=== PATIENT | female | born 1960 | race Asian ===

== ENCOUNTER → 2016-10-03 | Outpatient (CLI) | payer OTHER ==
[~2016-10-03] MED LIST: /BACL20TA; /LANS30GR; /ONDA4TA PO; ACYC400T PO; ADV250INH INH; ALBU17IN INH; AMIT10TA2 PO; AMOX500C; BACL10TA2 OR; BACL10TA2 PO; BENA25CA PO; BLACK COHASH PO; CALCIUM PO; CARA1TAB2 PO; Cranberry PO; DIAZ5TAB; DICY20TA11 PO; ESTR1TAB OR; EXCETAB80 PO; FIORCAP3 OR; FIORCAP7 PO; FLEX10TA2 PO; GINKGO BILOBA OR; KLS75TAB OR; L-LYSINE PO; LUTE6TAB PO; LYRI150C; LYRI200C; LYRI75CA PO; MAXA10TA20 PO; MAXA5TAB10 PO; MELOPOW; META48.54 PO; META800T82 PO; MONT10TA2 PO; MULTIVIT PO; NEXI20CA; OMEP40CA2 PO; OXYC10TA56; Omega 3 PO; PANT40TA2 PO; PERC5TAB8 OR; PHEN 25 PO; PREG100CA OR; PROM25TA PO; RELPAX; RELPAX OR; SAVELLA OR; SOMA350T OR; SUMA100T2 PO; TIZA2TA PO; TIZA2TAB3 PO; TIZA4TAB OR; TOPA25TA PO; TOPI25TA2 OR; TRAM50TA2; TRAM50TA2 OR; TRAM50TA2 PO; TRAZ50TA4 PO; TRIXAICIN TOP; ULTR50TA PO; ULTRTA OR; VALI5TAB PO; VICO5TAB OR; VIIB10TA PO; VIT D 2000 PO; VITA500019 PO; VITAMIN D PO; VITAMIN D50000 UNT; VOLT1GEL TOP; ZONI25CA2 PO; ZYRT10CA PO; [UNRECOGNIZED DRUG - CODE]; estrace cream EXT; imitrex PO; relpax PO
--- NOTE | 2016-10-10 01:36 | ECWPNPC ---
PATIENT NAME: DELIA BLOUNT : 1960 GENDER: FEMALE VISIT DATE: 10/03/2016 DISCHARGE DATE: 10/03/16 1532 VISIT LOCKED DATE TIME: PHYSICIAN: GILBERTO MEDINA RESOURCE: GILBERTO MEDINA REASON FOR APPOINTMENT 1. FOLLOW UP- HISTORY OF PRESENT ILLNESS HISTORY OF PRESENT ILLNESS: PAIN THE PATIENT DESCRIBES THE PAIN... 56 YEAR OLD FEMALE PATIENT WITH HISTORY OF CHRONIC NECK, HEADACHES, RIGHT ARM, AND RIGHT WRIST PAIN. PATIENT DESCRIBES THE PAIN ACHING, BURNING, SHARP, STABBING, TENDER, THROBBING, SORE, SHOOTING, AND HAVING IT ALL THE TIME WITH A PAIN SCORE OF 6-7/10. 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 PATIENT INJURED HER UPPER EXTREMITIES DUE TO THE REPETITIOUS MOVEMENT NEEDED WITH THE MACHINERY IN ACCORDANCE WITH HER JOB DUTIES AND RESPONSIBILITIES. PATIENT INDICATES THAT MOVING HER ARMS TOO MUCH AND/OR TOO FAST GREATLY INCREASES HER PAIN LEVELS. PATIENT REPORTS THAT HER HEADACHES ARE BEGINNING TO GET WORST. PATIENT REPORTS THAT SHE HAS MUSCLE SPASM IN THE NECK AREA AND TAKING DIAZEPAM GREATLY HELPS WITH SEVERE SPASMS. PATIENT STATES THAT LYRICA GREATLY HELPS WITH INCREASING HER MOBILITY AND FUNCTIONALITY. PATIENT REPORTS THAT HER RIGHT SHOULDER FEELS LIKE ITS ON FIRE. PATIENT REPORTS THAT SHE IS TERRIFIED TO SLEEP AT NIGHT LAYING DOWN THE WRONG WAY WILL INCREASE HER PAIN SEVERELY. PATIENT STATES THAT MOVING HER NECK TO FAST INCREASES HER PAIN. PATIENT REPORTS THAT SHE HAS TRIED PHYSICAL THERAPY IN THE PAST AND IT DID NOT WORK REALLY WELL. PATIENT DENIES UNEXPLAINABLE WEIGHT LOSS, FEVER, CHILLS, NEW CHANGES ON HER URINARY OR BOWEL CONTROL. FALL RISK SCREENING: SCREENING :NO FALLS IN THE PAST YEAR CURRENT MEDICATIONS TAKING PRILOSEC 40 MG CAPSULE DELAYED RELEASE 1 CAPSULE ORALLY BID TAKING ACYCLOVIR 400 MG TABLET 1 TABLET ORALLY TWICE A DAY PRN, NOTES: WTW TAKING ESTRACE 1 MG TABLET 1 TABLET ORALLY ONCE DAILY, NOTES: WTW TAKING ESTRACE 0.1 MG/GM CREAM 0.5 GM VAGINAL TWICE A WEEK, NOTES: WTW TAKING ALBUTEROL SULFATE HFA 108 (90 BASE) MCG/ACT AEROSOL SOLUTION 2 PUFFS NEEDED INHALATION EVERY 4 HRS TAKING DULERA 100 MCG/5MCG POWDER 1 PUFF INHALED BID TAKING OMEGA 3 1000 MG CAPSULE 1 CAPSULE ORALLY ONCE A DAY TAKING LUTEIN VISION BLEND CAPSULE ORALLY TAKING VITAMIN D3 5000 UNITS CAPSULE 1 CAPSULE ORALLY EVERY 3 DAYS, NOTES: EVERY 3 DAYS TAKING SUCRALFATE 1 GM TABLET 1 TABLET ORALLY BID QAC TAKING SUMATRIPTAN SUCCINATE 100 MG TABLET 1 TABLET NEEDED ONE TIME ORALLY TAKE AT ONSET OF MIGRAINE, MAY REPEAT TIMES ONE IN 2 HOURS IF NEEDED. MDD=2, NOTES: 1-2 TIMES PER MONTH, PAIN CLINIC TAKING BENTYL 10 MG CAPSULE 1 CAPSULE ORALLY FOUR TIMES A DAY PRN TAKING CYCLOBENZAPRINE HCL 10 MG TABLET 1 TABLET ORALLY THREE TIMES A DAY NEEDED TAKING TRAMADOL HCL 50 MG TABLET 1 TAB ORALLY Q 6 HRS PRN PAIN MDD=4, NOTES: PAIN CLINIC TAKING DIAZEPAM 5 MG TABLET 1/2 TABLET ORALLY EVERY 8 HOURS PRN SEVERE SPASM MDD=3 TAKING LYRICA 150 MG CAPSULE 1 CAPSULE ORALLY BID TAKING PROTONIX 40 MG TAB TAKE ONE TABLET BY MOUTH TWICE A DAY NOT-TAKING SINGULAIR 10 MG TABLET 1 TABLET IN THE EVENING ORALLY AT NIGHT TIME NOT-TAKING ORPHENADRINE CITRATE CR 100 MG TAB 1 TAB PO BID, NOTES: NEUROSURGEON MEDICATION LIST REVIEWED AND RECONCILED WITH THE PATIENT PAST MEDICAL HISTORY ESOPHAGEAL REFLUX ASTHMA MIGRAINE HEADACHE ARTHRITIS HERPES/1995 ABNORMAL PAP SMEAR/SEVERAL JOEL 3 W/CRYO (DR. 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 PATH REPORT: FRAGMENTS OF COLONIC MUCOSA WITH INCREASED LYMPHOPLASMA INFILTRATES OF LAMINA PROPRIA 01/2014 ANTERIOR CERVICAL DISCECTOMY AND FUSION (ACDF) BY DR. NUSRAT THOMPSON, [facility] 06/04/15 FAMILY HISTORY NO FAMILY HISTORY DOCUMENTED. SOCIAL HISTORY GENERAL: TOBACCO USE ARE YOU A:NONSMOKER LEARNING BARRIERS / SPECIAL NEEDS ORIENTED TO PLAN OF CARE: PATIENT, PAIN MANAGEMENT PATIENT, ORIENTED TO PLAN OF CARE: PATIENT, PAIN MANAGEMENT PATIENT. NEW PATIENT PAIN DIARY TODAY'S VISITNOTES FROM 0-10, WHAT LEVEL IS YOUR PAIN TODAY?0 PAIN CLINIC PFS, CLERGY, PUBLIC HEALTH REFERRALS PFS REFERRAL NEEDED?NO CLERGY REFERRAL NEEDED?NO PUBLIC HEALTH REFERRAL NEEDED?NO WAS THE PROVIDER NOTIFIED OF ANY PERTINENT INFO?NO PFS REFERRAL NEEDED?NO CLERGY REFERRAL NEEDED?NO PUBLIC HEALTH REFERRAL NEEDED?NO WAS THE PROVIDER NOTIFIED OF ANY PERTINENT INFO?NO USED TO SMOKE FOR OVER 20 YRS ON/OFF WITH 3 CIGS/DAY. HOSPITALIZATION/MAJOR DIAGNOSTIC PROCEDURE ACDF SURGERY, [facility] /15-06/07/15 REVIEW OF SYSTEMS CONSTITUTIONAL: ANY CHANGE IN YOUR MEDICAL CONDITION? NO . CHILLS NO . FEVER NO . INFECTION: DO YOU HAVE NEW INFECTIONS? NO . DO YOU HAVE HISTORY OF MRSA? NO . MUSCULOSKELETAL: ANY NEW PATTERNS OF PAIN OR NUMBNESS? NO . GASTROENTEROLOGY: ANY NEW CHANGE IN BOWEL CONTROL? NO . GENITOURINARY: ANY NEW CHANGE IN BLADDER CONTROL? NO . IS THERE A CHANCE YOU COULD BE ? NO . HEMATOLOGY/LYMPH: DO YOU TAKE ANY BLOOD THINNERS? (FOR EXAMPLE- COUMADIN, PLAVIX, AGGRENOX, PLATEL, PRADAXA, OR XARELTO) NO . WHEN WAS YOUR LAST DOSE? DATE: TIME: . NEUROLOGY: HAVE YOU FALLEN IN THE PAST 6 MONTHS? YES, PT WAS HEADING TO DR OFFICE NEAR [facility] WALKING TO DR OFFICE AND FELL IN PARKING LOT, SCRAPED KNEE AND ENDED UP WITH INFECTION. PRIMARY DOCTOR AWARE OF FALL AND KNEE AND INFECTION. . ANY NEW EXTREMITY NUMBNESS OR WEAKNESS? NO . CARDIOLOGY: DO YOU HAVE A PACEMAKER OR DEFIBRILLATOR? NO . RESPIRATORY: HAVE YOU BEEN SICK IN THE PAST WEEK? NO . FEVER NO . FLU LIKE SYMPTOMS? NO . COUGH NO . INTEGUMENTARY: DO YOU HAVE ANY RASHES OR OPEN SORES? NO . ALLERGIC/IMMUNO: ARE YOU ALLERGIC TO SHELLFISH OR IV DYE? NO . ANY NEW ALLERGIES? NO . PSYCHIATRIC: DO YOU HAVE THOUGHTS OF HURTING YOURSELF OR SOMEONE ELSE? NO . ARE YOU ABUSED, NEGLECTED, OR IN AN UNSAFE ENVIRONMENT? NO . ENDOCRINOLOGY: ARE YOU DIABETIC? NO . OTHER: DO YOU NEED ANY PRESCRIPTIONS? NO . IF YES, PLEASE LIST: ____ . ANY NEW PROBLEMS WITH YOUR MEDICATIONS? NO . WHEN DID YOU LAST EAT? ____ . WHEN DID YOU LAST DRINK? ____ . WHAT DID YOU LAST DRINK? ____ . NAME OF PERSON DRIVING YOU HOME? ____ . DO YOU HAVE ANY OTHER QUESTIONS OR CONCERNS NO . REVIEWED BY: PROVIDER: GILBERTO MEDINA MD . VITAL SIGNS WT 158 LBS, HT 60 IN, BMI 30.85 INDEX, BP 113/65 MM HG, HR 78 /MIN, RR 16 /MIN, TEMP 97.6 F, OXYGEN SAT % 96, SAFE IN ENV? (Y/N) Y, NA INITIALS TL 1356, REVIEWED BY: RANDEE. EXAMINATION : PATIENT IS ALERT O X 3 AND COOPERATIVE. PATIENT IS ABLE TO ABDUCT HER UPPER EXTREMITIES TO 90 DEGREES. HAND DETENTION DEPUTY OF THE RIGHT IS WEAKER COMPARED TO THE LEFT. PATIENT'S RIGHT ARE IS WEAKER AT FLEXION AND EXTENSION. THERE IS TENDERNESS IN THE CERVICAL AND RIGHT SHOULDER AREA. PATIENT IS ABLE TO EXTEND HER NECK TO 5 DEGREES AND FLEX AT 20 DEGREES. PATIENT IS ABLE TO MOVE HER HEAD TO THE LEFT AT 45 DEGREES AND TO THE RIGHT AT 10 DEGREES. MRI OF THE CERVICAL SPINE DONE ON 06/08/2014 SHOWS A POST C5-C6 ANTERIOR SPINAL FUSION. THERE IS A DISC PROTRUSION AT C2-C3. THERE IS SPONDYLOSIS AT C2-C3, C4-C5, AND C6-C7. ASSESSMENTS CERVICAL POST-LAMINECTOMY SYNDROME - M96.1 (PRIMARY) CERVICALGIA - M54.2 MYALGIA - M79.1 TREATMENT CERVICAL POST-LAMINECTOMY SYNDROME REFILL CYCLOBENZAPRINE HCL TABLET, 10 MG, 1 TABLET, ORALLY, THREE TIMES A DAY NEEDED, 30 DAY(S), 90, REFILLS 5 REFILL TRAMADOL HCL TABLET, 50 MG, 1 TAB, ORALLY, Q 6 HRS PRN PAIN MDD=4, 30 DAY(S), 120, REFILLS 5, NOTES: PAIN CLINIC REFILL LYRICA CAPSULE, 150 MG, 1 CAPSULE, ORALLY, BID, 30 DAYS, 60, REFILLS 5 REFILL DIAZEPAM TABLET, 5 MG, 1/2 TABLET, ORALLY, EVERY 8 HOURS PRN SEVERE SPASM MDD=3, 30 DAY(S), 10, REFILLS 0 REFILL SUMATRIPTAN SUCCINATE TABLET, 100 MG, 1 TABLET NEEDED ONE TIME, ORALLY, TAKE AT ONSET OF MIGRAINE, MAY REPEAT TIMES ONE IN 2 HOURS IF NEEDED. MDD=2, 30 DAY(S), 9, REFILLS 5, NOTES: 1-2 TIMES PER MONTH, PAIN CLINIC START SOMA TABLET, 350 MG, 1 TABLET NEEDED, ORALLY, DAILY NEEDED FOR SPASMS AND PAIN MDD1, 30 DAY(S), 15, REFILLS 0 NOTES: WE DISCUSSED SEVERAL ISSUES WITH MS. BLOUNT'S PAIN MANAGEMENT CASE. AT THIS TIME THE PATIENT WILL CONTINUE WITH THE SAME MEDICATION REGIMEN BEFORE, AND WILL ALSO TRY SOMA TO SEE IF THE MEDICATION WILL HELP WITH HER SEVERE PAIN AND SPASMS. I DISCUSSED WITH THE PATIENT THAT SHE IS A GOOD CANDIDATE FOR A TRIGGER POINT INJECTION, WE DISCUSSED THE RISK, ALTERNATIVES, AND BENEFITS AND THE PATIENT WOULD LIKE TO PROCEED. PATIENT WILL BE BOOKED PENDING APPROVAL FOR THE TPI. I DISCUSSES WITH THE PATIENT THAT I DO NOT DO REFILLS ON THE PATIENT AND IT IS IMPORTANT TO COME TO EVERY APPOINTMENT. PATIENT TO FOLLOW UP WITH ME IN 4 WEEKS. INSTRUCTIONS WERE GIVEN, QUESTIONS WERE ANSWERED, PATIENT REPORTS UNDERSTANDING AND AGREES WITH THE PLAN. I, MINDY SPARKS, DOCUMENTED THE ABOVE INFORMATION ACTING A SCRIBE FOR DR. MEDINA. I HAVE REVIEWED THE ABOVE DOCUMENT, WRITTEN BY MINDY SPARKS SCRIBE AND I VERIFY THAT IT IS ACCURATE. PROCEDURE CODES FA211 ESTABILISHED PATIENT [facility] CHARGE G8730 PAIN ASSESS POS TOOL F/U PLAN DOC G8427 DOC MEDS VERIFIED W/PT OR RE FOLLOW UP 4 WEEKS ELECTRONICALLY SIGNED BY GILBERTO MEDINA MD ON 10/09/2016 AT 08:50 PM EST DISCLAIMER : THIS IS A VISIT SUMMARY EXTRACTED FROM THE [employer] CHART. IT IS NOT A COPY OF THE [employer] PROGRESS NOTE. MTDRafita
== END ==
LOC: M PAIN 14:00
PROVIDERS: ATTEND Anesthesiology
DX: Z09 Encounter for follow-up examination after completed treatment for conditions other than malignant neoplasm (principal); G89.29 Other chronic pain; M96.1 Postlaminectomy syndrome, not elsewhere classified; M54.2 Cervicalgia; M79.7 Fibromyalgia; K21.9 Gastro-esophageal reflux disease without esophagitis; J45.909 Unspecified asthma, uncomplicated; G43.909 Migraine, unspecified, not intractable, without status migrainosus; M19.90 Unspecified osteoarthritis, unspecified site; B00.9 Herpesviral infection, unspecified; H40.9 Unspecified glaucoma; M47.812 Spondylosis without myelopathy or radiculopathy, cervical region; F32.9 Major depressive disorder, single episode, unspecified; Z79.890 Hormone replacement therapy; Z91.013 Allergy to seafood; Z91.040 Latex allergy status; Z88.1 Allergy status to other antibiotic agents; Z88.8 Allergy status to other drugs, medicaments and biological substances; Z79.891 Long term (current) use of opiate analgesic; Z79.899 Other long term (current) drug therapy

== ENCOUNTER → 2016-11-15 | Outpatient (CLI) | payer OTHER ==
[~2016-11-15] VITALS: Ht 154.9 cm; Wt 70.3 kg
[~2016-11-15] MED LIST changes: +ALBU83IN INH; +CYCL10TA PO; +DULE100A INH; +FLAX1300 PO; +LIDOCAINE 2% INJ 100 MG/5 ML SDV (FOR ANES.) As Ordered ONE; +LUTE10TA PO; +MULT1TAB18 PO; +NS 1,000 ML IV SCH; +PROPOFOL 200 MG/20 ML VIAL As Ordered ONE; +VITA2000 PO
--- NOTE | 2016-11-15 12:01 | ROOR ---
Patient Name: Kylie Andres Procedure Date: 11/15/2016 11:46 AM Date of : 1960 Age: 56 Room: [facility] Gender: Female Note Status: Finalized Procedure: Upper GI endoscopy + Hayes Ph Probe Placement Indications: Heartburn, Failure to respond to medical treatment Providers: Bryce Lynn MD Referring MD: Chyna Crawford [facility] Requesting Provider: Medicines: Monitored Anesthesia Care Complications: No immediate complications. Procedure: Pre-Anesthesia Assessment: - The heart rate, respiratory rate, oxygen saturations, blood pressure, adequacy of pulmonary ventilation, and response to care were monitored throughout the procedure. The Endoscope was introduced through the mouth, and advanced to the second part of duodenum. The upper GI endoscopy was accomplished without difficulty. The patient tolerated the procedure well. Findings: The Z-line was regular and was found 35 cm from the incisors. The exam of the esophagus was otherwise normal. No other significant abnormalities were identified in a careful examination of the stomach. The exam of the duodenum was otherwise normal. The HAYES capsule with delivery system was introduced through the mouth and advanced into the esophagus, such that the HAYES pH capsule was positioned 29 cm from the incisors. The HAYES pH capsule was then deployed and attached to the esophageal mucosa. The delivery system was then withdrawn. Endoscopy was utilized for probe placement and diagnostic evaluation. The exam was otherwise without abnormality. Impression: - Z-line regular, 35 cm from the incisors. - The examination was otherwise normal. - The HAYES pH capsule was deployed. - No specimens collected. - The examination was otherwise normal. Recommendation: - Patient has a contact number available for emergencies. The signs and symptoms of potential delayed complications were discussed with the patient. Return to normal activities tomorrow. Written discharge instructions were provided to the patient. - Resume regular diet. - Discharge patient to home. - Continue present medications. - Follow an antireflux regimen. - Return to referring physician. - The findings and recommendations were discussed with the patient's family. Bryce Lynn MD Bryce Lynn MD 11/15/2016 12:00:39 PM This report has been signed electronically. Number of Addenda: 0 Note Initiated On: 11/15/2016 11:46 AM Estimated Blood Loss: Estimated blood loss: none.
[2016-11-15 12:35] VITALS: BP 114/67
== END | disposition home or self-care (01) ==
LOC: M OPP 11:08
PROVIDERS: ATTEND Internal Medicine Gastroenterology
DX: R12 Heartburn (principal); K58.9 Irritable bowel syndrome, unspecified; M19.90 Unspecified osteoarthritis, unspecified site; M79.7 Fibromyalgia; J45.909 Unspecified asthma, uncomplicated; G47.30 Sleep apnea, unspecified; B00.9 Herpesviral infection, unspecified; H40.9 Unspecified glaucoma; Z79.899 Other long term (current) drug therapy; Z79.52 Long term (current) use of systemic steroids; Z88.8 Allergy status to other drugs, medicaments and biological substances; Z88.1 Allergy status to other antibiotic agents; Z88.5 Allergy status to narcotic agent; Z91.013 Allergy to seafood; Z91.040 Latex allergy status; Z87.891 Personal history of nicotine dependence

== ENCOUNTER → 2016-11-21 | Outpatient (CLI) | payer OTHER ==
[~2016-11-21] MED LIST changes: -LIDOCAINE 2% INJ 100 MG/5 ML SDV (FOR ANES.) As Ordered ONE; -NS 1,000 ML IV SCH; +ORPH-8 PO; +PEPC1TAB4 PO; +PRED20TA PO; -PROPOFOL 200 MG/20 ML VIAL As Ordered ONE; +VITA1CAP2 PO
--- NOTE | 2016-11-28 01:30 | ECWPNPC ---
PATIENT NAME: DELIA BLOUNT : 1960 GENDER: FEMALE VISIT DATE: 11/21/2016 DISCHARGE DATE: 11/21/16 1456 VISIT LOCKED DATE TIME: PHYSICIAN: GILBERTO MEDINA RESOURCE: GILBERTO MEDINA REASON FOR APPOINTMENT 1. W/C NECK AND R WRIST HISTORY OF PRESENT ILLNESS GENERAL: 56 YEAR OLD FEMALE PATIENT WITH HISTORY OF CHRONIC NECK, HEADACHES, RIGHT ARM, AND RIGHT WRIST PAIN. PATIENT DESCRIBES THE PAIN ACHING, BURNING, TENDER, THROBBING, SORE, AND HAVING IT ALL THE TIME, WITH A SHARP, STABBING, AND SHOOTING PAIN COMING AND GOING WITH A PAIN SCORE OF 6-7/10 ON TODAY'S VISIT.. 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 PATIENT INJURED HER UPPER EXTREMITIES DUE TO THE REPETITIOUS MOVEMENT NEEDED WITH THE MACHINERY IN ACCORDANCE WITH HER JOB DUTIES AND RESPONSIBILITIES. PATIENT STATES THAT SHE HAS RADIATING PAIN FROM HER NECK DOWN TO BOTH ARMS. PATIENT REPORTS THAT SHE IS WAKING UP EVERY 40 TO 50 MINUTES DUE TO THE PAIN AND SPASMS IN THE NECK. PATIENT REPORTS THAT SHE IS WAKING UP EXHAUSTED IN THE MORNING DUE TO THE LACK OF SLEEP. PATIENT STATES THAT SHE IS GETTING HEADACHES EVERYDAY AND SOMETIMES CAUSES NAUSEA, DIZZINESS, AND THE LIGHT HURTS HER EYES. PATIENT STATES THAT WHEN SHE DOES GET A MIGRAINE TAKING SUMATRIPTAN WILL SOMETIMES HELP TO KNOCK IT DOWN TO A HEADACHE. PATIENT STATES THAT SHE IS TAKING LYRICA AND TRAMADOL FOR THE PAIN. PATIENT REPORTS THAT TAKING DIAZEPAM APPEARS TO ONLY HELP DURING THE DAY AND NOT AT NIGHT. PATIENT IS UNSURE HOW CYCLOBENZAPRINE IS WORKING FOR HER. PATIENT REPORTS THAT SHE HAS TRIED PHYSICAL THERAPY IN THE [place]ASS AND DID NOT FEEL OR SEE AND IMPROVEMENT IN HER QUALITY OF LIFE. PATIENT DENIES UNEXPLAINABLE WEIGHT LOSS, FEVER, CHILLS, NEW CHANGES ON HER URINARY OR BOWEL CONTROL. HISTORY OF PRESENT ILLNESS: PAIN THE PATIENT DESCRIBES THE PAIN... FALL RISK SCREENING: SCREENING :NO FALLS IN THE PAST YEAR CURRENT MEDICATIONS TAKING CYCLOBENZAPRINE HCL 10 MG TABLET 1 TABLET ORALLY THREE TIMES A DAY NEEDED TAKING TRAMADOL HCL 50 MG TABLET 1 TAB ORALLY Q 6 HRS PRN PAIN MDD=4, NOTES: PAIN CLINIC TAKING LYRICA 150 MG CAPSULE 1 CAPSULE ORALLY BID TAKING DIAZEPAM 5 MG TABLET 1/2 TABLET ORALLY EVERY 8 HOURS PRN SEVERE SPASM MDD=3 TAKING SUMATRIPTAN SUCCINATE 100 MG TABLET 1 TABLET NEEDED ONE TIME ORALLY TAKE AT ONSET OF MIGRAINE, MAY REPEAT TIMES ONE IN 2 HOURS IF NEEDED. MDD=2, NOTES: 1-2 TIMES PER MONTH, PAIN CLINIC TAKING ACYCLOVIR 400 MG TABLET 1 TABLET ORALLY TWICE A DAY PRN, NOTES: WTW TAKING ESTRACE 1 MG TABLET 1 TABLET ORALLY ONCE DAILY, NOTES: WTW TAKING ESTRACE 0.1 MG/GM CREAM 0.5 GM VAGINAL TWICE A WEEK, NOTES: WTW TAKING ALBUTEROL SULFATE HFA 108 (90 BASE) MCG/ACT AEROSOL SOLUTION 2 PUFFS NEEDED INHALATION EVERY 4 HRS TAKING DULERA 100 MCG/5MCG POWDER 1 PUFF INHALED BID TAKING OMEGA 3 1000 MG CAPSULE 1 CAPSULE ORALLY ONCE A DAY TAKING LUTEIN VISION BLEND CAPSULE ORALLY TAKING VITAMIN D3 5000 UNITS CAPSULE 1 CAPSULE ORALLY EVERY 3 DAYS, NOTES: EVERY 3 DAYS TAKING BENTYL 10 MG CAPSULE 1 CAPSULE ORALLY FOUR TIMES A DAY PRN TAKING PROTONIX 40 MG TAB TAKE ONE TABLET BY MOUTH TWICE A DAY TAKING SUCRALFATE 1 GRAM TAB TAKE ONE TABLET BY MOUTH TWICE A DAY BEFORE MEALS DISCONTINUED SOMA 350 MG TABLET 1 TABLET NEEDED ORALLY DAILY NEEDED FOR SPASMS AND PAIN MDD1 DISCONTINUED PRILOSEC 40 MG CAPSULE DELAYED RELEASE 1 CAPSULE ORALLY BID DISCONTINUED SUCRALFATE 1 GM TABLET 1 TABLET ORALLY BID QAC DISCONTINUED SINGULAIR 10 MG TABLET 1 TABLET IN THE EVENING ORALLY AT NIGHT TIME DISCONTINUED ORPHENADRINE CITRATE CR 100 MG TAB 1 TAB PO BID, NOTES: NEUROSURGEON MEDICATION LIST REVIEWED AND RECONCILED WITH THE PATIENT PAST MEDICAL HISTORY ESOPHAGEAL REFLUX ASTHMA MIGRAINE HEADACHE ARTHRITIS ABNORMAL PAP SMEAR/SEVERAL JOEL 3 W/CRYO (DR. 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 PATH REPORT: FRAGMENTS OF COLONIC MUCOSA WITH INCREASED LYMPHOPLASMA INFILTRATES OF LAMINA PROPRIA 01/2014 ANTERIOR CERVICAL DISCECTOMY AND FUSION (ACDF) BY DR. NUSRAT THOMPSON, [facility] 06/04/15 FAMILY HISTORY NO FAMILY HISTORY DOCUMENTED. SOCIAL HISTORY GENERAL: TOBACCO USE ARE YOU A:NONSMOKER LEARNING BARRIERS / SPECIAL NEEDS ORIENTED TO PLAN OF CARE: PATIENT, PAIN MANAGEMENT PATIENT, ORIENTED TO PLAN OF CARE: PATIENT, PAIN MANAGEMENT PATIENT. NEW PATIENT PAIN DIARY TODAY'S VISITNOTES FROM 0-10, WHAT LEVEL IS YOUR PAIN TODAY?0 PAIN CLINIC PFS, CLERGY, PUBLIC HEALTH REFERRALS PFS REFERRAL NEEDED?NO CLERGY REFERRAL NEEDED?NO PUBLIC HEALTH REFERRAL NEEDED?NO WAS THE PROVIDER NOTIFIED OF ANY PERTINENT INFO?NO PFS REFERRAL NEEDED?NO CLERGY REFERRAL NEEDED?NO PUBLIC HEALTH REFERRAL NEEDED?NO WAS THE PROVIDER NOTIFIED OF ANY PERTINENT INFO?NO USED TO SMOKE FOR OVER 20 YRS ON/OFF WITH 3 CIGS/DAY. HOSPITALIZATION/MAJOR DIAGNOSTIC PROCEDURE ACDF SURGERY, [facility] 925/15-06/07/15 REVIEW OF SYSTEMS CONSTITUTIONAL: ANY CHANGE IN YOUR MEDICAL CONDITION? NO . CHILLS NO . FEVER NO . INFECTION: DO YOU HAVE NEW INFECTIONS? NO . DO YOU HAVE HISTORY OF MRSA? NO . MUSCULOSKELETAL: ANY NEW PATTERNS OF PAIN OR NUMBNESS? NO . GASTROENTEROLOGY: ANY NEW CHANGE IN BOWEL CONTROL? NO . GENITOURINARY: ANY NEW CHANGE IN BLADDER CONTROL? NO . IS THERE A CHANCE YOU COULD BE ? NO . HEMATOLOGY/LYMPH: DO YOU TAKE ANY BLOOD THINNERS? (FOR EXAMPLE- COUMADIN, PLAVIX, AGGRENOX, PLATEL, PRADAXA, OR XARELTO) NO . WHEN WAS YOUR LAST DOSE? DATE: TIME: . NEUROLOGY: HAVE YOU FALLEN IN THE PAST 6 MONTHS? NO . ANY NEW EXTREMITY NUMBNESS OR WEAKNESS? NO . CARDIOLOGY: DO YOU HAVE A PACEMAKER OR DEFIBRILLATOR? NO . RESPIRATORY: HAVE YOU BEEN SICK IN THE PAST WEEK? NO . FEVER NO . FLU LIKE SYMPTOMS? NO . COUGH NO . INTEGUMENTARY: DO YOU HAVE ANY RASHES OR OPEN SORES? NO . ALLERGIC/IMMUNO: ARE YOU ALLERGIC TO SHELLFISH OR IV DYE? NO . ANY NEW ALLERGIES? NO . PSYCHIATRIC: DO YOU HAVE THOUGHTS OF HURTING YOURSELF OR SOMEONE ELSE? NO . ARE YOU ABUSED, NEGLECTED, OR IN AN UNSAFE ENVIRONMENT? NO . ENDOCRINOLOGY: ARE YOU DIABETIC? NO . OTHER: DO YOU NEED ANY PRESCRIPTIONS? YES . IF YES, PLEASE LIST: TRAMADOL, DIAZEPAM . ANY NEW PROBLEMS WITH YOUR MEDICATIONS? NO . WHEN DID YOU LAST EAT? ____ . WHEN DID YOU LAST DRINK? ____ . WHAT DID YOU LAST DRINK? ____ . NAME OF PERSON DRIVING YOU HOME? ____ . DO YOU HAVE ANY OTHER QUESTIONS OR CONCERNS NO . REVIEWED BY: PROVIDER: GILBERTO MEDINA MD . VITAL SIGNS WT 166.6 LBS, HT 60 IN, BMI 32.53 INDEX, BP 113/67 MM HG, HR 69 /MIN, RR 18 /MIN, TEMP 99.3 F, OXYGEN SAT % 94, NA INITIALS [id number], REVIEWED BY: CM. EXAMINATION GENERAL: PATIENT IS ALERT O X 3 AND COOPERATIVE. PATIENT IS ABLE TO EXTEND HER NECK TO 5 DEGREES WITH RESTRICTION OF MOVEMENT AND FLEX TO 30 DEGREES. PATIENT IS ABLE TO ROTATE HER NECK TO THE RIGHT AT 10 DEGREES AND TO THE LEFT AT 10 DEGREES. PATIENT IS ONLY ABLE TO ABDUCT HER UPPER EXTREMITIES TO SHOULDER LEVEL. THERE IS CERVICAL TENDERNESS WITH BANDS OF TISSUES, RESTRICTION OF MOVEMENT, AND PRESENCE OF TRIGGER POINTS. MRI OF THE CERVICAL SPINE DONE ON 06-08-2014 SHOWS CERVICAL SPONDYLOSIS AND FACET ARTHROPATHY. ASSESSMENTS MYALGIA - M79.1 (PRIMARY) CERVICAL POST-LAMINECTOMY SYNDROME - M96.1 CERVICALGIA - M54.2 TREATMENT MYALGIA NOTES: WE DISCUSSED SEVERAL ISSUES WITH MS. BLOUNT'S PAIN MANAGEMENT CASE. I WAS WITH THE PATIENT MORE THAN 30 MINUTES IN TODAY'S ENCOUNTER, MORE THAN HALF THE TIME WAS DEDICATED TO DISCUSSING ALTERNATIVES, COUNSELING, AND ENSURING THE PATIENT UNDERSTOOD HOW WE ARE PROCEEDING FORWARD WITH HER PAIN MANAGEMENT CASE. AT THIS TIME THE PATIENT WILL RECEIVE A REFILL OF DIAZEPAM THE PATIENT IS USING THIS MEDICATION FOR SEVERE SPASMS. AFTER EXAMINING THE PATIENT SHE IS A GOOD CANDIDATE FOR A TRIGGER POINT INJECTION. I DISCUSSED WITH THE PATIENT FROM THE LAST VISIT, I REQUESTED TPI BUT WORKERS COMP DENIED IT, BECAUSE WE ALSO NEEDS TO HAVE HER IN AN ACTIVE THERAPY PROGRAM. I INFORMED THE PATIENT THAT I WILL ALSO REQUEST FOR HER TO BEGIN PHYSICAL THERAPY WELL. PATIENT WILL HAVE PHYSICAL THERAPY FOR 6 WEEKS, 3 TIMES A WEEK. WE DISCUSSED THE RISK, BENEFITS, AND ALTERNATIVES AND THE PATIENT WOULD LIKE TO PROCEED. PATIENT WILL BE BOOKED FOR A TPI PENDING APPROVAL. DISCUSSED WITH THE PATIENT THAT IF THE TPI DOES NOT WORK, I WOULD LIKE TO TRY A RIGHT CERVICAL FACET BLOCK, DEPENDING ON THE X-RAY REVIEW, LEVELS C2-C4. PATIENT TO FOLLOW UP WITH ME IN 6 WEEKS. INSTRUCTIONS WERE GIVEN, QUESTIONS WERE ANSWERED, PATIENT REPORTS UNDERSTANDING AND AGREES WITH THE PLAN. I, MINDY SPARKS, DOCUMENTED THE ABOVE INFORMATION ACTING A SCRIBE FOR DR. MEDINA. I HAVE REVIEWED THE ABOVE DOCUMENT, WRITTEN BY MINDY SPARKS SCRIBE AND I VERIFY THAT IT IS ACCURATE. CERVICAL POST-LAMINECTOMY SYNDROME REFILL DIAZEPAM TABLET, 5 MG, 1/2 TABLET, ORALLY (CODE D FOR CHRONIC PAIN ), EVERY 8 HOURS PRN SEVERE SPASM MDD=1, 30 DAY(S), 20, REFILLS 0 PROCEDURES PN WORKMANS' COMP OPINION IN YOUR OPINION, WAS THE INCIDENT THAT THE PATIENT DESCRIBED THE COMPETENT MEDICAL CAUSE OF THIS INJURY/ILLNESS? YES ARE THE PATIENT'S COMPLAINTS CONSISTENT WITH HIS/HER HISTORY OF THE INJURY/ILLNESS? YES IS THE PATIENT'S HISTORY OF THE INJURY/ILLNESS CONSISTENT WITH YOUR OBJECTIVE FINDING? YES WHAT IS THE PERCENTAGE OF TEMPORARY IMPAIRMENT? TOTAL = 100% IS THE PATIENT WORKING? NO DOCTOR ON SITE: GILBERTO ESCOBAR MD PROCEDURE CODES FA211 ESTABILISHED PATIENT [facility] FACILITY CHARGE G8730 PAIN ASSESS POS TOOL F/U PLAN DOC G8427 DOC MEDS VERIFIED W/PT OR RE DISPOSITION & COMMUNICATION FOLLOW UP TPI PENDING APPROVAL ELECTRONICALLY SIGNED BY GILBERTO MEDINA MD ON 11/27/2016 AT 01:52 PM EDT DISCLAIMER : THIS IS A VISIT SUMMARY EXTRACTED FROM THE [employer] CHART. IT IS NOT A COPY OF THE [employer] PROGRESS NOTE. MTDD
== END ==
LOC: M PAIN 13:00
PROVIDERS: ATTEND Anesthesiology
DX: Z09 Encounter for follow-up examination after completed treatment for conditions other than malignant neoplasm (principal); G89.29 Other chronic pain; M79.1 Myalgia; M96.1 Postlaminectomy syndrome, not elsewhere classified; M54.2 Cervicalgia; G43.909 Migraine, unspecified, not intractable, without status migrainosus; K21.9 Gastro-esophageal reflux disease without esophagitis; J45.909 Unspecified asthma, uncomplicated; M19.90 Unspecified osteoarthritis, unspecified site; F32.9 Major depressive disorder, single episode, unspecified; Z91.018 Allergy to other foods; Z91.040 Latex allergy status; Z88.5 Allergy status to narcotic agent; Z88.8 Allergy status to other drugs, medicaments and biological substances; Z79.891 Long term (current) use of opiate analgesic; Z79.899 Other long term (current) drug therapy

== ENCOUNTER 2016-11-29 13:50 | Emergency (ER) | payer OTHER ==
[~2016-11-29] VITALS: Ht 154.9 cm; Wt 70.3 kg
[~2016-11-29 13:50] MED LIST changes: -ORPH-8 PO; -PEPC1TAB4 PO; -PRED20TA PO; -VITA1CAP2 PO
[2016-11-29] MEDS ORDERED: ORPH-8 PO (14:15)
[2016-11-29] MEDS ORDERED: VITA1CAP2 PO (14:15)
[2016-11-29] MEDS ORDERED: PEPC1TAB4 PO (16:45)
[2016-11-29] MEDS ORDERED: PRED20TA PO (16:45)
[2016-11-29 16:59] VITALS: BP 110/68
== END 2016-11-29 16:59 | disposition home or self-care (01) ==
LOC: M ED 15:34
DX: M54.12 Radiculopathy, cervical region (principal); M25.531 Pain in right wrist; M25.532 Pain in left wrist; K21.9 Gastro-esophageal reflux disease without esophagitis; K44.9 Diaphragmatic hernia without obstruction or gangrene; M79.7 Fibromyalgia; Z91.013 Allergy to seafood; Z88.8 Allergy status to other drugs, medicaments and biological substances; Z88.5 Allergy status to narcotic agent; Z88.1 Allergy status to other antibiotic agents; Z79.899 Other long term (current) drug therapy; Z79.51 Long term (current) use of inhaled steroids

== ENCOUNTER → 2016-12-04 | Outpatient (REF) | payer OTHER ==
[~2016-12-04] MED LIST changes: +ORPH-8 PO; +PEPC1TAB4 PO; +PRED20TA PO; +VITA1CAP2 PO
== END ==
LOC: M SFHCPLAZ 10:13
PROVIDERS: ATTEND Family Medicine
DX: K92.1 Melena (principal)

== ENCOUNTER 2016-12-07 13:43 | Outpatient (RCR) | payer OTHER | END 2016-12-08 | LOC: M OT 13:43 | PROVIDERS: ATTEND Family Medicine | DX: Z51.89 Encounter for other specified aftercare (principal); G56.03 Carpal tunnel syndrome, bilateral upper limbs ==

== ENCOUNTER → 2016-12-14 | Outpatient (CLI) | payer OTHER ==
--- NOTE | 2016-12-14 15:39 | REP ---
BILATERAL WRIST, EIGHT VIEWS: LEFT WRIST HISTORY: Left wrist pain. There is no acute fracture or dislocation. The joint spaces are normal in appearance. A small cyst is present in the greater multangular bone. IMPRESSION: There is no acute fracture or dislocation. RIGHT WRIST, FOUR VIEWS: There is no acute fracture or dislocation. The joint spaces are normal in appearance. IMPRESSION: There is no acute fracture or dislocation. Signed by Karl Courtney MD 12/14/2016 03:41 P
== END ==
LOC: M RAD 14:53
PROVIDERS: ATTEND Family Medicine
DX: M25.532 Pain in left wrist (principal)

== ENCOUNTER → 2017-01-03 | Outpatient (CLI) | payer OTHER ==
--- NOTE | 2017-01-08 00:48 | ECWPNPC ---
PATIENT NAME: DELIA BLOUNT : 1960 GENDER: FEMALE VISIT DATE: 01/03/2017 DISCHARGE DATE: 01/03/17 1551 VISIT LOCKED DATE TIME: PHYSICIAN: GILBERTO MEDINA RESOURCE: GILBERTO MEDINA REASON FOR APPOINTMENT 1. W/C NECK, VIEIRA, RT WRIST AND ARM PAIN HISTORY OF PRESENT ILLNESS HISTORY OF PRESENT ILLNESS: PAIN THE PATIENT DESCRIBES THE PAIN... 56 YEAR OLD MALE PATIENT WITH HISTORY OF CHRONIC NECK, RIGHT WRIST AND RIGHT ARM PAIN. PATIENT DESCRIBES THE PAIN ACHING, BURNING, SHARP, STABBING, TENDER, THROBBING, SORE, AND HAVING IT ALL THE TIME WITH A PAIN SCORE OF 6-7/10. 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 CURRENTLY THE PATIENT IS USING CYCLOBENZAPRINE, LYRICA AND DIAZEPAM AND STATES THAT THE MEDICATION KEEPS HER MOBILE AND FUNCTIONAL AND DECREASES HER PAIN. PATIENT HAS HAD TWO NECK SURGERIES. MRS. BLOUNT STATES THAT PHYSICAL THERAPY HAS NOT AIDED IN MOBILITY OR FUNCTIONALITY OR A DECREASES IN PAIN. MRS. BLOUNT STATES THAT TURNING HER HEAD OR MOVEMENT OF HER ARMS INCREASES THE PAIN IN THE NECK AND AT THIS TIME REST AND MEDICATION AIDS IN PAIN RELIEF. PATIENT REPORTS GETTING OVER 25 HEADACHES A MONTH, WITH SENSITIVITY TO LIGHT AND SOUND. PATIENT REPORTS TRYING NUMEROUS MEDICATIONS FOR THE HEADACHES WITH LITTLE TO NO RELIEF. PATIENT DENIES UNEXPLAINABLE WEIGHT LOSS, FEVER, CHILLS, NEW CHANGES ON HER URINARY OR BOWEL CONTROL. FALL RISK SCREENING: SCREENING :NO FALLS IN THE PAST YEAR CURRENT MEDICATIONS TAKING TRAMADOL HCL 50 MG TABLET 1 TAB ORALLY Q 6 HRS PRN PAIN MDD=4 TAKING DIAZEPAM 5 MG TABLET 1/2 TABLET ORALLY (CODE D FOR CHRONIC PAIN ) EVERY 8 HOURS PRN SEVERE SPASM MDD=1 TAKING CYCLOBENZAPRINE HCL 10 MG TABLET 1 TABLET ORALLY THREE TIMES A DAY NEEDED TAKING LYRICA 150 MG CAPSULE 1 CAPSULE ORALLY BID TAKING SUMATRIPTAN SUCCINATE 100 MG TABLET 1 TABLET NEEDED ONE TIME ORALLY TAKE AT ONSET OF MIGRAINE, MAY REPEAT TIMES ONE IN 2 HOURS IF NEEDED. MDD=2, NOTES: 1-2 TIMES PER MONTH, PAIN CLINIC TAKING ESTRACE 1 MG TABLET 1 TABLET ORALLY ONCE DAILY, NOTES: WTW TAKING ESTRACE 0.1 MG/GM CREAM 0.5 GM VAGINAL TWICE A WEEK, NOTES: WTW TAKING ALBUTEROL SULFATE HFA 108 (90 BASE) MCG/ACT AEROSOL SOLUTION 2 PUFFS NEEDED INHALATION EVERY 4 HRS TAKING DULERA 100 MCG/5MCG POWDER 1 PUFF INHALED BID TAKING OMEGA 3 1000 MG CAPSULE 1 CAPSULE ORALLY ONCE A DAY TAKING LUTEIN VISION BLEND CAPSULE ORALLY TAKING VITAMIN D3 5000 UNITS CAPSULE 1 CAPSULE ORALLY EVERY 3 DAYS, NOTES: EVERY 3 DAYS TAKING PROTONIX 40 MG TAB TAKE ONE TABLET BY MOUTH TWICE A DAY TAKING ASPIRIN 81 MG TABLET CHEWABLE 1 TABLET ORALLY ONCE A DAY NOT-TAKING FAMOTIDINE 20 MG TABLET 1 TABLET AT BEDTIME ORALLY ONCE A DAY NOT-TAKING NAPROXEN 500 MG TABLET 1 TABLET NEEDED ORALLY EVERY 12 HRS NOT-TAKING PREDNISONE 20 MG TABLET 1 TABLET ORALLY ONCE A DAY NOT-TAKING SUCRALFATE 1 GRAM TAB TAKE ONE TABLET BY MOUTH TWICE A DAY BEFORE MEALS NOT-TAKING ACYCLOVIR 400 MG TABLET 1 TABLET ORALLY THREE TIMES A DAY NOT-TAKING BENTYL 10 MG CAPSULE 1 CAPSULE ORALLY FOUR TIMES A DAY PRN MEDICATION LIST REVIEWED AND RECONCILED WITH THE PATIENT PAST MEDICAL HISTORY ESOPHAGEAL REFLUX ASTHMA MIGRAINE HEADACHE ARTHRITIS ABNORMAL PAP SMEAR/SEVERAL JOEL 3 W/CRYO (DR. 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 PATH REPORT: FRAGMENTS OF COLONIC MUCOSA WITH INCREASED LYMPHOPLASMA INFILTRATES OF LAMINA PROPRIA 01/2014 ANTERIOR CERVICAL DISCECTOMY AND FUSION (ACDF) BY DR. NUSRAT THOMPSON, [facility] 06/04/15 FAMILY HISTORY FATHER: ALIVE MOTHER: , ANEURYSM, OSTEOPOROSIS SIBLINGS: ALIVE, HEART DISEASE SON(S): ALIVE 1 BROTHER(S) , 2 SISTER(S) - HEALTHY. 2 SON(S) - HEALTHY. SOCIAL HISTORY GENERAL: PAIN CLINIC PFS, CLERGY, PUBLIC HEALTH REFERRALS CLERGY REFERRAL NEEDED?NO WAS THE PROVIDER NOTIFIED OF ANY PERTINENT INFO?NO PFS REFERRAL NEEDED?NO PUBLIC HEALTH REFERRAL NEEDED?NO PATIENT: ____. USED TO SMOKE FOR OVER 20 YRS ON/OFF WITH 3 CIGS/DAY. HOSPITALIZATION/MAJOR DIAGNOSTIC PROCEDURE ACDF SURGERY, [facility] /15-06/07/15 REVIEW OF SYSTEMS CONSTITUTIONAL: ANY CHANGE IN YOUR MEDICAL CONDITION? NO . CHILLS NO . FEVER NO . INFECTION: DO YOU HAVE NEW INFECTIONS? NO . DO YOU HAVE HISTORY OF MRSA? NO . MUSCULOSKELETAL: ANY NEW PATTERNS OF PAIN OR NUMBNESS? YES SHOOTING PAIN IN HANDS . GASTROENTEROLOGY: ANY NEW CHANGE IN BOWEL CONTROL? NO . GENITOURINARY: ANY NEW CHANGE IN BLADDER CONTROL? NO . IS THERE A CHANCE YOU COULD BE ? NO . HEMATOLOGY/LYMPH: DO YOU TAKE ANY BLOOD THINNERS? (FOR EXAMPLE- COUMADIN, PLAVIX, AGGRENOX, PLATEL, PRADAXA, OR XARELTO) NO . WHEN WAS YOUR LAST DOSE? DATE: TIME: . NEUROLOGY: HAVE YOU FALLEN IN THE PAST 6 MONTHS? NO . ANY NEW EXTREMITY NUMBNESS OR WEAKNESS? NO . CARDIOLOGY: DO YOU HAVE A PACEMAKER OR DEFIBRILLATOR? NO . RESPIRATORY: HAVE YOU BEEN SICK IN THE PAST WEEK? NO . FEVER NO . FLU LIKE SYMPTOMS? NO . COUGH NO . INTEGUMENTARY: DO YOU HAVE ANY RASHES OR OPEN SORES? NO . ALLERGIC/IMMUNO: ARE YOU ALLERGIC TO SHELLFISH OR IV DYE? NO . ANY NEW ALLERGIES? NO . PSYCHIATRIC: DO YOU HAVE THOUGHTS OF HURTING YOURSELF OR SOMEONE ELSE? NO . ARE YOU ABUSED, NEGLECTED, OR IN AN UNSAFE ENVIRONMENT? NO . ENDOCRINOLOGY: ARE YOU DIABETIC? NO . OTHER: DO YOU NEED ANY PRESCRIPTIONS? NO . IF YES, PLEASE LIST: ____ . ANY NEW PROBLEMS WITH YOUR MEDICATIONS? NO . WHEN DID YOU LAST EAT? ____ . WHEN DID YOU LAST DRINK? ____ . WHAT DID YOU LAST DRINK? ____ . NAME OF PERSON DRIVING YOU HOME? ____ . DO YOU HAVE ANY OTHER QUESTIONS OR CONCERNS NO . REVIEWED BY: PROVIDER: GILBERTO MEDINA MD . VITAL SIGNS WT 169.0 LBS, HT 60 IN, BMI 33.00 INDEX, BP 112/71 MM HG, HR 74 /MIN, RR 16 /MIN, TEMP 98.7 F, OXYGEN SAT % 96%, NA INITIALS TL 1331. EXAMINATION : PATIENT IS ALERT O X 3 AND COOPERATIVE. PATIENT IS ABLE TO EXTEND HER NECK TO 5 DEGREES WITH RESTRICTION OF MOVEMENT AND FLEX TO 30 DEGREES. PATIENT IS ABLE TO ROTATE HER NECK TO THE RIGHT AT 10 DEGREES AND TO THE LEFT AT 10 DEGREES. PATIENT IS ONLY ABLE TO ABDUCT HER UPPER EXTREMITIES TO SHOULDER LEVEL. THERE IS CERVICAL TENDERNESS WITH BANDS OF TISSUES, RESTRICTION OF MOVEMENT, AND PRESENCE OF TRIGGER POINTS. MRI OF THE CERVICAL SPINE DONE ON 06-08-2014 SHOWS CERVICAL SPONDYLOSIS AND FACET ARTHROPATHY. 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 MDD=2, 30 DAY(S), 9, REFILLS 2, NOTES: 1-2 TIMES PER MONTH, PAIN CLINIC REFILL DIAZEPAM TABLET, 5 MG, 1/2 TABLET, ORALLY (CODE D FOR CHRONIC PAIN ), EVERY 8 HOURS PRN SEVERE SPASM MDD=1, 30 DAY(S), 20, REFILLS 0 NOTES: WE DISCUSSED SEVERAL ISSUES WITH MRS. BLOUNT'S PAIN MANAGEMENT CASE. AT THIS TIME THE PATIENT WILL CONTINUE WITH THE SAME MEDICATION REGIME BEFORE. PATIENT WILL CONTINUE TO USE TRAMADOL FOR THE SOMATIC PAIN, LYRICA FOR THE NEUROPATHIC PAIN, CYCLOBENZAPRINE FOR THE SEVERE SPASTICITY, SUMATRIPTAN FOR THE CHRONIC MIGRAINES, AND DIAZEPAM FOR THE MUSCLE SPASMS. PATIENT DENIES ABUSE OF ANY MEDICATION, DENIES USE OF ILLEGAL SUBSTANCES, AND STATES THAT SHE IS ONLY USING THE MEDICATION FOR PAIN MANAGEMENT. URINE TOXICOLOGY REPORT DONE ON 11/13/2009 SHOWS CONSISTENT RESULTS WITH THE PATIENTS MEDICATION LIST. DUE TO THE PATIENT SEVERE MIGRAINES I WOULD LIKE TO MOVE FORWARD WITH BOTOX INJECTIONS. PATIENT HAS TRIED MULTIPLE MEDICATIONS THAT DO NOT AID IN PAIN RELIEF. WE DISCUSSED THE RISKS, BENENFITS, AND ALTERNATIVES OF THE INJECTION AND THE PATIENT WOULD LIKE TO PROCEED AT THIS TIME. , INSTRUCTIONS WERE GIVEN, QUESTIONS WERE ANSWERED, PATIENT REPORTS UNDERSTANDING AND AGREES WITH THE PLAN. I, TIERRA WATSON, DOCUMENTED THE ABOVE INFORMATION ACTING A SCRIBE FOR DR. MEDINA. I HAVE REVIEWED THE ABOVE DOCUMENT, WRITTEN BY TIERRA PAUL AND I VERIFY THAT IT IS ACCURATE. PROCEDURES PN WORKMANS' COMP OPINION IN YOUR OPINION, WAS THE INCIDENT THAT THE PATIENT DESCRIBED THE COMPETENT MEDICAL CAUSE OF THIS INJURY/ILLNESS? YES ARE THE PATIENT'S COMPLAINTS CONSISTENT WITH HIS/HER HISTORY OF THE INJURY/ILLNESS? YES IS THE PATIENT'S HISTORY OF THE INJURY/ILLNESS CONSISTENT WITH YOUR OBJECTIVE FINDING? YES WHAT IS THE PERCENTAGE OF TEMPORARY IMPAIRMENT? TOTAL = 100% IS THE PATIENT WORKING? NO DOCTOR ON SITE: GILBERTO ESCOBAR MD PROCEDURE CODES FA211 ESTABILISHED PATIENT [facility] FACILITY CHARGE G8427 DOC MEDS VERIFIED W/PT OR RE G8730 PAIN ASSESS POS TOOL F/U PLAN DOC DISPOSITION & COMMUNICATION FOLLOW UP 3 WEEKS ELECTRONICALLY SIGNED BY GILBERTO MEDINA MD ON 01/07/2017 AT 12:31 PM EDT DISCLAIMER : THIS IS A VISIT SUMMARY EXTRACTED FROM THE [employer] CHART. IT IS NOT A COPY OF THE [employer] PROGRESS NOTE. MTDD
== END ==
LOC: M PAIN 13:20
PROVIDERS: ATTEND Anesthesiology
DX: G43.709 Chronic migraine without aura, not intractable, without status migrainosus (principal); M79.1 Myalgia; M96.1 Postlaminectomy syndrome, not elsewhere classified; M54.2 Cervicalgia; G89.29 Other chronic pain; K21.9 Gastro-esophageal reflux disease without esophagitis; Z79.891 Long term (current) use of opiate analgesic; Z79.82 Long term (current) use of aspirin; Z79.899 Other long term (current) drug therapy; Z91.013 Allergy to seafood; Z91.040 Latex allergy status; Z88.0 Allergy status to penicillin; J30.81 Allergic rhinitis due to animal (cat) (dog) hair and dander

== ENCOUNTER → 2017-01-30 | Outpatient (CLI) | payer OTHER ==
--- NOTE | 2017-02-13 01:42 | ECWPNPC ---
PATIENT NAME: DELIA BLOUNT : 1960 GENDER: FEMALE VISIT DATE: 01/30/2017 DISCHARGE DATE: 01/30/17 0945 VISIT LOCKED DATE TIME: PHYSICIAN: GILBERTO MEDINA RESOURCE: GILBERTO MEDINA REASON FOR APPOINTMENT 1. NECK PAIN W/C HISTORY OF PRESENT ILLNESS GENERAL: 56 YEAR OLD MALE PATIENT WITH HISTORY OF CHRONIC NECK, RIGHT WRIST AND RIGHT ARM PAIN. PATIENT DESCRIBES THE PAIN ACHING, BURNING, SHARP, STABBING, TENDER, THROBBING, SORE, AND HAVING IT ALL THE TIME WITH A PAIN SCORE OF 6-7/10. 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 CURRENTLY THE PATIENT IS USING CYCLOBENZAPRINE, LYRICA AND DIAZEPAM AND STATES THAT THE MEDICATION KEEPS HER MOBILE AND FUNCTIONAL AND DECREASES HER PAIN. PATIENT HAS HAD TWO NECK SURGERIES. MRS. BLOUNT STATES THAT PHYSICAL THERAPY HAS NOT AIDED IN MOBILITY OR FUNCTIONALITY OR A DECREASES IN PAIN. MRS. BLOUNT STATES THAT TURNING HER HEAD OR MOVEMENT OF HER ARMS INCREASES THE PAIN IN THE NECK AND AT THIS TIME REST AND MEDICATION AIDS IN PAIN RELIEF. PATIENT REPORTS GETTING OVER 25 HEADACHES A MONTH, WITH SENSITIVITY TO LIGHT AND SOUND. PATIENT REPORTS TRYING NUMEROUS MEDICATIONS FOR THE HEADACHES WITH LITTLE TO NO RELIEF. PATIENT DENIES UNEXPLAINABLE WEIGHT LOSS, FEVER, CHILLS, NEW CHANGES ON HER URINARY OR BOWEL CONTROL. CURRENT MEDICATIONS TAKING ESTRACE 1 MG TABLET 1 TABLET ORALLY ONCE DAILY, NOTES: WTW TAKING ESTRACE 0.1 MG/GM CREAM 0.5 GM VAGINAL TWICE A WEEK, NOTES: WTW TAKING ALBUTEROL SULFATE HFA 108 (90 BASE) MCG/ACT AEROSOL SOLUTION 2 PUFFS NEEDED INHALATION EVERY 4 HRS TAKING DULERA 100 MCG/5MCG POWDER 1 PUFF INHALED BID TAKING OMEGA 3 1000 MG CAPSULE 1 CAPSULE ORALLY ONCE A DAY TAKING LUTEIN VISION BLEND CAPSULE ORALLY TAKING VITAMIN D3 5000 UNITS CAPSULE 1 CAPSULE ORALLY EVERY 3 DAYS, NOTES: EVERY 3 DAYS TAKING PROTONIX 40 MG TAB TAKE ONE TABLET BY MOUTH TWICE A DAY TAKING ASPIRIN 81 MG TABLET CHEWABLE 1 TABLET ORALLY ONCE A DAY TAKING TRAMADOL HCL 50 MG TABLET 1 TAB ORALLY Q 6 HRS PRN PAIN MDD=4 TAKING CYCLOBENZAPRINE HCL 10 MG TABLET 1 TABLET ORALLY THREE TIMES A DAY NEEDED TAKING LYRICA 150 MG CAPSULE 1 CAPSULE ORALLY BID TAKING SUMATRIPTAN SUCCINATE 100 MG TABLET 1 TABLET NEEDED ONE TIME ORALLY TAKE AT ONSET OF MIGRAINE, MAY REPEAT TIMES ONE IN 2 HOURS IF NEEDED. MDD=2, NOTES: 1-2 TIMES PER MONTH, PAIN CLINIC TAKING DIAZEPAM 5 MG TABLET 1/2 TABLET ORALLY (CODE D FOR CHRONIC PAIN ) EVERY 8 HOURS PRN SEVERE SPASM MDD=1 NOT-TAKING FAMOTIDINE 20 MG TABLET 1 TABLET AT BEDTIME ORALLY ONCE A DAY NOT-TAKING NAPROXEN 500 MG TABLET 1 TABLET NEEDED ORALLY EVERY 12 HRS NOT-TAKING PREDNISONE 20 MG TABLET 1 TABLET ORALLY ONCE A DAY NOT-TAKING SUCRALFATE 1 GRAM TAB TAKE ONE TABLET BY MOUTH TWICE A DAY BEFORE MEALS NOT-TAKING ACYCLOVIR 400 MG TABLET 1 TABLET ORALLY THREE TIMES A DAY NOT-TAKING BENTYL 10 MG CAPSULE 1 CAPSULE ORALLY FOUR TIMES A DAY PRN PAST MEDICAL HISTORY ESOPHAGEAL REFLUX ASTHMA MIGRAINE HEADACHE ARTHRITIS ABNORMAL PAP SMEAR/SEVERAL JOEL 3 W/CRYO (DR. 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 EXAMINATION GENERAL: PATIENT IS ALERT O X 3 AND COOPERATIVE. PATIENT IS UNABLE TO FLEX OR EXTEND THE NECK PATIENT IS NOT ABLE TO ABDUCT UPPER EXTREMITIES. BOTH ARMS ARE VERY WEAK. THERE IS CERVICAL TENDERNESS WITH BANDS OF TISSUES, RESTRICTION OF MOVEMENT, AND PRESENCE OF TRIGGER POINTS. MRI OF THE CERVICAL SPINE DONE ON 06/08/2014 SHOWS CERVICAL SPONDYLOSIS AND FACET ARTHROPATHY. 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 BLOUNT'S PAIN MANAGEMENT CASE. AT THIS TIME THE PATIENT WILL CONTINUE WITH THE SAME MEDICATION REGIME BEFORE. PATIENT WILL CONTINUE TO USE TRAMADOL FOR THE SOMATIC PAIN, LYRICA FOR THE NEUROPATHIC PAIN, CYCLOBENZAPRINE FOR THE SEVERE SPASTICITY, SUMATRIPTAN FOR THE CHRONIC MIGRAINES, AND DIAZEPAM FOR THE MUSCLE SPASMS. PATIENT DENIES ABUSE OF ANY MEDICATION, DENIES USE OF ILLEGAL SUBSTANCES, AND STATES THAT SHE IS ONLY USING THE MEDICATION FOR PAIN MANAGEMENT. URINE TOXICOLOGY REPORT DONE ON 11/13/2009 SHOWS CONSISTENT RESULTS WITH THE PATIENTS MEDICATION LIST. PATIENT WILL PROVIDE SAMPLE FOR TOXICOLOGY REPORT TODAY. DUE TO THE PATIENT SEVERE MIGRAINES I WOULD LIKE TO MOVE FORWARD WITH BOTOX INJECTIONS. PATIENT HAS TRIED MULTIPLE MEDICATIONS THAT DO NOT AID IN PAIN RELIEF. WE DISCUSSED THE RISKS, BENENFITS, AND ALTERNATIVES OF THE INJECTION AND THE PATIENT WOULD LIKE TO PROCEED AT THIS TIME. INSTRUCTIONS WERE GIVEN, QUESTIONS WERE ANSWERED, PATIENT REPORTS UNDERSTANDING AND AGREES WITH THE PLAN. I, TIERRA WATSON, DOCUMENTED THE ABOVE INFORMATION ACTING A SCRIBE FOR DR. MEDINA. I HAVE REVIEWED THE ABOVE DOCUMENT, WRITTEN BY TIERRA PAUL AND I VERIFY THAT IT IS ACCURATE. MYALGIA REFILL TRAMADOL HCL TABLET, 50 MG, 1 TAB, ORALLY, Q 6 HRS PRN PAIN MDD=4, 30 DAY(S), 120, REFILLS 0 REFILL LYRICA CAPSULE, 150 MG, 1 CAPSULE, ORALLY, BID, 30 DAYS, 60, REFILLS 0 REFILL DIAZEPAM TABLET, 5 MG, 1/2 TABLET, ORALLY (CODE D FOR CHRONIC PAIN ), EVERY 8 HOURS PRN SEVERE SPASM MDD=1, 30 DAY(S), 20, REFILLS 0 PROCEDURES PN WORKMANS' COMP OPINION IN YOUR OPINION, WAS THE INCIDENT THAT THE PATIENT DESCRIBED THE COMPETENT MEDICAL CAUSE OF THIS INJURY/ILLNESS? YES ARE THE PATIENT'S COMPLAINTS CONSISTENT WITH HIS/HER HISTORY OF THE INJURY/ILLNESS? YES IS THE PATIENT'S HISTORY OF THE INJURY/ILLNESS CONSISTENT WITH YOUR OBJECTIVE FINDING? YES WHAT IS THE PERCENTAGE OF TEMPORARY IMPAIRMENT? TOTAL = 100% IS THE PATIENT WORKING? NO DOCTOR ON SITE: GILBERTO ESCOBAR MD PROCEDURE CODES FA211 ESTABILISHED PATIENT [facility] FACILITY CHARGE G7854 DOC MEDS VERIFIED W/PT OR RE D3312 PAIN ASSESS POS TOOL F/U PLAN DOC DISPOSITION & COMMUNICATION FOLLOW UP 6 WEEKS ELECTRONICALLY SIGNED BY GILBERTO MEDINA MD ON 02/12/2017 AT 09:24 PM EDT DISCLAIMER : THIS IS A VISIT SUMMARY EXTRACTED FROM THE [employer] CHART. IT IS NOT A COPY OF THE [employer] PROGRESS NOTE. MARY
== END ==
LOC: M PAIN 08:40
PROVIDERS: ATTEND Anesthesiology
DX: M54.2 Cervicalgia (principal); M79.1 Myalgia; M96.1 Postlaminectomy syndrome, not elsewhere classified; G43.709 Chronic migraine without aura, not intractable, without status migrainosus; Z79.82 Long term (current) use of aspirin; Z79.891 Long term (current) use of opiate analgesic; Z79.899 Other long term (current) drug therapy; Z88.0 Allergy status to penicillin; Z88.1 Allergy status to other antibiotic agents; Z88.8 Allergy status to other drugs, medicaments and biological substances; Z91.013 Allergy to seafood; Z91.040 Latex allergy status; J30.81 Allergic rhinitis due to animal (cat) (dog) hair and dander

== ENCOUNTER → 2017-03-06 | Outpatient (CLI) | payer OTHER ==
--- NOTE | 2017-03-06 15:05 | REPMRS ---
Patient History The patient states she had a clinical breast exam in 02/2017. Patient is postmenopausal and has history of other cancer at age 39. No known family history of cancer. Benign excisional biopsy of the right breast, 1984. Taking unspecified hormones for 21 years. Digital Woman Screen Mammo: March 06, 2017 - Exam #: [id number] Bilateral CC and MLO view(s) were taken. Technologist: Loretta Major Technologist Prior study comparison: March 02, 2016, digital woman screen mammo performed at [facility]. February 23, 2015, digital woman screen mammo performed at [facility]. January 14, 2014, digital woman screen mammo performed at [facility]. FINDINGS: There are scattered fibroglandular densities. There is a moderate amount of residual fibroglandular tissue which is fairly symmetric. There is no interval development of dominant mass, architectural distortion, or clustered microcalcification typical of malignancy. There has been no change in the appearance of the mammogram from the prior studies. ASSESSMENT: BI-RADS/ACR category 1 mammogram. Negative. Recommendation Routine screening mammogram of both breasts in 1 year (for women over age 40). This mammogram was interpreted with the aid of an FDA-approved computer-aided dectection system. Electronically Signed By: Regan Sebastian MD 03/06/17 8403
== END ==
LOC: M WHC 13:04
PROVIDERS: ATTEND Nurse Practitioner Family
DX: Z12.31 Encounter for screening mammogram for malignant neoplasm of breast (principal); Z78.0 Asymptomatic menopausal state

== ENCOUNTER → 2017-03-06 | Outpatient (REF) | payer OTHER ==
[~2017-03-06] MED LIST changes: +TRAZ50TA11 PO; -TRAZ50TA4 PO
== END ==
LOC: M SFHCWAGY 13:48
PROVIDERS: ATTEND Nurse Practitioner Family
DX: Z12.72 Encounter for screening for malignant neoplasm of vagina (principal)

== ENCOUNTER → 2017-03-21 | Outpatient (CLI) | payer OTHER ==
--- NOTE | 2017-04-04 00:56 | ECWPNPC ---
PATIENT NAME: DELIA BLOUNT : 1960 GENDER: FEMALE VISIT DATE: 03/21/2017 DISCHARGE DATE: 03/21/17 1420 VISIT LOCKED DATE TIME: PHYSICIAN: GILBERTO MEDINA RESOURCE: GILBERTO MEDINA REASON FOR APPOINTMENT 1. W/C NECK PAIN HISTORY OF PRESENT ILLNESS HISTORY OF PRESENT ILLNESS: PAIN THE PATIENT DESCRIBES THE PAIN... 56 YEAR OLD MALE PATIENT WITH HISTORY OF CHRONIC NECK, RIGHT WRIST AND RIGHT ARM PAIN. PATIENT DESCRIBES THE PAIN ACHING, BURNING, SHARP, STABBING, TENDER, THROBBING, SORE, AND HAVING IT ALL THE TIME WITH A PAIN SCORE OF 6-7/10. 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 CURRENTLY THE PATIENT IS USING CYCLOBENZAPRINE, LYRICA AND DIAZEPAM AND STATES THAT THE MEDICATION KEEPS HER MOBILE AND FUNCTIONAL AND DECREASES HER PAIN. PATIENT HAS HAD TWO NECK SURGERIES. MRS. BLOUNT STATES THAT PHYSICAL THERAPY HAS NOT AIDED IN MOBILITY OR FUNCTIONALITY OR A DECREASES IN PAIN. MRS. BLOUNT STATES THAT TURNING HER HEAD OR MOVEMENT OF HER ARMS INCREASES THE PAIN IN THE NECK AND AT THIS TIME REST AND MEDICATION AIDS IN PAIN RELIEF, BUT THE PAIN IS STILL THERE. PATIENT REPORTS GETTING OVER 30 HEADACHES A MONTH LASTING 6 HOURS PER DAY, WITH SENSITIVITY TO LIGHT AND SOUND. PATIENT STATES THE HEADACHES ARE SEVERE AND START T THE RIGHT SIDE AND TRAVELS TO THE WHOLE HEAD WITH A POUNDING SENSATION THAT INCAPACITIES THE PATIENT. DURING THESE MIGRAINES THE PATIENT STATES THAT SHE IS UNABLE TO FUNCTION AND DO EVERYDAY ACTIVITIES. PATIENT REPORTS TRYING NUMEROUS MEDICATIONS FOR THE HEADACHES WITH LITTLE TO NO RELIEF. PATIENT DENIES UNEXPLAINABLE WEIGHT LOSS, FEVER, CHILLS, NEW CHANGES ON HER URINARY OR BOWEL CONTROL. FALL RISK SCREENING: SCREENING :NO FALLS IN THE PAST YEAR CURRENT MEDICATIONS TAKING ACYCLOVIR 400 MG TABLET 1 TABLET ORALLY TWICE A DAY TAKING TRAMADOL HCL 50 MG TABLET 1 TAB ORALLY Q 6 HRS PRN PAIN MDD=4 TAKING LYRICA 150 MG CAPSULE 1 CAPSULE ORALLY BID TAKING DIAZEPAM 5 MG TABLET 1/2 TABLET ORALLY (CODE D FOR CHRONIC PAIN ) EVERY 8 HOURS PRN SEVERE SPASM MDD=1 TAKING ESTRACE 1 MG TABLET 1 TABLET ORALLY ONCE DAILY TAKING ESTRACE 0.1 MG/GM CREAM 0.5 GM VAGINAL TWICE A WEEK TAKING OMEGA 3 1000 MG CAPSULE 1 CAPSULE ORALLY ONCE A DAY TAKING LUTEIN VISION BLEND CAPSULE ORALLY TAKING VITAMIN D3 5000 UNITS CAPSULE 1 CAPSULE ORALLY EVERY 3 DAYS TAKING PROTONIX 40 MG TAB TAKE ONE TABLET BY MOUTH TWICE A DAY TAKING ASPIRIN 81 MG TABLET CHEWABLE 1 TABLET ORALLY EVERY THREE DAYS TAKING CYCLOBENZAPRINE HCL 10 MG TABLET 1 TABLET ORALLY THREE TIMES A DAY NEEDED TAKING SUMATRIPTAN SUCCINATE 100 MG TABLET 1 TABLET NEEDED ONE TIME ORALLY TAKE AT ONSET OF MIGRAINE, MAY REPEAT TIMES ONE IN 2 HOURS IF NEEDED. MDD=2, NOTES: 1-2 TIMES PER MONTH, PAIN CLINIC TAKING DULOXETINE HCL 30 MG CAPSULE DELAYED RELEASE PARTICLES 1 CAPSULE ORALLY ONCE A DAY NOT-TAKING ALBUTEROL SULFATE HFA 108 (90 BASE) MCG/ACT AEROSOL SOLUTION 2 PUFFS NEEDED INHALATION EVERY 4 HRS NOT-TAKING DULERA 100 MCG/5MCG POWDER 1 PUFF INHALED BID NOT-TAKING FAMOTIDINE 20 MG TABLET 1 TABLET AT BEDTIME ORALLY ONCE A DAY NOT-TAKING NAPROXEN 500 MG TABLET 1 TABLET NEEDED ORALLY EVERY 12 HRS NOT-TAKING PREDNISONE 20 MG TABLET 1 TABLET ORALLY ONCE A DAY NOT-TAKING SUCRALFATE 1 GRAM TAB TAKE ONE TABLET BY MOUTH TWICE A DAY BEFORE MEALS NOT-TAKING BENTYL 10 MG CAPSULE 1 CAPSULE ORALLY FOUR TIMES A DAY PRN MEDICATION LIST REVIEWED AND RECONCILED WITH THE PATIENT PAST MEDICAL HISTORY ESOPHAGEAL REFLUX ASTHMA MIGRAINE HEADACHE ARTHRITIS ABNORMAL PAP SMEAR/SEVERAL JOEL 3 W/[facility] (DR. 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 CONSTITUTIONAL: ANY CHANGE IN YOUR MEDICAL CONDITION? NO . CHILLS NO . FEVER NO . INFECTION: DO YOU HAVE NEW INFECTIONS? NO . DO YOU HAVE HISTORY OF MRSA? NO . MUSCULOSKELETAL: ANY NEW PATTERNS OF PAIN OR NUMBNESS? YES, LAST TWO WEEKS, MORE PAIN RIGHT SIDE HEAD AND NECK, DIFFICULT TO MOVE HEAD/NECK TO THE RIGHT WITHOUT SHOOTING PAIN, AND HEAVY PRESSURE IN THE RIGHT SIDE OF HER HEAD/NECK, SHOULDER. . GASTROENTEROLOGY: ANY NEW CHANGE IN BOWEL CONTROL? NO . GENITOURINARY: ANY NEW CHANGE IN BLADDER CONTROL? NO . IS THERE A CHANCE YOU COULD BE ? NO . HEMATOLOGY/LYMPH: DO YOU TAKE ANY BLOOD THINNERS? (FOR EXAMPLE- COUMADIN, PLAVIX, AGGRENOX, PLATEL, PRADAXA, OR XARELTO) NO . WHEN WAS YOUR LAST DOSE? DATE: TIME: . NEUROLOGY: HAVE YOU FALLEN IN THE PAST 6 MONTHS? NO . ANY NEW EXTREMITY NUMBNESS OR WEAKNESS? NO . CARDIOLOGY: DO YOU HAVE A PACEMAKER OR DEFIBRILLATOR? NO . RESPIRATORY: HAVE YOU BEEN SICK IN THE PAST WEEK? NO . FEVER NO . FLU LIKE SYMPTOMS? NO . COUGH NO . INTEGUMENTARY: DO YOU HAVE ANY RASHES OR OPEN SORES? NO . ALLERGIC/IMMUNO: ARE YOU ALLERGIC TO SHELLFISH OR IV DYE? NO . ANY NEW ALLERGIES? NO . PSYCHIATRIC: DO YOU HAVE THOUGHTS OF HURTING YOURSELF OR SOMEONE ELSE? NO . ARE YOU ABUSED, NEGLECTED, OR IN AN UNSAFE ENVIRONMENT? NO . ENDOCRINOLOGY: ARE YOU DIABETIC? NO . OTHER: DO YOU NEED ANY PRESCRIPTIONS? YES . IF YES, PLEASE LIST: TRAMADOL 50MG, DIAZEPAM 5MG, CYCLOBENZAPRINE 10MG, LYRICA 150MG, SUMATRIPTAN 100MG. . ANY NEW PROBLEMS WITH YOUR MEDICATIONS? NO . WHEN DID YOU LAST EAT? ____ . WHEN DID YOU LAST DRINK? ____ . WHAT DID YOU LAST DRINK? ____ . NAME OF PERSON DRIVING YOU HOME? ____ . DO YOU HAVE ANY OTHER QUESTIONS OR CONCERNS NO . VITAL SIGNS WT 168.0 LBS, HT 60 IN, BMI 32.81 INDEX, BP 121/73 MM HG, HR 68 /MIN, RR 16 /MIN, TEMP 97.6 F, OXYGEN SAT % 96%, NA INITIALS TL 1312, REVIEWED BY: CM. EXAMINATION : PATIENT IS ALERT O X 3 AND COOPERATIVE. PATIENT IS UNABLE TO FLEX OR EXTEND THE NECK PATIENT IS NOT ABLE TO ABDUCT UPPER EXTREMITIES. BOTH ARMS ARE VERY WEAK. THERE IS CERVICAL TENDERNESS WITH BANDS OF TISSUES, RESTRICTION OF MOVEMENT, AND PRESENCE OF TRIGGER POINTS. MRI OF THE CERVICAL SPINE DONE ON 06/08/2014 SHOWS CERVICAL SPONDYLOSIS AND FACET ARTHROPATHY. ADEQUATE VISUAL BOB. GOOD MOVEMENT OF EYES AND FACIAL EXPRESSIONS, NO DISFUNCTION OVER CRANIAL NERVES. 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 BLOUNT'S PAIN MANAGEMENT CASE. AT THIS TIME THE PATIENT WILL CONTINUE WITH THE SAME MEDICATION REGIME BEFORE. PATIENT WILL CONTINUE TO USE TRAMADOL FOR THE SOMATIC PAIN, LYRICA FOR THE NEUROPATHIC PAIN, CYCLOBENZAPRINE FOR THE SEVERE SPASTICITY, SUMATRIPTAN FOR THE CHRONIC MIGRAINES, AND DIAZEPAM FOR THE MUSCLE SPASMS. PATIENT DENIES ABUSE OF ANY MEDICATION, DENIES USE OF ILLEGAL SUBSTANCES, AND STATES THAT SHE IS ONLY USING THE MEDICATION FOR PAIN MANAGEMENT. URINE TOXICOLOGY REPORT DONE ON 01/10/2017 SHOWS CONSISTENT RESULTS WITH THE PATIENTS MEDICATION LIST. DUE TO THE PATIENT SEVERE MIGRAINES I WOULD LIKE TO MOVE FORWARD WITH BOTOX INJECTIONS AT THIS TIME. PATIENT HAS TRIED AMITRIPTYLINE 25 MG AT NIGHT, GABAPENTIN 300 MG 3X A DAY, IBUPROFEN 800 MG 3X A DAY NEEDED, AND SUMATRIPTAN 100 MG 2X A DAY NEEDED WITHOUT ANY SIGNIFICANT DECREASE IN FREQUENCY AND DURATION OF HEADACHES. WE DISCUSSED THE RISKS, BENEFITS, AND ALTERNATIVES OF THE INJECTION AND THE PATIENT WOULD LIKE TO PROCEED AT THIS TIME. INSTRUCTIONS WERE GIVEN, QUESTIONS WERE ANSWERED, PATIENT REPORTS UNDERSTANDING AND AGREES WITH THE PLAN. I, TIERRA WATSON, DOCUMENTED THE ABOVE INFORMATION ACTING A SCRIBE FOR DR. MEDINA. I HAVE REVIEWED THE ABOVE DOCUMENT, WRITTEN BY TIERRA PAUL AND I VERIFY THAT IT IS ACCURATE. MYALGIA REFILL TRAMADOL HCL TABLET, 50 MG, 1 TAB, ORALLY, Q 6 HRS PRN PAIN MDD=4, 30 DAY(S), 120, REFILLS 0 REFILL LYRICA CAPSULE, 150 MG, 1 CAPSULE, ORALLY, BID, 30 DAYS, 60, REFILLS 0 REFILL CYCLOBENZAPRINE HCL TABLET, 10 MG, 1 TABLET, ORALLY FOR SPSMS AND PAIN, THREE TIMES A DAY NEEDED, 30 DAY(S), 90, REFILLS 2 REFILL SUMATRIPTAN SUCCINATE TABLET, 100 MG, 1 TABLET NEEDED ONE TIME, ORALLY, TAKE AT ONSET OF MIGRAINE, MAY REPEAT TIMES ONE IN 2 HOURS IF NEEDED. MDD=2, 30 DAY(S), 9, REFILLS 2, NOTES: 1-2 TIMES PER MONTH, PAIN CLINIC PROCEDURES PN WORKMANS' COMP OPINION IN YOUR OPINION, WAS THE INCIDENT THAT THE PATIENT DESCRIBED THE COMPETENT MEDICAL CAUSE OF THIS INJURY/ILLNESS? YES ARE THE PATIENT'S COMPLAINTS CONSISTENT WITH HIS/HER HISTORY OF THE INJURY/ILLNESS? YES IS THE PATIENT'S HISTORY OF THE INJURY/ILLNESS CONSISTENT WITH YOUR OBJECTIVE FINDING? YES WHAT IS THE PERCENTAGE OF TEMPORARY IMPAIRMENT? MILD = 25% IS THE PATIENT WORKING? YES DOCTOR ON SITE: GILBERTO ESCOBAR MD PROCEDURE CODES FA211 ESTABILISHED PATIENT [facility] FACILITY CHARGE G8427 DOC MEDS VERIFIED W/PT OR RE G8730 PAIN ASSESS POS TOOL F/U PLAN DOC DISPOSITION & COMMUNICATION FOLLOW UP 2 MONTHS ELECTRONICALLY SIGNED BY GILBERTO MEDINA MD ON 04/02/2017 AT 08:27 PM EDT DISCLAIMER : THIS IS A VISIT SUMMARY EXTRACTED FROM THE [employer] CHART. IT IS NOT A COPY OF THE [employer] PROGRESS NOTE. MARY
== END ==
LOC: M PAIN 13:00
PROVIDERS: ATTEND Anesthesiology
DX: G43.709 Chronic migraine without aura, not intractable, without status migrainosus (principal); M79.1 Myalgia; M54.2 Cervicalgia; M96.1 Postlaminectomy syndrome, not elsewhere classified; G89.29 Other chronic pain; Z79.891 Long term (current) use of opiate analgesic; Z79.899 Other long term (current) drug therapy; Z79.82 Long term (current) use of aspirin; Z91.013 Allergy to seafood; Z91.040 Latex allergy status; Z88.0 Allergy status to penicillin; J30.81 Allergic rhinitis due to animal (cat) (dog) hair and dander; Z88.1 Allergy status to other antibiotic agents

== ENCOUNTER → 2017-04-17 | Outpatient (CLI) | payer OTHER ==
[~2017-04-17] MED LIST changes: +BOTULINUM INJ 100 UNITS (J0585) IM ONE
--- NOTE | 2017-05-01 00:40 | ECWPNPC ---
PATIENT NAME: DELIA BLOUNT : 1960 GENDER: FEMALE VISIT DATE: 04/17/2017 DISCHARGE DATE: 04/17/17 1427 VISIT LOCKED DATE TIME: PHYSICIAN: GILBERTO MEDINA RESOURCE: GILBERTO MEDINA REASON FOR APPOINTMENT 1. BOTOX HISTORY OF PRESENT ILLNESS HISTORY OF PRESENT ILLNESS: PAIN THE PATIENT DESCRIBES THE PAIN... FALL RISK SCREENING: SCREENING :NO FALLS IN THE PAST YEAR CURRENT MEDICATIONS TAKING PROTONIX 40 MG TAB TAKE ONE TABLET BY MOUTH TWICE A DAY ORALLY TWICE DAILY, NOTES: 04-16-16 PM TAKING PANTOPRAZOLE SODIUM 40 MG TABLET DELAYED RELEASE 1 TABLET ORALLY TWICE A DAY, NOTES: 04-16-17 TAKING CETIRIZINE HCL 10 MG TABLET 1 TABLET ORALLY ONCE A DAY, NOTES: 04-16-17 TAKING AZELASTINE & FLUTICASONE 137 & 50 MCG/ACT THERAPY PACK NASALLY , NOTES: 04-16-17 TAKING TRAMADOL HCL 50 MG TABLET 1 TAB ORALLY Q 6 HRS PRN PAIN MDD=4, NOTES: 04-16-17 PM TAKING LYRICA 150 MG CAPSULE 1 CAPSULE ORALLY BID, NOTES: 04-16-17 PM TAKING CYCLOBENZAPRINE HCL 10 MG TABLET 1 TABLET ORALLY FOR SPSMS AND PAIN THREE TIMES A DAY NEEDED, NOTES: 04-16-17 PM TAKING SUMATRIPTAN SUCCINATE 100 MG TABLET 1 TABLET NEEDED ONE TIME ORALLY TAKE AT ONSET OF MIGRAINE, MAY REPEAT TIMES ONE IN 2 HOURS IF NEEDED. MDD=2, NOTES: 04-15-17 TAKING ACYCLOVIR 400 MG TABLET 1 TABLET ORALLY TWICE A DAY, NOTES: 04-16-17 PM TAKING ESTRACE 1 MG TABLET 1 TABLET ORALLY ONCE DAILY, NOTES: 04-16-17 AM TAKING ESTRACE 0.1 MG/GM CREAM 0.5 GM VAGINAL TWICE A WEEK, NOTES: 04-16-17 TAKING OMEGA 3 1000 MG CAPSULE 1 CAPSULE ORALLY ONCE A DAY, NOTES: 04-16-17 TAKING LUTEIN VISION BLEND CAPSULE ORALLY , NOTES: 04-16-17 TAKING VITAMIN D3 5000 UNITS CAPSULE 1 CAPSULE ORALLY EVERY 3 DAYS, NOTES: 04-16-17 TAKING ASPIRIN 81 MG TABLET CHEWABLE 1 TABLET ORALLY EVERY THREE DAYS, NOTES: COUPLE DAYS AGO TAKING ALBUTEROL SULFATE HFA 108 (90 BASE) MCG/ACT AEROSOL SOLUTION 2 PUFFS NEEDED INHALATION EVERY 4 HRS, NOTES: NONE RECENT TAKING DULERA 100 MCG/5MCG POWDER 1 PUFF INHALED BID, NOTES: LAST WEEK DISCONTINUED DIAZEPAM 5 MG TABLET 1/2 TABLET ORALLY (CODE D FOR CHRONIC PAIN ) EVERY 8 HOURS PRN SEVERE SPASM MDD=1 DISCONTINUED DULOXETINE HCL 30 MG CAPSULE DELAYED RELEASE PARTICLES 1 CAPSULE ORALLY ONCE A DAY DISCONTINUED FAMOTIDINE 20 MG TABLET 1 TABLET AT BEDTIME ORALLY ONCE A DAY DISCONTINUED NAPROXEN 500 MG TABLET 1 TABLET NEEDED ORALLY EVERY 12 HRS DISCONTINUED PREDNISONE 20 MG TABLET 1 TABLET ORALLY ONCE A DAY DISCONTINUED SUCRALFATE 1 GRAM TAB TAKE ONE TABLET BY MOUTH TWICE A DAY BEFORE MEALS DISCONTINUED BENTYL 10 MG CAPSULE 1 CAPSULE ORALLY FOUR TIMES A DAY PRN MEDICATION LIST REVIEWED AND RECONCILED WITH THE PATIENT PAST MEDICAL HISTORY ESOPHAGEAL REFLUX ASTHMA MIGRAINE HEADACHE ARTHRITIS ABNORMAL PAP SMEAR/SEVERAL JOEL 3 W/[facility] (DR. 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 CONSTITUTIONAL: ANY CHANGE IN YOUR MEDICAL CONDITION? NO . CHILLS NO . FEVER NO . INFECTION: DO YOU HAVE NEW INFECTIONS? NO . DO YOU HAVE HISTORY OF MRSA? NO . MUSCULOSKELETAL: ANY NEW PATTERNS OF PAIN OR NUMBNESS? YES, PAIN HER SCALP ALL DAY LONG, AND HARDER TO TURN HER HEAD TO THE RIGHT. . GASTROENTEROLOGY: ANY NEW CHANGE IN BOWEL CONTROL? NO . GENITOURINARY: ANY NEW CHANGE IN BLADDER CONTROL? NO . IS THERE A CHANCE YOU COULD BE ? NO . HEMATOLOGY/LYMPH: DO YOU TAKE ANY BLOOD THINNERS? (FOR EXAMPLE- COUMADIN, PLAVIX, AGGRENOX, PLATEL, PRADAXA, OR XARELTO) NO . WHEN WAS YOUR LAST DOSE? DATE: TIME: . NEUROLOGY: HAVE YOU FALLEN IN THE PAST 6 MONTHS? NO . ANY NEW EXTREMITY NUMBNESS OR WEAKNESS? NO . CARDIOLOGY: DO YOU HAVE A PACEMAKER OR DEFIBRILLATOR? NO . RESPIRATORY: HAVE YOU BEEN SICK IN THE PAST WEEK? NO . FEVER NO . FLU LIKE SYMPTOMS? NO . COUGH NO . INTEGUMENTARY: DO YOU HAVE ANY RASHES OR OPEN SORES? NO . ALLERGIC/IMMUNO: ARE YOU ALLERGIC TO SHELLFISH OR IV DYE? NO . ANY NEW ALLERGIES? NO . PSYCHIATRIC: DO YOU HAVE THOUGHTS OF HURTING YOURSELF OR SOMEONE ELSE? NO . ARE YOU ABUSED, NEGLECTED, OR IN AN UNSAFE ENVIRONMENT? NO . ENDOCRINOLOGY: ARE YOU DIABETIC? NO . OTHER: DO YOU NEED ANY PRESCRIPTIONS? NO . IF YES, PLEASE LIST: ____ . ANY NEW PROBLEMS WITH YOUR MEDICATIONS? NO . WHEN DID YOU LAST DRINK? 04-17-17 0600 . WHAT DID YOU LAST DRINK? WATER AND COFFEE . NAME OF PERSON DRIVING YOU HOME? FRIEND--MAXINE . DO YOU HAVE ANY OTHER QUESTIONS OR CONCERNS NO . VITAL SIGNS WT 167 LBS, HT 60 IN, BMI 32.61 INDEX, BP 119/73 MM HG, HR 63 /MIN, RR 18 /MIN, TEMP 98.1 F, OXYGEN SAT % 96%, NA INITIALS SC 12:37, REVIEWED BY: CM. ASSESSMENTS CHRONIC MIGRAINE WITHOUT AURA, NOT INTRACTABLE, WITHOUT STATUS MIGRAINOSUS - G43.709 (PRIMARY) PROCEDURES PN BOTOX INJECTIONS FIRST INJECTION PRE PROCEDURE DIAGNOSIS CHRONIC MIGRAINE HEADACHES POST PROCEDURE DIAGNOSIS CHRONIC MIGRAINE HEADACHES PROCEDURE BOTOX INJECTION AT THE HEAD, NECK AND SHOULDERS SURGEON DR. GILBERTO MEDINA MIRROR POLISHER NONE ANESTHESIA NONE PRE PROCEDURE NOTE THE PATIENT WITH HISTORY OF CHRONIC MIGRAINE HEADACHES. I EVALUATE THE PATIENT AND REVIEWED THE CHART. I WENT OVER THE RISKS, ALTERNATIVES, AND BENEFITS ASSOCIATED WITH THIS PROCEDURE. THE PATIENT WOULD LIKE TO PROCEED AND GIVE CONSENT TO PERFORMED THE PROCEDURE. THE PATIENT DENIES UNEXPLAINABLE WEIGHT LOSS, FEVER, CHILLS, OR NEW CHANGES IN URINARY OR BOWEL CONTROL. THE PATIENT EXPRESSED SUFFERING OF HEADACHES MORE THAN 16 DAYS OF THE MONTH. THESE HEADACHES LAST MORE THAN 4 HOURS PER DAY. THE PATIENT HAS USED THE MEDICATIONS LISTED IN THE CHART TO TREAT THE HEADACHES FOR MANY MONTHS AND THE HEADACHES PERSIST DESCRIBED ABOVE DESCRIPTION OF PROCEDURE THE PATIENTS WAS BROUGHT TO THE PROCEDURE ROOM AND PLACED IN THE SUPINE POSITION. I CHECKED LATERALITY AND THE AREAS WHERE THE PROCEDURE WAS GOING TO BE PERFORMED WITH THE PATIENT AND THE SUPPORTING STAFF AT THE MOMENT OF THE TIME OUT IN THE PROCEDURE ROOM. FOR THE PROCEDURE I USED A SOLUTION OF 5 UNITS OF BOTOX PER EACH 0.1 ML OF THE SOLUTION. I USED A 30-GAUGE NEEDLE TO INJECT THE SOLUTION AT THE SELECTED LOCATIONS. I INJECTED FIRST THE RIGHT AND LEFT RECONCILIATION COORDINATOR MUSCLES. THE LANDMARK FOR BOTH INJECTIONS WAS APPROXIMATELY 1 CM ABOVE THE SUPERIOR MEDIAL EDGE OF THE EYEBROW. AFTER THESE TWO INJECTIONS, I INJECTED THE PROCERUS MUSCLE AT THE MIDLINE POINT BETWEEN THESE FIRST TWO INJECTIONS. THEN I PROCEEDED TO INJECT THE RIGHT AND LEFT FRONTALIS MUSCLE. TWO INJECTIONS WERE DONE IN EACH SIDE. THE FIRST INJECTION WAS DONE APPROXIMATELY 2 CM ABOVE THE FIRST INJECTION OF THE RECONCILIATION COORDINATOR. THE SECOND INJECTION WAS DONE APPROXIMATELY 1.5 CM LATERAL TO THIS FIST INJECTION OF THE FRONTALIS OF EACH SIDE. AFTER THE INJECTIONS OVER THE FOREHEAD WERE DONE, THE PATIENT'S HEAD WAS TURNED TO THE LEFT SIDE AND WE STARTED TO WORK WITH THE RIGHT TEMPORALIS MUSCLE. FIRST INJECTION WAS DONE IN A VERTICAL LINE OF THE TRAGUS APPROXIMATELY 3 CM ABOVE THE TRAGUS. THE SECOND INJECTION WAS DONE APPROXIMATELY 2 CM ABOVE THE FIRST INJECTION. THE THIRD INJECTION WAS DONE APPROXIMATELY 1 CM FRONT ABBASI FROM THIS VERTICAL LINE CREATED AT THE LEVEL OF THE TRAGUS, MCFP BETWEEN THESE TWO INJECTIONS. THE FOURTH INJECTION WAS DONE APPROXIMATELY 1.5 CM BACK FROM THE SECOND INJECTION TO THE TEMPORALIS IN LINE TO THE MIDPORTION OF THE EAR. THEN, WE PROCEEDED TO INJECT THE LEFT TEMPORALIS MUSCLE. WE CLEANED THE AREA WITH ALCOHOL AND PROCEEDED TO PERFORM THE SAME FOR INJECTIONS DESCRIBED ABOVE BUT IN THE LEFT TEMPORALIS MUSCLE USING THE SAME LANDMARKS. AFTER THESE INJECTIONS WERE DONE, THE PATIENT WAS SEATED. FIRST, WE STARTED TO INJECT THE LEFT AND RIGHT OCCIPITALIS MUSCLE. I INJECTED AT THE FOLLOWING PLACES IN THE RIGHT AND LEFT MUSCLE. THE FIRST INJECTION WAS DONE AT THE MIDPOINT POSITION BETWEEN THE MASTOID PROCESS AND THE INION OF THE OCCIPITAL PROTUBERANCE. THE SECOND INJECTION WAS DONE APPROXIMATELY 1.5 CM SUPERIOR AND LATERAL OF THIS POINT. THE THIRD INJECTION WAS DONE APPROXIMATELY 1.5 CM SUPERIOR AND MEDIAL TO THIS FIRST INJECTION. THEN, I PROCEEDED TO INJECT THE RIGHT AND LEFT PARASPINAL MUSCLES. LANDMARK OF THE INJECTION WERE APPROXIMATELY: FIRST INJECTION 3 CM BELOW THE INION AND 1 CM LATERAL TO THE MIDLINE AND SECOND INJECTION AT EACH SIDE WAS DONE APPROXIMATELY 1.5 CM SUPERIOR AND LATERAL OF THE FIRST INJECTION. THE LAST GROUP OF INJECTIONS WAS DONE OVER THE RIGHT AND LEFT TRAPEZIUS MUSCLE OVER THE SHOULDERS AREA. THE FIRST INJECTION WAS DONE AT THE MIDPOINT BETWEEN THE INFLECTION POINT BETWEEN THE NECK AND SHOULDER AND THE ACROMION. THE SECOND AND THIRD INJECTIONS WERE DONE APPROXIMATELY 2.5 CM LATERAL AND MEDIAL FROM THIS FIRST INJECTION. SAME TARGETS WERE USED IN THE RIGHT AND LEFT SIDE. IN TOTAL, I INJECTED 155 UNITS OF BOTOX. PROCEDURE WAS DONE WITHOUT EVIDENCE OF PARESTHESIA, PNEUMOTHORAX, OR ANY COMPLICATIONS. THE PATIENT TOLERATED THE PROCEDURE VERY WELL. THE PATIENT WAS SENT TO THE RECOVERY ROOM FOR OBSERVATIONS. INJECTIONS WERE DONE AFTER CLEANING WITH ALCOHOL, USING ASEPTIC TECHNIQUES POST PROCEDURE NOTE THE PROCEDURE DONE WAS DISCUSSED WITH THE PATIENT. THE PATIENT WILL BE SEEN IN A FOLLOW UP IN THE NEXT FEW WEEKS. INSTRUCTIONS WERE GIVEN, QUESTIONS WERE ANSWERED, AND THE PATIENT EXPRESSED UNDERSTANDING AND AGREES WITH THE PLAN. I, TIERRA WATSON, DOCUMENTED THE ABOVE INFORMATION ACTING A SCRIBE FOR DR. MEDINA. I HAVE REVIEWED THE ABOVE DOCUMENT, WRITTEN BY TIERRA WATSON SCRIBE AND I VERIFY THAT IT IS ACCURATE PROCEDURE CODES 89131 CHEMODENERV MUSC MIGRAINE DISPOSITION & COMMUNICATION FOLLOW UP 3 WEEKS ELECTRONICALLY SIGNED BY GILBERTO MEDINA MD ON 04/30/2017 AT 12:33 PM EDT DISCLAIMER : THIS IS A VISIT SUMMARY EXTRACTED FROM THE [employer] CHART. IT IS NOT A COPY OF THE [employer] PROGRESS NOTE. MARY
== END ==
LOC: M PAIN 12:30
PROVIDERS: ATTEND Anesthesiology
DX: G43.709 Chronic migraine without aura, not intractable, without status migrainosus (principal); Z79.891 Long term (current) use of opiate analgesic; Z79.899 Other long term (current) drug therapy; Z79.82 Long term (current) use of aspirin; Z91.013 Allergy to seafood; Z91.040 Latex allergy status; Z88.1 Allergy status to other antibiotic agents; Z88.8 Allergy status to other drugs, medicaments and biological substances; J30.81 Allergic rhinitis due to animal (cat) (dog) hair and dander
CPT/HCPCS: 64615; J0585

== ENCOUNTER → 2017-04-24 | Outpatient (CLI) | payer OTHER ==
[~2017-04-24] MED LIST changes: -BOTULINUM INJ 100 UNITS (J0585) IM ONE
--- NOTE | 2017-05-07 23:47 | ECWPNPC ---
PATIENT NAME: DELIA BLOUNT : 1960 GENDER: FEMALE VISIT DATE: 04/24/2017 DISCHARGE DATE: 04/24/17 1310 VISIT LOCKED DATE TIME: PHYSICIAN: GILBERTO MEDINA RESOURCE: GILBERTO MEDINA REASON FOR APPOINTMENT 1. HEADACHES HISTORY OF PRESENT ILLNESS HISTORY OF PRESENT ILLNESS: PAIN THE PATIENT DESCRIBES THE PAIN... 56 YEAR OLD MALE PATIENT WITH HISTORY OF CHRONIC NECK, RIGHT WRIST AND RIGHT ARM PAIN. PATIENT DESCRIBES THE PAIN ACHING, BURNING, SHARP, STABBING, TENDER, THROBBING, SORE, AND HAVING IT ALL THE TIME WITH A PAIN SCORE OF 6-7/10. 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 CURRENTLY THE PATIENT IS USING CYCLOBENZAPRINE, LYRICA AND DIAZEPAM AND STATES THAT THE MEDICATION KEEPS HER MOBILE AND FUNCTIONAL AND DECREASES HER PAIN. PATIENT HAS HAD TWO NECK SURGERIES. MRS. BLOUNT STATES THAT PHYSICAL THERAPY HAS NOT AIDED IN MOBILITY OR FUNCTIONALITY OR A DECREASES IN PAIN. MRS. BLOUNT STATES THAT TURNING HER HEAD OR MOVEMENT OF HER ARMS INCREASES THE PAIN IN THE NECK AND AT THIS TIME REST AND MEDICATION AIDS IN PAIN RELIEF, BUT THE PAIN IS STILL THERE. MRS. BLOUNT RECEIVED BOTOX INJECTION ON 04/17/17 AND REPORTS HAVING MILD SWELLING BETWEEN THE EYES, BUT DOES STATE SHE HAS HAD LESS HEADACHES SINCE THE INJECTION. PATIENT DENIES UNEXPLAINABLE WEIGHT LOSS, FEVER, CHILLS, NEW CHANGES ON HER URINARY OR BOWEL CONTROL. FALL RISK SCREENING: SCREENING :NO FALLS IN THE PAST YEAR CURRENT MEDICATIONS TAKING PANTOPRAZOLE SODIUM 40 MG TABLET DELAYED RELEASE 1 TABLET ORALLY TWICE A DAY TAKING CETIRIZINE HCL 10 MG TABLET 1 TABLET ORALLY ONCE A DAY TAKING AZELASTINE & FLUTICASONE 137 & 50 MCG/ACT THERAPY PACK NASALLY TAKING ACYCLOVIR 400 MG TABLET 1 TABLET ORALLY TWICE A DAY TAKING ESTRACE 1 MG TABLET 1 TABLET ORALLY ONCE DAILY TAKING ESTRACE 0.1 MG/GM CREAM 0.5 GM VAGINAL TWICE A WEEK TAKING OMEGA 3 1000 MG CAPSULE 1 CAPSULE ORALLY ONCE A DAY TAKING LUTEIN VISION BLEND CAPSULE ORALLY TAKING VITAMIN D3 5000 UNITS CAPSULE 1 CAPSULE ORALLY EVERY 3 DAYS TAKING ASPIRIN 81 MG TABLET CHEWABLE 1 TABLET ORALLY EVERY THREE DAYS TAKING ALBUTEROL SULFATE HFA 108 (90 BASE) MCG/ACT AEROSOL SOLUTION 2 PUFFS NEEDED INHALATION EVERY 4 HRS TAKING DULERA 100 MCG/5MCG POWDER 1 PUFF INHALED BID TAKING LYRICA 150 MG CAPSULE 1 CAPSULE ORALLY BID TAKING TRAMADOL HCL 50 MG TABLET 1 TAB ORALLY Q 6 HRS PRN PAIN MDD=4 TAKING CYCLOBENZAPRINE HCL 10 MG TABLET 1 TABLET ORALLY FOR SPSMS AND PAIN THREE TIMES A DAY NEEDED TAKING SUMATRIPTAN SUCCINATE 100 MG TABLET 1 TABLET NEEDED ONE TIME ORALLY TAKE AT ONSET OF MIGRAINE, MAY REPEAT TIMES ONE IN 2 HOURS IF NEEDED. MDD=2 TAKING PROTONIX 40 MG TAB TAKE ONE TABLET BY MOUTH TWICE A DAY ORALLY TWICE DAILY PAST MEDICAL HISTORY ESOPHAGEAL REFLUX ASTHMA MIGRAINE HEADACHE ARTHRITIS ABNORMAL PAP SMEAR/SEVERAL JOEL 3 W/CRY[facility] (DR. 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 PATH REPORT: FRAGMENTS OF COLONIC MUCOSA WITH INCREASED LYMPHOPLASMA INFILTRATES OF LAMINA PROPRIA 01/2014 ANTERIOR CERVICAL DISCECTOMY AND FUSION (ACDF) BY DR. NUSRTA THOMPSON, [facility] 06/04/15 SOCIAL HISTORY GENERAL: TOBACCO USE ARE YOU A:FORMER SMOKER HOW LONG HAS IT BEEN SINCE YOU LAST SMOKED?5-10 YEARS ALCOHOL SCREENING DID YOU HAVE A DRINK CONTAINING ALCOHOL IN THE PAST YEAR?NO POINTS0 INTERPRETATIONNEGATIVE RECREATIONAL DRUG USE DRUG USE?NO CAFFEINE CAFFEINE USE?NO SEXUAL HX HAD SEX IN THE LAST 12 MONTHS (VAGINAL, ORAL, OR ANAL)?NO OCCUPATION: UNEMPLOYED. DIET: REGULAR. EXERCISE: NO REGULAR EXERCISE. MARITAL STATUS: .. OTHERS AT HOME: BOYFRIEND. PETS: NONE. YARSANISM [id number] JEW LANGUAGE LANGUAGES SPOKEN:LITHUANIAN OTHER-SINHALA EDUCATION LEVEL OF EDUCATION:HIGH SCHOOL LEARNING BARRIERS / SPECIAL NEEDS CHANGE FROM LAST VISIT?NO BARRIERS TO LEARNING?NO HEARING IMPAIRED?NO VISION IMPAIRED?YES :CORRECTIVE LENSES COGNITIVELY IMPAIRED?NO READINESS TO LEARN?YES LEARNING PREFERENCES?NO LEARNING CAPABILITIES PRESENT?YES EMOTIONAL BARRIERS?NO SPECIAL DEVICES?NO SENIOR PRODUCTION MANAGER NEEDED?NO PAIN CLINIC PFS, CLERGY, PUBLIC HEALTH REFERRALS PFS REFERRAL NEEDED?NO CLERGY REFERRAL NEEDED?NO PUBLIC HEALTH REFERRAL NEEDED?NO WAS THE PROVIDER NOTIFIED OF ANY PERTINENT INFO?NO HAS THE PATIENT BEEN EDUCATED REGARDING HIS/HER PLAN OF CARE?YES HAS THE PATIENT BEEN EDUCATED REGARDING PAIN, THE RISK FOR PAIN, THE IMPORTANCE OF EFFECTIVE PAIN MANAGEMENT, AND THE PAIN ASSESSMENT PROCESS?YES PATIENT: ____. USED TO SMOKE FOR OVER 20 YRS ON/OFF WITH 3 CIGS/DAY. HOSPITALIZATION/MAJOR DIAGNOSTIC PROCEDURE ACDF SURGERY, [facility] /15-06/07/15 REVIEW OF SYSTEMS REVIEWED BY: PROVIDER: GILBERTO MEDINA MD . CONSTITUTIONAL: ANY CHANGE IN YOUR MEDICAL CONDITION? NO . CHILLS NO . FEVER NO . INFECTION: DO YOU HAVE NEW INFECTIONS? NO . DO YOU HAVE HISTORY OF MRSA? NO . MUSCULOSKELETAL: ANY NEW PATTERNS OF PAIN OR NUMBNESS? YES, NECK PAIN IMPROVED . GASTROENTEROLOGY: ANY NEW CHANGE IN BOWEL CONTROL? NO . GENITOURINARY: ANY NEW CHANGE IN BLADDER CONTROL? NO . IS THERE A CHANCE YOU COULD BE ? NO . HEMATOLOGY/LYMPH: DO YOU TAKE ANY BLOOD THINNERS? (FOR EXAMPLE- COUMADIN, PLAVIX, AGGRENOX, PLATEL, PRADAXA, OR XARELTO) NO . WHEN WAS YOUR LAST DOSE? DATE: TIME: . NEUROLOGY: HAVE YOU FALLEN IN THE PAST 6 MONTHS? NO . ANY NEW EXTREMITY NUMBNESS OR WEAKNESS? NO . CARDIOLOGY: DO YOU HAVE A PACEMAKER OR DEFIBRILLATOR? NO . RESPIRATORY: HAVE YOU BEEN SICK IN THE PAST WEEK? NO . FEVER NO . FLU LIKE SYMPTOMS? NO . COUGH NO . INTEGUMENTARY: DO YOU HAVE ANY RASHES OR OPEN SORES? NO . ALLERGIC/IMMUNO: ARE YOU ALLERGIC TO SHELLFISH OR IV DYE? NO . ANY NEW ALLERGIES? NO . PSYCHIATRIC: DO YOU HAVE THOUGHTS OF HURTING YOURSELF OR SOMEONE ELSE? NO . ARE YOU ABUSED, NEGLECTED, OR IN AN UNSAFE ENVIRONMENT? NO . ENDOCRINOLOGY: ARE YOU DIABETIC? NO . OTHER: DO YOU NEED ANY PRESCRIPTIONS? NO . IF YES, PLEASE LIST: ____ . ANY NEW PROBLEMS WITH YOUR MEDICATIONS? NO . WHEN DID YOU LAST EAT? ____ . WHEN DID YOU LAST DRINK? ____ . WHAT DID YOU LAST DRINK? ____ . NAME OF PERSON DRIVING YOU HOME? ____ . DO YOU HAVE ANY OTHER QUESTIONS OR CONCERNS YES, BOTH EYES SENSITIVE, TIRED, LIDS MORE OPEN, AND INCREASED TEARS NOTICED SINCE 04/20/17. ALSO UNUSUAL SENSATION BETWEEN EYEBROWS NOTED. . VITAL SIGNS WT 167 LBS, HT 60 IN, BMI 32.61 INDEX, BP 103/66 MM HG, HR 91 /MIN, RR 18 /MIN, TEMP 99.2 F, OXYGEN SAT % 93%, NA INITIALS SC 11:57, REVIEWED BY: LS. EXAMINATION : PATIENT IS ALERT O X 3 AND COOPERATIVE. PATIENT IS UNABLE TO FLEX OR EXTEND THE NECK PATIENT IS NOT ABLE TO ABDUCT UPPER EXTREMITIES. BOTH ARMS ARE VERY WEAK. THERE IS CERVICAL TENDERNESS WITH BANDS OF TISSUES, RESTRICTION OF MOVEMENT, AND PRESENCE OF TRIGGER POINTS. MRI OF THE CERVICAL SPINE DONE ON 06/08/2014 SHOWS CERVICAL SPONDYLOSIS AND FACET ARTHROPATHY. ADEQUATE VISUAL BOB. ASSESSMENTS CHRONIC MIGRAINE WITHOUT AURA, NOT INTRACTABLE, WITHOUT STATUS MIGRAINOSUS - G43.709 (PRIMARY) MYALGIA - M79.1 TREATMENT CHRONIC MIGRAINE WITHOUT AURA, NOT INTRACTABLE, WITHOUT STATUS MIGRAINOSUS NOTES: WE DISCUSSED SEVERAL ISSUES WITH MRS. BLOUNT'S PAIN MANAGEMENT CASE. AT THIS TIME THE PATIENT WILL CONTINUE WITH THE SAME MEDICATION REGIME BEFORE. PATIENT WILL CONTINUE TO USE TRAMADOL FOR THE SOMATIC PAIN, LYRICA FOR THE NEUROPATHIC PAIN, CYCLOBENZAPRINE FOR THE SEVERE SPASTICITY, SUMATRIPTAN FOR THE CHRONIC MIGRAINES, AND DIAZEPAM FOR THE MUSCLE SPASMS. PATIENT DENIES ABUSE OF ANY MEDICATION, DENIES USE OF ILLEGAL SUBSTANCES, AND STATES THAT SHE IS ONLY USING THE MEDICATION FOR PAIN MANAGEMENT. URINE TOXICOLOGY REPORT DONE ON 01/10/2017 SHOWS CONSISTENT RESULTS WITH THE PATIENTS MEDICATION LIST. AT THIS TIME THE PATIENT IS DOING WELL FROM THE BOTOX INJECTION AND WE DISCUSSED THE SWELLING BETWEEN THE EYES. PATIENT HAS NO SIDE EFFECTS AND IS ABLE TO CLOSE HER EYES AND OPEN THEM FULLY. PATIENT WILL RETURN TO THE CLINIC IN 6 WEEKS. INSTRUCTIONS WERE GIVEN, QUESTIONS WERE ANSWERED, PATIENT REPORTS UNDERSTANDING AND AGREES WITH THE PLAN. I, TIERRA WATSON, DOCUMENTED THE ABOVE INFORMATION ACTING A SCRIBE FOR DR. MEDINA. I HAVE REVIEWED THE ABOVE DOCUMENT, WRITTEN BY TIERRA PAUL AND I VERIFY THAT IT IS ACCURATE. PROCEDURES PN WORKMANS' COMP OPINION IN YOUR OPINION, WAS THE INCIDENT THAT THE PATIENT DESCRIBED THE COMPETENT MEDICAL CAUSE OF THIS INJURY/ILLNESS? YES ARE THE PATIENT'S COMPLAINTS CONSISTENT WITH HIS/HER HISTORY OF THE INJURY/ILLNESS? YES IS THE PATIENT'S HISTORY OF THE INJURY/ILLNESS CONSISTENT WITH YOUR OBJECTIVE FINDING? YES WHAT IS THE PERCENTAGE OF TEMPORARY IMPAIRMENT? TOTAL = 100% IS THE PATIENT WORKING? NO DOCTOR ON SITE: GILBERTO ESCOBAR MD PROCEDURE CODES FA211 ESTABILISHED PATIENT [facility] FACILITY CHARGE G8427 DOC MEDS VERIFIED W/PT OR RE G8730 PAIN ASSESS POS TOOL F/U PLAN DOC DISPOSITION & COMMUNICATION FOLLOW UP 6 WEEKS ELECTRONICALLY SIGNED BY GILBERTO MEDINA MD ON 05/07/2017 AT 07:18 PM EDT DISCLAIMER : THIS IS A VISIT SUMMARY EXTRACTED FROM THE [employer] CHART. IT IS NOT A COPY OF THE [employer] PROGRESS NOTE. MARY
== END ==
LOC: M PAIN 11:45
PROVIDERS: ATTEND Anesthesiology
DX: G43.709 Chronic migraine without aura, not intractable, without status migrainosus (principal); M79.1 Myalgia; Z79.82 Long term (current) use of aspirin; Z79.899 Other long term (current) drug therapy; Z87.891 Personal history of nicotine dependence; Z91.040 Latex allergy status; Z91.013 Allergy to seafood; Z88.1 Allergy status to other antibiotic agents; Z88.0 Allergy status to penicillin; J30.81 Allergic rhinitis due to animal (cat) (dog) hair and dander

== ENCOUNTER → 2017-06-01 | Outpatient (CLI) | payer OTHER ==
--- NOTE | 2017-06-30 00:58 | ECWPNPC ---
PATIENT NAME: DELIA BLOUNT : 1960 GENDER: FEMALE VISIT DATE: 06/01/2017 DISCHARGE DATE: 06/01/17 1644 VISIT LOCKED DATE TIME: PHYSICIAN: YVAN CHEEMA RESOURCE: YVAN CHEEMA REASON FOR APPOINTMENT 1. W/C HEAD/NECK HISTORY OF PRESENT ILLNESS HISTORY OF PRESENT ILLNESS: PAIN THE PATIENT DESCRIBES THE PAIN... FALL RISK SCREENING: SCREENING :NO FALLS IN THE PAST YEAR TODAY'S VISIT: NOTES: WC FOLLOW UP FOR NECK PAIN S/P BOTOX FOR CHRONIC MIGRAINE HAS NOTED DECREASE TO 50% - ABOUT 3 HEADACHE EVENTS PER WEEK. FEELS MARKED IMPROVMENT IN FUNCTION. OCCASIONAL MIGRAINE HAS OCCURRED AND MEDICATIONS SEEM MORE EFFECTIVE WITH MIGRAINE PAIN. OMT THERAPY TRIED BY PCP - DID PRODUCE MIGRAINE. RATES PAIN TODAY 6/10. DESCRIBES PAIN CONSTANT, ACHING, URNING TENDER, THROBBING AND IS OCCASIONALLY SHARP SHOOTING AND STABBING. PAIN IS CENTERED IN [place] WITH RADIATION TO BACK OF HEAD, ACROSS SHOULDERS AND DOWN BOTH ARMS.. CURRENT MEDICATIONS TAKING PROTONIX 40 MG TAB TAKE ONE TABLET BY MOUTH TWICE A DAY ORALLY TWICE DAILY TAKING CETIRIZINE HCL 10 MG TABLET 1 TABLET ORALLY ONCE A DAY TAKING ACYCLOVIR 400 MG TABLET 1 TABLET ORALLY TWICE A DAY TAKING ESTRACE 1 MG TABLET 1 TABLET ORALLY ONCE DAILY TAKING ESTRACE 0.1 MG/GM CREAM 0.5 GM VAGINAL TWICE A WEEK TAKING OMEGA 3 1000 MG CAPSULE 1 CAPSULE ORALLY ONCE A DAY TAKING LUTEIN VISION BLEND CAPSULE ORALLY TAKING VITAMIN D3 5000 UNITS CAPSULE 1 CAPSULE ORALLY EVERY 3 DAYS TAKING LYRICA 150 MG CAPSULE 1 CAPSULE ORALLY BID TAKING TRAMADOL HCL 50 MG TABLET 1 TAB ORALLY Q 6 HRS PRN PAIN MDD=4 TAKING CYCLOBENZAPRINE HCL 10 MG TABLET 1 TABLET ORALLY FOR SPSMS AND PAIN THREE TIMES A DAY NEEDED TAKING SUMATRIPTAN SUCCINATE 100 MG TABLET 1 TABLET NEEDED ONE TIME ORALLY TAKE AT ONSET OF MIGRAINE, MAY REPEAT TIMES ONE IN 2 HOURS IF NEEDED. MDD=2 NOT-TAKING AZELASTINE & FLUTICASONE 137 & 50 MCG/ACT THERAPY PACK NASALLY NOT-TAKING ASPIRIN 81 MG TABLET CHEWABLE 1 TABLET ORALLY EVERY THREE DAYS NOT-TAKING ALBUTEROL SULFATE HFA 108 (90 BASE) MCG/ACT AEROSOL SOLUTION 2 PUFFS NEEDED INHALATION EVERY 4 HRS NOT-TAKING DULERA 100 MCG/5MCG POWDER 1 PUFF INHALED BID MEDICATION LIST REVIEWED AND RECONCILED WITH THE PATIENT PAST MEDICAL HISTORY ESOPHAGEAL REFLUX ASTHMA MIGRAINE HEADACHE ARTHRITIS ABNORMAL PAP SMEAR/SEVERAL JOEL 3 W/[facility]YO (DR. 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 PATH REPORT: FRAGMENTS OF COLONIC MUCOSA WITH INCREASED LYMPHOPLASMA INFILTRATES OF LAMINA PROPRIA 01/2014 ANTERIOR CERVICAL DISCECTOMY AND FUSION (ACDF) BY DR. NUSRAT THOMPSON, [facility] 06/04/15 HOSPITALIZATION/MAJOR DIAGNOSTIC PROCEDURE ACDF SURGERY, [facility] 925/15-06/07/15 REVIEW OF SYSTEMS REVIEWED BY: PROVIDER: YVAN ROMO . CONSTITUTIONAL: ANY CHANGE IN YOUR MEDICAL CONDITION? NO . CHILLS NO . FEVER NO . INFECTION: DO YOU HAVE NEW INFECTIONS? NO . DO YOU HAVE HISTORY OF MRSA? NO . MUSCULOSKELETAL: ANY NEW PATTERNS OF PAIN OR NUMBNESS? NO . GASTROENTEROLOGY: ANY NEW CHANGE IN BOWEL CONTROL? NO . GENITOURINARY: ANY NEW CHANGE IN BLADDER CONTROL? NO . IS THERE A CHANCE YOU COULD BE ? NO . HEMATOLOGY/LYMPH: DO YOU TAKE ANY BLOOD THINNERS? (FOR EXAMPLE- COUMADIN, PLAVIX, AGGRENOX, PLATEL, PRADAXA, OR XARELTO) NO . WHEN WAS YOUR LAST DOSE? DATE: TIME: . NEUROLOGY: HAVE YOU FALLEN IN THE PAST 6 MONTHS? NO . ANY NEW EXTREMITY NUMBNESS OR WEAKNESS? NO . CARDIOLOGY: DO YOU HAVE A PACEMAKER OR DEFIBRILLATOR? NO . RESPIRATORY: HAVE YOU BEEN SICK IN THE PAST WEEK? NO . FEVER NO . FLU LIKE SYMPTOMS? NO . COUGH NO . INTEGUMENTARY: DO YOU HAVE ANY RASHES OR OPEN SORES? NO . ALLERGIC/IMMUNO: ARE YOU ALLERGIC TO SHELLFISH OR IV DYE? NO . ANY NEW ALLERGIES? NO . PSYCHIATRIC: DO YOU HAVE THOUGHTS OF HURTING YOURSELF OR SOMEONE ELSE? NO . ARE YOU ABUSED, NEGLECTED, OR IN AN UNSAFE ENVIRONMENT? NO . ENDOCRINOLOGY: ARE YOU DIABETIC? NO . OTHER: DO YOU NEED ANY PRESCRIPTIONS? YES, LYRICA, TRAMADOL . IF YES, PLEASE LIST: ____ . ANY NEW PROBLEMS WITH YOUR MEDICATIONS? NO . WHEN DID YOU LAST EAT? ____ . WHEN DID YOU LAST DRINK? ____ . WHAT DID YOU LAST DRINK? ____ . NAME OF PERSON DRIVING YOU HOME? ____ . DO YOU HAVE ANY OTHER QUESTIONS OR CONCERNS NO . VITAL SIGNS WT 160 LBS, HT 60 IN, BMI 31.24 INDEX, BP 104/76 MM HG, HR 94 /MIN, RR 18 /MIN, TEMP 98.0 F, OXYGEN SAT % 95%, NA INITIALS SC 15:55. EXAMINATION GENERAL EXAMINATION: PSYCHALERT , ORIENTED X 3 . LUNGS:CLEAR TO AUSCULTATION BILATERALLY . HEART:HEART RATE REGULAR . MUSCULOSKELETAL:TRIGGER POINTS:, ELICITED WITH PALPATION OVER CERVICAL SPINOUS PROCESSES AND ACROSS THE TRAPEZIUS MUSCLES BILATERALLY. RESTRICTION OF ROM IS NOTED. 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 . SKIN:NO RASH OR SKIN LESIONS . NEUROLOGIC EXAM:CN'S II-XII GROSSLY INTACT. EOMS INTACT WITHOUT NYSTAGMUS. FAIR SHOULDER SHRUG. PINT TENDERNESS OVER BILATERAL OCCIPITAL NOTCH REGION. ASSESSMENTS CERVICAL POST-LAMINECTOMY SYNDROME - M96.1 (PRIMARY) CHRONIC MIGRAINE W/O AURA W/O STATUS MIGRAINOSUS, NOT INTRACTABLE - G43.709 MYALGIA - M79.1 TREATMENT CERVICAL POST-LAMINECTOMY SYNDROME REFILL LYRICA CAPSULE, 150 MG, 1 CAPSULE, ORALLY, BID, 30 DAYS, 60, REFILLS 0 REFILL TRAMADOL HCL TABLET, 50 MG, 1 TAB, ORALLY, Q 6 HRS PRN PAIN MDD=4, 30 DAY(S), 120, REFILLS 0 NOTES: CONTINUE CURRENT MEDS. LYRICA IS BEING USED FOR NEUROPATHIC PAIN, TRAMADOL FOR MUSCLE PAIN. PROCEDURES PN WORKMANS' COMP OPINION IN YOUR OPINION, WAS THE INCIDENT THAT THE PATIENT DESCRIBED THE COMPETENT MEDICAL CAUSE OF THIS INJURY/ILLNESS? YES ARE THE PATIENT'S COMPLAINTS CONSISTENT WITH HIS/HER HISTORY OF THE INJURY/ILLNESS? YES IS THE PATIENT'S HISTORY OF THE INJURY/ILLNESS CONSISTENT WITH YOUR OBJECTIVE FINDING? YES WHAT IS THE PERCENTAGE OF TEMPORARY IMPAIRMENT? TOTAL = 100% IS THE PATIENT WORKING? NO DOCTOR ON SITE: GILBERTO ESCOBAR MD PROCEDURE CODES FA211 ESTABILISHED PATIENT [facility] FACILITY CHARGE DISPOSITION & COMMUNICATION FOLLOW UP 1 MONTH (REASON: WC NECK /MIGRAINE) ELECTRONICALLY SIGNED BY MOHSEN SIMENTAL ON 06/29/2017 AT 09:17 AM EDT DISCLAIMER : THIS IS A VISIT SUMMARY EXTRACTED FROM THE [employer] CHART. IT IS NOT A COPY OF THE [employer] PROGRESS NOTE. MARY
== END ==
LOC: M PAIN 15:00
PROVIDERS: ATTEND Nurse Practitioner Family
DX: M96.1 Postlaminectomy syndrome, not elsewhere classified (principal); G43.709 Chronic migraine without aura, not intractable, without status migrainosus; M79.1 Myalgia; K21.9 Gastro-esophageal reflux disease without esophagitis; G43.909 Migraine, unspecified, not intractable, without status migrainosus; J45.909 Unspecified asthma, uncomplicated; F32.9 Major depressive disorder, single episode, unspecified; Z91.013 Allergy to seafood; Z91.040 Latex allergy status; Z88.5 Allergy status to narcotic agent; Z88.8 Allergy status to other drugs, medicaments and biological substances; Z91.048 Other nonmedicinal substance allergy status; Z79.891 Long term (current) use of opiate analgesic; Z79.899 Other long term (current) drug therapy

== ENCOUNTER → 2017-07-03 | Outpatient (CLI) | payer OTHER ==
--- NOTE | 2017-07-04 01:29 | ECWPNPC ---
PATIENT NAME: DELIA BLOUNT : 1960 GENDER: FEMALE VISIT DATE: 07/03/2017 DISCHARGE DATE: 07/03/17 1444 VISIT LOCKED DATE TIME: PHYSICIAN: YVAN CHEEMA RESOURCE: YVAN CHEEMA REASON FOR APPOINTMENT 1. NECK /MIGRAINE HISTORY OF PRESENT ILLNESS HISTORY OF PRESENT ILLNESS: PAIN THE PATIENT DESCRIBES THE PAIN... FALL RISK SCREENING: SCREENING :NO FALLS IN THE PAST YEAR TODAY'S VISIT: NOTES: FOLLOWUP FOR NECK PAIN AND HEADACHE. HAS JENELLE SCHEDULED FOR 07/09/17 IN [place]. HAS HAD 50-60 % REDUCTION IN MIGRAINE HEADACHES BUT HAS VERY STRONG "REGULAR" HEADACHES ON RIGHT SIDE WITH INCREASED TIGHTNESS AND PAIN RIGHT NECK AND SHOULDER AREA. MIGRAINES HAD BEEN EVERY OTHER DAY AND LASTING ALL DAY LONG. CURRENT HEADACHES RESPOND TO HER MEDICATIONS . CURRENT MEDICATIONS TAKING PROTONIX 40 MG TAB TAKE ONE TABLET BY MOUTH TWICE A DAY ORALLY TWICE DAILY TAKING CETIRIZINE HCL 10 MG TABLET 1 TABLET ORALLY ONCE A DAY TAKING ACYCLOVIR 400 MG TABLET 1 TABLET ORALLY TWICE A DAY TAKING ESTRACE 1 MG TABLET 1 TABLET ORALLY ONCE DAILY TAKING ESTRACE 0.1 MG/GM CREAM 0.5 GM VAGINAL TWICE A WEEK TAKING OMEGA 3 1000 MG CAPSULE 1 CAPSULE ORALLY ONCE A DAY TAKING LUTEIN VISION BLEND CAPSULE ORALLY TAKING VITAMIN D3 5000 UNITS CAPSULE 1 CAPSULE ORALLY EVERY 3 DAYS TAKING CYCLOBENZAPRINE HCL 10 MG TABLET 1 TABLET ORALLY FOR SPSMS AND PAIN THREE TIMES A DAY NEEDED TAKING SUMATRIPTAN SUCCINATE 100 MG TABLET 1 TABLET NEEDED ONE TIME ORALLY TAKE AT ONSET OF MIGRAINE, MAY REPEAT TIMES ONE IN 2 HOURS IF NEEDED. MDD=2 TAKING LYRICA 150 MG CAPSULE 1 CAPSULE ORALLY TWICE DAILY TAKING TRAMADOL HCL 50 MG TABLET 1 TAB ORALLY EVERY 6 HOURS NEEDED PAIN MDD=4 UNKNOWN AZELASTINE & FLUTICASONE 137 & 50 MCG/ACT THERAPY PACK NASALLY UNKNOWN ASPIRIN 81 MG TABLET CHEWABLE 1 TABLET ORALLY EVERY THREE DAYS UNKNOWN ALBUTEROL SULFATE HFA 108 (90 BASE) MCG/ACT AEROSOL SOLUTION 2 PUFFS NEEDED INHALATION EVERY 4 HRS UNKNOWN DULERA 100 MCG/5MCG POWDER 1 PUFF INHALED BID PAST MEDICAL HISTORY ESOPHAGEAL REFLUX ASTHMA MIGRAINE HEADACHE ARTHRITIS ABNORMAL PAP SMEAR/SEVERAL JOEL 3 W/CRYO (DR. 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 DIET: REGULAR. EXERCISE: NO REGULAR EXERCISE. MARITAL STATUS: .. OTHERS AT HOME: BOYFRIEND. PETS: NONE. PRESYBETERIAN [id number] PROTESTANT LANGUAGE LANGUAGES SPOKEN:VIETNAMESE OTHER-URDU EDUCATION LEVEL OF EDUCATION:HIGH SCHOOL LEARNING BARRIERS / SPECIAL NEEDS CHANGE FROM LAST VISIT?NO BARRIERS TO LEARNING?NO HEARING IMPAIRED?NO VISION IMPAIRED?YES COGNITIVELY IMPAIRED?NO :CORRECTIVE LENSES READINESS TO LEARN?YES LEARNING PREFERENCES?NO LEARNING CAPABILITIES PRESENT?YES EMOTIONAL BARRIERS?NO SPECIAL DEVICES?NO JOURNEYMAN MOLDER NEEDED?NO PAIN CLINIC PFS, CLERGY, PUBLIC HEALTH REFERRALS PFS REFERRAL NEEDED?NO CLERGY REFERRAL NEEDED?NO PUBLIC HEALTH REFERRAL NEEDED?NO WAS THE PROVIDER NOTIFIED OF ANY PERTINENT INFO?NO HAS THE PATIENT BEEN EDUCATED REGARDING HIS/HER PLAN OF CARE?YES HAS THE PATIENT BEEN EDUCATED REGARDING PAIN, THE RISK FOR PAIN, THE IMPORTANCE OF EFFECTIVE PAIN MANAGEMENT, AND THE PAIN ASSESSMENT PROCESS?YES PATIENT: ____. USED TO SMOKE FOR OVER 20 YRS ON/OFF WITH 3 CIGS/DAY. REVIEW OF SYSTEMS REVIEWED BY: PROVIDER: YVAN ROMO . CONSTITUTIONAL: ANY CHANGE IN YOUR MEDICAL CONDITION? HAS HAD CHRONIC DIAARHEA SINCE AUG/ SEEN DR COOK AND ALL WAS OK/ HAS BEEN TO ED WITH NO ANSWERS .ALL SHE EATS IS RICE AND VEGATABLES AND IS IN THE BATHROOM FOR 1/2 OF THE DAY . CHILLS NO . FEVER NO . INFECTION: DO YOU HAVE NEW INFECTIONS? NO . DO YOU HAVE HISTORY OF MRSA? NO . MUSCULOSKELETAL: ANY NEW PATTERNS OF PAIN OR NUMBNESS? YES, RIGHT NECK/SHOULDER CANNOT LAY ON RIGHT SIDE WITHOUT PAINHAS "WIERD"PAIN THAT FEELS LIKE TIGHTNESS WHEN SHE LAYS ON HER SIDE . GASTROENTEROLOGY: ANY NEW CHANGE IN BOWEL CONTROL? DIARRHEA FOR A WEEK / GALLBLADDER REMOVED 1993 SEEING FAMILY DOCTOR TODAY . GENITOURINARY: ANY NEW CHANGE IN BLADDER CONTROL? NO . IS THERE A CHANCE YOU COULD BE ? NO . HEMATOLOGY/LYMPH: DO YOU TAKE ANY BLOOD THINNERS? (FOR EXAMPLE- COUMADIN, PLAVIX, AGGRENOX, PLATEL, PRADAXA, OR XARELTO) NO . WHEN WAS YOUR LAST DOSE? DATE: TIME: . NEUROLOGY: HAVE YOU FALLEN IN THE PAST 6 MONTHS? NO . ANY NEW EXTREMITY NUMBNESS OR WEAKNESS? NO . CARDIOLOGY: DO YOU HAVE A PACEMAKER OR DEFIBRILLATOR? NO . RESPIRATORY: HAVE YOU BEEN SICK IN THE PAST WEEK? NO . FEVER NO . FLU LIKE SYMPTOMS? NO . COUGH NO . INTEGUMENTARY: DO YOU HAVE ANY RASHES OR OPEN SORES? NO . ALLERGIC/IMMUNO: ARE YOU ALLERGIC TO SHELLFISH OR IV DYE? NO . ANY NEW ALLERGIES? NO . PSYCHIATRIC: DO YOU HAVE THOUGHTS OF HURTING YOURSELF OR SOMEONE ELSE? NO . ARE YOU ABUSED, NEGLECTED, OR IN AN UNSAFE ENVIRONMENT? NO . ENDOCRINOLOGY: ARE YOU DIABETIC? NO . OTHER: DO YOU NEED ANY PRESCRIPTIONS? NO . IF YES, PLEASE LIST: ____ . ANY NEW PROBLEMS WITH YOUR MEDICATIONS? NO . WHEN DID YOU LAST EAT? ____ . WHEN DID YOU LAST DRINK? ____ . WHAT DID YOU LAST DRINK? ____ . NAME OF PERSON DRIVING YOU HOME? ____ . DO YOU HAVE ANY OTHER QUESTIONS OR CONCERNS NO . VITAL SIGNS WT 164 LBS, HT 60 IN, BMI 32.03 INDEX, BP 118/65 MM HG, HR 68 /MIN, RR 16 /MIN, TEMP 98.4 F, OXYGEN SAT % 97%, NA INITIALS SC 13:56, REVIEWED BY: NL. EXAMINATION GENERAL EXAMINATION: PSYCHALERT , ORIENTED X 3 . LUNGS:CLEAR TO AUSCULTATION BILATERALLY . HEART:HEART RATE REGULAR . MUSCULOSKELETAL:TRIGGER POINTS:, ELICITED WITH PALPATION OVER CERVICAL SPINOUS PROCESSES AND ACROSS THE TRAPEZIUS MUSCLES BILATERALLY. RESTRICTION OF ROM IS NOTED. SPECTROSCOPIST STRENGTH DECREASED BILATERALLY, RIGHT GREATER THAN LEFT. . SKIN:NO RASH OR SKIN LESIONS . NEUROLOGIC EXAM:CN'S II-XII GROSSLY INTACT. EOMS INTACT WITHOUT NYSTAGMUS. POOR SHOULDER SHRUG. POINT TENDERNESS OVER BILATERAL OCCIPITAL NOTCH REGION. ASSESSMENTS MYALGIA - M79.1 (PRIMARY) CERVICAL POST-LAMINECTOMY SYNDROME - M96.1 CHRONIC MIGRAINE W/O AURA W/O STATUS MIGRAINOSUS, NOT INTRACTABLE - G43.709 TREATMENT MYALGIA TRIGGER POINT 3 + YVAN JOHNSON 07/03/2017 2:30:38 PM > NECK AND SHOULDERS, RIGHT > LEFT CHEMODENERVATION (BOTOX) MISC-MIGRAINE HEADACHES NOTES: CONTINUE CURRENT MEDS. DO EXERCISES AND STRETCHES TOLERATED. PROCEDURES PN WORKMANS' COMP OPINION IN YOUR OPINION, WAS THE INCIDENT THAT THE PATIENT DESCRIBED THE COMPETENT MEDICAL CAUSE OF THIS INJURY/ILLNESS? YES ARE THE PATIENT'S COMPLAINTS CONSISTENT WITH HIS/HER HISTORY OF THE INJURY/ILLNESS? YES IS THE PATIENT'S HISTORY OF THE INJURY/ILLNESS CONSISTENT WITH YOUR OBJECTIVE FINDING? YES WHAT IS THE PERCENTAGE OF TEMPORARY IMPAIRMENT? TOTAL = 100% IS THE PATIENT WORKING? NO DOCTOR ON SITE: GILBERTO ESCOBAR MD PROCEDURE CODES FA211 ESTABILISHED PATIENT [facility] CHARGE DISPOSITION & COMMUNICATION FOLLOW UP AFTER INJECTION (REASON: WC GET AUTH FOR TPI TO NECK R> L SHOULDER, AND BOTOX 07/18/17.) ELECTRONICALLY SIGNED BY MOHSEN SIMENTAL ON 07/03/2017 AT 02:46 PM EDT DISCLAIMER : THIS IS A VISIT SUMMARY EXTRACTED FROM THE [employer] CHART. IT IS NOT A COPY OF THE [employer] PROGRESS NOTE. MARY
== END ==
LOC: M PAIN 13:45
PROVIDERS: ATTEND Nurse Practitioner Family
DX: M96.1 Postlaminectomy syndrome, not elsewhere classified (principal); G43.709 Chronic migraine without aura, not intractable, without status migrainosus; M79.1 Myalgia; K21.9 Gastro-esophageal reflux disease without esophagitis; F32.9 Major depressive disorder, single episode, unspecified; Z91.013 Allergy to seafood; Z91.040 Latex allergy status; Z88.1 Allergy status to other antibiotic agents; Z88.8 Allergy status to other drugs, medicaments and biological substances; Z91.09 Other allergy status, other than to drugs and biological substances; Z79.899 Other long term (current) drug therapy; Z87.891 Personal history of nicotine dependence

== ENCOUNTER → 2017-07-04 | Outpatient (REF) | payer OTHER | LOC: M SFHCPLAZ 15:36 | PROVIDERS: ATTEND Family Medicine | DX: A09 Infectious gastroenteritis and colitis, unspecified (principal) ==

== ENCOUNTER 2017-08-14 09:25 | Inpatient (IN) | payer OTHER ==
[~2017-08-14] VITALS: Ht 154.9 cm; Wt 76.5 kg
[2017-08-14] MEDS: VITAMIN D 1,000 INTERNATIONAL UNITS TABLET PO SCH (09:00)
[2017-08-14] MEDS: MULTIVITAMINS/MINERALS THERAP 1 TAB PO SCH (09:00)
[2017-08-14] MEDS ORDERED: fentaNYL 100 MCG/2 ML INJECTION (J3010) IV ONE ×2 (10:30→11:15)
[2017-08-14] MEDS ORDERED: ONDANSETRON 4MG/2ML VIAL (J2405) IV ONE (10:30)
[2017-08-14 10:45] LABS: BASO % 0.2 % (0.0-1.0); EOS % 0.1 % (0.0-3.0); IMMATURE GRANULOCYTE % 0.3 % (0-0); LYMPH # 0.9 10^3/uL (1.5-4.5); LYMPH % 6.8 % (24.0-44.0); MEAN CORPUSCULAR HEMOGLOBIN 30.1 pg (27.0-33.0); MEAN CORPUSCULAR HGB CONC 32.1 g/dl (32.0-36.5); MEAN CORPUSCULAR VOLUME 93.7 fl (80.0-96.0); MONO # 0.4 10^3/uL (0.0-0.8); MONO % 3.1 % (0.0-5.0); NEUTROPHILS # 11.9 10^3/uL (1.8-7.7); NEUTROPHILS % 89.5 % (36.0-66.0); PLATELET COUNT, AUTOMATED 262 10^3/uL (150-450); RED CELL DISTRIBUTION WIDTH 12.2 % (11.5-14.5); WHITE BLOOD COUNT 13.3 10^3/uL (4.0-10.0)
[2017-08-14 11:08] LABS: ALBUMIN 3.4 GM/DL (3.2-5.2); ALBUMIN/GLOBULIN RATIO 0.97 (1.00-1.93); ALKALINE PHOSPHATASE 70 U/L (45-117); ALT/SGPT 20 U/L (12-78); ANION GAP 7 MEQ/L (8-16); AST/SGOT 13 U/L (7-37); BILIRUBIN,DIRECT < 0.1 MG/DL (0.0-0.2); BILIRUBIN,TOTAL 0.2 MG/DL (0.2-1.0); BLOOD UREA NITROGEN 19 MG/DL (7-18); CALCIUM LEVEL 8.4 MG/DL (8.5-10.1); CARBON DIOXIDE LEVEL 27 MEQ/L (21-32); CHLORIDE LEVEL 107 MEQ/L (98-107); CREATININE FOR GFR 0.61 MG/DL (0.55-1.02); GLOMERULAR FILTRATION RATE > 60.0 (>51); GLUCOSE, FASTING 103 MG/DL (70-105); POTASSIUM SERUM 4.1 MEQ/L (3.5-5.1); SODIUM LEVEL 141 MEQ/L (136-145); TOTAL PROTEIN 6.9 GM/DL (6.4-8.2)
[2017-08-14] MEDS ORDERED: NS 1,000 ML IV ONE (11:15)
[2017-08-14] MEDS ORDERED: ISOVUE-370 76% 100ML VIAL (Q9967) As Ordered ONE (11:16)
--- NOTE | 2017-08-14 12:06 | REP ---
CT ABDOMEN PELVIS WITH IV CONTRAST: 08/14/2017 CLINICAL HISTORY: Epigastric pain. No prior study. TECHNIQUE: Bolus of 100 mL Isovue 370 and scanning through the abdomen pelvis with coronal and sagittal reconstructions provided. FINDINGS: CT ABDOMEN: Lung bases are clear. Heart is not enlarged. There is no pericardial thickening or effusion and no hiatal hernia. There is no hepatosplenomegaly, focal hepatic or splenic mass, intrahepatic biliary dilatation or ascites. There is probable diffuse fatty infiltration of the liver. There is surgical clips in the gallbladder fossa and right upper quadrant from prior cholecystectomy. Stomach collapsed and without mass or wall thickening. No upper abdominal ascites. The adrenal glands are normal without a mass. Small bowel loops in the abdomen are not dilated. Some have fluid without inflammatory changes in the mesentery. The aorta is without aneurysm, periaortic or mesenteric/retroperitoneal pathologic sized lymphadenopathy. A few of the small bowel loops show enhancing scherer that may reflect some gastroenteritis and without dilatation. No sign of colitis, diverticulitis, stricture or mass. The appendix is seen and extends from the inferior margin of the cecum without appendicolith or inflammatory change. Bilateral kidneys show function without obstruction, stone, mass, cyst or perinephric edema. Ureters show normal course to the bladder without dilatation or stone. Lung window review on all CT slices show no perforation or free air. The bone windows show lumbar and lower thoracic vertebral levels, the posterior elements and the visualized lower ribs to be all intact. CT PELVIS: Sacrum, SI joints, iliac bones, acetabuli, hips and ischia are all intact. No bone lesions of an acute nature. A few bone islands noted. The distal ureters show no dilatation or stone. Uterus absent and the vaginal cuff intact. No pelvic mass or adenopathy and no pelvic free fluid. The distal left colon is collapsed. The distal and terminal ileum show edema and enhancement of the wall without significant inflammatory change in the adjacent fat. The left colon to proximal sigmoid are collapsed while the distal sigmoid to the rectosigmoid junction shows slight thickening and enhancement of the wall without inflammatory change adjacent. No ascites or pelvic adenopathy. No ventral or inguinal hernia nor pathologic sized inguinal adenopathy. IMPRESSION: 1. Mid to distal small bowel loops with slightly edematous and enhancing scherer without much inflammatory change adjacent, which might reflect some enteritis. In addition, the left colon is collapsed proximally to the proximal sigmoid while the distal sigmoid to the rectum junction show similar thickening and enhancement of the wall as in that distal small bowel. This may reflect some gastroenteritis. Inflammatory bowel disease is not excluded but there is no significant pericolonic inflammatory change. No diverticulitis. No adenopathy, ascites or free air. 2. I see no adenopathy, ascites, perforation, abscess or free air. Solid organs in the upper abdomen suggest some mild fatty infiltration of the liver. Prior cholecystectomy and hysterectomy. Signed by Regino Daniel MD 08/14/2017 08:29 P
--- NOTE | 2017-08-14 12:35 | ECGEPIP ---
Stationary ECG Study [facility] - ED Test Date: 2017-08-14 Pat Name: DELIA BLOUNT Department: Room: - Gender: F Bsa/Aml Compliance Officer: jasmyn : 1960 Requested By: NIC Mckeon Order Number: [id number] Reading MD: Ida Ramos Measurements Intervals [place] Rate: 77 P: -8 NV: 185 QRS: 10 QRSD: 86 T: 15 QT: 397 QTc: 452 Interpretive Statements SINUS RHYTHM NSTTW ABNORMALITY SIMILAR 09/25/13 Electronically Signed On 08-14-2017 12:35:12 EST by Ida Ramos
[2017-08-14] MEDS ORDERED: metroNIDAZOLE 500 MG in APPROPRIATE DILUENT 1 EA IV ONE (13:45)
[2017-08-14] MEDS ORDERED: ACETAMINOPHEN TAB 650MG DOSE (2X325MG) PO PRN (14:30)
[2017-08-14] MEDS ORDERED: BACITAB PO (14:30)
[2017-08-14] MEDS ORDERED: PERCOCET 5MG/325MG TAB PO PRN (14:30)
[2017-08-14] MEDS ORDERED: VITMTA PO (14:30)
[2017-08-14] MEDS ORDERED: ESTR1CRE PV (14:30)
[2017-08-14] MEDS: NS 1,000 ML IV SCH ×2 (14:41→16:00)
[2017-08-14] MEDS ORDERED: ACYCLOVIR 200 MG CAPSULE PO PRN (14:45)
[2017-08-14] MEDS ORDERED: NS 1,000 ML IV SCH ×2 (14:45→17:00)
[2017-08-14] MEDS ORDERED: CYCLOBENZAPRINE 10 MG TAB PO PRN (14:45)
--- NOTE | 2017-08-14 15:15 | HPEPDOC ---
[facility] [place] & Physical Date of Admission Aug 14, 2017 Primary Care Physician: JOS GONZALES DO Attending Physician: HERSON MALDONADO MD History and Physical CHIEF COMPLAINT: Abdominal pain and failed outpatient therapy for C. diff colitis. HISTORY OF PRESENT ILLNESS: [56 yo female with worsening abdominal pain, cramps , n/v/d. Been on outpatient treatment for C. Diff diarrhea for two weeks. Increased weakness with vague abdominal distention. Seen by ED provider and found to have mild elevation of wbc, lactic acidosis and enterocolitis on CT abdomen/pelvis. Hospitalist called for admission for failed outpatient therapy.] PAST MEDICAL HISTORY: ESOPHAGEAL REFLUX ASTHMA MIGRAINE HEADACHE ARTHRITIS ABNORMAL PAP SMEAR/SEVERAL JOEL 3 W/CRYO (DR. 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 FAMILY HISTORY: NONCONTRIBUTORY. ALLERGIES: Please see below. REVIEW OF SYSTEMS: CONSTITUTIONAL: on and off fever, chills, weight loss, nausea and vomiting with abdominal pain and cramping/diarrhea. HEENT: No headache, lightheadedness, blurred or loss of vision. No difficulty with speech or swallow. CARDIOVASCULAR: No chest pain, palpitations, paroxysmal nocturnal dyspnea or lower extremity edema RESPIRATORY: No cough, productive sputum, wheeze or hemoptysis GENITOURINARY: No dysuria, frequency, or discharge MUSCULOSKELETAL: No bone, muscle or joint pain. GASTROINTESTINAL: Positive Nausea, vomiting, with change in appetite. Bowel movements are loose without hematochezia or melena. No bladder or bowel incontinence. SKIN: No complaint of lesions, abrasions or rashes NEUROLOGICAL: No blurred vision, headaches, paraesthesias or paralysis PSYCHIATRIC: No depression, anxiety, audiovisual hallucinations. No suicidal ideations. ENDOCRINE: Denies history of diabetes or thyroid disorder. No history of endocrine abnormalities. HEMATOLOGIC/LYMPHATIC: No lumps, bumps or swelling of neck, axilla or groin. No night sweats or weight loss. HOME MEDICATIONS: Please see below. PHYSICAL EXAMINATION: VITAL SIGNS: see below, was hypotensive and given one liter bolus so far of IVNS GENERAL APPEARANCE: [NAD A&Ox3]. HEENT: [PERRLA, throat clear, neck supple, no JVD]. CARDIOVASCULAR: [RRR]. LUNGS: [CTA B]. ABDOMEN: [Mild tenderness, mild distention, but normoactive bowel sounds. No rebound]. MUSCULOSKELETAL: [negative]. EXTREMITIES: [bilateral calf tenderness]. NEUROLOGICAL: [CN II-XII grossly intact]. PSYCHIATRIC: [negative]. LABORATORY DATA: See below. IMAGING: CT ABD/PELVIS: Mid to distal small bowel loops with slightly edematous and enhancing scherer without much inflammatory change adjacent, which might reflect some enteritis. In addition, the left colon is collapsed proximally to the proximal sigmoid while the distal sigmoid to the rectum junction show similar thickening and enhancement of the wall as in that distal small bowel. This may reflect some gastroenteritis. Inflammatory bowel disease is not excluded but there is no significant pericolonic inflammatory change. No diverticulitis. No adenopathy, ascites or free air. 12 Lead ECG: NSR, ventricular rate: 77 bpm, no acute t wave abnormalities. MICROBIOLOGY: Please see below. IMPRESSION: 56 yo female with worsening symptoms of abdominal pain and diarrhea , elevated wbc and lactic acid. Failed outpatient therapy. PROBLEM LIST: 1. C diff colitis 2. Sepsis with lactic acidosis 3. Leukocytosis secondary to sepsis and C diff colitis 4. Asthma 5. GERD on PPI which may predispose to C diff colitis. (holding PPI) 6.Glaucoma 7. Fibromyalgia 8. Post-menopausal ( on HRT) PLAN: Admit to MED/SURG. Will follow the Sepsis protocol. She appears to be responsive with fluid resuscitation. History of allergy to PO VANCO. Will d/c PO Cipro and start IV Flagyl. Continue with IV fluids overnight. Repeat Lactic acid in 4 hours. Hold PPI DVT PROPHYLAXIS: Lovenox DISPOSITION: likely hospitalization for greater than two midnights Addendum: follow up on her lower extremity venous duplex u/s was negative for DVT. Vital Signs Vital Signs Date Time Temp Pulse Resp B/P (MAP) Pulse Ox O2 Delivery O2 Flow Rate FiO2 08/14/17 14:47 98.5 20 08/14/17 14:26 74 98 08/14/17 11:10 Room Air Laboratory Data Labs 24H Laboratory Tests 2 08/14/17 10:38: Immature Granulocyte % (Auto) 0.3H, White Blood Count 13.3H, Red Blood Count 4.62, Hemoglobin 13.9, Hematocrit 43.3, Mean Corpuscular Volume 93.7, Mean Corpuscular Hemoglobin 30.1, Mean Corpuscular Hemoglobin Concent 32.1, Red Cell Distribution Width 12.2, Platelet Count 262, Neutrophils (%) (Auto) 89.5H, Lymphocytes (%) (Auto) 6.8L, Monocytes (%) (Auto) 3.1, Eosinophils (%) (Auto) 0.1, Basophils (%) (Auto) 0.2, Neutrophils # (Auto) 11.9H, Lymphocytes # (Auto) 0.9L, Monocytes # (Auto) 0.4, Eosinophils # (Auto) 0.0, Basophils # (Auto) 0.0, Immature Granulocyte # (Auto) 0.0, Nucleated Red Blood Cells % (auto) 0.0, Anion Gap 7L, Glomerular Filtration Rate > 60.0, Lactic Acid Level 2.4*H, Calcium Level 8.4L, Aspartate Amino Transf (AST/SGOT) 13, Alanine Aminotransferase (ALT/SGPT) 20, Alkaline Phosphatase 70, Total Bilirubin 0.2, Direct Bilirubin < 0.1, Total Protein 6.9, Albumin 3.4, Albumin/Globulin Ratio 0.97L, Lipase 135 08/14/17 14:47: CBC/BMP Laboratory Tests 08/14/17 10:38 Red Blood Count 4.62, Mean Corpuscular Volume 93.7, Mean Corpuscular Hemoglobin 30.1, Mean Corpuscular Hemoglobin Concent 32.1, Red Cell Distribution Width 12.2 , Neutrophils (%) (Auto) 89.5 H, Lymphocytes (%) (Auto) 6.8 L, Monocytes (%) ( Auto) 3.1, Eosinophils (%) (Auto) 0.1, Basophils (%) (Auto) 0.2, Neutrophils # ( Auto) 11.9 H, Lymphocytes # (Auto) 0.9 L, Monocytes # (Auto) 0.4, Eosinophils # (Auto) 0.0, Basophils # (Auto) 0.0 Home Medications Scheduled Cholecalciferol (Vitamin D3) 2,000 Unit Cap, 2,000 UNIT PO DAILY Estradiol (Estradiol) 1 Mg Tab, 1 MG OR DAILY Estradiol (Estrace) 0.1 Mg/Gm Cre, 0.5 GRAM PV ASDIRECTED USES TWICE WEEKLY, NO SPECIFIC DAYS OF THE WEEK Lactobacillus Acidophilus (Bacid) 1 Tab Tab, 1 TAB PO QHS Multivitamins *[facility] [place]* (Thera M Plus *[facility] [place]*) 1 Tab Tab, 1 TAB PO DAILY Pantoprazole Sodium (Pantoprazole Sodium) 40 Mg Tab, 40 MG PO BID Pregabalin (Lyrica) 75 Mg Cap, 150 MG PO BID Scheduled PRN Acyclovir (Acyclovir) 400 Mg Tab, 400 MG PO BID PRN for COLD SORES Cyclobenzaprine HCl (Cyclobenzaprine HCl) 10 Mg Tab, 10 MG PO for MUSCLE SPASMS Sumatriptan Succinate (Sumatriptan Succinate) 100 Mg Tab, 100 MG PO for MIGRAINE Tramadol Hcl (Ultram) 50 Mg Tab, 50 MG PO Q6H PRN for PAIN Allergies Coded Allergies: Codeine (Verified Allergy, Severe, HIVES, SOB, ITCHY, 12/17/12) Vancomycin (Unverified Allergy, Severe, SOB, RASH, 12/17/12) Latex (Verified Allergy, Intermediate, HIVES,ITCHY, 12/17/12) Tetracycline (Verified Allergy, Intermediate, HIVES,ITCHY, 12/17/12) Topiramate (Verified Allergy, Mild, ITCHING, 12/17/12) Crab (Verified Adverse Reaction, Intermediate, LOWER GI BLEED, 11/11/09) Triptans (Verified Adverse Reaction, Unknown, PALPITATION/GI PAIN, 12/06/15 ) CELI PADRON DO Aug 14, 2017 15:15
[2017-08-14] MEDS ORDERED: MORPHINE 2 MG/ML 1ML SYRINGE IV PRN (17:30)
[2017-08-14] MEDS: ONDANSETRON 4MG/2ML VIAL (J2405) IV PRN (17:55)
[2017-08-14] MEDS: SUMAtriptan SUCCINATE 25 MG TAB PO PRN (17:55)
--- NOTE | 2017-08-14 18:22 | REP ---
BILATERAL LOWER EXTREMITY DOPPLER VENOUS ULTRASOUND: Comparison: None. Technique: The deep venous system of the bilateral lower extremities is evaluated with rico scale imaging, compression ultrasound, color imaging and duplex Doppler interrogation. Examination from the groin through the popliteal fossa into the proximal calf. Findings: There is full compressibility from the common femoral vein in the inguinal region through the popliteal vein on both sides. Color imaging confirms patency throughout the course of the deep venous system. There is respiratory variation and augmented flow at all levels. Impression: 1. No Doppler venous ultrasound evidence of DVT in the bilateral lower extremities. Signed by Regino Daniel MD 08/14/2017 06:14 P
[2017-08-14] MEDS ORDERED: PREGABALIN 75 MG CAP(LYRICA) PO SCH (21:00)
[2017-08-14] MEDS: PREGABALIN 50 MG CAP (LYRICA) PO SCH (21:00)
[2017-08-14] MEDS: LACTOBACILLUS ACIDOPHILUS CAP (BACID) PO SCH ×2 (21:00→22:00)
[2017-08-14] MEDS: metroNIDAZOLE 500 MG in APPROPRIATE DILUENT 1 EA IV SCH (22:00)
[2017-08-14 23:20] VITALS: BP 116/76
[2017-08-15] MEDS: ONDANSETRON 4MG/2ML VIAL (J2405) IV PRN ×3 (00:06→23:31)
[2017-08-15 06:00] VITALS: BP 114/73
[2017-08-15] MEDS: metroNIDAZOLE 500 MG in APPROPRIATE DILUENT 1 EA IV SCH (06:05)
[2017-08-15 07:34] LABS: MEAN CORPUSCULAR HEMOGLOBIN 30.3 pg (27.0-33.0); MEAN CORPUSCULAR HGB CONC 32.5 g/dl (32.0-36.5); MEAN CORPUSCULAR VOLUME 93.2 fl (80.0-96.0); PLATELET COUNT, AUTOMATED 228 10^3/uL (150-450); RED CELL DISTRIBUTION WIDTH 12.3 % (11.5-14.5); WHITE BLOOD COUNT 5.2 10^3/uL (4.0-10.0)
[2017-08-15 07:37] LABS: ANION GAP 9 MEQ/L (8-16); BLOOD UREA NITROGEN 9 MG/DL (7-18); CALCIUM LEVEL 7.3 MG/DL (8.5-10.1); CARBON DIOXIDE LEVEL 25 MEQ/L (21-32); CHLORIDE LEVEL 110 MEQ/L (98-107); CREATININE FOR GFR 0.57 MG/DL (0.55-1.02); GLOMERULAR FILTRATION RATE > 60.0 (>51); GLUCOSE, FASTING 89 MG/DL (70-105); POTASSIUM SERUM 3.1 MEQ/L (3.5-5.1); SODIUM LEVEL 144 MEQ/L (136-145)
[2017-08-15] MEDS: MULTIVITAMINS/MINERALS THERAP 1 TAB PO SCH ×2 (09:00→09:41)
[2017-08-15] MEDS: ENOXAPARIN 40 MG/0.4 ML SYRINGE (J1650) SC SCH (09:39)
[2017-08-15] MEDS: LACTOBACILLUS ACIDOPHILUS CAP (BACID) PO SCH ×4 (09:40→21:48)
[2017-08-15] MEDS: VITAMIN D 1,000 INTERNATIONAL UNITS TABLET PO SCH (09:40)
[2017-08-15] MEDS: PREGABALIN 50 MG CAP (LYRICA) PO SCH ×2 (09:40→21:47)
[2017-08-15] MEDS ORDERED: POTASSIUM CHLORIDE 10 MEQ SR TABLET PO ONE (11:00)
--- NOTE | 2017-08-15 12:13 | IPNPDOC ---
Subjective Date Seen The patient was seen on 08/15/17. Subjective Chief Complaint/HPI The patient is a 56-year-old female admitted with a reason for visit of C Difficule Colitis. Events since last encounter Continues to have abdominal pain and nausea , no vomiting. Says chronic diarrhea for 3 years or more ever since she had her gall bladder removed. its watery several times a day. No fever or chills. Objective Physical Examination General Exam: Positive: Alert, Cooperative, No Acute Distress Eye Exam: Positive: PERRLA, Conjunctiva & lids normal, EOMI, Negative: Sclera icteric ENT Exam: Positive: Atraumatic, Mucous membr. moist/pink, Pharynx Normal Neck Exam: Positive: Supple, Negative: JVD, thyromegaly Chest Exam: Positive: Clear to auscultation, Normal air movement Heart Exam: Positive: Rate Normal, Regular Rhythm, Normal S1, Normal S2, Negative: Murmurs, Rubs Abdomen Exam: Positive: BS Hyperactive, Soft, Tenderness Extremity Exam: Positive: Normal pulses, Negative: Clubbing, Cyanosis, Edema Skin Exam: Positive: Nl turgor and temperature, Negative: Rash, Breakdown Assessment /Plan Problems (1) C. difficile colitis Status: Acute Problem Text: will continue with metronidazole. (2) Chronic diarrhea Status: Chronic Problem Text: Present more than 3 years had Egd and colonoscopy before and also capsule ph study with Dr Lynn. Symptoms started after GB surgery may be related to excessive bile salts . Once c diff is treated may have to follow up with GI as outpateit for chronic diarrhea. (3) Sepsis Status: Acute Problem Text: due to C diff infection . will continue with metronidazole. (4) Asthma Status: Chronic (5) GERD (gastroesophageal reflux disease) Status: Chronic (6) Fibromyalgia Status: Chronic (7) Cervical post-laminectomy syndrome Status: Chronic (8) Migraine Status: Chronic Plan/VTE VTE Prophylaxis Ordered?: Yes VS, I&O, 24H, Fishbone Vital Signs/I&O Vital Signs Date Time Temp Pulse Resp B/P (MAP) Pulse Ox O2 Delivery O2 Flow Rate FiO2 08/15/17 06:00 97.7 76 18 114/73 (87) 95 Room Air I&O- Last 24 Hours up to 6 AM 08/16/17 06:00 Intake Total 0 ml Output Total 0 ml Balance 0 ml Laboratory Data 24H LABS Laboratory Tests 2 08/14/17 14:47: Lactic Acid Followup at 4 Hours 2.3*H 08/14/17 18:51: Lactic Acid Level 2.4*H 08/14/17 23:54: Lactic Acid Followup at 4 Hours 1.6 08/15/17 07:08: Nucleated Red Blood Cells % (auto) 0.0, Anion Gap 9, Glomerular Filtration Rate > 60.0, Blood Urea Nitrogen 9#, Creatinine 0.57, Sodium Level 144, Potassium Level 3.1#L, Chloride Level 110H, Carbon Dioxide Level 25, Calcium Level 7.3L 08/15/17 07:09: Lactic Acid Level 1.4 CBC/BMP Laboratory Tests 08/15/17 07:08 Red Blood Count 3.99 L, Mean Corpuscular Volume 93.2, Mean Corpuscular Hemoglobin 30.3, Mean Corpuscular Hemoglobin Concent 32.5, Red Cell Distribution Width 12.3, Calcium Level 7.3 L Microbiology Microbiology 08/15/17 Gastrointestinal Tract Panel (PCR) - Final, Complete HERSON MALDONADO MD Aug 15, 2017 12:13
[2017-08-15] MEDS: metroNIDAZOLE (FLAGYL) 500 MG TAB PO SCH ×2 (14:07→21:47)
[2017-08-15 15:00] VITALS: BP 116/74
[2017-08-15 22:00] VITALS: BP 100/60
[2017-08-15] MEDS: SUMAtriptan SUCCINATE 25 MG TAB PO PRN (23:40)
[2017-08-16 06:00] VITALS: BP 124/81
[2017-08-16] MEDS: metroNIDAZOLE (FLAGYL) 500 MG TAB PO SCH ×3 (06:10→21:41)
[2017-08-16] MEDS: ONDANSETRON 4MG/2ML VIAL (J2405) IV PRN ×3 (06:16→21:41)
[2017-08-16 07:09] LABS: MEAN CORPUSCULAR HGB CONC 32.6 g/dl (32.0-36.5); PLATELET COUNT, AUTOMATED 245 10^3/uL (150-450); RED CELL DISTRIBUTION WIDTH 12.5 % (11.5-14.5); WHITE BLOOD COUNT 4.3 10^3/uL (4.0-10.0)
[2017-08-16 07:27] LABS: ANION GAP 8 MEQ/L (8-16); BLOOD UREA NITROGEN 8 MG/DL (7-18); CARBON DIOXIDE LEVEL 26 MEQ/L (21-32); CHLORIDE LEVEL 108 MEQ/L (98-107); CREATININE FOR GFR 0.55 MG/DL (0.55-1.02); GLOMERULAR FILTRATION RATE > 60.0 (>51); GLUCOSE, FASTING 98 MG/DL (70-105); POTASSIUM SERUM 3.4 MEQ/L (3.5-5.1); SODIUM LEVEL 142 MEQ/L (136-145)
[2017-08-16] MEDS: PREGABALIN 50 MG CAP (LYRICA) PO SCH ×2 (08:57→21:42)
[2017-08-16] MEDS: MULTIVITAMINS/MINERALS THERAP 1 TAB PO SCH (08:57)
[2017-08-16] MEDS: LACTOBACILLUS ACIDOPHILUS CAP (BACID) PO SCH ×4 (08:57→21:41)
[2017-08-16] MEDS: VITAMIN D 1,000 INTERNATIONAL UNITS TABLET PO SCH (08:57)
[2017-08-16] MEDS: ENOXAPARIN 40 MG/0.4 ML SYRINGE (J1650) SC SCH (08:58)
--- NOTE | 2017-08-16 13:36 | IPNPDOC ---
Subjective Date Seen The patient was seen on 08/16/17. Subjective Chief Complaint/HPI The patient is a 56-year-old female admitted with a reason for visit of C Difficule Colitis. Events since last encounter continues to have diarrhea and abdominal pain , no fever or chills, but continues to feel nauseaous. no vomiting . no chest pain or sob no cough or phlegm. Objective Physical Examination General Exam: Positive: Alert, Cooperative, No Acute Distress Eye Exam: Positive: PERRLA, Conjunctiva & lids normal, EOMI, Negative: Sclera icteric ENT Exam: Positive: Atraumatic, Mucous membr. moist/pink, Pharynx Normal Neck Exam: Positive: Supple, Negative: JVD, thyromegaly Chest Exam: Positive: Clear to auscultation, Normal air movement Heart Exam: Positive: Rate Normal, Regular Rhythm, Normal S1, Normal S2, Negative: Murmurs, Rubs Abdomen Exam: Positive: BS Hyperactive, Soft, Tenderness Extremity Exam: Positive: Normal pulses, Negative: Clubbing, Cyanosis, Edema Skin Exam: Positive: Nl turgor and temperature, Negative: Rash, Breakdown Assessment /Plan Problems (1) C. difficile colitis Status: Acute Problem Text: will continue with metronidazole. (2) Chronic diarrhea Status: Chronic Problem Text: Present more than 3 years had Egd and colonoscopy before and also capsule ph study with Dr Lynn. Symptoms started after GB surgery may be related to excessive bile salts . Once c diff is treated may have to follow up with GI as outpateit for chronic diarrhea. (3) Sepsis Status: Acute Problem Text: due to C diff infection . will continue with metronidazole. (4) Asthma Status: Chronic (5) GERD (gastroesophageal reflux disease) Status: Chronic (6) Fibromyalgia Status: Chronic (7) Cervical post-laminectomy syndrome Status: Chronic (8) Migraine Status: Chronic Plan/VTE VTE Prophylaxis Ordered?: Yes VS, I&O, 24H, Raibone Vital Signs/I&O Vital Signs Date Time Temp Pulse Resp B/P (MAP) Pulse Ox O2 Delivery O2 Flow Rate FiO2 08/16/17 06:00 96.5 66 18 124/81 (95) 96 Room Air I&O- Last 24 Hours up to 6 AM 08/17/17 06:00 Intake Total 0 ml Output Total 0 ml Balance 0 ml Laboratory Data 24H LABS Laboratory Tests 2 08/16/17 06:40: Nucleated Red Blood Cells % (auto) 0.0, Anion Gap 8, Glomerular Filtration Rate > 60.0, Blood Urea Nitrogen 8, Creatinine 0.55, Sodium Level 142, Potassium Level 3.4L, Chloride Level 108H, Carbon Dioxide Level 26, Calcium Level 8.0L CBC/BMP Laboratory Tests 08/16/17 06:40 Red Blood Count 4.13, Mean Corpuscular Volume 92.0, Mean Corpuscular Hemoglobin 30.0, Mean Corpuscular Hemoglobin Concent 32.6, Red Cell Distribution Width 12.5 , Calcium Level 8.0 L Microbiology Microbiology 08/15/17 Gastrointestinal Tract Panel (PCR) - Final, Complete HERSON MALDONADO MD Aug 16, 2017 13:36
[2017-08-16] MEDS ORDERED: POTASSIUM CHLORIDE 10 MEQ SR TABLET PO ONE (13:45)
[2017-08-16 15:00] VITALS: BP 122/82
[2017-08-16 22:00] VITALS: BP 121/77
[2017-08-17] MEDS: metroNIDAZOLE (FLAGYL) 500 MG TAB PO SCH ×3 (05:58→20:55)
[2017-08-17 06:00] VITALS: BP 105/63
[2017-08-17 07:14] LABS: MEAN CORPUSCULAR HEMOGLOBIN 30.1 pg (27.0-33.0); MEAN CORPUSCULAR HGB CONC 33.1 g/dl (32.0-36.5); MEAN CORPUSCULAR VOLUME 91.2 fl (80.0-96.0); PLATELET COUNT, AUTOMATED 230 10^3/uL (150-450); RED CELL DISTRIBUTION WIDTH 12.4 % (11.5-14.5); WHITE BLOOD COUNT 4.3 10^3/uL (4.0-10.0)
[2017-08-17 07:38] LABS: ANION GAP 8 MEQ/L (8-16); BLOOD UREA NITROGEN 9 MG/DL (7-18); CALCIUM LEVEL 7.8 MG/DL (8.5-10.1); CARBON DIOXIDE LEVEL 28 MEQ/L (21-32); CHLORIDE LEVEL 106 MEQ/L (98-107); CREATININE FOR GFR 0.57 MG/DL (0.55-1.02); GLOMERULAR FILTRATION RATE > 60.0 (>51); GLUCOSE, FASTING 102 MG/DL (70-105); POTASSIUM SERUM 3.6 MEQ/L (3.5-5.1); SODIUM LEVEL 142 MEQ/L (136-145)
[2017-08-17] MEDS: PREGABALIN 50 MG CAP (LYRICA) PO SCH ×2 (08:40→20:54)
[2017-08-17] MEDS: OMEPRAZOLE 20 MG CAP PO SCH ×2 (08:40→20:55)
[2017-08-17] MEDS: ENOXAPARIN 40 MG/0.4 ML SYRINGE (J1650) SC SCH (08:41)
[2017-08-17] MEDS: VITAMIN D 1,000 INTERNATIONAL UNITS TABLET PO SCH (08:41)
[2017-08-17] MEDS: MULTIVITAMINS/MINERALS THERAP 1 TAB PO SCH (08:41)
[2017-08-17] MEDS: LACTOBACILLUS ACIDOPHILUS CAP (BACID) PO SCH ×4 (08:41→20:54)
--- NOTE | 2017-08-17 11:23 | IPNPDOC ---
Subjective Date Seen The patient was seen on 08/17/17. Subjective Chief Complaint/HPI The patient is a 56-year-old female admitted with a reason for visit of C Difficule Colitis. Events since last encounter Says stool is getting thicker. abdominal pain a little better. no fever or chills, no chest pain or sob . continues to complain of nausea. Objective Physical Examination General Exam: Positive: Alert, Cooperative, No Acute Distress Eye Exam: Positive: PERRLA, Conjunctiva & lids normal, EOMI, Negative: Sclera icteric ENT Exam: Positive: Atraumatic, Mucous membr. moist/pink, Pharynx Normal Neck Exam: Positive: Supple, Negative: JVD, thyromegaly Chest Exam: Positive: Clear to auscultation, Normal air movement Heart Exam: Positive: Rate Normal, Regular Rhythm, Normal S1, Normal S2, Negative: Murmurs, Rubs Abdomen Exam: Positive: BS Hyperactive, Soft, Tenderness Extremity Exam: Positive: Normal pulses, Negative: Clubbing, Cyanosis, Edema Skin Exam: Positive: Nl turgor and temperature, Negative: Rash, Breakdown Assessment /Plan Problems (1) C. difficile colitis Status: Resolved Problem Text: C diff this admission is negative, stool lactoferrin also negative. Had positive c diff in june was treated with deficid as outpatient. will dc metronidazole. (2) Chronic diarrhea Status: Chronic Problem Text: Present more than 3 years had Egd and colonoscopy before and also capsule ph study with Dr Lynn. will have to follow up with GI as outpateit for chronic diarrhea. Possibly IBS will send further stool studies. will give one dose of imodium. lactacidosis possibly related to dehydration. improved with IVF (3) Sepsis Status: Resolved Problem Text: No c diff infection this admission . No sepsis. (4) Asthma Status: Chronic (5) GERD (gastroesophageal reflux disease) Status: Chronic Problem Text: will give omeprazole and sucralfate. (6) Fibromyalgia Status: Chronic (7) Cervical post-laminectomy syndrome Status: Chronic (8) Migraine Status: Chronic Plan/VTE VTE Prophylaxis Ordered?: Yes VS, I&O, 24H, Fishbone Vital Signs/I&O Vital Signs Date Time Temp Pulse Resp B/P (MAP) Pulse Ox O2 Delivery O2 Flow Rate FiO2 08/17/17 06:00 97.5 63 18 105/63 (77) 95 Room Air Laboratory Data 24H LABS Laboratory Tests 2 08/17/17 06:49: Nucleated Red Blood Cells % (auto) 0.0, Anion Gap 8, Glomerular Filtration Rate > 60.0, Blood Urea Nitrogen 9, Creatinine 0.57, Sodium Level 142, Potassium Level 3.6, Chloride Level 106, Carbon Dioxide Level 28, Calcium Level 7.8L 08/17/17 09:47: CBC/BMP Laboratory Tests 08/17/17 06:49 Red Blood Count 4.08, Mean Corpuscular Volume 91.2, Mean Corpuscular Hemoglobin 30.1, Mean Corpuscular Hemoglobin Concent 33.1, Red Cell Distribution Width 12.4 , Calcium Level 7.8 L Microbiology Microbiology 08/17/17 Stool Lactoferrin - Final, Complete 08/17/17 Stool Microscopic Examination, Received Pending 08/17/17 Stool Fat, Qualitative (SADIQ), Received Pending 08/15/17 Gastrointestinal Tract Panel (PCR) - Final, Complete HERSON MALDONADO MD Aug 17, 2017 11:23
[2017-08-17] MEDS ORDERED: LOPERAMIDE 2 MG CAP PO ONE (11:30)
[2017-08-17] MEDS: SUCRALFATE SUSP 1GM/10ML UD PO SCH ×3 (11:36→20:54)
[2017-08-17 14:00] VITALS: BP 99/66
[2017-08-17] MEDS: ONDANSETRON 4MG/2ML VIAL (J2405) IV PRN (17:12)
[2017-08-17] MEDS ORDERED: PROMETHAZINE 25 MG TAB PO ONE (21:30)
[2017-08-17 22:00] VITALS: BP 103/66
[2017-08-17] MEDS: SUMAtriptan SUCCINATE 25 MG TAB PO PRN (22:04)
[2017-08-18 06:00] VITALS: BP 102/64
[2017-08-18] MEDS: ONDANSETRON 4MG/2ML VIAL (J2405) IV PRN ×2 (06:12→12:35)
[2017-08-18] MEDS: metroNIDAZOLE (FLAGYL) 500 MG TAB PO SCH ×2 (06:12→13:16)
[2017-08-18 06:55] LABS: MEAN CORPUSCULAR HEMOGLOBIN 30.4 pg (27.0-33.0); MEAN CORPUSCULAR HGB CONC 33.2 g/dl (32.0-36.5); MEAN CORPUSCULAR VOLUME 91.6 fl (80.0-96.0); PLATELET COUNT, AUTOMATED 253 10^3/uL (150-450); RED CELL DISTRIBUTION WIDTH 12.2 % (11.5-14.5); WHITE BLOOD COUNT 4.8 10^3/uL (4.0-10.0)
[2017-08-18 07:14] LABS: ANION GAP 6 MEQ/L (8-16); BLOOD UREA NITROGEN 10 MG/DL (7-18); CALCIUM LEVEL 8.7 MG/DL (8.5-10.1); CARBON DIOXIDE LEVEL 33 MEQ/L (21-32); CHLORIDE LEVEL 103 MEQ/L (98-107); CREATININE FOR GFR 0.54 MG/DL (0.55-1.02); GLOMERULAR FILTRATION RATE > 60.0 (>51); GLUCOSE, FASTING 105 MG/DL (70-105); POTASSIUM SERUM 3.5 MEQ/L (3.5-5.1); SODIUM LEVEL 142 MEQ/L (136-145)
[2017-08-18] MEDS: LACTOBACILLUS ACIDOPHILUS CAP (BACID) PO SCH ×2 (08:02→12:34)
[2017-08-18] MEDS: OMEPRAZOLE 20 MG CAP PO SCH (08:02)
[2017-08-18] MEDS: VITAMIN D 1,000 INTERNATIONAL UNITS TABLET PO SCH (08:02)
[2017-08-18] MEDS: PREGABALIN 50 MG CAP (LYRICA) PO SCH (08:02)
[2017-08-18] MEDS: ENOXAPARIN 40 MG/0.4 ML SYRINGE (J1650) SC SCH (08:02)
[2017-08-18] MEDS: SUCRALFATE SUSP 1GM/10ML UD PO SCH ×2 (08:02→12:34)
[2017-08-18] MEDS: MULTIVITAMINS/MINERALS THERAP 1 TAB PO SCH (08:02)
[2017-08-18] MEDS ORDERED: IMOD2CAP PO (09:50)
[2017-08-18] MEDS ORDERED: PROM12.55 PO (09:53)
--- NOTE | 2017-08-20 23:17 | DSES ---
DATE OF ADMISSION: 08/14/2017 DATE OF DISCHARGE: 08/18/2017 PRIMARY CARE PROVIDER: The resident clinic. DISCHARGE DIAGNOSES: 1. Acute on chronic diarrhea with dehydration. 2. Lactic acidosis due to dehydration. 3. Asthma. 4. Gastroesophageal reflux disease (GERD). 5. Fibromyalgia. 6. Cervical postlaminectomy syndrome. 7. Migraine. DISCHARGE MEDICATIONS: - Imodium 2 mg by mouth twice a day as needed for diarrhea - promethazine 12.5 mg by mouth twice a day as needed for vomiting - acyclovir 400 mg by mouth twice a day cold sores - cholecalciferol 2000 units daily - cyclobenzaprine 10 mg by mouth as needed - estradiol 1 mg daily - estradiol per vagina 0.5 grams as directed - lactobacillus one tablet by mouth at bedtime - multivitamins one tablet by mouth daily - pantoprazole 40 mg by mouth twice a day - Lyrica 150 mg by mouth twice a day - sumatriptan 100 mg by mouth as needed for migraine - tramadol 50 mg by mouth every 6 hours as needed for pain HOSPITAL COURSE: This is a 57-year-old female who presented to the hospital with abdominal pain, intractable watery diarrhea, abdominal distention for 2-3 weeks. The patient was recently diagnosed with Clostridium difficile (C diff) colitis in June 2017 and was treated with Dificid as an outpatient; however, the patient's abdominal pain and diarrhea did not improve, so it was felt that she may have failed outpatient therapy of Clostridium difficile colitis, so came to the hospital. On presentation, the patient was found to have lactic acidosis, mild hypotension with blood pressures in 80s over 50s. CT scan of the abdomen and pelvis showed mild edematous changes of the small bowel loops without much inflammatory change, which could reflect some enteritis. There was also some thickening and enhancement of the wall of the distal sigmoid and rectum junction and it was felt that the patient may have gastroenteritis versus some inflammatory bowel disease. The patient had gastrointestinal panel sent on admission, which was negative for Clostridium difficile or any other bacterial etiology. Patient was initially started on metronidazole in the hospital, but after the stool came back negative , metronidazole was stopped, and the patient was put on Imodium. After Imodium, patient's diarrhea stopped. Patient did followup with gastroenterology as an outpatient and had colonoscopy done in 2013 and endoscopy also done in 2013. Endoscopy was repeated in 2016 with Gore capsule. Colonic biopsies from 2013 were negative for any features of inflammatory bowel disease or any microscopic colitis, so it was felt that the patient's acute worsening of the diarrhea could have been due to Clostridium difficile infection and the patient's chronic diarrhea going on for 3-5 years could be related to irritable bowel syndrome. However, the patient does need further followup with gastroenterology and further colonoscopies if indicated to again evaluate for inflammatory bowel disease. At this point, the patient responded well to Imodium with resolution of her diarrhea, though she did continue to complain of some nausea and some generalized abdominal pain, but it had reduced compared to on admission. On the day of discharge, the patient's vital signs were stable, functionally she was at baseline and her symptoms were almost resolved. PHYSICAL EXAMINATION: Vital signs: Temperature 96.8, pulse 59, respiratory rate 18, blood pressure 102/64, pulse oximetry 96% in room air. General: Patient awake, alert, oriented times three, sitting up in bed in no acute distress. HEENT: Normocephalic, atraumatic. Moist mucous membranes. Anicteric eyes. Chest: Clear to auscultation. Cardiovascular: S1, S2, regular. No rub, murmur, or gallop. Abdomen: Soft, mildly tender to palpation. Bowel sounds are normal. Extremities: No edema. LABORATORY DATA: WBC 4.8, hemoglobin 13.1, platelets 253. Sodium 142, potassium 3.5, chloride 103, bicarbonate 33, BUN 10, creatinine 0.5, glucose 105, calcium 8.7. DISPOSITION: Patient is discharged home in stable condition. DISCHARGE INSTRUCTIONS: Patient to followup with primary care provider in 1-2 weeks. Diet as tolerated. Activity as tolerated. MTDD
== END 2017-08-18 13:55 | disposition home or self-care (01) | DRG 249 ==
LOC: M ED 09:25 → EDBD 09:25 → M ED INP 14:17 → M MS5PR 23:10
PROVIDERS: ADMIT Hospitalist; ATTEND Internal Medicine Nephrology
DX: K52.9 Noninfective gastroenteritis and colitis, unspecified (principal); E87.2 Acidosis; K21.9 Gastro-esophageal reflux disease without esophagitis; H40.9 Unspecified glaucoma; F32.9 Major depressive disorder, single episode, unspecified; M96.1 Postlaminectomy syndrome, not elsewhere classified; Z79.899 Other long term (current) drug therapy; Z88.5 Allergy status to narcotic agent; Z88.1 Allergy status to other antibiotic agents; Z91.040 Latex allergy status; Z91.013 Allergy to seafood; Z88.8 Allergy status to other drugs, medicaments and biological substances

== ENCOUNTER → 2017-08-31 | Outpatient (CLI) | payer OTHER | LOC: M PAIN 15:30 | DX: G89.29 Other chronic pain (principal); M96.1 Postlaminectomy syndrome, not elsewhere classified; M54.2 Cervicalgia; M79.1 Myalgia; K21.9 Gastro-esophageal reflux disease without esophagitis; J45.909 Unspecified asthma, uncomplicated; G43.909 Migraine, unspecified, not intractable, without status migrainosus; F32.9 Major depressive disorder, single episode, unspecified; Z88.1 Allergy status to other antibiotic agents; Z91.013 Allergy to seafood; Z91.040 Latex allergy status; Z79.891 Long term (current) use of opiate analgesic; Z79.899 Other long term (current) drug therapy | CPT/HCPCS: G0463 ==

== ENCOUNTER → 2017-09-28 | Outpatient (REF) | payer OTHER | LOC: M LAB REF 14:49 | DX: R19.7 Diarrhea, unspecified (principal) ==

== ENCOUNTER 2017-11-08 06:32 | Day surgery (SDC) | payer OTHER ==
[2017-11-08] MEDS ORDERED: LIDOCAINE 2% INJ 100 MG/5 ML SDV (FOR ANES.) As Ordered (07:11)
[2017-11-08] MEDS ORDERED: PROPOFOL 200 MG/20 ML VIAL As Ordered (07:11)
[2017-11-08] MEDS: NS 1,000 ML IV (07:15)
[2017-11-08] MEDS ORDERED: PHENYLephrine HCL 500 MCG/5 ML (100MCG/ML) SYRINGE (J2370) As Ordered (08:11)
== END 2017-11-08 08:50 | disposition home or self-care (01) ==
LOC: M OPP 06:32
DX: R93.3 Abnormal findings on diagnostic imaging of other parts of digestive tract (principal); R19.7 Diarrhea, unspecified; K64.8 Other hemorrhoids; K58.9 Irritable bowel syndrome, unspecified; K21.9 Gastro-esophageal reflux disease without esophagitis; R12 Heartburn; M19.90 Unspecified osteoarthritis, unspecified site; M54.9 Dorsalgia, unspecified; G47.8 Other sleep disorders; G47.30 Sleep apnea, unspecified; R06.83 Snoring; Z88.5 Allergy status to narcotic agent; Z88.1 Allergy status to other antibiotic agents; Z88.8 Allergy status to other drugs, medicaments and biological substances; Z91.040 Latex allergy status; Z91.013 Allergy to seafood; Z79.899 Other long term (current) drug therapy
CPT/HCPCS: 45380

== ENCOUNTER → 2017-11-14 | Outpatient (CLI) | payer OTHER | LOC: M PAIN 11:00 | DX: M79.1 Myalgia (principal); M96.1 Postlaminectomy syndrome, not elsewhere classified; G43.709 Chronic migraine without aura, not intractable, without status migrainosus; J45.909 Unspecified asthma, uncomplicated; Z79.891 Long term (current) use of opiate analgesic; Z79.899 Other long term (current) drug therapy; Z87.891 Personal history of nicotine dependence; Z91.013 Allergy to seafood; Z91.040 Latex allergy status; Z88.8 Allergy status to other drugs, medicaments and biological substances | CPT/HCPCS: G0463 ==

== ENCOUNTER → 2017-11-20 | Outpatient (REF) | payer OTHER ==
[2017-11-20 19:19] LABS: BASO % 0.2 % (0.0-1.0); EOS % 0.9 % (0.0-3.0); HEMATOCRIT 38.3 % (36.0-47.0); HEMOGLOBIN 12.7 g/dl (12.0-16.0); IMMATURE GRANULOCYTE % 0.2 % (0-3.0); LYMPH # 1.7 10^3/uL (1.5-4.5); LYMPH % 38.9 % (24.0-44.0); MEAN CORPUSCULAR HEMOGLOBIN 30.3 pg (27.0-33.0); MEAN CORPUSCULAR HGB CONC 33.2 g/dl (32.0-36.5); MEAN CORPUSCULAR VOLUME 91.4 fl (80.0-96.0); MONO # 0.3 10^3/uL (0.0-0.8); MONO % 7.4 % (0.0-5.0); NEUTROPHILS # 2.3 10^3/uL (1.8-7.7); NEUTROPHILS % 52.4 % (36.0-66.0); PLATELET COUNT, AUTOMATED 280 10^3/uL (150-450); RED BLOOD COUNT 4.19 10^6/uL (4.00-5.40); RED CELL DISTRIBUTION WIDTH 12.5 % (11.5-14.5); WHITE BLOOD COUNT 4.3 10^3/uL (4.0-10.0)
[2017-11-20 19:40] LABS: C REACTIVE PROTEIN QUANTITATIV 0.41 MG/DL (0.00-0.30)
[2017-11-20 20:06] LABS: ERYTHROCYTE SEDIMENTATION RATE 7 mm/hr (0-30)
== END ==
LOC: M LABDRAW1 15:22
DX: Z47.89 Encounter for other orthopedic aftercare (principal)
CPT/HCPCS: 86140

== ENCOUNTER → 2017-11-29 | Outpatient (REF) | payer OTHER ==
[2017-11-29 18:24] LABS: APPEARANCE, URINE CLEAR (CLEAR); BACTERIA, URINE AUTO NEGATIVE (NEGATIVE); BILIRUBIN, URINE AUTO NEGATIVE (NEGATIVE); BLOOD, URINE BLOOD NEGATIVE (NEGATIVE); COLOR, URINE YELLOW (YELLOW); GLUCOSE, URINE (UA) AUTO NEGATIVE (NEGATIVE); KETONE, URINE AUTO NEGATIVE (NEGATIVE); LEUKOCYTE ESTERASE, URINE AUTO NEGATIVE (NEGATIVE); MUCUS, URINE SMALL (NEGATIVE); NITRITE, URINE AUTO NEGATIVE (NEGATIVE); PROTEIN, URINE AUTO NEGATIVE (NEGATIVE); RBC, URINE AUTO 0 /HPF (0-3); SPECIFIC GRAVITY URINE AUTO 1.018 (1.002-1.035); SQUAMOUS EPITHELIAL CELL UR AU 2 /HPF (0-6); UROBILINOGEN, URINE AUTO 0.2 mg/dL (0.0-2.0); WBC, URINE AUTO 0 /HPF (0-3)
[2017-11-29 18:27] LABS: ANION GAP 6 MEQ/L (8-16); BLOOD UREA NITROGEN 14 MG/DL (7-18); CALCIUM LEVEL 8.4 MG/DL (8.5-10.1); CARBON DIOXIDE LEVEL 29 MEQ/L (21-32); CHLORIDE LEVEL 105 MEQ/L (98-107); CREATININE FOR GFR 0.68 MG/DL (0.55-1.30); GLOMERULAR FILTRATION RATE > 60.0 (>51); GLUCOSE, FASTING 124 MG/DL (70-100); POTASSIUM SERUM 3.8 MEQ/L (3.5-5.1); SODIUM LEVEL 140 MEQ/L (136-145)
[2017-11-29 18:36] LABS: ESTIMATED AVERAGE GLUCOSE 126 MG/DL (60-110)
== END ==
LOC: M SFHCPLAZ 15:11
DX: R39.198 Other difficulties with micturition (principal); Z13.1 Encounter for screening for diabetes mellitus; M54.5 Low back pain
CPT/HCPCS: 83036

== ENCOUNTER → 2017-12-07 | Outpatient (CLI) | payer OTHER | LOC: M RAD 17:42 | DX: M51.27 Other intervertebral disc displacement, lumbosacral region (principal); M54.41 Lumbago with sciatica, right side | CPT/HCPCS: 72148 ==

== ENCOUNTER → 2017-12-12 | Outpatient (CLI) | payer OTHER ==
[~2017-12-12] MED LIST changes: -/BACL20TA; -/LANS30GR; -/ONDA4TA PO; -ACYC400T PO; -ADV250INH INH; -ALBU17IN INH; -ALBU83IN INH; -AMIT10TA2 PO; -AMOX500C; -BACL10TA2 OR; -BACL10TA2 PO; -BENA25CA PO; -BLACK COHASH PO; +BUPIVACAINE HCL 0.25% 10 ML VIAL As Ordered; +BUPIVACAINE HCL 0.25% 30 ML VIAL As Ordered; -CALCIUM PO; -CARA1TAB2 PO; -CYCL10TA PO; -Cranberry PO; -DIAZ5TAB; -DICY20TA11 PO; -DULE100A INH; -ESTR1TAB OR; -EXCETAB80 PO; -FIORCAP3 OR; -FIORCAP7 PO; -FLAX1300 PO; -FLEX10TA2 PO; -GINKGO BILOBA OR; -KLS75TAB OR; -L-LYSINE PO; -LUTE10TA PO; -LUTE6TAB PO; -LYRI150C; -LYRI200C; -LYRI75CA PO; -MAXA10TA20 PO; -MAXA5TAB10 PO; -MELOPOW; -META48.54 PO; -META800T82 PO; -MONT10TA2 PO; -MULT1TAB18 PO; -MULTIVIT PO; -NEXI20CA; -OMEP40CA2 PO; -ORPH-8 PO; -OXYC10TA56; -Omega 3 PO; -PANT40TA2 PO; -PEPC1TAB4 PO; -PERC5TAB8 OR; -PHEN 25 PO; -PRED20TA PO; -PREG100CA OR; -PROM25TA PO; -RELPAX; -RELPAX OR; -SAVELLA OR; -SOMA350T OR; -SUMA100T2 PO; -TIZA2TA PO; -TIZA2TAB3 PO; -TIZA4TAB OR; -TOPA25TA PO; -TOPI25TA2 OR; -TRAM50TA2; -TRAM50TA2 OR; -TRAM50TA2 PO; -TRAZ50TA11 PO; +TRIAMCINOLONE ACETONIDE SUSP 40 MG/ML VIAL (J3301) As Ordered; -TRIXAICIN TOP; -ULTR50TA PO; -ULTRTA OR; -VALI5TAB PO; -VICO5TAB OR; -VIIB10TA PO; -VIT D 2000 PO; -VITA1CAP2 PO; -VITA2000 PO; -VITA500019 PO; -VITAMIN D PO; -VITAMIN D50000 UNT; -VOLT1GEL TOP; -ZONI25CA2 PO; -ZYRT10CA PO; -[UNRECOGNIZED DRUG - CODE]; -estrace cream EXT; -imitrex PO; -relpax PO
== END ==
LOC: M PAIN 15:00
DX: G89.29 Other chronic pain (principal); M79.1 Myalgia; M54.2 Cervicalgia; J45.909 Unspecified asthma, uncomplicated; K21.9 Gastro-esophageal reflux disease without esophagitis; M19.90 Unspecified osteoarthritis, unspecified site; F32.9 Major depressive disorder, single episode, unspecified; Z79.899 Other long term (current) drug therapy; Z88.1 Allergy status to other antibiotic agents; Z88.8 Allergy status to other drugs, medicaments and biological substances; Z91.013 Allergy to seafood; Z91.040 Latex allergy status
CPT/HCPCS: J3301

== ENCOUNTER → 2017-12-26 | Outpatient (CLI) | payer OTHER | END | disposition home or self-care (01) | LOC: M PAIN 11:30 | DX: G89.29 Other chronic pain (principal); M79.1 Myalgia; M96.1 Postlaminectomy syndrome, not elsewhere classified; G43.709 Chronic migraine without aura, not intractable, without status migrainosus; M54.81 Occipital neuralgia; K21.9 Gastro-esophageal reflux disease without esophagitis; J45.909 Unspecified asthma, uncomplicated; G43.909 Migraine, unspecified, not intractable, without status migrainosus; H40.9 Unspecified glaucoma; A60.00 Herpesviral infection of urogenital system, unspecified; N95.2 Postmenopausal atrophic vaginitis; Z79.899 Other long term (current) drug therapy; Z79.890 Hormone replacement therapy; Z91.018 Allergy to other foods; Z91.048 Other nonmedicinal substance allergy status; Z91.040 Latex allergy status; Z88.1 Allergy status to other antibiotic agents; Z88.8 Allergy status to other drugs, medicaments and biological substances; Z87.891 Personal history of nicotine dependence | CPT/HCPCS: G0463 ==

== ENCOUNTER → 2018-01-23 | Outpatient (REF) | payer OTHER ==
[2018-01-23 14:16] LABS: BASO % 0.4 % (0.0-1.0); EOS # 0.1 10^3/uL (0.0-0.50); EOS % 1.3 % (0.0-3.0); HEMATOCRIT 39.2 % (36.0-47.0); HEMOGLOBIN 12.7 g/dl (12.0-15.5); IMMATURE GRANULOCYTE % 0.2 % (0-3.0); LYMPH # 1.6 10^3/uL (1.5-4.5); LYMPH % 35.2 % (24.0-44.0); MEAN CORPUSCULAR HEMOGLOBIN 30.5 pg (27.0-33.0); MEAN CORPUSCULAR HGB CONC 32.4 g/dl (32.0-36.5); MEAN CORPUSCULAR VOLUME 94.2 fl (80.0-96.0); MONO # 0.3 10^3/uL (0.0-0.8); MONO % 6.7 % (0.0-5.0); NEUTROPHILS # 2.6 10^3/uL (1.8-7.7); NEUTROPHILS % 56.2 % (36.0-66.0); PLATELET COUNT, AUTOMATED 264 10^3/uL (150-450); RED BLOOD COUNT 4.16 10^6/uL (4.00-5.40); RED CELL DISTRIBUTION WIDTH 12.5 % (11.5-14.5); WHITE BLOOD COUNT 4.6 10^3/uL (4.0-10.0)
[2018-01-23 14:35] LABS: ALBUMIN 3.1 GM/DL (3.2-5.2); ALBUMIN/GLOBULIN RATIO 1.03 (1.00-1.93); ALKALINE PHOSPHATASE 67 U/L (45-117); ALT/SGPT 23 U/L (12-78); ANION GAP 5 MEQ/L (8-16); AST/SGOT 18 U/L (7-37); BILIRUBIN,TOTAL 0.2 MG/DL (0.2-1.0); BLOOD UREA NITROGEN 10 MG/DL (7-18); CALCIUM LEVEL 8.7 MG/DL (8.5-10.1); CARBON DIOXIDE LEVEL 28 MEQ/L (21-32); CHLORIDE LEVEL 109 MEQ/L (98-107); CREATININE FOR GFR 0.55 MG/DL (0.55-1.30); GLOMERULAR FILTRATION RATE > 60.0 (>51); GLUCOSE, FASTING 110 MG/DL (70-100); POTASSIUM SERUM 4.3 MEQ/L (3.5-5.1); SODIUM LEVEL 142 MEQ/L (136-145); TOTAL PROTEIN 6.1 GM/DL (6.4-8.2)
[2018-01-23 15:20] LABS: ESTIMATED AVERAGE GLUCOSE 128 MG/DL (60-110); HEMOGLOBIN A1c 6.1 %
== END ==
LOC: M SFHCPLAZ 13:34
DX: R60.0 Localized edema (principal); R35.0 Frequency of micturition
CPT/HCPCS: 84443

== ENCOUNTER → 2018-02-13 | Outpatient (REF) | payer OTHER ==
[2018-02-13 16:56] LABS: NT-PRO BNP 44 PG/ML (<125)
== END ==
LOC: M LABDRAWP 16:22
DX: R60.0 Localized edema (principal)

== ENCOUNTER → 2018-02-18 | Outpatient (CLI) | payer OTHER | LOC: M PAIN 13:45 | DX: G89.29 Other chronic pain (principal); M54.81 Occipital neuralgia; K21.9 Gastro-esophageal reflux disease without esophagitis; J45.909 Unspecified asthma, uncomplicated; H40.9 Unspecified glaucoma; G43.909 Migraine, unspecified, not intractable, without status migrainosus; A60.09 Herpesviral infection of other urogenital tract; M43.12 Spondylolisthesis, cervical region; F32.9 Major depressive disorder, single episode, unspecified; M79.7 Fibromyalgia; K25.9 Gastric ulcer, unspecified as acute or chronic, without hemorrhage or perforation; N95.2 Postmenopausal atrophic vaginitis; M96.1 Postlaminectomy syndrome, not elsewhere classified; Z98.1 Arthrodesis status; Z90.710 Acquired absence of both cervix and uterus; Z87.891 Personal history of nicotine dependence; Z79.891 Long term (current) use of opiate analgesic; Z79.899 Other long term (current) drug therapy; Z91.030 Bee allergy status; Z91.040 Latex allergy status; Z88.1 Allergy status to other antibiotic agents; Z88.8 Allergy status to other drugs, medicaments and biological substances; Z91.048 Other nonmedicinal substance allergy status | CPT/HCPCS: J3301 ==

== ENCOUNTER → 2018-03-07 | Outpatient (CLI) | payer OTHER | LOC: M WHC 13:26 | DX: Z12.31 Encounter for screening mammogram for malignant neoplasm of breast (principal) | CPT/HCPCS: 77067 ==

== ENCOUNTER → 2018-03-27 | Outpatient (CLI) | payer OTHER | LOC: M RAD 09:04 | DX: R60.0 Localized edema (principal) | CPT/HCPCS: 93970 ==

== ENCOUNTER → 2018-04-04 | Outpatient (CLI) | payer OTHER | LOC: M PAIN 14:00 | DX: M79.1 Myalgia (principal); M54.81 Occipital neuralgia; M96.1 Postlaminectomy syndrome, not elsewhere classified; G43.709 Chronic migraine without aura, not intractable, without status migrainosus; K21.9 Gastro-esophageal reflux disease without esophagitis; J45.909 Unspecified asthma, uncomplicated; M19.90 Unspecified osteoarthritis, unspecified site; F32.9 Major depressive disorder, single episode, unspecified; Z79.899 Other long term (current) drug therapy; Z88.5 Allergy status to narcotic agent; Z88.8 Allergy status to other drugs, medicaments and biological substances; Z91.013 Allergy to seafood; Z91.040 Latex allergy status; Z91.09 Other allergy status, other than to drugs and biological substances; Z87.891 Personal history of nicotine dependence | CPT/HCPCS: G0463 ==

== ENCOUNTER → 2018-04-04 | Outpatient (CLI) | payer OTHER | LOC: M EKG 11:26 | DX: G47.9 Sleep disorder, unspecified (principal) | CPT/HCPCS: 93005 ==

== ENCOUNTER 2018-04-12 07:26 | Day surgery (SDC) | payer OTHER ==
[~2018-04-12 07:26] MED LIST changes: -BUPIVACAINE HCL 0.25% 10 ML VIAL As Ordered; -BUPIVACAINE HCL 0.25% 30 ML VIAL As Ordered; +LIDOCAINE 1% MDV 20ML VIAL SQ; -TRIAMCINOLONE ACETONIDE SUSP 40 MG/ML VIAL (J3301) As Ordered
[2018-04-12 08:02] LABS: HEMATOCRIT 40.1 % (36.0-47.0); HEMOGLOBIN 13.2 g/dl (12.0-15.5); MEAN CORPUSCULAR HEMOGLOBIN 30.5 pg (27.0-33.0); MEAN CORPUSCULAR HGB CONC 32.9 g/dl (32.0-36.5); MEAN CORPUSCULAR VOLUME 92.6 fl (80.0-96.0); PLATELET COUNT, AUTOMATED 262 10^3/uL (150-450); RED BLOOD COUNT 4.33 10^6/uL (4.00-5.40); RED CELL DISTRIBUTION WIDTH 12.2 % (11.5-14.5); WHITE BLOOD COUNT 4.6 10^3/uL (4.0-10.0)
[2018-04-12] MEDS ORDERED: fentaNYL 100 MCG/2 ML INJECTION (J3010) As Ordered ×2 (08:05)
[2018-04-12] MEDS ORDERED: dexameTHASONE 4 MG/ML 1ML VIAL (J1100) As Ordered ×2 (08:05)
[2018-04-12] MEDS ORDERED: ROCURONIUM BROMIDE 50 MG/5 ML VIAL As Ordered ×2 (08:05)
[2018-04-12] MEDS ORDERED: PROPOFOL 200 MG/20 ML VIAL As Ordered ×2 (08:05)
[2018-04-12] MEDS ORDERED: KETOROLAC 60 MG/2 ML VIAL (J1885) As Ordered ×2 (08:05)
[2018-04-12] MEDS ORDERED: ONDANSETRON 4MG/2ML VIAL (J2405) As Ordered ×2 (08:05)
[2018-04-12] MEDS ORDERED: MIDAZOLAM INJ 2 MG/2 ML VIAL (J2250) As Ordered ×2 (08:05)
[2018-04-12] MEDS ORDERED: LIDOCAINE 2% INJ 100 MG/5 ML SDV (FOR ANES.) As Ordered ×2 (08:05)
[2018-04-12] MEDS: LR 1,000 ML IV ×2 (08:17)
[2018-04-12] MEDS ORDERED: BUPIVACAINE HCL 0.25% 30 ML VIAL As Ordered ×2 (08:38)
[2018-04-12] MEDS: ceFAZolin 2 GM/D5W 50 ML IV BAG (J0690 PER 500MG) As Ordered ×2 (09:44)
[2018-04-12] MEDS ORDERED: LR 1,000 ML IV ×2 (10:45)
[2018-04-12] MEDS ORDERED: HYDROMORPHONE HCL 0.5 MG/ 0.5 ML SYRINGE (J1170 PER 1) IV ×2 (10:45)
[2018-04-12] MEDS ORDERED: fentaNYL 100 MCG/2 ML INJECTION (J3010) IV ×2 (10:45)
[2018-04-12] MEDS ORDERED: ONDANSETRON 4MG/2ML VIAL (J2405) IV ×2 (10:45)
[2018-04-12] MEDS ORDERED: PERCOCET 5MG/325MG TAB As Ordered ×2 (11:49)
[2018-04-12] MEDS: PERCOCET 5MG/325MG TAB PO ×2 (11:56)
== END 2018-04-12 12:55 | disposition home or self-care (01) ==
LOC: M SDC 07:26
DX: N39.3 Stress incontinence (female) (male) (principal); J45.909 Unspecified asthma, uncomplicated; K21.9 Gastro-esophageal reflux disease without esophagitis; G47.30 Sleep apnea, unspecified; Z79.899 Other long term (current) drug therapy; Z88.1 Allergy status to other antibiotic agents; Z91.040 Latex allergy status; Z91.013 Allergy to seafood; Z88.8 Allergy status to other drugs, medicaments and biological substances
CPT/HCPCS: 57288

== ENCOUNTER → 2018-06-13 | Outpatient (CLI) | payer OTHER | LOC: M PAIN 10:30 | DX: M79.10 Myalgia, unspecified site (principal); M54.81 Occipital neuralgia; M96.1 Postlaminectomy syndrome, not elsewhere classified; G43.709 Chronic migraine without aura, not intractable, without status migrainosus; K21.9 Gastro-esophageal reflux disease without esophagitis; J45.909 Unspecified asthma, uncomplicated; M19.90 Unspecified osteoarthritis, unspecified site; H40.9 Unspecified glaucoma; M47.892 Other spondylosis, cervical region; F32.9 Major depressive disorder, single episode, unspecified; N95.2 Postmenopausal atrophic vaginitis; Z87.891 Personal history of nicotine dependence; Z79.891 Long term (current) use of opiate analgesic; Z79.899 Other long term (current) drug therapy; Z91.013 Allergy to seafood; Z88.1 Allergy status to other antibiotic agents; Z88.8 Allergy status to other drugs, medicaments and biological substances; Z91.048 Other nonmedicinal substance allergy status | CPT/HCPCS: G0463 ==

== ENCOUNTER → 2018-07-03 | Outpatient (CLI) | payer OTHER ==
[~2018-07-03] MED LIST changes: +BUPIVACAINE HCL 0.25% 30 ML VIAL As Ordered; -LIDOCAINE 1% MDV 20ML VIAL SQ; +TRIAMCINOLONE ACETONIDE SUSP 40 MG/ML VIAL (J3301) As Ordered
== END ==
LOC: M PAIN 12:45
DX: M79.18 Myalgia, other site (principal); M54.2 Cervicalgia; K21.9 Gastro-esophageal reflux disease without esophagitis; J45.909 Unspecified asthma, uncomplicated; G43.909 Migraine, unspecified, not intractable, without status migrainosus; M19.90 Unspecified osteoarthritis, unspecified site; F32.9 Major depressive disorder, single episode, unspecified; Z79.899 Other long term (current) drug therapy; Z88.5 Allergy status to narcotic agent; Z88.8 Allergy status to other drugs, medicaments and biological substances; Z91.09 Other allergy status, other than to drugs and biological substances; Z91.013 Allergy to seafood; Z91.040 Latex allergy status; Z87.891 Personal history of nicotine dependence
CPT/HCPCS: J3301

== ENCOUNTER → 2018-07-31 | Outpatient (CLI) | payer OTHER | LOC: M PAIN 14:15 | DX: M47.812 Spondylosis without myelopathy or radiculopathy, cervical region (principal); M96.1 Postlaminectomy syndrome, not elsewhere classified; K21.9 Gastro-esophageal reflux disease without esophagitis; G43.909 Migraine, unspecified, not intractable, without status migrainosus; M19.90 Unspecified osteoarthritis, unspecified site; F32.9 Major depressive disorder, single episode, unspecified; Z79.899 Other long term (current) drug therapy; Z88.1 Allergy status to other antibiotic agents; Z88.8 Allergy status to other drugs, medicaments and biological substances; Z91.013 Allergy to seafood; Z91.040 Latex allergy status; Z91.09 Other allergy status, other than to drugs and biological substances; Z86.018 Personal history of other benign neoplasm; Z92.29 Personal history of other drug therapy; Z87.891 Personal history of nicotine dependence | CPT/HCPCS: G0463 ==

== ENCOUNTER → 2018-08-09 | Outpatient (CLI) | payer OTHER | LOC: M PAIN 13:30 | DX: M47.812 Spondylosis without myelopathy or radiculopathy, cervical region (principal); M79.18 Myalgia, other site; M96.1 Postlaminectomy syndrome, not elsewhere classified; K21.9 Gastro-esophageal reflux disease without esophagitis; G43.909 Migraine, unspecified, not intractable, without status migrainosus; M19.90 Unspecified osteoarthritis, unspecified site; F32.9 Major depressive disorder, single episode, unspecified; A60.00 Herpesviral infection of urogenital system, unspecified; Z79.899 Other long term (current) drug therapy; Z88.5 Allergy status to narcotic agent; Z88.8 Allergy status to other drugs, medicaments and biological substances; Z91.09 Other allergy status, other than to drugs and biological substances; Z91.013 Allergy to seafood; Z91.040 Latex allergy status; Z87.891 Personal history of nicotine dependence; Z92.29 Personal history of other drug therapy | CPT/HCPCS: G0463 ==

== ENCOUNTER 2018-09-15 10:32 | Emergency (ER) | payer OTHER ==
[~2018-09-15] VITALS: Ht 154.9 cm; Wt 72.7 kg
[~2018-09-15 10:32] MED LIST changes: +/BACL20TA; +/LANS30GR; +/ONDA4TA PO; +ACYC400T PO; +ADV250INH INH; +ALBU17IN INH; +ALBU83IN INH; +AMIT10TA2 PO; +AMOX500C; +BACITAB PO; +BACL10TA2 OR; +BACL10TA2 PO; +BENA25CA PO; +BLACK COHASH PO; +BREO1INH INH; -BUPIVACAINE HCL 0.25% 30 ML VIAL As Ordered; +CALCIUM PO; +CARA1TAB2 PO; +CHOL4POW4 PO; +CROM5SOL OU; +CYCL10TA PO; +Cranberry PO; +D 50CAP PO; +DIAZ5TAB; +DICY20TA11 PO; +DULE100A INH; +ESTR1CRE PV; +ESTR1TAB PO; +EXCETAB80 PO; +FIORCAP3 OR; +FIORCAP7 PO; +FLAX1300 PO; +FLEX10TA2 PO; +GINKGO BILOBA OR; +HYDROCODONE; +IMOD2CAP PO; +KLS75TAB OR; +L-LYSINE PO; +LUTE10TA PO; +LUTE6TAB PO; +LUTEIN; +LYRI150C; +LYRI200C; +LYRI75CA PO; +MAXA10TA20 PO; +MAXA5TAB10 PO; +MELOPOW; +META48.54 PO; +META800T82 PO; +MONT10TA2 PO; +MULT1TAB18 PO; +MULTIVIT PO; +NEXI20CA; +OMEP40CA2 PO; +ORPH-8 PO; +OXYC10TA56; +OXYC1TAB23 PO; +Omega 3 PO; +PANT40TA2 PO; +PANT40TA3 PO; +PEPC1TAB5 PO; +PERC5TAB8 OR; +PHEN 25 PO; +PRED20TA PO; +PREG100CA OR; +PROM12.56 PO; +PROM25TA PO; +RELPAX; +RELPAX OR; +SAVELLA OR; +SOMA350T OR; +SUMA100T2 PO; +TIZA2TA PO; +TIZA2TAB3 PO; +TIZA4TAB OR; +TOPA25TA PO; +TOPI25TA2 OR; +TRAM50TA2; +TRAM50TA2 OR; +TRAM50TA2 PO; +TRAZ-160 PO; +TRIA0.5O TOP; -TRIAMCINOLONE ACETONIDE SUSP 40 MG/ML VIAL (J3301) As Ordered; +TRIXAICIN TOP; +ULTR50TA PO; +ULTRTA OR; +VALI5TAB PO; +VENTAER INH; +VICO5TAB OR; +VIIB10TA PO; +VIT D 2000 PO; +VITA1CAP2 PO; +VITA2000 PO; +VITA500019 PO; +VITAMIN B12; +VITAMIN D PO; +VITAMIN D50000 UNT; +VITMTA PO; +VOLT1GEL TOP; +ZONI25CA2 PO; +ZYRT10CA PO; +[UNRECOGNIZED DRUG - CODE]; +estrace cream EXT; +imitrex PO; +relpax PO
[2018-09-15] MEDS ORDERED: ESTR1TAB PO (10:47)
[2018-09-15] MEDS ORDERED: PANT40TA3 PO (10:47)
[2018-09-15] MEDS ORDERED: CHOL4POW4 PO (10:47)
[2018-09-15] MEDS ORDERED: TRAM50TA2 PO (10:47)
[2018-09-15] MEDS ORDERED: DULO1CAP PO (10:47)
[2018-09-15] MEDS ORDERED: LYRI150C PO (10:47)
[2018-09-15] MEDS ORDERED: NS 1,000 ML IV ONE (11:00)
[2018-09-15] MEDS ORDERED: ONDANSETRON 4MG/2ML VIAL (J2405) IV ONE (11:00)
[2018-09-15 11:17] LABS: BASO % 0.5 % (0.0-1.0); EOS # 0.1 10^3/uL (0.0-0.50); HEMOGLOBIN 14.1 g/dl (12.0-15.5); LYMPH # 1.9 10^3/uL (1.5-4.5); LYMPH % 32.3 % (24.0-44.0); MEAN CORPUSCULAR HEMOGLOBIN 30.1 pg (27.0-33.0); MEAN CORPUSCULAR HGB CONC 32.8 g/dl (32.0-36.5); MEAN CORPUSCULAR VOLUME 91.7 fl (80.0-96.0); MONO # 0.3 10^3/uL (0.0-0.8); MONO % 5.4 % (0.0-5.0); NEUTROPHILS # 3.5 10^3/uL (1.8-7.7); NEUTROPHILS % 60.6 % (36.0-66.0); PLATELET COUNT, AUTOMATED 269 10^3/uL (150-450); RED BLOOD COUNT 4.69 10^6/uL (4.00-5.40); WHITE BLOOD COUNT 5.7 10^3/uL (4.0-10.0)
[2018-09-15 11:43] LABS: ALBUMIN 3.4 GM/DL (3.2-5.2); ALT/SGPT 22 U/L (12-78); AMYLASE 82 U/L (25-115); BILIRUBIN,DIRECT < 0.1 MG/DL (0.0-0.2); BILIRUBIN,TOTAL 0.4 MG/DL (0.2-1.0); BLOOD UREA NITROGEN 14 MG/DL (7-18); CALCIUM LEVEL 8.5 MG/DL (8.5-10.1); CARBON DIOXIDE LEVEL 27 MEQ/L (21-32); CHLORIDE LEVEL 104 MEQ/L (98-107); CREATININE FOR GFR 0.63 MG/DL (0.55-1.30); GLOMERULAR FILTRATION RATE > 60.0 (>51); GLUCOSE, FASTING 102 MG/DL (70-100); LIPASE 106 U/L (73-393); POTASSIUM SERUM 3.7 MEQ/L (3.5-5.1); SODIUM LEVEL 139 MEQ/L (136-145); TOTAL PROTEIN 7.1 GM/DL (6.4-8.2)
[2018-09-15 11:44] LABS: HCG, SERUM QUALITATIVE NEGATIVE (NEGATIVE)
[2018-09-15] MEDS ORDERED: ISOVUE-370 76% 100ML VIAL (Q9967) As Ordered ONE (11:57)
[2018-09-15] MEDS ORDERED: KETOROLAC 30 MG/ML VIAL (J1885) IV ONE (13:00)
[2018-09-15] MEDS ORDERED: METOCLOPRAMIDE INJ 10MG/2ML VIAL (J2765) IV ONE (13:00)
--- NOTE | 2018-09-15 13:36 | REP ---
CT ABDOMEN AND PELVIS WITH CONTRAST: HISTORY: Upper abdominal pain. CONTRAST: Isovue-370, 100 mL. COMPARISON: 08/14/2017 The patient is status post cholecystectomy. There is fatty infiltration of the liver. The pancreas, spleen, adrenal glands, and kidneys are normal in appearance. There is no mass, adenopathy, or free fluid. The visualized lungs are clear. The patient is status post hysterectomy. The urinary bladder is normal in appearance. Degenerative change is present in the spine. IMPRESSION: 1. The patient is status post cholecystectomy. 2. The patient is status post hysterectomy. Electronically Signed by Karl Courtney MD 09/15/2018 01:44 P
[2018-09-15] MEDS ORDERED: ZOFR4TAB14 PO (14:04)
[2018-09-15 14:10] VITALS: BP 105/64
== END 2018-09-15 14:13 | disposition home or self-care (01) ==
LOC: M ED 10:32
DX: G43.909 Migraine, unspecified, not intractable, without status migrainosus (principal); K21.9 Gastro-esophageal reflux disease without esophagitis; M79.7 Fibromyalgia; H40.9 Unspecified glaucoma; K44.9 Diaphragmatic hernia without obstruction or gangrene; G47.33 Obstructive sleep apnea (adult) (pediatric); A60.09 Herpesviral infection of other urogenital tract; G89.29 Other chronic pain; M54.2 Cervicalgia; Z87.19 Personal history of other diseases of the digestive system; Z88.1 Allergy status to other antibiotic agents; Z88.5 Allergy status to narcotic agent; Z88.8 Allergy status to other drugs, medicaments and biological substances; Z91.013 Allergy to seafood; Z91.040 Latex allergy status; J30.89 Other allergic rhinitis
CPT/HCPCS: 36415; 74177; 80048; 80076; 81001; 82150; 83690; 84703; 85025; 96361; 96374; 96375; 99284; J1885; J2405; J2765; Q9967

== ENCOUNTER → 2018-09-20 | Outpatient (REF) | payer OTHER ==
[~2018-09-20] MED LIST changes: +DULO1CAP PO; +LYRI150C PO; +ZOFR4TAB14 PO
[2018-09-20 16:28] LABS: AMYLASE 81 U/L (25-115); LIPASE 113 U/L (73-393)
== END ==
LOC: M SFHCPLAZ 13:56
PROVIDERS: ATTEND Family Medicine
DX: K27.9 Peptic ulcer, site unspecified, unspecified as acute or chronic, without hemorrhage or perforation (principal); R10.13 Epigastric pain

== ENCOUNTER → 2018-09-25 | Outpatient (CLI) | payer OTHER ==
[~2018-09-25] MED LIST changes: +BUPIVACAINE HCL 0.25% 30 ML VIAL As Ordered ONE; +ISOVUE-M 300 61% 15ML VIAL (Q9967) As Ordered ONE; +LIDOCAINE 1% SDV INJ 30 ML VIAL As Ordered ONE; +ONDANSETRON 4MG/2ML VIAL (J2405) As Ordered ONE; +TRIAMCINOLONE ACETONIDE SUSP 40 MG/ML VIAL (J3301) As Ordered ONE; +diazePAM 5 MG TAB As Ordered ONE; +oxyCODONE 5MG TAB As Ordered ONE
--- NOTE | 2018-09-25 18:48 | REP ---
Cervical spine series: Single view. History: Cervical facet injection for pain. 1 minute 7 seconds of fluoroscopy time is reported. Findings: A single last image hold fluoroscopically obtained spot radiograph of the cervical spine documents needle positions and contrast injections associated with cervical facet injection procedure. Electronically Signed by Santiago Sebastian MD 09/25/2018 07:47 P
--- NOTE | 2018-10-14 00:39 | ECWPNPC ---
PATIENT NAME: DELIA BLOUNT : 1960 GENDER: FEMALE VISIT DATE: 09/25/2018 DISCHARGE DATE: 09/25/18 1554 VISIT LOCKED DATE TIME: PHYSICIAN: GILBERTO MEDINA MD RESOURCE: GILEBRTO MEDINA MD REASON FOR APPOINTMENT 1. CFBT HISTORY OF PRESENT ILLNESS HISTORY OF PRESENT ILLNESS: PAIN THE PATIENT DESCRIBES THE PAIN... FALL RISK SCREENING: SCREENING :NO FALLS IN THE PAST YEAR CURRENT MEDICATIONS TAKING PROTONIX 40 MG TAB 1 TAB ORALLY TWICE DAILY, NOTES: 09/24/18 TAKING CYMBALTA 20 MG CAPSULE DELAYED RELEASE PARTICLES 1 CAPSULE ORALLY WITH FOOD ONCE A DAY FOR PAIN, NOTES: 09/24/18 TAKING LYRICA 150 MG CAPSULE 1 CAPSULE ORALLY TWICE DAILY, NOTES: 09/24/18 TAKING TRAMADOL HCL 50 MG TABLET 1 TAB ORALLY EVERY 6 HOURS NEEDED PAIN MDD=4, NOTES: 09/24/18 TAKING CYCLOBENZAPRINE HCL 10 MG TABLET 1 TABLET ORALLY FOR SPSMS AND PAIN THREE TIMES A DAY NEEDED MDD3, NOTES: 09/24/18 TAKING ALBUTEROL SULFATE HFA 108 (90 BASE) MCG/ACT AEROSOL SOLUTION 2 PUFFS NEEDED INHALATION EVERY 4 HRS, NOTES: 09/24/18 TAKING OMEGA 3 1000 MG CAPSULE 1 CAPSULE ORALLY ONCE A DAY, NOTES: 09/24/18 TAKING LUTEIN VISION BLEND CAPSULE ORALLY , NOTES: 09/24/18 TAKING VITAMIN D3 5000 UNITS CAPSULE 1 CAPSULE ORALLY EVERY 3 DAYS, NOTES: 09/24/18 TAKING MEDICAL COMPRESSION STOCKINGS - MISCELLANEOUS DIRECTED TOPICALLY DAILY; ICD10: R60.0 TAKING VITAMIN B12 1000 MCG TABLET EXTENDED RELEASE 1 TABLET ORALLY ONCE A DAY, NOTES: 09/24/18 TAKING ESTRACE 0.1 MG/GM CREAM 0.5 GM VAGINAL TWICE A WEEK, NOTES: LAST WEEK TAKING ESTRACE 1 MG TABLET 1 TABLET ORALLY ONCE DAILY, NOTES: 09/24/18 TAKING CHOLESTYRAMINE 4 GM/DOSE POWDER 1 SCOOP ORALLY TWICE A DAY, NOTES: NONE LATELY TAKING ZOFRAN 8 MG TABLET 1 TABLET ORALLY TWICE A DAY, NOTES: NONE LATELY TAKING FIORICET 50-300-40 MG CAPSULE 1 CAPSULE NEEDED ORALLY EVERY 4 HRS, NOTES: NONE YET TAKING BENADRYL 25 MG TABLET 1 TABLET ORALLY DAILY BEFORE BEDTIME, NOTES: NONE LATELY TAKING [id number]-[id number]-[id number] 50-325-40 MG TABLET 1 TABLET NEEDED ORALLY EVERY 4 HRS, NOTES: NONE YET TAKING ZANTAC 150 MG TABLET 1 TABLET ORALLY BID, NOTES: NOT YET TAKING COLACE 100 MG CAPSULE 1 CAPSULE NEEDED ORALLY ONCE A DAY, NOTES: NOT YET NOT-TAKING LOPERAMIDE HCL 2 MG CAPSULE 2 CAPSULE NEEDED ORALLY FOUR TIMES A DAY NEEDED (MDD 8 TABS) NOT-TAKING CROMOLYN SODIUM 4 % SOLUTION 1 DROP INTO AFFECTED EYE OPHTHALMIC FOUR TIMES A DAY NOT-TAKING SUMATRIPTAN SUCCINATE 100 MG TABLET 1 TABLET NEEDED ONE TIME ORALLY TAKE BID PRN MAIGRAINE. MDD=2. MAX 10 MIGRAINE DAY SPER MO, NOTES: STOPPED TAKING MED PER PAIN CENTER TOLD HER MEDICATION LIST REVIEWED AND RECONCILED WITH THE PATIENT PAST MEDICAL HISTORY ESOPHAGEAL REFLUX ASTHMA MIGRAINE HEADACHE ARTHRITIS ABNORMAL PAP SMEAR/SEVERAL JOEL 3 W/CRYO (DR. 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 FIBROMYALGIA STOMACH ULCER HORMONE REPLACEMENT THERAPY (POSTMENOPAUSAL) POSTMENOPAUSAL ATROPHIC VAGINITIS CERVICAL POST-LAMINECTOMY SYNDROME CERVICAL POST-LAMINECTOMY SYNDROME ALLERGIES SEA CRAB: ANAPHYLAXIS: ALLERGY LATEX: RASH: ALLERGY VANCOMYCIN HCL: HIVES/BREATHING PROBLEMS: ALLERGY DOXYCYCLINE CALCIUM: HIVES/BREATHING PROBLEMS: ALLERGY TOPAMAX: HEADACHE HORSE HAIR SURGICAL HISTORY HYSTERECTOMY, TOTAL WITH BSO-DYSPLASIA- C-3 1993 CHOLECYSTECTOMY 1993 BREAST BIOPSY C5-C6 FUSION ENDOSCOPY /COLONOSCOPY 2010, 2013 ENDOSCOPY-BENIGN FINDINGS, COLONOSCOPY - NONBLEEDING INTERNAL HEMORRHOIDS, DIVERTICULA IN RECTO-SIGMOID. PATH REPORT: FRAGMENTS OF COLONIC MUCOSA WITH INCREASED LYMPHOPLASMA INFILTRATES OF LAMINA PROPRIA 01/2014 ANTERIOR CERVICAL DISCECTOMY AND FUSION (ACDF) BY DR. NUSRAT THOMPSON, [facility] 06/04/15 LEFT CTS RELEASE 09/13/17 FAMILY HISTORY FATHER: ALIVE MOTHER: , ANEURYSM, OSTEOPOROSIS SIBLINGS: ALIVE, HEART DISEASE SON(S): ALIVE 1 BROTHER(S) , 2 SISTER(S) - HEALTHY. 2 SON(S) - HEALTHY. SOCIAL HISTORY GENERAL: TOBACCO USE ARE YOU A:FORMER SMOKER HOW LONG HAS IT BEEN SINCE YOU LAST SMOKED?5-10 YEARS ALCOHOL SCREENING DID YOU HAVE A DRINK CONTAINING ALCOHOL IN THE PAST YEAR?NO POINTS0 INTERPRETATIONNEGATIVE RECREATIONAL DRUG USE DRUG USE?NO CAFFEINE CAFFEINE USE?NO SEXUAL HX HAD SEX IN THE LAST 12 MONTHS (VAGINAL, ORAL, OR ANAL)?NO HIV / HEP-C SCREENING HIV TEST OFFERED TO PATIENT:YES DATE OFFERED:10/25/2017 HEP-C TEST OFFERED TO PATIENT:YES DATE OFFERED:10/25/2017 BROCHURE PROVIDED TO PATIENTNO SABIANISM [id number] LATTER DAY LANGUAGE LANGUAGES SPOKEN:CZECH OTHER-CROATIAN EDUCATION LEVEL OF EDUCATION:HIGH SCHOOL LEARNING BARRIERS / SPECIAL NEEDS CHANGE FROM LAST VISIT?NO BARRIERS TO LEARNING?NO HEARING IMPAIRED?NO VISION IMPAIRED?YES COGNITIVELY IMPAIRED?NO :CORRECTIVE LENSES READINESS TO LEARN?YES LEARNING PREFERENCES?NO LEARNING CAPABILITIES PRESENT?YES EMOTIONAL BARRIERS?NO SPECIAL DEVICES?NO LOCKSTITCH SLEEVE SETTER NEEDED?NO OCCUPATION: UNEMPLOYED. DIET: REGULAR. EXERCISE: NO REGULAR EXERCISE. MARITAL STATUS: .. OTHERS AT HOME: BOYFRIEND. PAIN CLINIC PFS, CLERGY, PUBLIC HEALTH REFERRALS PFS REFERRAL NEEDED?NO CLERGY REFERRAL NEEDED?NO PUBLIC HEALTH REFERRAL NEEDED?NO WAS THE PROVIDER NOTIFIED OF ANY PERTINENT INFO?NO HAS THE PATIENT BEEN EDUCATED REGARDING HIS/HER PLAN OF CARE?YES HAS THE PATIENT BEEN EDUCATED REGARDING PAIN, THE RISK FOR PAIN, THE IMPORTANCE OF EFFECTIVE PAIN MANAGEMENT, AND THE PAIN ASSESSMENT PROCESS?YES ADVANCE DIRECTIVE ADVANCE DIRECTIVE DISCUSSED WITH PATIENT:YES DECLINED USED TO SMOKE FOR OVER 20 YRS ON/OFF WITH 3 CIGS/DAY. HOSPITALIZATION/MAJOR DIAGNOSTIC PROCEDURE ACDF SURGERY, [facility] 925/15-06/07/15 C-DIFF 08/14/17-08/18/17 REVIEW OF SYSTEMS REVIEWED BY: PROVIDER: . CONSTITUTIONAL: ANY CHANGE IN YOUR MEDICAL CONDITION? NO . CHILLS NO . FEVER NO . INFECTION: DO YOU HAVE NEW INFECTIONS? NO . DO YOU HAVE HISTORY OF MRSA? NO . MUSCULOSKELETAL: ANY NEW PATTERNS OF PAIN OR NUMBNESS? NO . GASTROENTEROLOGY: ANY NEW CHANGE IN BOWEL CONTROL? NO . GENITOURINARY: ANY NEW CHANGE IN BLADDER CONTROL? NO . IS THERE A CHANCE YOU COULD BE ? NO . HEMATOLOGY/LYMPH: DO YOU TAKE ANY BLOOD THINNERS? (FOR EXAMPLE- COUMADIN, PLAVIX, AGGRENOX, PLATEL, PRADAXA, OR XARELTO) NO . WHEN WAS YOUR LAST DOSE? DATE: TIME: . NEUROLOGY: HAVE YOU FALLEN IN THE PAST 12 MONTHS? NO . ANY NEW EXTREMITY NUMBNESS OR WEAKNESS? NO . CARDIOLOGY: DO YOU HAVE A PACEMAKER OR DEFIBRILLATOR? NO . RESPIRATORY: HAVE YOU BEEN SICK IN THE PAST WEEK? NO . FEVER NO . FLU LIKE SYMPTOMS? NO . COUGH NO . INTEGUMENTARY: DO YOU HAVE ANY RASHES OR OPEN SORES? NO . ALLERGIC/IMMUNO: ARE YOU ALLERGIC TO IV DYE? NO . ANY NEW ALLERGIES? NO . PSYCHIATRIC: DO YOU HAVE THOUGHTS OF HURTING YOURSELF OR SOMEONE ELSE? NO . ARE YOU ABUSED, NEGLECTED, OR IN AN UNSAFE ENVIRONMENT? NO . ENDOCRINOLOGY: ARE YOU DIABETIC? NO . OTHER: DO YOU NEED ANY PRESCRIPTIONS? NO . IF YES, PLEASE LIST: ____ . ANY NEW PROBLEMS WITH YOUR MEDICATIONS? NO . WHEN DID YOU LAST EAT? 09/24/18 1900 . WHEN DID YOU LAST DRINK? 09/25/18 0800 . WHAT DID YOU LAST DRINK? WATER . NAME OF PERSON DRIVING YOU HOME? MAXINE . DO YOU HAVE ANY OTHER QUESTIONS OR CONCERNS NO . VITAL SIGNS WT 168.6 LBS, HT 60 IN, BMI 32.92 INDEX, BP 139/71 MM HG, HR 70 /MIN, RR 18 /MIN, TEMP 97.0 F, OXYGEN SAT % 97%, NA INITIALS SC 11:26, REVIEWED BY: EM. ASSESSMENTS SPONDYLOSIS OF CERVICAL REGION WITHOUT MYELOPATHY OR RADICULOPATHY - M47.812 (PRIMARY) TREATMENT OTHERS START ZOFRAN TABLET, 4 MG, 1 TABLETS, ORALLY FOR NAUSEAS, EVERY 6 HOURS NEEDED MDD3, 3 DOSES, 8, REFILLS 0 PROCEDURES PN CERVICAL FACET BLOCK LOW BILATERAL CERVICAL PRE PROCEDURE DIAGNOSIS CERVICAL SPONDYLOSIS POST PROCEDURE DIAGNOSIS CERVICAL SPONDYLOSIS PROCEDURE RIGHT C2-C3 AND RIGHT C3-C4 CERVICAL FACET BLOCK SURGEON DR. GILBERTO MEDINA PAINTING INSTRUCTOR NONE ANESTHESIA LOCAL PRE PROCEDURE NOTE THE PATIENT HAS HISTORY OF CHRONIC CERVICAL PAIN. I EVALUATE THE PATIENT AND REVIEWED THE CHART. I WENT OVER THE RISKS, ALTERNATIVES, AND BENEFITS ASSOCIATED WITH THIS PROCEDURE. THE PATIENT WOULD LIKE TO PROCEED AND GIVE CONSENT TO PERFORMED THE PROCEDURE. THE PATIENT DENIES UNEXPLAINABLE WEIGHT LOSS, FEVER, CHILLS, OR NEW CHANGES IN URINARY OR BOWEL CONTROL. DESCRIPTION OF PROCEDURE THE PATIENT WAS BROUGHT TO THE PROCEDURE ROOM AND PLACED IN THE PRONE POSITION. THE CERVICOTHORACIC AREA WAS CLEANED WITH CHLORAPREP SOLUTION AND DRAPED ASEPTICALLY. THE PROCEDURE WAS DONE UNDER STERILE CONDITIONS. I CHECKED LATERALITY AND THE LEVEL WHERE THE PROCEDURE WAS GOING TO BE PERFORMED WITH THE PATIENT AND THE SUPPORTING STAFF AT THE MOMENT OF THE TIME OUT IN THE PROCEDURE ROOM. UNDER FLUOROSCOPIC GUIDANCE, TARGET POINT WAS SELECTED AT THE RIGHT C2-C3 AND RIGHT C3-C4 CERVICAL FACET JOINT. TARGET POINTS WERE SELECTED AFTER LATERAL ROTATION AND TILT OF THE MAGNIFIER OF THE C-ARM. LIDOCAINE 0.5% WAS USED TO NUMB THE SKIN AND THE SUBCUTANEOUS TISSUE BELOW IT. SPINAL NEEDLES, 22-GAUGE, WERE ADVANCED UNDER FLUOROSCOPIC GUIDANCE AND FOLLOWING PATIENT FEEDBACK UNTIL THE TARGETS WERE TOUCHED. THE POSITION OF THE NEEDLES WAS VERIFIED WITH AP AND LATERAL VIEWS. AFTER PROPER POSITION OF THE NEEDLES WAS ACHIEVED, ISOVUE M DYE 30, 0.1 ML WAS INJECTED SHOWING SPREAD OF THE DYE. THEN A SOLUTION OF 0.9 ML OF BUPIVACAINE 0.125% AND KENALOG 10 MG WAS INJECTED AT EACH SITE. THERE WAS NO EVIDENCE OF BLOOD, PARESTHESIA OR CEREBROSPINAL FLUID DURING THE PROCEDURE. THE PATIENT WAS SENT TO THE RECOVERY ROOM. THE PATIENT WAS MOVING THE EXTREMITIES AND DOING WELL. THERE WAS NO COMPLICATION DURING THE PROCEDURE. FLUOROSCOPY TIME WAS 67 SECONDS POST PROCEDURE NOTE THE PATIENT WILL BE SEEN IN A FOLLOW UP IN THE NEXT FEW WEEKS. INSTRUCTIONS WERE GIVEN, QUESTIONS WERE ANSWERED, AND THE PATIENT EXPRESSED UNDERSTANDING AND AGREES WITH THE PLAN. I, MARGOT YEN, DOCUMENTED THE ABOVE INFORMATION ACTING A SCRIBE FOR DR. MEDINA. I HAVE REVIEWED THE ABOVE DOCUMENT, WRITTEN BY MARGOT PAUL AND I VERIFY THAT IT IS ACCURATE. PN WORKMANS' COMP OPINION IN YOUR OPINION, WAS THE INCIDENT THAT THE PATIENT DESCRIBED THE COMPETENT MEDICAL CAUSE OF THIS INJURY/ILLNESS? YES ARE THE PATIENT'S COMPLAINTS CONSISTENT WITH HIS/HER HISTORY OF THE INJURY/ILLNESS? YES IS THE PATIENT'S HISTORY OF THE INJURY/ILLNESS CONSISTENT WITH YOUR OBJECTIVE FINDING? YES WHAT IS THE PERCENTAGE OF TEMPORARY IMPAIRMENT? TOTAL = 100% IS THE PATIENT WORKING? NO DOCTOR ON SITE: GILBERTO ESCOBAR MD DIAGNOSTIC IMAGING [facility] FACET BLOCK (PAIN)[id number] PROCEDURE CODES 6045F RADXPS IN END [id number] PXD [id number] INJ PARAVERT F JNT C/T 1 LEV, MODIFIERS: RT [id number] INJ PARAVERT F JNT C/T 2 LEV, MODIFIERS: RT DISPOSITION & COMMUNICATION FOLLOW UP 3 WEEKS ELECTRONICALLY SIGNED BY GILBERTO MEDINA MD, MD ON 10/13/2018 AT 05:24 PM EST DISCLAIMER : THIS IS A VISIT SUMMARY EXTRACTED FROM THE [employer] CHART. IT IS NOT A COPY OF THE [employer] PROGRESS NOTE. MTDD
== END ==
LOC: M PAIN 11:30
PROVIDERS: ATTEND Anesthesiology
DX: G89.29 Other chronic pain (principal); M47.812 Spondylosis without myelopathy or radiculopathy, cervical region; J45.909 Unspecified asthma, uncomplicated; G43.909 Migraine, unspecified, not intractable, without status migrainosus; K21.9 Gastro-esophageal reflux disease without esophagitis; F32.9 Major depressive disorder, single episode, unspecified; M79.7 Fibromyalgia; Z79.899 Other long term (current) drug therapy; Z88.5 Allergy status to narcotic agent; Z88.8 Allergy status to other drugs, medicaments and biological substances; Z91.09 Other allergy status, other than to drugs and biological substances; Z91.013 Allergy to seafood; Z91.040 Latex allergy status; Z92.29 Personal history of other drug therapy; Z86.018 Personal history of other benign neoplasm; Z87.891 Personal history of nicotine dependence
CPT/HCPCS: 64490; 64491; J2405; J3301; Q9967

== ENCOUNTER → 2018-11-22 | Outpatient (CLI) | payer OTHER ==
[~2018-11-22] MED LIST changes: -BUPIVACAINE HCL 0.25% 30 ML VIAL As Ordered ONE; -ISOVUE-M 300 61% 15ML VIAL (Q9967) As Ordered ONE; -LIDOCAINE 1% SDV INJ 30 ML VIAL As Ordered ONE; -ONDANSETRON 4MG/2ML VIAL (J2405) As Ordered ONE; -TRIAMCINOLONE ACETONIDE SUSP 40 MG/ML VIAL (J3301) As Ordered ONE; -diazePAM 5 MG TAB As Ordered ONE; -oxyCODONE 5MG TAB As Ordered ONE
--- NOTE | 2018-12-06 01:48 | ECWPNPC ---
PATIENT NAME: DELIA BLOUNT : 1960 GENDER: FEMALE VISIT DATE: 11/22/2018 DISCHARGE DATE: 11/22/18 1546 VISIT LOCKED DATE TIME: PHYSICIAN: GILBERTO MEDINA MD RESOURCE: GILBERTO MEDINA MD REASON FOR APPOINTMENT 1. W/C POST PROC HISTORY OF PRESENT ILLNESS HISTORY OF PRESENT ILLNESS: PAIN THE PATIENT DESCRIBES THE PAIN... 58 YEAR OLD FEMALE PATIENT WITH A HISTORY OF CHRONIC NECK PAIN. THE PATIENT DESCRIBES THE PAIN ACHING, BURNING, SORE, TENDER, SHARP, STABBING, SHOOTING, AND CONTINUOUS WITH A PAIN SCORE OF 4-7/10 DEPENDING ON PHYSICAL ACTIVITY. 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 THE PATIENT WAS HERE FOR A THERAPEUTIC CERVICAL FACET BLOCK ON 09/25/2018 AND REPORTS HAVING MORE THAN 50% PAIN RELIEF AND SAYS THAT SHE IS STILL FEELING BENEFIT FROM THE INJECTION. THE PATIENT SAYS THAT SHE HAS NOTICED AN INCREASE IN HER FUNCTIONALITY AND DECREASE IN HEADACHES SINCE THE INJECTION. THE PATIENT IS CURRENTLY USING TRAMADOL, LYRICA, CYMBALTA, AND CYCLOBENZAPRINE TO AID IN PAIN RELIEF. THE PATIENT SAYS THAT THE USE OF THESE MEDICATIONS HELP HER REMAIN MOBILE AND FUNCTIONAL. PATIENT DENIES UNEXPLAINABLE WEIGHT LOSS, FEVER, CHILLS, NEW CHANGES ON HER URINARY OR BOWEL CONTROL. FALL RISK SCREENING: SCREENING : NO FALLS IN THE PAST YEAR. CURRENT MEDICATIONS TAKING ZANTAC 150 MG TABLET 1 TABLET ORALLY BID TAKING PROTONIX 40 MG TAB 1 TAB ORALLY TWICE DAILY TAKING CYMBALTA 20 MG CAPSULE DELAYED RELEASE PARTICLES 1 CAPSULE ORALLY WITH FOOD ONCE A DAY FOR PAIN TAKING LYRICA 150 MG CAPSULE 1 CAPSULE ORALLY TWICE DAILY TAKING TRAMADOL HCL 50 MG TABLET 1 TAB ORALLY EVERY 6 HOURS NEEDED PAIN MDD=4 TAKING CYCLOBENZAPRINE HCL 10 MG TABLET 1 TABLET ORALLY FOR SPSMS AND PAIN THREE TIMES A DAY NEEDED MDD3 TAKING ALBUTEROL SULFATE HFA 108 (90 BASE) MCG/ACT AEROSOL SOLUTION 2 PUFFS NEEDED INHALATION EVERY 4 HRS TAKING OMEGA 3 1000 MG CAPSULE 1 CAPSULE ORALLY ONCE A DAY TAKING LUTEIN VISION BLEND CAPSULE ORALLY TAKING VITAMIN D3 5000 UNITS CAPSULE 1 CAPSULE ORALLY EVERY 3 DAYS TAKING MEDICAL COMPRESSION STOCKINGS - MISCELLANEOUS DIRECTED TOPICALLY DAILY; ICD10: R60.0 TAKING VITAMIN B12 1000 MCG TABLET EXTENDED RELEASE 1 TABLET ORALLY ONCE A DAY TAKING ESTRACE 0.1 MG/GM CREAM 0.5 GM VAGINAL TWICE A WEEK TAKING BENADRYL 25 MG TABLET 1 TABLET ORALLY DAILY BEFORE BEDTIME TAKING COLACE 100 MG CAPSULE 1 CAPSULE NEEDED ORALLY ONCE A DAY TAKING CHERATUSSIN AC 100-10 MG/5ML SYRUP 5 ML ORALLY TWICE DAILY NEEDED TAKING ZOFRAN 8 MG TABLET 1 TABLET ORALLY TWICE A DAY TAKING [id number] 50-325-40 MG TABLET 1 TABLET NEEDED ORALLY EVERY 4 HRS TAKING ESTRACE 0.5 MG TABLET 1 TABLET ORALLY ONCE DAILY TAKING METOPROLOL SUCCINATE 25 MG CAPSULE ER 24 HOUR SPRINKLE 1 CAPSULE ORALLY ONCE A DAY FOR MIGRAINE PROPHYLAXIS TAKING LOPERAMIDE HCL 2 MG CAPSULE 2 CAPSULE NEEDED ORALLY FOUR TIMES A DAY NEEDED (MDD 8 TABS) TAKING CHOLESTYRAMINE 4 GM/DOSE POWDER 1 SCOOP ORALLY TWICE A DAY NOT-TAKING ZOFRAN 4 MG TABLET 1 TABLETS ORALLY FOR NAUSEAS EVERY 6 HOURS NEEDED MDD3 NOT-TAKING CROMOLYN SODIUM 4 % SOLUTION 1 DROP INTO AFFECTED EYE OPHTHALMIC FOUR TIMES A DAY NOT-TAKING SUMATRIPTAN SUCCINATE 100 MG TABLET 1 TABLET NEEDED ONE TIME ORALLY TAKE BID PRN MAIGRAINE. MDD=2. MAX 10 MIGRAINE DAY SPER MO, NOTES: STOPPED TAKING MED PER PAIN CENTER TOLD HER MEDICATION LIST REVIEWED AND RECONCILED WITH THE PATIENT PAST MEDICAL HISTORY ESOPHAGEAL REFLUX ASTHMA MIGRAINE HEADACHE ARTHRITIS ABNORMAL PAP SMEAR/SEVERAL JOEL 3 W/CRYO (DR. 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 PATH REPORT: FRAGMENTS OF COLONIC MUCOSA WITH INCREASED LYMPHOPLASMA INFILTRATES OF LAMINA PROPRIA 01/2014 ANTERIOR CERVICAL DISCECTOMY AND FUSION (ACDF) BY DR. NUSRAT THOMPSON [facility] 06/04/15 LEFT CTS RELEASE 09/13/17 FAMILY HISTORY FATHER: ALIVE MOTHER: , ANEURYSM, OSTEOPOROSIS SIBLINGS: ALIVE, HEART DISEASE SON(S): ALIVE 1 BROTHER(S) , 2 SISTER(S) - HEALTHY. 2 SON(S) - HEALTHY. SOCIAL HISTORY GENERAL: TOBACCO USE ARE YOU A:FORMER SMOKER HOW LONG HAS IT BEEN SINCE YOU LAST SMOKED?5-10 YEARS LATEX QUESTIONNAIRE LATEX ALLERGY : HAVE YOU EVER DEVELOPED ANY TYPE OF REACTION AFTER HANDLING LATEX PRODUCTS SUCH RUBBER GLOVES, CONDOMS, DIAPHRAGMS, BALLOONS, SOCKS, OR UNDERWEAR?NO LATEX ALLERGY : HAVE YOU EVER DEVELOPED ANY TYPE OF REACTION DURING OR AFTER DENTAL APPOINTMENT, VAGINAL/RECTAL EXAMINATION, SURGICAL PROCEDURE, OR ANY OTHER EXPOSURE?YES - PLEASE INDICATE :SURGICAL PROCEDURE LATEX RISK : HAVE YOU EVER HAD ANY DIFFICULTY BREATHING OR HIVES AFTER EATING OR HANDLING ANY FRUITS, OR VEGETABLES; SUCH KIWI, BANANAS, STONE FRUITS, OR CHESTNUTSNO LATEX RISK : DO YOU HAVE A PREVIOUS PERSONAL HISTORY OF MORE THAN NINE SURGERIES, SPINA BIFIDA, OR REPEATED CATHERTIZATIONS? YES - PLEASE INDICATE : > 9 SURGERIES LATEX RISK : ARE YOU FREQUENTLY EXPOSED TO LATEX PRODUCTS IN YOUR OCCUPATION?NO DATE ASKED : 11/22/2018 ALCOHOL SCREENING DID YOU HAVE A DRINK CONTAINING ALCOHOL IN THE PAST YEAR?NO POINTS0 INTERPRETATIONNEGATIVE RECREATIONAL DRUG USE DRUG USE?NO CAFFEINE CAFFEINE USE?NO SEXUAL HX HAD SEX IN THE LAST 12 MONTHS (VAGINAL, ORAL, OR ANAL)?NO HIV / HEP-C SCREENING HIV TEST OFFERED TO PATIENT:YES DATE OFFERED:10/25/2017 HEP-C TEST OFFERED TO PATIENT:YES DATE OFFERED:10/25/2017 BROCHURE PROVIDED TO PATIENTNO VOODOO [id number] RELIGION LANGUAGE LANGUAGES SPOKEN:BOTSWANAN OTHER-GERMAN EDUCATION LEVEL OF EDUCATION:HIGH SCHOOL LEARNING BARRIERS / SPECIAL NEEDS CHANGE FROM LAST VISIT?NO BARRIERS TO LEARNING?NO HEARING IMPAIRED?NO VISION IMPAIRED?YES COGNITIVELY IMPAIRED?NO :CORRECTIVE LENSES READINESS TO LEARN?YES LEARNING PREFERENCES?NO LEARNING CAPABILITIES PRESENT?YES EMOTIONAL BARRIERS?NO SPECIAL DEVICES?NO POKER DEALER NEEDED?NO OCCUPATION: UNEMPLOYED. DIET: REGULAR. EXERCISE: NO REGULAR EXERCISE. MARITAL STATUS: .. OTHERS AT HOME: BOYFRIEND. PAIN CLINIC PFS, CLERGY, PUBLIC HEALTH REFERRALS PFS REFERRAL NEEDED?NO CLERGY REFERRAL NEEDED?NO PUBLIC HEALTH REFERRAL NEEDED?NO WAS THE PROVIDER NOTIFIED OF ANY PERTINENT INFO?NO HAS THE PATIENT BEEN EDUCATED REGARDING HIS/HER PLAN OF CARE?YES HAS THE PATIENT BEEN EDUCATED REGARDING PAIN, THE RISK FOR PAIN, THE IMPORTANCE OF EFFECTIVE PAIN MANAGEMENT, AND THE PAIN ASSESSMENT PROCESS?YES ADVANCE DIRECTIVE ADVANCE DIRECTIVE DISCUSSED WITH PATIENT:YES PATIENT DECLINED HCP INFORMATION. USED TO SMOKE FOR OVER 20 YRS ON/OFF WITH 3 CIGS/DAYREVIEWED WITH PATIENT 11/22/18 1447 JS. HOSPITALIZATION/MAJOR DIAGNOSTIC PROCEDURE ACDF SURGERY, [facility] 92/15-06/07/15 C-DIFF 08/14/17-08/18/17 REVIEW OF SYSTEMS REVIEWED BY: PROVIDER: GILBERTO MEDINA MD . CONSTITUTIONAL: ANY CHANGE IN YOUR MEDICAL CONDITION? NO . CHILLS NO . FEVER NO . INFECTION: DO YOU HAVE NEW INFECTIONS? NO . DO YOU HAVE HISTORY OF MRSA? NO . MUSCULOSKELETAL: ANY NEW PATTERNS OF PAIN OR NUMBNESS? YES, STATES SUDDEN SHOOTING PAINS RECENTLY IN NECK AND DOWN THROUGH ARMS . GASTROENTEROLOGY: ANY NEW CHANGE IN BOWEL CONTROL? NO . GENITOURINARY: ANY NEW CHANGE IN BLADDER CONTROL? NO . IS THERE A CHANCE YOU COULD BE ? NO . HEMATOLOGY/LYMPH: DO YOU TAKE ANY BLOOD THINNERS? (FOR EXAMPLE- COUMADIN, PLAVIX, AGGRENOX, PLATEL, PRADAXA, OR XARELTO) NO . WHEN WAS YOUR LAST DOSE? DATE: TIME: . NEUROLOGY: HAVE YOU FALLEN IN THE PAST 12 MONTHS? NO . ANY NEW EXTREMITY NUMBNESS OR WEAKNESS? NO . CARDIOLOGY: DO YOU HAVE A PACEMAKER OR DEFIBRILLATOR? NO . RESPIRATORY: HAVE YOU BEEN SICK IN THE PAST WEEK? NO . FEVER NO . FLU LIKE SYMPTOMS? NO . COUGH NO . INTEGUMENTARY: DO YOU HAVE ANY RASHES OR OPEN SORES? NO . ALLERGIC/IMMUNO: ARE YOU ALLERGIC TO IV DYE? NO . ANY NEW ALLERGIES? NO . PSYCHIATRIC: DO YOU HAVE THOUGHTS OF HURTING YOURSELF OR SOMEONE ELSE? NO . ARE YOU ABUSED, NEGLECTED, OR IN AN UNSAFE ENVIRONMENT? NO . ENDOCRINOLOGY: ARE YOU DIABETIC? NO . OTHER: DO YOU NEED ANY PRESCRIPTIONS? YES . IF YES, PLEASE LIST: ____CYCLOBENZAPRINE, TRAMADOL, LYRICA . ANY NEW PROBLEMS WITH YOUR MEDICATIONS? NO . WHEN DID YOU LAST EAT? ____ . WHEN DID YOU LAST DRINK? ____ . WHAT DID YOU LAST DRINK? ____ . NAME OF PERSON DRIVING YOU HOME? ____ . DO YOU HAVE ANY OTHER QUESTIONS OR CONCERNS NO . VITAL SIGNS WT 168.8 LBS, HT 60 IN, BMI 32.96 INDEX, BP 114/81 MM HG, HR 98 /MIN, RR 18 /MIN, TEMP 97.3 F, OXYGEN SAT % 94%, SAFE IN ENV? (Y/N) YES, NA INITIALS SC 14:40, REVIEWED BY: WILDER. EXAMINATION GENERAL EXAMINATION: PATIENT IS ALERT O X 3 AND COOPERATIVE. TENDERNESS IN THE NECK AREA. MRI OF THE CERVICAL SPINE DONE ON 06/08/2014 SHOWS FACET ARTHROPATHY CHANGES AT MULTIPLE LEVELS. 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 BLOUNT'S PAIN MANAGEMENT CASE. THE PATIENT REPORTS THAT SHE IS DOING WELL SINCE HER PREVIOUS INJECTION, SO WE WILL NOT BE MOVING FORWARD WITH ANY INTERVENTIONS AT THIS TIME. THE PATIENT WILL CONTINUE WITH THE SAME MEDICATION REGIMENT. THE PATIENT BROUGHT HER MEDICATIONS WITH HER TO TODAY'S VISIT IN THEIR ORIGINAL BOTTLES. ISTOP _#[id number] WAS REVIEWED. URINE TOXICOLOGY DONE ON 06/13/2018 SHOWS CONCURRENT RESULTS. I WILL PERFORM A PILL COUNTING TODAY. THE PATIENT WILL FOLLOW UP IN 6 WEEKS. INSTRUCTIONS WERE GIVEN, QUESTIONS WERE ANSWERED, PATIENT REPORTS UNDERSTANDING AND AGREES WITH THE PLAN. I, MARGOT YEN, DOCUMENTED THE ABOVE INFORMATION ACTING A SCRIBE FOR DR. MEDINA. I HAVE REVIEWED THE ABOVE DOCUMENT, WRITTEN BY AMRGOT SAMIBLarry AND I VERIFY THAT IT IS ACCURATE.. OTHERS REFILL LYRICA CAPSULE, 150 MG, 1 CAPSULE, ORALLY, TWICE DAILY, 30 DAY(S), 60, REFILLS 2 REFILL TRAMADOL HCL TABLET, 50 MG, 1 TAB, ORALLY, EVERY 6 HOURS NEEDED PAIN MDD=4, 30 DAY(S), 120, REFILLS 2 REFILL CYCLOBENZAPRINE HCL TABLET, 10 MG, 1 TABLET, ORALLY FOR SPSMS AND PAIN, THREE TIMES A DAY NEEDED MDD3, 30 DAY(S), 80, REFILLS 1 REFILL CYMBALTA CAPSULE DELAYED RELEASE PARTICLES, 30 MG, 1 CAPSULE, ORALLY, ONCE A DAY FOR PAIN, 30 DAY(S), 30, REFILLS 1 PROCEDURES PN WORKMANS' COMP OPINION IN YOUR OPINION, WAS THE INCIDENT THAT THE PATIENT DESCRIBED THE COMPETENT MEDICAL CAUSE OF THIS INJURY/ILLNESS? YES ARE THE PATIENT'S COMPLAINTS CONSISTENT WITH HIS/HER HISTORY OF THE INJURY/ILLNESS? YES IS THE PATIENT'S HISTORY OF THE INJURY/ILLNESS CONSISTENT WITH YOUR OBJECTIVE FINDING? YES WHAT IS THE PERCENTAGE OF TEMPORARY IMPAIRMENT? TOTAL = 100% IS THE PATIENT WORKING? NO DOCTOR ON SITE: GILBERTO ESCOBAR MD PROCEDURE CODES FA211 ESTABILISHED PATIENT [facility] FACILITY CHARGE G8427 CURRENT MEDS W/DOSAGES DOCUMENTED G8730 PAIN ASSESS POS TOOL F/U PLAN DOC DISPOSITION & COMMUNICATION FOLLOW UP 6 WEEKS (REASON: W/C NECK) ELECTRONICALLY SIGNED BY GILBERTO MEDINA MD, ON 12/05/2018 AT 09:21 AM EDT DISCLAIMER : THIS IS A VISIT SUMMARY EXTRACTED FROM THE [email or web address] CHART. IT IS NOT A COPY OF THE [email or web address] PROGRESS NOTE. MARY
== END ==
LOC: M PAIN 14:30
PROVIDERS: ATTEND Anesthesiology
DX: M47.812 Spondylosis without myelopathy or radiculopathy, cervical region (principal); M96.1 Postlaminectomy syndrome, not elsewhere classified; K21.9 Gastro-esophageal reflux disease without esophagitis; M19.90 Unspecified osteoarthritis, unspecified site; F32.9 Major depressive disorder, single episode, unspecified; Z79.899 Other long term (current) drug therapy; Z88.5 Allergy status to narcotic agent; Z88.8 Allergy status to other drugs, medicaments and biological substances; Z91.09 Other allergy status, other than to drugs and biological substances; Z91.013 Allergy to seafood; Z91.040 Latex allergy status; Z92.29 Personal history of other drug therapy; Z87.891 Personal history of nicotine dependence; Z86.19 Personal history of other infectious and parasitic diseases

== ENCOUNTER → 2019-01-07 | Outpatient (CLI) | payer OTHER ==
[~2019-01-07] MED LIST changes: -/BACL20TA; -/ONDA4TA PO; +BACL1TAB9; +ONDA-1 PO; -ORPH-8 PO; +ORPH100T2 PO; +PROM-190 PO; -PROM25TA PO; +VITA-183 PO; -VITA1CAP2 PO
--- NOTE | 2019-01-19 23:58 | ECWPNPC ---
PATIENT NAME: DELIA BLOUNT : 1960 GENDER: FEMALE VISIT DATE: 01/07/2019 DISCHARGE DATE: 01/07/191653 VISIT LOCKED DATE TIME: PHYSICIAN: GILBERTO MEDINA MD RESOURCE: GILBERTO MEDINA MD REASON FOR APPOINTMENT 1. W/C NECK HISTORY OF PRESENT ILLNESS HISTORY OF PRESENT ILLNESS: PAIN THE PATIENT DESCRIBES THE PAIN... 58 YEAR OLD FEMALE PATIENT WITH A HISTORY OF CHRONIC NECK PAIN. THE PATIENT DESCRIBES THE PAIN ACHING, BURNING, STABBING, SHOOTING, SORE, TENDER, SHARP, AND CONTINUOUS WITH A PAIN SCORE OF 5-7/10 DEPENDING ON PHYSICAL ACTIVITY. 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 THE PATIENT RECEIVED A THERAPEUTIC CERVICAL FACET BLOCK ON 09/25/2018. THE PATIENT SAYS THE BLOCK IS STILL HELPING WITH PAIN RELIEF AND SHE IS VERY HAPPY WITH THE RESULTS. PATIENT DENIES UNEXPLAINABLE WEIGHT LOSS, FEVER, CHILLS, NEW CHANGES ON HER URINARY OR BOWEL CONTROL. FALL RISK SCREENING: SCREENING :NO FALLS REPORTED IN THE LAST YEAR CURRENT MEDICATIONS TAKING ZANTAC 150 MG TABLET 1 TABLET ORALLY BID TAKING ALBUTEROL SULFATE HFA 108 (90 BASE) MCG/ACT AEROSOL SOLUTION 2 PUFFS NEEDED INHALATION EVERY 4 HRS TAKING OMEGA 3 1000 MG CAPSULE 1 CAPSULE ORALLY ONCE A DAY TAKING LUTEIN VISION BLEND CAPSULE ORALLY TAKING VITAMIN D3 5000 UNITS CAPSULE 1 CAPSULE ORALLY EVERY 3 DAYS TAKING MEDICAL COMPRESSION STOCKINGS - MISCELLANEOUS DIRECTED TOPICALLY DAILY; ICD10: R60.0 TAKING VITAMIN B12 1000 MCG TABLET EXTENDED RELEASE 1 TABLET ORALLY ONCE A DAY TAKING ESTRACE 0.1 MG/GM CREAM 0.5 GM VAGINAL TWICE A WEEK TAKING BENADRYL 25 MG TABLET 1 TABLET ORALLY DAILY BEFORE BEDTIME TAKING COLACE 100 MG CAPSULE 1 CAPSULE NEEDED ORALLY ONCE A DAY TAKING CHERATUSSIN AC 100-10 MG/5ML SYRUP 5 ML ORALLY TWICE DAILY NEEDED TAKING ZOFRAN 8 MG TABLET 1 TABLET ORALLY TWICE A DAY TAKING [id number] 50-325-40 MG TABLET 1 TABLET NEEDED ORALLY EVERY 4 HRS TAKING ESTRACE 0.5 MG TABLET 1 TABLET ORALLY ONCE DAILY TAKING METOPROLOL SUCCINATE 25 MG CAPSULE ER 24 HOUR SPRINKLE 1 CAPSULE ORALLY ONCE A DAY FOR MIGRAINE PROPHYLAXIS TAKING LOPERAMIDE HCL 2 MG CAPSULE 2 CAPSULE NEEDED ORALLY FOUR TIMES A DAY NEEDED (MDD 8 TABS) TAKING CHOLESTYRAMINE 4 GM/DOSE POWDER 1 SCOOP ORALLY TWICE A DAY TAKING ACYCLOVIR 400 MG TABLET 1 TABLET ORALLY TWICE A DAY TAKING ACYCLOVIR 800 MG TABLET 1 TABLET ORALLY TWICE A DAY TAKING PROTONIX 40 MG TAB 1 TAB ORALLY TWICE DAILY TAKING LYRICA 150 MG CAPSULE 1 CAPSULE ORALLY TWICE DAILY TAKING TRAMADOL HCL 50 MG TABLET 1 TAB ORALLY EVERY 6 HOURS NEEDED PAIN MDD=4 TAKING CYCLOBENZAPRINE HCL 10 MG TABLET 1 TABLET ORALLY FOR SPSMS AND PAIN THREE TIMES A DAY NEEDED MDD3 TAKING CYMBALTA 30 MG CAPSULE DELAYED RELEASE PARTICLES 1 CAPSULE ORALLY ONCE A DAY FOR PAIN NOT-TAKING ZOFRAN 4 MG TABLET 1 TABLETS ORALLY FOR NAUSEAS EVERY 6 HOURS NEEDED MDD3 NOT-TAKING CROMOLYN SODIUM 4 % SOLUTION 1 DROP INTO AFFECTED EYE OPHTHALMIC FOUR TIMES A DAY NOT-TAKING SUMATRIPTAN SUCCINATE 100 MG TABLET 1 TABLET NEEDED ONE TIME ORALLY TAKE BID PRN MAIGRAINE. MDD=2. MAX 10 MIGRAINE DAY SPER MO, NOTES: STOPPED TAKING MED PER PAIN CENTER TOLD HER MEDICATION LIST REVIEWED AND RECONCILED WITH THE PATIENT PAST MEDICAL HISTORY ESOPHAGEAL REFLUX ASTHMA MIGRAINE HEADACHE ARTHRITIS ABNORMAL PAP SMEAR/SEVERAL JOEL 3 W/CRYO (DR. 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 PATH REPORT: FRAGMENTS OF COLONIC MUCOSA WITH INCREASED LYMPHOPLASMA INFILTRATES OF LAMINA PROPRIA 01/2014 ANTERIOR CERVICAL DISCECTOMY AND FUSION (ACDF) BY DR. NUSRAT THOMPSON, [facility] 06/04/15 LEFT CTS RELEASE 09/13/17 FAMILY HISTORY FATHER: ALIVE MOTHER: , ANEURYSM, OSTEOPOROSIS SIBLINGS: ALIVE, HEART DISEASE SON(S): ALIVE 1 BROTHER(S) , 2 SISTER(S) - HEALTHY. 2 SON(S) - HEALTHY. SOCIAL HISTORY GENERAL: TOBACCO USE ARE YOU A:FORMER SMOKER HOW LONG HAS IT BEEN SINCE YOU LAST SMOKED?5-10 YEARS HIV / HEP-C SCREENING HIV TEST OFFERED TO PATIENT:YES DATE OFFERED:10/25/2017 HEP-C TEST OFFERED TO PATIENT:YES DATE OFFERED:10/25/2017 BROCHURE PROVIDED TO PATIENTNO OTHERS AT HOME: BOYFRIEND. EDUCATION LEVEL OF EDUCATION:HIGH SCHOOL DIET: REGULAR. LANGUAGE LANGUAGES SPOKEN:KHMER OTHER-CZECH RECREATIONAL DRUG USE DRUG USE?NO EXERCISE: NO REGULAR EXERCISE. 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 PAIN CLINIC PFS, CLERGY, PUBLIC HEALTH REFERRALS PFS REFERRAL NEEDED?NO CLERGY REFERRAL NEEDED?NO PUBLIC HEALTH REFERRAL NEEDED?NO WAS THE PROVIDER NOTIFIED OF ANY PERTINENT INFO?YES HAS THE PATIENT BEEN EDUCATED REGARDING HIS/HER PLAN OF CARE?YES HAS THE PATIENT BEEN EDUCATED REGARDING PAIN, THE RISK FOR PAIN, THE IMPORTANCE OF EFFECTIVE PAIN MANAGEMENT, AND THE PAIN ASSESSMENT PROCESS?YES LATEX QUESTIONNAIRE LATEX ALLERGY : HAVE YOU EVER DEVELOPED ANY TYPE OF REACTION AFTER HANDLING LATEX PRODUCTS SUCH RUBBER GLOVES, CONDOMS, DIAPHRAGMS, BALLOONS, SOCKS, OR UNDERWEAR?NO LATEX ALLERGY : HAVE YOU EVER DEVELOPED ANY TYPE OF REACTION DURING OR AFTER DENTAL APPOINTMENT, VAGINAL/RECTAL EXAMINATION, SURGICAL PROCEDURE, OR ANY OTHER EXPOSURE?YES - PLEASE INDICATE :SURGICAL PROCEDURE LATEX RISK : HAVE YOU EVER HAD ANY DIFFICULTY BREATHING OR HIVES AFTER EATING OR HANDLING ANY FRUITS, OR VEGETABLES; SUCH KIWI, BANANAS, STONE FRUITS, OR CHESTNUTSNO LATEX RISK : DO YOU HAVE A PREVIOUS PERSONAL HISTORY OF MORE THAN NINE SURGERIES, SPINA BIFIDA, OR REPEATED CATHERTIZATIONS? YES - PLEASE INDICATE : > 9 SURGERIES LATEX RISK : ARE YOU FREQUENTLY EXPOSED TO LATEX PRODUCTS IN YOUR OCCUPATION?NO DATE ASKED : 01/07/2019 CAFFEINE CAFFEINE USE?NO ADVANCE DIRECTIVE ADVANCE DIRECTIVE DISCUSSED WITH PATIENT:YES PATIENT DECLINED HCP INFORMATION AND DECLINED ASSISTANCE WITH PAPERWORK RASTAFARIAN [id number] NONDENOMINATIONAL MARITAL STATUS: .. ALCOHOL SCREENING DID YOU HAVE A DRINK CONTAINING ALCOHOL IN THE PAST YEAR?NO POINTS0 INTERPRETATIONNEGATIVE OCCUPATION: UNEMPLOYED. SEXUAL HX HAD SEX IN THE LAST 12 MONTHS (VAGINAL, ORAL, OR ANAL)?NO USED TO SMOKE FOR OVER 20 YRS ON/OFF WITH 3 CIGS/DAYREVIEWED WITH PATIENT 11/22/18 1447 JS. HOSPITALIZATION/MAJOR DIAGNOSTIC PROCEDURE ACDF SURGERY, [facility] 925/15-06/07/15 C-DIFF 08/14/17-08/18/17 REVIEW OF SYSTEMS REVIEWED BY: PROVIDER: GILBERTO MEDINA MD . CONSTITUTIONAL: ANY CHANGE IN YOUR MEDICAL CONDITION? NO . CHILLS NO . FEVER NO . INFECTION: DO YOU HAVE NEW INFECTIONS? NO . DO YOU HAVE HISTORY OF MRSA? NO . MUSCULOSKELETAL: ANY NEW PATTERNS OF PAIN OR NUMBNESS? NO . GASTROENTEROLOGY: ANY NEW CHANGE IN BOWEL CONTROL? NO . GENITOURINARY: ANY NEW CHANGE IN BLADDER CONTROL? NO . IS THERE A CHANCE YOU COULD BE ? NO . HEMATOLOGY/LYMPH: DO YOU TAKE ANY BLOOD THINNERS? (FOR EXAMPLE- COUMADIN, PLAVIX, AGGRENOX, PLATEL, PRADAXA, OR XARELTO) NO . WHEN WAS YOUR LAST DOSE? DATE: TIME: . NEUROLOGY: HAVE YOU FALLEN IN THE PAST 12 MONTHS? NO . ANY NEW EXTREMITY NUMBNESS OR WEAKNESS? NO . CARDIOLOGY: DO YOU HAVE A PACEMAKER OR DEFIBRILLATOR? NO . RESPIRATORY: HAVE YOU BEEN SICK IN THE PAST WEEK? NO . FEVER NO . FLU LIKE SYMPTOMS? NO . COUGH NO . INTEGUMENTARY: DO YOU HAVE ANY RASHES OR OPEN SORES? NO . ALLERGIC/IMMUNO: ARE YOU ALLERGIC TO IV DYE? NO . ANY NEW ALLERGIES? NO . PSYCHIATRIC: DO YOU HAVE THOUGHTS OF HURTING YOURSELF OR SOMEONE ELSE? NO . ARE YOU ABUSED, NEGLECTED, OR IN AN UNSAFE ENVIRONMENT? NO . ENDOCRINOLOGY: ARE YOU DIABETIC? NO . OTHER: DO YOU NEED ANY PRESCRIPTIONS? YES, LYRICA, TRAMADOL, CYCLOBENZAPRINE, CYMBALTA . IF YES, PLEASE LIST: ____ . ANY NEW PROBLEMS WITH YOUR MEDICATIONS? NO . WHEN DID YOU LAST EAT? ____ . WHEN DID YOU LAST DRINK? ____ . WHAT DID YOU LAST DRINK? ____ . NAME OF PERSON DRIVING YOU HOME? ____ . DO YOU HAVE ANY OTHER QUESTIONS OR CONCERNS NO . VITAL SIGNS WT 172.2 LBS, HT 60 IN, BMI 33.63 INDEX, BP 122/66 MM HG, HR 68 /MIN, RR 18 /MIN, TEMP 97.4 F, OXYGEN SAT % 92%, SAFE IN ENV? (Y/N) Y, NA INITIALS AW 1550, REVIEWED BY: RANDEE. EXAMINATION GENERAL EXAMINATION: PATIENT IS ALERT O X 3 AND COOPERATIVE. TENDERNESS OVER THE CERVICAL AREA. CERVICAL MRI DONE ON 06/08/2014 SHOWS FUSIONS AND FACET ARTHROPATHY CHANGES AT MULTIPLE LEVELS. 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 BLOUNT'S PAIN MANAGEMENT CASE. THE PATIENT REPORTS DOING VERY WELL SINCE THE CERVICAL FACET BLOCK DONE ON 09/25/2018 AND SHE CURRENTLY DOES NOT NEED AN INJECTION THERAPY AT THIS TIME. I DISCUSSED WITH THE PATIENT ABOUT HER TYLENOL USE SHE IS CURRENTLY USING 6 GRAMS PER DAY AND THE SAFETY RECOMMENDATIONS. I AM REDUCING TRAMADOL AND INCREASING CYMBALTA. I ALSO REFILLED HER OTHER MEDICATIONS. THE PATIENT WILL FOLLOW UP IN 1 MONTH. INSTRUCTIONS WERE GIVEN, QUESTIONS WERE ANSWERED, PATIENT REPORTS UNDERSTANDING AND AGREES WITH THE PLAN. I, HEATH DALY, DOCUMENTED THE ABOVE INFORMATION ACTING A SCRIBE FOR DR. MEDINA. I HAVE REVIEWED THE ABOVE DOCUMENT, WRITTEN BY HEATH SAMIBLarry AND I VERIFY THAT IT IS ACCURATE. . OTHERS REFILL LYRICA CAPSULE, 150 MG, 1 CAPSULE, ORALLY, TWICE DAILY, 30 DAY(S), 60, REFILLS 0 REFILL TRAMADOL HCL TABLET, 50 MG, 1 TAB, ORALLY, EVERY 6 HOURS NEEDED PAIN MDD=4, 30 DAY(S), 90, REFILLS 0 REFILL CYCLOBENZAPRINE HCL TABLET, 10 MG, 1 TABLET, ORALLY FOR SPSMS AND PAIN, THREE TIMES A DAY NEEDED MDD3, 30 DAY(S), 80, REFILLS 1 CONTINUE CYMBALTA CAPSULE DELAYED RELEASE PARTICLES, 30 MG, 1 CAPSULE, ORALLY, ONCE A DAY FOR PAIN, 30 DAYS, 30, REFILLS 1 PROCEDURES PN WORKMANS' COMP OPINION IN YOUR OPINION, WAS THE INCIDENT THAT THE PATIENT DESCRIBED THE COMPETENT MEDICAL CAUSE OF THIS INJURY/ILLNESS? YES ARE THE PATIENT'S COMPLAINTS CONSISTENT WITH HIS/HER HISTORY OF THE INJURY/ILLNESS? YES IS THE PATIENT'S HISTORY OF THE INJURY/ILLNESS CONSISTENT WITH YOUR OBJECTIVE FINDING? YES WHAT IS THE PERCENTAGE OF TEMPORARY IMPAIRMENT? TOTAL = 100% IS THE PATIENT WORKING? NO DOCTOR ON SITE: GILBERTO ESCOBAR MD PROCEDURE CODES FA211 ESTABILISHED PATIENT [facility] FACILITY CHARGE [id number] CURRENT MEDS W/DOSAGES DOCUMENTED G8730 PAIN ASSESS POS TOOL F/U PLAN DOC DISPOSITION & COMMUNICATION FOLLOW UP 4 WEEKS ELECTRONICALLY SIGNED BY GILBERTO MEDINA MD, MD ON 01/19/2019 AT 05:10 PM EDT DISCLAIMER : THIS IS A VISIT SUMMARY EXTRACTED FROM THE [facility] CHART. IT IS NOT A COPY OF THE [employer] PROGRESS NOTE. MARY
== END ==
LOC: M PAIN 15:45
PROVIDERS: ATTEND Anesthesiology
DX: M96.1 Postlaminectomy syndrome, not elsewhere classified (principal); M47.813 Spondylosis without myelopathy or radiculopathy, cervicothoracic region; K21.9 Gastro-esophageal reflux disease without esophagitis; J45.909 Unspecified asthma, uncomplicated; G43.909 Migraine, unspecified, not intractable, without status migrainosus; M19.90 Unspecified osteoarthritis, unspecified site; M79.7 Fibromyalgia; F32.9 Major depressive disorder, single episode, unspecified; Z79.899 Other long term (current) drug therapy; Z88.1 Allergy status to other antibiotic agents; Z88.8 Allergy status to other drugs, medicaments and biological substances; Z91.09 Other allergy status, other than to drugs and biological substances; Z91.013 Allergy to seafood; Z91.040 Latex allergy status; Z87.891 Personal history of nicotine dependence

== ENCOUNTER → 2019-02-20 | Outpatient (CLI) | payer OTHER ==
[~2019-02-20] MED LIST changes: -TRAZ-160 PO; +TRAZ-252 PO
--- NOTE | 2019-03-01 23:03 | ECWPNPC ---
PATIENT NAME: DELIA BLOUNT : 1960 GENDER: FEMALE VISIT DATE: 02/20/2019 DISCHARGE DATE: 02/20/19 1632 VISIT LOCKED DATE TIME: PHYSICIAN: GILBERTO MEDINA MD RESOURCE: GILBERTO MEDINA MD REASON FOR APPOINTMENT 1. FOLLOW UP WC NECK HISTORY OF PRESENT ILLNESS HISTORY OF PRESENT ILLNESS: PAIN THE PATIENT DESCRIBES THE PAIN... 58 YEAR OLD FEMALE PATIENT WITH A HISTORY OF CHRONIC NECK PAIN. THE PATIENT DESCRIBES THE PAIN ACHING, BURNING, SORE, TENDER, CONTINUOUS, DAILY, AND SOMETIMES WITH SHARP, STABBING, AND SHOOTING PAIN WITH A PAIN SCORE OF 5-8/10 DEPENDING ON PHYSICAL ACTIVITY. 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 THE PATIENT STATES SHE HAD NECK SURGERY DONE TWICE, BUT THE PAIN, SPASMS, AND HEADACHES STILL PERSIST. THE PATIENT SAYS SHE IS CURRENTLY USING CYMBALTA, LYRICA, TRAMADOL, AND CYCLOBENZAPRINE AND IT IS HELPING SOME FOR HER PAIN AND SPASTICITY. PATIENT DENIES UNEXPLAINABLE WEIGHT LOSS, FEVER, CHILLS, NEW CHANGES ON HER URINARY OR BOWEL CONTROL. FALL RISK SCREENING: SCREENING :NO FALLS REPORTED IN THE LAST YEAR CURRENT MEDICATIONS TAKING LYRICA 150 MG CAPSULE 1 CAPSULE ORALLY TWICE DAILY TAKING TRAMADOL HCL 50 MG TABLET 1 TAB ORALLY EVERY 6 HOURS NEEDED PAIN MDD=4 TAKING CYCLOBENZAPRINE HCL 10 MG TABLET 1 TABLET ORALLY FOR SPSMS AND PAIN THREE TIMES A DAY NEEDED MDD3 TAKING CYMBALTA 30 MG CAPSULE DELAYED RELEASE PARTICLES 1 CAPSULE ORALLY ONCE A DAY FOR PAIN TAKING ALBUTEROL SULFATE HFA 108 (90 BASE) MCG/ACT AEROSOL SOLUTION 2 PUFFS NEEDED INHALATION EVERY 4 HRS, NOTES: NEEDS REFILL TAKING OMEGA 3 1000 MG CAPSULE 1 CAPSULE ORALLY ONCE A DAY TAKING LUTEIN VISION BLEND CAPSULE ORALLY TAKING VITAMIN D3 5000 UNITS CAPSULE 1 CAPSULE ORALLY EVERY 3 DAYS TAKING MEDICAL COMPRESSION STOCKINGS - MISCELLANEOUS DIRECTED TOPICALLY DAILY; ICD10: R60.0 TAKING VITAMIN B12 1000 MCG TABLET EXTENDED RELEASE 1 TABLET ORALLY ONCE A DAY TAKING ESTRACE 0.1 MG/GM CREAM 0.5 GM VAGINAL TWICE A WEEK TAKING BENADRYL 25 MG TABLET 1 TABLET ORALLY DAILY BEFORE BEDTIME TAKING COLACE 100 MG CAPSULE 1 CAPSULE NEEDED ORALLY ONCE A DAY TAKING ESTRACE 0.5 MG TABLET 1 TABLET ORALLY ONCE DAILY TAKING LOPERAMIDE HCL 2 MG CAPSULE 2 CAPSULE NEEDED ORALLY FOUR TIMES A DAY NEEDED (MDD 8 TABS) TAKING CHOLESTYRAMINE 4 GM/DOSE POWDER 1 SCOOP ORALLY TWICE A DAY TAKING ACYCLOVIR 400 MG TABLET 1 TABLET ORALLY TWICE A DAY NEEDED TAKING PROTONIX 40 MG TAB 1 TAB ORALLY TWICE DAILY TAKING DICYCLOMINE HCL 20 MG TABLET 1 TABLET ORALLY FOUR TIMES A DAY NOT-TAKING ZANTAC 150 MG TABLET 1 TABLET ORALLY BID NOT-TAKING CHERATUSSIN AC 100-10 MG/5ML SYRUP 5 ML ORALLY TWICE DAILY NEEDED NOT-TAKING ZOFRAN 8 MG TABLET 1 TABLET ORALLY TWICE A DAY NOT-TAKING [id number]-BWNY-COBSESDL 50-325-40 MG TABLET 1 TABLET NEEDED ORALLY EVERY 4 HRS NOT-TAKING METOPROLOL SUCCINATE 25 MG CAPSULE ER 24 HOUR SPRINKLE 1 CAPSULE ORALLY ONCE A DAY FOR MIGRAINE PROPHYLAXIS NOT-TAKING ACYCLOVIR 800 MG TABLET 1 TABLET ORALLY TWICE A DAY NOT-TAKING ZOFRAN 4 MG TABLET 1 TABLETS ORALLY FOR NAUSEAS EVERY 6 HOURS NEEDED MDD3 NOT-TAKING CROMOLYN SODIUM 4 % SOLUTION 1 DROP INTO AFFECTED EYE OPHTHALMIC FOUR TIMES A DAY NOT-TAKING SUMATRIPTAN SUCCINATE 100 MG TABLET 1 TABLET NEEDED ONE TIME ORALLY TAKE BID PRN MAIGRAINE. MDD=2. MAX 10 MIGRAINE DAY SPER MO, NOTES: STOPPED TAKING MED PER PAIN CENTER TOLD HER MEDICATION LIST REVIEWED AND RECONCILED WITH THE PATIENT PAST MEDICAL HISTORY ESOPHAGEAL REFLUX ASTHMA MIGRAINE HEADACHE ARTHRITIS ABNORMAL PAP SMEAR/SEVERAL JOEL 3 W/CRYO (DR. 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 PATH REPORT: FRAGMENTS OF COLONIC MUCOSA WITH INCREASED LYMPHOPLASMA INFILTRATES OF LAMINA PROPRIA 01/2014 ANTERIOR CERVICAL DISCECTOMY AND FUSION (ACDF) BY DR. NUSRAT THOMPSON [facility] 06/04/15 LEFT CTS RELEASE 09/13/17 FAMILY HISTORY FATHER: ALIVE MOTHER: , ANEURYSM, OSTEOPOROSIS SIBLINGS: ALIVE, HEART DISEASE SON(S): ALIVE 1 BROTHER(S) , 2 SISTER(S) - HEALTHY. 2 SON(S) - HEALTHY. SOCIAL HISTORY GENERAL: TOBACCO USE ARE YOU A:FORMER SMOKER HOW LONG HAS IT BEEN SINCE YOU LAST SMOKED?5-10 YEARS HIV / HEP-C SCREENING HIV TEST OFFERED TO PATIENT:YES DATE OFFERED:10/25/2017 HEP-C TEST OFFERED TO PATIENT:YES DATE OFFERED:10/25/2017 BROCHURE PROVIDED TO PATIENTNO OTHERS AT HOME: BOYFRIEND. EDUCATION LEVEL OF EDUCATION:HIGH SCHOOL DIET: REGULAR. LANGUAGE LANGUAGES SPOKEN:DIVEHI OTHER-GERMAN DOMESTIC VIOLENCE STATUS:SINGLE RECREATIONAL DRUG USE DRUG USE?NO EXERCISE: NO REGULAR EXERCISE. LEARNING BARRIERS / SPECIAL NEEDS CHANGE FROM LAST VISIT?NO BARRIERS TO LEARNING?NO HEARING IMPAIRED?NO VISION IMPAIRED?YES COGNITIVELY IMPAIRED?NO :CORRECTIVE LENSES READINESS TO LEARN?YES LEARNING PREFERENCES?NO LEARNING CAPABILITIES PRESENT?YES EMOTIONAL BARRIERS?NO SPECIAL DEVICES?NO DIRECTOR OF BUSINESS SERVICES NEEDED?NO PAIN CLINIC PFS, CLERGY, PUBLIC HEALTH REFERRALS PFS REFERRAL NEEDED?NO CLERGY REFERRAL NEEDED?NO PUBLIC HEALTH REFERRAL NEEDED?NO WAS THE PROVIDER NOTIFIED OF ANY PERTINENT INFO?YES HAS THE PATIENT BEEN EDUCATED REGARDING HIS/HER PLAN OF CARE?YES HAS THE PATIENT BEEN EDUCATED REGARDING PAIN, THE RISK FOR PAIN, THE IMPORTANCE OF EFFECTIVE PAIN MANAGEMENT, AND THE PAIN ASSESSMENT PROCESS?YES LATEX QUESTIONNAIRE LATEX ALLERGY : HAVE YOU EVER DEVELOPED ANY TYPE OF REACTION AFTER HANDLING LATEX PRODUCTS SUCH RUBBER GLOVES, CONDOMS, DIAPHRAGMS, BALLOONS, SOCKS, OR UNDERWEAR?NO LATEX ALLERGY : HAVE YOU EVER DEVELOPED ANY TYPE OF REACTION DURING OR AFTER DENTAL APPOINTMENT, VAGINAL/RECTAL EXAMINATION, SURGICAL PROCEDURE, OR ANY OTHER EXPOSURE?YES - PLEASE INDICATE :SURGICAL PROCEDURE DATE ASKED : 01/07/2019 LATEX RISK : HAVE YOU EVER HAD ANY DIFFICULTY BREATHING OR HIVES AFTER EATING OR HANDLING ANY FRUITS, OR VEGETABLES; SUCH KIWI, BANANAS, STONE FRUITS, OR CHESTNUTSNO LATEX RISK : DO YOU HAVE A PREVIOUS PERSONAL HISTORY OF MORE THAN NINE SURGERIES, SPINA BIFIDA, OR REPEATED CATHERTIZATIONS? YES - PLEASE INDICATE : > 9 SURGERIES LATEX RISK : ARE YOU FREQUENTLY EXPOSED TO LATEX PRODUCTS IN YOUR OCCUPATION?NO CAFFEINE CAFFEINE USE?NO ADVANCE DIRECTIVE ADVANCE DIRECTIVE DISCUSSED WITH PATIENT:YES PATIENT DECLINED HCP INFORMATION AND DECLINED ASSISTANCE WITH PAPERWORK. FAITH [id number] MUSLIM MARITAL STATUS: .. ALCOHOL SCREENING DID YOU HAVE A DRINK CONTAINING ALCOHOL IN THE PAST YEAR?NO POINTS0 INTERPRETATIONNEGATIVE OCCUPATION: UNEMPLOYED. SEXUAL HX HAD SEX IN THE LAST 12 MONTHS (VAGINAL, ORAL, OR ANAL)?NO USED TO SMOKE FOR OVER 20 YRS ON/OFF WITH 3 CIGS/DAYREVIEWED WITH PATIENT 11/22/18 1447 JSREVIEWED WITH PATIENT 02/20/19 1545 JS. HOSPITALIZATION/MAJOR DIAGNOSTIC PROCEDURE ACDF SURGERY, [facility] 92/15-06/07/15 C-DIFF 08/14/17-08/18/17 REVIEW OF SYSTEMS REVIEWED BY: PROVIDER: GILBERTO MEDINA MD . CONSTITUTIONAL: ANY CHANGE IN YOUR MEDICAL CONDITION? NO . CHILLS NO . FEVER NO . INFECTION: DO YOU HAVE NEW INFECTIONS? NO . DO YOU HAVE HISTORY OF MRSA? NO . MUSCULOSKELETAL: ANY NEW PATTERNS OF PAIN OR NUMBNESS? YES, STATES A LOT OF SPASMS RECENTLY, STARTED APPROX 10 DAYS AGO. STATES SHE IS HAVING DIFFICULTY SLEEPING AND HAVING MORE HEADACHES/MIGRAINES . GASTROENTEROLOGY: ANY NEW CHANGE IN BOWEL CONTROL? YES, STATES DIARRHEA, CHRONIC AND NOT IMPROVING . GENITOURINARY: ANY NEW CHANGE IN BLADDER CONTROL? YES, STATES URINARY URGENCY . IS THERE A CHANCE YOU COULD BE ? NO . HEMATOLOGY/LYMPH: DO YOU TAKE ANY BLOOD THINNERS? (FOR EXAMPLE- COUMADIN, PLAVIX, AGGRENOX, PLATEL, PRADAXA, OR XARELTO) NO . WHEN WAS YOUR LAST DOSE? DATE: TIME: . NEUROLOGY: HAVE YOU FALLEN IN THE PAST 12 MONTHS? NO . ANY NEW EXTREMITY NUMBNESS OR WEAKNESS? NO . CARDIOLOGY: DO YOU HAVE A PACEMAKER OR DEFIBRILLATOR? NO . RESPIRATORY: HAVE YOU BEEN SICK IN THE PAST WEEK? NO . FEVER NO . FLU LIKE SYMPTOMS? NO . COUGH NO . INTEGUMENTARY: DO YOU HAVE ANY RASHES OR OPEN SORES? NO . ALLERGIC/IMMUNO: ARE YOU ALLERGIC TO IV DYE? NO . ANY NEW ALLERGIES? NO . PSYCHIATRIC: DO YOU HAVE THOUGHTS OF HURTING YOURSELF OR SOMEONE ELSE? NO . ARE YOU ABUSED, NEGLECTED, OR IN AN UNSAFE ENVIRONMENT? NO . ENDOCRINOLOGY: ARE YOU DIABETIC? NO . OTHER: DO YOU NEED ANY PRESCRIPTIONS? YES . IF YES, PLEASE LIST: ____LYRICA, TRAMADOL, CYCLOBENZAPRINE, DULOXETINE - WOULD LIKE THE SCRIPTS SENT TO [facility] ON [address] - NEEDS TO STATE THAT IT IS THROUGH WORKER'S COMP . ANY NEW PROBLEMS WITH YOUR MEDICATIONS? NO . WHEN DID YOU LAST EAT? ____ . WHEN DID YOU LAST DRINK? ____ . WHAT DID YOU LAST DRINK? ____ . NAME OF PERSON DRIVING YOU HOME? ____ . DO YOU HAVE ANY OTHER QUESTIONS OR CONCERNS YES, STATES SHE WOULD LIKE ANOTHER INJECTION, STATES THE FACET BLOCK WORKED WELL LAST TIME . VITAL SIGNS WT 173 LBS, HT 60 IN, BMI 33.78 INDEX, BP 118/71 MM HG, HR 67 /MIN, RR 18 /MIN, TEMP 97.3 F, OXYGEN SAT % 96%, SAFE IN ENV? (Y/N) YES, NA INITIALS SC 15:30, REVIEWED BY: WILDER. EXAMINATION GENERAL EXAMINATION: PATIENT IS ALERT O X 3 AND COOPERATIVE. TENDERNESS ON BOTH SIDES OF THE NECK. PRESENCE OF BANDS OF TISSUE AND TRIGGER POINTS WITH RESTRICTION OF MOVEMENT OF THE NECK. MRI OF THE CERVICAL SPINE DONE ON 06/08/2014 SHOWS FACET ARTHROPATHY CHANGES. 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 BLOUNT'S PAIN MANAGEMENT CASE. DUE TO THE TRIGGER POINTS, BANDS OF TISSUE, AND RESTRICTION OF MOVEMENT, I WOULD LIKE TO MOVE FORWARD WITH A NECK TRIGGER POINT INJECTION AT THIS TIME. WE DISCUSSED THE BENEFITS, RISKS, AND ALTERNATIVES OF THE INJECTION AND THE PATIENT WOULD LIKE TO PROCEED. THE PATIENT WILL CONTINUE WITH HER CURRENT MEDICATION REGIMEN THAT IS HELPING TO CONTROL HER PAIN. I REFILLED HER MEDICATION AND DECREASED FLEXERIL FROM 80 TO 75 TABLETS FOR THE MONTH. THE PATIENT BROUGHT HER MEDICATION TO TODAY'S VISIT. UTOX WILL BE PERFORMED TODAY. THE PATIENT WILL FOLLOW UP IN 3 MONTHS, BUT WAS ADVISED TO CALL IF SHE NEEDS TO BE SEEN SOONER. INSTRUCTIONS WERE GIVEN, QUESTIONS WERE ANSWERED, PATIENT REPORTS UNDERSTANDING AND AGREES WITH THE PLAN. I, HEATH DALY, DOCUMENTED THE ABOVE INFORMATION ACTING A SCRIBE FOR DR. MEDINA. I HAVE REVIEWED THE ABOVE DOCUMENT, WRITTEN BY HEATH SAMIBaLrry AND I VERIFY THAT IT IS ACCURATE. . 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 YES ARE THE PATIENT'S COMPLAINTS CONSISTENT WITH HIS/HER HISTORY OF THE INJURY/ILLNESS? YES IS THE PATIENT'S HISTORY OF THE INJURY/ILLNESS CONSISTENT WITH YOUR OBJECTIVE FINDING? YES WHAT IS THE PERCENTAGE OF TEMPORARY IMPAIRMENT? TOTAL = 100% IS THE PATIENT WORKING? NO DOCTOR ON SITE: GILBERTO ESCOBAR MD PROCEDURE CODES FA211 ESTABILISHED PATIENT [facility] CHARGE G8427 CURRENT MEDS W/DOSAGES DOCUMENTED G8730 PAIN ASSESS POS TOOL F/U PLAN DOC DISPOSITION & COMMUNICATION FOLLOW UP 3 MONTHS (REASON: TPI & MEDS) ELECTRONICALLY SIGNED BY GILBERTO MEDINA MD, MD ON 03/01/2019 AT 06:26 PM EDT DISCLAIMER : THIS IS A VISIT SUMMARY EXTRACTED FROM THE [employer] CHART. IT IS NOT A COPY OF THE [employer] PROGRESS NOTE. MARY
== END ==
LOC: M PAIN 15:30
PROVIDERS: ATTEND Anesthesiology
DX: M79.18 Myalgia, other site (principal); M47.812 Spondylosis without myelopathy or radiculopathy, cervical region; M96.1 Postlaminectomy syndrome, not elsewhere classified; K21.9 Gastro-esophageal reflux disease without esophagitis; J45.909 Unspecified asthma, uncomplicated; G43.909 Migraine, unspecified, not intractable, without status migrainosus; Z86.59 Personal history of other mental and behavioral disorders; M79.7 Fibromyalgia; Z87.891 Personal history of nicotine dependence; Z88.1 Allergy status to other antibiotic agents; Z88.8 Allergy status to other drugs, medicaments and biological substances; Z91.013 Allergy to seafood; Z91.040 Latex allergy status; Z79.899 Other long term (current) drug therapy

== ENCOUNTER → 2019-02-25 | Outpatient (CLI) | payer OTHER ==
[2019-02-25 12:45] LABS: CHOLESTEROL RISK RATIO 2.524 (<5)
[2019-03-01 01:34] LABS: IgA ULTRASENSITIVE 98.3 mg/dL (72-321); TISSUE TRANSGLUTAMINASE IgA <2 U/mL (0-3)
== END ==
LOC: M LAB 11:28
PROVIDERS: ATTEND Student in an Organized Health Care Education/Training Program
DX: K52.9 Noninfective gastroenteritis and colitis, unspecified (principal); R73.9 Hyperglycemia, unspecified; Z13.220 Encounter for screening for lipoid disorders

== ENCOUNTER → 2019-04-15 | Outpatient (CLI) | payer OTHER ==
[~2019-04-15] MED LIST changes: -DULO1CAP PO; +DULO1CAP4 PO
[2019-04-15 15:38] LABS: BASO % 0.4 % (0.0-1.0); EOS # 0.1 10^3/uL (0.0-0.50); EOS % 1.2 % (0.0-3.0); HEMATOCRIT 40.4 % (36.0-47.0); LYMPH # 1.9 10^3/uL (1.5-4.5); LYMPH % 38.3 % (24.0-44.0); MEAN CORPUSCULAR HEMOGLOBIN 29.8 pg (27.0-33.0); MEAN CORPUSCULAR HGB CONC 32.2 g/dl (32.0-36.5); MEAN CORPUSCULAR VOLUME 92.7 fl (80.0-96.0); MONO # 0.4 10^3/uL (0.0-0.8); MONO % 7.5 % (0.0-5.0); NEUTROPHILS # 2.7 10^3/uL (1.8-7.7); NEUTROPHILS % 52.4 % (36.0-66.0); PLATELET COUNT, AUTOMATED 244 10^3/uL (150-450); RED BLOOD COUNT 4.36 10^6/uL (4.00-5.40); WHITE BLOOD COUNT 5.1 10^3/uL (4.0-10.0)
[2019-04-15 15:56] LABS: ALBUMIN 3.2 GM/DL (3.2-5.2); ALT/SGPT 31 U/L (12-78); BILIRUBIN,DIRECT 0.1 MG/DL (0.0-0.2); BILIRUBIN,TOTAL 0.2 MG/DL (0.2-1.0); BLOOD UREA NITROGEN 11 MG/DL (7-18); CALCIUM LEVEL 8.9 MG/DL (8.5-10.1); CARBON DIOXIDE LEVEL 28 MEQ/L (21-32); CHLORIDE LEVEL 106 MEQ/L (98-107); CREATININE FOR GFR 0.62 MG/DL (0.55-1.30); GLOMERULAR FILTRATION RATE > 60.0 (>51); GLUCOSE, FASTING 93 MG/DL (70-100); POTASSIUM SERUM 4.3 MEQ/L (3.5-5.1); SODIUM LEVEL 140 MEQ/L (136-145); TOTAL PROTEIN 6.2 GM/DL (6.4-8.2)
--- NOTE | 2019-04-16 02:54 | REP ---
Clinical: Abdominal pain and diarrhea. Technique: Two supine views of the abdomen and pelvis. Findings: Bowel gas pattern is nonspecific. Evidence of prior cholecystectomy. No organomegaly. No abnormal calcifications. Skeletal structures are intact. Impression: Nonspecific bowel pattern. Electronically Signed by Donte Everett MD 04/16/2019 02:45 A
== END ==
LOC: M LAB 14:34
PROVIDERS: ATTEND Internal Medicine Gastroenterology
DX: R19.7 Diarrhea, unspecified (principal)

== ENCOUNTER → 2019-04-16 | Outpatient (REF) | payer OTHER | LOC: M LAB REF 12:29 | PROVIDERS: ATTEND Internal Medicine Gastroenterology | DX: R19.7 Diarrhea, unspecified (principal) ==

== ENCOUNTER → 2019-05-20 | Outpatient (CLI) | payer OTHER ==
[2019-05-20 17:17] LABS: C REACTIVE PROTEIN QUANTITATIV < 0.30 MG/DL (0.00-0.30); RHEUMATOID FACTOR QUANT < 10.0 IU/ML (<15.0)
--- NOTE | 2019-05-20 19:29 | REP ---
BILATERAL HAND SERIES: Four views of each hand are performed. There is no acute fracture or dislocation. On the left there is mild joint space narrowing and subchondral sclerosis at the joint between the scaphoid and trapezium. There is mild narrowing of the first interphalangeal joint. On the right there is mild radiocarpal joint space narrowing. Other joint spaces appear unremarkable. IMPRESSION: Minimal bilateral degenerative changes. Electronically Signed by Jamie Smith MD 05/21/2019 05:02 P
== END ==
LOC: M LAB 16:12
PROVIDERS: ATTEND Student in an Organized Health Care Education/Training Program
DX: M25.542 Pain in joints of left hand (principal)

== ENCOUNTER → 2019-05-22 | Outpatient (CLI) | payer OTHER ==
[~2019-05-22] MED LIST changes: +BUPIVACAINE HCL 0.25% 10 ML VIAL As Ordered ONE; +BUPIVACAINE HCL 0.25% 30 ML VIAL As Ordered ONE; +TRIAMCINOLONE ACETONIDE SUSP 40 MG/ML VIAL (J3301) As Ordered ONE
--- NOTE | 2019-05-31 01:16 | ECWPNPC ---
PATIENT NAME: DELIA BLOUNT : 1960 GENDER: FEMALE VISIT DATE: 05/22/2019 DISCHARGE DATE: 05/22/19 1201 VISIT LOCKED DATE TIME: PHYSICIAN: GILBERTO MEDINA MD RESOURCE: GILBERTO MEDINA MD REASON FOR APPOINTMENT 1. W/C NECK/SHOULDER TPI HISTORY OF PRESENT ILLNESS HISTORY OF PRESENT ILLNESS: PAIN THE PATIENT DESCRIBES THE PAIN... FALL RISK SCREENING: SCREENING :NO FALLS REPORTED IN THE LAST YEAR CURRENT MEDICATIONS TAKING ALBUTEROL SULFATE HFA 108 (90 BASE) MCG/ACT AEROSOL SOLUTION 2 PUFFS NEEDED INHALATION EVERY 4 HRS, NOTES: NEEDS REFILL TAKING OMEGA 3 1000 MG CAPSULE 1 CAPSULE ORALLY ONCE A DAY TAKING LUTEIN VISION BLEND CAPSULE ORALLY TAKING VITAMIN D3 5000 UNITS CAPSULE 1 CAPSULE ORALLY EVERY 3 DAYS, NOTES: ONCE A WEEK TAKING MEDICAL COMPRESSION STOCKINGS - MISCELLANEOUS DIRECTED TOPICALLY DAILY; ICD10: R60.0 TAKING VITAMIN B12 1000 MCG TABLET EXTENDED RELEASE 1 TABLET ORALLY ONCE A DAY TAKING BENADRYL 25 MG TABLET 1 TABLET ORALLY DAILY BEFORE BEDTIME, NOTES: ONCE IN A WHILE; TAKING ESTRACE 0.5 MG TABLET 1 TABLET ORALLY ONCE DAILY TAKING ESTRACE 1 MG TABLET TAKE ONE TABLET BY MOUTH EVERY DAY TAKING RANITIDINE HCL 150 MG TABLET 1 TABLET AT BEDTIME ORALLY ONCE A DAY TAKING LACTOBACILLUS - TABLET DIRECTED ORALLY TID TAKING ACYCLOVIR 800 MG TABLET 1 TABLET ORALLY TWICE A DAY TAKING FLORANEX - PACKET 1 PACKET ORALLY DAILY TAKING LOPERAMIDE HCL 2 MG CAPSULE 2 CAPSULE NEEDED ORALLY FOUR TIMES A DAY NEEDED (MDD 8 TABS) TAKING CHOLESTYRAMINE 4 GM/DOSE POWDER 1 SCOOP ORALLY TWICE A DAY TAKING CYCLOBENZAPRINE HCL 10 MG TABLET 1 TABLET ORALLY FOR SPSMS AND PAIN THREE TIMES A DAY NEEDED MDD3 TAKING CYMBALTA 30 MG CAPSULE DELAYED RELEASE PARTICLES 1 CAPSULE ORALLY ONCE A DAY FOR PAIN TAKING LYRICA 150 MG CAPSULE 1 CAPSULE ORALLY TWICE DAILY TAKING TRAMADOL HCL 50 MG TABLET 1 TAB ORALLY EVERY 6 HOURS NEEDED PAIN MDD=4 TAKING PROTONIX 40 MG TAB 1 TAB ORALLY TWICE DAILY TAKING PANTOPRAZOLE SODIUM 40 MG TABLET DELAYED RELEASE TAKE ONE TABLET BY MOUTH TWICE A DAY TAKING ESTRACE 0.1 MG/GM CREAM 0.5 GM VAGINAL TWICE A WEEK TAKING FLUTICASONE PROPIONATE HFA 110 MCG/ACT AEROSOL 1 PUFF INHALATION TWICE A DAY NOT-TAKING COLACE 100 MG CAPSULE 1 CAPSULE NEEDED ORALLY ONCE A DAY NOT-TAKING SIMETHICONE 80 MG TABLET CHEWABLE 1 TABLET AFTER MEALS AND AT BEDTIME NEEDED ORALLY FOUR TIMES A DAY NOT-TAKING ACYCLOVIR 400 MG TABLET 1 TABLET ORALLY TWICE A DAY NEEDED NOT-TAKING DICYCLOMINE HCL 20 MG TABLET 1 TABLET ORALLY FOUR TIMES A DAY NOT-TAKING ZANTAC 150 MG TABLET 1 TABLET ORALLY BID NOT-TAKING CHERATUSSIN AC 100-10 MG/5ML SYRUP 5 ML ORALLY TWICE DAILY NEEDED NOT-TAKING ZOFRAN 8 MG TABLET 1 TABLET ORALLY TWICE A DAY NOT-TAKING [id number] 50-325-40 MG TABLET 1 TABLET NEEDED ORALLY EVERY 4 HRS NOT-TAKING METOPROLOL SUCCINATE 25 MG CAPSULE ER 24 HOUR SPRINKLE 1 CAPSULE ORALLY ONCE A DAY FOR MIGRAINE PROPHYLAXIS NOT-TAKING ZOFRAN 4 MG TABLET 1 TABLETS ORALLY FOR NAUSEAS EVERY 6 HOURS NEEDED MDD3 NOT-TAKING CROMOLYN SODIUM 4 % SOLUTION 1 DROP INTO AFFECTED EYE OPHTHALMIC FOUR TIMES A DAY NOT-TAKING SUMATRIPTAN SUCCINATE 100 MG TABLET 1 TABLET NEEDED ONE TIME ORALLY TAKE BID PRN MAIGRAINE. MDD=2. MAX 10 MIGRAINE DAY SPER MO, NOTES: STOPPED TAKING MED PER PAIN CENTER TOLD HER MEDICATION LIST REVIEWED AND RECONCILED WITH THE PATIENT PAST MEDICAL HISTORY ESOPHAGEAL REFLUX ASTHMA MIGRAINE HEADACHE ARTHRITIS ABNORMAL PAP SMEAR/SEVERAL JOEL 3 W/[facility] (DR. 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 PATH REPORT: FRAGMENTS OF COLONIC MUCOSA WITH INCREASED LYMPHOPLASMA INFILTRATES OF LAMINA PROPRIA 01/2014 ANTERIOR CERVICAL DISCECTOMY AND FUSION (ACDF) BY DR. NUSRAT THOMPSON, [facility] 06/04/15 LEFT CTS RELEASE 09/13/17 FAMILY HISTORY FATHER: ALIVE MOTHER: , ANEURYSM, OSTEOPOROSIS SIBLINGS: ALIVE, HEART DISEASE SON(S): ALIVE 1 BROTHER(S) , 2 SISTER(S) - HEALTHY. 2 SON(S) - HEALTHY. SOCIAL HISTORY GENERAL: TOBACCO USE ARE YOU A:FORMER SMOKER HOW LONG HAS IT BEEN SINCE YOU LAST SMOKED?5-10 YEARS HIV / HEP-C SCREENING HIV TEST OFFERED TO PATIENT:YES DATE OFFERED:10/25/2017 HEP-C TEST OFFERED TO PATIENT:YES DATE OFFERED:10/25/2017 BROCHURE PROVIDED TO PATIENTNO OTHERS AT HOME: BOYFRIEND. EDUCATION LEVEL OF EDUCATION:HIGH SCHOOL DIET: REGULAR. LANGUAGE LANGUAGES SPOKEN:YORUBA OTHER-ENGLISH DOMESTIC VIOLENCE STATUS:SINGLE RECREATIONAL DRUG USE DRUG USE?NO EXERCISE: NO REGULAR EXERCISE. LEARNING BARRIERS / SPECIAL NEEDS CHANGE FROM LAST VISIT?NO BARRIERS TO LEARNING?NO HEARING IMPAIRED?NO VISION IMPAIRED?YES COGNITIVELY IMPAIRED?NO :CORRECTIVE LENSES READINESS TO LEARN?YES LEARNING PREFERENCES?NO LEARNING CAPABILITIES PRESENT?YES EMOTIONAL BARRIERS?NO SPECIAL DEVICES?NO CRYSTAL EVALUATOR NEEDED?NO PAIN CLINIC PFS, CLERGY, PUBLIC HEALTH REFERRALS PFS REFERRAL NEEDED?NO CLERGY REFERRAL NEEDED?NO PUBLIC HEALTH REFERRAL NEEDED?NO WAS THE PROVIDER NOTIFIED OF ANY PERTINENT INFO?YES HAS THE PATIENT BEEN EDUCATED REGARDING HIS/HER PLAN OF CARE?YES HAS THE PATIENT BEEN EDUCATED REGARDING PAIN, THE RISK FOR PAIN, THE IMPORTANCE OF EFFECTIVE PAIN MANAGEMENT, AND THE PAIN ASSESSMENT PROCESS?YES LATEX QUESTIONNAIRE LATEX ALLERGY : HAVE YOU EVER DEVELOPED ANY TYPE OF REACTION AFTER HANDLING LATEX PRODUCTS SUCH RUBBER GLOVES, CONDOMS, DIAPHRAGMS, BALLOONS, SOCKS, OR UNDERWEAR?NO LATEX ALLERGY : HAVE YOU EVER DEVELOPED ANY TYPE OF REACTION DURING OR AFTER DENTAL APPOINTMENT, VAGINAL/RECTAL EXAMINATION, SURGICAL PROCEDURE, OR ANY OTHER EXPOSURE?YES - PLEASE INDICATE :SURGICAL PROCEDURE LATEX RISK : HAVE YOU EVER HAD ANY DIFFICULTY BREATHING OR HIVES AFTER EATING OR HANDLING ANY FRUITS, OR VEGETABLES; SUCH KIWI, BANANAS, STONE FRUITS, OR CHESTNUTSNO LATEX RISK : DO YOU HAVE A PREVIOUS PERSONAL HISTORY OF MORE THAN NINE SURGERIES, SPINA BIFIDA, OR REPEATED CATHERIZATIONS? YES - PLEASE INDICATE : > 9 SURGERIES LATEX RISK : ARE YOU FREQUENTLY EXPOSED TO LATEX PRODUCTS IN YOUR OCCUPATION?NO DATE ASKED : 05/22/2019 CAFFEINE CAFFEINE USE?NO ADVANCE DIRECTIVE ADVANCE DIRECTIVE DISCUSSED WITH PATIENT:YES PATIENT DECLINED HCP INFORMATION AND DECLINED ASSISTANCE WITH PAPERWORK. MORMONISM [id number] MOSQUE MARITAL STATUS: .. ALCOHOL SCREENING DID YOU HAVE A DRINK CONTAINING ALCOHOL IN THE PAST YEAR?NO POINTS0 INTERPRETATIONNEGATIVE OCCUPATION: UNEMPLOYED. SEXUAL HX HAD SEX IN THE LAST 12 MONTHS (VAGINAL, ORAL, OR ANAL)?NO USED TO SMOKE FOR OVER 20 YRS ON/OFF WITH 3 CIGS/DAYREVIEWED WITH PATIENT 11/22/18 1447 JSREVIEWED WITH PATIENT 02/20/19 1545 JS. HOSPITALIZATION/MAJOR DIAGNOSTIC PROCEDURE ACDF SURGERY, [facility] 92/15-06/07/15 C-DIFF 08/14/17-08/18/17 REVIEW OF SYSTEMS REVIEWED BY: PROVIDER: . CONSTITUTIONAL: ANY CHANGE IN YOUR MEDICAL CONDITION? NO . CHILLS NO . FEVER NO . INFECTION: DO YOU HAVE NEW INFECTIONS? NO . DO YOU HAVE HISTORY OF MRSA? NO . MUSCULOSKELETAL: ANY NEW PATTERNS OF PAIN OR NUMBNESS? YES, PAIN IN RIGHT HAND, THROBBING . GASTROENTEROLOGY: ANY NEW CHANGE IN BOWEL CONTROL? NO . GENITOURINARY: ANY NEW CHANGE IN BLADDER CONTROL? NO . IS THERE A CHANCE YOU COULD BE ? NO . HEMATOLOGY/LYMPH: DO YOU TAKE ANY BLOOD THINNERS? (FOR EXAMPLE- COUMADIN, PLAVIX, AGGRENOX, PLATEL, PRADAXA, OR XARELTO) NO . WHEN WAS YOUR LAST DOSE? DATE: TIME: . NEUROLOGY: HAVE YOU FALLEN IN THE PAST 12 MONTHS? NO . ANY NEW EXTREMITY NUMBNESS OR WEAKNESS? NO . CARDIOLOGY: DO YOU HAVE A PACEMAKER OR DEFIBRILLATOR? NO . RESPIRATORY: HAVE YOU BEEN SICK IN THE PAST WEEK? NO . FEVER NO . FLU LIKE SYMPTOMS? NO . COUGH NO . INTEGUMENTARY: DO YOU HAVE ANY RASHES OR OPEN SORES? NO . ALLERGIC/IMMUNO: ARE YOU ALLERGIC TO IV DYE? NO . ANY NEW ALLERGIES? NO . PSYCHIATRIC: DO YOU HAVE THOUGHTS OF HURTING YOURSELF OR SOMEONE ELSE? NO . ARE YOU ABUSED, NEGLECTED, OR IN AN UNSAFE ENVIRONMENT? NO . ENDOCRINOLOGY: ARE YOU DIABETIC? NO . OTHER: DO YOU NEED ANY PRESCRIPTIONS? LYRICA 150MG, TRAMADOL 50MG, PT STATES SHE WILL CALL REFILL TELEPHONE NUMBER . IF YES, PLEASE LIST: ____ . ANY NEW PROBLEMS WITH YOUR MEDICATIONS? NO . WHEN DID YOU LAST EAT? 05/22 7PM . WHEN DID YOU LAST DRINK? 05/21 10PM . WHAT DID YOU LAST DRINK? WATER . NAME OF PERSON DRIVING YOU HOME? MAXINE . DO YOU HAVE ANY OTHER QUESTIONS OR CONCERNS NO . VITAL SIGNS WT 169.2 LBS, HT 60 IN, BMI 33.04 INDEX, BP 123/63 MM HG, HR 65 /MIN, RR 18 /MIN, TEMP 98.3 F, OXYGEN SAT % 96%, SAFE IN ENV? (Y/N) Y, NA INITIALS OH 10:04, REVIEWED BY: DS. ASSESSMENTS MYALGIA, OTHER SITE - M79.18 (PRIMARY) PROCEDURES PN WORKMANS' COMP OPINION IN YOUR OPINION, WAS THE INCIDENT THAT THE PATIENT DESCRIBED THE COMPETENT MEDICAL CAUSE OF THIS INJURY/ILLNESS? YES ARE THE PATIENT'S COMPLAINTS CONSISTENT WITH HIS/HER HISTORY OF THE INJURY/ILLNESS? YES IS THE PATIENT'S HISTORY OF THE INJURY/ILLNESS CONSISTENT WITH YOUR OBJECTIVE FINDING? YES WHAT IS THE PERCENTAGE OF TEMPORARY IMPAIRMENT? TOTAL = 100% IS THE PATIENT WORKING? NO DOCTOR ON SITE: GILBERTO ESCOBAR MD PN TRIGGER POINT INJECTION WITH STEROIDS PRE PROCEDURE DIAGNOSIS 1. MYALGIA 2. PAIN AT BILATERAL NECK AREA AND BILATERAL SHOULDER AREA. POST PROCEDURE DIAGNOSIS 1. MYALGIA 2. PAIN AT BILATERAL NECK AREA AND BILATERAL SHOULDER AREA. PROCEDURE TRIGGER POINT INJECTION AT RIGHT AND LEFT NECK AREA AND RIGHT AND LEFT SHOULDER AREA. SURGEON DR. GILBERTO MEDINA BRANCH CUSTOMER SERVICE REPRESENTATIVE NONE ANESTHESIA LOCAL PRE PROCEDURE NOTE THE PATIENT HAS A HISTORY OF CHRONIC PAIN AT THE RIGHT AND LEFT NECK AREA AND RIGHT AND LEFT SHOULDER AREA. I EVALUATED THE PATIENT AND REVIEWED THE CHART. THERE IS EVIDENCE OF BANDS OF TISSUE WITH RESTRICTION OF MOVEMENT AND PRESENCE OF TRIGGER POINT AT THE AFFECTED AREA. I WENT OVER THE RISKS, ALTERNATIVES, AND BENEFITS ASSOCIATED WITH THIS PROCEDURE. THE PATIENT WOULD LIKE TO PROCEED AND GIVES CONSENT TO PERFORM THE PROCEDURE. THE PATIENT DENIES UNEXPLAINABLE WEIGHT LOSS, FEVER, CHILLS, OR NEW CHANGES IN URINARY OR BOWEL CONTROL DESCRIPTION OF PROCEDURE THE PATIENT WAS BROUGHT TO THE PROCEDURE ROOM AND PLACED IN THE SITTING POSITION. THE AREA WAS CLEANED WITH ALCOHOL. THE PROCEDURE WAS DONE USING ASEPTIC STERILE TECHNIQUE. I CHECKED LATERALITY AND THE LEVEL WHERE THE PROCEDURE WAS GOING TO BE PERFORMED WITH THE PATIENT AND THE SUPPORTING STAFF AT THE MOMENT OF THE TIME OUT IN THE PROCEDURE ROOM. USING A 25-GAUGE NEEDLE, TRIGGER POINTS WERE INJECTED AT THE RIGHT AND LEFT NECK AREA AND RIGHT AND LEFT SHOULDER AREA WITH A TOTAL OF 40 ML OF BUPIVACAINE 0.25% AND KENALOG 40 MG. THERE WAS NO EVIDENCE OF BLOOD, PARESTHESIA OR CEREBROSPINAL FLUID DURING THE PROCEDURE. THE PATIENT WAS SENT TO THE RECOVERY ROOM. THE PATIENT WAS MOVING THE EXTREMITIES AND DOING WELL. THERE WAS NO COMPLICATION DURING THE PROCEDURE POST PROCEDURE NOTE THE PATIENT WILL BE SEEN IN A FOLLOW UP IN THE NEXT FEW WEEKS. INSTRUCTIONS WERE GIVEN, QUESTIONS WERE ANSWERED, AND THE PATIENT EXPRESSED UNDERSTANDING AND AGREES WITH THE PLAN. I, HEATH DALY, DOCUMENTED THE ABOVE INFORMATION ACTING A SCRIBE FOR DR. MEDINA. I HAVE REVIEWED THE ABOVE DOCUMENT, WRITTEN BY HEATH DALY SCRIBE AND I VERIFY THAT IT IS ACCURATE. PROCEDURE CODES [id number] INJECT TRIGGER POINTS 3/> DISPOSITION & COMMUNICATION FOLLOW UP 3 WEEKS ELECTRONICALLY SIGNED BY GILBERTO MEDINA MD, MD ON 05/30/2019 AT 05:20 PM EDT DISCLAIMER : THIS IS A VISIT SUMMARY EXTRACTED FROM THE [employer] CHART. IT IS NOT A COPY OF THE [employer] PROGRESS NOTE. MARY
== END ==
LOC: M PAIN 09:45
PROVIDERS: ATTEND Anesthesiology
DX: M79.18 Myalgia, other site (principal); K21.9 Gastro-esophageal reflux disease without esophagitis; J45.909 Unspecified asthma, uncomplicated; G43.909 Migraine, unspecified, not intractable, without status migrainosus; M19.90 Unspecified osteoarthritis, unspecified site; A60.09 Herpesviral infection of other urogenital tract; H40.9 Unspecified glaucoma; M47.812 Spondylosis without myelopathy or radiculopathy, cervical region; F32.9 Major depressive disorder, single episode, unspecified; M79.7 Fibromyalgia; M96.1 Postlaminectomy syndrome, not elsewhere classified; N95.2 Postmenopausal atrophic vaginitis; Z79.890 Hormone replacement therapy; Z87.891 Personal history of nicotine dependence; Z98.1 Arthrodesis status; Z90.49 Acquired absence of other specified parts of digestive tract; Z90.710 Acquired absence of both cervix and uterus; Z79.891 Long term (current) use of opiate analgesic; Z79.899 Other long term (current) drug therapy; Z88.1 Allergy status to other antibiotic agents; Z88.8 Allergy status to other drugs, medicaments and biological substances; Z91.030 Bee allergy status
CPT/HCPCS: 20553; J3301

== ENCOUNTER → 2019-06-10 | Outpatient (CLI) | payer OTHER ==
[~2019-06-10] MED LIST changes: -BUPIVACAINE HCL 0.25% 10 ML VIAL As Ordered ONE; -BUPIVACAINE HCL 0.25% 30 ML VIAL As Ordered ONE; -TRIAMCINOLONE ACETONIDE SUSP 40 MG/ML VIAL (J3301) As Ordered ONE
--- NOTE | 2019-06-12 00:08 | ECWPNPC ---
PATIENT NAME: DELIA BLOUNT : 1960 GENDER: FEMALE VISIT DATE: 06/10/2019 DISCHARGE DATE: 06/10/19 1417 VISIT LOCKED DATE TIME: PHYSICIAN: BENIGNO HUGHES RESOURCE: BENIGNO HUGHES REASON FOR APPOINTMENT 1. POST TPI HISTORY OF PRESENT ILLNESS HISTORY OF PRESENT ILLNESS: PAIN THE PATIENT DESCRIBES THE PAIN... 58-YEAR-OLD FEMALE WITH A HX OF CHRONINC NECK AND HEAD PAIN IN FOR POST TPI FOLLOW-UP. SHE RATES HER PAIN PREPROCEDURE AT A 6 OUT OF 10 POST PROCEDURE TO 5 OUT OF 10 AND STATES THAT LASTED FOR APPROXIMATELY 1 WEEK. SHE DOES ADMIT TO AN INCREASE IN MIGRAINE TYPE HEADACHES. SHE RATES HER PAIN CURRENTLY AT A 5-6 OUT OF 10 AND DESCRIBES IT ACHING, SHARP, STABBING, BURNING, SORE, SHOOTING, AND TENDER. 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 THE PATIENT STATES SHE HAD NECK SURGERY DONE TWICE, BUT THE PAIN, SPASMS, AND HEADACHES STILL PERSIST. THE PATIENT SAYS SHE IS CURRENTLY USING CYMBALTA, LYRICA, TRAMADOL, AND CYCLOBENZAPRINE AND IT IS HELPING SOME FOR HER PAIN AND SPASTICITY. FALL RISK SCREENING: SCREENING :NO FALLS REPORTED IN THE LAST YEAR CURRENT MEDICATIONS TAKING ALBUTEROL SULFATE HFA 108 (90 BASE) MCG/ACT AEROSOL SOLUTION 2 PUFFS NEEDED INHALATION EVERY 4 HRS, NOTES: NEEDS REFILL TAKING OMEGA 3 1000 MG CAPSULE 1 CAPSULE ORALLY ONCE A DAY TAKING LUTEIN VISION BLEND CAPSULE ORALLY TAKING VITAMIN D3 5000 UNITS CAPSULE 1 CAPSULE ORALLY EVERY 3 DAYS, NOTES: ONCE A WEEK TAKING MEDICAL COMPRESSION STOCKINGS - MISCELLANEOUS DIRECTED TOPICALLY DAILY; ICD10: R60.0 TAKING VITAMIN B12 1000 MCG TABLET EXTENDED RELEASE 1 TABLET ORALLY ONCE A DAY TAKING BENADRYL 25 MG TABLET 1 TABLET ORALLY DAILY BEFORE BEDTIME, NOTES: ONCE IN A WHILE; TAKING ESTRACE 0.5 MG TABLET 1 TABLET ORALLY ONCE DAILY TAKING ESTRACE 1 MG TABLET TAKE ONE TABLET BY MOUTH EVERY DAY TAKING LACTOBACILLUS - TABLET DIRECTED ORALLY TID TAKING ACYCLOVIR 800 MG TABLET 1 TABLET ORALLY TWICE A DAY TAKING FLORANEX - PACKET 1 PACKET ORALLY DAILY TAKING LOPERAMIDE HCL 2 MG CAPSULE 2 CAPSULE NEEDED ORALLY FOUR TIMES A DAY NEEDED (MDD 8 TABS) TAKING CHOLESTYRAMINE 4 GM/DOSE POWDER 1 SCOOP ORALLY TWICE A DAY TAKING CYCLOBENZAPRINE HCL 10 MG TABLET 1 TABLET ORALLY FOR SPSMS AND PAIN THREE TIMES A DAY NEEDED MDD3 TAKING CYMBALTA 30 MG CAPSULE DELAYED RELEASE PARTICLES 1 CAPSULE ORALLY ONCE A DAY FOR PAIN TAKING PROTONIX 40 MG TAB 1 TAB ORALLY TWICE DAILY TAKING PANTOPRAZOLE SODIUM 40 MG TABLET DELAYED RELEASE TAKE ONE TABLET BY MOUTH TWICE A DAY TAKING ESTRACE 0.1 MG/GM CREAM 0.5 GM VAGINAL TWICE A WEEK TAKING FLUTICASONE PROPIONATE HFA 110 MCG/ACT AEROSOL 1 PUFF INHALATION TWICE A DAY TAKING RANITIDINE HCL 150 MG TABLET 1 TABLET AT BEDTIME ORALLY ONCE A DAY TAKING LYRICA 150 MG CAPSULE 1 CAPSULE ORALLY TWICE DAILY TAKING TRAMADOL HCL 50 MG TABLET 1 TAB ORALLY EVERY 6 HOURS NEEDED PAIN MDD=4 NOT-TAKING COLACE 100 MG CAPSULE 1 CAPSULE NEEDED ORALLY ONCE A DAY NOT-TAKING SIMETHICONE 80 MG TABLET CHEWABLE 1 TABLET AFTER MEALS AND AT BEDTIME NEEDED ORALLY FOUR TIMES A DAY NOT-TAKING ACYCLOVIR 400 MG TABLET 1 TABLET ORALLY TWICE A DAY NEEDED NOT-TAKING DICYCLOMINE HCL 20 MG TABLET 1 TABLET ORALLY FOUR TIMES A DAY NOT-TAKING ZANTAC 150 MG TABLET 1 TABLET ORALLY BID NOT-TAKING CHERATUSSIN AC 100-10 MG/5ML SYRUP 5 ML ORALLY TWICE DAILY NEEDED NOT-TAKING ZOFRAN 8 MG TABLET 1 TABLET ORALLY TWICE A DAY NOT-TAKING [id number] 50-325-40 MG TABLET 1 TABLET NEEDED ORALLY EVERY 4 HRS NOT-TAKING METOPROLOL SUCCINATE 25 MG CAPSULE ER 24 HOUR SPRINKLE 1 CAPSULE ORALLY ONCE A DAY FOR MIGRAINE PROPHYLAXIS NOT-TAKING ZOFRAN 4 MG TABLET 1 TABLETS ORALLY FOR NAUSEAS EVERY 6 HOURS NEEDED MDD3 NOT-TAKING CROMOLYN SODIUM 4 % SOLUTION 1 DROP INTO AFFECTED EYE OPHTHALMIC FOUR TIMES A DAY NOT-TAKING SUMATRIPTAN SUCCINATE 100 MG TABLET 1 TABLET NEEDED ONE TIME ORALLY TAKE BID PRN MAIGRAINE. MDD=2. MAX 10 MIGRAINE DAY SPER MO, NOTES: STOPPED TAKING MED PER PAIN CENTER TOLD HER MEDICATION LIST REVIEWED AND RECONCILED WITH THE PATIENT PAST MEDICAL HISTORY ESOPHAGEAL REFLUX ASTHMA MIGRAINE HEADACHE ARTHRITIS ABNORMAL PAP SMEAR/SEVERAL JOEL 3 W/[facility] (DR. 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 PATH REPORT: FRAGMENTS OF COLONIC MUCOSA WITH INCREASED LYMPHOPLASMA INFILTRATES OF LAMINA PROPRIA 01/2014 ANTERIOR CERVICAL DISCECTOMY AND FUSION (ACDF) BY DR. NUSRAT THOMPSON, [facility] 06/04/15 LEFT CTS RELEASE 09/13/17 FAMILY HISTORY FATHER: ALIVE MOTHER: , ANEURYSM, OSTEOPOROSIS SIBLINGS: ALIVE, HEART DISEASE SON(S): ALIVE 1 BROTHER(S) , 2 SISTER(S) - HEALTHY. 2 SON(S) - HEALTHY. SOCIAL HISTORY GENERAL: TOBACCO USE ARE YOU A:FORMER SMOKER HOW LONG HAS IT BEEN SINCE YOU LAST SMOKED?5-10 YEARS PAIN CLINIC PFS, CLERGY, PUBLIC HEALTH REFERRALS PFS REFERRAL NEEDED?NO CLERGY REFERRAL NEEDED?NO PUBLIC HEALTH REFERRAL NEEDED?NO WAS THE PROVIDER NOTIFIED OF ANY PERTINENT INFO?YES HAS THE PATIENT BEEN EDUCATED REGARDING HIS/HER PLAN OF CARE?YES HAS THE PATIENT BEEN EDUCATED REGARDING PAIN, THE RISK FOR PAIN, THE IMPORTANCE OF EFFECTIVE PAIN MANAGEMENT, AND THE PAIN ASSESSMENT PROCESS?YES LATEX QUESTIONNAIRE LATEX ALLERGY : HAVE YOU EVER DEVELOPED ANY TYPE OF REACTION AFTER HANDLING LATEX PRODUCTS SUCH RUBBER GLOVES, CONDOMS, DIAPHRAGMS, BALLOONS, SOCKS, OR UNDERWEAR?NO LATEX ALLERGY : HAVE YOU EVER DEVELOPED ANY TYPE OF REACTION DURING OR AFTER DENTAL APPOINTMENT, VAGINAL/RECTAL EXAMINATION, SURGICAL PROCEDURE, OR ANY OTHER EXPOSURE?YES - PLEASE INDICATE :SURGICAL PROCEDURE LATEX RISK : HAVE YOU EVER HAD ANY DIFFICULTY BREATHING OR HIVES AFTER EATING OR HANDLING ANY FRUITS, OR VEGETABLES; SUCH KIWI, BANANAS, STONE FRUITS, OR CHESTNUTSNO LATEX RISK : DO YOU HAVE A PREVIOUS PERSONAL HISTORY OF MORE THAN NINE SURGERIES, SPINA BIFIDA, OR REPEATED CATHERIZATIONS? YES - PLEASE INDICATE : > 9 SURGERIES LATEX RISK : ARE YOU FREQUENTLY EXPOSED TO LATEX PRODUCTS IN YOUR OCCUPATION?NO DATE ASKED : 05/22/2019 ADVANCE DIRECTIVE ADVANCE DIRECTIVE DISCUSSED WITH PATIENT:YES PATIENT DECLINED HCP INFORMATION AND DECLINED ASSISTANCE WITH PAPERWORK. EDUCATION LEVEL OF EDUCATION:HIGH SCHOOL LANGUAGE LANGUAGES SPOKEN:CAMBODIAN OTHER-ICELANDIC IS HER FIRST LANGUAGE DOMESTIC VIOLENCE STATUS:SINGLE DO YOU FEEL SAFE IN YOUR ENVIRONMENT?YES ALCOHOL SCREENING DID YOU HAVE A DRINK CONTAINING ALCOHOL IN THE PAST YEAR?NO POINTS0 INTERPRETATIONNEGATIVE OCCUPATION: NOT WORKING. LEARNING BARRIERS / SPECIAL NEEDS CHANGE FROM LAST VISIT?NO BARRIERS TO LEARNING?NO HEARING IMPAIRED?NO VISION IMPAIRED?YES :CORRECTIVE LENSES COGNITIVELY IMPAIRED?NO READINESS TO LEARN?YES LEARNING PREFERENCES?NO LEARNING CAPABILITIES PRESENT?YES EMOTIONAL BARRIERS?NO SPECIAL DEVICES?NO COMMERCIAL SINGER NEEDED?NO USED TO SMOKE FOR OVER 20 YRS ON/OFF WITH 3 CIGS/DAYREVIEWED WITH PATIENT 11/22/18 1447 JSREVIEWED WITH PATIENT 02/20/19 1545 JSREVIEWED WITH PATIENT 06/10/2019 1335 LAS. HOSPITALIZATION/MAJOR DIAGNOSTIC PROCEDURE ACDF SURGERY, [facility] 92/15-06/07/15 C-DIFF 08/14/17-08/18/17 REVIEW OF SYSTEMS REVIEWED BY: PROVIDER: ZACHARY HUGHES JOB SERVICE CONSULTANT-C . CONSTITUTIONAL: ANY CHANGE IN YOUR MEDICAL CONDITION? NO . CHILLS NO . FEVER NO . INFECTION: DO YOU HAVE NEW INFECTIONS? NO . DO YOU HAVE HISTORY OF MRSA? NO . MUSCULOSKELETAL: ANY NEW PATTERNS OF PAIN OR NUMBNESS? NO . GASTROENTEROLOGY: ANY NEW CHANGE IN BOWEL CONTROL? NO . GENITOURINARY: ANY NEW CHANGE IN BLADDER CONTROL? NO . IS THERE A CHANCE YOU COULD BE ? NO . HEMATOLOGY/LYMPH: DO YOU TAKE ANY BLOOD THINNERS? (FOR EXAMPLE- COUMADIN, PLAVIX, AGGRENOX, PLATEL, PRADAXA, OR XARELTO) NO . WHEN WAS YOUR LAST DOSE? DATE: TIME: . NEUROLOGY: HAVE YOU FALLEN IN THE PAST 12 MONTHS? NO . ANY NEW EXTREMITY NUMBNESS OR WEAKNESS? NO . CARDIOLOGY: DO YOU HAVE A PACEMAKER OR DEFIBRILLATOR? NO . RESPIRATORY: HAVE YOU BEEN SICK IN THE PAST WEEK? NO . FEVER NO . FLU LIKE SYMPTOMS? NO . COUGH NO . INTEGUMENTARY: DO YOU HAVE ANY RASHES OR OPEN SORES? NO . ALLERGIC/IMMUNO: ARE YOU ALLERGIC TO IV DYE? NO . ANY NEW ALLERGIES? NO . PSYCHIATRIC: DO YOU HAVE THOUGHTS OF HURTING YOURSELF OR SOMEONE ELSE? NO . ARE YOU ABUSED, NEGLECTED, OR IN AN UNSAFE ENVIRONMENT? NO . ENDOCRINOLOGY: ARE YOU DIABETIC? NO . OTHER: DO YOU NEED ANY PRESCRIPTIONS? YES . IF YES, PLEASE LIST: ____LYRICA, TRAMADOL, CYCLOBENZAPRINE, DULOXETINE . ANY NEW PROBLEMS WITH YOUR MEDICATIONS? NO . WHEN DID YOU LAST EAT? ____ . WHEN DID YOU LAST DRINK? ____ . WHAT DID YOU LAST DRINK? ____ . NAME OF PERSON DRIVING YOU HOME? ____ . DO YOU HAVE ANY OTHER QUESTIONS OR CONCERNS NO . VITAL SIGNS WT 169.4 LBS, HT 60 IN, BMI 33.08 INDEX, BP 127/72 MM HG, HR 79 /MIN, RR 18 /MIN, TEMP 98.6 F, OXYGEN SAT % 96%, SAFE IN ENV? (Y/N) YES, NA INITIALS OH 13:38, REVIEWED BY: MAILE. EXAMINATION GENERAL EXAMINATION: GENERALNO ACUTE DISTRESS, WELL NOURISHED AND HYDRATED. PSYCHAPPROPRIATE MOOD AND AFFECT . NECK:POINT TENDER UPPER ASPECT OF CERVICAL SPINE SURROUNDING SKIN SHOWS NO ERYTHEMA, ECCHYMOSIS, INCREASED WARMTH, AND/OR SKIN ERUPTIONS NOTED. . LUNGS:CLEAR TO AUSCULTATION BILATERALLY, NO WHEEZES, RHONCHI, RALES. HEART:NO MURMURS, REGULAR RATE AND RHYTHM. ASSESSMENTS MYALGIA, OTHER SITE - M79.18 (PRIMARY) TREATMENT MYALGIA, OTHER SITE REFILL CYCLOBENZAPRINE HCL TABLET, 10 MG, 1 TABLET, ORALLY FOR SPSMS AND PAIN, THREE TIMES A DAY NEEDED MDD3, 30 DAY(S), 75, REFILLS 1 REFILL LYRICA CAPSULE, 150 MG, 1 CAPSULE, ORALLY, TWICE DAILY, 30 DAYS, 60, REFILLS 0 NOTES: BILATERAL OCCIPITAL BLOCK. CLINICAL NOTES: 58-YEAR-OLD FEMALE IN FOR WORKMEN'S COMP. POST TPI FOLLOW-UP. GIVEN PRESENTING SYMPTOMS AND RESULTS PHYSICAL EXAMINATION RECOMMENDED BILATERAL OCCIPITAL BLOCK WITH POSTPROCEDURAL FOLLOW-UP. SHE STATES SHE HAS HAD THIS PROCEDURE IN THE PAST AND IT HAS HELPED ALLEVIATE HER SYMPTOMS. PATIENT HAS EXPRESSED UNDERSTANDING OF AND WAS IN AGREEMENT WITH TREATMENT PLAN. GIVEN TIME TO ASK QUESTIONS AND EXPRESS CONCERNS., ISTOP REGISTRY REVIEWED AND DEMONSTRATES COMPLLIANCE. (REF # [id number] ) BRINGS IN MEDICATIONS WHICH IS APPROPRIATE FOR WHAT WAS DISPENSED. RECENT URINE TOXICOLOGY REVIEWED. NO UNAUTHORIZED MEDICATIONS. NO ILLICIT SUBSTANCES AND PRESCRIBED MEDICATIONS WERE PRESENT. PROCEDURES PN WORKMANS' COMP OPINION IN YOUR OPINION, WAS THE INCIDENT THAT THE PATIENT DESCRIBED THE COMPETENT MEDICAL CAUSE OF THIS INJURY/ILLNESS? YES ARE THE PATIENT'S COMPLAINTS CONSISTENT WITH HIS/HER HISTORY OF THE INJURY/ILLNESS? YES IS THE PATIENT'S HISTORY OF THE INJURY/ILLNESS CONSISTENT WITH YOUR OBJECTIVE FINDING? YES WHAT IS THE PERCENTAGE OF TEMPORARY IMPAIRMENT? TOTAL = 100% IS THE PATIENT WORKING? NO DOCTOR ON SITE: GILBERTO ESCOBAR MD PROCEDURE CODES FA211 ESTABILISHED PATIENT [facility] CHARGE DISPOSITION & COMMUNICATION FOLLOW UP POSTPROCEDURE (REASON: BILATERAL OCCIPITAL BLOCK) ELECTRONICALLY SIGNED BY CLARISSA PACKER ON 06/11/2019 AT 11:06 AM EDT DISCLAIMER : THIS IS A VISIT SUMMARY EXTRACTED FROM THE [employer] CHART. IT IS NOT A COPY OF THE [employer] PROGRESS NOTE. MARY
== END ==
LOC: M PAIN 13:30
PROVIDERS: ATTEND Family Medicine
DX: M79.18 Myalgia, other site (principal); K21.9 Gastro-esophageal reflux disease without esophagitis; J45.909 Unspecified asthma, uncomplicated; G43.909 Migraine, unspecified, not intractable, without status migrainosus; M19.90 Unspecified osteoarthritis, unspecified site; Z86.59 Personal history of other mental and behavioral disorders; Z87.891 Personal history of nicotine dependence; Z88.1 Allergy status to other antibiotic agents; Z88.8 Allergy status to other drugs, medicaments and biological substances; Z91.013 Allergy to seafood; Z91.040 Latex allergy status; Z79.899 Other long term (current) drug therapy

== ENCOUNTER → 2019-06-18 | Outpatient (CLI) | payer OTHER ==
[~2019-06-18] MED LIST changes: -OMEP40CA2 PO; +OMEP40CA97 PO
--- NOTE | 2019-06-18 14:33 | REPMRS ---
Patient History The patient states she had a clinical breast exam in 06/2019. Patient is postmenopausal and has history of cervical cancer at age 19 and 39. No known family history of cancer. Benign excisional biopsy of the right breast, 1985. Taking unspecified hormones for 23 years. 3D TOMOSYNTHESIS WAS PERFORMED. [facility] lifetime risk for breast cancer is 5.6%. Digital Woman Screen Mammo: June 18, 2019 - Exam #: [id number] Bilateral CC and MLO view(s) were taken. Technologist: Jacqui Blancas, Technologist Prior study comparison: March 07, 2018, bilateral digital woman screen mammo performed at [facility]. March 06, 2017, digital woman screen mammo performed at [facility]. FINDINGS: The breast tissue is heterogeneously dense. This may lower the sensitivity of mammography. There has been no change in the appearance of the mammogram from the prior studies. There is a moderate amount of residual fibroglandular tissue which is fairly symmetric. There is no interval development of dominant mass, areas of architectural distortion, or clustered microcalcification typical of malignancy. Assessment: BI-RADS/ACR category 1 mammogram. Negative Mammogram. Recommendation Routine screening mammogram in 1 year (for women over age 40). This mammogram was interpreted with the aid of an FDA-approved computer-aided dectection system. Electronically Signed By: Jamie Smith MD 06/18/19 9748
== END ==
LOC: M WHC 13:10
PROVIDERS: ATTEND Nurse Practitioner Family
DX: Z12.31 Encounter for screening mammogram for malignant neoplasm of breast (principal)

== ENCOUNTER → 2019-06-27 | Outpatient (REF) | payer OTHER | LOC: M LAB REF 13:18 | PROVIDERS: ATTEND Internal Medicine Gastroenterology | DX: R19.7 Diarrhea, unspecified (principal) ==

== ENCOUNTER → 2019-07-07 | Outpatient (REF) | payer OTHER | LOC: M SFHCPLAZ 15:56 | PROVIDERS: ATTEND Family Medicine | DX: R19.7 Diarrhea, unspecified (principal); R41.3 Other amnesia ==

== ENCOUNTER → 2019-07-11 | Outpatient (CLI) | payer OTHER ==
[2019-07-11 16:22] LABS: VITAMIN B12 LEVEL > 2000 PG/ML (247-911)
[2019-07-11 17:02] LABS: HIV 1&2 SCREEN CENTAUR NEGATIVE (NEGATIVE)
== END ==
LOC: M LAB 15:18
PROVIDERS: ATTEND Student in an Organized Health Care Education/Training Program
DX: R19.7 Diarrhea, unspecified (principal); R41.3 Other amnesia

== ENCOUNTER → 2019-07-12 | Outpatient (REF) | payer OTHER ==
[2019-07-12 14:32] LABS: CLOSTRIDIUM DIFFICILE PCR NEGATIVE (NEGATIVE)
== END ==
LOC: M LAB REF 13:23
PROVIDERS: ATTEND Student in an Organized Health Care Education/Training Program
DX: R19.7 Diarrhea, unspecified (principal)

== ENCOUNTER → 2019-08-28 | Outpatient (CLI) | payer OTHER ==
[~2019-08-28] MED LIST changes: +BUPIVACAINE HCL 0.25% 10 ML VIAL As Ordered ONE; +BUPIVACAINE HCL 0.25% 30 ML VIAL As Ordered ONE; +TRIAMCINOLONE ACETONIDE SUSP 40 MG/ML VIAL (J3301) As Ordered ONE
--- NOTE | 2019-09-07 23:46 | ECWPNPC ---
PATIENT NAME: DELIA BLOUNT : 1960 GENDER: FEMALE VISIT DATE: 08/28/2019 DISCHARGE DATE: 08/28/19 1214 VISIT LOCKED DATE TIME: PHYSICIAN: GILBERTO MEDINA MD RESOURCE: GILBERTO MEDINA MD REASON FOR APPOINTMENT 1. W/C OCCIPITAL NERVE BLK HISTORY OF PRESENT ILLNESS HISTORY OF PRESENT ILLNESS: PAIN THE PATIENT DESCRIBES THE PAIN... FALL RISK SCREENING: SCREENING :NO FALLS REPORTED IN THE LAST YEAR CURRENT MEDICATIONS TAKING ESTRACE 0.1 MG/GM CREAM 0.5 GM VAGINAL TWICE A WEEK, NOTES: NONE RECENTLY TAKING ESTRACE 1 MG TABLET 1 TABLET ORALLY ONCE DAILY, NOTES: 08/26/19799 TAKING PROBIOTIC 250 MG CAPSULE 1 CAPSULE ORALLY TWICE A DAY, NOTES: 08/26/19799 TAKING ALBUTEROL SULFATE HFA 108 (90 BASE) MCG/ACT AEROSOL SOLUTION 2 PUFFS NEEDED INHALATION EVERY 4 HRS, NOTES: 08/26/191939 TAKING OMEGA 3 1000 MG CAPSULE 1 CAPSULE ORALLY ONCE A DAY, NOTES: 08/26/19799 TAKING LUTEIN VISION BLEND CAPSULE ORALLY DAILY, NOTES: 08/26/19799 TAKING VITAMIN D3 5000 UNITS CAPSULE 1 CAPSULE ORALLY ONCE A DAY, NOTES: 08/26/19799 TAKING MEDICAL COMPRESSION STOCKINGS - MISCELLANEOUS DIRECTED TOPICALLY DAILY; ICD10: R60.0 TAKING VITAMIN B12 1000 MCG TABLET EXTENDED RELEASE 1 TABLET ORALLY ONCE A DAY, NOTES: 08/26/19799 TAKING PANTOPRAZOLE SODIUM 40 MG TABLET DELAYED RELEASE TAKE ONE TABLET BY MOUTH TWICE A DAY , NOTES: 08/26/191939 TAKING FLUTICASONE PROPIONATE HFA 110 MCG/ACT AEROSOL 1 PUFF INHALATION TWICE A DAY, NOTES: 08/28/19799 TAKING ACYCLOVIR 400 MG TABLET 1 TABLET ORALLY ONCE A DAY, NOTES: 08/26/19799 TAKING CHOLESTYRAMINE 4 GM/DOSE POWDER 1 SCOOP ORALLY TWICE A DAY, NOTES: 08/26/191939 TAKING CYCLOBENZAPRINE HCL 10 MG TABLET 1 TABLET ORALLY FOR SPSMS AND PAIN THREE TIMES A DAY NEEDED MDD3, NOTES: 08/26/191939 TAKING CYMBALTA 30 MG CAPSULE DELAYED RELEASE PARTICLES 1 CAPSULE ORALLY ONCE A DAY FOR PAIN, NOTES: 08/26/19799 TAKING LYRICA 150 MG CAPSULE 1 CAPSULE ORALLY TWICE DAILY, NOTES: 08/26/191939 TAKING TRAMADOL HCL 50 MG TABLET 1 TAB ORALLY EVERY 6 HOURS NEEDED PAIN MDD=4, NOTES: 08/26/191939 NOT-TAKING FLORANEX - PACKET 1 PACKET ORALLY DAILY NOT-TAKING RANITIDINE HCL 150 MG TABLET 1 TABLET AT BEDTIME ORALLY ONCE A DAY NOT-TAKING PEPPERMINT OIL 50 MG CAPSULE DELAYED RELEASE DIRECTED ORALLY DAILY NOT-TAKING BENADRYL 25 MG TABLET 1 TABLET ORALLY DAILY BEFORE BEDTIME, NOTES: ONCE IN A WHILE; NOT-TAKING ACYCLOVIR 800 MG TABLET 1 TABLET ORALLY TWICE A DAY NOT-TAKING ESTRACE 1 MG TABLET TAKE ONE TABLET BY MOUTH EVERY DAY NOT-TAKING LACTOBACILLUS - TABLET DIRECTED ORALLY TID NOT-TAKING PROTONIX 40 MG TAB 1 TAB ORALLY TWICE DAILY NOT-TAKING COLACE 100 MG CAPSULE 1 CAPSULE NEEDED ORALLY ONCE A DAY NOT-TAKING SIMETHICONE 80 MG TABLET CHEWABLE 1 TABLET AFTER MEALS AND AT BEDTIME NEEDED ORALLY FOUR TIMES A DAY NOT-TAKING ACYCLOVIR 400 MG TABLET 1 TABLET ORALLY TWICE A DAY NEEDED NOT-TAKING DICYCLOMINE HCL 20 MG TABLET 1 TABLET ORALLY FOUR TIMES A DAY NOT-TAKING ZANTAC 150 MG TABLET 1 TABLET ORALLY BID NOT-TAKING CHERATUSSIN AC 100-10 MG/5ML SYRUP 5 ML ORALLY TWICE DAILY NEEDED NOT-TAKING ZOFRAN 8 MG TABLET 1 TABLET ORALLY TWICE A DAY NOT-TAKING GMCDISXEBX-EUUA-QVSBRANE 50-325-40 MG TABLET 1 TABLET NEEDED ORALLY EVERY 4 HRS NOT-TAKING METOPROLOL SUCCINATE 25 MG CAPSULE ER 24 HOUR SPRINKLE 1 CAPSULE ORALLY ONCE A DAY FOR MIGRAINE PROPHYLAXIS NOT-TAKING ZOFRAN 4 MG TABLET 1 TABLETS ORALLY FOR NAUSEAS EVERY 6 HOURS NEEDED MDD3 NOT-TAKING CROMOLYN SODIUM 4 % SOLUTION 1 DROP INTO AFFECTED EYE OPHTHALMIC FOUR TIMES A DAY NOT-TAKING SUMATRIPTAN SUCCINATE 100 MG TABLET 1 TABLET NEEDED ONE TIME ORALLY TAKE BID PRN MAIGRAINE. MDD=2. MAX 10 MIGRAINE DAY SPER MO, NOTES: STOPPED TAKING MED PER PAIN CENTER TOLD HER MEDICATION LIST REVIEWED AND RECONCILED WITH THE PATIENT PAST MEDICAL HISTORY ESOPHAGEAL REFLUX ASTHMA MIGRAINE HEADACHE ARTHRITIS ABNORMAL PAP SMEAR/SEVERAL JOEL 3 W/CRYO (DR. 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 FIBROMYALGIA STOMACH ULCER HORMONE REPLACEMENT THERAPY (POSTMENOPAUSAL) POSTMENOPAUSAL ATROPHIC VAGINITIS CERVICAL POST-LAMINECTOMY SYNDROME ALLERGIES SEA CRAB: ANAPHYLAXIS - ALLERGY LATEX: RASH - ALLERGY VANCOMYCIN HCL: HIVES/BREATHING PROBLEMS - ALLERGY DOXYCYCLINE CALCIUM: HIVES/BREATHING PROBLEMS - ALLERGY TOPAMAX: HEADACHE HORSE HAIR SURGICAL HISTORY HYSTERECTOMY, TOTAL WITH BSO-DYSPLASIA- C-3 1993 CHOLECYSTECTOMY 1993 BREAST BIOPSY C5-C6 FUSION ENDOSCOPY /COLONOSCOPY 2010, 2013 ENDOSCOPY-BENIGN FINDINGS, COLONOSCOPY - NONBLEEDING INTERNAL HEMORRHOIDS, DIVERTICULA IN RECTO-SIGMOID. PATH REPORT: FRAGMENTS OF COLONIC MUCOSA WITH INCREASED LYMPHOPLASMA INFILTRATES OF LAMINA PROPRIA 01/2014 ANTERIOR CERVICAL DISCECTOMY AND FUSION (ACDF) BY DR. NUSRAT THOMPSON, [facility] 06/04/15 LEFT CTS RELEASE 09/13/[address] GAGNON 04/2018 LEFT HAND CARPAL TUNNEL RELEASE 2018 FAMILY HISTORY FATHER: ALIVE MOTHER: , ANEURYSM, OSTEOPOROSIS SIBLINGS: ALIVE, HEART DISEASE SON(S): ALIVE 1 BROTHER(S) , 2 SISTER(S) - HEALTHY. 2 SON(S) - HEALTHY. SOCIAL HISTORY GENERAL: TOBACCO USE ARE YOU A:FORMER SMOKER HOW LONG HAS IT BEEN SINCE YOU LAST SMOKED?5-10 YEARS HIV / HEP-C SCREENING HIV TEST OFFERED TO PATIENT:YES DATE OFFERED:10/25/2017 HEP-C TEST OFFERED TO PATIENT:YES DATE OFFERED:10/25/2017 TEST ACCEPTED:NO BROCHURE PROVIDED TO PATIENTNO OTHERS AT HOME: MICHELLE. EDUCATION LEVEL OF EDUCATION:HIGH SCHOOL DIET: REGULAR. LANGUAGE LANGUAGES SPOKEN:CHADIAN OTHER-LAO IS HER FIRST LANGUAGE DOMESTIC VIOLENCE STATUS:SINGLE DO YOU FEEL SAFE IN YOUR ENVIRONMENT?YES BMI CARE GOAL FOLLOW-UP ABOVE NORMAL BMI FOLLOW-UPGIVING ENCOURAGEMENT TO EXERCISE RECREATIONAL DRUG USE DRUG USE?NO EXERCISE: WALKING OCC. LEARNING BARRIERS / SPECIAL NEEDS CHANGE FROM LAST VISIT?NO BARRIERS TO LEARNING?NO HEARING IMPAIRED?YES :HEARING AIDES VISION IMPAIRED?YES :CORRECTIVE LENSES COGNITIVELY IMPAIRED?NO READINESS TO LEARN?YES LEARNING PREFERENCES?NO LEARNING CAPABILITIES PRESENT?YES EMOTIONAL BARRIERS?NO SPECIAL DEVICES?NO TAX ASSISTANT NEEDED?NO PAIN CLINIC PFS, CLERGY, PUBLIC HEALTH REFERRALS PFS REFERRAL NEEDED?NO CLERGY REFERRAL NEEDED?NO PUBLIC HEALTH REFERRAL NEEDED?NO WAS THE PROVIDER NOTIFIED OF ANY PERTINENT INFO?YES HAS THE PATIENT BEEN EDUCATED REGARDING HIS/HER PLAN OF CARE?YES HAS THE PATIENT BEEN EDUCATED REGARDING PAIN, THE RISK FOR PAIN, THE IMPORTANCE OF EFFECTIVE PAIN MANAGEMENT, AND THE PAIN ASSESSMENT PROCESS?YES LATEX QUESTIONNAIRE LATEX ALLERGY : HAVE YOU EVER DEVELOPED ANY TYPE OF REACTION AFTER HANDLING LATEX PRODUCTS SUCH RUBBER GLOVES, CONDOMS, DIAPHRAGMS, BALLOONS, SOCKS, OR UNDERWEAR?NO LATEX ALLERGY : HAVE YOU EVER DEVELOPED ANY TYPE OF REACTION DURING OR AFTER DENTAL APPOINTMENT, VAGINAL/RECTAL EXAMINATION, SURGICAL PROCEDURE, OR ANY OTHER EXPOSURE?YES - PLEASE INDICATE :SURGICAL PROCEDURE LATEX RISK : HAVE YOU EVER HAD ANY DIFFICULTY BREATHING OR HIVES AFTER EATING OR HANDLING ANY FRUITS, OR VEGETABLES; SUCH KIWI, BANANAS, STONE FRUITS, OR CHESTNUTSNO LATEX RISK : DO YOU HAVE A PREVIOUS PERSONAL HISTORY OF MORE THAN NINE SURGERIES, SPINA BIFIDA, OR REPEATED CATHERIZATIONS? YES - PLEASE INDICATE : > 9 SURGERIES LATEX RISK : ARE YOU FREQUENTLY EXPOSED TO LATEX PRODUCTS IN YOUR OCCUPATION?NO DATE ASKED : 05/22/2019 CAFFEINE CAFFEINE USE?NO ADVANCE DIRECTIVE ADVANCE DIRECTIVE DISCUSSED WITH PATIENT:YES 08/20/19 PATIENT DECLINED HCP INFORMATION AND DECLINED ASSISTANCE WITH PAPERWORK. JS MARITAL STATUS: SINGLE, ENGAGED. ALCOHOL SCREENING DID YOU HAVE A DRINK CONTAINING ALCOHOL IN THE PAST YEAR?NO POINTS0 INTERPRETATIONNEGATIVE OCCUPATION: NOT WORKING. USED TO SMOKE FOR OVER 20 YRS ON/OFF WITH 3 CIGS/DAYREVIEWED WITH PATIENT 11/22/18 1447 JSREVIEWED WITH PATIENT 02/20/19 1545 JSREVIEWED WITH PATIENT 06/10/2019 1335 LASPRE-SCREENING COMPLETED 08/20/19 1556 JS. HOSPITALIZATION/MAJOR DIAGNOSTIC PROCEDURE ACDF SURGERY, [facility] 925/15-06/07/15 C-DIFF 08/14/17-08/18/17 REVIEW OF SYSTEMS REVIEWED BY: PROVIDER: . CONSTITUTIONAL: ANY CHANGE IN YOUR MEDICAL CONDITION? NO . CHILLS NO . FEVER NO . INFECTION: DO YOU HAVE NEW INFECTIONS? YES - HAD SINUS INFECTION, NOW RESOLVED . DO YOU HAVE HISTORY OF MRSA? NO . MUSCULOSKELETAL: ANY NEW PATTERNS OF PAIN OR NUMBNESS? NO . GASTROENTEROLOGY: ANY NEW CHANGE IN BOWEL CONTROL? NO . GENITOURINARY: ANY NEW CHANGE IN BLADDER CONTROL? NO . IS THERE A CHANCE YOU COULD BE ? NO . HEMATOLOGY/LYMPH: DO YOU TAKE ANY BLOOD THINNERS? (FOR EXAMPLE- COUMADIN, PLAVIX, AGGRENOX, PLATEL, PRADAXA, OR XARELTO) NO . WHEN WAS YOUR LAST DOSE? DATE: TIME: . NEUROLOGY: HAVE YOU FALLEN IN THE PAST 12 MONTHS? NO . ANY NEW EXTREMITY NUMBNESS OR WEAKNESS? NO . CARDIOLOGY: DO YOU HAVE A PACEMAKER OR DEFIBRILLATOR? NO . RESPIRATORY: HAVE YOU BEEN SICK IN THE PAST WEEK? NO . FEVER NO . FLU LIKE SYMPTOMS? NO . COUGH NO . INTEGUMENTARY: DO YOU HAVE ANY RASHES OR OPEN SORES? NO . ALLERGIC/IMMUNO: ARE YOU ALLERGIC TO IV DYE? NO . ANY NEW ALLERGIES? NO . PSYCHIATRIC: DO YOU HAVE THOUGHTS OF HURTING YOURSELF OR SOMEONE ELSE? NO . ARE YOU ABUSED, NEGLECTED, OR IN AN UNSAFE ENVIRONMENT? NO . ENDOCRINOLOGY: ARE YOU DIABETIC? NO . OTHER: DO YOU NEED ANY PRESCRIPTIONS? YES . IF YES, PLEASE LIST: TRAMADOL, LYRICA, CYCLOBENZAPRINE, DULOXETINE . ANY NEW PROBLEMS WITH YOUR MEDICATIONS? NO . WHEN DID YOU LAST EAT? 08/27/19 . WHEN DID YOU LAST DRINK? 08/27/19 . WHAT DID YOU LAST DRINK? ____ . NAME OF PERSON DRIVING YOU HOME? MAXINE . DO YOU HAVE ANY OTHER QUESTIONS OR CONCERNS NO . VITAL SIGNS WT 171.0 LBS, HT 60 IN, BMI 33.39 INDEX, BP 127/67 MM HG, HR 69 /MIN, RR 18 /MIN, TEMP 97.4 F, OXYGEN SAT % 97%, NA INITIALS AW 1006, REVIEWED BY: TORRIE. 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 YES ARE THE PATIENT'S COMPLAINTS CONSISTENT WITH HIS/HER HISTORY OF THE INJURY/ILLNESS? YES IS THE PATIENT'S HISTORY OF THE INJURY/ILLNESS CONSISTENT WITH YOUR OBJECTIVE FINDING? YES WHAT IS THE PERCENTAGE OF TEMPORARY IMPAIRMENT? TOTAL = 100% IS THE PATIENT WORKING? NO DOCTOR ON SITE: GILBERTO ESCOBAR MD PN OCCIPITAL NERVE BLOCK GREATER PRE PROCEDURE DIAGNOSIS OCCIPITAL NEURALGIA. POST PROCEDURE DIAGNOSIS OCCIPITAL NEURALGIA. PROCEDURE BILATERAL GREATER OCCIPITAL NERVE BLOCK SURGEON DR. GILBERTO MEDINA TITLE CLOSER NONE ANESTHESIA LOCAL PRE PROCEDURE NOTE 59 YEAR-OLD PATIENT WITH HISTORY OF CHRONIC OCCIPITAL PAIN. THE PAIN IS LOCATED OVER THE OCCIPITAL AREA WITH RADIATION TOWARDS THE PARIETAL AREA OF THE CRANIUM. I EVALUATED THE PATIENT AND REVIEWED THE CHART. I WENT OVER THE RISKS, ALTERNATIVES, AND BENEFITS ASSOCIATED WITH THIS PROCEDURE. THE PATIENT WOULD LIKE TO PROCEED AND GAVE CONSENT TO PERFORM THE PROCEDURE. THE PATIENT DENIES UNEXPLAINABLE WEIGHT LOSS, FEVER, CHILLS, OR NEW CHANGES IN URINARY OR BOWEL CONTROL. DESCRIPTION OF PROCEDURE THE PATIENT WAS BROUGHT TO THE PROCEDURE ROOM AND PLACED IN THE SITTING POSITION. THE BILATERAL OCCIPITAL AREA WAS CLEANED WITH ALCOHOL. THE PROCEDURE WAS DONE USING STERILE TECHNIQUES. I CHECKED LATERALITY AND THE LEVEL WHERE THE PROCEDURE WAS GOING TO BE PERFORMED WITH THE PATIENT AND THE SUPPORTING STAFF AT THE MOMENT OF THE TIME OUT IN THE PROCEDURE ROOM. USING A 25-GAUGE NEEDLE, THE BILATERAL OCCIPITAL NERVES WERE INJECTED AT THE NUCHAL LINE, 1-INCH LATERAL OF MIDLINE. I USED A TOTAL OF 15 ML OF BUPIVACAINE 0.25% WITH KENALOG 20 MG AT EACH NERVE. THERE WAS NO EVIDENCE OF BLOOD, PARESTHESIA OR CEREBROSPINAL FLUID DURING THE PROCEDURE. THE PATIENT WAS SENT TO THE RECOVERY ROOM. THE PATIENT WAS MOVING THE EXTREMITIES AND DOING WELL. THERE WAS NO COMPLICATION DURING THE PROCEDURE. POST PROCEDURE NOTE I AM LOOKING FOR LONG LASTING PAIN RELIEF WITH THIS INTERVENTION. THE PATIENT WILL BE SEEN IN A FOLLOW UP IN THE NEXT FEW WEEKS. INSTRUCTIONS WERE GIVEN, QUESTIONS WERE ANSWERED, AND THE PATIENT EXPRESSED UNDERSTANDING AND AGREED WITH THE PLAN. I, HEATH DALY, DOCUMENTED THE ABOVE INFORMATION ACTING A SCRIBE FOR DR. MEDINA. I HAVE REVIEWED THE ABOVE DOCUMENT, WRITTEN BY HEATH PAUL AND I VERIFY THAT IT IS ACCURATE. PROCEDURE CODES 18730 N BLOCK INJ OCCIPITAL, MODIFIERS: 50 DISPOSITION & COMMUNICATION FOLLOW UP 3 WEEKS ELECTRONICALLY SIGNED BY GILBERTO MEDINA MD, MD ON 09/07/2019 AT 12:56 PM EST DISCLAIMER : THIS IS A VISIT SUMMARY EXTRACTED FROM THE [employer] CHART. IT IS NOT A COPY OF THE [employer] PROGRESS NOTE. MTDD
== END ==
LOC: M PAIN 09:45
PROVIDERS: ATTEND Anesthesiology
DX: M54.81 Occipital neuralgia (principal)
CPT/HCPCS: 64405; 77002; J3301

== ENCOUNTER → 2019-08-29 | Outpatient (CLI) | payer OTHER ==
[~2019-08-29] MED LIST changes: -BUPIVACAINE HCL 0.25% 10 ML VIAL As Ordered ONE; -BUPIVACAINE HCL 0.25% 30 ML VIAL As Ordered ONE; -TRIAMCINOLONE ACETONIDE SUSP 40 MG/ML VIAL (J3301) As Ordered ONE
--- NOTE | 2019-09-01 23:12 | ECWPNPC ---
PATIENT NAME: DELIA BLOUNT : 1960 GENDER: FEMALE VISIT DATE: 08/29/2019 DISCHARGE DATE: 08/29/19 1209 VISIT LOCKED DATE TIME: PHYSICIAN: BENIGNO HUGHES RESOURCE: BENIGNO HUGHES REASON FOR APPOINTMENT 1. W/C MEDS HISTORY OF PRESENT ILLNESS HISTORY OF PRESENT ILLNESS: PAIN THE PATIENT DESCRIBES THE PAIN... 59-YEAR-OLD FEMALE IN FOR WORKER'S COMP. CHRONIC PAIN FOLLOW-UP. SHE RATES HER PAIN CURRENTLY AT A 5-6 OUT OF 10 AND DESCRIBES IT ACHING, SHARP, BURNING, STABBING, SORE, SHOOTING, AND TENDER. SHE WOULD LIKE TO DISCUSS MEDICATION TO HELP WITH HER MIGRAINE HEADACHES. 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 THE PATIENT STATES SHE HAD NECK SURGERY DONE TWICE, BUT THE PAIN, SPASMS, AND HEADACHES STILL PERSIST. THE PATIENT SAYS SHE IS CURRENTLY USING CYMBALTA, LYRICA, TRAMADOL, AND CYCLOBENZAPRINE AND IT IS HELPING SOME FOR HER PAIN AND SPASTICITY. FALL RISK SCREENING: SCREENING :NO FALLS REPORTED IN THE LAST YEAR CURRENT MEDICATIONS TAKING ESTRACE 0.1 MG/GM CREAM 0.5 GM VAGINAL TWICE A WEEK, NOTES: NONE RECENTLY TAKING ESTRACE 1 MG TABLET 1 TABLET ORALLY ONCE DAILY, NOTES: 08/26/19799 TAKING PROBIOTIC 250 MG CAPSULE 1 CAPSULE ORALLY TWICE A DAY, NOTES: 08/26/19799 TAKING ALBUTEROL SULFATE HFA 108 (90 BASE) MCG/ACT AEROSOL SOLUTION 2 PUFFS NEEDED INHALATION EVERY 4 HRS, NOTES: 08/26/191939 TAKING OMEGA 3 1000 MG CAPSULE 1 CAPSULE ORALLY ONCE A DAY, NOTES: 08/26/19799 TAKING LUTEIN VISION BLEND CAPSULE ORALLY DAILY, NOTES: 08/26/19799 TAKING VITAMIN D3 5000 UNITS CAPSULE 1 CAPSULE ORALLY ONCE A DAY, NOTES: 08/26/19799 TAKING MEDICAL COMPRESSION STOCKINGS - MISCELLANEOUS DIRECTED TOPICALLY DAILY; ICD10: R60.0 TAKING VITAMIN B12 1000 MCG TABLET EXTENDED RELEASE 1 TABLET ORALLY ONCE A DAY, NOTES: 08/26/19799 TAKING PANTOPRAZOLE SODIUM 40 MG TABLET DELAYED RELEASE TAKE ONE TABLET BY MOUTH TWICE A DAY , NOTES: 08/26/191939 TAKING FLUTICASONE PROPIONATE HFA 110 MCG/ACT AEROSOL 1 PUFF INHALATION TWICE A DAY, NOTES: 08/28/19799 TAKING ACYCLOVIR 400 MG TABLET 1 TABLET ORALLY ONCE A DAY, NOTES: 08/26/19799 TAKING CHOLESTYRAMINE 4 GM/DOSE POWDER 1 SCOOP ORALLY TWICE A DAY, NOTES: 08/26/191939 TAKING CYCLOBENZAPRINE HCL 10 MG TABLET 1 TABLET ORALLY FOR SPSMS AND PAIN THREE TIMES A DAY NEEDED MDD3 TAKING CYMBALTA 30 MG CAPSULE DELAYED RELEASE PARTICLES 1 CAPSULE ORALLY ONCE A DAY FOR PAIN TAKING LYRICA 150 MG CAPSULE 1 CAPSULE ORALLY TWICE DAILY TAKING TRAMADOL HCL 50 MG TABLET 1 TAB ORALLY EVERY 6 HOURS NEEDED PAIN MDD=4 NOT-TAKING FLORANEX - PACKET 1 PACKET ORALLY DAILY NOT-TAKING RANITIDINE HCL 150 MG TABLET 1 TABLET AT BEDTIME ORALLY ONCE A DAY NOT-TAKING PEPPERMINT OIL 50 MG CAPSULE DELAYED RELEASE DIRECTED ORALLY DAILY NOT-TAKING BENADRYL 25 MG TABLET 1 TABLET ORALLY DAILY BEFORE BEDTIME, NOTES: ONCE IN A WHILE; NOT-TAKING ACYCLOVIR 800 MG TABLET 1 TABLET ORALLY TWICE A DAY NOT-TAKING ESTRACE 1 MG TABLET TAKE ONE TABLET BY MOUTH EVERY DAY NOT-TAKING LACTOBACILLUS - TABLET DIRECTED ORALLY TID NOT-TAKING PROTONIX 40 MG TAB 1 TAB ORALLY TWICE DAILY NOT-TAKING COLACE 100 MG CAPSULE 1 CAPSULE NEEDED ORALLY ONCE A DAY NOT-TAKING SIMETHICONE 80 MG TABLET CHEWABLE 1 TABLET AFTER MEALS AND AT BEDTIME NEEDED ORALLY FOUR TIMES A DAY NOT-TAKING ACYCLOVIR 400 MG TABLET 1 TABLET ORALLY TWICE A DAY NEEDED NOT-TAKING DICYCLOMINE HCL 20 MG TABLET 1 TABLET ORALLY FOUR TIMES A DAY NOT-TAKING ZANTAC 150 MG TABLET 1 TABLET ORALLY BID NOT-TAKING CHERATUSSIN AC 100-10 MG/5ML SYRUP 5 ML ORALLY TWICE DAILY NEEDED NOT-TAKING ZOFRAN 8 MG TABLET 1 TABLET ORALLY TWICE A DAY NOT-TAKING [id number] 50-325-40 MG TABLET 1 TABLET NEEDED ORALLY EVERY 4 HRS NOT-TAKING METOPROLOL SUCCINATE 25 MG CAPSULE ER 24 HOUR SPRINKLE 1 CAPSULE ORALLY ONCE A DAY FOR MIGRAINE PROPHYLAXIS NOT-TAKING ZOFRAN 4 MG TABLET 1 TABLETS ORALLY FOR NAUSEAS EVERY 6 HOURS NEEDED MDD3 NOT-TAKING CROMOLYN SODIUM 4 % SOLUTION 1 DROP INTO AFFECTED EYE OPHTHALMIC FOUR TIMES A DAY NOT-TAKING SUMATRIPTAN SUCCINATE 100 MG TABLET 1 TABLET NEEDED ONE TIME ORALLY TAKE BID PRN MAIGRAINE. MDD=2. MAX 10 MIGRAINE DAY SPER MO, NOTES: STOPPED TAKING MED PER PAIN CENTER TOLD HER MEDICATION LIST REVIEWED AND RECONCILED WITH THE PATIENT PAST MEDICAL HISTORY ESOPHAGEAL REFLUX ASTHMA MIGRAINE HEADACHE ARTHRITIS ABNORMAL PAP SMEAR/SEVERAL JOEL 3 W/CRYO (DR. 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 FIBROMYALGIA STOMACH ULCER HORMONE REPLACEMENT THERAPY (POSTMENOPAUSAL) POSTMENOPAUSAL ATROPHIC VAGINITIS CERVICAL POST-LAMINECTOMY SYNDROME ALLERGIES SEA CRAB: ANAPHYLAXIS - ALLERGY LATEX: RASH - ALLERGY VANCOMYCIN HCL: HIVES/BREATHING PROBLEMS - ALLERGY DOXYCYCLINE CALCIUM: HIVES/BREATHING PROBLEMS - ALLERGY TOPAMAX: HEADACHE HORSE HAIR SURGICAL HISTORY HYSTERECTOMY, TOTAL WITH BSO-DYSPLASIA- C-3 1993 CHOLECYSTECTOMY 1993 BREAST BIOPSY C5-C6 FUSION ENDOSCOPY /COLONOSCOPY 2010, 2013 ENDOSCOPY-BENIGN FINDINGS, COLONOSCOPY - NONBLEEDING INTERNAL HEMORRHOIDS, DIVERTICULA IN RECTO-SIGMOID. PATH REPORT: FRAGMENTS OF COLONIC MUCOSA WITH INCREASED LYMPHOPLASMA INFILTRATES OF LAMINA PROPRIA 01/2014 ANTERIOR CERVICAL DISCECTOMY AND FUSION (ACDF) BY DR. NUSRAT THOMPSON, [facility] 06/04/15 LEFT CTS RELEASE 09/13/[address] GAGNON 04/2018 LEFT HAND CARPAL TUNNEL RELEASE 2019 FAMILY HISTORY FATHER: ALIVE MOTHER: , ANEURYSM, OSTEOPOROSIS SIBLINGS: ALIVE, HEART DISEASE SON(S): ALIVE 1 BROTHER(S) , 2 SISTER(S) - HEALTHY. 2 SON(S) - HEALTHY. SOCIAL HISTORY GENERAL: TOBACCO USE ARE YOU A:FORMER SMOKER HOW LONG HAS IT BEEN SINCE YOU LAST SMOKED?5-10 YEARS HIV / HEP-C SCREENING HIV TEST OFFERED TO PATIENT:YES DATE OFFERED:10/25/2017 HEP-C TEST OFFERED TO PATIENT:YES DATE OFFERED:10/25/2017 TEST ACCEPTED:NO BROCHURE PROVIDED TO PATIENTNO OTHERS AT HOME: MICHELLE. EDUCATION LEVEL OF EDUCATION:HIGH SCHOOL DIET: REGULAR. LANGUAGE LANGUAGES SPOKEN:CAPE VERDEAN OTHER-SETSWANA IS HER FIRST LANGUAGE DOMESTIC VIOLENCE STATUS:SINGLE DO YOU FEEL SAFE IN YOUR ENVIRONMENT?YES BMI CARE GOAL FOLLOW-UP ABOVE NORMAL BMI FOLLOW-UPGIVING ENCOURAGEMENT TO EXERCISE RECREATIONAL DRUG USE DRUG USE?NO EXERCISE: WALKING OCC. LEARNING BARRIERS / SPECIAL NEEDS CHANGE FROM LAST VISIT?NO BARRIERS TO LEARNING?NO HEARING IMPAIRED?YES VISION IMPAIRED?YES COGNITIVELY IMPAIRED?NO :HEARING AIDES :CORRECTIVE LENSES READINESS TO LEARN?YES LEARNING PREFERENCES?NO LEARNING CAPABILITIES PRESENT?YES EMOTIONAL BARRIERS?NO SPECIAL DEVICES?NO CORPORATE DIRECTOR OF HUMAN RESOURCES NEEDED?NO PAIN CLINIC PFS, CLERGY, PUBLIC HEALTH REFERRALS PFS REFERRAL NEEDED?NO CLERGY REFERRAL NEEDED?NO PUBLIC HEALTH REFERRAL NEEDED?NO WAS THE PROVIDER NOTIFIED OF ANY PERTINENT INFO?YES HAS THE PATIENT BEEN EDUCATED REGARDING HIS/HER PLAN OF CARE?YES HAS THE PATIENT BEEN EDUCATED REGARDING PAIN, THE RISK FOR PAIN, THE IMPORTANCE OF EFFECTIVE PAIN MANAGEMENT, AND THE PAIN ASSESSMENT PROCESS?YES LATEX QUESTIONNAIRE LATEX ALLERGY : HAVE YOU EVER DEVELOPED ANY TYPE OF REACTION AFTER HANDLING LATEX PRODUCTS SUCH RUBBER GLOVES, CONDOMS, DIAPHRAGMS, BALLOONS, SOCKS, OR UNDERWEAR?NO LATEX ALLERGY : HAVE YOU EVER DEVELOPED ANY TYPE OF REACTION DURING OR AFTER DENTAL APPOINTMENT, VAGINAL/RECTAL EXAMINATION, SURGICAL PROCEDURE, OR ANY OTHER EXPOSURE?YES - PLEASE INDICATE :SURGICAL PROCEDURE DATE ASKED : 05/22/2019 LATEX RISK : HAVE YOU EVER HAD ANY DIFFICULTY BREATHING OR HIVES AFTER EATING OR HANDLING ANY FRUITS, OR VEGETABLES; SUCH KIWI, BANANAS, STONE FRUITS, OR CHESTNUTSNO LATEX RISK : DO YOU HAVE A PREVIOUS PERSONAL HISTORY OF MORE THAN NINE SURGERIES, SPINA BIFIDA, OR REPEATED CATHERIZATIONS? YES - PLEASE INDICATE : > 9 SURGERIES LATEX RISK : ARE YOU FREQUENTLY EXPOSED TO LATEX PRODUCTS IN YOUR OCCUPATION?NO CAFFEINE CAFFEINE USE?NO ADVANCE DIRECTIVE ADVANCE DIRECTIVE DISCUSSED WITH PATIENT:YES 08/20/19 PATIENT DECLINED HCP INFORMATION AND DECLINED ASSISTANCE WITH PAPERWORK. JS MARITAL STATUS: SINGLE, ENGAGED. ALCOHOL SCREENING DID YOU HAVE A DRINK CONTAINING ALCOHOL IN THE PAST YEAR?NO POINTS0 INTERPRETATIONNEGATIVE OCCUPATION: NOT WORKING. USED TO SMOKE FOR OVER 20 YRS ON/OFF WITH 3 CIGS/DAYREVIEWED WITH PATIENT 11/22/18 1447 JSREVIEWED WITH PATIENT 02/20/19 1545 JSREVIEWED WITH PATIENT 06/10/2019 1335 LASPRE-SCREENING COMPLETED 08/20/19 1556 JS. HOSPITALIZATION/MAJOR DIAGNOSTIC PROCEDURE ACDF SURGERY, [facility] 92/15-06/07/15 C-DIFF 08/14/17-08/18/17 REVIEW OF SYSTEMS REVIEWED BY: PROVIDER: ZACHARY ROMO-C . CONSTITUTIONAL: ANY CHANGE IN YOUR MEDICAL CONDITION? NO . CHILLS NO . FEVER NO . INFECTION: DO YOU HAVE NEW INFECTIONS? YES RECENT HISTORY OF SINUS INFECTION . DO YOU HAVE HISTORY OF MRSA? NO . MUSCULOSKELETAL: ANY NEW PATTERNS OF PAIN OR NUMBNESS? NO . GASTROENTEROLOGY: ANY NEW CHANGE IN BOWEL CONTROL? NO . GENITOURINARY: ANY NEW CHANGE IN BLADDER CONTROL? NO . IS THERE A CHANCE YOU COULD BE ? NO . HEMATOLOGY/LYMPH: DO YOU TAKE ANY BLOOD THINNERS? (FOR EXAMPLE- COUMADIN, PLAVIX, AGGRENOX, PLATEL, PRADAXA, OR XARELTO) NO . WHEN WAS YOUR LAST DOSE? DATE: TIME: . NEUROLOGY: HAVE YOU FALLEN IN THE PAST 12 MONTHS? NO . ANY NEW EXTREMITY NUMBNESS OR WEAKNESS? NO . CARDIOLOGY: DO YOU HAVE A PACEMAKER OR DEFIBRILLATOR? NO . RESPIRATORY: HAVE YOU BEEN SICK IN THE PAST WEEK? NO . FEVER NO . FLU LIKE SYMPTOMS? NO . COUGH NO . INTEGUMENTARY: DO YOU HAVE ANY RASHES OR OPEN SORES? NO . ALLERGIC/IMMUNO: ARE YOU ALLERGIC TO IV DYE? NO . ANY NEW ALLERGIES? NO . PSYCHIATRIC: DO YOU HAVE THOUGHTS OF HURTING YOURSELF OR SOMEONE ELSE? NO . ARE YOU ABUSED, NEGLECTED, OR IN AN UNSAFE ENVIRONMENT? NO . ENDOCRINOLOGY: ARE YOU DIABETIC? NO . OTHER: DO YOU NEED ANY PRESCRIPTIONS? NO . IF YES, PLEASE LIST: ____ . ANY NEW PROBLEMS WITH YOUR MEDICATIONS? NO . WHEN DID YOU LAST EAT? ____ . WHEN DID YOU LAST DRINK? ____ . WHAT DID YOU LAST DRINK? ____ . NAME OF PERSON DRIVING YOU HOME? ____ . DO YOU HAVE ANY OTHER QUESTIONS OR CONCERNS NO . VITAL SIGNS WT 172. LBS, HT 60 IN, BMI 33.59 INDEX, BP 127/63 MM HG, HR 67 /MIN, RR 18 /MIN, TEMP 98.4 F, OXYGEN SAT % 98%, NA INITIALS SC 11:27. EXAMINATION GENERAL EXAMINATION: GENERALNO ACUTE DISTRESS, WELL NOURISHED AND HYDRATED. PSYCHAPPROPRIATE MOOD AND AFFECT . LUNGS:CLEAR TO AUSCULTATION BILATERALLY, NO WHEEZES, RHONCHI, RALES. HEART:NO MURMURS, REGULAR RATE AND RHYTHM. 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 MDD=2. MAX 10 MIGRAINE DAY SPER MO, NOTES: STOPPED TAKING MED PER PAIN CENTER TOLD HER START RIZATRIPTAN BENZOATE TABLET, 5 MG, 1 TABLET, ORALLY, X1 NEEDED FOR MIGRAINE HEADACHE MAY REPEAT IN 2 HRS IF NEDED X2, 15 DAY(S), 15 CLINICAL NOTES: 59-YEAR-OLD FEMALE IN FOR WORKER'S COMP. CHRONIC PAIN FOLLOW-UP. GIVEN PRESENTING SYMPTOMS AND RESULTS OF PHYSICAL EXAMINATION RECOMMENDED STARTING RAZITRIPTAN WITH FOLLOW-UP IN SEPTEMBER. PATIENT HAS EXPRESSED UNDERSTANDING OF AND WAS IN AGREEMENT WITH TREATMENT PLAN. GIVEN TIME TO ASK QUESTIONS AND EXPRESS CONCERNS., ISTOP REGISTRY REVIEWED AND DEMONSTRATES COMPLLIANCE. (REF # [id number] ) BRINGS IN MEDICATIONS WHICH IS APPROPRIATE FOR WHAT WAS DISPENSED. RECENT URINE TOXICOLOGY REVIEWED. NO UNAUTHORIZED MEDICATIONS. NO ILLICIT SUBSTANCES AND PRESCRIBED MEDICATIONS WERE PRESENT. PROCEDURES PN WORKMANS' COMP OPINION IN YOUR OPINION, WAS THE INCIDENT THAT THE PATIENT DESCRIBED THE COMPETENT MEDICAL CAUSE OF THIS INJURY/ILLNESS? YES ARE THE PATIENT'S COMPLAINTS CONSISTENT WITH HIS/HER HISTORY OF THE INJURY/ILLNESS? YES IS THE PATIENT'S HISTORY OF THE INJURY/ILLNESS CONSISTENT WITH YOUR OBJECTIVE FINDING? YES WHAT IS THE PERCENTAGE OF TEMPORARY IMPAIRMENT? TOTAL = 100% IS THE PATIENT WORKING? NO DOCTOR ON SITE: GILBERTO ESCOBAR MD PREVENTIVE MEDICINE PAIN CLINIC TEACHING: MEDICATIONS GAVE PT PRINTED MATERIAL FOR NEW PRESCRIPTION KG. PROCEDURE CODES FA211 ESTABILISHED PATIENT [facility] FACILITY CHARGE DISPOSITION & COMMUNICATION ELECTRONICALLY SIGNED BY CLARISSA PACKER ON 09/01/2019 AT 02:25 PM EST DISCLAIMER : THIS IS A VISIT SUMMARY EXTRACTED FROM THE [employer] CHART. IT IS NOT A COPY OF THE [employer] PROGRESS NOTE. MARY
== END ==
LOC: M PAIN 11:15
PROVIDERS: ATTEND Family Medicine
DX: M47.813 Spondylosis without myelopathy or radiculopathy, cervicothoracic region (principal); G43.001 Migraine without aura, not intractable, with status migrainosus

== ENCOUNTER → 2019-09-18 | Outpatient (CLI) | payer OTHER ==
[2019-09-18 12:04] LABS: ALBUMIN 3.2 GM/DL (3.2-5.2); ALT/SGPT 21 U/L (12-78); BILIRUBIN,DIRECT 0.2 MG/DL (0.0-0.2); BILIRUBIN,TOTAL 0.4 MG/DL (0.2-1.0); BLOOD UREA NITROGEN 15 MG/DL (7-18); CREATININE FOR GFR 0.66 MG/DL (0.55-1.30); FREE T4 1.02 NG/DL (0.76-1.46); GLOMERULAR FILTRATION RATE > 60.0 (>51); TOTAL PROTEIN 6.1 GM/DL (6.4-8.2)
== END ==
LOC: M LAB 10:15
PROVIDERS: ATTEND Internal Medicine Gastroenterology
DX: R19.7 Diarrhea, unspecified (principal)

== ENCOUNTER → 2019-09-24 | Outpatient (CLI) | payer OTHER ==
[~2019-09-24] MED LIST changes: +ZONI25CA13 PO; -ZONI25CA2 PO
--- NOTE | 2019-09-26 02:27 | ECWPNPC ---
PATIENT NAME: DELIA BLOUNT : 1960 GENDER: FEMALE VISIT DATE: 09/24/2019 DISCHARGE DATE: 09/24/19 1107 VISIT LOCKED DATE TIME: PHYSICIAN: BENIGNO HUGHES RESOURCE: BENIGNO HUGHES REASON FOR APPOINTMENT 1. POST OCCIPITAL NB HISTORY OF PRESENT ILLNESS HISTORY OF PRESENT ILLNESS: PAIN THE PATIENT DESCRIBES THE PAIN... 59-YEAR-OLD FEMALE IN FOR POST OCCIPITAL BLOCK FOLLOW-UP. PATIENT RATES HER PAIN PREPROCEDURE AT A 6-7 OUT OF 10 AND POSTPROCEDURE AT A 4 OUT OF 10 SHE STATES THIS LASTED FOR APPROXIMATELY 2 DAYS. 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 THE PATIENT STATES SHE HAD NECK SURGERY DONE TWICE, BUT THE PAIN, SPASMS, AND HEADACHES STILL PERSIST. FALL RISK SCREENING: SCREENING :NO FALLS REPORTED IN THE LAST YEAR CURRENT MEDICATIONS TAKING ESTRACE 0.1 MG/GM CREAM 0.5 GM VAGINAL TWICE A WEEK TAKING ESTRACE 1 MG TABLET 1 TABLET ORALLY ONCE DAILY TAKING PROBIOTIC 250 MG CAPSULE 1 CAPSULE ORALLY TWICE A DAY TAKING ALBUTEROL SULFATE HFA 108 (90 BASE) MCG/ACT AEROSOL SOLUTION 2 PUFFS NEEDED INHALATION EVERY 4 HRS TAKING OMEGA 3 1000 MG CAPSULE 1 CAPSULE ORALLY ONCE A DAY TAKING LUTEIN VISION BLEND CAPSULE ORALLY DAILY TAKING VITAMIN D3 5000 UNITS CAPSULE 1 CAPSULE ORALLY ONCE A DAY TAKING MEDICAL COMPRESSION STOCKINGS - MISCELLANEOUS DIRECTED TOPICALLY DAILY; ICD10: R60.0 TAKING VITAMIN B12 1000 MCG TABLET EXTENDED RELEASE 1 TABLET ORALLY ONCE A DAY TAKING PANTOPRAZOLE SODIUM 40 MG TABLET DELAYED RELEASE TAKE ONE TABLET BY MOUTH TWICE A DAY TAKING ACYCLOVIR 400 MG TABLET 1 TABLET ORALLY ONCE A DAY TAKING CYCLOBENZAPRINE HCL 10 MG TABLET 1 TABLET ORALLY FOR SPSMS AND PAIN THREE TIMES A DAY NEEDED MDD3 TAKING CYMBALTA 30 MG CAPSULE DELAYED RELEASE PARTICLES 1 CAPSULE ORALLY ONCE A DAY FOR PAIN TAKING LYRICA 150 MG CAPSULE 1 CAPSULE ORALLY TWICE DAILY TAKING TRAMADOL HCL 50 MG TABLET 1 TAB ORALLY EVERY 6 HOURS NEEDED PAIN MDD=4 TAKING RIZATRIPTAN BENZOATE 5 MG TABLET 1 TABLET ORALLY X1 NEEDED FOR MIGRAINE HEADACHE MAY REPEAT IN 2 HRS IF NEDED X2 TAKING CHOLESTYRAMINE 4 GM/DOSE POWDER 1 SCOOP ORALLY TWICE A DAY NOT-TAKING FLUTICASONE PROPIONATE HFA 110 MCG/ACT AEROSOL 1 PUFF INHALATION TWICE A DAY NOT-TAKING FLORANEX - PACKET 1 PACKET ORALLY DAILY NOT-TAKING RANITIDINE HCL 150 MG TABLET 1 TABLET AT BEDTIME ORALLY ONCE A DAY NOT-TAKING PEPPERMINT OIL 50 MG CAPSULE DELAYED RELEASE DIRECTED ORALLY DAILY NOT-TAKING BENADRYL 25 MG TABLET 1 TABLET ORALLY DAILY BEFORE BEDTIME, NOTES: ONCE IN A WHILE; NOT-TAKING ACYCLOVIR 800 MG TABLET 1 TABLET ORALLY TWICE A DAY NOT-TAKING ESTRACE 1 MG TABLET TAKE ONE TABLET BY MOUTH EVERY DAY NOT-TAKING LACTOBACILLUS - TABLET DIRECTED ORALLY TID NOT-TAKING PROTONIX 40 MG TAB 1 TAB ORALLY TWICE DAILY NOT-TAKING COLACE 100 MG CAPSULE 1 CAPSULE NEEDED ORALLY ONCE A DAY NOT-TAKING SIMETHICONE 80 MG TABLET CHEWABLE 1 TABLET AFTER MEALS AND AT BEDTIME NEEDED ORALLY FOUR TIMES A DAY NOT-TAKING ACYCLOVIR 400 MG TABLET 1 TABLET ORALLY TWICE A DAY NEEDED NOT-TAKING DICYCLOMINE HCL 20 MG TABLET 1 TABLET ORALLY FOUR TIMES A DAY NOT-TAKING ZANTAC 150 MG TABLET 1 TABLET ORALLY BID NOT-TAKING CHERATUSSIN AC 100-10 MG/5ML SYRUP 5 ML ORALLY TWICE DAILY NEEDED NOT-TAKING ZOFRAN 8 MG TABLET 1 TABLET ORALLY TWICE A DAY NOT-TAKING [id number] 50-325-40 MG TABLET 1 TABLET NEEDED ORALLY EVERY 4 HRS NOT-TAKING METOPROLOL SUCCINATE 25 MG CAPSULE ER 24 HOUR SPRINKLE 1 CAPSULE ORALLY ONCE A DAY FOR MIGRAINE PROPHYLAXIS NOT-TAKING ZOFRAN 4 MG TABLET 1 TABLETS ORALLY FOR NAUSEAS EVERY 6 HOURS NEEDED MDD3 NOT-TAKING CROMOLYN SODIUM 4 % SOLUTION 1 DROP INTO AFFECTED EYE OPHTHALMIC FOUR TIMES A DAY MEDICATION LIST REVIEWED AND RECONCILED WITH THE PATIENT PAST MEDICAL HISTORY ESOPHAGEAL REFLUX ASTHMA MIGRAINE HEADACHE ARTHRITIS ABNORMAL PAP SMEAR/SEVERAL JOEL 3 W/CRYO (DR. 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 FIBROMYALGIA STOMACH ULCER HORMONE REPLACEMENT THERAPY (POSTMENOPAUSAL) POSTMENOPAUSAL ATROPHIC VAGINITIS CERVICAL POST-LAMINECTOMY SYNDROME ALLERGIES SEA CRAB: ANAPHYLAXIS - ALLERGY LATEX: RASH - ALLERGY VANCOMYCIN HCL: HIVES/BREATHING PROBLEMS - ALLERGY DOXYCYCLINE CALCIUM: HIVES/BREATHING PROBLEMS - ALLERGY TOPAMAX: HEADACHE HORSE HAIR SURGICAL HISTORY HYSTERECTOMY, TOTAL WITH BSO-DYSPLASIA- C-3 1993 CHOLECYSTECTOMY 1993 BREAST BIOPSY C5-C6 FUSION ENDOSCOPY /COLONOSCOPY 2010, 2013 ENDOSCOPY-BENIGN FINDINGS, COLONOSCOPY - NONBLEEDING INTERNAL HEMORRHOIDS, DIVERTICULA IN RECTO-SIGMOID. PATH REPORT: FRAGMENTS OF COLONIC MUCOSA WITH INCREASED LYMPHOPLASMA INFILTRATES OF LAMINA PROPRIA 01/2014 ANTERIOR CERVICAL DISCECTOMY AND FUSION (ACDF) BY DR. NUSRAT THOMPSON [facility] 06/04/15 LEFT CTS RELEASE 09/13/[address] GAGNON 04/2018 LEFT HAND CARPAL TUNNEL RELEASE 2018 FAMILY HISTORY FATHER: ALIVE MOTHER: , ANEURYSM, OSTEOPOROSIS SIBLINGS: ALIVE, HEART DISEASE SON(S): ALIVE 1 BROTHER(S) , 2 SISTER(S) - HEALTHY. 2 SON(S) - HEALTHY. SOCIAL HISTORY GENERAL: TOBACCO USE ARE YOU A:FORMER SMOKER HOW LONG HAS IT BEEN SINCE YOU LAST SMOKED?5-10 YEARS HIV / HEP-C SCREENING HIV TEST OFFERED TO PATIENT:YES DATE OFFERED:10/25/2017 HEP-C TEST OFFERED TO PATIENT:YES DATE OFFERED:10/25/2017 TEST ACCEPTED:NO BROCHURE PROVIDED TO PATIENTNO OTHERS AT HOME: MICHELLE. EDUCATION LEVEL OF EDUCATION:HIGH SCHOOL DIET: REGULAR. LANGUAGE LANGUAGES SPOKEN:INDONESIAN OTHER-SETSWANA IS HER FIRST LANGUAGE DOMESTIC VIOLENCE STATUS:SINGLE DO YOU FEEL SAFE IN YOUR ENVIRONMENT?YES BMI CARE GOAL FOLLOW-UP ABOVE NORMAL BMI FOLLOW-UPGIVING ENCOURAGEMENT TO EXERCISE RECREATIONAL DRUG USE DRUG USE?NO EXERCISE: WALKING OCC. LEARNING BARRIERS / SPECIAL NEEDS CHANGE FROM LAST VISIT?NO BARRIERS TO LEARNING?NO HEARING IMPAIRED?YES VISION IMPAIRED?YES COGNITIVELY IMPAIRED?NO :HEARING AIDES :CORRECTIVE LENSES READINESS TO LEARN?YES LEARNING PREFERENCES?NO LEARNING CAPABILITIES PRESENT?YES EMOTIONAL BARRIERS?NO SPECIAL DEVICES?NO SENIOR INTEGRATION DEVELOPER NEEDED?NO PAIN CLINIC PFS, CLERGY, PUBLIC HEALTH REFERRALS PFS REFERRAL NEEDED?NO CLERGY REFERRAL NEEDED?NO PUBLIC HEALTH REFERRAL NEEDED?NO WAS THE PROVIDER NOTIFIED OF ANY PERTINENT INFO?YES HAS THE PATIENT BEEN EDUCATED REGARDING HIS/HER PLAN OF CARE?YES HAS THE PATIENT BEEN EDUCATED REGARDING PAIN, THE RISK FOR PAIN, THE IMPORTANCE OF EFFECTIVE PAIN MANAGEMENT, AND THE PAIN ASSESSMENT PROCESS?YES LATEX QUESTIONNAIRE LATEX ALLERGY : HAVE YOU EVER DEVELOPED ANY TYPE OF REACTION AFTER HANDLING LATEX PRODUCTS SUCH RUBBER GLOVES, CONDOMS, DIAPHRAGMS, BALLOONS, SOCKS, OR UNDERWEAR?NO LATEX ALLERGY : HAVE YOU EVER DEVELOPED ANY TYPE OF REACTION DURING OR AFTER DENTAL APPOINTMENT, VAGINAL/RECTAL EXAMINATION, SURGICAL PROCEDURE, OR ANY OTHER EXPOSURE?YES - PLEASE INDICATE :SURGICAL PROCEDURE LATEX RISK : HAVE YOU EVER HAD ANY DIFFICULTY BREATHING OR HIVES AFTER EATING OR HANDLING ANY FRUITS, OR VEGETABLES; SUCH KIWI, BANANAS, STONE FRUITS, OR CHESTNUTSNO LATEX RISK : DO YOU HAVE A PREVIOUS PERSONAL HISTORY OF MORE THAN NINE SURGERIES, SPINA BIFIDA, OR REPEATED CATHERIZATIONS? YES - PLEASE INDICATE : > 9 SURGERIES LATEX RISK : ARE YOU FREQUENTLY EXPOSED TO LATEX PRODUCTS IN YOUR OCCUPATION?NO DATE ASKED : 05/22/2019 CAFFEINE CAFFEINE USE?NO ADVANCE DIRECTIVE ADVANCE DIRECTIVE DISCUSSED WITH PATIENT:YES 09/24/2019 PATIENT DECLINED HCP INFORMATION AND DECLINED ASSISTANCE WITH PAPERWORK. JS MARITAL STATUS: SINGLE, ENGAGED. ALCOHOL SCREENING DID YOU HAVE A DRINK CONTAINING ALCOHOL IN THE PAST YEAR?NO POINTS0 INTERPRETATIONNEGATIVE OCCUPATION: NOT WORKING. USED TO SMOKE FOR OVER 20 YRS ON/OFF WITH 3 CIGS/DAYREVIEWED WITH PATIENT 11/22/18 1447 JSREVIEWED WITH PATIENT 02/20/19 1545 JSREVIEWED WITH PATIENT 06/10/2019 1335 LASPRE-SCREENING COMPLETED 08/20/19 1556 JSREVIEWED WITH PATIENT 09/24/2019 1041 JS. HOSPITALIZATION/MAJOR DIAGNOSTIC PROCED[facility]07[facility]15 C-DIFF 08/14/17-08/18/17 REVIEW OF SYSTEMS REVIEWED BY: PROVIDER: ZACHARY ROMO-C . CONSTITUTIONAL: ANY CHANGE IN YOUR MEDICAL CONDITION? NO . CHILLS NO . FEVER NO . INFECTION: DO YOU HAVE NEW INFECTIONS? NO . DO YOU HAVE HISTORY OF MRSA? NO . MUSCULOSKELETAL: ANY NEW PATTERNS OF PAIN OR NUMBNESS? NO . GASTROENTEROLOGY: ANY NEW CHANGE IN BOWEL CONTROL? NO . GENITOURINARY: ANY NEW CHANGE IN BLADDER CONTROL? NO . IS THERE A CHANCE YOU COULD BE ? NO . HEMATOLOGY/LYMPH: DO YOU TAKE ANY BLOOD THINNERS? (FOR EXAMPLE- COUMADIN, PLAVIX, AGGRENOX, PLATEL, PRADAXA, OR XARELTO) NO . WHEN WAS YOUR LAST DOSE? DATE: TIME: . NEUROLOGY: HAVE YOU FALLEN IN THE PAST 12 MONTHS? NO . ANY NEW EXTREMITY NUMBNESS OR WEAKNESS? NO . CARDIOLOGY: DO YOU HAVE A PACEMAKER OR DEFIBRILLATOR? NO . RESPIRATORY: HAVE YOU BEEN SICK IN THE PAST WEEK? NO . FEVER NO . FLU LIKE SYMPTOMS? NO . COUGH NO . INTEGUMENTARY: DO YOU HAVE ANY RASHES OR OPEN SORES? NO . ALLERGIC/IMMUNO: ARE YOU ALLERGIC TO IV DYE? NO . ANY NEW ALLERGIES? NO . PSYCHIATRIC: DO YOU HAVE THOUGHTS OF HURTING YOURSELF OR SOMEONE ELSE? NO . ARE YOU ABUSED, NEGLECTED, OR IN AN UNSAFE ENVIRONMENT? NO . ENDOCRINOLOGY: ARE YOU DIABETIC? NO . OTHER: DO YOU NEED ANY PRESCRIPTIONS? NO . IF YES, PLEASE LIST: ____ . ANY NEW PROBLEMS WITH YOUR MEDICATIONS? NO . WHEN DID YOU LAST EAT? ____ . WHEN DID YOU LAST DRINK? ____ . WHAT DID YOU LAST DRINK? ____ . NAME OF PERSON DRIVING YOU HOME? ____ . DO YOU HAVE ANY OTHER QUESTIONS OR CONCERNS NO . VITAL SIGNS WT 172 LBS, HT 60 IN, BMI 33.59 INDEX, BP 111/63 MM HG, HR 73 /MIN, RR 16 /MIN, TEMP 98.5 F, OXYGEN SAT % 98%, SAFE IN ENV? (Y/N) YES, REVIEWED BY: WILDER. EXAMINATION GENERAL EXAMINATION: GENERALNO ACUTE DISTRESS, WELL NOURISHED AND HYDRATED. PSYCHAPPROPRIATE MOOD AND AFFECT . LUNGS:CLEAR TO AUSCULTATION BILATERALLY, NO WHEEZES, RHONCHI, RALES. HEART:NO MURMURS, REGULAR RATE AND RHYTHM. ASSESSMENTS SPONDYLOSIS OF CERVICAL REGION WITHOUT MYELOPATHY OR RADICULOPATHY - M47.812 (PRIMARY) TREATMENT SPONDYLOSIS OF CERVICAL REGION WITHOUT MYELOPATHY OR RADICULOPATHY INCREASE LYRICA CAPSULE, 150 MG, 1 CAPSULE, ORALLY, THREE TIMES DAILY, 30 DAYS, 90 CLINICAL NOTES: 59-YEAR-OLD FEMALE IN FOR POST OCCIPITAL NERVE BLOCK FOLLOW-UP. GIVEN PRESENTING SYMPTOMS AND RESULTS PHYSICAL EXAMINATION RECOMMENDED INCREASING LYRICA TO 150 MG 3 TIMES A DAY WITH FOLLOW-UP IN ONE MONTH TO DETERMINE EFFICACY TREATMENT. PATIENT HAS EXPRESSED UNDERSTANDING OF AND WAS IN AGREEMENT WITH TREATMENT PLAN. GIVEN TIME TO ASK QUESTIONS AND EXPRESS CONCERNS., ISTOP REGISTRY REVIEWED AND DEMONSTRATES COMPLLIANCE. (REF # [id number] ) BRINGS IN MEDICATIONS WHICH IS APPROPRIATE FOR WHAT WAS DISPENSED. RECENT URINE TOXICOLOGY REVIEWED. NO UNAUTHORIZED MEDICATIONS. NO ILLICIT SUBSTANCES AND PRESCRIBED MEDICATIONS WERE PRESENT. PROCEDURES PN WORKMANS' COMP OPINION IN YOUR OPINION, WAS THE INCIDENT THAT THE PATIENT DESCRIBED THE COMPETENT MEDICAL CAUSE OF THIS INJURY/ILLNESS? YES ARE THE PATIENT'S COMPLAINTS CONSISTENT WITH HIS/HER HISTORY OF THE INJURY/ILLNESS? YES IS THE PATIENT'S HISTORY OF THE INJURY/ILLNESS CONSISTENT WITH YOUR OBJECTIVE FINDING? YES WHAT IS THE PERCENTAGE OF TEMPORARY IMPAIRMENT? TOTAL = 100% IS THE PATIENT WORKING? NO DOCTOR ON SITE: GILBERTO ESCOBAR MD PROCEDURE CODES FA211 ESTABILISHED PATIENT [facility] CHARGE DISPOSITION & COMMUNICATION FOLLOW UP 4 WEEKS (REASON: NECK PAIN, MEDICATION INCREASE) ELECTRONICALLY SIGNED BY CLARISSA PACKER ON 09/25/2019 AT 08:43 AM EST DISCLAIMER : THIS IS A VISIT SUMMARY EXTRACTED FROM THE [email or web address] CHART. IT IS NOT A COPY OF THE [facility] PROGRESS NOTE. MARY
== END ==
LOC: M PAIN 10:00
PROVIDERS: ATTEND Family Medicine
DX: M47.812 Spondylosis without myelopathy or radiculopathy, cervical region (principal)

== ENCOUNTER → 2019-10-22 | Outpatient (CLI) | payer OTHER ==
[~2019-10-22] MED LIST changes: -MONT10TA2 PO; +MONT10TA4 PO
--- NOTE | 2019-10-24 03:34 | ECWPNPC ---
PATIENT NAME: DELIA BLOUNT : 1960 GENDER: FEMALE VISIT DATE: 10/22/2019 DISCHARGE DATE: 10/22/19 1058 VISIT LOCKED DATE TIME: PHYSICIAN: BENIGNO HUGHES RESOURCE: BENIGNO HUGHES REASON FOR APPOINTMENT 1. W/C NECK PAIN, MEDS HISTORY OF PRESENT ILLNESS HISTORY OF PRESENT ILLNESS: PAIN THE PATIENT DESCRIBES THE PAIN... 59-YEAR-OLD FEMALE IN FOR WORKMEN'S COMP. CHRONIC PAIN FOLLOW-UP. SHE RATES HER PAIN CURRENTLY AT A 6 OUT OF 10 AND DESCRIBES IT ACHING, SHARP, BURNING, STABBING, SORE, SHOOTING, AND TENDER. SHE WOULD LIKE TO DISCUSS TRIGGER POINTS FOR HER NECK AND SHOULDERS BILATERALLY. 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 THE PATIENT STATES SHE HAD NECK SURGERY DONE TWICE, BUT THE PAIN, SPASMS, AND HEADACHES STILL PERSIST. FALL RISK SCREENING: SCREENING :NO FALLS REPORTED IN THE LAST YEAR CURRENT MEDICATIONS TAKING ESTRACE 0.1 MG/GM CREAM 0.5 GM VAGINAL TWICE A WEEK TAKING PROBIOTIC 250 MG CAPSULE 1 CAPSULE ORALLY TWICE A DAY TAKING ALBUTEROL SULFATE HFA 108 (90 BASE) MCG/ACT AEROSOL SOLUTION 2 PUFFS NEEDED INHALATION EVERY 4 HRS TAKING OMEGA 3 1000 MG CAPSULE 1 CAPSULE ORALLY ONCE A DAY TAKING LUTEIN VISION BLEND CAPSULE ORALLY DAILY TAKING VITAMIN D3 5000 UNITS CAPSULE 1 CAPSULE ORALLY ONCE A DAY TAKING MEDICAL COMPRESSION STOCKINGS - MISCELLANEOUS DIRECTED TOPICALLY DAILY; ICD10: R60.0 TAKING VITAMIN B12 1000 MCG TABLET EXTENDED RELEASE 1 TABLET ORALLY ONCE A DAY TAKING ACYCLOVIR 400 MG TABLET 1 TABLET ORALLY ONCE A DAY TAKING CYCLOBENZAPRINE HCL 10 MG TABLET 1 TABLET ORALLY FOR SPSMS AND PAIN THREE TIMES A DAY NEEDED MDD3 TAKING CYMBALTA 30 MG CAPSULE DELAYED RELEASE PARTICLES 1 CAPSULE ORALLY ONCE A DAY FOR PAIN TAKING TRAMADOL HCL 50 MG TABLET 1 TAB ORALLY EVERY 6 HOURS NEEDED PAIN MDD=4 TAKING RIZATRIPTAN BENZOATE 5 MG TABLET 1 TABLET ORALLY X1 NEEDED FOR MIGRAINE HEADACHE MAY REPEAT IN 2 HRS IF NEDED X2 TAKING CHOLESTYRAMINE 4 GM/DOSE POWDER 1 SCOOP ORALLY TWICE A DAY TAKING LYRICA 150 MG CAPSULE 1 CAPSULE ORALLY THREE TIMES DAILY TAKING PANTOPRAZOLE SODIUM 40 MG TABLET DELAYED RELEASE TAKE ONE TABLET BY MOUTH TWICE A DAY ORALLY BID NOT-TAKING ESTRACE 1 MG TABLET 1 TABLET ORALLY ONCE DAILY, NOTES: ON ESTRACE 0.5MG DAILY NOT-TAKING FLUTICASONE PROPIONATE HFA 110 MCG/ACT AEROSOL 1 PUFF INHALATION TWICE A DAY NOT-TAKING FLORANEX - PACKET 1 PACKET ORALLY DAILY NOT-TAKING RANITIDINE HCL 150 MG TABLET 1 TABLET AT BEDTIME ORALLY ONCE A DAY NOT-TAKING PEPPERMINT OIL 50 MG CAPSULE DELAYED RELEASE DIRECTED ORALLY DAILY NOT-TAKING BENADRYL 25 MG TABLET 1 TABLET ORALLY DAILY BEFORE BEDTIME, NOTES: ONCE IN A WHILE; NOT-TAKING ACYCLOVIR 800 MG TABLET 1 TABLET ORALLY TWICE A DAY NOT-TAKING ESTRACE 1 MG TABLET TAKE ONE TABLET BY MOUTH EVERY DAY NOT-TAKING LACTOBACILLUS - TABLET DIRECTED ORALLY TID NOT-TAKING PROTONIX 40 MG TAB 1 TAB ORALLY TWICE DAILY NOT-TAKING COLACE 100 MG CAPSULE 1 CAPSULE NEEDED ORALLY ONCE A DAY NOT-TAKING SIMETHICONE 80 MG TABLET CHEWABLE 1 TABLET AFTER MEALS AND AT BEDTIME NEEDED ORALLY FOUR TIMES A DAY NOT-TAKING ACYCLOVIR 400 MG TABLET 1 TABLET ORALLY TWICE A DAY NEEDED NOT-TAKING DICYCLOMINE HCL 20 MG TABLET 1 TABLET ORALLY FOUR TIMES A DAY NOT-TAKING ZANTAC 150 MG TABLET 1 TABLET ORALLY BID NOT-TAKING CHERATUSSIN AC 100-10 MG/5ML SYRUP 5 ML ORALLY TWICE DAILY NEEDED NOT-TAKING ZOFRAN 8 MG TABLET 1 TABLET ORALLY TWICE A DAY NOT-TAKING [id number] 50-325-40 MG TABLET 1 TABLET NEEDED ORALLY EVERY 4 HRS NOT-TAKING METOPROLOL SUCCINATE 25 MG CAPSULE ER 24 HOUR SPRINKLE 1 CAPSULE ORALLY ONCE A DAY FOR MIGRAINE PROPHYLAXIS NOT-TAKING ZOFRAN 4 MG TABLET 1 TABLETS ORALLY FOR NAUSEAS EVERY 6 HOURS NEEDED MDD3 NOT-TAKING CROMOLYN SODIUM 4 % SOLUTION 1 DROP INTO AFFECTED EYE OPHTHALMIC FOUR TIMES A DAY DISCONTINUED ALPRAZOLAM 1 MG TABLET 1 TABLET ORALLY ONCE DAILY NEEDED DISCONTINUED ESTRACE MEDICATION LIST REVIEWED AND RECONCILED WITH THE PATIENT PAST MEDICAL HISTORY ESOPHAGEAL REFLUX ASTHMA MIGRAINE HEADACHE ARTHRITIS ABNORMAL PAP SMEAR/SEVERAL JOEL 3 W/[facility] (DR. 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 FIBROMYALGIA STOMACH ULCER HORMONE REPLACEMENT THERAPY (POSTMENOPAUSAL) POSTMENOPAUSAL ATROPHIC VAGINITIS CERVICAL POST-LAMINECTOMY SYNDROME ALLERGIES SEA CRAB: ANAPHYLAXIS - ALLERGY LATEX: RASH - ALLERGY VANCOMYCIN HCL: HIVES/BREATHING PROBLEMS - ALLERGY DOXYCYCLINE CALCIUM: HIVES/BREATHING PROBLEMS - ALLERGY TOPAMAX: HEADACHE HORSE HAIR SURGICAL HISTORY HYSTERECTOMY, TOTAL WITH BSO-DYSPLASIA- C-3 1993 CHOLECYSTECTOMY 1993 BREAST BIOPSY C5-C6 FUSION ENDOSCOPY /COLONOSCOPY 2010, 2013 ENDOSCOPY-BENIGN FINDINGS, COLONOSCOPY - NONBLEEDING INTERNAL HEMORRHOIDS, DIVERTICULA IN RECTO-SIGMOID. PATH REPORT: FRAGMENTS OF COLONIC MUCOSA WITH INCREASED LYMPHOPLASMA INFILTRATES OF LAMINA PROPRIA 01/2014 ANTERIOR CERVICAL DISCECTOMY AND FUSION (ACDF) BY DR. NUSRAT THOMPSON [facility] 06/04/15 LEFT CTS RELEASE 09/13/[address] GAGNON 04/2018 LEFT HAND CARPAL TUNNEL RELEASE 2018 FAMILY HISTORY FATHER: ALIVE MOTHER: , ANEURYSM, OSTEOPOROSIS SIBLINGS: ALIVE, HEART DISEASE SON(S): ALIVE 1 BROTHER(S) , 2 SISTER(S) - HEALTHY. 2 SON(S) - HEALTHY. SOCIAL HISTORY GENERAL: TOBACCO USE ARE YOU A:FORMER SMOKER HOW LONG HAS IT BEEN SINCE YOU LAST SMOKED?5-10 YEARS HIV / HEP-C SCREENING HIV TEST OFFERED TO PATIENT:YES DATE OFFERED:10/25/2017 HEP-C TEST OFFERED TO PATIENT:YES DATE OFFERED:10/25/2017 TEST ACCEPTED:NO BROCHURE PROVIDED TO PATIENTNO OTHERS AT HOME: MICHELLE. EDUCATION LEVEL OF EDUCATION:HIGH SCHOOL DIET: REGULAR. LANGUAGE LANGUAGES SPOKEN:PARAGUAYAN OTHER-BELARUSIAN IS HER FIRST LANGUAGE DOMESTIC VIOLENCE STATUS:SINGLE DO YOU FEEL SAFE IN YOUR ENVIRONMENT?YES BMI CARE GOAL FOLLOW-UP ABOVE NORMAL BMI FOLLOW-UPGIVING ENCOURAGEMENT TO EXERCISE RECREATIONAL DRUG USE DRUG USE?NO EXERCISE: WALKING OCC. LEARNING BARRIERS / SPECIAL NEEDS CHANGE FROM LAST VISIT?NO BARRIERS TO LEARNING?NO HEARING IMPAIRED?YES VISION IMPAIRED?YES COGNITIVELY IMPAIRED?NO :HEARING AIDES :CORRECTIVE LENSES READINESS TO LEARN?YES LEARNING PREFERENCES?NO LEARNING CAPABILITIES PRESENT?YES EMOTIONAL BARRIERS?NO SPECIAL DEVICES?NO PRODUCTION MACHINIST NEEDED?NO PAIN CLINIC PFS, CLERGY, PUBLIC HEALTH REFERRALS PFS REFERRAL NEEDED?NO CLERGY REFERRAL NEEDED?NO PUBLIC HEALTH REFERRAL NEEDED?NO WAS THE PROVIDER NOTIFIED OF ANY PERTINENT INFO?YES HAS THE PATIENT BEEN EDUCATED REGARDING HIS/HER PLAN OF CARE?YES HAS THE PATIENT BEEN EDUCATED REGARDING PAIN, THE RISK FOR PAIN, THE IMPORTANCE OF EFFECTIVE PAIN MANAGEMENT, AND THE PAIN ASSESSMENT PROCESS?YES LATEX QUESTIONNAIRE LATEX ALLERGY : HAVE YOU EVER DEVELOPED ANY TYPE OF REACTION AFTER HANDLING LATEX PRODUCTS SUCH RUBBER GLOVES, CONDOMS, DIAPHRAGMS, BALLOONS, SOCKS, OR UNDERWEAR?NO LATEX ALLERGY : HAVE YOU EVER DEVELOPED ANY TYPE OF REACTION DURING OR AFTER DENTAL APPOINTMENT, VAGINAL/RECTAL EXAMINATION, SURGICAL PROCEDURE, OR ANY OTHER EXPOSURE?YES - PLEASE INDICATE :SURGICAL PROCEDURE DATE ASKED : 05/22/2019 LATEX RISK : HAVE YOU EVER HAD ANY DIFFICULTY BREATHING OR HIVES AFTER EATING OR HANDLING ANY FRUITS, OR VEGETABLES; SUCH KIWI, BANANAS, STONE FRUITS, OR CHESTNUTSNO LATEX RISK : DO YOU HAVE A PREVIOUS PERSONAL HISTORY OF MORE THAN NINE SURGERIES, SPINA BIFIDA, OR REPEATED CATHERIZATIONS? YES - PLEASE INDICATE : > 9 SURGERIES LATEX RISK : ARE YOU FREQUENTLY EXPOSED TO LATEX PRODUCTS IN YOUR OCCUPATION?NO CAFFEINE CAFFEINE USE?NO ADVANCE DIRECTIVE ADVANCE DIRECTIVE DISCUSSED WITH PATIENT:YES PATIENT DECLINED HCP INFORMATION AND DECLINED ASSISTANCE WITH PAPERWORK. MARITAL STATUS: SINGLE, ENGAGED. ALCOHOL SCREENING DID YOU HAVE A DRINK CONTAINING ALCOHOL IN THE PAST YEAR?NO POINTS0 INTERPRETATIONNEGATIVE OCCUPATION: NOT WORKING. USED TO SMOKE FOR OVER 20 YRS ON/OFF WITH 3 CIGS/DAYREVIEWED WITH PATIENT 11/22/18 1447 JSREVIEWED WITH PATIENT 02/20/19 1545 JSREVIEWED WITH PATIENT 06/10/2019 1335 LASPRE-SCREENING COMPLETED 08/20/19 1556 JSREVIEWED WITH PATIENT 09/24/2019 1041 JS. HOSPITALIZATION/MAJOR DIAGNOSTIC PROCEDURE ACDF SURGERY, [facility] 925/15-06/07/15 C-DIFF 08/14/17-08/18/17 REVIEW OF SYSTEMS REVIEWED BY: PROVIDER: ZACHARY HUGHES AUTOMATIC DOOR MECHANIC-C . CONSTITUTIONAL: ANY CHANGE IN YOUR MEDICAL CONDITION? NO . CHILLS NO . FEVER NO . INFECTION: DO YOU HAVE NEW INFECTIONS? NO . DO YOU HAVE HISTORY OF MRSA? NO . MUSCULOSKELETAL: ANY NEW PATTERNS OF PAIN OR NUMBNESS? NO . GASTROENTEROLOGY: ANY NEW CHANGE IN BOWEL CONTROL? NO . GENITOURINARY: ANY NEW CHANGE IN BLADDER CONTROL? NO . IS THERE A CHANCE YOU COULD BE ? NO . HEMATOLOGY/LYMPH: DO YOU TAKE ANY BLOOD THINNERS? (FOR EXAMPLE- COUMADIN, PLAVIX, AGGRENOX, PLATEL, PRADAXA, OR XARELTO) NO . WHEN WAS YOUR LAST DOSE? DATE: TIME: . NEUROLOGY: HAVE YOU FALLEN IN THE PAST 12 MONTHS? NO . ANY NEW EXTREMITY NUMBNESS OR WEAKNESS? NO . CARDIOLOGY: DO YOU HAVE A PACEMAKER OR DEFIBRILLATOR? NO . RESPIRATORY: HAVE YOU BEEN SICK IN THE PAST WEEK? NO . FEVER NO . FLU LIKE SYMPTOMS? NO . COUGH NO . INTEGUMENTARY: DO YOU HAVE ANY RASHES OR OPEN SORES? NO . ALLERGIC/IMMUNO: ARE YOU ALLERGIC TO IV DYE? NO . ANY NEW ALLERGIES? NO . PSYCHIATRIC: DO YOU HAVE THOUGHTS OF HURTING YOURSELF OR SOMEONE ELSE? NO . ARE YOU ABUSED, NEGLECTED, OR IN AN UNSAFE ENVIRONMENT? NO . ENDOCRINOLOGY: ARE YOU DIABETIC? NO . OTHER: DO YOU NEED ANY PRESCRIPTIONS? NO . IF YES, PLEASE LIST: ____ . ANY NEW PROBLEMS WITH YOUR MEDICATIONS? NO . WHEN DID YOU LAST EAT? ____ . WHEN DID YOU LAST DRINK? ____ . WHAT DID YOU LAST DRINK? ____ . NAME OF PERSON DRIVING YOU HOME? ____ . DO YOU HAVE ANY OTHER QUESTIONS OR CONCERNS NO . VITAL SIGNS WT 174 LBS, HT 60 IN, BMI 33.98 INDEX, BP 114/56 MM HG, HR 72 /MIN, RR 18 /MIN, TEMP 98.0 F, OXYGEN SAT % 97, SAFE IN ENV? (Y/N) Y, REVIEWED BY: FLOR. EXAMINATION GENERAL EXAMINATION: GENERALNO ACUTE DISTRESS, WELL NOURISHED AND HYDRATED. PSYCHAPPROPRIATE MOOD AND AFFECT . NECK:POINT TENDER BILATERAL NECK AND SHOULDERS, SURROUNDING SKIN SHOWS NO ERYTHEMA, ECCHYMOSIS, INCREASED WARMTH, AND/OR SKIN ERUPTIONS NOTED. . LUNGS:CLEAR TO AUSCULTATION BILATERALLY, NO WHEEZES, RHONCHI, RALES. HEART:NO MURMURS, REGULAR RATE AND RHYTHM. ASSESSMENTS MYALGIA, OTHER SITE - M79.18 (PRIMARY) TREATMENT MYALGIA, OTHER SITE NOTES: BILATERAL NECK AND SHOULDER TRIGGER POINT. 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 FOLLOW-UP. GIVEN PRESENTING SYMPTOMS AND RESULTS OF PHYSICAL EXAMINATION RECOMMENDED BILATERAL NECK AND SHOULDER TRIGGER POINT INJECTIONS WITH POSTPROCEDURAL FOLLOW-UP. PATIENT HAS EXPRESSED UNDERSTANDING OF AND WAS IN AGREEMENT WITH TREATMENT PLAN. GIVEN TIME TO ASK QUESTIONS AND EXPRESS CONCERNS., [employer]STOP REGISTRY REVIEWED AND DEMONSTRATES COMPLLIANCE. (REF # [id number] ) BRINGS IN MEDICATIONS WHICH IS APPROPRIATE FOR WHAT WAS DISPENSED. RECENT URINE TOXICOLOGY REVIEWED. NO UNAUTHORIZED MEDICATIONS. NO ILLICIT SUBSTANCES AND PRESCRIBED MEDICATIONS WERE PRESENT. PROCEDURE CODES FA211 ESTABILISHED PATIENT [facility] CHARGE DISPOSITION & COMMUNICATION FOLLOW UP POSTPROCEDURE (REASON: BILATERAL NECK AND SHOULDER TRIGGER POINT) ELECTRONICALLY SIGNED BY CLARISSA PACKER ON 10/23/2019 AT 08:27 AM EST DISCLAIMER : THIS IS A VISIT SUMMARY EXTRACTED FROM THE [employer] CHART. IT IS NOT A COPY OF THE [employer] PROGRESS NOTE. BERRYD
== END ==
LOC: M PAIN 10:15
PROVIDERS: ATTEND Family Medicine
DX: M79.18 Myalgia, other site (principal)

== ENCOUNTER 2019-11-19 09:42 | Emergency (ER) | payer OTHER ==
[~2019-11-19] VITALS: Ht 154.9 cm; Wt 78.5 kg
[2019-11-19] MEDS ORDERED: ALBU8.5H (09:52)
[2019-11-19] MEDS ORDERED: FLUT1INH2 (09:52)
[2019-11-19] MEDS ORDERED: AMOX875T (09:52)
[2019-11-19] MEDS ORDERED: IPRATROPIUM 0.5MG/ALBUTEROL 2.5MG INH SOL UD 3ML (DUONEB)(J7620) NEB ONE (11:00)
--- NOTE | 2019-11-19 11:30 | REP ---
PA and lateral chest: Comparison is 10/29/2015. The lung hernandez are clear. The cardiac size is normal. The pham, mediastinum, and skeletal structures are unremarkable. There is a cervical spine stabilization plate, unchanged. There are surgical clips in the abdominal right upper quadrant, unchanged. Impression: Negative PA and lateral chest. There is no interval change. Electronically Signed by Jamie Srinivasan MD 11/19/2019 11:22 A
[2019-11-19 11:43] LABS: INFLUENZA A AMPLIFICATION NEGATIVE (NEGATIVE); INFLUENZA B AMPLIFICATION POSITIVE (NEGATIVE)
[2019-11-19] MEDS ORDERED: OSEL75CA PO (12:06)
[2019-11-19] MEDS ORDERED: TESS100C PO (12:08)
[2019-11-19 12:13] VITALS: BP 129/75
== END 2019-11-19 12:15 | disposition home or self-care (01) ==
LOC: M ED 09:42
DX: J10.89 Influenza due to other identified influenza virus with other manifestations (principal); J45.909 Unspecified asthma, uncomplicated; M79.7 Fibromyalgia; Z79.2 Long term (current) use of antibiotics; Z79.899 Other long term (current) drug therapy; Z79.51 Long term (current) use of inhaled steroids; Z88.1 Allergy status to other antibiotic agents; Z91.013 Allergy to seafood; Z91.040 Latex allergy status; Z91.048 Other nonmedicinal substance allergy status

== ENCOUNTER 2019-11-24 07:59 | Emergency (ER) | payer OTHER ==
[~2019-11-24] VITALS: Ht 154.9 cm; Wt 79.0 kg
[~2019-11-24 07:59] MED LIST changes: +ALBU8.5H; +AMOX875T; +FLUT1INH2; +OSEL75CA PO; +TESS100C PO
[2019-11-24] MEDS ORDERED: DICY20TA11 (08:07)
[2019-11-24] MEDS ORDERED: GUAISYP9 (08:07)
[2019-11-24] MEDS ORDERED: ESTR1TAB (08:07)
[2019-11-24] MEDS ORDERED: BENZ-18 (08:07)
[2019-11-24] MEDS ORDERED: ACYC400T (08:07)
[2019-11-24] MEDS ORDERED: ONDANSETRON 4 MG ORAL DISINTEGRATING TAB (Q0162 PER 1MG) PO ONE (08:30)
[2019-11-24] MEDS ORDERED: ALBUTEROL 90 MCG/ACT 8GM HFA INHALER INH ONE (08:30)
--- NOTE | 2019-11-24 09:30 | REP ---
Chest x-ray: Two views. History: Cough. Flu. Shortness of breath. Comparison chest x-ray: November 19, 2019. Findings: There are clips in right upper quadrant of the abdomen and the patient is status post lower cervical discectomy and fusion plating. The lungs are symmetrically aerated and free of infiltrate. Pleural angles are sharp. Heart size is normal. The aorta somewhat tortuous. Impression: No active cardiopulmonary disease. Electronically Signed by Santiago Sebastian MD 11/24/2019 09:21 A
[2019-11-24] MEDS ORDERED: KETOROLAC 30 MG/ML VIAL (J1885) IV ONE (09:45)
[2019-11-24] MEDS ORDERED: ONDANSETRON 4MG/2ML VIAL (J2405) IV ONE (09:45)
[2019-11-24] MEDS ORDERED: NS 1,000 ML IV ONE (09:45)
[2019-11-24 10:06] LABS: BASO % 0.3 % (0.0-1.0); EOS % 0.6 % (0.0-3.0); HEMATOCRIT 41.1 % (36.0-47.0); HEMOGLOBIN 13.4 g/dl (12.0-15.5); LYMPH # 1.7 10^3/uL (1.5-5.0); LYMPH % 53.6 % (24.0-44.0); MEAN CORPUSCULAR HEMOGLOBIN 29.8 pg (27.0-33.0); MEAN CORPUSCULAR HGB CONC 32.6 g/dl (32.0-36.5); MEAN CORPUSCULAR VOLUME 91.5 fl (80.0-96.0); MONO # 0.2 10^3/uL (0.0-0.8); MONO % 4.7 % (0.0-5.0); NEUTROPHILS # 1.3 10^3/uL (1.5-8.5); NEUTROPHILS % 40.5 % (36.0-66.0); PLATELET COUNT, AUTOMATED 191 10^3/uL (150-450); RED BLOOD COUNT 4.49 10^6/uL (4.00-5.40); WHITE BLOOD COUNT 3.2 10^3/uL (4.0-10.0)
[2019-11-24 10:42] LABS: BLOOD UREA NITROGEN 8 MG/DL (7-18); CARBON DIOXIDE LEVEL 26 MEQ/L (21-32); CHLORIDE LEVEL 106 MEQ/L (98-107); CREATININE FOR GFR 0.56 MG/DL (0.55-1.30); GLOMERULAR FILTRATION RATE > 60.0 (>51); GLUCOSE, FASTING 96 MG/DL (70-100); POTASSIUM SERUM 4.4 MEQ/L (3.5-5.1); SODIUM LEVEL 140 MEQ/L (136-145)
[2019-11-24] MEDS ORDERED: methylPREDNISolone INJ 125 MG/2 ML VIAL (J2930) IV ONE (11:15)
[2019-11-24] MEDS ORDERED: PRED20TA PO (11:16)
[2019-11-24] MEDS ORDERED: ONDA8TAB8 PO (11:16)
[2019-11-24 12:05] VITALS: BP 107/59
== END 2019-11-24 12:17 | disposition home or self-care (01) ==
LOC: M ED 07:59
DX: J21.9 Acute bronchiolitis, unspecified (principal); J10.89 Influenza due to other identified influenza virus with other manifestations; J45.909 Unspecified asthma, uncomplicated; Z79.899 Other long term (current) drug therapy; Z88.1 Allergy status to other antibiotic agents; Z88.5 Allergy status to narcotic agent; Z88.8 Allergy status to other drugs, medicaments and biological substances; Z91.018 Allergy to other foods; Z91.040 Latex allergy status
CPT/HCPCS: 71046; 80048; 85025; 96361; 96374; 96375; 99284; J1885; J2405; J2930; Q0162

== ENCOUNTER → 2020-01-29 | Outpatient (CLI) | payer OTHER, MEDICAID ==
[~2020-01-29] MED LIST changes: +ACYC400T; +BENZ-18; +CYCL-707 PO; -CYCL10TA PO; +DICY20TA11; +ESTR1TAB; +GUAISYP9; +ONDA8TAB8 PO
--- NOTE | 2020-01-31 00:11 | ECWPNPC ---
PATIENT NAME: DELIA BLOUNT : 1960 GENDER: FEMALE VISIT DATE: 01/29/2020 DISCHARGE DATE: 01/29/20 1546 VISIT LOCKED DATE TIME: PHYSICIAN: GILBERTO MEDINA MD RESOURCE: GILBERTO MEDINA MD REASON FOR APPOINTMENT 1. W/C FU PER DR Poon HISTORY OF PRESENT ILLNESS HISTORY OF PRESENT ILLNESS: PAIN THE PATIENT DESCRIBES THE PAIN... FALL RISK SCREENING: SCREENING :NO FALLS REPORTED IN THE LAST YEAR GENERAL: 59-YEAR-OLD FEMALE PATIENT WITH A HISTORY OF CHRONIC NECK PAIN. THE PATIENT DESCRIBES THE PAIN SEVERE AND STABBING WITH A PAIN SCORE RANGING FROM 6-9/10 DEPENDING ON PHYSICAL ACTIVITY. 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 THE PATIENT STATES THAT THE RIGHT SIDE IS WORSE THAN THE LEFT; HOWEVER BOTH SIDES HAVE PAIN. THE PATIENT STATES THAT THE PAIN IS AFFECTING HER ACTIVITIES OF DAILY LIVING, SUCH GROCERY SHOPPING AND CLEANING. THE PATIENT IS HAVING DIFFICULTY MOVING THE NECK AND SLEEPING. THE PATIENT STATES THAT SHE IS HAVING PAIN IN THE NECK THAT RADIATES UP TOWARDS THE HEAD. PATIENT DENIES UNEXPLAINABLE WEIGHT LOSS, FEVER, CHILLS, NEW CHANGES ON HER URINARY OR BOWEL CONTROL. CURRENT MEDICATIONS TAKING ESTRACE 0.1 MG/GM CREAM 0.5 GM VAGINAL TWICE A WEEK TAKING ALBUTEROL SULFATE HFA 108 (90 BASE) MCG/ACT AEROSOL SOLUTION 2 PUFFS NEEDED INHALATION EVERY 4 HRS TAKING OMEGA 3 1000 MG CAPSULE 1 CAPSULE ORALLY ONCE A DAY TAKING LUTEIN VISION BLEND CAPSULE ORALLY DAILY TAKING VITAMIN D3 5000 UNITS CAPSULE 1 CAPSULE ORALLY ONCE A DAY TAKING MEDICAL COMPRESSION STOCKINGS - MISCELLANEOUS DIRECTED TOPICALLY DAILY; ICD10: R60.0 TAKING VITAMIN B12 1000 MCG TABLET EXTENDED RELEASE 1 TABLET ORALLY ONCE A DAY TAKING ACYCLOVIR 400 MG TABLET 1 TABLET ORALLY ONCE A DAY TAKING CHOLESTYRAMINE 4 GM/DOSE POWDER 1 SCOOP ORALLY TWICE A DAY TAKING PANTOPRAZOLE SODIUM 40 MG TABLET DELAYED RELEASE TAKE ONE TABLET BY MOUTH TWICE A DAY ORALLY BID TAKING RIZATRIPTAN BENZOATE 5 MG TABLET 1 TABLET ORALLY X1 NEEDED FOR MIGRAINE HEADACHE MAY REPEAT IN 2 HRS IF NEDED X2 TAKING GUAIFENESIN 400 MG TABLET 1 TABLET NEEDED ORALLY EVERY 4 HOURS NEEDED COUGH, NOTES: NOT TO EXCEED 2.4G IN 24 HOURS TAKING TRAMADOL HCL 50 MG TABLET 1 TAB ORALLY EVERY 6 HOURS NEEDED PAIN MDD=4 TAKING CYMBALTA 30 MG CAPSULE DELAYED RELEASE PARTICLES 1 CAPSULE ORALLY ONCE A DAY FOR PAIN TAKING CYCLOBENZAPRINE HCL 10 MG TABLET 1 TABLET ORALLY FOR SPSMS AND PAIN THREE TIMES A DAY NEEDED MDD3 TAKING LYRICA 150 MG CAPSULE 1 CAPSULE ORALLY THREE TIMES DAILY TAKING PROBIOTIC 250 MG CAPSULE 1 CAPSULE ORALLY TWICE A DAY NOT-TAKING ESTRACE 1 MG TABLET 1 TABLET ORALLY ONCE DAILY, NOTES: ON ESTRACE 0.5MG DAILY NOT-TAKING FLUTICASONE PROPIONATE HFA 110 MCG/ACT AEROSOL 1 PUFF INHALATION TWICE A DAY NOT-TAKING FLORANEX - PACKET 1 PACKET ORALLY DAILY NOT-TAKING RANITIDINE HCL 150 MG TABLET 1 TABLET AT BEDTIME ORALLY ONCE A DAY NOT-TAKING PEPPERMINT OIL 50 MG CAPSULE DELAYED RELEASE DIRECTED ORALLY DAILY NOT-TAKING BENADRYL 25 MG TABLET 1 TABLET ORALLY DAILY BEFORE BEDTIME, NOTES: ONCE IN A WHILE; NOT-TAKING ACYCLOVIR 800 MG TABLET 1 TABLET ORALLY TWICE A DAY NOT-TAKING ESTRACE 1 MG TABLET TAKE ONE TABLET BY MOUTH EVERY DAY NOT-TAKING LACTOBACILLUS - TABLET DIRECTED ORALLY TID NOT-TAKING PROTONIX 40 MG TAB 1 TAB ORALLY TWICE DAILY NOT-TAKING COLACE 100 MG CAPSULE 1 CAPSULE NEEDED ORALLY ONCE A DAY NOT-TAKING SIMETHICONE 80 MG TABLET CHEWABLE 1 TABLET AFTER MEALS AND AT BEDTIME NEEDED ORALLY FOUR TIMES A DAY NOT-TAKING ACYCLOVIR 400 MG TABLET 1 TABLET ORALLY TWICE A DAY NEEDED NOT-TAKING DICYCLOMINE HCL 20 MG TABLET 1 TABLET ORALLY FOUR TIMES A DAY NOT-TAKING ZANTAC 150 MG TABLET 1 TABLET ORALLY BID NOT-TAKING CHERATUSSIN AC 100-10 MG/5ML SYRUP 5 ML ORALLY TWICE DAILY NEEDED NOT-TAKING ZOFRAN 8 MG TABLET 1 TABLET ORALLY TWICE A DAY NOT-TAKING VFLHZIZANC-PAMB-CKVZEIUD 50-325-40 MG TABLET 1 TABLET NEEDED ORALLY EVERY 4 HRS NOT-TAKING METOPROLOL SUCCINATE 25 MG CAPSULE ER 24 HOUR SPRINKLE 1 CAPSULE ORALLY ONCE A DAY FOR MIGRAINE PROPHYLAXIS NOT-TAKING ZOFRAN 4 MG TABLET 1 TABLETS ORALLY FOR NAUSEAS EVERY 6 HOURS NEEDED MDD3 NOT-TAKING CROMOLYN SODIUM 4 % SOLUTION 1 DROP INTO AFFECTED EYE OPHTHALMIC FOUR TIMES A DAY MEDICATION LIST REVIEWED AND RECONCILED WITH THE PATIENT PAST MEDICAL HISTORY ESOPHAGEAL REFLUX ASTHMA MIGRAINE HEADACHE ARTHRITIS ABNORMAL PAP SMEAR/SEVERAL JOEL 3 W/CRYO (DR. 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 FIBROMYALGIA STOMACH ULCER HORMONE REPLACEMENT THERAPY (POSTMENOPAUSAL) POSTMENOPAUSAL ATROPHIC VAGINITIS CERVICAL POST-LAMINECTOMY SYNDROME ALLERGIES SEA CRAB: ANAPHYLAXIS - ALLERGY LATEX: RASH - ALLERGY VANCOMYCIN HCL: HIVES/BREATHING PROBLEMS - ALLERGY DOXYCYCLINE CALCIUM: HIVES/BREATHING PROBLEMS - ALLERGY TOPAMAX: HEADACHE HORSE HAIR SURGICAL HISTORY HYSTERECTOMY, TOTAL WITH BSO-DYSPLASIA- C-3 1993 CHOLECYSTECTOMY 1993 BREAST BIOPSY C5-C6 FUSION ENDOSCOPY /COLONOSCOPY 2010, 2013 ENDOSCOPY-BENIGN FINDINGS, COLONOSCOPY - NONBLEEDING INTERNAL HEMORRHOIDS, DIVERTICULA IN RECTO-SIGMOID. PATH REPORT: FRAGMENTS OF COLONIC MUCOSA WITH INCREASED LYMPHOPLASMA INFILTRATES OF LAMINA PROPRIA 01/2014 ANTERIOR CERVICAL DISCECTOMY AND FUSION (ACDF) BY DR. NUSRAT THOMPSON, [facility] 06/04/15 LEFT CTS RELEASE 09/13/[address] GAGNON 04/2018 LEFT HAND CARPAL TUNNEL RELEASE 2018 FAMILY HISTORY FATHER: ALIVE MOTHER: , ANEURYSM, OSTEOPOROSIS SIBLINGS: ALIVE, HEART DISEASE SON(S): ALIVE 1 BROTHER(S) , 2 SISTER(S) - HEALTHY. 2 SON(S) - HEALTHY. SOCIAL HISTORY GENERAL: TOBACCO USE ARE YOU A:FORMER SMOKER HOW LONG HAS IT BEEN SINCE YOU LAST SMOKED?5-10 YEARS LATEX QUESTIONNAIRE LATEX ALLERGY : HAVE YOU EVER DEVELOPED ANY TYPE OF REACTION AFTER HANDLING LATEX PRODUCTS SUCH RUBBER GLOVES, CONDOMS, DIAPHRAGMS, BALLOONS, SOCKS, OR UNDERWEAR?NO LATEX ALLERGY : HAVE YOU EVER DEVELOPED ANY TYPE OF REACTION DURING OR AFTER DENTAL APPOINTMENT, VAGINAL/RECTAL EXAMINATION, SURGICAL PROCEDURE, OR ANY OTHER EXPOSURE?YES - PLEASE INDICATE :SURGICAL PROCEDURE LATEX RISK : HAVE YOU EVER HAD ANY DIFFICULTY BREATHING OR HIVES AFTER EATING OR HANDLING ANY FRUITS, OR VEGETABLES; SUCH KIWI, BANANAS, STONE FRUITS, OR CHESTNUTSNO LATEX RISK : DO YOU HAVE A PREVIOUS PERSONAL HISTORY OF MORE THAN NINE SURGERIES, SPINA BIFIDA, OR REPEATED CATHERIZATIONS? YES - PLEASE INDICATE : > 9 SURGERIES LATEX RISK : ARE YOU FREQUENTLY EXPOSED TO LATEX PRODUCTS IN YOUR OCCUPATION?NO DATE ASKED : 01/29/2020 BMI CARE GOAL FOLLOW-UP ABOVE NORMAL BMI FOLLOW-UPGIVING ENCOURAGEMENT TO EXERCISE ALCOHOL SCREENING DID YOU HAVE A DRINK CONTAINING ALCOHOL IN THE PAST YEAR?NO POINTS0 INTERPRETATIONNEGATIVE RECREATIONAL DRUG USE DRUG USE?NO CAFFEINE CAFFEINE USE?NO HIV / HEP-C SCREENING HIV TEST OFFERED TO PATIENT:YES DATE OFFERED:10/25/2017 HEP-C TEST OFFERED TO PATIENT:YES DATE OFFERED:10/25/2017 TEST ACCEPTED:NO BROCHURE PROVIDED TO PATIENTNO LANGUAGE LANGUAGES SPOKEN:AMHARIC OTHER-TAMAZIGHT IS HER FIRST LANGUAGE EDUCATION LEVEL OF EDUCATION:HIGH SCHOOL LEARNING BARRIERS / SPECIAL NEEDS CHANGE FROM LAST VISIT?NO BARRIERS TO LEARNING?NO HEARING IMPAIRED?YES VISION IMPAIRED?YES COGNITIVELY IMPAIRED?NO :HEARING AIDES :CORRECTIVE LENSES READINESS TO LEARN?YES LEARNING PREFERENCES?NO LEARNING CAPABILITIES PRESENT?YES EMOTIONAL BARRIERS?NO SPECIAL DEVICES?NO COUNTY ORDINARY NEEDED?NO DOMESTIC VIOLENCE STATUS:SINGLE DO YOU FEEL SAFE IN YOUR ENVIRONMENT?YES OCCUPATION: NOT WORKING. DIET: REGULAR. EXERCISE: WALKING OCC. MARITAL STATUS: SINGLE, ENGAGED. OTHERS AT HOME: FIANCEE. NEW PATIENT PAIN DIARY TODAY'S VISIT 01/29/2020 PATIENT DESCRIBES PAIN :ACHING, BURNING, HAVE IT ALL THE TIME, SHARP, STABBING, TENDER, THROBBING, SORE, SHOOTING FROM 0-10, WHAT LEVEL IS YOUR PAIN TODAY?7 PRECIPITATING FACTORS STRESS AND HOUSEWORK ALLEVIATING FACTORS HEAT, ICE, MEDS WORK OCCASIONALLY INTENSITY SCALE REVIEWED PAIN CLINIC PFS, CLERGY, PUBLIC HEALTH REFERRALS PFS REFERRAL NEEDED?NO CLERGY REFERRAL NEEDED?NO PUBLIC HEALTH REFERRAL NEEDED?NO WAS THE PROVIDER NOTIFIED OF ANY PERTINENT INFO?YES HAS THE PATIENT BEEN EDUCATED REGARDING HIS/HER PLAN OF CARE?YES HAS THE PATIENT BEEN EDUCATED REGARDING PAIN, THE RISK FOR PAIN, THE IMPORTANCE OF EFFECTIVE PAIN MANAGEMENT, AND THE PAIN ASSESSMENT PROCESS?YES ADVANCE DIRECTIVE ADVANCE DIRECTIVE DISCUSSED WITH PATIENT:YES PATIENT DECLINED HCP INFORMATION AND DECLINED ASSISTANCE WITH PAPERWORK. USED TO SMOKE FOR OVER 20 YRS ON/OFF WITH 3 CIGS/DAYREVIEWED WITH PATIENT 11/22/18 1447 JS. HOSPITALIZATION/MAJOR DIAGNOSTIC PROCEDURE ACDF SURGERY, [facility] 925/15-06/07/15 C-DIFF 08/14/17-08/18/17 REVIEW OF SYSTEMS REVIEWED BY: PROVIDER: GILBERTO MEDINA MD . CONSTITUTIONAL: ANY CHANGE IN YOUR MEDICAL CONDITION? NO . CHILLS NO . FEVER NO . INFECTION: DO YOU HAVE NEW INFECTIONS? NO . DO YOU HAVE HISTORY OF MRSA? NO . MUSCULOSKELETAL: ANY NEW PATTERNS OF PAIN OR NUMBNESS? NO . GASTROENTEROLOGY: ANY NEW CHANGE IN BOWEL CONTROL? NO . GENITOURINARY: ANY NEW CHANGE IN BLADDER CONTROL? NO . IS THERE A CHANCE YOU COULD BE ? NO . HEMATOLOGY/LYMPH: DO YOU TAKE ANY BLOOD THINNERS? (FOR EXAMPLE- COUMADIN, PLAVIX, AGGRENOX, PLATEL, PRADAXA, OR XARELTO) NO . WHEN WAS YOUR LAST DOSE? DATE: TIME: . NEUROLOGY: HAVE YOU FALLEN IN THE PAST 12 MONTHS? NO . ANY NEW EXTREMITY NUMBNESS OR WEAKNESS? NO . CARDIOLOGY: DO YOU HAVE A PACEMAKER OR DEFIBRILLATOR? NO . RESPIRATORY: HAVE YOU BEEN SICK IN THE PAST WEEK? NO . FEVER NO . FLU LIKE SYMPTOMS? NO . COUGH NO . INTEGUMENTARY: DO YOU HAVE ANY RASHES OR OPEN SORES? NO . ALLERGIC/IMMUNO: ARE YOU ALLERGIC TO IV DYE? NO . ANY NEW ALLERGIES? NO . PSYCHIATRIC: DO YOU HAVE THOUGHTS OF HURTING YOURSELF OR SOMEONE ELSE? NO . ARE YOU ABUSED, NEGLECTED, OR IN AN UNSAFE ENVIRONMENT? NO . ENDOCRINOLOGY: ARE YOU DIABETIC? NO . OTHER: DO YOU NEED ANY PRESCRIPTIONS? NO . IF YES, PLEASE LIST: ____ . ANY NEW PROBLEMS WITH YOUR MEDICATIONS? NO . WHEN DID YOU LAST EAT? ____ . WHEN DID YOU LAST DRINK? ____ . WHAT DID YOU LAST DRINK? ____ . NAME OF PERSON DRIVING YOU HOME? ____ . DO YOU HAVE ANY OTHER QUESTIONS OR CONCERNS NO . VITAL SIGNS WT 178.0 LBS, HT 60 IN, BMI 34.76 INDEX, BP 136/65 MM HG, HR 79 /MIN, RR 18 /MIN, TEMP 97.9 F, OXYGEN SAT % 97%, SAFE IN ENV? (Y/N) Y, NA INITIALS AW 1351, REVIEWED BY: RANDEE. EXAMINATION GENERAL EXAMINATION: THE PATIENT IS ALERT, ORIENTED TIMES THREE AND COOPERATIVE. THERE ARE BANDS OF TISSUE WITH RESTRICTION OF MOVEMENT PRESENT AND TRIGGER POINTS ON THE RIGHT AND LEFT NECK. THE PATIENT HAS 5 DEGREES OF EXTENSION, 10 DEGREES OF FLEXION AND 5 DEGREES OF LATERAL ROTATION. MRI OF THE CERVICAL SPINE DATED 06/08/2014 SHOWS FUSION AT C5-C6. ASSESSMENTS MYALGIA, OTHER SITE - M79.18 (PRIMARY) CERVICALGIA - M54.2 TREATMENT OTHERS CONTINUE LYRICA CAPSULE, 150 MG, 1 CAPSULE, ORALLY FOR PAIN, THREE TIMES DAILY, 30 DAYS, 90, REFILLS 0 CLINICAL NOTES: WE DISCUSSED SEVERAL ALTERNATIVES WITH MS. BLOUNT REGARDING HER TREATMENT OPTIONS AND CARE. THE PATIENT HAS HAD TRIGGER POINTS IN THE PAST THAT HAVE GIVEN HER MANY MONTHS OF RELIEF. I AM GOING TO REQUEST TO DO TRIGGER POINTS ON HER NECK ON BOTH SIDES TO GIVE HER PAIN RELIEF AND INCREASE FUNCTIONALITY. WE ARE LOOKING FOR LONG LASTING PAIN RELIEF FOR THE PATIENT. THE PATIENT NEEDED A REFILL ON HER LYRICA. I REVIEWED THE ISTOP, REFERENCE NUMBER [id number]. I WENT OVER THE RISKS OF LYRICA. I REMINDED THE PATIENT TO BE VERY CAREFUL WITH THE MEDICATION. I REMINDED HER THAT SHE NEEDS TO KEEP IT IN A SAFE PLACE. THE PATIENT EXPRESSED UNDERSTANDING. THE PATIENT BROUGHT HER MEDICATION WITH HER TODAY. WE DID PILL COUNTING OF HER TRAMADOL. THE PATIENT WILL PREFORM A UTOX TODAY. THE PATIENT EXPRESSED UNDERSTANDING AND AGREED WITH THE PLAN. I, TREASURE MOTA, DOCUMENTED THE ABOVE INFORMATION ACTING A SCRIBE FOR DR. MEDINA. I HAVE REVIEWED THE ABOVE DOCUMENT, WRITTEN BY TREASURE MOTA, SCENIC ARTS SUPERVISOR, AND I VERIFY THAT IT IS ACCURATE . PROCEDURES PN WORKMANS' COMP OPINION IN YOUR OPINION, WAS THE INCIDENT THAT THE PATIENT DESCRIBED THE COMPETENT MEDICAL CAUSE OF THIS INJURY/ILLNESS? YES ARE THE PATIENT'S COMPLAINTS CONSISTENT WITH HIS/HER HISTORY OF THE INJURY/ILLNESS? YES IS THE PATIENT'S HISTORY OF THE INJURY/ILLNESS CONSISTENT WITH YOUR OBJECTIVE FINDING? YES WHAT IS THE PERCENTAGE OF TEMPORARY IMPAIRMENT? TOTAL = 100% . IS THE PATIENT WORKING? NO . DOCTOR ON SITE: GILBERTO ESCOBAR MD PROCEDURE CODES FA211 ESTABILISHED PATIENT [facility] CHARGE DISPOSITION & COMMUNICATION ELECTRONICALLY SIGNED BY GILBERTO MEDINA MD, MD ON 01/30/2020 AT 02:05 PM EDT DISCLAIMER : THIS IS A VISIT SUMMARY EXTRACTED FROM THE [employer] CHART. IT IS NOT A COPY OF THE [employer] PROGRESS NOTE. MARY
== END ==
LOC: M PAIN 13:45
PROVIDERS: ATTEND Anesthesiology
DX: M79.18 Myalgia, other site (principal); M54.2 Cervicalgia

== ENCOUNTER → 2020-03-20 | Outpatient (CLI) | payer OTHER, MEDICAID ==
[~2020-03-20] MED LIST changes: +PANT40TA29 PO; -PANT40TA3 PO
== END ==
LOC: M LABSMTC 10:04
PROVIDERS: ATTEND Anesthesiology
DX: Z03.818 Encounter for observation for suspected exposure to other biological agents ruled out (principal); Z11.59 Encounter for screening for other viral diseases

== ENCOUNTER → 2020-03-25 | Outpatient (CLI) | payer OTHER, MEDICAID ==
[~2020-03-25] MED LIST changes: +BUPIVACAINE HCL 0.25% 10ML VIAL As Ordered ONE; +BUPIVACAINE HCL 0.25% 30ML VIAL As Ordered ONE
--- NOTE | 2020-03-27 02:50 | ECWPNPC ---
PATIENT NAME: DELIA BLOUNT : 1960 GENDER: FEMALE VISIT DATE: 03/25/2020 DISCHARGE DATE: 03/25/20 0943 VISIT LOCKED DATE TIME: PHYSICIAN: GILBERTO MEDINA MD RESOURCE: GILBERTO MEDINA MD REASON FOR APPOINTMENT 1. TPI BILATERAL NECK W/C HISTORY OF PRESENT ILLNESS GENERAL: -. FALL RISK SCREENING: SCREENING :NO FALLS REPORTED IN THE LAST YEAR PAIN SCREENING: PATIENT HAS A COMPLAINT OF ACUTE OR CHRONIC PAIN :YES LOCATION OF PAIN:NECK, BOTH SHOULDERS, UPPER BACK INTENSITY OF PAIN (SCALE OF 1 TO 10):7 WHAT DOES YOUR PAIN FEEL LIKE:ACHING, BURNING, CONTINOUS, SHARP, STABBING, TENDER, SORE, SHOOTING DURATION:CONTINOUS, CONSTANT, STEADY, ALL DAY, AWAKENS FROM SLEEP PAIN IS INCREASED BY: BENDING NECK PAIN IS DECREASED BY: ICE AND HEAT DECREASES IT BUT DOESN'T TAKE PAIN AWAY NURSING NOTE: -. PAIN CENTER INTAKE QUESTIONS: DO YOU HAVE A HISTORY OF MRSA? :NO DO YOU TAKE A BLOOD THINNERS? :NO DO YOU HAVE ANY BLEEDING DISORDERS? :NO ANY NEW NUMBNESS OR WEAKNESS IN YOUR LEGS OR ARMS? :NO ANY PACEMAKER,DEFIBRILLATOR, OR DORSAL COLUMN STIMULATOR? :NO DO YOU HAVE ANY RASHES OR OPEN SORES? :NO ARE YOU ALLERGIC TO IV DYE? :NO DOES HAVE ALLERGY TO SEA CRAB ARE YOU DIABETIC? :NO ANY NEW PROBLEMS WITH YOUR MEDICATIONS? :NO HAVE YOU RECEIVED A VACCINE IN THE PAST 30 DAYS? :NO DO YOU PLAN TO RECEIVE A VACCINE IN THE NEXT 21 DAYS? :NO DO YOU TAKE ANY IMMUNOSUPPRESSIVE MEDICATIONS? :NO ANY HISTORY OF SEIZURES? :NO ANY HISTORY OF CARDIAC ISSUES OR EVENTS? :NO DO YOU HAVE SLEEP APNEA? :YES DO YOU WEAR A CPAP?NO ANY RECENT HEAD INJURY? :NO DO YOU HAVE ANY NEW INFECTIONS? :NO IS THERE A CHANCE YOU COULD BE ? :NO ARE YOU BREAST FEEDING? :NO WHEN DID YOU LAST EAT? : -189903/24/20 WHEN DID YOU LAST DRINK? : -219903/24/20 WHAT DID YOU LAST DRINK? : - NAME OF PERSON DRIVING YOU HOME? : [id number] DO YOU HAVE ANY OTHER QUESTIONS OR CONCERNS? : NONE CURRENT MEDICATIONS TAKING DAILY PROBIOTIC - CAPSULE DIRECTED ORALLY DAILY, NOTES: 192903/24/20 TAKING CYCLOBENZAPRINE HCL 10 MG TABLET 1 TABLET ORALLY FOR SPSMS AND PAIN THREE TIMES A DAY NEEDED MDD3, NOTES: 192903/24/20 TAKING LYRICA 150 MG CAPSULE 1 CAPSULE ORALLY FOR PAIN THREE TIMES DAILY, NOTES: 192903/24/20 TAKING TRAMADOL HCL 50 MG TABLET 1 TAB ORALLY EVERY 6 HOURS NEEDED PAIN MDD=4, NOTES: 192903/24/20 TAKING CYMBALTA 30 MG CAPSULE DELAYED RELEASE PARTICLES 1 CAPSULE ORALLY ONCE A DAY FOR PAIN, NOTES: 192903/24/20 TAKING ESTRACE 0.1 MG/GM CREAM 0.5 GM VAGINAL TWICE A WEEK, NOTES: 2-3 DAYS AGO TAKING ALBUTEROL SULFATE HFA 108 (90 BASE) MCG/ACT AEROSOL SOLUTION 2 PUFFS NEEDED INHALATION EVERY 4 HRS, NOTES: NONE RECENTLY TAKING OMEGA 3 1000 MG CAPSULE 1 CAPSULE ORALLY ONCE A DAY, NOTES: 129903/24/20 TAKING LUTEIN VISION BLEND CAPSULE ORALLY DAILY, NOTES: 129903/24/20 TAKING VITAMIN D3 5000 UNITS CAPSULE 1 CAPSULE ORALLY ONCE A DAY, NOTES: 129903/24/20 TAKING MEDICAL COMPRESSION STOCKINGS - MISCELLANEOUS DIRECTED TOPICALLY DAILY; ICD10: R60.0 TAKING ACYCLOVIR 400 MG TABLET 1 TABLET ORALLY ONCE A DAY/ NEEDED, NOTES: NONE RECENTLY TAKING PANTOPRAZOLE SODIUM 40 MG TABLET DELAYED RELEASE TAKE ONE TABLET BY MOUTH TWICE A DAY ORALLY BID, NOTES: 192903/24/20 TAKING CHOLESTYRAMINE 4 GM/DOSE POWDER 1 SCOOP ORALLY TWICE A DAY, NOTES: 192903/24/20 TAKING ESTRACE 1 MG TABLET 1 TABLET ORALLY ONCE DAILY, NOTES: ON ESTRACE 0.5MG DAILY 03/24/20 0800 TAKING BENADRYL 25 MG TABLET 1 TABLET ORALLY DAILY BEFORE BEDTIME/ NEEDED, NOTES: ONCE IN A WHILE;- NONE RECENTLY TAKING DICYCLOMINE HCL 20 MG TABLET 1 TABLET ORALLY FOUR TIMES A DAY, NOTES: 192903/24/20 NOT-TAKING VITAMIN B12 1000 MCG TABLET EXTENDED RELEASE 1 TABLET ORALLY ONCE A DAY NOT-TAKING RIZATRIPTAN BENZOATE 5 MG TABLET 1 TABLET ORALLY X1 NEEDED FOR MIGRAINE HEADACHE MAY REPEAT IN 2 HRS IF NEDED X2 NOT-TAKING GUAIFENESIN 400 MG TABLET 1 TABLET NEEDED ORALLY EVERY 4 HOURS NEEDED COUGH, NOTES: NOT TO EXCEED 2.4G IN 24 HOURS NOT-TAKING FLUTICASONE PROPIONATE HFA 110 MCG/ACT AEROSOL 1 PUFF INHALATION TWICE A DAY NOT-TAKING FLORANEX - PACKET 1 PACKET ORALLY DAILY NOT-TAKING RANITIDINE HCL 150 MG TABLET 1 TABLET AT BEDTIME ORALLY ONCE A DAY NOT-TAKING PEPPERMINT OIL 50 MG CAPSULE DELAYED RELEASE DIRECTED ORALLY DAILY NOT-TAKING ACYCLOVIR 800 MG TABLET 1 TABLET ORALLY TWICE A DAY NOT-TAKING LACTOBACILLUS - TABLET DIRECTED ORALLY TID NOT-TAKING PROTONIX 40 MG TAB 1 TAB ORALLY TWICE DAILY NOT-TAKING COLACE 100 MG CAPSULE 1 CAPSULE NEEDED ORALLY ONCE A DAY NOT-TAKING SIMETHICONE 80 MG TABLET CHEWABLE 1 TABLET AFTER MEALS AND AT BEDTIME NEEDED ORALLY FOUR TIMES A DAY NOT-TAKING ACYCLOVIR 400 MG TABLET 1 TABLET ORALLY TWICE A DAY NEEDED NOT-TAKING ZANTAC 150 MG TABLET 1 TABLET ORALLY BID NOT-TAKING CHERATUSSIN AC 100-10 MG/5ML SYRUP 5 ML ORALLY TWICE DAILY NEEDED NOT-TAKING ZOFRAN 8 MG TABLET 1 TABLET ORALLY TWICE A DAY NOT-TAKING GEIDTNEYEK-QUIR-QJWTNWIC 50-325-40 MG TABLET 1 TABLET NEEDED ORALLY EVERY 4 HRS NOT-TAKING METOPROLOL SUCCINATE 25 MG CAPSULE ER 24 HOUR SPRINKLE 1 CAPSULE ORALLY ONCE A DAY FOR MIGRAINE PROPHYLAXIS NOT-TAKING ZOFRAN 4 MG TABLET 1 TABLETS ORALLY FOR NAUSEAS EVERY 6 HOURS NEEDED MDD3 NOT-TAKING CROMOLYN SODIUM 4 % SOLUTION 1 DROP INTO AFFECTED EYE OPHTHALMIC FOUR TIMES A DAY DISCONTINUED ESTRACE 1 MG TABLET TAKE ONE TABLET BY MOUTH EVERY DAY , NOTES: DUPLICATE MEDICATION LIST REVIEWED AND RECONCILED WITH THE PATIENT PAST MEDICAL HISTORY ESOPHAGEAL REFLUX ASTHMA MIGRAINE HEADACHE ARTHRITIS ABNORMAL PAP SMEAR/SEVERAL JOEL 3 W/CRYO (DR. 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 FIBROMYALGIA STOMACH ULCER HORMONE REPLACEMENT THERAPY (POSTMENOPAUSAL) POSTMENOPAUSAL ATROPHIC VAGINITIS CERVICAL POST-LAMINECTOMY SYNDROME CDIFF ALLERGIES SEA CRAB: ANAPHYLAXIS - ALLERGY LATEX: RASH - ALLERGY VANCOMYCIN HCL: HIVES/BREATHING PROBLEMS - ALLERGY DOXYCYCLINE CALCIUM: HIVES/BREATHING PROBLEMS - ALLERGY TOPAMAX: HEADACHE HORSE HAIR SURGICAL HISTORY HYSTERECTOMY, TOTAL WITH BSO-DYSPLASIA- C-3 1993 CHOLECYSTECTOMY 1993 BREAST BIOPSY C5-C6 FUSION ENDOSCOPY /COLONOSCOPY 2010, 2013 ENDOSCOPY-BENIGN FINDINGS, COLONOSCOPY - NONBLEEDING INTERNAL HEMORRHOIDS, DIVERTICULA IN RECTO-SIGMOID. PATH REPORT: FRAGMENTS OF COLONIC MUCOSA WITH INCREASED LYMPHOPLASMA INFILTRATES OF LAMINA PROPRIA 01/2014 ANTERIOR CERVICAL DISCECTOMY AND FUSION (ACDF) BY GARCÍA COX 06/04/15 LEFT CTS RELEASE 09/13/[address] GAGNON 04/2018 LEFT HAND CARPAL TUNNEL RELEASE 2019 FAMILY HISTORY FATHER: ALIVE MOTHER: , ANEURYSM, OSTEOPOROSIS SIBLINGS: ALIVE, HEART DISEASE SON(S): ALIVE 1 BROTHER(S) , 2 SISTER(S) - HEALTHY. 2 SON(S) - HEALTHY. SOCIAL HISTORY GENERAL: TOBACCO USE ARE YOU A:FORMER SMOKER HOW LONG HAS IT BEEN SINCE YOU LAST SMOKED?5-10 YEARS LATEX QUESTIONNAIRE LATEX ALLERGY : HAVE YOU EVER DEVELOPED ANY TYPE OF REACTION AFTER HANDLING LATEX PRODUCTS SUCH RUBBER GLOVES, CONDOMS, DIAPHRAGMS, BALLOONS, SOCKS, OR UNDERWEAR?YES KNOWN LATEX ALLERY-RASH AND ITCHING LATEX ALLERGY : HAVE YOU EVER DEVELOPED ANY TYPE OF REACTION DURING OR AFTER DENTAL APPOINTMENT, VAGINAL/RECTAL EXAMINATION, SURGICAL PROCEDURE, OR ANY OTHER EXPOSURE?YES - PLEASE INDICATE :SURGICAL PROCEDURE LATEX RISK : HAVE YOU EVER HAD ANY DIFFICULTY BREATHING OR HIVES AFTER EATING OR HANDLING ANY FRUITS, OR VEGETABLES; SUCH KIWI, BANANAS, STONE FRUITS, OR CHESTNUTSNO LATEX RISK : DO YOU HAVE A PREVIOUS PERSONAL HISTORY OF MORE THAN NINE SURGERIES, SPINA BIFIDA, OR REPEATED CATHERIZATIONS? YES - PLEASE INDICATE : > 9 SURGERIES LATEX RISK : ARE YOU FREQUENTLY EXPOSED TO LATEX PRODUCTS IN YOUR OCCUPATION?NO DATE ASKED : 03/24/2020 BMI CARE GOAL FOLLOW-UP ABOVE NORMAL BMI FOLLOW-UPGIVING ENCOURAGEMENT TO EXERCISE ALCOHOL SCREENING DID YOU HAVE A DRINK CONTAINING ALCOHOL IN THE PAST YEAR?NO POINTS0 INTERPRETATIONNEGATIVE RECREATIONAL DRUG USE DRUG USE?NO CAFFEINE CAFFEINE USE?NO HIV / HEP-C SCREENING HIV TEST OFFERED TO PATIENT:YES DATE OFFERED:10/25/2017 HEP-C TEST OFFERED TO PATIENT:YES DATE OFFERED:10/25/2017 TEST ACCEPTED:NO BROCHURE PROVIDED TO PATIENTNO LANGUAGE LANGUAGES SPOKEN:[place] OTHER-FRISIAN IS HER FIRST LANGUAGE EDUCATION LEVEL OF EDUCATION:HIGH SCHOOL LEARNING BARRIERS / SPECIAL NEEDS CHANGE FROM LAST VISIT?NO BARRIERS TO LEARNING?NO HEARING IMPAIRED?YES :HEARING AIDES VISION IMPAIRED?YES :CORRECTIVE LENSES COGNITIVELY IMPAIRED?NO READINESS TO LEARN?YES LEARNING PREFERENCES?NO LEARNING CAPABILITIES PRESENT?YES EMOTIONAL BARRIERS?NO SPECIAL DEVICES?NO JOINER NEEDED?NO DOMESTIC VIOLENCE STATUS:SINGLE DO YOU FEEL SAFE IN YOUR ENVIRONMENT?YES OCCUPATION: NOT WORKING. DIET: REGULAR. EXERCISE: WALKING OCC. MARITAL STATUS: SINGLE, ENGAGED. OTHERS AT HOME: [place]. PAIN CLINIC PFS, CLERGY, PUBLIC HEALTH REFERRALS PFS REFERRAL NEEDED?NO CLERGY REFERRAL NEEDED?NO PUBLIC HEALTH REFERRAL NEEDED?NO WAS THE PROVIDER NOTIFIED OF ANY PERTINENT INFO?YES HAS THE PATIENT BEEN EDUCATED REGARDING HIS/HER PLAN OF CARE?YES HAS THE PATIENT BEEN EDUCATED REGARDING PAIN, THE RISK FOR PAIN, THE IMPORTANCE OF EFFECTIVE PAIN MANAGEMENT, AND THE PAIN ASSESSMENT PROCESS?YES ADVANCE DIRECTIVE ADVANCE DIRECTIVE DISCUSSED WITH PATIENT:YES 03/24/2020 PT DPES NOT HAVE ANY ADVANCED DIRECTIVES AND SHE DECLINED HCP INFORMATION AT THIS TIME. USED TO SMOKE FOR OVER 20 YRS ON/OFF WITH 3 CIGS/DAYREVIEWED WITH PATIENT 11/22/18 1447 JS. HOSPITALIZATION/MAJOR DIAGNOSTIC PROCEDURE ACDF SURGERY, [facility] 925/15-06/07/15 C-DIFF 08/14/17-08/18/17 VITAL SIGNS WT 173.4 LBS, HT 60 IN, BMI 33.86 INDEX, BP 124/79 MM HG, HR 66 /MIN, RR 16 /MIN, TEMP 97.7 F, OXYGEN SAT % 96%, SAFE IN ENV? (Y/N) YES, NA INITIALS SC 08:48, REVIEWED BY: TORRIE. EXAMINATION GENERAL EXAMINATION: THE PATIENT IS ALERT, ORIENTED TIMES THREE AND COOPERATIVE. HEART SHOWS REGULAR RHYTHM, NO MURMURS AND NO GALLOPS. LUNGS ARE CLEAR TO AUSCULTATION. ASSESSMENTS MYALGIA, OTHER SITE - M79.18 (PRIMARY) PROCEDURES PAIN NURSING RECORD PRE-PROCEDURE IV SITE N/A PROCEDURE IN ROOM N/A, PHYSICIAN IN ROOM 0919, START 09, FINISH 09, PHYSICIAN OUT OF ROOM 0927, OUT OF ROOM 0942, STEROID N/A, O2 RA, ECG N/A, PATIENT SHIELDED NO, SAFETY STRAP NO, PREP ALCOHOL DR. MEDINA, IV INFUSED N/A, DRESSING TEGADERM Rush RODRIGUEZ RN LOC: 914, 1. ALERT, ORIENTED 929 1. ALERT, ORIENTED, 42, 1. ALERT, ORIENTED RESP: 914, 1. REGULAR, NO DYSPNEA 929 1. REGULAR, NO DYSPNEA, 941, 1. REGULAR, NO DYSPNEA COLOR: 0915, 1. PINK 0930 1. PINK, 0942, 1. PINK SKIN: 0915, 1. WARM, DRY 0930 1. WARM, DRY, 0942, 1. WARM, DRY POSITION: 0915, 4. OTHER 0930 4. OTHER, 0942, 4. OTHER VITALS: 0933 134/63 72-16 100% DISCHARGE: POST PAIN /10, DRESSING SITE DRY AND INTACT, IV N/A, GAIT STEADY, TEACHING COMPLETED, PATIENT ACKNOWLEDGES UNDERSTANDING YES, PATIENT DISCHARGED AT 0942 PN WORKMANS' COMP OPINION IN YOUR OPINION, WAS THE INCIDENT THAT THE PATIENT DESCRIBED THE COMPETENT MEDICAL CAUSE OF THIS INJURY/ILLNESS? YES ARE THE PATIENT'S COMPLAINTS CONSISTENT WITH HIS/HER HISTORY OF THE INJURY/ILLNESS? YES IS THE PATIENT'S HISTORY OF THE INJURY/ILLNESS CONSISTENT WITH YOUR OBJECTIVE FINDING? YES WHAT IS THE PERCENTAGE OF TEMPORARY IMPAIRMENT? TOTAL = 100% . IS THE PATIENT WORKING? NO . DOCTOR ON SITE: GILBERTO ESCOBAR MD PN TRIGGER POINT INJECTION NO STEROIDS PRE PROCEDURE DIAGNOSIS 1. MYALGIA 2. PAIN AT BILATERAL NECK AREA POST PROCEDURE DIAGNOSIS 1. MYALGIA 2. PAIN AT BILATERAL NECK AREA PROCEDURE TRIGGER POINT INJECTION AT BILATERAL NECK AREA SURGEON DR. GILBERTO MEDINA CLAIM EXAMINER NONE ANESTHESIA LOCAL PRE PROCEDURE NOTE THE PATIENT HAS HISTORY OF CHRONIC PAIN AT RIGHT AND LEFT NECK AREA. I EVALUATED THE PATIENT AND REVIEWED THE CHART. THERE IS EVIDENCE OF BANDS OF TISSUE WITH RESTRICTION OF MOVEMENT AND PRESENCE OF TRIGGER POINT AT THE RIGHT AND LEFT NECK AREA. I WENT OVER THE RISKS, ALTERNATIVES, AND BENEFITS ASSOCIATED WITH THIS PROCEDURE. THE PATIENT WOULD LIKE TO PROCEED AND GAVE CONSENT TO PERFORM THE PROCEDURE. THE PATIENT DENIES UNEXPLAINABLE WEIGHT LOSS, FEVER, CHILLS, OR NEW CHANGES IN URINARY OR BOWEL CONTROL. THE PATIENT IS COVID-19 NEGATIVE DESCRIPTION OF PROCEDURE THE PATIENT WAS BROUGHT TO THE PROCEDURE ROOM AND PLACED IN THE SITTING POSITION. THE AREA WAS CLEANED WITH ALCOHOL. THE PROCEDURE WAS DONE USING ASEPTIC STERILE TECHNIQUES. I CHECKED LATERALITY AND THE LEVEL WHERE THE PROCEDURE WAS GOING TO BE PERFORMED WITH THE PATIENT AND THE SUPPORTING STAFF AT THE MOMENT OF THE TIME OUT IN THE PROCEDURE ROOM. USING A 25-GAUGE NEEDLE, TRIGGER POINTS WERE INJECTED INTO THE RIGHT AND LEFT NECK AREA WITH A TOTAL OF 40 ML OF BUPIVACAINE 0.25%. AGREED WITH THE PATIENT THE PROCEDURE WAS DONE WITHOUT STEROIDS. THERE WAS NO EVIDENCE OF BLOOD, PARESTHESIA OR CEREBROSPINAL FLUID DURING THE PROCEDURE. THE PATIENT WAS SENT TO THE RECOVERY ROOM. THE PATIENT WAS MOVING THE EXTREMITIES AND DOING WELL. THERE WAS NO COMPLICATION DURING THE PROCEDURE. EBL LESS THAN 5 ML POST PROCEDURE NOTE THE PROCEDURE DONE WAS DISCUSSED WITH THE PATIENT. THE PATIENT WILL BE SEEN IN A FOLLOW UP IN THE NEXT FEW WEEKS. I AM LOOKING FOR LONG LASTING PAIN RELIEF FOR THE PATIENT WITH THIS INTERVENTION. INSTRUCTIONS WERE GIVEN, QUESTIONS WERE ANSWERED, AND THE PATIENT EXPRESSED UNDERSTANDING AND AGREES WITH THE PLAN. I, TREASURE MOTA, DOCUMENTED THE ABOVE INFORMATION ACTING A SCRIBE FOR DR. MEDINA. I HAVE REVIEWED THE ABOVE DOCUMENT, WRITTEN BY TREASURE MOTA, AGRISCIENCE TECHNOLOGY INSTRUCTOR, AND I VERIFY THAT IT IS ACCURATE PROCEDURE CODES 22400 INJ TRIGGER POINT / MUSCL DISPOSITION & COMMUNICATION FOLLOW UP F/UP WITH STRUCTURAL ANALYSIS ENGINEER (REASON: W/C POST TPI BLAKE NECK) ELECTRONICALLY SIGNED BY GILBERTO MEDINA MD, ON 03/26/2020 AT 11:05 AM EDT DISCLAIMER : THIS IS A VISIT SUMMARY EXTRACTED FROM THE We CHART. IT IS NOT A COPY OF THE [employer] PROGRESS NOTE. MARY
== END ==
LOC: M PAIN 08:30
PROVIDERS: ATTEND Anesthesiology
DX: M79.18 Myalgia, other site (principal)

== ENCOUNTER → 2020-06-18 | Outpatient (CLI) | payer OTHER, MEDICAID ==
[~2020-06-18] MED LIST changes: -BUPIVACAINE HCL 0.25% 10ML VIAL As Ordered ONE; -BUPIVACAINE HCL 0.25% 30ML VIAL As Ordered ONE
--- NOTE | 2020-06-21 10:19 | ECWPNPC ---
PATIENT NAME: DELIA BLOUNT : 1960 GENDER: FEMALE VISIT DATE: 06/18/2020 DISCHARGE DATE: 06/18/20 1401 VISIT LOCKED DATE TIME: PHYSICIAN: BENIGNO HUGHES PHYSICIAN PAGER NO: ACTIVE RESOURCE: BENIGNO HUGHES REASON FOR APPOINTMENT 1. NECK PAIN HISTORY OF PRESENT ILLNESS DEPRESSION SCREENING: PHQ-2 (2015 EDITION) LITTLE INTEREST OR PLEASURE IN DOING THINGS?NOT AT ALL FEELING DOWN, DEPRESSED, OR HOPELESS?NOT AT ALL TOTAL SCORE0 59-YEAR-OLD FEMALE IN FOR CHRONIC PAIN FOLLOW-UP. SHE RATES HER PAIN CURRENTLY AT A 6 OUT OF 10 AND DESCRIBES IT ACHING, BURNING, SHARP, STABBING, SORE, AND TENDER. 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 THE PATIENT STATES SHE HAD NECK SURGERY DONE TWICE, BUT THE PAIN, SPASMS, AND HEADACHES STILL PERSIST. GENERAL: -. FALL RISK SCREENING: SCREENING :NO FALLS REPORTED IN THE LAST YEAR PAIN SCREENING: PATIENT HAS A COMPLAINT OF ACUTE OR CHRONIC PAIN :YES LOCATION OF PAIN:NECK INTENSITY OF PAIN (SCALE OF 1 TO 10):6 WHAT DOES YOUR PAIN FEEL LIKE:ACHING, BURNING, SHARP, STABBING, TENDER, SORE DURATION:CONTINOUS, ALL DAY, AWAKENS FROM SLEEP PAIN IS INCREASED BY:ACTIVITIES, OTHERS PATIENT STATES BENDING HER HEAD DOWN MAKES THE PAIN MORE SEVERE. PAIN IS DECREASED BY:OTHERS HEAT PAD HELPS TO REDUCE PAIN. NURSING NOTE: -. PAIN CENTER INTAKE QUESTIONS: DO YOU HAVE A HISTORY OF MRSA? :NO DO YOU TAKE A BLOOD THINNERS? :NO DO YOU HAVE ANY BLEEDING DISORDERS? :NO ANY NEW NUMBNESS OR WEAKNESS IN YOUR LEGS OR ARMS? :NO ANY PACEMAKER,DEFIBRILLATOR, OR DORSAL COLUMN STIMULATOR? :NO DO YOU HAVE ANY RASHES OR OPEN SORES? :NO ARE YOU ALLERGIC TO IV DYE? :NO ARE YOU DIABETIC? :NO ANY NEW PROBLEMS WITH YOUR MEDICATIONS? :NO HAVE YOU RECEIVED A VACCINE IN THE PAST 30 DAYS? :NO DO YOU PLAN TO RECEIVE A VACCINE IN THE NEXT 21 DAYS? :YES PATIENT INTENDS GETTING A FLU SHOT SOON. DO YOU NEED ANY PRESCRIPTION? :NO DO YOU TAKE ANY IMMUNOSUPPRESSIVE MEDICATIONS? :NO IS THERE A CHANCE YOU COULD BE ? :NO ARE YOU BREAST FEEDING? :NO CURRENT MEDICATIONS TAKING DAILY PROBIOTIC - CAPSULE DIRECTED ORALLY DAILY, NOTES: 192903/24/20 TAKING CYCLOBENZAPRINE HCL 10 MG TABLET 1 TABLET ORALLY FOR SPSMS AND PAIN THREE TIMES A DAY NEEDED MDD3, NOTES: 192903/24/20 TAKING CYMBALTA 30 MG CAPSULE DELAYED RELEASE PARTICLES 1 CAPSULE ORALLY ONCE A DAY FOR PAIN, NOTES: 192903/24/20 TAKING ESTRACE 0.1 MG/GM CREAM 0.5 GM VAGINAL TWICE A WEEK, NOTES: 2-3 DAYS AGO TAKING ALBUTEROL SULFATE HFA 108 (90 BASE) MCG/ACT AEROSOL SOLUTION 2 PUFFS NEEDED INHALATION EVERY 4 HRS, NOTES: NONE RECENTLY TAKING OMEGA 3 1000 MG CAPSULE 1 CAPSULE ORALLY ONCE A DAY, NOTES: 129903/24/20 TAKING LUTEIN VISION BLEND CAPSULE ORALLY DAILY, NOTES: 129903/24/20 TAKING VITAMIN D3 5000 UNITS CAPSULE 1 CAPSULE ORALLY ONCE A DAY, NOTES: 129903/24/20 TAKING MEDICAL COMPRESSION STOCKINGS - MISCELLANEOUS DIRECTED TOPICALLY DAILY; ICD10: R60.0 TAKING ACYCLOVIR 400 MG TABLET 1 TABLET ORALLY ONCE A DAY/ NEEDED, NOTES: NONE RECENTLY TAKING CHOLESTYRAMINE 4 GM/DOSE POWDER 1 SCOOP ORALLY TWICE A DAY, NOTES: 192903/24/20 TAKING ESTRACE 1 MG TABLET 1 TABLET ORALLY ONCE DAILY, NOTES: ON ESTRACE 0.5MG DAILY 03/24/20 0800 TAKING BENADRYL 25 MG TABLET 1 TABLET ORALLY DAILY BEFORE BEDTIME/ NEEDED, NOTES: ONCE IN A WHILE;- NONE RECENTLY TAKING DICYCLOMINE HCL 20 MG TABLET 1 TABLET ORALLY FOUR TIMES A DAY, NOTES: 192903/24/20 TAKING LYRICA 150 MG CAPSULE 1 CAPSULE ORALLY FOR PAIN THREE TIMES DAILY, NOTES: 192903/24/20 TAKING TRAMADOL HCL 50 MG TABLET 1 TAB ORALLY EVERY 6 HOURS NEEDED PAIN MDD=4, NOTES: 192903/24/20 TAKING PANTOPRAZOLE SODIUM 40 MG TABLET DELAYED RELEASE TAKE ONE TABLET BY MOUTH TWICE A DAY ORALLY BID, NOTES: 192903/24/20 TAKING FLORANEX - PACKET 1 PACKET ORALLY DAILY NOT-TAKING VITAMIN B12 1000 MCG TABLET EXTENDED RELEASE 1 TABLET ORALLY ONCE A DAY NOT-TAKING RIZATRIPTAN BENZOATE 5 MG TABLET 1 TABLET ORALLY X1 NEEDED FOR MIGRAINE HEADACHE MAY REPEAT IN 2 HRS IF NEDED X2 NOT-TAKING GUAIFENESIN 400 MG TABLET 1 TABLET NEEDED ORALLY EVERY 4 HOURS NEEDED COUGH, NOTES: NOT TO EXCEED 2.4G IN 24 HOURS NOT-TAKING FLUTICASONE PROPIONATE HFA 110 MCG/ACT AEROSOL 1 PUFF INHALATION TWICE A DAY NOT-TAKING RANITIDINE HCL 150 MG TABLET 1 TABLET AT BEDTIME ORALLY ONCE A DAY NOT-TAKING PEPPERMINT OIL 50 MG CAPSULE DELAYED RELEASE DIRECTED ORALLY DAILY NOT-TAKING ACYCLOVIR 800 MG TABLET 1 TABLET ORALLY TWICE A DAY NOT-TAKING LACTOBACILLUS - TABLET DIRECTED ORALLY TID NOT-TAKING PROTONIX 40 MG TAB 1 TAB ORALLY TWICE DAILY NOT-TAKING COLACE 100 MG CAPSULE 1 CAPSULE NEEDED ORALLY ONCE A DAY NOT-TAKING SIMETHICONE 80 MG TABLET CHEWABLE 1 TABLET AFTER MEALS AND AT BEDTIME NEEDED ORALLY FOUR TIMES A DAY NOT-TAKING ACYCLOVIR 400 MG TABLET 1 TABLET ORALLY TWICE A DAY NEEDED NOT-TAKING ZANTAC 150 MG TABLET 1 TABLET ORALLY BID NOT-TAKING CHERATUSSIN AC 100-10 MG/5ML SYRUP 5 ML ORALLY TWICE DAILY NEEDED NOT-TAKING ZOFRAN 8 MG TABLET 1 TABLET ORALLY TWICE A DAY NOT-TAKING [id number] 50-325-40 MG TABLET 1 TABLET NEEDED ORALLY EVERY 4 HRS NOT-TAKING METOPROLOL SUCCINATE 25 MG CAPSULE ER 24 HOUR SPRINKLE 1 CAPSULE ORALLY ONCE A DAY FOR MIGRAINE PROPHYLAXIS NOT-TAKING ZOFRAN 4 MG TABLET 1 TABLETS ORALLY FOR NAUSEAS EVERY 6 HOURS NEEDED MDD3 NOT-TAKING CROMOLYN SODIUM 4 % SOLUTION 1 DROP INTO AFFECTED EYE OPHTHALMIC FOUR TIMES A DAY MEDICATION LIST REVIEWED AND RECONCILED WITH THE PATIENT PAST MEDICAL HISTORY ESOPHAGEAL REFLUX ASTHMA MIGRAINE HEADACHE ARTHRITIS ABNORMAL PAP SMEAR/SEVERAL JOEL 3 W/CRYO (DR. 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 FIBROMYALGIA STOMACH ULCER HORMONE REPLACEMENT THERAPY (POSTMENOPAUSAL) POSTMENOPAUSAL ATROPHIC VAGINITIS CERVICAL POST-LAMINECTOMY SYNDROME CDIFF ALLERGIES SEA CRAB: ANAPHYLAXIS - ALLERGY LATEX: RASH - ALLERGY VANCOMYCIN HCL: HIVES/BREATHING PROBLEMS - ALLERGY DOXYCYCLINE CALCIUM: HIVES/BREATHING PROBLEMS - ALLERGY TOPAMAX: HEADACHE HORSE HAIR SURGICAL HISTORY HYSTERECTOMY, TOTAL WITH BSO-DYSPLASIA- C-3 1993 CHOLECYSTECTOMY 1993 BREAST BIOPSY C5-C6 FUSION ENDOSCOPY /COLONOSCOPY 2010, 2013 ENDOSCOPY-BENIGN FINDINGS, COLONOSCOPY - NONBLEEDING INTERNAL HEMORRHOIDS, DIVERTICULA IN RECTO-SIGMOID. PATH REPORT: FRAGMENTS OF COLONIC MUCOSA WITH INCREASED LYMPHOPLASMA INFILTRATES OF LAMINA PROPRIA 01/2014 ANTERIOR CERVICAL DISCECTOMY AND FUSION (ACDF) BY DR. NUSRAT THOMPSON [facility] 06/04/15 LEFT CTS RELEASE 09/13/[address] GAGNON 04/2018 LEFT HAND CARPAL TUNNEL RELEASE 2019 FAMILY HISTORY FATHER: ALIVE MOTHER: , ANEURYSM, OSTEOPOROSIS SIBLINGS: ALIVE, HEART DISEASE SON(S): ALIVE 1 BROTHER(S) , 2 SISTER(S) - HEALTHY. 2 SON(S) - HEALTHY. SOCIAL HISTORY GENERAL: TOBACCO USE ARE YOU A:FORMER SMOKER HOW LONG HAS IT BEEN SINCE YOU LAST SMOKED?5-10 YEARS LATEX QUESTIONNAIRE LATEX ALLERGY : HAVE YOU EVER DEVELOPED ANY TYPE OF REACTION AFTER HANDLING LATEX PRODUCTS SUCH RUBBER GLOVES, CONDOMS, DIAPHRAGMS, BALLOONS, SOCKS, OR UNDERWEAR?YES KNOWN LATEX ALLERY-RASH AND ITCHING LATEX ALLERGY : HAVE YOU EVER DEVELOPED ANY TYPE OF REACTION DURING OR AFTER DENTAL APPOINTMENT, VAGINAL/RECTAL EXAMINATION, SURGICAL PROCEDURE, OR ANY OTHER EXPOSURE?YES - PLEASE INDICATE :SURGICAL PROCEDURE LATEX RISK : HAVE YOU EVER HAD ANY DIFFICULTY BREATHING OR HIVES AFTER EATING OR HANDLING ANY FRUITS, OR VEGETABLES; SUCH KIWI, BANANAS, STONE FRUITS, OR CHESTNUTSNO LATEX RISK : DO YOU HAVE A PREVIOUS PERSONAL HISTORY OF MORE THAN NINE SURGERIES, SPINA BIFIDA, OR REPEATED CATHERIZATIONS? YES - PLEASE INDICATE : > 9 SURGERIES LATEX RISK : ARE YOU FREQUENTLY EXPOSED TO LATEX PRODUCTS IN YOUR OCCUPATION?NO DATE ASKED : 06/18/2020 BMI CARE GOAL FOLLOW-UP ABOVE NORMAL BMI FOLLOW-UPGIVING ENCOURAGEMENT TO EXERCISE ALCOHOL SCREENING DID YOU HAVE A DRINK CONTAINING ALCOHOL IN THE PAST YEAR?NO POINTS0 INTERPRETATIONNEGATIVE RECREATIONAL DRUG USE DRUG USE?NO CAFFEINE CAFFEINE USE?NO HIV / HEP-C SCREENING HIV TEST OFFERED TO PATIENT:YES DATE OFFERED:10/25/2017 HEP-C TEST OFFERED TO PATIENT:YES DATE OFFERED:10/25/2017 TEST ACCEPTED:NO BROCHURE PROVIDED TO PATIENTNO LANGUAGE LANGUAGES SPOKEN:INDONESIAN OTHER-BULGARIAN IS HER FIRST LANGUAGE EDUCATION LEVEL OF EDUCATION:HIGH SCHOOL LEARNING BARRIERS / SPECIAL NEEDS CHANGE FROM LAST VISIT?NO BARRIERS TO LEARNING?NO HEARING IMPAIRED?YES VISION IMPAIRED?YES COGNITIVELY IMPAIRED?NO :HEARING AIDES :CORRECTIVE LENSES READINESS TO LEARN?YES LEARNING PREFERENCES?NO LEARNING CAPABILITIES PRESENT?YES EMOTIONAL BARRIERS?NO SPECIAL DEVICES?NO BREAKFAST COOK NEEDED?NO DOMESTIC VIOLENCE STATUS:SINGLE DO YOU FEEL SAFE IN YOUR ENVIRONMENT?YES OCCUPATION: NOT WORKING. DIET: REGULAR. EXERCISE: WALKING OCC. MARITAL STATUS: SINGLE, ENGAGED. OTHERS AT HOME: [place]. PAIN CLINIC PFS, CLERGY, PUBLIC HEALTH REFERRALS PFS REFERRAL NEEDED?NO CLERGY REFERRAL NEEDED?NO PUBLIC HEALTH REFERRAL NEEDED?NO WAS THE PROVIDER NOTIFIED OF ANY PERTINENT INFO?YES HAS THE PATIENT BEEN EDUCATED REGARDING HIS/HER PLAN OF CARE?YES HAS THE PATIENT BEEN EDUCATED REGARDING PAIN, THE RISK FOR PAIN, THE IMPORTANCE OF EFFECTIVE PAIN MANAGEMENT, AND THE PAIN ASSESSMENT PROCESS?YES ADVANCE DIRECTIVE ADVANCE DIRECTIVE DISCUSSED WITH PATIENT:YES 06/18/2020 PT DPES NOT HAVE ANY ADVANCED DIRECTIVES AND SHE DECLINED HCP INFORMATION AT THIS TIME. USED TO SMOKE FOR OVER 20 YRS ON/OFF WITH 3 CIGS/DAYREVIEWED WITH PATIENT 11/22/18 1447 JS. HOSPITALIZATION/MAJOR DIAGNOSTIC PROCEDURE ACDF SURGERY, [facility] 925/15-06/07/15 C-DIFF 08/14/17-08/18/17 REVIEW OF SYSTEMS CONSTITUTIONAL: ANY RECENT FEVER NO . CHILLS NO . WEIGHT CHANGE OF UNKNOWN REASONS NO . GASTROENTEROLOGY: NEW UNEXPLAINABLE CHANGES IN BOWEL CONTROL NO . CONSTIPATION NO . GENITOURINARY: ANY NEW CHANGE IN BLADDER CONTROL? NO . NEUROLOGY: NEW ONSET DIZZINESS OR NEUROLOGICAL CHANGES NOT MENTIONED NO . NEW NUMBNESS OR PAIN PATTERNS NOT MENTIONED AND PERTINENT TO TODAY'S VISIT NO . CARDIOLOGY: NEW CHEST PRESSURE NO . NEW CHEST PAIN NO . RESPIRATORY: UNEXPLAINABLE COUGH NO . NEW SHORTNESS OF BREATH NO . VITAL SIGNS WT 173.4 LBS, HT 60 IN, BMI 33.86 INDEX, BP 118/64 MM HG, HR 90 /MIN, RR 16 /MIN, TEMP 97.4 F, OXYGEN SAT % 96%, NA INITIALS SC 13:14, REVIEWED BY: ABDIRASHID MAXWELL CMA. ASSESSMENTS MY[facility]GIA, OTHER SITE - M79.18 (PRIMARY) TREATMENT MYALGIA, OTHER SITE CLINICAL NOTES: 59-YEAR-OLD FEMALE IN FOR WORKER'S COMP. CHRONIC PAIN FOLLOW-UP. GIVEN PRESENTING SYMPTOMS DISCUSSED REPEAT TRIGGER POINT INJECTIONS WITH PATIENT AND SHE STATES THAT SHE WOULD LIKE TO WAIT AT THIS TIME GIVEN THE AARON VIRUS. WE'LL FOLLOW-UP IN 2 MONTHS. PATIENT HAS EXPRESSED UNDERSTANDING OF AND WAS IN AGREEMENT WITH TREATMENT PLAN. GIVEN TIME TO ASK QUESTIONS AND EXPRESS CONCERNS. , ISTOP REGISTRY REVIEWED AND DEMONSTRATES COMPLLIANCE. (REF # [id number] ) BRINGS IN MEDICATIONS WHICH IS APPROPRIATE FOR WHAT WAS DISPENSED. RECENT URINE TOXICOLOGY REVIEWED. NO UNAUTHORIZED MEDICATIONS. NO ILLICIT SUBSTANCES AND PRESCRIBED MEDICATIONS WERE PRESENT. PROCEDURES PN WORKMANS' COMP OPINION IN YOUR OPINION, WAS THE INCIDENT THAT THE PATIENT DESCRIBED THE COMPETENT MEDICAL CAUSE OF THIS INJURY/ILLNESS? YES ARE THE PATIENT'S COMPLAINTS CONSISTENT WITH HIS/HER HISTORY OF THE INJURY/ILLNESS? YES IS THE PATIENT'S HISTORY OF THE INJURY/ILLNESS CONSISTENT WITH YOUR OBJECTIVE FINDING? YES WHAT IS THE PERCENTAGE OF TEMPORARY IMPAIRMENT? TOTAL = 100% IS THE PATIENT WORKING? NO DOCTOR ON SITE: GILBERTO ESCOBAR MD PREVENTIVE MEDICINE PAIN CLINIC TEACHING: THE PATIENT HAS BEEN EDUCATED REGARDING PAIN, THE RISK FOR PAIN, THE IMPORTANCE OF EFFECTIVE PAIN MANAGEMENT, AND THE PAIN ASSESSMENT PROCESS. : DISCUSSED CARE PLAN WITH PATIENT, PATIENT VERBALIZES UNDERSTANDING. PROCEDURE CODES FA211 ESTABILISHED PATIENT [facility] CHARGE DISPOSITION & COMMUNICATION FOLLOW UP 2 MONTHS (REASON: NECK PAIN) ELECTRONICALLY SIGNED BY CLARISSA PACKER ON 06/21/2020 AT 09:59 AM EDT DISCLAIMER : THIS IS A VISIT SUMMARY EXTRACTED FROM THE [employer] CHART. IT IS NOT A COPY OF THE [employer] PROGRESS NOTE. MARY
== END ==
LOC: M PAIN 13:30
PROVIDERS: ATTEND Family Medicine
DX: M79.18 Myalgia, other site (principal); K21.9 Gastro-esophageal reflux disease without esophagitis; J45.909 Unspecified asthma, uncomplicated; G43.909 Migraine, unspecified, not intractable, without status migrainosus; M79.7 Fibromyalgia; Z86.59 Personal history of other mental and behavioral disorders; Z87.891 Personal history of nicotine dependence; Z88.1 Allergy status to other antibiotic agents; Z88.8 Allergy status to other drugs, medicaments and biological substances; Z91.013 Allergy to seafood; Z91.040 Latex allergy status; Z91.09 Other allergy status, other than to drugs and biological substances; Z79.899 Other long term (current) drug therapy

== ENCOUNTER → 2020-06-23 | Outpatient (REF) | payer OTHER | LOC: M SFHCWAGY 17:08 | PROVIDERS: ATTEND Nurse Practitioner Family | DX: Z12.72 Encounter for screening for malignant neoplasm of vagina (principal) ==

== ENCOUNTER → 2020-06-23 | Outpatient (CLI) | payer OTHER ==
--- NOTE | 2020-06-24 08:58 | REPMRS ---
Patient History The patient states she had a clinical breast exam in 2019. No known family history of cancer. Benign excisional biopsy of the right breast, 1985. Taking unspecified hormones for 23 years. Digital Woman Screen Mammo: June 23, 2020 - Exam #: [id number] Bilateral CC and MLO view(s) were taken. Technologist: Barbara Saravia, Technologist Prior study comparison: June 18, 2019, bilateral digital woman screen mammo performed at [facility]. March 07, 2018, bilateral digital woman screen mammo performed at [facility]. March 06, 2017, digital woman screen mammo performed at [facility]. FINDINGS: There are scattered fibroglandular densities. The Volpara volumetric breast density category is:B. There has been no change in the appearance of the mammogram from the prior studies. There is a mild amount of scattered fibroglandular density which is fairly symmetric. There is no interval development of dominant mass, architectural distortion, or grouped microcalcification suggestive of malignancy. 3-D tomosynthesis shows no additional findings. Assessment: BI-RADS/ACR category 1 mammogram. Negative Mammogram. Recommendation Routine screening mammogram of both breasts in 1 year (for women over age 40). This patient's Lifetime Breast Cancer Risk is estimated at 5.5 %. This mammogram was interpreted with the aid of an FDA-approved computer-aided dectection system. Electronically Signed By: Regan Sebastian MD 06/24/20 0858
== END ==
LOC: M WHC 13:05
PROVIDERS: ATTEND Nurse Practitioner Family
DX: Z12.31 Encounter for screening mammogram for malignant neoplasm of breast (principal)

== ENCOUNTER → 2020-07-09 | Outpatient (REF) | payer OTHER | LOC: M LAB REF 13:34 | PROVIDERS: ATTEND Internal Medicine Gastroenterology | DX: R19.7 Diarrhea, unspecified (principal) ==

== ENCOUNTER → 2020-08-18 | Outpatient (CLI) | payer OTHER ==
[~2020-08-18] MED LIST changes: -MONT10TA4 PO; +MONT5TAB2 PO
--- NOTE | 2020-08-20 06:38 | ECWPNPC ---
PATIENT NAME: DELIA BLOUNT : 1960 GENDER: FEMALE VISIT DATE: 08/18/2020 DISCHARGE DATE: 08/18/20 1500 VISIT LOCKED DATE TIME: PHYSICIAN: BENIGNO HUGHES PHYSICIAN PAGER NO: ACTIVE RESOURCE: BENIGNO HUGHES REASON FOR APPOINTMENT 1. W/C NECK PAIN HISTORY OF PRESENT ILLNESS GENERAL: - 59-YEAR-OLD FEMALE IN FOR WORKER'S COMP. CHRONIC PAIN FOLLOW-UP. SHE RATES HER PAIN CURRENTLY AT A 6 OUT OF 10 AND DESCRIBES IT ACHING, BURNING, THROBBING, AND SHOOTING. PATIENT ADMITS TO INCREASED NECK PAIN WITH HEADACHES SHE HAS HAD TRIGGER POINT INJECTIONS IN THE PAST AND FOUND GOOD RELIEF WITH THEM SAID PROCEDURE HELPED PATIENT HAVE INCREASED FUNCTIONALITY AND DECREASED PAIN. WE WILL DISCUSS REPEAT PROCEDURES TODAY WITH GOALS OF DECREASED PAIN AND INCREASED FUNCTIONALITY. 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 THE PATIENT STATES SHE HAD NECK SURGERY DONE TWICE, BUT THE PAIN, SPASMS, AND HEADACHES STILL PERSIST. FALL RISK SCREENING: SCREENING :NO FALLS REPORTED IN THE LAST YEAR PAIN SCREENING: PATIENT HAS A COMPLAINT OF ACUTE OR CHRONIC PAIN :YES LOCATION OF PAIN:NECK, RIGHT SHOULDER INTENSITY OF PAIN (SCALE OF 1 TO 10):6 WHAT DOES YOUR PAIN FEEL LIKE:ACHING, BURNING, THROBBING, SHOOTING DURATION:CONTINOUS, CONSTANT PAIN IS INCREASED BY:ACTIVITIES PAIN IS DECREASED BY:USE OF PAIN MEDICATIONS TREATMENT/MEDICATIONS USED TO MANAGE PAIN:OPIOIDS LEVEL OF RELIEF FROM PAIN TREATMENTS IN THE PAST:50% PAIN HAS INTERFERED WITH THE FOLLOWING:BATHING/DRESSING, WALKING ABILITY, HOUSEWORK, SLEEP, TRANSPORTATION, TOILETING NURSING NOTE: -. PAIN CENTER INTAKE QUESTIONS: DO YOU HAVE A HISTORY OF MRSA? :NO DO YOU TAKE A BLOOD THINNERS? :NO DO YOU HAVE ANY BLEEDING DISORDERS? :NO ANY NEW NUMBNESS OR WEAKNESS IN YOUR LEGS OR ARMS? :NO ANY PACEMAKER,DEFIBRILLATOR, OR DORSAL COLUMN STIMULATOR? :NO DO YOU HAVE ANY RASHES OR OPEN SORES? :NO ARE YOU ALLERGIC TO IV DYE? :NO ARE YOU DIABETIC? :NO ANY NEW PROBLEMS WITH YOUR MEDICATIONS? :NO HAVE YOU RECEIVED A VACCINE IN THE PAST 30 DAYS? :NO DO YOU PLAN TO RECEIVE A VACCINE IN THE NEXT 21 DAYS? :NO DO YOU NEED ANY PRESCRIPTION? :NO DO YOU TAKE ANY IMMUNOSUPPRESSIVE MEDICATIONS? :NO IS THERE A CHANCE YOU COULD BE ? :NO ARE YOU BREAST FEEDING? :NO CURRENT MEDICATIONS TAKING ALBUTEROL SULFATE HFA 108 (90 BASE) MCG/ACT AEROSOL SOLUTION 2 PUFFS NEEDED INHALATION EVERY 4 HRS TAKING OMEGA 3 1000 MG CAPSULE 1 CAPSULE ORALLY ONCE A DAY TAKING LUTEIN VISION BLEND CAPSULE ORALLY DAILY TAKING VITAMIN D3 5000 UNITS CAPSULE 1 CAPSULE ORALLY ONCE A DAY TAKING MEDICAL COMPRESSION STOCKINGS - MISCELLANEOUS DIRECTED TOPICALLY DAILY; ICD10: R60.0 TAKING DICYCLOMINE HCL 20 MG TABLET 1 TABLET ORALLY FOUR TIMES A DAY TAKING FLORANEX - PACKET 1 PACKET ORALLY DAILY TAKING PANTOPRAZOLE SODIUM 40 MG TABLET DELAYED RELEASE TAKE ONE TABLET BY MOUTH TWICE A DAY ORALLY BID TAKING DAILY PROBIOTIC - CAPSULE DIRECTED ORALLY DAILY TAKING ESTRACE 0.1 MG/GM CREAM 0.5 GM VAGINAL TWICE A WEEK TAKING ESTRACE 1 MG TABLET 1 TABLET ORALLY ONCE DAILY TAKING ACYCLOVIR 400 MG TABLET 1 TABLET ORALLY TWICE A DAY TAKING CHOLESTYRAMINE 4 GM/DOSE POWDER 1 SCOOP ORALLY TWICE A DAY TAKING DIPHENOXYLATE-ATROPINE 2.5-0.025 MG TABLET 1 TABLET NEEDED ORALLY FOUR TIMES A DAY TAKING FLUOCINOLONE ACETONIDE 0.025 % CREAM APPLY THIN LAYER TO AFFECTED AREAS ON BOTH LEGS EXTERNALLY TWICE A DAY NEEDED TAKING CETIRIZINE HCL 10 MG CAPSULE 1 CAP ORALLY QHS TAKING CYCLOBENZAPRINE HCL 10 MG TABLET 1 TABLET ORALLY FOR SPSMS AND PAIN THREE TIMES A DAY NEEDED MDD3 TAKING CYMBALTA 30 MG CAPSULE DELAYED RELEASE PARTICLES 1 CAPSULE ORALLY ONCE A DAY FOR PAIN TAKING TRAMADOL HCL 50 MG TABLET 1 TAB ORALLY EVERY 6 HOURS NEEDED PAIN MDD=4 TAKING LYRICA 150 MG CAPSULE 1 CAPSULE ORALLY FOR PAIN THREE TIMES DAILY TAKING RIZATRIPTAN BENZOATE 5 MG TABLET 1 TABLET ORALLY X1 NEEDED FOR MIGRAINE HEADACHE MAY REPEAT IN 2 HRS IF NEDED X2 NOT-TAKING BENADRYL 25 MG TABLET 1 TABLET ORALLY DAILY BEFORE BEDTIME/ NEEDED NOT-TAKING VOLTAREN 1 % GEL DIRECTED TRANSDERMAL FOUR TIMES DAILY NEEDED NOT-TAKING CIPRO 250 MG TABLET 1 TABLET ORALLY EVERY 12 HRS NOT-TAKING VITAMIN B12 1000 MCG TABLET EXTENDED RELEASE 1 TABLET ORALLY ONCE A DAY NOT-TAKING GUAIFENESIN 400 MG TABLET 1 TABLET NEEDED ORALLY EVERY 4 HOURS NEEDED COUGH, NOTES: NOT TO EXCEED 2.4G IN 24 HOURS NOT-TAKING FLUTICASONE PROPIONATE HFA 110 MCG/ACT AEROSOL 1 PUFF INHALATION TWICE A DAY NOT-TAKING RANITIDINE HCL 150 MG TABLET 1 TABLET AT BEDTIME ORALLY ONCE A DAY NOT-TAKING PEPPERMINT OIL 50 MG CAPSULE DELAYED RELEASE DIRECTED ORALLY DAILY NOT-TAKING ACYCLOVIR 800 MG TABLET 1 TABLET ORALLY TWICE A DAY NOT-TAKING LACTOBACILLUS - TABLET DIRECTED ORALLY TID NOT-TAKING PROTONIX 40 MG TAB 1 TAB ORALLY TWICE DAILY NOT-TAKING COLACE 100 MG CAPSULE 1 CAPSULE NEEDED ORALLY ONCE A DAY NOT-TAKING SIMETHICONE 80 MG TABLET CHEWABLE 1 TABLET AFTER MEALS AND AT BEDTIME NEEDED ORALLY FOUR TIMES A DAY NOT-TAKING ACYCLOVIR 400 MG TABLET 1 TABLET ORALLY TWICE A DAY NEEDED NOT-TAKING ZANTAC 150 MG TABLET 1 TABLET ORALLY BID NOT-TAKING CHERATUSSIN AC 100-10 MG/5ML SYRUP 5 ML ORALLY TWICE DAILY NEEDED NOT-TAKING ZOFRAN 8 MG TABLET 1 TABLET ORALLY TWICE A DAY NOT-TAKING [id number] 50-325-40 MG TABLET 1 TABLET NEEDED ORALLY EVERY 4 HRS NOT-TAKING METOPROLOL SUCCINATE 25 MG CAPSULE ER 24 HOUR SPRINKLE 1 CAPSULE ORALLY ONCE A DAY FOR MIGRAINE PROPHYLAXIS NOT-TAKING ZOFRAN 4 MG TABLET 1 TABLETS ORALLY FOR NAUSEAS EVERY 6 HOURS NEEDED MDD3 NOT-TAKING CROMOLYN SODIUM 4 % SOLUTION 1 DROP INTO AFFECTED EYE OPHTHALMIC FOUR TIMES A DAY MEDICATION LIST REVIEWED AND RECONCILED WITH THE PATIENT PAST MEDICAL HISTORY ESOPHAGEAL REFLUX ASTHMA MIGRAINE HEADACHE ARTHRITIS ABNORMAL PAP SMEAR/SEVERAL JOEL 3 W/[facility] (DR. 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 FIBROMYALGIA STOMACH ULCER HORMONE REPLACEMENT THERAPY (POSTMENOPAUSAL) POSTMENOPAUSAL ATROPHIC VAGINITIS CERVICAL POST-LAMINECTOMY SYNDROME CDIFF ALLERGIES SEA CRAB: ANAPHYLAXIS - ALLERGY LATEX: RASH - ALLERGY VANCOMYCIN HCL: HIVES/BREATHING PROBLEMS - ALLERGY DOXYCYCLINE CALCIUM: HIVES/BREATHING PROBLEMS - ALLERGY TOPAMAX: HEADACHE HORSE HAIR SURGICAL HISTORY HYSTERECTOMY, TOTAL WITH BSO-DYSPLASIA- C-3 1993 CHOLECYSTECTOMY 1993 BREAST BIOPSY C5-C6 FUSION ENDOSCOPY /COLONOSCOPY 2010, 2013 ENDOSCOPY-BENIGN FINDINGS, COLONOSCOPY - NONBLEEDING INTERNAL HEMORRHOIDS, DIVERTICULA IN RECTO-SIGMOID. PATH REPORT: FRAGMENTS OF COLONIC MUCOSA WITH INCREASED LYMPHOPLASMA INFILTRATES OF LAMINA PROPRIA 01/2014 ANTERIOR CERVICAL DISCECTOMY AND FUSION (ACDF) BY GARCÍA COX 06/04/15 LEFT CTS RELEASE 09/13/[address] GAGNON 04/2018 LEFT HAND CARPAL TUNNEL RELEASE 2018 FAMILY HISTORY FATHER: ALIVE MOTHER: , ANEURYSM, OSTEOPOROSIS SIBLINGS: ALIVE, HEART DISEASE SON(S): ALIVE 1 BROTHER(S) , 2 SISTER(S) - HEALTHY. 2 SON(S) - HEALTHY. SOCIAL HISTORY GENERAL: TOBACCO USE ARE YOU A:FORMER SMOKER HOW LONG HAS IT BEEN SINCE YOU LAST SMOKED?5-10 YEARS LATEX QUESTIONNAIRE LATEX ALLERGY : HAVE YOU EVER DEVELOPED ANY TYPE OF REACTION AFTER HANDLING LATEX PRODUCTS SUCH RUBBER GLOVES, CONDOMS, DIAPHRAGMS, BALLOONS, SOCKS, OR UNDERWEAR?YES KNOWN LATEX ALLERY-RASH AND ITCHING LATEX ALLERGY : HAVE YOU EVER DEVELOPED ANY TYPE OF REACTION DURING OR AFTER DENTAL APPOINTMENT, VAGINAL/RECTAL EXAMINATION, SURGICAL PROCEDURE, OR ANY OTHER EXPOSURE?YES - PLEASE INDICATE :SURGICAL PROCEDURE LATEX RISK : HAVE YOU EVER HAD ANY DIFFICULTY BREATHING OR HIVES AFTER EATING OR HANDLING ANY FRUITS, OR VEGETABLES; SUCH KIWI, BANANAS, STONE FRUITS, OR CHESTNUTSNO LATEX RISK : DO YOU HAVE A PREVIOUS PERSONAL HISTORY OF MORE THAN NINE SURGERIES, SPINA BIFIDA, OR REPEATED CATHERIZATIONS? YES - PLEASE INDICATE : > 9 SURGERIES LATEX RISK : ARE YOU FREQUENTLY EXPOSED TO LATEX PRODUCTS IN YOUR OCCUPATION?NO DATE ASKED : 06/23/2020 BMI CARE GOAL FOLLOW-UP ABOVE NORMAL BMI FOLLOW-UPGIVING ENCOURAGEMENT TO EXERCISE ALCOHOL SCREENING DID YOU HAVE A DRINK CONTAINING ALCOHOL IN THE PAST YEAR?NO POINTS0 INTERPRETATIONNEGATIVE RECREATIONAL DRUG USE DRUG USE?NO CAFFEINE CAFFEINE USE?NO HIV / HEP-C SCREENING HIV TEST OFFERED TO PATIENT:YES DATE OFFERED:10/25/2017 HEP-C TEST OFFERED TO PATIENT:YES DATE OFFERED:10/25/2017 TEST ACCEPTED:NO BROCHURE PROVIDED TO PATIENTNO LANGUAGE LANGUAGES SPOKEN:MALAWIAN OTHER-PASHTO IS HER FIRST LANGUAGE EDUCATION LEVEL OF EDUCATION: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 DIET: REGULAR. EXERCISE: WALKING OCC. MARITAL STATUS: SINGLE, ENGAGED. OTHERS AT HOME: FIANCE. PAIN CLINIC PFS, CLERGY, PUBLIC HEALTH REFERRALS PFS REFERRAL NEEDED?NO CLERGY REFERRAL NEEDED?NO PUBLIC HEALTH REFERRAL NEEDED?NO WAS THE PROVIDER NOTIFIED OF ANY PERTINENT INFO?YES HAS THE PATIENT BEEN EDUCATED REGARDING HIS/HER PLAN OF CARE?YES HAS THE PATIENT BEEN EDUCATED REGARDING PAIN, THE RISK FOR PAIN, THE IMPORTANCE OF EFFECTIVE PAIN MANAGEMENT, AND THE PAIN ASSESSMENT PROCESS?YES ADVANCE DIRECTIVE ADVANCE DIRECTIVE DISCUSSED WITH PATIENT:YES PT DPES NOT HAVE ANY ADVANCED DIRECTIVES AND SHE DECLINED HCP INFORMATION AT THIS TIME. USED TO SMOKE FOR OVER 20 YRS ON/OFF WITH 3 CIGS/DAYREVIEWED WITH PATIENT 11/22/18 1447 JS. HOSPITALIZATION/MAJOR DIAGNOSTIC PROCEDURE ACDF SURGERY, [facility] 92/15-06/07/15 C-DIFF 08/14/17-08/18/17 REVIEW OF SYSTEMS CONSTITUTIONAL: ANY RECENT FEVER NO . CHILLS NO . WEIGHT CHANGE OF UNKNOWN REASONS NO . GASTROENTEROLOGY: NEW UNEXPLAINABLE CHANGES IN BOWEL CONTROL NO . CONSTIPATION NO . GENITOURINARY: ANY NEW CHANGE IN BLADDER CONTROL? NO . NEUROLOGY: NEW ONSET DIZZINESS OR NEUROLOGICAL CHANGES NOT MENTIONED NO . NEW NUMBNESS OR PAIN PATTERNS NOT MENTIONED AND PERTINENT TO TODAY'S VISIT NO . CARDIOLOGY: NEW CHEST PRESSURE NO . NEW CHEST PAIN NO . RESPIRATORY: UNEXPLAINABLE COUGH NO . NEW SHORTNESS OF BREATH NO . VITAL SIGNS WT 176.0 LBS, HT 60 IN, BMI 34.37 INDEX, BP 111/69 MM HG, HR 81 /MIN, RR 18 /MIN, TEMP 98.8 F, OXYGEN SAT % 96%, NA INITIALS AW 1414. EXAMINATION GENERAL EXAMINATION: GENERALNO ACUTE DISTRESS, WELL NOURISHED AND HYDRATED. PSYCHAPPROPRIATE MOOD AND AFFECT . NECK:POINT TENDER BILATERAL NECK AND SHOULDERS SURROUNDING SKIN SHOWS NO ERYTHEMA, ECCHYMOSIS, INCREASED WARMTH, AND/OR SKIN ERUPTIONS NOTED. BANDS OF RESTRICTIVE TISSUE NOTED OVER TRIGGER POINTS . LUNGS:CLEAR TO AUSCULTATION BILATERALLY, NO WHEEZES, RHONCHI, RALES. HEART:NO MURMURS, REGULAR RATE AND RHYTHM. ASSESSMENTS MYALGIA, OTHER SITE - M79.18 (PRIMARY) TREATMENT MYALGIA, OTHER SITE NOTES: 59-YEAR-OLD FEMALE IN FOR WORKER'S COMP. CHRONIC PAIN FOLLOW-UP. GIVEN PRESENTING SYMPTOMS AND RESULTS OF PHYSICAL EXAMINATION RECOMMENDED BILATERAL NECK AND SHOULDER TRIGGER POINT INJECTIONS WITH POST PROCEDURAL FOLLOW-UP. PATIENT HAS EXPRESSED UNDERSTANDING OF AND WAS IN AGREEMENT TREATMENT PLAN. GIVEN TIME TO ASK QUESTIONS AND EXPRESS CONCERNS. , ISTOP REGISTRY REVIEWED AND DEMONSTRATES COMPLLIANCE. (REF # [id number] ) BRINGS IN MEDICATIONS WHICH IS APPROPRIATE FOR WHAT WAS DISPENSED. RECENT URINE TOXICOLOGY REVIEWED. NO UNAUTHORIZED MEDICATIONS. NO ILLICIT SUBSTANCES AND PRESCRIBED MEDICATIONS WERE PRESENT. PROCEDURES PN WORKMANS' COMP OPINION IN YOUR OPINION, WAS THE INCIDENT THAT THE PATIENT DESCRIBED THE COMPETENT MEDICAL CAUSE OF THIS INJURY/ILLNESS? YES ARE THE PATIENT'S COMPLAINTS CONSISTENT WITH HIS/HER HISTORY OF THE INJURY/ILLNESS? YES IS THE PATIENT'S HISTORY OF THE INJURY/ILLNESS CONSISTENT WITH YOUR OBJECTIVE FINDING? YES WHAT IS THE PERCENTAGE OF TEMPORARY IMPAIRMENT? TOTAL = 100% IS THE PATIENT WORKING? NO DOCTOR ON SITE: GILBERTO ESCOBAR MD PROCEDURE CODES FA211 ESTABILISHED PATIENT [facility] CHARGE DISPOSITION & COMMUNICATION FOLLOW UP POSTPROCEDURE (REASON: BILATERAL NECK AND SHOULDER TRIGGER POINT INJECTIONS) ELECTRONICALLY SIGNED BY CLARISSA PACKER ON 08/19/2020 AT 10:55 AM EST DISCLAIMER : THIS IS A VISIT SUMMARY EXTRACTED FROM THE [employer] CHART. IT IS NOT A COPY OF THE [employer] PROGRESS NOTE. MARY
== END ==
LOC: M PAIN 14:00
PROVIDERS: ATTEND Family Medicine
DX: M79.18 Myalgia, other site (principal); K21.9 Gastro-esophageal reflux disease without esophagitis; J45.909 Unspecified asthma, uncomplicated; G43.909 Migraine, unspecified, not intractable, without status migrainosus; Z86.59 Personal history of other mental and behavioral disorders; Z86.19 Personal history of other infectious and parasitic diseases; Z87.891 Personal history of nicotine dependence; Z88.1 Allergy status to other antibiotic agents; Z88.8 Allergy status to other drugs, medicaments and biological substances; Z91.013 Allergy to seafood; Z91.040 Latex allergy status; Z79.899 Other long term (current) drug therapy

== ENCOUNTER → 2020-10-29 | Outpatient (CLI) | payer OTHER ==
[~2020-10-29] MED LIST changes: +MONT10TA10 PO; -MONT5TAB2 PO
== END ==
LOC: M LABSMTC 11:03
PROVIDERS: ATTEND Anesthesiology
DX: Z20.822 Contact with and (suspected) exposure to COVID-19 (principal)

== ENCOUNTER → 2020-11-03 | Outpatient (CLI) | payer OTHER ==
[~2020-11-03] MED LIST changes: +BUPIVACAINE HCL 0.25% 10ML VIAL As Ordered ONE; +BUPIVACAINE HCL 0.25% 30ML VIAL As Ordered ONE
--- NOTE | 2020-11-05 01:38 | ECWPNPC ---
PATIENT NAME: DELIA BLOUNT : 1960 GENDER: FEMALE VISIT DATE: 11/03/2020 DISCHARGE DATE: 11/03/20958 VISIT LOCKED DATE TIME: PHYSICIAN: GILBERTO MEDINA MD PHYSICIAN PAGER NO: ACTIVE RESOURCE: GILBERTO MEDINA MD REASON FOR APPOINTMENT 1. TRIGGER POINT INJECTIONS BILATERAL NECK HISTORY OF PRESENT ILLNESS GENERAL: -. FALL RISK SCREENING: SCREENING :NO FALLS REPORTED IN THE LAST YEAR PAIN SCREENING: PATIENT HAS A COMPLAINT OF ACUTE OR CHRONIC PAIN :YES LOCATION OF PAIN:NECK, BOTH SHOULDERS INTENSITY OF PAIN (SCALE OF 1 TO 10):8 WHAT DOES YOUR PAIN FEEL LIKE:ACHING, BURNING, SHARP, STABBING, THROBBING, SHOOTING DURATION:CONTINOUS, CONSTANT PAIN IS INCREASED BY:ACTIVITIES PAIN IS DECREASED BY:USE OF PAIN MEDICATIONS NURSING NOTE: -. PAIN CENTER INTAKE QUESTIONS: DO YOU HAVE A HISTORY OF MRSA? :NO DO YOU TAKE A BLOOD THINNERS? :NO DO YOU HAVE ANY BLEEDING DISORDERS? :NO ANY NEW NUMBNESS OR WEAKNESS IN YOUR LEGS OR ARMS? :NO ANY PACEMAKER,DEFIBRILLATOR, OR DORSAL COLUMN STIMULATOR? :NO DO YOU HAVE ANY RASHES OR OPEN SORES? :NO ARE YOU ALLERGIC TO IV DYE? :NO ARE YOU DIABETIC? :NO ANY NEW PROBLEMS WITH YOUR MEDICATIONS? :NO HAVE YOU RECEIVED A VACCINE IN THE PAST 30 DAYS? :YES IF SO WHAT VACCINE AND WHEN? RECEIVED FLU VACCINE, NOT CLEAR WHEN DO YOU PLAN TO RECEIVE A VACCINE IN THE NEXT 21 DAYS? :NO DO YOU TAKE ANY IMMUNOSUPPRESSIVE MEDICATIONS? :NO ANY HISTORY OF SEIZURES? :NO ANY HISTORY OF CARDIAC ISSUES OR EVENTS? :NO DO YOU HAVE SLEEP APNEA? :YES DO YOU WEAR A CPAP?NO ANY RECENT HEAD INJURY? :NO DO YOU HAVE ANY NEW INFECTIONS? :NO IS THERE A CHANCE YOU COULD BE ? :NO ARE YOU BREAST FEEDING? :NO WHEN DID YOU LAST EAT? : -11/020 WHEN DID YOU LAST DRINK? : -11/030 WHAT DID YOU LAST DRINK? : -WATER NAME OF PERSON DRIVING YOU HOME? : DAUGHTER IN LAW DO YOU HAVE ANY OTHER QUESTIONS OR CONCERNS? : - PAST MEDICAL HISTORY ESOPHAGEAL REFLUX ASTHMA MIGRAINE HEADACHE ARTHRITIS ABNORMAL PAP SMEAR/SEVERAL JOEL 3 W/[facility] (DR. 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 FIBROMYALGIA STOMACH ULCER HORMONE REPLACEMENT THERAPY (POSTMENOPAUSAL) POSTMENOPAUSAL ATROPHIC VAGINITIS CERVICAL POST-LAMINECTOMY SYNDROME CDIFF ALLERGIES SEA CRAB: ANAPHYLAXIS - ALLERGY LATEX: RASH - ALLERGY VANCOMYCIN HCL: HIVES/BREATHING PROBLEMS - ALLERGY DOXYCYCLINE CALCIUM: HIVES/BREATHING PROBLEMS - ALLERGY TOPAMAX: HEADACHE HORSE HAIR SOCIAL HISTORY GENERAL: TOBACCO USE ARE YOU A:FORMER SMOKER HOW LONG HAS IT BEEN SINCE YOU LAST SMOKED?5-10 YEARS LATEX QUESTIONNAIRE LATEX ALLERGY : HAVE YOU EVER DEVELOPED ANY TYPE OF REACTION AFTER HANDLING LATEX PRODUCTS SUCH RUBBER GLOVES, CONDOMS, DIAPHRAGMS, BALLOONS, SOCKS, OR UNDERWEAR?YES KNOWN LATEX ALLERY-RASH AND ITCHING LATEX ALLERGY : HAVE YOU EVER DEVELOPED ANY TYPE OF REACTION DURING OR AFTER DENTAL APPOINTMENT, VAGINAL/RECTAL EXAMINATION, SURGICAL PROCEDURE, OR ANY OTHER EXPOSURE?YES - PLEASE INDICATE :SURGICAL PROCEDURE LATEX RISK : HAVE YOU EVER HAD ANY DIFFICULTY BREATHING OR HIVES AFTER EATING OR HANDLING ANY FRUITS, OR VEGETABLES; SUCH KIWI, BANANAS, STONE FRUITS, OR CHESTNUTSNO LATEX RISK : DO YOU HAVE A PREVIOUS PERSONAL HISTORY OF MORE THAN NINE SURGERIES, SPINA BIFIDA, OR REPEATED CATHERIZATIONS? YES - PLEASE INDICATE : > 9 SURGERIES LATEX RISK : ARE YOU FREQUENTLY EXPOSED TO LATEX PRODUCTS IN YOUR OCCUPATION?NO DATE ASKED : 11/02/2020 BMI CARE GOAL FOLLOW-UP ABOVE NORMAL BMI FOLLOW-UPGIVING ENCOURAGEMENT TO EXERCISE ALCOHOL SCREENING DID YOU HAVE A DRINK CONTAINING ALCOHOL IN THE PAST YEAR?NO POINTS0 INTERPRETATIONNEGATIVE RECREATIONAL DRUG USE DRUG USE?NO CAFFEINE CAFFEINE USE?NO HIV / HEP-C SCREENING HIV TEST OFFERED TO PATIENT:YES DATE OFFERED:10/25/2017 HEP-C TEST OFFERED TO PATIENT:YES DATE OFFERED:10/25/2017 TEST ACCEPTED:NO BROCHURE PROVIDED TO PATIENTNO LANGUAGE LANGUAGES SPOKEN:KAZAKH OTHER-YORUBA IS HER FIRST LANGUAGE EDUCATION LEVEL OF EDUCATION:HIGH SCHOOL LEARNING BARRIERS / SPECIAL NEEDS CHANGE FROM LAST VISIT?NO BARRIERS TO LEARNING?NO HEARING IMPAIRED?YES VISION IMPAIRED?YES COGNITIVELY IMPAIRED?NO :HEARING AIDES :CORRECTIVE LENSES READINESS TO LEARN?YES LEARNING PREFERENCES?NO LEARNING CAPABILITIES PRESENT?YES EMOTIONAL BARRIERS?NO SPECIAL DEVICES?NO BEAVER TRAPPER NEEDED?NO DOMESTIC VIOLENCE STATUS:SINGLE DO YOU FEEL SAFE IN YOUR ENVIRONMENT?YES OCCUPATION: NOT WORKING. DIET: REGULAR. EXERCISE: WALKING OCC. MARITAL STATUS: SINGLE, ENGAGED. OTHERS AT HOME: FIANCE. - PFS REFERRAL NEEDED?NO CLERGY REFERRAL NEEDED?NO PUBLIC HEALTH REFERRAL NEEDED?NO WAS THE PROVIDER NOTIFIED OF ANY PERTINENT INFO?YES HAS THE PATIENT BEEN EDUCATED REGARDING HIS/HER PLAN OF CARE?YES HAS THE PATIENT BEEN EDUCATED REGARDING PAIN, THE RISK FOR PAIN, THE IMPORTANCE OF EFFECTIVE PAIN MANAGEMENT, AND THE PAIN ASSESSMENT PROCESS?YES ADVANCE DIRECTIVE ADVANCE DIRECTIVE DISCUSSED WITH PATIENT:YES PT DPES NOT HAVE ANY ADVANCED DIRECTIVES AND SHE DECLINED HCP INFORMATION AT THIS TIME. USED TO SMOKE FOR OVER 20 YRS ON/OFF WITH 3 CIGS/DAYREVIEWED WITH PATIENT 11/22/18 1447 JS. VITAL SIGNS WT 177.6 LBS, HT 60 IN, BMI 34.68 INDEX, BP 126/58 MM HG, HR 74 /MIN, RR 18 /MIN, TEMP 97.6 F, OXYGEN SAT % 94%, SAFE IN ENV? (Y/N) YES, NA INITIALS AW 0841, REVIEWED BY: LAUREL GARCIA. EXAMINATION GENERAL EXAMINATION: THE PATIENT IS ALERT, ORIENTED TIMES THREE AND COOPERATIVE. LUNGS ARE CLEAR TO AUSCULTATION. HEART SHOWS REGULAR RHYTHM, NO MURMURS AND NO GALLOPS. ASSESSMENTS MYALGIA - M79.1 (PRIMARY) TREATMENT MYALGIA COMPLETION OF PROCEDURAL VISIT WHEN MEETS CRITERIA OTHERS NOTES: PAT DONE. Larry COUGHLIN VIDEO GAME ENGINEER. PROCEDURES PAIN NURSING RECORD PROCEDURE IN ROOM 0840, PHYSICIAN IN ROOM 0940, START 0945, FINISH 0949, PHYSICIAN OUT OF ROOM 0951, OUT OF ROOM 0958, ECG OTHER, PATIENT SHIELDED N/A, SAFETY STRAP N/A, PREP ALCOHOL BY DR MEDINA, DRESSING TEGADERM BY Cleve ABRAHAM RN LOC: 1. ALERT, ORIENTED RESP: 1. REGULAR, NO DYSPNEA COLOR: 1. PINK SKIN: 1. WARM, DRY POSITION: 5. SITTING VITALS: 0955 106/57 HR 66 16 96% R/A D/C V/S NOTES PROCEDURE MEDS DRAWN UP BY Larry COUGHLIN RN AND VERIFIED BY MYSELF. COMPLETION OF PROCEDURE APPOINTMENT: POST PAIN 5, DRESSING SITE DRY AND INTACT, IV N/A, GAIT STEADY, TEACHING COMPLETED, PATIENT ACKNOWLEDGES UNDERSTANDING YES, PROCEDURE APPOINTMENT COMPLETED AT 0958 PN WORKMANS' COMP OPINION IN YOUR OPINION, WAS THE INCIDENT THAT THE PATIENT DESCRIBED THE COMPETENT MEDICAL CAUSE OF THIS INJURY/ILLNESS? YES ARE THE PATIENT'S COMPLAINTS CONSISTENT WITH HIS/HER HISTORY OF THE INJURY/ILLNESS? YES IS THE PATIENT'S HISTORY OF THE INJURY/ILLNESS CONSISTENT WITH YOUR OBJECTIVE FINDING? YES WHAT IS THE PERCENTAGE OF TEMPORARY IMPAIRMENT? TOTAL = 100% . IS THE PATIENT WORKING? NO . DOCTOR ON SITE: GILBERTO ESCOBAR MD PN TRIGGER POINT INJECTION NO STEROIDS PRE PROCEDURE DIAGNOSIS 1. MYALGIA 2. PAIN AT BILATERAL NECK AREA POST PROCEDURE DIAGNOSIS 1. MYALGIA 2. PAIN AT BILATERAL NECK AREA PROCEDURE TRIGGER POINT INJECTION AT BILATERAL NECK AREA SURGEON DR. GILBERTO MEDINA RN SURGERY ICU NONE ANESTHESIA LOCAL PRE PROCEDURE NOTE PATIENT WITH HISTORY OF CHRONIC PAIN AT RIGHT AND LEFT NECK AREA. I EVALUATED THE PATIENT AND REVIEWED THE CHART. THERE IS EVIDENCE OF BANDS OF TISSUE WITH RESTRICTION OF MOVEMENT AND PRESENCE OF TRIGGER POINT AT THE RIGHT AND LEFT NECK AREA. I WENT OVER THE RISKS, ALTERNATIVES, AND BENEFITS ASSOCIATED WITH THIS PROCEDURE. THE PATIENT WOULD LIKE TO PROCEED AND GAVE CONSENT TO PERFORM THE PROCEDURE. THE PATIENT DENIES UNEXPLAINABLE WEIGHT LOSS, FEVER, CHILLS, OR NEW CHANGES IN URINARY OR BOWEL CONTROL. THE PATIENT IS COVID-19 NEGATIVE DESCRIPTION OF PROCEDURE THE PATIENT WAS BROUGHT TO THE PROCEDURE ROOM AND PLACED IN THE SITTING POSITION. THE AREA WAS CLEANED WITH ALCOHOL. THE PROCEDURE WAS DONE USING [employer] STERILE TECHNIQUES. A TIMEOUT WAS PERFORMED WHERE THE CONSENTED SITE WAS VERIFIED WITH EVERYONE IN THE ROOM. USING A 25-GAUGE NEEDLE, TRIGGER POINTS WERE INJECTED INTO THE RIGHT AND LEFT NECK AREA WITH A TOTAL OF 40 ML OF BUPIVACAINE 0.25%. AGREED WITH THE PATIENT THE PROCEDURE WAS DONE WITHOUT STEROIDS. THERE WAS NO EVIDENCE OF BLOOD, PARESTHESIA OR CEREBROSPINAL FLUID DURING THE PROCEDURE. THE PATIENT WAS SENT TO THE RECOVERY ROOM. THE PATIENT WAS MOVING THE EXTREMITIES AND DOING WELL. THERE WAS NO COMPLICATION DURING THE PROCEDURE. EBL LESS THAN 5 ML. POST PROCEDURE NOTE THE PATIENT IS HAVING A LOT OF HEADACHES. CONSIDER ORDERING A BRAIN MRI. THE PROCEDURE DONE WAS DISCUSSED WITH THE PATIENT. THE PATIENT WILL BE SEEN IN A FOLLOW UP IN THE NEXT FEW WEEKS. I AM LOOKING FOR LONG LASTING PAIN RELIEF FOR THE PATIENT WITH THIS INTERVENTION. INSTRUCTIONS WERE GIVEN, QUESTIONS WERE ANSWERED, AND THE PATIENT EXPRESSED UNDERSTANDING AND AGREES WITH THE PLAN. I, TREASURE MOTA, DOCUMENTED THE ABOVE INFORMATION ACTING A SCRIBE FOR DR. MEDINA. I HAVE REVIEWED THE ABOVE DOCUMENT, WRITTEN BY TREASURE MOTA, COATER SMOKING PIPE, AND I VERIFY THAT IT IS ACCURATE PROCEDURE CODES 39879 INJ TRIGGER POINT 1/2 MUSCL DISPOSITION & COMMUNICATION FOLLOW UP FOLLOW UP WITH ELECTRICAL SOFTWARE ENGINEER (REASON: POST TRIGGER POINT INJECTIONS BILATERAL NECK) ELECTRONICALLY SIGNED BY GILBERTO MEDINA MD, MD ON 11/04/2020 AT 09:33 AM EST DISCLAIMER : THIS IS A VISIT SUMMARY EXTRACTED FROM THE [facility] CHART. IT IS NOT A COPY OF THE [facility] PROGRESS NOTE. MARY
== END ==
LOC: M PAIN 08:30
PROVIDERS: ATTEND Anesthesiology
DX: M79.18 Myalgia, other site (principal); G47.30 Sleep apnea, unspecified; J45.909 Unspecified asthma, uncomplicated; G43.909 Migraine, unspecified, not intractable, without status migrainosus; Z86.59 Personal history of other mental and behavioral disorders; Z87.891 Personal history of nicotine dependence; Z88.1 Allergy status to other antibiotic agents; Z88.8 Allergy status to other drugs, medicaments and biological substances; Z91.013 Allergy to seafood; Z91.040 Latex allergy status; Z91.09 Other allergy status, other than to drugs and biological substances

== ENCOUNTER → 2020-11-28 | Outpatient (CLI) | payer OTHER ==
[~2020-11-28] MED LIST changes: -BUPIVACAINE HCL 0.25% 10ML VIAL As Ordered ONE; -BUPIVACAINE HCL 0.25% 30ML VIAL As Ordered ONE
--- NOTE | 2020-11-28 15:32 | REP ---
INDICATION: SHORTNESS OF BREATH. COMPARISON: PA and lateral chest dated 11/24/2019. TECHNIQUE: Upright PA and lateral chest. FINDINGS: The lung hernandez are clear. Cardiac size is normal. The pham, mediastinum and skeletal structures are unremarkable. There is a cervical spine stabilization plate, unchanged. There are abdominal right upper quadrant surgical clips, unchanged. IMPRESSION: Essentially negative PA and lateral chest There is no interval change. <Electronically signed by Jamie Srinivasan > 11/28/20 152
== END ==
LOC: M RAD 15:14
PROVIDERS: ATTEND Student in an Organized Health Care Education/Training Program
DX: R06.02 Shortness of breath (principal)

== ENCOUNTER → 2020-11-29 | Outpatient (CLI) | payer OTHER ==
[2020-11-29 15:57] LABS: BASO % 0.5 % (0.0-1.0); EOS # 0.1 10^3/uL (0.0-0.5); EOS % 1.2 % (0.0-3.0); HEMATOCRIT 39.5 % (36.0-47.0); HEMOGLOBIN 12.7 g/dl (12.0-15.5); LYMPH # 1.9 10^3/uL (1.5-5.0); LYMPH % 43.5 % (24.0-44.0); MEAN CORPUSCULAR HEMOGLOBIN 30.3 pg (27.0-33.0); MEAN CORPUSCULAR HGB CONC 32.2 g/dl (32.0-36.5); MEAN CORPUSCULAR VOLUME 94.3 fl (80.0-96.0); MONO # 0.3 10^3/uL (0.0-0.8); MONO % 7.7 % (2.0-8.0); NEUTROPHILS % 46.6 % (36.0-66.0); PLATELET COUNT, AUTOMATED 240 10^3/uL (150-450); RED BLOOD COUNT 4.19 10^6/uL (4.00-5.40); WHITE BLOOD COUNT 4.3 10^3/uL (4.0-10.0)
[2020-11-29 16:44] LABS: THYROID STIMULATING HORMONE 3.42 uIU/ML (0.358-3.740)
== END ==
LOC: M LAB 14:47
PROVIDERS: ATTEND Student in an Organized Health Care Education/Training Program
DX: R60.0 Localized edema (principal); R53.83 Other fatigue

== ENCOUNTER → 2020-12-01 | Outpatient (CLI) | payer OTHER ==
--- NOTE | 2020-12-03 04:19 | ECWPNPC ---
PATIENT NAME: DELIA BLOUNT : 1960 GENDER: FEMALE VISIT DATE: 12/01/2020 DISCHARGE DATE: 12/01/20 1105 VISIT LOCKED DATE TIME: PHYSICIAN: BENIGNO HUGHES PHYSICIAN PAGER NO: ACTIVE RESOURCE: BENIGNO HUGHES REASON FOR APPOINTMENT 1. POST BILATERAL NECK TRIGGER POINT INJECTIONS HISTORY OF PRESENT ILLNESS PAIN CENTER INTAKE QUESTIONS: 60-YEAR-OLD FEMALE IN FOR POST TRIGGER POINT INJECTION FOLLOW-UP. SHE RATES HER PAIN PREPROCEDURE AT AN 8 OUT OF 10 AND POSTPROCEDURE AT A 3-5 OUT OF 10X10 DAYS. SHE DOES ADMIT TO INCREASED NECK PAIN. 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 THE PATIENT STATES SHE HAD NECK SURGERY DONE TWICE, BUT THE PAIN, SPASMS, AND HEADACHES STILL PERSIST. GENERAL: -. FALL RISK SCREENING: SCREENING : NO FALLS REPORTED IN THE LAST YEAR. PAIN SCREENING: PATIENT HAS A COMPLAINT OF ACUTE OR CHRONIC PAIN :YES LOCATION OF PAIN:NECK, BOTH SHOULDERS INTENSITY OF PAIN (SCALE OF 1 TO 10):8 WHAT DOES YOUR PAIN FEEL LIKE:ACHING, BURNING, CONTINOUS, THROBBING, SHOOTING DURATION:CONTINOUS, CONSTANT, AWAKENS FROM SLEEP PAIN IS INCREASED BY:ACTIVITIES, PROLONGED STANDING PAIN IS DECREASED BY:USE OF PAIN MEDICATIONS PAIN MEDS HELP SOME NURSING NOTE: -. CURRENT MEDICATIONS TAKING ALBUTEROL SULFATE HFA 108 (90 BASE) MCG/ACT AEROSOL SOLUTION 2 PUFFS NEEDED INHALATION EVERY 4 HRS TAKING OMEGA 3 1000 MG CAPSULE 1 CAPSULE ORALLY ONCE A DAY TAKING LUTEIN VISION BLEND CAPSULE ORALLY DAILY TAKING VITAMIN D3 5000 UNITS CAPSULE 1 CAPSULE ORALLY ONCE A DAY TAKING MEDICAL COMPRESSION STOCKINGS - MISCELLANEOUS DIRECTED TOPICALLY DAILY; ICD10: R60.0 TAKING DICYCLOMINE HCL 20 MG TABLET 1 TABLET ORALLY FOUR TIMES A DAY TAKING FLORANEX - PACKET 1 PACKET ORALLY DAILY TAKING DAILY PROBIOTIC - CAPSULE DIRECTED ORALLY DAILY TAKING ESTRACE 0.1 MG/GM CREAM 0.5 GM VAGINAL TWICE A WEEK TAKING ESTRACE 1 MG TABLET 1 TABLET ORALLY ONCE DAILY TAKING ACYCLOVIR 400 MG TABLET 1 TABLET ORALLY TWICE A DAY TAKING CHOLESTYRAMINE 4 GM/DOSE POWDER 1 SCOOP ORALLY TWICE A DAY TAKING DIPHENOXYLATE-ATROPINE 2.5-0.025 MG TABLET 1 TABLET NEEDED ORALLY TWO TIMES A DAY TAKING FLUOCINOLONE ACETONIDE 0.025 % CREAM APPLY THIN LAYER TO AFFECTED AREAS ON BOTH LEGS EXTERNALLY TWICE A DAY NEEDED TAKING CETIRIZINE HCL 10 MG CAPSULE 1 CAP ORALLY QHS TAKING LORATADINE 10 MG TABLET 1 TABLET ORALLY ONCE A DAY TAKING CYMBALTA 30 MG CAPSULE DELAYED RELEASE PARTICLES 1 CAPSULE ORALLY ONCE A DAY FOR PAIN TAKING CYCLOBENZAPRINE HCL 10 MG TABLET 1 TABLET ORALLY FOR SPSMS AND PAIN THREE TIMES A DAY NEEDED MDD3 TAKING LYRICA 150 MG CAPSULE 1 CAPSULE ORALLY FOR PAIN THREE TIMES DAILY TAKING RIZATRIPTAN BENZOATE 5 MG TABLET 1 TABLET ORALLY X1 NEEDED FOR MIGRAINE HEADACHE MAY REPEAT IN 2 HRS IF NEDED X2 TAKING PANTOPRAZOLE SODIUM 40 MG TABLET DELAYED RELEASE TAKE ONE TABLET BY MOUTH TWICE A DAY ORALLY BID TAKING AZELASTINE HCL 0.1 % SOLUTION 1 PUFF IN EACH NOSTRIL NASALLY TWICE A DAY TAKING TRAMADOL HCL 50 MG TABLET 1 TAB ORALLY EVERY 6 HOURS NEEDED PAIN MDD=4 TAKING LASIX 40 MG TABLET 1 TABLET ORALLY ONCE A DAY UNKNOWN BENADRYL 25 MG TABLET 1 TABLET ORALLY DAILY BEFORE BEDTIME/ NEEDED UNKNOWN VOLTAREN 1 % GEL DIRECTED TRANSDERMAL FOUR TIMES DAILY NEEDED UNKNOWN CIPRO 250 MG TABLET 1 TABLET ORALLY EVERY 12 HRS UNKNOWN VITAMIN B12 1000 MCG TABLET EXTENDED RELEASE 1 TABLET ORALLY ONCE A DAY UNKNOWN GUAIFENESIN 400 MG TABLET 1 TABLET NEEDED ORALLY EVERY 4 HOURS NEEDED COUGH, NOTES: NOT TO EXCEED 2.4G IN 24 HOURS UNKNOWN FLUTICASONE PROPIONATE HFA 110 MCG/ACT AEROSOL 1 PUFF INHALATION TWICE A DAY UNKNOWN RANITIDINE HCL 150 MG TABLET 1 TABLET AT BEDTIME ORALLY ONCE A DAY UNKNOWN PEPPERMINT OIL 50 MG CAPSULE DELAYED RELEASE DIRECTED ORALLY DAILY UNKNOWN ACYCLOVIR 800 MG TABLET 1 TABLET ORALLY TWICE A DAY UNKNOWN LACTOBACILLUS - TABLET DIRECTED ORALLY TID UNKNOWN PROTONIX 40 MG TAB 1 TAB ORALLY TWICE DAILY UNKNOWN COLACE 100 MG CAPSULE 1 CAPSULE NEEDED ORALLY ONCE A DAY UNKNOWN SIMETHICONE 80 MG TABLET CHEWABLE 1 TABLET AFTER MEALS AND AT BEDTIME NEEDED ORALLY FOUR TIMES A DAY UNKNOWN ACYCLOVIR 400 MG TABLET 1 TABLET ORALLY TWICE A DAY NEEDED UNKNOWN ZANTAC 150 MG TABLET 1 TABLET ORALLY BID UNKNOWN CHERATUSSIN AC 100-10 MG/5ML SYRUP 5 ML ORALLY TWICE DAILY NEEDED UNKNOWN ZOFRAN 8 MG TABLET 1 TABLET ORALLY TWICE A DAY UNKNOWN [id number] 50-325-40 MG TABLET 1 TABLET NEEDED ORALLY EVERY 4 HRS UNKNOWN METOPROLOL SUCCINATE 25 MG CAPSULE ER 24 HOUR SPRINKLE 1 CAPSULE ORALLY ONCE A DAY FOR MIGRAINE PROPHYLAXIS UNKNOWN ZOFRAN 4 MG TABLET 1 TABLETS ORALLY FOR NAUSEAS EVERY 6 HOURS NEEDED MDD3 UNKNOWN CROMOLYN SODIUM 4 % SOLUTION 1 DROP INTO AFFECTED EYE OPHTHALMIC FOUR TIMES A DAY MEDICATION LIST REVIEWED AND RECONCILED WITH THE PATIENT PAST MEDICAL HISTORY ESOPHAGEAL REFLUX ASTHMA MIGRAINE HEADACHE ARTHRITIS ABNORMAL PAP SMEAR/SEVERAL JOEL 3 W/CRYO (DR. 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 FIBROMYALGIA STOMACH ULCER HORMONE REPLACEMENT THERAPY (POSTMENOPAUSAL) POSTMENOPAUSAL ATROPHIC VAGINITIS CERVICAL POST-LAMINECTOMY SYNDROME CDIFF ALLERGIES SEA CRAB: ANAPHYLAXIS - ALLERGY LATEX: RASH - ALLERGY VANCOMYCIN HCL: HIVES/BREATHING PROBLEMS - ALLERGY DOXYCYCLINE CALCIUM: HIVES/BREATHING PROBLEMS - ALLERGY TOPAMAX: HEADACHE HORSE HAIR SOCIAL HISTORY GENERAL: TOBACCO USE ARE YOU A:FORMER SMOKER HOW LONG HAS IT BEEN SINCE YOU LAST SMOKED?5-10 YEARS LATEX QUESTIONNAIRE LATEX ALLERGY : HAVE YOU EVER DEVELOPED ANY TYPE OF REACTION AFTER HANDLING LATEX PRODUCTS SUCH RUBBER GLOVES, CONDOMS, DIAPHRAGMS, BALLOONS, SOCKS, OR UNDERWEAR?YES KNOWN LATEX ALLERY-RASH AND ITCHING LATEX ALLERGY : HAVE YOU EVER DEVELOPED ANY TYPE OF REACTION DURING OR AFTER DENTAL APPOINTMENT, VAGINAL/RECTAL EXAMINATION, SURGICAL PROCEDURE, OR ANY OTHER EXPOSURE?YES - PLEASE INDICATE :SURGICAL PROCEDURE DATE ASKED : 11/02/2020 LATEX RISK : HAVE YOU EVER HAD ANY DIFFICULTY BREATHING OR HIVES AFTER EATING OR HANDLING ANY FRUITS, OR VEGETABLES; SUCH KIWI, BANANAS, STONE FRUITS, OR CHESTNUTSNO LATEX RISK : DO YOU HAVE A PREVIOUS PERSONAL HISTORY OF MORE THAN NINE SURGERIES, SPINA BIFIDA, OR REPEATED CATHERIZATIONS? YES - PLEASE INDICATE : > 9 SURGERIES LATEX RISK : ARE YOU FREQUENTLY EXPOSED TO LATEX PRODUCTS IN YOUR OCCUPATION?NO ALCOHOL USE: NO. BMI CARE GOAL FOLLOW-UP ABOVE NORMAL BMI FOLLOW-UPGIVING ENCOURAGEMENT TO EXERCISE ALCOHOL SCREENING DID YOU HAVE A DRINK CONTAINING ALCOHOL IN THE PAST YEAR?NO POINTS0 INTERPRETATIONNEGATIVE RECREATIONAL DRUG USE DRUG USE?NO CAFFEINE CAFFEINE USE?NO HIV / HEP-C SCREENING HIV TEST OFFERED TO PATIENT:YES DATE OFFERED:10/25/2017 HEP-C TEST OFFERED TO PATIENT:YES DATE OFFERED:10/25/2017 TEST ACCEPTED:NO BROCHURE PROVIDED TO PATIENTNO LANGUAGE LANGUAGES SPOKEN:CHINESE OTHER-MAORI IS HER FIRST LANGUAGE EDUCATION LEVEL OF EDUCATION:HIGH SCHOOL LEARNING BARRIERS / SPECIAL NEEDS CHANGE FROM LAST VISIT?NO BARRIERS TO LEARNING?NO HEARING IMPAIRED?YES :HEARING AIDES VISION IMPAIRED?YES :CORRECTIVE LENSES COGNITIVELY IMPAIRED?NO READINESS TO LEARN?YES LEARNING PREFERENCES?NO LEARNING CAPABILITIES PRESENT?YES EMOTIONAL BARRIERS?NO SPECIAL DEVICES?NO ELECTRONIC INSTRUMENT TRADES WORKER NEEDED?NO DOMESTIC VIOLENCE STATUS:SINGLE DO YOU FEEL SAFE IN YOUR ENVIRONMENT?YES OCCUPATION: NOT WORKING. DIET: REGULAR. EXERCISE: WALKING OCC. MARITAL STATUS: SINGLE, ENGAGED. OTHERS AT HOME: [place]. - PFS REFERRAL NEEDED?NO CLERGY REFERRAL NEEDED?NO PUBLIC HEALTH REFERRAL NEEDED?NO WAS THE PROVIDER NOTIFIED OF ANY PERTINENT INFO?YES HAS THE PATIENT BEEN EDUCATED REGARDING HIS/HER PLAN OF CARE?YES HAS THE PATIENT BEEN EDUCATED REGARDING PAIN, THE RISK FOR PAIN, THE IMPORTANCE OF EFFECTIVE PAIN MANAGEMENT, AND THE PAIN ASSESSMENT PROCESS?YES ADVANCE DIRECTIVE ADVANCE DIRECTIVE DISCUSSED WITH PATIENT:YES PT DPES NOT HAVE ANY ADVANCED DIRECTIVES AND SHE DECLINED HCP INFORMATION AT THIS TIME. USED TO SMOKE FOR OVER 20 YRS ON/OFF WITH 3 CIGS/DAYREVIEWED WITH PATIENT 11/22/18 [id number] JS. REVIEW OF SYSTEMS CONSTITUTIONAL: ANY RECENT FEVER NO . CHILLS NO . WEIGHT CHANGE OF UNKNOWN REASONS NO . GASTROENTEROLOGY: NEW UNEXPLAINABLE CHANGES IN BOWEL CONTROL NO . CONSTIPATION NO . GENITOURINARY: ANY NEW CHANGE IN BLADDER CONTROL? NO . NEUROLOGY: NEW ONSET DIZZINESS OR NEUROLOGICAL CHANGES NOT MENTIONED NO . NEW NUMBNESS OR PAIN PATTERNS NOT MENTIONED AND PERTINENT TO TODAY'S VISIT NO . CARDIOLOGY: NEW CHEST PRESSURE NO . PATIENT DENIES NO . RESPIRATORY: UNEXPLAINABLE COUGH NO . NEW SHORTNESS OF BREATH NO . VITAL SIGNS WT 177.6 LBS, HT 60 IN, BMI 34.68 INDEX, BP 108/56 MM HG, HR 78 /MIN, RR 16 /MIN, TEMP 97.8 F, OXYGEN SAT % 95%, SAFE IN ENV? (Y/N) YES, NA INITIALS SC 10:25, REVIEWED BY: JEREMY CANALES MA. EXAMINATION GENERAL EXAMINATION: GENERALNO ACUTE DISTRESS, WELL NOURISHED AND HYDRATED. PSYCHAPPROPRIATE MOOD AND AFFECT . LUNGS:CLEAR TO AUSCULTATION BILATERALLY, NO WHEEZES, RHONCHI, RALES. HEART:NO MURMURS, REGULAR RATE AND RHYTHM. ASSESSMENTS OTHER CHRONIC PAIN - G89.29 (PRIMARY) CERVICAL POST-LAMINECTOMY SYNDROME - M96.1, RISK: (NULL) MYALGIA, OTHER SITE - M79.18, RISK: (NULL) TREATMENT OTHER CHRONIC PAIN PAIN PROCEDURE LOGDATE OF [id number]/24/2021ROCEDURE:TRIGGER POINT INJECTIONS BILATERAL NECKAMOUNT OF PRE SEDATE0/0RESULT:PREPROCEDURE 8 OUT OF 10 AND POSTPROCEDURE 3-5 OUT OF 10X10 DAYS. NOTES: 60-YEAR-OLD FEMALE IN FOR POST TRIGGER POINT URGENT FOLLOW-UP. GIVEN PRESENTING SYMPTOMS RECOMMEND CERVICAL MRI WITH POST IMAGING FOLLOW-UP. PATIENT HAS EXPRESSED UNDERSTANDING OF AND WAS IN AGREEMENT WITH TREATMENT PLAN. GIVEN TIME TO ASK QUESTIONS AND EXPRESS CONCERNS. , ISTOP REGISTRY REVIEWED AND DEMONSTRATES COMPLLIANCE. (REF # [id number] ) BRINGS IN MEDICATIONS WHICH IS APPROPRIATE FOR WHAT WAS DISPENSED. RECENT URINE TOXICOLOGY REVIEWED. NO UNAUTHORIZED MEDICATIONS. NO ILLICIT SUBSTANCES AND PRESCRIBED MEDICATIONS WERE PRESENT. CERVICAL POST-LAMINECTOMY SYNDROME [facility] C SPINE W/O FOLL BY [id number] PROCEDURES PN WORKMANS' COMP OPINION IN YOUR OPINION, WAS THE INCIDENT THAT THE PATIENT DESCRIBED THE COMPETENT MEDICAL CAUSE OF THIS INJURY/ILLNESS? YES ARE THE PATIENT'S COMPLAINTS CONSISTENT WITH HIS/HER HISTORY OF THE INJURY/ILLNESS? YES IS THE PATIENT'S HISTORY OF THE INJURY/ILLNESS CONSISTENT WITH YOUR OBJECTIVE FINDING? YES WHAT IS THE PERCENTAGE OF TEMPORARY IMPAIRMENT? TOTAL = 100% IS THE PATIENT WORKING? NO DOCTOR ON SITE: GILBERTO ESCOBAR MD PROCEDURE CODES FA211 ESTABILISHED PATIENT [facility] FACILITY CHARGE DISPOSITION & COMMUNICATION FOLLOW UP POST IMAGING (REASON: CERVICAL MRI WITH AND WITHOUT CONTRAST ) ELECTRONICALLY SIGNED BY CLARISSA PACKER ON 12/02/2020 AT 12:39 PM EDT DISCLAIMER : THIS IS A VISIT SUMMARY EXTRACTED FROM THE [employer] CHART. IT IS NOT A COPY OF THE [employer] PROGRESS NOTE. MARY
== END ==
LOC: M PAIN 10:15
PROVIDERS: ATTEND Family Medicine
DX: G89.29 Other chronic pain (principal); M96.1 Postlaminectomy syndrome, not elsewhere classified; M79.18 Myalgia, other site; K21.9 Gastro-esophageal reflux disease without esophagitis; J45.909 Unspecified asthma, uncomplicated; G43.909 Migraine, unspecified, not intractable, without status migrainosus; H40.9 Unspecified glaucoma; M47.812 Spondylosis without myelopathy or radiculopathy, cervical region; F32.9 Major depressive disorder, single episode, unspecified; M79.7 Fibromyalgia; N95.2 Postmenopausal atrophic vaginitis; Z87.891 Personal history of nicotine dependence; Z79.891 Long term (current) use of opiate analgesic; Z79.899 Other long term (current) drug therapy; Z91.013 Allergy to seafood; Z91.040 Latex allergy status; Z88.1 Allergy status to other antibiotic agents; Z88.8 Allergy status to other drugs, medicaments and biological substances

== ENCOUNTER → 2020-12-03 | Outpatient (CLI) | payer OTHER ==
[2020-12-03 13:05] LABS: ALBUMIN 3.4 GM/DL (3.2-5.2); ALT/SGPT 40 U/L (12-78); BILIRUBIN,TOTAL 0.3 MG/DL (0.2-1.0); BLOOD UREA NITROGEN 8 MG/DL (7-18); CARBON DIOXIDE LEVEL 32 MEQ/L (21-32); CHLORIDE LEVEL 104 MEQ/L (98-107); CREATININE FOR GFR 0.54 MG/DL (0.55-1.30); GLOMERULAR FILTRATION RATE > 60.0 (>45); GLUCOSE, FASTING 127 MG/DL (70-100); POTASSIUM SERUM 3.6 MEQ/L (3.5-5.1); SODIUM LEVEL 141 MEQ/L (136-145); TOTAL PROTEIN 6.1 GM/DL (6.4-8.2)
== END ==
LOC: M LAB 12:00
PROVIDERS: ATTEND Student in an Organized Health Care Education/Training Program
DX: R60.0 Localized edema (principal)

== ENCOUNTER 2020-12-20 16:20 | Emergency (ER) | payer OTHER ==
[~2020-12-20] VITALS: Ht 154.9 cm; Wt 81.0 kg
[~2020-12-20 16:20] MED LIST changes: +ACYC1TAB; +ACYC1TAB PO; -ACYC400T; -ACYC400T PO
[2020-12-20 17:34] LABS: BASO % 0.2 % (0.0-1.0); EOS # 0.1 10^3/uL (0.0-0.5); EOS % 1.9 % (0.0-3.0); LYMPH # 1.8 10^3/uL (1.5-5.0); MEAN CORPUSCULAR HEMOGLOBIN 30.3 pg (27.0-33.0); MEAN CORPUSCULAR HGB CONC 31.6 g/dl (32.0-36.5); MONO # 0.3 10^3/uL (0.0-0.8); MONO % 7.7 % (2.0-8.0); NEUTROPHILS # 2.1 10^3/uL (1.5-8.5); PLATELET COUNT, AUTOMATED 196 10^3/uL (150-450); RED BLOOD COUNT 3.96 10^6/uL (4.00-5.40); WHITE BLOOD COUNT 4.3 10^3/uL (4.0-10.0)
--- NOTE | 2020-12-20 17:37 | REP ---
INDICATION: CHEST PAIN. COMPARISON: 11/28/2020 TECHNIQUE: Portable FINDINGS: The technique utilized in obtaining the radiograph has magnified the cardiac silhouette and accentuated the interstitial markings. The superior mediastinal structures are midline. The cardiac silhouette is unremarkable in size, shape, and position. The diaphragmatic surfaces of the lungs are regular, and the costophrenic angles are clear. The pulmonary hernandez are clear. The imaged osseous structures are intact. IMPRESSION: There is no acute cardiopulmonary disease. <Electronically signed by Jere Holden > 12/20/20 [id number]
[2020-12-20 17:47] LABS: INR 0.86; PROTHROMBIN TIME 11.9 SECONDS (12.5-14.3)
[2020-12-20 17:48] LABS: PARTIAL THROMBOPLASTIN TIME 22.5 SECONDS (24.2-38.5)
[2020-12-20 18:14] LABS: ALBUMIN 3.1 GM/DL (3.2-5.2); ALT/SGPT 45 U/L (12-78); BILIRUBIN,DIRECT < 0.1 MG/DL (0.0-0.2); BILIRUBIN,TOTAL 0.2 MG/DL (0.2-1.0); BLOOD UREA NITROGEN 10 MG/DL (7-18); CALCIUM LEVEL 8.8 MG/DL (8.8-10.2); CARBON DIOXIDE LEVEL 26 MEQ/L (21-32); CHLORIDE LEVEL 107 MEQ/L (98-107); CK-MB VALUE MASS 1.3 NG/ML (<3.6); CPK CREATINE PHOSPHOKINASE 78 U/L (26-192); FREE T4 0.91 NG/DL (0.76-1.46); GLOMERULAR FILTRATION RATE > 60.0 (>45); GLUCOSE, FASTING 142 MG/DL (70-100); LIPASE 137 U/L (73-393); MB/CK RELATIVE INDEX 1.67 (< OR =4); POTASSIUM SERUM 3.6 MEQ/L (3.5-5.1); SODIUM LEVEL 140 MEQ/L (136-145); TOTAL PROTEIN 5.8 GM/DL (6.4-8.2); TROPONIN I < 0.02 NG/ML (< 0.10)
--- NOTE | 2020-12-20 19:32 | ECGEPIP ---
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
[2020-12-20] MEDS ORDERED: CARA1TAB6 PO (19:38)
[2020-12-20] MEDS ORDERED: RIZA5TAB PO (20:17)
[2020-12-20] MEDS ORDERED: DIPH2.5T14 PO (20:17)
[2020-12-20] MEDS ORDERED: CYCL-707 PO (20:17)
[2020-12-20] MEDS ORDERED: FURO40TA2 PO (20:17)
[2020-12-20 20:30] VITALS: BP 109/71
== END 2020-12-20 20:57 | disposition home or self-care (01) ==
LOC: M ED 16:20
DX: K21.9 Gastro-esophageal reflux disease without esophagitis (principal); G43.909 Migraine, unspecified, not intractable, without status migrainosus; M19.90 Unspecified osteoarthritis, unspecified site; Z79.899 Other long term (current) drug therapy; Z79.818 Long term (current) use of other agents affecting estrogen receptors and estrogen levels; Z88.1 Allergy status to other antibiotic agents; Z88.5 Allergy status to narcotic agent; Z88.8 Allergy status to other drugs, medicaments and biological substances; Z91.018 Allergy to other foods; Z91.040 Latex allergy status; J30.89 Other allergic rhinitis

== ENCOUNTER → 2020-12-21 | Outpatient (CLI) | payer OTHER ==
[~2020-12-21] MED LIST changes: +ACYC1CAP20 PO; +ASPI81TA26 PO; +ATOR1TAB21 PO; +CARA1TAB6 PO; +DIPH2.5T14 PO; +FLUO15CR3 TOP; +FLUO1SOL TOP; +FURO40TA2 PO; +KETO0.02 OU; +MI-A80CH PO; +PIME1CRE TOP; +RIZA5TAB PO; +TRIA55AE2 NARES
--- NOTE | 2020-12-22 10:23 | REP ---
INDICATION: CERVICAL POST LAMINECTOMY SYNDROME. COMPARISON: Plain film cervical spine 12/22/2015 TECHNIQUE: Sagittal T1, T2, STIR, axial T1 and T2 weighted images of the cervical spine obtained. Postcontrast T1 images obtained. FINDINGS: There is anterior cervical diskectomy and fusion, C3, C4, C5 level. Hardware artifact limits evaluation in the immediate vicinity of the hardware. On the sagittal T2 weighted images, no definite limiting canal stenosis. Craniovertebral junction is unremarkable. Cervical cord appears normal in its course, caliber and signal characteristics. On review of axial images, At C2-3 no significant canal or foraminal narrowing At C3-4 disc-osteophyte complex without significant canal or foraminal narrowing. At C4-5 disc-osteophyte complex with mild canal narrowing, moderate left and mild right foraminal narrowing. At C5-6 mild canal narrowing and no significant foraminal narrowing. At C6-7 mild left foraminal narrowing, mild canal stenosis and no significant right foraminal narrowing. At C7-T1 moderate left foraminal narrowing, mild right foraminal narrowing and mild canal stenosis. IMPRESSION: 1. Anterior cervical discectomy and fusion C3 through C5 levels. 2. No limiting canal stenosis. 3. Multilevel foraminal narrowing as described, moderate on the left at C4-5 and C7-T1 levels. <Electronically signed by Siva Alcazar > 12/22/20 1016
== END ==
LOC: M PLARAD 13:30
PROVIDERS: ATTEND Family Medicine
DX: M96.1 Postlaminectomy syndrome, not elsewhere classified (principal); M48.02 Spinal stenosis, cervical region

== ENCOUNTER → 2020-12-23 | Outpatient (CLI) | payer OTHER ==
[~2020-12-23] MED LIST changes: -ACYC1CAP20 PO; -ASPI81TA26 PO; -ATOR1TAB21 PO; -FLUO15CR3 TOP; -FLUO1SOL TOP; -KETO0.02 OU; -MI-A80CH PO; -PIME1CRE TOP; -TRIA55AE2 NARES
--- NOTE | 2020-12-24 07:29 | REP ---
INDICATION: EDEMA / ? VVI COMPARISON: None. TECHNIQUE: Smith scale and color Doppler evaluation right and left lower extremity using linear high frequency transducer including reflux evaluation. FINDINGS: Ultrasound examination of the right and left lower extremity deep venous structures from the common femoral vein to the popliteal vein demonstrates normal compressibility flow and wave patterns in response to respiration and augmentation. There is no evidence for deep venous thrombosis. 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 Right and left lower extremity demonstrate no evidence for reflux. IMPRESSION: No evidence for deep venous thrombosis. No evidence for reflux. <Electronically signed by Donte Everett > 12/24/20 [id number]
== END ==
LOC: M RAD 10:16
PROVIDERS: ATTEND Student in an Organized Health Care Education/Training Program
DX: R60.0 Localized edema (principal)

== ENCOUNTER → 2020-12-27 | Outpatient (CLI) | payer OTHER ==
--- NOTE | 2020-12-28 07:35 | REP ---
INDICATION: IBS ACUTE ABDOMEN PAIN / LABS 1ST COMPARISON: None. TECHNIQUE: Upright view of the chest with supine and upright views of the abdomen and pelvis. FINDINGS: Frontal upright view of the chest demonstrates no acute cardiopulmonary process or free air below the diaphragm to suspect pneumoperitoneum. Supine and upright views of the abdomen and pelvis demonstrate nonspecific bowel gas pattern without obstruction or perforation. No organomegaly. No abnormal calcifications. Skeletal structures normal for age. Evidence for prior cholecystectomy. IMPRESSION: Nonspecific bowel gas pattern. <Electronically signed by Donte Everett > 12/27/20 1109
== END ==
LOC: M RAD 10:35
PROVIDERS: ATTEND Physician Assistant Medical
DX: R10.0 Acute abdomen (principal); K58.9 Irritable bowel syndrome, unspecified; Z90.49 Acquired absence of other specified parts of digestive tract

== ENCOUNTER → 2020-12-27 | Outpatient (CLI) | payer OTHER ==
[2020-12-28 16:21] LABS: ANTINUCLEAR ANTIBODIES DIRECT Negative (Negative)
== END ==
LOC: M LAB 10:29
PROVIDERS: ATTEND Student in an Organized Health Care Education/Training Program
DX: R60.0 Localized edema (principal)

== ENCOUNTER → 2021-01-06 | Outpatient (CLI) | payer OTHER ==
--- NOTE | 2021-01-08 05:15 | ECWPNPC ---
PATIENT NAME: DELIA BLOUNT : 1960 GENDER: FEMALE VISIT DATE: 01/06/2021 DISCHARGE DATE: 01/06/21 1121 VISIT LOCKED DATE TIME: PHYSICIAN: BENIGNO HUGHES PHYSICIAN PAGER NO: ACTIVE RESOURCE: BENIGNO HUGHES REASON FOR APPOINTMENT 1. MRI REVIEW HISTORY OF PRESENT ILLNESS PAIN CENTER INTAKE QUESTIONS: 60-YEAR-OLD FEMALE IN FOR CHRONIC PAIN FOLLOW-UP. SHE RATES PAIN CURRENTLY A 7/10. SHE FEELS HER MEDICATIONS ARE HELPFUL AND DENIES MED SIDE EFFECTS AT THIS TIME. 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 THE PATIENT STATES SHE HAD NECK SURGERY DONE TWICE, BUT THE PAIN, SPASMS, AND HEADACHES STILL PERSIST. GENERAL: -. FALL RISK SCREENING: SCREENING : NO FALLS REPORTED IN THE LAST YEAR. PAIN SCREENING: PATIENT HAS A COMPLAINT OF ACUTE OR CHRONIC PAIN :YES LOCATION OF PAIN:NECK, BOTH SHOULDERS INTENSITY OF PAIN (SCALE OF 1 TO 10):7 WHAT DOES YOUR PAIN FEEL LIKE:ACHING, BURNING, CONTINOUS, INTERMITTENT, TENDER, THROBBING, SHOOTING DURATION:CONTINOUS, CONSTANT, ALL DAY, AWAKENS FROM SLEEP PAIN IS INCREASED BY:ACTIVITIES PAIN IS DECREASED BY:USE OF PAIN MEDICATIONS NURSING NOTE: -. CURRENT MEDICATIONS TAKING ALBUTEROL SULFATE HFA 108 (90 BASE) MCG/ACT AEROSOL SOLUTION 2 PUFFS NEEDED INHALATION EVERY 4 HRS TAKING OMEGA 3 1000 MG CAPSULE 1 CAPSULE ORALLY ONCE A DAY TAKING LUTEIN VISION BLEND CAPSULE ORALLY DAILY TAKING VITAMIN D3 5000 UNITS CAPSULE 1 CAPSULE ORALLY ONCE A DAY TAKING MEDICAL COMPRESSION STOCKINGS - MISCELLANEOUS DIRECTED TOPICALLY DAILY; ICD10: R60.0 TAKING DICYCLOMINE HCL 20 MG TABLET 1 TABLET ORALLY FOUR TIMES A DAY TAKING ESTRACE 1 MG TABLET 1 TABLET ORALLY ONCE DAILY TAKING ACYCLOVIR 400 MG TABLET 1 TABLET ORALLY TWICE A DAY NEEDED FOR HERPES OUTBREAK TAKING DIPHENOXYLATE-ATROPINE 2.5-0.025 MG TABLET 1 TABLET NEEDED ORALLY TWO TIMES A DAY TAKING PANTOPRAZOLE SODIUM 40 MG TABLET DELAYED RELEASE TAKE ONE TABLET BY MOUTH TWICE A DAY ORALLY BID TAKING AZELASTINE HCL 0.1 % SOLUTION 1 PUFF IN EACH NOSTRIL NASALLY TWICE A DAY TAKING TRAMADOL HCL 50 MG TABLET 1 TAB ORALLY EVERY 6 HOURS NEEDED PAIN MDD=4 TAKING CYMBALTA 30 MG CAPSULE DELAYED RELEASE PARTICLES 1 CAPSULE ORALLY ONCE A DAY FOR PAIN TAKING CYCLOBENZAPRINE HCL 10 MG TABLET 1 TABLET ORALLY FOR SPSMS AND PAIN THREE TIMES A DAY NEEDED MDD3 TAKING LYRICA 150 MG CAPSULE 1 CAPSULE ORALLY FOR PAIN THREE TIMES DAILY TAKING RIZATRIPTAN BENZOATE 5 MG TABLET 1 TABLET ORALLY X1 NEEDED FOR MIGRAINE HEADACHE MAY REPEAT IN 2 HRS IF NEDED X2 TAKING CHOLESTYRAMINE 4 GM/DOSE POWDER 1 SCOOP ORALLY TWICE A DAY TAKING LASIX 40 MG TABLET 1 TABLET ORALLY ONCE A DAY TAKING FLUOCINONIDE 0.05 % SOLUTION 1 APPLICATION EXTERNALLY NIGHTLY TO SCALP X 1 WEEK, THEN ONCE WEEKLY FOR DRY ITCHY SCALP TAKING ELIDEL 1 % CREAM 1 APPLICATION EXTERNALLY APPLY FULL FACE IN THE MORNING TAKING AZELEX 20 % CREAM 1 APPLICATION EXTERNALLY APPLY TO TZONE NIGHTLY TAKING ESTRACE 0.1 MG/GM CREAM 0.5 GM VAGINAL TWICE A WEEK TAKING FLUOCINOLONE ACETONIDE 0.01 % SOLUTION 1 APPLICATION EXTERNALLY TWICE A DAY TAKING ASPIRIN 81 MG TABLET DELAYED RELEASE 1 TABLET ORALLY ONCE A DAY TAKING ATORVASTATIN CALCIUM 20 MG TABLET 1 TABLET ORALLY ONCE A DAY NOT-TAKING ASPIRIN 81 81 MG TABLET DELAYED RELEASE 1 TABLET ORALLY ONCE A DAY, NOTES: TAKEN FOR 3 WEEKS NOT-TAKING FLORANEX - PACKET 1 PACKET ORALLY DAILY NOT-TAKING DAILY PROBIOTIC - CAPSULE DIRECTED ORALLY DAILY NOT-TAKING FLUOCINOLONE ACETONIDE 0.025 % CREAM APPLY THIN LAYER TO AFFECTED AREAS ON BOTH LEGS EXTERNALLY TWICE A DAY NEEDED NOT-TAKING CETIRIZINE HCL 10 MG CAPSULE 1 CAP ORALLY QHS NOT-TAKING LORATADINE 10 MG TABLET 1 TABLET ORALLY ONCE A DAY UNKNOWN BENADRYL 25 MG TABLET 1 TABLET ORALLY DAILY BEFORE BEDTIME/ NEEDED UNKNOWN VOLTAREN 1 % GEL DIRECTED TRANSDERMAL FOUR TIMES DAILY NEEDED UNKNOWN CIPRO 250 MG TABLET 1 TABLET ORALLY EVERY 12 HRS UNKNOWN VITAMIN B12 1000 MCG TABLET EXTENDED RELEASE 1 TABLET ORALLY ONCE A DAY UNKNOWN GUAIFENESIN 400 MG TABLET 1 TABLET NEEDED ORALLY EVERY 4 HOURS NEEDED COUGH, NOTES: NOT TO EXCEED 2.4G IN 24 HOURS UNKNOWN FLUTICASONE PROPIONATE HFA 110 MCG/ACT AEROSOL 1 PUFF INHALATION TWICE A DAY UNKNOWN RANITIDINE HCL 150 MG TABLET 1 TABLET AT BEDTIME ORALLY ONCE A DAY UNKNOWN PEPPERMINT OIL 50 MG CAPSULE DELAYED RELEASE DIRECTED ORALLY DAILY UNKNOWN ACYCLOVIR 800 MG TABLET 1 TABLET ORALLY TWICE A DAY UNKNOWN LACTOBACILLUS - TABLET DIRECTED ORALLY TID UNKNOWN PROTONIX 40 MG TAB 1 TAB ORALLY TWICE DAILY UNKNOWN COLACE 100 MG CAPSULE 1 CAPSULE NEEDED ORALLY ONCE A DAY UNKNOWN SIMETHICONE 80 MG TABLET CHEWABLE 1 TABLET AFTER MEALS AND AT BEDTIME NEEDED ORALLY FOUR TIMES A DAY UNKNOWN ACYCLOVIR 400 MG TABLET 1 TABLET ORALLY TWICE A DAY NEEDED UNKNOWN ZANTAC 150 MG TABLET 1 TABLET ORALLY BID UNKNOWN CHERATUSSIN AC 100-10 MG/5ML SYRUP 5 ML ORALLY TWICE DAILY NEEDED UNKNOWN ZOFRAN 8 MG TABLET 1 TABLET ORALLY TWICE A DAY UNKNOWN [id number] 50-325-40 MG TABLET 1 TABLET NEEDED ORALLY EVERY 4 HRS UNKNOWN METOPROLOL SUCCINATE 25 MG CAPSULE ER 24 HOUR SPRINKLE 1 CAPSULE ORALLY ONCE A DAY FOR MIGRAINE PROPHYLAXIS UNKNOWN ZOFRAN 4 MG TABLET 1 TABLETS ORALLY FOR NAUSEAS EVERY 6 HOURS NEEDED MDD3 UNKNOWN CROMOLYN SODIUM 4 % SOLUTION 1 DROP INTO AFFECTED EYE OPHTHALMIC FOUR TIMES A DAY MEDICATION LIST REVIEWED AND RECONCILED WITH THE PATIENT PAST MEDICAL HISTORY ESOPHAGEAL REFLUX ASTHMA MIGRAINE HEADACHE ARTHRITIS ABNORMAL PAP SMEAR/SEVERAL JOEL 3 W/CRYO (DR. 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 FIBROMYALGIA STOMACH ULCER HORMONE REPLACEMENT THERAPY (POSTMENOPAUSAL) POSTMENOPAUSAL ATROPHIC VAGINITIS CERVICAL POST-LAMINECTOMY SYNDROME CDIFF HSTORY OF LOU ALLERGIES SEA CRAB: ANAPHYLAXIS - ALLERGY LATEX: RASH - ALLERGY VANCOMYCIN HCL: HIVES/BREATHING PROBLEMS - ALLERGY DOXYCYCLINE CALCIUM: HIVES/BREATHING PROBLEMS - ALLERGY TOPAMAX: HEADACHE HORSE HAIR SURGICAL HISTORY HYSTERECTOMY, TOTAL WITH BSO-DYSPLASIA- C-3 1993 CHOLECYSTECTOMY 1993 BREAST BIOPSY C5-C6 FUSION ENDOSCOPY /COLONOSCOPY 2010, 2013 ENDOSCOPY-BENIGN FINDINGS, COLONOSCOPY - NONBLEEDING INTERNAL HEMORRHOIDS, DIVERTICULA IN RECTO-SIGMOID. PATH REPORT: FRAGMENTS OF COLONIC MUCOSA WITH INCREASED LYMPHOPLASMA INFILTRATES OF LAMINA PROPRIA 01/2014 ANTERIOR CERVICAL DISCECTOMY AND FUSION (ACDF) BY DR. NUSRAT THOMPSON, [facility] 06/04/15 LEFT CTS RELEASE 09/13/[address] GAGNON 04/2018 LEFT HAND CARPAL TUNNEL RELEASE 2018 FAMILY HISTORY FATHER: ALIVE MOTHER: , ANEURYSM, OSTEOPOROSIS SIBLINGS: ALIVE, HEART DISEASE SON(S): ALIVE 1 BROTHER(S) , 2 SISTER(S) - HEALTHY. 2 SON(S) - HEALTHY. DENIES FAMILY HX OF SKIN CANCER AND MELANOMA. SOCIAL HISTORY GENERAL: TOBACCO USE ARE YOU A:FORMER SMOKER HOW LONG HAS IT BEEN SINCE YOU LAST SMOKED?5-10 YEARS LATEX QUESTIONNAIRE LATEX ALLERGY : HAVE YOU EVER DEVELOPED ANY TYPE OF REACTION AFTER HANDLING LATEX PRODUCTS SUCH RUBBER GLOVES, CONDOMS, DIAPHRAGMS, BALLOONS, SOCKS, OR UNDERWEAR?YES KNOWN LATEX ALLERY-RASH AND ITCHING LATEX ALLERGY : HAVE YOU EVER DEVELOPED ANY TYPE OF REACTION DURING OR AFTER DENTAL APPOINTMENT, VAGINAL/RECTAL EXAMINATION, SURGICAL PROCEDURE, OR ANY OTHER EXPOSURE?YES - PLEASE INDICATE :SURGICAL PROCEDURE LATEX RISK : HAVE YOU EVER HAD ANY DIFFICULTY BREATHING OR HIVES AFTER EATING OR HANDLING ANY FRUITS, OR VEGETABLES; SUCH KIWI, BANANAS, STONE FRUITS, OR CHESTNUTSNO LATEX RISK : DO YOU HAVE A PREVIOUS PERSONAL HISTORY OF MORE THAN NINE SURGERIES, SPINA BIFIDA, OR REPEATED CATHERIZATIONS? YES - PLEASE INDICATE : > 9 SURGERIES LATEX RISK : ARE YOU FREQUENTLY EXPOSED TO LATEX PRODUCTS IN YOUR OCCUPATION?NO DATE ASKED : 01/06/2021 ALCOHOL USE: NO. BMI CARE GOAL FOLLOW-UP ABOVE NORMAL BMI FOLLOW-UPGIVING ENCOURAGEMENT TO EXERCISE ALCOHOL SCREENING DID YOU HAVE A DRINK CONTAINING ALCOHOL IN THE PAST YEAR?NO POINTS0 INTERPRETATIONNEGATIVE RECREATIONAL DRUG USE DRUG USE?NO CAFFEINE CAFFEINE USE?NO HIV / HEP-C SCREENING HIV TEST OFFERED TO PATIENT:YES DATE OFFERED:10/25/2017 HEP-C TEST OFFERED TO PATIENT:YES DATE OFFERED:10/25/2017 TEST ACCEPTED:NO BROCHURE PROVIDED TO PATIENTNO LANGUAGE LANGUAGES SPOKEN:SCOTTISH OTHER-NEPALI IS HER FIRST LANGUAGE EDUCATION LEVEL OF EDUCATION:HIGH SCHOOL LEARNING BARRIERS / SPECIAL NEEDS CHANGE FROM LAST VISIT?NO BARRIERS TO LEARNING?NO HEARING IMPAIRED?YES :HEARING AIDES VISION IMPAIRED?YES :CORRECTIVE LENSES COGNITIVELY IMPAIRED?NO READINESS TO LEARN?YES LEARNING PREFERENCES?NO LEARNING CAPABILITIES PRESENT?YES EMOTIONAL BARRIERS?NO SPECIAL DEVICES?NO 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 DIET: REGULAR. EXERCISE: WALKING OCC. MARITAL STATUS: SINGLE, ENGAGED. OTHERS AT HOME: [place]. - PFS REFERRAL NEEDED?NO CLERGY REFERRAL NEEDED?NO PUBLIC HEALTH REFERRAL NEEDED?NO WAS THE PROVIDER NOTIFIED OF ANY PERTINENT INFO?YES HAS THE PATIENT BEEN EDUCATED REGARDING HIS/HER PLAN OF CARE?YES HAS THE PATIENT BEEN EDUCATED REGARDING PAIN, THE RISK FOR PAIN, THE IMPORTANCE OF EFFECTIVE PAIN MANAGEMENT, AND THE PAIN ASSESSMENT PROCESS?YES ADVANCE DIRECTIVE ADVANCE DIRECTIVE DISCUSSED WITH PATIENT:YES PT DPES NOT HAVE ANY ADVANCED DIRECTIVES AND SHE DECLINED HCP INFORMATION AT THIS TIME. USED TO SMOKE FOR OVER 20 YRS ON/OFF WITH 3 CIGS/DAYREVIEWED WITH PATIENT 11/22/18 1447 JS. HOSPITALIZATION/MAJOR DIAGNOSTIC PROCEDURE ACDF SURGERY, [facility] 925/15-06/07/15 C-DIFF 08/14/17-08/18/17 REVIEW OF SYSTEMS CONSTITUTIONAL: ANY RECENT FEVER NO . CHILLS NO . WEIGHT CHANGE OF UNKNOWN REASONS NO . GASTROENTEROLOGY: NEW UNEXPLAINABLE CHANGES IN BOWEL CONTROL NO . CONSTIPATION NO . GENITOURINARY: ANY NEW CHANGE IN BLADDER CONTROL? NO . NEUROLOGY: NEW ONSET DIZZINESS OR NEUROLOGICAL CHANGES NOT MENTIONED NO . NEW NUMBNESS OR PAIN PATTERNS NOT MENTIONED AND PERTINENT TO TODAY'S VISIT NO . CARDIOLOGY: NEW CHEST PRESSURE NO . PATIENT DENIES NO . RESPIRATORY: UNEXPLAINABLE COUGH NO . NEW SHORTNESS OF BREATH NO . VITAL SIGNS WT 177.8 LBS, HT 60 IN, BMI 34.72 INDEX, BP 109/79 MM HG, HR 71 /MIN, RR 18 /MIN, TEMP 97.4 F, OXYGEN SAT % 98%, SAFE IN ENV? (Y/N) YES, NA INITIALS AW 1055T.DENI BROWER. EXAMINATION GENERAL EXAMINATION: GENERALNO ACUTE DISTRESS, WELL NOURISHED AND HYDRATED. PSYCHAPPROPRIATE MOOD AND AFFECT . LUNGS:CLEAR TO AUSCULTATION BILATERALLY, NO WHEEZES, RHONCHI, RALES. HEART:NO MURMURS, REGULAR RATE AND RHYTHM. ASSESSMENTS CERVICAL POST-LAMINECTOMY SYNDROME - M96.1 (PRIMARY), RISK: (NULL) TREATMENT CERVICAL POST-LAMINECTOMY SYNDROME NOTES: 60-YEAR-OLD FEMALE IN FOR CHRONIC PAIN FOLLOW-UP. GIVEN PRESENTING SYMPTOMS RECOMMENDED CONTINUATION OF CURRENT MEDICATION REGIMEN WITH FOLLOW-UP IN 3 MONTHS. PATIENT HAS EXPRESSED UNDERSTANDING OF AND WAS IN AGREEMENT WITH TREATMENT PLAN. GIVEN TIME TO ASK QUESTIONS AND EXPRESS CONCERNS. , ISTOP REGISTRY REVIEWED AND DEMONSTRATES COMPLLIANCE. (REF #[id number] ) BRINGS IN MEDICATIONS WHICH IS APPROPRIATE FOR WHAT WAS DISPENSED. RECENT URINE TOXICOLOGY REVIEWED. NO UNAUTHORIZED MEDICATIONS. NO ILLICIT SUBSTANCES AND PRESCRIBED MEDICATIONS WERE PRESENT. PROCEDURES PN WORKMANS' COMP OPINION IN YOUR OPINION, WAS THE INCIDENT THAT THE PATIENT DESCRIBED THE COMPETENT MEDICAL CAUSE OF THIS INJURY/ILLNESS? YES ARE THE PATIENT'S COMPLAINTS CONSISTENT WITH HIS/HER HISTORY OF THE INJURY/ILLNESS? YES IS THE PATIENT'S HISTORY OF THE INJURY/ILLNESS CONSISTENT WITH YOUR OBJECTIVE FINDING? YES WHAT IS THE PERCENTAGE OF TEMPORARY IMPAIRMENT? TOTAL = 100% IS THE PATIENT WORKING? NO DOCTOR ON SITE: GILBERTO ESCOBAR MD PROCEDURE CODES FA211 ESTABILISHED PATIENT [facility] CHARGE DISPOSITION & COMMUNICATION FOLLOW UP 4 WEEKS (REASON: NECK PAIN ) ELECTRONICALLY SIGNED BY CLARISSA PACKER ON 01/07/2021 AT 08:40 AM EDT DISCLAIMER : THIS IS A VISIT SUMMARY EXTRACTED FROM THE [employer] CHART. IT IS NOT A COPY OF THE [employer] PROGRESS NOTE. MARY
== END ==
LOC: M PAIN 10:45
PROVIDERS: ATTEND Family Medicine
DX: M96.1 Postlaminectomy syndrome, not elsewhere classified (principal); K21.9 Gastro-esophageal reflux disease without esophagitis; J45.909 Unspecified asthma, uncomplicated; G43.909 Migraine, unspecified, not intractable, without status migrainosus; H40.9 Unspecified glaucoma; A60.09 Herpesviral infection of other urogenital tract; F32.9 Major depressive disorder, single episode, unspecified; M79.7 Fibromyalgia; N95.2 Postmenopausal atrophic vaginitis; Z87.891 Personal history of nicotine dependence; Z79.82 Long term (current) use of aspirin; Z79.891 Long term (current) use of opiate analgesic; Z79.899 Other long term (current) drug therapy; Z88.1 Allergy status to other antibiotic agents; Z88.8 Allergy status to other drugs, medicaments and biological substances; Z91.013 Allergy to seafood; Z91.040 Latex allergy status

== ENCOUNTER 2021-01-20 09:20 | Emergency (ER) | payer OTHER ==
[~2021-01-20] VITALS: Ht 154.9 cm; Wt 80.2 kg
[~2021-01-20 09:20] MED LIST changes: +ACYC1CAP20 PO; +ASPI81TA26 PO; +ATOR1TAB21 PO; +FLUO15CR3 TOP; +FLUO1SOL TOP; +KETO0.02 OU; +MI-A80CH PO; +PIME1CRE TOP; +TRIA55AE2 NARES
[2021-01-20 09:58] LABS: BASO % 0.4 % (0.0-1.0); EOS # 0.1 10^3/uL (0.0-0.5); EOS % 1.1 % (0.0-3.0); HEMATOCRIT 43.6 % (36.0-47.0); HEMOGLOBIN 14.1 g/dl (12.0-15.5); LYMPH # 1.7 10^3/uL (1.5-5.0); LYMPH % 37.8 % (24.0-44.0); MEAN CORPUSCULAR HEMOGLOBIN 30.5 pg (27.0-33.0); MEAN CORPUSCULAR HGB CONC 32.3 g/dl (32.0-36.5); MEAN CORPUSCULAR VOLUME 94.4 fl (80.0-96.0); MONO # 0.3 10^3/uL (0.0-0.8); NEUTROPHILS # 2.5 10^3/uL (1.5-8.5); NEUTROPHILS % 54.5 % (36.0-66.0); PLATELET COUNT, AUTOMATED 225 10^3/uL (150-450); RED BLOOD COUNT 4.62 10^6/uL (4.00-5.40); WHITE BLOOD COUNT 4.5 10^3/uL (4.0-10.0)
[2021-01-20 10:11] LABS: INR 0.92; PROTHROMBIN TIME 12.5 SECONDS (12.5-14.3)
[2021-01-20 10:12] LABS: PARTIAL THROMBOPLASTIN TIME 22.6 SECONDS (24.2-38.5)
--- NOTE | 2021-01-20 10:26 | REP ---
INDICATION: CHEST PAIN. COMPARISON: Frontal view 12/27/2020 FINDINGS: The technique utilized in obtaining the radiograph has magnified the cardiac silhouette and accentuated the interstitial markings. The superior mediastinal structures are midline. The cardiac silhouette is unremarkable in size, shape, and position. The diaphragmatic surfaces of the lungs are regular, and the costophrenic angles are clear. The pulmonary hernandez are clear. The imaged osseous structures are intact. IMPRESSION: There is no acute cardiopulmonary disease. <Electronically signed by Jere Holden > 01/20/21 102
[2021-01-20 10:29] LABS: ALBUMIN 3.5 GM/DL (3.2-5.2); ALT/SGPT 56 U/L (12-78); BILIRUBIN,DIRECT 0.2 MG/DL (0.0-0.2); BILIRUBIN,TOTAL 0.5 MG/DL (0.2-1.0); BLOOD UREA NITROGEN 12 MG/DL (7-18); CALCIUM LEVEL 9.2 MG/DL (8.8-10.2); CARBON DIOXIDE LEVEL 29 MEQ/L (21-32); CHLORIDE LEVEL 106 MEQ/L (98-107); CK-MB VALUE MASS 1.6 NG/ML (<3.6); CPK CREATINE PHOSPHOKINASE 73 U/L (26-192); FREE T4 0.96 NG/DL (0.76-1.46); GLOMERULAR FILTRATION RATE > 60.0 (>45); GLUCOSE, FASTING 102 MG/DL (70-100); LIPASE 72 U/L (73-393); MB/CK RELATIVE INDEX 2.19 (< OR =4); POTASSIUM SERUM 3.9 MEQ/L (3.5-5.1); SODIUM LEVEL 141 MEQ/L (136-145); TOTAL PROTEIN 6.6 GM/DL (6.4-8.2); TROPONIN I < 0.02 NG/ML (< 0.10)
[2021-01-20 13:37] LABS: CK-MB VALUE MASS < 1.0 NG/ML (<3.6); CPK CREATINE PHOSPHOKINASE 64 U/L (26-192); MB/CK RELATIVE INDEX 1.56 (< OR =4); TROPONIN I < 0.02 NG/ML (< 0.10)
[2021-01-20 14:47] VITALS: BP 110/72
--- NOTE | 2021-01-21 04:49 | ECGEPIP ---
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
--- NOTE | 2021-01-21 04:52 | ECGEPIP ---
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
== END 2021-01-20 14:49 | disposition home or self-care (01) ==
LOC: M ED 09:20
DX: R07.89 Other chest pain (principal); R06.02 Shortness of breath; J45.909 Unspecified asthma, uncomplicated; K21.9 Gastro-esophageal reflux disease without esophagitis; G47.33 Obstructive sleep apnea (adult) (pediatric); Z79.899 Other long term (current) drug therapy; Z79.82 Long term (current) use of aspirin; Z88.1 Allergy status to other antibiotic agents; Z88.5 Allergy status to narcotic agent; Z88.8 Allergy status to other drugs, medicaments and biological substances; Z91.018 Allergy to other foods; Z91.040 Latex allergy status; Z87.891 Personal history of nicotine dependence

== ENCOUNTER → 2021-01-23 | Outpatient (CLI) | payer OTHER | LOC: M LABSMTC 08:47 | PROVIDERS: ATTEND Anesthesiology | DX: Z01.818 Encounter for other preprocedural examination (principal); Z20.822 Contact with and (suspected) exposure to COVID-19 ==

== ENCOUNTER 2021-01-28 10:16 | Day surgery (SDC) | payer OTHER ==
[~2021-01-28] VITALS: Ht 154.9 cm; Wt 78.5 kg
[~2021-01-28 10:16] MED LIST changes: +NS 1,000 ML IV ONE
[2021-01-28] MEDS ORDERED: LIDOCAINE 2% 100MG/5ML SDV (FOR ANES.) As Ordered ONE (11:12)
[2021-01-28] MEDS ORDERED: propofoL 200 MG/20 ML VIAL As Ordered ONE ×2 (11:12→11:43)
[2021-01-28] MEDS ORDERED: fentaNYL 100 MCG/2 ML INJECTION (J3010) As Ordered ONE (11:12)
[2021-01-28] MEDS ORDERED: ePHEDrine SULFATE 25 MG/5 ML(5MG/ML) SYRINGE As Ordered ONE (11:43)
[2021-01-28 12:10] VITALS: BP 111/61
--- NOTE | 2021-01-28 12:13 | ROOR ---
Patient Name: Kylie Andres Procedure Date: 01/28/2021 11:14 AM Date of : 1960 Age: 60 Room: [facility] Gender: Female Note Status: Finalized Procedure: Upper GI endoscopy Indications: Epigastric abdominal pain, Endoscopy to assess diarrhea in patient suspected of having disease of the small-bowel Providers: Osmar Villalpando MD Referring MD: Rosalba Kelly Do Requesting Provider: Medicines: Monitored Anesthesia Care Complications: No immediate complications. Procedure: Pre-Anesthesia Assessment: - Prior to the procedure, a History and Physical was performed, and patient medications and allergies were reviewed. The patient is competent. The risks and benefits of the procedure and the sedation options and risks were discussed with the patient. All questions were answered and informed consent was obtained. Patient identification and proposed procedure were verified by the physician, the nurse and the anesthesiologist in the procedure room. Mental Status Examination: alert and oriented. Airway Examination: normal oropharyngeal airway and neck mobility. Respiratory Examination: clear to auscultation. CV Examination: normal. Prophylactic Antibiotics: The patient does not require prophylactic antibiotics. Prior Anticoagulants: The patient has taken no previous anticoagulant or antiplatelet agents. ASA Grade Assessment: II - A patient with mild systemic disease. After reviewing the risks and benefits, the patient was deemed in satisfactory condition to undergo the procedure. The anesthesia plan was to use monitored anesthesia care (MAC). Immediately prior to administration of medications, the patient was re-assessed for adequacy to receive sedatives. The heart rate, respiratory rate, oxygen saturations, blood pressure, adequacy of pulmonary ventilation, and response to care were monitored throughout the procedure. The physical status of the patient was re-assessed after the procedure. The Colonoscope was introduced through the mouth, and advanced to the second part of duodenum. The upper GI endoscopy was accomplished without difficulty. The patient tolerated the procedure well. Findings: The examined esophagus was normal. Scattered mild inflammation characterized by congestion (edema), erythema and friability was found in the gastric antrum. Biopsies were taken with a cold forceps for Helicobacter pylori testing. Verification of patient identification for the specimen was done by the physician and nurse using the patient's name, date and medical record number. Estimated blood loss was minimal. One non-bleeding superficial gastric ulcer with a clean ulcer base (Roberto Class III) was found in the gastric fundus. The lesion was 20 mm in largest dimension. Biopsies were taken with a cold forceps for histology. The area of the papilla and examined duodenum were normal. Normal mucosa was found in the jejunum. Biopsies were taken with a cold forceps for histology. Impression: - Normal esophagus. - Gastritis. Biopsied. - Non-bleeding gastric ulcer with a clean ulcer base (Roberto Class III). Biopsied. - Normal area of the papilla and examined duodenum. - Normal mucosa was found in the jejunum. Biopsied. Recommendation: - Patient has a contact number available for emergencies. The signs and symptoms of potential delayed complications were discussed with the patient. Return to normal activities tomorrow. Written discharge instructions were provided to the patient. - High fiber diet. - Continue present medications. - Await pathology results. - Telephone GI clinic for pathology results in 2 weeks. - Return to GI clinic in [facility] (address [address], [address], [place], [facility]) in 4 -- 6 weeks. Please call GI clinic @ [phone] for apppointment date and time. - Return to primary care physician. Procedure Code(s): --- Professional --- 42315, Esophagogastroduodenoscopy, flexible, transoral; with biopsy, single or multiple Diagnosis Code(s): --- Professional --- K29.70, Gastritis, unspecified, without bleeding K25.9, Gastric ulcer, unspecified as acute or chronic, without hemorrhage or perforation R10.13, Epigastric pain R19.7, Diarrhea, unspecified CPT copyright 2019 [employer]. All rights reserved. The codes documented in this report are preliminary and upon fmd teacher review may be revised to meet current compliance requirements. Osmar Villalpando MD Osmar Villalpando MD 01/28/2021 12:12:16 PM Electronically signed by Osmar Villalpando MD Number of Addenda: 0 Note Initiated On: 01/28/2021 11:14 AM Estimated Blood Loss: Estimated blood loss was minimal.
== END 2021-01-28 12:17 | disposition home or self-care (01) ==
LOC: M OPP 10:16
PROVIDERS: ATTEND Internal Medicine Gastroenterology
DX: K29.70 Gastritis, unspecified, without bleeding (principal); K25.9 Gastric ulcer, unspecified as acute or chronic, without hemorrhage or perforation; R10.13 Epigastric pain; R19.7 Diarrhea, unspecified; K21.9 Gastro-esophageal reflux disease without esophagitis; Z79.891 Long term (current) use of opiate analgesic; Z79.899 Other long term (current) drug therapy; Z88.1 Allergy status to other antibiotic agents; Z88.8 Allergy status to other drugs, medicaments and biological substances; Z91.013 Allergy to seafood; Z91.040 Latex allergy status
CPT/HCPCS: 43239; 88305; 88313; J3010

== ENCOUNTER → 2021-02-02 | Outpatient (CLI) | payer OTHER ==
[~2021-02-02] MED LIST changes: -NS 1,000 ML IV ONE
--- NOTE | 2021-02-08 15:16 | ECHO ---
ECHOCARDIOGRAM DATE OF PROCEDURE: 02/02/2021 Age: 60 Gender: Female Height: 61 inches Weight: 176 pounds REFERRING PHYSICIAN: Rosalba Kelly M.D. INDICATION: Localized edema, unspecified. MEASUREMENTS: 2D Measurements: Aortic root 3.0 cm Left atrium 3.3 cm Intraventricular septum 1.21 cm Posterior wall 1.24 cm Left ventricle diastole 3.3 cm Aortic annulus 2.0 cm Inferior vena cava 1.7 cm Doppler Measurements: No aortic stenosis No aortic regurgitation Aortic valve velocity 124 cm/s LVOT velocity 75.9 cm/s No mitral regurgitation No mitral stenosis Mitral E velocity 68.6 cm/s Mitral A velocity 60.7 cm/s Mitral deceleration time 141 msec Very mild tricuspid regurgitation Estimated right ventricular systolic pressure 23-28 mmHg Estimated right atrial pressure 5-10 mmHg No pulmonic regurgitation MITRAL ANNULAR TISSUE DOPPLER E prime septal 7.4 cm/s, E prime lateral 11.0 cm/s DESCRIPTION: Rhythm was sinus. This was a moderately technically difficult echocardiogram. No pericardial effusion. This was a 2D, M-mode, color flow Doppler, and pulsed wave Doppler examination including mitral annular tissue Doppler. CONCLUSIONS: 1. Very mild concentric left ventricular hypertrophy. Normal left ventricle internal dimensions. Normal regional LV wall motion and wall thickening. Normal LV systolic function. LVEF 55% by visual estimate. Normal LV diastolic function. 2. Suggestive of normal estimated right ventricle systolic pressure. Normal right ventricle size and systolic function. Normal right atrial size. Normal IVC size. 3. Otherwise normal echocardiogram Doppler findings. Yves Shields M.D.
== END ==
LOC: M CARPUL 12:05
PROVIDERS: ATTEND Student in an Organized Health Care Education/Training Program
DX: I51.7 Cardiomegaly (principal)

== ENCOUNTER → 2021-02-04 | Outpatient (CLI) | payer OTHER ==
--- NOTE | 2021-02-09 02:42 | ECWPNPC ---
PATIENT NAME: DELIA BLOUNT : 1960 GENDER: FEMALE VISIT DATE: 02/04/2021 DISCHARGE DATE: 02/04/21 1144 VISIT LOCKED DATE TIME: PHYSICIAN: BENIGNO HUGHES PHYSICIAN PAGER NO: ACTIVE RESOURCE: BENIGNO HUGHES REASON FOR APPOINTMENT 1. W/C NECK PAIN HISTORY OF PRESENT ILLNESS GENERAL: HPI 60-YEAR-OLD FEMALE IN FOR CHRONIC PAIN FOLLOW-UP. PATIENT RATES HER PAIN CURRENTLY AT A 6 OUT OF 10 AND DESCRIBES IT ACHING, BURNING, AND CONTINUOUS. SHE FEELS HER MEDICATIONS ARE HELPFUL AND DENIES MED SIDE EFFECTS AT THIS TIME. PATIENT HAS HAD TRIGGER POINT INJECTIONS TO THE NECK AND SHOULDERS PREVIOUSLY WITH GOOD RESULTS EVIDENCED BY DECREASED PAIN, INCREASED FUNCTIONALITY, AND INCREASED MOBILITY. WE WILL DISCUSS REPEAT PROCEDURES TODAY. DOI 01/08/1995. -. FALL RISK SCREENING: SCREENING : NO FALLS REPORTED IN THE LAST YEAR. PAIN SCREENING: PATIENT HAS A COMPLAINT OF ACUTE OR CHRONIC PAIN :YES LOCATION OF PAIN:NECK INTENSITY OF PAIN (SCALE OF 1 TO 10):6 WHAT DOES YOUR PAIN FEEL LIKE:ACHING, BURNING, CONTINOUS, SHARP, STABBING, TENDER, THROBBING, SORE DURATION:CONTINOUS, CONSTANT, AWAKENS FROM SLEEP PAIN IS INCREASED BY:ACTIVITIES, PROLONGED STANDING PAIN IS DECREASED BY:USE OF PAIN MEDICATIONS, SITTING NURSING NOTE: -. CURRENT MEDICATIONS TAKING LASIX 40 MG TABLET 1 TABLET ORALLY ONCE A DAY TAKING ALBUTEROL SULFATE HFA 108 (90 BASE) MCG/ACT AEROSOL SOLUTION 2 PUFFS NEEDED INHALATION EVERY 4 HRS TAKING OMEGA 3 1000 MG CAPSULE 1 CAPSULE ORALLY ONCE A DAY TAKING LUTEIN VISION BLEND CAPSULE ORALLY DAILY TAKING VITAMIN D3 5000 UNITS CAPSULE 1 CAPSULE ORALLY ONCE A DAY TAKING MEDICAL COMPRESSION STOCKINGS - MISCELLANEOUS DIRECTED TOPICALLY DAILY; ICD10: R60.0 TAKING DICYCLOMINE HCL 20 MG TABLET 1 TABLET ORALLY FOUR TIMES A DAY TAKING ESTRACE 1 MG TABLET 1 TABLET ORALLY ONCE DAILY TAKING ACYCLOVIR 400 MG TABLET 1 TABLET ORALLY TWICE A DAY NEEDED FOR HERPES OUTBREAK TAKING DIPHENOXYLATE-ATROPINE 2.5-0.025 MG TABLET 1 TABLET NEEDED ORALLY TWO TIMES A DAY TAKING PANTOPRAZOLE SODIUM 40 MG TABLET DELAYED RELEASE TAKE ONE TABLET BY MOUTH TWICE A DAY ORALLY BID TAKING AZELASTINE HCL 0.1 % SOLUTION 1 PUFF IN EACH NOSTRIL NASALLY TWICE A DAY TAKING TRAMADOL HCL 50 MG TABLET 1 TAB ORALLY EVERY 6 HOURS NEEDED PAIN MDD=4 TAKING CYMBALTA 30 MG CAPSULE DELAYED RELEASE PARTICLES 1 CAPSULE ORALLY ONCE A DAY FOR PAIN TAKING CYCLOBENZAPRINE HCL 10 MG TABLET 1 TABLET ORALLY FOR SPSMS AND PAIN THREE TIMES A DAY NEEDED MDD3 TAKING LYRICA 150 MG CAPSULE 1 CAPSULE ORALLY FOR PAIN THREE TIMES DAILY TAKING RIZATRIPTAN BENZOATE 5 MG TABLET 1 TABLET ORALLY X1 NEEDED FOR MIGRAINE HEADACHE MAY REPEAT IN 2 HRS IF NEDED X2 TAKING CHOLESTYRAMINE 4 GM/DOSE POWDER 1 SCOOP ORALLY TWICE A DAY TAKING FLUOCINONIDE 0.05 % SOLUTION 1 APPLICATION EXTERNALLY NIGHTLY TO SCALP X 1 WEEK, THEN ONCE WEEKLY FOR DRY ITCHY SCALP TAKING ELIDEL 1 % CREAM 1 APPLICATION EXTERNALLY APPLY FULL FACE IN THE MORNING TAKING AZELEX 20 % CREAM 1 APPLICATION EXTERNALLY APPLY TO TZONE NIGHTLY TAKING ESTRACE 0.1 MG/GM CREAM 0.5 GM VAGINAL TWICE A WEEK TAKING FLUOCINOLONE ACETONIDE 0.01 % SOLUTION 1 APPLICATION EXTERNALLY TWICE A DAY TAKING ASPIRIN 81 MG TABLET DELAYED RELEASE 1 TABLET ORALLY ONCE A DAY TAKING ATORVASTATIN CALCIUM 20 MG TABLET 1 TABLET ORALLY ONCE A DAY MEDICATION LIST REVIEWED AND RECONCILED WITH THE PATIENT PAST MEDICAL HISTORY ESOPHAGEAL REFLUX ASTHMA MIGRAINE HEADACHE ARTHRITIS ABNORMAL PAP SMEAR/SEVERAL JOEL 3 W/CRYO (DR. 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 FIBROMYALGIA STOMACH ULCER HORMONE REPLACEMENT THERAPY (POSTMENOPAUSAL) POSTMENOPAUSAL ATROPHIC VAGINITIS CERVICAL POST-LAMINECTOMY SYNDROME CDIFF HSTORY OF LOU ENCOUNTER FOR GYNECOLOGICAL EXAMINATION (GENERAL) (ROUTINE) WITH ABNORMAL FINDINGS CHRONIC MIGRAINE W/O AURA W/O STATUS MIGRAINOSUS, NOT INTRACTABLE ALLERGIES SEA CRAB: ANAPHYLAXIS - ALLERGY LATEX: RASH - ALLERGY VANCOMYCIN HCL: HIVES/BREATHING PROBLEMS - ALLERGY DOXYCYCLINE CALCIUM: HIVES/BREATHING PROBLEMS - ALLERGY TOPAMAX: HEADACHE HORSE HAIR SOCIAL HISTORY GENERAL: TOBACCO USE ARE YOU A:FORMER SMOKER HOW LONG HAS IT BEEN SINCE YOU LAST SMOKED?5-10 YEARS LATEX QUESTIONNAIRE LATEX ALLERGY : HAVE YOU EVER DEVELOPED ANY TYPE OF REACTION AFTER HANDLING LATEX PRODUCTS SUCH RUBBER GLOVES, CONDOMS, DIAPHRAGMS, BALLOONS, SOCKS, OR UNDERWEAR?YES KNOWN LATEX ALLERY-RASH AND ITCHING LATEX ALLERGY : HAVE YOU EVER DEVELOPED ANY TYPE OF REACTION DURING OR AFTER DENTAL APPOINTMENT, VAGINAL/RECTAL EXAMINATION, SURGICAL PROCEDURE, OR ANY OTHER EXPOSURE?YES - PLEASE INDICATE :SURGICAL PROCEDURE LATEX RISK : HAVE YOU EVER HAD ANY DIFFICULTY BREATHING OR HIVES AFTER EATING OR HANDLING ANY FRUITS, OR VEGETABLES; SUCH KIWI, BANANAS, STONE FRUITS, OR CHESTNUTSNO LATEX RISK : DO YOU HAVE A PREVIOUS PERSONAL HISTORY OF MORE THAN NINE SURGERIES, SPINA BIFIDA, OR REPEATED CATHERIZATIONS? YES - PLEASE INDICATE : > 9 SURGERIES LATEX RISK : ARE YOU FREQUENTLY EXPOSED TO LATEX PRODUCTS IN YOUR OCCUPATION?NO DATE ASKED : 02/04/2021 ALCOHOL USE: NO. BMI CARE GOAL FOLLOW-UP ABOVE NORMAL BMI FOLLOW-UPGIVING ENCOURAGEMENT TO EXERCISE ALCOHOL SCREENING DID YOU HAVE A DRINK CONTAINING ALCOHOL IN THE PAST YEAR?NO POINTS0 INTERPRETATIONNEGATIVE RECREATIONAL DRUG USE DRUG USE?NO CAFFEINE CAFFEINE USE?NO HIV / HEP-C SCREENING HIV TEST OFFERED TO PATIENT:YES DATE OFFERED:10/25/2017 HEP-C TEST OFFERED TO PATIENT:YES DATE OFFERED:10/25/2017 TEST ACCEPTED:NO BROCHURE PROVIDED TO PATIENTNO LANGUAGE LANGUAGES SPOKEN:NORWEGIAN OTHER-KAZAKH IS HER FIRST LANGUAGE EDUCATION LEVEL OF EDUCATION:HIGH SCHOOL LEARNING BARRIERS / SPECIAL NEEDS CHANGE FROM LAST VISIT?NO BARRIERS TO LEARNING?NO HEARING IMPAIRED?YES :HEARING AIDES VISION IMPAIRED?YES :CORRECTIVE LENSES COGNITIVELY IMPAIRED?NO READINESS TO LEARN?YES LEARNING PREFERENCES?NO LEARNING CAPABILITIES PRESENT?YES EMOTIONAL BARRIERS?NO SPECIAL DEVICES?NO MEDICAL OFFICE CLERK NEEDED?NO DOMESTIC VIOLENCE STATUS:SINGLE DO YOU FEEL SAFE IN YOUR ENVIRONMENT?YES OCCUPATION: NOT WORKING. DIET: REGULAR. EXERCISE: WALKING OCC. MARITAL STATUS: SINGLE, ENGAGED. OTHERS AT HOME: [place]. - PFS REFERRAL NEEDED?NO CLERGY REFERRAL NEEDED?NO PUBLIC HEALTH REFERRAL NEEDED?NO WAS THE PROVIDER NOTIFIED OF ANY PERTINENT INFO?YES HAS THE PATIENT BEEN EDUCATED REGARDING HIS/HER PLAN OF CARE?YES HAS THE PATIENT BEEN EDUCATED REGARDING PAIN, THE RISK FOR PAIN, THE IMPORTANCE OF EFFECTIVE PAIN MANAGEMENT, AND THE PAIN ASSESSMENT PROCESS?YES ADVANCE DIRECTIVE ADVANCE DIRECTIVE DISCUSSED WITH PATIENT:YES PT DPES NOT HAVE ANY ADVANCED DIRECTIVES AND SHE DECLINED HCP INFORMATION AT THIS TIME. USED TO SMOKE FOR OVER 20 YRS ON/OFF WITH 3 CIGS/DAYREVIEWED WITH PATIENT 11/22/18 1447 JS. REVIEW OF SYSTEMS CONSTITUTIONAL: ANY RECENT FEVER NO . CHILLS NO . WEIGHT CHANGE OF UNKNOWN REASONS NO . GASTROENTEROLOGY: NEW UNEXPLAINABLE CHANGES IN BOWEL CONTROL NO . CONSTIPATION NO . GENITOURINARY: ANY NEW CHANGE IN BLADDER CONTROL? NO . NEUROLOGY: NEW ONSET DIZZINESS OR NEUROLOGICAL CHANGES NOT MENTIONED NO . NEW NUMBNESS OR PAIN PATTERNS NOT MENTIONED AND PERTINENT TO TODAY'S VISIT NO . CARDIOLOGY: NEW CHEST PRESSURE NO . PATIENT DENIES NO . RESPIRATORY: UNEXPLAINABLE COUGH NO . NEW SHORTNESS OF BREATH NO . VITAL SIGNS WT 176.2 LBS, HT 60 IN, BMI 34.41 INDEX, BP 111/60 MM HG, HR 68 /MIN, RR 18 /MIN, TEMP 99.1 F, OXYGEN SAT % 95%, SAFE IN ENV? (Y/N) YES, REVIEWED BY: JEREMY CANALES MA. EXAMINATION GENERAL EXAMINATION: GENERALNO ACUTE DISTRESS, WELL NOURISHED AND HYDRATED. PSYCHAPPROPRIATE MOOD AND AFFECT . NECK:POINT TENDER BILATERAL NECK AND RIGHT SHOULDER, BANDS OF RESTRICTIVE TISSUE NOTED OVER TRIGGER POINT.. LUNGS:CLEAR TO AUSCULTATION BILATERALLY, NO WHEEZES, RHONCHI, RALES. HEART:NO MURMURS, REGULAR RATE AND RHYTHM. ASSESSMENTS MYALGIA, OTHER SITE - M79.18 (PRIMARY) TREATMENT MYALGIA, OTHER SITE NOTES: 60-YEAR-OLD FEMALE IN FOR WORKER'S COMP. CHRONIC PAIN FOLLOW-UP. GIVEN PRESENTING SYMPTOMS AND RESULTS OF PHYSICAL EXAMINATION RECOMMEND BILATERAL NECK AND RIGHT SHOULDER TRIGGER POINT INJECTIONS WITH POSTPROCEDURAL FOLLOW-UP. PATIENT HAS EXPRESSED UNDERSTANDING OF AND WAS IN AGREEMENT WITH TREATMENT PLAN. GIVEN TIME TO ASK QUESTIONS AND EXPRESS CONCERNS. ISTOP REGISTRY REVIEWED AND DEMONSTRATES COMPLLIANCE. (REF # [id number] ) BRINGS IN MEDICATIONS WHICH IS APPROPRIATE FOR WHAT WAS DISPENSED. RECENT URINE TOXICOLOGY REVIEWED. NO UNAUTHORIZED MEDICATIONS. NO ILLICIT SUBSTANCES AND PRESCRIBED MEDICATIONS WERE PRESENT. OTHERS CONTINUE TRAMADOL HCL TABLET, 50 MG, 1 TAB, ORALLY, EVERY 6 HOURS NEEDED PAIN MDD=4, 30 DAYS, 90, REFILLS 1 REFILL CYMBALTA CAPSULE DELAYED RELEASE PARTICLES, 30 MG, 1 CAPSULE, ORALLY, ONCE A DAY FOR PAIN, 30 DAYS, 30, REFILLS 1 REFILL CYCLOBENZAPRINE HCL TABLET, 10 MG, 1 TABLET, ORALLY FOR SPSMS AND PAIN, THREE TIMES A DAY NEEDED MDD3, 30 DAY(S), 90 REFILL LYRICA CAPSULE, 150 MG, 1 CAPSULE, ORALLY FOR PAIN, THREE TIMES DAILY, 30 DAYS, 90, REFILLS 1 PROCEDURES PN WORKMANS' COMP OPINION IN YOUR OPINION, WAS THE INCIDENT THAT THE PATIENT DESCRIBED THE COMPETENT MEDICAL CAUSE OF THIS INJURY/ILLNESS? YES ARE THE PATIENT'S COMPLAINTS CONSISTENT WITH HIS/HER HISTORY OF THE INJURY/ILLNESS? YES IS THE PATIENT'S HISTORY OF THE INJURY/ILLNESS CONSISTENT WITH YOUR OBJECTIVE FINDING? YES WHAT IS THE PERCENTAGE OF TEMPORARY IMPAIRMENT? TOTAL = 100% IS THE PATIENT WORKING? NO DOCTOR ON SITE: GILBERTO ESCOBAR MD PROCEDURE CODES FA211 ESTABILISHED PATIENT [facility] CHARGE DISPOSITION & COMMUNICATION FOLLOW UP POSTPROCEDURE (REASON: BILATERAL NECK AND RIGHT SHOULDER TRIGGER POINT INJECTIONS) ELECTRONICALLY SIGNED BY CLARISSA PACKER ON 02/08/2021 AT 11:23 AM EDT DISCLAIMER : THIS IS A VISIT SUMMARY EXTRACTED FROM THE [employer] CHART. IT IS NOT A COPY OF THE [facility] PROGRESS NOTE. MARY
== END ==
LOC: M PAIN 11:00
PROVIDERS: ATTEND Family Medicine
DX: M79.18 Myalgia, other site (principal); K21.9 Gastro-esophageal reflux disease without esophagitis; J45.909 Unspecified asthma, uncomplicated; G43.709 Chronic migraine without aura, not intractable, without status migrainosus; H40.9 Unspecified glaucoma; F32.9 Major depressive disorder, single episode, unspecified; M47.812 Spondylosis without myelopathy or radiculopathy, cervical region; M79.7 Fibromyalgia; N95.2 Postmenopausal atrophic vaginitis; Z79.891 Long term (current) use of opiate analgesic; Z79.82 Long term (current) use of aspirin; Z79.899 Other long term (current) drug therapy; Z87.891 Personal history of nicotine dependence; Z91.030 Bee allergy status; Z91.040 Latex allergy status; Z88.1 Allergy status to other antibiotic agents; Z88.8 Allergy status to other drugs, medicaments and biological substances

== ENCOUNTER → 2021-02-17 | Outpatient (REF) | payer OTHER ==
[2021-02-17 18:09] LABS: APPEARANCE, URINE HAZY (CLEAR); BACTERIA, URINE AUTO NEGATIVE (NEGATIVE); BILIRUBIN, URINE AUTO NEGATIVE (NEGATIVE); BLOOD, URINE BLOOD NEGATIVE (NEGATIVE); COLOR, URINE YELLOW (YELLOW); GLUCOSE, URINE (UA) AUTO NEGATIVE (NEGATIVE); KETONE, URINE AUTO NEGATIVE (NEGATIVE); LEUKOCYTE ESTERASE, URINE AUTO NEGATIVE (NEGATIVE); MUCUS, URINE SMALL (NEGATIVE); NITRITE, URINE AUTO NEGATIVE (NEGATIVE); PROTEIN, URINE AUTO NEGATIVE (NEGATIVE); RBC, URINE AUTO 0 /HPF (0-3); SPECIFIC GRAVITY URINE AUTO 1.016 (1.002-1.035); SQUAMOUS EPITHELIAL CELL UR AU 5 /HPF (0-6); UROBILINOGEN, URINE AUTO 0.2 mg/dL (0.0-2.0); WBC, URINE AUTO 0 /HPF (0-3)
[2021-02-17 18:30] LABS: ALBUMIN 3.4 GM/DL (3.2-5.2); BLOOD UREA NITROGEN 13 MG/DL (7-18); CALCIUM LEVEL 8.3 MG/DL (8.8-10.2); CARBON DIOXIDE LEVEL 29 MEQ/L (21-32); CHLORIDE LEVEL 107 MEQ/L (98-107); CREATININE FOR GFR 0.57 MG/DL (0.55-1.30); GLOMERULAR FILTRATION RATE > 60.0 (>45); GLUCOSE, FASTING 116 MG/DL (70-100); POTASSIUM SERUM 4.1 MEQ/L (3.5-5.1); SODIUM LEVEL 141 MEQ/L (136-145)
[2021-02-17 18:34] LABS: HEMATOCRIT 40.4 % (36.0-47.0); MEAN CORPUSCULAR HEMOGLOBIN 30.4 pg (27.0-33.0); MEAN CORPUSCULAR HGB CONC 32.2 g/dl (32.0-36.5); MEAN CORPUSCULAR VOLUME 94.6 fl (80.0-96.0); PLATELET COUNT, AUTOMATED 229 10^3/uL (150-450); RED BLOOD COUNT 4.27 10^6/uL (4.00-5.40)
[2021-02-17 18:40] LABS: CREATININE, URINE 93.8 MG/DL; MALB URINE SIEMENS < 5.0 MG/L; MAU/CREAT RATIO 5.3 MCG/MG (0.0-30.0)
[2021-02-17 18:41] LABS: VITAMIN B12 LEVEL > 2000 PG/ML (247-911)
[2021-02-21 22:23] LABS: ALT/SGPT 45 U/L (12-78); BILIRUBIN,DIRECT < 0.1 MG/DL (0.0-0.2); BILIRUBIN,TOTAL 0.3 MG/DL (0.2-1.0)
== END ==
LOC: M SFHCPLAZ 14:05
PROVIDERS: ATTEND Family Medicine
DX: R35.0 Frequency of micturition (principal); R53.83 Other fatigue; R60.9 Edema, unspecified

== ENCOUNTER → 2021-02-23 | Outpatient (CLI) | payer OTHER ==
--- NOTE | 2021-02-23 16:48 | REP ---
INDICATION: FREQUENCY OF MICTURITION. COMPARISON: None. TECHNIQUE: Transvesical imaging of the urinary bladder FINDINGS: There is no evidence of abnormal urinary bladder wall thickening. There is no gross mass. The pre void urinary bladder volume calculation is 749 cc. The postvoid urinary bladder volume calculation is 37 cc. This renders a 5% postvoid residual. IMPRESSION: No abnormality is noted. Findings as described above. <Electronically signed by Jere Holden > 02/23/21 [id number]
== END ==
LOC: M RAD 13:47
PROVIDERS: ATTEND Student in an Organized Health Care Education/Training Program
DX: R53.83 Other fatigue (principal); R35.0 Frequency of micturition

== ENCOUNTER → 2021-03-04 | Outpatient (CLI) | payer OTHER ==
[~2021-03-04] MED LIST changes: +OMEP40CA4 PO; -OMEP40CA97 PO
== END ==
LOC: M LABSMTC 13:47
PROVIDERS: ATTEND Anesthesiology
DX: Z01.812 Encounter for preprocedural laboratory examination (principal); Z20.822 Contact with and (suspected) exposure to COVID-19

== ENCOUNTER → 2021-03-08 | Outpatient (CLI) | payer OTHER | LOC: M SLEEP HO 13:20 | PROVIDERS: ATTEND Nurse Practitioner Family | DX: R06.83 Snoring (principal) ==

== ENCOUNTER → 2021-03-09 | Outpatient (CLI) | payer OTHER ==
[~2021-03-09] MED LIST changes: +BUPIVACAINE HCL 0.25% 10ML VIAL As Ordered ONE; +BUPIVACAINE HCL 0.25% 30ML VIAL As Ordered ONE; +TRIAMCINOLONE ACETONIDE SUSP 40 MG/ML VIAL (J3301) As Ordered ONE
--- NOTE | 2021-03-10 01:49 | ECWPNPC ---
PATIENT NAME: DELIA BLOUNT : 1960 GENDER: FEMALE VISIT DATE: 03/09/2021 DISCHARGE DATE: 03/09/21950 VISIT LOCKED DATE TIME: PHYSICIAN: GILBERTO MEDINA MD PHYSICIAN PAGER NO: ACTIVE RESOURCE: GILBERTO MEDINA MD REASON FOR APPOINTMENT 1. TRIGGER POINT INJECTIONS BILATERAL NECK AND RIGHT SHOULDER HISTORY OF PRESENT ILLNESS GENERAL: -. FALL RISK SCREENING: SCREENING : NO FALLS REPORTED IN THE LAST YEAR. PAIN SCREENING: PATIENT HAS A COMPLAINT OF ACUTE OR CHRONIC PAIN :YES LOCATION OF PAIN:NECK, BOTH SHOULDERS R ARM; NECK, SHOULDERS, R ARM ARE CORRECT INTENSITY OF PAIN (SCALE OF 1 TO 10):6 WHAT DOES YOUR PAIN FEEL LIKE:ACHING, BURNING, SHARP, STABBING, THROBBING, SHOOTING DURATION:CONTINOUS, CONSTANT PAIN IS INCREASED BY:ACTIVITIES PAIN IS DECREASED BY:USE OF PAIN MEDICATIONS PAIN CENTER INTAKE QUESTIONS: DO YOU HAVE A HISTORY OF MRSA? :NO DO YOU TAKE A BLOOD THINNERS? :NO DO YOU HAVE ANY BLEEDING DISORDERS? :NO ANY NEW NUMBNESS OR WEAKNESS IN YOUR LEGS OR ARMS? :NO ANY PACEMAKER,DEFIBRILLATOR, OR DORSAL COLUMN STIMULATOR? :NO DO YOU HAVE ANY RASHES OR OPEN SORES? :NO ARE YOU ALLERGIC TO IV DYE? :NO ARE YOU DIABETIC? :NO ANY NEW PROBLEMS WITH YOUR MEDICATIONS? :NO HAVE YOU RECEIVED A VACCINE IN THE PAST 30 DAYS? :NO DO YOU PLAN TO RECEIVE A VACCINE IN THE NEXT 21 DAYS? :NO DO YOU NEED ANY PRESCRIPTION? :NO DO YOU TAKE ANY IMMUNOSUPPRESSIVE MEDICATIONS? :NO ANY HISTORY OF SEIZURES? :NO ANY HISTORY OF CARDIAC ISSUES OR EVENTS? :YES SEEING SNOW FENCE ERECTOR FOR HX OF CHEST PAIN DO YOU HAVE ANY KIDNEY OR LIVER DISEASE? :NO DO YOU HAVE SLEEP APNEA? :NO PT BEING TESTED FOR ANY RECENT HEAD INJURY? :NO DO YOU HAVE ANY NEW INFECTIONS? :NO IS THERE A CHANCE YOU COULD BE ? :NO ARE YOU BREAST FEEDING? :NO WHEN DID YOU LAST EAT? : 03/08/21 WHEN DID YOU LAST DRINK? : 03/08/21 WHAT DID YOU LAST DRINK? : WATER NAME OF PERSON DRIVING YOU HOME? : MAXINE DO YOU HAVE ANY OTHER QUESTIONS OR CONCERNS? : - CURRENT MEDICATIONS TAKING ALBUTEROL SULFATE HFA 108 (90 BASE) MCG/ACT AEROSOL SOLUTION 2 PUFFS NEEDED INHALATION EVERY 4 HRS TAKING OMEGA 3 1000 MG CAPSULE 1 CAPSULE ORALLY ONCE A DAY TAKING LUTEIN VISION BLEND CAPSULE ORALLY DAILY TAKING VITAMIN D3 5000 UNITS CAPSULE 1 CAPSULE ORALLY ONCE A DAY TAKING MEDICAL COMPRESSION STOCKINGS - MISCELLANEOUS DIRECTED TOPICALLY DAILY; ICD10: R60.0 TAKING DICYCLOMINE HCL 20 MG TABLET 1 TABLET ORALLY FOUR TIMES A DAY, NOTES: 03/08/21 TAKING ESTRACE 1 MG TABLET 1 TABLET ORALLY ONCE DAILY TAKING ACYCLOVIR 400 MG TABLET 1 TABLET ORALLY TWICE A DAY NEEDED FOR HERPES OUTBREAK TAKING DIPHENOXYLATE-ATROPINE 2.5-0.025 MG TABLET 1 TABLET NEEDED ORALLY TWO TIMES A DAY TAKING AZELASTINE HCL 0.1 % SOLUTION 1 PUFF IN EACH NOSTRIL NASALLY TWICE A DAY TAKING RIZATRIPTAN BENZOATE 5 MG TABLET 1 TABLET ORALLY X1 NEEDED FOR MIGRAINE HEADACHE MAY REPEAT IN 2 HRS IF NEDED X2 TAKING CHOLESTYRAMINE 4 GM/DOSE POWDER 1 SCOOP ORALLY TWICE A DAY TAKING ESTRACE 0.1 MG/GM CREAM 0.5 GM VAGINAL TWICE A WEEK TAKING ASPIRIN 81 MG TABLET DELAYED RELEASE 1 TABLET ORALLY ONCE A DAY TAKING ATORVASTATIN CALCIUM 20 MG TABLET 1 TABLET ORALLY ONCE A DAY TAKING TRAMADOL HCL 50 MG TABLET 1 TAB ORALLY EVERY 6 HOURS NEEDED PAIN MDD=4, NOTES: 03/08/21 TAKING CYCLOBENZAPRINE HCL 10 MG TABLET 1 TABLET ORALLY FOR SPSMS AND PAIN THREE TIMES A DAY NEEDED MDD3, NOTES: 03/08/21 TAKING LYRICA 150 MG CAPSULE 1 CAPSULE ORALLY FOR PAIN THREE TIMES DAILY, NOTES: 03/08/21 TAKING CYMBALTA 30 MG CAPSULE DELAYED RELEASE PARTICLES 1 CAPSULE ORALLY ONCE A DAY FOR PAIN, NOTES: 03/08/21 TAKING BUPROPION HCL 75 MG TABLET 1 TABLET ORALLY DAILY TAKING PANTOPRAZOLE SODIUM 40 MG TABLET DELAYED RELEASE TAKE ONE TABLET BY MOUTH TWICE A DAY ORALLY BID TAKING LASIX 40 MG TABLET 1 TABLET ORALLY ONCE A DAY NOT-TAKING CEFDINIR 300 MG CAPSULE DIRECTED ORALLY BID NOT-TAKING AZELEX 20 % CREAM 1 APPLICATION EXTERNALLY APPLY TO TZONE NIGHTLY NOT-TAKING ELIDEL 1 % CREAM 1 APPLICATION EXTERNALLY APPLY FULL FACE IN THE MORNING MEDICATION LIST REVIEWED AND RECONCILED WITH THE PATIENT PAST MEDICAL HISTORY ESOPHAGEAL REFLUX ASTHMA MIGRAINE HEADACHE ARTHRITIS ABNORMAL PAP SMEAR/SEVERAL JOEL 3 W/CRYO (DR. 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 FIBROMYALGIA STOMACH ULCER HORMONE REPLACEMENT THERAPY (POSTMENOPAUSAL) POSTMENOPAUSAL ATROPHIC VAGINITIS CERVICAL POST-LAMINECTOMY SYNDROME CDIFF HSTORY OF LOU ENCOUNTER FOR GYNECOLOGICAL EXAMINATION (GENERAL) (ROUTINE) WITH ABNORMAL FINDINGS CHRONIC MIGRAINE W/O AURA W/O STATUS MIGRAINOSUS, NOT INTRACTABLE BILATERAL CARPAL TUNNEL VERY MILD TRICUSPID REGURGITATION AND VERY MILD LEFT VENTRICULAR HYPERTROPHY ALLERGIES SEA CRAB: ANAPHYLAXIS - ALLERGY LATEX: RASH - ALLERGY VANCOMYCIN HCL: HIVES/BREATHING PROBLEMS - ALLERGY DOXYCYCLINE CALCIUM: HIVES/BREATHING PROBLEMS - ALLERGY TOPAMAX: HEADACHE HORSE HAIR SOCIAL HISTORY GENERAL: TOBACCO USE ARE YOU A:FORMER SMOKER HOW LONG HAS IT BEEN SINCE YOU LAST SMOKED?5-10 YEARS LATEX QUESTIONNAIRE LATEX ALLERGY : HAVE YOU EVER DEVELOPED ANY TYPE OF REACTION AFTER HANDLING LATEX PRODUCTS SUCH RUBBER GLOVES, CONDOMS, DIAPHRAGMS, BALLOONS, SOCKS, OR UNDERWEAR?YES KNOWN LATEX ALLERY-RASH AND ITCHING LATEX ALLERGY : HAVE YOU EVER DEVELOPED ANY TYPE OF REACTION DURING OR AFTER DENTAL APPOINTMENT, VAGINAL/RECTAL EXAMINATION, SURGICAL PROCEDURE, OR ANY OTHER EXPOSURE?YES - PLEASE INDICATE :SURGICAL PROCEDURE DATE ASKED : 02/04/2021 LATEX RISK : HAVE YOU EVER HAD ANY DIFFICULTY BREATHING OR HIVES AFTER EATING OR HANDLING ANY FRUITS, OR VEGETABLES; SUCH KIWI, BANANAS, STONE FRUITS, OR CHESTNUTSNO LATEX RISK : DO YOU HAVE A PREVIOUS PERSONAL HISTORY OF MORE THAN NINE SURGERIES, SPINA BIFIDA, OR REPEATED CATHERIZATIONS? YES - PLEASE INDICATE : > 9 SURGERIES LATEX RISK : ARE YOU FREQUENTLY EXPOSED TO LATEX PRODUCTS IN YOUR OCCUPATION?NO ALCOHOL USE: NO. BMI CARE GOAL FOLLOW-UP ABOVE NORMAL BMI FOLLOW-UPGIVING ENCOURAGEMENT TO EXERCISE ALCOHOL SCREENING DID YOU HAVE A DRINK CONTAINING ALCOHOL IN THE PAST YEAR?NO POINTS0 INTERPRETATIONNEGATIVE RECREATIONAL DRUG USE DRUG USE?NO CAFFEINE CAFFEINE USE?NO HIV / HEP-C SCREENING HIV TEST OFFERED TO PATIENT:YES DATE OFFERED:10/25/2017 HEP-C TEST OFFERED TO PATIENT:YES DATE OFFERED:10/25/2017 TEST ACCEPTED:NO BROCHURE PROVIDED TO PATIENTNO LANGUAGE LANGUAGES SPOKEN:UKRAINIAN OTHER-[place]ILI IS HER FIRST LANGUAGE EDUCATION LEVEL OF EDUCATION:HIGH SCHOOL LEARNING BARRIERS / SPECIAL NEEDS CHANGE FROM LAST VISIT?NO BARRIERS TO LEARNING?NO HEARING IMPAIRED?YES VISION IMPAIRED?YES COGNITIVELY IMPAIRED?NO :HEARING AIDES :CORRECTIVE LENSES READINESS TO LEARN?YES LEARNING PREFERENCES?NO LEARNING CAPABILITIES PRESENT?YES EMOTIONAL BARRIERS?NO SPECIAL DEVICES?NO CHARTER SCHOOL EXECUTIVE DIRECTOR NEEDED?NO DOMESTIC VIOLENCE STATUS:SINGLE DO YOU FEEL SAFE IN YOUR ENVIRONMENT?YES OCCUPATION: NOT WORKING. DIET: REGULAR. EXERCISE: WALKING OCC. MARITAL STATUS: SINGLE, ENGAGED. OTHERS AT HOME: [place]. - PFS REFERRAL NEEDED?NO CLERGY REFERRAL NEEDED?NO PUBLIC HEALTH REFERRAL NEEDED?NO WAS THE PROVIDER NOTIFIED OF ANY PERTINENT INFO?YES HAS THE PATIENT BEEN EDUCATED REGARDING HIS/HER PLAN OF CARE?YES HAS THE PATIENT BEEN EDUCATED REGARDING PAIN, THE RISK FOR PAIN, THE IMPORTANCE OF EFFECTIVE PAIN MANAGEMENT, AND THE PAIN ASSESSMENT PROCESS?YES ADVANCE DIRECTIVE ADVANCE DIRECTIVE DISCUSSED WITH PATIENT:YES PT DPES NOT HAVE ANY ADVANCED DIRECTIVES AND SHE DECLINED HCP INFORMATION AT THIS TIME. USED TO SMOKE FOR OVER 20 YRS ON/OFF WITH 3 CIGS/DAYREVIEWED WITH PATIENT 11/22/18 1447 JS. VITAL SIGNS WT 174.4 LBS, HT 60 IN, BMI 34.06 INDEX, BP 121/75 MM HG, HR 72 /MIN, RR 18 /MIN, TEMP 98.5 F, OXYGEN SAT % 95%, SAFE IN ENV? (Y/N) Y, NA INITIALS , REVIEWED BY: KAROLINA CANALES MA. EXAMINATION GENERAL: THE PATIENT IS ALERT, ORIENTED TIMES THREE AND COOPERATIVE. LUNGS ARE CLEAR TO AUSCULTATION. HEART SHOWS REGULAR RHYTHM, NO MURMURS AND NO GALLOPS. ASSESSMENTS MYALGIA, UNSPECIFIED SITE - M79.10 (PRIMARY) TREATMENT MYALGIA, UNSPECIFIED SITE COMPLETION OF PROCEDURAL VISIT WHEN MEETS CRITERIAROSA COUGHLIN 03/09/2021 9:56:30 AM > CRITERIA MET OTHERS NOTES: PAT DONE 03/04/21. EM. PROCEDURES PAIN NURSING RECORD PROCEDURE IN ROOM 0845, PHYSICIAN IN ROOM 0929, START 0931, FINISH 0934, PHYSICIAN OUT OF ROOM 0935, OUT OF ROOM 0950, ECG N/A, PATIENT SHIELDED N/A, SAFETY STRAP N/A, PREP ALCOHOL DR. MEDINA, DRESSING TEGADEEBONY COUGHLIN RN LOC: 1. ALERT, ORIENTEDCED ELIZABETH 03/09/2021 9:33:12 AM > RESP: 1. REGULAR, NO DYSPNEACED ELIZABETH 03/09/2021 9:33:16 AM > COLOR: 1. PINKCED ELIZABETH 03/09/2021 9:33:20 AM > SKIN: 1. WARM, DRY, CHASIDY COUGHLINBETH 03/09/2021 9:33:23 AM > POSITION: 5. SITTING, DEEP COUGHLINZABETH 03/09/2021 9:25:59 AM > VITALS: 113/67, 69, 16, 95%, DEEP COUGHLINZABETH 03/09/2021 9:45:27 AM > NOTES Benton COUGHLIN RN, CEDROSA 03/09/2021 9:26:06 AM > COMPLETION OF PROCEDURE APPOINTMENT: POST PAIN 5, DRESSING SITE DRY AND INTACT, IV N/A, GAIT STEADY, TEACHING COMPLETED, PATIENT ACKNOWLEDGES UNDERSTANDING YES, PROCEDURE APPOINTMENT COMPLETED AT 0950 PN WORKMANS' COMP OPINION IN YOUR OPINION, WAS THE INCIDENT THAT THE PATIENT DESCRIBED THE COMPETENT MEDICAL CAUSE OF THIS INJURY/ILLNESS? YES ARE THE PATIENT'S COMPLAINTS CONSISTENT WITH HIS/HER HISTORY OF THE INJURY/ILLNESS? YES IS THE PATIENT'S HISTORY OF THE INJURY/ILLNESS CONSISTENT WITH YOUR OBJECTIVE FINDING? YES WHAT IS THE PERCENTAGE OF TEMPORARY IMPAIRMENT? TOTAL = 100% IS THE PATIENT WORKING? NO DOCTOR ON SITE: GILBERTO ESCOBAR MD PN TRIGGER POINT INJECTION WITH STEROIDS PRE PROCEDURE DIAGNOSIS 1. MYALGIA 2. PAIN AT BILATERAL NECK AREA AND RIGHT SHOULDER AREA POST PROCEDURE DIAGNOSIS 1. MYALGIA 2. PAIN AT BILATERAL NECK AREA AND RIGHT SHOULDER AREA PROCEDURE TRIGGER POINT INJECTION AT BILATERAL NECK AREA AND RIGHT SHOULDER AREA SURGEON DR. GILBERTO MEDINA SAND CARRIER NONE ANESTHESIA LOCAL PRE PROCEDURE NOTE THE PATIENT HAS A HISTORY OF CHRONIC PAIN AT THE RIGHT AND LEFT NECK AREA AND RIGHT SHOULDER AREA. I EVALUATED THE PATIENT AND REVIEWED THE CHART. THERE IS EVIDENCE OF BANDS OF TISSUE WITH RESTRICTION OF MOVEMENT AND PRESENCE OF TRIGGER POINT AT THE RIGHT AND LEFT NECK AREA AND RIGHT SHOULDER AREA. I WENT OVER THE RISKS, ALTERNATIVES, AND BENEFITS ASSOCIATED WITH THIS PROCEDURE. THE PATIENT WOULD LIKE TO PROCEED AND GIVE CONSENT TO PERFORMED THE PROCEDURE. THE PATIENT DENIES UNEXPLAINABLE WEIGHT LOSS, FEVER, CHILLS, OR NEW CHANGES IN URINARY OR BOWEL CONTROL. THE PATIENT IS COVID-19 NEGATIVE DESCRIPTION OF PROCEDURE THE PATIENT WAS BROUGHT TO THE PROCEDURE ROOM AND PLACED IN THE SITTING POSITION. THE AREA WAS CLEANED WITH ALCOHOL. THE PROCEDURE WAS DONE USING ASEPTIC STERILE TECHNIQUE. A TIMEOUT WAS PERFORMED WHERE THE CONSENTED SITE WAS VERIFIED WITH EVERYONE IN THE ROOM. USING A 25-GAUGE NEEDLE, TRIGGER POINTS WERE INJECTED AT THE RIGHT AND LEFT NECK AREA AND RIGHT SHOULDER AREA WITH A TOTAL OF 40 ML OF BUPIVACAINE 0.25% AND KENALOG 40 MG. THE MEDICATIONS WERE VERIFIED WITH THE NURSE. THERE WAS NO EVIDENCE OF BLOOD OR PARESTHESIA DURING THE PROCEDURE. THE PATIENT WAS SENT TO THE RECOVERY ROOM. THE PATIENT WAS MOVING THE EXTREMITIES AND DOING WELL. THERE WERE NO COMPLICATIONS DURING THE PROCEDURE. ESTIMATED BLOOD LOSS WAS LESS THAN 5 ML POST PROCEDURE NOTE THE PROCEDURE DONE WAS DISCUSSED WITH THE PATIENT. THE PATIENT WILL BE SEEN IN A FOLLOW UP IN THE NEXT FEW WEEKS. I AM LOOKING FOR LONG LASTING PAIN RELIEF FOR THE PATIENT WITH THIS INTERVENTION. INSTRUCTIONS WERE GIVEN, QUESTIONS WERE ANSWERED, AND THE PATIENT EXPRESSED UNDERSTANDING AND AGREES WITH THE PLAN. I, TREASURE MOTA, DOCUMENTED THE ABOVE INFORMATION ACTING A SCRIBE FOR DR. MEDINA. I HAVE REVIEWED THE ABOVE DOCUMENT, WRITTEN BY TREASURE MOTA, ARTIFICIAL PEARL MAKER, AND I VERIFY THAT IT IS ACCURATE PROCEDURE CODES 39449 INJECT TRIGGER POINTS 3/> DISPOSITION & COMMUNICATION FOLLOW UP FOLLOW UP IN 2 WEEKS (REASON: POST TRIGGER POINT INEJCTIONS BIALTERAL NECK AND RIGHT SHOULDER ) ELECTRONICALLY SIGNED BY GILBERTO MEDINA MD, MD ON 03/09/2021 AT 02:24 PM EDT DISCLAIMER : THIS IS A VISIT SUMMARY EXTRACTED FROM THE [employer] CHART. IT IS NOT A COPY OF THE [employer] PROGRESS NOTE. MARY
== END ==
LOC: M PAIN 08:30
PROVIDERS: ATTEND Anesthesiology
DX: M79.18 Myalgia, other site (principal); K21.9 Gastro-esophageal reflux disease without esophagitis; J45.909 Unspecified asthma, uncomplicated; G43.709 Chronic migraine without aura, not intractable, without status migrainosus; H40.9 Unspecified glaucoma; M47.812 Spondylosis without myelopathy or radiculopathy, cervical region; F32.9 Major depressive disorder, single episode, unspecified; M79.7 Fibromyalgia; N95.2 Postmenopausal atrophic vaginitis; Z87.891 Personal history of nicotine dependence; Z79.82 Long term (current) use of aspirin; Z79.891 Long term (current) use of opiate analgesic; Z79.899 Other long term (current) drug therapy; Z91.040 Latex allergy status; Z91.013 Allergy to seafood; Z88.1 Allergy status to other antibiotic agents; Z88.8 Allergy status to other drugs, medicaments and biological substances
CPT/HCPCS: 20553; J3301

== ENCOUNTER → 2021-03-23 | Outpatient (CLI) | payer OTHER ==
[~2021-03-23] MED LIST changes: -BUPIVACAINE HCL 0.25% 10ML VIAL As Ordered ONE; -BUPIVACAINE HCL 0.25% 30ML VIAL As Ordered ONE; -RIZA5TAB PO; +RIZA5TAB2 PO; -TRIAMCINOLONE ACETONIDE SUSP 40 MG/ML VIAL (J3301) As Ordered ONE
--- NOTE | 2021-03-25 04:52 | ECWPNPC ---
PATIENT NAME: DELIA BLOUNT : 1960 GENDER: FEMALE VISIT DATE: 03/23/2021 DISCHARGE DATE: 03/23/21 1101 VISIT LOCKED DATE TIME: PHYSICIAN: BENIGNO HUGHES PHYSICIAN PAGER NO: ACTIVE RESOURCE: BENIGNO HUGHES REASON FOR APPOINTMENT 1. POST BILATERAL NECK AND RIGHT SHOULDER TRIGGER POINT INJECTIONS HISTORY OF PRESENT ILLNESS GENERAL: HPI 60-YEAR-OLD FEMALE IN FOR POST BILATERAL NECK AND RIGHT SHOULDER TRIGGER POINT INJECTION FOLLOW-UP. PATIENT FEELS THE PROCEDURE WAS HELPFUL FOR APPROXIMATELY 1 WEEK RATING HER PAIN PREPROCEDURE AT A 6 OUT OF 10 AND POST PROCEDURE AT A 2 OUT OF 10. SHE RATES HER PAIN CURRENTLY AT A 6 OUT OF 10 AND DESCRIBES IT ACHING, BURNING, AND CONTINUOUS. DOI 01/08/1995. -. FALL RISK SCREENING: SCREENING : NO FALLS REPORTED IN THE LAST YEAR. PAIN SCREENING: PATIENT HAS A COMPLAINT OF ACUTE OR CHRONIC PAIN :YES LOCATION OF PAIN:NECK, RIGHT SHOULDER INTENSITY OF PAIN (SCALE OF 1 TO 10):6 WHAT DOES YOUR PAIN FEEL LIKE:ACHING, BURNING, CONTINOUS, SHARP, STABBING, TENDER, THROBBING, SORE, SHOOTING DURATION:CONTINOUS, CONSTANT, AWAKENS FROM SLEEP PAIN IS INCREASED BY:ACTIVITIES, PROLONGED STANDING PAIN IS DECREASED BY:USE OF PAIN MEDICATIONS, SITTING NURSING NOTE: -. CURRENT MEDICATIONS TAKING ALBUTEROL SULFATE HFA 108 (90 BASE) MCG/ACT AEROSOL SOLUTION 2 PUFFS NEEDED INHALATION EVERY 4 HRS TAKING OMEGA 3 1000 MG CAPSULE 1 CAPSULE ORALLY ONCE A DAY TAKING LUTEIN VISION BLEND CAPSULE ORALLY DAILY TAKING VITAMIN D3 5000 UNITS CAPSULE 1 CAPSULE ORALLY ONCE A DAY TAKING MEDICAL COMPRESSION STOCKINGS - MISCELLANEOUS DIRECTED TOPICALLY DAILY; ICD10: R60.0 TAKING DICYCLOMINE HCL 20 MG TABLET 1 TABLET ORALLY FOUR TIMES A DAY, NOTES: 03/08/21 TAKING ESTRACE 1 MG TABLET 1 TABLET ORALLY ONCE DAILY TAKING ACYCLOVIR 400 MG TABLET 1 TABLET ORALLY TWICE A DAY NEEDED FOR HERPES OUTBREAK TAKING DIPHENOXYLATE-ATROPINE 2.5-0.025 MG TABLET 1 TABLET NEEDED ORALLY TWO TIMES A DAY TAKING AZELASTINE HCL 0.1 % SOLUTION 1 PUFF IN EACH NOSTRIL NASALLY TWICE A DAY TAKING RIZATRIPTAN BENZOATE 5 MG TABLET 1 TABLET ORALLY X1 NEEDED FOR MIGRAINE HEADACHE MAY REPEAT IN 2 HRS IF NEDED X2 TAKING CHOLESTYRAMINE 4 GM/DOSE POWDER 1 SCOOP ORALLY TWICE A DAY TAKING ESTRACE 0.1 MG/GM CREAM 0.5 GM VAGINAL TWICE A WEEK TAKING ASPIRIN 81 MG TABLET DELAYED RELEASE 1 TABLET ORALLY ONCE A DAY TAKING ATORVASTATIN CALCIUM 20 MG TABLET 1 TABLET ORALLY ONCE A DAY TAKING BUPROPION HCL 75 MG TABLET 1 TABLET ORALLY DAILY TAKING PANTOPRAZOLE SODIUM 40 MG TABLET DELAYED RELEASE TAKE ONE TABLET BY MOUTH TWICE A DAY ORALLY BID TAKING LASIX 40 MG TABLET 1 TABLET ORALLY ONCE A DAY TAKING WRIST SPLINT/COCK-UP/LEFT SM - MISCELLANEOUS DIRECTED TOPICALLY NIGHTLY TAKING WRIST SPLINT/COCK-UP/RIGHT SM - MISCELLANEOUS DIRECTED TOPICALLY NIGHTLY TAKING PSEUDOEPHEDRINE HCL 30 MG TABLET 1 TABLET 30 MINUTES PRIOR TO HBO TREATMENT FOR NASAL CONGESTION ORALLY THREE TIMES A DAY TAKING TRIAMCINOLONE ACETONIDE 55 MCG/ACT AEROSOL 1 SPRAY IN EACH NOSTRIL NASALLY ONCE A DAY TAKING AUGMENTIN 500-125 MG TABLET 1 TABLET ORALLY EVERY 8 HRS TAKING CYCLOBENZAPRINE HCL 10 MG TABLET 1 TABLET ORALLY FOR SPSMS AND PAIN THREE TIMES A DAY NEEDED MDD3, NOTES: 03/08/21 TAKING TRAMADOL HCL 50 MG TABLET 1 TAB ORALLY EVERY 6 HOURS NEEDED PAIN MDD=4, NOTES: 03/08/21 TAKING LYRICA 150 MG CAPSULE 1 CAPSULE ORALLY FOR PAIN THREE TIMES DAILY, NOTES: 03/08/21 TAKING CYMBALTA 30 MG CAPSULE DELAYED RELEASE PARTICLES 1 CAPSULE ORALLY ONCE A DAY FOR PAIN, NOTES: 03/08/21 TAKING DIFLUCAN 150 MG TABLET 1 TABLET ORALLY NOT-TAKING CEFDINIR 300 MG CAPSULE DIRECTED ORALLY BID NOT-TAKING AZELEX 20 % CREAM 1 APPLICATION EXTERNALLY APPLY TO TZONE NIGHTLY NOT-TAKING ELIDEL 1 % CREAM 1 APPLICATION EXTERNALLY APPLY FULL FACE IN THE MORNING MEDICATION LIST REVIEWED AND RECONCILED WITH THE PATIENT PAST MEDICAL HISTORY ESOPHAGEAL REFLUX ASTHMA MIGRAINE HEADACHE ARTHRITIS ABNORMAL PAP SMEAR/SEVERAL JOEL 3 W/CRYO (DR. 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 FIBROMYALGIA STOMACH ULCER HORMONE REPLACEMENT THERAPY (POSTMENOPAUSAL) POSTMENOPAUSAL ATROPHIC VAGINITIS CERVICAL POST-LAMINECTOMY SYNDROME CDIFF HSTORY OF LOU ENCOUNTER FOR GYNECOLOGICAL EXAMINATION (GENERAL) (ROUTINE) WITH ABNORMAL FINDINGS CHRONIC MIGRAINE W/O AURA W/O STATUS MIGRAINOSUS, NOT INTRACTABLE BILATERAL CARPAL TUNNEL VERY MILD TRICUSPID REGURGITATION AND VERY MILD LEFT VENTRICULAR HYPERTROPHY BILATERAL CARPAL TUNNEL ALLERGIES SEA CRAB: ANAPHYLAXIS - ALLERGY LATEX: RASH - ALLERGY VANCOMYCIN HCL: HIVES/BREATHING PROBLEMS - ALLERGY DOXYCYCLINE CALCIUM: HIVES/BREATHING PROBLEMS - ALLERGY TOPAMAX: HEADACHE HORSE HAIR SOCIAL HISTORY GENERAL: TOBACCO USE ARE YOU A:FORMER SMOKER HOW LONG HAS IT BEEN SINCE YOU LAST SMOKED?5-10 YEARS LATEX QUESTIONNAIRE LATEX ALLERGY : HAVE YOU EVER DEVELOPED ANY TYPE OF REACTION AFTER HANDLING LATEX PRODUCTS SUCH RUBBER GLOVES, CONDOMS, DIAPHRAGMS, BALLOONS, SOCKS, OR UNDERWEAR?YES KNOWN LATEX ALLERY-RASH AND ITCHING LATEX ALLERGY : HAVE YOU EVER DEVELOPED ANY TYPE OF REACTION DURING OR AFTER DENTAL APPOINTMENT, VAGINAL/RECTAL EXAMINATION, SURGICAL PROCEDURE, OR ANY OTHER EXPOSURE?YES - PLEASE INDICATE :SURGICAL PROCEDURE LATEX RISK : HAVE YOU EVER HAD ANY DIFFICULTY BREATHING OR HIVES AFTER EATING OR HANDLING ANY FRUITS, OR VEGETABLES; SUCH KIWI, BANANAS, STONE FRUITS, OR CHESTNUTSNO LATEX RISK : DO YOU HAVE A PREVIOUS PERSONAL HISTORY OF MORE THAN NINE SURGERIES, SPINA BIFIDA, OR REPEATED CATHERIZATIONS? YES - PLEASE INDICATE : > 9 SURGERIES LATEX RISK : ARE YOU FREQUENTLY EXPOSED TO LATEX PRODUCTS IN YOUR OCCUPATION?NO DATE ASKED : 03/23/2021 ALCOHOL USE: NO. BMI CARE GOAL FOLLOW-UP ABOVE NORMAL BMI FOLLOW-UPGIVING ENCOURAGEMENT TO EXERCISE ALCOHOL SCREENING DID YOU HAVE A DRINK CONTAINING ALCOHOL IN THE PAST YEAR?NO POINTS0 INTERPRETATIONNEGATIVE RECREATIONAL DRUG USE DRUG USE?NO CAFFEINE CAFFEINE USE?NO HIV / HEP-C SCREENING HIV TEST OFFERED TO PATIENT:YES DATE OFFERED:10/25/2017 HEP-C TEST OFFERED TO PATIENT:YES DATE OFFERED:10/25/2017 TEST ACCEPTED:NO BROCHURE PROVIDED TO PATIENTNO LANGUAGE LANGUAGES SPOKEN:MONGOLIAN OTHER-MOHAWK IS HER FIRST LANGUAGE EDUCATION LEVEL OF EDUCATION:HIGH SCHOOL LEARNING BARRIERS / SPECIAL NEEDS CHANGE FROM LAST VISIT?NO BARRIERS TO LEARNING?NO HEARING IMPAIRED?YES :HEARING AIDES VISION IMPAIRED?YES :CORRECTIVE LENSES COGNITIVELY IMPAIRED?NO READINESS TO LEARN?YES LEARNING PREFERENCES?NO LEARNING CAPABILITIES PRESENT?YES EMOTIONAL BARRIERS?NO SPECIAL DEVICES?NO STORE HAND NEEDED?NO DOMESTIC VIOLENCE STATUS:SINGLE DO YOU FEEL SAFE IN YOUR ENVIRONMENT?YES OCCUPATION: NOT WORKING. DIET: REGULAR. EXERCISE: WALKING OCC. MARITAL STATUS: SINGLE, ENGAGED. OTHERS AT HOME: [place]. - PFS REFERRAL NEEDED?NO CLERGY REFERRAL NEEDED?NO PUBLIC HEALTH REFERRAL NEEDED?NO WAS THE PROVIDER NOTIFIED OF ANY PERTINENT INFO?YES HAS THE PATIENT BEEN EDUCATED REGARDING HIS/HER PLAN OF CARE?YES HAS THE PATIENT BEEN EDUCATED REGARDING PAIN, THE RISK FOR PAIN, THE IMPORTANCE OF EFFECTIVE PAIN MANAGEMENT, AND THE PAIN ASSESSMENT PROCESS?YES ADVANCE DIRECTIVE ADVANCE DIRECTIVE DISCUSSED WITH PATIENT:YES PT DPES NOT HAVE ANY ADVANCED DIRECTIVES AND SHE DECLINED HCP INFORMATION AT THIS TIME. USED TO SMOKE FOR OVER 20 YRS ON/OFF WITH 3 CIGS/DAYREVIEWED WITH PATIENT 11/22/18 1447 JS. REVIEW OF SYSTEMS CONSTITUTIONAL: ANY RECENT FEVER NO . CHILLS NO . WEIGHT CHANGE OF UNKNOWN REASONS NO . GASTROENTEROLOGY: NEW UNEXPLAINABLE CHANGES IN BOWEL CONTROL NO . CONSTIPATION NO . GENITOURINARY: ANY NEW CHANGE IN BLADDER CONTROL? NO . NEUROLOGY: NEW ONSET DIZZINESS OR NEUROLOGICAL CHANGES NOT MENTIONED NO . NEW NUMBNESS OR PAIN PATTERNS NOT MENTIONED AND PERTINENT TO TODAY'S VISIT NO . CARDIOLOGY: NEW CHEST PRESSURE NO . PATIENT DENIES NO . RESPIRATORY: UNEXPLAINABLE COUGH NO . NEW SHORTNESS OF BREATH NO . VITAL SIGNS WT 173.8 LBS, HT 60 IN, BMI 33.94 INDEX, BP 117/60 MM HG, HR 70 /MIN, RR 18 /MIN, TEMP 98.3 F, OXYGEN SAT % 96%, SAFE IN ENV? (Y/N) YES, REVIEWED BY: JEREMY CANALES MA. EXAMINATION GENERAL EXAMINATION: GENERALNO ACUTE DISTRESS, WELL NOURISHED AND HYDRATED. PSYCHAPPROPRIATE MOOD AND AFFECT . LUNGS:CLEAR TO AUSCULTATION BILATERALLY, NO WHEEZES, RHONCHI, RALES. HEART:NO MURMURS, REGULAR RATE AND RHYTHM. ASSESSMENTS OTHER CHRONIC PAIN - G89.29 (PRIMARY) MYALGIA, OTHER SITE - M79.18, RISK: (NULL) TREATMENT OTHER CHRONIC PAIN PAIN PROCEDURE LOGDATE OF [id number]/30/2021PROCEDURE:TRIGGER POINT INJECTIONS BILATERAL NECK AND RIGHT SHOULDERAMOUNT OF PRE SEDATE0/0RESULT:PREPROCEDURE 6 OUT OF 10 POST PROCEDURE 2 OUT OF 10 X 1 WEEK. MYALGIA, OTHER SITE NOTES: 60-YEAR-OLD FEMALE IN FOR CHRONIC PAIN FOLLOW-UP. GIVEN PRESENTING SYMPTOMS RECOMMEND CONTINUATION OF CURRENT MEDICATION REGIMEN WITH FOLLOW-UP IN 3 MONTHS. PATIENT HAS EXPRESSED UNDERSTANDING OF AND WAS IN AGREEMENT WITH TREATMENT PLAN. GIVEN TIME TO ASK QUESTIONS AND EXPRESS CONCERNS. ISTOP REGISTRY REVIEWED AND DEMONSTRATES COMPLLIANCE. (REF # [id number] ) BRINGS IN MEDICATIONS WHICH IS APPROPRIATE FOR WHAT WAS DISPENSED. RECENT URINE TOXICOLOGY REVIEWED. NO UNAUTHORIZED MEDICATIONS. NO ILLICIT SUBSTANCES AND PRESCRIBED MEDICATIONS WERE PRESENT. PROCEDURES PN WORKMANS' COMP OPINION IN YOUR OPINION, WAS THE INCIDENT THAT THE PATIENT DESCRIBED THE COMPETENT MEDICAL CAUSE OF THIS INJURY/ILLNESS? YES ARE THE PATIENT'S COMPLAINTS CONSISTENT WITH HIS/HER HISTORY OF THE INJURY/ILLNESS? YES IS THE PATIENT'S HISTORY OF THE INJURY/ILLNESS CONSISTENT WITH YOUR OBJECTIVE FINDING? YES WHAT IS THE PERCENTAGE OF TEMPORARY IMPAIRMENT? TOTAL = 100% IS THE PATIENT WORKING? NO DOCTOR ON SITE: GILBERTO ESCOBAR MD PROCEDURE CODES FA211 ESTABILISHED PATIENT [facility] FACILITY CHARGE DISPOSITION & COMMUNICATION FOLLOW UP 3 MONTHS (REASON: MYALGIA ) ELECTRONICALLY SIGNED BY CLARISSA PACKER ON 03/24/2021 AT 09:25 AM EDT DISCLAIMER : THIS IS A VISIT SUMMARY EXTRACTED FROM THE [employer] CHART. IT IS NOT A COPY OF THE [employer] PROGRESS NOTE. BERRYD
== END ==
LOC: M PAIN 10:30
PROVIDERS: ATTEND Family Medicine
DX: M79.18 Myalgia, other site (principal); K21.9 Gastro-esophageal reflux disease without esophagitis; J45.909 Unspecified asthma, uncomplicated; G43.909 Migraine, unspecified, not intractable, without status migrainosus; Z86.59 Personal history of other mental and behavioral disorders; Z87.891 Personal history of nicotine dependence; Z88.1 Allergy status to other antibiotic agents; Z88.8 Allergy status to other drugs, medicaments and biological substances; Z91.013 Allergy to seafood; Z91.040 Latex allergy status; Z79.82 Long term (current) use of aspirin; Z79.899 Other long term (current) drug therapy

== ENCOUNTER → 2021-05-26 | Outpatient (CLI) | payer OTHER | LOC: M PAIN 11:00 | PROVIDERS: ATTEND Anesthesiology | DX: M47.813 Spondylosis without myelopathy or radiculopathy, cervicothoracic region (principal); M50.10 Cervical disc disorder with radiculopathy, unspecified cervical region; K21.9 Gastro-esophageal reflux disease without esophagitis; J45.909 Unspecified asthma, uncomplicated; G43.909 Migraine, unspecified, not intractable, without status migrainosus; H40.9 Unspecified glaucoma; F32.9 Major depressive disorder, single episode, unspecified; N95.2 Postmenopausal atrophic vaginitis; Z87.891 Personal history of nicotine dependence; Z79.899 Other long term (current) drug therapy; Z88.1 Allergy status to other antibiotic agents; Z88.8 Allergy status to other drugs, medicaments and biological substances; Z91.013 Allergy to seafood; Z79.891 Long term (current) use of opiate analgesic; Z91.040 Latex allergy status ==

== ENCOUNTER 2021-05-28 14:43 | Emergency (ER) | payer OTHER ==
[~2021-05-28] VITALS: Ht 154.9 cm; Wt 78.2 kg
--- NOTE | 2021-05-28 15:10 | REP ---
INDICATION: CHEST PAIN. COMPARISON: 01/20/2021 TECHNIQUE: Portable FINDINGS: The technique utilized in obtaining the radiograph has magnified the cardiac silhouette and accentuated the interstitial markings. The superior mediastinal structures are midline. The cardiac silhouette is unremarkable in size, shape, and position. The diaphragmatic surfaces of the lungs are regular, and the costophrenic angles are clear. The pulmonary hernandez are clear. The imaged osseous structures are intact. IMPRESSION: There is no acute cardiopulmonary disease. <Electronically signed by Jere Holden > 05/28/21 0282
[2021-05-28 15:14] LABS: BASO % 0.3 % (0.0-1.0); EOS # 0.1 10^3/uL (0.0-0.5); EOS % 0.9 % (0.0-3.0); HEMATOCRIT 41.2 % (36.0-47.0); HEMOGLOBIN 13.1 g/dl (12.0-15.5); LYMPH # 2.2 10^3/uL (1.5-5.0); LYMPH % 38.6 % (24.0-44.0); MEAN CORPUSCULAR HEMOGLOBIN 29.5 pg (27.0-33.0); MEAN CORPUSCULAR HGB CONC 31.8 g/dl (32.0-36.5); MEAN CORPUSCULAR VOLUME 92.8 fl (80.0-96.0); MONO # 0.4 10^3/uL (0.0-0.8); MONO % 7.1 % (2.0-8.0); NEUTROPHILS # 3.1 10^3/uL (1.5-8.5); NEUTROPHILS % 52.9 % (36.0-66.0); PLATELET COUNT, AUTOMATED 217 10^3/uL (150-450); RED BLOOD COUNT 4.44 10^6/uL (4.00-5.40); WHITE BLOOD COUNT 5.8 10^3/uL (4.0-10.0)
[2021-05-28] MEDS ORDERED: NITROGLYCERIN 0.4 MG SUBL TABLET SL STA (15:44)
[2021-05-28] MEDS ORDERED: ASPIRIN 81 MG CHEW TABLET PO ONE (15:45)
[2021-05-28 16:16] LABS: ALBUMIN 3.2 GM/DL (3.2-5.2); ALT/SGPT 45 U/L (12-78); BILIRUBIN,DIRECT < 0.1 MG/DL (0.0-0.2); BILIRUBIN,TOTAL 0.5 MG/DL (0.2-1.0); BLOOD UREA NITROGEN 12 MG/DL (7-18); CALCIUM LEVEL 8.6 MG/DL (8.8-10.2); CARBON DIOXIDE LEVEL 29 MEQ/L (21-32); CHLORIDE LEVEL 104 MEQ/L (98-107); CREATININE FOR GFR 0.59 MG/DL (0.55-1.30); GLOMERULAR FILTRATION RATE > 60.0 (>45); GLUCOSE, FASTING 121 MG/DL (70-100); LIPASE 110 U/L (73-393); NT-PRO BNP 51 PG/ML (<125); POTASSIUM SERUM 4.9 MEQ/L (3.5-5.1); SODIUM LEVEL 140 MEQ/L (136-145); TOTAL PROTEIN 6.2 GM/DL (6.4-8.2)
[2021-05-28] MEDS ORDERED: GI COCKTAIL 50ML BTL(HYOSCYAMINE/MAALOX/LIDOCAINE VISCOUS)(1:3:1) PO ONE (16:20)
[2021-05-28] MEDS ORDERED: ISOVUE-370 76% 100ML VIAL As Ordered ONE (17:01)
--- NOTE | 2021-05-28 17:25 | ECGEPIP ---
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
--- NOTE | 2021-05-28 18:04 | REPVR ---
PROCEDURE INFORMATION: Exam: CTA Chest With Contrast Exam date and time: 05/28/2021 5:01 PM Age: 60 years old Clinical indication: Chest wall pain; Additional info: Chest pain/sob; R/O pe TECHNIQUE: Imaging protocol: Computed tomographic angiography of the chest with contrast. 3D rendering (Not supervised by radiologist): MIP and/or 3D reconstructed images were created by the technologist. Radiation optimization: All CT scans at this facility use at least one of these dose optimization techniques: automated exposure control; mA and/or kV adjustment per patient size (includes targeted exams where dose is matched to clinical indication); or iterative reconstruction. Contrast material: ISOVUE 370; Contrast volume: 75 ml; Contrast route: INTRAVENOUS (IV); COMPARISON: CT Chest with contrast 01/13/2015 11:13 AM FINDINGS: Pulmonary arteries: No focal pulmonary artery filling defect to suggest acute pulmonary embolus. Aorta: No thoracic aortic aneurysm or dissection. Lungs: Pulmonary vascular/interstitial pattern does not suggest active pulmonary edema. No suspicious lung mass or air space process. No central endobronchial lesion. Pleural spaces: No pleural effusion or pneumothorax. Heart: No overt cardiac enlargement or abnormal volume of pericardial fluid. Lymph nodes: No enlarged mediastinal lymph nodes. Liver: Liver is decreased in density, consistent with fatty infiltration. Gallbladder and bile ducts: Gallbladder is surgically absent. Adrenal glands: Adrenal glands are normal in appearance. Bones/joints: Bony structures show no acute fracture or destructive process. Soft tissues: No concerning focal abnormality of the extra-thoracic soft tissues. IMPRESSION: 1. No evidence of acute pulmonary embolus. 2. No other acute or concerning focal intrathoracic abnormality. 3. Hepatic steatosis Electronically signed by: Peter Tyler On 05/28/2021 18:04:21 PM
[2021-05-28] MEDS ORDERED: KETOROLAC 30 MG/ML 1ML VIAL IV ONE (18:35)
[2021-05-28 19:35] VITALS: BP 116/75
--- NOTE | 2021-05-29 17:12 | ECGEPIP ---
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
== END 2021-05-28 19:39 | disposition home or self-care (01) ==
LOC: M ED 14:43
DX: R07.89 Other chest pain (principal); R94.31 Abnormal electrocardiogram [ECG] [EKG]; K76.0 Fatty (change of) liver, not elsewhere classified; K21.9 Gastro-esophageal reflux disease without esophagitis; J45.909 Unspecified asthma, uncomplicated; Z88.1 Allergy status to other antibiotic agents; Z88.8 Allergy status to other drugs, medicaments and biological substances; Z79.899 Other long term (current) drug therapy
CPT/HCPCS: 36415; 71045; 71275; 80048; 80076; 83690; 83880; 84443; 85025; 93005; 93041; 94760; 96374; 99285; J1885; Q9967

== ENCOUNTER → 2021-06-01 | Outpatient (CLI) | payer OTHER ==
--- NOTE | 2021-06-06 18:09 | SLEEPHOME ---
DATE: 06/01/2021 ORDERED BY: CLARISSA Wagner Diagnostic home sleep testing was performed due to concern for the obstructive sleep apnea syndrome in this patient with a history of nonrestorative sleep and a prior history of sleep apnea syndrome. For testing, a nocturnal T3 respiratory monitoring device was used. Continuous record was made of pulse, oxygen saturation, air flow, chest and abdominal strain, and body position. Nine hours of data were reviewed. During this interval, 103 respiratory events were identified of 10 seconds in duration or greater for an apnea-hypopnea index of 11.6. The events were primarily obstructive. Baseline saturation was 93. Saturations fell to 82%. Baseline pulse rate 61. Pulse rate ranged 54 to 102. Testing was performed in both the supine and nonsupine positions. IMPRESSION: Abnormal home sleep testing with repetitive respiratory events and oxygen desaturations to 82% with a respiratory event index of 11.6 is consistent with the obstructive sleep apnea syndrome. RECOMMENDATION: The patient should be encouraged to undergo a formal sleep evaluation. cc: Rosalba Kelly MD
== END ==
LOC: M SLEEP HO 12:08
PROVIDERS: ATTEND Nurse Practitioner Family
DX: R06.83 Snoring (principal)

== ENCOUNTER → 2021-06-24 | Outpatient (CLI) | payer OTHER ==
--- NOTE | 2021-06-24 15:48 | REPMRS ---
Patient History The patient states she had a clinical breast exam in June 2021. Patient is postmenopausal and has history of other cancer at age 39. No known family history of cancer. Benign excisional biopsy of the right breast, 1984. Taking unspecified hormones for 24 years. Tomosynthesis is performed. Volpara breast density is b. [facility] lifetime risk of breast cancer 5.3%. Patient states no breast complaints today. Patient has signed MRS History Sheet. Digital Woman Screen Mammo: June 24, 2021 - Exam #: [id number] Bilateral CC and MLO view(s) were taken. Technologist: Mera Lai, Technologist Prior study comparison: June 23, 2020, bilateral digital woman screen mammo performed at [facility], [place]. June 18, 2019, bilateral digital woman screen mammo performed at [facility], [place]. FINDINGS: There are scattered fibroglandular densities. There has been no change in the appearance of the mammogram from the prior studies. There is a mild amount of residual fibroglandular tissue which is fairly symmetric. There is no interval development of dominant mass, architectural distortion, or clustered microcalcification suggestive of malignancy. Assessment: BI-RADS/ACR category 1 mammogram. Negative Mammogram. Recommendation Routine screening mammogram in 1 year (for women over age 40). This mammogram was interpreted with the aid of an FDA-approved computer-aided dectection system. Electronically Signed By: Jamie Smith MD 06/24/21 [id number]
== END ==
LOC: M WHC 14:02
PROVIDERS: ATTEND Advanced Practice Midwife
DX: Z12.31 Encounter for screening mammogram for malignant neoplasm of breast (principal)

== ENCOUNTER → 2021-06-29 | Outpatient (CLI) | payer OTHER ==
[~2021-06-29] MED LIST changes: +ACET-683 PO
[2021-06-29 15:47] LABS: FERRITIN 39 NG/ML (8-252); IRON (FE) 87 UG/DL (50-170); PERCENT SATURATION 20.1 % (13.2-45.0); TOTAL IRON BINDING CAPACITY 433 UG/DL (250-450)
[2021-06-29 15:50] LABS: HEMOGLOBIN A1c 5.8 %
[2021-06-29 16:04] LABS: HEPATITIS B SURFACE ANTIGEN NEGATIVE (NEGATIVE)
[2021-06-29 16:33] LABS: HEPATITIS B CORE ANTIBODY IGM NEGATIVE (NEGATIVE); HEPATITIS C VIRUS ABY INDEX < 0.0 INDEX (<0.8)
== END ==
LOC: M PLALAB 12:28
PROVIDERS: ATTEND Student in an Organized Health Care Education/Training Program
DX: K76.0 Fatty (change of) liver, not elsewhere classified (principal); R73.03 Prediabetes

== ENCOUNTER → 2021-06-30 | Outpatient (CLI) | payer OTHER ==
--- NOTE | 2021-07-01 12:40 | REPVR ---
PROCEDURE INFORMATION: Exam: MR Head Without Contrast Exam date and time: 06/30/2021 9:47 AM Age: 60 years old Clinical indication: Altered mental status/memory loss; Additional info: Memory problem TECHNIQUE: Imaging protocol: MR of the head without contrast. COMPARISON: MRI-Brain without Contrast 08/11/2015 3:15 PM FINDINGS: Brain: No evidence of restricted diffusion to suggest an acute infarct. No mass, midline shift, or mass effect. No evidence of hemorrhage. No FLAIR signal abnormality. Cerebral ventricles: Normal. No ventriculomegaly. Bones/joints: Unremarkable. Paranasal sinuses: Normal as visualized. No acute sinusitis. Mastoid air cells: Normal as visualized. No mastoid effusion. Orbital cavity: Unremarkable. Soft tissues: Unremarkable. IMPRESSION: Unremarkable exam. Previously described FLAIR signal abnormalities in bilateral frontal lobes are not evident on this exam. Electronically signed by: Ca Villalpando On 07/01/2021 12:39:37 PM
== END ==
LOC: M RAD 09:01
PROVIDERS: ATTEND Student in an Organized Health Care Education/Training Program
DX: R41.3 Other amnesia (principal)

== ENCOUNTER 2021-07-02 13:06 | Emergency (ER) | payer OTHER ==
[~2021-07-02] VITALS: Ht 154.9 cm; Wt 79.7 kg
[~2021-07-02 13:06] MED LIST changes: -ACET-683 PO
--- OUTSIDE RECORDS SUMMARY | 2021-07-02 13:16 | CCD ---
Author Author [facility] Organization [facility] Address Unknown Phone Unavailable Care Team Providers Care Pediatric Np Name Role Phone Rosalba Kelly Unavailable PROBLEMS Type Condition ICD9-CM Code UXI88-CV Code Onset Dates Condition S tatus W/U Status Risk SNOMED Code Notes Problem Migraine without aura and with status migrainosu s, not intractable G43.001 Active confirmed 400162780 Problem Myalgia, other site M79.18 Active confirmed 08971253 Problem Hot flashes due to surgical menopause E89.41 Ac tive confirmed 076474535 Problem Memory problem R41.3 Active confirmed 69856 7006 Problem Memory difficulties R41.3 Active confirmed 026045153 Problem Chronic diarrhea K52.9 Active confirmed 236 677505 Problem 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 Active confirmed 64509314 Problem Dependent edema R60.9 Active confirmed 2484 56412 Problem 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 Active confirmed 133826612 Problem Sleep disturbance G47.9 Active confirmed 53 640337 Problem Lumbago with sciatica, right side M54.41 Active confirmed 984646222 Problem Spondylosis of cervicothorac ic region without myelopathy or radiculopathy M47.813 Active confirmed 94396116 Problem Cervical post-laminectomy syndrome M96.1 Activ e confirmed 219346128 Problem Fibromyalgia M79.7 Active confirmed 8961430 05 Problem Perioral dermatitis L71.0 Active confirmed 990667919 Problem Comedonal acne L70.0 Active confirmed 06220 4006 Problem Asthma, exercise induced J45.990 Active confirmed 50816002 Problem LOU (obstructive sleep apnea) G47.33 Active confirm ed 78324431 Problem Bilateral carpal tunnel syndrome G56.03 Active conf irmed 43150157 Problem Mixed hyperlipidemia E78.2 Active confirmed 294755098 Problem Bilateral occipital neuralgia M54.81 Active confirm ed 69359376 Problem Seborrheic dermatitis L21.9 Active confirmed 35230184 Problem Decreased hearing of both ears H91.93 Active confir med 560313557 Problem Urinary frequency R35.0 Active confirmed 16 3472219 Problem Stress incontinence N39.3 Active confirmed 54793177 Problem Fatigue, unspecified type R53.83 Active confirmed 05616545 Problem Irritable bowel syndrome with diarrhea K58.0 A ctive confirmed 166018729 Problem Depression, unspecified depression type F32.9 Active confirmed 12779026 Problem Genital herpes simplex, unspecified site A60.00 Active confirmed 63797563 Problem Cervical disc disorder with radiculopath y, unspecified cervical region M50.10 Active confirmed 265176716 Problem Moderate persistent asthma, unspecified whether complicate d J45.40 Active confirmed 658746089 Problem Pain in right finger(s) M79.644 Active confirmed 735096068799783 Problem Postmenopausal atrophic vaginitis N95.2 Active con firmed 38707086 Problem Mild persistent asthma without complication J45.30 Active confirmed 826369391 Problem Pain in left finger(s) M79.645 Active confirmed 49205766798403392 Problem Chronic migraine G43.709 Active confirmed 42 7395893 Problem Chronic GERD K21.9 Active confirmed 3255606 09 Problem Seasonal 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, unspecified trigger J3 0.2 Active confirmed 357910418 Problem Genital herpes A60.00 Active confirmed 17485 006 Problem Hepatic steatosis K76.0 Active confirmed 19 1890980 Problem Olecranon bursitis of right elbow M70.21 Active confirmed 930679008289176 Problem Other chronic pain G89.29 Active confirmed 8 5135991 Problem NAFL (nonalcoholic fatty liver) K76.0 Active confi rmed 513187709 Problem Pre-diabetes R73.03 Active confirmed 7939356 02 ALLERGIES Allergen (clinical drug ingredient) Drug/Non Drug Allergy do cumented on EMR Reaction Allergy Type Onset Date Status Latex Latex rash Drug Allergy Active vancomycin Vancomycin HCl([facility] Code:[address]-96) hives/layla athing problems Drug Allergy Active Doxycycline Calcium hives/breathing problems Drug Allergy Active Gonadotropins, Equine Horse-derived Products Unknown Drug Allergy Active crab allergenic extract Crab (Diagnostic)([facility] Code:[address]-20 ) Anaphylaxis Drug Allergy Active topiramate Topamax([facility] Code:[address]-53) headache Drug Allergy Active ENCOUNTERS from 1960 to 2021-06-30 Encounter Location Date Provider Diagnosis [facility] [place] [address] [phone] [place] [address] Jun, Rosalba Kelly NAFL (nonalcoholic f atty liver) K76.0 ; Olecranon bursitis of right elbow M70.21 ; Mixed hyperlipidemia E78.2 and Pre-diabetes R73.03 IMMUNIZATIONS Vaccine Route Administration Date Status COVID-19 dose #1 given elsewhere Unspecified Unknown Nov Administered Influenza Pharmacy Given IM Intramuscular Jun 26, 2019 Admini stered Influenza 18 yrs & older Flublok IM Intramuscular Jun 12, 2018 Administered Pneumococcal Adult 0.5mL Pneumovax 23 IM Intramuscular November 29, 2017 Administered TDAP 0.5mL (Boostrix) IM Intramuscular Jul 08, 2015 Administe red Influenza 6mo & up Fluzone IM Intramuscular Jul 30, 2017 Admi nistered Influenza 6mo & up Fluzone IM Intramuscular Jul 08, 2015 Admi nistered SOCIAL HISTORY Tobacco Use: Social History Observation Description Date Details (start date - stop date) Former Smoker Sex Assigned At : Social History Observation Description Sex Assigned At Unknown Education: Question Answer Notes Level of Education: High School Audit Question Answer Notes Total Score: 0 Interpretation: Alcohol Education Language: Question Answer Notes Languages spoken: Turkmen other-French is her first language Taoism: Question Answer Notes Taoism 08 Religion Domestic Violence: Question Answer Notes Status: Single Sexual Hx: Question Answer Notes Had sex in the last 12 months (vaginal, oral, or anal)? No Drug and Alcohol Question Answer Notes Total Score: 0 Interpretation: No problems reported Alcohol Screening: Question Answer Notes Did you have a drink containing alcohol in the past year? No Points 0 Interpretation Negative BMI Care Goal Follow-Up Question Answer Notes Above Normal BMI Follow-Up Giving encouragement to exercise Tobacco Use: Question Answer Notes Are you a: former smoker How long has it been since you last smoked? 5-10 years REASON FOR REFERRAL No Information VITAL SIGNS Weight 173.6 lbs Jun, Weight-kg 78.74 kg Jun, Height 60 in Jun, BMI 33.90 kg/m2 Jun, Heart Rate 106 /min Jun, Respiratory Rate 18 /min Jun, Temperature 97.2 degrees Fahrenheit Jun, Oximetry 96 Jun, Blood pressure systolic 122 mm Hg Jun, Blood pressure diastolic 82 mm Hg Jun, MEDICATIONS Medication SIG (Take, Route, Frequency, Duration) Notes Start Da te End Date Status Albuterol Sulfate HFA 108 (90 Base) MCG/ACT 2 puffs as needed Inhalation every 4 hrs for 90 day(s) Mar, Active Medical Compression Stockings - as directed topically daily; ICD10: R60.0 for 99 months Active Pseudoephedrine HCl 30 MG 1 tablet 30 minutes prior to hbo treatment for nasal congestion Orally Three times a day for 7 day(s) Mar, Active Cholestyramine 4 GM/DOSE USE 1 SCOOP TWICE A DAY orally twic e a day for 21 days Active Valtrex 1 GM 1 tablet Orally Once a day. If outbreak occurs take 1 tab twice per day for 5 days then continue 1 tab per day Jun, Active Wrist Splint/Cock-Up/Right Sm - as directed topically nightly fo r 90 day(s) Mar, Active Estrace 1 mg 1 tablet Orally once daily for 90 day(s) Active metFORMIN HCl 850 MG 1 tablet with a meal Orally Once a day for 90 day(s) Jun, Active Wrist Splint/Cock-Up/Left Sm - as directed topically nightly for 90 day(s) Mar, Active Dicyclomine HCl 20 MG 1 tablet Orally Four times a day for 30 da y(s) 03/08/21 Feb, Active Estrace 0.1 MG/GM 0.5 gm Vaginal twice a week for 90 day(s) Active Pantoprazole Sodium 40 MG TAKE ONE TABLET BY MOUTH TWI CE A DAY orally bid for 30 Active Azelastine HCl 0.1 % 1 puff in each nostril Nasally Twice a day for 3 0 Active Diphenoxylate-Atropine 2.5-0.025 MG 1 tablet as needed Orally tw o times a day Active Aspirin 81 MG 1 tablet Orally Once a day Dec, Active Lidocaine 4 % 1 application as needed for pain Externally to lesions Three times a day Jun, Not-Taking Ashburn 3 1000 MG 1 capsule Orally Once a day Active Atorvastatin Calcium 80 MG 1 tablet Orally Once a day for 90 day (s) Jun, Active traMADol HCl 50 MG 1 tab orally every 6 hours as needed geovani n MDD=3 for 30 days 03/08/21 Jun, Active Cefdinir 300 MG one tab Orally once a day for 30 days Active Clobetasol Propionate 0.05 % 1 application to scalp Once a day for 30 days Active Rizatriptan Benzoate 5 MG 1 tablet Orally 1 as needed for migraine headache may repeat in 3 hrs if neded MDD2 for 30 Days Aug, Active Acetaminophen ER 650 MG 1 tablets as needed Orally every 4 hrs f or 21 day(s) May, Active hydrOXYzine Pamoate 25 MG 1 capsule as needed Orally nightly for 30 day(s) Jun, Active Vitamin D3 5000 units 1 capsule Orally Once a day Active Lyrica 150 MG 1 capsule Orally for pain tid for 30 days May, Not-Taking Cyclobenzaprine HCl 10 MG 1 tablet Orally for spsms an d pain bid as needed MDD2 for 30 days 03/08/21 Jun, Active Lutein Vision Blend Orally daily Ac tive Cymbalta 20 MG 1 capsule Orally Once a day for 30 day(s) Active Lyrica 150 MG 1 capsule Orally for pain MDD4 three carley es daily for 30 days 03/08/21 Jun, Active Lasix 40 MG 1 tablet Orally Once a day for 90 day(s) Active DULoxetine HCl 20 MG 1 capsule Orally for pain Daily for 30 days May, Active Triamcinolone Acetonide 55 MCG/ACT 1 spray in each nos tril Nasally Once a day for 30 day(s) Active buPROPion HCl 75 MG 1 tablet Orally Daily for 90 days 08 2020 Active PROCEDURES No Information RESULTS Component Value Reference Range FERRITIN Reviewed date:06/30/2021 14:44:28 Interpretation: Performing Lab:[facility], [facility] [address] [address] , ,[facility] FERRITIN 39 8-252 HEPATITIS PROFILE ACUTE Reviewed date:06/30/2021 14:44:15 Interpretation: Performing Lab:[facility] [address] [address] , ,[facility] HEPATITIS C VIRUS FRANC INDEX < 0.0 <0.8 HEPATITIS B SURFACE ANTIGEN NEGATIVE NEGATIVE HEPATITIS B CORE ANTIBODY IGM NEGATIVE NEGATIVE HEPATITIS A ANTIBODY IGM NEGATIVE NEGATIVE HEMOGLOBIN A1c Reviewed date:06/30/2021 14:44:38 Interpretation: Performing Lab:[facility] [address] [address] , ,[facility] HEMOGLOBIN A1c 5.8 ESTIMATED AVERAGE GLUCOSE 120 60-110 TOTAL IRON BINDING CAPACIT Reviewed date:06/30/2021 14:44:00 Interpretation: Performing Lab:[facility] [address] [address] , ,[facility] IRON (FE) 87 50-170 TOTAL IRON BINDING CAPACITY 433 250-450 PERCENT SATURATION 20.1 13.2-45.0 REASON FOR VISIT Right elbow pain MEDICAL (GENERAL) HISTORY Type Description Date Medical History Esophageal reflux Medical History asthma Medical History migraine headache Medical History Arthritis Medical History abnormal pap smear/several pravin 3 w/cryo (Dr. Bernard) Medical History Genital herpes/ 1994 Medical History glaucoma Medical History ASCVD risk 0.8% Medical History Cervical spondyloses C3/4 and C4/5 s/p A CDF Medical History Depression Medical History Fibromyalgia Medical History Stomach ulcer Medical History Hormone replacement therapy (postmenopau echo) Medical History Postmenopausal atrophic vaginitis Medical History Cervical post-laminectomy syndrome Medical History CDiff Medical History Hstory of LOU Medical History Encounter for gynecological examination (general) (routine) with abnormal findings Medical History Chronic migraine w/o aura w/ o status migrainosus, not intractable Medical History Bilateral carpal tunnel Medical History Very mild tricuspid regurgit ation and very mild left ventricular hypertrophy Medical History Bilateral carpal tunnel Surgical History hysterectomy, total with BSO-dysplasia- C-3 1993 Surgical History cholecystectomy 1993 Surgical History breast biopsy Surgical History c5-c6 fusion Surgical History endoscopy /colonoscopy 2013 Surgical History Endoscopy-benign findings, c olonoscopy - nonbleeding internal hemorrhoids, diverticula in recto-sigmoid. Path report: fragments of colonic mucosa with increased lymphoplasma infiltrates of lamina propria 01/2014 Surgical History Anterior cervical discectomy and fusion (ACDF) by Dr. Bill Hernandez, [facility] 06/04/15 Surgical History left CTS release 09/13/17 Surgical History TVT procedure Dr Cody 04/2018 Surgical History left hand carpal tunnel release 2017 Hospitalization History ACDF surgery, [facility] 925/15-06/07/15 Hospitalization History C-Diff 08/14/17-08/18/17 Goals Section No Information Health Concerns No Information MEDICAL EQUIPMENT No Information MENTAL STATUS No Information FUNCTIONAL STATUS No Information ASSESSMENTS Encounter Date Diagnosis Assessment Notes Treatment Notes Treatm ent Clinical Notes Jun, Olecranon bursitis of right elbow (ICD-10 - M70. 21) Right posterior elbow pain likely due to olecranon bursitis, other ddx include triceps tendinoplasty vs posterior impingement. Recommended conservative care with resting, icing, and avoiding compression; patient may continue to take current pain medication for pain control. Bursitis material was printed. Physical therapy offered and patient declines physical therapy. Advised the patient that if she has any fever, chills, or erythema, or worsening symptoms, she should call the clinic or seek immediate medical care. Re-check in 1 week, and if no improvement, may consider elbow X ray Jun, NAFL (nonalcoholic fatty liver) (ICD-10 - K76.0) Hepatis steatosis shown on imaging. No current alcohol use or history of alcohol use. Advised the patient for weight loss 0.5 to 1kg loss/week; life style modification counseled; calorie-counting and DASH diet educational material given to patient. Plan to recheck AST/ALT every 6 months after life style modification is implemented. R/o hepatitis, hemachromatosis, and progression of pre-diabetes into diabetes. Jun, Mixed hyperlipidemia (ICD-10 - E78.2) Increase atorvastatin to 80mg daily. Advised the patient if she has adverse reaction such as myalgia, she should stop the Atorvastatin 80mg daily and contact the clinic Jun, Pre-diabetes (ICD-10 - R73.03) Recheck A1C. Start metformin at 850mg once a day. If she has adverse reaction such as nausea, vomiting, or worsening diarrhea, please stop the metformin and contact the office. PLAN OF TREATMENT Medication Medication Name Sig Start Date Stop Date traMADol HCl 50 MG 1 tab orally every 6 hours as needed geovani n MDD=3 for 30 days Jun, Lyrica 150 MG 1 capsule Orally for pain MDD4 three carley es daily for 30 days Jun, Rizatriptan Benzoate 5 MG 1 tablet Orally 1 as needed for migraine headache may repeat in 3 hrs if neded MDD2 for 30 Days Aug, Cyclobenzaprine HCl 10 MG 1 tablet Orally for spsms an d pain bid as needed MDD2 for 30 days Jun, Aspirin 81 MG 1 tablet Orally Once a day Dec, metFORMIN HCl 850 MG 1 tablet with a meal Orally Once a day for 90 day(s) Jun, Atorvastatin Calcium 80 MG 1 tablet Orally Once a day for 90 day(s) Jun, Cymbalta 20 MG 1 capsule Orally Once a day for 30 day(s) Clobetasol Propionate 0.05 % 1 application to scalp Once a day f or 30 days Cefdinir 300 MG one tab Orally once a day for 30 days Treatment Notes Assessment Notes Clinical Notes Olecranon bursitis of right elbow Right posterior elbow pain likely due to olecranon bursitis, other ddx include triceps tendinoplasty vs posterior impingement. Recommended conservative care with resting, icing, and avoiding compression; patient may continue to take current pain medication for pain control. Bursitis material was printed. Physical therapy offered and patient declines physical therapy. Advised the patient that if she has any fever, chills, or erythema, or worsening symptoms, she should call the clinic or seek immediate medical care. Re-check in 1 week, and if no improvement, may consider elbow X ray NAFL (nonalcoholic fatty liver) Hepatis steatosis shown on imaging. No current alcohol use or history of alcohol use. Advised the patient for weight loss 0.5 to 1kg loss/week; life style modification counseled; calorie-counting and DASH diet educational material given to patient. Plan to recheck AST/ALT every 6 months after life style modification is implemented. R/o hepatitis, hemachromatosis, and progression of pre-diabetes into diabetes. Mixed hyperlipidemia Increase atorvastat in to 80mg daily. Advised the patient if she has adverse reaction such as myalgia, she should stop the Atorvastatin 80mg daily and contact the clinic Pre-diabetes Recheck A1C. Start m etformin at 850mg once a day. If she has adverse reaction such as nausea, vomiting, or worsening diarrhea, please stop the metformin and contact the office. Treatment Notes Test Name Order Date IRON (FE) 2021-06-29 INSULIN LEVEL 2021-06-29 Next Appt Details 1 Week Reason:Right posterior elbow pain follow up, lab results discussion Provider Name:Rosalba Kelly, 2021-07-06 10 :45:00 AM, [address] [facility] [address], , [place], [address], Provider Name:Johann Alejandro, 2021-07-21 11:45:00 AM, [address], , [place], [address], Provider Name:Seble Mayberry, 03:45:00 PM, [address], , [place], [address], Follow Up:1 WeekRight posterior elbow pain follow up, lab results discussion Insurance Providers Payer Name Payer Address Payer Phone Insured Name Patient Relati onship to Insured Coverage Start Date Coverage End Date [facility] [employer] [address] [facility] [phone] [place] self
--- OUTSIDE RECORDS SUMMARY | 2021-07-02 13:17 | CCD ---
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 Name Role Phone Johann Alejandro Unavailable PROBLEMS Type Condition ICD9-CM Code YMS96-LO Code Onset Dates Condition S tatus W/U Status Risk SNOMED Code Notes Problem Bilateral occipital neuralgia M54.81 Active confirm ed 42602105 Problem Stress incontinence N39.3 Active confirmed 87469998 Problem Irritable bowel syndrome with diarrhea K58.0 A ctive confirmed 071232127 Problem 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 Active confirmed 643253214 Problem Lumbago with sciatica, right side M54.41 Active confirmed 465313288 Problem Spondylosis of cervicothorac ic region without myelopathy or radiculopathy M47.813 Active confirmed 81105734 Problem Cervical post-laminectomy syndrome M96.1 Activ e confirmed 129763875 Problem LOU (obstructive sleep apnea) G47.33 Active confirm ed 53824549 Problem Bilateral carpal tunnel syndrome G56.03 Active conf irmed 27189202 Problem Fibromyalgia M79.7 Active confirmed 5013159 05 Problem Other chronic pain G89.29 Active confirmed 8 2793644 Problem Decreased hearing of both ears H91.93 Active confir med 316810177 Problem Asthma, exercise induced J45.990 Active confirmed 66187118 Problem Memory problem R41.3 Active confirmed 16060 7006 Problem Memory difficulties R41.3 Active confirmed 608653626 Problem Chronic diarrhea K52.9 Active confirmed 236 125815 Problem 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0 Active confirmed 65791 4006 Problem Seborrheic dermatitis L21.9 Active confirmed 03307258 Problem Mixed hyperlipidemia E78.2 Active confirmed 064588321 Problem Urinary frequency R35.0 Active confirmed 16 2775146 Problem Hot flashes due to surgical menopause E89.41 Ac tive confirmed 869751959 Problem Cervical disc disorder with radiculopath y, unspecified cervical region M50.10 Active confirmed 362289245 Problem Migraine without aura and with status migrainosu s, not intractable G43.001 Active confirmed 804645959 Problem Myalgia, other site M79.18 Active confirmed 14510510 Problem Depression, unspecified depression type F32.9 Active confirmed 36150977 Problem Sleep disturbance G47.9 Active confirmed 53 121554 Problem Dependent edema R60.9 Active confirmed 2484 47382 Problem Fatigue, unspecified type R53.83 Active confirmed 46729986 ALLERGIES Allergen (clinical drug ingredient) Drug/Non Drug Allergy do cumented on EMR Reaction Allergy Type Onset Date Status sea crab Anaphylaxis Non Drug Allergy Active vancomycin Vancomycin HCl(NDC Code:[address]-79) hives/layla athing problems Drug Allergy Active Doxycycline Calcium hives/breathing problems Drug Allergy Active Horse hair Unknown Non Drug Allergy Active topiramate Topamax(NDC Code:[address]-02) headache Drug Allergy Active Latex latex rash Non Drug Allergy Active ENCOUNTERS from 1960 to 2021-05-30 Encounter Location Date Provider Diagnosis [facility] [address] Floor [phone] [place] [address] 16 May, 2021 Johann Alejandro IMMUNIZATIONS Vaccine Route Administration Date Status Influenza 18 yrs & older Flublok IM Intramuscular Jun 12, 2018 Administered COVID-19 dose #1 given elsewhere Unspecified Unknown Mar 2020 Administered Influenza Pharmacy Given IM Intramuscular Jun 26, 2019 Admini stered Pneumococcal Adult 0.5mL Pneumovax 23 IM Intramuscular [...] Education Language: Question Answer Notes Languages spoken: Stateless other-Polish is her first language Sabianism: Question Answer Notes Sabianism 08 Shinto Domestic Violence: Question Answer Notes Status: Single [...] REASON FOR REFERRAL No Information VITAL SIGNS No information MEDICATIONS Medication SIG (Take, Route, Frequency, Duration) Notes Start Da te End Date Status buPROPion HCl 75 MG 1 tablet Orally Daily for 90 days 2020 Active Wrist Splint/Cock-Up/Left Sm - as directed topically nightly for 90 day(s) Mar, Active Lutein Vision Blend Orally daily Ac tive DULoxetine HCl 20 MG 1 capsule Orally for pain Daily for 30 days May, Active Albuterol Sulfate HFA 108 (90 Base) MCG/ACT 2 puffs as needed Inhalation every 4 hrs for 90 day(s) Mar, Active Lyrica 150 MG 1 capsule Orally for pain MDD4 four time s daily for 30 days 03/08/21 May, Active Cymbalta 20 MG 1 capsule Orally Twice a day for 30 day(s) Active traMADol HCl 50 MG 1 tab orally every 6 hours as needed geovani n MDD=3 for 30 days 03/08/21 16 May, 2021 Active Lyrica 150 MG 1 capsule Orally for pain tid for 30 days May, Active Triamcinolone Acetonide 55 MCG/ACT 1 spray in each nos tril Nasally Once a day for 30 day(s) Active Cyclobenzaprine HCl 10 MG 1 tablet Orally for spsms an d pain bid as needed MDD2 for 30 days 03/08/21 Jun, Active Vitamin D3 5000 units 1 capsule Orally Once a day Active Dicyclomine HCl 20 MG 1 tablet Orally Four times a day for 30 da y(s) 03/08/21 Feb, Active Diphenoxylate-Atropine 2.5-0.025 MG 1 tablet as needed Orally tw o times a day Active Herald 3 1000 MG 1 capsule Orally Once a day Active Rizatriptan Benzoate 5 MG 1 tablet Orally 1 as needed for migraine headache may repeat in 3 hrs if neded MDD2 for 30 Days Aug, Active Estrace 1 mg 1 tablet Orally once daily for 90 day(s) Active Medical Compression Stockings - as directed topically daily; ICD10: R60.0 for 99 months Active Wrist Splint/Cock-Up/Right Sm - as directed topically nightly fo r 90 day(s) Mar, Active Pseudoephedrine HCl 30 MG 1 tablet 30 minutes prior to hbo treatment for nasal congestion Orally Three times a day for 7 day(s) Mar, Active Azelastine HCl 0.1 % 1 puff in each nostril Nasally Twice a day for 3 0 Active Lasix 40 MG 1 tablet Orally Once a day for 90 day(s) Active Acyclovir 400 MG 1 tablet Orally twice a day as needed for herpes o utbreak Active Cholestyramine 4 GM/DOSE 1 scoop Orally Twice a day for 21 Active Estrace 0.1 MG/GM 0.5 gm Vaginal twice a week for 90 day(s) Active Aspirin 81 MG 1 tablet Orally Once a day Dec, Active Pantoprazole Sodium 40 MG TAKE ONE TABLET BY MOUTH TWI CE A DAY orally bid for 30 Active Atorvastatin Calcium 20 MG 1 tablet Orally Once a day 2020 Active PROCEDURES No Information RESULTS No Results REASON FOR VISIT INS MEDICAL (GENERAL) HISTORY Type Description Date Medical [...] History c5-c6 fusion Surgical History endoscopy /colonoscopy 2010, 2013 Surgical History Endoscopy-benign findings, c olonoscopy - nonbleeding internal hemorrhoids, diverticula in recto-sigmoid. Path report: fragments of colonic mucosa with increased lymphoplasma infiltrates of lamina propria 01/2014 Surgical History Anterior cervical discectomy and fusion (ACDF) by Dr. Bill Hernandez, [facility] 06/04/15 Surgical History left CTS release 09/13/17 Surgical History TVT procedure Dr Cody 04/2018 Surgical History left hand carpal tunnel release 2017 Hospitalization History ACDF surgery, [facility] 925/15-06/07/15 Hospitalization History C-Diff 08/14/17-08/18/17 Goals Section No Information Health Concerns No Information MEDICAL EQUIPMENT No Information MENTAL STATUS No Information FUNCTIONAL STATUS No Information ASSESSMENTS No Information PLAN OF TREATMENT Medication Medication Name Sig Start Date Stop Date DULoxetine HCl 20 MG 1 capsule Orally for pain Daily for 30 days May, Rizatriptan Benzoate 5 MG 1 tablet Orally 1 as needed for migraine headache may repeat in 3 hrs if neded MDD2 for 30 Days Aug, Lyrica 150 MG 1 capsule Orally for pain MDD4 four time s daily for 30 days May, traMADol HCl 50 MG 1 tab orally every 6 hours as needed geovani n MDD=3 for 30 days 16 Sep, 2021 Lyrica 150 MG 1 capsule Orally for pain tid for 30 days May Cyclobenzaprine HCl 10 MG 1 tablet Orally for spsms an d pain bid as needed MDD2 for 30 days Jun, Next Appt Details Provider Name:Rosalba Leticia, 2021-06-01 09 :30:00 AM, [address] [facility], , [place], [address], Provider Name:Seble Mayberry, 11:00:00 AM, [address] [facility], , [place], [address], Provider Name:Judi GALVEZ, 2021-06-24 01:00:00 PM, [address] [place] [address], , [place], [address], Provider Name:Lucila Bowles, 2021-06-24 02:00:00 PM, [address] [place] [address], , [place], [address], Insurance Providers Payer Name Payer Address Payer Phone Insured Name Patient Relati onship to Insured Coverage Start Date Coverage End Date [facility] [address] [place] [phone] EDLIA BLOUNT self 1995
--- OUTSIDE RECORDS SUMMARY | 2021-07-02 13:17 | CCD | Continuity of Care Document ---
Author Author [facility]ylie MENDEZ N[facility] Organization Unknown Address [address] [place] [address] Phone [phone] Care Team Providers Care Red Cap Name Role Phone Gerardo Vigil D.O. AUTM Unavailable Rosalba Kelly D.O. AUTM [phone] AUTM Unavailable Problems Active Problems Provider Date Allergic asthma without status asthmaticus Osmar cabral M.D. Onset: 09/26/2017 Diarrhea Osmar Villalpando M.D. Onset: 018 Abdominal pain Osmar Villalpando M.D. Onset: 018 Gastrointestinal tract finding Osmar Villalpando M.D. Ons et: 09/26/2017 Social History Type Date Description Comments Sex Unknown ETOH Use Denies alcohol use Tobacco Use Start: Unknown Non Smoker Smoking Status Reviewed: 02/15/21 Non Smoker Exercise Type/Frequency walking 2 times week Allergies and adverse reactions Active Allergies Criticality Reaction | Severity Comments Date Doxycycline Unable to assess criticality 09/26/2017 Vancomycin Unable to assess criticality 09/26/2017 Codeine Unable to assess criticality 09/26/2017 Latex Unable to assess criticality 09/26/2017 Crab Unable to assess criticality 01/23/2018 Medications Active Medications SIG Qnty Indications Ordering Provide r Date Sucralfate 1GM/10ML Suspension 10 milliliters by mouth half an hour before meals, and at bedtime. (3 times daily) ( if not covered give tablets) 1260ml R10.13 Osmar cabral M.D. 02/17/2021 Diphenoxylate Hydrochloride/Atropine Sul fate 2.5-0.025mg Tablets one tablet by mouth upto twice daily for diarrhea. ( if having dizziness and light headed, hold and call gi clinic) 60tabs Osmar Villalpando M.D. 07/02/2020 Cholestyramine 4gm Packet mix 1 packet (4 grams) with water and take in morning after breakfast 60units R19.7 Osmar Villalpando M.D. 06/27/2019 Tramadol HCL 50mg Tablets 1-2 every 6 hours as needed for pain Unknown 000 B Complex Capsules 1 cap by mouth every day Unknown Krill Oil 500mg Capsules 1 cap by mouth every day Unknown Pimecrolimus 1% Cream daily a s needed Unknown Fluocinolone Acetonide 0.01% Cream apply 2 x day for 14 days Unknown Fluocinonide 0.05% Cream apply small amount to scalp once a week Unknown Triamcinolone Acetonide 55mcg/Act Aerosol 2 sprays in each nostril 1x day Unknown Ketotifen Fumarate 0.025% Solution drops both eyes every day Unknown Fluticasone Propionate/Salmeterol 113-14mcg/Act Aerosol inhale one puff by mouth twice a day Unkn own Fluocinolone Acetonide 0.01% Cream 2 twice a day as needed Unknown Aspirin 81 Low Dose 81mg Chewtabs 1 cap by mouth every day Unknown Atorvastatin Calcium 20mg Tablets 1 cap by mouth every day Unknown Furosemide 40mg Tablets 1 by mouth every day Unknown Rizatriptan Benzoate 5mg Tablets 1 cap twice a day as needed Unknown SD-Acid Gas Relief 80mg Chewtabs To take after meals for gas/ bloating ( as needed upto 3 times per day). 90units Osmar Villalpando M.D. Duloxetine HCL 20mg Caps DR Part 1cap po qd Unknown Lutein Capsules use as di rected daily Unknown Vitamin D3 5000Unit Capsules 1cap po wkly Unknown Vitamin B12 Tablets 1tab po qd Unknown Estrace 0.1mg/GM Cream insert 1/2gram 2x per week Unknown Acyclovir 400mg Tablets 2t abs daily prn Unknown Estradiol 1mg Tablets 1tab po daily Unknown Pantoprazole Sodium 40mg Tablets D R 1tab po bid Unknown Cyclobenzaprine HCL 10mg Tablets 1tab po tid Unknown Lyrica 150mg Capsules 1tab po bid Unknown History Medications Simethicone 80mg Chewtabs 1 tablet two to three times a day after meals ( for bloating, take as needed). 90units Osmar Villalpando M.D. 01/05/2021 - 01/15/2021 Immunizations Description No Information Available Vital Signs Date Vital Result Comment 06/15/2021 8:42am BP Systolic 134 mmHg BP Diastolic 70 mmHg Heart Rate 58 /min O2 % BldC Oximetry 97 % Height 58 inches 4'10" Weight 174.00 lb BMI (Body Mass Index) 36.4 kg/m2 [place] Body Weight 100 lb Weight 78.926 kg BSA (Body Surface Area) 1.72 m2 02/17/2021 1:28pm BP Systolic 102 mmHg BP Diastolic 60 mmHg Height 58 inches 4'10" Weight 175.00 lb BMI (Body Mass Index) 36.6 kg/m2 [place] Body Weight 100 lb Weight 79.380 kg BSA (Body Surface Area) 1.72 m2 Results Test Acquired Date Facility Test Result H/L Range Note Laboratory test finding 01/28/2021 [facility] Main Lab [address] [place] [address] [phone] Pathology Request For Service (SEE NOTE) 1 1 FINAL DIAGNOSIS A-Gastric fundus ulcer, biopsy: Gastric mucosa with ulceration, mild inflammation, reparative and reactive changes. No H.pylori is identified. B-Gastric antrum, biopsy: Antral type gastric mucosa with mild chronic inflammation. No H.pylori is identified. C-Small bowel, biopsy: Small intestinal mucosa with normal villous architecture and nonspecific mild inflammation. PAS stain is negative for whipple disease bacteria, microvillus inclusion disease or microorganisms. 01/31/2021 - 1134 CLINICAL DIAGNOSIS Epigastric pain, chronic diarrhea 01/28/2021 - 1452 GROSS DIAGNOSIS A - Received in formalin labeled "gastric fundus ulcer biopsy" and consists of a fragment of tissue, 0.1 x 0.1 x 0.1 cm. All in one. B - Received in formalin labeled "gastric antrum biopsy, R/O H. pylori" and consists of a fragment of tissue, 0.2 x 0.1 x 0.1 cm. All in one. C - Received in formalin labeled "small bowel biopsy" and consists of a fragment of tissue, 0.1 x 0.1 x 0.1 cm. The provider has requested for PAS stain. All in one. -OA 01/28/2021 - 1452 Signed CLAUDIA LEAL MD 01/31/2021 1134 Procedures Date Code Description Status 06/15/2021 59713 Office/Outpatient Established Lo w MDM 20-29 Min Completed 02/17/2021 47758 Office/Outpatient Established Lo w MDM 20-29 Min Completed 02/15/2021 46538 Office/Outpatient New Low MDM 30 -44 Minutes Completed 01/28/2021 46686 Endoscopy Upper GI Biopsy Comple TheFormTool Description No Information Available Encounters Type Date Location Provider Dx Diagnosis Office Visit 06/15/2021 8:45a [facility]/Thoracic Annamarie Mendez, N.P. G47.33 Obstructive sleep apnea (adult) (pediatr ic) Z71.2 Person consulting for explan ation of exam or test findings Office Visit 02/17/2021 11:40a [facility] Gastroenterology [facility] linusice Osmar Villalpando M.D. R10.13 Epigastric pain R19.7 Diarrhea, unspecified Office Visit 02/15/2021 12:45p [facility]Thoracic Annamarie Mendez, N.P. R06.83 Snoring R40.0 Somnolence Assessments Date Code Description Provider 06/15/2021 G47.33 Obstructive sleep apnea (adult) (pediatric) Kesha Mendez, N.PJolanta 06/15/2021 Z71.2 Person consulting fo r explanation of examination or test findings Kesha Mendez N.PJolanta 02/17/2021 R10.13 Epigastric pain Osmar Thorne ala, M.D. 02/17/2021 R19.7 Diarrhea, unspecified Osmar Villalpando M.D. 02/15/2021 R06.83 Snoring Kesha Mendez N .P. 02/15/2021 R40.0 Somnolence Kesha Mendez N .P. 01/28/2021 R19.7 Diarrhea, unspecified Osmar Villalpando M.D. 01/28/2021 R10.13 Epigastric pain Osmar Thorne ala, M.D. 01/28/2021 K29.70 Gastritis, unspecified, without bleeding Osmar Villalpando M.D. 01/28/2021 K25.9 Gastric ulcer, unspe cified as acute or chronic, without hemorrhage or perforation Osmar Villalpando M.D. Plan of Treatment Future Appointment(s):* 08/11/2021 11:30 am - Kesha Mendez N.Crystal at [facility] Pulmonary/Thoracic * 07/11/2021 12:00 pm - Nocturnal Oximetry at [facility]Thoracic 06/15/2021 - Kesha Mendez N.PJolanta* G47.33 Obstructive sleep apnea (adult) (pediatric) * Z71.2 Person consulting for explanation of examination or test findings * * New Orders:* Nocturnal Oximetry, Scheduled: 07/11/21 * Follow up:* 1. Nocturnal oximetry 2-4 weeks. 2. Follow up in 45-60 days with a compliance report. Functional Status Description No Information Available Mental Status Description No Information Available Referrals Refer to Dr Reason for Referral Status Appt Date Kesha Mendez F.NNiki LOU Scheduled 02/15/2021 [facility] [address] [place], [place] [address] [phone] Harjeet Ngo R.P.A.-C. Closed [facility] [address] [place], [place] [address] [phone] Osmar Villalpando M.D. 18521 16421 [id number] Closed 01/27/2021 [facility] [address] [facility], [address] [place], [place] [address] [phone] Osmar Villalpando M.D. DIARRHEA, R19.7 Scheduled 07/12 [facility] [address] [facility], [facility] [address] [place], [place] [id number] [phone]
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
--- OUTSIDE RECORDS SUMMARY | 2021-07-02 13:17 | CCD | Continuity of Care Document ---
Author Author Kylie MAYERS Organization Unknown Address [address], [place] [address] Phone [phone] Care Team Providers Care Pet House Sitter Name Role Phone Lucrecia Barr DO AUTM [phone] Alessandro Knox MD AUTM [phone] Problems Active Problems Provider Date Allergic rhinitis due to pollen Onset: 0 03/22/2017 Note: 4+ reaction to grass pollens on sc ratch test. 3+ reaction to weed pollen on intradermal test. Completed 2014. Allergic rhinitis due to house dust mite Onset: 03/22/2017 Note: 2+ reaction to dust mite and cockr oach on intradermal test. Completed 2014. Mild persistent asthma Onset: 03/22/2017 Gastroesophageal reflux disease Guero Mayers M.D. On set: 06/24/2020 Note: Followed by PCP. Social History Type Date Description Comments Sex Unknown Tobacco Use Start: Unknown End: Unknown Patient is a former smoker started age 25- quit age 49; 1 ppd Smoking Status Reviewed: 06/13/21 Patient is a former smoker st arted age 25- quit age 49; 1/4 ppd Allergies and adverse reactions Active Allergies Criticality Reaction | Severity Comments Date Doxycycline Hyclate Unable to assess criticality sob, rash 05/03/2019 Latex Exam Gloves Unable to assess criticality sob, ra sh 05/03/2019 Vancomycin Unable to assess criticality sob, rash 05/03/2019 Shell Fish (Shrimp, Crayfish, Lobster, Crab) Unable to assess criti cality 05/03/2019 Inactive Allergies Codeine Sulfate Unable to assess criticality sob, rash 05/03/2019 Medications Active Medications SIG Qnty Indications Ordering Provide r Date Fluticasone Propionate/Salmeterol 113-14mcg/Act Aerosol 1 puff by inhalation two times a day. 1units Guero Mayers M.D. 05/16/2019 Nasacort Allergy 24HR 55mcg/Act Ae rosol 2 sprays per nostril once daily. should be used daily to be most effective. 10.800ml J30.1 Guero Mayers M.D. 05/16/2019 Cholestyramine Powder Guero Mayers M.D. 05/14/2019 Alaway 0.025% Solution 1-2 drops per eye once daily as needed 5ml J30.1 Guero Mayers M.D. 0 05/14/2019 Lyrica 75mg Capsules take 2 capsules (150 mg) by oral route 2 times per day Unknown Tramadol HCL 50mg Tablets take 1 tablet by oral route As needed Unknown Estradiol 1mg Tablets take 1 tablet (1 mg) by oral route once daily Unknown 000 Acyclovir 400mg Tablets take 1 tablet (400 mg) by oral route 2 times per day Unknown Estrace 0.1mg/GM Cream insert 1 gram by vaginal route once weekly Unknown Pantoprazole Sodium 40mg Tablets D R take 1 tablet (40 mg) by oral route once daily Unknown Dicyclomine HCL 20mg Tablets Take 1 Tablet By Mouth 2 3 Times A Day Take AT Least 15 Minutes Before Meals For Diarrhea And Abdominal Cramps Unknown Ventolin HFA 108(90Base) mcg/Act A erosol inhale 2 puffs (180) mcg by mouth every 4-6 hours as needed and 15 minutes prior to exercise 16gm Guero Mayers M.D. Immunizations Description No Information Available Vital Signs Date Vital Result Comment 06/13/2021 3:16pm Weight 176.12 lb Height 61 inches 5'1" Heart Rate 71 /min Respiratory Rate 18 /min BP Systolic 90 mmHg BP Diastolic 57 mmHg BMI (Body Mass Index) 33.3 kg/m2 12/23/2020 3:24pm Weight 175.50 lb Height 61 inches 5'1" Heart Rate 66 /min Respiratory Rate 16 /min BP Systolic 118 mmHg BP Diastolic 81 mmHg BMI (Body Mass Index) 33.2 kg/m2 Results Description No Information Available Procedures Date Code Description Status 06/13/2021 53458 Office/Outpatient Established Lo w MDM 20-29 Min Completed 06/13/2021 41889 Bronchodilation Resp onsiveness Spirometry Pre/Post Bronchodil Adm Completed 12/23/2020 12393 Office/Outpatient Established Mo d MDM 30-39 Min Completed 12/23/2020 30291 Office/Outpatient Established Lo w MDM 20-29 Min Completed 12/23/2020 06758 Bronchodilation Resp onsiveness Spirometry Pre/Post Bronchodil Adm Completed Medical Devices Description No Information Available Encounters Type Date Location Provider Dx Diagnosis Office Visit 06/13/2021 3:15p Main Office Guero Mayers M.D. J45.30 Mild persistent asthma, uncomplicated J30.1 Allergic rhinitis due to matthias tiffany J30.89 Other 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 K21.9 Gastro-esophageal reflux dis ease without esophagitis Assessments Date Code Description Provider 06/13/2021 J45.30 Mild persistent asthma, uncompli cated Guero Mayers M.D. 06/13/2021 J30.1 Allergic rhinitis due to pollen Guero Mayers M.D. 06/13/2021 J30.89 Other 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 Guero Mayers M.D. 06/13/2021 K21.9 Gastro-esophageal reflux disease without esophagitis Guero Mayers M.D. Plan of Treatment 06/13/2021 - Guero Mayers M.D.* J45.30 Mild persistent asthma, uncomplicated* Recommendations:* Ms. Andres should stay on AirDuo at 1 puff BID. I explained that AirDuo should be used consistently to be effective. Risks and benefits associated with use of inhaled steroids were explained to the patient as well. The patient should still use albuterol prn cough and wheezing and for activity prophylaxis. Of note, Ms. Andres expressed significant concern over risk of illness due to the current COVID-19 pandemic. She reports she wears several face masks at a time even when she is sleeping (including while in office today). It is possible that her apprehension during the pandemic may be contributing to her increase in symptoms. Reassurance was provided. * J30.1 Allergic rhinitis due to pollen* Recommendations:* Will add Astelin to the plan that she should use when her symptoms increase (suspect significant vasomotor component). Effective allergy avoidance measures were reviewed and recommended again. Due to her increase in rhinitis symptoms, she should restart the prescribed Nasacort spray as directed. Nasal spray should be used consistently every night to be effective. She may use oral antihistamine and Alaway eye drops as needed for symptom flares. * J30.89 Other 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* Recommendations:* The patient should continue using nasal spray every night. The spray should be used consistently to be effective. Effective allergy avoidance measures for dust mites were reviewed and recommended. See recommendations above. * K21.9 Gastro-esophageal reflux disease without esophagitis* Recommendations:* Follow up with GI as recommended by their office. * All * Follow up:* 8 months with PFT. Sooner if needed. Functional Status Description No Information Available Mental Status Description No Information Available Referrals Refer to Reason for Referral Status Appt Date Guero Mayers M.D. Created [address], [place] [address] [phone]
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
--- OUTSIDE RECORDS SUMMARY | 2021-07-02 13:17 | CCD ---
Author Author [facility] Organization [facility] Address Unknown Phone Unavailable Care Team Providers Care Die Maker Apprentice Name Role Phone Rosalba Kelly Unavailable PROBLEMS Type Condition ICD9-CM Code AHV45-MO Code Onset Dates Condition S tatus W/U Status Risk SNOMED Code Notes Problem Lumbago with sciatica, right side M54.41 Active confirmed 240083628 Problem Cervical post-laminectomy syndrome M96.1 Activ e confirmed 071180429 Problem 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 Active confirmed 008440733 Problem Migraine without aura and with status migrainosu s, not intractable G43.001 Active confirmed 019211507 Problem Spondylosis of cervicothorac ic region without myelopathy or radiculopathy M47.813 Active confirmed 66108981 Problem Myalgia, other site M79.18 Active confirmed 50702884 Problem Hot flashes due to surgical menopause E89.41 Ac tive confirmed 513734232 Problem Mixed hyperlipidemia E78.2 Active confirmed 056093139 Problem Bilateral occipital neuralgia M54.81 Active confirm ed 79839870 Problem Seborrheic dermatitis L21.9 Active confirmed 86258408 Problem Decreased hearing of both ears H91.93 Active confir med 013001099 Problem Stress incontinence N39.3 Active confirmed 93881015 Problem Irritable bowel syndrome with diarrhea K58.0 A ctive confirmed 287752669 Problem Pain in left finger(s) M79.645 Active confirmed 83608086568205914 Problem Chronic diarrhea K52.9 Active confirmed 236 404523 Problem Seasonal 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, unspecified trigger J3 0.2 Active confirmed 795385512 Problem Genital herpes A60.00 Active confirmed 05414 006 Problem Pain in right finger(s) M79.644 Active confirmed 372606538518098 Problem Postmenopausal atrophic vaginitis N95.2 Active con firmed 76763065 Problem Fibromyalgia M79.7 Active confirmed 9598046 05 Problem Other chronic pain G89.29 Active confirmed 8 4652055 Problem Perioral dermatitis L71.0 Active confirmed 054156437 Problem Chronic GERD K21.9 Active confirmed 1571713 09 Problem Comedonal acne L70.0 Active confirmed 76253 4006 Problem Asthma, exercise induced J45.990 Active confirmed 73511290 Problem LOU (obstructive sleep apnea) G47.33 Active confirm ed 05131855 Problem Bilateral carpal tunnel syndrome G56.03 Active conf irmed 36687787 Problem Fatigue, unspecified type R53.83 Active confirmed 95949930 Problem Sleep disturbance G47.9 Active confirmed 53 655067 Problem Dependent edema R60.9 Active confirmed 2484 20553 Problem Moderate persistent asthma, unspecified whether complicate d J45.40 Active confirmed 912821120 Problem Memory problem R41.3 Active confirmed 63229 7006 Problem Mild persistent asthma without complication J45.30 Active confirmed 113215842 Problem Memory difficulties R41.3 Active confirmed 371498803 Problem 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 Active confirmed 88202308 Problem Depression, unspecified depression type F32.9 Active confirmed 75650263 Problem Urinary frequency R35.0 Active confirmed 16 8323912 Problem Chronic migraine G43.709 Active confirmed 42 2178443 Problem Cervical disc disorder with radiculopath y, unspecified cervical region M50.10 Active confirmed 825031661 Problem Hepatic steatosis K76.0 Active confirmed 19 2234430 ALLERGIES Allergen (clinical drug ingredient) Drug/Non Drug Allergy do cumented on EMR Reaction Allergy Type Onset Date Status sea crab Anaphylaxis Non Drug Allergy Active vancomycin Vancomycin HCl(NDC Code:[address]-78) hives/layla athing problems Drug Allergy Active Doxycycline Calcium hives/breathing problems Drug Allergy Active Horse hair Unknown Non Drug Allergy Active topiramate Topamax(NDC Code:[address]-20) headache Drug Allergy Active Latex Latex rash Drug Allergy Active ENCOUNTERS from 1960 to 2021-06-21 Encounter Location Date Provider Diagnosis [id number] [place] [address] Jun, 2021 Rosalba Kelly Mild persistent asthma witho ut complication J45.30 IMMUNIZATIONS Vaccine Route Administration Date Status COVID-19 dose #1 given elsewhere Unspecified Unknown Nov 2020 Administered Influenza Pharmacy Given IM Intramuscular [...] Education Language: Question Answer Notes Languages spoken: Vietnamese other-Bulgarian is her first language Uatsdin: Question Answer Notes Uatsdin 08 Confucianism Domestic Violence: Question Answer Notes Status: Single [...] years REASON FOR REFERRAL from 1960 to 2021-06-21 Reason Mild persistent asthma and a llergic rhinitis, following allergy and immunology. Needs re-referral; please evaluate and treat. Thank you Diagnosis 1 Mild persistent asthma witho ut complication (J45.30) Referral Organization [facility] GME Resident Referring Provider First Name Rosalba Referring Provider Last Name Leticia Referring Provider Specialty Family Medicine Referred Provider Guero Padron Referred Provider Specialty Allergy/Immunology Referral Priority Routine General Notes Kesha Hay 06/20/2021 1 :01:01 PM > sent for [facility] form.Angeles Tolentino 06/21/2021 10:02:02 AM > referral # [id number], scanned into chart and faxed to office.SatnamTiffanya 06/21/2021 3:00:20 PM > faxed referralWeiBrandtErnestine 06/21/2021 3:21:05 PM > [facility] referral done for Dr Padron ID# [id number], form faxed Clinical Notes Rosalba Kelly 06/18/2021 1:03: 41 PM > 60 year old very pleasant female has mild persistent asthma and 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 has been following Allergy/Immunology. Your expertise is highly appreciated. Please evaluate and treat. Thank you VITAL [...] 30 days 22 S , 2020 Active [place] 3 1000 MG 1 capsule Orally Once [...] tablets as needed Orally every 4 hrs or 21 day(s) May, Active Diphenoxylate-Atropine 2.5-0.025 MG 1 tablet as needed Orally tw o times a day Active PROCEDURES No Information RESULTS No Results REASON FOR VISIT referral for Advance allergy of [facility] MEDICAL (GENERAL) HISTORY Type Description Date Medical [...] and fusion (ACDF) by Dr. Bill Hernandez, [email or web address] 06/04/15 Surgical History left CTS release 09/13/17 Surgical History TVT procedure Dr Cody 04/2018 Surgical History left hand carpal tunnel release 2017 Hospitalization History ACDF surgery, [facility] [[email or web address]] 925/15-06/07/15 Hospitalization History C-Diff 08/14/17-08/18/17 Goals Section No Information Health Concerns No Information MEDICAL EQUIPMENT No Information MENTAL STATUS No Information FUNCTIONAL STATUS No Information ASSESSMENTS Encounter Date Diagnosis Assessment Notes Treatment Notes Treatm ent Clinical Notes Jun, Mild persistent asthma without complication (ICD -10 - J45.30) 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 Re-referral sent Referrals Referral Date Details Mild persistent asthma and a llergic rhinitis, following allergy and immunology. Needs re-referral; please evaluate and treat. Thank you, Guero Padron Next Appt Details Provider Name:Lucila Bowles, 2021-06-24 02:00:00 PM, [address] [facility], , [place], [address], Provider Name:Nafisa Fajardo, 2021-06-29 09:00:00 AM, [address] [facility], , [place], [place], [facility], Provider Name:Rosalba Kelly, 2021-06-29 11 :30:00 AM, [address] [facility] [address], , [place], [address], Insurance Providers Payer Name Payer Address Payer Phone Insured Name Patient Relati onship to Insured Coverage Start Date Coverage End Date [facility] COMMUNITY PLAN [facility] [address] [facility] [address] [phone] DELIA BLOUNT self
--- OUTSIDE RECORDS SUMMARY | 2021-07-02 13:17 | CCD ---
Author Author [facility] Organization [facility] Address Unknown Phone Unavailable Care Team Providers Care Scenic Artist Name Role Phone Rosalba Kelly Unavailable PROBLEMS Type Condition ICD9-CM Code IYT09-OT Code Onset Dates Condition S tatus W/U Status Risk SNOMED Code Notes Problem Migraine without aura and with status migrainosu s, not intractable G43.001 Active confirmed 909801564 Problem Myalgia, other site M79.18 Active confirmed 11614920 Problem Hot flashes due to surgical menopause E89.41 Ac tive confirmed 424349651 Problem Memory problem R41.3 Active confirmed 19043 7006 Problem Memory difficulties R41.3 Active confirmed 765182422 Problem Chronic diarrhea K52.9 Active confirmed 236 365117 Problem 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 Active confirmed 00768487 Problem Dependent edema R60.9 Active confirmed 2484 73839 Problem 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 Active confirmed 966596158 Problem Sleep disturbance G47.9 Active confirmed 53 444623 Problem Lumbago with sciatica, right side M54.41 Active confirmed 624595471 Problem Spondylosis of cervicothorac ic region without myelopathy or radiculopathy M47.813 Active confirmed 72571300 Problem Cervical post-laminectomy syndrome M96.1 Activ e confirmed 916169074 Problem Fibromyalgia M79.7 Active confirmed 9267456 05 Problem Perioral dermatitis L71.0 Active confirmed 627086727 Problem Comedonal acne L70.0 Active confirmed 76141 4006 Problem Asthma, exercise induced J45.990 Active confirmed 98833093 Problem LOU (obstructive sleep apnea) G47.33 Active confirm ed 68147111 Problem Bilateral carpal tunnel syndrome G56.03 Active conf irmed 55536679 Problem Mixed hyperlipidemia E78.2 Active confirmed 502817111 Problem Bilateral occipital neuralgia M54.81 Active confirm ed 19635994 Problem Seborrheic dermatitis L21.9 Active confirmed 10934394 Problem Decreased hearing of both ears H91.93 Active confir med 737594508 Problem Urinary frequency R35.0 Active confirmed 16 4538182 Problem Stress incontinence N39.3 Active confirmed 59489289 Problem Fatigue, unspecified type R53.83 Active confirmed 50335541 Problem Irritable bowel syndrome with diarrhea K58.0 A ctive confirmed 382784772 Problem Depression, unspecified depression type F32.9 Active confirmed 33235911 Problem Genital herpes simplex, unspecified site A60.00 Active confirmed 04465304 Problem Cervical disc disorder with radiculopath y, unspecified cervical region M50.10 Active confirmed 915550537 Problem Moderate persistent asthma, unspecified whether complicate d J45.40 Active confirmed 208580678 Problem Pain in right finger(s) M79.644 Active confirmed 277538105867170 Problem Postmenopausal atrophic vaginitis N95.2 Active con firmed 74970764 Problem Mild persistent asthma without complication J45.30 Active confirmed 335734097 Problem Pain in left finger(s) M79.645 Active confirmed 20289027747865346 Problem Chronic migraine G43.709 Active confirmed 42 3600314 Problem Chronic GERD K21.9 Active confirmed 4502729 09 Problem Seasonal 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, unspecified trigger J3 0.2 Active confirmed 294840569 Problem Genital herpes A60.00 Active confirmed 91401 006 Problem Hepatic steatosis K76.0 Active confirmed 19 7711465 Problem Olecranon bursitis of right elbow M70.21 Active confirmed 856871425220251 Problem Other chronic pain G89.29 Active confirmed 8 3474376 Problem NAFL (nonalcoholic fatty liver) K76.0 Active confi rmed 108791099 Problem Pre-diabetes R73.03 Active confirmed 6698769 02 ALLERGIES Allergen (clinical drug ingredient) Drug/Non Drug Allergy do cumented on EMR Reaction Allergy Type Onset Date Status Latex Latex rash Drug Allergy Active vancomycin Vancomycin HCl([facility] Code:[address]-76) hives/layla athing problems Drug Allergy Active Doxycycline Calcium hives/breathing problems Drug Allergy Active Gonadotropins, Equine Horse-derived Products Unknown Drug Allergy Active crab allergenic extract Crab (Diagnostic)([facility] Code:[address]-66 ) Anaphylaxis Drug Allergy Active topiramate Topamax([facility] Code:[address]-92) headache Drug Allergy Active ENCOUNTERS from 1960 to 2021-06-30 Encounter [place] [address] Jun, 2021 Rosalba Kelly IMMUNIZATIONS Vaccine Route Administration Date [...] Education Language: Question Answer Notes Languages spoken: Korean other-Urdu is her first language Rastafarian: Question Answer Notes Rastafarian 08 Restorationist Domestic Violence: Question Answer Notes Status: Single [...] lesions Three times a day Jun, Not-Taking [place] 3 1000 MG 1 capsule Orally Once [...] 08 2020 Active PROCEDURES No Information RESULTS No Results REASON FOR VISIT Cardiology appointment MEDICAL (GENERAL) HISTORY Type Description Date Medical [...] discectomy and fusion (ACDF) by Dr. Bill Hernandez [facility] 06/04/15 Surgical History left CTS release 09/13/17 Surgical History TVT procedure Dr Cody 04/2018 Surgical History left hand carpal tunnel release 2017 Hospitalization History ACDF surgery, [facility] 92/15-06/07/15 Hospitalization History C-Diff 08/14/17-08/18/17 Goals Section [...] Orally once a day for 30 days Next Appt Details Provider Name:Rosalba Kelly, 2021-07-06 10 :45:00 AM, [address] [facility] [address], , [place], [address], Provider Name:Johann Alejandro, 2021-07-21 11:45:00 AM, [address], , [place], [address], Provider Name:Seble Mayberry, 03:45:00 PM, [address] [facility], , [place], [address], Insurance Providers Payer Name Payer Address Payer Phone Insured Name Patient Relati onship to Insured Coverage Start Date Coverage End Date [facility] COMMUNITY [facility] [address] [facility] [phone] DELIA BLOUNT self
--- OUTSIDE RECORDS SUMMARY | 2021-07-02 13:17 | CCD ---
Author Author [facility] Organization [facility] Address Unknown Phone Unavailable Care Team Providers Care Torpedo Man Name Role Phone Rosalba Kelly Unavailable PROBLEMS Type Condition ICD9-CM Code ZZM29-AL Code Onset Dates Condition S tatus W/U Status Risk SNOMED Code Notes Problem Irritable bowel syndrome with diarrhea K58.0 A ctive confirmed 184720828 Problem Lumbago with sciatica, right side M54.41 Active confirmed 833716751 Problem Stress incontinence N39.3 Active confirmed 99602934 Problem Cervical post-laminectomy syndrome M96.1 Activ e confirmed 650133668 Problem 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 Active confirmed 574441999 Problem Migraine without aura and with status migrainosu s, not intractable G43.001 Active confirmed 076814996 Problem Spondylosis of cervicothorac ic region without myelopathy or radiculopathy M47.813 Active confirmed 70939773 Problem Comedonal acne L70.0 Active confirmed 31655 4006 Problem Asthma, exercise induced J45.990 Active confirmed 42157167 Problem LOU (obstructive sleep apnea) G47.33 Active confirm ed 19100241 Problem Bilateral carpal tunnel syndrome G56.03 Active conf irmed 11326849 Problem Bilateral occipital neuralgia M54.81 Active confirm ed 22290246 Problem Decreased hearing of both ears H91.93 Active confir med 335621985 Problem 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 Active confirmed 07860253 Problem Memory problem R41.3 Active confirmed 89320 7006 Problem Pain in left finger(s) M79.645 Active confirmed 02141760411138796 Problem Chronic migraine G43.709 Active confirmed 42 9221694 Problem Chronic diarrhea K52.9 Active confirmed 236 369509 Problem Seasonal 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, unspecified trigger J3 0.2 Active confirmed 738619564 Problem Genital herpes A60.00 Active confirmed 71618 006 Problem Pain in right finger(s) M79.644 Active confirmed 449378595381395 Problem Postmenopausal atrophic vaginitis N95.2 Active con firmed 73807318 Problem Fibromyalgia M79.7 Active confirmed 7119070 05 Problem Other chronic pain G89.29 Active confirmed 8 0516963 Problem Perioral dermatitis L71.0 Active confirmed 785661795 Problem Chronic GERD K21.9 Active confirmed 2165731 09 Problem Seborrheic dermatitis L21.9 Active confirmed 75624158 Problem Mixed hyperlipidemia E78.2 Active confirmed 090888131 Problem Sleep disturbance G47.9 Active confirmed 53 958505 Problem Cervical disc disorder with radiculopath y, unspecified cervical region M50.10 Active confirmed 742100411 Problem Myalgia, other site M79.18 Active confirmed 93514235 Problem Hepatic steatosis K76.0 Active confirmed 19 5878934 Problem Hot flashes due to surgical menopause E89.41 Ac tive confirmed 043388197 Problem Memory difficulties R41.3 Active confirmed 882674720 Problem Dependent edema R60.9 Active confirmed 2484 20655 Problem Fatigue, unspecified type R53.83 Active confirmed 71725310 Problem Depression, unspecified depression type F32.9 Active confirmed 75967030 Problem Urinary frequency R35.0 Active confirmed 16 8202380 ALLERGIES Allergen (clinical drug ingredient) Drug/Non Drug Allergy do cumented on EMR Reaction Allergy Type Onset Date Status sea crab Anaphylaxis Non Drug Allergy Active vancomycin Vancomycin HCl(NDC Code:[address]-80) hives/layla athing problems Drug Allergy Active Doxycycline Calcium hives/breathing problems Drug Allergy Active Horse hair Unknown Non Drug Allergy Active topiramate Topamax(NDC Code:[address]-04) headache Drug Allergy Active Latex latex rash Non Drug Allergy Active ENCOUNTERS from 1960 to 2021-06-03 Encounter Location Date Provider Diagnosis [facility] [address] [phone] [place] [address] May, Rosalba Kelly Chest pain at rest R 07.9 and Hepatic steatosis K76.0 IMMUNIZATIONS Vaccine Route Administration Date Status COVID-19 [...] Education Language: Question Answer Notes Languages spoken: Malay other-Japanese is her first language Anglican: Question Answer Notes Anglican 08 Gnosticism Domestic Violence: Question Answer Notes Status: Single [...] FOR REFERRAL No Information VITAL SIGNS Weight 176.2 lbs May, Weight-kg 79.92 kg May, Height 60 in May, BMI 34.41 kg/m2 May, Heart Rate 89 /min May, Respiratory Rate 18 /min May, Temperature 97.4 degrees Fahrenheit May, Oximetry 96 May, Blood pressure systolic 116 mm Hg May, Blood pressure diastolic 70 mm Hg May, MEDICATIONS Medication SIG (Take, [...] 30 days 22 S , 2020 Active [place] 3 1000 MG 1 capsule Orally Once [...] Information RESULTS No Results REASON FOR VISIT ER follow up visit/chest pain MEDICAL (GENERAL) HISTORY Type Description Date [...] and fusion (ACDF) by Dr. Bill Hernandez, [facility] 06/04/15 Surgical History left CTS release 09/13/17 Surgical History TVT procedure Dr Cody 04/2018 Surgical History left hand carpal tunnel release 2017 Hospitalization History ACDF surgery, [facility] 92/15-06/07/15 Hospitalization History C-Diff 08/14/17-08/18/17 Goals Section No Information Health Concerns No Information MEDICAL EQUIPMENT No Information MENTAL STATUS No Information FUNCTIONAL STATUS No Information ASSESSMENTS Encounter Date Diagnosis Assessment Notes Treatment Notes Treatm ent Clinical Notes May, Chest pain at rest (ICD-10 - R07.9) Likely due to costochondritis vs unstable angina. Urgent cardiology referral placed on 05/30/2021 and referral was faxed. Patient likely requires a stress test. Acetaminophen sent PRN for costochondritis pain as patient had prior reaction of upset stomach to NSAIDs; MDD of 3000mg discussed. Advised the patient that if nausea, chest pain, palpitation, or dyspnea happens again, she should to go to the ER. Patient verbalized agreement. May, Hepatic steatosis (ICD-10 - K76.0) Found on CTA. Liver profile mildly abnormal; likelly associated with elevated BMI. Will discuss with patient further with work-ups next visit PLAN OF TREATMENT Medication Medication Name Sig Start Date Stop Date Clobetasol Propionate 0.05 % 1 application to scalp Once a d ay for 30 days May, Acetaminophen ER 650 MG 1 tablets as needed Orally every 4 h rs for 21 day(s) May, Cefdinir 300 MG one tab Orally once a day for 30 days May, Treatment Notes Assessment Notes Clinical Notes Chest pain at rest Likely due to costoc hondritis vs unstable angina. Urgent cardiology referral placed on 05/30/2021 and referral was faxed. Patient likely requires a stress test. Acetaminophen sent PRN for costochondritis pain as patient had prior reaction of upset stomach to NSAIDs; MDD of 3000mg discussed. Advised the patient that if nausea, chest pain, palpitation, or dyspnea happens again, she should to go to the ER. Patient verbalized agreement. Hepatic steatosis Found on CTA. Liver profile mildly abnormal; likelly associated with elevated BMI. Will discuss with patient further with work-ups next visit Next Appt Details 3-4 weeks Reason: Provider Name:Judi GALVEZ, 2021-06-24 01:00:00 PM, [address] [facility] [phone], [place], [address], Provider Name:Lucila Bowles, 2021-06-24 02:00:00 PM, [facility], , [place], [address], Provider Name:Rosalba Kelly, 2021-06-29 11 :30:00 AM, [facility], , [place], [place], [facility], Provider Name:Seble Mayberry, 09:30:00 AM, [address] [facility], , [place], [place], [facility], Insurance Providers Payer Name Payer Address Payer Phone Insured Name Patient Relati onship to Insured Coverage Start Date Coverage End Date [facility] COMMUN[facility] PLAN [facility] [address] [facility] [phone] DELIA BLOUTN self
--- OUTSIDE RECORDS SUMMARY | 2021-07-02 13:17 | CCD ---
Author Author [facility] Organization [facility] Address Unknown Phone Unavailable Care Team Providers Care Supervisor Last Model Department Name Role Phone Lucila Bowles Unavailable PROBLEMS Type Condition ICD9-CM Code [id number] Code Onset Dates Condition S tatus W/U Status Risk SNOMED Code Notes Problem Decreased hearing of both ears H91.93 Active confir med 651113272 Problem Irritable bowel syndrome with diarrhea K58.0 A ctive confirmed 721562158 Problem Bilateral occipital neuralgia M54.81 Active confirm ed 56776003 Problem Lumbago with sciatica, right side M54.41 Active confirmed 644904299 Problem Stress incontinence N39.3 Active confirmed 29138586 Problem Cervical post-laminectomy syndrome M96.1 Activ e confirmed 621339300 Problem 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 Active confirmed 443443066 Problem Fibromyalgia M79.7 Active confirmed 1000856 05 Problem Other chronic pain G89.29 Active confirmed 8 6325419 Problem Perioral dermatitis L71.0 Active confirmed 303349451 Problem Chronic GERD K21.9 Active confirmed 2533661 09 Problem Asthma, exercise induced J45.990 Active confirmed 19857446 Problem Bilateral carpal tunnel syndrome G56.03 Active conf irmed 41497249 Problem Memory difficulties R41.3 Active confirmed 834083806 Problem Myalgia, other site M79.18 Active confirmed 69154660 Problem 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 Active confirmed 95934153 Problem Memory problem R41.3 Active confirmed 67203 7006 Problem Pain in left finger(s) M79.645 Active confirmed 14329484146194383 Problem Chronic migraine G43.709 Active confirmed 42 2875533 Problem Chronic diarrhea K52.9 Active confirmed 236 433939 Problem Seasonal 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, unspecified trigger J3 0.2 Active confirmed 285344537 Problem Genital herpes A60.00 Active confirmed 21432 006 Problem Pain in right finger(s) M79.644 Active confirmed 448309478047536 Problem Postmenopausal atrophic vaginitis N95.2 Active con firmed 20710198 Problem LOU (obstructive sleep apnea) G47.33 Active confirm ed 31216940 Problem Comedonal acne L70.0 Active confirmed 78511 4006 Problem Seborrheic dermatitis L21.9 Active confirmed 57985306 Problem Fatigue, unspecified type R53.83 Active confirmed 69025090 Problem Migraine without aura and with status migrainosu s, not intractable G43.001 Active confirmed 251490706 Problem Urinary frequency R35.0 Active confirmed 16 1025826 Problem Spondylosis of cervicothorac ic region without myelopathy or radiculopathy M47.813 Active confirmed 13703278 Problem Hot flashes due to surgical menopause E89.41 Ac tive confirmed 959395837 Problem Mixed hyperlipidemia E78.2 Active confirmed 909971922 Problem Sleep disturbance G47.9 Active confirmed 53 691543 Problem Depression, unspecified depression type F32.9 Active confirmed 04454309 Problem Dependent edema R60.9 Active confirmed 2484 33155 ALLERGIES Allergen (clinical drug ingredient) Drug/Non Drug Allergy do cumented on EMR Reaction Allergy Type Onset Date Status sea crab Anaphylaxis Non Drug Allergy Active vancomycin Vancomycin HCl(NDC Code:[address]-18) hives/layla athing problems Drug Allergy Active Doxycycline Calcium hives/breathing problems Drug Allergy Active Horse hair Unknown Non Drug Allergy Active topiramate Topamax(NDC Code:[address]-40) headache Drug Allergy Active Latex latex rash Non Drug Allergy Active ENCOUNTERS from 1960 to 2021-04-13 Encounter Location Date Provider Diagnosis [facility] [address] [facility] [phone] [place] [address] Apr, Lucila Bowles IMMUNIZATIONS Vaccine Route Administration Date Status COVID-19 [...] Education Language: Question Answer Notes Languages spoken: Macedonian other-Chinese is her first language Judaism: Question Answer Notes Judaism 08 Yazidism Domestic Violence: Question Answer Notes Status: Single [...] Daily for 90 days 08 2020 Active Azelastine HCl 0.1 % 1 [...] a day 28 A , 2020 Active [place] 3 1000 MG 1 capsule Orally Once [...] Information RESULTS No Results REASON FOR VISIT appt MEDICAL (GENERAL) HISTORY Type Description Date Medical [...] and fusion (ACDF) by Dr. Bill Hernandez, [facility] 06/04/15 Surgical History left CTS release 09/13/17 Surgical History TVT procedure Dr Cody 04/2018 Surgical History left hand carpal tunnel release 2017 Hospitalization History ACDF surgery, [facility] 925/15-06/07/15 Hospitalization History C-Diff 08/14/17-08/18/17 Goals [...] tablet Orally Daily for 90 days 08 Feb, Next Appt Details Provider Name:Johann Alejandro, 2021-06-22 09:15:00 AM, [address] [facility] [address] [facility], , [place], [address], Provider Name:Judi Alegria, 2021-06-24 01:00:00 PM, [address] [facility], , [place], [address], Provider Name:Lucila Bowles, 2021-06-24 02:00:00 PM, [address] [facility], , [place], [address], Insurance Providers Payer Name Payer Address Payer Phone Insured Name Patient Relati onship to Insured Coverage Start Date Coverage End Date [facility] [address] [facility] [address] DELIA BLOUNT self
--- OUTSIDE RECORDS SUMMARY | 2021-07-02 13:17 | CCD ---
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 Active confirmed 344390102 Problem Lumbago with sciatica, right side M54.41 Active confirmed 027826245 Problem Spondylosis of cervicothorac ic region without myelopathy or radiculopathy M47.813 Active confirmed 50446197 Problem Cervical post-laminectomy syndrome M96.1 Activ e confirmed 221708439 Problem LOU (obstructive sleep apnea) G47.33 Active confirm ed 99362106 Problem Bilateral carpal tunnel syndrome G56.03 Active conf irmed 57727223 Problem Fibromyalgia M79.7 Active confirmed 0551546 05 Problem Other chronic pain G89.29 Active confirmed 8 7736514 Problem Decreased hearing of both ears H91.93 Active confir med 326783598 Problem Asthma, exercise induced J45.990 Active confirmed 99828306 Problem Memory problem R41.3 Active confirmed 73556 7006 Problem Memory difficulties R41.3 Active confirmed 036057383 Problem Chronic diarrhea K52.9 Active confirmed 236 410016 Problem 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0 Active confirmed 19866 4006 Problem Seborrheic dermatitis L21.9 Active confirmed 17473840 Problem Mixed hyperlipidemia E78.2 Active confirmed 720951285 Problem Urinary frequency R35.0 Active confirmed 16 1013463 Problem Hot flashes due to surgical menopause E89.41 Ac tive confirmed 432140807 Problem Cervical disc disorder with radiculopath y, unspecified cervical region M50.10 Active confirmed 138355610 Problem Migraine without aura and with status migrainosu s, not intractable G43.001 Active confirmed 425354548 Problem Myalgia, other site M79.18 Active confirmed 02386612 Problem Depression, unspecified depression type F32.9 Active confirmed 72909887 Problem Sleep disturbance G47.9 Active confirmed 53 189094 Problem Dependent edema R60.9 Active confirmed 2484 95878 Problem Fatigue, unspecified type R53.83 Active confirmed 43718249 ALLERGIES Allergen (clinical drug ingredient) Drug/Non Drug Allergy do cumented on EMR Reaction Allergy Type Onset Date Status sea crab Anaphylaxis Non Drug Allergy Active vancomycin Vancomycin HCl(NDC Code:[address]-28) hives/layla athing problems Drug Allergy Active Doxycycline Calcium hives/breathing problems Drug Allergy Active Horse hair Unknown Non Drug Allergy Active topiramate Topamax(NDC Code:[address]-42) headache Drug Allergy Active Latex latex rash Non Drug Allergy Active ENCOUNTERS from 1960 to 2021-05-27 Encounter Location Date Provider Diagnosis [facility] [address] [facility] [address] [phone] [place] [address] 07 May, 2021 Rosalba Kelly Memory problem R41.3 IMMUNIZATIONS Vaccine Route Administration Date Status COVID-19 [...] Language: Question Answer Notes Languages spoken: Irish other-Frisian is her first language Pentecostal: Question Answer Notes Pentecostal 08 Alevism Domestic Violence: Question Answer Notes Status: Single [...] FOR REFERRAL No Information VITAL SIGNS Weight 174.2 lbs May, Weight-kg 79.02 kg May, Height 60 in May, BMI 34.02 kg/m2 May, Heart Rate 94 /min May, Respiratory Rate 18 /min May, Temperature 97.8 degrees Fahrenheit May, Oximetry 99 May, Blood pressure systolic 118 mm Hg May, Blood pressure diastolic 64 mm Hg May, MEDICATIONS Medication SIG (Take, [...] Orally tw o times a day Active [place] 3 1000 MG 1 capsule Orally Once [...] Information RESULTS No Results REASON FOR VISIT Left ear/jaw pain follow up MEDICAL (GENERAL) HISTORY Type Description [...] and fusion (ACDF) by Dr. Bill Hernandez, [facility] 06/04/15 Surgical History left CTS release 09/13/17 Surgical History TVT procedure Dr Cody 04/2018 Surgical History left hand carpal tunnel release 2017 Hospitalization History ACDF surgery, [facility] /15-06/07/15 Hospitalization History C-Diff 08/14/17-08/18/17 Goals Section No Information Health Concerns No Information MEDICAL EQUIPMENT No Information MENTAL STATUS No Information FUNCTIONAL STATUS No Information ASSESSMENTS Encounter Date Diagnosis Assessment Notes Treatment Notes Treatm ent Clinical Notes May, Memory problem (ICD-10 - R41.3) likely associated with untreated LOU. Patient was referred to pulmonary for sleep study and she canceled due to personal reasons; she said she will call pulmonary to set up appointment for sleep study. No B12 deficiency and TSH level within nomal range. Mini-mental status exam was 27. Order MRI head to rule out stroke vs intracarnial lesions vs other intra-cranial pathologies May, Other Patient reporte d resolution of her ear and jaw pain. Advised the patient to contact the clinic or seek immediate medical care if her symptoms return, or if she has any fever or chills; patient verbalized agreement PLAN OF TREATMENT Medication Medication Name Sig [...] Jun, Treatment Notes Assessment Notes Clinical Notes Memory problem likely associated wi th untreated LOU. Patient was referred to pulmonary for sleep study and she canceled due to personal reasons; she said she will call pulmonary to set up appointment for sleep study. No B12 deficiency and TSH level within nomal range. Mini-mental status exam was 27. Order MRI head to rule out stroke vs intracarnial lesions vs other intra-cranial pathologies Treatment Notes Test Name Order Date [facility] MRI Brain without Contrast (cpt [id number]) 2021-05-17 Next Appt Details 3 Months Reason: Provider Name:Seble Mayberry, 11:00:00 AM, [address] [facility], , [place], [address], Provider Name:Judi GALVEZ, 2021-06-24 01:00:00 PM, [address] [place] [address] , [place], [address], Provider Name:Lucila Bowles, 2021-06-24 02:00:00 PM, [address] [facility], , [place], [address], Insurance Providers Payer Name Payer Address Payer Phone Insured Name Patient Relati onship to Insured Coverage Start Date Coverage End Date [facility] [address] [place] [address] DELIA BLOUNT self 1995
--- OUTSIDE RECORDS SUMMARY | 2021-07-02 13:17 | CCD ---
Author Author [facility] Organization [facility] Address Unknown Phone Unavailable Care Team Providers Care Bottom Crane Operator Name Role Phone Seble Mayberry Unavailable PROBLEMS Type Condition ICD9-CM Code EUO57-FA Code Onset Dates Condition S tatus W/U Status Risk SNOMED Code Notes Problem Irritable bowel syndrome with diarrhea K58.0 A ctive confirmed 244644442 Problem Lumbago with sciatica, right side M54.41 Active confirmed 304479718 Problem Stress incontinence N39.3 Active confirmed 56955733 Problem Cervical post-laminectomy syndrome M96.1 Activ e confirmed 823450211 Problem 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 Active confirmed 253523628 Problem Migraine without aura and with status migrainosu s, not intractable G43.001 Active confirmed 269669215 Problem Spondylosis of cervicothorac ic region without myelopathy or radiculopathy M47.813 Active confirmed 34103110 Problem Comedonal acne L70.0 Active confirmed 25609 4006 Problem Asthma, exercise induced J45.990 Active confirmed 29483097 Problem LOU (obstructive sleep apnea) G47.33 Active confirm ed 79265828 Problem Bilateral carpal tunnel syndrome G56.03 Active conf irmed 67907637 Problem Bilateral occipital neuralgia M54.81 Active confirm ed 17358868 Problem Decreased hearing of both ears H91.93 Active confir med 144827938 Problem 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 Active confirmed 82890671 Problem Memory problem R41.3 Active confirmed 52720 7006 Problem Pain in left finger(s) M79.645 Active confirmed 42238137647922483 Problem Chronic migraine G43.709 Active confirmed 42 3752558 Problem Chronic diarrhea K52.9 Active confirmed 236 675027 Problem Seasonal 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, unspecified trigger J3 0.2 Active confirmed 596585695 Problem Genital herpes A60.00 Active confirmed 83738 006 Problem Pain in right finger(s) M79.644 Active confirmed 169975856201038 Problem Postmenopausal atrophic vaginitis N95.2 Active con firmed 90636172 Problem Fibromyalgia M79.7 Active confirmed 6261190 05 Problem Other chronic pain G89.29 Active confirmed 8 6621395 Problem Perioral dermatitis L71.0 Active confirmed 149731706 Problem Chronic GERD K21.9 Active confirmed 0661223 09 Problem Seborrheic dermatitis L21.9 Active confirmed 45625729 Problem Mixed hyperlipidemia E78.2 Active confirmed 457958506 Problem Sleep disturbance G47.9 Active confirmed 53 193113 Problem Cervical disc disorder with radiculopath y, unspecified cervical region M50.10 Active confirmed 873865036 Problem Myalgia, other site M79.18 Active confirmed 44301599 Problem Hepatic steatosis K76.0 Active confirmed 19 8392342 Problem Hot flashes due to surgical menopause E89.41 Ac tive confirmed 433458854 Problem Memory difficulties R41.3 Active confirmed 149083634 Problem Dependent edema R60.9 Active confirmed 2484 87299 Problem Fatigue, unspecified type R53.83 Active confirmed 59054248 Problem Depression, unspecified depression type F32.9 Active confirmed 64733410 Problem Urinary frequency R35.0 Active confirmed 16 7504431 ALLERGIES Allergen (clinical drug ingredient) Drug/Non Drug Allergy do cumented on EMR Reaction Allergy Type Onset Date Status sea crab Anaphylaxis Non Drug Allergy Active vancomycin Vancomycin HCl(NDC Code:[address]-21) hives/layla athing problems Drug Allergy Active Doxycycline Calcium hives/breathing problems Drug Allergy Active Horse hair Unknown Non Drug Allergy Active topiramate Topamax(NDC Code:[address]-94) headache Drug Allergy Active Latex latex rash Non Drug Allergy Active ENCOUNTERS from 1960 to 2021-06-03 Encounter Location Date Provider Diagnosis [facility] [address] [place] [address] [place] [address] May, Seble Mayberry Seborrheic dermatitis of sca lp L21.9 ; Perioral dermatitis L71.0 and Scalp pruritus L29.9 IMMUNIZATIONS Vaccine Route Administration Date Status COVID-19 [...] Education Language: Question Answer Notes Languages spoken: Guyanese other-Hebrew is her first language Moravian: Question Answer Notes Moravian 08 Pentecostalism Domestic Violence: Question Answer Notes Status: Single [...] FOR REFERRAL No Information VITAL SIGNS Weight 168.6 lbs May, Weight-kg 76.48 kg May, Height 60 in May, BMI 32.92 kg/m2 May, Blood pressure systolic 118 mm Hg May, Blood pressure diastolic 70 [...] 30 days 22 S , 2020 Active [place] 3 1000 MG 1 capsule Orally Once [...] as needed MDD2 for 30 days 03/08/21 31 Jun, 2016 Active Lasix 40 MG 1 tablet Orally [...] four time s daily for 30 days 6May, Active Triamcinolone Acetonide 55 MCG/ACT 1 spray [...] Information RESULTS No Results REASON FOR VISIT FACIAL RASH MEDICAL (GENERAL) HISTORY Type Description Date Medical [...] and fusion (ACDF) by Dr. Bill Hernandez, [facility] 06/04/15 Surgical History left CTS release 09/13/17 Surgical History TVT procedure Dr Cody 04/2018 Surgical History left hand carpal tunnel release 2017 Hospitalization History ACDF surgery, [facility] 925/15-06/07/15 Hospitalization History C-Diff 08/14/17-08/18/17 Goals Section No Information Health Concerns No Information MEDICAL EQUIPMENT No Information MENTAL STATUS No Information FUNCTIONAL STATUS No Information ASSESSMENTS Encounter Date Diagnosis Assessment Notes Treatment Notes Treatm ent Clinical Notes May, Seborrheic dermatitis of scalp (ICD-10 - L21.9) May, Perioral dermatitis (ICD-10 - L71.0) May, Scalp pruritus (ICD-10 - L29.9) PLAN OF TREATMENT Medication Medication Name Sig Start Date Stop Date Clobetasol Propionate 0.05 % 1 application to scalp Once a d ay for 30 days May, Acetaminophen ER 650 MG 1 tablets as needed Orally every 4 h rs for 21 day(s) May, Cefdinir 300 MG one tab Orally once a day for 30 days May, Next Appt Details 4 Weeks- 6 Weeks Reason:rash followup Provider Name:Judi GALVEZ, 2021-06-24 01:00:00 PM, [address] [place] [address] , [place], [address], Provider Name:Lucila Bowles, 2021-06-24 02:00:00 PM, [address] [place] [address] , [place], [address], Provider Name:Rosalba Kelly, 2021-06-29 11 :30:00 AM, [address] [facility], , [place], [address], Provider Name:Seble Mayberry, 09:30:00 AM, [address] [facility], , [place], [address], Follow Up:4 Weeks- 6 Weeksrash followup Insurance Providers Payer Name Payer Address Payer Phone Insured Name Patient Relati onship to Insured Coverage Start Date Coverage End Date [facility] [address] [facility] [address] DELIA BLOUNT self
--- OUTSIDE RECORDS SUMMARY | 2021-07-02 13:17 | CCD | Continuity of Care Document ---
Author Author Kylie MAYERS Organization Unknown Address [address], [place] [address] Phone [phone] Care Team Providers Care Television News Producer Name Role Phone Lucrecia Barr DO AUTM [phone] Alessandro Knox MD AUTM [phone] Problems Active Problems Provider Date Allergic rhinitis [...] 15 minutes prior to exercise 16gm Guero Mayesr M.D. Immunizations Description No Information Available Vital [...] Information Available Procedures Date Code Description Status 12/23/2020 72443 Office/Outpatient Established Mo d MDM 30-39 Min Completed 12/23/2020 46206 Office/Outpatient Established Lo w MDM 20-29 Min Completed 12/23/2020 03637 Bronchodilation Resp onsiveness Spirometry Pre/Post Bronchodil Adm Completed Medical Devices Description No Information Available Encounters Type Date Location Provider Dx Diagnosis Office Visit 12/23/2020 3:30p Main Office Guero Mayers M.D. J45.30 Mild persistent asthma, uncomplicated J30.1 Allergic rhinitis due to matthias tiffany J30.89 Other 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 K21.9 Gastro-esophageal reflux dis ease without esophagitis Assessments Description No Information Available Plan of Treatment No Information Available Functional Status Description No Information Available Mental Status Description No Information Available Referrals Refer to Dr Reason for Referral Status Appt Date Guero Mayers M.D. Created [address], [place] [address] [phone]
--- OUTSIDE RECORDS SUMMARY | 2021-07-02 13:20 | CCD ---
Author Author [facility] Organization [facility] Address Unknown Phone Unavailable Care Team Providers [facility] Maintainer Name Role Phone WYATT MAYERS MD Unavailable Unavailable WYATT MAYERS MD Unavailable Unavailable WYATT MAYERS MD Unavailable Unavailable WYATT MAYERS MD Unavailable Unavailable WYATT MAYERS MD Unavailable Unavailable WYATT MAYERS MD Unavailable Unavailable WYATT MAYERS MD Unavailable Unavailable WYATT MAYERS MD Unavailable Unavailable WYATT MAYERS MD Unavailable Unavailable WYATT MAYERS MD Unavailable Unavailable WYATT MAYERS MD Unavailable Unavailable WYATT MAYERS MD Unavailable Unavailable WYATT MAYERS MD Unavailable Unavailable WYATT MAYERS MD Unavailable Unavailable WYATT MAYERS MD Unavailable Unavailable WYATT MAYERS MD Unavailable Unavailable WYATT MAYERS MD Unavailable Unavailable WYATT MAYERS MD Unavailable Unavailable WYATT MAYERS MD Unavailable Unavailable CHRWYATT WILLIS MD Unavailable Unavailable CHRWYATT WILLIS MD Unavailable Unavailable CHRWYATT WILLIS MD Unavailable Unavailable CHRWYATT WILLIS MD Unavailable Unavailable CHRWYATT WILLIS MD Unavailable Unavailable CHROSTWYATT GODINEZ MD Unavailable Unavailable CHROSTWYATT GODINEZ MD Unavailable Unavailable CHROSTWYATT GODINEZ MD Unavailable Unavailable CHROSTWYATT GODINEZ MD Unavailable Unavailable CHROSTWYATT GODINEZ MD Unavailable Unavailable CHROSTWYATT GODINEZ MD Unavailable Unavailable CHROSTWYATT GODINEZ MD Unavailable Unavailable CHROSTWYATT GODINEZ MD Unavailable Unavailable CHROSTWYATT GODINEZ MD Unavailable Unavailable CHROSTWYATT GODINEZ MD Unavailable Unavailable CHROSTWYATT GODINEZ MD Unavailable Unavailable CHROSTWYATT GODINEZ MD Unavailable Unavailable CHROSTWYATT GODINEZ MD Unavailable Unavailable CHROSTWYATT GODINEZ MD Unavailable Unavailable CHROSTWYATT GODINEZ MD Unavailable Unavailable GIOVANNA, BREE JESUS FOOT DRILL OPERATOR-C Unavailable Unavailable GIOVANNA, BREE JESUS FOOT DRILL OPERATOR-C Unavailable Unavailable GIOVANNA, BREE JESUS FOOT DRILL OPERATOR-C Unavailable Unavailable GIOVANNA, BREE JESUS FOOT DRILL OPERATOR-C Unavailable Unavailable GIOVANNA, BREE JESUS FOOT DRILL OPERATOR-C Unavailable Unavailable GIOVANNA, BREE JESUS FOOT DRILL OPERATOR-C Unavailable Unavailable GIOVANNA, BREE JESUS FOOT DRILL OPERATOR-C Unavailable Unavailable GIOVANNA, BREE JESUS FOOT DRILL OPERATOR-C Unavailable Unavailable GIOVANNA, BREE JESUS FOOT DRILL OPERATOR-C Unavailable Unavailable GIOVANNA, BREE JESUS FOOT DRILL OPERATOR-C Unavailable Unavailable GIOVANNA, BREE JESUS FOOT DRILL OPERATOR-C Unavailable Unavailable GIOVANNA, BREE JESUS FOOT DRILL OPERATOR-C Unavailable Unavailable GIOVANNA, BREE JESUS FOOT DRILL OPERATOR-C Unavailable Unavailable GIOVANNA, BREE JESUS FOOT DRILL OPERATOR-C Unavailable Unavailable GIOVANNA, BREE JESUS FOOT DRILL OPERATOR-C Unavailable Unavailable GIOVANNA, BREE JESUS FOOT DRILL OPERATOR-C Unavailable Unavailable GIOVANNA, BREE JESUS FOOT DRILL OPERATOR-C Unavailable Unavailable ANTECOL, Stacie ANDERSON MD Unavailable Unavailable ANTECOL, Stacie ANDERSON MD Unavailable Unavailable ANTECOL, Stacie ANDERSON MD Unavailable Unavailable ANTECOL, Stacie ANDERSON MD Unavailable Unavailable ANTECOL, Stacie ANDERSON MD Unavailable Unavailable ANTECOL, Stacie ANDERSON MD Unavailable Unavailable ANTECOL, Stacie ANDERSON MD Unavailable Unavailable ANTECOL, Stacie ANDERSON MD Unavailable Unavailable ANTECOL, Stacie ANDERSON MD Unavailable Unavailable ANTECOL, Stacie ANDERSON MD Unavailable Unavailable ANTECOL, Stacie ANDERSON MD Unavailable Unavailable ANTECOL, Stacie ANDERSON MD Unavailable Unavailable ANTECOL, Stacie ANDERSON MD Unavailable Unavailable ANTECOL, Stacie ANDERSON MD Unavailable Unavailable ANTECOL, Stacie ANDERSON MD Unavailable Unavailable ANTECOL, Stacie ANDERSON MD Unavailable Unavailable ANTECOL, Stacie ANDERSON MD Unavailable Unavailable ANTECOL, Stacie ANDERSON MD Unavailable Unavailable ANTECOL, Stacie ANDERSON MD Unavailable Unavailable ANTECOL, Stacie ANDERSON MD Unavailable Unavailable ANTECOL, Stacie ANDERSON MD Unavailable Unavailable ANTECOL, Stacie ANDERSON MD Unavailable Unavailable ANTECOL, Stacie ANDERSON MD Unavailable Unavailable ANTECOL, Stacie ANDERSON MD Unavailable Unavailable ANTECOL, Stacie ANDERSON MD Unavailable Unavailable ANTECOL, Stacie ANDERSON MD Unavailable Unavailable ANTECOL, Stacie ANDERSON MD Unavailable Unavailable ANTECOL, Stacie ANDERSON MD Unavailable Unavailable ANTECOL, Stacie ANDERSON MD Unavailable Unavailable ANTECOL, Stacie ANDERSON MD Unavailable Unavailable ANTECOL, Stacie ANDERSON MD Unavailable Unavailable ANTECOL, Stacie ANDERSON MD Unavailable Unavailable ANTECOL, Stacie ANDERSON MD Unavailable Unavailable ANTECOL, Stacie ANDERSON MD Unavailable Unavailable ANTECOL, Stacie ANDERSON MD Unavailable Unavailable ANTECOL, Stacie ANDERSON MD Unavailable Unavailable ANTECOL, Stacie ANDERSON MD Unavailable Unavailable ANTECOL, Stacie ANDERSON MD Unavailable Unavailable ANTECOL, Stacie ANDERSON MD Unavailable Unavailable ANTECOL, Stacie ANDERSON MD Unavailable Unavailable ANTECOL, Stacie ANDERSON MD Unavailable Unavailable ANTECOL, Stacie ANDERSON MD Unavailable Unavailable ANTECOL, Stacie ANDERSON MD Unavailable Unavailable ANTECOL, Stacie ANDERSON MD Unavailable Unavailable ANTECOL, Stacie ANDERSON MD Unavailable Unavailable ANTECOL, Stacie ANDERSON MD Unavailable Unavailable ANTECOL, Stacie ANDERSON MD Unavailable Unavailable ANTECOL, Stacie ANDERSON MD Unavailable Unavailable ANTECOL, Stacie ANDERSON MD Unavailable Unavailable ANTECOL, Stacie ANDERSNO MD Unavailable Unavailable ANTECOL, Stacie ANDERSON MD Unavailable Unavailable ANTECOL, Stacie ANDERSON MD Unavailable Unavailable ANTECOL, Stacie ANDERSON MD Unavailable Unavailable ANTECOL, Stacie ANDERSON MD Unavailable Unavailable Annamarie Schafer MD Unavailable Unavailable Annamarie Schafer MD Unavailable Unavailable Annamarie Schafer MD Unavailable Unavailable Annamarie Schafer MD Unavailable Unavailable Annamarie Schafer MD Unavailable Unavailable Annamarie Schafer MD Unavailable Unavailable Annamarie Schafer MD Unavailable Unavailable Annamarie Schafer MD Unavailable Unavailable Annamarie Schafer MD Unavailable Unavailable Annamarie Schafer MD Unavailable Unavailable Annamarie Schafer MD Unavailable Unavailable Annamarie Schafer MD Unavailable Unavailable Annamarie Schafer MD Unavailable Unavailable Annamarie Schafer MD Unavailable Unavailable Annamarie Schafer MD Unavailable Unavailable Annamarie Schafer MD Unavailable Unavailable Annamarie Schafer MD Unavailable Unavailable Annamarie Schafer MD Unavailable Unavailable Annamarie Schafer MD Unavailable Unavailable Annamarie Schafer MD Unavailable Unavailable Annamarie Schafer MD Unavailable Unavailable Annamarie Schafer MD Unavailable Unavailable Annamarie Schafer MD Unavailable Unavailable Annamarie Schafer MD Unavailable Unavailable Annamarie Schafer MD Unavailable Unavailable Romulo LU MD Unavailable Unavailable Romulo LU MD Unavailable Unavailable Romulo LU MD Unavailable Unavailable Romulo LU MD Unavailable Unavailable Romulo LU MD Unavailable Unavailable Romulo LU MD Unavailable Unavailable Romulo LU MD Unavailable Unavailable Romulo LU MD Unavailable Unavailable Romulo LU MD Unavailable Unavailable Romulo LU MD Unavailable Unavailable Romulo LU MD Unavailable Unavailable Romulo LU MD Unavailable Unavailable Romulo LU MD Unavailable Unavailable Romulo LU MD Unavailable Unavailable Romulo LU MD Unavailable Unavailable Romulo LU MD Unavailable Unavailable Romulo LU MD Unavailable Unavailable Romulo LU MD Unavailable Unavailable Romulo LU MD Unavailable Unavailable Romulo LU MD Unavailable Unavailable Romulo LU MD Unavailable Unavailable Romulo LU MD Unavailable Unavailable Romulo LU MD Unavailable Unavailable Romulo LU MD Unavailable Unavailable Romulo LU MD Unavailable Unavailable Romulo LU MD Unavailable Unavailable Romulo LU MD Unavailable Unavailable Romulo LU MD Unavailable Unavailable Romulo LU MD Unavailable Unavailable Romulo LU MD Unavailable Unavailable Romulo LU MD Unavailable Unavailable Romulo LU MD Unavailable Unavailable Romulo LU MD Unavailable Unavailable Re-disclosure Warning The records that you are about to access may contain information from federally-assisted alcohol or drug abuse programs. If such information is present, then the following federally mandated warning applies: This information has been disclosed to you from records protected by federal confidentiality rules (42 CFR part 2). The federal rules prohibit you from making any further disclosure of this information unless further disclosure is expressly permitted by the written consent of the person to whom it pertains or as otherwise permitted by 42 CFR part 2. A general authorization for the release of medical or other information is NOT sufficient for this purpose. The Federal rules restrict any use of the information to criminally investigate or prosecute any alcohol or drug abuse patient.The records that you are about to access may contain highly sensitive health information, the redisclosure of which is protected by Article 27-F of the [facility] Public Health law. If you continue you may have access to information: Regarding HIV / AIDS; Provided by facilities licensed or operated by the [facility] Office of Mental Health; or Provided by the [facility] Office for People With Developmental Disabilities. If such information is present, then the following [facility] mandated warning applies: This information has been disclosed to you from confidential records which are protected by state law. State law prohibits you from making any further disclosure of this information without the specific written consent of the person to whom it pertains, or as otherwise permitted by law. Any unauthorized further disclosure in violation of state law may result in a fine or residential sentence or both. A general authorization for the release of medical or other information is NOT sufficient authorization for further disc losure. Allergies and Adverse Reactions Type Description Substance Reaction Status Data Source(s ) Drug Adverse Reaction Drug Adverse Reaction Codeine Sulfate MEDENT ([facility]) sob, rash Family History Family Member Name Family Member Gender Family Member Status Date o f Status Description Data Source(s) Unknown Unknown Problem [facility] ([facility]) Unknown Male Problem MED[facility] ([facility]) Unknown Unknown Problem [facility] Encounters Encounter Providers Location Date Indications Data Source(s ) Outpatient Attender: Ellie Schafer MD 1 12:59:32 PM EDT - 06/30/2021 03:05:37 PM EDT [facility] ([facility]) Outpatient [address] [facility], [facility] [address] 06/29/2021 12:00:00 AM EDT eCW1 ([facility]) [place] [address] [facility] [address] 06/29/2021 12:00:00 AM EDT eCW1 ([facility] [place] [address] [facility] [address] 06/20/2021 12:00:00 AM EDT eCW1 ([facility]) Unknown [address] [facility] [address] 06/17/2021 12:00:00 AM EDT eCW1 ([facility]) Outpatient Attender: JESUS Parsons/Robbin/Jose Manuel/Emiliano chang 06/15/2021 08:45:00 AM EDT MED[facility] ([facility]) Outpatient Attender: WYATT MAYERS MD Main Office 06/13/2021 03:15:00 PM EDT [facility] ([facility] [place] [address] [facility] [address] 06/08/2021 12:00:00 AM EDT eCW1 ([facility]) [place] [address] [facility] [address] 06/01/2021 12:00:00 AM EDT eCW1 ([facility]) [place]patient [address] [facility] [address] 06/01/2021 12:00:00 AM EDT eCW1 ([facility]) Unknown [address] [facility] [address] 06/01/2021 12:00:00 AM EDT eCW1 ([facility]) [place] [address] [facility] [address] 05/29/2021 12:00:00 AM EDT eCW1 ([facility]) [place] [address] [facility] [address] 05/26/2021 12:00:00 AM EDT eCW1 ([facility]) Outpatient [address] [facility] [address] 05/26/2021 12:00:00 AM EDT eCW1 ([facility]) Outpatient [address] [facility] [address] 05/17/2021 12:00:00 AM EDT eCW1 ([facility]) [place] [address] [facility] [address] 04/13/2021 12:00:00 AM EDT eCW1 ([facility]) Unknown [address] [facility] [address] 03/28/2021 12:00:00 AM EDT eCW1 ([facility]) Unknown [address] [facility] [address] 03/24/2021 12:00:00 AM EDT eCW1 ([facility]) Outpatient [address] [facility] [address] 03/23/2021 12:00:00 AM EDT eCW1 ([facility]) [place] [address] [facility] [address] 03/22/2021 12:00:00 AM EDT eCW1 ([facility]) Unknown [address] [facility] [address] 03/22/2021 12:00:00 AM EDT eCW1 ([facility]) Unknown [address] [facility] [address] 03/18/2021 12:00:00 AM EDT eCW1 ([facility]) Unknown [address] [facility] [address] 03/16/2021 12:00:00 AM EDT eCW1 ([facility]) Outpatient [address] [facility] [address] 03/10/2021 12:00:00 AM EDT eCW1 ([facility]) ([facility]) W/C Procedure [address] [place] [address] 03/09/2021 12:00:00 AM EDT eCW1 ([facility]) [place] [address] [facility] [address] 03/03/2021 12:00:00 AM EDT eCW1 ([facility]) Unknown [address] [facility] [address] 03/03/2021 12:00:00 AM EDT eCW1 ([facility]) Unknown [address] [facility] [address] 02/22/2021 12:00:00 AM EDT eCW1 ([facility]) Unknown [address] [facility] [address] 02/21/2021 12:00:00 AM EDT eCW1 ([facility]) Outpatient Attender: BELINDA Parsons/Robbin/Geo abdalla/Brodie 02/17/2021 11:40:00 AM EDT MED[facility] ([facility] ) Outpatient Attender: JESUS Parsons/Robbin/Jose Manuel/Emiliano chang 02/15/2021 12:45:00 PM EDT MED[facility] ([facility] Outpatient [address] [facility] [address] 02/15/2021 12:00:00 AM EDT eCW1 ([facility]) Unknown [address] [facility] [address] 02/11/2021 12:00:00 AM EDT eCW1 ([facility]) Outpatient [address] [facility] [address] 02/09/2021 12:00:00 AM EDT eCW1 ([facility]) [place] [address] [facility] [address] 02/08/2021 12:00:00 AM EDT eCW1 ([facility]) Outpatient [address] [facility] [address] 02/04/2021 12:00:00 AM EDT eCW1 ([facility]) Outpatient Attender: JUSTIN DALTON MD Main Office 02/02/2021 09:00:00 AM EDT MED[facility] ([facility]) Unknown [address] [facility] [address] 01/31/2021 12:00:00 AM EDT eCW1 ([facility]) Unknown [address] [facility] [address] 01/20/2021 12:00:00 AM EDT eCW1 ([facility]) Outpatient [address] [facility] [address] 01/18/2021 12:00:00 AM EDT eCW1 ([facility]) Unknown [address] [facility] [address] 01/16/2021 12:00:00 AM EDT eCW1 ([facility]) Unknown [address] [facility] [address] 01/11/2021 12:00:00 AM EDT eCW1 ([facility]) Outpatient [address] [facility] [address] 01/06/2021 12:00:00 AM EDT eCW1 ([facility]) Outpatient [address] [facility] [address] 01/06/2021 12:00:00 AM EDT eCW1 ([facility]) [place] [address] [facility] [address] 01/06/2021 12:00:00 AM EDT eCW1 ([facility]) Outpatient [address] [facility] [address] 01/05/2021 12:00:00 AM EDT eCW1 ([facility]) Unknown [address] [facility] [address] 01/04/2021 12:00:00 AM EDT eCW1 ([facility]) Unknown [address] [facility] [address] 01/04/2021 12:00:00 AM EDT eCW1 ([facility]) [place] [address] [facility] [address] 01/04/2021 12:00:00 AM EDT eCW1 ([facility]) [place] [address] [facility] [address] 01/03/2021 12:00:00 AM EDT eCW1 ([facility]) Outpatient [address] [facility] [address] 12/29/2020 12:00:00 AM EDT eCW1 ([facility]) Unknown [address] [facility] [address] 12/26/2020 12:00:00 AM EDT eCW1 ([facility]) Outpatient Attender: WYATT MAYERS MD Main Office 12/23/2020 03:30:00 PM EDT MED[facility] ([facility] Unknown [address] [facility] [address] 12/23/2020 12:00:00 AM EDT eCW1 ([facility]) Unknown [address] [facility] [address] 12/22/2020 12:00:00 AM EDT eCW1 ([facility]) Unknown [address] [facility] [address] 12/21/2020 12:00:00 AM EDT eCW1 ([facility]) Outpatient [address] [facility] [address] 12/20/2020 12:00:00 AM EDT eCW1 ([facility]) Unknown [address] [facility] [address] 12/16/2020 12:00:00 AM EDT eCW1 ([facility]) Unknown [address] [facility] [address] 12/14/2020 12:00:00 AM EDT eCW1 ([facility]) Unknown [address] [facility] [address] 12/06/2020 12:00:00 AM EDT eCW1 ([facility]) Outpatient [address] [facility] [address] 12/02/2020 12:00:00 AM EDT eCW1 ([facility]) Unknown [address] [facility] [address] 12/01/2020 12:00:00 AM EDT eCW1 ([facility]) Outpatient [address] [facility] [address] 12/01/2020 12:00:00 AM EDT eCW1 ([facility]) Unknown [address] [facility] [address] 11/26/2020 12:00:00 AM EDT eCW1 ([facility]) Unknown [address] [facility] [address] 11/26/2020 12:00:00 AM EDT eCW1 ([facility]) Outpatient [address] [facility] [address] 11/25/2020 12:00:00 AM EDT eCW1 ([facility]) Unknown [address] [facility] [address] 11/25/2020 12:00:00 AM EDT eCW1 ([facility]) Unknown [address] [facility] [address] 11/24/2020 12:00:00 AM EDT eCW1 ([facility]) Outpatient [address] [facility] [address] 11/03/2020 12:00:00 AM EST eCW1 ([facility]) (PN PROC) W/C Procedure [address] [place] [address] 11/03/2020 12:00:00 AM EST eCW1 ([facility]) [place] [address] [facility] [address] 11/03/2020 12:00:00 AM EST eCW1 ([facility]) Unknown [address] [facility] [address] 11/02/2020 12:00:00 AM EST eCW1 ([facility]) Unknown [address] [facility] [address] 10/29/2020 12:00:00 AM EST eCW1 ([facility]) Unknown [address] [facility] [address] 10/14/2020 12:00:00 AM EST eCW1 ([facility]) Unknown [address] [facility] [address] 09/13/2020 12:00:00 AM EST eCW1 ([facility]) Unknown [address] [facility] [address] 08/31/2020 12:00:00 AM EST eCW1 ([facility]) Outpatient [address] [facility] [address] 08/30/2020 12:00:00 AM EST eCW1 ([facility]) Outpatient [address] [facility] [address] 08/18/2020 12:00:00 AM EST eCW1 ([facility]) Outpatient [address] [facility] [address] 07/29/2020 12:00:00 AM EST eCW1 ([facility]) Unknown [address] [facility] [address] 07/29/2020 12:00:00 AM EST eCW1 ([facility]) Unknown [address] [facility] [address] 07/29/2020 12:00:00 AM EST eCW1 ([facility]) Unknown [address] [facility] [address] 07/29/2020 12:00:00 AM EST eCW1 ([facility]) Unknown [address] [facility] [address] 07/13/2020 12:00:00 AM EST eCW1 ([facility]) Unknown [address] [facility] [address] 07/13/2020 12:00:00 AM EST eCW1 ([facility]) Outpatient [address] [facility] [address] 07/09/2020 12:00:00 AM EDT eCW1 ([facility]) Outpatient Attender: WYATT MAYERS MD Main Office 06/24/2020 02:30:00 PM EDT MED[facility] ([facility] Outpatient [address] [facility] [address] 06/23/2020 12:00:00 AM EDT eCW1 ([facility]) Unknown [address] [facility] [address] 06/22/2020 12:00:00 AM EDT eCW1 ([facility]) Unknown [address] [facility] [address] 06/18/2020 12:00:00 AM EDT eCW1 ([facility]) Outpatient [address] [facility] [address] 06/18/2020 12:00:00 AM EDT eCW1 ([facility]) Unknown [address] [facility] [address] 06/14/2020 12:00:00 AM EDT eCW1 ([facility]) Immunizations Vaccine Date Status Description Data Source(s) COVID-19 VACCINE Moderna 12/22/2020 12:00:00 AM EDT completed [facility] Vaccine Series Complete: YESThis Data wa s Submitted to [facility]. COVID-19 VACCINE, MRNA-1273, LNP-S (MODERNA)/PF 12/22/2020 1 2:00:00 AM EDT completed [facility] COVID-19 dose #1 given elsewhere Unspecified 11/19/2020 01:3 4:00 PM EST completed eCW1 ([facility]) COVID-19 dose #1 given elsewhere Unspecified 11/19/2020 01:3 4:00 PM EST completed eCW1 ([facility]) COVID-19 dose #1 given elsewhere Unspecified 11/19/2020 01:3 4:00 PM EST completed eCW1 ([facility]) COVID-19 dose #1 given elsewhere Unspecified 11/19/2020 01:3 4:00 PM EST completed eCW1 ([facility]) COVID-19 dose #1 given elsewhere Unspecified 11/19/2020 01:3 4:00 PM EST completed eCW1 ([facility]) COVID-19 dose #1 given elsewhere Unspecified 11/19/2020 01:3 4:00 PM EST completed eCW1 ([facility]) COVID-19 dose #1 given elsewhere Unspecified 11/19/2020 01:3 4:00 PM EST completed eCW1 ([facility]) COVID-19 dose #1 given elsewhere Unspecified 11/19/2020 01:3 4:00 PM EST completed eCW1 ([facility]) COVID-19 dose #1 given elsewhere Unspecified 11/19/2020 01:3 4:00 PM EST completed eCW1 ([facility]) COVID-19 dose #1 given elsewhere Unspecified 11/19/2020 01:3 4:00 PM EST completed eCW1 ([facility]) COVID-19 dose #1 given elsewhere Unspecified 11/19/2020 01:3 4:00 PM EST completed eCW1 ([facility]) COVID-19 dose #1 given elsewhere Unspecified 11/19/2020 01:3 4:00 PM EST completed eCW1 ([facility]) COVID-19 dose #1 given elsewhere Unspecified 11/19/2020 01:3 4:00 PM EST completed eCW1 ([facility]) COVID-19 dose #1 given elsewhere Unspecified 11/19/2020 01:3 4:00 PM EST completed eCW1 ([facility]) COVID-19 dose #1 given elsewhere Unspecified 11/19/2020 01:3 4:00 PM EST completed eCW1 ([facility]) COVID-19 dose #1 given elsewhere Unspecified 11/19/2020 01:3 4:00 PM EST completed eCW1 ([facility]) COVID-19 dose #1 given elsewhere Unspecified 11/19/2020 01:3 4:00 PM EST completed eCW1 ([facility]) COVID-19 dose #1 given elsewhere Unspecified 11/19/2020 01:3 4:00 PM EST completed eCW1 ([facility]) COVID-19 dose #1 given elsewhere Unspecified 11/19/2020 01:3 4:00 PM EST completed eCW1 ([facility]) COVID-19 dose #1 given elsewhere Unspecified 11/19/2020 01:3 4:00 PM EST completed eCW1 ([facility]) COVID-19 dose #1 given elsewhere Unspecified 11/19/2020 01:3 4:00 PM EST completed eCW1 ([facility]) COVID-19 dose #1 given elsewhere Unspecified 11/19/2020 01:3 4:00 PM EST completed eCW1 ([facility]) COVID-19 dose #1 given elsewhere Unspecified 11/19/2020 01:3 4:00 PM EST completed eCW1 ([facility]) COVID-19 dose #1 given elsewhere Unspecified 11/19/2020 01:3 4:00 PM EST completed eCW1 ([facility]) COVID-19 dose #1 given elsewhere Unspecified 11/19/2020 01:3 4:00 PM EST completed eCW1 ([facility]) COVID-19 dose #1 given elsewhere Unspecified 11/19/2020 01:3 4:00 PM EST completed eCW1 ([facility]) COVID-19 dose #1 given elsewhere Unspecified 11/19/2020 01:3 4:00 PM EST completed eCW1 ([facility]) COVID-19 dose #1 given elsewhere Unspecified 11/19/2020 01:3 4:00 PM EST completed eCW1 ([facility]) COVID-19 dose #1 given elsewhere Unspecified 11/19/2020 01:3 4:00 PM EST completed eCW1 ([facility]) COVID-19 dose #1 given elsewhere Unspecified 11/19/2020 01:3 4:00 PM EST completed eCW1 ([facility]) COVID-19 dose #1 given elsewhere Unspecified 11/19/2020 01:3 4:00 PM EST completed eCW1 ([facility]) COVID-19 dose #1 given elsewhere Unspecified 11/19/2020 01:3 4:00 PM EST completed eCW1 ([facility]) COVID-19 dose #1 given elsewhere Unspecified 11/19/2020 01:3 4:00 PM EST completed eCW1 ([facility]) COVID-19 dose #1 given elsewhere Unspecified 11/19/2020 01:3 4:00 PM EST completed eCW1 ([facility]) COVID-19 dose #1 given elsewhere Unspecified 11/19/2020 01:3 4:00 PM EST completed eCW1 ([facility]) COVID-19 dose #1 given elsewhere Unspecified 11/19/2020 01:3 4:00 PM EST completed eCW1 ([facility]) COVID-19 dose #1 given elsewhere Unspecified 11/19/2020 01:3 4:00 PM EST completed eCW1 ([facility]) COVID-19 dose #1 given elsewhere Unspecified 11/19/2020 01:3 4:00 PM EST completed eCW1 ([facility]) COVID-19 dose #1 given elsewhere Unspecified 11/19/2020 01:3 4:00 PM EST completed eCW1 ([facility]) COVID-19 dose #1 given elsewhere Unspecified 11/19/2020 01:3 4:00 PM EST completed eCW1 ([facility]) COVID-19 dose #1 given elsewhere Unspecified 11/19/2020 01:3 4:00 PM EST completed eCW1 ([facility]) COVID-19 dose #1 given elsewhere Unspecified 11/19/2020 01:3 4:00 PM EST completed eCW1 ([facility]) COVID-19 dose #1 given elsewhere Unspecified 11/19/2020 01:3 4:00 PM EST completed eCW1 ([facility]) COVID-19 dose #1 given elsewhere Unspecified 11/19/2020 01:3 4:00 PM EST completed eCW1 ([facility]) COVID-19 dose #1 given elsewhere Unspecified 11/19/2020 01:3 4:00 PM EST completed eCW1 ([facility]) COVID-19 dose #1 given elsewhere Unspecified 11/19/2020 01:3 4:00 PM EST completed eCW1 ([facility]) COVID-19 dose #1 given elsewhere Unspecified 11/19/2020 01:3 4:00 PM EST completed eCW1 ([facility]) COVID-19 dose #1 given elsewhere Unspecified 11/19/2020 01:3 4:00 PM EST completed eCW1 ([facility]) COVID-19 dose #1 given elsewhere Unspecified 11/19/2020 01:3 4:00 PM EST completed eCW1 ([facility]) COVID-19 dose #1 given elsewhere Unspecified 11/19/2020 01:3 4:00 PM EST completed eCW1 ([facility]) COVID-19 dose #1 given elsewhere Unspecified 11/19/2020 01:3 4:00 PM EST completed eCW1 ([facility]) COVID-19 dose #1 given elsewhere Unspecified 11/19/2020 01:3 4:00 PM EST completed eCW1 ([facility]) COVID-19 dose #1 given elsewhere Unspecified 11/19/2020 01:3 4:00 PM EST completed eCW1 ([facility]) COVID-19 dose #1 given elsewhere Unspecified 11/19/2020 01:3 4:00 PM EST completed eCW1 ([facility]) COVID-19 dose #1 given elsewhere Unspecified 11/19/2020 01:3 4:00 PM EST completed eCW1 ([facility]) COVID-19 dose #1 given elsewhere Unspecified 11/19/2020 01:3 4:00 PM EST completed eCW1 ([facility]) COVID-19 dose #1 given elsewhere Unspecified 11/19/2020 01:3 4:00 PM EST completed eCW1 ([facility]) COVID-19 dose #1 given elsewhere Unspecified 11/19/2020 01:3 4:00 PM EST completed eCW1 ([facility]) COVID-19 dose #1 given elsewhere Unspecified 11/19/2020 01:3 4:00 PM EST completed eCW1 ([facility]) COVID-19 dose #1 given elsewhere Unspecified 11/19/2020 01:3 4:00 PM EST completed eCW1 ([facility]) COVID-19 dose #1 given elsewhere Unspecified 11/19/2020 01:3 4:00 PM EST completed eCW1 ([facility]) COVID-19 dose #1 given elsewhere Unspecified 11/19/2020 01:3 4:00 PM EST completed eCW1 ([facility]) COVID-19 VACCINE Moderna 11/19/2020 12:00:00 AM EST completed [facility] Vaccine Series Complete: NOThis Data was Submitted to [facility]. COVID-19 VACCINE, [id number], LNP-S (MODERNA)/PF 11/19/2020 1 2:00:00 AM EST completed [facility] INFLUENZA VIRUS VACCINE QUADRIVAL [id number](6 MOS AND UP)/PF 10/14/2020 12:00:00 AM EST completed [facility] Medications Medication Brand Name Start Date Product Form Dose Route Admi nistrative Instructions Pharmacy Instructions Status Indications Reaction Description Data Source(s) tramadol hydrochloride 50 MG Oral Tablet traMADol HCl 50 MG traMADol HCl 50 MG 06/30/2021 12:00:00 AM EDT active traMADol HCl 50 MG eCW1 ([facility]) atorvastatin 80 MG Oral Tablet Atorvastatin Calcium 80 MG Atorvastatin Calcium 80 MG 06/30/2021 12:00:00 AM EDT 1.0 {tablet} activ e Atorvastatin Calcium 80 MG eCW1 ([facility]) tramadol hydrochloride 50 MG Oral Tablet traMADol HCl 50 MG traMADol HCl 50 MG 06/30/2021 12:00:00 AM EDT active traMADol HCl 50 MG eCW1 ([facility]) pregabalin 150 MG Oral Capsule [Lyrica] Lyrica 150 MG Lyrica 150 MG 06/30/2021 12:00:00 AM EDT 1.0 {capsule} active L yrica 150 MG eCW1 ([facility]) atorvastatin 80 MG Oral Tablet Atorvastatin Calcium 80 MG Atorvastatin Calcium 80 MG 06/30/2021 12:00:00 AM EDT 1.0 {tablet} activ e Atorvastatin Calcium 80 MG eCW1 ([facility]) pregabalin 150 MG Oral Capsule [Lyrica] Lyrica 150 MG Lyrica 150 MG 06/30/2021 12:00:00 AM EDT 1.0 {capsule} active L yrica 150 MG eCW1 ([facility]) Metformin hydrochloride 850 MG Oral Tablet metFORMIN H Cl 850 MG metFORMIN HCl 850 MG 06/30/2021 12:00:00 AM EDT 1.0 {tablet_with_a_meal} active metFORMIN HCl 850 MG eCW1 ([facility]) Metformin hydrochloride 850 MG Oral Tablet metFORMIN H Cl 850 MG metFORMIN HCl 850 MG 06/30/2021 12:00:00 AM EDT 1.0 {tablet_with_a_meal} active metFORMIN HCl 850 MG eCW1 ([facility]) Hydroxyzine Pamoate 25 MG Oral Capsule hydrOXYzine Becyk oate 25 MG hydrOXYzine Pamoate 25 MG 06/29/2021 12:00:00 AM EDT 1.0 {capsule_as_needed} active hydrOXYzine Pamoate 25 MG eCW1 ([facility]) Hydroxyzine Pamoate 25 MG Oral Capsule hydrOXYzine Becky oate 25 MG hydrOXYzine Pamoate 25 MG 06/29/2021 12:00:00 AM EDT 1.0 {capsule_as_needed} active hydrOXYzine Pamoate 25 MG eCW1 ([facility]) 1 mg 06/25/2021 12:00:00 AM EDT tablet 90 TAKE ONE TABLET BY MOUTH EVERY DAY TAKE ONE TABLET BY MOUTH EVERY DAY SOLD: 06/26/2021 [facility] 0.01 % (0.1 mg/gram) 06/25/2021 12:00:00 AM EDT cream 42 APPLY 1/2 GRAM VAGINALLY TWO TIMES A WEEK APPLY 1/2 GRAM VAGINALLY TWO TIMES A WEEK SOLD: 06/26/2021 [facility] valacyclovir 1000 MG Oral Tablet [Valtrex] Valtrex 1 GM Valt marii 1 GM 06/24/2021 12:00:00 AM EDT 1.0 {tablet} active Va ltrex 1 GM eCW1 ([facility]) valacyclovir 1000 MG Oral Tablet VALACYCLOVIR HCL 06/24/2021 12: 00:00 AM EDT tablet 45 TAKE ONE TABLET BY M OUT ONCE DAILY. IF OUTBREAK OCCURS TAKE ONE TABLET BY MOUTH TWO TIMES A DAY FOR 5 DAYS THEN CONTINUE ONCE DAILY TAKE ONE TABLET BY MOUTH ONCE DAILY. IF OUTBREAK OCCURS TAKE ONE TABLET BY MOUTH TWO TIMES A DAY FOR 5 DAYS THEN CONTINUE ONCE DAILY SOLD: 06/26/2021 [facility] Lidocaine 40 MG/ML Topical Cream Lidocaine 4 % Lidocaine 4 % 06/24/2021 12:00:00 AM EDT suspended Lidocaine 4 % eCW1 ([facility]) Lidocaine 40 MG/ML Topical Cream Lidocaine 4 % Lidocaine 4 % 06/24/2021 12:00:00 AM EDT suspended Lidocaine 4 % eCW1 ([facility]) valacyclovir 1000 MG Oral Tablet [Valtrex] Valtrex 1 GM Valt marii 1 GM 06/24/2021 12:00:00 AM EDT 1.0 {tablet} active Va ltrex 1 GM eCW1 ([facility]) 4 gram 06/08/2021 12:00:00 AM EDT powder 378 USE 1 SCOOP TWO TIMES A DAY USE 1 SCOOP TWO TIMES A DAY SOLD: 06/09/2021 [facility] 60 mcg (15 mcg x 4)/0.5 mL 06/05/2021 12:00:00 AM EDT syring e 0 INJECTED PER RPH INJECTED PER RPH SOLD: 06/05/2021 [facility] 650 mg 06/02/2021 12:00:00 AM EDT tablet extended release 126 TAKE ONE TABLET BY MOUTH EVERY 4 HOURS NEEDED TAKE ONE TABLET BY MOUTH EVERY 4 HOURS NEEDED SOLD: 06/09/2021 [facility] 0.05 % 06/02/2021 12:00:00 AM EDT foam 50 APPLY TO SCALP ONCE A DAY APPLY TO SCALP ONCE A DAY SOLD: 06/04/2021 [facility] 8 HR Acetaminophen 650 MG Extended Release Oral Tablet Acetaminophen ER 650 MG Acetaminophen ER 650 MG 06/01/2021 12:00:00 AM EDT 1.0 {tablets_as_ needed} active Acetaminophen ER 650 MG e CW1 ([facility]) Clobetasol Propionate 0.5 MG/ML Topical Foam Clobetaso l Propionate 0.05 % Clobetasol Propionate 0.05 % 06/01/2021 12:00:00 AM EDT 1.0 {applicat ion} active Clobetasol Propionate 0.05 % eCW1 ([facility]) 8 HR Acetaminophen 650 MG Extended Release Oral Tablet Acetaminophen ER 650 MG Acetaminophen ER 650 MG 06/01/2021 12:00:00 AM EDT 1.0 {tablets_as_ needed} active Acetaminophen ER 650 MG e CW1 ([facility]) Clobetasol Propionate 0.5 MG/ML Topical Foam Clobetaso l Propionate 0.05 % Clobetasol Propionate 0.05 % 06/01/2021 12:00:00 AM EDT 1.0 {applicat ion} active Clobetasol Propionate 0.05 % eCW1 ([facility]) 300 mg 06/01/2021 12:00:00 AM EDT capsule 30 TAKE ONE CAPSULE BY MOUTH EVERY DAY TAKE ONE CAPSULE BY MOUTH EVERY DAY SOLD: 06/04/2021 [facility] Clobetasol Propionate 0.5 MG/ML Topical Foam Clobetaso l Propionate 0.05 % Clobetasol Propionate 0.05 % 06/01/2021 12:00:00 AM EDT 1.0 {applicat ion} active Clobetasol Propionate 0.05 % eCW1 ([facility]) 8 HR Acetaminophen 650 MG Extended Release Oral Tablet Acetaminophen ER 650 MG Acetaminophen ER 650 MG 06/01/2021 12:00:00 AM EDT 1.0 {tablets_as_ needed} active Acetaminophen ER 650 MG e CW1 ([facility]) cefdinir 300 MG Oral Capsule Cefdinir 300 MG Cefdinir 300 MG 06/01/2021 12:00:00 AM EDT active Cefdinir 300 MG eCW1 ([facility]) 8 HR Acetaminophen 650 MG Extended Release Oral Tablet Acetaminophen ER 650 MG Acetaminophen ER 650 MG 06/01/2021 12:00:00 AM EDT 1.0 {tablets_as_ needed} active Acetaminophen ER 650 MG e CW1 ([facility]) 8 HR Acetaminophen 650 MG Extended Release Oral Tablet Acetaminophen ER 650 MG Acetaminophen ER 650 MG 06/01/2021 12:00:00 AM EDT 1.0 {tablets_as_ needed} active Acetaminophen ER 650 MG e CW1 ([facility]) cefdinir 300 MG Oral Capsule Cefdinir 300 MG Cefdinir 300 MG 06/01/2021 12:00:00 AM EDT active Cefdinir 300 MG eCW1 ([facility]) cefdinir 300 MG Oral Capsule Cefdinir 300 MG Cefdinir 300 MG 06/01/2021 12:00:00 AM EDT active Cefdinir 300 MG eCW1 ([facility]) cefdinir 300 MG Oral Capsule Cefdinir 300 MG Cefdinir 300 MG 06/01/2021 12:00:00 AM EDT active Cefdinir 300 MG eCW1 ([facility]) cefdinir 300 MG Oral Capsule Cefdinir 300 MG Cefdinir 300 MG 06/01/2021 12:00:00 AM EDT active Cefdinir 300 MG eCW1 ([facility]) Clobetasol Propionate 0.5 MG/ML Topical Foam Clobetaso l Propionate 0.05 % Clobetasol Propionate 0.05 % 06/01/2021 12:00:00 AM EDT 1.0 {applicat ion} active Clobetasol Propionate 0.05 % eCW1 ([facility]) Clobetasol Propionate 0.5 MG/ML Topical Foam Clobetaso l Propionate 0.05 % Clobetasol Propionate 0.05 % 06/01/2021 12:00:00 AM EDT 1.0 {applicat ion} active Clobetasol Propionate 0.05 % eCW1 ([facility]) cefdinir 300 MG Oral Capsule Cefdinir 300 MG Cefdinir 300 MG 06/01/2021 12:00:00 AM EDT active Cefdinir 300 MG eCW1 ([facility]) Clobetasol Propionate 0.5 MG/ML Topical Foam Clobetaso l Propionate 0.05 % Clobetasol Propionate 0.05 % 06/01/2021 12:00:00 AM EDT 1.0 {applicat ion} active Clobetasol Propionate 0.05 % eCW1 ([facility]) 8 HR Acetaminophen 650 MG Extended Release Oral Tablet Acetaminophen ER 650 MG Acetaminophen ER 650 MG 06/01/2021 12:00:00 AM EDT 1.0 {tablets_as_ needed} active Acetaminophen ER 650 MG e CW1 ([facility]) 8 HR Acetaminophen 650 MG Extended Release Oral Tablet Acetaminophen ER 650 MG Acetaminophen ER 650 MG 06/01/2021 12:00:00 AM EDT 1.0 {tablets_as_ needed} active Acetaminophen ER 650 MG e CW1 ([facility]) 8 HR Acetaminophen 650 MG Extended Release Oral Tablet Acetaminophen ER 650 MG Acetaminophen ER 650 MG 06/01/2021 12:00:00 AM EDT 1.0 {tablets_as_ needed} active Acetaminophen ER 650 MG e CW1 ([facility]) Clobetasol Propionate 0.5 MG/ML Topical Foam Clobetaso l Propionate 0.05 % Clobetasol Propionate 0.05 % 06/01/2021 12:00:00 AM EDT 1.0 {applicat ion} active Clobetasol Propionate 0.05 % eCW1 ([facility]) 8 HR Acetaminophen 650 MG Extended Release Oral Tablet Acetaminophen ER 650 MG Acetaminophen ER 650 MG 06/01/2021 12:00:00 AM EDT 1.0 {tablets_as_ needed} active Acetaminophen ER 650 MG e CW1 ([facility]) cefdinir 300 MG Oral Capsule Cefdinir 300 MG Cefdinir 300 MG 06/01/2021 12:00:00 AM EDT active Cefdinir 300 MG eCW1 ([facility]) 50 mg 05/27/2021 12:00:00 AM EDT tablet 90 TAKE ONE TABLET BY MOUTH EVERY 6 HOURS NEEDED FOR PAIN MAXIMUM DAILY DOSE = 3 TAKE ONE TABLET BY MOUTH EVERY 6 HOURS NEEDED FOR PAIN MAXIMUM DAILY DOSE = 3 SOLD: 05/29/2021 [facility] 20 mg 05/27/2021 12:00:00 AM EDT capsule,delayed release (DR/EC) 30 TAKE ONE CAPSULE BY MOUTH EVERY DAY FOR PAIN TAKE ONE CAPSULE BY MOUTH EVERY DAY FOR PAIN SOLD: 05/29/2021 [facility] tramadol hydrochloride 50 MG Oral Tablet traMADol HCl 50 MG traMADol HCl 50 MG 05/26/2021 12:00:00 AM EDT active traMADol HCl 50 MG eCW1 ([facility]) pregabalin 150 MG Oral Capsule [Lyrica] Lyrica 150 MG Lyrica 150 MG 05/26/2021 12:00:00 AM EDT 1.0 {capsule} active L yrica 150 MG eCW1 ([facility]) tramadol hydrochloride 50 MG Oral Tablet traMADol HCl 50 MG traMADol HCl 50 MG 05/26/2021 12:00:00 AM EDT active traMADol HCl 50 MG eCW1 ([facility]) pregabalin 150 MG Oral Capsule [Lyrica] Lyrica 150 MG Lyrica 150 MG 05/26/2021 12:00:00 AM EDT 1.0 {capsule} suspended Lyrica 150 MG eCW1 ([facility]) tramadol hydrochloride 50 MG Oral Tablet traMADol HCl 50 MG traMADol HCl 50 MG 05/26/2021 12:00:00 AM EDT active traMADol HCl 50 MG eCW1 ([facility]) pregabalin 150 MG Oral Capsule [Lyrica] Lyrica 150 MG Lyrica 150 MG 05/26/2021 12:00:00 AM EDT 1.0 {capsule} active L yrica 150 MG eCW1 ([facility]) tramadol hydrochloride 50 MG Oral Tablet traMADol HCl 50 MG traMADol HCl 50 MG 05/26/2021 12:00:00 AM EDT active traMADol HCl 50 MG eCW1 ([facility]) tramadol hydrochloride 50 MG Oral Tablet traMADol HCl 50 MG traMADol HCl 50 MG 05/26/2021 12:00:00 AM EDT active traMADol HCl 50 MG eCW1 ([facility]) pregabalin 150 MG Oral Capsule [Lyrica] Lyrica 150 MG Lyrica 150 MG 05/26/2021 12:00:00 AM EDT 1.0 {capsule} suspended Lyrica 150 MG eCW1 ([facility]) pregabalin 150 MG Oral Capsule [Lyrica] Lyrica 150 MG Lyrica 150 MG 05/26/2021 12:00:00 AM EDT 1.0 {capsule} suspended Lyrica 150 MG eCW1 ([facility]) pregabalin 150 MG Oral Capsule [Lyrica] Lyrica 150 MG Lyrica 150 MG 05/26/2021 12:00:00 AM EDT 1.0 {capsule} active L yrica 150 MG eCW1 ([facility]) pregabalin 150 MG Oral Capsule [Lyrica] Lyrica 150 MG Lyrica 150 MG 05/26/2021 12:00:00 AM EDT 1.0 {capsule} active L yrica 150 MG eCW1 ([facility]) pregabalin 150 MG Oral Capsule [Lyrica] Lyrica 150 MG Lyrica 150 MG 05/26/2021 12:00:00 AM EDT 1.0 {capsule} suspended Lyrica 150 MG eCW1 ([facility]) pregabalin 150 MG Oral Capsule [Lyrica] Lyrica 150 MG Lyrica 150 MG 05/26/2021 12:00:00 AM EDT 1.0 {capsule} suspended Lyrica 150 MG eCW1 ([facility]) pregabalin 150 MG Oral Capsule [Lyrica] Lyrica 150 MG Lyrica 150 MG 05/26/2021 12:00:00 AM EDT 1.0 {capsule} active L yrica 150 MG eCW1 ([facility]) pregabalin 150 MG Oral Capsule [Lyrica] Lyrica 150 MG Lyrica 150 MG 05/26/2021 12:00:00 AM EDT 1.0 {capsule} active L yrica 150 MG eCW1 ([facility]) pregabalin 150 MG Oral Capsule [Lyrica] Lyrica 150 MG Lyrica 150 MG 05/26/2021 12:00:00 AM EDT 1.0 {capsule} active L yrica 150 MG eCW1 ([facility]) tramadol hydrochloride 50 MG Oral Tablet traMADol HCl 50 MG traMADol HCl 50 MG 05/26/2021 12:00:00 AM EDT active traMADol HCl 50 MG eCW1 ([facility]) tramadol hydrochloride 50 MG Oral Tablet traMADol HCl 50 MG traMADol HCl 50 MG 05/26/2021 12:00:00 AM EDT active traMADol HCl 50 MG eCW1 ([facility]) tramadol hydrochloride 50 MG Oral Tablet traMADol HCl 50 MG traMADol HCl 50 MG 05/26/2021 12:00:00 AM EDT active traMADol HCl 50 MG eCW1 ([facility]) pregabalin 150 MG Oral Capsule [Lyrica] Lyrica 150 MG Lyrica 150 MG 05/26/2021 12:00:00 AM EDT 1.0 {capsule} active L yrica 150 MG eCW1 ([facility]) Cyclobenzaprine hydrochloride 10 MG Oral Tablet CYCLOBENZAPR INE HCL 05/26/2021 12:00:00 AM EDT tablet 60 TAKE ONE TABLET BY MOUTH TWICE A DAY NEEDED FOR SPASMS AND PAIN TAKE ONE TABLET BY MOUTH TWICE A DAY NEEDED FOR SPASMS AND PAIN SOLD: 05/29/2021 [facility] pregabalin 150 MG Oral Capsule [Lyrica] Lyrica 150 MG Lyrica 150 MG 05/26/2021 12:00:00 AM EDT 1.0 {capsule} active L yrica 150 MG eCW1 ([facility]) tramadol hydrochloride 50 MG Oral Tablet traMADol HCl 50 MG traMADol HCl 50 MG 05/26/2021 12:00:00 AM EDT active traMADol HCl 50 MG eCW1 ([facility]) tramadol hydrochloride 50 MG Oral Tablet traMADol HCl 50 MG traMADol HCl 50 MG 05/26/2021 12:00:00 AM EDT active traMADol HCl 50 MG eCW1 ([facility]) pregabalin 150 MG Oral Capsule [Lyrica] Lyrica 150 MG Lyrica 150 MG 05/26/2021 12:00:00 AM EDT 1.0 {capsule} active L yrica 150 MG eCW1 ([facility]) pregabalin 150 MG Oral Capsule [Lyrica] Lyrica 150 MG Lyrica 150 MG 05/26/2021 12:00:00 AM EDT 1.0 {capsule} suspended Lyrica 150 MG eCW1 ([facility]) pregabalin 150 MG Oral Capsule [Lyrica] Lyrica 150 MG Lyrica 150 MG 05/26/2021 12:00:00 AM EDT 1.0 {capsule} active L yrica 150 MG eCW1 ([facility]) pregabalin 150 MG Oral Capsule [Lyrica] Lyrica 150 MG Lyrica 150 MG 05/26/2021 12:00:00 AM EDT 1.0 {capsule} active L yrica 150 MG eCW1 ([facility]) 5 mg 05/26/2021 12:00:00 AM EDT tablet 7 TAKE ONE TABLET BY MOUTH EVERY DAY NEEDED FOR MIGRAINE HEADACHE, MAY REPEAT IN 3 HOURS NEEDED MAXIMUM DAILY DOSE = 2 TABLET TAKE ONE TABLET BY MOUTH EVERY DAY NE EDED FOR MIGRAINE HEADACHE, MAY REPEAT IN 3 HOURS NEEDED MAXIMUM DAILY DOSE = 2 TABLET SOLD: 05/29/2021 [facility] pregabalin 150 MG Oral Capsule [Lyrica] Lyrica 150 MG Lyrica 150 MG 05/26/2021 12:00:00 AM EDT 1.0 {capsule} active L yrica 150 MG eCW1 ([facility]) tramadol hydrochloride 50 MG Oral Tablet traMADol HCl 50 MG traMADol HCl 50 MG 05/26/2021 12:00:00 AM EDT active traMADol HCl 50 MG eCW1 ([facility]) pregabalin 150 MG Oral Capsule [Lyrica] Lyrica 150 MG Lyrica 150 MG 05/26/2021 12:00:00 AM EDT 1.0 {capsule} active L yrica 150 MG eCW1 ([facility]) pregabalin 150 MG Oral Capsule [Lyrica] Lyrica 150 MG Lyrica 150 MG 05/26/2021 12:00:00 AM EDT 1.0 {capsule} suspended Lyrica 150 MG eCW1 ([facility]) 150 mg 05/26/2021 12:00:00 AM EDT capsule 120 TAKE ONE CAPSULE BY MOUTH FOUR TIMES A DAY NEEDED FOR PAIN MAXIMUM DAILY DOSE = 4 CAPSULES TAKE ONE CAPSULE BY MOUTH FOUR TIMES A DAY NEEDED FOR PAIN MAXIMUM DAILY DOSE = 4 CAPSULES SOLD: 05/29/2021 [facility] pregabalin 150 MG Oral Capsule [Lyrica] Lyrica 150 MG Lyrica 150 MG 05/26/2021 12:00:00 AM EDT 1.0 {capsule} active L yrica 150 MG eCW1 ([facility]) pregabalin 150 MG Oral Capsule [Lyrica] Lyrica 150 MG Lyrica 150 MG 05/26/2021 12:00:00 AM EDT 1.0 {capsule} suspended Lyrica 150 MG eCW1 ([facility]) pregabalin 150 MG Oral Capsule [Lyrica] Lyrica 150 MG Lyrica 150 MG 05/26/2021 12:00:00 AM EDT 1.0 {capsule} suspended Lyrica 150 MG eCW1 ([facility]) duloxetine 20 MG Delayed Release Oral Capsule DULoxeti ne HCl 20 MG DULoxetine HCl 20 MG 05/17/2021 12:00:00 AM EDT 1.0 {capsule} a ctive DULoxetine HCl 20 MG eCW1 ([facility]) duloxetine 20 MG Delayed Release Oral Capsule DULoxeti ne HCl 20 MG DULoxetine HCl 20 MG 05/17/2021 12:00:00 AM EDT 1.0 {capsule} a ctive DULoxetine HCl 20 MG eCW1 ([facility]) duloxetine 20 MG Delayed Release Oral Capsule DULoxeti ne HCl 20 MG DULoxetine HCl 20 MG 05/17/2021 12:00:00 AM EDT 1.0 {capsule} a ctive DULoxetine HCl 20 MG eCW1 ([facility]) duloxetine 20 MG Delayed Release Oral Capsule DULoxeti ne HCl 20 MG DULoxetine HCl 20 MG 05/17/2021 12:00:00 AM EDT 1.0 {capsule} a ctive DULoxetine HCl 20 MG eCW1 ([facility]) duloxetine 20 MG Delayed Release Oral Capsule DULoxeti ne HCl 20 MG DULoxetine HCl 20 MG 05/17/2021 12:00:00 AM EDT 1.0 {capsule} a ctive DULoxetine HCl 20 MG eCW1 ([facility]) duloxetine 20 MG Delayed Release Oral Capsule DULoxeti ne HCl 20 MG DULoxetine HCl 20 MG 05/17/2021 12:00:00 AM EDT 1.0 {capsule} a ctive DULoxetine HCl 20 MG eCW1 ([facility]) duloxetine 20 MG Delayed Release Oral Capsule DULoxeti ne HCl 20 MG DULoxetine HCl 20 MG 05/17/2021 12:00:00 AM EDT 1.0 {capsule} a ctive DULoxetine HCl 20 MG eCW1 ([facility]) duloxetine 20 MG Delayed Release Oral Capsule DULoxeti ne HCl 20 MG DULoxetine HCl 20 MG 05/17/2021 12:00:00 AM EDT 1.0 {capsule} a ctive DULoxetine HCl 20 MG eCW1 ([facility]) duloxetine 20 MG Delayed Release Oral Capsule DULoxeti ne HCl 20 MG DULoxetine HCl 20 MG 05/17/2021 12:00:00 AM EDT 1.0 {capsule} a ctive DULoxetine HCl 20 MG eCW1 ([facility]) duloxetine 20 MG Delayed Release Oral Capsule DULoxeti ne HCl 20 MG DULoxetine HCl 20 MG 05/17/2021 12:00:00 AM EDT 1.0 {capsule} a ctive DULoxetine HCl 20 MG eCW1 ([facility]) duloxetine 20 MG Delayed Release Oral Capsule DULoxeti ne HCl 20 MG DULoxetine HCl 20 MG 05/17/2021 12:00:00 AM EDT 1.0 {capsule} a ctive DULoxetine HCl 20 MG eCW1 ([facility]) duloxetine 20 MG Delayed Release Oral Capsule DULoxeti ne HCl 20 MG DULoxetine HCl 20 MG 05/17/2021 12:00:00 AM EDT 1.0 {capsule} a ctive DULoxetine HCl 20 MG eCW1 ([facility]) duloxetine 20 MG Delayed Release Oral Capsule DULoxeti ne HCl 20 MG DULoxetine HCl 20 MG 05/17/2021 12:00:00 AM EDT 1.0 {capsule} a ctive DULoxetine HCl 20 MG eCW1 ([facility]) Atropine Sulfate 0.025 MG / Diphenoxylat e Hydrochloride 2.5 MG Oral Tablet 2.5- 0.025 mg DIPHENOXYLATE HCL/ATROPINE 04/15/2021 12:00:00 AM EDT tablet 60 TAKE 1 TABLET BY MOUTH UP TO TWICE DAILY FOR DIARRHEA MAXIMUM DAILY DOSE = 2 TABLETS TAKE 1 TABLET BY MOUTH UP TO TWICE DAILY FOR DIARRHEA MAXIMUM DAILY DOSE = 2 TABLETS SOLD: 05/17/2021 [facility] Atropine Sulfate 0.025 MG / Diphenoxylat e Hydrochloride 2.5 MG Oral Tablet 2.5- 0.025 mg DIPHENOXYLATE HCL/ATROPINE 04/15/2021 12:00:00 AM EDT tablet 60 TAKE 1 TABLET BY MOUTH UP TO TWICE DAILY FOR DIARRHEA MAXIMUM DAILY DOSE = 2 TABLETS TAKE 1 TABLET BY MOUTH UP TO TWICE DAILY FOR DIARRHEA MAXIMUM DAILY DOSE = 2 TABLETS SOLD: 04/15/2021 [facility] 40 mg 03/27/2021 12:00:00 AM EDT tablet 90 TAKE ONE TABLET BY MOUTH EVERY DAY TAKE ONE TABLET BY MOUTH EVERY DAY SOLD: 03/27/2021 [facility] 75 mg 03/27/2021 12:00:00 AM EDT tablet 90 TAKE ONE TABLET BY MOUTH EVERY DAY TAKE ONE TABLET BY MOUTH EVERY DAY SOLD: 06/23/2021 [facility] 75 mg 03/27/2021 12:00:00 AM EDT tablet 90 TAKE ONE TABLET BY MOUTH EVERY DAY TAKE ONE TABLET BY MOUTH EVERY DAY SOLD: 03/27/2021 [facility] 40 mg 03/27/2021 12:00:00 AM EDT tablet 90 TAKE ONE TABLET BY MOUTH EVERY DAY TAKE ONE TABLET BY MOUTH EVERY DAY SOLD: 06/30/2021 [facility] 30 mg 03/22/2021 12:00:00 AM EDT capsule,delayed release (DR/EC) 30 TAKE ONE CAPSULE BY MOUTH EVERY DAY FOR PAIN TAKE ONE CAPSULE BY MOUTH EVERY DAY FOR PAIN SOLD: 04/27/2021 [facility] Fluconazole 150 MG Oral Tablet [Diflucan] Diflucan 150 MG Di flucan 150 MG 03/22/2021 12:00:00 AM EDT 1.0 {tablet} active Diflucan 150 MG eCW1 ([facility]) Fluconazole 150 MG Oral Tablet [Diflucan] Diflucan 150 MG Di flucan 150 MG 03/22/2021 12:00:00 AM EDT 1.0 {tablet} active Diflucan 150 MG eCW1 ([facility]) 150 mg 03/22/2021 12:00:00 AM EDT tablet 1 TAKE ONE TABLET BY MOUTH ONCE TAKE ONE TABLET BY MOUTH ONCE SOLD: 03/22/2021 [facility] Cyclobenzaprine hydrochloride 10 MG Oral Tablet CYCLOBENZAPR INE HCL 03/22/2021 12:00:00 AM EDT tablet 90 TAKE ONE TABLET BY MOUTH THREE TIMES A DAY NEEDED FOR SPASMS AND PAIN TAKE ONE TABLET BY MOUTH THREE TIMES A D AY NEEDED FOR SPASMS AND PAIN SOLD: 04/27/2021 [facility] Fluconazole 150 MG Oral Tablet [Diflucan] Diflucan 150 MG Di flucan 150 MG 03/22/2021 12:00:00 AM EDT 1.0 {tablet} active Diflucan 150 MG eCW1 ([facility]) Fluconazole 150 MG Oral Tablet [Diflucan] Diflucan 150 MG Di flucan 150 MG 03/22/2021 12:00:00 AM EDT 1.0 {tablet} active Diflucan 150 MG eCW1 ([facility]) 30 mg 03/22/2021 12:00:00 AM EDT capsule,delayed release (DR/EC) 30 TAKE ONE CAPSULE BY MOUTH EVERY DAY FOR PAIN TAKE ONE CAPSULE BY MOUTH EVERY DAY FOR PAIN SOLD: 03/22/2021 [facility] Fluconazole 150 MG Oral Tablet [Diflucan] Diflucan 150 MG Di flucan 150 MG 03/22/2021 12:00:00 AM EDT 1.0 {tablet} active Diflucan 150 MG eCW1 ([facility]) Fluconazole 150 MG Oral Tablet [Diflucan] Diflucan 150 MG Di flucan 150 MG 03/22/2021 12:00:00 AM EDT 1.0 {tablet} active Diflucan 150 MG eCW1 ([facility]) Cyclobenzaprine hydrochloride 10 MG Oral Tablet CYCLOBENZAPR INE HCL 03/22/2021 12:00:00 AM EDT tablet 90 TAKE ONE TABLET BY MOUTH THREE TIMES A DAY NEEDED FOR SPASMS AND PAIN TAKE ONE TABLET BY MOUTH THREE TIMES A D AY NEEDED FOR SPASMS AND PAIN SOLD: 03/22/2021 [facility] Fluconazole 150 MG Oral Tablet [Diflucan] Diflucan 150 MG Di flucan 150 MG 03/22/2021 12:00:00 AM EDT 1.0 {tablet} active Diflucan 150 MG eCW1 ([facility]) 150 mg 03/21/2021 12:00:00 AM EDT capsule 90 TAKE ONE CAPSULE BY MOUTH THREE TIMES A DAY FOR PAIN MAXIMUM DAILY DOSE = 3 TAKE ONE CAPSULE BY MOUTH THREE TIMES A DAY FOR PAIN MAXIMUM DAILY DOSE = 3 SOLD: 03/22/2021 [facility] 50 mg 03/21/2021 12:00:00 AM EDT tablet 90 TAKE ONE TABLET BY MOUTH EVERY 6 HOURS NEEDED FOR PAIN MAXIMUM DAILY DOSE = 4 TAKE ONE TABLET BY MOUTH EVERY 6 HOURS NEEDED FOR PAIN MAXIMUM DAILY DOSE = 4 SOLD: 04/27/2021 [facility] 150 mg 03/21/2021 12:00:00 AM EDT capsule 90 TAKE ONE CAPSULE BY MOUTH THREE TIMES A DAY FOR PAIN MAXIMUM DAILY DOSE = 3 TAKE ONE CAPSULE BY MOUTH THREE TIMES A DAY FOR PAIN MAXIMUM DAILY DOSE = 3 SOLD: 04/27/2021 [facility] 50 mg 03/21/2021 12:00:00 AM EDT tablet 90 TAKE ONE TABLET BY MOUTH EVERY 6 HOURS NEEDED FOR PAIN MAXIMUM DAILY DOSE = 4 TAKE ONE TABLET BY MOUTH EVERY 6 HOURS NEEDED FOR PAIN MAXIMUM DAILY DOSE = 4 SOLD: 03/22/2021 [facility] Amoxicillin 500 MG / Clavulanate 125 MG Oral Tablet [Augmentin] Augmentin 500- 125 MG Augmentin 500-125 MG 03/16/2021 12:00:00 AM EDT 1.0 {tablet} active Augmentin 500-125 MG eCW1 ([facility]) 30 mg 03/16/2021 12:00:00 AM EDT tablet 21 TAKE 1 TABLET BY MOUTH 30 MINUTES PRIOR TO TREATMENT FOR NASAL CONGESTION THREE TIMES A DAY FOR 7 DAYS TAKE 1 TABLET BY MOUTH 30 MINUTES PRIOR TO TREATMENT FOR NASAL CONGESTION THREE TIMES A DAY FOR 7 DAYS SOLD: 03/16/2021 [facility] Pseudoephedrine Hydrochloride 30 MG Oral Tablet Pseudo ephedrine HCl 30 MG Pseudoephedrine HCl 30 MG 03/16/2021 12:00:00 AM EDT active Pseudoephedrine HCl 30 MG eCW1 ([facility]) Pseudoephedrine Hydrochloride 30 MG Oral Tablet Pseudo ephedrine HCl 30 MG Pseudoephedrine HCl 30 MG 03/16/2021 12:00:00 AM EDT active Pseudoephedrine HCl 30 MG eCW1 ([facility]) Amoxicillin 500 MG / Clavulanate 125 MG Oral Tablet 50 0-125 mg AMOXICILLIN/POTASSIUM CLAV 03/16/2021 12:00:00 AM EDT tablet 21 TAKE 1 TABLET BY MOUTH EVERY 8 HOURS FOR 7 DAYS TAKE 1 TABLET BY MOUTH EVERY 8 HOURS FOR 7 DAYS SOLD: 03/16/2021 [facility] Amoxicillin 500 MG / Clavulanate 125 MG Oral Tablet [Augmentin] Augmentin 500- 125 MG Augmentin 500-125 MG 03/16/2021 12:00:00 AM EDT 1.0 {tablet} active Augmentin 500-125 MG eCW1 ([facility]) Pseudoephedrine Hydrochloride 30 MG Oral Tablet Pseudo ephedrine HCl 30 MG Pseudoephedrine HCl 30 MG 03/16/2021 12:00:00 AM EDT active Pseudoephedrine HCl 30 MG eCW1 ([facility]) Pseudoephedrine Hydrochloride 30 MG Oral Tablet Pseudo ephedrine HCl 30 MG Pseudoephedrine HCl 30 MG 03/16/2021 12:00:00 AM EDT active Pseudoephedrine HCl 30 MG eCW1 ([facility]) Pseudoephedrine Hydrochloride 30 MG Oral Tablet Pseudo ephedrine HCl 30 MG Pseudoephedrine HCl 30 MG 03/16/2021 12:00:00 AM EDT active Pseudoephedrine HCl 30 MG eCW1 ([facility]) Pseudoephedrine Hydrochloride 30 MG Oral Tablet Pseudo ephedrine HCl 30 MG Pseudoephedrine HCl 30 MG 03/16/2021 12:00:00 AM EDT active Pseudoephedrine HCl 30 MG eCW1 ([facility]) Amoxicillin 500 MG / Clavulanate 125 MG Oral Tablet [Augmentin] Augmentin 500- 125 MG Augmentin 500-125 MG 03/16/2021 12:00:00 AM EDT 1.0 {tablet} active Augmentin 500-125 MG eCW1 ([facility]) 80 mg 03/16/2021 12:00:00 AM EDT tablet,chewable 90 TAKE 1 TABLET BY MOUTH AFTER MEALS FOR GAS/ BLOATING NEEDED UP TO 3 TIMES DAILY TAKE 1 TABLET BY MOUTH AFTER MEALS FOR GAS/ BLOATING NEEDED UP TO 3 TIMES DAILY SOLD: 03/16/2021 [facility] Pseudoephedrine Hydrochloride 30 MG Oral Tablet Pseudo ephedrine HCl 30 MG Pseudoephedrine HCl 30 MG 03/16/2021 12:00:00 AM EDT active Pseudoephedrine HCl 30 MG eCW1 ([facility]) Pseudoephedrine Hydrochloride 30 MG Oral Tablet Pseudo ephedrine HCl 30 MG Pseudoephedrine HCl 30 MG 03/16/2021 12:00:00 AM EDT active Pseudoephedrine HCl 30 MG eCW1 ([facility]) 80 mg 03/16/2021 12:00:00 AM EDT tablet,chewable 90 TAKE 1 TABLET BY MOUTH AFTER MEALS FOR GAS/ BLOATING NEEDED UP TO 3 TIMES DAILY TAKE 1 TABLET BY MOUTH AFTER MEALS FOR GAS/ BLOATING NEEDED UP TO 3 TIMES DAILY SOLD: 06/09/2021 [facility] Pseudoephedrine Hydrochloride 30 MG Oral Tablet Pseudo ephedrine HCl 30 MG Pseudoephedrine HCl 30 MG 03/16/2021 12:00:00 AM EDT active Pseudoephedrine HCl 30 MG eCW1 ([facility]) Amoxicillin 500 MG / Clavulanate 125 MG Oral Tablet [Augmentin] Augmentin 500- 125 MG Augmentin 500-125 MG 03/16/2021 12:00:00 AM EDT 1.0 {tablet} active Augmentin 500-125 MG eCW1 ([facility]) Amoxicillin 500 MG / Clavulanate 125 MG Oral Tablet [Augmentin] Augmentin 500- 125 MG Augmentin 500-125 MG 03/16/2021 12:00:00 AM EDT 1.0 {tablet} active Augmentin 500-125 MG eCW1 ([facility]) Pseudoephedrine Hydrochloride 30 MG Oral Tablet Pseudo ephedrine HCl 30 MG Pseudoephedrine HCl 30 MG 03/16/2021 12:00:00 AM EDT active Pseudoephedrine HCl 30 MG eCW1 ([facility]) Amoxicillin 500 MG / Clavulanate 125 MG Oral Tablet [Augmentin] Augmentin 500- 125 MG Augmentin 500-125 MG 03/16/2021 12:00:00 AM EDT 1.0 {tablet} active Augmentin 500-125 MG eCW1 ([facility]) Pseudoephedrine Hydrochloride 30 MG Oral Tablet Pseudo ephedrine HCl 30 MG Pseudoephedrine HCl 30 MG 03/16/2021 12:00:00 AM EDT active Pseudoephedrine HCl 30 MG eCW1 ([facility]) Pseudoephedrine Hydrochloride 30 MG Oral Tablet Pseudo ephedrine HCl 30 MG Pseudoephedrine HCl 30 MG 03/16/2021 12:00:00 AM EDT active Pseudoephedrine HCl 30 MG eCW1 ([facility]) Pseudoephedrine Hydrochloride 30 MG Oral Tablet Pseudo ephedrine HCl 30 MG Pseudoephedrine HCl 30 MG 03/16/2021 12:00:00 AM EDT active Pseudoephedrine HCl 30 MG eCW1 ([facility]) Pseudoephedrine Hydrochloride 30 MG Oral Tablet Pseudo ephedrine HCl 30 MG Pseudoephedrine HCl 30 MG 03/16/2021 12:00:00 AM EDT active Pseudoephedrine HCl 30 MG eCW1 ([facility]) Atropine Sulfate 0.025 MG / Diphenoxylat e Hydrochloride 2.5 MG Oral Tablet 2.5- 0.025 mg DIPHENOXYLATE HCL/ATROPINE 03/16/2021 12:00:00 AM EDT tablet 60 TAKE 1 TABLET BY MOUTH UP TO TWICE DAILY FOR DIARRHEA MAXIMUM DAILY DOSE = 2 TABLETS TAKE 1 TABLET BY MOUTH UP TO TWICE DAILY FOR DIARRHEA MAXIMUM DAILY DOSE = 2 TABLETS SOLD: 03/16/2021 [facility] 55 mcg 03/16/2021 12:00:00 AM EDT aerosol,spray 16 SPRAY 1 SPRAY IN EACH NOSTRIL ONCE A DAY SPRAY 1 SPRAY IN EACH NOSTRIL ONCE A DAY SOLD: 03/16/2021 [facility] Pseudoephedrine Hydrochloride 30 MG Oral Tablet Pseudo ephedrine HCl 30 MG Pseudoephedrine HCl 30 MG 03/16/2021 12:00:00 AM EDT active Pseudoephedrine HCl 30 MG eCW1 ([facility]) Amoxicillin 500 MG / Clavulanate 125 MG Oral Tablet [Augmentin] Augmentin 500- 125 MG Augmentin 500-125 MG 03/16/2021 12:00:00 AM EDT 1.0 {tablet} active Augmentin 500-125 MG eCW1 ([facility]) Amoxicillin 500 MG / Clavulanate 125 MG Oral Tablet [Augmentin] Augmentin 500- 125 MG Augmentin 500-125 MG 03/16/2021 12:00:00 AM EDT 1.0 {tablet} active Augmentin 500-125 MG eCW1 ([facility]) Amoxicillin 500 MG / Clavulanate 125 MG Oral Tablet [Augmentin] Augmentin 500- 125 MG Augmentin 500-125 MG 03/16/2021 12:00:00 AM EDT 1.0 {tablet} active Augmentin 500-125 MG eCW1 ([facility]) Pseudoephedrine Hydrochloride 30 MG Oral Tablet Pseudo ephedrine HCl 30 MG Pseudoephedrine HCl 30 MG 03/16/2021 12:00:00 AM EDT active Pseudoephedrine HCl 30 MG eCW1 ([facility]) Pseudoephedrine Hydrochloride 30 MG Oral Tablet Pseudo ephedrine HCl 30 MG Pseudoephedrine HCl 30 MG 03/16/2021 12:00:00 AM EDT active Pseudoephedrine HCl 30 MG eCW1 ([facility]) Pseudoephedrine Hydrochloride 30 MG Oral Tablet Pseudo ephedrine HCl 30 MG Pseudoephedrine HCl 30 MG 03/16/2021 12:00:00 AM EDT active Pseudoephedrine HCl 30 MG eCW1 ([facility]) 80 mg 03/16/2021 12:00:00 AM EDT tablet,chewable 90 TAKE 1 TABLET BY MOUTH AFTER MEALS FOR GAS/ BLOATING NEEDED UP TO 3 TIMES DAILY TAKE 1 TABLET BY MOUTH AFTER MEALS FOR GAS/ BLOATING NEEDED UP TO 3 TIMES DAILY SOLD: 04/27/2021 [facility] Pseudoephedrine Hydrochloride 30 MG Oral Tablet Pseudo ephedrine HCl 30 MG Pseudoephedrine HCl 30 MG 03/16/2021 12:00:00 AM EDT active Pseudoephedrine HCl 30 MG eCW1 ([facility]) Pseudoephedrine Hydrochloride 30 MG Oral Tablet Pseudo ephedrine HCl 30 MG Pseudoephedrine HCl 30 MG 03/16/2021 12:00:00 AM EDT active Pseudoephedrine HCl 30 MG eCW1 ([facility]) Pseudoephedrine Hydrochloride 30 MG Oral Tablet Pseudo ephedrine HCl 30 MG Pseudoephedrine HCl 30 MG 03/16/2021 12:00:00 AM EDT active Pseudoephedrine HCl 30 MG eCW1 ([facility]) Pseudoephedrine Hydrochloride 30 MG Oral Tablet Pseudo ephedrine HCl 30 MG Pseudoephedrine HCl 30 MG 03/16/2021 12:00:00 AM EDT active Pseudoephedrine HCl 30 MG eCW1 ([facility]) Wrist Splint/Cock-Up/Right Sm - Wrist Splint/Cock-Up/Right S - 03/11/2021 12:00:00 AM EDT active Wrist Sp lint/Cock-Up/Right Sm - eCW1 ([facility]) Wrist Splint/Cock-Up/Right Sm - Wrist Splint/Cock-Up/Right S m - 03/11/2021 12:00:00 AM EDT active Wrist Sp lint/Cock-Up/Right Sm - eCW1 ([facility]) Wrist Splint/Cock-Up/Left Sm - Wrist Splint/Cock-Up/Left Sm - 03/11/2021 12:00:00 AM EDT active Wrist Sp lint/Cock-Up/Left Sm - eCW1 ([facility]) Wrist Splint/Cock-Up/Left Sm - Wrist Splint/Cock-Up/Left Sm - 03/11/2021 12:00:00 AM EDT active Wrist Sp lint/Cock-Up/Left Sm - eCW1 ([facility]) Wrist Splint/Cock-Up/Right Sm - Wrist Splint/Cock-Up/Right S - 03/11/2021 12:00:00 AM EDT active Wrist Sp lint/Cock-Up/Right Sm - eCW1 ([facility]) Wrist Splint/Cock-Up/Right Sm - Wrist Splint/Cock-Up/Right S 03/11/2021 12:00:00 AM EDT active Wrist Sp lint/Cock-Up/Right Sm - eCW1 ([facility]) Wrist Splint/Cock-Up/Left Sm - Wrist Splint/Cock-Up/Left Sm - 03/11/2021 12:00:00 AM EDT active Wrist Sp lint/Cock-Up/Left Sm - eCW1 ([facility]) Wrist Splint/Cock-Up/Left Sm - Wrist Splint/Cock-Up/Left Sm - 03/11/2021 12:00:00 AM EDT active Wrist Sp lint/Cock-Up/Left Sm - eCW1 ([facility]) Wrist Splint/Cock-Up/Left Sm - Wrist Splint/Cock-Up/Left Sm - 03/11/2021 12:00:00 AM EDT active Wrist Sp lint/Cock-Up/Left Sm - eCW1 ([facility]) Wrist Splint/Cock-Up/Right Sm - Wrist Splint/Cock-Up/Right S - 03/11/2021 12:00:00 AM EDT active Wrist Sp lint/Cock-Up/Right Sm - eCW1 ([facility]) Wrist Splint/Cock-Up/Left Sm - Wrist Splint/Cock-Up/Left Sm - 03/11/2021 12:00:00 AM EDT active Wrist Sp lint/Cock-Up/Left Sm - eCW1 ([facility]) Wrist Splint/Cock-Up/Right Sm - Wrist Splint/Cock-Up/Right S - 03/11/2021 12:00:00 AM EDT active Wrist Sp lint/Cock-Up/Right Sm - eCW1 ([facility]) Wrist Splint/Cock-Up/Left Sm - Wrist Splint/Cock-Up/Left Sm - 03/11/2021 12:00:00 AM EDT active Wrist Sp lint/Cock-Up/Left Sm - eCW1 ([facility]) Wrist Splint/Cock-Up/Right Sm - Wrist Splint/Cock-Up/Right S - 03/11/2021 12:00:00 AM EDT active Wrist Sp lint/Cock-Up/Right Sm - eCW1 ([facility]) Wrist Splint/Cock-Up/Right Sm - Wrist Splint/Cock-Up/Right S 03/11/2021 12:00:00 AM EDT active Wrist Sp lint/Cock-Up/Right Sm - eCW1 ([facility]) Wrist Splint/Cock-Up/Right Sm - Wrist Splint/Cock-Up/Right S - 03/11/2021 12:00:00 AM EDT active Wrist Sp lint/Cock-Up/Right Sm - eCW1 ([facility]) Wrist Splint/Cock-Up/Left Sm - Wrist Splint/Cock-Up/Left Sm - 03/11/2021 12:00:00 AM EDT active Wrist Sp lint/Cock-Up/Left Sm - eCW1 ([facility]) Wrist Splint/Cock-Up/Left Sm - Wrist Splint/Cock-Up/Left Sm - 03/11/2021 12:00:00 AM EDT active Wrist Sp lint/Cock-Up/Left Sm - eCW1 ([facility]) Wrist Splint/Cock-Up/Right Sm - Wrist Splint/Cock-Up/Right S - 03/11/2021 12:00:00 AM EDT active Wrist Sp lint/Cock-Up/Right Sm - eCW1 ([facility]) Wrist Splint/Cock-Up/Right Sm - Wrist Splint/Cock-Up/Right S - 03/11/2021 12:00:00 AM EDT active Wrist Sp lint/Cock-Up/Right Sm - eCW1 ([facility]) Wrist Splint/Cock-Up/Right Sm - Wrist Splint/Cock-Up/Right S m - 03/11/2021 12:00:00 AM EDT active Wrist Sp lint/Cock-Up/Right Sm - eCW1 ([facility]) Wrist Splint/Cock-Up/Left Sm - Wrist Splint/Cock-Up/Left Sm - 03/11/2021 12:00:00 AM EDT active Wrist Sp lint/Cock-Up/Left Sm - eCW1 ([facility]) Wrist Splint/Cock-Up/Right Sm - Wrist Splint/Cock-Up/Right S - 03/11/2021 12:00:00 AM EDT active Wrist Sp lint/Cock-Up/Right Sm - eCW1 ([facility]) Wrist Splint/Cock-Up/Left Sm - Wrist Splint/Cock-Up/Left Sm - 03/11/2021 12:00:00 AM EDT active Wrist Sp lint/Cock-Up/Left Sm - eCW1 ([facility]) Wrist Splint/Cock-Up/Right Sm - Wrist Splint/Cock-Up/Right S m - 03/11/2021 12:00:00 AM EDT active Wrist Sp lint/Cock-Up/Right Sm - eCW1 ([facility]) Wrist Splint/Cock-Up/Left Sm - Wrist Splint/Cock-Up/Left Sm - 03/11/2021 12:00:00 AM EDT active Wrist Sp lint/Cock-Up/Left Sm - eCW1 ([facility]) Wrist Splint/Cock-Up/Left Sm - Wrist Splint/Cock-Up/Left Sm - 03/11/2021 12:00:00 AM EDT active Wrist Sp lint/Cock-Up/Left Sm - eCW1 ([facility]) Wrist Splint/Cock-Up/Left Sm - Wrist Splint/Cock-Up/Left Sm - 03/11/2021 12:00:00 AM EDT active Wrist Sp lint/Cock-Up/Left Sm - eCW1 ([facility]) Wrist Splint/Cock-Up/Right Sm - Wrist Splint/Cock-Up/Right S 03/11/2021 12:00:00 AM EDT active Wrist Sp lint/Cock-Up/Right Sm - eCW1 ([facility]) Wrist Splint/Cock-Up/Left Sm - Wrist Splint/Cock-Up/Left Sm - 03/11/2021 12:00:00 AM EDT active Wrist Sp lint/Cock-Up/Left Sm - eCW1 ([facility]) Wrist Splint/Cock-Up/Left Sm - Wrist Splint/Cock-Up/Left Sm - 03/11/2021 12:00:00 AM EDT active Wrist Sp lint/Cock-Up/Left Sm - eCW1 ([facility]) Wrist Splint/Cock-Up/Right Sm - Wrist Splint/Cock-Up/Right S 03/11/2021 12:00:00 AM EDT active Wrist Sp lint/Cock-Up/Right Sm - eCW1 ([facility]) Wrist Splint/Cock-Up/Left Sm - Wrist Splint/Cock-Up/Left Sm - 03/11/2021 12:00:00 AM EDT active Wrist Sp lint/Cock-Up/Left Sm - eCW1 ([facility]) Wrist Splint/Cock-Up/Right Sm - Wrist Splint/Cock-Up/Right S 03/11/2021 12:00:00 AM EDT active Wrist Sp lint/Cock-Up/Right Sm - eCW1 ([facility]) Wrist Splint/Cock-Up/Right Sm - Wrist Splint/Cock-Up/Right S 03/11/2021 12:00:00 AM EDT active Wrist Sp lint/Cock-Up/Right Sm - eCW1 ([facility]) Wrist Splint/Cock-Up/Right Sm - Wrist Splint/Cock-Up/Right S 03/11/2021 12:00:00 AM EDT active Wrist Sp lint/Cock-Up/Right Sm - eCW1 ([facility]) Wrist Splint/Cock-Up/Left Sm - Wrist Splint/Cock-Up/Left Sm - 03/11/2021 12:00:00 AM EDT active Wrist Sp lint/Cock-Up/Left Sm - eCW1 ([facility]) Wrist Splint/Cock-Up/Right Sm - Wrist Splint/Cock-Up/Right S - 03/11/2021 12:00:00 AM EDT active Wrist Sp lint/Cock-Up/Right Sm - eCW1 ([facility]) Wrist Splint/Cock-Up/Left Sm - Wrist Splint/Cock-Up/Left Sm - 03/11/2021 12:00:00 AM EDT active Wrist Sp lint/Cock-Up/Left Sm - eCW1 ([facility]) Wrist Splint/Cock-Up/Left Sm - Wrist Splint/Cock-Up/Left Sm - 03/11/2021 12:00:00 AM EDT active Wrist Sp lint/Cock-Up/Left Sm - eCW1 ([facility]) Wrist Splint/Cock-Up/Left Sm - Wrist Splint/Cock-Up/Left Sm - 03/11/2021 12:00:00 AM EDT active Wrist Sp lint/Cock-Up/Left Sm - eCW1 ([facility]) Wrist Splint/Cock-Up/Left Sm - Wrist Splint/Cock-Up/Left Sm - 03/11/2021 12:00:00 AM EDT active Wrist Sp lint/Cock-Up/Left Sm - eCW1 ([facility]) Wrist Splint/Cock-Up/Right Sm - Wrist Splint/Cock-Up/Right S - 03/11/2021 12:00:00 AM EDT active Wrist Sp lint/Cock-Up/Right Sm - eCW1 ([facility]) Wrist Splint/Cock-Up/Right Sm - Wrist Splint/Cock-Up/Right S m - 03/11/2021 12:00:00 AM EDT active Wrist Sp lint/Cock-Up/Right Sm - eCW1 ([facility]) 40 mg 03/04/2021 12:00:00 AM EDT tablet 30 TAKE ONE TABLET BY MOUTH EVERY DAY TAKE ONE TABLET BY MOUTH EVERY DAY SOLD: 03/07/2021 [facility] pantoprazole 40 MG Delayed Release Oral Tablet PANTOPRAZOLE SODIUM 03/04/2021 12:00:00 AM EDT tablet,delayed release (DR/EC) 60 T ROGELIO ONE TABLET BY MOUTH TWICE A DAY TAKE ONE TABLET BY MOUTH TWICE A DAY SOLD: 03/07/2021 [facility] pantoprazole 40 MG Delayed Release Oral Tablet PANTOPRAZOLE SODIUM 03/04/2021 12:00:00 AM EDT tablet,delayed release (DR/EC) 60 T ROGELIO ONE TABLET BY MOUTH TWICE A DAY TAKE ONE TABLET BY MOUTH TWICE A DAY SOLD: 04/27/2021 [facility] pantoprazole 40 MG Delayed Release Oral Tablet PANTOPRAZOLE SODIUM 03/04/2021 12:00:00 AM EDT tablet,delayed release (DR/EC) 60 T ROGELIO ONE TABLET BY MOUTH TWICE A DAY TAKE ONE TABLET BY MOUTH TWICE A DAY SOLD: 03/25/2021 [facility] pantoprazole 40 MG Delayed Release Oral Tablet PANTOPRAZOLE SODIUM 03/04/2021 12:00:00 AM EDT tablet,delayed release (DR/EC) 60 T ROGELIO ONE TABLET BY MOUTH TWICE A DAY TAKE ONE TABLET BY MOUTH TWICE A DAY SOLD: 06/09/2021 [facility] 1 gram 02/23/2021 12:00:00 AM EDT tablet 120 TAKE 1 TABLET BY MOUTH THREE TIMES A DAY 30 MINUTES PRIOR TO MEALS AND AT BEDTIME TAKE 1 TABLET BY MOUTH THREE TIMES A DAY 30 MINUTES PRIOR TO MEALS AND AT BEDTIME SOLD: 02/23/2021 [facility] 1 gram 02/23/2021 12:00:00 AM EDT tablet 120 TAKE 1 TABLET BY MOUTH THREE TIMES A DAY 30 MINUTES PRIOR TO MEALS AND AT BEDTIME TAKE 1 TABLET BY MOUTH THREE TIMES A DAY 30 MINUTES PRIOR TO MEALS AND AT BEDTIME SOLD: 04/28/2021 [facility] 1 gram 02/23/2021 12:00:00 AM EDT tablet 120 TAKE 1 TABLET BY MOUTH THREE TIMES A DAY 30 MINUTES PRIOR TO MEALS AND AT BEDTIME TAKE 1 TABLET BY MOUTH THREE TIMES A DAY 30 MINUTES PRIOR TO MEALS AND AT BEDTIME SOLD: 06/09/2021 [facility] 50 mg 02/18/2021 12:00:00 AM EDT tablet 90 TAKE ONE TABLET BY MOUTH EVERY 6 HOURS NEEDED FOR PAIN MAXIMUM DAILY DOSE = 4 TABLETS TAKE ONE TABLET BY MOUTH EVERY 6 HOURS NEEDED FOR PAIN MAXIMUM DAILY DOSE = 4 TABLETS SOLD: 02/20/2021 [facility] 150 mg 02/17/2021 12:00:00 AM EDT capsule 90 TAKE ONE CAPSULE BY MOUTH THREE TIMES A DAY MAXIMUM DAILY DOSE = 3 CAPSULES TAKE ONE CAPSULE BY MOUTH THREE TIMES A DAY MAXIMUM DAILY DOSE = 3 CAPSULES SOLD: 02/20/2021 [facility] Sucralfate 100 MG/ML Oral Suspension Sucralfate 02/17/2021 12:00:00 A M EDT ORAL active MEDENT ([facility], ) 30 mg 02/17/2021 12:00:00 AM EDT capsule,delayed release (DR/EC) 30 TAKE ONE CAPSULE BY MOUTH EVERY DAY FOR PAIN TAKE ONE CAPSULE BY MOUTH EVERY DAY FOR PAIN SOLD: 02/20/2021 [facility] 75 mg 02/16/2021 12:00:00 AM EDT tablet 30 TAKE ONE TABLET BY MOUTH EVERY DAY TAKE ONE TABLET BY MOUTH EVERY DAY SOLD: 02/17/2021 [facility] Bupropion Hydrochloride 75 MG Oral Tablet buPROPion HC l 75 MG buPROPion HCl 75 MG 02/15/2021 12:00:00 AM EDT 1.0 {tablet} activ e buPROPion HCl 75 MG eCW1 ([facility]) Bupropion Hydrochloride 75 MG Oral Tablet buPROPion HC l 75 MG buPROPion HCl 75 MG 02/15/2021 12:00:00 AM EDT 1.0 {tablet} activ e buPROPion HCl 75 MG eCW1 ([facility]) Bupropion Hydrochloride 75 MG Oral Tablet buPROPion HC l 75 MG buPROPion HCl 75 MG 02/15/2021 12:00:00 AM EDT 1.0 {tablet} activ e buPROPion HCl 75 MG eCW1 ([facility]) Bupropion Hydrochloride 75 MG Oral Tablet buPROPion HC l 75 MG buPROPion HCl 75 MG 02/15/2021 12:00:00 AM EDT 1.0 {tablet} activ e buPROPion HCl 75 MG eCW1 ([facility]) Bupropion Hydrochloride 75 MG Oral Tablet buPROPion HC l 75 MG buPROPion HCl 75 MG 02/15/2021 12:00:00 AM EDT 1.0 {tablet} activ e buPROPion HCl 75 MG eCW1 ([facility]) Bupropion Hydrochloride 75 MG Oral Tablet buPROPion HC l 75 MG buPROPion HCl 75 MG 02/15/2021 12:00:00 AM EDT 1.0 {tablet} activ e buPROPion HCl 75 MG eCW1 ([facility]) Bupropion Hydrochloride 75 MG Oral Tablet buPROPion HC l 75 MG buPROPion HCl 75 MG 02/15/2021 12:00:00 AM EDT 1.0 {tablet} activ e buPROPion HCl 75 MG eCW1 ([facility]) Bupropion Hydrochloride 75 MG Oral Tablet buPROPion HC l 75 MG buPROPion HCl 75 MG 02/15/2021 12:00:00 AM EDT 1.0 {tablet} activ e buPROPion HCl 75 MG eCW1 ([facility]) Bupropion Hydrochloride 75 MG Oral Tablet buPROPion HC l 75 MG buPROPion HCl 75 MG 02/15/2021 12:00:00 AM EDT 1.0 {tablet} activ e buPROPion HCl 75 MG eCW1 ([facility]) Bupropion Hydrochloride 75 MG Oral Tablet buPROPion HC l 75 MG buPROPion HCl 75 MG 02/15/2021 12:00:00 AM EDT 1.0 {tablet} activ e buPROPion HCl 75 MG eCW1 ([facility]) Bupropion Hydrochloride 75 MG Oral Tablet buPROPion HC l 75 MG buPROPion HCl 75 MG 02/15/2021 12:00:00 AM EDT 1.0 {tablet} activ e buPROPion HCl 75 MG eCW1 ([facility]) Bupropion Hydrochloride 75 MG Oral Tablet buPROPion HC l 75 MG buPROPion HCl 75 MG 02/15/2021 12:00:00 AM EDT 1.0 {tablet} activ e buPROPion HCl 75 MG eCW1 ([facility]) Bupropion Hydrochloride 75 MG Oral Tablet buPROPion HC l 75 MG buPROPion HCl 75 MG 02/15/2021 12:00:00 AM EDT 1.0 {tablet} activ e buPROPion HCl 75 MG eCW1 ([facility]) Bupropion Hydrochloride 75 MG Oral Tablet buPROPion HC l 75 MG buPROPion HCl 75 MG 02/15/2021 12:00:00 AM EDT 1.0 {tablet} activ e buPROPion HCl 75 MG eCW1 ([facility]) Bupropion Hydrochloride 75 MG Oral Tablet buPROPion HC l 75 MG buPROPion HCl 75 MG 02/15/2021 12:00:00 AM EDT 1.0 {tablet} activ e buPROPion HCl 75 MG eCW1 ([facility]) Bupropion Hydrochloride 75 MG Oral Tablet buPROPion HC l 75 MG buPROPion HCl 75 MG 02/15/2021 12:00:00 AM EDT 1.0 {tablet} activ e buPROPion HCl 75 MG eCW1 ([facility]) Bupropion Hydrochloride 75 MG Oral Tablet buPROPion HC l 75 MG buPROPion HCl 75 MG 02/15/2021 12:00:00 AM EDT 1.0 {tablet} activ e buPROPion HCl 75 MG eCW1 ([facility]) Bupropion Hydrochloride 75 MG Oral Tablet buPROPion HC l 75 MG buPROPion HCl 75 MG 02/15/2021 12:00:00 AM EDT 1.0 {tablet} activ e buPROPion HCl 75 MG eCW1 ([facility]) Bupropion Hydrochloride 75 MG Oral Tablet buPROPion HC l 75 MG buPROPion HCl 75 MG 02/15/2021 12:00:00 AM EDT 1.0 {tablet} activ e buPROPion HCl 75 MG eCW1 ([facility]) Bupropion Hydrochloride 75 MG Oral Tablet buPROPion HC l 75 MG buPROPion HCl 75 MG 02/15/2021 12:00:00 AM EDT 1.0 {tablet} activ e buPROPion HCl 75 MG eCW1 ([facility]) Bupropion Hydrochloride 75 MG Oral Tablet buPROPion HC l 75 MG buPROPion HCl 75 MG 02/15/2021 12:00:00 AM EDT 1.0 {tablet} activ e buPROPion HCl 75 MG eCW1 ([facility]) Bupropion Hydrochloride 75 MG Oral Tablet buPROPion HC l 75 MG buPROPion HCl 75 MG 02/15/2021 12:00:00 AM EDT 1.0 {tablet} activ e buPROPion HCl 75 MG eCW1 ([facility]) Bupropion Hydrochloride 75 MG Oral Tablet buPROPion HC l 75 MG buPROPion HCl 75 MG 02/15/2021 12:00:00 AM EDT 1.0 {tablet} activ e buPROPion HCl 75 MG eCW1 ([facility]) Bupropion Hydrochloride 75 MG Oral Tablet buPROPion HC l 75 MG buPROPion HCl 75 MG 02/15/2021 12:00:00 AM EDT 1.0 {tablet} activ e buPROPion HCl 75 MG eCW1 ([facility]) Bupropion Hydrochloride 75 MG Oral Tablet buPROPion HC l 75 MG buPROPion HCl 75 MG 02/15/2021 12:00:00 AM EDT 1.0 {tablet} activ e buPROPion HCl 75 MG eCW1 ([facility]) Bupropion Hydrochloride 75 MG Oral Tablet buPROPion HC l 75 MG buPROPion HCl 75 MG 02/15/2021 12:00:00 AM EDT 1.0 {tablet} activ e buPROPion HCl 75 MG eCW1 ([facility]) Bupropion Hydrochloride 75 MG Oral Tablet buPROPion HC l 75 MG buPROPion HCl 75 MG 02/15/2021 12:00:00 AM EDT 1.0 {tablet} activ e buPROPion HCl 75 MG eCW1 ([facility]) Bupropion Hydrochloride 75 MG Oral Tablet buPROPion HC l 75 MG buPROPion HCl 75 MG 02/15/2021 12:00:00 AM EDT 1.0 {tablet} activ e buPROPion HCl 75 MG eCW1 ([facility]) cefdinir 300 MG Oral Capsule Cefdinir 300 MG Cefdinir 300 MG 02/09/2021 12:00:00 AM EDT suspended Cefdinir 300 MG eCW1 ([facility]) cefdinir 300 MG Oral Capsule Cefdinir 300 MG Cefdinir 300 MG 02/09/2021 12:00:00 AM EDT suspended Cefdinir 300 MG eCW1 ([facility]) cefdinir 300 MG Oral Capsule Cefdinir 300 MG Cefdinir 300 MG 02/09/2021 12:00:00 AM EDT suspended Cefdinir 300 MG eCW1 ([facility]) cefdinir 300 MG Oral Capsule Cefdinir 300 MG Cefdinir 300 MG 02/09/2021 12:00:00 AM EDT suspended Cefdinir 300 MG eCW1 ([facility]) cefdinir 300 MG Oral Capsule Cefdinir 300 MG Cefdinir 300 MG 02/09/2021 12:00:00 AM EDT active Cefdinir 300 MG eCW1 ([facility]) cefdinir 300 MG Oral Capsule Cefdinir 300 MG Cefdinir 300 MG 02/09/2021 12:00:00 AM EDT suspended Cefdinir 300 MG eCW1 ([facility]) 300 mg 02/09/2021 12:00:00 AM EDT capsule 60 TAKE ONE CAPSULE BY MOUTH TWICE A DAY DIRECTED TAKE ONE CAPSULE BY MOUTH TWICE A DAY DIRECTED SOLD : 02/09/[address] [facility] cefdinir 300 MG Oral Capsule Cefdinir 300 MG Cefdinir 300 MG 02/09/2021 12:00:00 AM EDT active Cefdinir 300 MG eCW1 ([facility]) cefdinir 300 MG Oral Capsule Cefdinir 300 MG Cefdinir 300 MG 02/09/2021 12:00:00 AM EDT suspended Cefdinir 300 MG eCW1 ([facility]) cefdinir 300 MG Oral Capsule Cefdinir 300 MG Cefdinir 300 MG 02/09/2021 12:00:00 AM EDT active Cefdinir 300 MG eCW1 ([facility]) Cyclobenzaprine hydrochloride 10 MG Oral Tablet CYCLOBENZAPR INE HCL 02/09/2021 12:00:00 AM EDT tablet 90 TAKE ONE TABLET BY MOUTH THREE TIMES A DAY NEEDED FOR SPASMS AND PAIN TAKE ONE TABLET BY MOUTH THREE TIMES A D AY NEEDED FOR SPASMS AND PAIN SOLD: 02/09/[address] [facility] cefdinir 300 MG Oral Capsule Cefdinir 300 MG Cefdinir 300 MG 02/09/2021 12:00:00 AM EDT active Cefdinir 300 MG eCW1 ([facility]) cefdinir 300 MG Oral Capsule Cefdinir 300 MG Cefdinir 300 MG 02/09/2021 12:00:00 AM EDT active Cefdinir 300 MG eCW1 ([facility]) cefdinir 300 MG Oral Capsule Cefdinir 300 MG Cefdinir 300 MG 02/09/2021 12:00:00 AM EDT suspended Cefdinir 300 MG eCW1 ([facility]) cefdinir 300 MG Oral Capsule Cefdinir 300 MG Cefdinir 300 MG 02/09/2021 12:00:00 AM EDT suspended Cefdinir 300 MG eCW1 ([facility]) cefdinir 300 MG Oral Capsule Cefdinir 300 MG Cefdinir 300 MG 02/09/2021 12:00:00 AM EDT active Cefdinir 300 MG eCW1 ([facility]) cefdinir 300 MG Oral Capsule Cefdinir 300 MG Cefdinir 300 MG 02/09/2021 12:00:00 AM EDT suspended Cefdinir 300 MG eCW1 ([facility]) Atropine Sulfate 0.025 MG / Diphenoxylat e Hydrochloride 2.5 MG Oral Tablet 2.5- 0.025 mg DIPHENOXYLATE HCL/ATROPINE 02/09/2021 12:00:00 AM EDT tablet 60 TAKE 1 TABLET BY MOUTH UP TO TWICE A DAY FOR DIARRHEA (IF HAVING DIZZINESS AND LIGHT HEADED, HOLD AND CALL GI CLINIC) MAXIMUM DAILY DOSE = 2 TAKE 1 TABLET BY MOUTH UP TO TWICE A DAY FOR DIARRHEA (IF HAVING DIZZINESS AND LIGHT HEADED, HOLD AND CALL GI CLINIC) MAXIMUM DAILY DOSE = 2 SOLD: 02/09/[address] [facility] cefdinir 300 MG Oral Capsule Cefdinir 300 MG Cefdinir 300 MG 02/09/2021 12:00:00 AM EDT active Cefdinir 300 MG eCW1 ([facility]) cefdinir 300 MG Oral Capsule Cefdinir 300 MG Cefdinir 300 MG 02/09/2021 12:00:00 AM EDT suspended Cefdinir 300 MG eCW1 ([facility]) krill oil 300 MG Oral Capsule Krill Oil 02/01/2021 12:00:00 AM EDT ORAL active [facility] ([facility]) Fluocinonide 0.5 MG/ML Topical Cream Fluocinonide 02/01/2021 12:00: 00 AM EDT active [facility] ([facility]) Simethicone 80 MG Chewable Tablet [Mi-Acid Gas Relief] AZ-Ac id Gas Relief 02/01/2021 12:00:00 AM EDT ORAL active [facility] ([facility]) Atropine Sulfate 0.025 MG / Diphenoxylate Hydrochlorid e 2.5 MG Oral Tablet Diphenoxylate-Atropine 02/01/2021 12:00:00 AM EDT ORAL active [facility] ([facility]) Lutein 20 MG Oral Tablet Lutein 02/01/2021 12:00:00 AM EDT ORAL active [facility] ([facility] Cholecalciferol 5000 UNT Oral Tablet Vitamin D-3 02/01/2021 12:00:00 AM EDT ORAL active [facility] ([facility]) Vitamin B Complex 02/01/2021 12:00:00 AM EDT ORAL active [facility] ([facility]) Vitamin B 12 0.1 MG Oral Tablet Vitamin B12 02/01/2021 12:00:00 AM EDT ORAL active [facility] ([facility]) Pimecrolimus 10 MG/ML Topical Cream Pimecrolimus 02/01/2021 12:00:00 AM EDT active [facility] ([facility]) Fluocinolone Acetonide 0.1 MG/ML Topical Oil Fluocinolone Ac etonide Scalp 02/01/2021 12:00:00 AM EDT active [facility] ([facility]) Fluticasone Propionate/Salmeterol Fluticasone Propionate/Francisco Javier meterol 02/01/2021 12:00:00 AM EDT ORAL active M EDENT ([facility]) duloxetine 20 MG Delayed Release Oral Capsule Duloxetine HCL 02/01/2021 12:00:00 AM EDT ORAL active [facility] ([facility]) Acyclovir 400 MG Oral Tablet Acyclovir 02/01/2021 12:00:00 AM EDT ORAL active [facility] ([facility]) Estradiol 0.1 MG/ML Vaginal Cream [Estrace] Estrace 01/09 12:00:00 AM EDT active [facility] ( [facility]) Estradiol 1 MG Oral Tablet Estradiol 02/01/2021 12:00:00 AM EDT ORAL active [facility] ([facility]) Ketotifen 0.25 MG/ML Ophthalmic Solution Ketotifen Fumarate 02/01/2021 12:00:00 AM EDT active [facility] ([facility]) Triamcinolone Acetonide Triamcinolone Acetonide 02/01/2021 12:00:00 A M EDT RESPIRATORY active [facility] ( [facility]) Furosemide 40 MG Oral Tablet [Lasix] Lasix 02/01/2021 12:00:00 AM EDT active [facility] pantoprazole 40 MG Delayed Release Oral Tablet Pantoprazole Sodium 02/01/2021 12:00:00 AM EDT ORAL active M [facility] ([facility]) Cholestyramine Resin 66.7 MG/ML Oral Suspension Cholestyrami ne 02/01/2021 12:00:00 AM EDT active M [facility]ENT ([facility]) 40 mg 01/25/2021 12:00:00 AM EDT tablet 30 TAKE ONE TABLET BY MOUTH EVERY DAY TAKE ONE TABLET BY MOUTH EVERY DAY SOLD: 01/27/2021 [facility] Atropine Sulfate 0.025 MG / Diphenoxylat e Hydrochloride 2.5 MG Oral Tablet 2.5- 0.025 mg DIPHENOXYLATE HCL/ATROPINE 01/06/2021 12:00:00 AM EDT tablet 60 TAKE 1 TABLET BY MOUTH UP TO TWICE DAILY FOR DIARRHEA MAXIMUM DAILY DOSE = 2 TABLETS TAKE 1 TABLET BY MOUTH UP TO TWICE DAILY FOR DIARRHEA MAXIMUM DAILY DOSE = 2 TABLETS SOLD: 01/06/2021 [facility] 80 mg 01/06/2021 12:00:00 AM EDT tablet,chewable 90 CHEW 1 TABLET BY MOUTH 2-3 TIMES DAILY AFTER MEALS NEEDED FOR BLOATING CHEW 1 TABLET BY MOUTH 2-3 TIMES DAILY AFTER MEALS NEEDED FOR BLOATING SOLD: 01/06/2021 [facility] 80 mg 01/06/2021 12:00:00 AM EDT tablet,chewable 90 CHEW 1 TABLET BY MOUTH 2-3 TIMES DAILY AFTER MEALS NEEDED FOR BLOATING CHEW 1 TABLET BY MOUTH 2-3 TIMES DAILY AFTER MEALS NEEDED FOR BLOATING SOLD: 02/03/2021 [facility] atorvastatin 20 MG Oral Tablet Atorvastatin Calcium 20 MG Atorvastatin Calcium 20 MG 01/05/2021 12:00:00 AM EDT 1.0 {tablet} activ e Atorvastatin Calcium 20 MG eCW1 ([facility]) Aspirin 81 MG Delayed Release Oral Tablet Aspirin 81 MG 01/05/2021 12:00:00 AM EDT 1.0 {tablet} active Aspirin 81 MG eCW1 ([facility]) Aspirin 81 MG Delayed Release Oral Tablet Aspirin 81 MG 01/05/2021 12:00:00 AM EDT 1.0 {tablet} active Aspirin 81 MG eCW1 ([facility]) Aspirin 81 MG Delayed Release Oral Tablet Aspirin 81 MG 01/05/2021 12:00:00 AM EDT 1.0 {tablet} active Aspirin 81 MG eCW1 ([facility]) Aspirin 81 MG Delayed Release Oral Tablet Aspirin 81 MG 01/05/2021 12:00:00 AM EDT 1.0 {tablet} active Aspirin 81 MG eCW1 ([facility]) atorvastatin 20 MG Oral Tablet Atorvastatin Calcium 20 MG Atorvastatin Calcium 20 MG 01/05/2021 12:00:00 AM EDT 1.0 {tablet} activ e Atorvastatin Calcium 20 MG eCW1 ([facility]) Aspirin 81 MG Delayed Release Oral Tablet Aspirin 81 MG 01/05/2021 12:00:00 AM EDT 1.0 {tablet} active Aspirin 81 MG eCW1 ([facility]) Aspirin 81 MG Delayed Release Oral Tablet Aspirin 81 MG 01/05/2021 12:00:00 AM EDT 1.0 {tablet} active Aspirin 81 MG eCW1 ([facility]) atorvastatin 20 MG Oral Tablet Atorvastatin Calcium 20 MG Atorvastatin Calcium 20 MG 01/05/2021 12:00:00 AM EDT 1.0 {tablet} activ e Atorvastatin Calcium 20 MG eCW1 ([facility]) Aspirin 81 MG Delayed Release Oral Tablet Aspirin 81 MG 01/05/2021 12:00:00 AM EDT 1.0 {tablet} active Aspirin 81 MG eCW1 ([facility]) Aspirin 81 MG Delayed Release Oral Tablet Aspirin 81 MG 01/05/2021 12:00:00 AM EDT 1.0 {tablet} active Aspirin 81 MG eCW1 ([facility]) Aspirin 81 MG Delayed Release Oral Tablet Aspirin 81 MG 01/05/2021 12:00:00 AM EDT 1.0 {tablet} active Aspirin 81 MG eCW1 ([facility]) 81 mg 01/05/2021 12:00:00 AM EDT tablet,delayed release (DR/EC) 30 TAKE ONE TABLET BY MOUTH EVERY DAY TAKE ONE TABLET BY MOUTH EVERY DAY SOLD: 02/03/2021 [facility] Aspirin 81 MG Delayed Release Oral Tablet Aspirin 81 MG 01/05/2021 12:00:00 AM EDT 1.0 {tablet} active Aspirin 81 MG eCW1 ([facility]) Aspirin 81 MG Delayed Release Oral Tablet Aspirin 81 MG 01/05/2021 12:00:00 AM EDT 1.0 {tablet} active Aspirin 81 MG eCW1 ([facility]) atorvastatin 20 MG Oral Tablet Atorvastatin Calcium 20 MG Atorvastatin Calcium 20 MG 01/05/2021 12:00:00 AM EDT 1.0 {tablet} activ e Atorvastatin Calcium 20 MG eCW1 ([facility]) Aspirin 81 MG Delayed Release Oral Tablet Aspirin 81 MG 01/05/2021 12:00:00 AM EDT 1.0 {tablet} active Aspirin 81 MG eCW1 ([facility]) atorvastatin 20 MG Oral Tablet Atorvastatin Calcium 20 MG Atorvastatin Calcium 20 MG 01/05/2021 12:00:00 AM EDT 1.0 {tablet} activ e Atorvastatin Calcium 20 MG eCW1 ([facility]) 81 mg 01/05/2021 12:00:00 AM EDT tablet,delayed release (DR/EC) 30 TAKE ONE TABLET BY MOUTH EVERY DAY TAKE ONE TABLET BY MOUTH EVERY DAY SOLD: 03/04/2021 [facility] atorvastatin 20 MG Oral Tablet Atorvastatin Calcium 20 MG Atorvastatin Calcium 20 MG 01/05/2021 12:00:00 AM EDT 1.0 {tablet} activ e Atorvastatin Calcium 20 MG eCW1 ([facility]) Aspirin 81 MG Delayed Release Oral Tablet Aspirin 81 MG 01/05/2021 12:00:00 AM EDT 1.0 {tablet} active Aspirin 81 MG eCW1 ([facility]) Aspirin 81 MG Delayed Release Oral Tablet Aspirin 81 MG 01/05/2021 12:00:00 AM EDT 1.0 {tablet} active Aspirin 81 MG eCW1 ([facility]) atorvastatin 20 MG Oral Tablet Atorvastatin Calcium 20 MG Atorvastatin Calcium 20 MG 01/05/2021 12:00:00 AM EDT 1.0 {tablet} activ e Atorvastatin Calcium 20 MG eCW1 ([facility]) 81 mg 01/05/2021 12:00:00 AM EDT tablet,delayed release (DR/EC) 30 TAKE ONE TABLET BY MOUTH EVERY DAY TAKE ONE TABLET BY MOUTH EVERY DAY SOLD: 03/25/2021 [facility] Aspirin 81 MG Delayed Release Oral Tablet Aspirin 81 MG 01/05/2021 12:00:00 AM EDT 1.0 {tablet} active Aspirin 81 MG eCW1 ([facility]) Aspirin 81 MG Delayed Release Oral Tablet Aspirin 81 MG 01/05/2021 12:00:00 AM EDT 1.0 {tablet} active Aspirin 81 MG eCW1 ([facility]) atorvastatin 20 MG Oral Tablet Atorvastatin Calcium 20 MG Atorvastatin Calcium 20 MG 01/05/2021 12:00:00 AM EDT 1.0 {tablet} activ e Atorvastatin Calcium 20 MG eCW1 ([facility]) 81 mg 01/05/2021 12:00:00 AM EDT tablet,delayed release (DR/EC) 30 TAKE ONE TABLET BY MOUTH EVERY DAY TAKE ONE TABLET BY MOUTH EVERY DAY SOLD: 04/29/2021 [facility] Simethicone 80 MG Chewable Tablet Simethicone 01/05/2021 12:00:00 AM E DT completed MED[facility] ([facility] ) Aspirin 81 MG Delayed Release Oral Tablet Aspirin 81 MG 01/05/2021 12:00:00 AM EDT 1.0 {tablet} active Aspirin 81 MG eCW1 ([facility]) 0.01 % 01/05/2021 12:00:00 AM EDT solution 60 APPLY TWO TIMES A DAY FOR 14 DAYS APPLY TWO TIMES A DAY FOR 14 DAYS SOLD: 02/04/2021 [facility] Aspirin 81 MG Delayed Release Oral Tablet Aspirin 81 MG 01/05/2021 12:00:00 AM EDT 1.0 {tablet} active Aspirin 81 MG eCW1 ([facility]) atorvastatin 20 MG Oral Tablet Atorvastatin Calcium 20 MG Atorvastatin Calcium 20 MG 01/05/2021 12:00:00 AM EDT 1.0 {tablet} activ e Atorvastatin Calcium 20 MG eCW1 ([facility]) atorvastatin 20 MG Oral Tablet Atorvastatin Calcium 20 MG Atorvastatin Calcium 20 MG 01/05/2021 12:00:00 AM EDT 1.0 {tablet} activ e Atorvastatin Calcium 20 MG eCW1 ([facility]) atorvastatin 20 MG Oral Tablet Atorvastatin Calcium 20 MG Atorvastatin Calcium 20 MG 01/05/2021 12:00:00 AM EDT 1.0 {tablet} activ e Atorvastatin Calcium 20 MG eCW1 ([facility]) atorvastatin 20 MG Oral Tablet Atorvastatin Calcium 01/05/2021 1 2:00:00 AM EDT active [facility] ( [facility] atorvastatin 20 MG Oral Tablet Atorvastatin Calcium 20 MG Atorvastatin Calcium 20 MG 01/05/2021 12:00:00 AM EDT 1.0 {tablet} activ e Atorvastatin Calcium 20 MG eCW1 ([facility]) Aspirin 81 MG Delayed Release Oral Tablet Aspirin 01/05/2021 1 2:00:00 AM EDT active [facility] ([facility]) Aspirin 81 MG Delayed Release Oral Tablet Aspirin 81 MG 01/05/2021 12:00:00 AM EDT 1.0 {tablet} active Aspirin 81 MG eCW1 ([facility]) Aspirin 81 MG Delayed Release Oral Tablet Aspirin 81 MG 01/05/2021 12:00:00 AM EDT 1.0 {tablet} active Aspirin 81 MG eCW1 ([facility]) atorvastatin 20 MG Oral Tablet ATORVASTATIN CALCIUM 01/05/2021 1 2:00:00 AM EDT tablet 90 TAKE ONE TABLET BY MOUTH EVERY D AY TAKE ONE TABLET BY MOUTH EVERY DAY SOLD: 04/28/2021 [facility] 1 % 01/05/2021 12:00:00 AM EDT cream 30 APPLY TOPICALLY TO FULL FACE EVERY MORNING APPLY TOPICALLY TO FULL FACE EVERY MORNING SOLD: 02/03/2021 [facility] atorvastatin 20 MG Oral Tablet Atorvastatin Calcium 20 MG Atorvastatin Calcium 20 MG 01/05/2021 12:00:00 AM EDT 1.0 {tablet} activ e Atorvastatin Calcium 20 MG eCW1 ([facility]) atorvastatin 20 MG Oral Tablet Atorvastatin Calcium 20 MG Atorvastatin Calcium 20 MG 01/05/2021 12:00:00 AM EDT 1.0 {tablet} activ e Atorvastatin Calcium 20 MG eCW1 ([facility]) atorvastatin 20 MG Oral Tablet Atorvastatin Calcium 20 MG Atorvastatin Calcium 20 MG 01/05/2021 12:00:00 AM EDT 1.0 {tablet} activ e Atorvastatin Calcium 20 MG eCW1 ([facility]) atorvastatin 20 MG Oral Tablet Atorvastatin Calcium 20 MG Atorvastatin Calcium 20 MG 01/05/2021 12:00:00 AM EDT 1.0 {tablet} activ e Atorvastatin Calcium 20 MG eCW1 ([facility]) Aspirin 81 MG Delayed Release Oral Tablet Aspirin 81 MG 01/05/2021 12:00:00 AM EDT 1.0 {tablet} active Aspirin 81 MG eCW1 ([facility]) atorvastatin 20 MG Oral Tablet Atorvastatin Calcium 20 MG Atorvastatin Calcium 20 MG 01/05/2021 12:00:00 AM EDT 1.0 {tablet} activ e Atorvastatin Calcium 20 MG eCW1 ([facility]) atorvastatin 20 MG Oral Tablet Atorvastatin Calcium 20 MG Atorvastatin Calcium 20 MG 01/05/2021 12:00:00 AM EDT 1.0 {tablet} activ e Atorvastatin Calcium 20 MG eCW1 ([facility]) atorvastatin 20 MG Oral Tablet Atorvastatin Calcium 20 MG Atorvastatin Calcium 20 MG 01/05/2021 12:00:00 AM EDT 1.0 {tablet} activ e Atorvastatin Calcium 20 MG eCW1 ([facility]) Aspirin 81 MG Delayed Release Oral Tablet Aspirin 81 MG 01/05/2021 12:00:00 AM EDT 1.0 {tablet} active Aspirin 81 MG eCW1 ([facility]) Aspirin 81 MG Delayed Release Oral Tablet Aspirin 81 MG 01/05/2021 12:00:00 AM EDT 1.0 {tablet} active Aspirin 81 MG eCW1 ([facility]) atorvastatin 20 MG Oral Tablet Atorvastatin Calcium 20 MG Atorvastatin Calcium 20 MG 01/05/2021 12:00:00 AM EDT 1.0 {tablet} activ e Atorvastatin Calcium 20 MG eCW1 ([facility]) Aspirin 81 MG Delayed Release Oral Tablet Aspirin 81 MG 01/05/2021 12:00:00 AM EDT 1.0 {tablet} active Aspirin 81 MG eCW1 ([facility]) atorvastatin 20 MG Oral Tablet ATORVASTATIN CALCIUM 01/05/2021 1 2:00:00 AM EDT tablet 90 TAKE ONE TABLET BY MOUTH EVERY D AY TAKE ONE TABLET BY MOUTH EVERY DAY SOLD: 01/05/[facility] atorvastatin 20 MG Oral Tablet Atorvastatin Calcium 20 MG Atorvastatin Calcium 20 MG 01/05/2021 12:00:00 AM EDT 1.0 {tablet} activ e Atorvastatin Calcium 20 MG eCW1 ([facility]) Aspirin 81 MG Delayed Release Oral Tablet Aspirin 81 MG 01/05/2021 12:00:00 AM EDT 1.0 {tablet} active Aspirin 81 MG eCW1 ([facility]) Aspirin 81 MG Delayed Release Oral Tablet Aspirin 81 MG 01/05/2021 12:00:00 AM EDT 1.0 {tablet} active Aspirin 81 MG eCW1 ([facility]) Aspirin 81 MG Delayed Release Oral Tablet Aspirin 81 MG 01/05/2021 12:00:00 AM EDT 1.0 {tablet} active Aspirin 81 MG eCW1 ([facility]) atorvastatin 20 MG Oral Tablet Atorvastatin Calcium 20 MG Atorvastatin Calcium 20 MG 01/05/2021 12:00:00 AM EDT 1.0 {tablet} activ e Atorvastatin Calcium 20 MG eCW1 ([facility]) atorvastatin 20 MG Oral Tablet Atorvastatin Calcium 20 MG Atorvastatin Calcium 20 MG 01/05/2021 12:00:00 AM EDT 1.0 {tablet} activ e Atorvastatin Calcium 20 MG eCW1 ([facility]) 81 mg 01/05/2021 12:00:00 AM EDT tablet,delayed release (DR/EC) 30 TAKE ONE TABLET BY MOUTH EVERY DAY TAKE ONE TABLET BY MOUTH EVERY DAY SOLD: 01/05/[address]21 [facility] Aspirin 81 MG Delayed Release Oral Tablet Aspirin 81 MG 01/05/2021 12:00:00 AM EDT 1.0 {tablet} active Aspirin 81 MG eCW1 ([facility]) atorvastatin 20 MG Oral Tablet Atorvastatin Calcium 20 MG Atorvastatin Calcium 20 MG 01/05/2021 12:00:00 AM EDT 1.0 {tablet} activ e Atorvastatin Calcium 20 MG eCW1 ([facility]) Aspirin 81 MG Delayed Release Oral Tablet Aspirin 81 MG 01/05/2021 12:00:00 AM EDT 1.0 {tablet} active Aspirin 81 MG eCW1 ([facility]) Aspirin 81 MG Delayed Release Oral Tablet Aspirin 81 MG 01/05/2021 12:00:00 AM EDT 1.0 {tablet} active Aspirin 81 MG eCW1 ([facility]) atorvastatin 20 MG Oral Tablet Atorvastatin Calcium 20 MG Atorvastatin Calcium 20 MG 01/05/2021 12:00:00 AM EDT 1.0 {tablet} activ e Atorvastatin Calcium 20 MG eCW1 ([facility]) Aspirin 81 MG Delayed Release Oral Tablet Aspirin 81 MG 01/05/2021 12:00:00 AM EDT 1.0 {tablet} active Aspirin 81 MG eCW1 ([facility]) Aspirin 81 MG Delayed Release Oral Tablet Aspirin 81 MG 01/05/2021 12:00:00 AM EDT 1.0 {tablet} active Aspirin 81 MG eCW1 ([facility]) 81 mg 01/05/2021 12:00:00 AM EDT tablet,delayed release (DR/EC) 30 TAKE ONE TABLET BY MOUTH EVERY DAY TAKE ONE TABLET BY MOUTH EVERY DAY SOLD: 06/09/2021 [facility] Aspirin 81 MG Delayed Release Oral Tablet Aspirin 81 MG 01/05/2021 12:00:00 AM EDT 1.0 {tablet} active Aspirin 81 MG eCW1 ([facility]) atorvastatin 20 MG Oral Tablet Atorvastatin Calcium 20 MG Atorvastatin Calcium 20 MG 01/05/2021 12:00:00 AM EDT 1.0 {tablet} activ e Atorvastatin Calcium 20 MG eCW1 ([facility]) Aspirin 81 MG Delayed Release Oral Tablet Aspirin 81 MG 01/05/2021 12:00:00 AM EDT 1.0 {tablet} active Aspirin 81 MG eCW1 ([facility]) Aspirin 81 MG Delayed Release Oral Tablet Aspirin 81 MG 01/05/2021 12:00:00 AM EDT 1.0 {tablet} active Aspirin 81 MG eCW1 ([facility]) atorvastatin 20 MG Oral Tablet Atorvastatin Calcium 20 MG Atorvastatin Calcium 20 MG 01/05/2021 12:00:00 AM EDT 1.0 {tablet} activ e Atorvastatin Calcium 20 MG eCW1 ([facility]) Aspirin 81 MG Delayed Release Oral Tablet Aspirin 81 MG 01/05/2021 12:00:00 AM EDT 1.0 {tablet} active Aspirin 81 MG eCW1 ([facility]) atorvastatin 20 MG Oral Tablet Atorvastatin Calcium 20 MG Atorvastatin Calcium 20 MG 01/05/2021 12:00:00 AM EDT 1.0 {tablet} activ e Atorvastatin Calcium 20 MG eCW1 ([facility]) Aspirin 81 MG Delayed Release Oral Tablet Aspirin 81 MG 01/05/2021 12:00:00 AM EDT 1.0 {tablet} active Aspirin 81 MG eCW1 ([facility]) atorvastatin 20 MG Oral Tablet Atorvastatin Calcium 20 MG Atorvastatin Calcium 20 MG 01/05/2021 12:00:00 AM EDT 1.0 {tablet} activ e Atorvastatin Calcium 20 MG eCW1 ([facility]) atorvastatin 20 MG Oral Tablet Atorvastatin Calcium 20 MG Atorvastatin Calcium 20 MG 01/05/2021 12:00:00 AM EDT 1.0 {tablet} activ e Atorvastatin Calcium 20 MG eCW1 ([facility]) atorvastatin 20 MG Oral Tablet Atorvastatin Calcium 20 MG Atorvastatin Calcium 20 MG 01/05/2021 12:00:00 AM EDT 1.0 {tablet} activ e Atorvastatin Calcium 20 MG eCW1 ([facility]) atorvastatin 20 MG Oral Tablet Atorvastatin Calcium 20 MG Atorvastatin Calcium 20 MG 01/05/2021 12:00:00 AM EDT 1.0 {tablet} activ e Atorvastatin Calcium 20 MG eCW1 ([facility]) atorvastatin 20 MG Oral Tablet Atorvastatin Calcium 20 MG Atorvastatin Calcium 20 MG 01/05/2021 12:00:00 AM EDT 1.0 {tablet} activ e Atorvastatin Calcium 20 MG eCW1 ([facility]) Aspirin 81 MG Delayed Release Oral Tablet Aspirin 81 MG 01/05/2021 12:00:00 AM EDT 1.0 {tablet} active Aspirin 81 MG eCW1 ([facility]) atorvastatin 20 MG Oral Tablet Atorvastatin Calcium 20 MG Atorvastatin Calcium 20 MG 01/05/2021 12:00:00 AM EDT 1.0 {tablet} activ e Atorvastatin Calcium 20 MG eCW1 ([facility]) atorvastatin 20 MG Oral Tablet Atorvastatin Calcium 20 MG Atorvastatin Calcium 20 MG 01/05/2021 12:00:00 AM EDT 1.0 {tablet} activ e Atorvastatin Calcium 20 MG eCW1 ([facility]) 0.01 % 01/05/2021 12:00:00 AM EDT solution 60 APPLY TWO TIMES A DAY FOR 14 DAYS APPLY TWO TIMES A DAY FOR 14 DAYS SOLD: 01/06/2021 [facility] Aspirin 81 MG Delayed Release Oral Tablet Aspirin 81 MG 01/05/2021 12:00:00 AM EDT 1.0 {tablet} active Aspirin 81 MG eCW1 ([facility]) atorvastatin 20 MG Oral Tablet Atorvastatin Calcium 20 MG Atorvastatin Calcium 20 MG 01/05/2021 12:00:00 AM EDT 1.0 {tablet} activ e Atorvastatin Calcium 20 MG eCW1 ([facility]) 1 % 01/05/2021 12:00:00 AM EDT cream 30 APPLY TOPICALLY TO FULL FACE EVERY MORNING APPLY TOPICALLY TO FULL FACE EVERY MORNING SOLD: 01/05/2021 [facility] atorvastatin 20 MG Oral Tablet Atorvastatin Calcium 20 MG Atorvastatin Calcium 20 MG 01/05/2021 12:00:00 AM EDT 1.0 {tablet} activ e Atorvastatin Calcium 20 MG eCW1 ([facility]) Aspirin 81 MG Delayed Release Oral Tablet Aspirin 81 MG 01/05/2021 12:00:00 AM EDT 1.0 {tablet} active Aspirin 81 MG eCW1 ([facility]) Aspirin 81 MG Delayed Release Oral Tablet Aspirin 81 MG 01/05/2021 12:00:00 AM EDT 1.0 {tablet} active Aspirin 81 MG eCW1 ([facility]) Aspirin 81 MG Delayed Release Oral Tablet Aspirin 81 MG 01/05/2021 12:00:00 AM EDT 1.0 {tablet} active Aspirin 81 MG eCW1 ([facility]) atorvastatin 20 MG Oral Tablet Atorvastatin Calcium 20 MG Atorvastatin Calcium 20 MG 01/05/2021 12:00:00 AM EDT 1.0 {tablet} activ e Atorvastatin Calcium 20 MG eCW1 ([facility]) Aspirin 81 MG Delayed Release Oral Tablet Aspirin 81 MG 01/05/2021 12:00:00 AM EDT 1.0 {tablet} active Aspirin 81 MG eCW1 ([facility]) atorvastatin 20 MG Oral Tablet Atorvastatin Calcium 20 MG Atorvastatin Calcium 20 MG 01/05/2021 12:00:00 AM EDT 1.0 {tablet} activ e Atorvastatin Calcium 20 MG eCW1 ([facility]) atorvastatin 20 MG Oral Tablet Atorvastatin Calcium 20 MG Atorvastatin Calcium 20 MG 01/05/2021 12:00:00 AM EDT 1.0 {tablet} activ e Atorvastatin Calcium 20 MG eCW1 ([facility]) Aspirin 81 MG Delayed Release Oral Tablet Aspirin 81 MG 01/05/2021 12:00:00 AM EDT 1.0 {tablet} active Aspirin 81 MG eCW1 ([facility]) atorvastatin 20 MG Oral Tablet Atorvastatin Calcium 20 MG Atorvastatin Calcium 20 MG 01/05/2021 12:00:00 AM EDT 1.0 {tablet} activ e Atorvastatin Calcium 20 MG eCW1 ([facility]) atorvastatin 20 MG Oral Tablet Atorvastatin Calcium 20 MG Atorvastatin Calcium 20 MG 01/05/2021 12:00:00 AM EDT 1.0 {tablet} activ e Atorvastatin Calcium 20 MG eCW1 ([facility]) 0.01 % (0.1 mg/gram) 01/04/2021 12:00:00 AM EDT cream 42 APPLY 0.5GM VAGINALLY TWICE WEEKLY APPLY 0.5GM VAGINALLY TWICE WEEKLY SOLD: 01/05/2021 [facility] 0.01 % (0.1 mg/gram) 01/04/2021 12:00:00 AM EDT cream 42 APPLY 0.5GM VAGINALLY TWICE WEEKLY APPLY 0.5GM VAGINALLY TWICE WEEKLY SOLD: 04/29/2021 [facility] Fluocinolone Acetonide 0.1 MG/ML Topical Solution Fluo cinolone Acetonide 0.01 % Fluocinolone Acetonide 0.01 % 01/04/2021 12:00:00 AM EDT 1.0 {appli cation} active Fluocinolone Acetonide 0. 01 % eCW1 ([facility]) Fluocinolone Acetonide 0.1 MG/ML Topical Solution Fluo cinolone Acetonide 0.01 % Fluocinolone Acetonide 0.01 % 01/04/2021 12:00:00 AM EDT 1.0 {appli cation} active Fluocinolone Acetonide 0. 01 % eCW1 ([facility]) Fluocinolone Acetonide 0.1 MG/ML Topical Solution Fluo cinolone Acetonide 0.01 % Fluocinolone Acetonide 0.01 % 01/04/2021 12:00:00 AM EDT 1.0 {appli cation} active Fluocinolone Acetonide 0. 01 % eCW1 ([facility]) Fluocinolone Acetonide 0.1 MG/ML Topical Solution Fluo cinolone Acetonide 0.01 % Fluocinolone Acetonide 0.01 % 01/04/2021 12:00:00 AM EDT 1.0 {appli cation} active Fluocinolone Acetonide 0. 01 % eCW1 ([facility]) Fluocinolone Acetonide 0.1 MG/ML Topical Solution Fluo cinolone Acetonide 0.01 % Fluocinolone Acetonide 0.01 % 01/04/2021 12:00:00 AM EDT 1.0 {appli cation} active Fluocinolone Acetonide 0. 01 % eCW1 ([facility]) Fluocinolone Acetonide 0.1 MG/ML Topical Solution Fluo cinolone Acetonide 0.01 % Fluocinolone Acetonide 0.01 % 01/04/2021 12:00:00 AM EDT 1.0 {appli cation} active Fluocinolone Acetonide 0. 01 % eCW1 ([facility]) Fluocinolone Acetonide 0.1 MG/ML Topical Solution Fluo cinolone Acetonide 0.01 % Fluocinolone Acetonide 0.01 % 01/04/2021 12:00:00 AM EDT 1.0 {appli cation} active Fluocinolone Acetonide 0. 01 % eCW1 ([facility]) Fluocinolone Acetonide 0.1 MG/ML Topical Solution Fluo cinolone Acetonide 0.01 % Fluocinolone Acetonide 0.01 % 01/04/2021 12:00:00 AM EDT 1.0 {appli cation} active Fluocinolone Acetonide 0. 01 % eCW1 ([facility]) Fluocinolone Acetonide 0.1 MG/ML Topical Solution Fluo cinolone Acetonide 0.01 % Fluocinolone Acetonide 0.01 % 01/04/2021 12:00:00 AM EDT 1.0 {appli cation} active Fluocinolone Acetonide 0. 01 % eCW1 ([facility]) Fluocinolone Acetonide 0.1 MG/ML Topical Solution Fluo cinolone Acetonide 0.01 % Fluocinolone Acetonide 0.01 % 01/04/2021 12:00:00 AM EDT 1.0 {appli cation} active Fluocinolone Acetonide 0. 01 % eCW1 ([facility]) Fluocinolone Acetonide 0.1 MG/ML Topical Solution Fluo cinolone Acetonide 0.01 % Fluocinolone Acetonide 0.01 % 01/04/2021 12:00:00 AM EDT 1.0 {appli cation} active Fluocinolone Acetonide 0. 01 % eCW1 ([facility]) Fluocinolone Acetonide 0.1 MG/ML Topical Solution Fluo cinolone Acetonide 0.01 % Fluocinolone Acetonide 0.01 % 01/04/2021 12:00:00 AM EDT 1.0 {appli cation} active Fluocinolone Acetonide 0. 01 % eCW1 ([facility]) Fluocinolone Acetonide 0.1 MG/ML Topical Solution Fluo cinolone Acetonide 0.01 % Fluocinolone Acetonide 0.01 % 01/04/2021 12:00:00 AM EDT 1.0 {appli cation} active Fluocinolone Acetonide 0. 01 % eCW1 ([facility]) Fluocinolone Acetonide 0.1 MG/ML Topical Solution Fluo cinolone Acetonide 0.01 % Fluocinolone Acetonide 0.01 % 01/04/2021 12:00:00 AM EDT 1.0 {appli cation} active Fluocinolone Acetonide 0. 01 % eCW1 ([facility]) Fluocinolone Acetonide 0.1 MG/ML Topical Solution Fluo cinolone Acetonide 0.01 % Fluocinolone Acetonide 0.01 % 01/04/2021 12:00:00 AM EDT 1.0 {appli cation} active Fluocinolone Acetonide 0. 01 % eCW1 ([facility]) Fluocinolone Acetonide 0.1 MG/ML Topical Solution Fluo cinolone Acetonide 0.01 % Fluocinolone Acetonide 0.01 % 01/04/2021 12:00:00 AM EDT 1.0 {appli cation} active Fluocinolone Acetonide 0. 01 % eCW1 ([facility]) Fluocinolone Acetonide 0.1 MG/ML Topical Solution Fluo cinolone Acetonide 0.01 % Fluocinolone Acetonide 0.01 % 01/04/2021 12:00:00 AM EDT 1.0 {appli cation} active Fluocinolone Acetonide 0. 01 % eCW1 ([facility]) Pimecrolimus 10 MG/ML Topical Cream [Elidel] Elidel 1 % Elid el 1 % 12/29/2020 12:00:00 AM EDT 1.0 {application} suspended Elidel 1 % eCW1 ([facility]) azelaic acid 200 MG/ML Topical Cream [Azelex] Azelex 20 % Az elex 20 % 12/29/2020 12:00:00 AM EDT 1.0 {application} suspended Azelex 20 % eCW1 ([facility]) azelaic acid 200 MG/ML Topical Cream [Azelex] Azelex 20 % Az elex 20 % 12/29/2020 12:00:00 AM EDT 1.0 {application} active Azelex 20 % eCW1 ([facility]) Fluocinonide 0.5 MG/ML Topical Solution Fluocinonide 0.05 % Fluocinonide 0.05 % 12/29/2020 12:00:00 AM EDT 1.0 {application} act julia Fluocinonide 0.05 % eCW1 ([facility]) Pimecrolimus 10 MG/ML Topical Cream [Elidel] Elidel 1 % Elid el 1 % 12/29/2020 12:00:00 AM EDT 1.0 {application} suspended Elidel 1 % eCW1 ([facility]) Fluocinonide 0.5 MG/ML Topical Solution Fluocinonide 0.05 % Fluocinonide 0.05 % 12/29/2020 12:00:00 AM EDT 1.0 {application} act julia Fluocinonide 0.05 % eCW1 ([facility]) azelaic acid 200 MG/ML Topical Cream [Azelex] Azelex 20 % Az elex 20 % 12/29/2020 12:00:00 AM EDT 1.0 {application} active Azelex 20 % eCW1 ([facility]) Pimecrolimus 10 MG/ML Topical Cream [Elidel] Elidel 1 % Elid el 1 % 12/29/2020 12:00:00 AM EDT 1.0 {application} active Elidel 1 % eCW1 ([facility]) Fluocinonide 0.5 MG/ML Topical Solution Fluocinonide 0.05 % Fluocinonide 0.05 % 12/29/2020 12:00:00 AM EDT 1.0 {application} act julia Fluocinonide 0.05 % eCW1 ([facility]) azelaic acid 200 MG/ML Topical Cream [Azelex] Azelex 20 % Az elex 20 % 12/29/2020 12:00:00 AM EDT 1.0 {application} suspended Azelex 20 % eCW1 ([facility]) azelaic acid 200 MG/ML Topical Cream [Azelex] Azelex 20 % Az elex 20 % 12/29/2020 12:00:00 AM EDT 1.0 {application} active Azelex 20 % eCW1 ([facility]) Fluocinonide 0.5 MG/ML Topical Solution Fluocinonide 0.05 % Fluocinonide 0.05 % 12/29/2020 12:00:00 AM EDT 1.0 {application} act julia Fluocinonide 0.05 % eCW1 ([facility]) azelaic acid 200 MG/ML Topical Cream [Azelex] Azelex 20 % Az elex 20 % 12/29/2020 12:00:00 AM EDT 1.0 {application} suspended Azelex 20 % eCW1 ([facility]) Pimecrolimus 10 MG/ML Topical Cream [Elidel] Elidel 1 % Elid el 1 % 12/29/2020 12:00:00 AM EDT 1.0 {application} suspended Elidel 1 % eCW1 ([facility]) Fluocinonide 0.5 MG/ML Topical Solution Fluocinonide 0.05 % Fluocinonide 0.05 % 12/29/2020 12:00:00 AM EDT 1.0 {application} act julia Fluocinonide 0.05 % eCW1 ([facility]) azelaic acid 200 MG/ML Topical Cream [Azelex] Azelex 20 % Az elex 20 % 12/29/2020 12:00:00 AM EDT 1.0 {application} suspended Azelex 20 % eCW1 ([facility]) azelaic acid 200 MG/ML Topical Cream [Azelex] Azelex 20 % Az elex 20 % 12/29/2020 12:00:00 AM EDT 1.0 {application} active Azelex 20 % eCW1 ([facility]) Pimecrolimus 10 MG/ML Topical Cream [Elidel] Elidel 1 % Elid el 1 % 12/29/2020 12:00:00 AM EDT 1.0 {application} suspended Elidel 1 % eCW1 ([facility]) Pimecrolimus 10 MG/ML Topical Cream [Elidel] Elidel 1 % Elid el 1 % 12/29/2020 12:00:00 AM EDT 1.0 {application} active Elidel 1 % eCW1 ([facility]) Pimecrolimus 10 MG/ML Topical Cream [Elidel] Elidel 1 % Elid el 1 % 12/29/2020 12:00:00 AM EDT 1.0 {application} active Elidel 1 % eCW1 ([facility]) azelaic acid 200 MG/ML Topical Cream [Azelex] Azelex 20 % Az elex 20 % 12/29/2020 12:00:00 AM EDT 1.0 {application} active Azelex 20 % eCW1 ([facility]) azelaic acid 200 MG/ML Topical Cream [Azelex] Azelex 20 % Az elex 20 % 12/29/2020 12:00:00 AM EDT 1.0 {application} active Azelex 20 % eCW1 ([facility]) Pimecrolimus 10 MG/ML Topical Cream [Elidel] Elidel 1 % Elid el 1 % 12/29/2020 12:00:00 AM EDT 1.0 {application} active Elidel 1 % eCW1 ([facility]) Fluocinonide 0.5 MG/ML Topical Solution Fluocinonide 0.05 % Fluocinonide 0.05 % 12/29/2020 12:00:00 AM EDT 1.0 {application} act julia Fluocinonide 0.05 % eCW1 ([facility]) Pimecrolimus 10 MG/ML Topical Cream [Elidel] Elidel 1 % Elid el 1 % 12/29/2020 12:00:00 AM EDT 1.0 {application} active Elidel 1 % eCW1 ([facility]) azelaic acid 200 MG/ML Topical Cream [Azelex] Azelex 20 % Az elex 20 % 12/29/2020 12:00:00 AM EDT 1.0 {application} suspended Azelex 20 % eCW1 ([facility]) Pimecrolimus 10 MG/ML Topical Cream [Elidel] Elidel 1 % Elid el 1 % 12/29/2020 12:00:00 AM EDT 1.0 {application} suspended Elidel 1 % eCW1 ([facility]) azelaic acid 200 MG/ML Topical Cream [Azelex] Azelex 20 % Az elex 20 % 12/29/2020 12:00:00 AM EDT 1.0 {application} active Azelex 20 % eCW1 ([facility]) Pimecrolimus 10 MG/ML Topical Cream [Elidel] Elidel 1 % Elid el 1 % 12/29/2020 12:00:00 AM EDT 1.0 {application} active Elidel 1 % eCW1 ([facility]) Fluocinonide 0.5 MG/ML Topical Solution Fluocinonide 0.05 % Fluocinonide 0.05 % 12/29/2020 12:00:00 AM EDT 1.0 {application} act julia Fluocinonide 0.05 % eCW1 ([facility]) azelaic acid 200 MG/ML Topical Cream [Azelex] Azelex 20 % Az elex 20 % 12/29/2020 12:00:00 AM EDT 1.0 {application} active Azelex 20 % eCW1 ([facility]) azelaic acid 200 MG/ML Topical Cream [Azelex] Azelex 20 % Az elex 20 % 12/29/2020 12:00:00 AM EDT 1.0 {application} suspended Azelex 20 % eCW1 ([facility]) Pimecrolimus 10 MG/ML Topical Cream [Elidel] Elidel 1 % Elid el 1 % 12/29/2020 12:00:00 AM EDT 1.0 {application} active Elidel 1 % eCW1 ([facility]) Pimecrolimus 10 MG/ML Topical Cream [Elidel] Elidel 1 % Elid el 1 % 12/29/2020 12:00:00 AM EDT 1.0 {application} suspended Elidel 1 % eCW1 ([facility]) 0.05 % 12/29/2020 12:00:00 AM EDT solution 20 APPLY NIGHTLY TO THE SCALP FOR 1 WEEK, THEN DOWN TO ONCE WEEKLY FOR DRY ITCHY SCALP APPLY NIGHTLY TO THE SCALP FOR 1 WEEK, THEN DOWN TO ONCE WEEKLY FOR DRY ITCHY SCALP SOLD: 02/03/2021 [facility] Fluocinonide 0.5 MG/ML Topical Solution Fluocinonide 0.05 % Fluocinonide 0.05 % 12/29/2020 12:00:00 AM EDT 1.0 {application} act julia Fluocinonide 0.05 % eCW1 ([facility]) Pimecrolimus 10 MG/ML Topical Cream [Elidel] Elidel 1 % Elid el 1 % 12/29/2020 12:00:00 AM EDT 1.0 {application} suspended Elidel 1 % eCW1 ([facility]) azelaic acid 200 MG/ML Topical Cream [Azelex] Azelex 20 % Az elex 20 % 12/29/2020 12:00:00 AM EDT 1.0 {application} active Azelex 20 % eCW1 ([facility]) azelaic acid 200 MG/ML Topical Cream [Azelex] Azelex 20 % Az elex 20 % 12/29/2020 12:00:00 AM EDT 1.0 {application} active Azelex 20 % eCW1 ([facility]) Pimecrolimus 10 MG/ML Topical Cream [Elidel] Elidel 1 % Elid el 1 % 12/29/2020 12:00:00 AM EDT 1.0 {application} active Elidel 1 % eCW1 ([facility]) azelaic acid 200 MG/ML Topical Cream [Azelex] Azelex 20 % Az elex 20 % 12/29/2020 12:00:00 AM EDT 1.0 {application} active Azelex 20 % eCW1 ([facility]) azelaic acid 200 MG/ML Topical Cream [Azelex] Azelex 20 % Az elex 20 % 12/29/2020 12:00:00 AM EDT 1.0 {application} suspended Azelex 20 % eCW1 ([facility]) azelaic acid 200 MG/ML Topical Cream [Azelex] Azelex 20 % Az elex 20 % 12/29/2020 12:00:00 AM EDT 1.0 {application} suspended Azelex 20 % eCW1 ([facility]) azelaic acid 200 MG/ML Topical Cream [Azelex] Azelex 20 % Az elex 20 % 12/29/2020 12:00:00 AM EDT 1.0 {application} active Azelex 20 % eCW1 ([facility]) Pimecrolimus 10 MG/ML Topical Cream [Elidel] Elidel 1 % Elid el 1 % 12/29/2020 12:00:00 AM EDT 1.0 {application} suspended Elidel 1 % eCW1 ([facility]) Pimecrolimus 10 MG/ML Topical Cream [Elidel] Elidel 1 % Elid el 1 % 12/29/2020 12:00:00 AM EDT 1.0 {application} active Elidel 1 % eCW1 ([facility]) Fluocinonide 0.5 MG/ML Topical Solution Fluocinonide 0.05 % Fluocinonide 0.05 % 12/29/2020 12:00:00 AM EDT 1.0 {application} act julia Fluocinonide 0.05 % eCW1 ([facility]) Pimecrolimus 10 MG/ML Topical Cream [Elidel] Elidel 1 % Elid el 1 % 12/29/2020 12:00:00 AM EDT 1.0 {application} active Elidel 1 % eCW1 ([facility]) Fluocinonide 0.5 MG/ML Topical Solution Fluocinonide 0.05 % Fluocinonide 0.05 % 12/29/2020 12:00:00 AM EDT 1.0 {application} act julia Fluocinonide 0.05 % eCW1 ([facility]) Pimecrolimus 10 MG/ML Topical Cream [Elidel] Elidel 1 % Elid el 1 % 12/29/2020 12:00:00 AM EDT 1.0 {application} active Elidel 1 % eCW1 ([facility]) Pimecrolimus 10 MG/ML Topical Cream [Elidel] Elidel 1 % Elid el 1 % 12/29/2020 12:00:00 AM EDT 1.0 {application} suspended Elidel 1 % eCW1 ([facility]) azelaic acid 200 MG/ML Topical Cream [Azelex] Azelex 20 % Az elex 20 % 12/29/2020 12:00:00 AM EDT 1.0 {application} suspended Azelex 20 % eCW1 ([facility]) Fluocinonide 0.5 MG/ML Topical Solution Fluocinonide 0.05 % Fluocinonide 0.05 % 12/29/2020 12:00:00 AM EDT 1.0 {application} act julia Fluocinonide 0.05 % eCW1 ([facility]) Fluocinonide 0.5 MG/ML Topical Solution Fluocinonide 0.05 % Fluocinonide 0.05 % 12/29/2020 12:00:00 AM EDT 1.0 {application} act julia Fluocinonide 0.05 % eCW1 ([facility]) azelaic acid 200 MG/ML Topical Cream [Azelex] Azelex 20 % Az elex 20 % 12/29/2020 12:00:00 AM EDT 1.0 {application} suspended Azelex 20 % eCW1 ([facility]) Fluocinonide 0.5 MG/ML Topical Solution Fluocinonide 0.05 % Fluocinonide 0.05 % 12/29/2020 12:00:00 AM EDT 1.0 {application} act julia Fluocinonide 0.05 % eCW1 ([facility]) Fluocinonide 0.5 MG/ML Topical Solution Fluocinonide 0.05 % Fluocinonide 0.05 % 12/29/2020 12:00:00 AM EDT 1.0 {application} act julia Fluocinonide 0.05 % eCW1 ([facility]) 0.05 % 12/29/2020 12:00:00 AM EDT solution 20 APPLY NIGHTLY TO THE SCALP FOR 1 WEEK, THEN DOWN TO ONCE WEEKLY FOR DRY ITCHY SCALP APPLY NIGHTLY TO THE SCALP FOR 1 WEEK, THEN DOWN TO ONCE WEEKLY FOR DRY ITCHY SCALP SOLD: 12/30/2020 [facility] Fluocinonide 0.5 MG/ML Topical Solution Fluocinonide 0.05 % Fluocinonide 0.05 % 12/29/2020 12:00:00 AM EDT 1.0 {application} act julia Fluocinonide 0.05 % eCW1 ([facility]) azelaic acid 200 MG/ML Topical Cream [Azelex] Azelex 20 % Az elex 20 % 12/29/2020 12:00:00 AM EDT 1.0 {application} suspended Azelex 20 % eCW1 ([facility]) Fluocinonide 0.5 MG/ML Topical Solution Fluocinonide 0.05 % Fluocinonide 0.05 % 12/29/2020 12:00:00 AM EDT 1.0 {application} act julia Fluocinonide 0.05 % eCW1 ([facility]) azelaic acid 200 MG/ML Topical Cream [Azelex] Azelex 20 % Az elex 20 % 12/29/2020 12:00:00 AM EDT 1.0 {application} active Azelex 20 % eCW1 ([facility]) azelaic acid 200 MG/ML Topical Cream [Azelex] Azelex 20 % Az elex 20 % 12/29/2020 12:00:00 AM EDT 1.0 {application} suspended Azelex 20 % eCW1 ([facility]) Pimecrolimus 10 MG/ML Topical Cream [Elidel] Elidel 1 % Elid el 1 % 12/29/2020 12:00:00 AM EDT 1.0 {application} active Elidel 1 % eCW1 ([facility]) azelaic acid 200 MG/ML Topical Cream [Azelex] Azelex 20 % Az elex 20 % 12/29/2020 12:00:00 AM EDT 1.0 {application} suspended Azelex 20 % eCW1 ([facility]) azelaic acid 200 MG/ML Topical Cream [Azelex] Azelex 20 % Az elex 20 % 12/29/2020 12:00:00 AM EDT 1.0 {application} active Azelex 20 % eCW1 ([facility]) Pimecrolimus 10 MG/ML Topical Cream [Elidel] Elidel 1 % Elid el 1 % 12/29/2020 12:00:00 AM EDT 1.0 {application} active Elidel 1 % eCW1 ([facility]) azelaic acid 200 MG/ML Topical Cream [Azelex] Azelex 20 % Az elex 20 % 12/29/2020 12:00:00 AM EDT 1.0 {application} suspended Azelex 20 % eCW1 ([facility]) Pimecrolimus 10 MG/ML Topical Cream [Elidel] Elidel 1 % Elid el 1 % 12/29/2020 12:00:00 AM EDT 1.0 {application} suspended Elidel 1 % eCW1 ([facility]) Pimecrolimus 10 MG/ML Topical Cream [Elidel] Elidel 1 % Elid el 1 % 12/29/2020 12:00:00 AM EDT 1.0 {application} active Elidel 1 % eCW1 ([facility]) Pimecrolimus 10 MG/ML Topical Cream [Elidel] Elidel 1 % Elid el 1 % 12/29/2020 12:00:00 AM EDT 1.0 {application} suspended Elidel 1 % eCW1 ([facility]) Pimecrolimus 10 MG/ML Topical Cream [Elidel] Elidel 1 % Elid el 1 % 12/29/2020 12:00:00 AM EDT 1.0 {application} active Elidel 1 % eCW1 ([facility]) azelaic acid 200 MG/ML Topical Cream [Azelex] Azelex 20 % Az elex 20 % 12/29/2020 12:00:00 AM EDT 1.0 {application} active Azelex 20 % eCW1 ([facility]) Fluocinonide 0.5 MG/ML Topical Solution Fluocinonide 0.05 % Fluocinonide 0.05 % 12/29/2020 12:00:00 AM EDT 1.0 {application} act julia Fluocinonide 0.05 % eCW1 ([facility]) Pimecrolimus 10 MG/ML Topical Cream [Elidel] Elidel 1 % Elid el 1 % 12/29/2020 12:00:00 AM EDT 1.0 {application} suspended Elidel 1 % eCW1 ([facility]) azelaic acid 200 MG/ML Topical Cream [Azelex] Azelex 20 % Az elex 20 % 12/29/2020 12:00:00 AM EDT 1.0 {application} active Azelex 20 % eCW1 ([facility]) azelaic acid 200 MG/ML Topical Cream [Azelex] Azelex 20 % Az elex 20 % 12/29/2020 12:00:00 AM EDT 1.0 {application} active Azelex 20 % eCW1 ([facility]) Fluocinonide 0.5 MG/ML Topical Solution Fluocinonide 0.05 % Fluocinonide 0.05 % 12/29/2020 12:00:00 AM EDT 1.0 {application} act julia Fluocinonide 0.05 % eCW1 ([facility]) Pimecrolimus 10 MG/ML Topical Cream [Elidel] Elidel 1 % Elid el 1 % 12/29/2020 12:00:00 AM EDT 1.0 {application} active Elidel 1 % eCW1 ([facility]) Pimecrolimus 10 MG/ML Topical Cream [Elidel] Elidel 1 % Elid el 1 % 12/29/2020 12:00:00 AM EDT 1.0 {application} suspended Elidel 1 % eCW1 ([facility]) azelaic acid 200 MG/ML Topical Cream [Azelex] Azelex 20 % Az elex 20 % 12/29/2020 12:00:00 AM EDT 1.0 {application} suspended Azelex 20 % eCW1 ([facility]) Pimecrolimus 10 MG/ML Topical Cream [Elidel] Elidel 1 % Elid el 1 % 12/29/2020 12:00:00 AM EDT 1.0 {application} suspended Elidel 1 % eCW1 ([facility]) Pimecrolimus 10 MG/ML Topical Cream [Elidel] Elidel 1 % Elid el 1 % 12/29/2020 12:00:00 AM EDT 1.0 {application} active Elidel 1 % eCW1 ([facility]) Pimecrolimus 10 MG/ML Topical Cream [Elidel] Elidel 1 % Elid el 1 % 12/29/2020 12:00:00 AM EDT 1.0 {application} suspended Elidel 1 % eCW1 ([facility]) azelaic acid 200 MG/ML Topical Cream [Azelex] Azelex 20 % Az elex 20 % 12/29/2020 12:00:00 AM EDT 1.0 {application} active Azelex 20 % eCW1 ([facility]) Pimecrolimus 10 MG/ML Topical Cream [Elidel] Elidel 1 % Elid el 1 % 12/29/2020 12:00:00 AM EDT 1.0 {application} active Elidel 1 % eCW1 ([facility]) 40 mg 12/25/2020 12:00:00 AM EDT tablet 30 TAKE ONE TABLET BY MOUTH EVERY DAY TAKE ONE TABLET BY MOUTH EVERY DAY SOLD: 12/26/2020 [facility] 55 mcg 12/24/2020 12:00:00 AM EDT aerosol,spray 16 SPRAY 2 SPRAYS IN EACH NOSTRIL ONCE DAILY SPRAY 2 SPRAYS IN EACH NOSTRIL ONCE DAILY SOLD: 04/27/2021 [facility] 55 mcg 12/24/2020 12:00:00 AM EDT aerosol,spray 16 SPRAY 2 SPRAYS IN EACH NOSTRIL ONCE DAILY SPRAY 2 SPRAYS IN EACH NOSTRIL ONCE DAILY SOLD: 12/26/2020 [facility] 0.025 % (0.035 %) 12/24/2020 12:00:00 AM EDT drops 5 INSTILL 1-2 DROPS INTO EACH EYE ONCE DAILY NEEDED INSTILL 1-2 DROPS INTO EACH EYE ONCE DANIA LY NEEDED SOLD: 04/27/2021 [facility] 60 ACTUAT Fluticasone propionate 0.113 M G/ACTUAT / Salmeterol xinafoate 0.014 MG/ACTUAT Dry Powder Inhaler 113-14 mcg/actuation FLUTICASONE PROPION/SALMETEROL 12/24/2020 12:00:00 AM EDT aerosol powdr breath activated 1 INHALE ONE PUFF BY MOUTH TWICE A DAY INHALE ONE PUFF BY MOUTH TWICE A DAY SOLD: 04/27/2021 [facility] 0.025 % (0.035 %) 12/24/2020 12:00:00 AM EDT drops 5 INSTILL 1-2 DROPS INTO EACH EYE ONCE DAILY NEEDED INSTILL 1-2 DROPS INTO EACH EYE ONCE DANIA LY NEEDED SOLD: 03/04/2021 [facility] 0.025 % (0.035 %) 12/24/2020 12:00:00 AM EDT drops 5 INSTILL 1-2 DROPS INTO EACH EYE ONCE DAILY NEEDED INSTILL 1-2 DROPS INTO EACH EYE ONCE DANIA LY NEEDED SOLD: 12/26/2020 [facility] 60 ACTUAT Fluticasone propionate 0.113 M G/ACTUAT / Salmeterol xinafoate 0.014 MG/ACTUAT Dry Powder Inhaler 113-14 mcg/actuation FLUTICASONE PROPION/SALMETEROL 12/24/2020 12:00:00 AM EDT aerosol powdr breath activated 1 INHALE ONE PUFF BY MOUTH TWICE A DAY INHALE ONE PUFF BY MOUTH TWICE A DAY SOLD: 03/04/2021 [facility] 60 ACTUAT Fluticasone propionate 0.113 M G/ACTUAT / Salmeterol xinafoate 0.014 MG/ACTUAT Dry Powder Inhaler 113-14 mcg/actuation FLUTICASONE PROPION/SALMETEROL 12/24/2020 12:00:00 AM EDT aerosol powdr breath activated 1 INHALE ONE PUFF BY MOUTH TWICE A DAY INHALE ONE PUFF BY MOUTH TWICE A DAY SOLD: 12/26/2020 [facility] 60 ACTUAT Fluticasone propionate 0.113 M G/ACTUAT / Salmeterol xinafoate 0.014 MG/ACTUAT Dry Powder Inhaler 113-14 mcg/actuation FLUTICASONE PROPION/SALMETEROL 12/24/2020 12:00:00 AM EDT aerosol powdr breath activated 1 INHALE ONE PUFF BY MOUTH TWICE A DAY INHALE ONE PUFF BY MOUTH TWICE A DAY SOLD: 06/30/2021 [facility] 55 mcg 12/24/2020 12:00:00 AM EDT aerosol,spray 16 SPRAY 2 SPRAYS IN EACH NOSTRIL ONCE DAILY SPRAY 2 SPRAYS IN EACH NOSTRIL ONCE DAILY SOLD: 06/09/2021 [facility] 4 gram 12/23/2020 12:00:00 AM EDT powder 378 USE 1 SCOOP TWICE A DAY USE 1 SCOOP TWICE A DAY SOLD: 02/03/2021 [facility] 4 gram 12/23/2020 12:00:00 AM EDT powder 378 USE 1 SCOOP TWICE A DAY USE 1 SCOOP TWICE A DAY SOLD: 03/25/2021 [facility] 4 gram 12/23/2020 12:00:00 AM EDT powder 378 USE 1 SCOOP TWICE A DAY USE 1 SCOOP TWICE A DAY SOLD: 03/04/2021 [facility] 4 gram 12/23/2020 12:00:00 AM EDT powder 378 USE 1 SCOOP TWICE A DAY USE 1 SCOOP TWICE A DAY SOLD: 12/26/2020 [facility] 4 gram 12/23/2020 12:00:00 AM EDT powder 378 USE 1 SCOOP TWICE A DAY USE 1 SCOOP TWICE A DAY SOLD: 04/27/2021 [facility] 1 gram 12/21/2020 12:00:00 AM EDT tablet 100 TAKE ONE TABLET BY MOUTH ON AN EMPTY STOMACH FOUR TIMES A DAY (1 HOUR BEFORE MEALS AND AT BEDTIME ) MAY DISSOLVE TABLET IN 1-2TSP OF WATER TAKE ONE TABLET BY MOUTH ON AN EMPTY STO MACH FOUR TIMES A DAY (1 HOUR BEFORE MEALS AND AT BEDTIME ) MAY DISSOLVE TABLET IN 1- 2TSP OF WATER SOLD: 12/21/2020 [facility] 150 mg 12/19/2020 12:00:00 AM EDT capsule 90 TAKE ONE CAPSULE BY MOUTH THREE TIMES A DAY FOR PAIN MAXIMUM DAILY DOSE = 3 TAKE ONE CAPSULE BY MOUTH THREE TIMES A DAY FOR PAIN MAXIMUM DAILY DOSE = 3 SOLD: 12/19/2020 [facility] 150 mg 12/19/2020 12:00:00 AM EDT capsule 90 TAKE ONE CAPSULE BY MOUTH THREE TIMES A DAY FOR PAIN MAXIMUM DAILY DOSE = 3 TAKE ONE CAPSULE BY MOUTH THREE TIMES A DAY FOR PAIN MAXIMUM DAILY DOSE = 3 SOLD: 01/17/2021 [facility] 5 mg 12/18/2020 12:00:00 AM EDT tablet 15 TAKE 1 TABLET BY MOUTH ONCE DAILY NEEDED FOR MIGRAINE HEADACHES MAY REPEAT IN 2 HOURS IF NEEDED TAKE 1 TABLET BY MOUTH ONCE DAILY NEEDED FOR MIGRAINE HEADACHES MAY REPEAT IN 2 HOURS IF NEEDED SOLD: 12/19/2020 [facility] 5 mg 12/18/2020 12:00:00 AM EDT tablet 15 TAKE 1 TABLET BY MOUTH ONCE DAILY NEEDED FOR MIGRAINE HEADACHES MAY REPEAT IN 2 HOURS IF NEEDED TAKE 1 TABLET BY MOUTH ONCE DAILY NEEDED FOR MIGRAINE HEADACHES MAY REPEAT IN 2 HOURS IF NEEDED SOLD: 01/13/2021 [facility] 30 mg 12/17/2020 12:00:00 AM EDT capsule,delayed release (DR/EC) 30 TAKE ONE CAPSULE BY MOUTH EVERY DAY FOR PAIN TAKE ONE CAPSULE BY MOUTH EVERY DAY FOR PAIN SOLD: 01/13/2021 [facility] 30 mg 12/17/2020 12:00:00 AM EDT capsule,delayed release (DR/EC) 30 TAKE ONE CAPSULE BY MOUTH EVERY DAY FOR PAIN TAKE ONE CAPSULE BY MOUTH EVERY DAY FOR PAIN SOLD: 12/19/2020 [facility] Cyclobenzaprine hydrochloride 10 MG Oral Tablet CYCLOBENZAPR INE HCL 12/16/2020 12:00:00 AM EDT tablet 75 TAKE ONE TABLET BY MOUTH THREE TIMES A DAY NEEDED FOR SPASMS AND PAIN TAKE ONE TABLET BY MOUTH THREE TIMES A D AY NEEDED FOR SPASMS AND PAIN SOLD: 01/13/2021 [facility] Cyclobenzaprine hydrochloride 10 MG Oral Tablet CYCLOBENZAPR INE HCL 12/16/2020 12:00:00 AM EDT tablet 75 TAKE ONE TABLET BY MOUTH THREE TIMES A DAY NEEDED FOR SPASMS AND PAIN TAKE ONE TABLET BY MOUTH THREE TIMES A D AY NEEDED FOR SPASMS AND PAIN SOLD: 12/19/2020 [facility] 2.5-0.025 mg 12/01/2020 12:00:00 AM EDT tablet 60 TAKE 1 TABLET BY MOUTH UP TO TWICE DAILY FOR DIARRHEA (IF HAVING DIZZINESS AND LIGHT HEADED, HOLD AND CALL GI CLINIC) MAXIMUM DAILY DOSE = 2 TAKE 1 TABLET BY MOUTH UP TO TWICE DAILY FOR DIARRHEA (IF HAVING DIZZINESS AND LIGHT HEADED, HOLD AND CALL GI CLINIC) MAXIMUM DAILY DOSE = 2 SOLD: 12/01/2020 [facility] 40 mg 11/26/2020 12:00:00 AM EDT tablet 30 TAKE ONE TABLET BY MOUTH EVERY DAY TAKE ONE TABLET BY MOUTH EVERY DAY SOLD: 11/26/2020 [facility] Furosemide 40 MG Oral Tablet [Lasix] Lasix 40 MG Lasix 40 MG 11/25/2020 12:00:00 AM EDT 1.0 {tablet} active Lasix 40 M G eCW1 ([facility]) Furosemide 40 MG Oral Tablet [Lasix] Lasix 40 MG Lasix 40 MG 11/25/2020 12:00:00 AM EDT 1.0 {tablet} active Lasix 40 M G eCW1 ([facility]) Furosemide 40 MG Oral Tablet [Lasix] Lasix 40 MG Lasix 40 MG 11/25/2020 12:00:00 AM EDT 1.0 {tablet} active Lasix 40 M G eCW1 ([facility]) 50 mg 11/25/2020 12:00:00 AM EDT tablet 90 TAKE ONE TABLET BY MOUTH EVERY 6 HOURS NEEDED FOR PAIN MAXIMUM DAILY DOSE = 4 TAKE ONE TABLET BY MOUTH EVERY 6 HOURS NEEDED FOR PAIN MAXIMUM DAILY DOSE = 4 SOLD: 11/26/2020 [facility] Furosemide 40 MG Oral Tablet [Lasix] Lasix 40 MG Lasix 40 MG 11/25/2020 12:00:00 AM EDT 1.0 {tablet} active Lasix 40 M G eCW1 ([facility]) Furosemide 40 MG Oral Tablet [Lasix] Lasix 40 MG Lasix 40 MG 11/25/2020 12:00:00 AM EDT 1.0 {tablet} active Lasix 40 M G eCW1 ([facility]) 2.5-0.025 mg 10/29/2020 12:00:00 AM EST tablet 60 TAKE ONE TABLET BY MOUTH UP TO TWO TIMES A DAY FOR DIARRHEA , IF HAVING DIZZINESS AND LIGHT HEADDED HOLD AND CALL GI CLINIC MAXIMUM DAILY DOSE = 2 TAKE ONE TABLET BY MOUTH UP TO TWO TIMES A DAY FOR DIARRHEA , IF HAVING DIZZINESS AND LIGHT HEADDED HOLD AND CALL GI CLINIC MAXIMUM DAILY DOSE = 2 SOLD: 10/31/2020 [facility] pantoprazole 40 MG Delayed Release Oral Tablet PANTOPRAZOLE SODIUM 10/27/2020 12:00:00 AM EST tablet,delayed release (DR/EC) 60 T ROGELIO ONE TABLET BY MOUTH TWICE A DAY TAKE ONE TABLET BY MOUTH TWICE A DAY SOLD: 10/28/2020 [facility] pantoprazole 40 MG Delayed Release Oral Tablet PANTOPRAZOLE SODIUM 10/27/2020 12:00:00 AM EST tablet,delayed release (DR/EC) 60 T ROGELIO ONE TABLET BY MOUTH TWICE A DAY TAKE ONE TABLET BY MOUTH TWICE A DAY SOLD: 01/03/2021 [facility] pantoprazole 40 MG Delayed Release Oral Tablet PANTOPRAZOLE SODIUM 10/27/2020 12:00:00 AM EST tablet,delayed release (DR/EC) 60 T ROGELIO ONE TABLET BY MOUTH TWICE A DAY TAKE ONE TABLET BY MOUTH TWICE A DAY SOLD: 02/03/2021 [facility] pantoprazole 40 MG Delayed Release Oral Tablet PANTOPRAZOLE SODIUM 10/27/2020 12:00:00 AM EST tablet,delayed release (DR/EC) 60 T ROGELIO ONE TABLET BY MOUTH TWICE A DAY TAKE ONE TABLET BY MOUTH TWICE A DAY SOLD: 11/25/2020 [facility] 150 mg 10/19/2020 12:00:00 AM EST capsule 90 TAKE ONE CAPSULE BY MOUTH THREE TIMES A DAY FOR PAIN MAXIMUM DAILY DOSE = 3 TAKE ONE CAPSULE BY MOUTH THREE TIMES A DAY FOR PAIN MAXIMUM DAILY DOSE = 3 SOLD: 10/20/2020 [facility] 50 mg 10/19/2020 12:00:00 AM EST tablet 90 TAKE ONE TABLET BY MOUTH EVERY 6 HOURS NEEDED FOR PAIN MAXIMUM DAILY DOSE = 4 TABLETS TAKE ONE TABLET BY MOUTH EVERY 6 HOURS NEEDED FOR PAIN MAXIMUM DAILY DOSE = 4 TABLETS SOLD: 10/20/2020 [facility] 150 mg 10/19/2020 12:00:00 AM EST capsule 90 TAKE ONE CAPSULE BY MOUTH THREE TIMES A DAY FOR PAIN MAXIMUM DAILY DOSE = 3 TAKE ONE CAPSULE BY MOUTH THREE TIMES A DAY FOR PAIN MAXIMUM DAILY DOSE = 3 SOLD: 11/20/2020 [facility] 50 mg 10/19/2020 12:00:00 AM EST tablet 90 TAKE ONE TABLET BY MOUTH EVERY 6 HOURS NEEDED FOR PAIN MAXIMUM DAILY DOSE = 4 TABLETS TAKE ONE TABLET BY MOUTH EVERY 6 HOURS NEEDED FOR PAIN MAXIMUM DAILY DOSE = 4 TABLETS SOLD: 01/14/2021 [facility] 5 mg 10/15/2020 12:00:00 AM EST tablet 15 TAKE 1 TABLET BY MOUTH NEEDED FOR MIGRAINE HEADACHE, MAY REPEAT IN 2 HOURS IF NEEDED MAXIMUM DAILY DOSE = 2 TAKE 1 TABLET BY MOUTH NEEDED FOR MIGRAINE HEADACHE, MAY REPEAT IN 2 HOURS IF NEEDED MAXIMUM DAILY DOSE = 2 SOLD: 11/17/2020 [facility] Cyclobenzaprine hydrochloride 10 MG Oral Tablet CYCLOBENZAPR INE HCL 10/15/2020 12:00:00 AM EST tablet 75 TAKE ONE TABLET BY MOUTH THREE TIMES A DAY NEEDED FOR SPASMS AND PAIN TAKE ONE TABLET BY MOUTH THREE TIMES A D AY NEEDED FOR SPASMS AND PAIN SOLD: 11/16/2020 [facility] 30 mg 10/15/2020 12:00:00 AM EST capsule,delayed release (DR/EC) 30 TAKE ONE CAPSULE BY MOUTH EVERY DAY FOR PAIN TAKE ONE CAPSULE BY MOUTH EVERY DAY FOR PAIN SOLD: 10/18/2020 [facility] Cyclobenzaprine hydrochloride 10 MG Oral Tablet CYCLOBENZAPR INE HCL 10/15/2020 12:00:00 AM EST tablet 75 TAKE ONE TABLET BY MOUTH THREE TIMES A DAY NEEDED FOR SPASMS AND PAIN TAKE ONE TABLET BY MOUTH THREE TIMES A D AY NEEDED FOR SPASMS AND PAIN SOLD: 10/18/2020 [facility] 5 mg 10/15/2020 12:00:00 AM EST tablet 15 TAKE 1 TABLET BY MOUTH NEEDED FOR MIGRAINE HEADACHE, MAY REPEAT IN 2 HOURS IF NEEDED MAXIMUM DAILY DOSE = 2 TAKE 1 TABLET BY MOUTH NEEDED FOR MIGRAINE HEADACHE, MAY REPEAT IN 2 HOURS IF NEEDED MAXIMUM DAILY DOSE = 2 SOLD: 10/18/2020 [facility] 30 mg 10/15/2020 12:00:00 AM EST capsule,delayed release (DR/EC) 30 TAKE ONE CAPSULE BY MOUTH EVERY DAY FOR PAIN TAKE ONE CAPSULE BY MOUTH EVERY DAY FOR PAIN SOLD: 11/16/2020 [facility] 2.5-0.025 mg 09/29/2020 12:00:00 AM EST tablet 59 TAKE 1 TABLET BY MOUTH UP TO TWICE A DAY FOR DIARRHEA (IF HAVING DIZZINESS AND LIGHT HEADED, HOLD AND CALL GI CLINIC) MAXIMUM DAILY DOSE = 2 TAKE 1 TABLET BY MOUTH UP TO TWICE A DAY FOR DIARRHEA (IF HAVING DIZZINESS AND LIGHT HEADED, HOLD AND CALL GI CLINIC) MAXIMUM DAILY DOSE = 2 SOLD: 09/30/2020 [facility] 2.5-0.025 mg 09/29/2020 12:00:00 AM EST tablet 1 TAKE 1 TABLET BY MOUTH UP TO TWICE A DAY FOR DIARRHEA (IF HAVING DIZZINESS AND LIGHT HEADED, HOLD AND CALL GI CLINIC) MAXIMUM DAILY DOSE = 2 TAKE 1 TABLET BY MOUTH UP TO TWICE A DAY FOR DIARRHEA (IF HAVING DIZZINESS AND LIGHT HEADED, HOLD AND CALL GI CLINIC) MAXIMUM DAILY DOSE = 2 SOLD: 09/29/2020 [facility] 150 mg 09/16/2020 12:00:00 AM EST capsule 90 TAKE ONE CAPSULE BY MOUTH THREE TIMES A DAY FOR PAIN MAXIMUM DAILY DOSE = 3 CAPSULES TAKE ONE CAPSULE BY MOUTH THREE TIMES A DAY FOR PAIN MAXIMUM DAILY DOSE = 3 CAPSULES SOLD: 09/19/2020 [facility] 50 mg 09/16/2020 12:00:00 AM EST tablet 90 TAKE ONE TABLET BY MOUTH EVERY 6 HOURS NEEDED FOR PAIN MAXIMUM DAILY DOSE = 4 TABLETS TAKE ONE TABLET BY MOUTH EVERY 6 HOURS NEEDED FOR PAIN MAXIMUM DAILY DOSE = 4 TABLETS SOLD: 09/19/2020 [facility] 90 mcg/actuation 09/14/2020 12:00:00 AM EST HFA aerosol inha ler 8 INHALE TWO PUFFS BY MOUTH EVERY 4 TO 6 HOURS NEEDED AND 15 MINUTES PRIOR TO EXCERCISE INHALE TWO PUFFS BY MOUTH EVERY 4 TO 6 HOURS NEEDED AND 15 MINUTES PRIOR TO EXCERCISE SOLD: 09/14/2020 [facility] 60 ACTUAT Albuterol 0.09 MG/ACTUAT Metered Dose Inhaler Albu terol Sulfate HFA 09/14/2020 12:00:00 AM EST RESPIRATORY active MEDENT ([facility] 137 mcg (0.1 %) 08/31/2020 12:00:00 AM EST aerosol,spray 30 SPRAY 1 SPRAY IN EACH NOSTRIL TWO TIMES A DAY SPRAY 1 SPRAY IN EACH NOSTRIL TWO TIMES A DAY SOLD: 09/30/2020 [facility] 10 mg 08/31/2020 12:00:00 AM EST tablet 30 TAKE ONE TABLET BY MOUTH EVERY DAY TAKE ONE TABLET BY MOUTH EVERY DAY SOLD: 08/31/2020 [facility] Azelastine HCl 0.1 % Azelastine HCl 0.1 % 08/31/2020 12:00:00 AM ES T 1.0 {puff_in_each_nostril} active Azelastin e HCl 0.1 % eCW1 ([facility]) Azelastine HCl 0.1 % Azelastine HCl 0.1 % 08/31/2020 12:00:00 AM ES T 1.0 {puff_in_each_nostril} active Azelastin e HCl 0.1 % eCW1 ([facility]) Azelastine HCl 0.1 % Azelastine HCl 0.1 % 08/31/2020 12:00:00 AM ES T 1.0 {puff_in_each_nostril} active Azelastin e HCl 0.1 % eCW1 ([facility]) Azelastine HCl 0.1 % Azelastine HCl 0.1 % 08/31/2020 12:00:00 AM ES T 1.0 {puff_in_each_nostril} active Azelastin e HCl 0.1 % eCW1 ([facility]) 10 mg 08/31/2020 12:00:00 AM EST tablet 30 TAKE ONE TABLET BY MOUTH EVERY DAY TAKE ONE TABLET BY MOUTH EVERY DAY SOLD: 10/14/2020 [facility] 137 mcg (0.1 %) 08/31/2020 12:00:00 AM EST aerosol,spray 30 SPRAY 1 SPRAY IN EACH NOSTRIL TWO TIMES A DAY SPRAY 1 SPRAY IN EACH NOSTRIL TWO TIMES A DAY SOLD: 10/28/2020 [facility] Azelastine HCl 0.1 % Azelastine HCl 0.1 % 08/31/2020 12:00:00 AM ES T 1.0 {puff_in_each_nostril} active Azelastin e HCl 0.1 % eCW1 ([facility]) Azelastine HCl 0.1 % Azelastine HCl 0.1 % 08/31/2020 12:00:00 AM ES T 1.0 {puff_in_each_nostril} active Azelastin e HCl 0.1 % eCW1 ([facility]) 137 mcg (0.1 %) 08/31/2020 12:00:00 AM EST aerosol,spray 30 SPRAY 1 SPRAY IN EACH NOSTRIL TWO TIMES A DAY SPRAY 1 SPRAY IN EACH NOSTRIL TWO TIMES A DAY SOLD: 09/01/2020 [facility] 10 mg 08/31/2020 12:00:00 AM EST tablet 30 TAKE ONE TABLET BY MOUTH EVERY DAY TAKE ONE TABLET BY MOUTH EVERY DAY SOLD: 11/16/2020 [facility] Azelastine HCl 0.1 % Azelastine HCl 0.1 % 08/31/2020 12:00:00 AM ES T 1.0 {puff_in_each_nostril} active Azelastin e HCl 0.1 % eCW1 ([facility]) Azelastine HCl 0.1 % Azelastine HCl 0.1 % 08/31/2020 12:00:00 AM ES T 1.0 {puff_in_each_nostril} active Azelastin e HCl 0.1 % eCW1 ([facility]) 2.5-0.025 mg 08/31/2020 12:00:00 AM EST tablet 60 TAKE ONE TABLET BY MOUTH UP TO TWICE A DAY FOR DIARRHEA. - MAXIMUM DAILY DOSE = 2 TABLETS TAKE ONE TABLET BY MOUTH UP TO TWICE A DAY FOR DIARRHEA. - MAXIMUM DAILY DOSE = 2 TABLETS SOLD: 08/31/2020 [facility] Loratadine 10 MG Oral Tablet Loratadine 10 MG 08/30/2020 12:00:00 A M EST 1.0 {tablet} suspended Loratadine 10 MG eCW1 ([facility]) Loratadine 10 MG Oral Tablet Loratadine 10 MG 08/30/2020 12:00:00 A M EST 1.0 {tablet} active Loratadine 10 MG eCW1 ( [facility]) Loratadine 10 MG Oral Tablet Loratadine 10 MG 08/30/2020 12:00:00 A M EST 1.0 {tablet} active Loratadine 10 MG eCW1 ( [facility]) Loratadine 10 MG Oral Tablet Loratadine 10 MG 08/30/2020 12:00:00 A M EST 1.0 {tablet} active Loratadine 10 MG eCW1 ( [facility]) Loratadine 10 MG Oral Tablet Loratadine 10 MG 08/30/2020 12:00:00 A M EST 1.0 {tablet} suspended Loratadine 10 MG eCW1 ([facility]) Loratadine 10 MG Oral Tablet Loratadine 10 MG 08/30/2020 12:00:00 A M EST 1.0 {tablet} suspended Loratadine 10 MG eCW1 ([facility]) Loratadine 10 MG Oral Tablet Loratadine 10 MG 08/30/2020 12:00:00 A M EST 1.0 {tablet} active Loratadine 10 MG eCW1 ( [facility]) Loratadine 10 MG Oral Tablet Loratadine 10 MG 08/30/2020 12:00:00 A M EST 1.0 {tablet} suspended Loratadine 10 MG eCW1 ([facility]) Loratadine 10 MG Oral Tablet Loratadine 10 MG 08/30/2020 12:00:00 A M EST 1.0 {tablet} active Loratadine 10 MG eCW1 ( [facility]) Loratadine 10 MG Oral Tablet Loratadine 10 MG 08/30/2020 12:00:00 A M EST 1.0 {tablet} active Loratadine 10 MG eCW1 ( [facility]) Loratadine 10 MG Oral Tablet Loratadine 10 MG 08/30/2020 12:00:00 A M EST 1.0 {tablet} active Loratadine 10 MG eCW1 ( [facility]) Loratadine 10 MG Oral Tablet Loratadine 10 MG 08/30/2020 12:00:00 A M EST 1.0 {tablet} suspended Loratadine 10 MG eCW1 ([facility]) Loratadine 10 MG Oral Tablet Loratadine 10 MG 08/30/2020 12:00:00 A M EST 1.0 {tablet} suspended Loratadine 10 MG eCW1 ([facility]) Loratadine 10 MG Oral Tablet Loratadine 10 MG 08/30/2020 12:00:00 A M EST 1.0 {tablet} active Loratadine 10 MG eCW1 ( [facility]) Loratadine 10 MG Oral Tablet Loratadine 10 MG 08/30/2020 12:00:00 A M EST 1.0 {tablet} suspended Loratadine 10 MG eCW1 ([facility]) Loratadine 10 MG Oral Tablet Loratadine 10 MG 08/30/2020 12:00:00 A M EST 1.0 {tablet} active Loratadine 10 MG eCW1 ( [facility]) Loratadine 10 MG Oral Tablet Loratadine 10 MG 08/30/2020 12:00:00 A M EST 1.0 {tablet} active Loratadine 10 MG eCW1 ( [facility]) Loratadine 10 MG Oral Tablet Loratadine 10 MG 08/30/2020 12:00:00 A M EST 1.0 {tablet} active Loratadine 10 MG eCW1 ( [facility]) Loratadine 10 MG Oral Tablet Loratadine 10 MG 08/30/2020 12:00:00 A M EST 1.0 {tablet} active Loratadine 10 MG eCW1 ( [facility]) Loratadine 10 MG Oral Tablet Loratadine 10 MG 08/30/2020 12:00:00 A M EST 1.0 {tablet} suspended Loratadine 10 MG eCW1 ([facility]) Loratadine 10 MG Oral Tablet Loratadine 10 MG 08/30/2020 12:00:00 A M EST 1.0 {tablet} active Loratadine 10 MG eCW1 ( [facility]) Loratadine 10 MG Oral Tablet Loratadine 10 MG 08/30/2020 12:00:00 A M EST 1.0 {tablet} active Loratadine 10 MG eCW1 ( [facility]) Loratadine 10 MG Oral Tablet Loratadine 10 MG 08/30/2020 12:00:00 A M EST 1.0 {tablet} suspended Loratadine 10 MG eCW1 ([facility]) Loratadine 10 MG Oral Tablet Loratadine 10 MG 08/30/2020 12:00:00 A M EST 1.0 {tablet} active Loratadine 10 MG eCW1 ( [facility]) Loratadine 10 MG Oral Tablet Loratadine 10 MG 08/30/2020 12:00:00 A M EST 1.0 {tablet} suspended Loratadine 10 MG eCW1 ([facility]) Loratadine 10 MG Oral Tablet Loratadine 10 MG 08/30/2020 12:00:00 A M EST 1.0 {tablet} active Loratadine 10 MG eCW1 ( [facility]) Loratadine 10 MG Oral Tablet Loratadine 10 MG 08/30/2020 12:00:00 A M EST 1.0 {tablet} suspended Loratadine 10 MG eCW1 ([facility]) Loratadine 10 MG Oral Tablet Loratadine 10 MG 08/30/2020 12:00:00 A M EST 1.0 {tablet} suspended Loratadine 10 MG eCW1 ([facility]) Loratadine 10 MG Oral Tablet Loratadine 10 MG 08/30/2020 12:00:00 A M EST 1.0 {tablet} active Loratadine 10 MG eCW1 ( [facility]) Loratadine 10 MG Oral Tablet Loratadine 10 MG 08/30/2020 12:00:00 A M EST 1.0 {tablet} suspended Loratadine 10 MG eCW1 ([facility]) Loratadine 10 MG Oral Tablet Loratadine 10 MG 08/30/2020 12:00:00 A M EST 1.0 {tablet} active Loratadine 10 MG eCW1 ( [facility]) Loratadine 10 MG Oral Tablet Loratadine 10 MG 08/30/2020 12:00:00 A M EST 1.0 {tablet} suspended Loratadine 10 MG eCW1 ([facility]) Loratadine 10 MG Oral Tablet Loratadine 10 MG 08/30/2020 12:00:00 A M EST 1.0 {tablet} suspended Loratadine 10 MG eCW1 ([facility]) Loratadine 10 MG Oral Tablet Loratadine 10 MG 08/30/2020 12:00:00 A M EST 1.0 {tablet} suspended Loratadine 10 MG eCW1 ([facility]) Loratadine 10 MG Oral Tablet Loratadine 10 MG 08/30/2020 12:00:00 A M EST 1.0 {tablet} suspended Loratadine 10 MG eCW1 ([facility]) Loratadine 10 MG Oral Tablet Loratadine 10 MG 08/30/2020 12:00:00 A M EST 1.0 {tablet} active Loratadine 10 MG eCW1 ( [facility]) 150 mg 08/15/2020 12:00:00 AM EST capsule 90 TAKE ONE CAPSULE BY MOUTH THREE TIMES A DAY FOR PAIN MAXIMUM DAILY DOSE = 3 TAKE ONE CAPSULE BY MOUTH THREE TIMES A DAY FOR PAIN MAXIMUM DAILY DOSE = 3 SOLD: 08/15/2020 [facility] 50 mg 08/13/2020 12:00:00 AM EST tablet 90 TAKE ONE TABLET BY MOUTH EVERY 6 HOURS NEEDED FOR PAIN MAXIMUM DAILY DOSE = 4 TAKE ONE TABLET BY MOUTH EVERY 6 HOURS NEEDED FOR PAIN MAXIMUM DAILY DOSE = 4 SOLD: 08/14/2020 [facility] Cyclobenzaprine hydrochloride 10 MG Oral Tablet CYCLOBENZAPR INE HCL 08/13/2020 12:00:00 AM EST tablet 75 TAKE ONE TABLET BY MOUTH THREE TIMES A DAY NEEDED FOR SPASMS AND PAIN MAXIMUM DAILY DOSE = 3 TAKE ONE TABLET BY MOUTH THREE TIMES A DAY NEEDED FOR SPASMS AND PAIN MAXIMUM DAILY DOSE = 3 SOLD: 08/14/2020 [facility] Cyclobenzaprine hydrochloride 10 MG Oral Tablet CYCLOBENZAPR INE HCL 08/13/2020 12:00:00 AM EST tablet 75 TAKE ONE TABLET BY MOUTH THREE TIMES A DAY NEEDED FOR SPASMS AND PAIN MAXIMUM DAILY DOSE = 3 TAKE ONE TABLET BY MOUTH THREE TIMES A DAY NEEDED FOR SPASMS AND PAIN MAXIMUM DAILY DOSE = 3 SOLD: 09/13/2020 [facility] 5 mg 08/12/2020 12:00:00 AM EST tablet 9 TAKE 1 TABLET BY MOUTH AT ONSET OF HEADACHE MAY REPEAT IN 2 HOURS IF NEEDED X 2 TAKE 1 TABLET BY MOUTH AT ONSET OF HEADACHE MAY REPEAT IN 2 HOURS IF NEEDED X 2 SOLD: 08/14/2020 [facility] 5 mg 08/12/2020 12:00:00 AM EST tablet 9 TAKE 1 TABLET BY MOUTH AT ONSET OF HEADACHE MAY REPEAT IN 2 HOURS IF NEEDED X 2 TAKE 1 TABLET BY MOUTH AT ONSET OF HEADACHE MAY REPEAT IN 2 HOURS IF NEEDED X 2 SOLD: 09/11/2020 [facility] 30 mg 08/12/2020 12:00:00 AM EST capsule,delayed release (DR/EC) 30 TAKE ONE CAPSULE BY MOUTH EVERY DAY FOR PAIN TAKE ONE CAPSULE BY MOUTH EVERY DAY FOR PAIN SOLD: 08/14/2020 [facility] 5 mg 08/12/2020 12:00:00 AM EST tablet 9 TAKE 1 TABLET BY MOUTH AT ONSET OF HEADACHE MAY REPEAT IN 2 HOURS IF NEEDED X 2 TAKE 1 TABLET BY MOUTH AT ONSET OF HEADACHE MAY REPEAT IN 2 HOURS IF NEEDED X 2 SOLD: 03/22/2021 [facility] 30 mg 08/12/2020 12:00:00 AM EST capsule,delayed release (DR/EC) 30 TAKE ONE CAPSULE BY MOUTH EVERY DAY FOR PAIN TAKE ONE CAPSULE BY MOUTH EVERY DAY FOR PAIN SOLD: 09/13/2020 [facility] 5 mg 08/12/2020 12:00:00 AM EST tablet 9 TAKE 1 TABLET BY MOUTH AT ONSET OF HEADACHE MAY REPEAT IN 2 HOURS IF NEEDED X 2 TAKE 1 TABLET BY MOUTH AT ONSET OF HEADACHE MAY REPEAT IN 2 HOURS IF NEEDED X 2 SOLD: 10/14/2020 [facility] 5 mg 08/12/2020 12:00:00 AM EST tablet 9 TAKE 1 TABLET BY MOUTH AT ONSET OF HEADACHE MAY REPEAT IN 2 HOURS IF NEEDED X 2 TAKE 1 TABLET BY MOUTH AT ONSET OF HEADACHE MAY REPEAT IN 2 HOURS IF NEEDED X 2 SOLD: 04/27/2021 [facility] 5 mg 08/12/2020 12:00:00 AM EST tablet 9 TAKE 1 TABLET BY MOUTH AT ONSET OF HEADACHE MAY REPEAT IN 2 HOURS IF NEEDED X 2 TAKE 1 TABLET BY MOUTH AT ONSET OF HEADACHE MAY REPEAT IN 2 HOURS IF NEEDED X 2 SOLD: 02/11/2021 [facility] Fluocinolone Acetonide 0.25 MG/ML Topical Cream Fluoci nolone Acetonide 0.025 % Fluocinolone Acetonide 0.025 % 07/29/2020 12:00:00 AM EST suspended Fluocinolone Acetonide 0.025 % eCW1 ([facility]) Fluocinolone Acetonide 0.25 MG/ML Topical Cream Fluoci nolone Acetonide 0.025 % Fluocinolone Acetonide 0.025 % 07/29/2020 12:00:00 AM EST active Fluocinolone Acetonide 0.025 % eCW1 ([facility]) 0.025 % 07/29/2020 12:00:00 AM EST cream 15 APPLY THIN LAYER TO AFFECTED AREAS ON BOTH LEGS TWO TIMES A DAY NEEDED APPLY THIN LAYER TO AFFECTED AREAS ON BOTH LEGS TWO TIMES A DAY NEEDED SOLD: 02/03/2021 [facility] Fluocinolone Acetonide 0.25 MG/ML Topical Cream Fluoci nolone Acetonide 0.025 % Fluocinolone Acetonide 0.025 % 07/29/2020 12:00:00 AM EST suspended Fluocinolone Acetonide 0.025 % eCW1 ([facility]) Fluocinolone Acetonide 0.25 MG/ML Topical Cream Fluoci nolone Acetonide 0.025 % Fluocinolone Acetonide 0.025 % 07/29/2020 12:00:00 AM EST active Fluocinolone Acetonide 0.025 % eCW1 ([facility]) Fluocinolone Acetonide 0.25 MG/ML Topical Cream Fluoci nolone Acetonide 0.025 % Fluocinolone Acetonide 0.025 % 07/29/2020 12:00:00 AM EST active Fluocinolone Acetonide 0.025 % eCW1 ([facility]) Fluocinolone Acetonide 0.25 MG/ML Topical Cream Fluoci nolone Acetonide 0.025 % Fluocinolone Acetonide 0.025 % 07/29/2020 12:00:00 AM EST suspended Fluocinolone Acetonide 0.025 % eCW1 ([facility]) Fluocinolone Acetonide 0.25 MG/ML Topical Cream Fluoci nolone Acetonide 0.025 % Fluocinolone Acetonide 0.025 % 07/29/2020 12:00:00 AM EST active Fluocinolone Acetonide 0.025 % eCW1 ([facility]) Cetirizine HCl 10 MG UNK 07/29/2020 12:00:00 AM EST active Cetirizine HCl 10 MG eCW1 ([facility]) Fluocinolone Acetonide 0.25 MG/ML Topical Cream Fluoci nolone Acetonide 0.025 % Fluocinolone Acetonide 0.025 % 07/29/2020 12:00:00 AM EST suspended Fluocinolone Acetonide 0.025 % eCW1 ([facility]) Cetirizine HCl 10 MG UNK 07/29/2020 12:00:00 AM EST suspended Cetirizine HCl 10 MG eCW1 ([facility]) Fluocinolone Acetonide 0.25 MG/ML Topical Cream Fluoci nolone Acetonide 0.025 % Fluocinolone Acetonide 0.025 % 07/29/2020 12:00:00 AM EST active Fluocinolone Acetonide 0.025 % eCW1 ([facility]) Cetirizine HCl 10 MG UNK 07/29/2020 12:00:00 AM EST active Cetirizine HCl 10 MG eCW1 ([facility]) Cetirizine HCl 10 MG UNK 07/29/2020 12:00:00 AM EST active Cetirizine HCl 10 MG eCW1 ([facility]) Cetirizine HCl 10 MG UNK 07/29/2020 12:00:00 AM EST active Cetirizine HCl 10 MG eCW1 ([facility]) Fluocinolone Acetonide 0.25 MG/ML Topical Cream Fluoci nolone Acetonide 0.025 % Fluocinolone Acetonide 0.025 % 07/29/2020 12:00:00 AM EST suspended Fluocinolone Acetonide 0.025 % eCW1 ([facility]) Cetirizine HCl 10 MG UNK 07/29/2020 12:00:00 AM EST suspended Cetirizine HCl 10 MG eCW1 ([facility]) Cetirizine HCl 10 MG UNK 07/29/2020 12:00:00 AM EST suspended Cetirizine HCl 10 MG eCW1 ([facility]) Fluocinolone Acetonide 0.25 MG/ML Topical Cream Fluoci nolone Acetonide 0.025 % Fluocinolone Acetonide 0.025 % 07/29/2020 12:00:00 AM EST suspended Fluocinolone Acetonide 0.025 % eCW1 ([facility]) Fluocinolone Acetonide 0.25 MG/ML Topical Cream Fluoci nolone Acetonide 0.025 % Fluocinolone Acetonide 0.025 % 07/29/2020 12:00:00 AM EST active Fluocinolone Acetonide 0.025 % eCW1 ([facility]) Cetirizine HCl 10 MG UNK 07/29/2020 12:00:00 AM EST suspended Cetirizine HCl 10 MG eCW1 ([facility]) Cetirizine HCl 10 MG UNK 07/29/2020 12:00:00 AM EST suspended Cetirizine HCl 10 MG eCW1 ([facility]) Fluocinolone Acetonide 0.25 MG/ML Topical Cream Fluoci nolone Acetonide 0.025 % Fluocinolone Acetonide 0.025 % 07/29/2020 12:00:00 AM EST suspended Fluocinolone Acetonide 0.025 % eCW1 ([facility]) Cetirizine HCl 10 MG UNK 07/29/2020 12:00:00 AM EST active Cetirizine HCl 10 MG eCW1 ([facility]) 10 mg 07/29/2020 12:00:00 AM EST tablet 30 TAKE ONE TABLET BY MOUTH AT BEDTIME TAKE ONE TABLET BY MOUTH AT BEDTIME SOLD: 07/29/2020 [facility] Cetirizine HCl 10 MG UNK 07/29/2020 12:00:00 AM EST active Cetirizine HCl 10 MG eCW1 ([facility]) Cetirizine HCl 10 MG UNK 07/29/2020 12:00:00 AM EST suspended Cetirizine HCl 10 MG eCW1 ([facility]) Fluocinolone Acetonide 0.25 MG/ML Topical Cream Fluoci nolone Acetonide 0.025 % Fluocinolone Acetonide 0.025 % 07/29/2020 12:00:00 AM EST suspended Fluocinolone Acetonide 0.025 % eCW1 ([facility]) Cetirizine HCl 10 MG UNK 07/29/2020 12:00:00 AM EST active Cetirizine HCl 10 MG eCW1 ([facility]) Cetirizine HCl 10 MG UNK 07/29/2020 12:00:00 AM EST suspended Cetirizine HCl 10 MG eCW1 ([facility]) Fluocinolone Acetonide 0.25 MG/ML Topical Cream Fluoci nolone Acetonide 0.025 % Fluocinolone Acetonide 0.025 % 07/29/2020 12:00:00 AM EST active Fluocinolone Acetonide 0.025 % eCW1 ([facility]) Cetirizine HCl 10 MG UNK 07/29/2020 12:00:00 AM EST suspended Cetirizine HCl 10 MG eCW1 ([facility]) Cetirizine HCl 10 MG UNK 07/29/2020 12:00:00 AM EST suspended Cetirizine HCl 10 MG eCW1 ([facility]) 0.025 % 07/29/2020 12:00:00 AM EST cream 15 APPLY THIN LAYER TO AFFECTED AREAS ON BOTH LEGS TWO TIMES A DAY NEEDED APPLY THIN LAYER TO AFFECTED AREAS ON BOTH LEGS TWO TIMES A DAY NEEDED SOLD: 07/29/2020 [facility] Cetirizine HCl 10 MG UNK 07/29/2020 12:00:00 AM EST suspended Cetirizine HCl 10 MG eCW1 ([facility]) Cetirizine HCl 10 MG UNK 07/29/2020 12:00:00 AM EST active Cetirizine HCl 10 MG eCW1 ([facility]) Cetirizine HCl 10 MG UNK 07/29/2020 12:00:00 AM EST active Cetirizine HCl 10 MG eCW1 ([facility]) Fluocinolone Acetonide 0.25 MG/ML Topical Cream Fluoci nolone Acetonide 0.025 % Fluocinolone Acetonide 0.025 % 07/29/2020 12:00:00 AM EST suspended Fluocinolone Acetonide 0.025 % eCW1 ([facility]) Fluocinolone Acetonide 0.25 MG/ML Topical Cream Fluoci nolone Acetonide 0.025 % Fluocinolone Acetonide 0.025 % 07/29/2020 12:00:00 AM EST active Fluocinolone Acetonide 0.025 % eCW1 ([facility]) Fluocinolone Acetonide 0.25 MG/ML Topical Cream Fluoci nolone Acetonide 0.025 % Fluocinolone Acetonide 0.025 % 07/29/2020 12:00:00 AM EST suspended Fluocinolone Acetonide 0.025 % eCW1 ([facility]) 0.025 % 07/29/2020 12:00:00 AM EST cream 15 APPLY THIN LAYER TO AFFECTED AREAS ON BOTH LEGS TWO TIMES A DAY NEEDED APPLY THIN LAYER TO AFFECTED AREAS ON BOTH LEGS TWO TIMES A DAY NEEDED SOLD: 01/03/2021 [facility] Fluocinolone Acetonide 0.25 MG/ML Topical Cream Fluoci nolone Acetonide 0.025 % Fluocinolone Acetonide 0.025 % 07/29/2020 12:00:00 AM EST suspended Fluocinolone Acetonide 0.025 % eCW1 ([facility]) Cetirizine HCl 10 MG UNK 07/29/2020 12:00:00 AM EST suspended Cetirizine HCl 10 MG eCW1 ([facility]) Cetirizine HCl 10 MG UNK 07/29/2020 12:00:00 AM EST active Cetirizine HCl 10 MG eCW1 ([facility]) Fluocinolone Acetonide 0.25 MG/ML Topical Cream Fluoci nolone Acetonide 0.025 % Fluocinolone Acetonide 0.025 % 07/29/2020 12:00:00 AM EST suspended Fluocinolone Acetonide 0.025 % eCW1 ([facility]) Cetirizine HCl 10 MG UNK 07/29/2020 12:00:00 AM EST active Cetirizine HCl 10 MG eCW1 ([facility]) Fluocinolone Acetonide 0.25 MG/ML Topical Cream Fluoci nolone Acetonide 0.025 % Fluocinolone Acetonide 0.025 % 07/29/2020 12:00:00 AM EST active Fluocinolone Acetonide 0.025 % eCW1 ([facility]) Cetirizine HCl 10 MG UNK 07/29/2020 12:00:00 AM EST active Cetirizine HCl 10 MG eCW1 ([facility]) Cetirizine HCl 10 MG UNK 07/29/2020 12:00:00 AM EST active Cetirizine HCl 10 MG eCW1 ([facility]) Fluocinolone Acetonide 0.25 MG/ML Topical Cream Fluoci nolone Acetonide 0.025 % Fluocinolone Acetonide 0.025 % 07/29/2020 12:00:00 AM EST active Fluocinolone Acetonide 0.025 % eCW1 ([facility]) Fluocinolone Acetonide 0.25 MG/ML Topical Cream Fluoci nolone Acetonide 0.025 % Fluocinolone Acetonide 0.025 % 07/29/2020 12:00:00 AM EST active Fluocinolone Acetonide 0.025 % eCW1 ([facility]) Cetirizine HCl 10 MG UNK 07/29/2020 12:00:00 AM EST active Cetirizine HCl 10 MG eCW1 ([facility]) Fluocinolone Acetonide 0.25 MG/ML Topical Cream Fluoci nolone Acetonide 0.025 % Fluocinolone Acetonide 0.025 % 07/29/2020 12:00:00 AM EST active Fluocinolone Acetonide 0.025 % eCW1 ([facility]) 0.025 % 07/29/2020 12:00:00 AM EST cream 15 APPLY THIN LAYER TO AFFECTED AREAS ON BOTH LEGS TWO TIMES A DAY NEEDED APPLY THIN LAYER TO AFFECTED AREAS ON BOTH LEGS TWO TIMES A DAY NEEDED SOLD: 10/14/2020 [facility] Fluocinolone Acetonide 0.25 MG/ML Topical Cream Fluoci nolone Acetonide 0.025 % Fluocinolone Acetonide 0.025 % 07/29/2020 12:00:00 AM EST suspended Fluocinolone Acetonide 0.025 % eCW1 ([facility]) Cetirizine HCl 10 MG UNK 07/29/2020 12:00:00 AM EST active Cetirizine HCl 10 MG eCW1 ([facility]) Fluocinolone Acetonide 0.25 MG/ML Topical Cream Fluoci nolone Acetonide 0.025 % Fluocinolone Acetonide 0.025 % 07/29/2020 12:00:00 AM EST active Fluocinolone Acetonide 0.025 % eCW1 ([facility]) Cetirizine HCl 10 MG UNK 07/29/2020 12:00:00 AM EST active Cetirizine HCl 10 MG eCW1 ([facility]) Cetirizine HCl 10 MG UNK 07/29/2020 12:00:00 AM EST suspended Cetirizine HCl 10 MG eCW1 ([facility]) Fluocinolone Acetonide 0.25 MG/ML Topical Cream Fluoci nolone Acetonide 0.025 % Fluocinolone Acetonide 0.025 % 07/29/2020 12:00:00 AM EST active Fluocinolone Acetonide 0.025 % eCW1 ([facility]) Fluocinolone Acetonide 0.25 MG/ML Topical Cream Fluoci nolone Acetonide 0.025 % Fluocinolone Acetonide 0.025 % 07/29/2020 12:00:00 AM EST active Fluocinolone Acetonide 0.025 % eCW1 ([facility]) Fluocinolone Acetonide 0.25 MG/ML Topical Cream Fluoci nolone Acetonide 0.025 % Fluocinolone Acetonide 0.025 % 07/29/2020 12:00:00 AM EST active Fluocinolone Acetonide 0.025 % eCW1 ([facility]) Fluocinolone Acetonide 0.25 MG/ML Topical Cream Fluoci nolone Acetonide 0.025 % Fluocinolone Acetonide 0.025 % 07/29/2020 12:00:00 AM EST active Fluocinolone Acetonide 0.025 % eCW1 ([facility]) Cetirizine HCl 10 MG UNK 07/29/2020 12:00:00 AM EST active Cetirizine HCl 10 MG eCW1 ([facility]) 0.025 % 07/29/2020 12:00:00 AM EST cream 15 APPLY THIN LAYER TO AFFECTED AREAS ON BOTH LEGS TWO TIMES A DAY NEEDED APPLY THIN LAYER TO AFFECTED AREAS ON BOTH LEGS TWO TIMES A DAY NEEDED SOLD: 03/04/2021 [facility] Fluocinolone Acetonide 0.25 MG/ML Topical Cream Fluoci nolone Acetonide 0.025 % Fluocinolone Acetonide 0.025 % 07/29/2020 12:00:00 AM EST suspended Fluocinolone Acetonide 0.025 % eCW1 ([facility]) Fluocinolone Acetonide 0.25 MG/ML Topical Cream Fluoci nolone Acetonide 0.025 % Fluocinolone Acetonide 0.025 % 07/29/2020 12:00:00 AM EST active Fluocinolone Acetonide 0.025 % eCW1 ([facility]) Cetirizine HCl 10 MG UNK 07/29/2020 12:00:00 AM EST active Cetirizine HCl 10 MG eCW1 ([facility]) Fluocinolone Acetonide 0.25 MG/ML Topical Cream Fluoci nolone Acetonide 0.025 % Fluocinolone Acetonide 0.025 % 07/29/2020 12:00:00 AM EST active Fluocinolone Acetonide 0.025 % eCW1 ([facility]) Cetirizine HCl 10 MG UNK 07/29/2020 12:00:00 AM EST suspended Cetirizine HCl 10 MG eCW1 ([facility]) Fluocinolone Acetonide 0.25 MG/ML Topical Cream Fluoci nolone Acetonide 0.025 % Fluocinolone Acetonide 0.025 % 07/29/2020 12:00:00 AM EST active Fluocinolone Acetonide 0.025 % eCW1 ([facility]) Cetirizine HCl 10 MG UNK 07/29/2020 12:00:00 AM EST suspended Cetirizine HCl 10 MG eCW1 ([facility]) Cetirizine HCl 10 MG UNK 07/29/2020 12:00:00 AM EST suspended Cetirizine HCl 10 MG eCW1 ([facility]) Fluocinolone Acetonide 0.25 MG/ML Topical Cream Fluoci nolone Acetonide 0.025 % Fluocinolone Acetonide 0.025 % 07/29/2020 12:00:00 AM EST active Fluocinolone Acetonide 0.025 % eCW1 ([facility]) Cetirizine HCl 10 MG UNK 07/29/2020 12:00:00 AM EST active Cetirizine HCl 10 MG eCW1 ([facility]) Cetirizine HCl 10 MG UNK 07/29/2020 12:00:00 AM EST suspended Cetirizine HCl 10 MG eCW1 ([facility]) Fluocinolone Acetonide 0.25 MG/ML Topical Cream Fluoci nolone Acetonide 0.025 % Fluocinolone Acetonide 0.025 % 07/29/2020 12:00:00 AM EST suspended Fluocinolone Acetonide 0.025 % eCW1 ([facility]) Fluocinolone Acetonide 0.25 MG/ML Topical Cream Fluoci nolone Acetonide 0.025 % Fluocinolone Acetonide 0.025 % 07/29/2020 12:00:00 AM EST active Fluocinolone Acetonide 0.025 % eCW1 ([facility]) Cetirizine HCl 10 MG UNK 07/29/2020 12:00:00 AM EST active Cetirizine HCl 10 MG eCW1 ([facility]) 10 mg 07/29/2020 12:00:00 AM EST tablet 30 TAKE ONE TABLET BY MOUTH AT BEDTIME TAKE ONE TABLET BY MOUTH AT BEDTIME SOLD: 08/31/2020 [facility] Cetirizine HCl 10 MG UNK 07/29/2020 12:00:00 AM EST active Cetirizine HCl 10 MG eCW1 ([facility]) cetirizine hydrochloride 10 MG Chewable Tablet Cetiriz ine HCl 10 MG Cetirizine HCl 10 MG 07/29/2020 12:00:00 AM EST 1.0 {tablet} ac tive Cetirizine HCl 10 MG eCW1 ([facility]) Cetirizine HCl 10 MG UNK 07/29/2020 12:00:00 AM EST active Cetirizine HCl 10 MG eCW1 ([facility]) cetirizine hydrochloride 10 MG Chewable Tablet Cetiriz ine HCl 10 MG Cetirizine HCl 10 MG 07/29/2020 12:00:00 AM EST 1.0 {tablet} ac tive Cetirizine HCl 10 MG eCW1 ([facility]) cetirizine hydrochloride 10 MG Chewable Tablet Cetiriz ine HCl 10 MG Cetirizine HCl 10 MG 07/29/2020 12:00:00 AM EST 1.0 {tablet} ac tive Cetirizine HCl 10 MG eCW1 ([facility]) Fluocinolone Acetonide 0.25 MG/ML Topical Cream Fluoci nolone Acetonide 0.025 % Fluocinolone Acetonide 0.025 % 07/29/2020 12:00:00 AM EST active Fluocinolone Acetonide 0.025 % eCW1 ([facility]) Fluocinolone Acetonide 0.25 MG/ML Topical Cream Fluoci nolone Acetonide 0.025 % Fluocinolone Acetonide 0.025 % 07/29/2020 12:00:00 AM EST suspended Fluocinolone Acetonide 0.025 % eCW1 ([facility]) Cetirizine HCl 10 MG UNK 07/29/2020 12:00:00 AM EST active Cetirizine HCl 10 MG eCW1 ([facility]) 0.025 % 07/29/2020 12:00:00 AM EST cream 15 APPLY THIN LAYER TO AFFECTED AREAS ON BOTH LEGS TWO TIMES A DAY NEEDED APPLY THIN LAYER TO AFFECTED AREAS ON BOTH LEGS TWO TIMES A DAY NEEDED SOLD: 09/01/2020 [facility] Fluocinolone Acetonide 0.25 MG/ML Topical Cream Fluoci nolone Acetonide 0.025 % Fluocinolone Acetonide 0.025 % 07/29/2020 12:00:00 AM EST active Fluocinolone Acetonide 0.025 % eCW1 ([facility]) Cetirizine HCl 10 MG UNK 07/29/2020 12:00:00 AM EST suspended Cetirizine HCl 10 MG eCW1 ([facility]) Cetirizine HCl 10 MG UNK 07/29/2020 12:00:00 AM EST active Cetirizine HCl 10 MG eCW1 ([facility]) Fluocinolone Acetonide 0.25 MG/ML Topical Cream Fluoci nolone Acetonide 0.025 % Fluocinolone Acetonide 0.025 % 07/29/2020 12:00:00 AM EST suspended Fluocinolone Acetonide 0.025 % eCW1 ([facility]) 625 mg 07/24/2020 12:00:00 AM EST tablet 60 TAKE 1-2 CAPSULES BY MOUTH 1-2 TIMES A DAY TAKE 1-2 CAPSULES BY MOUTH 1-2 TIMES A DAY SOLD: 10/15/2020 [facility] 625 mg 07/24/2020 12:00:00 AM EST tablet 60 TAKE 1-2 CAPSULES BY MOUTH 1-2 TIMES A DAY TAKE 1-2 CAPSULES BY MOUTH 1-2 TIMES A DAY SOLD: 09/01/2020 [facility] 625 mg 07/24/2020 12:00:00 AM EST tablet 60 TAKE 1-2 CAPSULES BY MOUTH 1-2 TIMES A DAY TAKE 1-2 CAPSULES BY MOUTH 1-2 TIMES A DAY SOLD: 07/24/2020 [facility] 2.5-0.025 mg 07/22/2020 12:00:00 AM EST tablet 60 TAKE 1 TABLET BY MOUTH UP TO TWICE DAILY FOR DIARRHEA (IF HAVING DIZZINESS AND LIGHT HEADED, HOLD AND CALL CLINIC) MAXIMUM DAILY DOSE = 2 TAKE 1 TABLET BY MOUTH UP TO TWICE DAILY FOR DIARRHEA (IF HAVING DIZZINESS AND LIGHT HEADED, HOLD AND CALL CLINIC) MAXIMUM DAILY DOSE = 2 SOLD: 07/24/2020 [facility] 520 MG Oral Capsule Psyllium Fiber 07/22/2020 12:00:00 AM EST ORAL active MEDENT ([facility], ) 20 mg 07/16/2020 12:00:00 AM EST tablet 90 TAKE 1 TABLET BY MOUTH 2-3 TIMES A DAY, TAKE AT LEAST 15 MINUTES BEFORE MEALS ( FOR DIARRHEA AND ABDOMINAL CRAMPS) TAKE 1 TABLET BY MOUTH 2-3 TIMES A DAY, TAKE AT LEAST 15 MINUTES BEFORE MEALS ( FOR DIARRHEA AND ABDOMINAL CRAMPS) SOLD: 07/17/2020 [facility] 150 mg 07/16/2020 12:00:00 AM EST capsule 90 TAKE ONE CAPSULE BY MOUTH THREE TIMES A DAY FOR PAIN MAXIMUM DAILY DOSE = 3 TAKE ONE CAPSULE BY MOUTH THREE TIMES A DAY FOR PAIN MAXIMUM DAILY DOSE = 3 SOLD: 07/17/2020 [facility] 4 gram 07/14/2020 12:00:00 AM EST powder 378 USE 1 SCOOP TWO TIMES A DAY USE 1 SCOOP TWO TIMES A DAY SOLD: 11/16/2020 [facility] 4 gram 07/14/2020 12:00:00 AM EST powder 378 USE 1 SCOOP TWO TIMES A DAY USE 1 SCOOP TWO TIMES A DAY SOLD: 08/11/2020 [facility] 4 gram 07/14/2020 12:00:00 AM EST powder 378 USE 1 SCOOP TWO TIMES A DAY USE 1 SCOOP TWO TIMES A DAY SOLD: 09/14/2020 [facility] 4 gram 07/14/2020 12:00:00 AM EST powder 378 USE 1 SCOOP TWO TIMES A DAY USE 1 SCOOP TWO TIMES A DAY SOLD: 10/14/2020 [facility] Acyclovir 400 MG Oral Tablet ACYCLOVIR 07/13/2020 12:00:00 AM EST tabl et 60 TAKE ONE TABLET BY MOUTH TWICE A DAY TAKE ONE TABLET BY MOUTH TWICE A DAY SOLD: 01/06/2021 [facility] Acyclovir 400 MG Oral Tablet ACYCLOVIR 07/13/2020 12:00:00 AM EST tabl et 60 TAKE ONE TABLET BY MOUTH TWICE A DAY TAKE ONE TABLET BY MOUTH TWICE A DAY SOLD: 03/07/2021 [facility] Acyclovir 400 MG Oral Tablet ACYCLOVIR 07/13/2020 12:00:00 AM EST tabl et 60 TAKE ONE TABLET BY MOUTH TWICE A DAY TAKE ONE TABLET BY MOUTH TWICE A DAY SOLD: 04/24/2021 [facility] Acyclovir 400 MG Oral Tablet ACYCLOVIR 07/13/2020 12:00:00 AM EST tabl et 60 TAKE ONE TABLET BY MOUTH TWICE A DAY TAKE ONE TABLET BY MOUTH TWICE A DAY SOLD: 08/11/2020 [facility] Acyclovir 400 MG Oral Tablet ACYCLOVIR 07/13/2020 12:00:00 AM EST tabl et 60 TAKE ONE TABLET BY MOUTH TWICE A DAY TAKE ONE TABLET BY MOUTH TWICE A DAY SOLD: 10/12/2020 [facility] Acyclovir 400 MG Oral Tablet ACYCLOVIR 07/13/2020 12:00:00 AM EST tabl et 60 TAKE ONE TABLET BY MOUTH TWICE A DAY TAKE ONE TABLET BY MOUTH TWICE A DAY SOLD: 09/14/2020 [facility] Acyclovir 400 MG Oral Tablet ACYCLOVIR 07/13/2020 12:00:00 AM EST tabl et 60 TAKE ONE TABLET BY MOUTH TWICE A DAY TAKE ONE TABLET BY MOUTH TWICE A DAY SOLD: 12/09/2020 [facility] Acyclovir 400 MG Oral Tablet ACYCLOVIR 07/13/2020 12:00:00 AM EST tabl et 60 TAKE ONE TABLET BY MOUTH TWICE A DAY TAKE ONE TABLET BY MOUTH TWICE A DAY SOLD: 02/04/2021 [facility] Acyclovir 400 MG Oral Tablet ACYCLOVIR 07/13/2020 12:00:00 AM EST tabl et 60 TAKE ONE TABLET BY MOUTH TWICE A DAY TAKE ONE TABLET BY MOUTH TWICE A DAY SOLD: 03/25/2021 [facility] Acyclovir 400 MG Oral Tablet ACYCLOVIR 07/13/2020 12:00:00 AM EST tabl et 60 TAKE ONE TABLET BY MOUTH TWICE A DAY TAKE ONE TABLET BY MOUTH TWICE A DAY SOLD: 05/22/2021 [facility] Acyclovir 400 MG Oral Tablet ACYCLOVIR 07/13/2020 12:00:00 AM EST tabl et 60 TAKE ONE TABLET BY MOUTH TWICE A DAY TAKE ONE TABLET BY MOUTH TWICE A DAY SOLD: 11/10/2020 [facility] 1 mg 07/10/2020 12:00:00 AM EDT tablet 90 TAKE ONE TABLET BY MOUTH EVERY DAY TAKE ONE TABLET BY MOUTH EVERY DAY SOLD: 07/11/2020 [facility] 1 mg 07/10/2020 12:00:00 AM EDT tablet 90 TAKE ONE TABLET BY MOUTH EVERY DAY TAKE ONE TABLET BY MOUTH EVERY DAY SOLD: 10/08/2020 [facility] 1 mg 07/10/2020 12:00:00 AM EDT tablet 90 TAKE ONE TABLET BY MOUTH EVERY DAY TAKE ONE TABLET BY MOUTH EVERY DAY SOLD: 01/05/2021 [facility] 1 mg 07/10/2020 12:00:00 AM EDT tablet 90 TAKE ONE TABLET BY MOUTH EVERY DAY TAKE ONE TABLET BY MOUTH EVERY DAY SOLD: 04/05/2021 [facility] Diclofenac Sodium 0.01 MG/MG Topical Gel [Voltaren] Voltaren 1 % Voltaren 1 % 07/09/2020 12:00:00 AM EDT active Voltaren 1 % eCW1 ([facility]) Diclofenac Sodium 0.01 MG/MG Topical Gel [Voltaren] Voltaren 1 % Voltaren 1 % 07/09/2020 12:00:00 AM EDT active Voltaren 1 % eCW1 ([facility]) Diclofenac Sodium 0.01 MG/MG Topical Gel [Voltaren] Voltaren 1 % Voltaren 1 % 07/09/2020 12:00:00 AM EDT active Voltaren 1 % eCW1 ([facility]) Diclofenac Sodium 0.01 MG/MG Topical Gel [Voltaren] Voltaren 1 % Voltaren 1 % 07/09/2020 12:00:00 AM EDT active Voltaren 1 % eCW1 ([facility]) Diclofenac Sodium 0.01 MG/MG Topical Gel [Voltaren] Voltaren 1 % Voltaren 1 % 07/09/2020 12:00:00 AM EDT suspended Voltaren 1 % eCW1 ([facility]) Diclofenac Sodium 0.01 MG/MG Topical Gel [Voltaren] Voltaren 1 % Voltaren 1 % 07/09/2020 12:00:00 AM EDT active Voltaren 1 % eCW1 ([facility]) Diclofenac Sodium 0.01 MG/MG Topical Gel [Voltaren] Voltaren 1 % Voltaren 1 % 07/09/2020 12:00:00 AM EDT active Voltaren 1 % eCW1 ([facility]) Diclofenac Sodium 0.01 MG/MG Topical Gel [Voltaren] Voltaren 1 % Voltaren 1 % 07/09/2020 12:00:00 AM EDT active Voltaren 1 % eCW1 ([facility]) Diclofenac Sodium 0.01 MG/MG Topical Gel [Voltaren] Voltaren 1 % Voltaren 1 % 07/09/2020 12:00:00 AM EDT suspended Voltaren 1 % eCW1 ([facility]) Diclofenac Sodium 0.01 MG/MG Topical Gel [Voltaren] Voltaren 1 % Voltaren 1 % 07/09/2020 12:00:00 AM EDT suspended Voltaren 1 % eCW1 ([facility]) Diclofenac Sodium 0.01 MG/MG Topical Gel [Voltaren] Voltaren 1 % Voltaren 1 % 07/09/2020 12:00:00 AM EDT active Voltaren 1 % eCW1 ([facility]) Diclofenac Sodium 0.01 MG/MG Topical Gel [Voltaren] Voltaren 1 % Voltaren 1 % 07/09/2020 12:00:00 AM EDT suspended Voltaren 1 % eCW1 ([facility]) Diclofenac Sodium 0.01 MG/MG Topical Gel [Voltaren] Voltaren 1 % Voltaren 1 % 07/09/2020 12:00:00 AM EDT active Voltaren 1 % eCW1 ([facility]) Diclofenac Sodium 0.01 MG/MG Topical Gel [Voltaren] Voltaren 1 % Voltaren 1 % 07/09/2020 12:00:00 AM EDT active Voltaren 1 % eCW1 ([facility]) Diclofenac Sodium 0.01 MG/MG Topical Gel [Voltaren] Voltaren 1 % Voltaren 1 % 07/09/2020 12:00:00 AM EDT active Voltaren 1 % eCW1 ([facility]) Diclofenac Sodium 0.01 MG/MG Topical Gel [Voltaren] Voltaren 1 % Voltaren 1 % 07/09/2020 12:00:00 AM EDT suspended Voltaren 1 % eCW1 ([facility]) Diclofenac Sodium 0.01 MG/MG Topical Gel [Voltaren] Voltaren 1 % Voltaren 1 % 07/09/2020 12:00:00 AM EDT active Voltaren 1 % eCW1 ([facility]) Diclofenac Sodium 0.01 MG/MG Topical Gel [Voltaren] Voltaren 1 % Voltaren 1 % 07/09/2020 12:00:00 AM EDT active Voltaren 1 % eCW1 ([facility]) Diclofenac Sodium 0.01 MG/MG Topical Gel [Voltaren] Voltaren 1 % Voltaren 1 % 07/09/2020 12:00:00 AM EDT active Voltaren 1 % eCW1 ([facility]) Diclofenac Sodium 0.01 MG/MG Topical Gel [Voltaren] Voltaren 1 % Voltaren 1 % 07/09/2020 12:00:00 AM EDT active Voltaren 1 % eCW1 ([facility]) Diclofenac Sodium 0.01 MG/MG Topical Gel [Voltaren] Voltaren 1 % Voltaren 1 % 07/09/2020 12:00:00 AM EDT active Voltaren 1 % eCW1 ([facility]) Diclofenac Sodium 0.01 MG/MG Topical Gel [Voltaren] Voltaren 1 % Voltaren 1 % 07/09/2020 12:00:00 AM EDT active Voltaren 1 % eCW1 ([facility]) Diclofenac Sodium 0.01 MG/MG Topical Gel [Voltaren] Voltaren 1 % Voltaren 1 % 07/09/2020 12:00:00 AM EDT active Voltaren 1 % eCW1 ([facility]) Diclofenac Sodium 0.01 MG/MG Topical Gel [Voltaren] Voltaren 1 % Voltaren 1 % 07/09/2020 12:00:00 AM EDT suspended Voltaren 1 % eCW1 ([facility]) Diclofenac Sodium 0.01 MG/MG Topical Gel [Voltaren] Voltaren 1 % Voltaren 1 % 07/09/2020 12:00:00 AM EDT active Voltaren 1 % eCW1 ([facility]) Diclofenac Sodium 0.01 MG/MG Topical Gel [Voltaren] Voltaren 1 % Voltaren 1 % 07/09/2020 12:00:00 AM EDT active Voltaren 1 % eCW1 ([facility]) Diclofenac Sodium 0.01 MG/MG Topical Gel [Voltaren] Voltaren 1 % Voltaren 1 % 07/09/2020 12:00:00 AM EDT suspended Voltaren 1 % eCW1 ([facility]) Diclofenac Sodium 0.01 MG/MG Topical Gel [Voltaren] Voltaren 1 % Voltaren 1 % 07/09/2020 12:00:00 AM EDT active Voltaren 1 % eCW1 ([facility]) Diclofenac Sodium 0.01 MG/MG Topical Gel [Voltaren] Voltaren 1 % Voltaren 1 % 07/09/2020 12:00:00 AM EDT suspended Voltaren 1 % eCW1 ([facility]) Diclofenac Sodium 0.01 MG/MG Topical Gel [Voltaren] Voltaren 1 % Voltaren 1 % 07/09/2020 12:00:00 AM EDT active Voltaren 1 % eCW1 ([facility]) Diclofenac Sodium 0.01 MG/MG Topical Gel [Voltaren] Voltaren 1 % Voltaren 1 % 07/09/2020 12:00:00 AM EDT active Voltaren 1 % eCW1 ([facility]) Diclofenac Sodium 0.01 MG/MG Topical Gel [Voltaren] Voltaren 1 % Voltaren 1 % 07/09/2020 12:00:00 AM EDT suspended Voltaren 1 % eCW1 ([facility]) Diclofenac Sodium 0.01 MG/MG Topical Gel [Voltaren] Voltaren 1 % Voltaren 1 % 07/09/2020 12:00:00 AM EDT suspended Voltaren 1 % eCW1 ([facility]) Diclofenac Sodium 0.01 MG/MG Topical Gel [Voltaren] Voltaren 1 % Voltaren 1 % 07/09/2020 12:00:00 AM EDT active Voltaren 1 % eCW1 ([facility]) Diclofenac Sodium 0.01 MG/MG Topical Gel [Voltaren] Voltaren 1 % Voltaren 1 % 07/09/2020 12:00:00 AM EDT active Voltaren 1 % eCW1 ([facility]) Diclofenac Sodium 0.01 MG/MG Topical Gel [Voltaren] Voltaren 1 % Voltaren 1 % 07/09/2020 12:00:00 AM EDT active Voltaren 1 % eCW1 ([facility]) Diclofenac Sodium 0.01 MG/MG Topical Gel [Voltaren] Voltaren 1 % Voltaren 1 % 07/09/2020 12:00:00 AM EDT suspended Voltaren 1 % eCW1 ([facility]) Diclofenac Sodium 0.01 MG/MG Topical Gel [Voltaren] Voltaren 1 % Voltaren 1 % 07/09/2020 12:00:00 AM EDT active Voltaren 1 % eCW1 ([facility]) Diclofenac Sodium 0.01 MG/MG Topical Gel [Voltaren] Voltaren 1 % Voltaren 1 % 07/09/2020 12:00:00 AM EDT suspended Voltaren 1 % eCW1 ([facility]) Diclofenac Sodium 0.01 MG/MG Topical Gel [Voltaren] Voltaren 1 % Voltaren 1 % 07/09/2020 12:00:00 AM EDT active Voltaren 1 % eCW1 ([facility]) Diclofenac Sodium 0.01 MG/MG Topical Gel [Voltaren] Voltaren 1 % Voltaren 1 % 07/09/2020 12:00:00 AM EDT active Voltaren 1 % eCW1 ([facility]) Diclofenac Sodium 0.01 MG/MG Topical Gel [Voltaren] Voltaren 1 % Voltaren 1 % 07/09/2020 12:00:00 AM EDT suspended Voltaren 1 % eCW1 ([facility]) Diclofenac Sodium 0.01 MG/MG Topical Gel [Voltaren] Voltaren 1 % Voltaren 1 % 07/09/2020 12:00:00 AM EDT active Voltaren 1 % eCW1 ([facility]) Diclofenac Sodium 0.01 MG/MG Topical Gel [Voltaren] Voltaren 1 % Voltaren 1 % 07/09/2020 12:00:00 AM EDT suspended Voltaren 1 % eCW1 ([facility]) Diclofenac Sodium 0.01 MG/MG Topical Gel [Voltaren] Voltaren 1 % Voltaren 1 % 07/09/2020 12:00:00 AM EDT active Voltaren 1 % eCW1 ([facility]) Atropine Sulfate 0.025 MG / Diphenoxylate Hydrochlorid e 2.5 MG Oral Tablet Diphenoxylate Hydrochloride/Atropine Sulfate 07/02/2020 12:00:00 AM EDT ORAL active MEDENT ([facility]) pantoprazole 40 MG Delayed Release Oral Tablet PANTOPRAZOLE SODIUM 06/30/2020 12:00:00 AM EDT tablet,delayed release (DR/EC) 60 T ROGELIO ONE TABLET BY MOUTH TWICE A DAY TAKE ONE TABLET BY MOUTH TWICE A DAY SOLD: 09/28/2020 [facility] pantoprazole 40 MG Delayed Release Oral Tablet PANTOPRAZOLE SODIUM 06/30/2020 12:00:00 AM EDT tablet,delayed release (DR/EC) 60 T ROGELIO ONE TABLET BY MOUTH TWICE A DAY TAKE ONE TABLET BY MOUTH TWICE A DAY SOLD: 08/31/2020 [facility] pantoprazole 40 MG Delayed Release Oral Tablet PANTOPRAZOLE SODIUM 06/30/2020 12:00:00 AM EDT tablet,delayed release (DR/EC) 60 T ROGELIO ONE TABLET BY MOUTH TWICE A DAY TAKE ONE TABLET BY MOUTH TWICE A DAY SOLD: 07/01/2020 [facility] pantoprazole 40 MG Delayed Release Oral Tablet PANTOPRAZOLE SODIUM 06/30/2020 12:00:00 AM EDT tablet,delayed release (DR/EC) 60 T ROGELIO ONE TABLET BY MOUTH TWICE A DAY TAKE ONE TABLET BY MOUTH TWICE A DAY SOLD: 08/01/2020 [facility] 0.025 % (0.035 %) 06/25/2020 12:00:00 AM EDT drops 5 INSTILL ONE TO TWO DROPS IN EACH EYE ONCE A DAY NEEDED INSTILL ONE TO TWO DROPS IN EACH EYE ONC E A DAY NEEDED SOLD: 06/27/2020 [facility] 0.025 % (0.035 %) 06/25/2020 12:00:00 AM EDT drops 5 INSTILL ONE TO TWO DROPS IN EACH EYE ONCE A DAY NEEDED INSTILL ONE TO TWO DROPS IN EACH EYE ONC E A DAY NEEDED SOLD: 08/31/2020 [facility] 90 mcg/actuation 06/25/2020 12:00:00 AM EDT HFA aerosol inha ler 18 INHALE TWO PUFFS BY MOUTH EVERY 4 TO 6 HOURS NEEDED AND 15 MINUTES PRIOR TO EXCERCISE INHALE TWO PUFFS BY MOUTH EVERY 4 TO 6 H OURS NEEDED AND 15 MINUTES PRIOR TO EXCERCISE SOLD: 08/01/2020 [facility] 55 mcg 06/25/2020 12:00:00 AM EDT aerosol,spray 16 SPRAY 2 SPRAYS IN EACH NOSTRIL ONCE A DAY SPRAY 2 SPRAYS IN EACH NOSTRIL ONCE A DAY SOLD: 06/27/2020 [facility] 0.025 % (0.035 %) 06/25/2020 12:00:00 AM EDT drops 5 INSTILL ONE TO TWO DROPS IN EACH EYE ONCE A DAY NEEDED INSTILL ONE TO TWO DROPS IN EACH EYE ONC E A DAY NEEDED SOLD: 08/01/2020 [facility] 90 mcg/actuation 06/25/2020 12:00:00 AM EDT HFA aerosol inha ler 18 INHALE TWO PUFFS BY MOUTH EVERY 4 TO 6 HOURS NEEDED AND 15 MINUTES PRIOR TO EXCERCISE INHALE TWO PUFFS BY MOUTH EVERY 4 TO 6 H OURS NEEDED AND 15 MINUTES PRIOR TO EXCERCISE SOLD: 08/31/2020 [facility] 90 mcg/actuation 06/25/2020 12:00:00 AM EDT HFA aerosol inha ler 18 INHALE TWO PUFFS BY MOUTH EVERY 4 TO 6 HOURS NEEDED AND 15 MINUTES PRIOR TO EXCERCISE INHALE TWO PUFFS BY MOUTH EVERY 4 TO 6 H OURS NEEDED AND 15 MINUTES PRIOR TO EXCERCISE SOLD: 06/27/2020 [facility] 0.01 % (0.1 mg/gram) 06/24/2020 12:00:00 AM EDT cream 42 APPLY ONE HALF GRAM VAGINALLY TWO TIMES A WEEK APPLY ONE HALF GRAM VAGINALLY TWO TIMES A WEEK SOLD: 06/25/2020 [facility] Ciprofloxacin 250 MG Oral Tablet [Cipro] Cipro 250 MG Cipro 250 MG 06/23/2020 12:00:00 AM EDT 1.0 {tablet} active Ci pro 250 MG eCW1 ([facility]) Ciprofloxacin 250 MG Oral Tablet [Cipro] Cipro 250 MG Cipro 250 MG 06/23/2020 12:00:00 AM EDT 1.0 {tablet} active Ci pro 250 MG eCW1 ([facility]) Ciprofloxacin 250 MG Oral Tablet [Cipro] Cipro 250 MG Cipro 250 MG 06/23/2020 12:00:00 AM EDT 1.0 {tablet} suspended Cipro 250 MG eCW1 ([facility]) Ciprofloxacin 250 MG Oral Tablet [Cipro] Cipro 250 MG Cipro 250 MG 06/23/2020 12:00:00 AM EDT 1.0 {tablet} suspended Cipro 250 MG eCW1 ([facility]) Ciprofloxacin 250 MG Oral Tablet [Cipro] Cipro 250 MG Cipro 250 MG 06/23/2020 12:00:00 AM EDT 1.0 {tablet} active Ci pro 250 MG eCW1 ([facility]) Ciprofloxacin 250 MG Oral Tablet [Cipro] Cipro 250 MG Cipro 250 MG 06/23/2020 12:00:00 AM EDT 1.0 {tablet} suspended Cipro 250 MG eCW1 ([facility]) Ciprofloxacin 250 MG Oral Tablet [Cipro] Cipro 250 MG Cipro 250 MG 06/23/2020 12:00:00 AM EDT 1.0 {tablet} suspended Cipro 250 MG eCW1 ([facility]) Ciprofloxacin 250 MG Oral Tablet [Cipro] Cipro 250 MG Cipro 250 MG 06/23/2020 12:00:00 AM EDT 1.0 {tablet} suspended Cipro 250 MG eCW1 ([facility]) Ciprofloxacin 250 MG Oral Tablet [Cipro] Cipro 250 MG Cipro 250 MG 06/23/2020 12:00:00 AM EDT 1.0 {tablet} suspended Cipro 250 MG eCW1 ([facility]) Ciprofloxacin 250 MG Oral Tablet [Cipro] Cipro 250 MG Cipro 250 MG 06/23/2020 12:00:00 AM EDT 1.0 {tablet} suspended Cipro 250 MG eCW1 ([facility]) Ciprofloxacin 250 MG Oral Tablet [Cipro] Cipro 250 MG Cipro 250 MG 06/23/2020 12:00:00 AM EDT 1.0 {tablet} active Ci pro 250 MG eCW1 ([facility]) Ciprofloxacin 250 MG Oral Tablet [Cipro] Cipro 250 MG Cipro 250 MG 06/23/2020 12:00:00 AM EDT 1.0 {tablet} active Ci pro 250 MG eCW1 ([facility]) Ciprofloxacin 250 MG Oral Tablet [Cipro] Cipro 250 MG Cipro 250 MG 06/23/2020 12:00:00 AM EDT 1.0 {tablet} active Ci pro 250 MG eCW1 ([facility]) Ciprofloxacin 250 MG Oral Tablet [Cipro] Cipro 250 MG Cipro 250 MG 06/23/2020 12:00:00 AM EDT 1.0 {tablet} active Ci pro 250 MG eCW1 ([facility]) Ciprofloxacin 250 MG Oral Tablet [Cipro] Cipro 250 MG Cipro 250 MG 06/23/2020 12:00:00 AM EDT 1.0 {tablet} suspended Cipro 250 MG eCW1 ([facility]) Ciprofloxacin 250 MG Oral Tablet [Cipro] Cipro 250 MG Cipro 250 MG 06/23/2020 12:00:00 AM EDT 1.0 {tablet} suspended Cipro 250 MG eCW1 ([facility]) Ciprofloxacin 250 MG Oral Tablet [Cipro] Cipro 250 MG Cipro 250 MG 06/23/2020 12:00:00 AM EDT 1.0 {tablet} active Ci pro 250 MG eCW1 ([facility]) Ciprofloxacin 250 MG Oral Tablet [Cipro] Cipro 250 MG Cipro 250 MG 06/23/2020 12:00:00 AM EDT 1.0 {tablet} suspended Cipro 250 MG eCW1 ([facility]) Ciprofloxacin 250 MG Oral Tablet [Cipro] Cipro 250 MG Cipro 250 MG 06/23/2020 12:00:00 AM EDT 1.0 {tablet} suspended Cipro 250 MG eCW1 ([facility]) Ciprofloxacin 250 MG Oral Tablet [Cipro] Cipro 250 MG Cipro 250 MG 06/23/2020 12:00:00 AM EDT 1.0 {tablet} suspended Cipro 250 MG eCW1 ([facility]) Ciprofloxacin 250 MG Oral Tablet [Cipro] Cipro 250 MG Cipro 250 MG 06/23/2020 12:00:00 AM EDT 1.0 {tablet} active Ci pro 250 MG eCW1 ([facility]) Ciprofloxacin 250 MG Oral Tablet [Cipro] Cipro 250 MG Cipro 250 MG 06/23/2020 12:00:00 AM EDT 1.0 {tablet} active Ci pro 250 MG eCW1 ([facility]) Ciprofloxacin 250 MG Oral Tablet [Cipro] Cipro 250 MG Cipro 250 MG 06/23/2020 12:00:00 AM EDT 1.0 {tablet} suspended Cipro 250 MG eCW1 ([facility]) Ciprofloxacin 250 MG Oral Tablet [Cipro] Cipro 250 MG Cipro 250 MG 06/23/2020 12:00:00 AM EDT 1.0 {tablet} suspended Cipro 250 MG eCW1 ([facility]) Ciprofloxacin 250 MG Oral Tablet [Cipro] Cipro 250 MG Cipro 250 MG 06/23/2020 12:00:00 AM EDT 1.0 {tablet} suspended Cipro 250 MG eCW1 ([facility]) Ciprofloxacin 250 MG Oral Tablet [Cipro] Cipro 250 MG Cipro 250 MG 06/23/2020 12:00:00 AM EDT 1.0 {tablet} suspended Cipro 250 MG eCW1 ([facility]) Ciprofloxacin 250 MG Oral Tablet [Cipro] Cipro 250 MG Cipro 250 MG 06/23/2020 12:00:00 AM EDT 1.0 {tablet} suspended Cipro 250 MG eCW1 ([facility]) Ciprofloxacin 250 MG Oral Tablet [Cipro] Cipro 250 MG Cipro 250 MG 06/23/2020 12:00:00 AM EDT 1.0 {tablet} active Ci pro 250 MG eCW1 ([facility]) Ciprofloxacin 250 MG Oral Tablet [Cipro] Cipro 250 MG Cipro 250 MG 06/23/2020 12:00:00 AM EDT 1.0 {tablet} active Ci pro 250 MG eCW1 ([facility]) Ciprofloxacin 250 MG Oral Tablet [Cipro] Cipro 250 MG Cipro 250 MG 06/23/2020 12:00:00 AM EDT 1.0 {tablet} suspended Cipro 250 MG eCW1 ([facility]) Ciprofloxacin 250 MG Oral Tablet [Cipro] Cipro 250 MG Cipro 250 MG 06/23/2020 12:00:00 AM EDT 1.0 {tablet} suspended Cipro 250 MG eCW1 ([facility]) Ciprofloxacin 250 MG Oral Tablet [Cipro] Cipro 250 MG Cipro 250 MG 06/23/2020 12:00:00 AM EDT 1.0 {tablet} active Ci pro 250 MG eCW1 ([facility]) Ciprofloxacin 250 MG Oral Tablet [Cipro] Cipro 250 MG Cipro 250 MG 06/23/2020 12:00:00 AM EDT 1.0 {tablet} active Ci pro 250 MG eCW1 ([facility]) Ciprofloxacin 250 MG Oral Tablet [Cipro] Cipro 250 MG Cipro 250 MG 06/23/2020 12:00:00 AM EDT 1.0 {tablet} suspended Cipro 250 MG eCW1 ([facility]) Ciprofloxacin 250 MG Oral Tablet [Cipro] Cipro 250 MG Cipro 250 MG 06/23/2020 12:00:00 AM EDT 1.0 {tablet} active Ci pro 250 MG eCW1 ([facility]) Ciprofloxacin 250 MG Oral Tablet [Cipro] Cipro 250 MG Cipro 250 MG 06/23/2020 12:00:00 AM EDT 1.0 {tablet} suspended Cipro 250 MG eCW1 ([facility]) Ciprofloxacin 250 MG Oral Tablet [Cipro] Cipro 250 MG Cipro 250 MG 06/23/2020 12:00:00 AM EDT 1.0 {tablet} active Ci pro 250 MG eCW1 ([facility]) Ciprofloxacin 250 MG Oral Tablet [Cipro] Cipro 250 MG Cipro 250 MG 06/23/2020 12:00:00 AM EDT 1.0 {tablet} active Ci pro 250 MG eCW1 ([facility]) Ciprofloxacin 250 MG Oral Tablet [Cipro] Cipro 250 MG Cipro 250 MG 06/23/2020 12:00:00 AM EDT 1.0 {tablet} active Ci pro 250 MG eCW1 ([facility]) Ciprofloxacin 250 MG Oral Tablet [Cipro] Cipro 250 MG Cipro 250 MG 06/23/2020 12:00:00 AM EDT 1.0 {tablet} active Ci pro 250 MG eCW1 ([facility]) Ciprofloxacin 250 MG Oral Tablet [Cipro] Cipro 250 MG Cipro 250 MG 06/23/2020 12:00:00 AM EDT 1.0 {tablet} active Ci pro 250 MG eCW1 ([facility]) 250 mg 06/23/2020 12:00:00 AM EDT tablet 6 TAKE ONE TABLET BY MOUTH EVERY 12 HOURS FOR 3 DAYS TAKE ONE TABLET BY MOUTH EVERY 12 HOURS FOR 3 DAYS CORTNEY [facility] Ciprofloxacin 250 MG Oral Tablet [Cipro] Cipro 250 MG Cipro 250 MG 06/23/2020 12:00:00 AM EDT 1.0 {tablet} suspended Cipro 250 MG eCW1 ([facility]) Ciprofloxacin 250 MG Oral Tablet [Cipro] Cipro 250 MG Cipro 250 MG 06/23/2020 12:00:00 AM EDT 1.0 {tablet} active Ci pro 250 MG eCW1 ([facility]) Ciprofloxacin 250 MG Oral Tablet [Cipro] Cipro 250 MG Cipro 250 MG 06/23/2020 12:00:00 AM EDT 1.0 {tablet} active Ci pro 250 MG eCW1 ([facility]) Ciprofloxacin 250 MG Oral Tablet [Cipro] Cipro 250 MG Cipro 250 MG 06/23/2020 12:00:00 AM EDT 1.0 {tablet} active Ci pro 250 MG eCW1 ([facility]) Ciprofloxacin 250 MG Oral Tablet [Cipro] Cipro 250 MG Cipro 250 MG 06/23/2020 12:00:00 AM EDT 1.0 {tablet} active Ci pro 250 MG eCW1 ([facility]) 100 million cell 06/22/2020 12:00:00 AM EDT granules in pack et 30 USE 1 PACKET DAILY USE 1 PACKET DAILY SOLD: 06/22/2020 [facility] 150 mg 06/16/2020 12:00:00 AM EDT capsule 90 TAKE ONE CAPSULE BY MOUTH THREE TIMES A DAY FOR PAIN MAXIMUM DAILY DOSE = 3 TAKE ONE CAPSULE BY MOUTH THREE TIMES A DAY FOR PAIN MAXIMUM DAILY DOSE = 3 SOLD: 06/17/2020 [facility] 50 mg 06/16/2020 12:00:00 AM EDT tablet 28 TAKE ONE TABLET BY MOUTH EVERY 6 HOURS NEEDED FOR PAIN MAXIMUM DAILY DOSE = 4 TABLETS TAKE ONE TABLET BY MOUTH EVERY 6 HOURS NEEDED FOR PAIN MAXIMUM DAILY DOSE = 4 TABLETS SOLD: 06/17/2020 [facility] Cyclobenzaprine hydrochloride 10 MG Oral Tablet CYCLOBENZAPR INE HCL 05/11/2020 12:00:00 AM EDT tablet 90 TAKE ONE TABLET BY MOUTH THREE TIMES A DAY NEEDED FOR SPASM TAKE ONE TABLET BY MOUTH THREE TIMES A DAY NEEDED F OR SPASM SOLD: 05/11/2020 [facility] 30 mg 05/11/2020 12:00:00 AM EDT capsule,delayed release (DR/EC) 30 TAKE ONE CAPSULE BY MOUTH EVERY DAY TAKE ONE CAPSULE BY MOUTH EVERY DAY SOLD: 05/11/2020 [facility] 50 mg 05/11/2020 12:00:00 AM EDT tablet 90 TAKE ONE TABLET BY MOUTH EVERY 6 HOURS NEEDED MAXIMUM DAILY DOSE = 4 TAKE ONE TABLET BY MOUTH EVERY 6 HOURS A S NEEDED MAXIMUM DAILY DOSE = 4 SOLD: 05/11/2020 [facility] 150 mg 05/11/2020 12:00:00 AM EDT capsule 90 TAKE ONE CAPSULE BY MOUTH THREE TIMES A DAY MAXIMUM DAILY DOSE = 3 TAKE ONE CAPSULE BY MOUTH THREE TIMES A DAY MAXIMUM DAILY DOSE = 3 SOLD: 05/11/2020 [facility] Cyclobenzaprine hydrochloride 10 MG Oral Tablet CYCLOBENZAPR INE HCL 05/11/2020 12:00:00 AM EDT tablet 90 TAKE ONE TABLET BY MOUTH THREE TIMES A DAY NEEDED FOR SPASM TAKE ONE TABLET BY MOUTH THREE TIMES A DAY NEEDED F OR SPASM SOLD: 06/14/2020 [facility] 30 mg 05/11/2020 12:00:00 AM EDT capsule,delayed release (DR/EC) 30 TAKE ONE CAPSULE BY MOUTH EVERY DAY TAKE ONE CAPSULE BY MOUTH EVERY DAY SOLD: 06/14/2020 [facility] 1 mg 04/07/2020 12:00:00 AM EDT tablet 30 TAKE ONE TABLET BY MOUTH EVERY DAY TAKE ONE TABLET BY MOUTH EVERY DAY SOLD: 06/14/2020 [facility] 20 mg 03/17/2020 12:00:00 AM EDT tablet 90 TAKE 1 TABLET BY MOUTH 2-3 TIMES A DAY, TAKE AT LEAST 15 MINUTES BEFORE MEALS ( FOR DIARRHEA AND ABDOMINAL CRAMPS) TAKE 1 TABLET BY MOUTH 2-3 TIMES A DAY, TAKE AT LEAST 15 MINUTES BEFORE MEALS ( FOR DIARRHEA AND ABDOMINAL CRAMPS) SOLD: 06/14/2020 [facility] . UNIT 03/02/2020 12:00:00 AM EDT Capsule 30 TAKE ONE CAPSULE BY MOUTH EVERY DAY TAKE ONE CAPSULE BY MOUTH EVERY DAY SOLD: 05/24/2020 [facility] 4 gram 02/17/2020 12:00:00 AM EDT powder 378 USE 1 SCOOP TWO TIMES A DAY USE 1 SCOOP TWO TIMES A DAY SOLD: 05/05/2020 [facility] 4 gram 02/17/2020 12:00:00 AM EDT powder 378 USE 1 SCOOP TWO TIMES A DAY USE 1 SCOOP TWO TIMES A DAY SOLD: 06/14/2020 [facility] Acyclovir 400 MG Oral Tablet ACYCLOVIR 06/19/2019 12:00:00 AM EDT tabl et 60 TAKE ONE TABLET BY MOUTH TWICE A DAY TAKE ONE TABLET BY MOUTH TWICE A DAY SOLD: 05/05/2020 [facility] Acyclovir 400 MG Oral Tablet ACYCLOVIR 06/19/2019 12:00:00 AM EDT tabl et 60 TAKE ONE TABLET BY MOUTH TWICE A DAY TAKE ONE TABLET BY MOUTH TWICE A DAY SOLD: 06/14/2020 [facility] Insurance Providers Payer name Policy type / Coverage type Policy ID Covered green party ID Covered green party's relationship to padilla Policy Padilla Plan Information [employer] [id number] SP [id number] WELL[place] CONNECTION [id number] [place] [id number] JUAQUIN [facility] WC W [id number] Empl [id number] [employer]IS[employer] [facility] [id number] SP [id number] [employer] Workers Compensation [id number] Self CSP OF [facility] [id number] [place] [id number] [employer]UAQU[place] [facility] [id number] SP [id number] Esis (WC) Workers Compensation [id number] Self 3 [id number] Esis (WC) Workers Compensation [id number] Self 3 [id number] [employer]sis (WC) Workers Compensation [id number] Self 3 [id number] [employer]sis ([place]) Workers Compensation [id number] Self 3 [id number] [employer] [place]) Workers Compensation [id number] Self 3 [id number] [employer] ([place]) Workers Compensation [id number] Self 3 [id number] [facility] I [id number] Self [id number] [facility] Community Plan Commercial [id number] Self [id number] [facility] [employer] MCDO [id number] SP [id number] [facility] [employer] M[employer]O [id number] SP [id number] [facility] [employer] [id number] Self [id number] ANSI-Not a Secondary Insurance [id number] ANSI-Medicaid [id number] ANSI-Not a Secondary Insurance [id number] ANSI-Medicaid [id number] ANSI-Medicaid [id number] ANSI-Medicaid [id number] ANSI-Not a Secondary Insurance [id number] ANSI-Not a Secondary Insurance [id number] ANSI-Medicaid [id number] ANSI-Medicaid [id number] ANSI-Medicaid [id number] ANSI-Medicaid [id number] ANSI-Not a Secondary Insurance [id number] ANSI-Not a Secondary Insurance [id number] ANSI-Medicaid [id number] ANSI-Medicaid [id number] ANSI-Medicaid [id number] ANSI-Not a Secondary Insurance [id number] ANSI-Medicaid [id number] ANSI-Medicaid [id number] ANSI-Medicaid [id number] ANSI-Not a Secondary Insurance [id number] ANSI-Medicaid [id number] ANSI-Not a Secondary Insurance [id number] ANSI-Medicaid [id number] ANSI-Medicaid [id number] ANSI-Not a Secondary Insurance [id number] ANSI-Medicaid [id number] ANSI-Medicaid [id number] ANSI-Medicaid [id number] ANSI-Not a Secondary Insurance [id number] ANSI-Medicaid [id number] ANSI-Not a Secondary Insurance [id number] ANSI-Medicaid [id number] ANSI-Medicaid [id number] ANSI-Medicaid [id number] ANSI-Not a Secondary Insurance [id number] ANSI-Medicaid [id number] ANSI-Medicaid [id number] ANSI-Not a Secondary Insurance [id number] ANSI-Medicaid [id number] ANSI-Not a Secondary Insurance [id number] ANSI-Medicaid [id number] ANSI-Medicaid [id number] ANSI-Not a Secondary Insurance [id number]-[id number] ANSI-Medicaid [id number] ANSI-Medicaid [id number] ANSI-Medicaid [id number] ANSI-Not a Secondary Insurance [id number]-gd94-y2453 [id number] ANSI-Medicaid [id number] ANSI-Medicaid [id number] ANSI-Not a Secondary Insurance [id number]-[id number] ANSI-Not a Secondary Insurance [id number]-lo0k-1248-b82y-c31r0 si73ev6 [id number]-fc1j-6583-y88u-[id number] ANSI-Medicaid [id number] ANSI-Medicaid [id number] ANSI-Not a Secondary Insurance [id number]-[id number] [id number]-[id number] ANSI-Medicaid [id number] ANSI-Medicaid [id number] ANSI-Medicaid [id number] ANSI-Medicaid [id number]-x4x5-66qo-[id number] ANSI-Not a Secondary Insurance [id number]-4e87-e2m3-86h5r [id number]-5l20-[id number] ANSI-Medicaid [id number] ANSI-Medicaid [id number]-[id number] ANSI-Not a Secondary Insurance [id number] ANSI-Medicaid [id number] ANSI-Medicaid [id number] ANSI-Not a Secondary Insurance [id number]-k74m-7534-z7gu-gtx96 pe2896m [id number]-r60z-6129-m7bl-uzg79mx2209v ANSI-Medicaid [id number] ANSI-Not a Secondary Insurance [id number]-p7v6-2dr8l [id number]-[id number] ANSI-Medicaid [id number] ANSI-Not a Secondary Insurance [id number]-[id number]-971u-213u-[id number] ANSI-Medicaid [id number]-[id number] ANSI-Medicaid [id number] ANSI-Medicaid [id number] ANSI-Not a Secondary Insurance [id number]-[id number] [id number] [id number]-596n-[id number] ANSI-Medicaid [id number] [facility] [employer] (HMO) [id number] Self [id number] ANSI-Medicaid [id number] ANSI-Not a Secondary Insurance [id number]-926e8 [id number]-om71-0uz9-46bx-067y568hj45j ANSI-Medicaid [id number] ANSI-Medicaid [id number] ANSI-Medicaid [id number] ANSI-Not a Secondary Insurance [id number]-5wst-s387-lm076 tb3hi7q [id number]-4xjp-f968-nm173vg8et5c ANSI-Medicaid [id number] ANSI-Not a Secondary Insurance [id number]-y5ar-3y2ap [id number]-f1be-[id number] ANSI-Medicaid [id number] ANSI-Medicaid [id number] ANSI-Not a Secondary Insurance [id number]-wi71-9n27-568k-[id number] ANSI-Medicaid [id number] ANSI-Medicaid [id number] ANSI-Not a Secondary Insurance [id number] ANSI-Medicaid [id number] ANSI-Medicaid [id number] ANSI-Medicaid [id number] ANSI-Not a Secondary Insurance [id number] [facility] Health Maintenance Organization (HMO) [id number] Self [id number] ANSI-Medicaid [id number] ANSI-Medicaid [id number] ANSI-Not a Secondary Insurance [id number] ANSI-Not a Secondary Insurance [id number] ANSI-Medicaid [id number] ANSI-Medicaid [id number] [facility] [id number] Preferred Provider Organization (PPO) [id number] ANSI-Not a Secondary Insurance [id number] ANSI-Medicaid [id number] ANSI-Medicaid [id number] ANSI-Not a Secondary Insurance [id number] ANSI-Medicaid [id number] ANSI-Medicaid [id number] ANSI-Medicaid [id number] ANSI-Not a Secondary Insurance [id number] ANSI-Medicaid [id number] [facility] Health Maintenance Organization (HMO) [id number] Self [id number] [facility] Health Maintenance Organization (HMO) [id number] Self [id number] [facility] Health Maintenance Organization (HMO) [id number] Self [id number] [facility] Health Maintenance Organization (HMO) [id number] Self [id number] [facility] Health Maintenance Organization (O) [id number] Self [id number] [facility] CLAIMS DOES NOT APPLY SP DOES NOT APPLY [employer] Medicaid Medicaid [id number] Self [id number] [employer] Medicaid Medicaid [id number] Self [facility] CLAIMS [id number] SP [id number] [facility] WC CLAIMS [id number] SP [id number] [facility] CLAIMS [id number] SP [id number] [facility] Commercial [id number] Self [facility] WC CLAIMS [id number] SP [id number] [facility] WC CLAIMS UNK SP UNK [facility] WC CLAIMS [id number] SP [id number] [facility] [id number] SP [id number] [place] [id number] Self MEDICAID P [id number] S [id number] ONE CALL CARE MANAGEMENT O UNAVAILABLE [id number] S UNAVAILABLE ONE [employer]ARE MANAGEMENT P [id number] S [id number] CIG[employer] NF [id number] SP [id number] [employer] W.C. [id number] SP [id number] [employer] PROGRAM P [id number] S [id number] SELF PAY UNAVAILABLE SP UNAVAILA BLE [facility] P [id number] S [id number] [facility] [id number] SP [id number] [facility] PLAN MCDO [id number] SP [id number] [facility] CLAIMS [id number] SP [id number] [facility] WC CLAIMS [id number] SP [id number] [place] [id number] SP [id number] [facility] WC CLAIMS [id number] SP [id number] [facility] CLAIMS [id number] [facility] [id number] SP [id number] [facility] WC CLAIMS [id number] SP [id number] [facility] O [id number] S [id number] SELF PAY ONLY [id number] SP [id number] MEDICAID [id number] SP [id number] [facility] [id number] SP [id number] [facility] WC CLAIMS [id number] SP [id number] ANSI-Medicaid [id number] ANSI-Not a Secondary Insurance [id number] ANSI-Medicaid [id number] ANSI-Medicaid [id number] ANSI-Medicaid [id number] Problems, Conditions, and Diagnoses Code Display Name Description Problem Type Effective Dates Data Source(s) R73.03 [id number] Pre-diabetes Problem 06/29/2021 12:00:00 AM EDT eCW1 ([facility]) M70.21 [id number] Olecranon bursitis of right elbow Prob yaima 06/29/2021 12:00:00 AM EDT eCW1 ([facility]) K76.0 103608135 NAFL (nonalcoholic fatty liver) Problem 06/28/2021 12:00:00 AM EDT eCW1 ([facility]) A60.00 58090603 Genital herpes simplex, unspecified site Problem 06/24/2021 12:00:00 AM EDT eCW1 ([facility]) J45.30 [id number] Mild persistent asthma without complicati on Problem 06/18/2021 12:00:00 AM EDT eCW1 ([facility]) J45.40 160044854 Moderate persistent asthma, unsp ecified whether complicated Problem 06/18/2021 12:00:00 AM EDT eCW1 ([facility]) K76.0 [id number] Hepatic steatosis Problem 06/01/2021 12:00:0 0 AM EDT eCW1 ([facility]) M50.10 [id number] Cervical disc disord er with radiculopathy, unspecified cervical region Problem 05/26/2021 12:00:00 AM EDT eCW1 ([facility]) R53.83 80066633 Fatigue, unspecified type Problem 02/19/2021 12:00:00 AM EDT eCW1 ([facility]) R35.0 684108913 Urinary frequency Problem 02/19/2021 12:00:0 0 AM EDT eCW1 ([facility]) G47.9 40014956 Sleep disturbance Problem 02/19/2021 12:00:0 0 AM EDT eCW1 ([facility]) R60.9 927415268 Dependent edema Problem 02/19/2021 12:00:00 AM EDT eCW1 ([facility]) F32.9 32084213 Depression, unspecified depression type P roblem 02/15/2021 12:00:00 AM EDT eCW1 ([facility]) L21.9 23008331 Seborrheic dermatitis Problem 02/09/2021 12: 00:00 AM EDT eCW1 ([facility]) L70.0 396742822 Comedonal acne Problem 02/09/2021 12:00:00 A M EDT eCW1 ([facility]) E78.2 Mixed hyperlipidemia Mixed hyperlipidemia Problem 02/02/2021 12:00:00 AM EDT MED[facility] ([facility]) Z71.3 Dietary management surveillance Dietary management michael veillance Problem 02/02/2021 12:00:00 AM EDT [facility] ([facility]) E66.09 Obesity Obesity Problem 02/02/2021 12:00:00 AM ED T MED[facility] ([facility]) E78.1 Pure hyperglyceridemia Pure hyperglyceridemia Problem 02/02/2021 12:00:00 AM EDT [facility] ([facility]) R07.9 Chest pain Chest pain Problem 02/02/2021 12:00:00 AM ED T [facility] ([facility]) E78.2 [id number] Mixed hyperlipidemia Problem 01/24/2021 12:0 0:00 AM EDT eCW1 ([facility]) G47.33 71870422 LOU (obstructive sleep apnea) Problem 01/05/2021 12:00:00 AM EDT eCW1 ([facility]) L71.0 935532212 Perioral dermatitis Problem 12/29/2020 12:00 :00 AM EDT eCW1 ([facility]) M79.7 417497455 Fibromyalgia Problem 12/20/2020 12:00:00 AM EDT eCW1 ([facility]) G43.709 438208135 Chronic migraine Problem 11/03/2020 12:00:00 AM EST eCW1 ([facility]) J30.2 022230041 Seasonal 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, unspecified 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 ) Note: Followed by PCP. Z01.411 [id number] Encounter for gyneco logical examination (general) (routine) with abnormal findings Problem 06/23/2020 12:00:00 AM EDT eCW1 ([facility]) Surgeries/Procedures Procedure Description Date Indications Data Source(s) OFFICE OUTPATIENT VISIT 15 MINUTES 06/15/2021 12:00:00 AM EDT [facility] ([facility], ) BRNCDILAT RSPSE SPMTRY PRE&POST-BRNCDILAT ADMN 021 12:00:00 AM EDT [facility] ([facility]) OFFICE OUTPATIENT VISIT 15 MINUTES 06/13/2021 12:00:00 AM EDT [facility] ([facility]) Pain Procedure Log 03/23/2021 12:00:00 AM EDT eCW1 ([facility]) Completion of procedural visit when meets criteria 03/09/2021 12:00:00 AM EDT eCW1 ([facility]) OFFICE OUTPATIENT VISIT 15 MINUTES 02/17/2021 12:00:00 AM EDT [facility] ([facility], ) OFFICE OUTPATIENT NEW 30 MINUTES 02/15/2021 12:00:00 A M EDT [facility] ([facility] ) ECG ROUTINE ECG W/LEAST 12 LDS W/I&R 02/02/2021 12:00: 00 AM EDT [facility] ([facility]) Endoscopy Upper GI Biopsy 01/28/2021 12:00:00 AM EDT [facility] ([facility]) Med: Derm 1% Lidocaine with Epinephrine Injection Intr adermally to marked areas 01/06/2021 12:00:00 AM EDT eCW1 ([facility]) BRNCDILAT RSPSE SPMTRY PRE&POST-BRNCDILAT ADMN 021 12:00:00 AM EDT [facility] ([facility]) OFFICE OUTPATIENT VISIT 15 MINUTES 12/23/2020 12:00:00 AM EDT [facility] ([facility]) OFFICE OUTPATIENT VISIT 25 MINUTES 12/23/2020 12:00:00 AM EDT [facility] ([facility]) Pain Procedure Log 12/01/2020 12:00:00 AM EDT eCW1 ([facility]) Completion of procedural visit when meets criteria 11/03/2020 12:00:00 AM EST eCW1 ([facility]) BRNCDILAT RSPSE SPMTRY PRE&POST-BRNCDILAT ADMN 020 12:00:00 AM EDT [facility] ([facility]) Results ID Date Data Source TOTAL IRON BINDING CAPACIT 06/29/2021 12:00:00 AM EDT eCW1 ( [facility]) Name Value Range Interpretation Code Description Data Viviana rce(s) Supporting Document(s) 433 250-450 TOTAL IRON BINDING CAPACI TY eCW1 ([facility]) 87 50-170 IRON (FE) eCW1 ([facility]) 20.1 13.2-45.0 PERCENT SATURATION eCW1 ([facility]) ID Date Data Source [id number] 06/29/2021 12:00:00 AM EDT eCW1 ([facility]) Name Value Range Interpretation Code Description Data Viviana rce(s) Supporting Document(s) Hemoglobin A1c/Hemoglobin.total in Blood 5.8 HEMOGLOBIN A1c eCW1 ([facility]) ID Date Data Source HEPATITIS PROFILE ACUTE 06/29/2021 12:00:00 AM EDT eCW1 [facility] Name Value Range Interpretation Code Description Data Viviana rce(s) Supporting Document(s) < 0.0 <0.8 HEPATITIS C VIRUS FRANC IND EX eCW1 ([facility]) NEGATIVE NEGATIVE HEPATITIS B CORE ANTIBODY IGM eCW1 ([facility]) NEGATIVE NEGATIVE HEPATITIS A ANTIBODY IGM eCW1 ([facility]) NEGATIVE NEGATIVE HEPATITIS B SURFACE ANTIG EN eCW1 ([facility]) ID Date Data Source FERRITIN 06/29/2021 12:00:00 AM EDT eCW1 ([facility]) Name Value Range Interpretation Code Description Data Viviana rce(s) Supporting Document(s) 39 8-252 FERRITIN eCW1 ([facility]) ID Date Data Source LIVER PROFILE 02/17/2021 12:00:00 AM EDT eCW1 ([facility]) Name Value Range Interpretation Code Description Data Viviana rce(s) Supporting Document(s) 35 7-37 AST/SGOT eCW1 ([facility]) 93 45-117 ALKALINE PHOSPHATASE eCW1 ([facility]) 45 12-78 ALT/SGPT eCW1 ([facility]) 0.3 0.2-1.0 BILIRUBIN,TOTAL eCW1 ([facility]) 6.0 6.4-8.2 TOTAL PROTEIN eCW1 ([facility]) 3.4 3.2-5.2 ALBUMIN eCW1 ([facility]) < 0.1 0.0-0.2 BILIRUBIN,DIRECT eCW1 ([facility]) 1.3 1.2-2.2 ALBUMIN/GLOBULIN RATIO eCW1 ([facility]) ID Date Data Source [id number] 02/17/2021 12:00:00 AM EDT eCW1 ([facility]) Name Value Range Interpretation Code Description Data Viviana rce(s) Supporting Document(s) Microalbumin/Creatinine [Mass Ratio] in Urine 93.8 CREATININE, URINE eCW1 ([facility]) Microalbumin/Creatinine [Ratio] in Urine 5.3 0.0-30.0 SULEMAN/CREAT RATIO eCW1 ([facility]) Albumin/Creatinine [Mass Ratio] in Urine < 5.0 MALB URINE SIEMENS eCW1 ([facility]) ID Date Data Source UA URINALYSIS 02/17/2021 12:00:00 AM EDT eCW1 ([facility]) Name Value Range Interpretation Code Description Data Viviana rce(s) Supporting Document(s) UA URINALYSIS eCW1 ([facility]) ID Date Data Source Basic Metabolic Profile (BMP) 02/17/2021 12:00:00 AM EDT eCW 1 ([facility]) Name Value Range Interpretation Code Description Data Viviana rce(s) Supporting Document(s) 13 7-18 BLOOD UREA NITROGEN eCW1 ([facility]) 116 70-100 GLUCOSE, FASTING eCW1 ([facility]) > 60.0 >45 GLOMERULAR FILTRATION RATE eCW 1 ([facility]) 141 136-145 SODIUM LEVEL eCW1 ([facility]) 0.57 0.55-1.30 CREATININE FOR GFR eCW1 ([facility]) 4.1 3.5-5.1 POTASSIUM SERUM eCW1 ([facility]) 107 98-107 CHLORIDE LEVEL eCW1 ([facility]) 8.3 8.8-10.2 CALCIUM LEVEL eCW1 ([facility]) 29 21-32 CARBON DIOXIDE LEVEL eCW1 ([facility]) ID Date Data Source CBC - Complete Blood Count 02/17/2021 12:00:00 AM EDT eCW1 ( [facility]) Name Value Range Interpretation Code Description Data Viviana rce(s) Supporting Document(s) 5.0 4.0-10.0 WHITE BLOOD COUNT eCW1 ([facility]) 4.27 4.00-5.40 RED BLOOD COUNT eCW1 ([facility]) 13.0 12.0-15.5 HEMOGLOBIN eCW1 ([facility]) 40.4 36.0-47.0 HEMATOCRIT eCW1 ([facility]) 94.6 80.0-96.0 MEAN CORPUSCULAR VOLUME e CW1 ([facility]) 30.4 27.0-33.0 MEAN CORPUSCULAR HEMOGLOB IN eCW1 ([facility]) 32.2 32.0-36.5 MEAN CORPUSCULAR HGB CONC eCW1 ([facility]) 12.4 11.5-14.5 RED CELL DISTRIBUTION WID TH eCW1 ([facility]) 229 150-450 PLATELET COUNT, AUTOMATED W1 ([facility]) ID Date Data Source ALBUMIN 02/17/2021 12:00:00 AM EDT W1 ([facility]) Name Value Range Interpretation Code Description Data Viviana rce(s) Supporting Document(s) 3.4 3.2-5.2 ALBUMIN eCW1 ([facility]) ID Date Data Source [id number] 01/28/2021 11:42:00 AM EDT [facility] Name Value Range Interpretation Code Description Data Viviana rce(s) Supporting Document(s) Surgical pathology study Laboratory test result [facility] ([facility], ) FINAL DIAGNOSIS A-Gastric fundus ulcer, biopsy: Gastric [...] 1452 Signed CLAUDIA LEAL MD 01/31/2021 1134 ID Date Data Source [id number] 01/23/2021 08:45:00 AM EDT [facility] Name Value Range Interpretation Code Description Data Viviana rce(s) Supporting Document(s) SARS-CoV-2 (COVID-19) RNA [Presence] in Respiratory specimen by JARRETT with probe detection Not Detected [facility] This lab was ordered by [facility] and reported by [facility]. ID Date Data Source [id number] 01/20/2021 12:53:00 PM EDT [facility] Name Value Range Interpretation Code Description Data Viviana rce(s) Supporting Document(s) Platelets 225 150-450 [facility] Red Blood Count 4.62 4.00-5.40 [facility] ([facility]) White Blood Count 4.5 4.0-10.0 [facility] ([facility]) Hemoglobin 14.1 [facility] ([facility]) Hematocrit 43.6 [facility] ([facility]) ID Date Data Source [id number] 01/20/2021 12:53:00 PM EDT [facility] Name Value Range Interpretation Code Description Data Viviana rce(s) Supporting Document(s) Troponin Laboratory test result [facility] ([facility]) Thyroid Stimulating Hormone 2.300 ME DENT ([facility]) Lipoprotein lipase [Enzymatic activity/volume] in Serum or Plasma 72 [facility] ([facility]) Free T4 0.96 [facility] ID Date Data Source [id number] 01/20/2021 12:53:00 PM EDT [facility]) Name Value Range Interpretation Code Description Data Viviana rce(s) Supporting Document(s) CPK-MB 1.6 [facility] ([facility]) Creatine kinase [Enzymatic activity/volume] in Serum or Plasma 73 [facility] ([facility]) ID Date Data Source [id number] 01/20/2021 12:53:00 PM EDT [facility] ([facility]) Name Value Range Interpretation Code Description Data Viviana rce(s) Supporting Document(s) Albumin [Mass/volume] in Serum or Plasma 3.5 [facility] ([facility]) Alanine aminotransferase [Enzymatic activity/volume] in Serum or Pl asma 56 [facility] ([facility]) Calcium [Mass/volume] in Serum or Plasma 9.2 [facility] ([facility]) Carbon dioxide, total [Moles/volume] in Serum or Plasma 29 [facility] ([facility]) Chloride [Moles/volume] in Serum or Plasma 106 [facility] ([facility]) Alkaline phosphatase [Enzymatic activity/volume] in Serum or Plasma 1 05 [facility] ([facility]) Protein [Mass/volume] in Serum or Plasma 6.6 [facility] ([facility]) Potassium [Moles/volume] in Serum or Plasma 3.9 [facility] ([facility]) Urea nitrogen [Mass/volume] in Serum or Plasma 12 [facility] ([facility]) Aspartate aminotransferase [Enzymatic activity/volume] in Serum or Plasma 54 [facility] ([facility]) Sodium 141 [facility] ([facility]) Glucose 102 70-100 [facility] ([facility]) Creatinine For GFR 0.60 [facility] ([facility]) ID Date Data Source [id number] 01/20/2021 11:59:00 AM EDT [facility] ([facility]) Name Value Range Interpretation Code Description Data Viviana rce(s) Supporting Document(s) Troponin Laboratory test result [facility] ([facility]) ID Date Data Source [id number] 01/20/2021 11:59:00 AM EDT [facility] ([facility]) Name Value Range Interpretation Code Description Data Viviana rce(s) Supporting Document(s) CPK-MB Laboratory test result [facility] ([facility]) Creatine kinase [Enzymatic activity/volume] in Serum or Plasma 64 [facility] ([facility]) ID Date Data Source [id number] 01/05/2021 11:57:00 AM EDT [facility] ([facility]) Name Value Range Interpretation Code Description Data Viviana rce(s) Supporting Document(s) Hemoglobin A1c/Hemoglobin.total in Blood 5.7 [facility] ([facility]) ID Date Data Source [id number] 01/05/2021 11:57:00 AM EDT [facility] ([facility]) Name Value Range Interpretation Code Description Data Viviana rce(s) Supporting Document(s) Triglycerides 278 [facility] ([facility]) Cholesterol in LDL [Mass/volume] in Serum or Plasma by calculation 53 [facility] ([facility]) HDL 104 [facility] Cholesterol 213 [facility] ([facility]) Chol/HDL Ratio 2.048 [facility] ([facility]) ID Date Data Source GASTROINTESTINAL GI PANEL (GIPANEL) 01/05/2021 12:00:00 AM EDT eCW1 ([facility]) Name Value Range Interpretation Code Description Data Viviana rce(s) Supporting Document(s) This Gastrointestinal PCR Panel detects the following bacteria, GASTROINTESTINAL (GI) PANEL eCW1 ([facility]) ID Date Data Source LIPID PANEL (CARDIAC RISK) 01/05/2021 12:00:00 AM EDT eCW1 ( [facility]) Name Value Range Interpretation Code Description Data Viviana rce(s) Supporting Document(s) Triglyceride [Mass/volume] in Serum or Plasma by calculation 278 <150 TRIGLYCERIDES LEVEL eCW1 ([facility]) Cholesterol [Moles/volume] in Serum or Plasma 213 <200 CHOLESTEROL LEVEL eCW1 ([facility]) Cholesterol in HDL [Moles/volume] in Serum or Plasma 104 >40 HDL CHOLESTEROL eCW1 ([facility]) 109 NON-HDL-C eCW1 ([facility]) Cholesterol in LDL [Mass/volume] in Serum or Plasma by calculation 53 <100 LDL CHOLESTEROL eCW1 ([facility]) 2.048 <5 CHOLESTEROL RISK RATIO eCW1 ([facility]) ID Date Data Source [place] 12/27/2020 12:00:00 AM EDT eCW1 ([facility]) Name Value Range Interpretation Code Description Data Viviana rce(s) Supporting Document(s) Negative Negative ANTINUCLEAR ANTIBODIES DI RECT eCW1 ([facility]) ID Date Data Source DDIMER QUANT 12/03/2020 12:00:00 AM EDT eCW1 ([facility]) Name Value Range Interpretation Code Description Data Viviana rce(s) Supporting Document(s) 273.46 <500 D-DIMER QUANT eCW1 ([facility]) ID Date Data Source Comprehensive Metabolic Profile (CMP) 12/03/2020 12:00:00 AM EDT eCW1 ([facility]) Name Value Range Interpretation Code Description Data Viviana rce(s) Supporting Document(s) 8 7-18 BLOOD UREA NITROGEN eCW1 ([facility]) 127 70-100 GLUCOSE, FASTING eCW1 ([facility]) > 60.0 >45 GLOMERULAR FILTRATION RATE eCW 1 ([facility]) 141 136-145 SODIUM LEVEL eCW1 ([facility]) 0.54 0.55-1.30 CREATININE FOR GFR eCW1 ([facility]) 104 98-107 CHLORIDE LEVEL eCW1 ([facility]) 32 21-32 CARBON DIOXIDE LEVEL eCW1 ([facility]) 3.6 3.5-5.1 POTASSIUM SERUM eCW1 ([facility]) 29 7-37 AST/SGOT eCW1 ([facility]) 9.0 8.8-10.2 CALCIUM LEVEL eCW1 ([facility]) 0.3 0.2-1.0 BILIRUBIN,TOTAL eCW1 ([facility]) 100 45-117 ALKALINE PHOSPHATASE eCW1 ([facility]) 40 12-78 ALT/SGPT eCW1 ([facility]) 6.1 6.4-8.2 TOTAL PROTEIN eCW1 ([facility]) 3.4 3.2-5.2 ALBUMIN eCW1 ([facility]) 1.3 1.2-2.2 ALBUMIN/GLOBULIN RATIO eCW1 ([facility]) ID Date Data Source [id number] 10/29/2020 11:10:00 AM EST [facility] Name Value Range Interpretation Code Description Data Viviana rce(s) Supporting Document(s) SARS coronavirus 2 RNA Not Detected [facility] [place] This lab was ordered by [facility] and reported by [facility]. ID Date Data Source PAP REQUEST FOR SERVICE 06/30/2020 10:30:27 AM EDT eCW1 ([facility] Name Value Range Interpretation Code Description Data Viviana rce(s) Supporting Document(s) PAP REQUEST FOR SERVICE eCW1 ( [facility]) ID Date Data Source WW[employer] Eris Screening Bilateral (Ultrasound if Indicated ) (3D Mammo) 06/24/2020 10:45:52 AM EDT eCW1 ([facility]) Name Value Range Interpretation Code Description Data Viviana rce(s) Supporting Document(s) [employer] Eris Screening Bilat eral (Ultrasound if Indicated) (3D Mammo) eCW1 ([facility]) ID Date Data Source URINE CULTURE 06/24/2020 04:27:38 AM EDT eCW1 ([facility]) Name Value Range Interpretation Code Description Data Viviana rce(s) Supporting Document(s) Laboratory studies (set) URINE CULTU RE eCW1 ([facility]) ID Date Data Source Urinalysis, no micro 06/23/2020 05:26:06 AM EDT eCW1 ([facility]) Name Value Range Interpretation Code Description Data Viviana rce(s) Supporting Document(s) neg Nitrate eCW1 ([facility]) 7 pH eCW1 ([facility]) neg Leukocyte eCW1 ([facility]) 1.005 Spec gravity eCW1 ([facility]) neg Ketones eCW1 ([facility]) trace Protein eCW1 ([facility]) nml Glucose eCW1 ([facility]) yes Internal QC Acceptable (Y/N) e CW1 ([facility]) neg Urobili eCW1 ([facility]) neg Bilirubin eCW1 ([facility]) trace Blood eCW1 ([facility]) Procedure Social History Code Duration Value Status Description Data Source(s ) Smoking 06/29/2021 12:00:00 AM EDT Former Smoker completed Former Smoker eCW1 ([facility]) Smoking 06/29/2021 12:00:00 AM EDT Former Smoker completed Former Smoker eCW1 ([facility]) Smoking 06/20/2021 12:00:00 AM EDT Former Smoker completed Former Smoker eCW1 ([facility]) Smoking 06/20/2021 12:00:00 AM EDT Former Smoker completed Former Smoker eCW1 ([facility]) Smoking 06/13/2021 12:00:00 AM EDT Patient is a former smoker completed Patient is a former smoker MEDENT ([facility] ) Smoking 06/01/2021 12:00:00 AM EDT Former Smoker completed Former Smoker eCW1 ([facility]) Smoking 06/01/2021 12:00:00 AM EDT Former Smoker completed Former Smoker eCW1 ([facility]) Smoking 06/01/2021 12:00:00 AM EDT Former Smoker completed Former Smoker eCW1 ([facility]) Smoking 06/01/2021 12:00:00 AM EDT Former Smoker completed Former Smoker eCW1 ([facility]) Smoking 06/01/2021 12:00:00 AM EDT Former Smoker completed Former Smoker eCW1 ([facility]) Smoking 05/30/2021 12:00:00 AM EDT Former Smoker completed Former Smoker eCW1 ([facility]) Smoking 05/30/2021 12:00:00 AM EDT Former Smoker completed Former Smoker eCW1 ([facility]) Smoking 05/26/2021 12:00:00 AM EDT Former Smoker completed Former Smoker eCW1 ([facility]) Smoking 05/26/2021 12:00:00 AM EDT Former Smoker completed Former Smoker eCW1 ([facility]) Smoking 03/23/2021 12:00:00 AM EDT Former Smoker completed Former Smoker eCW1 ([facility]) Smoking 03/23/2021 12:00:00 AM EDT Former Smoker completed Former Smoker eCW1 ([facility]) Smoking 03/23/2021 12:00:00 AM EDT Former Smoker completed Former Smoker eCW1 ([facility]) Smoking 03/23/2021 12:00:00 AM EDT Former Smoker completed Former Smoker eCW1 ([facility]) Smoking 03/23/2021 12:00:00 AM EDT Former Smoker completed Former Smoker eCW1 ([facility]) Smoking 03/23/2021 12:00:00 AM EDT Former Smoker completed Former Smoker eCW1 ([facility]) Smoking 03/23/2021 12:00:00 AM EDT Former Smoker completed Former Smoker eCW1 ([facility]) Smoking 03/16/2021 12:00:00 AM EDT Former Smoker completed Former Smoker eCW1 ([facility]) Smoking 03/16/2021 12:00:00 AM EDT Former Smoker completed Former Smoker eCW1 ([facility]) Smoking 03/04/2021 12:00:00 AM EDT Former Smoker completed Former Smoker eCW1 ([facility]) Smoking 03/04/2021 12:00:00 AM EDT Former Smoker completed Former Smoker eCW1 ([facility]) Smoking 03/04/2021 12:00:00 AM EDT Former Smoker completed Former Smoker eCW1 ([facility]) Smoking 02/19/2021 12:00:00 AM EDT Former Smoker completed Former Smoker eCW1 ([facility]) Smoking 02/19/2021 12:00:00 AM EDT Former Smoker completed Former Smoker eCW1 ([facility]) Smoking 02/19/2021 12:00:00 AM EDT Former Smoker completed Former Smoker eCW1 ([facility]) Smoking 02/15/2021 12:00:00 AM EDT Non Smoker completed Non Smoke r MEDENT ([facility], ) Smoking 02/09/2021 12:00:00 AM EDT Former Smoker completed Former Smoker eCW1 ([facility]) Smoking 02/09/2021 12:00:00 AM EDT Former Smoker completed Former Smoker eCW1 ([facility]) Smoking 02/04/2021 12:00:00 AM EDT Former Smoker completed Former Smoker eCW1 ([facility]) Smoking 02/04/2021 12:00:00 AM EDT Former Smoker completed Former Smoker eCW1 ([facility]) Smoking 02/02/2021 12:00:00 AM EDT Patient is a former smoker completed Patient is a former smoker MEDENT ([facility]) Smoking 01/21/2021 12:00:00 AM EDT Former Smoker completed Former Smoker eCW1 ([facility]) Smoking 01/21/2021 12:00:00 AM EDT Former Smoker completed Former Smoker eCW1 ([facility]) Smoking 01/21/2021 12:00:00 AM EDT Former Smoker completed Former Smoker eCW1 ([facility]) Smoking 01/21/2021 12:00:00 AM EDT Former Smoker completed Former Smoker eCW1 ([facility]) Smoking 01/17/2021 12:00:00 AM EDT Former Smoker completed Former Smoker eCW1 ([facility]) Smoking 01/06/2021 12:00:00 AM EDT Former Smoker completed Former Smoker eCW1 ([facility]) Smoking 01/06/2021 12:00:00 AM EDT Former Smoker completed Former Smoker eCW1 ([facility]) Smoking 01/06/2021 12:00:00 AM EDT Former Smoker completed Former Smoker eCW1 ([facility]) Smoking 01/06/2021 12:00:00 AM EDT Former Smoker completed Former Smoker eCW1 ([facility]) Smoking 01/05/2021 12:00:00 AM EDT Former Smoker completed Former Smoker eCW1 ([facility]) Smoking 01/05/2021 12:00:00 AM EDT Former Smoker completed Former Smoker eCW1 ([facility]) Smoking 01/05/2021 12:00:00 AM EDT Former Smoker completed Former Smoker eCW1 ([facility]) Smoking 12/29/2020 12:00:00 AM EDT Former Smoker completed Former Smoker eCW1 ([facility]) Smoking 12/29/2020 12:00:00 AM EDT Former Smoker completed Former Smoker eCW1 ([facility]) Smoking 12/26/2020 12:00:00 AM EDT Former Smoker completed Former Smoker eCW1 ([facility]) Smoking 12/20/2020 12:00:00 AM EDT Former Smoker completed Former Smoker eCW1 ([facility]) Smoking 12/20/2020 12:00:00 AM EDT Former Smoker completed Former Smoker eCW1 ([facility]) Smoking 12/20/2020 12:00:00 AM EDT Former Smoker completed Former Smoker eCW1 ([facility]) Smoking 12/20/2020 12:00:00 AM EDT Former Smoker completed Former Smoker eCW1 ([facility]) Smoking 12/02/2020 12:00:00 AM EDT Former Smoker completed Former Smoker eCW1 ([facility]) Smoking 12/02/2020 12:00:00 AM EDT Former Smoker completed Former Smoker eCW1 ([facility]) Smoking 12/02/2020 12:00:00 AM EDT Former Smoker completed Former Smoker eCW1 ([facility]) Smoking 12/02/2020 12:00:00 AM EDT Former Smoker completed Former Smoker eCW1 ([facility]) Smoking 12/02/2020 12:00:00 AM EDT Former Smoker completed Former Smoker eCW1 ([facility]) Smoking 12/02/2020 12:00:00 AM EDT Former Smoker completed Former Smoker eCW1 ([facility]) Smoking 11/25/2020 12:00:00 AM EDT Former Smoker completed Former Smoker eCW1 ([facility]) Smoking 11/25/2020 12:00:00 AM EDT Former Smoker completed Former Smoker eCW1 ([facility]) Smoking 11/25/2020 12:00:00 AM EDT Former Smoker completed Former Smoker eCW1 ([facility]) Smoking 11/25/2020 12:00:00 AM EDT Former Smoker completed Former Smoker eCW1 ([facility]) Smoking 11/25/2020 12:00:00 AM EDT Former Smoker completed Former Smoker eCW1 ([facility]) Smoking 11/03/2020 12:00:00 AM EST Former Smoker completed Former Smoker eCW1 ([facility]) Smoking 11/03/2020 12:00:00 AM EST Former Smoker completed Former Smoker eCW1 ([facility]) Smoking 11/03/2020 12:00:00 AM EST Former Smoker completed Former Smoker eCW1 ([facility]) Smoking 11/03/2020 12:00:00 AM EST Former Smoker completed Former Smoker eCW1 ([facility]) Smoking 11/03/2020 12:00:00 AM EST Former Smoker completed Former Smoker eCW1 ([facility]) Smoking 08/30/2020 12:00:00 AM EST Former Smoker completed Former Smoker eCW1 ([facility]) Smoking 08/30/2020 12:00:00 AM EST Former Smoker completed Former Smoker eCW1 ([facility]) Smoking 08/30/2020 12:00:00 AM EST Former Smoker completed Former Smoker eCW1 ([facility]) Smoking 08/18/2020 12:00:00 AM EST Former Smoker completed Former Smoker eCW1 ([facility]) Smoking 07/29/2020 12:00:00 AM EST Former Smoker completed Former Smoker eCW1 ([facility]) Smoking 07/29/2020 12:00:00 AM EST Former Smoker completed Former Smoker eCW1 ([facility]) Smoking 07/29/2020 12:00:00 AM EST Former Smoker completed Former Smoker eCW1 ([facility]) Smoking 07/29/2020 12:00:00 AM EST Former Smoker completed Former Smoker eCW1 ([facility]) Smoking 07/09/2020 12:00:00 AM EDT Former Smoker completed Former Smoker eCW1 ([facility]) Smoking 07/09/2020 12:00:00 AM EDT Former Smoker completed Former Smoker eCW1 ([facility]) Smoking 07/09/2020 12:00:00 AM EDT Former Smoker completed Former Smoker eCW1 ([facility]) Smoking 07/09/2020 12:00:00 AM EDT Former Smoker completed Former Smoker eCW1 ([facility]) Smoking 06/24/2020 12:00:00 AM EDT Patient has never smoked co mpleted Patient has never smoked MEDENT ([facility] ) Smoking 06/23/2020 12:00:00 AM EDT Former Smoker completed Former Smoker eCW1 ([facility]) Smoking 06/18/2020 12:00:00 AM EDT Former Smoker completed Former Smoker eCW1 ([facility]) Smoking 06/18/2020 12:00:00 AM EDT Former Smoker completed Former Smoker eCW1 ([facility]) Smoking 06/18/2020 12:00:00 AM EDT Former Smoker completed Former Smoker eCW1 ([facility]) Vital Signs ID Date Data Source UNK Name Value Range Interpretation Code Description Data Source(s) Body weight 173.6 [lb_av] 173.6 [lb_av] eCW1 ([facility]) Body weight 78.74 kg 78.74 kg eCW1 ([facility]) Body height 60 [in_i] 60 [in_i] eCW1 ([facility]) Body mass index (BMI) [Ratio] 33.90 kg/m2 33.90 kg/m2 eCW1 ([facility]) Heart rate 106 /min 106 /min eCW1 ([facility]) Respiratory rate 18 /min 18 /min eCW1 ([facility]) Body temperature 97.2 [degF] 97.2 [degF] eCW1 ( [facility]) Systolic blood pressure 122 mm[Hg] 122 mm[Hg] e CW1 ([facility]) Diastolic blood pressure 82 mm[Hg] 82 mm[Hg] eCW1 ([facility]) Systolic blood pressure 134 mm[Hg] 134 mm[Hg] M EDENT ([facility], ) Diastolic blood pressure 70 mm[Hg] 70 mm[Hg] MEDENT ([facility]) Heart rate 58 /min 58 /min [facility] ([facility]) Oxygen saturation in Arterial blood by Pulse oximetry 97 % 97 % [facility] ([facility]) Body height 58 [in_i] 58 [in_i] MEDENT ([facility]) 4'10" Body weight 174.00 [lb_av] 174.00 [lb_av] MEDEN T ([facility]) [place] body weight 100 [lb_av] 100 [lb_av] MEDEN T ([facility]) Body weight 78.926 kg 78.926 kg [facility] ([facility]) Body surface area Derived from formula 1.72 m2 1.72 m2 [facility] ([facility]) Body mass index (BMI) [Ratio] 36.4 kg/m2 36.4 k g/m2 [facility] ([facility]) Body weight 176.12 [lb_av] 176.12 [lb_av] MEDEN T ([facility]) Body height 61 [in_i] 61 [in_i] MEDENT ([facility] 5'1" Heart rate 71 /min 71 /min [facility] ([facility] Respiratory rate 18 /min 18 /min MED[facility] ( [facility]) Systolic blood pressure 90 mm[Hg] 90 mm[Hg] M EDENT ([facility]) Diastolic blood pressure 57 mm[Hg] 57 mm[Hg] MEDENT ([facility]) Body mass index (BMI) [Ratio] 33.3 kg/m2 33.3 k g/m2 MED[facility] ([facility]) Body weight 168.6 [lb_av] 168.6 [lb_av] eCW1 ([facility]) Body weight 76.48 kg 76.48 kg eCW1 ([facility]) Body height 60 [in_i] 60 [in_i] eCW1 ([facility]) Body mass index (BMI) [Ratio] 32.92 kg/m2 32.92 kg/m2 eCW1 ([facility]) Systolic blood pressure 118 mm[Hg] 118 mm[Hg] e CW1 ([facility]) Diastolic blood pressure 70 mm[Hg] 70 mm[Hg] eCW1 ([facility]) Body weight 176.2 [lb_av] 176.2 [lb_av] eCW1 ([facility]) Body weight 79.92 kg 79.92 kg eCW1 ([facility]) Body height 60 [in_i] 60 [in_i] eCW1 ([facility]) Body mass index (BMI) [Ratio] 34.41 kg/m2 34.41 kg/m2 eCW1 ([facility]) Heart rate 89 /min 89 /min eCW1 ([facility]) Respiratory rate 18 /min 18 /min eCW1 ([facility]) Body temperature 97.4 [degF] 97.4 [degF] eCW1 ( [facility]) Systolic blood pressure 116 mm[Hg] 116 mm[Hg] e CW1 ([facility]) Diastolic blood pressure 70 mm[Hg] 70 mm[Hg] eCW1 ([facility]) Body weight 176.8 [lb_av] 176.8 [lb_av] eCW1 ([facility]) Body weight 80.2 kg 80.2 kg eCW1 ([facility]) Body height 60 [in_i] 60 [in_i] eCW1 ([facility]) Body mass index (BMI) [Ratio] 34.53 kg/m2 34.53 kg/m2 eCW1 ([facility]) Heart rate 68 /min 68 /min eCW1 ([facility]) Respiratory rate 18 /min 18 /min eCW1 ([facility]) Body temperature 98.1 [degF] 98.1 [degF] eCW1 ( [facility]) Systolic blood pressure 115 mm[Hg] 115 mm[Hg] e CW1 ([facility]) Diastolic blood pressure 67 mm[Hg] 67 mm[Hg] eCW1 ([facility]) Body weight 174.2 [lb_av] 174.2 [lb_av] eCW1 ([facility]) Body weight 79.02 kg 79.02 kg eCW1 ([facility]) Body height 60 [in_i] 60 [in_i] eCW1 ([facility]) Body mass index (BMI) [Ratio] 34.02 kg/m2 34.02 kg/m2 eCW1 ([facility]) Heart rate 94 /min 94 /min eCW1 ([facility]) Respiratory rate 18 /min 18 /min eCW1 ([facility]) Body temperature 97.8 [degF] 97.8 [degF] eCW1 ( [facility]) Systolic blood pressure 118 mm[Hg] 118 mm[Hg] e CW1 ([facility]) Diastolic blood pressure 64 mm[Hg] 64 mm[Hg] eCW1 ([facility]) Body weight 173.8 [lb_av] 173.8 [lb_av] eCW1 ([facility]) Body height 60 [in_i] 60 [in_i] eCW1 ([facility]) Body mass index (BMI) [Ratio] 33.94 kg/m2 33.94 kg/m2 eCW1 ([facility]) Heart rate 70 /min 70 /min eCW1 ([facility]) Respiratory rate 18 /min 18 /min eCW1 ([facility]) Body temperature 98.3 [degF] 98.3 [degF] eCW1 ( [facility]) Systolic blood pressure 117 mm[Hg] 117 mm[Hg] e CW1 ([facility]) Diastolic blood pressure 60 mm[Hg] 60 mm[Hg] eCW1 ([facility]) Systolic blood pressure 112 mm[Hg] 112 mm[Hg] e CW1 ([facility]) Body weight 175.80 [lb_av] 175.80 [lb_av] eCW1 ([facility]) Body height 60 [in_i] 60 [in_i] eCW1 ([facility]) Body mass index (BMI) [Ratio] 34.33 kg/m2 34.33 kg/m2 eCW1 ([facility]) Heart rate 84 /min 84 /min eCW1 ([facility]) Respiratory rate 18 /min 18 /min eCW1 ([facility]) Diastolic blood pressure 70 mm[Hg] 70 mm[Hg] eCW1 ([facility]) Body temperature 97.7 [degF] 97.7 [degF] eCW1 ( [facility]) Diastolic blood pressure 70 mm[Hg] 70 mm[Hg] eCW1 ([facility]) Systolic blood pressure 118 mm[Hg] 118 mm[Hg] e CW1 ([facility]) Body weight 175.6 [lb_av] 175.6 [lb_av] eCW1 ([facility]) Body height 60 [in_i] 60 [in_i] eCW1 ([facility]) Body mass index (BMI) [Ratio] 34.29 kg/m2 34.29 kg/m2 eCW1 ([facility]) Heart rate 82 /min 82 /min eCW1 ([facility]) Respiratory rate 18 /min 18 /min eCW1 ([facility]) Body temperature 96.5 [degF] 96.5 [degF] eCW1 ( [facility]) Body weight 174.4 [lb_av] 174.4 [lb_av] eCW1 ([facility]) Body temperature 98.5 [degF] 98.5 [degF] eCW1 ( [facility]) Body height 60 [in_i] 60 [in_i] eCW1 ([facility]) Body mass index (BMI) [Ratio] 34.06 kg/m2 34.06 kg/m2 eCW1 ([facility]) Heart rate 72 /min 72 /min eCW1 ([facility]) Respiratory rate 18 /min 18 /min eCW1 ([facility]) Systolic blood pressure 121 mm[Hg] 121 mm[Hg] e CW1 ([facility]) Diastolic blood pressure 75 mm[Hg] 75 mm[Hg] eCW1 ([facility]) Systolic blood pressure 102 mm[Hg] 102 mm[Hg] M EDENT ([facility]) Diastolic blood pressure 60 mm[Hg] 60 mm[Hg] [facility] Body height 58 [in_i] 58 [in_i] [facility] ([facility]) 4'10" Body weight 175.00 [lb_av] 175.00 [lb_av] MEDEN T ([facility]) Body mass index (BMI) [Ratio] 36.6 kg/m2 36.6 k g/m2 [facility] ([facility]) [place] body weight 100 [lb_av] 100 [lb_av] MEDEN T ([facility]) Body weight 79.380 kg 79.380 kg [facility] ([facility]) Body surface area Derived from formula 1.72 m2 1.72 m2 [facility] ([facility]) Body height 58 [in_i] 58 [in_i] [facility] ([facility]) 4'10" [place] body weight 100 [lb_av] 100 [lb_av] MEDEN T ([facility]) Body weight 177.2 [lb_av] 177.2 [lb_av] eCW1 ([facility]) Body height 60 [in_i] 60 [in_i] eCW1 ([facility]) Body mass index (BMI) [Ratio] 34.60 kg/m2 34.60 kg/m2 eCW1 ([facility]) Heart rate 74 /min 74 /min eCW1 ([facility]) Respiratory rate 18 /min 18 /min W1 ([facility]) Body temperature 973 [degF] 973 [degF] eCW1 ([facility]) Systolic blood pressure 112 mm[Hg] 112 mm[Hg] e CW1 ([facility]) Diastolic blood pressure 72 mm[Hg] 72 mm[Hg] eCW1 ([facility]) Body weight 80.287 kg 80.287 kg [facility] ([facility]) Body height 58 [in_i] 58 [in_i] [facility] ([facility]) 4'10" Body weight 177.00 [lb_av] 177.00 [lb_av] MEDEN T ([facility]) Body mass index (BMI) [Ratio] 37.0 kg/m2 37.0 k g/m2 [facility] ([facility]) Body surface area Derived from formula 1.73 m2 1.73 m2 [facility] ([facility]) [place] body weight 100 [lb_av] 100 [[facility]_av[facility] Systolic blood pressure 122 mm[Hg] 122 mm[Hg] M EDENT ([facility]) Diastolic blood pressure 68 mm[Hg] 68 mm[Hg] [facility] ([facility]) Heart rate 64 /min 64 /min [facility] ([facility]) Oxygen saturation in Arterial blood by Pulse oximetry 97 % 97 % [facility] ([facility]) Body weight 174.6 [lb_av] 174.6 [lb_av] eCW1 ([facility]) Body height 60 [in_i] 60 [in_i] eCW1 ([facility]) Body mass index (BMI) [Ratio] 34.10 kg/m2 34.10 kg/m2 eCW1 ([facility]) Systolic blood pressure 110 mm[Hg] 110 mm[Hg] e CW1 ([facility]) Diastolic blood pressure 68 mm[Hg] 68 mm[Hg] eCW1 ([facility]) Body weight 176.2 [lb_av] 176.2 [lb_av] eCW1 ([facility]) Body height 60 [in_i] 60 [in_i] eCW1 ([facility]) Body mass index (BMI) [Ratio] 34.41 kg/m2 34.41 kg/m2 W1 ([facility]) Heart rate 68 /min 68 /min eCW1 ([facility]) Respiratory rate 18 /min 18 /min eCW1 ([facility]) Body temperature 99.1 [degF] 99.1 [degF] eCW1 ( [facility]) Systolic blood pressure 111 mm[Hg] 111 mm[Hg] e CW1 ([facility]) Diastolic blood pressure 60 mm[Hg] 60 mm[Hg] eCW1 ([facility]) Heart rate 76 /min 76 /min [facility] ([facility]) Body mass index (BMI) [Ratio] 33.3 kg/m2 33.3 k g/m2 [facility] ([facility]) Body weight 176.00 [lb_av] 176.00 [lb_av] MEDEN T ([facility]) Body height 61 [in_i] 61 [in_i] MEDENT ([facility]) 5'1" Systolic blood pressure--sitting 116 mm[Hg] 116 mm[Hg] MEDENT ([facility]) [place], large cuff/Ra Diastolic blood pressure--sitting 58 mm[Hg] 58 mm[Hg] MEDENT ([facility]) [place], large cuff/Ra Body weight 177.8 [lb_av] 177.8 [lb_av] eCW1 ([facility]) Body height 60 [in_i] 60 [in_i] eCW1 ([facility]) Body mass index (BMI) [Ratio] 34.72 kg/m2 34.72 kg/m2 eCW1 ([facility]) Heart rate 82 /min 82 /min eCW1 ([facility]) Respiratory rate 18 /min 18 /min eCW1 ([facility]) Body temperature 96.8 [degF] 96.8 [degF] eCW1 ( [facility]) Systolic blood pressure 110 mm[Hg] 110 mm[Hg] e CW1 ([facility]) Diastolic blood pressure 70 mm[Hg] 70 mm[Hg] eCW1 ([facility]) Body weight 178 [lb_av] 178 [lb_av] eCW1 ([facility]) Body height 60 [in_i] 60 [in_i] eCW1 ([facility]) Body mass index (BMI) [Ratio] 34.76 kg/m2 34.76 kg/m2 eCW1 ([facility]) Systolic blood pressure 108 mm[Hg] 108 mm[Hg] e CW1 ([facility]) Diastolic blood pressure 74 mm[Hg] 74 mm[Hg] eCW1 ([facility]) Body weight 177.8 [lb_av] 177.8 [lb_av] eCW1 ([facility]) Body height 60 [in_i] 60 [in_i] eCW1 ([facility]) Body mass index (BMI) [Ratio] 34.72 kg/m2 34.72 kg/m2 eCW1 ([facility]) Heart rate 71 /min 71 /min eCW1 ([facility]) Respiratory rate 18 /min 18 /min eCW1 (Formerly [facility], later [facility]) Body temperature 97.4 [degF] 97.4 [degF] eCW1 ( [facility]) Systolic blood pressure 109 mm[Hg] 109 mm[Hg] e CW1 ([facility]) Diastolic blood pressure 79 mm[Hg] 79 mm[Hg] eCW1 ([facility]) Body weight 175.0 [lb_av] 175.0 [lb_av] eCW1 ([facility]) Body height 60 [in_i] 60 [in_i] eCW1 ([facility]) Body mass index (BMI) [Ratio] 34.17 kg/m2 34.17 kg/m2 eCW1 ([facility]) Heart rate 82 /min 82 /min eCW1 ([facility]) Respiratory rate 18 /min 18 /min eCW1 (Formerly [facility], [facility]) Body temperature 97.1 [degF] 97.1 [degF] eCW1 ( [facility]) Systolic blood pressure 120 mm[Hg] 120 mm[Hg] e CW1 ([facility]) Diastolic blood pressure 76 mm[Hg] 76 mm[Hg] eCW1 ([facility]) Body mass index (BMI) [Ratio] 34.37 kg/m2 34.37 kg/m2 eCW1 ([facility]) Systolic blood pressure 112 mm[Hg] 112 mm[Hg] e CW1 ([facility]) Diastolic blood pressure 70 mm[Hg] 70 mm[Hg] eCW1 ([facility]) Body weight 176 [lb_av] 176 [lb_av] eCW1 ([facility]) Body height 60 [in_i] 60 [in_i] eCW1 ([facility]) Body weight 175.50 [lb_av] 175.50 [lb_av] MEDEN T ([facility]) Body height 61 [in_i] 61 [in_i] MEDENT ([facility] 5'1" Heart rate 66 /min 66 /min MEDENT ([facility] Respiratory rate 16 /min 16 /min MEDENT ( [facility]) Systolic blood pressure 118 mm[Hg] 118 mm[Hg] M EDENT ([facility]) Diastolic blood pressure 81 mm[Hg] 81 mm[Hg] MEDENT ([facility]) Body mass index (BMI) [Ratio] 33.2 kg/m2 33.2 k g/m2 MEDENT ([facility]) Body weight 177.4 [lb_av] 177.4 [lb_av] eCW1 ([facility]) Body height 60 [in_i] 60 [in_i] eCW1 ([facility]) Body mass index (BMI) [Ratio] 34.64 kg/m2 34.64 kg/m2 eCW1 ([facility]) Heart rate 73 /min 73 /min eCW1 ([facility]) Respiratory rate 18 /min 18 /min eCW1 ([facility]ly [facility], [facility]) Body temperature 95.7 [degF] 95.7 [degF] eCW1 ( [facility]) Systolic blood pressure 110 mm[Hg] 110 mm[Hg] e CW1 ([facility]) Diastolic blood pressure 70 mm[Hg] 70 mm[Hg] eCW1 ([facility]) Body weight 174.2 [lb_av] 174.2 [lb_av] eCW1 ([facility]) Heart rate 89 /min 89 /min eCW1 ([facility]) Respiratory rate 17 /min 17 /min eCW1 ([facility], [facility]) Body temperature 98.8 [degF] 98.8 [degF] eCW1 ( [facility]) Body height 60 [in_i] 60 [in_i] eCW1 ([facility]) Systolic blood pressure 102 mm[Hg] 102 mm[Hg] e CW1 ([facility]) Diastolic blood pressure 62 mm[Hg] 62 mm[Hg] eCW1 ([facility]) Body mass index (BMI) [Ratio] 34.02 kg/m2 34.02 kg/m2 eCW1 ([facility]) Body weight 177.6 [lb_av] 177.6 [lb_av] eCW1 ([facility]) Body height 60 [in_i] 60 [in_i] eCW1 ([facility]) Body mass index (BMI) [Ratio] 34.68 kg/m2 34.68 kg/m2 eCW1 ([facility]) Heart rate 78 /min 78 /min eCW1 ([facility]) Respiratory rate 16 /min 16 /min eCW1 ([facility], [facility]) Body temperature 97.8 [degF] 97.8 [degF] eCW1 ( [facility]) Systolic blood pressure 108 mm[Hg] 108 mm[Hg] e CW1 ([facility]) Diastolic blood pressure 56 mm[Hg] 56 mm[Hg] eCW1 ([facility]) Body weight 174 [lb_av] 174 [lb_av] eCW1 ([facility]) Body height 60 [in_i] 60 [in_i] eCW1 ([facility]) Body mass index (BMI) [Ratio] 33.98 kg/m2 33.98 kg/m2 eCW1 ([facility]) Heart rate 89 /min 89 /min eCW1 ([facility]) Respiratory rate 18 /min 18 /min eCW1 ([facility], [facility]) Body temperature 97.4 [degF] 97.4 [degF] eCW1 ( [facility]) Systolic blood pressure 132 mm[Hg] 132 mm[Hg] e CW1 ([facility]) Diastolic blood pressure 76 mm[Hg] 76 mm[Hg] eCW1 ([facility]) Diastolic blood pressure 70 mm[Hg] 70 mm[Hg] eCW1 ([facility]) Body weight 171 [lb_av] 171 [lb_av] eCW1 ([facility]) Body height 60 [in_i] 60 [in_i] eCW1 ([facility]) Body mass index (BMI) [Ratio] 33.39 kg/m2 33.39 kg/m2 eCW1 ([facility]) Heart rate 82 /min 82 /min eCW1 ([facility]) Respiratory rate 18 /min 18 /min eCW1 ([facility], [facility]) Body temperature 97.8 [degF] 97.8 [degF] eCW1 ( [facility]) Systolic blood pressure 110 mm[Hg] 110 mm[Hg] e CW1 ([facility]) Body weight 177.6 [lb_av] 177.6 [lb_av] eCW1 ([facility]) Body height 60 [in_i] 60 [in_i] eCW1 ([facility]) Body mass index (BMI) [Ratio] 34.68 kg/m2 34.68 kg/m2 eCW1 ([facility]) Heart rate 74 /min 74 /min eCW1 ([facility]) Respiratory rate 18 /min 18 /min eCW1 ([facility], [facility]) Body temperature 97.6 [degF] 97.6 [degF] eCW1 ( [facility]) Systolic blood pressure 126 mm[Hg] 126 mm[Hg] e CW1 ([facility]) Diastolic blood pressure 58 mm[Hg] 58 mm[Hg] eCW1 ([facility]) Body weight 172.6 [lb_av] 172.6 [lb_av] eCW1 ([facility]) Body height 60 [in_i] 60 [in_i] eCW1 ([facility]) Body mass index (BMI) [Ratio] 33.70 kg/m2 33.70 kg/m2 eCW1 ([facility]) Heart rate 96 /min 96 /min eCW1 ([facility]) Respiratory rate 18 /min 18 /min eCW1 ([facility], [facility]) Body temperature 98.1 [degF] 98.1 [degF] eCW1 ( [facility]) Systolic blood pressure 128 mm[Hg] 128 mm[Hg] e CW1 ([facility]) Diastolic blood pressure 80 mm[Hg] 80 mm[Hg] eCW1 ([facility]) Body weight 176.0 [lb_av] 176.0 [lb_av] eCW1 ([facility]) Systolic blood pressure 111 mm[Hg] 111 mm[Hg] e CW1 ([facility]) Body height 60 [in_i] 60 [in_i] eCW1 ([facility]) Diastolic blood pressure 69 mm[Hg] 69 mm[Hg] eCW1 ([facility]) Body mass index (BMI) [Ratio] 34.37 kg/m2 34.37 kg/m2 eCW1 ([facility]) Heart rate 81 /min 81 /min eCW1 ([facility]) Respiratory rate 18 /min 18 /min eCW1 ([facility], [facility]) Body temperature 98.8 [degF] 98.8 [degF] eCW1 ( [facility]) Body weight 170 [lb_av] 170 [lb_av] eCW1 ([facility]) Body height 60 [in_i] 60 [in_i] eCW1 ([facility]) Body mass index (BMI) [Ratio] 33.20 kg/m2 33.20 kg/m2 eCW1 ([facility]) Heart rate 100 /min 100 /min eCW1 ([facility]) Respiratory rate 18 /min 18 /min eCW1 ([facility], [facility]) Body temperature 98 [degF] 98 [degF] eCW1 ([facility], [facility]) Systolic blood pressure 136 mm[Hg] 136 mm[Hg] e CW1 ([facility]) Diastolic blood pressure 80 mm[Hg] 80 mm[Hg] eCW1 ([facility]) Systolic blood pressure 122 mm[Hg] 122 mm[Hg] M EDENT ([facility], ) Diastolic blood pressure 68 mm[Hg] 68 mm[Hg] [facility] ([facility]) Body height 61 [in_i] 61 [in_i] [facility] ([facility], ) 5'1" Body weight 169.00 [lb_av] 169.00 [lb_av] MEDEN T ([facility]) Body mass index (BMI) [Ratio] 31.9 kg/m2 31.9 k g/m2 [facility] ([facility]) [place] body weight 105 [lb_av] 105 [lb_av] MEDEN T ([facility]) Body weight 76.658 kg 76.658 kg [facility] ([facility]) Body surface area Derived from formula 1.76 m2 1.76 m2 [facility] ([facility]) Body weight 170.0 [lb_av] 170.0 [lb_av] eCW1 ([facility]) Body height 60 [in_i] 60 [in_i] eCW1 ([facility]) Body mass index (BMI) [Ratio] 33.20 kg/m2 33.20 kg/m2 W1 ([facility]) Heart rate 93 /min 93 /min eCW1 ([facility]) Respiratory rate 18 /min 18 /min eCW1 ([facility], [facility]) Body temperature 97.3 [degF] 97.3 [degF] eCW1 ( [facility]) Systolic blood pressure 120 mm[Hg] 120 mm[Hg] e CW1 ([facility]) Diastolic blood pressure 80 mm[Hg] 80 mm[Hg] eCW1 ([facility]) Body weight 171.12 [lb_av] 171.12 [lb_av] MEDEN T ([facility]) Body height 61 [in_i] 61 [in_i] MEDENT ([facility] 5'1" Heart rate 74 /min 74 /min MEDENT ([facility] Respiratory rate 16 /min 16 /min MEDENT ( [facility]) Systolic blood pressure 110 mm[Hg] 110 mm[Hg] M EDENT ([facility]) Diastolic blood pressure 73 mm[Hg] 73 mm[Hg] MEDENT ([facility]) Body mass index (BMI) [Ratio] 32.3 kg/m2 32.3 k g/m2 MEDENT ([facility]) Body weight 171 [lb_av] 171 [lb_av] eCW1 ([facility]) Body height 60 [in_i] 60 [in_i] eCW1 ([facility]) Body mass index (BMI) [Ratio] 33.39 kg/m2 33.39 kg/m2 eCW1 ([facility]) Systolic blood pressure 122 mm[Hg] 122 mm[Hg] e CW1 ([facility]) Diastolic blood pressure 74 mm[Hg] 74 mm[Hg] eCW1 ([facility]) Body weight 173.4 [lb_av] 173.4 [lb_av] eCW1 ([facility]) Body height 60 [in_i] 60 [in_i] eCW1 ([facility]) Body mass index (BMI) [Ratio] 33.86 kg/m2 33.86 kg/m2 eCW1 ([facility]) Heart rate 90 /min 90 /min eCW1 ([facility]) Respiratory rate 16 /min 16 /min eCW1 ([facility], [facility]) Body temperature 97.4 [degF] 97.4 [degF] eCW1 ( [facility]) Systolic blood pressure 118 mm[Hg] 118 mm[Hg] e CW1 ([facility]) Diastolic blood pressure 64 mm[Hg] 64 mm[Hg] eCW1 ([facility]) Patient Treatment Plan of Care Planned Activity Planned Date Details Description Data Source (s) pregabalin 150 MG Oral Capsule [Lyrica] 06/30/2021 12:00:00 AM EDT eCW1 ([facility]) tramadol hydrochloride 50 MG Oral Tablet 06/30/2021 12:00:00 AM EDT eCW1 ([facility]) atorvastatin 80 MG Oral Tablet 06/30/2021 12:00:00 AM EDT eCW1 ([facility]) Metformin hydrochloride 850 MG Oral Tablet 06/30/2021 12:00:00 AM E DT eCW1 ([facility]) Metformin hydrochloride 850 MG Oral Tablet 06/30/2021 12:00:00 AM E DT eCW1 ([facility]) pregabalin 150 MG Oral Capsule [Lyrica] 06/30/2021 12:00:00 AM EDT eCW1 ([facility]) tramadol hydrochloride 50 MG Oral Tablet 06/30/2021 12:00:00 AM EDT eCW1 ([facility]) atorvastatin 80 MG Oral Tablet 06/30/2021 12:00:00 AM EDT eCW1 ([facility]) 8 HR Acetaminophen 650 MG Extended Release Oral Tablet 06/01/2021 12:00:00 AM EDT eCW1 ([facility]) Clobetasol Propionate 0.5 MG/ML Topical Foam 06/01/2021 12:00:00 AM EDT eCW1 ([facility]) cefdinir 300 MG Oral Capsule 06/01/2021 12:00:00 AM EDT eCW1 ([facility]) 8 HR Acetaminophen 650 MG Extended Release Oral Tablet 06/01/2021 12:00:00 AM EDT eCW1 ([facility]) Clobetasol Propionate 0.5 MG/ML Topical Foam 06/01/2021 12:00:00 AM EDT eCW1 ([facility]) cefdinir 300 MG Oral Capsule 06/01/2021 12:00:00 AM EDT eCW1 ([facility]) 8 HR Acetaminophen 650 MG Extended Release Oral Tablet 06/01/2021 12:00:00 AM EDT eCW1 ([facility]) Clobetasol Propionate 0.5 MG/ML Topical Foam 06/01/2021 12:00:00 AM EDT eCW1 ([facility]) cefdinir 300 MG Oral Capsule 06/01/2021 12:00:00 AM EDT eCW1 ([facility]) 8 HR Acetaminophen 650 MG Extended Release Oral Tablet 06/01/2021 12:00:00 AM EDT eCW1 ([facility]) Clobetasol Propionate 0.5 MG/ML Topical Foam 06/01/2021 12:00:00 AM EDT eCW1 ([facility]) cefdinir 300 MG Oral Capsule 06/01/2021 12:00:00 AM EDT eCW1 ([facility]) 8 HR Acetaminophen 650 MG Extended Release Oral Tablet 06/01/2021 12:00:00 AM EDT eCW1 ([facility]) Clobetasol Propionate 0.5 MG/ML Topical Foam 06/01/2021 12:00:00 AM EDT eCW1 ([facility]) cefdinir 300 MG Oral Capsule 06/01/2021 12:00:00 AM EDT eCW1 ([facility]) 8 HR Acetaminophen 650 MG Extended Release Oral Tablet 06/01/2021 12:00:00 AM EDT eCW1 ([facility]) Clobetasol Propionate 0.5 MG/ML Topical Foam 06/01/2021 12:00:00 AM EDT eCW1 ([facility]) cefdinir 300 MG Oral Capsule 06/01/2021 12:00:00 AM EDT eCW1 ([facility]) cefdinir 300 MG Oral Capsule 06/01/2021 12:00:00 AM EDT eCW1 ([facility]) 8 HR Acetaminophen 650 MG Extended Release Oral Tablet 06/01/2021 12:00:00 AM EDT eCW1 ([facility]) Clobetasol Propionate 0.5 MG/ML Topical Foam 06/01/2021 12:00:00 AM EDT eCW1 ([facility]) pregabalin 150 MG Oral Capsule [Lyrica] 05/26/2021 12:00:00 AM EDT eCW1 ([facility]) tramadol hydrochloride 50 MG Oral Tablet 05/26/2021 12:00:00 AM EDT eCW1 ([facility]) pregabalin 150 MG Oral Capsule [Lyrica] 05/26/2021 12:00:00 AM EDT eCW1 ([facility]) pregabalin 150 MG Oral Capsule [Lyrica] 05/26/2021 12:00:00 AM EDT eCW1 ([facility]) tramadol hydrochloride 50 MG Oral Tablet 05/26/2021 12:00:00 AM EDT eCW1 ([facility]) pregabalin 150 MG Oral Capsule [Lyrica] 05/26/2021 12:00:00 AM EDT eCW1 ([facility]) pregabalin 150 MG Oral Capsule [Lyrica] 05/26/2021 12:00:00 AM EDT eCW1 ([facility]) tramadol hydrochloride 50 MG Oral Tablet 05/26/2021 12:00:00 AM EDT eCW1 ([facility]) pregabalin 150 MG Oral Capsule [Lyrica] 05/26/2021 12:00:00 AM EDT eCW1 ([facility]) pregabalin 150 MG Oral Capsule [Lyrica] 05/26/2021 12:00:00 AM EDT eCW1 ([facility]) tramadol hydrochloride 50 MG Oral Tablet 05/26/2021 12:00:00 AM EDT eCW1 ([facility]) pregabalin 150 MG Oral Capsule [Lyrica] 05/26/2021 12:00:00 AM EDT eCW1 ([facility]) duloxetine 20 MG Delayed Release Oral Capsule 05/17/2021 12:00:00 A M EDT eCW1 ([facility]) duloxetine 20 MG Delayed Release Oral Capsule 05/17/2021 12:00:00 A M EDT eCW1 ([facility]) duloxetine 20 MG Delayed Release Oral Capsule 05/17/2021 12:00:00 A M EDT eCW1 ([facility]) duloxetine 20 MG Delayed Release Oral Capsule 05/17/2021 12:00:00 A M EDT eCW1 ([facility]) Pseudoephedrine Hydrochloride 30 MG Oral Tablet 03/16/2021 12:00:00 AM EDT eCW1 ([facility]) Amoxicillin 500 MG / Clavulanate 125 MG Oral Tablet [A ugmentin] 03/16/2021 12:00:00 AM EDT eCW1 ([facility]) Pseudoephedrine Hydrochloride 30 MG Oral Tablet 03/16/2021 12:00:00 AM EDT eCW1 ([facility]) Amoxicillin 500 MG / Clavulanate 125 MG Oral Tablet [A ugmentin] 03/16/2021 12:00:00 AM EDT eCW1 ([facility]) Bupropion Hydrochloride 75 MG Oral Tablet 02/15/2021 12:00:00 AM ED T eCW1 ([facility]) Bupropion Hydrochloride 75 MG Oral Tablet 02/15/2021 12:00:00 AM ED T eCW1 ([facility]) Bupropion Hydrochloride 75 MG Oral Tablet 02/15/2021 12:00:00 AM ED T eCW1 ([facility]) Bupropion Hydrochloride 75 MG Oral Tablet 02/15/2021 12:00:00 AM ED T eCW1 ([facility]) Bupropion Hydrochloride 75 MG Oral Tablet 02/15/2021 12:00:00 AM ED T eCW1 ([facility]) Bupropion Hydrochloride 75 MG Oral Tablet 02/15/2021 12:00:00 AM ED T eCW1 ([facility]) Bupropion Hydrochloride 75 MG Oral Tablet 02/15/2021 12:00:00 AM ED T eCW1 ([facility]) Bupropion Hydrochloride 75 MG Oral Tablet 02/15/2021 12:00:00 AM ED T eCW1 ([facility]) Bupropion Hydrochloride 75 MG Oral Tablet 02/15/2021 12:00:00 AM ED T eCW1 ([facility]) Bupropion Hydrochloride 75 MG Oral Tablet 02/15/2021 12:00:00 AM ED T eCW1 ([facility]) Bupropion Hydrochloride 75 MG Oral Tablet 02/15/2021 12:00:00 AM ED T eCW1 ([facility]) cefdinir 300 MG Oral Capsule 02/09/2021 12:00:00 AM EDT eCW1 ([facility]) cefdinir 300 MG Oral Capsule 02/09/2021 12:00:00 AM EDT eCW1 ([facility]) Aspirin 81 MG Delayed Release Oral Tablet 01/05/2021 12:00:00 AM ED T eCW1 ([facility]) Aspirin 81 MG Delayed Release Oral Tablet 01/05/2021 12:00:00 AM ED T eCW1 ([facility]) atorvastatin 20 MG Oral Tablet 01/05/2021 12:00:00 AM EDT eCW1 ([facility]) Aspirin 81 MG Delayed Release Oral Tablet 01/05/2021 12:00:00 AM ED T eCW1 ([facility]) atorvastatin 20 MG Oral Tablet 01/05/2021 12:00:00 AM EDT eCW1 ([facility]) Aspirin 81 MG Delayed Release Oral Tablet 01/05/2021 12:00:00 AM ED T eCW1 ([facility]) atorvastatin 20 MG Oral Tablet 01/05/2021 12:00:00 AM EDT eCW1 ([facility]) Aspirin 81 MG Delayed Release Oral Tablet 01/05/2021 12:00:00 AM ED T eCW1 ([facility]) atorvastatin 20 MG Oral Tablet 01/05/2021 12:00:00 AM EDT eCW1 ([facility]) atorvastatin 20 MG Oral Tablet 01/05/2021 12:00:00 AM EDT eCW1 ([facility]) Aspirin 81 MG Delayed Release Oral Tablet 01/05/2021 12:00:00 AM ED T eCW1 ([facility]) Aspirin 81 MG Delayed Release Oral Tablet 01/05/2021 12:00:00 AM ED T eCW1 ([facility]) Fluocinolone Acetonide 0.1 MG/ML Topical Solution 01/04/2021 12: 00:00 AM EDT eCW1 ([facility]) Pimecrolimus 10 MG/ML Topical Cream [Elidel] 12/29/2020 12:00:00 AM EDT eCW1 ([facility]) Fluocinonide 0.5 MG/ML Topical Solution 12/29/2020 12:00:00 AM EDT eCW1 ([facility]) Pimecrolimus 10 MG/ML Topical Cream [Elidel] 12/29/2020 12:00:00 AM EDT eCW1 ([facility]) Fluocinonide 0.5 MG/ML Topical Solution 12/29/2020 12:00:00 AM EDT eCW1 ([facility]) azelaic acid 200 MG/ML Topical Cream [Azelex] 12/29/2020 12:00:00 A M EDT eCW1 ([facility]) Pimecrolimus 10 MG/ML Topical Cream [Elidel] 12/29/2020 12:00:00 AM EDT eCW1 ([facility]) Fluocinonide 0.5 MG/ML Topical Solution 12/29/2020 12:00:00 AM EDT eCW1 ([facility]) Pimecrolimus 10 MG/ML Topical Cream [Elidel] 12/29/2020 12:00:00 AM EDT eCW1 ([facility]) Fluocinonide 0.5 MG/ML Topical Solution 12/29/2020 12:00:00 AM EDT eCW1 ([facility]) azelaic acid 200 MG/ML Topical Cream [Azelex] 12/29/2020 12:00:00 A M EDT eCW1 ([facility]) Furosemide 40 MG Oral Tablet [Lasix] 11/25/2020 12:00:00 AM EDT eCW1 ([facility]) Furosemide 40 MG Oral Tablet [Lasix] 11/25/2020 12:00:00 AM EDT eCW1 ([facility]) Furosemide 40 MG Oral Tablet [Lasix] 11/25/2020 12:00:00 AM EDT eCW1 ([facility]) Furosemide 40 MG Oral Tablet [Lasix] 11/25/2020 12:00:00 AM EDT eCW1 ([facility]) Furosemide 40 MG Oral Tablet [Lasix] 11/25/2020 12:00:00 AM EDT eCW1 ([facility]) Azelastine HCl 0.1 % 08/31/2020 12:00:00 AM EST eCW1 ([facility]) Azelastine HCl 0.1 % 08/31/2020 12:00:00 AM EST eCW1 ([facility]) Azelastine HCl 0.1 % 08/31/2020 12:00:00 AM EST eCW1 ([facility]) Loratadine 10 MG Oral Tablet 08/30/2020 12:00:00 AM EST eCW1 ([facility]) Loratadine 10 MG Oral Tablet 08/30/2020 12:00:00 AM EST eCW1 ([facility]) Loratadine 10 MG Oral Tablet 08/30/2020 12:00:00 AM EST eCW1 ([facility]) Fluocinolone Acetonide 0.25 MG/ML Topical Cream 07/29/2020 12:00:00 AM EST eCW1 ([facility]) Cetirizine HCl 10 MG 07/29/2020 12:00:00 AM EST eCW1 ([facility]) Cetirizine HCl 10 MG 07/29/2020 12:00:00 AM EST eCW1 ([facility]) Fluocinolone Acetonide 0.25 MG/ML Topical Cream 07/29/2020 12:00:00 AM EST eCW1 ([facility]) cetirizine hydrochloride 10 MG Chewable Tablet 07/29/2020 12:00:00 AM EST eCW1 ([facility]) Cetirizine HCl 10 MG 07/29/2020 12:00:00 AM EST eCW1 ([facility]) Fluocinolone Acetonide 0.25 MG/ML Topical Cream 07/29/2020 12:00:00 AM EST eCW1 ([facility]) cetirizine hydrochloride 10 MG Chewable Tablet 07/29/2020 12:00:00 AM EST eCW1 ([facility]) Cetirizine HCl 10 MG 07/29/2020 12:00:00 AM EST eCW1 ([facility]) Fluocinolone Acetonide 0.25 MG/ML Topical Cream 07/29/2020 12:00:00 AM EST eCW1 ([facility]) cetirizine hydrochloride 10 MG Chewable Tablet 07/29/2020 12:00:00 AM EST eCW1 ([facility]) Diclofenac Sodium 0.01 MG/MG Topical Gel [Voltaren] 07/09/20 12:00:00 AM EDT eCW1 ([facility]) Diclofenac Sodium 0.01 MG/MG Topical Gel [Voltaren] 07/09/20 12:00:00 AM EDT eCW1 ([facility]) Diclofenac Sodium 0.01 MG/MG Topical Gel [Voltaren] 07/09/20 12:00:00 AM EDT eCW1 ([facility]) Diclofenac Sodium 0.01 MG/MG Topical Gel [Voltaren] 07/09/20 12:00:00 AM EDT eCW1 ([facility]) Ciprofloxacin 250 MG Oral Tablet [Cipro] 06/23/2020 12:00:00 AM EDT eCW1 ([facility])
[2021-07-02] MEDS ORDERED: PRED20TA PO ×2 (13:42→17:29)
[2021-07-02] MEDS ORDERED: ACET-683 PO (13:42)
[2021-07-02] MEDS ORDERED: LIDOCAINE 4% CREAM 5GM (LMX4) TOP ONE (15:50)
[2021-07-02] MEDS ORDERED: GABAPENTIN 300 MG CAP PO ONE (15:50)
[2021-07-02 16:21] LABS: BASO % 0.1 % (0.0-1.0); EOS % 0.1 % (0.0-3.0); HEMATOCRIT 42.4 % (36.0-47.0); HEMOGLOBIN 13.6 g/dl (12.0-15.5); LYMPH # 0.9 10^3/uL (1.5-5.0); LYMPH % 12.8 % (24.0-44.0); MEAN CORPUSCULAR HEMOGLOBIN 29.6 pg (27.0-33.0); MEAN CORPUSCULAR HGB CONC 32.1 g/dl (32.0-36.5); MEAN CORPUSCULAR VOLUME 92.4 fl (80.0-96.0); MONO # 0.1 10^3/uL (0.0-0.8); MONO % 1.9 % (2.0-8.0); NEUTROPHILS # 5.9 10^3/uL (1.5-8.5); NEUTROPHILS % 84.8 % (36.0-66.0); PLATELET COUNT, AUTOMATED 242 10^3/uL (150-450); RED BLOOD COUNT 4.59 10^6/uL (4.00-5.40); WHITE BLOOD COUNT 6.9 10^3/uL (4.0-10.0)
--- OUTSIDE RECORDS SUMMARY | 2021-07-02 16:28 | CCD ---
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 Name Role Phone WYATT MAYERS MD Unavailable [...] GODINEZ MD Unavailable Unavailable GIOVANNA, BREE JESUS ESTIMATOR PAPERBOARD BOXES-C Unavailable Unavailable GIOVANNA, BREE JESUS ESTIMATOR PAP[employer]BOARD BOXES-C Unavailable Unavailable GIOVANNA, BREE JESUS ESTIMATOR PAPERBOARD BOXES-C Unavailable Unavailable GIOVANNA, BREE JESUS ESTIMATOR PAPERBOARD BOXES-C Unavailable Unavailable GIOVANNA, BREE JESUS ESTIMATOR PAP[employer]BOARD BOXES-C Unavailable Unavailable GIOVANNA, BREE JESUS ESTIMATOR PAP[employer]BOARD BOXES-C Unavailable Unavailable GIOVANNA, BREE JESUS ESTIMATOR PAP[employer]BOARD BOXES-C Unavailable Unavailable GIOVANNA, BREE JESUS ESTIMATOR PAPERBOARD BOXES-C Unavailable Unavailable GIOVANNA, BREE JESUS ESTIMATOR PAPERBOARD BOXES-C Unavailable Unavailable GIOVANNA, BREE JESUS ESTIMATOR PAPERBOARD BOXES-C Unavailable Unavailable GIOVANNA, BREE JESUS ESTIMATOR PAPERBOARD BOXES-C Unavailable Unavailable GIOVANNA, BREE JESUS ESTIMATOR PAPERBOARD BOXES-C Unavailable Unavailable GIOVANNA, BREE JESUS ESTIMATOR PAPERBOARD BOXES-C Unavailable Unavailable GIOVANNA, BREE JESUS ESTIMATOR PAPERBOARD BOXES-C Unavailable Unavailable GIOVANNA, BREE JESUS ESTIMATOR PAPERBOARD BOXES-C Unavailable Unavailable GIOVANNA, BREE JESUS ESTIMATOR PAPERBOARD BOXES-C Unavailable Unavailable GIOVANNA, BREE JESUS ESTIMATOR PAPERBOARD BOXES-C Unavailable Unavailable ANTECOL, Stacie ANDERSON MD Unavailable [...] is protected by Article 27-F of the [facility] Public Health law. If you continue you may have access to information: Regarding HIV / AIDS; Provided by facilities licensed or operated by the [facility] Office of Mental Health; or Provided by the [facility] Office for People With Developmental Disabilities. If such information is present, then the following [facility] mandated warning applies: This information has [...] law may result in a fine or skilled nursing sentence or both. A general authorization for [...] [facility]) Unknown Male Problem MEDENT ([facility]) Unknown Unknown Problem [facility] Encounters Encounter Providers Location Date Indications Data Source(s ) Outpatient Attender: Ellie Schafer MD 1 12:59:32 PM EDT - 06/30/2021 03:05:37 PM EDT [facility] ([facility] Outpatient [address], [facility] [address] 06/29/2021 12:00:00 AM EDT eCW1 ([facility]) [place] [address] [address] 06/29/2021 12:00:00 AM EDT [facility]CW1 [facility] [place] [address] [address] 06/20/2021 12:00:00 AM EDT eCW1 ([facility]) [place] [address] [address] 06/17/2021 12:00:00 AM EDT eCW1 ([facility]) Outpatient Attender: JESUS Parsons/Robbin/Jose Manuel/Emiliano chang 06/15/2021 08:45:00 AM EDT MEDENT ([facility]) Outpatient Attender: WYATT MAYERS MD Main Office 06/13/2021 03:15:00 PM EDT MEDENT ([facility] [place] [address] [address] 06/08/2021 12:00:00 AM EDT eCW1 [facility] [place] [address] [address] [address] 06/01/2021 12:00:00 AM EDT eCW1 ([facility]) [place] [address] [address] [address] 06/01/2021 12:00:00 AM EDT eCW1 ([facility]) [place] [address] [address] 06/01/2021 12:00:00 AM EDT eCW1 [facility] [place] [address] [address] 05/29/2021 12:00:00 AM EDT eCW1 ([facility] [place] [address] [address] [address] 05/26/2021 12:00:00 AM EDT eCW1 ([facility]) [place] [address] [address] [address] 05/26/2021 12:00:00 AM EDT eCW1 ([facility]) [place] [address] [address] 05/17/2021 12:00:00 AM EDT eCW1 ([facility]) [place] [address] [address] 04/13/2021 12:00:00 AM EDT eCW1 ([facility]) [place] [address] [address] 03/28/2021 12:00:00 AM EDT eCW1 ([facility]) [place] [address] [address] 03/24/2021 12:00:00 AM EDT eCW1 ([facility]) [place] [address] [facility] [address] 03/23/2021 12:00:00 AM EDT eCW1 ([facility] [place] [address] [address] 03/22/2021 12:00:00 AM EDT eCW1 ([facility]) Unknown [address] [address] 03/22/2021 12:00:00 AM EDT eCW1 ([facility]) Unknown [address] [address] 03/18/2021 12:00:00 AM EDT eCW1 ([facility] [place] [address] [facility] [address] 03/16/2021 12:00:00 AM EDT eCW1 ([facility]) [place] [address] [facility] [address] 03/10/2021 12:00:00 AM EDT eCW1 ([facility]) (PN [facility]) W/C Procedure [address] [place] [address] 03/09/2021 12:00:00 AM EDT eCW1 ([facility]) [place] [address] [address] 03/03/2021 12:00:00 AM EDT eCW1 ([facility]) [place] [address] [address] 03/03/2021 12:00:00 AM EDT eCW1 ([facility]) Unknown [address] [address] 02/22/2021 12:00:00 AM EDT eCW1 ([facility]) Unknown [address] [address] [address] 02/21/2021 12:00:00 AM EDT eCW1 ([facility]) Outpatient Attender: BELINDA Parsons/Robbin/Geo abdalla/Brodie 02/17/2021 11:40:00 AM EDT MEDENT ([facility] ) Outpatient Attender: JESUS Parsons/Robbin/Jose Manuel/Emiliano chang 02/15/2021 12:45:00 PM EDT MEDENT ([facility] [place] [address] [address] 02/15/2021 12:00:00 AM EDT eCW1 ([facility]) Unknown [address] [address] [address] 02/11/2021 12:00:00 AM EDT eCW1 ([facility]) Outpatient [address] [address] 02/09/2021 12:00:00 AM EDT eCW1 ([facility]) Unknown [address] [address] 02/08/2021 12:00:00 AM EDT eCW1 ([facility]) [place] [address] [address] 02/04/2021 12:00:00 AM EDT eCW1 ([facility]) Outpatient Attender: JUSTIN DALTON MD Main Office 02/02/2021 09:00:00 AM EDT MEDENT ([facility]) [place] [address] [address] 01/31/2021 12:00:00 AM EDT eCW1 ([facility]) Unknown [address] [address] [address] 01/20/2021 12:00:00 AM EDT eCW1 ([facility]) Outpatient [address] [address] 01/18/2021 12:00:00 AM EDT eCW1 ([facility]) Unknown [address] [address] 01/16/2021 12:00:00 AM EDT eCW1 ([facility]) Unknown [address] [address] [address] 01/11/2021 12:00:00 AM EDT eCW1 ([facility]) Out[place] [address] [address] 01/06/2021 12:00:00 AM EDT eCW1 ([facility]) Outpatient [address] [address] 01/06/2021 12:00:00 AM EDT eCW1 ([facility]) Unknown [address] [address] [address] 01/06/2021 12:00:00 AM EDT eCW1 ([facility]) Outpatient [address] [address] 01/05/2021 12:00:00 AM EDT eCW1 ([facility]) Unknown [address] [address] 01/04/2021 12:00:00 AM EDT eCW1 ([facility]) Unknown [address] [address] 01/04/2021 12:00:00 AM EDT eCW1 ([facility]) Unknown [address] [address] 01/04/2021 12:00:00 AM EDT eCW1 ([facility]) Unknown [address] [address] 01/03/2021 12:00:00 AM EDT eCW1 ([facility]) Outpatient [address] [address] 12/29/2020 12:00:00 AM EDT eCW1 ([facility]) [place] [address] [address] 12/26/2020 12:00:00 AM EDT eCW1 ([facility]) Outpatient Attender: WYATT MAYERS MD Main Office 12/23/2020 03:30:00 PM EDT MEDENT ([facility]) Unknown [address] [facility] [address] 12/23/2020 12:00:00 AM EDT eCW1 [facility]) Unknown [address] [address] 12/22/2020 12:00:00 AM EDT eCW1 ([facility]) Unknown [address] [address] 12/21/2020 12:00:00 AM EDT eCW1 ([facility]) Outpatient [address] [address] 12/20/2020 12:00:00 AM EDT eCW1 ([facility]) Unknown [address] [address] 12/16/2020 12:00:00 AM EDT eCW1 ([facility]) Unknown [address] [facility] [address] 12/14/2020 12:00:00 AM EDT eCW1 ([facility]) Unknown [address] [address] 12/06/2020 12:00:00 AM EDT eCW1 ([facility]) Outpatient [address] [address] 12/02/2020 12:00:00 AM EDT eCW1 ([facility]) Unknown [address] [facility] [facility] [address] 12/01/2020 12:00:00 AM EDT eCW1 ([facility]) Outpatient [address] [facility] [address] 12/01/2020 12:00:00 AM EDT eCW1 ([facility]) Unknown [address] [address] 11/26/2020 12:00:00 AM EDT eCW1 ([facility]) Unknown [address] [facility] [address] 11/26/2020 12:00:00 AM EDT eCW1 ([facility]) Outpatient [address] [facility] [facility] [address] 11/25/2020 12:00:00 AM EDT eCW1 ([facility]) Unknown [address] [facility] [facility] [address] 11/25/2020 12:00:00 AM EDT eCW1 ([facility]) Unknown [address] [facility] [facility] [address] 11/24/2020 12:00:00 AM EDT eCW1 ([facility]) Outpatient [address] [facility] [facility] [address] 11/03/2020 12:00:00 AM EST eCW1 ([facility]) (PN PROC) W/C Procedure [address] [place] [address] 11/03/2020 12:00:00 AM EST eCW1 ([facility]) [place] [address] [facility] [address] 11/03/2020 12:00:00 AM EST eCW1 ([facility]) Unknown [address] [address] 11/02/2020 12:00:00 AM EST eCW1 ([facility]) Unknown [address] [facility] [address] 10/29/2020 12:00:00 AM EST eCW1 ([facility]) Unknown [address] [address] 10/14/2020 12:00:00 AM EST eCW1 ([facility]) Unknown [address] [address] 09/13/2020 12:00:00 AM EST eCW1 ([facility]) Unknown [address] [facility] [address] 08/31/2020 12:00:00 AM EST eCW1 ([facility]) Outpatient [address] [address] 08/30/2020 12:00:00 AM EST eCW1 ([facility]) Outpatient [address] [facility] [address] 08/18/2020 12:00:00 AM EST eCW1 ([facility]) Outpatient [address] [address] 07/29/2020 12:00:00 AM EST eCW1 ([facility]) Unknown [address] [address] 07/29/2020 12:00:00 AM EST eCW1 ([facility]) Unknown [address] [facility] [address] 07/29/2020 12:00:00 AM EST eCW1 ([facility]) Unknown [address] [facility] [address] 07/29/2020 12:00:00 AM EST [facility]CW1 [facility] [place] [address] [facility] [address] 07/13/2020 12:00:00 AM EST eCW1 ([facility]) Unknown [address] [facility] [address] 07/13/2020 12:00:00 AM EST eCW1 ([facility]) Outpatient [address] [facility] [address] 07/09/2020 12:00:00 AM EDT eCW1 ([facility]) Outpatient Attender: WYATT MAYERS MD Main Office 06/24/2020 02:30:00 PM EDT MEDENT ([facility]) Outpatient [address] [facility] [facility] [address] 06/23/2020 12:00:00 AM EDT eCW1 ([facility]) Unknown [address] [address] 06/22/2020 12:00:00 AM EDT eCW1 ([facility]) Unknown [address] [address] 06/18/2020 12:00:00 AM EDT eCW1 ([facility]) Outpatient [address] [facility] [address] 06/18/2020 12:00:00 AM EDT eCW1 ([facility]) Unknown [address] [address] 06/14/2020 12:00:00 AM EDT eCW1 ([facility]) Immunizations Vaccine Date Status Description Data Source(s) COVID-19 VACCINE Moderna 12/22/2020 12:00:00 AM EDT completed [facility] Vaccine Series Complete: YESThis Data wa s Submitted to [facility] Via [facility]. COVID-19 VACCINE, MRNA-1273, LNP-S (MODERNA)/PF 12/22/2020 1 2:00:00 AM EDT completed [facility] COVID-19 dose #1 given elsewhere Unspecified 11/19/2020 01:3 4:00 PM EST completed eCW1 ([facility]) COVID-19 dose #1 given elsewhere Unspecified 11/19/2020 01:3 4:00 PM EST completed eCW1 ([facility]) COVID-19 dose #1 given elsewhere Unspecified 11/19/2020 01:3 4:00 PM EST completed eCW1 ([facility]) COVID-19 dose #1 given elsewhere Unspecified 11/19/2020 01:3 4:00 PM EST completed eCW1 ([facility]) COVID-19 dose #1 given elsewhere Unspecified 11/19/2020 01:3 4:00 PM EST completed eCW1 ([facility]) COVID-19 dose #1 given elsewhere Unspecified 11/19/2020 01:3 4:00 PM EST completed eCW1 ([facility]) COVID-19 dose #1 given elsewhere Unspecified 11/19/2020 01:3 4:00 PM EST completed eCW1 ([facility]) COVID-19 dose #1 given elsewhere Unspecified 11/19/2020 01:3 4:00 PM EST completed eCW1 ([facility]) COVID-19 dose #1 given elsewhere Unspecified 11/19/2020 01:3 4:00 PM EST completed eCW1 ([facility]) COVID-19 dose #1 given elsewhere Unspecified 11/19/2020 01:3 4:00 PM EST completed eCW1 ([facility]) COVID-19 dose #1 given elsewhere Unspecified 11/19/2020 01:3 4:00 PM EST completed eCW1 ([facility]) COVID-19 dose #1 given elsewhere Unspecified 11/19/2020 01:3 4:00 PM EST completed eCW1 ([facility]) COVID-19 dose #1 given elsewhere Unspecified 11/19/2020 01:3 4:00 PM EST completed eCW1 ([facility]) COVID-19 dose #1 given elsewhere Unspecified 11/19/2020 01:3 4:00 PM EST completed eCW1 ([facility]) COVID-19 dose #1 given elsewhere Unspecified 11/19/2020 01:3 4:00 PM EST completed eCW1 ([facility]) COVID-19 dose #1 given elsewhere Unspecified 11/19/2020 01:3 4:00 PM EST completed eCW1 ([facility]) COVID-19 dose #1 given elsewhere Unspecified 11/19/2020 01:3 4:00 PM EST completed eCW1 ([facility]) COVID-19 dose #1 given elsewhere Unspecified 11/19/2020 01:3 4:00 PM EST completed eCW1 ([facility]) COVID-19 dose #1 given elsewhere Unspecified 11/19/2020 01:3 4:00 PM EST completed eCW1 ([facility]) COVID-19 dose #1 given elsewhere Unspecified 11/19/2020 01:3 4:00 PM EST completed eCW1 ([facility]) COVID-19 dose #1 given elsewhere Unspecified 11/19/2020 01:3 4:00 PM EST completed eCW1 ([facility]) COVID-19 dose #1 given elsewhere Unspecified 11/19/2020 01:3 4:00 PM EST completed eCW1 ([facility]) COVID-19 dose #1 given elsewhere Unspecified 11/19/2020 01:3 4:00 PM EST completed eCW1 ([facility]) COVID-19 dose #1 given elsewhere Unspecified 11/19/2020 01:3 4:00 PM EST completed eCW1 ([facility]) COVID-19 dose #1 given elsewhere Unspecified 11/19/2020 01:3 4:00 PM EST completed eCW1 ([facility]) COVID-19 dose #1 given elsewhere Unspecified 11/19/2020 01:3 4:00 PM EST completed eCW1 ([facility]) COVID-19 dose #1 given elsewhere Unspecified 11/19/2020 01:3 4:00 PM EST completed eCW1 ([facility]) COVID-19 dose #1 given elsewhere Unspecified 11/19/2020 01:3 4:00 PM EST completed eCW1 ([facility]) COVID-19 dose #1 given elsewhere Unspecified 11/19/2020 01:3 4:00 PM EST completed eCW1 ([facility]) COVID-19 dose #1 given elsewhere Unspecified 11/19/2020 01:3 4:00 PM EST completed eCW1 ([facility]) COVID-19 dose #1 given elsewhere Unspecified 11/19/2020 01:3 4:00 PM EST completed eCW1 ([facility]) COVID-19 dose #1 given elsewhere Unspecified 11/19/2020 01:3 4:00 PM EST completed eCW1 ([facility]) COVID-19 dose #1 given elsewhere Unspecified 11/19/2020 01:3 4:00 PM EST completed eCW1 ([facility]) COVID-19 dose #1 given elsewhere Unspecified 11/19/2020 01:3 4:00 PM EST completed eCW1 ([facility]) COVID-19 dose #1 given elsewhere Unspecified 11/19/2020 01:3 4:00 PM EST completed eCW1 ([facility]) COVID-19 dose #1 given elsewhere Unspecified 11/19/2020 01:3 4:00 PM EST completed eCW1 ([facility]) COVID-19 dose #1 given elsewhere Unspecified 11/19/2020 01:3 4:00 PM EST completed eCW1 ([facility]) COVID-19 dose #1 given elsewhere Unspecified 11/19/2020 01:3 4:00 PM EST completed eCW1 ([facility]) COVID-19 dose #1 given elsewhere Unspecified 11/19/2020 01:3 4:00 PM EST completed eCW1 ([facility]) COVID-19 dose #1 given elsewhere Unspecified 11/19/2020 01:3 4:00 PM EST completed eCW1 ([facility]) COVID-19 dose #1 given elsewhere Unspecified 11/19/2020 01:3 4:00 PM EST completed eCW1 ([facility]) COVID-19 dose #1 given elsewhere Unspecified 11/19/2020 01:3 4:00 PM EST completed eCW1 ([facility]) COVID-19 dose #1 given elsewhere Unspecified 11/19/2020 01:3 4:00 PM EST completed eCW1 ([facility]) COVID-19 dose #1 given elsewhere Unspecified 11/19/2020 01:3 4:00 PM EST completed eCW1 ([facility]) COVID-19 dose #1 given elsewhere Unspecified 11/19/2020 01:3 4:00 PM EST completed eCW1 ([facility]) COVID-19 dose #1 given elsewhere Unspecified 11/19/2020 01:3 4:00 PM EST completed eCW1 ([facility]) COVID-19 dose #1 given elsewhere Unspecified 11/19/2020 01:3 4:00 PM EST completed eCW1 ([facility]) COVID-19 dose #1 given elsewhere Unspecified 11/19/2020 01:3 4:00 PM EST completed eCW1 ([facility]) COVID-19 dose #1 given elsewhere Unspecified 11/19/2020 01:3 4:00 PM EST completed eCW1 ([facility]) COVID-19 dose #1 given elsewhere Unspecified 11/19/2020 01:3 4:00 PM EST completed eCW1 ([facility]) COVID-19 dose #1 given elsewhere Unspecified 11/19/2020 01:3 4:00 PM EST completed eCW1 ([facility]) COVID-19 dose #1 given elsewhere Unspecified 11/19/2020 01:3 4:00 PM EST completed eCW1 ([facility]) COVID-19 dose #1 given elsewhere Unspecified 11/19/2020 01:3 4:00 PM EST completed eCW1 ([facility]) COVID-19 dose #1 given elsewhere Unspecified 11/19/2020 01:3 4:00 PM EST completed eCW1 ([facility]) COVID-19 dose #1 given elsewhere Unspecified 11/19/2020 01:3 4:00 PM EST completed eCW1 ([facility]) COVID-19 dose #1 given elsewhere Unspecified 11/19/2020 01:3 4:00 PM EST completed eCW1 ([facility]) COVID-19 dose #1 given elsewhere Unspecified 11/19/2020 01:3 4:00 PM EST completed eCW1 ([facility]) COVID-19 dose #1 given elsewhere Unspecified 11/19/2020 01:3 4:00 PM EST completed eCW1 ([facility]) COVID-19 dose #1 given elsewhere Unspecified 11/19/2020 01:3 4:00 PM EST completed eCW1 ([facility]) COVID-19 dose #1 given elsewhere Unspecified 11/19/2020 01:3 4:00 PM EST completed eCW1 ([facility]) COVID-19 dose #1 given elsewhere Unspecified 11/19/2020 01:3 4:00 PM EST completed eCW1 ([facility]) COVID-19 dose #1 given elsewhere Unspecified 11/19/2020 01:3 4:00 PM EST completed eCW1 ([facility]) COVID-19 VACCINE Moderna 11/19/2020 12:00:00 AM EST completed [facility] Vaccine Series Complete: NOThis Data was Submitted to [facility] Via [email or web address]. COVID-19 VACCINE, MRNA-1273, LNP-S (MODERNA)/PF 11/19/2020 1 2:00:00 AM EST completed [facility] INFLUENZA VIRUS VACCINE QUADRIVAL 5270-7550(6 MOS AND UP)/PF 10/14/2020 12:00:00 AM EST completed [facility] Medications Medication Brand Name Start Date Product Form Dose Route Admi nistrative Instructions Pharmacy Instructions Status Indications Reaction Description Data Source(s) tramadol hydrochloride 50 MG Oral Tablet traMADol HCl 50 MG traMADol HCl 50 MG 06/30/2021 12:00:00 AM EDT active traMADol HCl 50 MG eCW1 ([facility]) atorvastatin 80 MG Oral Tablet Atorvastatin Calcium 80 MG Atorvastatin Calcium 80 MG 06/30/2021 12:00:00 AM EDT 1.0 {tablet} activ e Atorvastatin Calcium 80 MG eCW1 ([facility]) tramadol hydrochloride 50 MG Oral Tablet traMADol HCl 50 MG traMADol HCl 50 MG 06/30/2021 12:00:00 AM EDT active traMADol HCl 50 MG eCW1 ([facility]) pregabalin 150 MG Oral Capsule [Lyrica] Lyrica 150 MG Lyrica 150 MG 06/30/2021 12:00:00 AM EDT 1.0 {capsule} active L yrica 150 MG eCW1 ([facility]) atorvastatin 80 MG Oral Tablet Atorvastatin Calcium 80 MG Atorvastatin Calcium 80 MG 06/30/2021 12:00:00 AM EDT 1.0 {tablet} activ e Atorvastatin Calcium 80 MG eCW1 ([facility]) pregabalin 150 MG Oral Capsule [Lyrica] Lyrica 150 MG Lyrica 150 MG 06/30/2021 12:00:00 AM EDT 1.0 {capsule} active L yrica 150 MG eCW1 ([facility]) Metformin hydrochloride 850 MG Oral Tablet metFORMIN H Cl 850 MG metFORMIN HCl 850 MG 06/30/2021 12:00:00 AM EDT 1.0 {tablet_with_a_meal} active metFORMIN HCl 850 MG eCW1 ([facility]) Metformin hydrochloride 850 MG Oral Tablet metFORMIN H Cl 850 MG metFORMIN HCl 850 MG 06/30/2021 12:00:00 AM EDT 1.0 {tablet_with_a_meal} active metFORMIN HCl 850 MG eCW1 ([facility]) Hydroxyzine Pamoate 25 MG Oral Capsule hydrOXYzine Becky oate 25 MG hydrOXYzine Pamoate 25 MG 06/29/2021 12:00:00 AM EDT 1.0 {capsule_as_needed} active hydrOXYzine Pamoate 25 MG eCW1 ([facility]) Hydroxyzine Pamoate 25 MG Oral Capsule hydrOXYzine Becky oate 25 MG hydrOXYzine Pamoate 25 MG 06/29/2021 12:00:00 AM EDT 1.0 {capsule_as_needed} active hydrOXYzine Pamoate 25 MG eCW1 ([facility]) 1 mg 06/25/2021 12:00:00 AM EDT tablet 90 TAKE ONE TABLET BY MOUTH EVERY DAY TAKE ONE TABLET BY MOUTH EVERY DAY SOLD: 06/26/2021 [facility] 0.01 % (0.1 mg/gram) 06/25/2021 12:00:00 AM EDT cream 42 APPLY 1/2 GRAM VAGINALLY TWO TIMES A WEEK APPLY 1/2 GRAM VAGINALLY TWO TIMES A WEEK SOLD: 06/26/2021 [facility] valacyclovir 1000 MG Oral Tablet [Valtrex] Valtrex 1 GM Valt marii 1 GM 06/24/2021 12:00:00 AM EDT 1.0 {tablet} active Va ltrex 1 GM eCW1 ([facility]) valacyclovir 1000 MG Oral Tablet VALACYCLOVIR HCL [...] DAYS THEN CONTINUE ONCE DAILY SOLD: 06/26/2021 [facility] Lidocaine 40 MG/ML Topical Cream Lidocaine 4 % Lidocaine 4 % 06/24/2021 12:00:00 AM EDT suspended Lidocaine 4 % eCW1 ([facility]) Lidocaine 40 MG/ML Topical Cream Lidocaine 4 % Lidocaine 4 % 06/24/2021 12:00:00 AM EDT suspended Lidocaine 4 % eCW1 ([facility]) valacyclovir 1000 MG Oral Tablet [Valtrex] Valtrex 1 GM Valt marii 1 GM 06/24/2021 12:00:00 AM EDT 1.0 {tablet} active Va ltrex 1 GM eCW1 ([facility]) 4 gram 06/08/2021 12:00:00 AM EDT powder [...] ER 650 MG e CW1 ([facility]) Clobetasol Propionate 0.5 MG/ML Topical Foam Clobetaso l Propionate 0.05 % Clobetasol Propionate 0.05 % 06/01/2021 12:00:00 AM EDT 1.0 {applicat ion} active Clobetasol Propionate 0.05 % eCW1 ([facility]) 8 HR Acetaminophen 650 MG Extended Release Oral Tablet Acetaminophen ER 650 MG Acetaminophen ER 650 MG 06/01/2021 12:00:00 AM EDT 1.0 {tablets_as_ needed} active Acetaminophen ER 650 MG e CW1 ([facility]) Clobetasol Propionate 0.5 MG/ML Topical Foam Clobetaso l Propionate 0.05 % Clobetasol Propionate 0.05 % 06/01/2021 12:00:00 AM EDT 1.0 {applicat ion} active Clobetasol Propionate 0.05 % eCW1 ([facility]) 300 mg 06/01/2021 12:00:00 AM EDT capsule 30 TAKE ONE CAPSULE BY MOUTH EVERY DAY TAKE ONE CAPSULE BY MOUTH EVERY DAY SOLD: 06/04/2021 [facility] Clobetasol Propionate 0.5 MG/ML Topical Foam Clobetaso l Propionate 0.05 % Clobetasol Propionate 0.05 % 06/01/2021 12:00:00 AM EDT 1.0 {applicat ion} active Clobetasol Propionate 0.05 % eCW1 ([facility]) 8 HR Acetaminophen 650 MG Extended Release Oral Tablet Acetaminophen ER 650 MG Acetaminophen ER 650 MG 06/01/2021 12:00:00 AM EDT 1.0 {tablets_as_ needed} active Acetaminophen ER 650 MG e CW1 ([facility]) cefdinir 300 MG Oral Capsule Cefdinir 300 MG Cefdinir 300 MG 06/01/2021 12:00:00 AM EDT active Cefdinir 300 MG eCW1 ([facility]) 8 HR Acetaminophen 650 MG Extended Release Oral Tablet Acetaminophen ER 650 MG Acetaminophen ER 650 MG 06/01/2021 12:00:00 AM EDT 1.0 {tablets_as_ needed} active Acetaminophen ER 650 MG e CW1 ([facility]) 8 HR Acetaminophen 650 MG Extended Release Oral Tablet Acetaminophen ER 650 MG Acetaminophen ER 650 MG 06/01/2021 12:00:00 AM EDT 1.0 {tablets_as_ needed} active Acetaminophen ER 650 MG e CW1 ([facility]) cefdinir 300 MG Oral Capsule Cefdinir 300 MG Cefdinir 300 MG 06/01/2021 12:00:00 AM EDT active Cefdinir 300 MG eCW1 ([facility]) cefdinir 300 MG Oral Capsule Cefdinir 300 MG Cefdinir 300 MG 06/01/2021 12:00:00 AM EDT active Cefdinir 300 MG eCW1 ([facility]) cefdinir 300 MG Oral Capsule Cefdinir 300 MG Cefdinir 300 MG 06/01/2021 12:00:00 AM EDT active Cefdinir 300 MG eCW1 ([facility]) cefdinir 300 MG Oral Capsule Cefdinir 300 MG Cefdinir 300 MG 06/01/2021 12:00:00 AM EDT active Cefdinir 300 MG eCW1 ([facility]) Clobetasol Propionate 0.5 MG/ML Topical Foam Clobetaso l Propionate 0.05 % Clobetasol Propionate 0.05 % 06/01/2021 12:00:00 AM EDT 1.0 {applicat ion} active Clobetasol Propionate 0.05 % eCW1 ([facility]) Clobetasol Propionate 0.5 MG/ML Topical Foam Clobetaso l Propionate 0.05 % Clobetasol Propionate 0.05 % 06/01/2021 12:00:00 AM EDT 1.0 {applicat ion} active Clobetasol Propionate 0.05 % eCW1 ([facility]) cefdinir 300 MG Oral Capsule Cefdinir 300 MG Cefdinir 300 MG 06/01/2021 12:00:00 AM EDT active Cefdinir 300 MG eCW1 ([facility]) Clobetasol Propionate 0.5 MG/ML Topical Foam Clobetaso l Propionate 0.05 % Clobetasol Propionate 0.05 % 06/01/2021 12:00:00 AM EDT 1.0 {applicat ion} active Clobetasol Propionate 0.05 % eCW1 ([facility]) 8 HR Acetaminophen 650 MG Extended Release Oral Tablet Acetaminophen ER 650 MG Acetaminophen ER 650 MG 06/01/2021 12:00:00 AM EDT 1.0 {tablets_as_ needed} active Acetaminophen ER 650 MG e CW1 ([facility]) 8 HR Acetaminophen 650 MG Extended Release Oral Tablet Acetaminophen ER 650 MG Acetaminophen ER 650 MG 06/01/2021 12:00:00 AM EDT 1.0 {tablets_as_ needed} active Acetaminophen ER 650 MG e CW1 ([facility]) 8 HR Acetaminophen 650 MG Extended Release Oral Tablet Acetaminophen ER 650 MG Acetaminophen ER 650 MG 06/01/2021 12:00:00 AM EDT 1.0 {tablets_as_ needed} active Acetaminophen ER 650 MG e CW1 ([facility]) Clobetasol Propionate 0.5 MG/ML Topical Foam Clobetaso l Propionate 0.05 % Clobetasol Propionate 0.05 % 06/01/2021 12:00:00 AM EDT 1.0 {applicat ion} active Clobetasol Propionate 0.05 % eCW1 ([facility]) 8 HR Acetaminophen 650 MG Extended Release Oral Tablet Acetaminophen ER 650 MG Acetaminophen ER 650 MG 06/01/2021 12:00:00 AM EDT 1.0 {tablets_as_ needed} active Acetaminophen ER 650 MG e CW1 ([facility]) cefdinir 300 MG Oral Capsule Cefdinir 300 MG Cefdinir 300 MG 06/01/2021 12:00:00 AM EDT active Cefdinir 300 MG eCW1 ([facility]) 50 mg 05/27/2021 12:00:00 AM EDT tablet [...] traMADol HCl 50 MG eCW1 ([facility]) pregabalin 150 MG Oral Capsule [Lyrica] Lyrica 150 MG Lyrica 150 MG 05/26/2021 12:00:00 AM EDT 1.0 {capsule} active L yrica 150 MG eCW1 ([facility]) tramadol hydrochloride 50 MG Oral Tablet traMADol HCl 50 MG traMADol HCl 50 MG 05/26/2021 12:00:00 AM EDT active traMADol HCl 50 MG eCW1 ([facility]) pregabalin 150 MG Oral Capsule [Lyrica] Lyrica 150 MG Lyrica 150 MG 05/26/2021 12:00:00 AM EDT 1.0 {capsule} suspended Lyrica 150 MG eCW1 ([facility]) tramadol hydrochloride 50 MG Oral Tablet traMADol HCl 50 MG traMADol HCl 50 MG 05/26/2021 12:00:00 AM EDT active traMADol HCl 50 MG eCW1 ([facility]) pregabalin 150 MG Oral Capsule [Lyrica] Lyrica 150 MG Lyrica 150 MG 05/26/2021 12:00:00 AM EDT 1.0 {capsule} active L yrica 150 MG eCW1 ([facility]) tramadol hydrochloride 50 MG Oral Tablet traMADol HCl 50 MG traMADol HCl 50 MG 05/26/2021 12:00:00 AM EDT active traMADol HCl 50 MG eCW1 ([facility]) tramadol hydrochloride 50 MG Oral Tablet traMADol HCl 50 MG traMADol HCl 50 MG 05/26/2021 12:00:00 AM EDT active traMADol HCl 50 MG eCW1 ([facility]) pregabalin 150 MG Oral Capsule [Lyrica] Lyrica 150 MG Lyrica 150 MG 05/26/2021 12:00:00 AM EDT 1.0 {capsule} suspended Lyrica 150 MG eCW1 ([facility]) pregabalin 150 MG Oral Capsule [Lyrica] Lyrica 150 MG Lyrica 150 MG 05/26/2021 12:00:00 AM EDT 1.0 {capsule} suspended Lyrica 150 MG eCW1 ([facility]) pregabalin 150 MG Oral Capsule [Lyrica] Lyrica 150 MG Lyrica 150 MG 05/26/2021 12:00:00 AM EDT 1.0 {capsule} active L yrica 150 MG eCW1 ([facility]) pregabalin 150 MG Oral Capsule [Lyrica] Lyrica 150 MG Lyrica 150 MG 05/26/2021 12:00:00 AM EDT 1.0 {capsule} active L yrica 150 MG eCW1 ([facility]) pregabalin 150 MG Oral Capsule [Lyrica] Lyrica 150 MG Lyrica 150 MG 05/26/2021 12:00:00 AM EDT 1.0 {capsule} suspended Lyrica 150 MG eCW1 ([facility]) pregabalin 150 MG Oral Capsule [Lyrica] Lyrica 150 MG Lyrica 150 MG 05/26/2021 12:00:00 AM EDT 1.0 {capsule} suspended Lyrica 150 MG eCW1 ([facility]) pregabalin 150 MG Oral Capsule [Lyrica] Lyrica 150 MG Lyrica 150 MG 05/26/2021 12:00:00 AM EDT 1.0 {capsule} active L yrica 150 MG eCW1 ([facility]) pregabalin 150 MG Oral Capsule [Lyrica] Lyrica 150 MG Lyrica 150 MG 05/26/2021 12:00:00 AM EDT 1.0 {capsule} active L yrica 150 MG eCW1 ([facility]) pregabalin 150 MG Oral Capsule [Lyrica] Lyrica 150 MG Lyrica 150 MG 05/26/2021 12:00:00 AM EDT 1.0 {capsule} active L yrica 150 MG eCW1 ([facility]) tramadol hydrochloride 50 MG Oral Tablet traMADol HCl 50 MG traMADol HCl 50 MG 05/26/2021 12:00:00 AM EDT active traMADol HCl 50 MG eCW1 ([facility]) tramadol hydrochloride 50 MG Oral Tablet traMADol HCl 50 MG traMADol HCl 50 MG 05/26/2021 12:00:00 AM EDT active traMADol HCl 50 MG eCW1 ([facility]) tramadol hydrochloride 50 MG Oral Tablet traMADol HCl 50 MG traMADol HCl 50 MG 05/26/2021 12:00:00 AM EDT active traMADol HCl 50 MG eCW1 ([facility]) pregabalin 150 MG Oral Capsule [Lyrica] Lyrica 150 MG Lyrica 150 MG 05/26/2021 12:00:00 AM EDT 1.0 {capsule} active L yrica 150 MG eCW1 ([facility]) Cyclobenzaprine hydrochloride 10 MG Oral Tablet CYCLOBENZAPR [...] L yrica 150 MG eCW1 ([facility]) tramadol hydrochloride 50 MG Oral Tablet traMADol HCl 50 MG traMADol HCl 50 MG 05/26/2021 12:00:00 AM EDT active traMADol HCl 50 MG eCW1 ([facility]) tramadol hydrochloride 50 MG Oral Tablet traMADol HCl 50 MG traMADol HCl 50 MG 05/26/2021 12:00:00 AM EDT active traMADol HCl 50 MG eCW1 ([facility]) pregabalin 150 MG Oral Capsule [Lyrica] Lyrica 150 MG Lyrica 150 MG 05/26/2021 12:00:00 AM EDT 1.0 {capsule} active L yrica 150 MG eCW1 ([facility]) pregabalin 150 MG Oral Capsule [Lyrica] Lyrica 150 MG Lyrica 150 MG 05/26/2021 12:00:00 AM EDT 1.0 {capsule} suspended Lyrica 150 MG eCW1 ([facility]) pregabalin 150 MG Oral Capsule [Lyrica] Lyrica 150 MG Lyrica 150 MG 05/26/2021 12:00:00 AM EDT 1.0 {capsule} active L yrica 150 MG eCW1 ([facility]) pregabalin 150 MG Oral Capsule [Lyrica] Lyrica 150 MG Lyrica 150 MG 05/26/2021 12:00:00 AM EDT 1.0 {capsule} active L yrica 150 MG eCW1 ([facility]) 5 mg 05/26/2021 12:00:00 AM EDT tablet [...] L yrica 150 MG eCW1 ([facility]) tramadol hydrochloride 50 MG Oral Tablet traMADol HCl 50 MG traMADol HCl 50 MG 05/26/2021 12:00:00 AM EDT active traMADol HCl 50 MG eCW1 ([facility]) pregabalin 150 MG Oral Capsule [Lyrica] Lyrica 150 MG Lyrica 150 MG 05/26/2021 12:00:00 AM EDT 1.0 {capsule} active L yrica 150 MG eCW1 ([facility]) pregabalin 150 MG Oral Capsule [Lyrica] Lyrica 150 MG Lyrica 150 MG 05/26/2021 12:00:00 AM EDT 1.0 {capsule} suspended Lyrica 150 MG eCW1 ([facility]) 150 mg 05/26/2021 12:00:00 AM EDT capsule [...] L yrica 150 MG eCW1 ([facility]) pregabalin 150 MG Oral Capsule [Lyrica] Lyrica 150 MG Lyrica 150 MG 05/26/2021 12:00:00 AM EDT 1.0 {capsule} suspended Lyrica 150 MG eCW1 ([facility]) pregabalin 150 MG Oral Capsule [Lyrica] Lyrica 150 MG Lyrica 150 MG 05/26/2021 12:00:00 AM EDT 1.0 {capsule} suspended Lyrica 150 MG eCW1 ([facility]) duloxetine 20 MG Delayed Release Oral Capsule DULoxeti ne HCl 20 MG DULoxetine HCl 20 MG 05/17/2021 12:00:00 AM EDT 1.0 {capsule} a ctive DULoxetine HCl 20 MG eCW1 ([facility]) duloxetine 20 MG Delayed Release Oral Capsule DULoxeti ne HCl 20 MG DULoxetine HCl 20 MG 05/17/2021 12:00:00 AM EDT 1.0 {capsule} a ctive DULoxetine HCl 20 MG eCW1 ([facility]) duloxetine 20 MG Delayed Release Oral Capsule DULoxeti ne HCl 20 MG DULoxetine HCl 20 MG 05/17/2021 12:00:00 AM EDT 1.0 {capsule} a ctive DULoxetine HCl 20 MG eCW1 ([facility]) duloxetine 20 MG Delayed Release Oral Capsule DULoxeti ne HCl 20 MG DULoxetine HCl 20 MG 05/17/2021 12:00:00 AM EDT 1.0 {capsule} a ctive DULoxetine HCl 20 MG eCW1 ([facility]) duloxetine 20 MG Delayed Release Oral Capsule DULoxeti ne HCl 20 MG DULoxetine HCl 20 MG 05/17/2021 12:00:00 AM EDT 1.0 {capsule} a ctive DULoxetine HCl 20 MG eCW1 ([facility]) duloxetine 20 MG Delayed Release Oral Capsule DULoxeti ne HCl 20 MG DULoxetine HCl 20 MG 05/17/2021 12:00:00 AM EDT 1.0 {capsule} a ctive DULoxetine HCl 20 MG eCW1 ([facility]) duloxetine 20 MG Delayed Release Oral Capsule DULoxeti ne HCl 20 MG DULoxetine HCl 20 MG 05/17/2021 12:00:00 AM EDT 1.0 {capsule} a ctive DULoxetine HCl 20 MG eCW1 ([facility]) duloxetine 20 MG Delayed Release Oral Capsule DULoxeti ne HCl 20 MG DULoxetine HCl 20 MG 05/17/2021 12:00:00 AM EDT 1.0 {capsule} a ctive DULoxetine HCl 20 MG eCW1 ([facility]) duloxetine 20 MG Delayed Release Oral Capsule DULoxeti ne HCl 20 MG DULoxetine HCl 20 MG 05/17/2021 12:00:00 AM EDT 1.0 {capsule} a ctive DULoxetine HCl 20 MG eCW1 ([facility]) duloxetine 20 MG Delayed Release Oral Capsule DULoxeti ne HCl 20 MG DULoxetine HCl 20 MG 05/17/2021 12:00:00 AM EDT 1.0 {capsule} a ctive DULoxetine HCl 20 MG eCW1 ([facility]) duloxetine 20 MG Delayed Release Oral Capsule DULoxeti ne HCl 20 MG DULoxetine HCl 20 MG 05/17/2021 12:00:00 AM EDT 1.0 {capsule} a ctive DULoxetine HCl 20 MG eCW1 ([facility]) duloxetine 20 MG Delayed Release Oral Capsule DULoxeti ne HCl 20 MG DULoxetine HCl 20 MG 05/17/2021 12:00:00 AM EDT 1.0 {capsule} a ctive DULoxetine HCl 20 MG eCW1 ([facility]) duloxetine 20 MG Delayed Release Oral Capsule DULoxeti ne HCl 20 MG DULoxetine HCl 20 MG 05/17/2021 12:00:00 AM EDT 1.0 {capsule} a ctive DULoxetine HCl 20 MG eCW1 ([facility]) Atropine Sulfate 0.025 MG / Diphenoxylat e [...] active Diflucan 150 MG eCW1 ([facility]) Fluconazole 150 MG Oral Tablet [Diflucan] Diflucan 150 MG Di flucan 150 MG 03/22/2021 12:00:00 AM EDT 1.0 {tablet} active Diflucan 150 MG eCW1 ([facility]) 150 mg 03/22/2021 12:00:00 AM EDT tablet [...] active Diflucan 150 MG eCW1 ([facility]) Fluconazole 150 MG Oral Tablet [Diflucan] Diflucan 150 MG Di flucan 150 MG 03/22/2021 12:00:00 AM EDT 1.0 {tablet} active Diflucan 150 MG eCW1 ([facility]) 30 mg 03/22/2021 12:00:00 AM EDT capsule,delayed release (DR/EC) 30 TAKE ONE CAPSULE BY MOUTH EVERY DAY FOR PAIN TAKE ONE CAPSULE BY MOUTH EVERY DAY FOR PAIN SOLD: 03/22/[address] [facility] Fluconazole 150 MG Oral Tablet [Diflucan] Diflucan 150 MG Di flucan 150 MG 03/22/2021 12:00:00 AM EDT 1.0 {tablet} active Diflucan 150 MG eCW1 ([facility]) Fluconazole 150 MG Oral Tablet [Diflucan] Diflucan 150 MG Di flucan 150 MG 03/22/2021 12:00:00 AM EDT 1.0 {tablet} active Diflucan 150 MG eCW1 ([facility]) Cyclobenzaprine hydrochloride 10 MG Oral Tablet CYCLOBENZAPR INE HCL 03/22/2021 12:00:00 AM EDT tablet 90 TAKE ONE TABLET BY MOUTH THREE TIMES A DAY NEEDED FOR SPASMS AND PAIN TAKE ONE TABLET BY MOUTH THREE TIMES A D AY NEEDED FOR SPASMS AND PAIN SOLD: 03/22/[address] [facility] Fluconazole 150 MG Oral Tablet [Diflucan] Diflucan 150 MG Di flucan 150 MG 03/22/2021 12:00:00 AM EDT 1.0 {tablet} active Diflucan 150 MG eCW1 ([facility]) 150 mg 03/21/2021 12:00:00 AM EDT capsule [...] 1.0 {tablet} active Augmentin 500-125 MG eCW1 ([facility]) 30 mg 03/16/2021 12:00:00 AM EDT tablet [...] Pseudoephedrine HCl 30 MG eCW1 ([facility]) Pseudoephedrine Hydrochloride 30 MG Oral Tablet Pseudo ephedrine HCl 30 MG Pseudoephedrine HCl 30 MG 03/16/2021 12:00:00 AM EDT active Pseudoephedrine HCl 30 MG eCW1 ([facility]) Amoxicillin 500 MG / Clavulanate 125 MG [...] 1.0 {tablet} active Augmentin 500-125 MG eCW1 ([facility]) Pseudoephedrine Hydrochloride 30 MG Oral Tablet Pseudo ephedrine HCl 30 MG Pseudoephedrine HCl 30 MG 03/16/2021 12:00:00 AM EDT active Pseudoephedrine HCl 30 MG eCW1 ([facility]) Pseudoephedrine Hydrochloride 30 MG Oral Tablet Pseudo ephedrine HCl 30 MG Pseudoephedrine HCl 30 MG 03/16/2021 12:00:00 AM EDT active Pseudoephedrine HCl 30 MG eCW1 ([facility]) Pseudoephedrine Hydrochloride 30 MG Oral Tablet Pseudo ephedrine HCl 30 MG Pseudoephedrine HCl 30 MG 03/16/2021 12:00:00 AM EDT active Pseudoephedrine HCl 30 MG eCW1 ([facility]) Pseudoephedrine Hydrochloride 30 MG Oral Tablet Pseudo ephedrine HCl 30 MG Pseudoephedrine HCl 30 MG 03/16/2021 12:00:00 AM EDT active Pseudoephedrine HCl 30 MG eCW1 ([facility]) Amoxicillin 500 MG / Clavulanate 125 MG Oral Tablet [Augmentin] Augmentin 500- 125 MG Augmentin 500-125 MG 03/16/2021 12:00:00 AM EDT 1.0 {tablet} active Augmentin 500-125 MG eCW1 ([facility]) 80 mg 03/16/2021 12:00:00 AM EDT tablet,chewable 90 TAKE 1 TABLET BY MOUTH AFTER MEALS FOR GAS/ BLOATING NEEDED UP TO 3 TIMES DAILY TAKE 1 TABLET BY MOUTH AFTER MEALS FOR GAS/ BLOATING NEEDED UP TO 3 TIMES DAILY SOLD: 03/16/2021 [facility] Pseudoephedrine Hydrochloride 30 MG Oral Tablet Pseudo ephedrine HCl 30 MG Pseudoephedrine HCl 30 MG 03/16/2021 12:00:00 AM EDT active Pseudoephedrine HCl 30 MG eCW1 ([facility]) Pseudoephedrine Hydrochloride 30 MG Oral Tablet Pseudo ephedrine HCl 30 MG Pseudoephedrine HCl 30 MG 03/16/2021 12:00:00 AM EDT active Pseudoephedrine HCl 30 MG eCW1 ([facility]) 80 mg 03/16/2021 12:00:00 AM EDT tablet,chewable [...] Pseudoephedrine HCl 30 MG eCW1 ([facility]) Amoxicillin 500 MG / Clavulanate 125 MG Oral Tablet [Augmentin] Augmentin 500- 125 MG Augmentin 500-125 MG 03/16/2021 12:00:00 AM EDT 1.0 {tablet} active Augmentin 500-125 MG eCW1 ([facility]) Amoxicillin 500 MG / Clavulanate 125 MG Oral Tablet [Augmentin] Augmentin 500- 125 MG Augmentin 500-125 MG 03/16/2021 12:00:00 AM EDT 1.0 {tablet} active Augmentin 500-125 MG eCW1 ([facility]) Pseudoephedrine Hydrochloride 30 MG Oral Tablet Pseudo ephedrine HCl 30 MG Pseudoephedrine HCl 30 MG 03/16/2021 12:00:00 AM EDT active Pseudoephedrine HCl 30 MG eCW1 ([facility]) Amoxicillin 500 MG / Clavulanate 125 MG Oral Tablet [Augmentin] Augmentin 500- 125 MG Augmentin 500-125 MG 03/16/2021 12:00:00 AM EDT 1.0 {tablet} active Augmentin 500-125 MG eCW1 ([facility]) Pseudoephedrine Hydrochloride 30 MG Oral Tablet Pseudo ephedrine HCl 30 MG Pseudoephedrine HCl 30 MG 03/16/2021 12:00:00 AM EDT active Pseudoephedrine HCl 30 MG eCW1 ([facility]) Pseudoephedrine Hydrochloride 30 MG Oral Tablet Pseudo ephedrine HCl 30 MG Pseudoephedrine HCl 30 MG 03/16/2021 12:00:00 AM EDT active Pseudoephedrine HCl 30 MG eCW1 ([facility]) Pseudoephedrine Hydrochloride 30 MG Oral Tablet Pseudo ephedrine HCl 30 MG Pseudoephedrine HCl 30 MG 03/16/2021 12:00:00 AM EDT active Pseudoephedrine HCl 30 MG eCW1 ([facility]) Pseudoephedrine Hydrochloride 30 MG Oral Tablet Pseudo ephedrine HCl 30 MG Pseudoephedrine HCl 30 MG 03/16/2021 12:00:00 AM EDT active Pseudoephedrine HCl 30 MG eCW1 ([facility]) Atropine Sulfate 0.025 MG / Diphenoxylat e Hydrochloride 2.5 MG Oral Tablet 2.5- 0.025 mg DIPHENOXYLATE HCL/ATROPINE 03/16/2021 12:00:00 AM EDT tablet 60 TAKE 1 TABLET BY MOUTH UP TO TWICE DAILY FOR DIARRHEA MAXIMUM DAILY DOSE = 2 TABLETS TAKE 1 TABLET BY MOUTH UP TO TWICE DAILY FOR DIARRHEA MAXIMUM DAILY DOSE = 2 TABLETS SOLD: 03/16/2021 [facility] 55 mcg 03/16/2021 12:00:00 AM EDT aerosol,spray 16 SPRAY 1 SPRAY IN EACH NOSTRIL ONCE A DAY SPRAY 1 SPRAY IN EACH NOSTRIL ONCE A DAY SOLD: 03/16/2021 [employer] Pseudoephedrine Hydrochloride 30 MG Oral Tablet Pseudo ephedrine HCl 30 MG Pseudoephedrine HCl 30 MG 03/16/2021 12:00:00 AM EDT active Pseudoephedrine HCl 30 MG eCW1 ([facility]) Amoxicillin 500 MG / Clavulanate 125 MG Oral Tablet [Augmentin] Augmentin 500- 125 MG Augmentin 500-125 MG 03/16/2021 12:00:00 AM EDT 1.0 {tablet} active Augmentin 500-125 MG eCW1 ([facility]) Amoxicillin 500 MG / Clavulanate 125 MG Oral Tablet [Augmentin] Augmentin 500- 125 MG Augmentin 500-125 MG 03/16/2021 12:00:00 AM EDT 1.0 {tablet} active Augmentin 500-125 MG eCW1 ([facility]) Amoxicillin 500 MG / Clavulanate 125 MG Oral Tablet [Augmentin] Augmentin 500- 125 MG Augmentin 500-125 MG 03/16/2021 12:00:00 AM EDT 1.0 {tablet} active Augmentin 500-125 MG eCW1 ([facility]) Pseudoephedrine Hydrochloride 30 MG Oral Tablet Pseudo ephedrine HCl 30 MG Pseudoephedrine HCl 30 MG 03/16/2021 12:00:00 AM EDT active Pseudoephedrine HCl 30 MG eCW1 ([facility]) Pseudoephedrine Hydrochloride 30 MG Oral Tablet Pseudo ephedrine HCl 30 MG Pseudoephedrine HCl 30 MG 03/16/2021 12:00:00 AM EDT active Pseudoephedrine HCl 30 MG eCW1 ([facility]) Pseudoephedrine Hydrochloride 30 MG Oral Tablet Pseudo ephedrine HCl 30 MG Pseudoephedrine HCl 30 MG 03/16/2021 12:00:00 AM EDT active Pseudoephedrine HCl 30 MG eCW1 ([facility]) 80 mg 03/16/2021 12:00:00 AM EDT tablet,chewable [...] Pseudoephedrine HCl 30 MG eCW1 ([facility]) Pseudoephedrine Hydrochloride 30 MG Oral Tablet Pseudo ephedrine HCl 30 MG Pseudoephedrine HCl 30 MG 03/16/2021 12:00:00 AM EDT active Pseudoephedrine HCl 30 MG eCW1 ([facility]) Pseudoephedrine Hydrochloride 30 MG Oral Tablet Pseudo ephedrine HCl 30 MG Pseudoephedrine HCl 30 MG 03/16/2021 12:00:00 AM EDT active Pseudoephedrine HCl 30 MG eCW1 ([facility]) Pseudoephedrine Hydrochloride 30 MG Oral Tablet Pseudo ephedrine HCl 30 MG Pseudoephedrine HCl 30 MG 03/16/2021 12:00:00 AM EDT active Pseudoephedrine HCl 30 MG eCW1 ([facility]) Wrist Splint/Cock-Up/Right Sm - Wrist Splint/Cock-Up/Right S - 03/11/2021 12:00:00 AM EDT active Wrist Sp lint/Cock-Up/Right Sm - eCW1 ([facility]) Wrist Splint/Cock-Up/Right Sm - Wrist Splint/Cock-Up/Right S m - 03/11/2021 12:00:00 AM EDT active Wrist Sp lint/Cock-Up/Right Sm - eCW1 ([facility]) Wrist Splint/Cock-Up/Left Sm - Wrist Splint/Cock-Up/Left Sm - 03/11/2021 12:00:00 AM EDT active Wrist Sp lint/Cock-Up/Left Sm - eCW1 ([facility]) Wrist Splint/Cock-Up/Left Sm - Wrist Splint/Cock-Up/Left Sm - 03/11/2021 12:00:00 AM EDT active Wrist Sp lint/Cock-Up/Left Sm - eCW1 ([facility]) Wrist Splint/Cock-Up/Right Sm - Wrist Splint/Cock-Up/Right S - 03/11/2021 12:00:00 AM EDT active Wrist Sp lint/Cock-Up/Right Sm - eCW1 ([facility]) Wrist Splint/Cock-Up/Right Sm - Wrist Splint/Cock-Up/Right S 03/11/2021 12:00:00 AM EDT active Wrist Sp lint/Cock-Up/Right Sm - eCW1 ([facility]) Wrist Splint/Cock-Up/Left Sm - Wrist Splint/Cock-Up/Left Sm - 03/11/2021 12:00:00 AM EDT active Wrist Sp lint/Cock-Up/Left Sm - eCW1 ([facility]) Wrist Splint/Cock-Up/Left Sm - Wrist Splint/Cock-Up/Left Sm - 03/11/2021 12:00:00 AM EDT active Wrist Sp lint/Cock-Up/Left Sm - eCW1 ([facility]) Wrist Splint/Cock-Up/Left Sm - Wrist Splint/Cock-Up/Left Sm - 03/11/2021 12:00:00 AM EDT active Wrist Sp lint/Cock-Up/Left Sm - eCW1 ([facility]) Wrist Splint/Cock-Up/Right Sm - Wrist Splint/Cock-Up/Right S - 03/11/2021 12:00:00 AM EDT active Wrist Sp lint/Cock-Up/Right Sm - eCW1 ([facility]) Wrist Splint/Cock-Up/Left Sm - Wrist Splint/Cock-Up/Left Sm - 03/11/2021 12:00:00 AM EDT active Wrist Sp lint/Cock-Up/Left Sm - eCW1 ([facility]) Wrist Splint/Cock-Up/Right Sm - Wrist Splint/Cock-Up/Right S - 03/11/2021 12:00:00 AM EDT active Wrist Sp lint/Cock-Up/Right Sm - eCW1 ([facility]) Wrist Splint/Cock-Up/Left Sm - Wrist Splint/Cock-Up/Left Sm - 03/11/2021 12:00:00 AM EDT active Wrist Sp lint/Cock-Up/Left Sm - eCW1 ([facility]) Wrist Splint/Cock-Up/Right Sm - Wrist Splint/Cock-Up/Right S - 03/11/2021 12:00:00 AM EDT active Wrist Sp lint/Cock-Up/Right Sm - eCW1 ([facility]) Wrist Splint/Cock-Up/Right Sm - Wrist Splint/Cock-Up/Right S 03/11/2021 12:00:00 AM EDT active Wrist Sp lint/Cock-Up/Right Sm - eCW1 ([facility]) Wrist Splint/Cock-Up/Right Sm - Wrist Splint/Cock-Up/Right S - 03/11/2021 12:00:00 AM EDT active Wrist Sp lint/Cock-Up/Right Sm - eCW1 ([facility]) Wrist Splint/Cock-Up/Left Sm - Wrist Splint/Cock-Up/Left Sm - 03/11/2021 12:00:00 AM EDT active Wrist Sp lint/Cock-Up/Left Sm - eCW1 ([facility]) Wrist Splint/Cock-Up/Left Sm - Wrist Splint/Cock-Up/Left Sm - 03/11/2021 12:00:00 AM EDT active Wrist Sp lint/Cock-Up/Left Sm - eCW1 ([facility]) Wrist Splint/Cock-Up/Right Sm - Wrist Splint/Cock-Up/Right S - 03/11/2021 12:00:00 AM EDT active Wrist Sp lint/Cock-Up/Right Sm - eCW1 ([facility]) Wrist Splint/Cock-Up/Right Sm - Wrist Splint/Cock-Up/Right S - 03/11/2021 12:00:00 AM EDT active Wrist Sp lint/Cock-Up/Right Sm - eCW1 ([facility]) Wrist Splint/Cock-Up/Right Sm - Wrist Splint/Cock-Up/Right S m - 03/11/2021 12:00:00 AM EDT active Wrist Sp lint/Cock-Up/Right Sm - eCW1 ([facility]) Wrist Splint/Cock-Up/Left Sm - Wrist Splint/Cock-Up/Left Sm - 03/11/2021 12:00:00 AM EDT active Wrist Sp lint/Cock-Up/Left Sm - eCW1 ([facility]) Wrist Splint/Cock-Up/Right Sm - Wrist Splint/Cock-Up/Right S - 03/11/2021 12:00:00 AM EDT active Wrist Sp lint/Cock-Up/Right Sm - eCW1 ([facility]) Wrist Splint/Cock-Up/Left Sm - Wrist Splint/Cock-Up/Left Sm - 03/11/2021 12:00:00 AM EDT active Wrist Sp lint/Cock-Up/Left Sm - eCW1 ([facility]) Wrist Splint/Cock-Up/Right Sm - Wrist Splint/Cock-Up/Right S m - 03/11/2021 12:00:00 AM EDT active Wrist Sp lint/Cock-Up/Right Sm - eCW1 ([facility]) Wrist Splint/Cock-Up/Left Sm - Wrist Splint/Cock-Up/Left Sm - 03/11/2021 12:00:00 AM EDT active Wrist Sp lint/Cock-Up/Left Sm - eCW1 ([facility]) Wrist Splint/Cock-Up/Left Sm - Wrist Splint/Cock-Up/Left Sm - 03/11/2021 12:00:00 AM EDT active Wrist Sp lint/Cock-Up/Left Sm - eCW1 ([facility]) Wrist Splint/Cock-Up/Left Sm - Wrist Splint/Cock-Up/Left Sm - 03/11/2021 12:00:00 AM EDT active Wrist Sp lint/Cock-Up/Left Sm - eCW1 ([facility]) Wrist Splint/Cock-Up/Right Sm - Wrist Splint/Cock-Up/Right S 03/11/2021 12:00:00 AM EDT active Wrist Sp lint/Cock-Up/Right Sm - eCW1 ([facility]) Wrist Splint/Cock-Up/Left Sm - Wrist Splint/Cock-Up/Left Sm - 03/11/2021 12:00:00 AM EDT active Wrist Sp lint/Cock-Up/Left Sm - eCW1 ([facility]) Wrist Splint/Cock-Up/Left Sm - Wrist Splint/Cock-Up/Left Sm - 03/11/2021 12:00:00 AM EDT active Wrist Sp lint/Cock-Up/Left Sm - eCW1 ([facility]) Wrist Splint/Cock-Up/Right Sm - Wrist Splint/Cock-Up/Right S 03/11/2021 12:00:00 AM EDT active Wrist Sp lint/Cock-Up/Right Sm - eCW1 ([facility]) Wrist Splint/Cock-Up/Left Sm - Wrist Splint/Cock-Up/Left Sm - 03/11/2021 12:00:00 AM EDT active Wrist Sp lint/Cock-Up/Left Sm - eCW1 ([facility]) Wrist Splint/Cock-Up/Right Sm - Wrist Splint/Cock-Up/Right S 03/11/2021 12:00:00 AM EDT active Wrist Sp lint/Cock-Up/Right Sm - eCW1 ([facility]) Wrist Splint/Cock-Up/Right Sm - Wrist Splint/Cock-Up/Right S 03/11/2021 12:00:00 AM EDT active Wrist Sp lint/Cock-Up/Right Sm - eCW1 ([facility]) Wrist Splint/Cock-Up/Right Sm - Wrist Splint/Cock-Up/Right S 03/11/2021 12:00:00 AM EDT active Wrist Sp lint/Cock-Up/Right Sm - eCW1 ([facility]) Wrist Splint/Cock-Up/Left Sm - Wrist Splint/Cock-Up/Left Sm - 03/11/2021 12:00:00 AM EDT active Wrist Sp lint/Cock-Up/Left Sm - eCW1 ([facility]) Wrist Splint/Cock-Up/Right Sm - Wrist Splint/Cock-Up/Right S - 03/11/2021 12:00:00 AM EDT active Wrist Sp lint/Cock-Up/Right Sm - eCW1 ([facility]) Wrist Splint/Cock-Up/Left Sm - Wrist Splint/Cock-Up/Left Sm - 03/11/2021 12:00:00 AM EDT active Wrist Sp lint/Cock-Up/Left Sm - eCW1 ([facility]) Wrist Splint/Cock-Up/Left Sm - Wrist Splint/Cock-Up/Left Sm - 03/11/2021 12:00:00 AM EDT active Wrist Sp lint/Cock-Up/Left Sm - eCW1 ([facility]) Wrist Splint/Cock-Up/Left Sm - Wrist Splint/Cock-Up/Left Sm - 03/11/2021 12:00:00 AM EDT active Wrist Sp lint/Cock-Up/Left Sm - eCW1 ([facility]) Wrist Splint/Cock-Up/Left Sm - Wrist Splint/Cock-Up/Left Sm - 03/11/2021 12:00:00 AM EDT active Wrist Sp lint/Cock-Up/Left Sm - eCW1 ([facility]) Wrist Splint/Cock-Up/Right Sm - Wrist Splint/Cock-Up/Right S - 03/11/2021 12:00:00 AM EDT active Wrist Sp lint/Cock-Up/Right Sm - eCW1 ([facility]) Wrist Splint/Cock-Up/Right Sm - Wrist Splint/Cock-Up/Right S m - 03/11/2021 12:00:00 AM EDT active Wrist Sp lint/Cock-Up/Right Sm - eCW1 ([facility]) 40 mg 03/04/2021 12:00:00 AM EDT tablet [...] 12:00:00 A M EDT ORAL active MEDENT ([facility], ) 30 mg 02/17/2021 12:00:00 AM EDT [...] buPROPion HCl 75 MG eCW1 ([facility]) Bupropion Hydrochloride 75 MG Oral Tablet buPROPion HC l 75 MG buPROPion HCl 75 MG 02/15/2021 12:00:00 AM EDT 1.0 {tablet} activ e buPROPion HCl 75 MG eCW1 ([facility]) Bupropion Hydrochloride 75 MG Oral Tablet buPROPion HC l 75 MG buPROPion HCl 75 MG 02/15/2021 12:00:00 AM EDT 1.0 {tablet} activ e buPROPion HCl 75 MG eCW1 ([facility]) Bupropion Hydrochloride 75 MG Oral Tablet buPROPion HC l 75 MG buPROPion HCl 75 MG 02/15/2021 12:00:00 AM EDT 1.0 {tablet} activ e buPROPion HCl 75 MG eCW1 ([facility]) Bupropion Hydrochloride 75 MG Oral Tablet buPROPion HC l 75 MG buPROPion HCl 75 MG 02/15/2021 12:00:00 AM EDT 1.0 {tablet} activ e buPROPion HCl 75 MG eCW1 ([facility]) Bupropion Hydrochloride 75 MG Oral Tablet buPROPion HC l 75 MG buPROPion HCl 75 MG 02/15/2021 12:00:00 AM EDT 1.0 {tablet} activ e buPROPion HCl 75 MG eCW1 ([facility]) Bupropion Hydrochloride 75 MG Oral Tablet buPROPion HC l 75 MG buPROPion HCl 75 MG 02/15/2021 12:00:00 AM EDT 1.0 {tablet} activ e buPROPion HCl 75 MG eCW1 ([facility]) Bupropion Hydrochloride 75 MG Oral Tablet buPROPion HC l 75 MG buPROPion HCl 75 MG 02/15/2021 12:00:00 AM EDT 1.0 {tablet} activ e buPROPion HCl 75 MG eCW1 ([facility]) Bupropion Hydrochloride 75 MG Oral Tablet buPROPion HC l 75 MG buPROPion HCl 75 MG 02/15/2021 12:00:00 AM EDT 1.0 {tablet} activ e buPROPion HCl 75 MG eCW1 ([facility]) Bupropion Hydrochloride 75 MG Oral Tablet buPROPion HC l 75 MG buPROPion HCl 75 MG 02/15/2021 12:00:00 AM EDT 1.0 {tablet} activ e buPROPion HCl 75 MG eCW1 ([facility]) Bupropion Hydrochloride 75 MG Oral Tablet buPROPion HC l 75 MG buPROPion HCl 75 MG 02/15/2021 12:00:00 AM EDT 1.0 {tablet} activ e buPROPion HCl 75 MG eCW1 ([facility]) Bupropion Hydrochloride 75 MG Oral Tablet buPROPion HC l 75 MG buPROPion HCl 75 MG 02/15/2021 12:00:00 AM EDT 1.0 {tablet} activ e buPROPion HCl 75 MG eCW1 ([facility]) Bupropion Hydrochloride 75 MG Oral Tablet buPROPion HC l 75 MG buPROPion HCl 75 MG 02/15/2021 12:00:00 AM EDT 1.0 {tablet} activ e buPROPion HCl 75 MG eCW1 ([facility]) Bupropion Hydrochloride 75 MG Oral Tablet buPROPion HC l 75 MG buPROPion HCl 75 MG 02/15/2021 12:00:00 AM EDT 1.0 {tablet} activ e buPROPion HCl 75 MG eCW1 ([facility]) Bupropion Hydrochloride 75 MG Oral Tablet buPROPion HC l 75 MG buPROPion HCl 75 MG 02/15/2021 12:00:00 AM EDT 1.0 {tablet} activ e buPROPion HCl 75 MG eCW1 ([facility]) Bupropion Hydrochloride 75 MG Oral Tablet buPROPion HC l 75 MG buPROPion HCl 75 MG 02/15/2021 12:00:00 AM EDT 1.0 {tablet} activ e buPROPion HCl 75 MG eCW1 ([facility]) Bupropion Hydrochloride 75 MG Oral Tablet buPROPion HC l 75 MG buPROPion HCl 75 MG 02/15/2021 12:00:00 AM EDT 1.0 {tablet} activ e buPROPion HCl 75 MG eCW1 ([facility]) Bupropion Hydrochloride 75 MG Oral Tablet buPROPion HC l 75 MG buPROPion HCl 75 MG 02/15/2021 12:00:00 AM EDT 1.0 {tablet} activ e buPROPion HCl 75 MG eCW1 ([facility]) Bupropion Hydrochloride 75 MG Oral Tablet buPROPion HC l 75 MG buPROPion HCl 75 MG 02/15/2021 12:00:00 AM EDT 1.0 {tablet} activ e buPROPion HCl 75 MG eCW1 ([facility]) Bupropion Hydrochloride 75 MG Oral Tablet buPROPion HC l 75 MG buPROPion HCl 75 MG 02/15/2021 12:00:00 AM EDT 1.0 {tablet} activ e buPROPion HCl 75 MG eCW1 ([facility]) Bupropion Hydrochloride 75 MG Oral Tablet buPROPion HC l 75 MG buPROPion HCl 75 MG 02/15/2021 12:00:00 AM EDT 1.0 {tablet} activ e buPROPion HCl 75 MG eCW1 ([facility]) Bupropion Hydrochloride 75 MG Oral Tablet buPROPion HC l 75 MG buPROPion HCl 75 MG 02/15/2021 12:00:00 AM EDT 1.0 {tablet} activ e buPROPion HCl 75 MG eCW1 ([facility]) Bupropion Hydrochloride 75 MG Oral Tablet buPROPion HC l 75 MG buPROPion HCl 75 MG 02/15/2021 12:00:00 AM EDT 1.0 {tablet} activ e buPROPion HCl 75 MG eCW1 ([facility]) Bupropion Hydrochloride 75 MG Oral Tablet buPROPion HC l 75 MG buPROPion HCl 75 MG 02/15/2021 12:00:00 AM EDT 1.0 {tablet} activ e buPROPion HCl 75 MG eCW1 ([facility]) Bupropion Hydrochloride 75 MG Oral Tablet buPROPion HC l 75 MG buPROPion HCl 75 MG 02/15/2021 12:00:00 AM EDT 1.0 {tablet} activ e buPROPion HCl 75 MG eCW1 ([facility]) Bupropion Hydrochloride 75 MG Oral Tablet buPROPion HC l 75 MG buPROPion HCl 75 MG 02/15/2021 12:00:00 AM EDT 1.0 {tablet} activ e buPROPion HCl 75 MG eCW1 ([facility]) Bupropion Hydrochloride 75 MG Oral Tablet buPROPion HC l 75 MG buPROPion HCl 75 MG 02/15/2021 12:00:00 AM EDT 1.0 {tablet} activ e buPROPion HCl 75 MG eCW1 ([facility]) Bupropion Hydrochloride 75 MG Oral Tablet buPROPion HC l 75 MG buPROPion HCl 75 MG 02/15/2021 12:00:00 AM EDT 1.0 {tablet} activ e buPROPion HCl 75 MG eCW1 ([facility]) cefdinir 300 MG Oral Capsule Cefdinir 300 MG Cefdinir 300 MG 02/09/2021 12:00:00 AM EDT suspended Cefdinir 300 MG eCW1 ([facility]) cefdinir 300 MG Oral Capsule Cefdinir 300 MG Cefdinir 300 MG 02/09/2021 12:00:00 AM EDT suspended Cefdinir 300 MG eCW1 ([facility]) cefdinir 300 MG Oral Capsule Cefdinir 300 MG Cefdinir 300 MG 02/09/2021 12:00:00 AM EDT suspended Cefdinir 300 MG eCW1 ([facility]) cefdinir 300 MG Oral Capsule Cefdinir 300 MG Cefdinir 300 MG 02/09/2021 12:00:00 AM EDT suspended Cefdinir 300 MG eCW1 ([facility]) cefdinir 300 MG Oral Capsule Cefdinir 300 MG Cefdinir 300 MG 02/09/2021 12:00:00 AM EDT active Cefdinir 300 MG eCW1 ([facility]) cefdinir 300 MG Oral Capsule Cefdinir 300 MG Cefdinir 300 MG 02/09/2021 12:00:00 AM EDT suspended Cefdinir 300 MG eCW1 ([facility]) 300 mg 02/09/2021 12:00:00 AM EDT capsule 60 TAKE ONE CAPSULE BY MOUTH TWICE A DAY DIRECTED TAKE ONE CAPSULE BY MOUTH TWICE A DAY DIRECTED SOLD : 02/09/[address] [employer] cefdinir 300 MG Oral Capsule Cefdinir 300 MG Cefdinir 300 MG 02/09/2021 12:00:00 AM EDT active Cefdinir 300 MG eCW1 ([facility]) cefdinir 300 MG Oral Capsule Cefdinir 300 MG Cefdinir 300 MG 02/09/2021 12:00:00 AM EDT suspended Cefdinir 300 MG eCW1 ([facility]) cefdinir 300 MG Oral Capsule Cefdinir 300 MG Cefdinir 300 MG 02/09/2021 12:00:00 AM EDT active Cefdinir 300 MG eCW1 ([facility]) Cyclobenzaprine hydrochloride 10 MG Oral Tablet CYCLOBENZAPR [...] active Cefdinir 300 MG eCW1 ([facility]) cefdinir 300 MG Oral Capsule Cefdinir 300 MG Cefdinir 300 MG 02/09/2021 12:00:00 AM EDT active Cefdinir 300 MG eCW1 ([facility]) cefdinir 300 MG Oral Capsule Cefdinir 300 MG Cefdinir 300 MG 02/09/2021 12:00:00 AM EDT suspended Cefdinir 300 MG eCW1 ([facility]) cefdinir 300 MG Oral Capsule Cefdinir 300 MG Cefdinir 300 MG 02/09/2021 12:00:00 AM EDT suspended Cefdinir 300 MG eCW1 ([facility]) cefdinir 300 MG Oral Capsule Cefdinir 300 MG Cefdinir 300 MG 02/09/2021 12:00:00 AM EDT active Cefdinir 300 MG eCW1 ([facility]) cefdinir 300 MG Oral Capsule Cefdinir 300 MG Cefdinir 300 MG 02/09/2021 12:00:00 AM EDT suspended Cefdinir 300 MG eCW1 ([facility]) Atropine Sulfate 0.025 MG / Diphenoxylat e [...] active Cefdinir 300 MG eCW1 ([facility]) cefdinir 300 MG Oral Capsule Cefdinir 300 MG Cefdinir 300 MG 02/09/2021 12:00:00 AM EDT suspended Cefdinir 300 MG eCW1 ([facility]) krill oil 300 MG Oral Capsule Krill Oil 02/01/2021 12:00:00 AM EDT ORAL active MEDENT ([facility]) Fluocinonide 0.5 MG/ML Topical Cream Fluocinonide 02/01/2021 12:00: 00 AM EDT active MEDENT ([facility]) Simethicone 80 MG Chewable Tablet [Mi-Acid Gas Relief] WI-Ac id Gas Relief 02/01/2021 12:00:00 AM EDT ORAL active MEDENT ([facility]) Atropine Sulfate 0.025 MG / Diphenoxylate Hydrochlorid e 2.5 MG Oral Tablet Diphenoxylate-Atropine 02/01/2021 12:00:00 AM EDT ORAL active MEDENT ([facility]) Lutein 20 MG Oral Tablet Lutein 02/01/2021 12:00:00 AM EDT ORAL active MEDENT [facility] Cholecalciferol 5000 UNT Oral Tablet Vitamin D-3 02/01/2021 12:00:00 AM EDT ORAL active MEDENT ([facility]) Vitamin B Complex 02/01/2021 12:00:00 AM EDT ORAL active MEDENT ([facility]) Vitamin B 12 0.1 MG Oral Tablet Vitamin B12 02/01/2021 12:00:00 AM EDT ORAL active MEDENT ([facility]) Pimecrolimus 10 MG/ML Topical Cream Pimecrolimus 02/01/2021 12:00:00 AM EDT active MEDENT ([facility]) Fluocinolone Acetonide 0.1 MG/ML Topical Oil Fluocinolone Ac etonide Scalp 02/01/2021 12:00:00 AM EDT active MEDENT ([facility]) Fluticasone Propionate/Salmeterol Fluticasone Propionate/Francisco Javier meterol 02/01/2021 12:00:00 AM EDT ORAL active M EDENT ([facility]) duloxetine 20 MG Delayed Release Oral Capsule Duloxetine HCL 02/01/2021 12:00:00 AM EDT ORAL active MEDENT ([facility]) Acyclovir 400 MG Oral Tablet Acyclovir 02/01/2021 12:00:00 AM EDT ORAL active MEDENT ([facility]) Estradiol 0.1 MG/ML Vaginal Cream [Estrace] Estrace 01/09 12:00:00 AM EDT active MEDENT ( [facility]) Estradiol 1 MG Oral Tablet Estradiol 02/01/2021 12:00:00 AM EDT ORAL active MEDENT ([facility]) Ketotifen 0.25 MG/ML Ophthalmic Solution Ketotifen Fumarate 02/01/2021 12:00:00 AM EDT active MEDENT ([facility]) Triamcinolone Acetonide Triamcinolone Acetonide 02/01/2021 12:00:00 A M EDT RESPIRATORY active MEDENT ( [facility]) Furosemide 40 MG Oral Tablet [Lasix] Lasix 02/01/2021 12:00:00 AM EDT active [facility]ENT ([facility]) pantoprazole 40 MG Delayed Release Oral Tablet Pantoprazole Sodium 02/01/2021 12:00:00 AM EDT ORAL active M EDENT ([facility]) Cholestyramine Resin 66.7 MG/ML Oral Suspension Cholestyrami ne 02/01/2021 12:00:00 AM EDT active M EDENT ([facility]) 40 mg 01/25/2021 12:00:00 AM EDT tablet [...] Atorvastatin Calcium 20 MG eCW1 ([facility]) Aspirin 81 MG Delayed Release Oral Tablet Aspirin 81 MG 01/05/2021 12:00:00 AM EDT 1.0 {tablet} active Aspirin 81 MG eCW1 ([facility]) Aspirin 81 MG Delayed Release Oral Tablet Aspirin 81 MG 01/05/2021 12:00:00 AM EDT 1.0 {tablet} active Aspirin 81 MG eCW1 ([facility]) Aspirin 81 MG Delayed Release Oral Tablet Aspirin 81 MG 01/05/2021 12:00:00 AM EDT 1.0 {tablet} active Aspirin 81 MG eCW1 ([facility]) Aspirin 81 MG Delayed Release Oral Tablet Aspirin 81 MG 01/05/2021 12:00:00 AM EDT 1.0 {tablet} active Aspirin 81 MG eCW1 ([facility]) atorvastatin 20 MG Oral Tablet Atorvastatin Calcium 20 MG Atorvastatin Calcium 20 MG 01/05/2021 12:00:00 AM EDT 1.0 {tablet} activ e Atorvastatin Calcium 20 MG eCW1 ([facility]) Aspirin 81 MG Delayed Release Oral Tablet Aspirin 81 MG 01/05/2021 12:00:00 AM EDT 1.0 {tablet} active Aspirin 81 MG eCW1 ([facility]) Aspirin 81 MG Delayed Release Oral Tablet Aspirin 81 MG 01/05/2021 12:00:00 AM EDT 1.0 {tablet} active Aspirin 81 MG eCW1 ([facility]) atorvastatin 20 MG Oral Tablet Atorvastatin Calcium 20 MG Atorvastatin Calcium 20 MG 01/05/2021 12:00:00 AM EDT 1.0 {tablet} activ e Atorvastatin Calcium 20 MG eCW1 ([facility]) Aspirin 81 MG Delayed Release Oral Tablet Aspirin 81 MG 01/05/2021 12:00:00 AM EDT 1.0 {tablet} active Aspirin 81 MG eCW1 ([facility]) Aspirin 81 MG Delayed Release Oral Tablet Aspirin 81 MG 01/05/2021 12:00:00 AM EDT 1.0 {tablet} active Aspirin 81 MG eCW1 ([facility]) Aspirin 81 MG Delayed Release Oral Tablet Aspirin 81 MG 01/05/2021 12:00:00 AM EDT 1.0 {tablet} active Aspirin 81 MG eCW1 ([facility]) 81 mg 01/05/2021 12:00:00 AM EDT tablet,delayed release (DR/EC) 30 TAKE ONE TABLET BY MOUTH EVERY DAY TAKE ONE TABLET BY MOUTH EVERY DAY SOLD: 02/03/2021 [employer] Aspirin 81 MG Delayed Release Oral Tablet Aspirin 81 MG 01/05/2021 12:00:00 AM EDT 1.0 {tablet} active Aspirin 81 MG eCW1 ([facility]) Aspirin 81 MG Delayed Release Oral Tablet Aspirin 81 MG 01/05/2021 12:00:00 AM EDT 1.0 {tablet} active Aspirin 81 MG eCW1 ([facility]) atorvastatin 20 MG Oral Tablet Atorvastatin Calcium 20 MG Atorvastatin Calcium 20 MG 01/05/2021 12:00:00 AM EDT 1.0 {tablet} activ e Atorvastatin Calcium 20 MG eCW1 ([facility]) Aspirin 81 MG Delayed Release Oral Tablet Aspirin 81 MG 01/05/2021 12:00:00 AM EDT 1.0 {tablet} active Aspirin 81 MG eCW1 ([facility]) atorvastatin 20 MG Oral Tablet Atorvastatin Calcium 20 MG Atorvastatin Calcium 20 MG 01/05/2021 12:00:00 AM EDT 1.0 {tablet} activ e Atorvastatin Calcium 20 MG eCW1 ([facility]) 81 mg 01/05/2021 12:00:00 AM EDT tablet,delayed release (DR/EC) 30 TAKE ONE TABLET BY MOUTH EVERY DAY TAKE ONE TABLET BY MOUTH EVERY DAY SOLD: 03/04/2021 [employer] atorvastatin 20 MG Oral Tablet Atorvastatin Calcium 20 MG Atorvastatin Calcium 20 MG 01/05/2021 12:00:00 AM EDT 1.0 {tablet} activ e Atorvastatin Calcium 20 MG eCW1 ([facility]) Aspirin 81 MG Delayed Release Oral Tablet Aspirin 81 MG 01/05/2021 12:00:00 AM EDT 1.0 {tablet} active Aspirin 81 MG eCW1 ([facility]) Aspirin 81 MG Delayed Release Oral Tablet Aspirin 81 MG 01/05/2021 12:00:00 AM EDT 1.0 {tablet} active Aspirin 81 MG eCW1 ([facility]) atorvastatin 20 MG Oral Tablet Atorvastatin Calcium 20 MG Atorvastatin Calcium 20 MG 01/05/2021 12:00:00 AM EDT 1.0 {tablet} activ e Atorvastatin Calcium 20 MG eCW1 ([facility]) 81 mg 01/05/2021 12:00:00 AM EDT tablet,delayed release (DR/EC) 30 TAKE ONE TABLET BY MOUTH EVERY DAY TAKE ONE TABLET BY MOUTH EVERY DAY SOLD: 03/25/2021 [facility] Aspirin 81 MG Delayed Release Oral Tablet Aspirin 81 MG 01/05/2021 12:00:00 AM EDT 1.0 {tablet} active Aspirin 81 MG eCW1 ([facility]) Aspirin 81 MG Delayed Release Oral Tablet Aspirin 81 MG 01/05/2021 12:00:00 AM EDT 1.0 {tablet} active Aspirin 81 MG eCW1 ([facility]) atorvastatin 20 MG Oral Tablet Atorvastatin Calcium 20 MG Atorvastatin Calcium 20 MG 01/05/2021 12:00:00 AM EDT 1.0 {tablet} activ e Atorvastatin Calcium 20 MG eCW1 ([facility]) 81 mg 01/05/2021 12:00:00 AM EDT tablet,delayed release (DR/EC) 30 TAKE ONE TABLET BY MOUTH EVERY DAY TAKE ONE TABLET BY MOUTH EVERY DAY SOLD: 04/29/2021 [facility] Simethicone 80 MG Chewable Tablet Simethicone 01/05/2021 12:00:00 AM E DT completed MEDENT ([facility], ) Aspirin 81 MG Delayed Release Oral Tablet Aspirin 81 MG 01/05/2021 12:00:00 AM EDT 1.0 {tablet} active Aspirin 81 MG eCW1 ([facility]) 0.01 % 01/05/2021 12:00:00 AM EDT solution 60 APPLY TWO TIMES A DAY FOR 14 DAYS APPLY TWO TIMES A DAY FOR 14 DAYS SOLD: 02/04/2021 [facility] Aspirin 81 MG Delayed Release Oral Tablet Aspirin 81 MG 01/05/2021 12:00:00 AM EDT 1.0 {tablet} active Aspirin 81 MG eCW1 ([facility]) atorvastatin 20 MG Oral Tablet Atorvastatin Calcium 20 MG Atorvastatin Calcium 20 MG 01/05/2021 12:00:00 AM EDT 1.0 {tablet} activ e Atorvastatin Calcium 20 MG eCW1 ([facility]) atorvastatin 20 MG Oral Tablet Atorvastatin Calcium 20 MG Atorvastatin Calcium 20 MG 01/05/2021 12:00:00 AM EDT 1.0 {tablet} activ e Atorvastatin Calcium 20 MG eCW1 ([facility]) atorvastatin 20 MG Oral Tablet Atorvastatin Calcium 20 MG Atorvastatin Calcium 20 MG 01/05/2021 12:00:00 AM EDT 1.0 {tablet} activ e Atorvastatin Calcium 20 MG eCW1 ([facility]) atorvastatin 20 MG Oral Tablet Atorvastatin Calcium 01/05/2021 1 2:00:00 AM EDT active MEDENT ( [facility]) atorvastatin 20 MG Oral Tablet Atorvastatin Calcium 20 MG Atorvastatin Calcium 20 MG 01/05/2021 12:00:00 AM EDT 1.0 {tablet} activ e Atorvastatin Calcium 20 MG eCW1 ([facility]) Aspirin 81 MG Delayed Release Oral Tablet Aspirin 01/05/2021 1 2:00:00 AM EDT active MEDENT ([facility]) Aspirin 81 MG Delayed Release Oral Tablet Aspirin 81 MG 01/05/2021 12:00:00 AM EDT 1.0 {tablet} active Aspirin 81 MG eCW1 ([facility]) Aspirin 81 MG Delayed Release Oral Tablet Aspirin 81 MG 01/05/2021 12:00:00 AM EDT 1.0 {tablet} active Aspirin 81 MG eCW1 ([facility]) atorvastatin 20 MG Oral Tablet ATORVASTATIN CALCIUM [...] Atorvastatin Calcium 20 MG eCW1 ([facility]) atorvastatin 20 MG Oral Tablet Atorvastatin Calcium 20 MG Atorvastatin Calcium 20 MG 01/05/2021 12:00:00 AM EDT 1.0 {tablet} activ e Atorvastatin Calcium 20 MG eCW1 ([facility]) atorvastatin 20 MG Oral Tablet Atorvastatin Calcium 20 MG Atorvastatin Calcium 20 MG 01/05/2021 12:00:00 AM EDT 1.0 {tablet} activ e Atorvastatin Calcium 20 MG eCW1 ([facility]) atorvastatin 20 MG Oral Tablet Atorvastatin Calcium 20 MG Atorvastatin Calcium 20 MG 01/05/2021 12:00:00 AM EDT 1.0 {tablet} activ e Atorvastatin Calcium 20 MG eCW1 ([facility]) Aspirin 81 MG Delayed Release Oral Tablet Aspirin 81 MG 01/05/2021 12:00:00 AM EDT 1.0 {tablet} active Aspirin 81 MG eCW1 ([facility]) atorvastatin 20 MG Oral Tablet Atorvastatin Calcium 20 MG Atorvastatin Calcium 20 MG 01/05/2021 12:00:00 AM EDT 1.0 {tablet} activ e Atorvastatin Calcium 20 MG eCW1 ([facility]) atorvastatin 20 MG Oral Tablet Atorvastatin Calcium 20 MG Atorvastatin Calcium 20 MG 01/05/2021 12:00:00 AM EDT 1.0 {tablet} activ e Atorvastatin Calcium 20 MG eCW1 ([facility]) atorvastatin 20 MG Oral Tablet Atorvastatin Calcium 20 MG Atorvastatin Calcium 20 MG 01/05/2021 12:00:00 AM EDT 1.0 {tablet} activ e Atorvastatin Calcium 20 MG eCW1 ([facility]) Aspirin 81 MG Delayed Release Oral Tablet Aspirin 81 MG 01/05/2021 12:00:00 AM EDT 1.0 {tablet} active Aspirin 81 MG eCW1 ([facility]) Aspirin 81 MG Delayed Release Oral Tablet Aspirin 81 MG 01/05/2021 12:00:00 AM EDT 1.0 {tablet} active Aspirin 81 MG eCW1 ([facility]) atorvastatin 20 MG Oral Tablet Atorvastatin Calcium 20 MG Atorvastatin Calcium 20 MG 01/05/2021 12:00:00 AM EDT 1.0 {tablet} activ e Atorvastatin Calcium 20 MG eCW1 ([facility]) Aspirin 81 MG Delayed Release Oral Tablet Aspirin 81 MG 01/05/2021 12:00:00 AM EDT 1.0 {tablet} active Aspirin 81 MG eCW1 ([facility]) atorvastatin 20 MG Oral Tablet ATORVASTATIN CALCIUM 01/05/2021 1 2:00:00 AM EDT tablet 90 TAKE ONE TABLET BY MOUTH EVERY D AY TAKE ONE TABLET BY MOUTH EVERY DAY SOLD: 01/05/[address]21 [facility] atorvastatin 20 MG Oral Tablet Atorvastatin Calcium 20 MG Atorvastatin Calcium 20 MG 01/05/2021 12:00:00 AM EDT 1.0 {tablet} activ e Atorvastatin Calcium 20 MG eCW1 ([facility]) Aspirin 81 MG Delayed Release Oral Tablet Aspirin 81 MG 01/05/2021 12:00:00 AM EDT 1.0 {tablet} active Aspirin 81 MG eCW1 ([facility]) Aspirin 81 MG Delayed Release Oral Tablet Aspirin 81 MG 01/05/2021 12:00:00 AM EDT 1.0 {tablet} active Aspirin 81 MG eCW1 ([facility]) Aspirin 81 MG Delayed Release Oral Tablet Aspirin 81 MG 01/05/2021 12:00:00 AM EDT 1.0 {tablet} active Aspirin 81 MG eCW1 ([facility]) atorvastatin 20 MG Oral Tablet Atorvastatin Calcium 20 MG Atorvastatin Calcium 20 MG 01/05/2021 12:00:00 AM EDT 1.0 {tablet} activ e Atorvastatin Calcium 20 MG eCW1 ([facility]) atorvastatin 20 MG Oral Tablet Atorvastatin Calcium 20 MG Atorvastatin Calcium 20 MG 01/05/2021 12:00:00 AM EDT 1.0 {tablet} activ e Atorvastatin Calcium 20 MG eCW1 ([facility]) 81 mg 01/05/2021 12:00:00 AM EDT tablet,delayed release (DR/EC) 30 TAKE ONE TABLET BY MOUTH EVERY DAY TAKE ONE TABLET BY MOUTH EVERY DAY SOLD: 01/05/2021 [facility] Aspirin 81 MG Delayed Release Oral Tablet Aspirin 81 MG 01/05/2021 12:00:00 AM EDT 1.0 {tablet} active Aspirin 81 MG eCW1 ([facility]) atorvastatin 20 MG Oral Tablet Atorvastatin Calcium 20 MG Atorvastatin Calcium 20 MG 01/05/2021 12:00:00 AM EDT 1.0 {tablet} activ e Atorvastatin Calcium 20 MG eCW1 ([facility]) Aspirin 81 MG Delayed Release Oral Tablet Aspirin 81 MG 01/05/2021 12:00:00 AM EDT 1.0 {tablet} active Aspirin 81 MG eCW1 ([facility]) Aspirin 81 MG Delayed Release Oral Tablet Aspirin 81 MG 01/05/2021 12:00:00 AM EDT 1.0 {tablet} active Aspirin 81 MG eCW1 ([facility]) atorvastatin 20 MG Oral Tablet Atorvastatin Calcium 20 MG Atorvastatin Calcium 20 MG 01/05/2021 12:00:00 AM EDT 1.0 {tablet} activ e Atorvastatin Calcium 20 MG eCW1 ([facility]) Aspirin 81 MG Delayed Release Oral Tablet Aspirin 81 MG 01/05/2021 12:00:00 AM EDT 1.0 {tablet} active Aspirin 81 MG eCW1 ([facility]) Aspirin 81 MG Delayed Release Oral Tablet Aspirin 81 MG 01/05/2021 12:00:00 AM EDT 1.0 {tablet} active Aspirin 81 MG eCW1 ([facility]) 81 mg 01/05/2021 12:00:00 AM EDT tablet,delayed release (DR/EC) 30 TAKE ONE TABLET BY MOUTH EVERY DAY TAKE ONE TABLET BY MOUTH EVERY DAY SOLD: 06/09/2021 [facility] Aspirin 81 MG Delayed Release Oral Tablet Aspirin 81 MG 01/05/2021 12:00:00 AM EDT 1.0 {tablet} active Aspirin 81 MG eCW1 ([facility]) atorvastatin 20 MG Oral Tablet Atorvastatin Calcium 20 MG Atorvastatin Calcium 20 MG 01/05/2021 12:00:00 AM EDT 1.0 {tablet} activ e Atorvastatin Calcium 20 MG eCW1 ([facility]) Aspirin 81 MG Delayed Release Oral Tablet Aspirin 81 MG 01/05/2021 12:00:00 AM EDT 1.0 {tablet} active Aspirin 81 MG eCW1 ([facility]) Aspirin 81 MG Delayed Release Oral Tablet Aspirin 81 MG 01/05/2021 12:00:00 AM EDT 1.0 {tablet} active Aspirin 81 MG eCW1 ([facility]) atorvastatin 20 MG Oral Tablet Atorvastatin Calcium 20 MG Atorvastatin Calcium 20 MG 01/05/2021 12:00:00 AM EDT 1.0 {tablet} activ e Atorvastatin Calcium 20 MG eCW1 ([facility]) Aspirin 81 MG Delayed Release Oral Tablet Aspirin 81 MG 01/05/2021 12:00:00 AM EDT 1.0 {tablet} active Aspirin 81 MG eCW1 ([facility]) atorvastatin 20 MG Oral Tablet Atorvastatin Calcium 20 MG Atorvastatin Calcium 20 MG 01/05/2021 12:00:00 AM EDT 1.0 {tablet} activ e Atorvastatin Calcium 20 MG eCW1 ([facility]) Aspirin 81 MG Delayed Release Oral Tablet Aspirin 81 MG 01/05/2021 12:00:00 AM EDT 1.0 {tablet} active Aspirin 81 MG eCW1 ([facility]) atorvastatin 20 MG Oral Tablet Atorvastatin Calcium 20 MG Atorvastatin Calcium 20 MG 01/05/2021 12:00:00 AM EDT 1.0 {tablet} activ e Atorvastatin Calcium 20 MG eCW1 ([facility]) atorvastatin 20 MG Oral Tablet Atorvastatin Calcium 20 MG Atorvastatin Calcium 20 MG 01/05/2021 12:00:00 AM EDT 1.0 {tablet} activ e Atorvastatin Calcium 20 MG eCW1 ([facility]) atorvastatin 20 MG Oral Tablet Atorvastatin Calcium 20 MG Atorvastatin Calcium 20 MG 01/05/2021 12:00:00 AM EDT 1.0 {tablet} activ e Atorvastatin Calcium 20 MG eCW1 ([facility]) atorvastatin 20 MG Oral Tablet Atorvastatin Calcium 20 MG Atorvastatin Calcium 20 MG 01/05/2021 12:00:00 AM EDT 1.0 {tablet} activ e Atorvastatin Calcium 20 MG eCW1 ([facility]) atorvastatin 20 MG Oral Tablet Atorvastatin Calcium 20 MG Atorvastatin Calcium 20 MG 01/05/2021 12:00:00 AM EDT 1.0 {tablet} activ e Atorvastatin Calcium 20 MG eCW1 ([facility]) Aspirin 81 MG Delayed Release Oral Tablet Aspirin 81 MG 01/05/2021 12:00:00 AM EDT 1.0 {tablet} active Aspirin 81 MG eCW1 ([facility]) atorvastatin 20 MG Oral Tablet Atorvastatin Calcium 20 MG Atorvastatin Calcium 20 MG 01/05/2021 12:00:00 AM EDT 1.0 {tablet} activ e Atorvastatin Calcium 20 MG eCW1 ([facility]) atorvastatin 20 MG Oral Tablet Atorvastatin Calcium 20 MG Atorvastatin Calcium 20 MG 01/05/2021 12:00:00 AM EDT 1.0 {tablet} activ e Atorvastatin Calcium 20 MG eCW1 ([facility]) 0.01 % 01/05/2021 12:00:00 AM EDT solution 60 APPLY TWO TIMES A DAY FOR 14 DAYS APPLY TWO TIMES A DAY FOR 14 DAYS SOLD: 01/06/2021 [facility] Aspirin 81 MG Delayed Release Oral Tablet Aspirin 81 MG 01/05/2021 12:00:00 AM EDT 1.0 {tablet} active Aspirin 81 MG eCW1 ([facility]) atorvastatin 20 MG Oral Tablet Atorvastatin Calcium 20 MG Atorvastatin Calcium 20 MG 01/05/2021 12:00:00 AM EDT 1.0 {tablet} activ e Atorvastatin Calcium 20 MG eCW1 ([facility]) 1 % 01/05/2021 12:00:00 AM EDT cream 30 APPLY TOPICALLY TO FULL FACE EVERY MORNING APPLY TOPICALLY TO FULL FACE EVERY MORNING SOLD: 01/05/2021 [employer] atorvastatin 20 MG Oral Tablet Atorvastatin Calcium 20 MG Atorvastatin Calcium 20 MG 01/05/2021 12:00:00 AM EDT 1.0 {tablet} activ e Atorvastatin Calcium 20 MG eCW1 ([facility]) Aspirin 81 MG Delayed Release Oral Tablet Aspirin 81 MG 01/05/2021 12:00:00 AM EDT 1.0 {tablet} active Aspirin 81 MG eCW1 ([facility]) Aspirin 81 MG Delayed Release Oral Tablet Aspirin 81 MG 01/05/2021 12:00:00 AM EDT 1.0 {tablet} active Aspirin 81 MG eCW1 ([facility]) Aspirin 81 MG Delayed Release Oral Tablet Aspirin 81 MG 01/05/2021 12:00:00 AM EDT 1.0 {tablet} active Aspirin 81 MG eCW1 ([facility]) atorvastatin 20 MG Oral Tablet Atorvastatin Calcium 20 MG Atorvastatin Calcium 20 MG 01/05/2021 12:00:00 AM EDT 1.0 {tablet} activ e Atorvastatin Calcium 20 MG eCW1 ([facility]) Aspirin 81 MG Delayed Release Oral Tablet Aspirin 81 MG 01/05/2021 12:00:00 AM EDT 1.0 {tablet} active Aspirin 81 MG eCW1 ([facility]) atorvastatin 20 MG Oral Tablet Atorvastatin Calcium 20 MG Atorvastatin Calcium 20 MG 01/05/2021 12:00:00 AM EDT 1.0 {tablet} activ e Atorvastatin Calcium 20 MG eCW1 ([facility]) atorvastatin 20 MG Oral Tablet Atorvastatin Calcium 20 MG Atorvastatin Calcium 20 MG 01/05/2021 12:00:00 AM EDT 1.0 {tablet} activ e Atorvastatin Calcium 20 MG eCW1 ([facility]) Aspirin 81 MG Delayed Release Oral Tablet Aspirin 81 MG 01/05/2021 12:00:00 AM EDT 1.0 {tablet} active Aspirin 81 MG eCW1 ([facility]) atorvastatin 20 MG Oral Tablet Atorvastatin Calcium 20 MG Atorvastatin Calcium 20 MG 01/05/2021 12:00:00 AM EDT 1.0 {tablet} activ e Atorvastatin Calcium 20 MG eCW1 ([facility]) atorvastatin 20 MG Oral Tablet Atorvastatin Calcium 20 MG Atorvastatin Calcium 20 MG 01/05/2021 12:00:00 AM EDT 1.0 {tablet} activ e Atorvastatin Calcium 20 MG eCW1 ([facility]) 0.01 % (0.1 mg/gram) 01/04/2021 12:00:00 AM [...] Acetonide 0. 01 % eCW1 ([facility]) Fluocinolone Acetonide 0.1 MG/ML Topical Solution Fluo cinolone Acetonide 0.01 % Fluocinolone Acetonide 0.01 % 01/04/2021 12:00:00 AM EDT 1.0 {appli cation} active Fluocinolone Acetonide 0. 01 % eCW1 ([facility]) Fluocinolone Acetonide 0.1 MG/ML Topical Solution Fluo cinolone Acetonide 0.01 % Fluocinolone Acetonide 0.01 % 01/04/2021 12:00:00 AM EDT 1.0 {appli cation} active Fluocinolone Acetonide 0. 01 % eCW1 ([facility]) Fluocinolone Acetonide 0.1 MG/ML Topical Solution Fluo cinolone Acetonide 0.01 % Fluocinolone Acetonide 0.01 % 01/04/2021 12:00:00 AM EDT 1.0 {appli cation} active Fluocinolone Acetonide 0. 01 % eCW1 ([facility]) Fluocinolone Acetonide 0.1 MG/ML Topical Solution Fluo cinolone Acetonide 0.01 % Fluocinolone Acetonide 0.01 % 01/04/2021 12:00:00 AM EDT 1.0 {appli cation} active Fluocinolone Acetonide 0. 01 % eCW1 ([facility]) Fluocinolone Acetonide 0.1 MG/ML Topical Solution Fluo cinolone Acetonide 0.01 % Fluocinolone Acetonide 0.01 % 01/04/2021 12:00:00 AM EDT 1.0 {appli cation} active Fluocinolone Acetonide 0. 01 % eCW1 ([facility]) Fluocinolone Acetonide 0.1 MG/ML Topical Solution Fluo cinolone Acetonide 0.01 % Fluocinolone Acetonide 0.01 % 01/04/2021 12:00:00 AM EDT 1.0 {appli cation} active Fluocinolone Acetonide 0. 01 % eCW1 ([facility]) Fluocinolone Acetonide 0.1 MG/ML Topical Solution Fluo cinolone Acetonide 0.01 % Fluocinolone Acetonide 0.01 % 01/04/2021 12:00:00 AM EDT 1.0 {appli cation} active Fluocinolone Acetonide 0. 01 % eCW1 ([facility]) Fluocinolone Acetonide 0.1 MG/ML Topical Solution Fluo cinolone Acetonide 0.01 % Fluocinolone Acetonide 0.01 % 01/04/2021 12:00:00 AM EDT 1.0 {appli cation} active Fluocinolone Acetonide 0. 01 % eCW1 ([facility]) Fluocinolone Acetonide 0.1 MG/ML Topical Solution Fluo cinolone Acetonide 0.01 % Fluocinolone Acetonide 0.01 % 01/04/2021 12:00:00 AM EDT 1.0 {appli cation} active Fluocinolone Acetonide 0. 01 % eCW1 ([facility]) Fluocinolone Acetonide 0.1 MG/ML Topical Solution Fluo cinolone Acetonide 0.01 % Fluocinolone Acetonide 0.01 % 01/04/2021 12:00:00 AM EDT 1.0 {appli cation} active Fluocinolone Acetonide 0. 01 % eCW1 ([facility]) Fluocinolone Acetonide 0.1 MG/ML Topical Solution Fluo cinolone Acetonide 0.01 % Fluocinolone Acetonide 0.01 % 01/04/2021 12:00:00 AM EDT 1.0 {appli cation} active Fluocinolone Acetonide 0. 01 % eCW1 ([facility]) Fluocinolone Acetonide 0.1 MG/ML Topical Solution Fluo cinolone Acetonide 0.01 % Fluocinolone Acetonide 0.01 % 01/04/2021 12:00:00 AM EDT 1.0 {appli cation} active Fluocinolone Acetonide 0. 01 % eCW1 ([facility]) Fluocinolone Acetonide 0.1 MG/ML Topical Solution Fluo cinolone Acetonide 0.01 % Fluocinolone Acetonide 0.01 % 01/04/2021 12:00:00 AM EDT 1.0 {appli cation} active Fluocinolone Acetonide 0. 01 % eCW1 ([facility]) Fluocinolone Acetonide 0.1 MG/ML Topical Solution Fluo cinolone Acetonide 0.01 % Fluocinolone Acetonide 0.01 % 01/04/2021 12:00:00 AM EDT 1.0 {appli cation} active Fluocinolone Acetonide 0. 01 % eCW1 ([facility]) Fluocinolone Acetonide 0.1 MG/ML Topical Solution Fluo cinolone Acetonide 0.01 % Fluocinolone Acetonide 0.01 % 01/04/2021 12:00:00 AM EDT 1.0 {appli cation} active Fluocinolone Acetonide 0. 01 % eCW1 ([facility]) Fluocinolone Acetonide 0.1 MG/ML Topical Solution Fluo cinolone Acetonide 0.01 % Fluocinolone Acetonide 0.01 % 01/04/2021 12:00:00 AM EDT 1.0 {appli cation} active Fluocinolone Acetonide 0. 01 % eCW1 ([facility]) Pimecrolimus 10 MG/ML Topical Cream [Elidel] Elidel 1 % Elid el 1 % 12/29/2020 12:00:00 AM EDT 1.0 {application} suspended Elidel 1 % eCW1 ([facility]) azelaic acid 200 MG/ML Topical Cream [Azelex] Azelex 20 % Az elex 20 % 12/29/2020 12:00:00 AM EDT 1.0 {application} suspended Azelex 20 % eCW1 ([facility]) azelaic acid 200 MG/ML Topical Cream [Azelex] Azelex 20 % Az elex 20 % 12/29/2020 12:00:00 AM EDT 1.0 {application} active Azelex 20 % eCW1 ([facility]) Fluocinonide 0.5 MG/ML Topical Solution Fluocinonide 0.05 % Fluocinonide 0.05 % 12/29/2020 12:00:00 AM EDT 1.0 {application} act julia Fluocinonide 0.05 % eCW1 ([facility]) Pimecrolimus 10 MG/ML Topical Cream [Elidel] Elidel 1 % Elid el 1 % 12/29/2020 12:00:00 AM EDT 1.0 {application} suspended Elidel 1 % eCW1 ([facility]) Fluocinonide 0.5 MG/ML Topical Solution Fluocinonide 0.05 % Fluocinonide 0.05 % 12/29/2020 12:00:00 AM EDT 1.0 {application} act julia Fluocinonide 0.05 % eCW1 ([facility]) azelaic acid 200 MG/ML Topical Cream [Azelex] Azelex 20 % Az elex 20 % 12/29/2020 12:00:00 AM EDT 1.0 {application} active Azelex 20 % eCW1 ([facility]) Pimecrolimus 10 MG/ML Topical Cream [Elidel] Elidel 1 % Elid el 1 % 12/29/2020 12:00:00 AM EDT 1.0 {application} active Elidel 1 % eCW1 ([facility]) Fluocinonide 0.5 MG/ML Topical Solution Fluocinonide 0.05 % Fluocinonide 0.05 % 12/29/2020 12:00:00 AM EDT 1.0 {application} act julia Fluocinonide 0.05 % eCW1 ([facility]) azelaic acid 200 MG/ML Topical Cream [Azelex] Azelex 20 % Az elex 20 % 12/29/2020 12:00:00 AM EDT 1.0 {application} suspended Azelex 20 % eCW1 ([facility]) azelaic acid 200 MG/ML Topical Cream [Azelex] Azelex 20 % Az elex 20 % 12/29/2020 12:00:00 AM EDT 1.0 {application} active Azelex 20 % eCW1 ([facility]) Fluocinonide 0.5 MG/ML Topical Solution Fluocinonide 0.05 % Fluocinonide 0.05 % 12/29/2020 12:00:00 AM EDT 1.0 {application} act julia Fluocinonide 0.05 % eCW1 ([facility]) azelaic acid 200 MG/ML Topical Cream [Azelex] Azelex 20 % Az elex 20 % 12/29/2020 12:00:00 AM EDT 1.0 {application} suspended Azelex 20 % eCW1 ([facility]) Pimecrolimus 10 MG/ML Topical Cream [Elidel] Elidel 1 % Elid el 1 % 12/29/2020 12:00:00 AM EDT 1.0 {application} suspended Elidel 1 % eCW1 ([facility]) Fluocinonide 0.5 MG/ML Topical Solution Fluocinonide 0.05 % Fluocinonide 0.05 % 12/29/2020 12:00:00 AM EDT 1.0 {application} act julia Fluocinonide 0.05 % eCW1 ([facility]) azelaic acid 200 MG/ML Topical Cream [Azelex] Azelex 20 % Az elex 20 % 12/29/2020 12:00:00 AM EDT 1.0 {application} suspended Azelex 20 % eCW1 ([facility]) azelaic acid 200 MG/ML Topical Cream [Azelex] Azelex 20 % Az elex 20 % 12/29/2020 12:00:00 AM EDT 1.0 {application} active Azelex 20 % eCW1 ([facility]) Pimecrolimus 10 MG/ML Topical Cream [Elidel] Elidel 1 % Elid el 1 % 12/29/2020 12:00:00 AM EDT 1.0 {application} suspended Elidel 1 % eCW1 ([facility]) Pimecrolimus 10 MG/ML Topical Cream [Elidel] Elidel 1 % Elid el 1 % 12/29/2020 12:00:00 AM EDT 1.0 {application} active Elidel 1 % eCW1 ([facility]) Pimecrolimus 10 MG/ML Topical Cream [Elidel] Elidel 1 % Elid el 1 % 12/29/2020 12:00:00 AM EDT 1.0 {application} active Elidel 1 % eCW1 ([facility]) azelaic acid 200 MG/ML Topical Cream [Azelex] Azelex 20 % Az elex 20 % 12/29/2020 12:00:00 AM EDT 1.0 {application} active Azelex 20 % eCW1 ([facility]) azelaic acid 200 MG/ML Topical Cream [Azelex] Azelex 20 % Az elex 20 % 12/29/2020 12:00:00 AM EDT 1.0 {application} active Azelex 20 % eCW1 ([facility]) Pimecrolimus 10 MG/ML Topical Cream [Elidel] Elidel 1 % Elid el 1 % 12/29/2020 12:00:00 AM EDT 1.0 {application} active Elidel 1 % eCW1 ([facility]) Fluocinonide 0.5 MG/ML Topical Solution Fluocinonide 0.05 % Fluocinonide 0.05 % 12/29/2020 12:00:00 AM EDT 1.0 {application} act julia Fluocinonide 0.05 % eCW1 ([facility]) Pimecrolimus 10 MG/ML Topical Cream [Elidel] Elidel 1 % Elid el 1 % 12/29/2020 12:00:00 AM EDT 1.0 {application} active Elidel 1 % eCW1 ([facility]) azelaic acid 200 MG/ML Topical Cream [Azelex] Azelex 20 % Az elex 20 % 12/29/2020 12:00:00 AM EDT 1.0 {application} suspended Azelex 20 % eCW1 ([facility]) Pimecrolimus 10 MG/ML Topical Cream [Elidel] Elidel 1 % Elid el 1 % 12/29/2020 12:00:00 AM EDT 1.0 {application} suspended Elidel 1 % eCW1 ([facility]) azelaic acid 200 MG/ML Topical Cream [Azelex] Azelex 20 % Az elex 20 % 12/29/2020 12:00:00 AM EDT 1.0 {application} active Azelex 20 % eCW1 ([facility]) Pimecrolimus 10 MG/ML Topical Cream [Elidel] Elidel 1 % Elid el 1 % 12/29/2020 12:00:00 AM EDT 1.0 {application} active Elidel 1 % eCW1 ([facility]) Fluocinonide 0.5 MG/ML Topical Solution Fluocinonide 0.05 % Fluocinonide 0.05 % 12/29/2020 12:00:00 AM EDT 1.0 {application} act julia Fluocinonide 0.05 % eCW1 ([facility]) azelaic acid 200 MG/ML Topical Cream [Azelex] Azelex 20 % Az elex 20 % 12/29/2020 12:00:00 AM EDT 1.0 {application} active Azelex 20 % eCW1 ([facility]) azelaic acid 200 MG/ML Topical Cream [Azelex] Azelex 20 % Az elex 20 % 12/29/2020 12:00:00 AM EDT 1.0 {application} suspended Azelex 20 % eCW1 ([facility]) Pimecrolimus 10 MG/ML Topical Cream [Elidel] Elidel 1 % Elid el 1 % 12/29/2020 12:00:00 AM EDT 1.0 {application} active Elidel 1 % eCW1 ([facility]) Pimecrolimus 10 MG/ML Topical Cream [Elidel] Elidel 1 % Elid el 1 % 12/29/2020 12:00:00 AM EDT 1.0 {application} suspended Elidel 1 % eCW1 ([facility]) 0.05 % 12/29/2020 12:00:00 AM EDT solution [...] julia Fluocinonide 0.05 % eCW1 ([facility]) Pimecrolimus 10 MG/ML Topical Cream [Elidel] Elidel 1 % Elid el 1 % 12/29/2020 12:00:00 AM EDT 1.0 {application} suspended Elidel 1 % eCW1 ([facility]) azelaic acid 200 MG/ML Topical Cream [Azelex] Azelex 20 % Az elex 20 % 12/29/2020 12:00:00 AM EDT 1.0 {application} active Azelex 20 % eCW1 ([facility]) azelaic acid 200 MG/ML Topical Cream [Azelex] Azelex 20 % Az elex 20 % 12/29/2020 12:00:00 AM EDT 1.0 {application} active Azelex 20 % eCW1 ([facility]) Pimecrolimus 10 MG/ML Topical Cream [Elidel] Elidel 1 % Elid el 1 % 12/29/2020 12:00:00 AM EDT 1.0 {application} active Elidel 1 % eCW1 ([facility]) azelaic acid 200 MG/ML Topical Cream [Azelex] Azelex 20 % Az elex 20 % 12/29/2020 12:00:00 AM EDT 1.0 {application} active Azelex 20 % eCW1 ([facility]) azelaic acid 200 MG/ML Topical Cream [Azelex] Azelex 20 % Az elex 20 % 12/29/2020 12:00:00 AM EDT 1.0 {application} suspended Azelex 20 % eCW1 ([facility]) azelaic acid 200 MG/ML Topical Cream [Azelex] Azelex 20 % Az elex 20 % 12/29/2020 12:00:00 AM EDT 1.0 {application} suspended Azelex 20 % eCW1 ([facility]) azelaic acid 200 MG/ML Topical Cream [Azelex] Azelex 20 % Az elex 20 % 12/29/2020 12:00:00 AM EDT 1.0 {application} active Azelex 20 % eCW1 ([facility]) Pimecrolimus 10 MG/ML Topical Cream [Elidel] Elidel 1 % Elid el 1 % 12/29/2020 12:00:00 AM EDT 1.0 {application} suspended Elidel 1 % eCW1 ([facility]) Pimecrolimus 10 MG/ML Topical Cream [Elidel] Elidel 1 % Elid el 1 % 12/29/2020 12:00:00 AM EDT 1.0 {application} active Elidel 1 % eCW1 ([facility]) Fluocinonide 0.5 MG/ML Topical Solution Fluocinonide 0.05 % Fluocinonide 0.05 % 12/29/2020 12:00:00 AM EDT 1.0 {application} act julia Fluocinonide 0.05 % eCW1 ([facility]) Pimecrolimus 10 MG/ML Topical Cream [Elidel] Elidel 1 % Elid el 1 % 12/29/2020 12:00:00 AM EDT 1.0 {application} active Elidel 1 % eCW1 ([facility]) Fluocinonide 0.5 MG/ML Topical Solution Fluocinonide 0.05 % Fluocinonide 0.05 % 12/29/2020 12:00:00 AM EDT 1.0 {application} act julia Fluocinonide 0.05 % eCW1 ([facility]) Pimecrolimus 10 MG/ML Topical Cream [Elidel] Elidel 1 % Elid el 1 % 12/29/2020 12:00:00 AM EDT 1.0 {application} active Elidel 1 % eCW1 ([facility]) Pimecrolimus 10 MG/ML Topical Cream [Elidel] Elidel 1 % Elid el 1 % 12/29/2020 12:00:00 AM EDT 1.0 {application} suspended Elidel 1 % eCW1 ([facility]) azelaic acid 200 MG/ML Topical Cream [Azelex] Azelex 20 % Az elex 20 % 12/29/2020 12:00:00 AM EDT 1.0 {application} suspended Azelex 20 % eCW1 ([facility]) Fluocinonide 0.5 MG/ML Topical Solution Fluocinonide 0.05 % Fluocinonide 0.05 % 12/29/2020 12:00:00 AM EDT 1.0 {application} act julia Fluocinonide 0.05 % eCW1 ([facility]) Fluocinonide 0.5 MG/ML Topical Solution Fluocinonide 0.05 % Fluocinonide 0.05 % 12/29/2020 12:00:00 AM EDT 1.0 {application} act julia Fluocinonide 0.05 % eCW1 ([facility]) azelaic acid 200 MG/ML Topical Cream [Azelex] Azelex 20 % Az elex 20 % 12/29/2020 12:00:00 AM EDT 1.0 {application} suspended Azelex 20 % eCW1 ([facility]) Fluocinonide 0.5 MG/ML Topical Solution Fluocinonide 0.05 % Fluocinonide 0.05 % 12/29/2020 12:00:00 AM EDT 1.0 {application} act julia Fluocinonide 0.05 % eCW1 ([facility]) Fluocinonide 0.5 MG/ML Topical Solution Fluocinonide 0.05 % Fluocinonide 0.05 % 12/29/2020 12:00:00 AM EDT 1.0 {application} act julia Fluocinonide 0.05 % eCW1 ([facility]) 0.05 % 12/29/2020 12:00:00 AM EDT solution [...] julia Fluocinonide 0.05 % eCW1 ([facility]) azelaic acid 200 MG/ML Topical Cream [Azelex] Azelex 20 % Az elex 20 % 12/29/2020 12:00:00 AM EDT 1.0 {application} suspended Azelex 20 % eCW1 ([facility]) Fluocinonide 0.5 MG/ML Topical Solution Fluocinonide 0.05 % Fluocinonide 0.05 % 12/29/2020 12:00:00 AM EDT 1.0 {application} act julia Fluocinonide 0.05 % eCW1 ([facility]) azelaic acid 200 MG/ML Topical Cream [Azelex] Azelex 20 % Az elex 20 % 12/29/2020 12:00:00 AM EDT 1.0 {application} active Azelex 20 % eCW1 ([facility]) azelaic acid 200 MG/ML Topical Cream [Azelex] Azelex 20 % Az elex 20 % 12/29/2020 12:00:00 AM EDT 1.0 {application} suspended Azelex 20 % eCW1 ([facility]) Pimecrolimus 10 MG/ML Topical Cream [Elidel] Elidel 1 % Elid el 1 % 12/29/2020 12:00:00 AM EDT 1.0 {application} active Elidel 1 % eCW1 ([facility]) azelaic acid 200 MG/ML Topical Cream [Azelex] Azelex 20 % Az elex 20 % 12/29/2020 12:00:00 AM EDT 1.0 {application} suspended Azelex 20 % eCW1 ([facility]) azelaic acid 200 MG/ML Topical Cream [Azelex] Azelex 20 % Az elex 20 % 12/29/2020 12:00:00 AM EDT 1.0 {application} active Azelex 20 % eCW1 ([facility]) Pimecrolimus 10 MG/ML Topical Cream [Elidel] Elidel 1 % Elid el 1 % 12/29/2020 12:00:00 AM EDT 1.0 {application} active Elidel 1 % eCW1 ([facility]) azelaic acid 200 MG/ML Topical Cream [Azelex] Azelex 20 % Az elex 20 % 12/29/2020 12:00:00 AM EDT 1.0 {application} suspended Azelex 20 % eCW1 ([facility]) Pimecrolimus 10 MG/ML Topical Cream [Elidel] Elidel 1 % Elid el 1 % 12/29/2020 12:00:00 AM EDT 1.0 {application} suspended Elidel 1 % eCW1 ([facility]) Pimecrolimus 10 MG/ML Topical Cream [Elidel] Elidel 1 % Elid el 1 % 12/29/2020 12:00:00 AM EDT 1.0 {application} active Elidel 1 % eCW1 ([facility]) Pimecrolimus 10 MG/ML Topical Cream [Elidel] Elidel 1 % Elid el 1 % 12/29/2020 12:00:00 AM EDT 1.0 {application} suspended Elidel 1 % eCW1 ([facility]) Pimecrolimus 10 MG/ML Topical Cream [Elidel] Elidel 1 % Elid el 1 % 12/29/2020 12:00:00 AM EDT 1.0 {application} active Elidel 1 % eCW1 ([facility]) azelaic acid 200 MG/ML Topical Cream [Azelex] Azelex 20 % Az elex 20 % 12/29/2020 12:00:00 AM EDT 1.0 {application} active Azelex 20 % eCW1 ([facility]) Fluocinonide 0.5 MG/ML Topical Solution Fluocinonide 0.05 % Fluocinonide 0.05 % 12/29/2020 12:00:00 AM EDT 1.0 {application} act julia Fluocinonide 0.05 % eCW1 ([facility]) Pimecrolimus 10 MG/ML Topical Cream [Elidel] Elidel 1 % Elid el 1 % 12/29/2020 12:00:00 AM EDT 1.0 {application} suspended Elidel 1 % eCW1 ([facility]) azelaic acid 200 MG/ML Topical Cream [Azelex] Azelex 20 % Az elex 20 % 12/29/2020 12:00:00 AM EDT 1.0 {application} active Azelex 20 % eCW1 ([facility]) azelaic acid 200 MG/ML Topical Cream [Azelex] Azelex 20 % Az elex 20 % 12/29/2020 12:00:00 AM EDT 1.0 {application} active Azelex 20 % eCW1 ([facility]) Fluocinonide 0.5 MG/ML Topical Solution Fluocinonide 0.05 % Fluocinonide 0.05 % 12/29/2020 12:00:00 AM EDT 1.0 {application} act julia Fluocinonide 0.05 % eCW1 ([facility]) Pimecrolimus 10 MG/ML Topical Cream [Elidel] Elidel 1 % Elid el 1 % 12/29/2020 12:00:00 AM EDT 1.0 {application} active Elidel 1 % eCW1 ([facility]) Pimecrolimus 10 MG/ML Topical Cream [Elidel] Elidel 1 % Elid el 1 % 12/29/2020 12:00:00 AM EDT 1.0 {application} suspended Elidel 1 % eCW1 ([facility]) azelaic acid 200 MG/ML Topical Cream [Azelex] Azelex 20 % Az elex 20 % 12/29/2020 12:00:00 AM EDT 1.0 {application} suspended Azelex 20 % eCW1 ([facility]) Pimecrolimus 10 MG/ML Topical Cream [Elidel] Elidel 1 % Elid el 1 % 12/29/2020 12:00:00 AM EDT 1.0 {application} suspended Elidel 1 % eCW1 ([facility]) Pimecrolimus 10 MG/ML Topical Cream [Elidel] Elidel 1 % Elid el 1 % 12/29/2020 12:00:00 AM EDT 1.0 {application} active Elidel 1 % eCW1 ([facility]) Pimecrolimus 10 MG/ML Topical Cream [Elidel] Elidel 1 % Elid el 1 % 12/29/2020 12:00:00 AM EDT 1.0 {application} suspended Elidel 1 % eCW1 ([facility]) azelaic acid 200 MG/ML Topical Cream [Azelex] Azelex 20 % Az elex 20 % 12/29/2020 12:00:00 AM EDT 1.0 {application} active Azelex 20 % eCW1 ([facility]) Pimecrolimus 10 MG/ML Topical Cream [Elidel] Elidel 1 % Elid el 1 % 12/29/2020 12:00:00 AM EDT 1.0 {application} active Elidel 1 % eCW1 ([facility]) 40 mg 12/25/2020 12:00:00 AM EDT tablet [...] 1- 2TSP OF WATER SOLD: 12/21/[address] [facility] 150 mg 12/19/2020 12:00:00 AM EDT [...] Lasix 40 M G eCW1 ([facility]) Furosemide 40 MG Oral Tablet [Lasix] Lasix 40 MG Lasix 40 MG 11/25/2020 12:00:00 AM EDT 1.0 {tablet} active Lasix 40 M G eCW1 ([facility]) Furosemide 40 MG Oral Tablet [Lasix] Lasix 40 MG Lasix 40 MG 11/25/2020 12:00:00 AM EDT 1.0 {tablet} active Lasix 40 M G eCW1 ([facility]) 50 mg 11/25/2020 12:00:00 AM EDT tablet 90 TAKE ONE TABLET BY MOUTH EVERY 6 HOURS NEEDED FOR PAIN MAXIMUM DAILY DOSE = 4 TAKE ONE TABLET BY MOUTH EVERY 6 HOURS NEEDED FOR PAIN MAXIMUM DAILY DOSE = 4 SOLD: 11/26/2020 [facility] Furosemide 40 MG Oral Tablet [Lasix] Lasix 40 MG Lasix 40 MG 11/25/2020 12:00:00 AM EDT 1.0 {tablet} active Lasix 40 M G eCW1 ([facility]) Furosemide 40 MG Oral Tablet [Lasix] Lasix 40 MG Lasix 40 MG 11/25/2020 12:00:00 AM EDT 1.0 {tablet} active Lasix 40 M G eCW1 ([facility]) 2.5-0.025 mg 10/29/2020 12:00:00 AM EST tablet [...] MAXIMUM DAILY DOSE = 2 SOLD: 10/31/2020 [facility] pantoprazole 40 MG Delayed Release Oral Tablet PANTOPRAZOLE SODIUM 10/27/2020 12:00:00 AM EST tablet,delayed release (DR/EC) 60 T ROGELIO ONE TABLET BY MOUTH TWICE A DAY TAKE ONE TABLET BY MOUTH TWICE A DAY SOLD: 10/28/2020 [employer] pantoprazole 40 MG Delayed Release Oral Tablet PANTOPRAZOLE SODIUM 10/27/2020 12:00:00 AM EST tablet,delayed release (DR/EC) 60 T ROGELIO ONE TABLET BY MOUTH TWICE A DAY TAKE ONE TABLET BY MOUTH TWICE A DAY SOLD: 01/03/2021 [employer] pantoprazole 40 MG Delayed Release Oral Tablet PANTOPRAZOLE SODIUM 10/27/2020 12:00:00 AM EST tablet,delayed release (DR/EC) 60 T ROGELIO ONE TABLET BY MOUTH TWICE A DAY TAKE ONE TABLET BY MOUTH TWICE A DAY SOLD: 02/03/2021 [employer] pantoprazole 40 MG Delayed Release Oral Tablet [...] active MEDENT ([facility]) 137 mcg (0.1 %) 08/31/2020 12:00:00 AM [...] e HCl 0.1 % eCW1 ([facility]) Azelastine HCl 0.1 % Azelastine HCl 0.1 % 08/31/2020 12:00:00 AM ES T 1.0 {puff_in_each_nostril} active Azelastin e HCl 0.1 % eCW1 ([facility]) Azelastine HCl 0.1 % Azelastine HCl 0.1 % 08/31/2020 12:00:00 AM ES T 1.0 {puff_in_each_nostril} active Azelastin e HCl 0.1 % eCW1 ([facility]) Azelastine HCl 0.1 % Azelastine HCl 0.1 % 08/31/2020 12:00:00 AM ES T 1.0 {puff_in_each_nostril} active Azelastin e HCl 0.1 % eCW1 ([facility]) 10 mg 08/31/2020 12:00:00 AM EST tablet [...] e HCl 0.1 % eCW1 ([facility]) Azelastine HCl 0.1 % Azelastine HCl 0.1 % 08/31/2020 12:00:00 AM ES T 1.0 {puff_in_each_nostril} active Azelastin e HCl 0.1 % eCW1 ([facility]) 137 mcg (0.1 %) 08/31/2020 12:00:00 AM [...] e HCl 0.1 % eCW1 ([facility]) Azelastine HCl 0.1 % Azelastine HCl 0.1 % 08/31/2020 12:00:00 AM ES T 1.0 {puff_in_each_nostril} active Azelastin e HCl 0.1 % eCW1 ([facility]) 2.5-0.025 mg 08/31/2020 12:00:00 AM EST tablet [...] suspended Loratadine 10 MG eCW1 ([facility]) Loratadine 10 MG Oral Tablet Loratadine 10 MG 08/30/2020 12:00:00 A M EST 1.0 {tablet} active Loratadine 10 MG eCW1 ( [facility]) Loratadine 10 MG Oral Tablet Loratadine 10 MG 08/30/2020 12:00:00 A M EST 1.0 {tablet} active Loratadine 10 MG eCW1 ( [facility]) Loratadine 10 MG Oral Tablet Loratadine 10 MG 08/30/2020 12:00:00 A M EST 1.0 {tablet} active Loratadine 10 MG eCW1 ( [facility]) Loratadine 10 MG Oral Tablet Loratadine 10 MG 08/30/2020 12:00:00 A M EST 1.0 {tablet} suspended Loratadine 10 MG eCW1 ([facility]) Loratadine 10 MG Oral Tablet Loratadine 10 MG 08/30/2020 12:00:00 A M EST 1.0 {tablet} suspended Loratadine 10 MG eCW1 ([facility]) Loratadine 10 MG Oral Tablet Loratadine 10 MG 08/30/2020 12:00:00 A M EST 1.0 {tablet} active Loratadine 10 MG eCW1 ( [facility]) Loratadine 10 MG Oral Tablet Loratadine 10 MG 08/30/2020 12:00:00 A M EST 1.0 {tablet} suspended Loratadine 10 MG eCW1 ([facility]) Loratadine 10 MG Oral Tablet Loratadine 10 MG 08/30/2020 12:00:00 A M EST 1.0 {tablet} active Loratadine 10 MG eCW1 ( [facility]) Loratadine 10 MG Oral Tablet Loratadine 10 MG 08/30/2020 12:00:00 A M EST 1.0 {tablet} active Loratadine 10 MG eCW1 ( [facility]) Loratadine 10 MG Oral Tablet Loratadine 10 MG 08/30/2020 12:00:00 A M EST 1.0 {tablet} active Loratadine 10 MG eCW1 ( [facility]) Loratadine 10 MG Oral Tablet Loratadine 10 MG 08/30/2020 12:00:00 A M EST 1.0 {tablet} suspended Loratadine 10 MG eCW1 ([facility]) Loratadine 10 MG Oral Tablet Loratadine 10 MG 08/30/2020 12:00:00 A M EST 1.0 {tablet} suspended Loratadine 10 MG eCW1 ([facility]) Loratadine 10 MG Oral Tablet Loratadine 10 MG 08/30/2020 12:00:00 A M EST 1.0 {tablet} active Loratadine 10 MG eCW1 ( [facility]) Loratadine 10 MG Oral Tablet Loratadine 10 MG 08/30/2020 12:00:00 A M EST 1.0 {tablet} suspended Loratadine 10 MG eCW1 ([facility]) Loratadine 10 MG Oral Tablet Loratadine 10 MG 08/30/2020 12:00:00 A M EST 1.0 {tablet} active Loratadine 10 MG eCW1 ( [facility]) Loratadine 10 MG Oral Tablet Loratadine 10 MG 08/30/2020 12:00:00 A M EST 1.0 {tablet} active Loratadine 10 MG eCW1 ( [facility]) Loratadine 10 MG Oral Tablet Loratadine 10 MG 08/30/2020 12:00:00 A M EST 1.0 {tablet} active Loratadine 10 MG eCW1 ( [facility]) Loratadine 10 MG Oral Tablet Loratadine 10 MG 08/30/2020 12:00:00 A M EST 1.0 {tablet} active Loratadine 10 MG eCW1 ( [facility]) Loratadine 10 MG Oral Tablet Loratadine 10 MG 08/30/2020 12:00:00 A M EST 1.0 {tablet} suspended Loratadine 10 MG eCW1 ([facility]) Loratadine 10 MG Oral Tablet Loratadine 10 MG 08/30/2020 12:00:00 A M EST 1.0 {tablet} active Loratadine 10 MG eCW1 ( [facility]) Loratadine 10 MG Oral Tablet Loratadine 10 MG 08/30/2020 12:00:00 A M EST 1.0 {tablet} active Loratadine 10 MG eCW1 ( [facility]) Loratadine 10 MG Oral Tablet Loratadine 10 MG 08/30/2020 12:00:00 A M EST 1.0 {tablet} suspended Loratadine 10 MG eCW1 ([facility]) Loratadine 10 MG Oral Tablet Loratadine 10 MG 08/30/2020 12:00:00 A M EST 1.0 {tablet} active Loratadine 10 MG eCW1 ( [facility]) Loratadine 10 MG Oral Tablet Loratadine 10 MG 08/30/2020 12:00:00 A M EST 1.0 {tablet} suspended Loratadine 10 MG eCW1 ([facility]) Loratadine 10 MG Oral Tablet Loratadine 10 MG 08/30/2020 12:00:00 A M EST 1.0 {tablet} active Loratadine 10 MG eCW1 ( [facility]) Loratadine 10 MG Oral Tablet Loratadine 10 MG 08/30/2020 12:00:00 A M EST 1.0 {tablet} suspended Loratadine 10 MG eCW1 ([facility]) Loratadine 10 MG Oral Tablet Loratadine 10 MG 08/30/2020 12:00:00 A M EST 1.0 {tablet} suspended Loratadine 10 MG eCW1 ([facility]) Loratadine 10 MG Oral Tablet Loratadine 10 MG 08/30/2020 12:00:00 A M EST 1.0 {tablet} active Loratadine 10 MG eCW1 ( [facility]) Loratadine 10 MG Oral Tablet Loratadine 10 MG 08/30/2020 12:00:00 A M EST 1.0 {tablet} suspended Loratadine 10 MG eCW1 ([facility]) Loratadine 10 MG Oral Tablet Loratadine 10 MG 08/30/2020 12:00:00 A M EST 1.0 {tablet} active Loratadine 10 MG eCW1 ( [facility]) Loratadine 10 MG Oral Tablet Loratadine 10 MG 08/30/2020 12:00:00 A M EST 1.0 {tablet} suspended Loratadine 10 MG eCW1 ([facility]) Loratadine 10 MG Oral Tablet Loratadine 10 MG 08/30/2020 12:00:00 A M EST 1.0 {tablet} suspended Loratadine 10 MG eCW1 ([facility]) Loratadine 10 MG Oral Tablet Loratadine 10 MG 08/30/2020 12:00:00 A M EST 1.0 {tablet} suspended Loratadine 10 MG eCW1 ([facility]) Loratadine 10 MG Oral Tablet Loratadine 10 MG 08/30/2020 12:00:00 A M EST 1.0 {tablet} suspended Loratadine 10 MG eCW1 ([facility]) Loratadine 10 MG Oral Tablet Loratadine 10 MG 08/30/2020 12:00:00 A M EST 1.0 {tablet} active Loratadine 10 MG eCW1 ( [facility]) 150 mg 08/15/2020 12:00:00 AM EST capsule 90 TAKE ONE CAPSULE BY MOUTH THREE TIMES A DAY FOR PAIN MAXIMUM DAILY DOSE = 3 TAKE ONE CAPSULE BY MOUTH THREE TIMES A DAY FOR PAIN MAXIMUM DAILY DOSE = 3 SOLD: 08/15/2020 [facility] 50 mg 08/13/2020 12:00:00 AM EST tablet 90 TAKE ONE TABLET BY MOUTH EVERY 6 HOURS NEEDED FOR PAIN MAXIMUM DAILY DOSE = 4 TAKE ONE TABLET BY MOUTH EVERY 6 HOURS NEEDED FOR PAIN MAXIMUM DAILY DOSE = 4 SOLD: 08/14/2020 [facility] Cyclobenzaprine hydrochloride 10 MG Oral Tablet CYCLOBENZAPR INE HCL 08/13/2020 12:00:00 AM EST tablet 75 TAKE ONE TABLET BY MOUTH THREE TIMES A DAY NEEDED FOR SPASMS AND PAIN MAXIMUM DAILY DOSE = 3 TAKE ONE TABLET BY MOUTH THREE TIMES A DAY NEEDED FOR SPASMS AND PAIN MAXIMUM DAILY DOSE = 3 SOLD: 08/14/2020 [facility] Cyclobenzaprine hydrochloride 10 MG Oral Tablet [...] Fluocinolone Acetonide 0.025 % eCW1 ([facility]) Fluocinolone Acetonide 0.25 MG/ML Topical Cream Fluoci nolone Acetonide 0.025 % Fluocinolone Acetonide 0.025 % 07/29/2020 12:00:00 AM EST active Fluocinolone Acetonide 0.025 % eCW1 ([facility]) 0.025 % 07/29/2020 12:00:00 AM EST cream 15 APPLY THIN LAYER TO AFFECTED AREAS ON BOTH LEGS TWO TIMES A DAY NEEDED APPLY THIN LAYER TO AFFECTED AREAS ON BOTH LEGS TWO TIMES A DAY NEEDED SOLD: 02/03/2021 [facility] Fluocinolone Acetonide 0.25 MG/ML Topical Cream Fluoci nolone Acetonide 0.025 % Fluocinolone Acetonide 0.025 % 07/29/2020 12:00:00 AM EST suspended Fluocinolone Acetonide 0.025 % eCW1 ([facility]) Fluocinolone Acetonide 0.25 MG/ML Topical Cream Fluoci nolone Acetonide 0.025 % Fluocinolone Acetonide 0.025 % 07/29/2020 12:00:00 AM EST active Fluocinolone Acetonide 0.025 % eCW1 ([facility]) Fluocinolone Acetonide 0.25 MG/ML Topical Cream Fluoci nolone Acetonide 0.025 % Fluocinolone Acetonide 0.025 % 07/29/2020 12:00:00 AM EST active Fluocinolone Acetonide 0.025 % eCW1 ([facility]) Fluocinolone Acetonide 0.25 MG/ML Topical Cream Fluoci nolone Acetonide 0.025 % Fluocinolone Acetonide 0.025 % 07/29/2020 12:00:00 AM EST suspended Fluocinolone Acetonide 0.025 % eCW1 ([facility]) Fluocinolone Acetonide 0.25 MG/ML Topical Cream Fluoci nolone Acetonide 0.025 % Fluocinolone Acetonide 0.025 % 07/29/2020 12:00:00 AM EST active Fluocinolone Acetonide 0.025 % eCW1 ([facility]) Cetirizine HCl 10 MG UNK 07/29/2020 12:00:00 AM EST active Cetirizine HCl 10 MG eCW1 ([facility]) Fluocinolone Acetonide 0.25 MG/ML Topical Cream Fluoci nolone Acetonide 0.025 % Fluocinolone Acetonide 0.025 % 07/29/2020 12:00:00 AM EST suspended Fluocinolone Acetonide 0.025 % eCW1 ([facility]) Cetirizine HCl 10 MG UNK 07/29/2020 12:00:00 AM EST suspended Cetirizine HCl 10 MG eCW1 ([facility]) Fluocinolone Acetonide 0.25 MG/ML Topical Cream Fluoci nolone Acetonide 0.025 % Fluocinolone Acetonide 0.025 % 07/29/2020 12:00:00 AM EST active Fluocinolone Acetonide 0.025 % eCW1 ([facility]) Cetirizine HCl 10 MG UNK 07/29/2020 12:00:00 AM EST active Cetirizine HCl 10 MG eCW1 ([facility]) Cetirizine HCl 10 MG UNK 07/29/2020 12:00:00 AM EST active Cetirizine HCl 10 MG eCW1 ([facility]) Cetirizine HCl 10 MG UNK 07/29/2020 12:00:00 AM EST active Cetirizine HCl 10 MG eCW1 ([facility]) Fluocinolone Acetonide 0.25 MG/ML Topical Cream Fluoci nolone Acetonide 0.025 % Fluocinolone Acetonide 0.025 % 07/29/2020 12:00:00 AM EST suspended Fluocinolone Acetonide 0.025 % eCW1 ([facility]) Cetirizine HCl 10 MG UNK 07/29/2020 12:00:00 AM EST suspended Cetirizine HCl 10 MG eCW1 ([facility]) Cetirizine HCl 10 MG UNK 07/29/2020 12:00:00 AM EST suspended Cetirizine HCl 10 MG [facility] [facility] Fluocinolone Acetonide 0.25 MG/ML Topical Cream Fluoci nolone Acetonide 0.025 % Fluocinolone Acetonide 0.025 % 07/29/2020 12:00:00 AM EST suspended Fluocinolone Acetonide 0.025 % eCW1 ([facility]) Fluocinolone Acetonide 0.25 MG/ML Topical Cream Fluoci nolone Acetonide 0.025 % Fluocinolone Acetonide 0.025 % 07/29/2020 12:00:00 AM EST active Fluocinolone Acetonide 0.025 % eCW1 ([facility]) Cetirizine HCl 10 MG UNK 07/29/2020 12:00:00 AM EST suspended Cetirizine HCl 10 MG eCW1 ([facility]) Cetirizine HCl 10 MG UNK 07/29/2020 12:00:00 AM EST suspended Cetirizine HCl 10 MG eCW1 ([facility]) Fluocinolone Acetonide 0.25 MG/ML Topical Cream Fluoci nolone Acetonide 0.025 % Fluocinolone Acetonide 0.025 % 07/29/2020 12:00:00 AM EST suspended Fluocinolone Acetonide 0.025 % eCW1 ([facility]) Cetirizine HCl 10 MG UNK 07/29/2020 12:00:00 AM EST active Cetirizine HCl 10 MG eCW1 ([facility]) 10 mg 07/29/2020 12:00:00 AM EST tablet 30 TAKE ONE TABLET BY MOUTH AT BEDTIME TAKE ONE TABLET BY MOUTH AT BEDTIME SOLD: 07/29/2020 [facility] Cetirizine HCl 10 MG UNK 07/29/2020 12:00:00 AM EST active Cetirizine HCl 10 MG eCW1 ([facility]) Cetirizine HCl 10 MG UNK 07/29/2020 12:00:00 AM EST suspended Cetirizine HCl 10 MG eCW1 ([facility]) Fluocinolone Acetonide 0.25 MG/ML Topical Cream Fluoci nolone Acetonide 0.025 % Fluocinolone Acetonide 0.025 % 07/29/2020 12:00:00 AM EST suspended Fluocinolone Acetonide 0.025 % eCW1 ([facility]) Cetirizine HCl 10 MG UNK 07/29/2020 12:00:00 AM EST active Cetirizine HCl 10 MG eCW1 ([facility]) Cetirizine HCl 10 MG UNK 07/29/2020 12:00:00 AM EST suspended Cetirizine HCl 10 MG eCW1 ([facility]) Fluocinolone Acetonide 0.25 MG/ML Topical Cream Fluoci nolone Acetonide 0.025 % Fluocinolone Acetonide 0.025 % 07/29/2020 12:00:00 AM EST active Fluocinolone Acetonide 0.025 % eCW1 ([facility]) Cetirizine HCl 10 MG UNK 07/29/2020 12:00:00 AM EST suspended Cetirizine HCl 10 MG eCW1 ([facility]) Cetirizine HCl 10 MG UNK 07/29/2020 12:00:00 AM EST suspended Cetirizine HCl 10 MG eCW1 ([facility]) 0.025 % 07/29/2020 12:00:00 AM EST cream 15 APPLY THIN LAYER TO AFFECTED AREAS ON BOTH LEGS TWO TIMES A DAY NEEDED APPLY THIN LAYER TO AFFECTED AREAS ON BOTH LEGS TWO TIMES A DAY NEEDED SOLD: 07/29/2020 [facility] Cetirizine HCl 10 MG UNK 07/29/2020 12:00:00 AM EST suspended Cetirizine HCl 10 MG eCW1 ([facility]) Cetirizine HCl 10 MG UNK 07/29/2020 12:00:00 AM EST active Cetirizine HCl 10 MG eCW1 ([facility]) Cetirizine HCl 10 MG UNK 07/29/2020 12:00:00 AM EST active Cetirizine HCl 10 MG eCW1 ([facility]) Fluocinolone Acetonide 0.25 MG/ML Topical Cream Fluoci nolone Acetonide 0.025 % Fluocinolone Acetonide 0.025 % 07/29/2020 12:00:00 AM EST suspended Fluocinolone Acetonide 0.025 % eCW1 ([facility]) Fluocinolone Acetonide 0.25 MG/ML Topical Cream Fluoci nolone Acetonide 0.025 % Fluocinolone Acetonide 0.025 % 07/29/2020 12:00:00 AM EST active Fluocinolone Acetonide 0.025 % eCW1 ([facility]) Fluocinolone Acetonide 0.25 MG/ML Topical Cream Fluoci nolone Acetonide 0.025 % Fluocinolone Acetonide 0.025 % 07/29/2020 12:00:00 AM EST suspended Fluocinolone Acetonide 0.025 % eCW1 ([facility]) 0.025 % 07/29/2020 12:00:00 AM EST cream [...] Fluocinolone Acetonide 0.025 % eCW1 ([facility]) Cetirizine HCl 10 MG UNK 07/29/2020 12:00:00 AM EST suspended Cetirizine HCl 10 MG eCW1 ([facility]) Cetirizine HCl 10 MG UNK 07/29/2020 12:00:00 AM EST active Cetirizine HCl 10 MG eCW1 ([facility]) Fluocinolone Acetonide 0.25 MG/ML Topical Cream Fluoci nolone Acetonide 0.025 % Fluocinolone Acetonide 0.025 % 07/29/2020 12:00:00 AM EST suspended Fluocinolone Acetonide 0.025 % eCW1 ([facility]) Cetirizine HCl 10 MG UNK 07/29/2020 12:00:00 AM EST active Cetirizine HCl 10 MG eCW1 ([facility]) Fluocinolone Acetonide 0.25 MG/ML Topical Cream Fluoci nolone Acetonide 0.025 % Fluocinolone Acetonide 0.025 % 07/29/2020 12:00:00 AM EST active Fluocinolone Acetonide 0.025 % eCW1 ([facility]) Cetirizine HCl 10 MG UNK 07/29/2020 12:00:00 AM EST active Cetirizine HCl 10 MG eCW1 ([facility]) Cetirizine HCl 10 MG UNK 07/29/2020 12:00:00 AM EST active Cetirizine HCl 10 MG eCW1 ([facility]) Fluocinolone Acetonide 0.25 MG/ML Topical Cream Fluoci nolone Acetonide 0.025 % Fluocinolone Acetonide 0.025 % 07/29/2020 12:00:00 AM EST active Fluocinolone Acetonide 0.025 % eCW1 ([facility]) Fluocinolone Acetonide 0.25 MG/ML Topical Cream Fluoci nolone Acetonide 0.025 % Fluocinolone Acetonide 0.025 % 07/29/2020 12:00:00 AM EST active Fluocinolone Acetonide 0.025 % eCW1 ([facility]) Cetirizine HCl 10 MG UNK 07/29/2020 12:00:00 AM EST active Cetirizine HCl 10 MG eCW1 ([facility]) Fluocinolone Acetonide 0.25 MG/ML Topical Cream Fluoci nolone Acetonide 0.025 % Fluocinolone Acetonide 0.025 % 07/29/2020 12:00:00 AM EST active Fluocinolone Acetonide 0.025 % eCW1 ([facility]) 0.025 % 07/29/2020 12:00:00 AM EST cream [...] Fluocinolone Acetonide 0.025 % eCW1 ([facility]) Cetirizine HCl 10 MG UNK 07/29/2020 12:00:00 AM EST active Cetirizine HCl 10 MG eCW1 ([facility]) Fluocinolone Acetonide 0.25 MG/ML Topical Cream Fluoci nolone Acetonide 0.025 % Fluocinolone Acetonide 0.025 % 07/29/2020 12:00:00 AM EST active Fluocinolone Acetonide 0.025 % eCW1 ([facility]) Cetirizine HCl 10 MG UNK 07/29/2020 12:00:00 AM EST active Cetirizine HCl 10 MG eCW1 ([facility]) Cetirizine HCl 10 MG UNK 07/29/2020 12:00:00 AM EST suspended Cetirizine HCl 10 MG eCW1 ([facility]) Fluocinolone Acetonide 0.25 MG/ML Topical Cream Fluoci nolone Acetonide 0.025 % Fluocinolone Acetonide 0.025 % 07/29/2020 12:00:00 AM EST active Fluocinolone Acetonide 0.025 % eCW1 ([facility]) Fluocinolone Acetonide 0.25 MG/ML Topical Cream Fluoci nolone Acetonide 0.025 % Fluocinolone Acetonide 0.025 % 07/29/2020 12:00:00 AM EST active Fluocinolone Acetonide 0.025 % eCW1 ([facility]) Fluocinolone Acetonide 0.25 MG/ML Topical Cream Fluoci nolone Acetonide 0.025 % Fluocinolone Acetonide 0.025 % 07/29/2020 12:00:00 AM EST active Fluocinolone Acetonide 0.025 % eCW1 ([facility]) Fluocinolone Acetonide 0.25 MG/ML Topical Cream Fluoci nolone Acetonide 0.025 % Fluocinolone Acetonide 0.025 % 07/29/2020 12:00:00 AM EST active Fluocinolone Acetonide 0.025 % eCW1 ([facility]) Cetirizine HCl 10 MG UNK 07/29/2020 12:00:00 AM EST active Cetirizine HCl 10 MG eCW1 ([facility]) 0.025 % 07/29/2020 12:00:00 AM EST cream [...] Fluocinolone Acetonide 0.025 % eCW1 ([facility]) Fluocinolone Acetonide 0.25 MG/ML Topical Cream Fluoci nolone Acetonide 0.025 % Fluocinolone Acetonide 0.025 % 07/29/2020 12:00:00 AM EST active Fluocinolone Acetonide 0.025 % eCW1 ([facility]) Cetirizine HCl 10 MG UNK 07/29/2020 12:00:00 AM EST active Cetirizine HCl 10 MG eCW1 ([facility]) Fluocinolone Acetonide 0.25 MG/ML Topical Cream Fluoci nolone Acetonide 0.025 % Fluocinolone Acetonide 0.025 % 07/29/2020 12:00:00 AM EST active Fluocinolone Acetonide 0.025 % eCW1 ([facility]) Cetirizine HCl 10 MG UNK 07/29/2020 12:00:00 AM EST suspended Cetirizine HCl 10 MG eCW1 ([facility]) Fluocinolone Acetonide 0.25 MG/ML Topical Cream Fluoci nolone Acetonide 0.025 % Fluocinolone Acetonide 0.025 % 07/29/2020 12:00:00 AM EST active Fluocinolone Acetonide 0.025 % eCW1 ([facility]) Cetirizine HCl 10 MG UNK 07/29/2020 12:00:00 AM EST suspended Cetirizine HCl 10 MG eCW1 ([facility]) Cetirizine HCl 10 MG UNK 07/29/2020 12:00:00 AM EST suspended Cetirizine HCl 10 MG eCW1 ([facility]) Fluocinolone Acetonide 0.25 MG/ML Topical Cream Fluoci nolone Acetonide 0.025 % Fluocinolone Acetonide 0.025 % 07/29/2020 12:00:00 AM EST active Fluocinolone Acetonide 0.025 % eCW1 ([facility]) Cetirizine HCl 10 MG UNK 07/29/2020 12:00:00 AM EST active Cetirizine HCl 10 MG eCW1 ([facility]) Cetirizine HCl 10 MG UNK 07/29/2020 12:00:00 AM EST suspended Cetirizine HCl 10 MG eCW1 ([facility]) Fluocinolone Acetonide 0.25 MG/ML Topical Cream Fluoci nolone Acetonide 0.025 % Fluocinolone Acetonide 0.025 % 07/29/2020 12:00:00 AM EST suspended Fluocinolone Acetonide 0.025 % eCW1 ([facility]) Fluocinolone Acetonide 0.25 MG/ML Topical Cream Fluoci nolone Acetonide 0.025 % Fluocinolone Acetonide 0.025 % 07/29/2020 12:00:00 AM EST active Fluocinolone Acetonide 0.025 % eCW1 ([facility]) Cetirizine HCl 10 MG UNK 07/29/2020 12:00:00 AM EST active Cetirizine HCl 10 MG eCW1 ([facility]) 10 mg 07/29/2020 12:00:00 AM EST tablet 30 TAKE ONE TABLET BY MOUTH AT BEDTIME TAKE ONE TABLET BY MOUTH AT BEDTIME SOLD: 08/31/2020 [facility] Cetirizine HCl 10 MG UNK 07/29/2020 12:00:00 AM EST active Cetirizine HCl 10 MG eCW1 ([facility]) cetirizine hydrochloride 10 MG Chewable Tablet Cetiriz ine HCl 10 MG Cetirizine HCl 10 MG 07/29/2020 12:00:00 AM EST 1.0 {tablet} ac tive Cetirizine HCl 10 MG eCW1 ([facility]) Cetirizine HCl 10 MG UNK 07/29/2020 12:00:00 AM EST active Cetirizine HCl 10 MG eCW1 ([facility]) cetirizine hydrochloride 10 MG Chewable Tablet Cetiriz ine HCl 10 MG Cetirizine HCl 10 MG 07/29/2020 12:00:00 AM EST 1.0 {tablet} ac tive Cetirizine HCl 10 MG eCW1 ([facility]) cetirizine hydrochloride 10 MG Chewable Tablet Cetiriz ine HCl 10 MG Cetirizine HCl 10 MG 07/29/2020 12:00:00 AM EST 1.0 {tablet} ac tive Cetirizine HCl 10 MG eCW1 ([facility]) Fluocinolone Acetonide 0.25 MG/ML Topical Cream Fluoci nolone Acetonide 0.025 % Fluocinolone Acetonide 0.025 % 07/29/2020 12:00:00 AM EST active Fluocinolone Acetonide 0.025 % eCW1 ([facility]) Fluocinolone Acetonide 0.25 MG/ML Topical Cream Fluoci nolone Acetonide 0.025 % Fluocinolone Acetonide 0.025 % 07/29/2020 12:00:00 AM EST suspended Fluocinolone Acetonide 0.025 % eCW1 ([facility]) Cetirizine HCl 10 MG UNK 07/29/2020 12:00:00 AM EST active Cetirizine HCl 10 MG eCW1 ([facility]) 0.025 % 07/29/2020 12:00:00 AM EST cream [...] Fluocinolone Acetonide 0.025 % eCW1 ([facility]) Cetirizine HCl 10 MG UNK 07/29/2020 12:00:00 AM EST suspended Cetirizine HCl 10 MG eCW1 ([facility]) Cetirizine HCl 10 MG UNK 07/29/2020 12:00:00 AM EST active Cetirizine HCl 10 MG eCW1 ([facility]) Fluocinolone Acetonide 0.25 MG/ML Topical Cream Fluoci nolone Acetonide 0.025 % Fluocinolone Acetonide 0.025 % 07/29/2020 12:00:00 AM EST suspended Fluocinolone Acetonide 0.025 % eCW1 ([facility]) 625 mg 07/24/2020 12:00:00 AM EST tablet [...] 07/22/2020 12:00:00 AM EST ORAL active MEDENT ([facility], ) 20 mg 07/16/2020 12:00:00 AM [...] active Voltaren 1 % eCW1 ([facility]) Diclofenac Sodium 0.01 MG/MG Topical Gel [Voltaren] Voltaren 1 % Voltaren 1 % 07/09/2020 12:00:00 AM EDT active Voltaren 1 % eCW1 ([facility]) Diclofenac Sodium 0.01 MG/MG Topical Gel [Voltaren] Voltaren 1 % Voltaren 1 % 07/09/2020 12:00:00 AM EDT active Voltaren 1 % eCW1 ([facility]) Diclofenac Sodium 0.01 MG/MG Topical Gel [Voltaren] Voltaren 1 % Voltaren 1 % 07/09/2020 12:00:00 AM EDT active Voltaren 1 % eCW1 ([facility]) Diclofenac Sodium 0.01 MG/MG Topical Gel [Voltaren] Voltaren 1 % Voltaren 1 % 07/09/2020 12:00:00 AM EDT suspended Voltaren 1 % eCW1 ([facility]) Diclofenac Sodium 0.01 MG/MG Topical Gel [Voltaren] Voltaren 1 % Voltaren 1 % 07/09/2020 12:00:00 AM EDT active Voltaren 1 % eCW1 ([facility]) Diclofenac Sodium 0.01 MG/MG Topical Gel [Voltaren] Voltaren 1 % Voltaren 1 % 07/09/2020 12:00:00 AM EDT active Voltaren 1 % eCW1 ([facility]) Diclofenac Sodium 0.01 MG/MG Topical Gel [Voltaren] Voltaren 1 % Voltaren 1 % 07/09/2020 12:00:00 AM EDT active Voltaren 1 % eCW1 ([facility]) Diclofenac Sodium 0.01 MG/MG Topical Gel [Voltaren] Voltaren 1 % Voltaren 1 % 07/09/2020 12:00:00 AM EDT suspended Voltaren 1 % eCW1 ([facility]) Diclofenac Sodium 0.01 MG/MG Topical Gel [Voltaren] Voltaren 1 % Voltaren 1 % 07/09/2020 12:00:00 AM EDT suspended Voltaren 1 % eCW1 ([facility]) Diclofenac Sodium 0.01 MG/MG Topical Gel [Voltaren] Voltaren 1 % Voltaren 1 % 07/09/2020 12:00:00 AM EDT active Voltaren 1 % eCW1 ([facility]) Diclofenac Sodium 0.01 MG/MG Topical Gel [Voltaren] Voltaren 1 % Voltaren 1 % 07/09/2020 12:00:00 AM EDT suspended Voltaren 1 % eCW1 ([facility]) Diclofenac Sodium 0.01 MG/MG Topical Gel [Voltaren] Voltaren 1 % Voltaren 1 % 07/09/2020 12:00:00 AM EDT active Voltaren 1 % eCW1 ([facility]) Diclofenac Sodium 0.01 MG/MG Topical Gel [Voltaren] Voltaren 1 % Voltaren 1 % 07/09/2020 12:00:00 AM EDT active Voltaren 1 % eCW1 ([facility]) Diclofenac Sodium 0.01 MG/MG Topical Gel [Voltaren] Voltaren 1 % Voltaren 1 % 07/09/2020 12:00:00 AM EDT active Voltaren 1 % eCW1 ([facility]) Diclofenac Sodium 0.01 MG/MG Topical Gel [Voltaren] Voltaren 1 % Voltaren 1 % 07/09/2020 12:00:00 AM EDT suspended Voltaren 1 % eCW1 ([facility]) Diclofenac Sodium 0.01 MG/MG Topical Gel [Voltaren] Voltaren 1 % Voltaren 1 % 07/09/2020 12:00:00 AM EDT active Voltaren 1 % eCW1 ([facility]) Diclofenac Sodium 0.01 MG/MG Topical Gel [Voltaren] Voltaren 1 % Voltaren 1 % 07/09/2020 12:00:00 AM EDT active Voltaren 1 % eCW1 ([facility]) Diclofenac Sodium 0.01 MG/MG Topical Gel [Voltaren] Voltaren 1 % Voltaren 1 % 07/09/2020 12:00:00 AM EDT active Voltaren 1 % eCW1 ([facility]) Diclofenac Sodium 0.01 MG/MG Topical Gel [Voltaren] Voltaren 1 % Voltaren 1 % 07/09/2020 12:00:00 AM EDT active Voltaren 1 % eCW1 ([facility]) Diclofenac Sodium 0.01 MG/MG Topical Gel [Voltaren] Voltaren 1 % Voltaren 1 % 07/09/2020 12:00:00 AM EDT active Voltaren 1 % eCW1 ([facility]) Diclofenac Sodium 0.01 MG/MG Topical Gel [Voltaren] Voltaren 1 % Voltaren 1 % 07/09/2020 12:00:00 AM EDT active Voltaren 1 % eCW1 ([facility]) Diclofenac Sodium 0.01 MG/MG Topical Gel [Voltaren] Voltaren 1 % Voltaren 1 % 07/09/2020 12:00:00 AM EDT active Voltaren 1 % eCW1 ([facility]) Diclofenac Sodium 0.01 MG/MG Topical Gel [Voltaren] Voltaren 1 % Voltaren 1 % 07/09/2020 12:00:00 AM EDT suspended Voltaren 1 % eCW1 ([facility]) Diclofenac Sodium 0.01 MG/MG Topical Gel [Voltaren] Voltaren 1 % Voltaren 1 % 07/09/2020 12:00:00 AM EDT active Voltaren 1 % eCW1 ([facility]) Diclofenac Sodium 0.01 MG/MG Topical Gel [Voltaren] Voltaren 1 % Voltaren 1 % 07/09/2020 12:00:00 AM EDT active Voltaren 1 % eCW1 ([facility]) Diclofenac Sodium 0.01 MG/MG Topical Gel [Voltaren] Voltaren 1 % Voltaren 1 % 07/09/2020 12:00:00 AM EDT suspended Voltaren 1 % eCW1 ([facility]) Diclofenac Sodium 0.01 MG/MG Topical Gel [Voltaren] Voltaren 1 % Voltaren 1 % 07/09/2020 12:00:00 AM EDT active Voltaren 1 % eCW1 ([facility]) Diclofenac Sodium 0.01 MG/MG Topical Gel [Voltaren] Voltaren 1 % Voltaren 1 % 07/09/2020 12:00:00 AM EDT suspended Voltaren 1 % eCW1 ([facility]) Diclofenac Sodium 0.01 MG/MG Topical Gel [Voltaren] Voltaren 1 % Voltaren 1 % 07/09/2020 12:00:00 AM EDT active Voltaren 1 % eCW1 ([facility]) Diclofenac Sodium 0.01 MG/MG Topical Gel [Voltaren] Voltaren 1 % Voltaren 1 % 07/09/2020 12:00:00 AM EDT active Voltaren 1 % eCW1 ([facility]) Diclofenac Sodium 0.01 MG/MG Topical Gel [Voltaren] Voltaren 1 % Voltaren 1 % 07/09/2020 12:00:00 AM EDT suspended Voltaren 1 % eCW1 ([facility]) Diclofenac Sodium 0.01 MG/MG Topical Gel [Voltaren] Voltaren 1 % Voltaren 1 % 07/09/2020 12:00:00 AM EDT suspended Voltaren 1 % eCW1 ([facility]) Diclofenac Sodium 0.01 MG/MG Topical Gel [Voltaren] Voltaren 1 % Voltaren 1 % 07/09/2020 12:00:00 AM EDT active Voltaren 1 % eCW1 ([facility]) Diclofenac Sodium 0.01 MG/MG Topical Gel [Voltaren] Voltaren 1 % Voltaren 1 % 07/09/2020 12:00:00 AM EDT active Voltaren 1 % eCW1 ([facility]) Diclofenac Sodium 0.01 MG/MG Topical Gel [Voltaren] Voltaren 1 % Voltaren 1 % 07/09/2020 12:00:00 AM EDT active Voltaren 1 % eCW1 ([facility]) Diclofenac Sodium 0.01 MG/MG Topical Gel [Voltaren] Voltaren 1 % Voltaren 1 % 07/09/2020 12:00:00 AM EDT suspended Voltaren 1 % eCW1 ([facility]) Diclofenac Sodium 0.01 MG/MG Topical Gel [Voltaren] Voltaren 1 % Voltaren 1 % 07/09/2020 12:00:00 AM EDT active Voltaren 1 % eCW1 ([facility]) Diclofenac Sodium 0.01 MG/MG Topical Gel [Voltaren] Voltaren 1 % Voltaren 1 % 07/09/2020 12:00:00 AM EDT suspended Voltaren 1 % eCW1 ([facility]) Diclofenac Sodium 0.01 MG/MG Topical Gel [Voltaren] Voltaren 1 % Voltaren 1 % 07/09/2020 12:00:00 AM EDT active Voltaren 1 % eCW1 ([facility]) Diclofenac Sodium 0.01 MG/MG Topical Gel [Voltaren] Voltaren 1 % Voltaren 1 % 07/09/2020 12:00:00 AM EDT active Voltaren 1 % eCW1 ([facility]) Diclofenac Sodium 0.01 MG/MG Topical Gel [Voltaren] Voltaren 1 % Voltaren 1 % 07/09/2020 12:00:00 AM EDT suspended Voltaren 1 % eCW1 ([facility]) Diclofenac Sodium 0.01 MG/MG Topical Gel [Voltaren] Voltaren 1 % Voltaren 1 % 07/09/2020 12:00:00 AM EDT active Voltaren 1 % eCW1 ([facility]) Diclofenac Sodium 0.01 MG/MG Topical Gel [Voltaren] Voltaren 1 % Voltaren 1 % 07/09/2020 12:00:00 AM EDT suspended Voltaren 1 % eCW1 ([facility]) Diclofenac Sodium 0.01 MG/MG Topical Gel [Voltaren] Voltaren 1 % Voltaren 1 % 07/09/2020 12:00:00 AM EDT active Voltaren 1 % eCW1 ([facility]) Atropine Sulfate 0.025 MG / Diphenoxylate Hydrochlorid e 2.5 MG Oral Tablet Diphenoxylate Hydrochloride/Atropine Sulfate 07/02/2020 12:00:00 AM EDT ORAL active MEDENT ([facility]) pantoprazole 40 MG [...] Ci pro 250 MG eCW1 ([facility]) Ciprofloxacin 250 MG Oral Tablet [Cipro] Cipro 250 MG Cipro 250 MG 06/23/2020 12:00:00 AM EDT 1.0 {tablet} active Ci pro 250 MG eCW1 ([facility]) Ciprofloxacin 250 MG Oral Tablet [Cipro] Cipro 250 MG Cipro 250 MG 06/23/2020 12:00:00 AM EDT 1.0 {tablet} suspended Cipro 250 MG eCW1 ([facility]) Ciprofloxacin 250 MG Oral Tablet [Cipro] Cipro 250 MG Cipro 250 MG 06/23/2020 12:00:00 AM EDT 1.0 {tablet} suspended Cipro 250 MG eCW1 ([facility]) Ciprofloxacin 250 MG Oral Tablet [Cipro] Cipro 250 MG Cipro 250 MG 06/23/2020 12:00:00 AM EDT 1.0 {tablet} active Ci pro 250 MG eCW1 ([facility]) Ciprofloxacin 250 MG Oral Tablet [Cipro] Cipro 250 MG Cipro 250 MG 06/23/2020 12:00:00 AM EDT 1.0 {tablet} suspended Cipro 250 MG eCW1 ([facility]) Ciprofloxacin 250 MG Oral Tablet [Cipro] Cipro 250 MG Cipro 250 MG 06/23/2020 12:00:00 AM EDT 1.0 {tablet} suspended Cipro 250 MG eCW1 ([facility]) Ciprofloxacin 250 MG Oral Tablet [Cipro] Cipro 250 MG Cipro 250 MG 06/23/2020 12:00:00 AM EDT 1.0 {tablet} suspended Cipro 250 MG eCW1 ([facility]) Ciprofloxacin 250 MG Oral Tablet [Cipro] Cipro 250 MG Cipro 250 MG 06/23/2020 12:00:00 AM EDT 1.0 {tablet} suspended Cipro 250 MG eCW1 ([facility]) Ciprofloxacin 250 MG Oral Tablet [Cipro] Cipro 250 MG Cipro 250 MG 06/23/2020 12:00:00 AM EDT 1.0 {tablet} suspended Cipro 250 MG eCW1 ([facility]) Ciprofloxacin 250 MG Oral Tablet [Cipro] Cipro 250 MG Cipro 250 MG 06/23/2020 12:00:00 AM EDT 1.0 {tablet} active Ci pro 250 MG eCW1 ([facility]) Ciprofloxacin 250 MG Oral Tablet [Cipro] Cipro 250 MG Cipro 250 MG 06/23/2020 12:00:00 AM EDT 1.0 {tablet} active Ci pro 250 MG eCW1 ([facility]) Ciprofloxacin 250 MG Oral Tablet [Cipro] Cipro 250 MG Cipro 250 MG 06/23/2020 12:00:00 AM EDT 1.0 {tablet} active Ci pro 250 MG eCW1 ([facility]) Ciprofloxacin 250 MG Oral Tablet [Cipro] Cipro 250 MG Cipro 250 MG 06/23/2020 12:00:00 AM EDT 1.0 {tablet} active Ci pro 250 MG eCW1 ([facility]) Ciprofloxacin 250 MG Oral Tablet [Cipro] Cipro 250 MG Cipro 250 MG 06/23/2020 12:00:00 AM EDT 1.0 {tablet} suspended Cipro 250 MG eCW1 ([facility]) Ciprofloxacin 250 MG Oral Tablet [Cipro] Cipro 250 MG Cipro 250 MG 06/23/2020 12:00:00 AM EDT 1.0 {tablet} suspended Cipro 250 MG eCW1 ([facility]) Ciprofloxacin 250 MG Oral Tablet [Cipro] Cipro 250 MG Cipro 250 MG 06/23/2020 12:00:00 AM EDT 1.0 {tablet} active Ci pro 250 MG [facility] [facility]) Ciprofloxacin 250 MG Oral Tablet [Cipro] Cipro 250 MG Cipro 250 MG 06/23/2020 12:00:00 AM EDT 1.0 {tablet} suspended Cipro 250 MG eCW1 ([facility]) Ciprofloxacin 250 MG Oral Tablet [Cipro] Cipro 250 MG Cipro 250 MG 06/23/2020 12:00:00 AM EDT 1.0 {tablet} suspended Cipro 250 MG eCW1 ([facility]) Ciprofloxacin 250 MG Oral Tablet [Cipro] Cipro 250 MG Cipro 250 MG 06/23/2020 12:00:00 AM EDT 1.0 {tablet} suspended Cipro 250 MG eCW1 ([facility]) Ciprofloxacin 250 MG Oral Tablet [Cipro] Cipro 250 MG Cipro 250 MG 06/23/2020 12:00:00 AM EDT 1.0 {tablet} active Ci pro 250 MG eCW1 ([facility]) Ciprofloxacin 250 MG Oral Tablet [Cipro] Cipro 250 MG Cipro 250 MG 06/23/2020 12:00:00 AM EDT 1.0 {tablet} active Ci pro 250 MG eCW1 ([facility]) Ciprofloxacin 250 MG Oral Tablet [Cipro] Cipro 250 MG Cipro 250 MG 06/23/2020 12:00:00 AM EDT 1.0 {tablet} suspended Cipro 250 MG eCW1 ([facility]) Ciprofloxacin 250 MG Oral Tablet [Cipro] Cipro 250 MG Cipro 250 MG 06/23/2020 12:00:00 AM EDT 1.0 {tablet} suspended Cipro 250 MG eCW1 ([facility]) Ciprofloxacin 250 MG Oral Tablet [Cipro] Cipro 250 MG Cipro 250 MG 06/23/2020 12:00:00 AM EDT 1.0 {tablet} suspended Cipro 250 MG eCW1 ([facility]) Ciprofloxacin 250 MG Oral Tablet [Cipro] Cipro 250 MG Cipro 250 MG 06/23/2020 12:00:00 AM EDT 1.0 {tablet} suspended Cipro 250 MG eCW1 ([facility]) Ciprofloxacin 250 MG Oral Tablet [Cipro] Cipro 250 MG Cipro 250 MG 06/23/2020 12:00:00 AM EDT 1.0 {tablet} suspended Cipro 250 MG eCW1 ([facility]) Ciprofloxacin 250 MG Oral Tablet [Cipro] Cipro 250 MG Cipro 250 MG 06/23/2020 12:00:00 AM EDT 1.0 {tablet} active Ci pro 250 MG eCW1 ([facility]) Ciprofloxacin 250 MG Oral Tablet [Cipro] Cipro 250 MG Cipro 250 MG 06/23/2020 12:00:00 AM EDT 1.0 {tablet} active Ci pro 250 MG eCW1 ([facility]) Ciprofloxacin 250 MG Oral Tablet [Cipro] Cipro 250 MG Cipro 250 MG 06/23/2020 12:00:00 AM EDT 1.0 {tablet} suspended Cipro 250 MG eCW1 ([facility]) Ciprofloxacin 250 MG Oral Tablet [Cipro] Cipro 250 MG Cipro 250 MG 06/23/2020 12:00:00 AM EDT 1.0 {tablet} suspended Cipro 250 MG eCW1 ([facility]) Ciprofloxacin 250 MG Oral Tablet [Cipro] Cipro 250 MG Cipro 250 MG 06/23/2020 12:00:00 AM EDT 1.0 {tablet} active Ci pro 250 MG eCW1 ([facility]) Ciprofloxacin 250 MG Oral Tablet [Cipro] Cipro 250 MG Cipro 250 MG 06/23/2020 12:00:00 AM EDT 1.0 {tablet} active Ci pro 250 MG eCW1 ([facility]) Ciprofloxacin 250 MG Oral Tablet [Cipro] Cipro 250 MG Cipro 250 MG 06/23/2020 12:00:00 AM EDT 1.0 {tablet} suspended Cipro 250 MG eCW1 ([facility]) Ciprofloxacin 250 MG Oral Tablet [Cipro] Cipro 250 MG Cipro 250 MG 06/23/2020 12:00:00 AM EDT 1.0 {tablet} active Ci pro 250 MG eCW1 ([facility]) Ciprofloxacin 250 MG Oral Tablet [Cipro] Cipro 250 MG Cipro 250 MG 06/23/2020 12:00:00 AM EDT 1.0 {tablet} suspended Cipro 250 MG eCW1 ([facility]) Ciprofloxacin 250 MG Oral Tablet [Cipro] Cipro 250 MG Cipro 250 MG 06/23/2020 12:00:00 AM EDT 1.0 {tablet} active Ci pro 250 MG eCW1 ([facility]) Ciprofloxacin 250 MG Oral Tablet [Cipro] Cipro 250 MG Cipro 250 MG 06/23/2020 12:00:00 AM EDT 1.0 {tablet} active Ci pro 250 MG eCW1 ([facility]) Ciprofloxacin 250 MG Oral Tablet [Cipro] Cipro 250 MG Cipro 250 MG 06/23/2020 12:00:00 AM EDT 1.0 {tablet} active Ci pro 250 MG eCW1 ([facility]) Ciprofloxacin 250 MG Oral Tablet [Cipro] Cipro 250 MG Cipro 250 MG 06/23/2020 12:00:00 AM EDT 1.0 {tablet} active Ci pro 250 MG eCW1 ([facility]) Ciprofloxacin 250 MG Oral Tablet [Cipro] Cipro 250 MG Cipro 250 MG 06/23/2020 12:00:00 AM EDT 1.0 {tablet} active Ci pro 250 MG eCW1 ([facility]) 250 mg 06/23/2020 12:00:00 AM EDT tablet 6 TAKE ONE TABLET BY MOUTH EVERY 12 HOURS FOR 3 DAYS TAKE ONE TABLET BY MOUTH EVERY 12 HOURS FOR 3 DAYS [facility] Ciprofloxacin 250 MG Oral Tablet [Cipro] Cipro 250 MG Cipro 250 MG 06/23/2020 12:00:00 AM EDT 1.0 {tablet} suspended Cipro 250 MG eCW1 ([facility]) Ciprofloxacin 250 MG Oral Tablet [Cipro] Cipro 250 MG Cipro 250 MG 06/23/2020 12:00:00 AM EDT 1.0 {tablet} active Ci pro 250 MG eCW1 ([facility]) Ciprofloxacin 250 MG Oral Tablet [Cipro] Cipro 250 MG Cipro 250 MG 06/23/2020 12:00:00 AM EDT 1.0 {tablet} active Ci pro 250 MG eCW1 ([facility]) Ciprofloxacin 250 MG Oral Tablet [Cipro] Cipro 250 MG Cipro 250 MG 06/23/2020 12:00:00 AM EDT 1.0 {tablet} active Ci pro 250 MG eCW1 ([facility]) Ciprofloxacin 250 MG Oral Tablet [Cipro] Cipro 250 MG Cipro 250 MG 06/23/2020 12:00:00 AM EDT 1.0 {tablet} active Ci pro 250 MG eCW1 ([facility]) 100 million cell 06/22/2020 12:00:00 AM EDT [...] type / Coverage type Policy ID Covered democrat ID Covered democrat's relationship to padilla Policy Padilla Plan Information [place] [id number] SP [id number] WELLNESS CONNECTION [id number] [place] [id number] JUAQUIN ESIS [facility] [place] W [id number] Empl [id number] ESIS-JUA[employer] [facility] [id number] SP [id number] Esis Workers Compensation [id number] Self CSP OF [place] [id number] SP [id number] ESIS[employer] [facility] [id number] SP [id number] Esis (WC) Workers Compensation [id number] Self 3 [id number] Esis (WC) Workers Compensation [id number] Self 3 [id number] Esis (WC) Workers Compensation [id number] Self 3 [id number] Esis (WC) Workers Compensation [id number] Self 3 [id number] Esis (WC) Workers Compensation [id number] Self 3 [id number] Esis (WC) Workers Compensation [id number] Self 3 [id number] [facility] I [id number] Self [id number] [facility] Community Plan Commercial [id number] Self [id number] [facility] COMMUNITY PLAN MCDO [id number] SP [id number] [facility] COMMUNITY PLAN MCDO [id number] SP [id number] [employer] [facility] [employer]. [id number] Self [id number] ANSI-Not a Secondary Insurance [id number] ANSI-Medicaid [id number] ANSI-Not a Secondary Insurance [id number] ANSI-Medicaid [id number] ANSI-Medicaid [id number] ANSI-Medicaid [id number] ANSI-Not a Secondary Insurance [id number] ANSI-Not a Secondary Insurance [id number] ANSI-Medicaid [id number] ANSI-Medicaid [id number] ANSI-Medicaid [id number] ANSI-Medicaid [id number] ANSI-Not a Secondary Insurance [id number]-4eg4-[id number] ANSI-Not a Secondary Insurance [id number] ANSI-Medicaid [id number] ANSI-Medicaid [id number] ANSI-Medicaid [id number] ANSI-Not a Secondary Insurance [id number]-js9w-253j2 [id number]-aj4m-[id number] ANSI-Medicaid [id number] ANSI-Medicaid [id number] ANSI-Medicaid [id number] ANSI-Not a Secondary Insurance [id number]-[id number] ANSI-Medicaid [id number] ANSI-Not a Secondary Insurance [id number] ANSI-Medicaid [id number] ANSI-Medicaid [id number] ANSI-Not a Secondary Insurance [id number]-[id number]-x4gl-[id number]-481y-[id number] ANSI-Medicaid [id number] ANSI-Medicaid [id number] ANSI-Medicaid [id number] ANSI-Not a Secondary Insurance [id number]-979y-[id number]-r36wn [id number]-819m-80o9-765f-[id number] ANSI-Medicaid [id number]-[id number] ANSI-Not a Secondary Insurance [id number] [id number] [id number]-aj9o-067i-[id number] ANSI-Medicaid [id number] ANSI-Medicaid [id number] ANSI-Medicaid [id number] ANSI-Not a Secondary Insurance [id number]-53r4-99hi-[id number]-32a7-41ds-[id number] ANSI-Medicaid [id number] ANSI-Medicaid [id number]-0ti2-41t2-[id number] ANSI-Not a Secondary Insurance [id number]-yks8-58ln-d956-dmhvy [id number] [id number]-pio4-99ab-g056-ntjsujujn795 ANSI-Medicaid [id number] ANSI-Not a Secondary Insurance [id number]-x9y7-[id number] [id number]-o8r4-[id number] ANSI-Medicaid [id number] ANSI-Medicaid [id number] ANSI-Not a Secondary Insurance [id number]-96ij-8a4a-uj20t iv86akj [id number]-03ah-7p4l-hw29efz07gyz ANSI-Medicaid [id number] ANSI-Medicaid [id number] ANSI-Medicaid [id number] ANSI-Not a Secondary Insurance [id number]-sh85-[id number] [id number]-[id number] ANSI-Medicaid [id number] ANSI-Medicaid [id number] ANSI-Not a Secondary Insurance [id number] [id number] [id number]-mc3i-[id number] ANSI-Not a Secondary Insurance [id number]-8296-f99t-r23q4 aj15gx4 [id number]-ub8z-8413-w96j-k94p7xl21ex8 ANSI-Medicaid [id number] ANSI-Medicaid [id number] ANSI-Not a Secondary Insurance [id number]-[id number] ANSI-Medicaid [id number]-286j-349m-2ceo2i4h58m2 ANSI-Medicaid [id number] ANSI-Medicaid [id number] ANSI-Medicaid [id number]-[id number] ANSI-Not a Secondary Insurance [id number]-8d99-c4s3-17a4n [id number]-4n24-f2x6-14m4pjna06h6 ANSI-Medicaid [id number] ANSI-Medicaid [id number] ANSI-Not a Secondary Insurance [id number] ANSI-Medicaid [id number] ANSI-Medicaid [id number] ANSI-Not a Secondary Insurance [id number]-qyk80 [id number]-t26e-0448-o9mg-[id number] ANSI-Medicaid [id number] ANSI-Not a Secondary Insurance [id number]-x4m4-1yh0z [id number]-[id number] ANSI-Medicaid [id number] ANSI-Not a Secondary Insurance [id number]-[id number]-738r-[id number] ANSI-Medicaid [id number] ANSI-Medicaid [id number] ANSI-Medicaid [id number] ANSI-Not a Secondary Insurance [id number] [id number]-676b-[id number] ANSI-Medicaid [id number] [facility] Health Maintenance Organization (HMO) [id number] Self [id number] ANSI-Medicaid [id number] ANSI-Not a Secondary Insurance [id number]-[id number] [id number]-xc77-0bt8-99mn-[id number] ANSI-Medicaid [id number] ANSI-Medicaid [id number] ANSI-Medicaid [id number] ANSI-Not a Secondary Insurance [id number]-5zjd-t006-lx135 [id number]-6gzd-o452-ac528to5qg7d ANSI-Medicaid [id number] ANSI-Not a Secondary Insurance [id number]-n3yq-3o8ev [id number]-a5qo-[id number] ANSI-Medicaid [id number] ANSI-Medicaid [id number] ANSI-Not a Secondary Insurance [id number]-[id number]-[id number] [id number]-la92-9s84-289x-[id number] ANSI-Medicaid [id number]-[id number] ANSI-Medicaid [id number] ANSI-Not a Secondary Insurance 3fsr7jww-85x2-39s1-o712-gnntw [id number] 2pec3zqi-77t7-24b8-p029-dfsuo5u7v4o1 ANSI-Medicaid [id number] ANSI-Medicaid [id number] ANSI-Medicaid [id number] ANSI-Not a Secondary Insurance [id number] [id number]-[id number]-[id number] [facility] Health Maintenance Organization (HMO) [id number] Self [id number] ANSI-Medicaid [id number] ANSI-Medicaid [id number] ANSI-Not a Secondary Insurance [id number]-lz838 [id number] ANSI-Not a Secondary Insurance [id number]-71p7-7431-8wat-b2s91 [id number]-[id number] ANSI-Medicaid [id number] ANSI-Medicaid [id number] [facility] [id number] [id number] Preferred Provider Organization (PPO) [id number] ANSI-Not a Secondary Insurance [id number]-2b05-47lrl [id number]-9050-75yd-[id number] ANSI-Medicaid [id number]-[id number] ANSI-Medicaid [id number] ANSI-Not a Secondary Insurance [id number] ANSI-Medicaid [id number] ANSI-Medicaid [id number] ANSI-Medicaid [id number] ANSI-Not a Secondary Insurance [id number] ANSI-Medicaid [id number] [facility] Health Maintenance Organization (HMO) [id number] Self [id number] [facility] Health Maintenance Organization (HMO) [id number] Self [id number] [facility] Health Maintenance Organization (HMO) [id number] Self [id number] [facility] Health Maintenance Organization (HMO) [id number] Self [id number] [facility] Health Maintenance Organization (O) [id number] Self [id number] [facility] CLAIMS DOES NOT APPLY SP DOES NOT APPLY [employer] Medicaid Medicaid [id number] Self [id number] [employer] Medicaid Medicaid [id number] Self [facility] CLAIMS [id number] SP [id number] [facility] CLAIMS [id number] SP [id number] [facility] CLAIMS [id number] SP [id number] [facility] Commercial [id number] Self [facility] WC CLAIMS [id number] SP [id number] [facility] CLAIMS UNK SP [id number] [facility] CLAIMS [id number] SP [id number] [facility] [id number] SP [id number] Medicaid [place] Medicaid [id number] Self MEDICAID P [id number] S [id number] [employer] MANAGEMENT O UNAVAILABLE [id number] S UNAVAILABLE [employer] MANAGEMENT P [id number] S [id number] [employer] NF [id number] SP [id number] [employer] W.C. [id number] SP [id number] [facility] PROGRAM P [id number] S [id number] SELF PAY UNAVAILABLE SP UNAVAILA BLE [facility] P [id number] S [id number] [facility] [id number] SP [id number] [facility] PLAN MCDO [id number] SP [id number] [facility] CLAIMS [id number] SP [id number] [facility] CLAIMS [id number] SP [id number] [id number] SP [id number] [facility] CLAIMS [id number] SP [id number] [facility] CLAIMS [id number] [facility] [id number] SP [id number] [facility] CLAIMS [id number] SP [id number] [facility] O [id number] S [id number] SELF PAY ONLY [id number] SP [id number] MEDICAID [id number] SP [id number] [facility] [id number] SP [id number] [facility] WC CLAIMS [id number] SP [id number] ANSI-Medicaid [id number] ANSI-Not a Secondary Insurance [id number] ANSI-Medicaid [id number] ANSI-Medicaid [id number] ANSI-Medicaid [id number] Problems, Conditions, and Diagnoses Code Display Name Description Problem Type Effective Dates Data Source(s) R73.03 [id number] Pre-diabetes Problem 06/29/2021 12:00:00 AM EDT eCW1 ([facility]) M70.21 [id number] Olecranon bursitis of right elbow Prob yaima 06/29/2021 12:00:00 AM EDT eCW1 ([facility]) K76.0 168219449 NAFL (nonalcoholic fatty liver) Problem 06/28/2021 12:00:00 AM EDT eCW1 ([facility]) A60.00 42661941 Genital herpes simplex, unspecified site Problem 06/24/2021 12:00:00 AM EDT eCW1 ([facility]) J45.30 993995022 Mild persistent asthma without complicati on Problem 06/18/2021 12:00:00 AM EDT eCW1 ([facility]) J45.40 084903346 Moderate persistent asthma, unsp ecified whether complicated Problem 06/18/2021 12:00:00 AM EDT eCW1 ([facility]) K76.0 656309104 Hepatic steatosis Problem 06/01/2021 12:00:0 0 AM EDT eCW1 ([facility]) M50.10 607434697 Cervical disc disord er with radiculopathy, unspecified cervical region Problem 05/26/2021 12:00:00 AM EDT eCW1 ([facility]) R53.83 48254194 Fatigue, unspecified type Problem 02/19/2021 12:00:00 AM EDT eCW1 ([facility]) R35.0 896297181 Urinary frequency Problem 02/19/2021 12:00:0 0 AM EDT eCW1 ([facility]) G47.9 37780551 Sleep disturbance Problem 02/19/2021 12:00:0 0 AM EDT eCW1 ([facility]) R60.9 353951051 Dependent edema Problem 02/19/2021 12:00:00 AM EDT eCW1 ([facility]) F32.9 13373522 Depression, unspecified depression type P roblem 02/15/2021 12:00:00 AM EDT eCW1 ([facility]) L21.9 03350702 Seborrheic dermatitis Problem 02/09/2021 12: 00:00 AM EDT eCW1 ([facility]) L70.0 491319533 Comedonal acne Problem 02/09/2021 12:00:00 A M EDT eCW1 ([facility]) E78.2 Mixed hyperlipidemia Mixed hyperlipidemia Problem 02/02/2021 12:00:00 AM EDT MEDENT ([facility]) Z71.3 Dietary management surveillance Dietary management michael veillance Problem 02/02/2021 12:00:00 AM EDT MEDENT ([facility]) E66.09 Obesity Obesity Problem 02/02/2021 12:00:00 AM ED T MEDENT ([facility]) E78.1 Pure hyperglyceridemia Pure hyperglyceridemia Problem 02/02/2021 12:00:00 AM EDT MEDENT ([facility]) R07.9 Chest pain Chest pain Problem 02/02/2021 12:00:00 AM ED T MEDENT ([facility]) E78.2 [id number] Mixed hyperlipidemia Problem 01/24/2021 12:0 0:00 AM EDT eCW1 ([facility]) G47.33 11872792 LOU (obstructive sleep apnea) Problem 01/05/2021 12:00:00 AM EDT eCW1 ([facility]) L71.0 [id number] Perioral dermatitis Problem 12/29/2020 12:00 :00 AM EDT eCW1 ([facility]) M79.7 [id number] Fibromyalgia Problem 12/20/2020 12:00:00 AM EDT eCW1 ([facility]) G43.709 [id number] Chronic migraine Problem 11/03/2020 12:00:00 AM EST eCW1 ([facility]) J30.2 [id number] 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, 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 Problem 08/30/2020 12:00:00 AM EST eCW1 ([facility]) M79.645 [id number] Pain in left finger(s) Problem 07/09/2020 12:00:00 AM EDT eCW1 ([facility]) M79.644 [id number] Pain in right finger(s) Problem 1 12:00:00 AM EDT eCW1 ([facility]) K52.9 [id number] Chronic diarrhea Problem 07/09/2020 12:00:00 AM EDT eCW1 ([facility]) K21.9 Gastroesophageal reflux disease Gastroesophageal reflu x disease Problem 06/24/2020 12:00:00 AM EDT MEDENT ([facility] ) Note: Followed by PCP. [id number] Encounter for gyneco logical examination (general) (routine) with abnormal findings Problem 06/23/2020 12:00:00 AM EDT eCW1 ([facility]) Surgeries/Procedures Procedure Description Date Indications Data Source(s) OFFICE OUTPATIENT VISIT 15 MINUTES 06/15/2021 12:00:00 AM EDT MEDENT ([facility], ) BRNCDILAT RSPSE SPMTRY PRE&POST-BRNCDILAT ADMN 021 12:00:00 AM EDT MEDENT ([facility]) OFFICE OUTPATIENT VISIT 15 MINUTES 06/13/2021 12:00:00 AM EDT MEDENT ([facility]) Pain Procedure Log 03/23/2021 12:00:00 AM EDT eCW1 ([facility]) Completion of procedural visit when meets criteria 03/09/2021 12:00:00 AM EDT eCW1 ([facility]) OFFICE OUTPATIENT VISIT 15 MINUTES 02/17/2021 12:00:00 AM EDT MEDENT ([facility], ) OFFICE OUTPATIENT NEW 30 MINUTES 02/15/2021 12:00:00 A M EDT MEDENT ([facility], ) ECG ROUTINE ECG W/LEAST 12 LDS W/I&R 02/02/2021 12:00: 00 AM EDT MEDENT ([facility]) Endoscopy Upper GI Biopsy 01/28/2021 12:00:00 AM EDT MEDENT ([facility]) Med: Derm 1% Lidocaine with Epinephrine Injection Intr adermally to marked areas 01/06/2021 12:00:00 AM EDT eCW1 ([facility]) BRNCDILAT RSPSE SPMTRY PRE&POST-BRNCDILAT ADMN 021 12:00:00 AM EDT MEDENT ([facility]) OFFICE OUTPATIENT VISIT 15 MINUTES 12/23/2020 12:00:00 AM EDT MEDENT ([facility]) OFFICE OUTPATIENT VISIT 25 MINUTES 12/23/2020 12:00:00 AM EDT MEDENT ([facility]) Pain Procedure Log 12/01/2020 12:00:00 AM EDT eCW1 ([facility]) Completion of procedural visit when meets criteria 11/03/2020 12:00:00 AM EST eCW1 ([facility]) BRNCDILAT RSPSE SPMTRY PRE&POST-BRNCDILAT ADMN 020 12:00:00 AM EDT MEDENT ([facility]) Results ID Date Data Source TOTAL IRON BINDING CAPACIT 06/29/2021 12:00:00 AM EDT eCW1 ( [facility]) Name Value Range Interpretation Code Description Data Viviana rce(s) Supporting Document(s) 433 250-450 TOTAL IRON BINDING CAPACI TY eCW1 ([facility]) 87 50-170 IRON (FE) eCW1 ([facility]) 20.1 13.2-45.0 PERCENT SATURATION eCW1 ([facility]) ID Date Data Source [id number] 06/29/2021 12:00:00 AM EDT eCW1 ([facility]) Name Value Range Interpretation Code Description Data Viviana rce(s) Supporting Document(s) Hemoglobin A1c/Hemoglobin.total in Blood 5.8 HEMOGLOBIN A1c eCW1 ([facility]) ID Date Data Source HEPATITIS PROFILE ACUTE 06/29/2021 12:00:00 AM EDT eCW1 ([facility]) Name Value Range Interpretation Code Description Data Viviana rce(s) Supporting Document(s) < 0.0 <0.8 HEPATITIS C VIRUS FRANC IND EX eCW1 ([facility]) NEGATIVE NEGATIVE HEPATITIS B CORE ANTIBODY IGM eCW1 ([facility]) NEGATIVE NEGATIVE HEPATITIS A ANTIBODY IGM eCW1 ([facility]) NEGATIVE NEGATIVE HEPATITIS B SURFACE ANTIG EN eCW1 ([facility]) ID Date Data Source FERRITIN 06/29/2021 12:00:00 AM EDT eCW1 ([facility]) Name Value Range Interpretation Code Description Data Viviana rce(s) Supporting Document(s) 39 8-252 FERRITIN eCW1 ([facility]) ID Date Data Source LIVER PROFILE 02/17/2021 12:00:00 AM EDT eCW1 ([facility]) Name Value Range Interpretation Code Description Data Viviana rce(s) Supporting Document(s) 35 7-37 AST/SGOT eCW1 ([facility]) 93 45-117 ALKALINE PHOSPHATASE eCW1 ([facility]) 45 12-78 ALT/SGPT eCW1 ([facility]) 0.3 0.2-1.0 BILIRUBIN,TOTAL eCW1 ([facility]) 6.0 6.4-8.2 TOTAL PROTEIN eCW1 ([facility]) 3.4 3.2-5.2 ALBUMIN eCW1 ([facility]) < 0.1 0.0-0.2 BILIRUBIN,DIRECT eCW1 ([facility]) 1.3 1.2-2.2 ALBUMIN/GLOBULIN RATIO eCW1 ([facility]) ID Date Data Source [id number] 02/17/2021 12:00:00 AM EDT eCW1 ([facility]) Name Value Range Interpretation Code Description Data Viviana rce(s) Supporting Document(s) Microalbumin/Creatinine [Mass Ratio] in Urine 93.8 CREATININE, URINE eCW1 ([facility]) Microalbumin/Creatinine [Ratio] in Urine 5.3 0.0-30.0 SULEMAN/CREAT RATIO eCW1 ([facility]) Albumin/Creatinine [Mass Ratio] in Urine < 5.0 MALB URINE SIEMENS eCW1 ([facility]) ID Date Data Source UA URINALYSIS 02/17/2021 12:00:00 AM EDT eCW1 ([facility]) Name Value Range Interpretation Code Description Data Viviana rce(s) Supporting Document(s) UA URINALYSIS eCW1 ([facility]) ID Date Data Source Basic Metabolic Profile (BMP) 02/17/2021 12:00:00 AM EDT eCW 1 ([facility]) Name Value Range Interpretation Code Description Data Viviana rce(s) Supporting Document(s) 13 7-18 BLOOD UREA NITROGEN eCW1 ([facility]) 116 70-100 GLUCOSE, FASTING eCW1 ([facility]) > 60.0 >45 GLOMERULAR FILTRATION RATE eCW 1 ([facility]) 141 136-145 SODIUM LEVEL eCW1 ([facility]) 0.57 0.55-1.30 CREATININE FOR GFR eCW1 ([facility]) 4.1 3.5-5.1 POTASSIUM SERUM eCW1 ([facility]) 107 98-107 CHLORIDE LEVEL eCW1 ([facility]) 8.3 8.8-10.2 CALCIUM LEVEL eCW1 ([facility]) 29 21-32 CARBON DIOXIDE LEVEL eCW1 ([facility]) ID Date Data Source CBC - Complete Blood Count 02/17/2021 12:00:00 AM EDT eCW1 ( [facility]) Name Value Range Interpretation Code Description Data Viviana rce(s) Supporting Document(s) 5.0 4.0-10.0 WHITE BLOOD COUNT eCW1 ([facility]) 4.27 4.00-5.40 RED BLOOD COUNT eCW1 ([facility]) 13.0 12.0-15.5 HEMOGLOBIN eCW1 ([facility]) 40.4 36.0-47.0 HEMATOCRIT eCW1 ([facility]) 94.6 80.0-96.0 MEAN CORPUSCULAR VOLUME e CW1 ([facility]) 30.4 27.0-33.0 MEAN CORPUSCULAR HEMOGLOB IN eCW1 ([facility]) 32.2 32.0-36.5 MEAN CORPUSCULAR HGB CONC eCW1 ([facility]) 12.4 11.5-14.5 RED CELL DISTRIBUTION WID TH eCW1 ([facility]) 229 150-450 PLATELET COUNT, AUTOMATED W1 ([facility]) ID Date Data Source ALBUMIN 02/17/2021 12:00:00 AM EDT W1 ([facility]) Name Value Range Interpretation Code Description Data Viviana rce(s) Supporting Document(s) 3.4 3.2-5.2 ALBUMIN eCW1 ([facility]) ID Date Data Source [id number] 01/28/2021 11:42:00 AM EDT [facility] ) Name Value Range Interpretation Code Description Data Viviana rce(s) Supporting Document(s) Surgical pathology study Laboratory test result [facility] ([facility], ) FINAL DIAGNOSIS A-Gastric fundus ulcer, biopsy: [...] MD 01/31/2021 1134 ID Date Data Source [id number] 01/23/2021 08:45:00 AM EDT [facility] Name Value Range Interpretation Code Description Data Viviana rce(s) Supporting Document(s) SARS-CoV-2 (COVID-19) RNA [Presence] in Respiratory specimen by JARRETT with probe detection Not Detected [facility] This lab was ordered by [facility] and reported by [facility]. ID Date Data Source [id number] 01/20/2021 12:53:00 PM EDT MEDENT ([facility]) Name Value Range Interpretation Code Description Data Viviana rce(s) Supporting Document(s) Platelets 225 150-450 [facility] Red Blood Count 4.62 4.00-5.40 MEDENT ([facility]) White Blood Count 4.5 4.0-10.0 MEDENT ([facility]) Hemoglobin 14.1 MEDENT ([facility]) Hematocrit 43.6 MEDENT ([facility]) ID Date Data Source [id number] 01/20/2021 12:53:00 PM EDT [facility] Name Value Range Interpretation Code Description Data Viviana rce(s) Supporting Document(s) Troponin Laboratory test result MEDENT ([facility]) Thyroid Stimulating Hormone 2.300 ME DENT ([facility]) Lipoprotein lipase [Enzymatic activity/volume] in Serum or Plasma 72 MEDENT ([facility]) Free T4 0.96 MEDENT ([facility]) ID Date Data Source [id number] 01/20/2021 12:53:00 PM EDT MEDENT ([facility]) Name Value Range Interpretation Code Description Data Viviana rce(s) Supporting Document(s) CPK-MB 1.6 MEDENT ([facility]) Creatine kinase [Enzymatic activity/volume] in Serum or Plasma 73 MEDENT ([facility]) ID Date Data Source [id number] 01/20/2021 12:53:00 PM EDT [facility] Name Value Range Interpretation Code Description Data Viviana rce(s) Supporting Document(s) Albumin [Mass/volume] in Serum or Plasma 3.5 MEDENT ([facility]) Alanine aminotransferase [Enzymatic activity/volume] in Serum or Pl asma 56 MEDENT ([facility]) Calcium [Mass/volume] in Serum or Plasma 9.2 MEDENT ([facility]) Carbon dioxide, total [Moles/volume] in Serum or Plasma 29 MEDENT ([facility]) Chloride [Moles/volume] in Serum or Plasma 106 MEDENT ([facility]) Alkaline phosphatase [Enzymatic activity/volume] in Serum or Plasma 1 05 MEDENT ([facility]) Protein [Mass/volume] in Serum or Plasma 6.6 MEDENT ([facility]) Potassium [Moles/volume] in Serum or Plasma 3.9 MEDENT ([facility]) Urea nitrogen [Mass/volume] in Serum or Plasma 12 MEDENT ([facility]) Aspartate aminotransferase [Enzymatic activity/volume] in Serum or Plasma 54 MEDENT ([facility]) Sodium 141 MEDENT ([facility]) Glucose 102 70-100 MEDENT ([facility]) Creatinine For GFR 0.60 MEDENT ([facility]) ID Date Data Source [id number] 01/20/2021 11:59:00 AM EDT MEDENT ([facility]) Name Value Range Interpretation Code Description Data Viviana rce(s) Supporting Document(s) Troponin Laboratory test result MEDENT ([facility]) ID Date Data Source [id number] 01/20/2021 11:59:00 AM EDT MEDENT ([facility]) Name Value Range Interpretation Code Description Data Viviana rce(s) Supporting Document(s) CPK-MB Laboratory test result MEDENT ([facility]) Creatine kinase [Enzymatic activity/volume] in Serum or Plasma 64 MEDENT ([facility]) ID Date Data Source [id number] 01/05/2021 11:57:00 AM EDT MEDENT ([facility]) Name Value Range Interpretation Code Description Data Viviana rce(s) Supporting Document(s) Hemoglobin A1c/Hemoglobin.total in Blood 5.7 MEDENT ([facility]) ID Date Data Source [id number] 01/05/2021 11:57:00 AM EDT MEDENT ([facility]) Name Value Range Interpretation Code Description Data Viviana rce(s) Supporting Document(s) Triglycerides 278 MEDENT ([facility]) Cholesterol in LDL [Mass/volume] in Serum or Plasma by calculation 53 MEDENT ([facility]) HDL 104 [facility] Cholesterol 213 MEDENT ([facility]) Chol/HDL Ratio 2.048 MEDENT ([facility]) ID Date Data Source GASTROINTESTINAL GI PANEL (GIPANEL) 01/05/2021 12:00:00 AM EDT eCW1 ([facility]) Name Value Range Interpretation Code Description Data Viviana rce(s) Supporting Document(s) This Gastrointestinal PCR Panel detects the following bacteria, GASTROINTESTINAL (GI) PANEL eCW1 ([facility]) ID Date Data Source LIPID PANEL (CARDIAC RISK) 01/05/2021 12:00:00 AM EDT eCW1 ( [facility]) Name Value Range Interpretation Code Description Data Viviana rce(s) Supporting Document(s) Triglyceride [Mass/volume] in Serum or Plasma by calculation 278 <150 TRIGLYCERIDES LEVEL eCW1 ([facility]) Cholesterol [Moles/volume] in Serum or Plasma 213 <200 CHOLESTEROL LEVEL eCW1 ([facility]) Cholesterol in HDL [Moles/volume] in Serum or Plasma 104 >40 HDL CHOLESTEROL eCW1 ([facility]) 109 NON-HDL-C eCW1 ([facility]) Cholesterol in LDL [Mass/volume] in Serum or Plasma by calculation 53 <100 LDL CHOLESTEROL eCW1 ([facility]) 2.048 <5 CHOLESTEROL RISK RATIO eCW1 ([facility]) ID Date Data Source HILTON 12/27/2020 12:00:00 AM EDT eCW1 ([facility]) Name Value Range Interpretation Code Description Data Viviana rce(s) Supporting Document(s) Negative Negative ANTINUCLEAR ANTIBODIES DI RECT eCW1 ([facility]) ID Date Data Source DDIMER QUANT 12/03/2020 12:00:00 AM EDT eCW1 ([facility]) Name Value Range Interpretation Code Description Data Viviana rce(s) Supporting Document(s) 273.46 <500 D-DIMER QUANT eCW1 ([facility]) ID Date Data Source Comprehensive Metabolic Profile (CMP) 12/03/2020 12:00:00 AM EDT eCW1 ([facility]) Name Value Range Interpretation Code Description Data Viviana rce(s) Supporting Document(s) 8 7-18 BLOOD UREA NITROGEN eCW1 ([facility]) 127 70-100 GLUCOSE, FASTING eCW1 ([facility]) > 60.0 >45 GLOMERULAR FILTRATION RATE eCW 1 ([facility]) 141 136-145 SODIUM LEVEL eCW1 ([facility]) 0.54 0.55-1.30 CREATININE FOR GFR eCW1 ([facility]) 104 98-107 CHLORIDE LEVEL eCW1 ([facility]) 32 21-32 CARBON DIOXIDE LEVEL eCW1 ([facility]) 3.6 3.5-5.1 POTASSIUM SERUM eCW1 ([facility]) 29 7-37 AST/SGOT eCW1 ([facility]) 9.0 8.8-10.2 CALCIUM LEVEL eCW1 ([facility]) 0.3 0.2-1.0 BILIRUBIN,TOTAL eCW1 ([facility]) 100 45-117 ALKALINE PHOSPHATASE eCW1 ([facility]) 40 12-78 ALT/SGPT eCW1 ([facility]) 6.1 6.4-8.2 TOTAL PROTEIN eCW1 ([facility]) 3.4 3.2-5.2 ALBUMIN eCW1 ([facility]) 1.3 1.2-2.2 ALBUMIN/GLOBULIN RATIO eCW1 ([facility]) ID Date Data Source [id number] 10/29/2020 11:10:00 AM EST [facility] Name Value Range Interpretation Code Description Data Viviana rce(s) Supporting Document(s) SARS coronavirus 2 RNA Not Detected [facility] This lab was ordered by [facility] and reported by [facility]. ID Date Data Source PAP REQUEST FOR SERVICE 06/30/2020 10:30:27 AM EDT eCW1 ([facility]) Name Value Range Interpretation Code Description Data Viviana rce(s) Supporting Document(s) PAP REQUEST FOR SERVICE eCW1 ( [facility]) ID Date Data Source [employer] Eris Screening Bilateral (Ultrasound if Indicated ) (3D Mammo) 06/24/2020 10:45:52 AM EDT eCW1 ([facility]) Name Value Range Interpretation Code Description Data Viviana rce(s) Supporting Document(s) [employer] Eris Screening Bilat eral (Ultrasound if Indicated) (3D Mammo) eCW1 ([facility]) ID Date Data Source URINE CULTURE 06/24/2020 04:27:38 AM EDT eCW1 ([facility]) Name Value Range Interpretation Code Description Data Viviana rce(s) Supporting Document(s) Laboratory studies (set) URINE CULTU RE eCW1 ([facility]) ID Date Data Source Urinalysis, no micro 06/23/2020 05:26:06 AM EDT eCW1 ([facility]) Name Value Range Interpretation Code Description Data Viviana rce(s) Supporting Document(s) neg Nitrate eCW1 ([facility]) 7 pH eCW1 ([facility]) neg Leukocyte eCW1 ([facility]) 1.005 Spec gravity eCW1 ([facility]) neg Ketones eCW1 ([facility]) trace Protein eCW1 ([facility]) nml Glucose eCW1 ([facility]) yes Internal QC Acceptable (Y/N) e CW1 ([facility]) neg Urobili eCW1 ([facility]) neg Bilirubin eCW1 ([facility]) trace Blood eCW1 ([facility]) Procedure Social History Code Duration Value Status Description Data Source(s ) Smoking 06/29/2021 12:00:00 AM EDT Former Smoker completed Former Smoker eCW1 ([facility]) Smoking 06/29/2021 12:00:00 AM EDT Former Smoker completed Former Smoker eCW1 ([facility]) Smoking 06/20/2021 12:00:00 AM EDT Former Smoker completed Former Smoker eCW1 ([facility]) Smoking 06/20/2021 12:00:00 AM EDT Former Smoker completed Former Smoker eCW1 ([facility]) Smoking 06/13/2021 12:00:00 AM EDT Patient is a former smoker completed Patient is a former smoker MEDENT ([facility] ) Smoking 06/01/2021 12:00:00 AM EDT Former Smoker completed Former Smoker eCW1 ([facility]) Smoking 06/01/2021 12:00:00 AM EDT Former Smoker completed Former Smoker eCW1 ([facility]) Smoking 06/01/2021 12:00:00 AM EDT Former Smoker completed Former Smoker eCW1 ([facility]) Smoking 06/01/2021 12:00:00 AM EDT Former Smoker completed Former Smoker eCW1 ([facility]) Smoking 06/01/2021 12:00:00 AM EDT Former Smoker completed Former Smoker eCW1 ([facility]) Smoking 05/30/2021 12:00:00 AM EDT Former Smoker completed Former Smoker eCW1 ([facility]) Smoking 05/30/2021 12:00:00 AM EDT Former Smoker completed Former Smoker eCW1 ([facility]) Smoking 05/26/2021 12:00:00 AM EDT Former Smoker completed Former Smoker eCW1 ([facility]) Smoking 05/26/2021 12:00:00 AM EDT Former Smoker completed Former Smoker eCW1 ([facility]) Smoking 03/23/2021 12:00:00 AM EDT Former Smoker completed Former Smoker eCW1 ([facility]) Smoking 03/23/2021 12:00:00 AM EDT Former Smoker completed Former Smoker eCW1 ([facility]) Smoking 03/23/2021 12:00:00 AM EDT Former Smoker completed Former Smoker eCW1 ([facility]) Smoking 03/23/2021 12:00:00 AM EDT Former Smoker completed Former Smoker eCW1 ([facility]) Smoking 03/23/2021 12:00:00 AM EDT Former Smoker completed Former Smoker eCW1 ([facility]) Smoking 03/23/2021 12:00:00 AM EDT Former Smoker completed Former Smoker eCW1 ([facility]) Smoking 03/23/2021 12:00:00 AM EDT Former Smoker completed Former Smoker eCW1 ([facility]) Smoking 03/16/2021 12:00:00 AM EDT Former Smoker completed Former Smoker eCW1 ([facility]) Smoking 03/16/2021 12:00:00 AM EDT Former Smoker completed Former Smoker eCW1 ([facility]) Smoking 03/04/2021 12:00:00 AM EDT Former Smoker completed Former Smoker eCW1 ([facility]) Smoking 03/04/2021 12:00:00 AM EDT Former Smoker completed Former Smoker eCW1 ([facility]) Smoking 03/04/2021 12:00:00 AM EDT Former Smoker completed Former Smoker eCW1 ([facility]) Smoking 02/19/2021 12:00:00 AM EDT Former Smoker completed Former Smoker eCW1 ([facility]) Smoking 02/19/2021 12:00:00 AM EDT Former Smoker completed Former Smoker eCW1 ([facility]) Smoking 02/19/2021 12:00:00 AM EDT Former Smoker completed Former Smoker eCW1 ([facility]) Smoking 02/15/2021 12:00:00 AM EDT Non Smoker completed Non Smoke r MEDENT ([facility] ) Smoking 02/09/2021 12:00:00 AM EDT Former Smoker completed Former Smoker eCW1 ([facility]) Smoking 02/09/2021 12:00:00 AM EDT Former Smoker completed Former Smoker eCW1 ([facility]) Smoking 02/04/2021 12:00:00 AM EDT Former Smoker completed Former Smoker [facility]CW1 [facility] [facility] 02/04/2021 12:00:00 AM EDT Former Smoker completed Former Smoker eCW1 ([facility]) Smoking 02/02/2021 12:00:00 AM EDT Patient is a former smoker completed Patient is a former smoker MEDENT ([facility]) Smoking 01/21/2021 12:00:00 AM EDT Former Smoker completed Former Smoker eCW1 ([facility]) Smoking 01/21/2021 12:00:00 AM EDT Former Smoker completed Former Smoker eCW1 ([facility]) Smoking 01/21/2021 12:00:00 AM EDT Former Smoker completed Former Smoker eCW1 ([facility]) Smoking 01/21/2021 12:00:00 AM EDT Former Smoker completed Former Smoker eCW1 ([facility]) Smoking 01/17/2021 12:00:00 AM EDT Former Smoker completed Former Smoker eCW1 ([facility]) Smoking 01/06/2021 12:00:00 AM EDT Former Smoker completed Former Smoker eCW1 ([facility]) Smoking 01/06/2021 12:00:00 AM EDT Former Smoker completed Former Smoker eCW1 ([facility]) Smoking 01/06/2021 12:00:00 AM EDT Former Smoker completed Former Smoker eCW1 ([facility]) Smoking 01/06/2021 12:00:00 AM EDT Former Smoker completed Former Smoker eCW1 ([facility]) Smoking 01/05/2021 12:00:00 AM EDT Former Smoker completed Former Smoker eCW1 ([facility]) Smoking 01/05/2021 12:00:00 AM EDT Former Smoker completed Former Smoker eCW1 ([facility]) Smoking 01/05/2021 12:00:00 AM EDT Former Smoker completed Former Smoker eCW1 ([facility]) Smoking 12/29/2020 12:00:00 AM EDT Former Smoker completed Former Smoker eCW1 ([facility]) Smoking 12/29/2020 12:00:00 AM EDT Former Smoker completed Former Smoker eCW1 ([facility]) Smoking 12/26/2020 12:00:00 AM EDT Former Smoker completed Former Smoker eCW1 ([facility]) Smoking 12/20/2020 12:00:00 AM EDT Former Smoker completed Former Smoker eCW1 ([facility]) Smoking 12/20/2020 12:00:00 AM EDT Former Smoker completed Former Smoker eCW1 ([facility]) Smoking 12/20/2020 12:00:00 AM EDT Former Smoker completed Former Smoker eCW1 ([facility]) Smoking 12/20/2020 12:00:00 AM EDT Former Smoker completed Former Smoker eCW1 ([facility]) Smoking 12/02/2020 12:00:00 AM EDT Former Smoker completed Former Smoker eCW1 ([facility]) Smoking 12/02/2020 12:00:00 AM EDT Former Smoker completed Former Smoker eCW1 ([facility]) Smoking 12/02/2020 12:00:00 AM EDT Former Smoker completed Former Smoker eCW1 ([facility]) Smoking 12/02/2020 12:00:00 AM EDT Former Smoker completed Former Smoker eCW1 ([facility]) Smoking 12/02/2020 12:00:00 AM EDT Former Smoker completed Former Smoker eCW1 ([facility]) Smoking 12/02/2020 12:00:00 AM EDT Former Smoker completed Former Smoker eCW1 ([facility]) Smoking 11/25/2020 12:00:00 AM EDT Former Smoker completed Former Smoker eCW1 ([facility]) Smoking 11/25/2020 12:00:00 AM EDT Former Smoker completed Former Smoker eCW1 ([facility]) Smoking 11/25/2020 12:00:00 AM EDT Former Smoker completed Former Smoker eCW1 ([facility]) Smoking 11/25/2020 12:00:00 AM EDT Former Smoker completed Former Smoker eCW1 ([facility]) Smoking 11/25/2020 12:00:00 AM EDT Former Smoker completed Former Smoker eCW1 ([facility]) Smoking 11/03/2020 12:00:00 AM EST Former Smoker completed Former Smoker eCW1 ([facility]) Smoking 11/03/2020 12:00:00 AM EST Former Smoker completed Former Smoker eCW1 ([facility]) Smoking 11/03/2020 12:00:00 AM EST Former Smoker completed Former Smoker eCW1 ([facility]) Smoking 11/03/2020 12:00:00 AM EST Former Smoker completed Former Smoker eCW1 ([facility]) Smoking 11/03/2020 12:00:00 AM EST Former Smoker completed Former Smoker eCW1 ([facility]) Smoking 08/30/2020 12:00:00 AM EST Former Smoker completed Former Smoker eCW1 ([facility]) Smoking 08/30/2020 12:00:00 AM EST Former Smoker completed Former Smoker eCW1 ([facility]) Smoking 08/30/2020 12:00:00 AM EST Former Smoker completed Former Smoker eCW1 ([facility]) Smoking 08/18/2020 12:00:00 AM EST Former Smoker completed Former Smoker eCW1 ([facility]) Smoking 07/29/2020 12:00:00 AM EST Former Smoker completed Former Smoker eCW1 ([facility]) Smoking 07/29/2020 12:00:00 AM EST Former Smoker completed Former Smoker eCW1 ([facility]) Smoking 07/29/2020 12:00:00 AM EST Former Smoker completed Former Smoker eCW1 ([facility]) Smoking 07/29/2020 12:00:00 AM EST Former Smoker completed Former Smoker eCW1 ([facility]) Smoking 07/09/2020 12:00:00 AM EDT Former Smoker completed Former Smoker eCW1 ([facility]) Smoking 07/09/2020 12:00:00 AM EDT Former Smoker completed Former Smoker eCW1 ([facility]) Smoking 07/09/2020 12:00:00 AM EDT Former Smoker completed Former Smoker eCW1 ([facility]) Smoking 07/09/2020 12:00:00 AM EDT Former Smoker completed Former Smoker eCW1 ([facility]) Smoking 06/24/2020 12:00:00 AM EDT Patient has never smoked co mpleted Patient has never smoked MEDENT ([facility] ) Smoking 06/23/2020 12:00:00 AM EDT Former Smoker completed Former Smoker eCW1 ([facility]) Smoking 06/18/2020 12:00:00 AM EDT Former Smoker completed Former Smoker eCW1 ([facility]) Smoking 06/18/2020 12:00:00 AM EDT Former Smoker completed Former Smoker eCW1 ([facility]) Smoking 06/18/2020 12:00:00 AM EDT Former Smoker completed Former Smoker eCW1 ([facility]) Vital Signs ID Date Data Source UNK Name Value Range Interpretation Code Description Data Source(s) Body mass index (BMI) [Ratio] 33.90 kg/m2 33.90 kg/m2 eCW1 ([facility]) Heart rate 106 /min 106 /min eCW1 ([facility]) Respiratory rate 18 /min 18 /min eCW1 ([facility]) Body temperature 97.2 [degF] 97.2 [degF] eCW1 ( [facility]) Systolic blood pressure 122 mm[Hg] 122 mm[Hg] e CW1 ([facility]) Diastolic blood pressure 82 mm[Hg] 82 mm[Hg] eCW1 ([facility]) Body weight 173.6 [lb_av] 173.6 [lb_av] eCW1 ([facility]) Body weight 78.74 kg 78.74 kg eCW1 ([facility]) Body height 60 [in_i] 60 [in_i] eCW1 ([facility]) Systolic blood pressure 134 mm[Hg] 134 mm[Hg] M EDENT ([facility] ) [place] body weight 100 [lb_av] 100 [lb_av] MEDEN T ([facility]) Body mass index (BMI) [Ratio] 36.4 kg/m2 36.4 k g/m2 MEDENT ([facility]) Diastolic blood pressure 70 mm[Hg] 70 [facility] Heart rate 58 /min 58 /min MEDENT ([facility]) Body weight 78.926 kg 78.926 [facility] Oxygen saturation in Arterial blood by Pulse oximetry 97 % 97 % [facility] ([facility]) Body height 58 [in_i] 58 [in_i] MEDENT ([facility]) 4'10" Body weight 174.00 [lb_av] 174.00 [lb_av] MEDEN T ([facility]) Body surface area Derived from formula 1.72 m2 1.72 m2 [facility] ([facility]) Body weight 176.12 [lb_av] 176.12 [lb_av] [...] Body weight 168.6 [lb_av] 168.6 [lb_av] eCW1 ([facility]) Body weight 76.48 kg 76.48 kg eCW1 ([facility]) Body height 60 [in_i] 60 [in_i] eCW1 ([facility]) Body mass index (BMI) [Ratio] 32.92 kg/m2 32.92 kg/m2 eCW1 ([facility]) Systolic blood pressure 118 mm[Hg] 118 mm[Hg] e CW1 ([facility]) Diastolic blood pressure 70 mm[Hg] 70 mm[Hg] eCW1 ([facility]) Body weight 176.2 [lb_av] 176.2 [lb_av] eCW1 ([facility]) Body weight 79.92 kg 79.92 kg eCW1 ([facility]) Body height 60 [in_i] 60 [in_i] eCW1 ([facility]) Body mass index (BMI) [Ratio] 34.41 kg/m2 34.41 kg/m2 eCW1 ([facility]) Heart rate 89 /min 89 /min eCW1 ([facility]) Respiratory rate 18 /min 18 /min eCW1 ([facility]) Body temperature 97.4 [degF] 97.4 [degF] eCW1 ( [facility]) Systolic blood pressure 116 mm[Hg] 116 mm[Hg] e CW1 ([facility]) Diastolic blood pressure 70 mm[Hg] 70 mm[Hg] eCW1 ([facility]) Body weight 176.8 [lb_av] 176.8 [lb_av] eCW1 ([facility]) Body weight 80.2 kg 80.2 kg eCW1 ([facility]) Body height 60 [in_i] 60 [in_i] eCW1 ([facility]) Body mass index (BMI) [Ratio] 34.53 kg/m2 34.53 kg/m2 eCW1 ([facility]) Heart rate 68 /min 68 /min eCW1 ([facility]) Respiratory rate 18 /min 18 /min eCW1 ([facility]) Body temperature 98.1 [degF] 98.1 [degF] eCW1 ( [facility]) Systolic blood pressure 115 mm[Hg] 115 mm[Hg] e CW1 ([facility]) Diastolic blood pressure 67 mm[Hg] 67 mm[Hg] eCW1 ([facility]) Heart rate 94 /min 94 /min eCW1 ([facility]) Respiratory rate 18 /min 18 /min eCW1 ([facility]) Body temperature 97.8 [degF] 97.8 [degF] eCW1 ( [facility]) Systolic blood pressure 118 mm[Hg] 118 mm[Hg] e CW1 ([facility]) Body weight 174.2 [lb_av] 174.2 [lb_av] eCW1 ([facility]) Diastolic blood pressure 64 mm[Hg] 64 mm[Hg] eCW1 ([facility]) Body weight 79.02 kg 79.02 kg eCW1 ([facility]) Body height 60 [in_i] 60 [in_i] eCW1 ([facility]) Body mass index (BMI) [Ratio] 34.02 kg/m2 34.02 kg/m2 eCW1 ([facility]) Body weight 173.8 [lb_av] 173.8 [lb_av] eCW1 ([facility]) Body height 60 [in_i] 60 [in_i] eCW1 ([facility]) Body mass index (BMI) [Ratio] 33.94 kg/m2 33.94 kg/m2 W1 ([facility]) Heart rate 70 /min 70 /min eCW1 ([facility]) Respiratory rate 18 /min 18 /min eCW1 ([facility]) Body temperature 98.3 [degF] 98.3 [degF] eCW1 ( [facility]) Systolic blood pressure 117 mm[Hg] 117 mm[Hg] e CW1 ([facility]) Diastolic blood pressure 60 mm[Hg] 60 mm[Hg] eCW1 ([facility]) Body weight 175.80 [lb_av] 175.80 [lb_av] eCW1 ([facility]) Body height 60 [in_i] 60 [in_i] eCW1 ([facility]) Body mass index (BMI) [Ratio] 34.33 kg/m2 34.33 kg/m2 eCW1 ([facility]) Heart rate 84 /min 84 /min eCW1 ([facility]) Respiratory rate 18 /min 18 /min eCW1 ([facility]) Body temperature 97.7 [degF] 97.7 [degF] eCW1 ( [facility]) Systolic blood pressure 112 mm[Hg] 112 mm[Hg] e CW1 ([facility]) Diastolic blood pressure 70 mm[Hg] 70 mm[Hg] eCW1 ([facility]) Systolic blood pressure 118 mm[Hg] 118 mm[Hg] e CW1 ([facility]) Diastolic blood pressure 70 mm[Hg] 70 mm[Hg] eCW1 ([facility]) Body weight 175.6 [lb_av] 175.6 [lb_av] eCW1 ([facility]) Body height 60 [in_i] 60 [in_i] eCW1 ([facility]) Body mass index (BMI) [Ratio] 34.29 kg/m2 34.29 kg/m2 eCW1 ([facility]) Heart rate 82 /min 82 /min eCW1 ([facility]) Respiratory rate 18 /min 18 /min eCW1 ([facility]) Body temperature 96.5 [degF] 96.5 [degF] eCW1 ( [facility]) Body weight 174.4 [lb_av] 174.4 [lb_av] eCW1 ([facility]) Body height 60 [in_i] 60 [in_i] eCW1 ([facility]) Body mass index (BMI) [Ratio] 34.06 kg/m2 34.06 kg/m2 eCW1 ([facility]) Heart rate 72 /min 72 /min eCW1 ([facility]) Respiratory rate 18 /min 18 /min eCW1 ([facility]) Body temperature 98.5 [degF] 98.5 [degF] eCW1 ( [facility]) Systolic blood pressure 121 mm[Hg] 121 mm[Hg] e CW1 ([facility]) Diastolic blood pressure 75 mm[Hg] 75 mm[Hg] eCW1 ([facility]) Diastolic blood pressure 60 mm[Hg] 60 mm[Hg] MEDENT ([facility]) Body height 58 [in_i] 58 [in_i] MEDENT ([facility]) 4'10" Body weight 175.00 [lb_av] 175.00 [lb_av] MEDEN T ([facility]) Body mass index (BMI) [Ratio] 36.6 kg/m2 36.6 k g/m2 [facility] ([facility]) [place] body weight 100 [lb_av] 100 [[facility]_av] [facility] Body weight 79.380 kg 79.380 kg [facility] ([facility]) Body surface area Derived from formula 1.72 m2 1.72 m2 [facility] ([facility]) Systolic blood pressure 102 mm[Hg] 102 mm[Hg] M EDENT ([facility]) [place] body weight 100 [lb_av] 100 [lb_av] MEDEN T ([facility]) Body height 58 [in_i] 58 [in_i] MEDENT ([facility]) 4'10" Body weight 177.2 [lb_av] 177.2 [lb_av] eCW1 ([facility]) Body height 60 [in_i] 60 [in_i] eCW1 ([facility]) Body mass index (BMI) [Ratio] 34.60 kg/m2 34.60 kg/m2 eCW1 ([facility]) Heart rate 74 /min 74 /min eCW1 ([facility]) Respiratory rate 18 /min 18 /min W1 ([facility]) Body temperature 973 [degF] 973 [degF] eCW1 ([facility]) Systolic blood pressure 112 mm[Hg] 112 mm[Hg] e CW1 ([facility]) Diastolic blood pressure 72 mm[Hg] 72 mm[Hg] eCW1 ([facility]) Body height 58 [in_i] 58 [in_i] [facility] ([facility], ) 4'10" Body weight 177.00 [lb_av] 177.00 [lb_av] MEDEN T ([facility]) Body mass index (BMI) [Ratio] 37.0 kg/m2 37.0 k g/m2 [facility] ([facility]) Body weight 80.287 kg 80.287 kg [facility] ([facility]) [place] body weight 100 [lb_av] 100 [lb_av] MEDEN T ([facility]) Body surface area Derived from formula 1.73 m2 1.73 m2 [facility] ([facility]) Systolic blood pressure 122 mm[Hg] 122 [facility]Hg[facility] Diastolic blood pressure 68 mm[Hg] 68 mm[Hg] [facility] ([facility]) Heart rate 64 /min 64 /min [facility] ([facility]) Oxygen saturation in Arterial blood by Pulse oximetry 97 % 97 % [facility] ([facility]) Body weight 174.6 [lb_av] 174.6 [lb_av] eCW1 ([facility]) Body height 60 [in_i] 60 [in_i] eCW1 ([facility]) Body mass index (BMI) [Ratio] 34.10 kg/m2 34.10 kg/m2 eCW1 ([facility]) Systolic blood pressure 110 mm[Hg] 110 mm[Hg] e CW1 ([facility]) Diastolic blood pressure 68 mm[Hg] 68 mm[Hg] eCW1 ([facility]) Body weight 176.2 [lb_av] 176.2 [lb_av] eCW1 ([facility]) Body height 60 [in_i] 60 [in_i] eCW1 ([facility]) Body mass index (BMI) [Ratio] 34.41 kg/m2 34.41 kg/m2 W1 ([facility]) Heart rate 68 /min 68 /min eCW1 ([facility]) Respiratory rate 18 /min 18 /min eCW1 ([facility]) Body temperature 99.1 [degF] 99.1 [degF] eCW1 ( [facility]) Systolic blood pressure 111 mm[Hg] 111 mm[Hg] e CW1 ([facility]) Diastolic blood pressure 60 mm[Hg] 60 mm[Hg] eCW1 ([facility]) Body weight 176.00 [lb_av] 176.00 [lb_av] MEDEN T ([facility]) Body height 61 [in_i] 61 [in_i] MEDENT ([facility] 5'1" Heart rate 76 /min 76 /min MEDENT ([facility]) Systolic blood pressure--sitting 116 mm[Hg] 116 mm[Hg] MEDENT ([facility]) [employer], large cuff/Ra Diastolic blood pressure--sitting 58 mm[Hg] 58 mm[Hg] MEDENT ([facility]) [employer], large cuff/Ra Body mass index (BMI) [Ratio] 33.3 kg/m2 33.3 k g/m2 MEDENT ([facility]) Body weight 177.8 [lb_av] 177.8 [lb_av] eCW1 ([facility]) Body height 60 [in_i] 60 [in_i] eCW1 ([facility]) Body mass index (BMI) [Ratio] 34.72 kg/m2 34.72 kg/m2 eCW1 ([facility]) Heart rate 82 /min 82 /min eCW1 ([facility]) Respiratory rate 18 /min 18 /min eCW1 ([facility]) Body temperature 96.8 [degF] 96.8 [degF] eCW1 ( [facility]) Systolic blood pressure 110 mm[Hg] 110 mm[Hg] e CW1 ([facility]) Diastolic blood pressure 70 mm[Hg] 70 mm[Hg] eCW1 ([facility]) Body weight 178 [lb_av] 178 [lb_av] eCW1 ([facility]) Body height 60 [in_i] 60 [in_i] eCW1 ([facility]) Body mass index (BMI) [Ratio] 34.76 kg/m2 34.76 kg/m2 eCW1 ([facility]) Systolic blood pressure 108 mm[Hg] 108 mm[Hg] e CW1 ([facility]) Diastolic blood pressure 74 mm[Hg] 74 mm[Hg] eCW1 ([facility]) Body weight 177.8 [lb_av] 177.8 [lb_av] eCW1 ([facility]) Body height 60 [in_i] 60 [in_i] eCW1 ([facility]) Body mass index (BMI) [Ratio] 34.72 kg/m2 34.72 kg/m2 eCW1 ([facility]) Heart rate 71 /min 71 /min eCW1 ([facility]) Respiratory rate 18 /min 18 /min eCW1 ([facility]) Body temperature 97.4 [degF] 97.4 [degF] eCW1 ( [facility]) Systolic blood pressure 109 mm[Hg] 109 mm[Hg] e CW1 ([facility]) Diastolic blood pressure 79 mm[Hg] 79 mm[Hg] eCW1 ([facility]) Body weight 175.0 [lb_av] 175.0 [lb_av] eCW1 ([facility]) Body height 60 [in_i] 60 [in_i] eCW1 ([facility]) Body mass index (BMI) [Ratio] 34.17 kg/m2 34.17 kg/m2 eCW1 ([facility]) Heart rate 82 /min 82 /min eCW1 ([facility]) Respiratory rate 18 /min 18 /min eCW1 ([facility]) Body temperature 97.1 [degF] 97.1 [degF] eCW1 ( [facility]) Systolic blood pressure 120 mm[Hg] 120 mm[Hg] e CW1 ([facility]) Diastolic blood pressure 76 mm[Hg] 76 mm[Hg] eCW1 ([facility]) Body height 60 [in_i] 60 [in_i] eCW1 ([facility]) Body mass index (BMI) [Ratio] 34.37 kg/m2 34.37 kg/m2 eCW1 ([facility]) Body weight 176 [lb_av] 176 [lb_av] eCW1 ([facility]) Systolic blood pressure 112 mm[Hg] 112 mm[Hg] e CW1 ([facility]) Diastolic blood pressure 70 mm[Hg] 70 mm[Hg] eCW1 ([facility]) Body weight 175.50 [lb_av] 175.50 [lb_av] MEDEN [...] Body weight 177.4 [lb_av] 177.4 [lb_av] eCW1 ([facility]) Body height 60 [in_i] 60 [in_i] eCW1 ([facility]) Body mass index (BMI) [Ratio] 34.64 kg/m2 34.64 kg/m2 eCW1 ([facility]) Heart rate 73 /min 73 /min eCW1 ([facility]) Respiratory rate 18 /min 18 /min eCW1 ([facility]) Body temperature 95.7 [degF] 95.7 [degF] eCW1 ( [facility]) Systolic blood pressure 110 mm[Hg] 110 mm[Hg] e CW1 ([facility]) Diastolic blood pressure 70 mm[Hg] 70 mm[Hg] eCW1 ([facility]) Body weight 174.2 [lb_av] 174.2 [lb_av] eCW1 ([facility]) Body height 60 [in_i] 60 [in_i] eCW1 ([facility]) Heart rate 89 /min 89 /min eCW1 ([facility]) Respiratory rate 17 /min 17 /min eCW1 ([facility]) Body mass index (BMI) [Ratio] 34.02 kg/m2 34.02 kg/m2 eCW1 ([facility]) Body temperature 98.8 [degF] 98.8 [degF] eCW1 ( [facility]) Systolic blood pressure 102 mm[Hg] 102 mm[Hg] e CW1 ([facility]) Diastolic blood pressure 62 mm[Hg] 62 mm[Hg] eCW1 ([facility]) Body weight 177.6 [lb_av] 177.6 [lb_av] eCW1 ([facility]) Body height 60 [in_i] 60 [in_i] eCW1 ([facility]) Body mass index (BMI) [Ratio] 34.68 kg/m2 34.68 kg/m2 eCW1 ([facility]) Heart rate 78 /min 78 /min eCW1 ([facility]) Respiratory rate 16 /min 16 /min eCW1 ([facility]) Body temperature 97.8 [degF] 97.8 [degF] eCW1 ( [facility]) Systolic blood pressure 108 mm[Hg] 108 mm[Hg] e CW1 ([facility]) Diastolic blood pressure 56 mm[Hg] 56 mm[Hg] eCW1 ([facility]) Body weight 174 [lb_av] 174 [lb_av] eCW1 ([facility]) Body height 60 [in_i] 60 [in_i] eCW1 [facility] [facility]) Body mass index (BMI) [Ratio] 33.98 kg/m2 33.98 kg/m2 eCW1 ([facility]) Heart rate 89 /min 89 /min eCW1 ([facility]) Respiratory rate 18 /min 18 /min eCW1 ([facility]) Body temperature 97.4 [degF] 97.4 [degF] eCW1 ( [facility]) Systolic blood pressure 132 mm[Hg] 132 mm[Hg] e CW1 ([facility]) Diastolic blood pressure 76 mm[Hg] 76 mm[Hg] eCW1 ([facility]) Body weight 171 [lb_av] 171 [lb_av] eCW1 ([facility]) Body height 60 [in_i] 60 [in_i] eCW1 ([facility]) Body mass index (BMI) [Ratio] 33.39 kg/m2 33.39 kg/m2 eCW1 ([facility]) Heart rate 82 /min 82 /min eCW1 ([facility]) Respiratory rate 18 /min 18 /min eCW1 ([facility]) Body temperature 97.8 [degF] 97.8 [degF] eCW1 ( [facility]) Systolic blood pressure 110 mm[Hg] 110 mm[Hg] e CW1 ([facility]) Diastolic blood pressure 70 mm[Hg] 70 mm[Hg] eCW1 ([facility]) Body weight 177.6 [lb_av] 177.6 [lb_av] eCW1 ([facility]) Body height 60 [in_i] 60 [in_i] eCW1 ([facility]) Body mass index (BMI) [Ratio] 34.68 kg/m2 34.68 kg/m2 eCW1 ([facility]) Heart rate 74 /min 74 /min eCW1 ([facility]) Respiratory rate 18 /min 18 /min eCW1 ([facility]) Body temperature 97.6 [degF] 97.6 [degF] eCW1 ( [facility]) Systolic blood pressure 126 mm[Hg] 126 mm[Hg] e CW1 ([facility]) Diastolic blood pressure 58 mm[Hg] 58 mm[Hg] eCW1 ([facility]) Body weight 172.6 [lb_av] 172.6 [lb_av] eCW1 ([facility]) Body height 60 [in_i] 60 [in_i] eCW1 ([facility]) Body mass index (BMI) [Ratio] 33.70 kg/m2 33.70 kg/m2 eCW1 ([facility]) Heart rate 96 /min 96 /min eCW1 ([facility]) Respiratory rate 18 /min 18 /min eCW1 ([facility]) Body temperature 98.1 [degF] 98.1 [degF] eCW1 ( [facility]) Systolic blood pressure 128 mm[Hg] 128 mm[Hg] e CW1 ([facility]) Diastolic blood pressure 80 mm[Hg] 80 mm[Hg] eCW1 ([facility]) Respiratory rate 18 /min 18 /min eCW1 ([facility]) Body temperature 98.8 [degF] 98.8 [degF] eCW1 ( [facility]) Systolic blood pressure 111 mm[Hg] 111 mm[Hg] e CW1 ([facility]) Diastolic blood pressure 69 mm[Hg] 69 mm[Hg] eCW1 ([facility]) Body weight 176.0 [lb_av] 176.0 [lb_av] eCW1 ([facility]) Body height 60 [in_i] 60 [in_i] eCW1 ([facility]) Body mass index (BMI) [Ratio] 34.37 kg/m2 34.37 kg/m2 eCW1 ([facility]) Heart rate 81 /min 81 /min eCW1 ([facility]) Body weight 170 [lb_av] 170 [lb_av] eCW1 ([facility]) Body height 60 [in_i] 60 [in_i] eCW1 ([facility]) Body mass index (BMI) [Ratio] 33.20 kg/m2 33.20 kg/m2 eCW1 ([facility]) Heart rate 100 /min 100 /min eCW1 ([facility]) Respiratory rate 18 /min 18 /min eCW1 ([facility]) Body temperature 98 [degF] 98 [degF] eCW1 ([facility]) Systolic blood pressure 136 mm[Hg] 136 mm[Hg] e CW1 ([facility]) Diastolic blood pressure 80 mm[Hg] 80 mm[Hg] eCW1 ([facility]) Systolic blood pressure 122 mm[Hg] 122 mm[Hg] M EDENT ([facility], ) Diastolic blood pressure 68 mm[Hg] 68 mm[Hg] [facility] ([facility]) Body height 61 [in_i] 61 [in_i] [facility] ([facility], ) 5'1" Body weight 169.00 [lb_av] 169.00 [lb_av] MEDEN T ([facility]) Body mass index (BMI) [Ratio] 31.9 kg/m2 31.9 k g/m2 [facility] ([facility]) [place] body weight 105 [lb_av] 105 [lb_av] MEDEN T ([facility]) Body weight 76.658 kg 76.658 kg [facility] ([facility]) Body surface area Derived from formula 1.76 m2 1.76 m2 [facility] ([facility]) Body weight 170.0 [lb_av] 170.0 [lb_av] eCW1 ([facility]) Body height 60 [in_i] 60 [in_i] eCW1 ([facility]) Body mass index (BMI) [Ratio] 33.20 kg/m2 33.20 kg/m2 W1 ([facility]) Heart rate 93 /min 93 /min eCW1 ([facility]) Respiratory rate 18 /min 18 /min eCW1 ([facility]) Body temperature 97.3 [degF] 97.3 [degF] eCW1 ( [facility]) Systolic blood pressure 120 mm[Hg] 120 mm[Hg] e CW1 ([facility]) Diastolic blood pressure 80 mm[Hg] 80 mm[Hg] eCW1 ([facility]) Body weight 171.12 [lb_av] 171.12 [lb_av] MEDEN [...] Body weight 171 [lb_av] 171 [lb_av] eCW1 ([facility]) Body height 60 [in_i] 60 [in_i] eCW1 ([facility]) Body mass index (BMI) [Ratio] 33.39 kg/m2 33.39 kg/m2 eCW1 ([facility]) Systolic blood pressure 122 mm[Hg] 122 mm[Hg] e CW1 ([facility]) Diastolic blood pressure 74 mm[Hg] 74 mm[Hg] eCW1 ([facility]) Body weight 173.4 [lb_av] 173.4 [lb_av] eCW1 ([facility]) Body height 60 [in_i] 60 [in_i] eCW1 ([facility]) Body mass index (BMI) [Ratio] 33.86 kg/m2 33.86 kg/m2 eCW1 ([facility]) Heart rate 90 /min 90 /min eCW1 ([facility]) Respiratory rate 16 /min 16 /min eCW1 ([facility]) Body temperature 97.4 [degF] 97.4 [degF] eCW1 ( [facility]) Systolic blood pressure 118 mm[Hg] 118 mm[Hg] e CW1 ([facility]) Diastolic blood pressure 64 mm[Hg] 64 mm[Hg] eCW1 ([facility]) Patient Treatment Plan of Care Planned Activity Planned Date Details Description Data Source (s) pregabalin 150 MG Oral Capsule [Lyrica] 06/30/2021 12:00:00 AM EDT eCW1 ([facility]) tramadol hydrochloride 50 MG Oral Tablet 06/30/2021 12:00:00 AM EDT eCW1 ([facility]) atorvastatin 80 MG Oral Tablet 06/30/2021 12:00:00 AM EDT eCW1 ([facility]) Metformin hydrochloride 850 MG Oral Tablet 06/30/2021 12:00:00 AM E DT eCW1 ([facility]) Metformin hydrochloride 850 MG Oral Tablet 06/30/2021 12:00:00 AM E DT eCW1 ([facility]) pregabalin 150 MG Oral Capsule [Lyrica] 06/30/2021 12:00:00 AM EDT eCW1 ([facility]) tramadol hydrochloride 50 MG Oral Tablet 06/30/2021 12:00:00 AM EDT eCW1 ([facility]) atorvastatin 80 MG Oral Tablet 06/30/2021 12:00:00 AM EDT eCW1 ([facility]) 8 HR Acetaminophen 650 MG Extended Release Oral Tablet 06/01/2021 12:00:00 AM EDT eCW1 ([facility]) Clobetasol Propionate 0.5 MG/ML Topical Foam 06/01/2021 12:00:00 AM EDT eCW1 ([facility]) cefdinir 300 MG Oral Capsule 06/01/2021 12:00:00 AM EDT eCW1 ([facility]) 8 HR Acetaminophen 650 MG Extended Release Oral Tablet 06/01/2021 12:00:00 AM EDT eCW1 ([facility]) Clobetasol Propionate 0.5 MG/ML Topical Foam 06/01/2021 12:00:00 AM EDT eCW1 ([facility]) cefdinir 300 MG Oral Capsule 06/01/2021 12:00:00 AM EDT eCW1 ([facility]) 8 HR Acetaminophen 650 MG Extended Release Oral Tablet 06/01/2021 12:00:00 AM EDT eCW1 ([facility]) Clobetasol Propionate 0.5 MG/ML Topical Foam 06/01/2021 12:00:00 AM EDT eCW1 ([facility]) cefdinir 300 MG Oral Capsule 06/01/2021 12:00:00 AM EDT eCW1 ([facility]) 8 HR Acetaminophen 650 MG Extended Release Oral Tablet 06/01/2021 12:00:00 AM EDT eCW1 ([facility]) Clobetasol Propionate 0.5 MG/ML Topical Foam 06/01/2021 12:00:00 AM EDT eCW1 ([facility]) cefdinir 300 MG Oral Capsule 06/01/2021 12:00:00 AM EDT eCW1 ([facility]) 8 HR Acetaminophen 650 MG Extended Release Oral Tablet 06/01/2021 12:00:00 AM EDT eCW1 ([facility]) Clobetasol Propionate 0.5 MG/ML Topical Foam 06/01/2021 12:00:00 AM EDT eCW1 ([facility]) cefdinir 300 MG Oral Capsule 06/01/2021 12:00:00 AM EDT eCW1 ([facility]) 8 HR Acetaminophen 650 MG Extended Release Oral Tablet 06/01/2021 12:00:00 AM EDT eCW1 ([facility]) Clobetasol Propionate 0.5 MG/ML Topical Foam 06/01/2021 12:00:00 AM EDT eCW1 ([facility]) cefdinir 300 MG Oral Capsule 06/01/2021 12:00:00 AM EDT eCW1 ([facility]) cefdinir 300 MG Oral Capsule 06/01/2021 12:00:00 AM EDT eCW1 ([facility]) 8 HR Acetaminophen 650 MG Extended Release Oral Tablet 06/01/2021 12:00:00 AM EDT eCW1 ([facility]) Clobetasol Propionate 0.5 MG/ML Topical Foam 06/01/2021 12:00:00 AM EDT eCW1 ([facility]) pregabalin 150 MG Oral Capsule [Lyrica] 05/26/2021 12:00:00 AM EDT eCW1 ([facility]) tramadol hydrochloride 50 MG Oral Tablet 05/26/2021 12:00:00 AM EDT eCW1 ([facility]) pregabalin 150 MG Oral Capsule [Lyrica] 05/26/2021 12:00:00 AM EDT eCW1 ([facility]) pregabalin 150 MG Oral Capsule [Lyrica] 05/26/2021 12:00:00 AM EDT eCW1 ([facility]) tramadol hydrochloride 50 MG Oral Tablet 05/26/2021 12:00:00 AM EDT eCW1 ([facility]) pregabalin 150 MG Oral Capsule [Lyrica] 05/26/2021 12:00:00 AM EDT eCW1 ([facility]) pregabalin 150 MG Oral Capsule [Lyrica] 05/26/2021 12:00:00 AM EDT eCW1 ([facility]) tramadol hydrochloride 50 MG Oral Tablet 05/26/2021 12:00:00 AM EDT eCW1 ([facility]) pregabalin 150 MG Oral Capsule [Lyrica] 05/26/2021 12:00:00 AM EDT eCW1 ([facility]) pregabalin 150 MG Oral Capsule [Lyrica] 05/26/2021 12:00:00 AM EDT eCW1 ([facility]) tramadol hydrochloride 50 MG Oral Tablet 05/26/2021 12:00:00 AM EDT eCW1 ([facility]) pregabalin 150 MG Oral Capsule [Lyrica] 05/26/2021 12:00:00 AM EDT eCW1 ([facility]) duloxetine 20 MG Delayed Release Oral Capsule 05/17/2021 12:00:00 A M EDT eCW1 ([facility]) duloxetine 20 MG Delayed Release Oral Capsule 05/17/2021 12:00:00 A M EDT eCW1 ([facility]) duloxetine 20 MG Delayed Release Oral Capsule 05/17/2021 12:00:00 A M EDT eCW1 ([facility]) duloxetine 20 MG Delayed Release Oral Capsule 05/17/2021 12:00:00 A M EDT eCW1 ([facility]) Pseudoephedrine Hydrochloride 30 MG Oral Tablet 03/16/2021 12:00:00 AM EDT eCW1 ([facility]) Amoxicillin 500 MG / Clavulanate 125 MG Oral Tablet [A ugmentin] 03/16/2021 12:00:00 AM EDT eCW1 ([facility]) Pseudoephedrine Hydrochloride 30 MG Oral Tablet 03/16/2021 12:00:00 AM EDT eCW1 ([facility]) Amoxicillin 500 MG / Clavulanate 125 MG Oral Tablet [A ugmentin] 03/16/2021 12:00:00 AM EDT eCW1 ([facility]) Bupropion Hydrochloride 75 MG Oral Tablet 02/15/2021 12:00:00 AM ED T eCW1 ([facility]) Bupropion Hydrochloride 75 MG Oral Tablet 02/15/2021 12:00:00 AM ED T eCW1 ([facility]) Bupropion Hydrochloride 75 MG Oral Tablet 02/15/2021 12:00:00 AM ED T eCW1 ([facility]) Bupropion Hydrochloride 75 MG Oral Tablet 02/15/2021 12:00:00 AM ED T eCW1 ([facility]) Bupropion Hydrochloride 75 MG Oral Tablet 02/15/2021 12:00:00 AM ED T eCW1 ([facility]) Bupropion Hydrochloride 75 MG Oral Tablet 02/15/2021 12:00:00 AM ED T eCW1 ([facility]) Bupropion Hydrochloride 75 MG Oral Tablet 02/15/2021 12:00:00 AM ED T eCW1 ([facility]) Bupropion Hydrochloride 75 MG Oral Tablet 02/15/2021 12:00:00 AM ED T eCW1 ([facility]) Bupropion Hydrochloride 75 MG Oral Tablet 02/15/2021 12:00:00 AM ED T eCW1 ([facility]) Bupropion Hydrochloride 75 MG Oral Tablet 02/15/2021 12:00:00 AM ED T eCW1 ([facility]) Bupropion Hydrochloride 75 MG Oral Tablet 02/15/2021 12:00:00 AM ED T eCW1 ([facility]) cefdinir 300 MG Oral Capsule 02/09/2021 12:00:00 AM EDT eCW1 ([facility]) cefdinir 300 MG Oral Capsule 02/09/2021 12:00:00 AM EDT eCW1 ([facility]) Aspirin 81 MG Delayed Release Oral Tablet 01/05/2021 12:00:00 AM ED T eCW1 ([facility]) Aspirin 81 MG Delayed Release Oral Tablet 01/05/2021 12:00:00 AM ED T eCW1 ([facility]) atorvastatin 20 MG Oral Tablet 01/05/2021 12:00:00 AM EDT eCW1 ([facility]) Aspirin 81 MG Delayed Release Oral Tablet 01/05/2021 12:00:00 AM ED T eCW1 ([facility]) atorvastatin 20 MG Oral Tablet 01/05/2021 12:00:00 AM EDT eCW1 ([facility]) Aspirin 81 MG Delayed Release Oral Tablet 01/05/2021 12:00:00 AM ED T eCW1 ([facility]) atorvastatin 20 MG Oral Tablet 01/05/2021 12:00:00 AM EDT eCW1 ([facility]) Aspirin 81 MG Delayed Release Oral Tablet 01/05/2021 12:00:00 AM ED T eCW1 ([facility]) atorvastatin 20 MG Oral Tablet 01/05/2021 12:00:00 AM EDT eCW1 ([facility]) atorvastatin 20 MG Oral Tablet 01/05/2021 12:00:00 AM EDT eCW1 ([facility]) Aspirin 81 MG Delayed Release Oral Tablet 01/05/2021 12:00:00 AM ED T eCW1 ([facility]) Aspirin 81 MG Delayed Release Oral Tablet 01/05/2021 12:00:00 AM ED T eCW1 ([facility]) Fluocinolone Acetonide 0.1 MG/ML Topical Solution 01/04/2021 12: 00:00 AM EDT eCW1 ([facility]) Pimecrolimus 10 MG/ML Topical Cream [Elidel] 12/29/2020 12:00:00 AM EDT eCW1 ([facility]) Fluocinonide 0.5 MG/ML Topical Solution 12/29/2020 12:00:00 AM EDT eCW1 ([facility]) Pimecrolimus 10 MG/ML Topical Cream [Elidel] 12/29/2020 12:00:00 AM EDT eCW1 ([facility]) Fluocinonide 0.5 MG/ML Topical Solution 12/29/2020 12:00:00 AM EDT eCW1 ([facility]) azelaic acid 200 MG/ML Topical Cream [Azelex] 12/29/2020 12:00:00 A M EDT eCW1 ([facility]) Pimecrolimus 10 MG/ML Topical Cream [Elidel] 12/29/2020 12:00:00 AM EDT eCW1 ([facility]) Fluocinonide 0.5 MG/ML Topical Solution 12/29/2020 12:00:00 AM EDT eCW1 ([facility]) Pimecrolimus 10 MG/ML Topical Cream [Elidel] 12/29/2020 12:00:00 AM EDT eCW1 ([facility]) Fluocinonide 0.5 MG/ML Topical Solution 12/29/2020 12:00:00 AM EDT eCW1 ([facility]) azelaic acid 200 MG/ML Topical Cream [Azelex] 12/29/2020 12:00:00 A M EDT eCW1 ([facility]) Furosemide 40 MG Oral Tablet [Lasix] 11/25/2020 12:00:00 AM EDT eCW1 ([facility]) Furosemide 40 MG Oral Tablet [Lasix] 11/25/2020 12:00:00 AM EDT eCW1 ([facility]) Furosemide 40 MG Oral Tablet [Lasix] 11/25/2020 12:00:00 AM EDT eCW1 ([facility]) Furosemide 40 MG Oral Tablet [Lasix] 11/25/2020 12:00:00 AM EDT eCW1 ([facility]) Furosemide 40 MG Oral Tablet [Lasix] 11/25/2020 12:00:00 AM EDT eCW1 ([facility]) Azelastine HCl 0.1 % 08/31/2020 12:00:00 AM EST eCW1 ([facility]) Azelastine HCl 0.1 % 08/31/2020 12:00:00 AM EST eCW1 ([facility]) Azelastine HCl 0.1 % 08/31/2020 12:00:00 AM EST eCW1 ([facility]) Loratadine 10 MG Oral Tablet 08/30/2020 12:00:00 AM EST eCW1 ([facility]) Loratadine 10 MG Oral Tablet 08/30/2020 12:00:00 AM EST eCW1 ([facility]) Loratadine 10 MG Oral Tablet 08/30/2020 12:00:00 AM EST eCW1 ([facility]) Fluocinolone Acetonide 0.25 MG/ML Topical Cream 07/29/2020 12:00:00 AM EST eCW1 ([facility]) Cetirizine HCl 10 MG 07/29/2020 12:00:00 AM EST eCW1 ([facility]) Cetirizine HCl 10 MG 07/29/2020 12:00:00 AM EST eCW1 ([facility]) Fluocinolone Acetonide 0.25 MG/ML Topical Cream 07/29/2020 12:00:00 AM EST eCW1 ([facility]) cetirizine hydrochloride 10 MG Chewable Tablet 07/29/2020 12:00:00 AM EST eCW1 ([facility]) Cetirizine HCl 10 MG 07/29/2020 12:00:00 AM EST eCW1 ([facility]) Fluocinolone Acetonide 0.25 MG/ML Topical Cream 07/29/2020 12:00:00 AM EST eCW1 ([facility]) cetirizine hydrochloride 10 MG Chewable Tablet 07/29/2020 12:00:00 AM EST eCW1 ([facility]) Cetirizine HCl 10 MG 07/29/2020 12:00:00 AM EST eCW1 ([facility]) Fluocinolone Acetonide 0.25 MG/ML Topical Cream 07/29/2020 12:00:00 AM EST eCW1 ([facility]) cetirizine hydrochloride 10 MG Chewable Tablet 07/29/2020 12:00:00 AM EST eCW1 ([facility]) Diclofenac Sodium 0.01 MG/MG Topical Gel [Voltaren] 07/09/20 12:00:00 AM EDT eCW1 ([facility]) Diclofenac Sodium 0.01 MG/MG Topical Gel [Voltaren] 07/09/20 12:00:00 AM EDT eCW1 ([facility]) Diclofenac Sodium 0.01 MG/MG Topical Gel [Voltaren] 07/09/20 12:00:00 AM EDT eCW1 ([facility]) Diclofenac Sodium 0.01 MG/MG Topical Gel [Voltaren] 07/09/20 12:00:00 AM EDT eCW1 ([facility]) Ciprofloxacin 250 MG Oral Tablet [Cipro] 06/23/2020 12:00:00 AM EDT eCW1 ([facility])
[2021-07-02 17:01] LABS: ERYTHROCYTE SEDIMENTATION RATE 6 mm/hr (0-30)
--- NOTE | 2021-07-02 17:01 | REP ---
INDICATION: elbow, upper arm pain, no JOEY. COMPARISON: None. TECHNIQUE: Multiple ultrasonographic images of the deep venous structures of the right upper extremity were obtained to rule out deep venous thrombosis. The contralateral subclavian vein was also interrogated in a limited fashion for comparison. FINDINGS: There is no abnormal echogenic material seen in any of the visualized deep venous structures of the right upper extremity. Coaptation where applicable is appropriate throughout. IMPRESSION: Negative exam. <Electronically signed by Jere Holden > 07/02/21 [id number]
[2021-07-02 17:37] VITALS: BP 126/74
== END 2021-07-02 18:03 | disposition home or self-care (01) ==
LOC: M ED 13:06
DX: M77.11 Lateral epicondylitis, right elbow (principal); J45.909 Unspecified asthma, uncomplicated; B00.9 Herpesviral infection, unspecified; G47.33 Obstructive sleep apnea (adult) (pediatric); K21.9 Gastro-esophageal reflux disease without esophagitis; Z79.899 Other long term (current) drug therapy; Z79.82 Long term (current) use of aspirin; Z88.1 Allergy status to other antibiotic agents; Z88.5 Allergy status to narcotic agent; Z88.8 Allergy status to other drugs, medicaments and biological substances; Z91.018 Allergy to other foods; Z91.040 Latex allergy status

== ENCOUNTER → 2021-07-21 | Outpatient (CLI) | payer OTHER ==
[~2021-07-21] MED LIST changes: +ACET-683 PO
== END ==
LOC: M PAIN 11:45
PROVIDERS: ATTEND Anesthesiology
DX: M54.12 Radiculopathy, cervical region (principal); M96.1 Postlaminectomy syndrome, not elsewhere classified; E11.9 Type 2 diabetes mellitus without complications; K21.9 Gastro-esophageal reflux disease without esophagitis; J45.909 Unspecified asthma, uncomplicated; G43.909 Migraine, unspecified, not intractable, without status migrainosus; M79.7 Fibromyalgia; Z86.59 Personal history of other mental and behavioral disorders; Z87.891 Personal history of nicotine dependence; Z88.1 Allergy status to other antibiotic agents; Z88.8 Allergy status to other drugs, medicaments and biological substances; Z91.013 Allergy to seafood; Z91.040 Latex allergy status; Z79.82 Long term (current) use of aspirin; Z79.84 Long term (current) use of oral hypoglycemic drugs; Z79.899 Other long term (current) drug therapy

== ENCOUNTER 2021-07-26 11:20 | Emergency (ER) | payer OTHER ==
[~2021-07-26] VITALS: Ht 154.9 cm; Wt 78.0 kg
--- OUTSIDE RECORDS SUMMARY | 2021-07-26 11:30 | CCD ---
Author Author [facility] Organization [facility] Address Unknown Phone Unavailable Care Team Providers Care Otolaryngology Nurse Name Role Phone Johann Alejandro Unavailable PROBLEMS Type Condition ICD9-CM Code DHD17-DI Code Onset Dates Condition S tatus W/U Status Risk SNOMED Code Notes Problem Migraine without aura and with status migrainosu s, not intractable G43.001 Active confirmed 570292494 Problem Myalgia, other site M79.18 Active confirmed 85816424 Problem Hot flashes due to surgical menopause E89.41 Ac tive confirmed 998338619 Problem Memory problem R41.3 Active confirmed 98454 7006 Problem Memory difficulties R41.3 Active confirmed 369429029 Problem Chronic diarrhea K52.9 Active confirmed 236 113478 Problem 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 Active confirmed 54481108 Problem Dependent edema R60.9 Active confirmed 2484 78317 Problem 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 Active confirmed 445205265 Problem Sleep disturbance G47.9 Active confirmed 53 283344 Problem Lumbago with sciatica, right side M54.41 Active confirmed 559561619 Problem Spondylosis of cervicothorac ic region without myelopathy or radiculopathy M47.813 Active confirmed 91579717 Problem Cervical post-laminectomy syndrome M96.1 Activ e confirmed 646170132 Problem Fibromyalgia M79.7 Active confirmed 4920587 05 Problem Perioral dermatitis L71.0 Active confirmed 264154204 Problem Comedonal acne L70.0 Active confirmed 85851 4006 Problem Asthma, exercise induced J45.990 Active confirmed 78694416 Problem LOU (obstructive sleep apnea) G47.33 Active confirm ed 17352185 Problem Bilateral carpal tunnel syndrome G56.03 Active conf irmed 14303125 Problem Mixed hyperlipidemia E78.2 Active confirmed 827978349 Problem Bilateral occipital neuralgia M54.81 Active confirm ed 76929738 Problem Seborrheic dermatitis L21.9 Active confirmed 96477247 Problem Decreased hearing of both ears H91.93 Active confir med 055228378 Problem Urinary frequency R35.0 Active confirmed 16 0539358 Problem Stress incontinence N39.3 Active confirmed 76318048 Problem Fatigue, unspecified type R53.83 Active confirmed 11728316 Problem Irritable bowel syndrome with diarrhea K58.0 A ctive confirmed 454715724 Problem Depression, unspecified depression type F32.9 Active confirmed 86785464 Problem Genital herpes simplex, unspecified site A60.00 Active confirmed 74335849 Problem Cervical disc disorder with radiculopath y, unspecified cervical region M50.10 Active confirmed 027944807 Problem Moderate persistent asthma, unspecified whether complicate d J45.40 Active confirmed 777459620 Problem Pain in right finger(s) M79.644 Active confirmed 556449764754732 Problem Postmenopausal atrophic vaginitis N95.2 Active con firmed 31708440 Problem Mild persistent asthma without complication J45.30 Active confirmed 520979079 Problem Pain in left finger(s) M79.645 Active confirmed 59636759484008617 Problem Chronic migraine G43.709 Active confirmed 42 3513214 Problem Chronic GERD K21.9 Active confirmed 9324139 09 Problem Seasonal 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, unspecified trigger J3 0.2 Active confirmed 468208342 Problem Genital herpes A60.00 Active confirmed 48399 006 Problem Hepatic steatosis K76.0 Active confirmed 19 1165886 Problem Olecranon bursitis of right elbow M70.21 Active confirmed 676584060932922 Problem Other chronic pain G89.29 Active confirmed 8 3392102 Problem NAFL (nonalcoholic fatty liver) K76.0 Active confi rmed 733357472 Problem Pre-diabetes R73.03 Active confirmed 2198867 02 ALLERGIES Allergen (clinical drug ingredient) Drug/Non Drug Allergy do cumented on EMR Reaction Allergy Type Onset Date Status Latex Latex rash Drug Allergy Active vancomycin Vancomycin HCl([facility] Code:[address]-37) hives/layla athing problems Drug Allergy Active Doxycycline Calcium hives/breathing problems Drug Allergy Active Gonadotropins, Equine Horse-derived Products Unknown Drug Allergy Active crab allergenic extract Crab (Diagnostic)([facility] Code:[address]-38 ) Anaphylaxis Drug Allergy Active topiramate Topamax([facility] Code:[address]-60) headache Drug Allergy Active ENCOUNTERS from 1960 to 2021-07-04 Encounter Location Date Provider Diagnosis [facility] [address] Floor [phone] [place] [address] Jun, Johann Alejandro Spondylosis of cervi cothoracic region without myelopathy or radiculopathy M47.813 IMMUNIZATIONS Vaccine Route Administration Date Status COVID-19 [...] Education Language: Question Answer Notes Languages spoken: South Korean other-Hebrew is her first language Christian: Question Answer Notes Christian 08 Religion Domestic Violence: Question Answer Notes [...] lesions Three times a day Jun, Not-Taking [place] 3 1000 MG 1 capsule Orally Once [...] Information RESULTS No Results REASON FOR VISIT lyrica/rizatript/tramadol/cyclo/dulox MEDICAL (GENERAL) HISTORY Type Description Date Medical [...] and fusion (ACDF) by Dr. Bill Hernandez, [facility] 06/04/15 Surgical History left CTS release 09/13/17 Surgical History TVT procedure Dr Cody 04/2018 Surgical History left hand carpal tunnel release 2017 Hospitalization History ACDF surgery, [facility] 92/15-06/07/15 Hospitalization History C-Diff 08/14/17-08/18/17 Goals Section No Information Health Concerns No Information MEDICAL EQUIPMENT No Information MENTAL STATUS No Information FUNCTIONAL STATUS No Information ASSESSMENTS Encounter Date Diagnosis Assessment Notes Treatment Notes Treatm ent Clinical Notes Jun, Spondylosis of cervicothorac ic region without myelopathy or radiculopathy (ICD-10 - M47.813) PLAN OF TREATMENT Medication Medication Name Sig [...] Name:Rosalba Kelly, 2021-07-06 10 :45:00 AM, [address] [facility] [address] , , [place], [address], Provider Name:Johann Alejandro, 2021-07-21 11:45:00 AM, [address], , [place], [address], Provider Name:Seble Mayberry, 03:45:00 PM, [address] [facility], , [place], [address], Insurance Providers Payer Name Payer Address Payer Phone Insured Name Patient Relati onship to Insured Coverage Start Date Coverage End Date [facility] COMMUNITY PLAN [facility] [address] [facility] [address] DELIA BLOUNT self
--- OUTSIDE RECORDS SUMMARY | 2021-07-26 11:30 | CCD ---
Author Author [facility] Organization [facility] Address Unknown Phone Unavailable Care Team Providers Care Animal Care Technician Name Role Phone Leticia Rosalba Unavailable PROBLEMS ALLERGIES ENCOUNTERS from 1960 to 2021-07-22 IMMUNIZATIONS SOCIAL HISTORY REASON FOR REFERRAL No Information VITAL SIGNS MEDICATIONS PROCEDURES No Information RESULTS No Results REASON FOR VISIT No Information MEDICAL (GENERAL) HISTORY Goals Section Health Concerns MEDICAL EQUIPMENT No Information MENTAL STATUS FUNCTIONAL STATUS ASSESSMENTS PLAN OF TREATMENT Insurance Providers
--- OUTSIDE RECORDS SUMMARY | 2021-07-26 11:30 | CCD ---
Author Author [facility] Organization [facility] Address Unknown Phone Unavailable Care Team Providers Care Dye Penetrant Testing Technician Name Role Phone Rosalba Kelly Unavailable PROBLEMS Type Condition ICD9-CM Code KXZ17-BU Code Onset Dates Condition S tatus W/U Status Risk SNOMED Code Notes Problem Migraine without aura and with status migrainosu s, not intractable G43.001 Active confirmed 911900506 Problem Myalgia, other site M79.18 Active confirmed 08016964 Problem Hot flashes due to surgical menopause E89.41 Ac tive confirmed 781516033 Problem Memory problem R41.3 Active confirmed 28168 7006 Problem Memory difficulties R41.3 Active confirmed 735060540 Problem Chronic diarrhea K52.9 Active confirmed 236 633696 Problem 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 Active confirmed 42457934 Problem Dependent edema R60.9 Active confirmed 2484 97336 Problem 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 Active confirmed 450423308 Problem Sleep disturbance G47.9 Active confirmed 53 627246 Problem Lumbago with sciatica, right side M54.41 Active confirmed 966142931 Problem Spondylosis of cervicothorac ic region without myelopathy or radiculopathy M47.813 Active confirmed 49766748 Problem Cervical post-laminectomy syndrome M96.1 Activ e confirmed 436224967 Problem Fibromyalgia M79.7 Active confirmed 6428600 05 Problem Perioral dermatitis L71.0 Active confirmed 097992407 Problem Comedonal acne L70.0 Active confirmed 62081 4006 Problem Asthma, exercise induced J45.990 Active confirmed 31324594 Problem LOU (obstructive sleep apnea) G47.33 Active confirm ed 43077401 Problem Bilateral carpal tunnel syndrome G56.03 Active conf irmed 48800343 Problem Mixed hyperlipidemia E78.2 Active confirmed 443886020 Problem Bilateral occipital neuralgia M54.81 Active confirm ed 67359127 Problem Seborrheic dermatitis L21.9 Active confirmed 65349671 Problem Decreased hearing of both ears H91.93 Active confir med 722139164 Problem Urinary frequency R35.0 Active confirmed 16 0363946 Problem Stress incontinence N39.3 Active confirmed 12672502 Problem Fatigue, unspecified type R53.83 Active confirmed 90524458 Problem Irritable bowel syndrome with diarrhea K58.0 A ctive confirmed 186489602 Problem Depression, unspecified depression type F32.9 Active confirmed 71098966 Problem Genital herpes simplex, unspecified site A60.00 Active confirmed 68463396 Problem Cervical disc disorder with radiculopath y, unspecified cervical region M50.10 Active confirmed 181853641 Problem Moderate persistent asthma, unspecified whether complicate d J45.40 Active confirmed 495403122 Problem Pain in right finger(s) M79.644 Active confirmed 039074391094924 Problem Postmenopausal atrophic vaginitis N95.2 Active con firmed 58865062 Problem Mild persistent asthma without complication J45.30 Active confirmed 692387309 Problem Pain in left finger(s) M79.645 Active confirmed 22445976230973270 Problem Chronic migraine G43.709 Active confirmed 42 6492000 Problem Chronic GERD K21.9 Active confirmed 1440475 09 Problem Seasonal 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, unspecified trigger J3 0.2 Active confirmed 101498826 Problem Genital herpes A60.00 Active confirmed 83130 006 Problem Hepatic steatosis K76.0 Active confirmed 19 0301387 Problem Olecranon bursitis of right elbow M70.21 Active confirmed 716443676241038 Problem Other chronic pain G89.29 Active confirmed 8 2513728 Problem NAFL (nonalcoholic fatty liver) K76.0 Active confi rmed 113784517 Problem Pre-diabetes R73.03 Active confirmed 6849669 02 ALLERGIES Allergen (clinical drug ingredient) Drug/Non Drug Allergy do cumented on EMR Reaction Allergy Type Onset Date Status Latex Latex rash Drug Allergy Active vancomycin Vancomycin HCl([facility]NOTE 2] Code:[address]-69) hives/layla athing problems Drug Allergy Active Doxycycline Calcium hives/breathing problems Drug Allergy Active Gonadotropins, Equine Horse-derived Products Unknown Drug Allergy Active crab allergenic extract Crab (Diagnostic)([facility][NOTE 2] Code:[address]-06 ) Anaphylaxis Drug Allergy Active topiramate Topamax([facility][NOTE 2] Code:[address]-54) headache Drug Allergy Active ENCOUNTERS from 1960 to 2021-07-19 Encounter [place] [address] Jul, Rosalba Kelly IMMUNIZATIONS Vaccine Route Administration Date Status Influenza 18 yrs & older Flublok IM Intramuscular Jun 12, 2018 Administered Moderna #3 dose COVID-19 (given elsewhere) SARSCOV2 VAC 100M CG/0.5ML IM Unknown Jul 06, 2021 Administered COVID-19 dose #1 given elsewhere Unspecified [...] Education Language: Question Answer Notes Languages spoken: Portuguese other-Lithuanian is her first language Gnosticist: Question Answer Notes Gnosticist 08 Jew Domestic Violence: Question Answer Notes Status: Single [...] Notes Start Da te End Date Status traMADol HCl 50 MG 1 tab orally every 6 hours as needed geovani n MDD=3 for 30 days 03/08/21 Jun, Active Wrist Splint/Cock-Up/Left Sm - as directed topically nightly for 90 day(s) Mar, Active Atorvastatin Calcium 80 MG 1 tablet Orally Once a day for 90 day (s) Jun, Active Pseudoephedrine HCl 30 MG 1 tablet 30 minutes prior to hbo treatment for nasal congestion Orally Three times a day for 7 day(s) Mar, Active Wrist Splint/Cock-Up/Right Sm - as directed topically nightly fo r 90 day(s) Mar, Active Vitamin D3 5000 units 1 capsule Orally Once a day Active Lyrica 150 MG 1 capsule Orally for pain MDD4 three carley es daily for 30 days 03/08/21 Jun, Active Azelastine HCl 0.1 % 1 puff in each nostril Nasally Twice a day for 3 0 Active metFORMIN HCl 850 MG 1 tablet with a meal Orally Once a day for 90 day(s) Jun, Active Triamcinolone Acetonide 55 MCG/ACT 1 spray in each nos tril Nasally Once a day for 30 day(s) Active Diphenoxylate-Atropine 2.5-0.025 MG 1 tablet as needed Orally tw o times a day Active [place] 3 1000 MG 1 capsule Orally Once a day Active Medical Compression Stockings - as directed topically daily; ICD10: R60.0 for 99 months Active Voltaren 1 % as directed Externally Q6H as needed for pain fo r 30 Days Jul, Active Pantoprazole Sodium 40 MG TAKE ONE TABLET BY MOUTH TWI CE A DAY orally bid for 90 day(s) Active Cymbalta 20 MG 1 capsule Orally Once a day for 30 day(s) Active hydrOXYzine Pamoate 25 MG 1 capsule as needed Orally nightly for 30 day(s) Jun, Active Dicyclomine HCl 20 MG 1 tablet Orally Four times a day for 30 da y(s) 03/08/21 Feb, Not-Taking Lasix 40 MG 1 tablet Orally Once a day for 90 day(s) Active Acetaminophen ER 650 MG 1 tablets as needed Orally every 4 hrs f or 21 day(s) May, Active Cholestyramine 4 GM/DOSE USE 1 SCOOP TWICE A DAY orally twic e a day for 21 days Active buPROPion HCl 75 MG 1 tablet Orally Daily for 90 days 08 2020 Active Rizatriptan Benzoate 5 MG 1 tablet Orally 1 as needed for migraine headache may repeat in 3 hrs if neded MDD2 for 30 Days Aug, Active DULoxetine HCl 20 MG 1 capsule Orally for pain Daily for 30 days May, Active Cyclobenzaprine HCl 10 MG 1 tablet Orally for spsms an d pain bid as needed MDD2 for 30 days 03/08/21 Jun, Active Aspirin 81 MG 1 tablet Orally Once a day for 90 day(s) Dec, Active Simethicone 80 MG 1 tablet after meals and at bedtime as needed Orally Four times a day as needed for bloating for 30 Days Jul, Active Lutein Vision Blend Orally daily Ac tive Valtrex 1 GM 1 tablet Orally Once a day. If outbreak occurs take 1 tab twice per day for 5 days then continue 1 tab per day Jun, Active Lidocaine 4 % 1 application as needed for pain Externally to lesions Three times a day Jun, Not-Taking Lyrica 150 MG 1 capsule Orally for pain tid for 30 days May, Not-Taking Estrace 1 mg 1 tablet Orally once daily for 90 day(s) Active Estrace 0.1 MG/GM 0.5 gm Vaginal twice a week for 90 day(s) Active Cefdinir 300 MG one tab Orally once a day for 30 days Active Albuterol Sulfate HFA 108 (90 Base) MCG/ACT 2 puffs as needed Inhalation every 4 hrs for 90 day(s) Mar, Active Clobetasol Propionate 0.05 % 1 application to scalp Once a day for 30 days Active PROCEDURES No Information RESULTS No Results REASON FOR VISIT Urgent care records/X ray MEDICAL (GENERAL) HISTORY Type Description Date Medical [...] and fusion (ACDF) by Dr. Bill Hernandez, [facility] 06/04/15 Surgical History left CTS release 09/13/17 Surgical History TVT procedure Dr Cody 04/2018 Surgical History left hand carpal tunnel release 2017 Hospitalization History ACDF surgery, [facility] 925/15-06/07/15 Hospitalization History C-Diff 08/14/17-08/18/17 Goals Section No Information Health Concerns No Information MEDICAL EQUIPMENT No Information MENTAL STATUS No Information FUNCTIONAL STATUS No Information ASSESSMENTS No Information PLAN OF TREATMENT Medication Medication Name Sig Start Date Stop Date Aspirin 81 MG 1 tablet Orally Once a day for 90 day(s) Dec, Pantoprazole Sodium 40 MG TAKE ONE TABLET BY MOUTH TWI CE A DAY orally bid for 90 day(s) Voltaren 1 % as directed Externally Q6H as needed for pain for 30 Days Jul, Simethicone 80 MG 1 tablet after meals and at bedtime as needed Orally Four times a day as needed for bloating for 30 Days Jul, Next Appt Details Provider Name:Johann Alejandro, 2021-07-21 11:45:00 AM, [address], , [place], [address], Provider Name:Rosalba Kelly, 2021-08-08 02 :45:00 PM, [address] [facility] [address] , , [place], [address], Provider Name:Seble Mayberry, 03:45:00 PM, [address] [facility], , [place], [address], Insurance Providers Payer Name Payer Address Payer Phone Insured Name Patient Relati onship to Insured Coverage Start Date Coverage End Date [facility] COMMUNITY [facility] [address] [facility] [phone] DELIA BLOUNT self
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
--- OUTSIDE RECORDS SUMMARY | 2021-07-26 11:30 | CCD ---
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 Name Role Phone Rosalba Kelly Unavailable PROBLEMS Type Condition ICD9-CM Code [id number] Code Onset Dates Condition S tatus W/U Status Risk SNOMED Code Notes Problem Migraine without aura and with status migrainosu s, not intractable G43.001 Active confirmed 728651597 Problem Myalgia, other site M79.18 Active confirmed 13416684 Problem Hot flashes due to surgical menopause E89.41 Ac tive confirmed 243862337 Problem Memory problem R41.3 Active confirmed 42687 7006 Problem Memory difficulties R41.3 Active confirmed 679101229 Problem Chronic diarrhea K52.9 Active confirmed 236 539075 Problem 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 Active confirmed 76580334 Problem Dependent edema R60.9 Active confirmed 2484 87817 Problem 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 Active confirmed 855623323 Problem Sleep disturbance G47.9 Active confirmed 53 971219 Problem Lumbago with sciatica, right side M54.41 Active confirmed 035014332 Problem Spondylosis of cervicothorac ic region without myelopathy or radiculopathy M47.813 Active confirmed 65500653 Problem Cervical post-laminectomy syndrome M96.1 Activ e confirmed 292420291 Problem Fibromyalgia M79.7 Active confirmed 3746031 05 Problem Perioral dermatitis L71.0 Active confirmed 197254049 Problem Comedonal acne L70.0 Active confirmed 54217 4006 Problem Asthma, exercise induced J45.990 Active confirmed 43630711 Problem LOU (obstructive sleep apnea) G47.33 Active confirm ed 46465534 Problem Bilateral carpal tunnel syndrome G56.03 Active conf irmed 02761238 Problem Mixed hyperlipidemia E78.2 Active confirmed 882592829 Problem Bilateral occipital neuralgia M54.81 Active confirm ed 56170967 Problem Seborrheic dermatitis L21.9 Active confirmed 92042179 Problem Decreased hearing of both ears H91.93 Active confir med 303691710 Problem Urinary frequency R35.0 Active confirmed 16 7622187 Problem Stress incontinence N39.3 Active confirmed 32341219 Problem Fatigue, unspecified type R53.83 Active confirmed 17100998 Problem Irritable bowel syndrome with diarrhea K58.0 A ctive confirmed 318872368 Problem Depression, unspecified depression type F32.9 Active confirmed 79599096 Problem Genital herpes simplex, unspecified site A60.00 Active confirmed 45982828 Problem Cervical disc disorder with radiculopath y, unspecified cervical region M50.10 Active confirmed 555047989 Problem Moderate persistent asthma, unspecified whether complicate d J45.40 Active confirmed 034912137 Problem Pain in right finger(s) M79.644 Active confirmed 822287052127734 Problem Postmenopausal atrophic vaginitis N95.2 Active con firmed 77848153 Problem Mild persistent asthma without complication J45.30 Active confirmed 235539770 Problem Pain in left finger(s) M79.645 Active confirmed 39743172935059724 Problem Chronic migraine G43.709 Active confirmed 42 1214515 Problem Chronic GERD K21.9 Active confirmed 9308846 09 Problem Seasonal 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, unspecified trigger J3 0.2 Active confirmed 823201036 Problem Genital herpes A60.00 Active confirmed 99809 006 Problem Hepatic steatosis K76.0 Active confirmed 19 5548807 Problem Olecranon bursitis of right elbow M70.21 Active confirmed 917720597963762 Problem Other chronic pain G89.29 Active confirmed 8 3116004 Problem NAFL (nonalcoholic fatty liver) K76.0 Active confi rmed 188377886 Problem Pre-diabetes R73.03 Active confirmed 7906807 02 ALLERGIES Allergen (clinical drug ingredient) Drug/Non Drug Allergy do cumented on EMR Reaction Allergy Type Onset Date Status Latex Latex rash Drug Allergy Active vancomycin Vancomycin HCl([facility] Code:[address]-04) hives/layla athing problems Drug Allergy Active Doxycycline Calcium hives/breathing problems Drug Allergy Active Gonadotropins, Equine Horse-derived Products Unknown Drug Allergy Active crab allergenic extract Crab (Diagnostic)([facility] Code:[address]-12 ) Anaphylaxis Drug Allergy Active topiramate Topamax([facility] Code:[address]-71) headache Drug Allergy Active ENCOUNTERS from 1960 to 2021-07-07 Encounter Location Date Provider Diagnosis [facility] [place] [address] [phone] [place] [address] Jun, Rosalba Kelly Pain in right elbow M25.521 IMMUNIZATIONS Vaccine Route Administration Date Status Moderna [...] Education Language: Question Answer Notes Languages spoken: Swazi other-Turkmen is her first language Oriental Orthodox: Question Answer Notes Oriental Orthodox 08 Alevism Domestic Violence: Question Answer Notes [...] years REASON FOR REFERRAL from 1960 to 2021-07-07 Reason Severe right posterior elbow pain for 3 weeks with radiation to right proximal forearm on dorsal aspects. Please evaluate and treat. Thank you Diagnosis 1 Pain in right elbow (M25.521 ) Referral Organization [facility] Resident Referring Provider First Name Rosalba Referring Provider Last Name Kelly Referring Provider Specialty Family Medicine Referred Provider Specialty Orthopedic Surgery Referral Priority Urgent Clinical Notes Rosalba Kelly 07/06/2021 10:4 7:05 PM > Patient is a 60 year old female with 3 weeks of severe right elbow pain. She denies trauma, fever, chills. She has went to ER with unremarkable arterial US workup. Your expertise is highly appreciated. Thank youRosalba Kelly 07/06/2021 10:52:57 PM > Correction*unremarkable Veonus duplex ultrasound work up in ER* VITAL SIGNS Weight 176 lbs Jun, Weight-kg 79.83 kg Jun, Height 60 in Jun, BMI 34.37 kg/m2 Jun, Heart Rate 77 /min Jun, Respiratory Rate 18 /min Jun, Temperature 97.6 degrees Fahrenheit Jun, Oximetry 98 Jun, Blood pressure systolic 120 mm Hg Jun, Blood pressure diastolic 76 mm Hg Jun, MEDICATIONS Medication SIG (Take, Route, Frequency, Duration) Notes Start Da te End Date Status traMADol HCl 50 MG 1 tab orally every 6 hours as needed geovani n MDD=3 for 30 days 03/08/21 Jun, Active Azelastine HCl 0.1 % 1 puff in each nostril Nasally Twice a day for 3 0 Active [place] 3 1000 MG 1 capsule Orally Once a day Active Pseudoephedrine HCl 30 MG 1 tablet 30 minutes prior to hbo treatment for nasal congestion Orally Three times a day for 7 day(s) Mar, Active Diphenoxylate-Atropine 2.5-0.025 MG 1 tablet as needed Orally tw o times a day Active Atorvastatin Calcium 80 MG 1 tablet Orally Once a day for 90 day (s) Jun, Active Lyrica 150 MG 1 capsule Orally for pain MDD4 three carley es daily for 30 days 03/08/21 Jun, Active Medical Compression Stockings - as directed topically daily; ICD10: R60.0 for 99 months Active hydrOXYzine Pamoate 25 MG 1 capsule as needed Orally nightly for 30 day(s) Jun, Active Triamcinolone Acetonide 55 MCG/ACT 1 spray in each nos tril Nasally Once a day for 30 day(s) Active Cymbalta 20 MG 1 capsule Orally Once a day for 30 day(s) Active metFORMIN HCl 850 MG 1 tablet with a meal Orally Once a day for 90 day(s) Jun, Active Aspirin 81 MG 1 tablet Orally Once a day Dec, Active Rizatriptan Benzoate 5 MG 1 tablet Orally 1 as needed for migraine headache may repeat in 3 hrs if neded MDD2 for 30 Days Aug, Active Dicyclomine HCl 20 MG 1 tablet Orally Four times a day for 30 da y(s) 03/08/21 Feb, Not-Taking Lutein Vision Blend Orally daily Ac tive Lasix 40 MG 1 tablet Orally Once a day for 90 day(s) Active Acetaminophen ER 650 MG 1 tablets as needed Orally every 4 hrs f or 21 day(s) May, Active Cholestyramine 4 GM/DOSE USE 1 SCOOP TWICE A DAY orally twic e a day for 21 days Active buPROPion HCl 75 MG 1 tablet Orally Daily for 90 days 2020 Active Pantoprazole Sodium 40 MG TAKE ONE TABLET BY MOUTH TWI CE A DAY orally bid for 30 Active DULoxetine HCl 20 MG 1 capsule Orally for pain Daily for 30 days May, Active Cyclobenzaprine HCl 10 MG 1 tablet Orally for spsms an d pain bid as needed MDD2 for 30 days 03/08/21 Jun, Active Wrist Splint/Cock-Up/Right Sm - as directed topically nightly fo r 90 day(s) Mar, Active Wrist Splint/Cock-Up/Left Sm - as directed topically nightly for 90 day(s) Mar, Active Vitamin D3 5000 units 1 capsule Orally Once a day Active Valtrex 1 GM 1 tablet Orally [...] Information RESULTS No Results REASON FOR VISIT Right elbow pain MEDICAL [...] Treatment Notes Treatm ent Clinical Notes Jun, Pain in right elbow (ICD-10 - M25.521) Right posterior elbow pain radiating to right proximal forearm on distal aspect. Differential diagnosis include posterior impingement syndrome vs triceps tendinoplasty vs olecranon bursitis. Recommend continued conservative therapy including rest of right upper extremity and icing. Patient refused physical therapy as she has had PT for 22 years before without effect. Patient went to ER due to severe right elbow pain and had a negative right upper extremity venous ultrasound. She also reported she went to urgent care and had an unremarkable X ray; no record available for review and will need to request records from urgent care. Patient may continue current medications. Will refer to orthopedic surgery for further evaluation and evaluation due to severe pain reported by patient PLAN OF TREATMENT Treatment Notes Assessment Notes Clinical Notes Pain in right elbow Right posterior elbo w pain radiating to right proximal forearm on distal aspect. Differential diagnosis include posterior impingement syndrome vs triceps tendinoplasty vs olecranon bursitis. Recommend continued conservative therapy including rest of right upper extremity and icing. Patient refused physical therapy as she has had PT for 22 years before without effect. Patient went to ER due to severe right elbow pain and had a negative right upper extremity venous ultrasound. She also reported she went to urgent care and had an unremarkable X ray; no record available for review and will need to request records from urgent care. Patient may continue current medications. Will refer to orthopedic surgery for further evaluation and evaluation due to severe pain reported by patient Referrals Referral Date Details Severe right posterior elbow pain for 3 weeks with radiation to right proximal forearm on dorsal aspects. Please evaluate and treat. Thank you Next Appt Details 4-6 Weeks Reason:right elbow pain Provider Name:Johann Alejandro, 2021-07-21 11:45:00 AM, [address], , [place], [address], Provider Name:Rosalba Kelly, 2021-08-08 02 :45:00 PM, [address] [facility], , [place], [address], Provider Name:[facility], 2021-12- 22 03:45:00 PM, [address] [facility], , [place], [address], Follow Up:4-6 Weeksright elbow pain Insurance Providers Payer Name Payer Address Payer Phone Insured Name Patient Relati onship to Insured Coverage Start Date Coverage End Date [facility] [address] [facility] [phone] DELIA BLOUNT self
--- OUTSIDE RECORDS SUMMARY | 2021-07-26 11:31 | CCD ---
Author Author [facility] Organization [facility] Address Unknown Phone Unavailable Care Team Providers Care Hand Finisher Name Role Phone Nafisa Fajardo Unavailable PROBLEMS Type Condition ICD9-CM Code WMW12-YH Code Onset Dates Condition S tatus W/U Status Risk SNOMED Code Notes Problem Migraine without aura and with status migrainosu s, not intractable G43.001 Active confirmed 060147289 Problem Myalgia, other site M79.18 Active confirmed 81650346 Problem Hot flashes due to surgical menopause E89.41 Ac tive confirmed 039563559 Problem Memory problem R41.3 Active confirmed 18719 7006 Problem Memory difficulties R41.3 Active confirmed 582291322 Problem Chronic diarrhea K52.9 Active confirmed 236 869455 Problem 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 Active confirmed 94680643 Problem Dependent edema R60.9 Active confirmed 2484 96457 Problem 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 Active confirmed 991203357 Problem Sleep disturbance G47.9 Active confirmed 53 239795 Problem Lumbago with sciatica, right side M54.41 Active confirmed 439251028 Problem Spondylosis of cervicothorac ic region without myelopathy or radiculopathy M47.813 Active confirmed 59982179 Problem Cervical post-laminectomy syndrome M96.1 Activ e confirmed 322638073 Problem Fibromyalgia M79.7 Active confirmed 6901781 05 Problem Perioral dermatitis L71.0 Active confirmed 341124491 Problem Comedonal acne L70.0 Active confirmed 33479 4006 Problem Asthma, exercise induced J45.990 Active confirmed 20106720 Problem LOU (obstructive sleep apnea) G47.33 Active confirm ed 98659296 Problem Bilateral carpal tunnel syndrome G56.03 Active conf irmed 69744264 Problem Mixed hyperlipidemia E78.2 Active confirmed 349399666 Problem Bilateral occipital neuralgia M54.81 Active confirm ed 47010255 Problem Seborrheic dermatitis L21.9 Active confirmed 28868181 Problem Decreased hearing of both ears H91.93 Active confir med 076906497 Problem Urinary frequency R35.0 Active confirmed 16 7032549 Problem Stress incontinence N39.3 Active confirmed 98198075 Problem Fatigue, unspecified type R53.83 Active confirmed 19776031 Problem Irritable bowel syndrome with diarrhea K58.0 A ctive confirmed 321866766 Problem Depression, unspecified depression type F32.9 Active confirmed 91383728 Problem Genital herpes simplex, unspecified site A60.00 Active confirmed 80641422 Problem Cervical disc disorder with radiculopath y, unspecified cervical region M50.10 Active confirmed 122097779 Problem Moderate persistent asthma, unspecified whether complicate d J45.40 Active confirmed 629988588 Problem Pain in right finger(s) M79.644 Active confirmed 859961204618700 Problem Postmenopausal atrophic vaginitis N95.2 Active con firmed 12959661 Problem Mild persistent asthma without complication J45.30 Active confirmed 448671023 Problem Pain in left finger(s) M79.645 Active confirmed 97384189307424045 Problem Chronic migraine G43.709 Active confirmed 42 1117737 Problem Chronic GERD K21.9 Active confirmed 2002591 09 Problem Seasonal 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, unspecified trigger J3 0.2 Active confirmed 544981075 Problem Genital herpes A60.00 Active confirmed 81698 006 Problem Hepatic steatosis K76.0 Active confirmed 19 1806198 Problem Olecranon bursitis of right elbow M70.21 Active confirmed 571083656297011 Problem Other chronic pain G89.29 Active confirmed 8 1514084 Problem NAFL (nonalcoholic fatty liver) K76.0 Active confi rmed 336645703 Problem Pre-diabetes R73.03 Active confirmed 5677213 02 ALLERGIES Allergen (clinical drug ingredient) Drug/Non Drug Allergy do cumented on EMR Reaction Allergy Type Onset Date Status Latex Latex rash Drug Allergy Active vancomycin Vancomycin HCl([facility] Code:[address]-07) hives/layla athing problems Drug Allergy Active Doxycycline Calcium hives/breathing problems Drug Allergy Active Gonadotropins, Equine Horse-derived Products Unknown Drug Allergy Active crab allergenic extract Crab (Diagnostic)([facility] Code:[address]-69 ) Anaphylaxis Drug Allergy Active topiramate Topamax([facility] Code:[address]-40) headache Drug Allergy Active ENCOUNTERS from 1960 to 2021-07-04 Encounter Location Date Provider Diagnosis [facility] Dermatology [address] [facility] [phone] [place] [address] Jun, Nafisa Fajardo Seborrheic dermatitis of sca lp L21.9 ; Perioral dermatitis L71.0 and Pressure urticaria L50.9 IMMUNIZATIONS Vaccine Route Administration Date Status COVID-19 [...] Education Language: Question Answer Notes Languages spoken: Serbian other-Welsh is her first language Lutheran: Question Answer Notes Lutheran 08 Denominational Domestic Violence: Question Answer Notes Status: Single [...] FOR REFERRAL No Information VITAL SIGNS Weight 172.0 lbs Jun, Weight-kg 78.02 kg Jun, Height 60 in Jun, BMI 33.59 kg/m2 Jun, Blood pressure systolic 116 mm Hg Jun, Blood pressure diastolic 72 mm Hg Jun, MEDICATIONS Medication SIG (Take, [...] lesions Three times a day Jun, Not-Taking [place] 3 1000 MG 1 capsule Orally Once [...] Orally Daily for 90 days 2020 Active PROCEDURES No Information RESULTS No Results REASON FOR VISIT 4 weeks rash f/u ([facility] patient) MEDICAL (GENERAL) HISTORY Type Description Date Medical [...] ACDF surgery, [facility] 92/15-06/07/15 Hospitalization History C-Diff 08/14/17-08/18/17 Goals Section No Information Health Concerns No Information MEDICAL EQUIPMENT No Information MENTAL STATUS No Information FUNCTIONAL STATUS No Information ASSESSMENTS Encounter Date Diagnosis Assessment Notes Treatment Notes Treatm ent Clinical Notes Jun, Seborrheic dermatitis of scalp (ICD-10 - L21.9) Improved Jun, Perioral dermatitis (ICD-10 - L71.0) Improved Jun, Pressure urticaria (ICD-10 - L50.9) Add hydroxyzine nightly PLAN OF TREATMENT Medication Medication Name Sig [...] days Treatment Notes Assessment Notes Clinical Notes Seborrheic dermatitis of scalp Improved Perioral dermatitis Improved Pressure urticaria Add hydroxyzine mikayla lee Next Appt Details 8 weeks Reason:rash f/u Provider Name:Rosalba Kelly, 2021-07-06 10 :45:00 AM, [address] [facility], , [place], [address], Provider Name:Johann Alejandro, 2021-07-21 11:45:00 AM, [address], , [place], [address], Provider Name:[facility] Mayberry, 03:45:00 PM, [address] [facility], , [place], [address], Follow Up:8 weeksrash f/u Insurance Providers Payer Name Payer Address Payer Phone Insured Name Patient Relati onship to Insured Coverage Start Date Coverage End Date [facility] [address] [facility] [id number] DELIA BLOUNT self
--- OUTSIDE RECORDS SUMMARY | 2021-07-26 11:34 | CCD ---
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 Name Role Phone WYATT MAYERS MD Unavailable [...] Unavailable WYATT MAYERS MD Unavailable Unavailable WYATT MAYRES MD Unavailable Unavailable WYATT MAYERS MD Unavailable Unavailable CHRWYATT WILLIS MD Unavailable Unavailable CHRWYATT WILLIS MD Unavailable Unavailable CHRWYATT WILLIS MD Unavailable Unavailable CHRWYTAT WILLIS MD Unavailable Unavailable CHRWYATT WILLIS MD [...] GODINEZ MD Unavailable Unavailable GIOVANNA, BREE JESUS HALL WORKER-C Unavailable Unavailable GIOVANNA, BREE JESUS HALL WORKER-C Unavailable Unavailable GIOVANNA, BREE JESUS HALL WORKER-C Unavailable Unavailable GIOVANNA, BREE JESUS HALL WORKER-C Unavailable Unavailable GIOVANNA, BREE JESUS HALL WORKER-C Unavailable Unavailable GIOVANNA, BREE JESUS HALL WORKER-C Unavailable Unavailable GIOVANNA, BREE JESUS HALL WORKER-C Unavailable Unavailable GIOVANNA, BREE JESUS HALL WORKER-C Unavailable Unavailable GIOVANNA, BREE JESUS HALL WORKER-C Unavailable Unavailable GIOVANNA, BREE JESUS HALL WORKER-C Unavailable Unavailable GIOVANNA, BREE JESUS HALL WORKER-C Unavailable Unavailable GIOVANNA, BREE JESUS HALL WORKER-C Unavailable Unavailable GIOVANNA, BREE JESUS HALL WORKER-C Unavailable Unavailable GIOVANNA, BREE JESUS HALL WORKER-C Unavailable Unavailable GIOVANNA, BREE JESUS HALL WORKER-C Unavailable Unavailable GIOVANNA, BREE JESUS HALL WORKER-C Unavailable Unavailable GIOVANNA, BREE JESUS HALL WORKER-C Unavailable Unavailable ANTECOL, Stacie ANDERSON MD Unavailable [...] Stacie ANDERSON MD Unavailable Unavailable ANTECOL, Stacie ANDESRON MD Unavailable Unavailable Annamarie Schafer MD Unavailable Unavailable Annamarie Schafer MD Unavailable Unavailable Annamarie Schafer MD Unavailable Unavailable Annamarie Schafer MD Unavailable Unavailable Annamarie Schafer MD Unavailable Unavailable Annamarie Schafer MD Unavailable Unavailable Annamarie Schafer MD Unavailable Unavailable Annamarie Schafer MD Unavailable Unavailable Annamarie Schafer MD Unavailable Unavailable Annamarie Schafer MD Unavailable Unavailable Annamarie Schafer MD Unavailable Unavailable Annamarie Schafer MD Unavailable Unavailable Annmaarie Schafer MD Unavailable Unavailable Annamarie Schafer MD [...] is protected by Article 27-F of the [facility] Public Health law. If you continue you may have access to information: Regarding HIV / AIDS; Provided by facilities licensed or operated by the [facility] Office of Mental Health; or Provided by the [facility] Office for People With Developmental Disabilities. If such information is present, then the following [facility] mandated warning applies: This information has [...] law may result in a fine or mcfp sentence or both. A general authorization for the release of medical or other information is NOT sufficient authorization for further disc losure. Allergies and Adverse Reactions Type Description Substance Reaction Status Data Source(s ) Drug Adverse Reaction Drug Adverse Reaction Codeine Sulfate [facility] ([facility]) sob, rash Family History Family Member Name Family Member Gender Family Member Status Date o f Status Description Data Source(s) Unknown Unknown Problem MEDENT ([facility]) Unknown Male Problem MEDENT ([facility]) Unknown Unknown Problem MEDENT ([facility]) Encounters Encounter Providers Location Date Indications Data Source(s ) [place] [address] [facility] [address] 07/20/2021 12:00:00 AM EST eCW1 ([facility]) Unknown [address] [facility] [address] 07/12/2021 12:00:00 AM EDT eCW1 ([facility]) [place] [address] [facility] [address] 07/08/2021 12:00:00 AM EDT eCW1 ([facility]) Out[place] [address] [facility] [address] 07/06/2021 12:00:00 AM EDT eCW1 ([facility]) Outpatient Attender: Ellie Schafer MD 1 12:59:32 PM EDT - 06/30/2021 03:05:37 PM EDT [facility] ([facility]) [place] [address] [facility] [address] 06/29/2021 12:00:00 AM EDT eCW1 ([facility]) Outpatient [address] [facility] [address] 06/29/2021 12:00:00 AM EDT eCW1 ([facility]) Outpatient [address] [facility] [address] 06/29/2021 12:00:00 AM EDT eCW1 ([facility]) Unknown [address] [facility] [address] 06/29/2021 12:00:00 AM EDT eCW1 ([facility]) Unknown [address] [facility] [address] 06/20/2021 12:00:00 AM EDT eCW1 ([facility]) Unknown [address] [facility] [address] 06/17/2021 12:00:00 AM EDT eCW1 ([facility]) Outpatient Attender: JESUS Parsons/Robbin/Jose Manuel/Emiliano chang 06/15/2021 08:45:00 AM EDT [facility] ([facility]) Outpatient Attender: WYATT MAYERS MD Main Office 06/13/2021 03:15:00 PM EDT [facility] ([facility]) [place] [address] [facility] [address] 06/08/2021 12:00:00 AM EDT eCW1 ([facility]) Outpatient [address] [facility] [address] 06/01/2021 12:00:00 AM EDT eCW1 ([facility]) Outpatient [address] [facility] [address] 06/01/2021 12:00:00 AM EDT eCW1 ([facility]) Unknown [address] [facility] [address] 06/01/2021 12:00:00 AM EDT eCW1 ([facility]) Unknown [address] [facility] [address] 05/29/2021 12:00:00 AM EDT eCW1 ([facility]) Unknown [address] [facility] [address] 05/26/2021 12:00:00 AM EDT eCW1 ([facility]) Outpatient [address] [facility] [address] 05/26/2021 12:00:00 AM EDT eCW1 ([facility]) Outpatient [address] [facility] [address] 05/17/2021 12:00:00 AM EDT eCW1 ([facility]) Unknown [address] [facility] [address] 04/13/2021 12:00:00 AM EDT eCW1 ([facility]) Unknown [address] [facility] [address] 03/28/2021 12:00:00 AM EDT eCW1 ([facility]) Unknown [address] [facility] [address] 03/24/2021 12:00:00 AM EDT eCW1 ([facility]) Outpatient [address] [facility] [address] 03/23/2021 12:00:00 AM EDT eCW1 ([facility]) Outpatient [address] [facility] [address] 03/22/2021 12:00:00 AM EDT eCW1 ([facility]) Unknown [address] [facility] [address] 03/22/2021 12:00:00 AM EDT eCW1 ([facility]) Unknown [address] [facility] [address] 03/18/2021 12:00:00 AM EDT eCW1 ([facility]) Outpatient [address] [facility] [address] 03/16/2021 12:00:00 AM EDT eCW1 ([facility]) Unknown [address] [facility] [address] 03/16/2021 12:00:00 AM EDT eCW1 ([facility]) Outpatient [address] [facility] [address] 03/10/2021 12:00:00 AM EDT eCW1 ([facility]) ([facility]) W/C Procedure [address] [place] [address] 03/09/2021 12:00:00 AM EDT eCW1 ([facility]) Unknown [address] [facility] [address] 03/03/2021 12:00:00 AM EDT eCW1 ([facility]) Unknown [address] [facility] [address] 03/03/2021 12:00:00 AM EDT eCW1 ([facility]) Unknown [address] [facility] [address] 02/22/2021 12:00:00 AM EDT eCW1 ([facility]) Unknown [address] [facility] [address] 02/21/2021 12:00:00 AM EDT eCW1 ([facility]) Outpatient Attender: BELINDA Parsons/Robbin/Geo abdalla/Reintammy 02/17/2021 11:40:00 AM EDT MEDENT ([facility], ) Outpatient Attender: JESUS Parsons/Robbin/Jose Manuel/Emiliano eindl 02/15/2021 12:45:00 PM EDT MEDENT ([facility], ) Out[place] [address] [facility] [address] 02/15/2021 12:00:00 AM EDT eCW1 ([facility]) Unknown [address] [facility] [address] 02/11/2021 12:00:00 AM EDT eCW1 ([facility]) Outpatient [address] [facility] [address] 02/09/2021 12:00:00 AM EDT eCW1 ([facility]) Unknown [address] [facility] [address] 02/08/2021 12:00:00 AM EDT eCW1 ([facility]) Outpatient [address] [facility] [address] 02/04/2021 12:00:00 AM EDT eCW1 ([facility]) Outpatient Attender: JUSTIN DALTON MD Main Office 02/02/2021 09:00:00 AM EDT MEDENT ([facility]) Unknown [address] [facility] [address] 01/31/2021 12:00:00 AM EDT eCW1 ([facility]) Unknown [address] [facility] [place] [address] 01/20/2021 12:00:00 AM EDT eCW1 ([facility]) Outpatient [address] [facility] [address] 01/18/2021 12:00:00 AM EDT eCW1 ([facility]) Unknown [address] [facility] [address] 01/16/2021 12:00:00 AM EDT eCW1 ([facility]) Unknown [address] [facility] [address] 01/11/2021 12:00:00 AM EDT eCW1 ([facility]) Outpatient [address] [facility] [address] 01/06/2021 12:00:00 AM EDT eCW1 ([facility]) Outpatient [address] [facility] [place] [address] 01/06/2021 12:00:00 AM EDT eCW1 ([facility]) Unknown [address] [facility] [address] 01/06/2021 12:00:00 AM EDT eCW1 ([facility]) Outpatient [address] [facility] [address] 01/05/2021 12:00:00 AM EDT eCW1 ([facility]) Unknown [address] [facility] [address] 01/04/2021 12:00:00 AM EDT eCW1 ([facility]) Unknown [address] [facility] [address] 01/04/2021 12:00:00 AM EDT eCW1 ([facility]) Unknown [address] [facility] [address] 01/04/2021 12:00:00 AM EDT eCW1 ([facility]) Unknown [address] [facility] [address] 01/03/2021 12:00:00 AM EDT eCW1 ([facility]) Outpatient [address] [facility] [address] 12/29/2020 12:00:00 AM EDT eCW1 ([facility]) Unknown [address] [facility] [address] 12/26/2020 12:00:00 AM EDT eCW1 ([facility]) Outpatient Attender: WYATT MAYERS MD Main Office 12/23/2020 03:30:00 PM EDT MED[facility] ([facility]) Unknown [address] [facility] [address] 12/23/2020 12:00:00 AM EDT eCW1 ([facility]) Unknown [address] [facility] [place] [address] 12/22/2020 12:00:00 AM EDT eCW1 ([facility]) Unknown [address] [facility] [address] 12/21/2020 12:00:00 AM EDT eCW1 ([facility]) Outpatient [address] [facility] [address] 12/20/2020 12:00:00 AM EDT eCW1 ([facility]) Unknown [address] [facility] [place] [address] 12/16/2020 12:00:00 AM EDT eCW1 ([facility]) Unknown [address] [facility] [place] [address] 12/14/2020 12:00:00 AM EDT eCW1 ([facility]) Unknown [address] [facility] [place] [address] 12/06/2020 12:00:00 AM EDT eCW1 ([facility]) Outpatient [address] [facility] [place] [address] 12/02/2020 12:00:00 AM EDT eCW1 ([facility]) Unknown [address] [facility] [place] [address] 12/01/2020 12:00:00 AM EDT eCW1 ([facility]) Outpatient [address] [facility] [place] [address] 12/01/2020 12:00:00 AM EDT eCW1 ([facility]) Unknown [address] [facility] [place] [address] 11/26/2020 12:00:00 AM EDT eCW1 ([facility]) Unknown [address] [facility] [place] [address] 11/26/2020 12:00:00 AM EDT eCW1 ([facility]) Outpatient [address] [facility] [place] [address] 11/25/2020 12:00:00 AM EDT eCW1 ([facility]) Unknown [address] [facility] [place] [address] 11/25/2020 12:00:00 AM EDT eCW1 ([facility]) Unknown [address] [facility] [address] 11/24/2020 12:00:00 AM EDT eCW1 ([facility]) Outpatient [address] [facility] [place] [address] 11/03/2020 12:00:00 AM EST eCW1 ([facility]) ([facility]) W/C Procedure [address] [place] [address] 11/03/2020 12:00:00 AM EST eCW1 ([facility]) Unknown [address] [facility] [place] [address] 11/03/2020 12:00:00 AM EST eCW1 ([facility]) Unknown [address] [facility] [place] [address] 11/02/2020 12:00:00 AM EST eCW1 ([facility]) Unknown [address] [facility] [place] [address] 10/29/2020 12:00:00 AM EST eCW1 ([facility]) Unknown [address] [facility] [place] [address] 10/14/2020 12:00:00 AM EST eCW1 ([facility]) Unknown [address] [facility] [place] [address] 09/13/2020 12:00:00 AM EST eCW1 ([facility]) Unknown [address] [facility] [place] [address] 08/31/2020 12:00:00 AM EST eCW1 ([facility]) Outpatient [address] [facility] [place] [address] 08/30/2020 12:00:00 AM EST eCW1 ([facility]) Outpatient [address] [facility] [place] [address] 08/18/2020 12:00:00 AM EST eCW1 ([facility]) Outpatient [address] [facility] [place] [address] 07/29/2020 12:00:00 AM EST eCW1 ([facility]) Unknown [address] [facility] [place] [address] 07/29/2020 12:00:00 AM EST eCW1 ([facility]) Unknown [address] [facility] [place] [address] 07/29/2020 12:00:00 AM EST eCW1 ([facility]) Unknown [address] [facility] [place] [address] 07/29/2020 12:00:00 AM EST eCW1 ([facility]) Unknown [address] [facility] [place] [address] 07/13/2020 12:00:00 AM EST eCW1 ([facility]) [place] [address] [facility] [place] [address] 07/13/2020 12:00:00 AM EST eCW1 ([facility]) [place] [address] [facility] [place] [address] 07/09/2020 12:00:00 AM EDT eCW1 ([facility]) Outpatient Attender: WYATT MAYERS MD Main Office 06/24/2020 02:30:00 PM EDT MEDENT ([facility]) Outpatient [address] [facility] [place] [address] 06/23/2020 12:00:00 AM EDT eCW1 ([facility]) Unknown [address] [facility] [place] [address] 06/22/2020 12:00:00 AM EDT eCW1 ([facility]) Unknown [address] [facility] [place] [address] 06/18/2020 12:00:00 AM EDT eCW1 ([facility]) Outpatient [address] [facility] [place] [address] 06/18/2020 12:00:00 AM EDT eCW1 ([facility]) Unknown [address] [facility] [place] [address] 06/14/2020 12:00:00 AM EDT eCW1 ([facility]) Immunizations Vaccine Date Status Description Data Source(s) Moderna #3 dose COVID-19 (given elsewhere) SARSCOV2 VA C 100MCG/0.5ML IM 07/06/2021 11:08:00 AM EDT completed eCW1 ([facility]) Moderna #3 dose COVID-19 (given elsewhere) SARSCOV2 VA C 100MCG/0.5ML IM 07/06/2021 11:08:00 AM EDT completed eCW1 ([facility]) Moderna #3 dose COVID-19 (given elsewhere) SARSCOV2 VA C 100MCG/0.5ML IM 07/06/2021 11:08:00 AM EDT completed eCW1 ([facility]) Moderna #3 dose COVID-19 (given elsewhere) SARSCOV2 VA C 100MCG/0.5ML IM 07/06/2021 11:08:00 AM EDT completed eCW1 ([facility]) COVID-19 VACCINE Moderna 07/06/2021 12:00:00 AM EDT completed [employer] Vaccine Series Complete: YESThis Data wa s Submitted to [facility] Via [employer]. COVID-19 VACCINE Moderna 12/22/2020 12:00:00 AM EDT completed [facility] Vaccine Series Complete: YESThis Data wa s Submitted to [facility] Via [employer]. COVID-19 VACCINE, [id number], LNP-S (MODERNA)/PF 12/22/2020 1 2:00:00 AM EDT completed [facility] COVID-19 dose #1 given elsewhere Unspecified 11/19/2020 01:3 4:00 PM EST completed eCW1 ([facility]) COVID-19 dose #1 given elsewhere Unspecified 11/19/2020 01:3 4:00 PM EST completed eCW1 ([facility]) COVID-19 dose #1 given elsewhere Unspecified 11/19/2020 01:3 4:00 PM EST completed eCW1 ([facility]) COVID-19 dose #1 given elsewhere Unspecified 11/19/2020 01:3 4:00 PM EST completed eCW1 ([facility]) COVID-19 dose #1 given elsewhere Unspecified 11/19/2020 01:3 4:00 PM EST completed eCW1 ([facility]) COVID-19 dose #1 given elsewhere Unspecified 11/19/2020 01:3 4:00 PM EST completed eCW1 ([facility]) COVID-19 dose #1 given elsewhere Unspecified 11/19/2020 01:3 4:00 PM EST completed eCW1 ([facility]) COVID-19 dose #1 given elsewhere Unspecified 11/19/2020 01:3 4:00 PM EST completed eCW1 ([facility]) COVID-19 dose #1 given elsewhere Unspecified 11/19/2020 01:3 4:00 PM EST completed eCW1 ([facility]) COVID-19 dose #1 given elsewhere Unspecified 11/19/2020 01:3 4:00 PM EST completed eCW1 ([facility]) COVID-19 dose #1 given elsewhere Unspecified 11/19/2020 01:3 4:00 PM EST completed eCW1 ([facility]) COVID-19 dose #1 given elsewhere Unspecified 11/19/2020 01:3 4:00 PM EST completed eCW1 ([facility]) COVID-19 dose #1 given elsewhere Unspecified 11/19/2020 01:3 4:00 PM EST completed eCW1 ([facility]) COVID-19 dose #1 given elsewhere Unspecified 11/19/2020 01:3 4:00 PM EST completed eCW1 ([facility]) COVID-19 dose #1 given elsewhere Unspecified 11/19/2020 01:3 4:00 PM EST completed eCW1 ([facility]) COVID-19 dose #1 given elsewhere Unspecified 11/19/2020 01:3 4:00 PM EST completed eCW1 ([facility]) COVID-19 dose #1 given elsewhere Unspecified 11/19/2020 01:3 4:00 PM EST completed eCW1 ([facility]) COVID-19 dose #1 given elsewhere Unspecified 11/19/2020 01:3 4:00 PM EST completed eCW1 ([facility]) COVID-19 dose #1 given elsewhere Unspecified 11/19/2020 01:3 4:00 PM EST completed eCW1 ([facility]) COVID-19 dose #1 given elsewhere Unspecified 11/19/2020 01:3 4:00 PM EST completed eCW1 ([facility]) COVID-19 dose #1 given elsewhere Unspecified 11/19/2020 01:3 4:00 PM EST completed eCW1 ([facility]) COVID-19 dose #1 given elsewhere Unspecified 11/19/2020 01:3 4:00 PM EST completed eCW1 ([facility]) COVID-19 dose #1 given elsewhere Unspecified 11/19/2020 01:3 4:00 PM EST completed eCW1 ([facility]) COVID-19 dose #1 given elsewhere Unspecified 11/19/2020 01:3 4:00 PM EST completed eCW1 ([facility]) COVID-19 dose #1 given elsewhere Unspecified 11/19/2020 01:3 4:00 PM EST completed eCW1 ([facility]) COVID-19 dose #1 given elsewhere Unspecified 11/19/2020 01:3 4:00 PM EST completed eCW1 ([facility]) COVID-19 dose #1 given elsewhere Unspecified 11/19/2020 01:3 4:00 PM EST completed eCW1 ([facility]) COVID-19 dose #1 given elsewhere Unspecified 11/19/2020 01:3 4:00 PM EST completed eCW1 ([facility]) COVID-19 dose #1 given elsewhere Unspecified 11/19/2020 01:3 4:00 PM EST completed eCW1 ([facility]) COVID-19 dose #1 given elsewhere Unspecified 11/19/2020 01:3 4:00 PM EST completed eCW1 ([facility]) COVID-19 dose #1 given elsewhere Unspecified 11/19/2020 01:3 4:00 PM EST completed eCW1 ([facility]) COVID-19 dose #1 given elsewhere Unspecified 11/19/2020 01:3 4:00 PM EST completed eCW1 ([facility]) COVID-19 dose #1 given elsewhere Unspecified 11/19/2020 01:3 4:00 PM EST completed eCW1 ([facility]) COVID-19 dose #1 given elsewhere Unspecified 11/19/2020 01:3 4:00 PM EST completed eCW1 ([facility]) COVID-19 dose #1 given elsewhere Unspecified 11/19/2020 01:3 4:00 PM EST completed eCW1 ([facility]) COVID-19 dose #1 given elsewhere Unspecified 11/19/2020 01:3 4:00 PM EST completed eCW1 ([facility]) COVID-19 dose #1 given elsewhere Unspecified 11/19/2020 01:3 4:00 PM EST completed eCW1 ([facility]) COVID-19 dose #1 given elsewhere Unspecified 11/19/2020 01:3 4:00 PM EST completed eCW1 ([facility]) COVID-19 dose #1 given elsewhere Unspecified 11/19/2020 01:3 4:00 PM EST completed eCW1 ([facility]) COVID-19 dose #1 given elsewhere Unspecified 11/19/2020 01:3 4:00 PM EST completed eCW1 ([facility]) COVID-19 dose #1 given elsewhere Unspecified 11/19/2020 01:3 4:00 PM EST completed eCW1 ([facility]) COVID-19 dose #1 given elsewhere Unspecified 11/19/2020 01:3 4:00 PM EST completed eCW1 ([facility]) COVID-19 dose #1 given elsewhere Unspecified 11/19/2020 01:3 4:00 PM EST completed eCW1 ([facility]) COVID-19 dose #1 given elsewhere Unspecified 11/19/2020 01:3 4:00 PM EST completed eCW1 ([facility]) COVID-19 dose #1 given elsewhere Unspecified 11/19/2020 01:3 4:00 PM EST completed eCW1 ([facility]) COVID-19 dose #1 given elsewhere Unspecified 11/19/2020 01:3 4:00 PM EST completed eCW1 ([facility]) COVID-19 dose #1 given elsewhere Unspecified 11/19/2020 01:3 4:00 PM EST completed eCW1 ([facility]) COVID-19 dose #1 given elsewhere Unspecified 11/19/2020 01:3 4:00 PM EST completed eCW1 ([facility]) COVID-19 dose #1 given elsewhere Unspecified 11/19/2020 01:3 4:00 PM EST completed eCW1 ([facility]) COVID-19 dose #1 given elsewhere Unspecified 11/19/2020 01:3 4:00 PM EST completed eCW1 ([facility]) COVID-19 dose #1 given elsewhere Unspecified 11/19/2020 01:3 4:00 PM EST completed eCW1 ([facility]) COVID-19 dose #1 given elsewhere Unspecified 11/19/2020 01:3 4:00 PM EST completed eCW1 ([facility]) COVID-19 dose #1 given elsewhere Unspecified 11/19/2020 01:3 4:00 PM EST completed eCW1 ([facility] [facility] COVID-19 dose #1 given elsewhere Unspecified 11/19/2020 01:3 4:00 PM EST completed eCW1 ([facility]) COVID-19 dose #1 given elsewhere Unspecified 11/19/2020 01:3 4:00 PM EST completed eCW1 ([facility]) COVID-19 dose #1 given elsewhere Unspecified 11/19/2020 01:3 4:00 PM EST completed eCW1 ([facility]) COVID-19 dose #1 given elsewhere Unspecified 11/19/2020 01:3 4:00 PM EST completed eCW1 ([facility]) COVID-19 dose #1 given elsewhere Unspecified 11/19/2020 01:3 4:00 PM EST completed eCW1 ([facility]) COVID-19 dose #1 given elsewhere Unspecified 11/19/2020 01:3 4:00 PM EST completed eCW1 ([facility]) COVID-19 dose #1 given elsewhere Unspecified 11/19/2020 01:3 4:00 PM EST completed eCW1 ([facility]) COVID-19 dose #1 given elsewhere Unspecified 11/19/2020 01:3 4:00 PM EST completed eCW1 ([facility]) COVID-19 dose #1 given elsewhere Unspecified 11/19/2020 01:3 4:00 PM EST completed eCW1 ([facility]) COVID-19 dose #1 given elsewhere Unspecified 11/19/2020 01:3 4:00 PM EST completed eCW1 ([facility]) COVID-19 dose #1 given elsewhere Unspecified 11/19/2020 01:3 4:00 PM EST completed eCW1 ([facility]) COVID-19 dose #1 given elsewhere Unspecified 11/19/2020 01:3 4:00 PM EST completed eCW1 ([facility]) COVID-19 dose #1 given elsewhere Unspecified 11/19/2020 01:3 4:00 PM EST completed eCW1 ([facility]) COVID-19 dose #1 given elsewhere Unspecified 11/19/2020 01:3 4:00 PM EST completed eCW1 ([facility]) COVID-19 dose #1 given elsewhere Unspecified 11/19/2020 01:3 4:00 PM EST completed eCW1 ([facility]) COVID-19 dose #1 given elsewhere Unspecified 11/19/2020 01:3 4:00 PM EST completed eCW1 ([facility]) COVID-19 VACCINE Moderna 11/19/2020 12:00:00 AM EST completed [facility] Vaccine Series Complete: NOThis Data was Submitted to [facility] Via [facility]. COVID-19 VACCINE, [id number], LNP-S (MODERNA)/PF 11/19/2020 1 2:00:[address] [facility] INFLUENZA VIRUS VACCINE QUADRIVAL (6 MOS AND UP)/PF 10/14/2020 12:00:[address] [facility] Medications Medication Brand Name Start Date Product Form Dose Route Admi nistrative Instructions Pharmacy Instructions Status Indications Reaction Description Data Source(s) 20 mg 07/22/2021 12:00:00 AM EST capsule,delayed release (DR/EC) 30 TAKE ONE CAPSULE BY MOUTH EVERY DAY TAKE ONE CAPSULE BY MOUTH EVERY DAY SOLD: 07/24/2021 [facility] Cyclobenzaprine hydrochloride 10 MG Oral Tablet CYCLOBENZAPR INE HCL 07/22/2021 12:00:00 AM EST tablet 45 TAKE ONE TABLET BY MOUTH TWICE A DAY NEEDED FOR SPASMS AND PAIN TAKE ONE TABLET BY MOUTH TWICE A DAY NEEDED FOR SPASMS AND PAIN SOLD: 07/24/2021 [facility] pregabalin 150 MG Oral Capsule [Lyrica] Lyrica 150 MG Lyrica 150 MG 07/21/2021 12:00:00 AM EST 1.0 {capsule} active L yrica 150 MG eCW1 ([facility]) 5 mg 07/21/2021 12:00:00 AM EST tablet 8 TAKE ONE TABLET BY MOUTH NEEDED FOR MIGRAINE HEADACHE MAY REPEAT IN 3 HOURS IF NEEDED MAXIMUM DAILY DOSE = 2 TAKE ONE TABLET BY MOUTH NEEDED FOR MIGRAINE HEADACHE MAY REPEAT IN 3 HOURS IF NEEDED MAXIMUM DAILY DOSE = 2 SOLD: 07/24/2021 [facility] tramadol hydrochloride 50 MG Oral Tablet traMADol HCl 50 MG traMADol HCl 50 MG 07/21/2021 12:00:00 AM EST active traMADol HCl 50 MG eCW1 ([facility]) pregabalin 150 MG Oral Capsule [Lyrica] Lyrica 150 MG Lyrica 150 MG 07/21/2021 12:00:00 AM EST 1.0 {capsule} active eCW1 ([facility]) tramadol hydrochloride 50 MG Oral Tablet traMADol HCl 50 MG traMADol HCl 50 MG 07/21/2021 12:00:00 AM EST active eCW1 ([facility]) 80 mg 07/15/2021 12:00:00 AM EDT tablet,chewable 120 CHEW ONE TABLET BY MOUTH AFTER MEALS AND AT BEDTIME FOUR TIMES A DAY NEEDED FOR BLOATING CHEW ONE TABLET BY MOUTH AFTER MEALS AND AT BEDTIME FOUR TIMES A DAY NEEDED FOR BLOATING SOLD: 07/15/2021 [facility] Simethicone 80 MG Chewable Tablet Simethicone 80 MG 07/14/2021 1 2:00:00 AM EDT 1.0 {tablet_after_meals_and_at_bedtime_as_needed} active eCW1 ([facility]) Simethicone 80 MG Chewable Tablet Simethicone 80 MG 07/14/2021 1 2:00:00 AM EDT 1.0 {tablet_after_meals_and_at_bedtime_as_needed} active Simethicone 80 MG eCW1 ([facility]) pantoprazole 40 MG Delayed Release Oral Tablet PANTOPRAZOLE SODIUM 07/14/2021 12:00:00 AM EDT tablet,delayed release (DR/EC) 180 T ROGELIO ONE TABLET BY MOUTH TWICE A DAY TAKE ONE TABLET BY MOUTH TWICE A DAY SOLD: 07/15/2021 [facility] 81 mg 07/14/2021 12:00:00 AM EDT tablet,delayed release (DR/EC) 30 TAKE ONE TABLET BY MOUTH EVERY DAY TAKE ONE TABLET BY MOUTH EVERY DAY SOLD: 07/15/2021 [facility] Diclofenac Sodium 0.01 MG/MG Topical Gel [Voltaren] Voltaren 1 % Voltaren 1 % 07/12/2021 12:00:00 AM EDT active eCW1 ([facility]) Diclofenac Sodium 0.01 MG/MG Topical Gel [Voltaren] Voltaren 1 % Voltaren 1 % 07/12/2021 12:00:00 AM EDT active Voltaren 1 % eCW1 ([facility]) 5 mg 07/05/2021 12:00:00 AM EDT tablet 7 TAKE ONE TABLET BY MOUTH NEEDED FOR MIGRAINE MAY REPEAT IN 3 HOURS IF NEEDED MAXIMUM DAILY DOSE = 2 TAKE ONE TABLET BY MOUTH NEEDED FOR MIGRAINE MAY REPEAT IN 3 HOURS IF NEEDED MAXIMUM DAILY DOSE = 2 SOLD: 07/06/2021 [facility] 90 mcg/actuation 07/05/2021 12:00:00 AM EDT HFA aerosol inha ler 18 USE 2 PUFFS BY MOUTH EVERY 4 TO 6 HOURS NEEDED AND 15 MINUTES PRIOR TO EXERCISE USE 2 PUFFS BY MOUTH EVERY 4 TO 6 HOURS NEEDED AND 15 MINUTES PRIOR TO EXERCISE SOLD: 07/06/2021 [facility] Cyclobenzaprine hydrochloride 10 MG Oral Tablet CYCLOBENZAPR INE HCL 07/04/2021 12:00:00 AM EDT tablet 60 TAKE ONE TABLET BY MOUTH TWICE A DAY NEEDED FOR SPASMS AND PAIN TAKE ONE TABLET BY MOUTH TWICE A DAY NEEDED FOR SPASMS AND PAIN SOLD: 07/06/2021 [facility] 20 mg 07/04/2021 12:00:00 AM EDT tablet 18 TAKE 3 TABLETS BY MOUTH DAILY DAYS 1-3 THEN 2 TABLETS DAYS 4-6 THEN ONE TABLET DAYS 7-9 TAKE 3 TABLETS BY MOUTH DAILY DAYS 1-3 THEN 2 TABLETS DAYS 4-6 THEN ONE TABLET DAYS 7-9 SOLD: 07/06/2021 [facility] 20 mg 07/04/2021 12:00:00 AM EDT capsule,delayed release (DR/EC) 30 TAKE ONE CAPSULE BY MOUTH EVERY DAY FOR PAIN TAKE ONE CAPSULE BY MOUTH EVERY DAY FOR PAIN SOLD: 07/06/2021 [facility] 50 mg 07/04/2021 12:00:00 AM EDT tablet 90 TAKE ONE TABLET BY MOUTH EVERY 6 HOURS NEEDED FOR PAIN MAXIMUM DAILY DOSE = 3 TAKE ONE TABLET BY MOUTH EVERY 6 HOURS NEEDED FOR PAIN MAXIMUM DAILY DOSE = 3 SOLD: 07/06/2021 [facility] 150 mg 07/04/2021 12:00:00 AM EDT capsule 90 TAKE ONE CAPSULE BY MOUTH THREE TIMES A DAY NEEDED FOR PAIN MAXIMUM DAILY DOSE = 3 TAKE ONE CAPSULE BY MOUTH THREE TIMES A DAY NEEDED FOR PAIN MAXIMUM DAILY DOSE = 3 SOLD: 07/06/2021 [facility] 100 mcg/0.5 mL 07/01/2021 12:00:00 AM EDT suspension 0 INJECT DIRECTED (THIRD DOSE) INJECT DIRECTED (THIRD DOSE) SOLD: 07/01/2021 [facility] 850 mg 07/01/2021 12:00:00 AM EDT tablet 90 TAKE 1 TABLET BY MOUTH ONCE A DAY WITH A MEAL TAKE 1 TABLET BY MOUTH ONCE A DAY WITH A MEAL SOLD: 07/01/20 [facility] tramadol hydrochloride 50 MG Oral Tablet traMADol HCl 50 MG traMADol HCl 50 MG 06/30/2021 12:00:00 AM EDT active traMADol HCl 50 MG eCW1 ([facility]) pregabalin 150 MG Oral Capsule [Lyrica] Lyrica 150 MG Lyrica 150 MG 06/30/2021 12:00:00 AM EDT 1.0 {capsule} active L yrica 150 MG eCW1 ([facility]) Atropine Sulfate 0.025 MG / Diphenoxylat e Hydrochloride 2.5 MG Oral Tablet 2.5- 0.025 mg DIPHENOXYLATE HCL/ATROPINE 06/30/2021 12:00:00 AM EDT tablet 60 TAKE 1 TABLET BY MOUTH UP TO TWO TIMES A DAY FOR DIARRHEA MAXIMUM DAILY DOSE = 2 TAKE 1 TABLET BY MOUTH UP TO TWO TIMES A DAY FOR DIARRHEA MAXIMUM DAILY DOSE = 2 SOLD: 07/01/2021 [facility] atorvastatin 80 MG Oral Tablet Atorvastatin Calcium 80 MG Atorvastatin Calcium 80 MG 06/30/2021 12:00:00 AM EDT 1.0 {tablet} suspended eCW1 ([facility]) Metformin hydrochloride 850 MG Oral Tablet metFORMIN H Cl 850 MG metFORMIN HCl 850 MG 06/30/2021 12:00:00 AM EDT 1.0 {tablet_with_a_meal} active eCW1 ([facility]) Metformin hydrochloride 850 MG Oral Tablet metFORMIN H Cl 850 MG metFORMIN HCl 850 MG 06/30/2021 12:00:00 AM EDT 1.0 {tablet_with_a_meal} active metFORMIN HCl 850 MG eCW1 ([facility]) 80 mg 06/30/2021 12:00:00 AM EDT tablet 90 TAKE ONE TABLET BY MOUTH EVERY DAY TAKE ONE TABLET BY MOUTH EVERY DAY SOLD: 07/01/2021 [facility] tramadol hydrochloride 50 MG Oral Tablet traMADol HCl 50 MG traMADol HCl 50 MG 06/30/2021 12:00:00 AM EDT active traMADol HCl 50 MG eCW1 ([facility]) tramadol hydrochloride 50 MG Oral Tablet traMADol HCl 50 MG traMADol HCl 50 MG 06/30/2021 12:00:00 AM EDT active traMADol HCl 50 MG eCW1 ([facility]) atorvastatin 80 MG Oral Tablet Atorvastatin Calcium 80 MG Atorvastatin Calcium 80 MG 06/30/2021 12:00:00 AM EDT 1.0 {tablet} activ e Atorvastatin Calcium 80 MG eCW1 ([facility]) Metformin hydrochloride 850 MG Oral Tablet metFORMIN H Cl 850 MG metFORMIN HCl 850 MG 06/30/2021 12:00:00 AM EDT 1.0 {tablet_with_a_meal} active metFORMIN HCl 850 MG eCW1 ([facility]) Metformin hydrochloride 850 MG Oral Tablet metFORMIN H Cl 850 MG metFORMIN HCl 850 MG 06/30/2021 12:00:00 AM EDT 1.0 {tablet_with_a_meal} active metFORMIN HCl 850 MG eCW1 ([facility]) atorvastatin 80 MG Oral Tablet Atorvastatin Calcium 80 MG Atorvastatin Calcium 80 MG 06/30/2021 12:00:00 AM EDT 1.0 {tablet} activ e Atorvastatin Calcium 80 MG eCW1 ([facility]) 500 mg 06/30/2021 12:00:00 AM EDT tablet 60 TAKE 1 TO 2 TABLETS BY MOUTH FOUR TIMES A DAY NEEDED FOR 10 DAYS TAKE 1 TO 2 TABLETS BY MOUTH FOUR TIMES A DAY NEEDED FOR 10 DAYS SOLD: 07/01/2021 [facility] tramadol hydrochloride 50 MG Oral Tablet traMADol HCl 50 MG traMADol HCl 50 MG 06/30/2021 12:00:00 AM EDT active traMADol HCl 50 MG eCW1 ([facility]) 25 mg 06/30/2021 12:00:00 AM EDT capsule 30 TAKE ONE CAPSULE BY MOUTH AT BEDTIME NEEDED TAKE ONE CAPSULE BY MOUTH AT BEDTIME NEEDED SOLD: 07/01/2021 [facility] atorvastatin 80 MG Oral Tablet Atorvastatin Calcium 80 MG Atorvastatin Calcium 80 MG 06/30/2021 12:00:00 AM EDT 1.0 {tablet} activ e Atorvastatin Calcium 80 MG eCW1 ([facility]) pregabalin 150 MG Oral Capsule [Lyrica] Lyrica 150 MG Lyrica 150 MG 06/30/2021 12:00:00 AM EDT 1.0 {capsule} active L yrica 150 MG eCW1 ([facility]) tramadol hydrochloride 50 MG Oral Tablet traMADol HCl 50 MG traMADol HCl 50 MG 06/30/2021 12:00:00 AM EDT active traMADol HCl 50 MG eCW1 ([facility]) pregabalin 150 MG Oral Capsule [Lyrica] Lyrica 150 MG Lyrica 150 MG 06/30/2021 12:00:00 AM EDT 1.0 {capsule} active L yrica 150 MG eCW1 ([facility]) pregabalin 150 MG Oral Capsule [Lyrica] Lyrica 150 MG Lyrica 150 MG 06/30/2021 12:00:00 AM EDT 1.0 {capsule} active L yrica 150 MG eCW1 ([facility]) atorvastatin 80 MG Oral Tablet Atorvastatin Calcium 80 MG Atorvastatin Calcium 80 MG 06/30/2021 12:00:00 AM EDT 1.0 {tablet} activ e Atorvastatin Calcium 80 MG eCW1 ([facility]) pregabalin 150 MG Oral Capsule [Lyrica] Lyrica 150 MG Lyrica 150 MG 06/30/2021 12:00:00 AM EDT 1.0 {capsule} active L yrica 150 MG eCW1 ([facility]) atorvastatin 80 MG Oral Tablet Atorvastatin Calcium 80 MG Atorvastatin Calcium 80 MG 06/30/2021 12:00:00 AM EDT 1.0 {tablet} activ e Atorvastatin Calcium 80 MG eCW1 ([facility]) atorvastatin 80 MG Oral Tablet Atorvastatin Calcium 80 MG Atorvastatin Calcium 80 MG 06/30/2021 12:00:00 AM EDT 1.0 {tablet} activ e Atorvastatin Calcium 80 MG eCW1 ([facility]) 20 mg 06/30/2021 12:00:00 AM EDT tablet 10 TAKE ONE TABLET BY MOUTH TWICE A DAY FOR 5 DAYS TAKE ONE TABLET BY MOUTH TWICE A DAY FOR 5 DAYS SOLD: 2020 [facility] Metformin hydrochloride 850 MG Oral Tablet metFORMIN H Cl 850 MG metFORMIN HCl 850 MG 06/30/2021 12:00:00 AM EDT 1.0 {tablet_with_a_meal} active metFORMIN HCl 850 MG eCW1 ([facility]) pregabalin 150 MG Oral Capsule [Lyrica] Lyrica 150 MG Lyrica 150 MG 06/30/2021 12:00:00 AM EDT 1.0 {capsule} active L yrica 150 MG eCW1 ([facility]) pregabalin 150 MG Oral Capsule [Lyrica] Lyrica 150 MG Lyrica 150 MG 06/30/2021 12:00:00 AM EDT 1.0 {capsule} active L yrica 150 MG eCW1 ([facility]) Metformin hydrochloride 850 MG Oral Tablet metFORMIN H Cl 850 MG metFORMIN HCl 850 MG 06/30/2021 12:00:00 AM EDT 1.0 {tablet_with_a_meal} active metFORMIN HCl 850 MG eCW1 ([facility]) Metformin hydrochloride 850 MG Oral Tablet metFORMIN H Cl 850 MG metFORMIN HCl 850 MG 06/30/2021 12:00:00 AM EDT 1.0 {tablet_with_a_meal} active metFORMIN HCl 850 MG eCW1 ([facility]) atorvastatin 80 MG Oral Tablet Atorvastatin Calcium 80 MG Atorvastatin Calcium 80 MG 06/30/2021 12:00:00 AM EDT 1.0 {tablet} suspe nded Atorvastatin Calcium 80 MG eCW1 ([facility]) atorvastatin 80 MG Oral Tablet Atorvastatin Calcium 80 MG Atorvastatin Calcium 80 MG 06/30/2021 12:00:00 AM EDT 1.0 {tablet} activ e Atorvastatin Calcium 80 MG eCW1 ([facility]) tramadol hydrochloride 50 MG Oral Tablet traMADol HCl 50 MG traMADol HCl 50 MG 06/30/2021 12:00:00 AM EDT active traMADol HCl 50 MG eCW1 ([facility]) Metformin hydrochloride 850 MG Oral Tablet metFORMIN H Cl 850 MG metFORMIN HCl 850 MG 06/30/2021 12:00:00 AM EDT 1.0 {tablet_with_a_meal} active metFORMIN HCl 850 MG eCW1 ([facility]) Metformin hydrochloride 850 MG Oral Tablet metFORMIN H Cl 850 MG metFORMIN HCl 850 MG 06/30/2021 12:00:00 AM EDT 1.0 {tablet_with_a_meal} active metFORMIN HCl 850 MG eCW1 ([facility]) tramadol hydrochloride 50 MG Oral Tablet traMADol HCl 50 MG traMADol HCl 50 MG 06/30/2021 12:00:00 AM EDT active traMADol HCl 50 MG eCW1 ([facility]) Hydroxyzine Pamoate 25 MG Oral Capsule hydrOXYzine Becky oate 25 MG hydrOXYzine Pamoate 25 MG 06/29/2021 12:00:00 AM EDT 1.0 {capsule_as_needed} active hydrOXYzine Pamoate 25 MG eCW1 ([facility]) Hydroxyzine Pamoate 25 MG Oral Capsule hydrOXYzine Becky oate 25 MG hydrOXYzine Pamoate 25 MG 06/29/2021 12:00:00 AM EDT 1.0 {capsule_as_needed} active hydrOXYzine Pamoate 25 MG eCW1 ([facility]) Hydroxyzine Pamoate 25 MG Oral Capsule hydrOXYzine Becky oate 25 MG hydrOXYzine Pamoate 25 MG 06/29/2021 12:00:00 AM EDT 1.0 {capsule_as_needed} active hydrOXYzine Pamoate 25 MG eCW1 ([facility]) Hydroxyzine Pamoate 25 MG Oral Capsule hydrOXYzine Becky oate 25 MG hydrOXYzine Pamoate 25 MG 06/29/2021 12:00:00 AM EDT 1.0 {capsule_as_needed} active hydrOXYzine Pamoate 25 MG eCW1 ([facility]) Hydroxyzine Pamoate 25 MG Oral Capsule hydrOXYzine Becky oate 25 MG hydrOXYzine Pamoate 25 MG 06/29/2021 12:00:00 AM EDT 1.0 {capsule_as_needed} active hydrOXYzine Pamoate 25 MG eCW1 ([facility]) Hydroxyzine Pamoate 25 MG Oral Capsule hydrOXYzine Becky oate 25 MG hydrOXYzine Pamoate 25 MG 06/29/2021 12:00:00 AM EDT 1.0 {capsule_as_needed} active hydrOXYzine Pamoate 25 MG eCW1 ([facility]) Hydroxyzine Pamoate 25 MG Oral Capsule hydrOXYzine Becky oate 25 MG hydrOXYzine Pamoate 25 MG 06/29/2021 12:00:00 AM EDT 1.0 {capsule_as_needed} active eCW1 ([facility]) Hydroxyzine Pamoate 25 MG Oral Capsule hydrOXYzine Becky oate 25 MG hydrOXYzine Pamoate 25 MG 06/29/2021 12:00:00 AM EDT 1.0 {capsule_as_needed} active hydrOXYzine Pamoate 25 MG eCW1 ([facility]) Hydroxyzine Pamoate 25 MG Oral Capsule hydrOXYzine Becky oate 25 MG hydrOXYzine Pamoate 25 MG 06/29/2021 12:00:00 AM EDT 1.0 {capsule_as_needed} active hydrOXYzine Pamoate 25 MG eCW1 ([facility]) 1 mg 06/25/2021 12:00:00 AM EDT tablet 90 TAKE ONE TABLET BY MOUTH EVERY DAY TAKE ONE TABLET BY MOUTH EVERY DAY SOLD: 06/26/2021 [facility] 0.01 % (0.1 mg/gram) 06/25/2021 12:00:00 AM EDT cream 42 APPLY 1/2 GRAM VAGINALLY TWO TIMES A WEEK APPLY 1/2 GRAM VAGINALLY TWO TIMES A WEEK SOLD: 06/26/2021 [facility] valacyclovir 1000 MG Oral Tablet [Valtrex] Valtrex 1 GM Valt marii 1 GM 06/24/2021 12:00:00 AM EDT 1.0 {tablet} active Va ltrex 1 GM eCW1 ([facility]) valacyclovir 1000 MG Oral Tablet [Valtrex] Valtrex 1 GM Valt marii 1 GM 06/24/2021 12:00:00 AM EDT 1.0 {tablet} active Va ltrex 1 GM eCW1 ([facility]) valacyclovir 1000 MG Oral Tablet [Valtrex] Valtrex 1 GM Valt marii 1 GM 06/24/2021 12:00:00 AM EDT 1.0 {tablet} active Va ltrex 1 GM eCW1 ([facility]) Lidocaine 40 MG/ML Topical Cream Lidocaine 4 % Lidocaine 4 % 06/24/2021 12:00:00 AM EDT suspended Lidocaine 4 % eCW1 ([facility]) valacyclovir 1000 MG Oral Tablet VALACYCLOVIR HCL 06/24/2021 12: 00:00 AM EDT tablet 45 TAKE ONE TABLET BY M OUTH ONCE DAILY. IF OUTBREAK OCCURS TAKE ONE TABLET BY MOUTH TWO TIMES A DAY FOR 5 DAYS THEN CONTINUE ONCE DAILY TAKE ONE TABLET BY MOUTH ONCE DAILY. IF OUTBREAK OCCURS TAKE ONE TABLET BY MOUTH TWO TIMES A DAY FOR 5 DAYS THEN CONTINUE ONCE DAILY SOLD: 06/26/2021 [facility] valacyclovir 1000 MG Oral Tablet [Valtrex] Valtrex 1 GM Valt marii 1 GM 06/24/2021 12:00:00 AM EDT 1.0 {tablet} active Va ltrex 1 GM eCW1 ([facility]) Lidocaine 40 MG/ML Topical Cream Lidocaine 4 % Lidocaine 4 % 06/24/2021 12:00:00 AM EDT suspended eCW1 ( [facility]) valacyclovir 1000 MG Oral Tablet [Valtrex] Valtrex 1 GM Valt marii 1 GM 06/24/2021 12:00:00 AM EDT 1.0 {tablet} active Va ltrex 1 GM eCW1 ([facility]) Lidocaine 40 MG/ML Topical Cream Lidocaine 4 % Lidocaine 4 % 06/24/2021 12:00:00 AM EDT suspended Lidocaine 4 % eCW1 ([facility]) Lidocaine 40 MG/ML Topical Cream Lidocaine 4 % Lidocaine 4 % 06/24/2021 12:00:00 AM EDT suspended Lidocaine 4 % eCW1 ([facility]) Lidocaine 40 MG/ML Topical Cream Lidocaine 4 % Lidocaine 4 % 06/24/2021 12:00:00 AM EDT suspended Lidocaine 4 % eCW1 ([facility]) valacyclovir 1000 MG Oral Tablet [Valtrex] Valtrex 1 GM Valt marii 1 GM 06/24/2021 12:00:00 AM EDT 1.0 {tablet} active Va ltrex 1 GM eCW1 ([facility]) Lidocaine 40 MG/ML Topical Cream Lidocaine 4 % Lidocaine 4 % 06/24/2021 12:00:00 AM EDT suspended Lidocaine 4 % eCW1 ([facility]) Lidocaine 40 MG/ML Topical Cream Lidocaine 4 % Lidocaine 4 % 06/24/2021 12:00:00 AM EDT suspended Lidocaine 4 % eCW1 ([facility]) valacyclovir 1000 MG Oral Tablet [Valtrex] Valtrex 1 GM Valt marii 1 GM 06/24/2021 12:00:00 AM EDT 1.0 {tablet} active Va ltrex 1 GM eCW1 ([facility]) Lidocaine 40 MG/ML Topical Cream Lidocaine 4 % Lidocaine 4 % 06/24/2021 12:00:00 AM EDT suspended Lidocaine 4 % eCW1 ([facility]) valacyclovir 1000 MG Oral Tablet [Valtrex] Valtrex 1 GM Valt marii 1 GM 06/24/2021 12:00:00 AM EDT 1.0 {tablet} active eCW1 ([facility]) Lidocaine 40 MG/ML Topical Cream Lidocaine 4 % Lidocaine 4 % 06/24/2021 12:00:00 AM EDT suspended Lidocaine 4 % eCW1 ([facility]) valacyclovir 1000 MG Oral Tablet [Valtrex] Valtrex 1 GM Valt marii 1 GM 06/24/2021 12:00:00 AM EDT 1.0 {tablet} active Va ltrex 1 GM eCW1 ([facility]) 4 gram 06/08/2021 12:00:00 AM EDT powder 378 USE 1 SCOOP TWO TIMES A DAY USE 1 SCOOP TWO TIMES A DAY SOLD: 07/06/2021 [facility] 4 gram 06/08/2021 12:00:00 AM EDT powder [...] active Acetaminophen ER 650 MG e CW1 ([facility]) Clobetasol Propionate 0.5 MG/ML Topical Foam Clobetaso l Propionate 0.05 % Clobetasol Propionate 0.05 % 06/01/2021 12:00:00 AM EDT 1.0 {applicat ion} active Clobetasol Propionate 0.05 % eCW1 ([facility]) 8 HR Acetaminophen 650 MG Extended Release Oral Tablet Acetaminophen ER 650 MG Acetaminophen ER 650 MG 06/01/2021 12:00:00 AM EDT 1.0 {tablets_as_ needed} suspended eCW1 ([facility]) 8 HR Acetaminophen 650 MG Extended Release Oral Tablet Acetaminophen ER 650 MG Acetaminophen ER 650 MG 06/01/2021 12:00:00 AM EDT 1.0 {tablets_as_ needed} suspended Acetaminophen ER 650 MG e CW1 ([facility]) 8 HR Acetaminophen 650 MG Extended Release Oral Tablet Acetaminophen ER 650 MG Acetaminophen ER 650 MG 06/01/2021 12:00:00 AM EDT 1.0 {tablets_as_ needed} active Acetaminophen ER 650 MG e CW1 ([facility]) Clobetasol Propionate 0.5 MG/ML Topical Foam Clobetaso l Propionate 0.05 % Clobetasol Propionate 0.05 % 06/01/2021 12:00:00 AM EDT 1.0 {applicat ion} active Clobetasol Propionate 0.05 % eCW1 ([facility]) 8 HR Acetaminophen 650 MG Extended Release Oral Tablet Acetaminophen ER 650 MG Acetaminophen ER 650 MG 06/01/2021 12:00:00 AM EDT 1.0 {tablets_as_ needed} active Acetaminophen ER 650 MG e CW1 ([facility]) 300 mg 06/01/2021 12:00:00 AM EDT capsule 30 TAKE ONE CAPSULE BY MOUTH EVERY DAY TAKE ONE CAPSULE BY MOUTH EVERY DAY SOLD: 06/04/2021 [facility] Clobetasol Propionate 0.5 MG/ML Topical Foam Clobetaso l Propionate 0.05 % Clobetasol Propionate 0.05 % 06/01/2021 12:00:00 AM EDT 1.0 {applicat ion} active Clobetasol Propionate 0.05 % eCW1 ([facility]) 8 HR Acetaminophen 650 MG Extended Release Oral Tablet Acetaminophen ER 650 MG Acetaminophen ER 650 MG 06/01/2021 12:00:00 AM EDT 1.0 {tablets_as_ needed} active Acetaminophen ER 650 MG e CW1 ([facility]) 8 HR Acetaminophen 650 MG Extended Release Oral Tablet Acetaminophen ER 650 MG Acetaminophen ER 650 MG 06/01/2021 12:00:00 AM EDT 1.0 {tablets_as_ needed} active Acetaminophen ER 650 MG e CW1 ([facility]) cefdinir 300 MG Oral Capsule Cefdinir 300 MG Cefdinir 300 MG 06/01/2021 12:00:00 AM EDT active Cefdinir 300 MG eCW1 ([facility]) 8 HR Acetaminophen 650 MG Extended Release Oral Tablet Acetaminophen ER 650 MG Acetaminophen ER 650 MG 06/01/2021 12:00:00 AM EDT 1.0 {tablets_as_ needed} active Acetaminophen ER 650 MG e CW1 ([facility]) 8 HR Acetaminophen 650 MG Extended Release Oral Tablet Acetaminophen ER 650 MG Acetaminophen ER 650 MG 06/01/2021 12:00:00 AM EDT 1.0 {tablets_as_ needed} active Acetaminophen ER 650 MG e CW1 ([facility]) 8 HR Acetaminophen 650 MG Extended Release Oral Tablet Acetaminophen ER 650 MG Acetaminophen ER 650 MG 06/01/2021 12:00:00 AM EDT 1.0 {tablets_as_ needed} active Acetaminophen ER 650 MG e CW1 ([facility]) cefdinir 300 MG Oral Capsule Cefdinir 300 MG Cefdinir 300 MG 06/01/2021 12:00:00 AM EDT active Cefdinir 300 MG eCW1 ([facility]) cefdinir 300 MG Oral Capsule Cefdinir 300 MG Cefdinir 300 MG 06/01/2021 12:00:00 AM EDT active Cefdinir 300 MG eCW1 ([facility]) cefdinir 300 MG Oral Capsule Cefdinir 300 MG Cefdinir 300 MG 06/01/2021 12:00:00 AM EDT active Cefdinir 300 MG eCW1 ([facility]) cefdinir 300 MG Oral Capsule Cefdinir 300 MG Cefdinir 300 MG 06/01/2021 12:00:00 AM EDT active Cefdinir 300 MG eCW1 ([facility]) 8 HR Acetaminophen 650 MG Extended Release Oral Tablet Acetaminophen ER 650 MG Acetaminophen ER 650 MG 06/01/2021 12:00:00 AM EDT 1.0 {tablets_as_ needed} active Acetaminophen ER 650 MG e CW1 ([facility]) Clobetasol Propionate 0.5 MG/ML Topical Foam Clobetaso l Propionate 0.05 % Clobetasol Propionate 0.05 % 06/01/2021 12:00:00 AM EDT 1.0 {applicat ion} active Clobetasol Propionate 0.05 % eCW1 ([facility]) Clobetasol Propionate 0.5 MG/ML Topical Foam Clobetaso l Propionate 0.05 % Clobetasol Propionate 0.05 % 06/01/2021 12:00:00 AM EDT 1.0 {applicat ion} active Clobetasol Propionate 0.05 % eCW1 ([facility]) cefdinir 300 MG Oral Capsule Cefdinir 300 MG Cefdinir 300 MG 06/01/2021 12:00:00 AM EDT active Cefdinir 300 MG eCW1 ([facility]) Clobetasol Propionate 0.5 MG/ML Topical Foam Clobetaso l Propionate 0.05 % Clobetasol Propionate 0.05 % 06/01/2021 12:00:00 AM EDT 1.0 {applicat ion} active Clobetasol Propionate 0.05 % eCW1 ([facility]) 8 HR Acetaminophen 650 MG Extended Release Oral Tablet Acetaminophen ER 650 MG Acetaminophen ER 650 MG 06/01/2021 12:00:00 AM EDT 1.0 {tablets_as_ needed} active Acetaminophen ER 650 MG e CW1 ([facility]) 8 HR Acetaminophen 650 MG Extended Release Oral Tablet Acetaminophen ER 650 MG Acetaminophen ER 650 MG 06/01/2021 12:00:00 AM EDT 1.0 {tablets_as_ needed} active Acetaminophen ER 650 MG e CW1 ([facility]) 8 HR Acetaminophen 650 MG Extended Release Oral Tablet Acetaminophen ER 650 MG Acetaminophen ER 650 MG 06/01/2021 12:00:00 AM EDT 1.0 {tablets_as_ needed} active Acetaminophen ER 650 MG e CW1 ([facility]) Clobetasol Propionate 0.5 MG/ML Topical Foam Clobetaso l Propionate 0.05 % Clobetasol Propionate 0.05 % 06/01/2021 12:00:00 AM EDT 1.0 {applicat ion} active Clobetasol Propionate 0.05 % eCW1 ([facility]) 8 HR Acetaminophen 650 MG Extended Release Oral Tablet Acetaminophen ER 650 MG Acetaminophen ER 650 MG 06/01/2021 12:00:00 AM EDT 1.0 {tablets_as_ needed} active Acetaminophen ER 650 MG e CW1 ([facility]) 8 HR Acetaminophen 650 MG Extended Release Oral Tablet Acetaminophen ER 650 MG Acetaminophen ER 650 MG 06/01/2021 12:00:00 AM EDT 1.0 {tablets_as_ needed} active Acetaminophen ER 650 MG e CW1 ([facility]) cefdinir 300 MG Oral Capsule Cefdinir 300 MG Cefdinir 300 MG 06/01/2021 12:00:00 AM EDT active Cefdinir 300 MG eCW1 ([facility]) 50 mg 05/27/2021 12:00:00 AM EDT tablet [...] FOR PAIN SOLD: 05/29/2021 [facility] pregabalin 150 MG Oral Capsule [Lyrica] Lyrica 150 MG Lyrica 150 MG 05/26/2021 12:00:00 AM EDT 1.0 {capsule} suspended Lyrica 150 MG eCW1 ([facility]) tramadol hydrochloride 50 MG Oral Tablet traMADol HCl 50 MG traMADol HCl 50 MG 05/26/2021 12:00:00 AM EDT active traMADol HCl 50 MG eCW1 ([facility]) pregabalin 150 MG Oral Capsule [Lyrica] Lyrica 150 MG Lyrica 150 MG 05/26/2021 12:00:00 AM EDT 1.0 {capsule} active L yrica 150 MG eCW1 ([facility]) tramadol hydrochloride 50 MG Oral Tablet traMADol HCl 50 MG traMADol HCl 50 MG 05/26/2021 12:00:00 AM EDT active traMADol HCl 50 MG eCW1 ([facility]) pregabalin 150 MG Oral Capsule [Lyrica] Lyrica 150 MG Lyrica 150 MG 05/26/2021 12:00:00 AM EDT 1.0 {capsule} suspended Lyrica 150 MG eCW1 ([facility]) tramadol hydrochloride 50 MG Oral Tablet traMADol HCl 50 MG traMADol HCl 50 MG 05/26/2021 12:00:00 AM EDT active traMADol HCl 50 MG eCW1 ([facility]) pregabalin 150 MG Oral Capsule [Lyrica] Lyrica 150 MG Lyrica 150 MG 05/26/2021 12:00:00 AM EDT 1.0 {capsule} active L yrica 150 MG eCW1 ([facility]) tramadol hydrochloride 50 MG Oral Tablet traMADol HCl 50 MG traMADol HCl 50 MG 05/26/2021 12:00:00 AM EDT active traMADol HCl 50 MG eCW1 ([facility]) tramadol hydrochloride 50 MG Oral Tablet traMADol HCl 50 MG traMADol HCl 50 MG 05/26/2021 12:00:00 AM EDT active traMADol HCl 50 MG eCW1 ([facility]) pregabalin 150 MG Oral Capsule [Lyrica] Lyrica 150 MG Lyrica 150 MG 05/26/2021 12:00:00 AM EDT 1.0 {capsule} suspended Lyrica 150 MG eCW1 ([facility]) pregabalin 150 MG Oral Capsule [Lyrica] Lyrica 150 MG Lyrica 150 MG 05/26/2021 12:00:00 AM EDT 1.0 {capsule} suspended Lyrica 150 MG eCW1 ([facility]) pregabalin 150 MG Oral Capsule [Lyrica] Lyrica 150 MG Lyrica 150 MG 05/26/2021 12:00:00 AM EDT 1.0 {capsule} active L yrica 150 MG eCW1 ([facility]) pregabalin 150 MG Oral Capsule [Lyrica] Lyrica 150 MG Lyrica 150 MG 05/26/2021 12:00:00 AM EDT 1.0 {capsule} active L yrica 150 MG eCW1 ([facility]) pregabalin 150 MG Oral Capsule [Lyrica] Lyrica 150 MG Lyrica 150 MG 05/26/2021 12:00:00 AM EDT 1.0 {capsule} suspended Lyrica 150 MG eCW1 ([facility]) pregabalin 150 MG Oral Capsule [Lyrica] Lyrica 150 MG Lyrica 150 MG 05/26/2021 12:00:00 AM EDT 1.0 {capsule} suspended Lyrica 150 MG eCW1 ([facility]) pregabalin 150 MG Oral Capsule [Lyrica] Lyrica 150 MG Lyrica 150 MG 05/26/2021 12:00:00 AM EDT 1.0 {capsule} active L yrica 150 MG eCW1 ([facility]) pregabalin 150 MG Oral Capsule [Lyrica] Lyrica 150 MG Lyrica 150 MG 05/26/2021 12:00:00 AM EDT 1.0 {capsule} active L yrica 150 MG eCW1 ([facility]) pregabalin 150 MG Oral Capsule [Lyrica] Lyrica 150 MG Lyrica 150 MG 05/26/2021 12:00:00 AM EDT 1.0 {capsule} active L yrica 150 MG eCW1 ([facility]) tramadol hydrochloride 50 MG Oral Tablet traMADol HCl 50 MG traMADol HCl 50 MG 05/26/2021 12:00:00 AM EDT active traMADol HCl 50 MG eCW1 ([facility]) tramadol hydrochloride 50 MG Oral Tablet traMADol HCl 50 MG traMADol HCl 50 MG 05/26/2021 12:00:00 AM EDT active traMADol HCl 50 MG eCW1 ([facility]) tramadol hydrochloride 50 MG Oral Tablet traMADol HCl 50 MG traMADol HCl 50 MG 05/26/2021 12:00:00 AM EDT active traMADol HCl 50 MG eCW1 ([facility]) pregabalin 150 MG Oral Capsule [Lyrica] Lyrica 150 MG Lyrica 150 MG 05/26/2021 12:00:00 AM EDT 1.0 {capsule} active L yrica 150 MG eCW1 ([facility]) Cyclobenzaprine hydrochloride 10 MG Oral Tablet CYCLOBENZAPR [...] 05/26/2021 12:00:00 AM EDT 1.0 {capsule} suspended eCW1 ([facility]) pregabalin 150 MG Oral Capsule [Lyrica] Lyrica 150 MG Lyrica 150 MG 05/26/2021 12:00:00 AM EDT 1.0 {capsule} active L yrica 150 MG eCW1 ([facility]) tramadol hydrochloride 50 MG Oral Tablet traMADol HCl 50 MG traMADol HCl 50 MG 05/26/2021 12:00:00 AM EDT active traMADol HCl 50 MG eCW1 ([facility]) pregabalin 150 MG Oral Capsule [Lyrica] Lyrica 150 MG Lyrica 150 MG 05/26/2021 12:00:00 AM EDT 1.0 {capsule} suspended Lyrica 150 MG eCW1 ([facility]) tramadol hydrochloride 50 MG Oral Tablet traMADol HCl 50 MG traMADol HCl 50 MG 05/26/2021 12:00:00 AM EDT active traMADol HCl 50 MG eCW1 ([facility]) pregabalin 150 MG Oral Capsule [Lyrica] Lyrica 150 MG Lyrica 150 MG 05/26/2021 12:00:00 AM EDT 1.0 {capsule} suspended Lyrica 150 MG eCW1 ([facility]) pregabalin 150 MG Oral Capsule [Lyrica] Lyrica 150 MG Lyrica 150 MG 05/26/2021 12:00:00 AM EDT 1.0 {capsule} active L yrica 150 MG eCW1 ([facility]) pregabalin 150 MG Oral Capsule [Lyrica] Lyrica 150 MG Lyrica 150 MG 05/26/2021 12:00:00 AM EDT 1.0 {capsule} suspended Lyrica 150 MG eCW1 ([facility]) pregabalin 150 MG Oral Capsule [Lyrica] Lyrica 150 MG Lyrica 150 MG 05/26/2021 12:00:00 AM EDT 1.0 {capsule} active L yrica 150 MG eCW1 ([facility]) pregabalin 150 MG Oral Capsule [Lyrica] Lyrica 150 MG Lyrica 150 MG 05/26/2021 12:00:00 AM EDT 1.0 {capsule} active L yrica 150 MG eCW1 ([facility]) 5 mg 05/26/2021 12:00:00 AM EDT tablet [...] {capsule} active L yrica 150 MG eCW1 ([facility]) tramadol hydrochloride 50 MG Oral Tablet traMADol HCl 50 MG traMADol HCl 50 MG 05/26/2021 12:00:00 AM EDT active traMADol HCl 50 MG eCW1 ([facility]) pregabalin 150 MG Oral Capsule [Lyrica] Lyrica 150 MG Lyrica 150 MG 05/26/2021 12:00:00 AM EDT 1.0 {capsule} active L yrica 150 MG eCW1 ([facility]) pregabalin 150 MG Oral Capsule [Lyrica] Lyrica 150 MG Lyrica 150 MG 05/26/2021 12:00:00 AM EDT 1.0 {capsule} suspended Lyrica 150 MG eCW1 ([facility]) 150 mg 05/26/2021 12:00:00 AM EDT capsule [...] 1.0 {capsule} suspended Lyrica 150 MG eCW1 ([facility]) pregabalin 150 MG Oral Capsule [Lyrica] Lyrica 150 MG Lyrica 150 MG 05/26/2021 12:00:00 AM EDT 1.0 {capsule} active L yrica 150 MG eCW1 ([facility]) pregabalin 150 MG Oral Capsule [Lyrica] Lyrica 150 MG Lyrica 150 MG 05/26/2021 12:00:00 AM EDT 1.0 {capsule} suspended Lyrica 150 MG eCW1 ([facility]) pregabalin 150 MG Oral Capsule [Lyrica] Lyrica 150 MG Lyrica 150 MG 05/26/2021 12:00:00 AM EDT 1.0 {capsule} suspended Lyrica 150 MG eCW1 ([facility]) pregabalin 150 MG Oral Capsule [Lyrica] Lyrica 150 MG Lyrica 150 MG 05/26/2021 12:00:00 AM EDT 1.0 {capsule} suspended Lyrica 150 MG eCW1 ([facility]) pregabalin 150 MG Oral Capsule [Lyrica] Lyrica 150 MG Lyrica 150 MG 05/26/2021 12:00:00 AM EDT 1.0 {capsule} suspended Lyrica 150 MG eCW1 ([facility]) duloxetine 20 MG Delayed Release Oral Capsule DULoxeti ne HCl 20 MG DULoxetine HCl 20 MG 05/17/2021 12:00:00 AM EDT 1.0 {capsule} a ctive DULoxetine HCl 20 MG eCW1 ([facility]) duloxetine 20 MG Delayed Release Oral Capsule DULoxeti ne HCl 20 MG DULoxetine HCl 20 MG 05/17/2021 12:00:00 AM EDT 1.0 {capsule} a ctive DULoxetine HCl 20 MG eCW1 ([facility]) duloxetine 20 MG Delayed Release Oral Capsule DULoxeti ne HCl 20 MG DULoxetine HCl 20 MG 05/17/2021 12:00:00 AM EDT 1.0 {capsule} a ctive DULoxetine HCl 20 MG eCW1 ([facility]) duloxetine 20 MG Delayed Release Oral Capsule DULoxeti ne HCl 20 MG DULoxetine HCl 20 MG 05/17/2021 12:00:00 AM EDT 1.0 {capsule} a ctive DULoxetine HCl 20 MG eCW1 ([facility]) duloxetine 20 MG Delayed Release Oral Capsule DULoxeti ne HCl 20 MG DULoxetine HCl 20 MG 05/17/2021 12:00:00 AM EDT 1.0 {capsule} a ctive DULoxetine HCl 20 MG eCW1 ([facility]) duloxetine 20 MG Delayed Release Oral Capsule DULoxeti ne HCl 20 MG DULoxetine HCl 20 MG 05/17/2021 12:00:00 AM EDT 1.0 {capsule} activ e eCW1 ([facility]) duloxetine 20 MG Delayed Release Oral Capsule DULoxeti ne HCl 20 MG DULoxetine HCl 20 MG 05/17/2021 12:00:00 AM EDT 1.0 {capsule} a ctive DULoxetine HCl 20 MG eCW1 ([facility]) duloxetine 20 MG Delayed Release Oral Capsule DULoxeti ne HCl 20 MG DULoxetine HCl 20 MG 05/17/2021 12:00:00 AM EDT 1.0 {capsule} a ctive DULoxetine HCl 20 MG eCW1 ([facility]) duloxetine 20 MG Delayed Release Oral Capsule DULoxeti ne HCl 20 MG DULoxetine HCl 20 MG 05/17/2021 12:00:00 AM EDT 1.0 {capsule} a ctive DULoxetine HCl 20 MG eCW1 ([facility]) duloxetine 20 MG Delayed Release Oral Capsule DULoxeti ne HCl 20 MG DULoxetine HCl 20 MG 05/17/2021 12:00:00 AM EDT 1.0 {capsule} a ctive DULoxetine HCl 20 MG eCW1 ([facility]) duloxetine 20 MG Delayed Release Oral Capsule DULoxeti ne HCl 20 MG DULoxetine HCl 20 MG 05/17/2021 12:00:00 AM EDT 1.0 {capsule} a ctive DULoxetine HCl 20 MG eCW1 ([facility]) duloxetine 20 MG Delayed Release Oral Capsule DULoxeti ne HCl 20 MG DULoxetine HCl 20 MG 05/17/2021 12:00:00 AM EDT 1.0 {capsule} a ctive DULoxetine HCl 20 MG eCW1 ([facility]) duloxetine 20 MG Delayed Release Oral Capsule DULoxeti ne HCl 20 MG DULoxetine HCl 20 MG 05/17/2021 12:00:00 AM EDT 1.0 {capsule} a ctive DULoxetine HCl 20 MG eCW1 ([facility]) duloxetine 20 MG Delayed Release Oral Capsule DULoxeti ne HCl 20 MG DULoxetine HCl 20 MG 05/17/2021 12:00:00 AM EDT 1.0 {capsule} a ctive DULoxetine HCl 20 MG eCW1 ([facility]) duloxetine 20 MG Delayed Release Oral Capsule DULoxeti ne HCl 20 MG DULoxetine HCl 20 MG 05/17/2021 12:00:00 AM EDT 1.0 {capsule} a ctive DULoxetine HCl 20 MG eCW1 ([facility]) duloxetine 20 MG Delayed Release Oral Capsule DULoxeti ne HCl 20 MG DULoxetine HCl 20 MG 05/17/2021 12:00:00 AM EDT 1.0 {capsule} a ctive DULoxetine HCl 20 MG eCW1 ([facility]) duloxetine 20 MG Delayed Release Oral Capsule DULoxeti ne HCl 20 MG DULoxetine HCl 20 MG 05/17/2021 12:00:00 AM EDT 1.0 {capsule} a ctive DULoxetine HCl 20 MG eCW1 ([facility]) duloxetine 20 MG Delayed Release Oral Capsule DULoxeti ne HCl 20 MG DULoxetine HCl 20 MG 05/17/2021 12:00:00 AM EDT 1.0 {capsule} a ctive DULoxetine HCl 20 MG eCW1 ([facility]) duloxetine 20 MG Delayed Release Oral Capsule DULoxeti ne HCl 20 MG DULoxetine HCl 20 MG 05/17/2021 12:00:00 AM EDT 1.0 {capsule} a ctive DULoxetine HCl 20 MG eCW1 ([facility]) duloxetine 20 MG Delayed Release Oral Capsule DULoxeti ne HCl 20 MG DULoxetine HCl 20 MG 05/17/2021 12:00:00 AM EDT 1.0 {capsule} a ctive DULoxetine HCl 20 MG eCW1 ([facility]) Atropine Sulfate 0.025 MG / Diphenoxylat e [...] MOUTH EVERY DAY SOLD: 03/27/2021 [facility] 40 mg 03/27/2021 12:00:00 AM EDT tablet 90 TAKE ONE TABLET BY MOUTH EVERY DAY TAKE ONE TABLET BY MOUTH EVERY DAY SOLD: 06/30/2021 [facility] 30 mg 03/22/2021 12:00:00 AM EDT capsule,delayed release (DR/EC) 30 TAKE ONE CAPSULE BY MOUTH EVERY DAY FOR PAIN TAKE ONE CAPSULE BY MOUTH EVERY DAY FOR PAIN SOLD: 04/27/2021 [facility] Fluconazole 150 MG Oral Tablet [Diflucan] Diflucan 150 MG Di flucan 150 MG 03/22/2021 12:00:00 AM EDT 1.0 {tablet} active Diflucan 150 MG eCW1 ([facility]) Fluconazole 150 MG Oral Tablet [Diflucan] Diflucan 150 MG Di flucan 150 MG 03/22/2021 12:00:00 AM EDT 1.0 {tablet} active Diflucan 150 MG eCW1 ([facility]) 150 mg 03/22/2021 12:00:00 AM EDT tablet 1 TAKE ONE TABLET BY MOUTH ONCE TAKE ONE TABLET BY MOUTH ONCE SOLD: 03/22/2021 [facility] Cyclobenzaprine hydrochloride 10 MG Oral [...] 1.0 {tablet} active Diflucan 150 MG eCW1 ([facility]) Fluconazole 150 MG Oral Tablet [Diflucan] Diflucan 150 MG Di flucan 150 MG 03/22/2021 12:00:00 AM EDT 1.0 {tablet} active Diflucan 150 MG eCW1 ([facility]) 30 mg 03/22/2021 12:00:00 AM EDT capsule,delayed release (DR/EC) 30 TAKE ONE CAPSULE BY MOUTH EVERY DAY FOR PAIN TAKE ONE CAPSULE BY MOUTH EVERY DAY FOR PAIN SOLD: 03/22/[address] [facility] Fluconazole 150 MG Oral Tablet [Diflucan] Diflucan 150 MG Di flucan 150 MG 03/22/2021 12:00:00 AM EDT 1.0 {tablet} active Diflucan 150 MG eCW1 ([facility]) Fluconazole 150 MG Oral Tablet [Diflucan] Diflucan 150 MG Di flucan 150 MG 03/22/2021 12:00:00 AM EDT 1.0 {tablet} active Diflucan 150 MG eCW1 ([facility]) Cyclobenzaprine hydrochloride 10 MG Oral Tablet CYCLOBENZAPR [...] 1.0 {tablet} active Diflucan 150 MG eCW1 ([facility]) 150 mg 03/21/2021 12:00:00 AM EDT capsule 90 TAKE ONE CAPSULE BY MOUTH THREE TIMES A DAY FOR PAIN MAXIMUM DAILY DOSE = 3 TAKE ONE CAPSULE BY MOUTH THREE TIMES A DAY FOR PAIN MAXIMUM DAILY DOSE = 3 SOLD: 03/22/2021 [facility] 50 mg 03/21/2021 12:00:00 AM EDT tablet 90 TAKE ONE TABLET BY MOUTH EVERY 6 HOURS NEEDED FOR PAIN MAXIMUM DAILY DOSE = 4 TAKE ONE TABLET BY MOUTH EVERY 6 HOURS NEEDED FOR PAIN MAXIMUM DAILY DOSE = 4 SOLD: 04/27/2021 [facility] 150 mg 03/21/2021 12:00:00 AM EDT capsule 90 TAKE ONE CAPSULE BY MOUTH THREE TIMES A DAY FOR PAIN MAXIMUM DAILY DOSE = 3 TAKE ONE CAPSULE BY MOUTH THREE TIMES A DAY FOR PAIN MAXIMUM DAILY DOSE = 3 SOLD: 04/27/2021 [facility] 50 mg 03/21/2021 12:00:00 AM EDT [...] 1.0 {tablet} active Augmentin 500-125 MG eCW1 ([facility]) 30 mg 03/16/2021 12:00:00 AM EDT tablet [...] EDT active Pseudoephedrine HCl 30 MG eCW1 ([facility]) Pseudoephedrine Hydrochloride 30 MG Oral Tablet Pseudo ephedrine HCl 30 MG Pseudoephedrine HCl 30 MG 03/16/2021 12:00:00 AM EDT active eCW1 ([facility]) Pseudoephedrine Hydrochloride 30 MG Oral Tablet Pseudo ephedrine HCl 30 MG Pseudoephedrine HCl 30 MG 03/16/2021 12:00:00 AM EDT active Pseudoephedrine HCl 30 MG eCW1 ([facility]) Amoxicillin 500 MG / Clavulanate 125 MG [...] 1.0 {tablet} active Augmentin 500-125 MG eCW1 ([facility]) Pseudoephedrine Hydrochloride 30 MG Oral Tablet Pseudo ephedrine HCl 30 MG Pseudoephedrine HCl 30 MG 03/16/2021 12:00:00 AM EDT active Pseudoephedrine HCl 30 MG eCW1 ([facility]) Pseudoephedrine Hydrochloride 30 MG Oral Tablet Pseudo ephedrine HCl 30 MG Pseudoephedrine HCl 30 MG 03/16/2021 12:00:00 AM EDT active Pseudoephedrine HCl 30 MG eCW1 ([facility]) Pseudoephedrine Hydrochloride 30 MG Oral Tablet Pseudo ephedrine HCl 30 MG Pseudoephedrine HCl 30 MG 03/16/2021 12:00:00 AM EDT active Pseudoephedrine HCl 30 MG eCW1 ([facility]) Pseudoephedrine Hydrochloride 30 MG Oral Tablet Pseudo ephedrine HCl 30 MG Pseudoephedrine HCl 30 MG 03/16/2021 12:00:00 AM EDT active Pseudoephedrine HCl 30 MG eCW1 ([facility]) Amoxicillin 500 MG / Clavulanate 125 MG Oral Tablet [Augmentin] Augmentin 500- 125 MG Augmentin 500-125 MG 03/16/2021 12:00:00 AM EDT 1.0 {tablet} active Augmentin 500-125 MG eCW1 ([facility]) 80 mg 03/16/2021 12:00:00 AM EDT tablet,chewable 90 TAKE 1 TABLET BY MOUTH AFTER MEALS FOR GAS/ BLOATING NEEDED UP TO 3 TIMES DAILY TAKE 1 TABLET BY MOUTH AFTER MEALS FOR GAS/ BLOATING NEEDED UP TO 3 TIMES DAILY SOLD: 03/16/2021 [facility] Pseudoephedrine Hydrochloride 30 MG Oral Tablet Pseudo ephedrine HCl 30 MG Pseudoephedrine HCl 30 MG 03/16/2021 12:00:00 AM EDT active Pseudoephedrine HCl 30 MG eCW1 ([facility]) Pseudoephedrine Hydrochloride 30 MG Oral Tablet Pseudo ephedrine HCl 30 MG Pseudoephedrine HCl 30 MG 03/16/2021 12:00:00 AM EDT active Pseudoephedrine HCl 30 MG eCW1 ([facility]) 80 mg 03/16/2021 12:00:00 AM EDT tablet,chewable [...] EDT active Pseudoephedrine HCl 30 MG eCW1 ([facility]) Amoxicillin 500 MG / Clavulanate 125 MG Oral Tablet [Augmentin] Augmentin 500- 125 MG Augmentin 500-125 MG 03/16/2021 12:00:00 AM EDT 1.0 {tablet} active Augmentin 500-125 MG eCW1 ([facility]) Pseudoephedrine Hydrochloride 30 MG Oral Tablet Pseudo ephedrine HCl 30 MG Pseudoephedrine HCl 30 MG 03/16/2021 12:00:00 AM EDT active Pseudoephedrine HCl 30 MG eCW1 ([facility]) Amoxicillin 500 MG / Clavulanate 125 MG Oral Tablet [Augmentin] Augmentin 500- 125 MG Augmentin 500-125 MG 03/16/2021 12:00:00 AM EDT 1.0 {tablet} active Augmentin 500-125 MG eCW1 ([facility]) Pseudoephedrine Hydrochloride 30 MG Oral Tablet Pseudo ephedrine HCl 30 MG Pseudoephedrine HCl 30 MG 03/16/2021 12:00:00 AM EDT active Pseudoephedrine HCl 30 MG eCW1 ([facility]) Pseudoephedrine Hydrochloride 30 MG Oral Tablet Pseudo ephedrine HCl 30 MG Pseudoephedrine HCl 30 MG 03/16/2021 12:00:00 AM EDT active Pseudoephedrine HCl 30 MG eCW1 ([facility]) Amoxicillin 500 MG / Clavulanate 125 MG Oral Tablet [Augmentin] Augmentin 500- 125 MG Augmentin 500-125 MG 03/16/2021 12:00:00 AM EDT 1.0 {tablet} active Augmentin 500-125 MG eCW1 ([facility]) Pseudoephedrine Hydrochloride 30 MG Oral Tablet Pseudo ephedrine HCl 30 MG Pseudoephedrine HCl 30 MG 03/16/2021 12:00:00 AM EDT active Pseudoephedrine HCl 30 MG eCW1 ([facility]) Pseudoephedrine Hydrochloride 30 MG Oral Tablet Pseudo ephedrine HCl 30 MG Pseudoephedrine HCl 30 MG 03/16/2021 12:00:00 AM EDT active Pseudoephedrine HCl 30 MG eCW1 ([facility]) Pseudoephedrine Hydrochloride 30 MG Oral Tablet Pseudo ephedrine HCl 30 MG Pseudoephedrine HCl 30 MG 03/16/2021 12:00:00 AM EDT active Pseudoephedrine HCl 30 MG eCW1 ([facility]) Pseudoephedrine Hydrochloride 30 MG Oral Tablet Pseudo ephedrine HCl 30 MG Pseudoephedrine HCl 30 MG 03/16/2021 12:00:00 AM EDT active Pseudoephedrine HCl 30 MG eCW1 ([facility]) Pseudoephedrine Hydrochloride 30 MG Oral Tablet Pseudo ephedrine HCl 30 MG Pseudoephedrine HCl 30 MG 03/16/2021 12:00:00 AM EDT active Pseudoephedrine HCl 30 MG eCW1 ([facility]) Pseudoephedrine Hydrochloride 30 MG Oral Tablet Pseudo ephedrine HCl 30 MG Pseudoephedrine HCl 30 MG 03/16/2021 12:00:00 AM EDT active Pseudoephedrine HCl 30 MG eCW1 ([facility]) Atropine Sulfate 0.025 MG / Diphenoxylat e Hydrochloride 2.5 MG Oral Tablet 2.5- 0.025 mg DIPHENOXYLATE HCL/ATROPINE 03/16/2021 12:00:00 AM EDT tablet 60 TAKE 1 TABLET BY MOUTH UP TO TWICE DAILY FOR DIARRHEA MAXIMUM DAILY DOSE = 2 TABLETS TAKE 1 TABLET BY MOUTH UP TO TWICE DAILY FOR DIARRHEA MAXIMUM DAILY DOSE = 2 TABLETS SOLD: 03/16/2021 [facility] 55 mcg 03/16/2021 12:00:00 AM EDT aerosol,spray 16 SPRAY 1 SPRAY IN EACH NOSTRIL ONCE A DAY SPRAY 1 SPRAY IN EACH NOSTRIL ONCE A DAY SOLD: 03/16/2021 [employer] Pseudoephedrine Hydrochloride 30 MG Oral Tablet Pseudo ephedrine HCl 30 MG Pseudoephedrine HCl 30 MG 03/16/2021 12:00:00 AM EDT active Pseudoephedrine HCl 30 MG eCW1 ([facility]) Pseudoephedrine Hydrochloride 30 MG Oral Tablet Pseudo ephedrine HCl 30 MG Pseudoephedrine HCl 30 MG 03/16/2021 12:00:00 AM EDT active Pseudoephedrine HCl 30 MG eCW1 ([facility]) Amoxicillin 500 MG / Clavulanate 125 MG Oral Tablet [Augmentin] Augmentin 500- 125 MG Augmentin 500-125 MG 03/16/2021 12:00:00 AM EDT 1.0 {tablet} active Augmentin 500-125 MG eCW1 ([facility]) Amoxicillin 500 MG / Clavulanate 125 MG Oral Tablet [Augmentin] Augmentin 500- 125 MG Augmentin 500-125 MG 03/16/2021 12:00:00 AM EDT 1.0 {tablet} active Augmentin 500-125 MG eCW1 ([facility]) Amoxicillin 500 MG / Clavulanate 125 MG Oral Tablet [Augmentin] Augmentin 500- 125 MG Augmentin 500-125 MG 03/16/2021 12:00:00 AM EDT 1.0 {tablet} active Augmentin 500-125 MG eCW1 ([facility]) Pseudoephedrine Hydrochloride 30 MG Oral Tablet Pseudo ephedrine HCl 30 MG Pseudoephedrine HCl 30 MG 03/16/2021 12:00:00 AM EDT active Pseudoephedrine HCl 30 MG eCW1 ([facility]) Pseudoephedrine Hydrochloride 30 MG Oral Tablet Pseudo ephedrine HCl 30 MG Pseudoephedrine HCl 30 MG 03/16/2021 12:00:00 AM EDT active Pseudoephedrine HCl 30 MG eCW1 ([facility]) Pseudoephedrine Hydrochloride 30 MG Oral Tablet Pseudo ephedrine HCl 30 MG Pseudoephedrine HCl 30 MG 03/16/2021 12:00:00 AM EDT active Pseudoephedrine HCl 30 MG eCW1 ([facility]) Pseudoephedrine Hydrochloride 30 MG Oral Tablet Pseudo ephedrine HCl 30 MG Pseudoephedrine HCl 30 MG 03/16/2021 12:00:00 AM EDT active Pseudoephedrine HCl 30 MG eCW1 ([facility]) 80 mg 03/16/2021 12:00:00 AM EDT tablet,chewable [...] EDT active Pseudoephedrine HCl 30 MG eCW1 ([facility]) Pseudoephedrine Hydrochloride 30 MG Oral Tablet Pseudo ephedrine HCl 30 MG Pseudoephedrine HCl 30 MG 03/16/2021 12:00:00 AM EDT active Pseudoephedrine HCl 30 MG eCW1 ([facility]) Pseudoephedrine Hydrochloride 30 MG Oral Tablet Pseudo ephedrine HCl 30 MG Pseudoephedrine HCl 30 MG 03/16/2021 12:00:00 AM EDT active Pseudoephedrine HCl 30 MG eCW1 ([facility]) Pseudoephedrine Hydrochloride 30 MG Oral Tablet Pseudo ephedrine HCl 30 MG Pseudoephedrine HCl 30 MG 03/16/2021 12:00:00 AM EDT active Pseudoephedrine HCl 30 MG eCW1 ([facility]) Wrist Splint/Cock-Up/Right Sm - Wrist Splint/Cock-Up/Right S m - 03/11/2021 12:00:00 AM EDT active Wrist Sp lint/Cock-Up/Right Sm - eCW1 ([facility]) Wrist Splint/Cock-Up/Right Sm - Wrist Splint/Cock-Up/Right S - 03/11/2021 12:00:00 AM EDT active Wrist Sp lint/Cock-Up/Right Sm - eCW1 ([facility]) Wrist Splint/Cock-Up/Left Sm - Wrist Splint/Cock-Up/Left Sm - 03/11/2021 12:00:00 AM EDT active Wrist Sp lint/Cock-Up/Left Sm - eCW1 ([facility]) Wrist Splint/Cock-Up/Right Sm - Wrist Splint/Cock-Up/Right S 03/11/2021 12:00:00 AM EDT active Wrist Sp lint/Cock-Up/Right Sm - eCW1 ([facility]) Wrist Splint/Cock-Up/Left Sm - Wrist Splint/Cock-Up/Left Sm - 03/11/2021 12:00:00 AM EDT active Wrist Sp lint/Cock-Up/Left Sm - eCW1 ([facility]) Wrist Splint/Cock-Up/Right Sm - Wrist Splint/Cock-Up/Right S - 03/11/2021 12:00:00 AM EDT active Wrist Sp lint/Cock-Up/Right Sm - eCW1 ([facility]) Wrist Splint/Cock-Up/Right Sm - Wrist Splint/Cock-Up/Right S 03/11/2021 12:00:00 AM EDT active e CW1 ([facility]) Wrist Splint/Cock-Up/Right Sm - Wrist Splint/Cock-Up/Right S - 03/11/2021 12:00:00 AM EDT active Wrist Sp lint/Cock-Up/Right Sm - eCW1 ([facility]) Wrist Splint/Cock-Up/Left Sm - Wrist Splint/Cock-Up/Left Sm - 03/11/2021 12:00:00 AM EDT active Wrist Sp lint/Cock-Up/Left Sm - eCW1 ([facility]) Wrist Splint/Cock-Up/Left Sm - Wrist Splint/Cock-Up/Left Sm - 03/11/2021 12:00:00 AM EDT active Wrist Sp lint/Cock-Up/Left Sm - eCW1 ([facility]) Wrist Splint/Cock-Up/Left Sm - Wrist Splint/Cock-Up/Left Sm - 03/11/2021 12:00:00 AM EDT active Wrist Sp lint/Cock-Up/Left Sm - eCW1 ([facility]) Wrist Splint/Cock-Up/Left Sm - Wrist Splint/Cock-Up/Left Sm - 03/11/2021 12:00:00 AM EDT active Wrist Sp lint/Cock-Up/Left Sm - eCW1 ([facility]) Wrist Splint/Cock-Up/Right Sm - Wrist Splint/Cock-Up/Right S m - 03/11/2021 12:00:00 AM EDT active Wrist Sp lint/Cock-Up/Right Sm - eCW1 ([facility]) Wrist Splint/Cock-Up/Left Sm - Wrist Splint/Cock-Up/Left Sm - 03/11/2021 12:00:00 AM EDT active Wrist Sp lint/Cock-Up/Left Sm - eCW1 ([facility]) Wrist Splint/Cock-Up/Left Sm - Wrist Splint/Cock-Up/Left Sm - 03/11/2021 12:00:00 AM EDT active Wrist Sp lint/Cock-Up/Left Sm - eCW1 ([facility]) Wrist Splint/Cock-Up/Right Sm - Wrist Splint/Cock-Up/Right S m - 03/11/2021 12:00:00 AM EDT active Wrist Sp lint/Cock-Up/Right Sm - eCW1 ([facility]) Wrist Splint/Cock-Up/Left Sm - Wrist Splint/Cock-Up/Left Sm - 03/11/2021 12:00:00 AM EDT active Wrist Sp lint/Cock-Up/Left Sm - eCW1 ([facility]) Wrist Splint/Cock-Up/Left Sm - Wrist Splint/Cock-Up/Left Sm - 03/11/2021 12:00:00 AM EDT active Wrist Sp lint/Cock-Up/Left Sm - eCW1 ([facility]) Wrist Splint/Cock-Up/Right Sm - Wrist Splint/Cock-Up/Right S 03/11/2021 12:00:00 AM EDT active Wrist Sp lint/Cock-Up/Right Sm - eCW1 ([facility]) Wrist Splint/Cock-Up/Left Sm - Wrist Splint/Cock-Up/Left Sm - 03/11/2021 12:00:00 AM EDT active Wrist Sp lint/Cock-Up/Left Sm - eCW1 ([facility]) Wrist Splint/Cock-Up/Right Sm - Wrist Splint/Cock-Up/Right S 03/11/2021 12:00:00 AM EDT active Wrist Sp lint/Cock-Up/Right Sm - eCW1 ([facility]) Wrist Splint/Cock-Up/Right Sm - Wrist Splint/Cock-Up/Right S 03/11/2021 12:00:00 AM EDT active Wrist Sp lint/Cock-Up/Right Sm - eCW1 ([facility]) Wrist Splint/Cock-Up/Left Sm - Wrist Splint/Cock-Up/Left Sm - 03/11/2021 12:00:00 AM EDT active Wrist Sp lint/Cock-Up/Left Sm - eCW1 ([facility]) Wrist Splint/Cock-Up/Right Sm - Wrist Splint/Cock-Up/Right S 03/11/2021 12:00:00 AM EDT active Wrist Sp lint/Cock-Up/Right Sm - eCW1 ([facility]) Wrist Splint/Cock-Up/Left Sm - Wrist Splint/Cock-Up/Left Sm - 03/11/2021 12:00:00 AM EDT active Wrist Sp lint/Cock-Up/Left Sm - eCW1 ([facility]) Wrist Splint/Cock-Up/Right Sm - Wrist Splint/Cock-Up/Right S 03/11/2021 12:00:00 AM EDT active Wrist Sp lint/Cock-Up/Right Sm - eCW1 ([facility]) Wrist Splint/Cock-Up/Right Sm - Wrist Splint/Cock-Up/Right S 03/11/2021 12:00:00 AM EDT active Wrist Sp lint/Cock-Up/Right Sm - eCW1 ([facility]) Wrist Splint/Cock-Up/Right Sm - Wrist Splint/Cock-Up/Right S - 03/11/2021 12:00:00 AM EDT active Wrist Sp lint/Cock-Up/Right Sm - eCW1 ([facility]) Wrist Splint/Cock-Up/Left Sm - Wrist Splint/Cock-Up/Left Sm - 03/11/2021 12:00:00 AM EDT active Wrist Sp lint/Cock-Up/Left Sm - eCW1 ([facility]) Wrist Splint/Cock-Up/Right Sm - Wrist Splint/Cock-Up/Right S 03/11/2021 12:00:00 AM EDT active Wrist Sp lint/Cock-Up/Right Sm - eCW1 ([facility]) Wrist Splint/Cock-Up/Left Sm - Wrist Splint/Cock-Up/Left Sm - 03/11/2021 12:00:00 AM EDT active Wrist Sp lint/Cock-Up/Left Sm - eCW1 ([facility]) Wrist Splint/Cock-Up/Right Sm - Wrist Splint/Cock-Up/Right S 03/11/2021 12:00:00 AM EDT active Wrist Sp lint/Cock-Up/Right Sm - eCW1 ([facility]) Wrist Splint/Cock-Up/Left Sm - Wrist Splint/Cock-Up/Left Sm - 03/11/2021 12:00:00 AM EDT active Wrist Sp lint/Cock-Up/Left Sm - eCW1 ([facility]) Wrist Splint/Cock-Up/Right Sm - Wrist Splint/Cock-Up/Right S - 03/11/2021 12:00:00 AM EDT active Wrist Sp lint/Cock-Up/Right Sm - eCW1 ([facility]) Wrist Splint/Cock-Up/Left Sm - Wrist Splint/Cock-Up/Left Sm - 03/11/2021 12:00:00 AM EDT active Wrist Sp lint/Cock-Up/Left Sm - eCW1 ([facility]) Wrist Splint/Cock-Up/Left Sm - Wrist Splint/Cock-Up/Left Sm - 03/11/2021 12:00:00 AM EDT active Wrist Sp lint/Cock-Up/Left Sm - eCW1 ([facility]) Wrist Splint/Cock-Up/Left Sm - Wrist Splint/Cock-Up/Left Sm - 03/11/2021 12:00:00 AM EDT active Wrist Sp lint/Cock-Up/Left Sm - eCW1 ([facility]) Wrist Splint/Cock-Up/Right Sm - Wrist Splint/Cock-Up/Right S - 03/11/2021 12:00:00 AM EDT active Wrist Sp lint/Cock-Up/Right Sm - eCW1 ([facility]) Wrist Splint/Cock-Up/Left Sm - Wrist Splint/Cock-Up/Left Sm - 03/11/2021 12:00:00 AM EDT active Wrist Sp lint/Cock-Up/Left Sm - eCW1 ([facility]) Wrist Splint/Cock-Up/Left Sm - Wrist Splint/Cock-Up/Left Sm - 03/11/2021 12:00:00 AM EDT active Wrist Sp lint/Cock-Up/Left Sm - eCW1 ([facility]) Wrist Splint/Cock-Up/Right Sm - Wrist Splint/Cock-Up/Right S - 03/11/2021 12:00:00 AM EDT active Wrist Sp lint/Cock-Up/Right Sm - eCW1 ([facility]) Wrist Splint/Cock-Up/Right Sm - Wrist Splint/Cock-Up/Right S m - 03/11/2021 12:00:00 AM EDT active Wrist Sp lint/Cock-Up/Right Sm - eCW1 ([facility]) Wrist Splint/Cock-Up/Left Sm - Wrist Splint/Cock-Up/Left Sm - 03/11/2021 12:00:00 AM EDT active e CW1 ([facility]) Wrist Splint/Cock-Up/Left Sm - Wrist Splint/Cock-Up/Left Sm - 03/11/2021 12:00:00 AM EDT active Wrist Sp lint/Cock-Up/Left Sm - eCW1 ([facility]) Wrist Splint/Cock-Up/Right Sm - Wrist Splint/Cock-Up/Right S 03/11/2021 12:00:00 AM EDT active Wrist Sp lint/Cock-Up/Right Sm - eCW1 ([facility]) Wrist Splint/Cock-Up/Right Sm - Wrist Splint/Cock-Up/Right S 03/11/2021 12:00:00 AM EDT active Wrist Sp lint/Cock-Up/Right Sm - eCW1 ([facility]) Wrist Splint/Cock-Up/Right Sm - Wrist Splint/Cock-Up/Right S 03/11/2021 12:00:00 AM EDT active Wrist Sp lint/Cock-Up/Right Sm - eCW1 ([facility]) Wrist Splint/Cock-Up/Left Sm - Wrist Splint/Cock-Up/Left Sm - 03/11/2021 12:00:00 AM EDT active Wrist Sp lint/Cock-Up/Left Sm - eCW1 ([facility]) Wrist Splint/Cock-Up/Right Sm - Wrist Splint/Cock-Up/Right S 03/11/2021 12:00:00 AM EDT active Wrist Sp lint/Cock-Up/Right Sm - eCW1 ([facility]) Wrist Splint/Cock-Up/Right Sm - Wrist Splint/Cock-Up/Right S 03/11/2021 12:00:00 AM EDT active Wrist Sp lint/Cock-Up/Right Sm - eCW1 ([facility]) Wrist Splint/Cock-Up/Left Sm - Wrist Splint/Cock-Up/Left Sm - 03/11/2021 12:00:00 AM EDT active Wrist Sp lint/Cock-Up/Left Sm - eCW1 ([facility]) Wrist Splint/Cock-Up/Right Sm - Wrist Splint/Cock-Up/Right S m - 03/11/2021 12:00:00 AM EDT active Wrist Sp lint/Cock-Up/Right Sm - eCW1 ([facility]) Wrist Splint/Cock-Up/Left Sm - Wrist Splint/Cock-Up/Left Sm - 03/11/2021 12:00:00 AM EDT active Wrist Sp lint/Cock-Up/Left Sm - eCW1 ([facility]) Wrist Splint/Cock-Up/Left Sm - Wrist Splint/Cock-Up/Left Sm - 03/11/2021 12:00:00 AM EDT active Wrist Sp lint/Cock-Up/Left Sm - eCW1 ([facility]) Wrist Splint/Cock-Up/Left Sm - Wrist Splint/Cock-Up/Left Sm - 03/11/2021 12:00:00 AM EDT active Wrist Sp lint/Cock-Up/Left Sm - eCW1 ([facility]) Wrist Splint/Cock-Up/Left Sm - Wrist Splint/Cock-Up/Left Sm - 03/11/2021 12:00:00 AM EDT active Wrist Sp lint/Cock-Up/Left Sm - eCW1 ([facility]) Wrist Splint/Cock-Up/Right Sm - Wrist Splint/Cock-Up/Right S m - 03/11/2021 12:00:00 AM EDT active Wrist Sp lint/Cock-Up/Right Sm - eCW1 ([facility]) Wrist Splint/Cock-Up/Right Sm - Wrist Splint/Cock-Up/Right S m - 03/11/2021 12:00:00 AM EDT active Wrist Sp lint/Cock-Up/Right Sm - eCW1 ([facility]) 40 mg 03/04/2021 12:00:00 AM EDT tablet [...] 12:00:00 A M EDT ORAL active MEDENT ([facility], ) 30 mg 02/17/2021 12:00:00 AM [...] activ e buPROPion HCl 75 MG eCW1 ([facility]) Bupropion Hydrochloride 75 MG Oral Tablet buPROPion HC l 75 MG buPROPion HCl 75 MG 02/15/2021 12:00:00 AM EDT 1.0 {tablet} activ e buPROPion HCl 75 MG eCW1 ([facility]) Bupropion Hydrochloride 75 MG Oral Tablet buPROPion HC l 75 MG buPROPion HCl 75 MG 02/15/2021 12:00:00 AM EDT 1.0 {tablet} activ e buPROPion HCl 75 MG eCW1 ([facility]) Bupropion Hydrochloride 75 MG Oral Tablet buPROPion HC l 75 MG buPROPion HCl 75 MG 02/15/2021 12:00:00 AM EDT 1.0 {tablet} activ e buPROPion HCl 75 MG eCW1 ([facility]) Bupropion Hydrochloride 75 MG Oral Tablet buPROPion HC l 75 MG buPROPion HCl 75 MG 02/15/2021 12:00:00 AM EDT 1.0 {tablet} activ e buPROPion HCl 75 MG eCW1 ([facility]) Bupropion Hydrochloride 75 MG Oral Tablet buPROPion HC l 75 MG buPROPion HCl 75 MG 02/15/2021 12:00:00 AM EDT 1.0 {tablet} activ e buPROPion HCl 75 MG eCW1 ([facility]) Bupropion Hydrochloride 75 MG Oral Tablet buPROPion HC l 75 MG buPROPion HCl 75 MG 02/15/2021 12:00:00 AM EDT 1.0 {tablet} activ e buPROPion HCl 75 MG eCW1 ([facility]) Bupropion Hydrochloride 75 MG Oral Tablet buPROPion HC l 75 MG buPROPion HCl 75 MG 02/15/2021 12:00:00 AM EDT 1.0 {tablet} activ e buPROPion HCl 75 MG eCW1 ([facility]) Bupropion Hydrochloride 75 MG Oral Tablet buPROPion HC l 75 MG buPROPion HCl 75 MG 02/15/2021 12:00:00 AM EDT 1.0 {tablet} activ e buPROPion HCl 75 MG eCW1 ([facility]) Bupropion Hydrochloride 75 MG Oral Tablet buPROPion HC l 75 MG buPROPion HCl 75 MG 02/15/2021 12:00:00 AM EDT 1.0 {tablet} activ e buPROPion HCl 75 MG eCW1 ([facility]) Bupropion Hydrochloride 75 MG Oral Tablet buPROPion HC l 75 MG buPROPion HCl 75 MG 02/15/2021 12:00:00 AM EDT 1.0 {tablet} activ e buPROPion HCl 75 MG eCW1 ([facility]) Bupropion Hydrochloride 75 MG Oral Tablet buPROPion HC l 75 MG buPROPion HCl 75 MG 02/15/2021 12:00:00 AM EDT 1.0 {tablet} activ e buPROPion HCl 75 MG eCW1 ([facility]) Bupropion Hydrochloride 75 MG Oral Tablet buPROPion HC l 75 MG buPROPion HCl 75 MG 02/15/2021 12:00:00 AM EDT 1.0 {tablet} activ e buPROPion HCl 75 MG eCW1 ([facility]) Bupropion Hydrochloride 75 MG Oral Tablet buPROPion HC l 75 MG buPROPion HCl 75 MG 02/15/2021 12:00:00 AM EDT 1.0 {tablet} activ e buPROPion HCl 75 MG eCW1 ([facility]) Bupropion Hydrochloride 75 MG Oral Tablet buPROPion HC l 75 MG buPROPion HCl 75 MG 02/15/2021 12:00:00 AM EDT 1.0 {tablet} activ e buPROPion HCl 75 MG eCW1 ([facility]) Bupropion Hydrochloride 75 MG Oral Tablet buPROPion HC l 75 MG buPROPion HCl 75 MG 02/15/2021 12:00:00 AM EDT 1.0 {tablet} activ e buPROPion HCl 75 MG eCW1 ([facility]) Bupropion Hydrochloride 75 MG Oral Tablet buPROPion HC l 75 MG buPROPion HCl 75 MG 02/15/2021 12:00:00 AM EDT 1.0 {tablet} activ e buPROPion HCl 75 MG eCW1 ([facility]) Bupropion Hydrochloride 75 MG Oral Tablet buPROPion HC l 75 MG buPROPion HCl 75 MG 02/15/2021 12:00:00 AM EDT 1.0 {tablet} activ e buPROPion HCl 75 MG eCW1 ([facility]) Bupropion Hydrochloride 75 MG Oral Tablet buPROPion HC l 75 MG buPROPion HCl 75 MG 02/15/2021 12:00:00 AM EDT 1.0 {tablet} activ e buPROPion HCl 75 MG eCW1 ([facility]) Bupropion Hydrochloride 75 MG Oral Tablet buPROPion HC l 75 MG buPROPion HCl 75 MG 02/15/2021 12:00:00 AM EDT 1.0 {tablet} activ e buPROPion HCl 75 MG eCW1 ([facility]) Bupropion Hydrochloride 75 MG Oral Tablet buPROPion HC l 75 MG buPROPion HCl 75 MG 02/15/2021 12:00:00 AM EDT 1.0 {tablet} activ e buPROPion HCl 75 MG eCW1 ([facility]) Bupropion Hydrochloride 75 MG Oral Tablet buPROPion HC l 75 MG buPROPion HCl 75 MG 02/15/2021 12:00:00 AM EDT 1.0 {tablet} activ e buPROPion HCl 75 MG eCW1 ([facility]) Bupropion Hydrochloride 75 MG Oral Tablet buPROPion HC l 75 MG buPROPion HCl 75 MG 02/15/2021 12:00:00 AM EDT 1.0 {tablet} activ e buPROPion HCl 75 MG eCW1 ([facility]) Bupropion Hydrochloride 75 MG Oral Tablet buPROPion HC l 75 MG buPROPion HCl 75 MG 02/15/2021 12:00:00 AM EDT 1.0 {tablet} activ e buPROPion HCl 75 MG eCW1 ([facility]) Bupropion Hydrochloride 75 MG Oral Tablet buPROPion HC l 75 MG buPROPion HCl 75 MG 02/15/2021 12:00:00 AM EDT 1.0 {tablet} activ e buPROPion HCl 75 MG eCW1 ([facility]) Bupropion Hydrochloride 75 MG Oral Tablet buPROPion HC l 75 MG buPROPion HCl 75 MG 02/15/2021 12:00:00 AM EDT 1.0 {tablet} activ e buPROPion HCl 75 MG eCW1 ([facility]) Bupropion Hydrochloride 75 MG Oral Tablet buPROPion HC l 75 MG buPROPion HCl 75 MG 02/15/2021 12:00:00 AM EDT 1.0 {tablet} activ e buPROPion HCl 75 MG eCW1 ([facility]) Bupropion Hydrochloride 75 MG Oral Tablet buPROPion HC l 75 MG buPROPion HCl 75 MG 02/15/2021 12:00:00 AM EDT 1.0 {tablet} activ e buPROPion HCl 75 MG eCW1 ([facility]) Bupropion Hydrochloride 75 MG Oral Tablet buPROPion HC l 75 MG buPROPion HCl 75 MG 02/15/2021 12:00:00 AM EDT 1.0 {tablet} activ e buPROPion HCl 75 MG eCW1 ([facility]) Bupropion Hydrochloride 75 MG Oral Tablet buPROPion HC l 75 MG buPROPion HCl 75 MG 02/15/2021 12:00:00 AM EDT 1.0 {tablet} activ e buPROPion HCl 75 MG eCW1 ([facility]) Bupropion Hydrochloride 75 MG Oral Tablet buPROPion HC l 75 MG buPROPion HCl 75 MG 02/15/2021 12:00:00 AM EDT 1.0 {tablet} activ e buPROPion HCl 75 MG eCW1 ([facility]) Bupropion Hydrochloride 75 MG Oral Tablet buPROPion HC l 75 MG buPROPion HCl 75 MG 02/15/2021 12:00:00 AM EDT 1.0 {tablet} active eCW1 ([facility]) Bupropion Hydrochloride 75 MG Oral Tablet buPROPion HC l 75 MG buPROPion HCl 75 MG 02/15/2021 12:00:00 AM EDT 1.0 {tablet} activ e buPROPion HCl 75 MG eCW1 ([facility]) Bupropion Hydrochloride 75 MG Oral Tablet buPROPion HC l 75 MG buPROPion HCl 75 MG 02/15/2021 12:00:00 AM EDT 1.0 {tablet} activ e buPROPion HCl 75 MG eCW1 ([facility]) Bupropion Hydrochloride 75 MG Oral Tablet buPROPion HC l 75 MG buPROPion HCl 75 MG 02/15/2021 12:00:00 AM EDT 1.0 {tablet} activ e buPROPion HCl 75 MG eCW1 ([facility]) cefdinir 300 MG Oral Capsule Cefdinir 300 MG Cefdinir 300 MG 02/09/2021 12:00:00 AM EDT suspended Cefdinir 300 MG eCW1 ([facility]) cefdinir 300 MG Oral Capsule Cefdinir 300 MG Cefdinir 300 MG 02/09/2021 12:00:00 AM EDT suspended Cefdinir 300 MG eCW1 ([facility]) cefdinir 300 MG Oral Capsule Cefdinir 300 MG Cefdinir 300 MG 02/09/2021 12:00:00 AM EDT suspended Cefdinir 300 MG eCW1 ([facility]) cefdinir 300 MG Oral Capsule Cefdinir 300 MG Cefdinir 300 MG 02/09/2021 12:00:00 AM EDT suspended Cefdinir 300 MG eCW1 ([facility]) cefdinir 300 MG Oral Capsule Cefdinir 300 MG Cefdinir 300 MG 02/09/2021 12:00:00 AM EDT active Cefdinir 300 MG eCW1 ([facility]) cefdinir 300 MG Oral Capsule Cefdinir 300 MG Cefdinir 300 MG 02/09/2021 12:00:00 AM EDT suspended Cefdinir 300 MG eCW1 ([facility]) 300 mg 02/09/2021 12:00:00 AM EDT capsule 60 TAKE ONE CAPSULE BY MOUTH TWICE A DAY DIRECTED TAKE ONE CAPSULE BY MOUTH TWICE A DAY DIRECTED SOLD : 02/09/[address] cefdinir 300 MG Oral Capsule Cefdinir 300 MG Cefdinir 300 MG 02/09/2021 12:00:00 AM EDT active Cefdinir 300 MG eCW1 ([facility]) cefdinir 300 MG Oral Capsule Cefdinir 300 MG Cefdinir 300 MG 02/09/2021 12:00:00 AM EDT suspended Cefdinir 300 MG eCW1 ([facility]) cefdinir 300 MG Oral Capsule Cefdinir 300 MG Cefdinir 300 MG 02/09/2021 12:00:00 AM EDT active Cefdinir 300 MG eCW1 ([facility]) Cyclobenzaprine hydrochloride 10 MG Oral Tablet CYCLOBENZAPR [...] AM EDT active Cefdinir 300 MG eCW1 ([facility]) cefdinir 300 MG Oral Capsule Cefdinir 300 MG Cefdinir 300 MG 02/09/2021 12:00:00 AM EDT active Cefdinir 300 MG eCW1 ([facility]) cefdinir 300 MG Oral Capsule Cefdinir 300 MG Cefdinir 300 MG 02/09/2021 12:00:00 AM EDT suspended Cefdinir 300 MG eCW1 ([facility]) cefdinir 300 MG Oral Capsule Cefdinir 300 MG Cefdinir 300 MG 02/09/2021 12:00:00 AM EDT suspended Cefdinir 300 MG eCW1 ([facility]) cefdinir 300 MG Oral Capsule Cefdinir 300 MG Cefdinir 300 MG 02/09/2021 12:00:00 AM EDT active Cefdinir 300 MG eCW1 ([facility]) cefdinir 300 MG Oral Capsule Cefdinir 300 MG Cefdinir 300 MG 02/09/2021 12:00:00 AM EDT suspended Cefdinir 300 MG eCW1 ([facility]) Atropine Sulfate 0.025 MG / Diphenoxylat e [...] MAXIMUM DAILY DOSE = 2 SOLD: 02/09/2021 [facility] cefdinir 300 MG Oral Capsule Cefdinir 300 MG Cefdinir 300 MG 02/09/2021 12:00:00 AM EDT active Cefdinir 300 MG eCW1 [facility] [facility]) cefdinir 300 MG Oral Capsule Cefdinir 300 MG Cefdinir 300 MG 02/09/2021 12:00:00 AM EDT suspended Cefdinir 300 MG eCW1 ([facility]) krill oil 300 MG Oral Capsule Krill Oil 02/01/2021 12:00:00 AM EDT ORAL active [facility] ([facility]) Fluocinonide 0.5 MG/ML Topical Cream Fluocinonide 02/01/2021 12:00: 00 AM EDT active [facility] ([facility]) Simethicone 80 MG Chewable Tablet [Mi-Acid Gas Relief] KS-Ac id Gas Relief 02/01/2021 12:00:00 AM EDT ORAL active [facility] ([facility]) Atropine Sulfate 0.025 MG / Diphenoxylate Hydrochlorid e 2.5 MG Oral Tablet Diphenoxylate-Atropine 02/01/2021 12:00:00 AM EDT ORAL active [facility] ([facility]) Lutein 20 MG Oral Tablet Lutein 02/01/2021 12:00:00 AM EDT OR[facility] Cholecalciferol 5000 UNT Oral Tablet Vitamin D-3 02/01/2021 12:00:00 AM EDT ORAL active [facility] ([facility] Vitamin B Complex 02/01/2021 12:00:00 AM EDT ORAL active [facility] ([facility]) Vitamin B 12 0.1 MG Oral Tablet Vitamin B12 02/01/2021 12:00:00 AM EDT ORAL active [facility] ([facility]) Pimecrolimus 10 MG/ML Topical Cream Pimecrolimus 02/01/2021 12:00:00 AM EDT active [facility] ([facility] Fluocinolone Acetonide 0.1 MG/ML Topical Oil Fluocinolone Ac etonide Scalp 02/01/2021 12:00:00 AM EDT active [facility] ([facility]) Fluticasone Propionate/Salmeterol Fluticasone Propionate/Francisco Javier meterol 02/01/2021 12:00:00 AM EDT ORAL active M EDENT ([facility]) duloxetine 20 MG Delayed Release Oral Capsule Duloxetine HCL 02/01/2021 12:00:00 AM EDT ORAL active [facility] ([facility] Acyclovir 400 MG Oral Tablet Acyclovir 02/01/2021 12:00:00 AM EDT ORAL active [facility] ([facility]) Estradiol 0.1 MG/ML Vaginal Cream [Estrace] Estrace 01/09 12:00:00 AM EDT active MED[facility] ( [facility]) Estradiol 1 MG Oral Tablet Estradiol 02/01/2021 12:00:00 AM EDT ORAL active [facility] ([facility]) Ketotifen 0.25 MG/ML Ophthalmic Solution Ketotifen Fumarate 02/01/2021 12:00:00 AM EDT active [facility] ([facility] Triamcinolone Acetonide Triamcinolone Acetonide 02/01/2021 12:00:00 A M EDT RESPIRATORY active [facility] ( [facility]) Furosemide 40 MG Oral Tablet [Lasix] Lasix 02/01/2021 12:00:00 AM EDT active [facility] ([facility]) pantoprazole 40 MG Delayed Release Oral Tablet Pantoprazole Sodium 02/01/2021 12:00:00 AM EDT ORAL active M EDENT ([facility]) Cholestyramine Resin 66.7 MG/ML Oral Suspension Cholestyrami ne 02/01/2021 12:00:00 AM EDT active M EDENT ([facility]) 40 mg 01/25/2021 12:00:00 AM EDT tablet [...] activ e Atorvastatin Calcium 20 MG eCW1 ([facility]) Aspirin 81 MG Delayed Release Oral Tablet Aspirin 81 MG 01/05/2021 12:00:00 AM EDT 1.0 {tablet} active Aspirin 81 MG eCW1 ([facility]) Aspirin 81 MG Delayed Release Oral Tablet Aspirin 81 MG 01/05/2021 12:00:00 AM EDT 1.0 {tablet} active Aspirin 81 MG eCW1 ([facility]) Aspirin 81 MG Delayed Release Oral Tablet Aspirin 81 MG 01/05/2021 12:00:00 AM EDT 1.0 {tablet} active Aspirin 81 MG eCW1 ([facility]) Aspirin 81 MG Delayed Release Oral Tablet Aspirin 81 MG 01/05/2021 12:00:00 AM EDT 1.0 {tablet} active Aspirin 81 MG eCW1 ([facility]) atorvastatin 20 MG Oral Tablet Atorvastatin Calcium 20 MG Atorvastatin Calcium 20 MG 01/05/2021 12:00:00 AM EDT 1.0 {tablet} activ e Atorvastatin Calcium 20 MG eCW1 ([facility]) Aspirin 81 MG Delayed Release Oral Tablet Aspirin 81 MG 01/05/2021 12:00:00 AM EDT 1.0 {tablet} active Aspirin 81 MG eCW1 ([facility]) Aspirin 81 MG Delayed Release Oral Tablet Aspirin 81 MG 01/05/2021 12:00:00 AM EDT 1.0 {tablet} active Aspirin 81 MG eCW1 ([facility]) atorvastatin 20 MG Oral Tablet Atorvastatin Calcium 20 MG Atorvastatin Calcium 20 MG 01/05/2021 12:00:00 AM EDT 1.0 {tablet} activ e Atorvastatin Calcium 20 MG eCW1 ([facility]) Aspirin 81 MG Delayed Release Oral Tablet Aspirin 81 MG 01/05/2021 12:00:00 AM EDT 1.0 {tablet} active Aspirin 81 MG eCW1 ([facility]) Aspirin 81 MG Delayed Release Oral Tablet Aspirin 81 MG 01/05/2021 12:00:00 AM EDT 1.0 {tablet} active Aspirin 81 MG eCW1 ([facility]) Aspirin 81 MG Delayed Release Oral Tablet Aspirin 81 MG 01/05/2021 12:00:00 AM EDT 1.0 {tablet} active Aspirin 81 MG eCW1 ([facility]) 81 mg 01/05/2021 12:00:00 AM EDT tablet,delayed release (DR/EC) 30 TAKE ONE TABLET BY MOUTH EVERY DAY TAKE ONE TABLET BY MOUTH EVERY DAY SOLD: 02/03/2021 [facility] Aspirin 81 MG Delayed Release Oral Tablet Aspirin 81 MG 01/05/2021 12:00:00 AM EDT 1.0 {tablet} active Aspirin 81 MG eCW1 ([facility]) Aspirin 81 MG Delayed Release Oral Tablet Aspirin 81 MG 01/05/2021 12:00:00 AM EDT 1.0 {tablet} active Aspirin 81 MG eCW1 ([facility]) atorvastatin 20 MG Oral Tablet Atorvastatin Calcium 20 MG Atorvastatin Calcium 20 MG 01/05/2021 12:00:00 AM EDT 1.0 {tablet} activ e Atorvastatin Calcium 20 MG eCW1 ([facility]) Aspirin 81 MG Delayed Release Oral Tablet Aspirin 81 MG 01/05/2021 12:00:00 AM EDT 1.0 {tablet} active Aspirin 81 MG eCW1 ([facility]) atorvastatin 20 MG Oral Tablet Atorvastatin Calcium 20 MG Atorvastatin Calcium 20 MG 01/05/2021 12:00:00 AM EDT 1.0 {tablet} activ e Atorvastatin Calcium 20 MG eCW1 ([facility]) 81 mg 01/05/2021 12:00:00 AM EDT tablet,delayed release (DR/EC) 30 TAKE ONE TABLET BY MOUTH EVERY DAY TAKE ONE TABLET BY MOUTH EVERY DAY SOLD: 03/04/2021 [facility] atorvastatin 20 MG Oral Tablet Atorvastatin Calcium 20 MG Atorvastatin Calcium 20 MG 01/05/2021 12:00:00 AM EDT 1.0 {tablet} activ e Atorvastatin Calcium 20 MG eCW1 ([facility]) Aspirin 81 MG Delayed Release Oral Tablet Aspirin 81 MG 01/05/2021 12:00:00 AM EDT 1.0 {tablet} active Aspirin 81 MG eCW1 ([facility]) Aspirin 81 MG Delayed Release Oral Tablet Aspirin 81 MG 01/05/2021 12:00:00 AM EDT 1.0 {tablet} active Aspirin 81 MG eCW1 ([facility]) Aspirin 81 MG Delayed Release Oral Tablet Aspirin 81 MG 01/05/2021 12:00:00 AM EDT 1.0 {tablet} active Aspirin 81 MG eCW1 ([facility]) atorvastatin 20 MG Oral Tablet Atorvastatin Calcium 20 MG Atorvastatin Calcium 20 MG 01/05/2021 12:00:00 AM EDT 1.0 {tablet} activ e Atorvastatin Calcium 20 MG eCW1 ([facility]) Aspirin 81 MG Delayed Release Oral Tablet Aspirin 81 MG 01/05/2021 12:00:00 AM EDT 1.0 {tablet} active Aspirin 81 MG eCW1 ([facility]) 81 mg 01/05/2021 12:00:00 AM EDT tablet,delayed release (DR/EC) 30 TAKE ONE TABLET BY MOUTH EVERY DAY TAKE ONE TABLET BY MOUTH EVERY DAY SOLD: 03/25/2021 [facility] Aspirin 81 MG Delayed Release Oral Tablet Aspirin 81 MG 01/05/2021 12:00:00 AM EDT 1.0 {tablet} active Aspirin 81 MG eCW1 ([facility]) Aspirin 81 MG Delayed Release Oral Tablet Aspirin 81 MG 01/05/2021 12:00:00 AM EDT 1.0 {tablet} active Aspirin 81 MG eCW1 ([facility]) atorvastatin 20 MG Oral Tablet Atorvastatin Calcium 20 MG Atorvastatin Calcium 20 MG 01/05/2021 12:00:00 AM EDT 1.0 {tablet} activ e Atorvastatin Calcium 20 MG eCW1 ([facility]) 81 mg 01/05/2021 12:00:00 AM EDT tablet,delayed release (DR/EC) 30 TAKE ONE TABLET BY MOUTH EVERY DAY TAKE ONE TABLET BY MOUTH EVERY DAY SOLD: 04/29/2021 [facility] Simethicone 80 MG Chewable Tablet Simethicone 01/05/2021 12:00:00 AM E DT completed MEDENT ([facility], ) Aspirin 81 MG Delayed Release Oral Tablet Aspirin 81 MG 01/05/2021 12:00:00 AM EDT 1.0 {tablet} active Aspirin 81 MG eCW1 ([facility]) Aspirin 81 MG Delayed Release Oral Tablet Aspirin 81 MG 01/05/2021 12:00:00 AM EDT 1.0 {tablet} active Aspirin 81 MG eCW1 ([facility]) 0.01 % 01/05/2021 12:00:00 AM EDT solution 60 APPLY TWO TIMES A DAY FOR 14 DAYS APPLY TWO TIMES A DAY FOR 14 DAYS SOLD: 02/04/2021 [facility] Aspirin 81 MG Delayed Release Oral Tablet Aspirin 81 MG 01/05/2021 12:00:00 AM EDT 1.0 {tablet} active Aspirin 81 MG eCW1 ([facility]) atorvastatin 20 MG Oral Tablet Atorvastatin Calcium 20 MG Atorvastatin Calcium 20 MG 01/05/2021 12:00:00 AM EDT 1.0 {tablet} activ e Atorvastatin Calcium 20 MG eCW1 ([facility]) atorvastatin 20 MG Oral Tablet Atorvastatin Calcium 20 MG Atorvastatin Calcium 20 MG 01/05/2021 12:00:00 AM EDT 1.0 {tablet} activ e Atorvastatin Calcium 20 MG eCW1 ([facility]) atorvastatin 20 MG Oral Tablet Atorvastatin Calcium 20 MG Atorvastatin Calcium 20 MG 01/05/2021 12:00:00 AM EDT 1.0 {tablet} activ e Atorvastatin Calcium 20 MG eCW1 ([facility]) atorvastatin 20 MG Oral Tablet Atorvastatin Calcium 01/05/2021 1 2:00:00 AM EDT active MEDENT ( [facility]) atorvastatin 20 MG Oral Tablet Atorvastatin Calcium 20 MG Atorvastatin Calcium 20 MG 01/05/2021 12:00:00 AM EDT 1.0 {tablet} activ e Atorvastatin Calcium 20 MG eCW1 ([facility]) Aspirin 81 MG Delayed Release Oral Tablet Aspirin 01/05/2021 1 2:00:00 AM EDT active [facility] ([facility]) Aspirin 81 MG Delayed Release Oral Tablet Aspirin 81 MG 01/05/2021 12:00:00 AM EDT 1.0 {tablet} active Aspirin 81 MG eCW1 ([facility]) Aspirin 81 MG Delayed Release Oral Tablet Aspirin 81 MG 01/05/2021 12:00:00 AM EDT 1.0 {tablet} active Aspirin 81 MG eCW1 ([facility]) atorvastatin 20 MG Oral Tablet ATORVASTATIN CALCIUM [...] activ e Atorvastatin Calcium 20 MG eCW1 ([facility]) atorvastatin 20 MG Oral Tablet Atorvastatin Calcium 20 MG Atorvastatin Calcium 20 MG 01/05/2021 12:00:00 AM EDT 1.0 {tablet} activ e Atorvastatin Calcium 20 MG eCW1 ([facility]) atorvastatin 20 MG Oral Tablet Atorvastatin Calcium 20 MG Atorvastatin Calcium 20 MG 01/05/2021 12:00:00 AM EDT 1.0 {tablet} activ e Atorvastatin Calcium 20 MG eCW1 ([facility]) atorvastatin 20 MG Oral Tablet Atorvastatin Calcium 20 MG Atorvastatin Calcium 20 MG 01/05/2021 12:00:00 AM EDT 1.0 {tablet} activ e Atorvastatin Calcium 20 MG eCW1 ([facility]) Aspirin 81 MG Delayed Release Oral Tablet Aspirin 81 MG 01/05/2021 12:00:00 AM EDT 1.0 {tablet} active Aspirin 81 MG eCW1 ([facility]) atorvastatin 20 MG Oral Tablet Atorvastatin Calcium 20 MG Atorvastatin Calcium 20 MG 01/05/2021 12:00:00 AM EDT 1.0 {tablet} activ e Atorvastatin Calcium 20 MG eCW1 ([facility]) atorvastatin 20 MG Oral Tablet Atorvastatin Calcium 20 MG Atorvastatin Calcium 20 MG 01/05/2021 12:00:00 AM EDT 1.0 {tablet} activ e Atorvastatin Calcium 20 MG eCW1 ([facility]) atorvastatin 20 MG Oral Tablet Atorvastatin Calcium 20 MG Atorvastatin Calcium 20 MG 01/05/2021 12:00:00 AM EDT 1.0 {tablet} activ e Atorvastatin Calcium 20 MG eCW1 ([facility]) Aspirin 81 MG Delayed Release Oral Tablet Aspirin 81 MG 01/05/2021 12:00:00 AM EDT 1.0 {tablet} active Aspirin 81 MG eCW1 ([facility]) Aspirin 81 MG Delayed Release Oral Tablet Aspirin 81 MG 01/05/2021 12:00:00 AM EDT 1.0 {tablet} active Aspirin 81 MG eCW1 ([facility]) atorvastatin 20 MG Oral Tablet Atorvastatin Calcium 20 MG Atorvastatin Calcium 20 MG 01/05/2021 12:00:00 AM EDT 1.0 {tablet} activ e Atorvastatin Calcium 20 MG eCW1 ([facility]) Aspirin 81 MG Delayed Release Oral Tablet Aspirin 81 MG 01/05/2021 12:00:00 AM EDT 1.0 {tablet} active Aspirin 81 MG eCW1 ([facility]) atorvastatin 20 MG Oral Tablet ATORVASTATIN CALCIUM 01/05/2021 1 2:00:00 AM EDT tablet 90 TAKE ONE TABLET BY MOUTH EVERY D AY TAKE ONE TABLET BY MOUTH EVERY DAY SOLD: 01/05/2021 [facility] Aspirin 81 MG Delayed Release Oral Tablet Aspirin 81 MG 01/05/2021 12:00:00 AM EDT 1.0 {tablet} active eCW1 ([facility]) Aspirin 81 MG Delayed Release Oral Tablet Aspirin 81 MG 01/05/2021 12:00:00 AM EDT 1.0 {tablet} active Aspirin 81 MG eCW1 ([facility]) atorvastatin 20 MG Oral Tablet Atorvastatin Calcium 20 MG Atorvastatin Calcium 20 MG 01/05/2021 12:00:00 AM EDT 1.0 {tablet} activ e Atorvastatin Calcium 20 MG eCW1 ([facility]) Aspirin 81 MG Delayed Release Oral Tablet Aspirin 81 MG 01/05/2021 12:00:00 AM EDT 1.0 {tablet} active Aspirin 81 MG eCW1 ([facility]) Aspirin 81 MG Delayed Release Oral Tablet Aspirin 81 MG 01/05/2021 12:00:00 AM EDT 1.0 {tablet} active Aspirin 81 MG eCW1 ([facility]) Aspirin 81 MG Delayed Release Oral Tablet Aspirin 81 MG 01/05/2021 12:00:00 AM EDT 1.0 {tablet} active Aspirin 81 MG eCW1 ([facility]) Aspirin 81 MG Delayed Release Oral Tablet Aspirin 81 MG 01/05/2021 12:00:00 AM EDT 1.0 {tablet} active Aspirin 81 MG eCW1 ([facility]) atorvastatin 20 MG Oral Tablet Atorvastatin Calcium 20 MG Atorvastatin Calcium 20 MG 01/05/2021 12:00:00 AM EDT 1.0 {tablet} activ e Atorvastatin Calcium 20 MG eCW1 ([facility]) atorvastatin 20 MG Oral Tablet Atorvastatin Calcium 20 MG Atorvastatin Calcium 20 MG 01/05/2021 12:00:00 AM EDT 1.0 {tablet} activ e Atorvastatin Calcium 20 MG eCW1 ([facility]) 81 mg 01/05/2021 12:00:00 AM EDT tablet,delayed release (DR/EC) 30 TAKE ONE TABLET BY MOUTH EVERY DAY TAKE ONE TABLET BY MOUTH EVERY DAY SOLD: 01/05/2021 [facility] Aspirin 81 MG Delayed Release Oral Tablet Aspirin 81 MG 01/05/2021 12:00:00 AM EDT 1.0 {tablet} active Aspirin 81 MG eCW1 ([facility]) atorvastatin 20 MG Oral Tablet Atorvastatin Calcium 20 MG Atorvastatin Calcium 20 MG 01/05/2021 12:00:00 AM EDT 1.0 {tablet} activ e Atorvastatin Calcium 20 MG eCW1 ([facility]) Aspirin 81 MG Delayed Release Oral Tablet Aspirin 81 MG 01/05/2021 12:00:00 AM EDT 1.0 {tablet} active Aspirin 81 MG eCW1 ([facility]) Aspirin 81 MG Delayed Release Oral Tablet Aspirin 81 MG 01/05/2021 12:00:00 AM EDT 1.0 {tablet} active Aspirin 81 MG eCW1 ([facility]) atorvastatin 20 MG Oral Tablet Atorvastatin Calcium 20 MG Atorvastatin Calcium 20 MG 01/05/2021 12:00:00 AM EDT 1.0 {tablet} activ e Atorvastatin Calcium 20 MG eCW1 ([facility]) Aspirin 81 MG Delayed Release Oral Tablet Aspirin 81 MG 01/05/2021 12:00:00 AM EDT 1.0 {tablet} active Aspirin 81 MG eCW1 ([facility]) Aspirin 81 MG Delayed Release Oral Tablet Aspirin 81 MG 01/05/2021 12:00:00 AM EDT 1.0 {tablet} active Aspirin 81 MG eCW1 ([facility]) 81 mg 01/05/2021 12:00:00 AM EDT tablet,delayed release (DR/EC) 30 TAKE ONE TABLET BY MOUTH EVERY DAY TAKE ONE TABLET BY MOUTH EVERY DAY SOLD: 06/09/2021 [facility] Aspirin 81 MG Delayed Release Oral Tablet Aspirin 81 MG 01/05/2021 12:00:00 AM EDT 1.0 {tablet} active Aspirin 81 MG eCW1 ([facility]) atorvastatin 20 MG Oral Tablet Atorvastatin Calcium 20 MG Atorvastatin Calcium 20 MG 01/05/2021 12:00:00 AM EDT 1.0 {tablet} activ e Atorvastatin Calcium 20 MG eCW1 ([facility]) Aspirin 81 MG Delayed Release Oral Tablet Aspirin 81 MG 01/05/2021 12:00:00 AM EDT 1.0 {tablet} active Aspirin 81 MG eCW1 ([facility]) Aspirin 81 MG Delayed Release Oral Tablet Aspirin 81 MG 01/05/2021 12:00:00 AM EDT 1.0 {tablet} active Aspirin 81 MG eCW1 ([facility]) atorvastatin 20 MG Oral Tablet Atorvastatin Calcium 20 MG Atorvastatin Calcium 20 MG 01/05/2021 12:00:00 AM EDT 1.0 {tablet} activ e Atorvastatin Calcium 20 MG eCW1 ([facility]) Aspirin 81 MG Delayed Release Oral Tablet Aspirin 81 MG 01/05/2021 12:00:00 AM EDT 1.0 {tablet} active Aspirin 81 MG eCW1 ([facility]) atorvastatin 20 MG Oral Tablet Atorvastatin Calcium 20 MG Atorvastatin Calcium 20 MG 01/05/2021 12:00:00 AM EDT 1.0 {tablet} activ e Atorvastatin Calcium 20 MG eCW1 ([facility]) Aspirin 81 MG Delayed Release Oral Tablet Aspirin 81 MG 01/05/2021 12:00:00 AM EDT 1.0 {tablet} active Aspirin 81 MG eCW1 ([facility]) atorvastatin 20 MG Oral Tablet Atorvastatin Calcium 20 MG Atorvastatin Calcium 20 MG 01/05/2021 12:00:00 AM EDT 1.0 {tablet} activ e Atorvastatin Calcium 20 MG eCW1 ([facility]) atorvastatin 20 MG Oral Tablet Atorvastatin Calcium 20 MG Atorvastatin Calcium 20 MG 01/05/2021 12:00:00 AM EDT 1.0 {tablet} activ e Atorvastatin Calcium 20 MG eCW1 ([facility]) atorvastatin 20 MG Oral Tablet Atorvastatin Calcium 20 MG Atorvastatin Calcium 20 MG 01/05/2021 12:00:00 AM EDT 1.0 {tablet} activ e Atorvastatin Calcium 20 MG eCW1 ([facility]) atorvastatin 20 MG Oral Tablet Atorvastatin Calcium 20 MG Atorvastatin Calcium 20 MG 01/05/2021 12:00:00 AM EDT 1.0 {tablet} activ e Atorvastatin Calcium 20 MG eCW1 ([facility]) atorvastatin 20 MG Oral Tablet Atorvastatin Calcium 20 MG Atorvastatin Calcium 20 MG 01/05/2021 12:00:00 AM EDT 1.0 {tablet} activ e Atorvastatin Calcium 20 MG eCW1 ([facility]) Aspirin 81 MG Delayed Release Oral Tablet Aspirin 81 MG 01/05/2021 12:00:00 AM EDT 1.0 {tablet} active Aspirin 81 MG eCW1 ([facility]) atorvastatin 20 MG Oral Tablet Atorvastatin Calcium 20 MG Atorvastatin Calcium 20 MG 01/05/2021 12:00:00 AM EDT 1.0 {tablet} activ e Atorvastatin Calcium 20 MG eCW1 ([facility]) atorvastatin 20 MG Oral Tablet Atorvastatin Calcium 20 MG Atorvastatin Calcium 20 MG 01/05/2021 12:00:00 AM EDT 1.0 {tablet} activ e Atorvastatin Calcium 20 MG eCW1 ([facility]) 0.01 % 01/05/2021 12:00:00 AM EDT solution 60 APPLY TWO TIMES A DAY FOR 14 DAYS APPLY TWO TIMES A DAY FOR 14 DAYS SOLD: 01/06/2021 [facility] Aspirin 81 MG Delayed Release Oral Tablet Aspirin 81 MG 01/05/2021 12:00:00 AM EDT 1.0 {tablet} active Aspirin 81 MG eCW1 ([facility]) atorvastatin 20 MG Oral Tablet Atorvastatin Calcium 20 MG Atorvastatin Calcium 20 MG 01/05/2021 12:00:00 AM EDT 1.0 {tablet} activ e Atorvastatin Calcium 20 MG eCW1 ([facility]) 1 % 01/05/2021 12:00:00 AM EDT cream 30 APPLY TOPICALLY TO FULL FACE EVERY MORNING APPLY TOPICALLY TO FULL FACE EVERY MORNING SOLD: 01/05/2021 [employer] atorvastatin 20 MG Oral Tablet Atorvastatin Calcium 20 MG Atorvastatin Calcium 20 MG 01/05/2021 12:00:00 AM EDT 1.0 {tablet} activ e Atorvastatin Calcium 20 MG eCW1 ([facility]) Aspirin 81 MG Delayed Release Oral Tablet Aspirin 81 MG 01/05/2021 12:00:00 AM EDT 1.0 {tablet} active Aspirin 81 MG eCW1 ([facility]) Aspirin 81 MG Delayed Release Oral Tablet Aspirin 81 MG 01/05/2021 12:00:00 AM EDT 1.0 {tablet} active Aspirin 81 MG eCW1 ([facility]) Aspirin 81 MG Delayed Release Oral Tablet Aspirin 81 MG 01/05/2021 12:00:00 AM EDT 1.0 {tablet} active Aspirin 81 MG eCW1 ([facility]) Aspirin 81 MG Delayed Release Oral Tablet Aspirin 81 MG 01/05/2021 12:00:00 AM EDT 1.0 {tablet} active Aspirin 81 MG eCW1 ([facility]) atorvastatin 20 MG Oral Tablet Atorvastatin Calcium 20 MG Atorvastatin Calcium 20 MG 01/05/2021 12:00:00 AM EDT 1.0 {tablet} activ e Atorvastatin Calcium 20 MG eCW1 ([facility]) Aspirin 81 MG Delayed Release Oral Tablet Aspirin 81 MG 01/05/2021 12:00:00 AM EDT 1.0 {tablet} active Aspirin 81 MG eCW1 ([facility]) atorvastatin 20 MG Oral Tablet Atorvastatin Calcium 20 MG Atorvastatin Calcium 20 MG 01/05/2021 12:00:00 AM EDT 1.0 {tablet} activ e Atorvastatin Calcium 20 MG eCW1 ([facility]) atorvastatin 20 MG Oral Tablet Atorvastatin Calcium 20 MG Atorvastatin Calcium 20 MG 01/05/2021 12:00:00 AM EDT 1.0 {tablet} activ e Atorvastatin Calcium 20 MG eCW1 ([facility]) Aspirin 81 MG Delayed Release Oral Tablet Aspirin 81 MG 01/05/2021 12:00:00 AM EDT 1.0 {tablet} active Aspirin 81 MG eCW1 ([facility]) atorvastatin 20 MG Oral Tablet Atorvastatin Calcium 20 MG Atorvastatin Calcium 20 MG 01/05/2021 12:00:00 AM EDT 1.0 {tablet} activ e Atorvastatin Calcium 20 MG eCW1 ([facility]) atorvastatin 20 MG Oral Tablet Atorvastatin Calcium 20 MG Atorvastatin Calcium 20 MG 01/05/2021 12:00:00 AM EDT 1.0 {tablet} activ e Atorvastatin Calcium 20 MG eCW1 ([facility]) 0.01 % (0.1 mg/gram) 01/04/2021 12:00:00 AM [...] active Fluocinolone Acetonide 0. 01 % eCW1 ([facility]) Fluocinolone Acetonide 0.1 MG/ML Topical Solution Fluo cinolone Acetonide 0.01 % Fluocinolone Acetonide 0.01 % 01/04/2021 12:00:00 AM EDT 1.0 {appli cation} active Fluocinolone Acetonide 0. 01 % eCW1 ([facility]) Fluocinolone Acetonide 0.1 MG/ML Topical Solution Fluo cinolone Acetonide 0.01 % Fluocinolone Acetonide 0.01 % 01/04/2021 12:00:00 AM EDT 1.0 {appli cation} active Fluocinolone Acetonide 0. 01 % eCW1 ([facility]) Fluocinolone Acetonide 0.1 MG/ML Topical Solution Fluo cinolone Acetonide 0.01 % Fluocinolone Acetonide 0.01 % 01/04/2021 12:00:00 AM EDT 1.0 {appli cation} active Fluocinolone Acetonide 0. 01 % eCW1 ([facility]) Fluocinolone Acetonide 0.1 MG/ML Topical Solution Fluo cinolone Acetonide 0.01 % Fluocinolone Acetonide 0.01 % 01/04/2021 12:00:00 AM EDT 1.0 {appli cation} active Fluocinolone Acetonide 0. 01 % eCW1 ([facility]) Fluocinolone Acetonide 0.1 MG/ML Topical Solution Fluo cinolone Acetonide 0.01 % Fluocinolone Acetonide 0.01 % 01/04/2021 12:00:00 AM EDT 1.0 {appli cation} active Fluocinolone Acetonide 0. 01 % eCW1 ([facility]) Fluocinolone Acetonide 0.1 MG/ML Topical Solution Fluo cinolone Acetonide 0.01 % Fluocinolone Acetonide 0.01 % 01/04/2021 12:00:00 AM EDT 1.0 {appli cation} active Fluocinolone Acetonide 0. 01 % eCW1 ([facility]) Fluocinolone Acetonide 0.1 MG/ML Topical Solution Fluo cinolone Acetonide 0.01 % Fluocinolone Acetonide 0.01 % 01/04/2021 12:00:00 AM EDT 1.0 {appli cation} active Fluocinolone Acetonide 0. 01 % eCW1 ([facility]) Fluocinolone Acetonide 0.1 MG/ML Topical Solution Fluo cinolone Acetonide 0.01 % Fluocinolone Acetonide 0.01 % 01/04/2021 12:00:00 AM EDT 1.0 {appli cation} active Fluocinolone Acetonide 0. 01 % eCW1 ([facility]) Fluocinolone Acetonide 0.1 MG/ML Topical Solution Fluo cinolone Acetonide 0.01 % Fluocinolone Acetonide 0.01 % 01/04/2021 12:00:00 AM EDT 1.0 {appli cation} active Fluocinolone Acetonide 0. 01 % eCW1 ([facility]) Fluocinolone Acetonide 0.1 MG/ML Topical Solution Fluo cinolone Acetonide 0.01 % Fluocinolone Acetonide 0.01 % 01/04/2021 12:00:00 AM EDT 1.0 {appli cation} active Fluocinolone Acetonide 0. 01 % eCW1 ([facility]) Fluocinolone Acetonide 0.1 MG/ML Topical Solution Fluo cinolone Acetonide 0.01 % Fluocinolone Acetonide 0.01 % 01/04/2021 12:00:00 AM EDT 1.0 {appli cation} active Fluocinolone Acetonide 0. 01 % eCW1 ([facility]) Fluocinolone Acetonide 0.1 MG/ML Topical Solution Fluo cinolone Acetonide 0.01 % Fluocinolone Acetonide 0.01 % 01/04/2021 12:00:00 AM EDT 1.0 {appli cation} active Fluocinolone Acetonide 0. 01 % eCW1 ([facility]) Fluocinolone Acetonide 0.1 MG/ML Topical Solution Fluo cinolone Acetonide 0.01 % Fluocinolone Acetonide 0.01 % 01/04/2021 12:00:00 AM EDT 1.0 {appli cation} active Fluocinolone Acetonide 0. 01 % eCW1 ([facility]) Fluocinolone Acetonide 0.1 MG/ML Topical Solution Fluo cinolone Acetonide 0.01 % Fluocinolone Acetonide 0.01 % 01/04/2021 12:00:00 AM EDT 1.0 {appli cation} active Fluocinolone Acetonide 0. 01 % eCW1 ([facility]) Fluocinolone Acetonide 0.1 MG/ML Topical Solution Fluo cinolone Acetonide 0.01 % Fluocinolone Acetonide 0.01 % 01/04/2021 12:00:00 AM EDT 1.0 {appli cation} active Fluocinolone Acetonide 0. 01 % eCW1 ([facility]) Fluocinolone Acetonide 0.1 MG/ML Topical Solution Fluo cinolone Acetonide 0.01 % Fluocinolone Acetonide 0.01 % 01/04/2021 12:00:00 AM EDT 1.0 {appli cation} active Fluocinolone Acetonide 0. 01 % eCW1 ([facility]) Pimecrolimus 10 MG/ML Topical Cream [Elidel] Elidel 1 % Elid el 1 % 12/29/2020 12:00:00 AM EDT 1.0 {application} suspended Elidel 1 % eCW1 ([facility]) azelaic acid 200 MG/ML Topical Cream [Azelex] Azelex 20 % Az elex 20 % 12/29/2020 12:00:00 AM EDT 1.0 {application} suspended Azelex 20 % eCW1 ([facility]) azelaic acid 200 MG/ML Topical Cream [Azelex] Azelex 20 % Az elex 20 % 12/29/2020 12:00:00 AM EDT 1.0 {application} active Azelex 20 % eCW1 ([facility]) Fluocinonide 0.5 MG/ML Topical Solution Fluocinonide 0.05 % Fluocinonide 0.05 % 12/29/2020 12:00:00 AM EDT 1.0 {application} act julia Fluocinonide 0.05 % eCW1 ([facility]) Pimecrolimus 10 MG/ML Topical Cream [Elidel] Elidel 1 % Elid el 1 % 12/29/2020 12:00:00 AM EDT 1.0 {application} suspended Elidel 1 % eCW1 ([facility]) Fluocinonide 0.5 MG/ML Topical Solution Fluocinonide 0.05 % Fluocinonide 0.05 % 12/29/2020 12:00:00 AM EDT 1.0 {application} act julia Fluocinonide 0.05 % eCW1 ([facility]) azelaic acid 200 MG/ML Topical Cream [Azelex] Azelex 20 % Az elex 20 % 12/29/2020 12:00:00 AM EDT 1.0 {application} active Azelex 20 % eCW1 ([facility]) Pimecrolimus 10 MG/ML Topical Cream [Elidel] Elidel 1 % Elid el 1 % 12/29/2020 12:00:00 AM EDT 1.0 {application} active Elidel 1 % eCW1 ([facility]) Fluocinonide 0.5 MG/ML Topical Solution Fluocinonide 0.05 % Fluocinonide 0.05 % 12/29/2020 12:00:00 AM EDT 1.0 {application} act julia Fluocinonide 0.05 % eCW1 ([facility]) azelaic acid 200 MG/ML Topical Cream [Azelex] Azelex 20 % Az elex 20 % 12/29/2020 12:00:00 AM EDT 1.0 {application} suspended Azelex 20 % eCW1 ([facility]) azelaic acid 200 MG/ML Topical Cream [Azelex] Azelex 20 % Az elex 20 % 12/29/2020 12:00:00 AM EDT 1.0 {application} active Azelex 20 % eCW1 ([facility]) Fluocinonide 0.5 MG/ML Topical Solution Fluocinonide 0.05 % Fluocinonide 0.05 % 12/29/2020 12:00:00 AM EDT 1.0 {application} act julia Fluocinonide 0.05 % eCW1 ([facility]) azelaic acid 200 MG/ML Topical Cream [Azelex] Azelex 20 % Az elex 20 % 12/29/2020 12:00:00 AM EDT 1.0 {application} suspended Azelex 20 % eCW1 ([facility]) Pimecrolimus 10 MG/ML Topical Cream [Elidel] Elidel 1 % Elid el 1 % 12/29/2020 12:00:00 AM EDT 1.0 {application} suspended Elidel 1 % eCW1 ([facility]) Fluocinonide 0.5 MG/ML Topical Solution Fluocinonide 0.05 % Fluocinonide 0.05 % 12/29/2020 12:00:00 AM EDT 1.0 {application} act julia Fluocinonide 0.05 % eCW1 ([facility]) azelaic acid 200 MG/ML Topical Cream [Azelex] Azelex 20 % Az elex 20 % 12/29/2020 12:00:00 AM EDT 1.0 {application} suspended Azelex 20 % eCW1 ([facility]) azelaic acid 200 MG/ML Topical Cream [Azelex] Azelex 20 % Az elex 20 % 12/29/2020 12:00:00 AM EDT 1.0 {application} active Azelex 20 % eCW1 ([facility]) Pimecrolimus 10 MG/ML Topical Cream [Elidel] Elidel 1 % Elid el 1 % 12/29/2020 12:00:00 AM EDT 1.0 {application} suspended Elidel 1 % eCW1 ([facility]) Pimecrolimus 10 MG/ML Topical Cream [Elidel] Elidel 1 % Elid el 1 % 12/29/2020 12:00:00 AM EDT 1.0 {application} active Elidel 1 % eCW1 ([facility]) Pimecrolimus 10 MG/ML Topical Cream [Elidel] Elidel 1 % Elid el 1 % 12/29/2020 12:00:00 AM EDT 1.0 {application} active Elidel 1 % eCW1 ([facility]) azelaic acid 200 MG/ML Topical Cream [Azelex] Azelex 20 % Az elex 20 % 12/29/2020 12:00:00 AM EDT 1.0 {application} active Azelex 20 % eCW1 ([facility]) azelaic acid 200 MG/ML Topical Cream [Azelex] Azelex 20 % Az elex 20 % 12/29/2020 12:00:00 AM EDT 1.0 {application} active Azelex 20 % eCW1 ([facility]) Pimecrolimus 10 MG/ML Topical Cream [Elidel] Elidel 1 % Elid el 1 % 12/29/2020 12:00:00 AM EDT 1.0 {application} active Elidel 1 % eCW1 ([facility]) Fluocinonide 0.5 MG/ML Topical Solution Fluocinonide 0.05 % Fluocinonide 0.05 % 12/29/2020 12:00:00 AM EDT 1.0 {application} act julia Fluocinonide 0.05 % eCW1 ([facility]) Pimecrolimus 10 MG/ML Topical Cream [Elidel] Elidel 1 % Elid el 1 % 12/29/2020 12:00:00 AM EDT 1.0 {application} active Elidel 1 % eCW1 ([facility]) azelaic acid 200 MG/ML Topical Cream [Azelex] Azelex 20 % Az elex 20 % 12/29/2020 12:00:00 AM EDT 1.0 {application} suspended Azelex 20 % eCW1 ([facility]) Pimecrolimus 10 MG/ML Topical Cream [Elidel] Elidel 1 % Elid el 1 % 12/29/2020 12:00:00 AM EDT 1.0 {application} suspended Elidel 1 % eCW1 ([facility]) azelaic acid 200 MG/ML Topical Cream [Azelex] Azelex 20 % Az elex 20 % 12/29/2020 12:00:00 AM EDT 1.0 {application} active Azelex 20 % eCW1 ([facility]) Pimecrolimus 10 MG/ML Topical Cream [Elidel] Elidel 1 % Elid el 1 % 12/29/2020 12:00:00 AM EDT 1.0 {application} active Elidel 1 % eCW1 ([facility]) Fluocinonide 0.5 MG/ML Topical Solution Fluocinonide 0.05 % Fluocinonide 0.05 % 12/29/2020 12:00:00 AM EDT 1.0 {application} act julia Fluocinonide 0.05 % eCW1 ([facility]) azelaic acid 200 MG/ML Topical Cream [Azelex] Azelex 20 % Az elex 20 % 12/29/2020 12:00:00 AM EDT 1.0 {application} active Azelex 20 % eCW1 ([facility]) azelaic acid 200 MG/ML Topical Cream [Azelex] Azelex 20 % Az elex 20 % 12/29/2020 12:00:00 AM EDT 1.0 {application} suspended Azelex 20 % eCW1 ([facility]) Pimecrolimus 10 MG/ML Topical Cream [Elidel] Elidel 1 % Elid el 1 % 12/29/2020 12:00:00 AM EDT 1.0 {application} active Elidel 1 % eCW1 ([facility]) Pimecrolimus 10 MG/ML Topical Cream [Elidel] Elidel 1 % Elid el 1 % 12/29/2020 12:00:00 AM EDT 1.0 {application} suspended Elidel 1 % eCW1 ([facility]) 0.05 % 12/29/2020 12:00:00 AM EDT solution [...] {application} act julia Fluocinonide 0.05 % eCW1 ([facility]) Pimecrolimus 10 MG/ML Topical Cream [Elidel] Elidel 1 % Elid el 1 % 12/29/2020 12:00:00 AM EDT 1.0 {application} suspended Elidel 1 % eCW1 ([facility]) azelaic acid 200 MG/ML Topical Cream [Azelex] Azelex 20 % Az elex 20 % 12/29/2020 12:00:00 AM EDT 1.0 {application} active Azelex 20 % eCW1 ([facility]) azelaic acid 200 MG/ML Topical Cream [Azelex] Azelex 20 % Az elex 20 % 12/29/2020 12:00:00 AM EDT 1.0 {application} active Azelex 20 % eCW1 ([facility]) Pimecrolimus 10 MG/ML Topical Cream [Elidel] Elidel 1 % Elid el 1 % 12/29/2020 12:00:00 AM EDT 1.0 {application} active Elidel 1 % eCW1 ([facility]) azelaic acid 200 MG/ML Topical Cream [Azelex] Azelex 20 % Az elex 20 % 12/29/2020 12:00:00 AM EDT 1.0 {application} active Azelex 20 % eCW1 ([facility]) azelaic acid 200 MG/ML Topical Cream [Azelex] Azelex 20 % Az elex 20 % 12/29/2020 12:00:00 AM EDT 1.0 {application} suspended Azelex 20 % eCW1 ([facility]) azelaic acid 200 MG/ML Topical Cream [Azelex] Azelex 20 % Az elex 20 % 12/29/2020 12:00:00 AM EDT 1.0 {application} suspended Azelex 20 % eCW1 ([facility]) azelaic acid 200 MG/ML Topical Cream [Azelex] Azelex 20 % Az elex 20 % 12/29/2020 12:00:00 AM EDT 1.0 {application} active Azelex 20 % eCW1 ([facility]) Pimecrolimus 10 MG/ML Topical Cream [Elidel] Elidel 1 % Elid el 1 % 12/29/2020 12:00:00 AM EDT 1.0 {application} suspended Elidel 1 % eCW1 ([facility]) Pimecrolimus 10 MG/ML Topical Cream [Elidel] Elidel 1 % Elid el 1 % 12/29/2020 12:00:00 AM EDT 1.0 {application} active Elidel 1 % eCW1 ([facility]) Fluocinonide 0.5 MG/ML Topical Solution Fluocinonide 0.05 % Fluocinonide 0.05 % 12/29/2020 12:00:00 AM EDT 1.0 {application} act julia Fluocinonide 0.05 % eCW1 ([facility]) Pimecrolimus 10 MG/ML Topical Cream [Elidel] Elidel 1 % Elid el 1 % 12/29/2020 12:00:00 AM EDT 1.0 {application} active Elidel 1 % eCW1 ([facility]) Fluocinonide 0.5 MG/ML Topical Solution Fluocinonide 0.05 % Fluocinonide 0.05 % 12/29/2020 12:00:00 AM EDT 1.0 {application} act julia Fluocinonide 0.05 % eCW1 ([facility]) Pimecrolimus 10 MG/ML Topical Cream [Elidel] Elidel 1 % Elid el 1 % 12/29/2020 12:00:00 AM EDT 1.0 {application} active Elidel 1 % eCW1 ([facility]) Pimecrolimus 10 MG/ML Topical Cream [Elidel] Elidel 1 % Elid el 1 % 12/29/2020 12:00:00 AM EDT 1.0 {application} suspended Elidel 1 % eCW1 ([facility]) azelaic acid 200 MG/ML Topical Cream [Azelex] Azelex 20 % Az elex 20 % 12/29/2020 12:00:00 AM EDT 1.0 {application} suspended Azelex 20 % eCW1 ([facility]) Fluocinonide 0.5 MG/ML Topical Solution Fluocinonide 0.05 % Fluocinonide 0.05 % 12/29/2020 12:00:00 AM EDT 1.0 {application} act julia Fluocinonide 0.05 % eCW1 ([facility]) Fluocinonide 0.5 MG/ML Topical Solution Fluocinonide 0.05 % Fluocinonide 0.05 % 12/29/2020 12:00:00 AM EDT 1.0 {application} act julia Fluocinonide 0.05 % eCW1 ([facility]) azelaic acid 200 MG/ML Topical Cream [Azelex] Azelex 20 % Az elex 20 % 12/29/2020 12:00:00 AM EDT 1.0 {application} suspended Azelex 20 % eCW1 ([facility]) Fluocinonide 0.5 MG/ML Topical Solution Fluocinonide 0.05 % Fluocinonide 0.05 % 12/29/2020 12:00:00 AM EDT 1.0 {application} act julia Fluocinonide 0.05 % eCW1 ([facility]) Fluocinonide 0.5 MG/ML Topical Solution Fluocinonide 0.05 % Fluocinonide 0.05 % 12/29/2020 12:00:00 AM EDT 1.0 {application} act julia Fluocinonide 0.05 % eCW1 ([facility]) 0.05 % 12/29/2020 12:00:00 AM EDT solution [...] {application} act julia Fluocinonide 0.05 % eCW1 ([facility]) azelaic acid 200 MG/ML Topical Cream [Azelex] Azelex 20 % Az elex 20 % 12/29/2020 12:00:00 AM EDT 1.0 {application} suspended Azelex 20 % eCW1 ([facility]) Fluocinonide 0.5 MG/ML Topical Solution Fluocinonide 0.05 % Fluocinonide 0.05 % 12/29/2020 12:00:00 AM EDT 1.0 {application} act julai Fluocinonide 0.05 % eCW1 ([facility]) azelaic acid 200 MG/ML Topical Cream [Azelex] Azelex 20 % Az elex 20 % 12/29/2020 12:00:00 AM EDT 1.0 {application} active Azelex 20 % eCW1 ([facility]) azelaic acid 200 MG/ML Topical Cream [Azelex] Azelex 20 % Az elex 20 % 12/29/2020 12:00:00 AM EDT 1.0 {application} suspended Azelex 20 % eCW1 ([facility]) Pimecrolimus 10 MG/ML Topical Cream [Elidel] Elidel 1 % Elid el 1 % 12/29/2020 12:00:00 AM EDT 1.0 {application} active Elidel 1 % eCW1 ([facility]) azelaic acid 200 MG/ML Topical Cream [Azelex] Azelex 20 % Az elex 20 % 12/29/2020 12:00:00 AM EDT 1.0 {application} suspended Azelex 20 % eCW1 ([facility]) azelaic acid 200 MG/ML Topical Cream [Azelex] Azelex 20 % Az elex 20 % 12/29/2020 12:00:00 AM EDT 1.0 {application} active Azelex 20 % eCW1 ([facility]) Pimecrolimus 10 MG/ML Topical Cream [Elidel] Elidel 1 % Elid el 1 % 12/29/2020 12:00:00 AM EDT 1.0 {application} active Elidel 1 % eCW1 ([facility]) azelaic acid 200 MG/ML Topical Cream [Azelex] Azelex 20 % Az elex 20 % 12/29/2020 12:00:00 AM EDT 1.0 {application} suspended Azelex 20 % eCW1 ([facility]) Pimecrolimus 10 MG/ML Topical Cream [Elidel] Elidel 1 % Elid el 1 % 12/29/2020 12:00:00 AM EDT 1.0 {application} suspended Elidel 1 % eCW1 ([facility]) Pimecrolimus 10 MG/ML Topical Cream [Elidel] Elidel 1 % Elid el 1 % 12/29/2020 12:00:00 AM EDT 1.0 {application} active Elidel 1 % eCW1 ([facility]) Pimecrolimus 10 MG/ML Topical Cream [Elidel] Elidel 1 % Elid el 1 % 12/29/2020 12:00:00 AM EDT 1.0 {application} suspended Elidel 1 % eCW1 ([facility]) Pimecrolimus 10 MG/ML Topical Cream [Elidel] Elidel 1 % Elid el 1 % 12/29/2020 12:00:00 AM EDT 1.0 {application} active Elidel 1 % eCW1 ([facility]) azelaic acid 200 MG/ML Topical Cream [Azelex] Azelex 20 % Az elex 20 % 12/29/2020 12:00:00 AM EDT 1.0 {application} active Azelex 20 % eCW1 ([facility]) Fluocinonide 0.5 MG/ML Topical Solution Fluocinonide 0.05 % Fluocinonide 0.05 % 12/29/2020 12:00:00 AM EDT 1.0 {application} act julia Fluocinonide 0.05 % eCW1 ([facility]) Pimecrolimus 10 MG/ML Topical Cream [Elidel] Elidel 1 % Elid el 1 % 12/29/2020 12:00:00 AM EDT 1.0 {application} suspended Elidel 1 % eCW1 ([facility]) azelaic acid 200 MG/ML Topical Cream [Azelex] Azelex 20 % Az elex 20 % 12/29/2020 12:00:00 AM EDT 1.0 {application} active Azelex 20 % eCW1 ([facility]) azelaic acid 200 MG/ML Topical Cream [Azelex] Azelex 20 % Az elex 20 % 12/29/2020 12:00:00 AM EDT 1.0 {application} active Azelex 20 % eCW1 ([facility]) Fluocinonide 0.5 MG/ML Topical Solution Fluocinonide 0.05 % Fluocinonide 0.05 % 12/29/2020 12:00:00 AM EDT 1.0 {application} act julia Fluocinonide 0.05 % eCW1 ([facility]) Pimecrolimus 10 MG/ML Topical Cream [Elidel] Elidel 1 % Elid el 1 % 12/29/2020 12:00:00 AM EDT 1.0 {application} active Elidel 1 % eCW1 ([facility]) Pimecrolimus 10 MG/ML Topical Cream [Elidel] Elidel 1 % Elid el 1 % 12/29/2020 12:00:00 AM EDT 1.0 {application} suspended Elidel 1 % eCW1 ([facility]) azelaic acid 200 MG/ML Topical Cream [Azelex] Azelex 20 % Az elex 20 % 12/29/2020 12:00:00 AM EDT 1.0 {application} suspended Azelex 20 % eCW1 ([facility]) Pimecrolimus 10 MG/ML Topical Cream [Elidel] Elidel 1 % Elid el 1 % 12/29/2020 12:00:00 AM EDT 1.0 {application} suspended Elidel 1 % eCW1 ([facility]) Pimecrolimus 10 MG/ML Topical Cream [Elidel] Elidel 1 % Elid el 1 % 12/29/2020 12:00:00 AM EDT 1.0 {application} active Elidel 1 % eCW1 ([facility]) Pimecrolimus 10 MG/ML Topical Cream [Elidel] Elidel 1 % Elid el 1 % 12/29/2020 12:00:00 AM EDT 1.0 {application} suspended Elidel 1 % eCW1 ([facility]) azelaic acid 200 MG/ML Topical Cream [Azelex] Azelex 20 % Az elex 20 % 12/29/2020 12:00:00 AM EDT 1.0 {application} active Azelex 20 % eCW1 ([facility]) Pimecrolimus 10 MG/ML Topical Cream [Elidel] Elidel 1 % Elid el 1 % 12/29/2020 12:00:00 AM EDT 1.0 {application} active Elidel 1 % eCW1 ([facility]) 40 mg 12/25/2020 12:00:00 AM EDT tablet [...] 1- 2TSP OF WATER SOLD: 12/21/2020 [facility] 150 mg 12/19/2020 12:00:00 AM EDT capsule 90 TAKE ONE CAPSULE BY MOUTH THREE TIMES A DAY FOR PAIN MAXIMUM DAILY DOSE = 3 TAKE ONE CAPSULE BY MOUTH THREE TIMES A DAY FOR PAIN MAXIMUM DAILY DOSE = 3 SOLD: 12/19/[facility] 150 mg 12/19/2020 12:00:00 AM EDT capsule 90 TAKE ONE CAPSULE BY MOUTH THREE TIMES A DAY FOR PAIN MAXIMUM DAILY DOSE = 3 TAKE ONE CAPSULE BY MOUTH THREE TIMES A DAY FOR PAIN MAXIMUM DAILY DOSE = 3 SOLD: 01/17/[address] 5 mg 12/18/2020 12:00:00 AM EDT [...] EVERY DAY FOR PAIN SOLD: 12/19/[address] [facility] Cyclobenzaprine hydrochloride 10 MG Oral [...] DAILY DOSE = 2 SOLD: 12/01/[address] [facility] 40 mg 11/26/2020 12:00:00 AM EDT tablet 30 TAKE ONE TABLET BY MOUTH EVERY DAY TAKE ONE TABLET BY MOUTH EVERY DAY SOLD: 11/26/2020 [facility] Furosemide 40 MG Oral Tablet [Lasix] Lasix 40 MG Lasix 40 MG 11/25/2020 12:00:00 AM EDT 1.0 {tablet} active Lasix 40 M G eCW1 ([facility]) Furosemide 40 MG Oral Tablet [Lasix] Lasix 40 MG Lasix 40 MG 11/25/2020 12:00:00 AM EDT 1.0 {tablet} active Lasix 40 M G eCW1 ([facility]) Furosemide 40 MG Oral Tablet [Lasix] Lasix 40 MG Lasix 40 MG 11/25/2020 12:00:00 AM EDT 1.0 {tablet} active Lasix 40 M G eCW1 ([facility]) 50 mg 11/25/2020 12:00:00 AM EDT tablet 90 TAKE ONE TABLET BY MOUTH EVERY 6 HOURS NEEDED FOR PAIN MAXIMUM DAILY DOSE = 4 TAKE ONE TABLET BY MOUTH EVERY 6 HOURS NEEDED FOR PAIN MAXIMUM DAILY DOSE = 4 SOLD: 11/26/2020 [facility] Furosemide 40 MG Oral Tablet [Lasix] Lasix 40 MG Lasix 40 MG 11/25/2020 12:00:00 AM EDT 1.0 {tablet} active Lasix 40 M G eCW1 ([facility]) Furosemide 40 MG Oral Tablet [Lasix] Lasix 40 MG Lasix 40 MG 11/25/2020 12:00:00 AM EDT 1.0 {tablet} active Lasix 40 M G eCW1 ([facility]) 2.5-0.025 mg 10/29/2020 12:00:00 AM EST tablet [...] MAXIMUM DAILY DOSE = 2 SOLD: 10/31/2020 [employer] pantoprazole 40 MG Delayed Release Oral Tablet PANTOPRAZOLE SODIUM 10/27/2020 12:00:00 AM EST tablet,delayed release (DR/EC) 60 T ROGELIO ONE TABLET BY MOUTH TWICE A DAY TAKE ONE TABLET BY MOUTH TWICE A DAY SOLD: 10/28/2020 [employer] [facility] pantoprazole 40 MG Delayed Release Oral Tablet PANTOPRAZOLE SODIUM 10/27/2020 12:00:00 AM EST tablet,delayed release (DR/EC) 60 T ROGELIO ONE TABLET BY MOUTH TWICE A DAY TAKE ONE TABLET BY MOUTH TWICE A DAY SOLD: 01/03/2021 [employer] pantoprazole 40 MG Delayed Release Oral Tablet PANTOPRAZOLE SODIUM 10/27/2020 12:00:00 AM EST tablet,delayed release (DR/EC) 60 T ROGELIO ONE TABLET BY MOUTH TWICE A DAY TAKE ONE TABLET BY MOUTH TWICE A DAY SOLD: 02/03/2021 [employer] pantoprazole 40 MG Delayed Release Oral Tablet PANTOPRAZOLE SODIUM 10/27/2020 12:00:00 AM EST tablet,delayed release (DR/EC) 60 T ROGELIO ONE TABLET BY MOUTH TWICE A DAY TAKE ONE TABLET BY MOUTH TWICE A DAY SOLD: 11/25/2020 [employer] 150 mg 10/19/2020 12:00:00 AM EST capsule 90 TAKE ONE CAPSULE BY MOUTH THREE TIMES A DAY FOR PAIN MAXIMUM DAILY DOSE = 3 TAKE ONE CAPSULE BY MOUTH THREE TIMES A DAY FOR PAIN MAXIMUM DAILY DOSE = 3 SOLD: 10/20/2020 [facility] 50 mg 10/19/2020 12:00:00 AM EST tablet 90 TAKE ONE TABLET BY MOUTH EVERY 6 HOURS NEEDED FOR PAIN MAXIMUM DAILY DOSE = 4 TABLETS TAKE ONE TABLET BY MOUTH EVERY 6 HOURS NEEDED FOR PAIN MAXIMUM DAILY DOSE = 4 TABLETS SOLD: 10/20/2020 [employer] 150 mg 10/19/2020 12:00:00 AM EST capsule 90 TAKE ONE CAPSULE BY MOUTH THREE TIMES A DAY FOR PAIN MAXIMUM DAILY DOSE = 3 TAKE ONE CAPSULE BY MOUTH THREE TIMES A DAY FOR PAIN MAXIMUM DAILY DOSE = 3 SOLD: 11/20/2020 [facility] 50 mg 10/19/2020 12:00:00 AM EST tablet 90 TAKE ONE TABLET BY MOUTH EVERY 6 HOURS NEEDED FOR PAIN MAXIMUM DAILY DOSE = 4 TABLETS TAKE ONE TABLET BY MOUTH EVERY 6 HOURS NEEDED FOR PAIN MAXIMUM DAILY DOSE = 4 TABLETS SOLD: 01/14/2021 [employer] 5 mg 10/15/2020 12:00:00 AM EST tablet [...] MOUTH EVERY DAY FOR PAIN SOLD: 10/18/[address] [facility] Cyclobenzaprine hydrochloride 10 MG Oral Tablet CYCLOBENZAPR INE HCL 10/15/2020 12:00:00 AM EST tablet 75 TAKE ONE TABLET BY MOUTH THREE TIMES A DAY NEEDED FOR SPASMS AND PAIN TAKE ONE TABLET BY MOUTH THREE TIMES A D AY NEEDED FOR SPASMS AND PAIN SOLD: 10/18/2020 [facility] 5 mg 10/15/2020 12:00:00 AM EST [...] MAXIMUM DAILY DOSE = 2 SOLD: 09/30/2020 [facility] 2.5-0.025 mg 09/29/2020 12:00:00 AM EST [...] 15 MINUTES PRIOR TO EXCERCISE SOLD: 09/14/[facility] 60 ACTUAT Albuterol 0.09 MG/ACTUAT Metered Dose Inhaler Albu terol Sulfate HFA 09/14/2020 12:00:00 AM EST RESPIRATORY active MEDENT ([facility]) 137 mcg (0.1 %) 08/31/2020 12:00:00 AM [...] active Azelastin e HCl 0.1 % eCW1 ([facility]) Azelastine HCl 0.1 % Azelastine HCl 0.1 % 08/31/2020 12:00:00 AM ES T 1.0 {puff_in_each_nostril} active Azelastin e HCl 0.1 % eCW1 ([facility]) Azelastine HCl 0.1 % Azelastine HCl 0.1 % 08/31/2020 12:00:00 AM ES T 1.0 {puff_in_each_nostril} active Azelastin e HCl 0.1 % eCW1 ([facility]) Azelastine HCl 0.1 % Azelastine HCl 0.1 % 08/31/2020 12:00:00 AM ES T 1.0 {puff_in_each_nostril} active Azelastin e HCl 0.1 % eCW1 ([facility]) 10 mg 08/31/2020 12:00:00 AM EST tablet 30 TAKE ONE TABLET BY MOUTH EVERY DAY TAKE ONE TABLET BY MOUTH EVERY DAY SOLD: 10/14/2020 [facility] 137 mcg (0.1 %) 08/31/2020 12:00:00 AM EST aerosol,spray 30 SPRAY 1 SPRAY IN EACH NOSTRIL TWO TIMES A DAY SPRAY 1 SPRAY IN EACH NOSTRIL TWO TIMES A DAY SOLD: 10/28/2020 [facility] Azelastine HCl 0.1 % Azelastine HCl 0.1 % 08/31/2020 12:00:00 AM ES T 1.0 {puff_in_each_nostril} active Azelastin e HCl 0.1 % eCW1 ([facility]) Azelastine HCl 0.1 % Azelastine HCl 0.1 % 08/31/2020 12:00:00 AM ES T 1.0 {puff_in_each_nostril} active Azelastin e HCl 0.1 % eCW1 ([facility]) 137 mcg (0.1 %) 08/31/2020 12:00:00 AM EST aerosol,spray 30 SPRAY 1 SPRAY IN EACH NOSTRIL TWO TIMES A DAY SPRAY 1 SPRAY IN EACH NOSTRIL TWO TIMES A DAY SOLD: 09/01/2020 [facility] 10 mg 08/31/2020 12:00:00 AM EST tablet 30 TAKE ONE TABLET BY MOUTH EVERY DAY TAKE ONE TABLET BY MOUTH EVERY DAY SOLD: 11/16/2020 [facility] Azelastine HCl 0.1 % Azelastine HCl 0.1 % 08/31/2020 12:00:00 AM ES T 1.0 {puff_in_each_nostril} active Azelastin e HCl 0.1 % eCW1 ([facility]) Azelastine HCl 0.1 % Azelastine HCl 0.1 % 08/31/2020 12:00:00 AM ES T 1.0 {puff_in_each_nostril} active Azelastin e HCl 0.1 % eCW1 ([facility]) 2.5-0.025 mg 08/31/2020 12:00:00 AM EST tablet [...] 1.0 {tablet} suspended Loratadine 10 MG eCW1 ([facility]) Loratadine 10 MG Oral Tablet Loratadine 10 MG 08/30/2020 12:00:00 A M EST 1.0 {tablet} active Loratadine 10 MG eCW1 ( [facility]) Loratadine 10 MG Oral Tablet Loratadine 10 MG 08/30/2020 12:00:00 A M EST 1.0 {tablet} active Loratadine 10 MG eCW1 ( [facility]) Loratadine 10 MG Oral Tablet Loratadine 10 MG 08/30/2020 12:00:00 A M EST 1.0 {tablet} active Loratadine 10 MG eCW1 ( [facility]) Loratadine 10 MG Oral Tablet Loratadine 10 MG 08/30/2020 12:00:00 A M EST 1.0 {tablet} suspended Loratadine 10 MG eCW1 ([facility]) Loratadine 10 MG Oral Tablet Loratadine 10 MG 08/30/2020 12:00:00 A M EST 1.0 {tablet} suspended Loratadine 10 MG eCW1 ([facility]) Loratadine 10 MG Oral Tablet Loratadine 10 MG 08/30/2020 12:00:00 A M EST 1.0 {tablet} active Loratadine 10 MG eCW1 ( [facility]) Loratadine 10 MG Oral Tablet Loratadine 10 MG 08/30/2020 12:00:00 A M EST 1.0 {tablet} suspended Loratadine 10 MG eCW1 ([facility]) Loratadine 10 MG Oral Tablet Loratadine 10 MG 08/30/2020 12:00:00 A M EST 1.0 {tablet} active Loratadine 10 MG eCW1 ( [facility]) Loratadine 10 MG Oral Tablet Loratadine 10 MG 08/30/2020 12:00:00 A M EST 1.0 {tablet} active Loratadine 10 MG eCW1 ( [facility]) Loratadine 10 MG Oral Tablet Loratadine 10 MG 08/30/2020 12:00:00 A M EST 1.0 {tablet} active Loratadine 10 MG eCW1 ( [facility]) Loratadine 10 MG Oral Tablet Loratadine 10 MG 08/30/2020 12:00:00 A M EST 1.0 {tablet} suspended Loratadine 10 MG eCW1 ([facility]) Loratadine 10 MG Oral Tablet Loratadine 10 MG 08/30/2020 12:00:00 A M EST 1.0 {tablet} suspended Loratadine 10 MG eCW1 ([facility]) Loratadine 10 MG Oral Tablet Loratadine 10 MG 08/30/2020 12:00:00 A M EST 1.0 {tablet} active Loratadine 10 MG eCW1 ( [facility]) Loratadine 10 MG Oral Tablet Loratadine 10 MG 08/30/2020 12:00:00 A M EST 1.0 {tablet} suspended Loratadine 10 MG eCW1 ([facility]) Loratadine 10 MG Oral Tablet Loratadine 10 MG 08/30/2020 12:00:00 A M EST 1.0 {tablet} active Loratadine 10 MG eCW1 ( [facility]) Loratadine 10 MG Oral Tablet Loratadine 10 MG 08/30/2020 12:00:00 A M EST 1.0 {tablet} active Loratadine 10 MG eCW1 ( [facility]) Loratadine 10 MG Oral Tablet Loratadine 10 MG 08/30/2020 12:00:00 A M EST 1.0 {tablet} active Loratadine 10 MG eCW1 ( [facility]) Loratadine 10 MG Oral Tablet Loratadine 10 MG 08/30/2020 12:00:00 A M EST 1.0 {tablet} active Loratadine 10 MG eCW1 ( [facility]) Loratadine 10 MG Oral Tablet Loratadine 10 MG 08/30/2020 12:00:00 A M EST 1.0 {tablet} suspended Loratadine 10 MG eCW1 ([facility]) Loratadine 10 MG Oral Tablet Loratadine 10 MG 08/30/2020 12:00:00 A M EST 1.0 {tablet} active Loratadine 10 MG eCW1 ( [facility]) Loratadine 10 MG Oral Tablet Loratadine 10 MG 08/30/2020 12:00:00 A M EST 1.0 {tablet} active Loratadine 10 MG eCW1 ( [facility]) Loratadine 10 MG Oral Tablet Loratadine 10 MG 08/30/2020 12:00:00 A M EST 1.0 {tablet} suspended Loratadine 10 MG eCW1 ([facility]) Loratadine 10 MG Oral Tablet Loratadine 10 MG 08/30/2020 12:00:00 A M EST 1.0 {tablet} active Loratadine 10 MG eCW1 ( [facility]) Loratadine 10 MG Oral Tablet Loratadine 10 MG 08/30/2020 12:00:00 A M EST 1.0 {tablet} suspended Loratadine 10 MG eCW1 ([facility]) Loratadine 10 MG Oral Tablet Loratadine 10 MG 08/30/2020 12:00:00 A M EST 1.0 {tablet} active Loratadine 10 MG eCW1 ( [facility]) Loratadine 10 MG Oral Tablet Loratadine 10 MG 08/30/2020 12:00:00 A M EST 1.0 {tablet} suspended Loratadine 10 MG eCW1 ([facility]) Loratadine 10 MG Oral Tablet Loratadine 10 MG 08/30/2020 12:00:00 A M EST 1.0 {tablet} suspended Loratadine 10 MG eCW1 ([facility]) Loratadine 10 MG Oral Tablet Loratadine 10 MG 08/30/2020 12:00:00 A M EST 1.0 {tablet} active Loratadine 10 MG eCW1 ( [facility]) Loratadine 10 MG Oral Tablet Loratadine 10 MG 08/30/2020 12:00:00 A M EST 1.0 {tablet} suspended Loratadine 10 MG eCW1 ([facility]) Loratadine 10 MG Oral Tablet Loratadine 10 MG 08/30/2020 12:00:00 A M EST 1.0 {tablet} active Loratadine 10 MG eCW1 ( [facility]) Loratadine 10 MG Oral Tablet Loratadine 10 MG 08/30/2020 12:00:00 A M EST 1.0 {tablet} suspended Loratadine 10 MG eCW1 ([facility]) Loratadine 10 MG Oral Tablet Loratadine 10 MG 08/30/2020 12:00:00 A M EST 1.0 {tablet} suspended Loratadine 10 MG eCW1 ([facility]) Loratadine 10 MG Oral Tablet Loratadine 10 MG 08/30/2020 12:00:00 A M EST 1.0 {tablet} suspended Loratadine 10 MG eCW1 ([facility]) Loratadine 10 MG Oral Tablet Loratadine 10 MG 08/30/2020 12:00:00 A M EST 1.0 {tablet} suspended Loratadine 10 MG eCW1 ([facility]) Loratadine 10 MG Oral Tablet Loratadine 10 MG 08/30/2020 12:00:00 A M EST 1.0 {tablet} active Loratadine 10 MG eCW1 ( [facility]) 150 mg 08/15/2020 12:00:00 AM EST capsule 90 TAKE ONE CAPSULE BY MOUTH THREE TIMES A DAY FOR PAIN MAXIMUM DAILY DOSE = 3 TAKE ONE CAPSULE BY MOUTH THREE TIMES A DAY FOR PAIN MAXIMUM DAILY DOSE = 3 SOLD: 08/15/2020 [facility] 50 mg 08/13/2020 12:00:00 AM EST tablet 90 TAKE ONE TABLET BY MOUTH EVERY 6 HOURS NEEDED FOR PAIN MAXIMUM DAILY DOSE = 4 TAKE ONE TABLET BY MOUTH EVERY 6 HOURS NEEDED FOR PAIN MAXIMUM DAILY DOSE = 4 SOLD: 08/14/2020 [facility] Cyclobenzaprine hydrochloride 10 MG Oral Tablet CYCLOBENZAPR INE HCL 08/13/2020 12:00:00 AM EST tablet 75 TAKE ONE TABLET BY MOUTH THREE TIMES A DAY NEEDED FOR SPASMS AND PAIN MAXIMUM DAILY DOSE = 3 TAKE ONE TABLET BY MOUTH THREE TIMES A DAY NEEDED FOR SPASMS AND PAIN MAXIMUM DAILY DOSE = 3 SOLD: 08/14/2020 [facility] Cyclobenzaprine hydrochloride 10 MG Oral [...] HOURS IF NEEDED X 2 SOLD: 02/11/2021 [facility] Fluocinolone Acetonide 0.25 MG/ML Topical Cream Fluoci nolone Acetonide 0.025 % Fluocinolone Acetonide 0.025 % 07/29/2020 12:00:00 AM EST suspended Fluocinolone Acetonide 0.025 % eCW1 ([facility]) Fluocinolone Acetonide 0.25 MG/ML Topical Cream Fluoci nolone Acetonide 0.025 % Fluocinolone Acetonide 0.025 % 07/29/2020 12:00:00 AM EST active Fluocinolone Acetonide 0.025 % eCW1 ([facility]) 0.025 % 07/29/2020 12:00:00 AM EST cream 15 APPLY THIN LAYER TO AFFECTED AREAS ON BOTH LEGS TWO TIMES A DAY NEEDED APPLY THIN LAYER TO AFFECTED AREAS ON BOTH LEGS TWO TIMES A DAY NEEDED SOLD: 02/03/2021 [facility] Fluocinolone Acetonide 0.25 MG/ML Topical Cream Fluoci nolone Acetonide 0.025 % Fluocinolone Acetonide 0.025 % 07/29/2020 12:00:00 AM EST suspended Fluocinolone Acetonide 0.025 % eCW1 ([facility]) Fluocinolone Acetonide 0.25 MG/ML Topical Cream Fluoci nolone Acetonide 0.025 % Fluocinolone Acetonide 0.025 % 07/29/2020 12:00:00 AM EST active Fluocinolone Acetonide 0.025 % eCW1 ([facility]) Fluocinolone Acetonide 0.25 MG/ML Topical Cream Fluoci nolone Acetonide 0.025 % Fluocinolone Acetonide 0.025 % 07/29/2020 12:00:00 AM EST active Fluocinolone Acetonide 0.025 % eCW1 ([facility]) Fluocinolone Acetonide 0.25 MG/ML Topical Cream Fluoci nolone Acetonide 0.025 % Fluocinolone Acetonide 0.025 % 07/29/2020 12:00:00 AM EST suspended Fluocinolone Acetonide 0.025 % eCW1 ([facility]) Fluocinolone Acetonide 0.25 MG/ML Topical Cream Fluoci nolone Acetonide 0.025 % Fluocinolone Acetonide 0.025 % 07/29/2020 12:00:00 AM EST active Fluocinolone Acetonide 0.025 % eCW1 ([facility]) Cetirizine HCl 10 MG UNK 07/29/2020 12:00:00 AM EST active Cetirizine HCl 10 MG eCW1 ([facility]) Fluocinolone Acetonide 0.25 MG/ML Topical Cream Fluoci nolone Acetonide 0.025 % Fluocinolone Acetonide 0.025 % 07/29/2020 12:00:00 AM EST suspended Fluocinolone Acetonide 0.025 % eCW1 ([facility]) Cetirizine HCl 10 MG UNK 07/29/2020 12:00:00 AM EST suspended Cetirizine HCl 10 MG eCW1 ([facility]) Fluocinolone Acetonide 0.25 MG/ML Topical Cream Fluoci nolone Acetonide 0.025 % Fluocinolone Acetonide 0.025 % 07/29/2020 12:00:00 AM EST active Fluocinolone Acetonide 0.025 % eCW1 ([facility]) Cetirizine HCl 10 MG UNK 07/29/2020 12:00:00 AM EST active Cetirizine HCl 10 MG eCW1 ([facility]) Cetirizine HCl 10 MG UNK 07/29/2020 12:00:00 AM EST active Cetirizine HCl 10 MG eCW1 ([facility]) Cetirizine HCl 10 MG UNK 07/29/2020 12:00:00 AM EST active Cetirizine HCl 10 MG eCW1 ([facility]) Fluocinolone Acetonide 0.25 MG/ML Topical Cream Fluoci nolone Acetonide 0.025 % Fluocinolone Acetonide 0.025 % 07/29/2020 12:00:00 AM EST suspended Fluocinolone Acetonide 0.025 % eCW1 ([facility]) Cetirizine HCl 10 MG UNK 07/29/2020 12:00:00 AM EST suspended Cetirizine HCl 10 MG eCW1 ([facility]) Cetirizine HCl 10 MG UNK 07/29/2020 12:00:00 AM EST suspended Cetirizine HCl 10 MG eCW1 ([facility]) Fluocinolone Acetonide 0.25 MG/ML Topical Cream Fluoci nolone Acetonide 0.025 % Fluocinolone Acetonide 0.025 % 07/29/2020 12:00:00 AM EST suspended Fluocinolone Acetonide 0.025 % eCW1 ([facility]) Fluocinolone Acetonide 0.25 MG/ML Topical Cream Fluoci nolone Acetonide 0.025 % Fluocinolone Acetonide 0.025 % 07/29/2020 12:00:00 AM EST active Fluocinolone Acetonide 0.025 % eCW1 ([facility]) Cetirizine HCl 10 MG UNK 07/29/2020 12:00:00 AM EST suspended Cetirizine HCl 10 MG eCW1 ([facility]) Cetirizine HCl 10 MG UNK 07/29/2020 12:00:00 AM EST suspended Cetirizine HCl 10 MG eCW1 ([facility]) Fluocinolone Acetonide 0.25 MG/ML Topical Cream Fluoci nolone Acetonide 0.025 % Fluocinolone Acetonide 0.025 % 07/29/2020 12:00:00 AM EST suspended Fluocinolone Acetonide 0.025 % eCW1 ([facility]) Cetirizine HCl 10 MG UNK 07/29/2020 12:00:00 AM EST active Cetirizine HCl 10 MG eCW1 ([facility]) 10 mg 07/29/2020 12:00:00 AM EST tablet 30 TAKE ONE TABLET BY MOUTH AT BEDTIME TAKE ONE TABLET BY MOUTH AT BEDTIME SOLD: 07/29/2020 [facility] Cetirizine HCl 10 MG UNK 07/29/2020 12:00:00 AM EST active Cetirizine HCl 10 MG eCW1 ([facility]) Cetirizine HCl 10 MG UNK 07/29/2020 12:00:00 AM EST suspended Cetirizine HCl 10 MG eCW1 ([facility]) Fluocinolone Acetonide 0.25 MG/ML Topical Cream Fluoci nolone Acetonide 0.025 % Fluocinolone Acetonide 0.025 % 07/29/2020 12:00:00 AM EST suspended Fluocinolone Acetonide 0.025 % eCW1 ([facility]) Cetirizine HCl 10 MG UNK 07/29/2020 12:00:00 AM EST active Cetirizine HCl 10 MG eCW1 ([facility]) Cetirizine HCl 10 MG UNK 07/29/2020 12:00:00 AM EST suspended Cetirizine HCl 10 MG eCW1 ([facility]) Fluocinolone Acetonide 0.25 MG/ML Topical Cream Fluoci nolone Acetonide 0.025 % Fluocinolone Acetonide 0.025 % 07/29/2020 12:00:00 AM EST active Fluocinolone Acetonide 0.025 % eCW1 ([facility]) Cetirizine HCl 10 MG UNK 07/29/2020 12:00:00 AM EST suspended Cetirizine HCl 10 MG eCW1 ([facility]) Cetirizine HCl 10 MG UNK 07/29/2020 12:00:00 AM EST suspended Cetirizine HCl 10 MG eCW1 ([facility]) 0.025 % 07/29/2020 12:00:00 AM EST cream 15 APPLY THIN LAYER TO AFFECTED AREAS ON BOTH LEGS TWO TIMES A DAY NEEDED APPLY THIN LAYER TO AFFECTED AREAS ON BOTH LEGS TWO TIMES A DAY NEEDED SOLD: 07/29/2020 [facility] Cetirizine HCl 10 MG UNK 07/29/2020 12:00:00 AM EST suspended Cetirizine HCl 10 MG eCW1 ([facility]) Cetirizine HCl 10 MG UNK 07/29/2020 12:00:00 AM EST active Cetirizine HCl 10 MG eCW1 ([facility]) Cetirizine HCl 10 MG UNK 07/29/2020 12:00:00 AM EST active Cetirizine HCl 10 MG eCW1 ([facility]) Fluocinolone Acetonide 0.25 MG/ML Topical Cream Fluoci nolone Acetonide 0.025 % Fluocinolone Acetonide 0.025 % 07/29/2020 12:00:00 AM EST suspended Fluocinolone Acetonide 0.025 % eCW1 ([facility]) Fluocinolone Acetonide 0.25 MG/ML Topical Cream Fluoci nolone Acetonide 0.025 % Fluocinolone Acetonide 0.025 % 07/29/2020 12:00:00 AM EST active Fluocinolone Acetonide 0.025 % eCW1 ([facility]) Fluocinolone Acetonide 0.25 MG/ML Topical Cream Fluoci nolone Acetonide 0.025 % Fluocinolone Acetonide 0.025 % 07/29/2020 12:00:00 AM EST suspended Fluocinolone Acetonide 0.025 % eCW1 ([facility]) 0.025 % 07/29/2020 12:00:00 AM EST cream [...] EST suspended Fluocinolone Acetonide 0.025 % eCW1 ([facility]) Cetirizine HCl 10 MG UNK 07/29/2020 12:00:00 AM EST suspended Cetirizine HCl 10 MG eCW1 ([facility]) Cetirizine HCl 10 MG UNK 07/29/2020 12:00:00 AM EST active Cetirizine HCl 10 MG eCW1 ([facility]) Fluocinolone Acetonide 0.25 MG/ML Topical Cream Fluoci nolone Acetonide 0.025 % Fluocinolone Acetonide 0.025 % 07/29/2020 12:00:00 AM EST suspended Fluocinolone Acetonide 0.025 % eCW1 ([facility]) Cetirizine HCl 10 MG UNK 07/29/2020 12:00:00 AM EST active Cetirizine HCl 10 MG eCW1 ([facility]) Fluocinolone Acetonide 0.25 MG/ML Topical Cream Fluoci nolone Acetonide 0.025 % Fluocinolone Acetonide 0.025 % 07/29/2020 12:00:00 AM EST active Fluocinolone Acetonide 0.025 % eCW1 ([facility]) Cetirizine HCl 10 MG UNK 07/29/2020 12:00:00 AM EST active Cetirizine HCl 10 MG eCW1 ([facility]) Cetirizine HCl 10 MG UNK 07/29/2020 12:00:00 AM EST active Cetirizine HCl 10 MG eCW1 ([facility]) Fluocinolone Acetonide 0.25 MG/ML Topical Cream Fluoci nolone Acetonide 0.025 % Fluocinolone Acetonide 0.025 % 07/29/2020 12:00:00 AM EST active Fluocinolone Acetonide 0.025 % eCW1 ([facility]) Fluocinolone Acetonide 0.25 MG/ML Topical Cream Fluoci nolone Acetonide 0.025 % Fluocinolone Acetonide 0.025 % 07/29/2020 12:00:00 AM EST active Fluocinolone Acetonide 0.025 % eCW1 ([facility]) Cetirizine HCl 10 MG UNK 07/29/2020 12:00:00 AM EST active Cetirizine HCl 10 MG eCW1 ([facility]) Fluocinolone Acetonide 0.25 MG/ML Topical Cream Fluoci nolone Acetonide 0.025 % Fluocinolone Acetonide 0.025 % 07/29/2020 12:00:00 AM EST active Fluocinolone Acetonide 0.025 % eCW1 ([facility]) 0.025 % 07/29/2020 12:00:00 AM EST cream [...] EST suspended Fluocinolone Acetonide 0.025 % eCW1 ([facility]) Cetirizine HCl 10 MG UNK 07/29/2020 12:00:00 AM EST active Cetirizine HCl 10 MG eCW1 ([facility]) Fluocinolone Acetonide 0.25 MG/ML Topical Cream Fluoci nolone Acetonide 0.025 % Fluocinolone Acetonide 0.025 % 07/29/2020 12:00:00 AM EST active Fluocinolone Acetonide 0.025 % eCW1 ([facility]) Cetirizine HCl 10 MG UNK 07/29/2020 12:00:00 AM EST active Cetirizine HCl 10 MG eCW1 ([facility]) Cetirizine HCl 10 MG UNK 07/29/2020 12:00:00 AM EST suspended Cetirizine HCl 10 MG eCW1 ([facility]) Fluocinolone Acetonide 0.25 MG/ML Topical Cream Fluoci nolone Acetonide 0.025 % Fluocinolone Acetonide 0.025 % 07/29/2020 12:00:00 AM EST active Fluocinolone Acetonide 0.025 % eCW1 ([facility]) Fluocinolone Acetonide 0.25 MG/ML Topical Cream Fluoci nolone Acetonide 0.025 % Fluocinolone Acetonide 0.025 % 07/29/2020 12:00:00 AM EST active Fluocinolone Acetonide 0.025 % eCW1 ([facility]) Fluocinolone Acetonide 0.25 MG/ML Topical Cream Fluoci nolone Acetonide 0.025 % Fluocinolone Acetonide 0.025 % 07/29/2020 12:00:00 AM EST active Fluocinolone Acetonide 0.025 % eCW1 ([facility]) Fluocinolone Acetonide 0.25 MG/ML Topical Cream Fluoci nolone Acetonide 0.025 % Fluocinolone Acetonide 0.025 % 07/29/2020 12:00:00 AM EST active Fluocinolone Acetonide 0.025 % eCW1 ([facility]) Cetirizine HCl 10 MG UNK 07/29/2020 12:00:00 AM EST active Cetirizine HCl 10 MG eCW1 ([facility]) 0.025 % 07/29/2020 12:00:00 AM EST cream [...] EST suspended Fluocinolone Acetonide 0.025 % eCW1 ([facility]) Fluocinolone Acetonide 0.25 MG/ML Topical Cream Fluoci nolone Acetonide 0.025 % Fluocinolone Acetonide 0.025 % 07/29/2020 12:00:00 AM EST active Fluocinolone Acetonide 0.025 % eCW1 ([facility]) Cetirizine HCl 10 MG UNK 07/29/2020 12:00:00 AM EST active Cetirizine HCl 10 MG eCW1 ([facility]) Fluocinolone Acetonide 0.25 MG/ML Topical Cream Fluoci nolone Acetonide 0.025 % Fluocinolone Acetonide 0.025 % 07/29/2020 12:00:00 AM EST active Fluocinolone Acetonide 0.025 % eCW1 ([facility]) Cetirizine HCl 10 MG UNK 07/29/2020 12:00:00 AM EST suspended Cetirizine HCl 10 MG eCW1 ([facility]) Fluocinolone Acetonide 0.25 MG/ML Topical Cream Fluoci nolone Acetonide 0.025 % Fluocinolone Acetonide 0.025 % 07/29/2020 12:00:00 AM EST active Fluocinolone Acetonide 0.025 % eCW1 ([facility]) Cetirizine HCl 10 MG UNK 07/29/2020 12:00:00 AM EST suspended Cetirizine HCl 10 MG eCW1 ([facility]) Cetirizine HCl 10 MG UNK 07/29/2020 12:00:00 AM EST suspended Cetirizine HCl 10 MG eCW1 ([facility]) Fluocinolone Acetonide 0.25 MG/ML Topical Cream Fluoci nolone Acetonide 0.025 % Fluocinolone Acetonide 0.025 % 07/29/2020 12:00:00 AM EST active Fluocinolone Acetonide 0.025 % eCW1 ([facility]) Cetirizine HCl 10 MG UNK 07/29/2020 12:00:00 AM EST active Cetirizine HCl 10 MG eCW1 ([facility]) Cetirizine HCl 10 MG UNK 07/29/2020 12:00:00 AM EST suspended Cetirizine HCl 10 MG eCW1 ([facility]) Fluocinolone Acetonide 0.25 MG/ML Topical Cream Fluoci nolone Acetonide 0.025 % Fluocinolone Acetonide 0.025 % 07/29/2020 12:00:00 AM EST suspended Fluocinolone Acetonide 0.025 % eCW1 ([facility]) Fluocinolone Acetonide 0.25 MG/ML Topical Cream Fluoci nolone Acetonide 0.025 % Fluocinolone Acetonide 0.025 % 07/29/2020 12:00:00 AM EST active Fluocinolone Acetonide 0.025 % eCW1 ([facility]) Cetirizine HCl 10 MG UNK 07/29/2020 12:00:00 AM EST active Cetirizine HCl 10 MG eCW1 ([facility]) 10 mg 07/29/2020 12:00:00 AM EST tablet 30 TAKE ONE TABLET BY MOUTH AT BEDTIME TAKE ONE TABLET BY MOUTH AT BEDTIME SOLD: 08/31/2020 [facility] Cetirizine HCl 10 MG UNK 07/29/2020 12:00:00 AM EST active Cetirizine HCl 10 MG eCW1 ([facility]) cetirizine hydrochloride 10 MG Chewable Tablet Cetiriz ine HCl 10 MG Cetirizine HCl 10 MG 07/29/2020 12:00:00 AM EST 1.0 {tablet} ac tive Cetirizine HCl 10 MG eCW1 ([facility]) Cetirizine HCl 10 MG UNK 07/29/2020 12:00:00 AM EST active Cetirizine HCl 10 MG [facility]CW1 [facility] [facility] cet[facility]izine hydrochloride 10 MG Chewable Tablet Cetiriz ine HCl 10 MG Cetirizine HCl 10 MG 07/29/2020 12:00:00 AM EST 1.0 {tablet} ac tive Cetirizine HCl 10 MG eCW1 ([facility]) cetirizine hydrochloride 10 MG Chewable Tablet Cetiriz ine HCl 10 MG Cetirizine HCl 10 MG 07/29/2020 12:00:00 AM EST 1.0 {tablet} ac tive Cetirizine HCl 10 MG eCW1 ([facility]) Fluocinolone Acetonide 0.25 MG/ML Topical Cream Fluoci nolone Acetonide 0.025 % Fluocinolone Acetonide 0.025 % 07/29/2020 12:00:00 AM EST active Fluocinolone Acetonide 0.025 % eCW1 ([facility]) Fluocinolone Acetonide 0.25 MG/ML Topical Cream Fluoci nolone Acetonide 0.025 % Fluocinolone Acetonide 0.025 % 07/29/2020 12:00:00 AM EST suspended Fluocinolone Acetonide 0.025 % eCW1 ([facility]) Cetirizine HCl 10 MG UNK 07/29/2020 12:00:00 AM EST active Cetirizine HCl 10 MG eCW1 ([facility]) 0.025 % 07/29/2020 12:00:00 AM EST cream [...] EST active Fluocinolone Acetonide 0.025 % eCW1 ([facility]) Cetirizine HCl 10 MG UNK 07/29/2020 12:00:00 AM EST suspended Cetirizine HCl 10 MG eCW1 ([facility]) Cetirizine HCl 10 MG UNK 07/29/2020 12:00:00 AM EST active Cetirizine HCl 10 MG eCW1 ([facility]) Fluocinolone Acetonide 0.25 MG/ML Topical Cream Fluoci nolone Acetonide 0.025 % Fluocinolone Acetonide 0.025 % 07/29/2020 12:00:00 AM EST suspended Fluocinolone Acetonide 0.025 % eCW1 ([facility]) 625 mg 07/24/2020 12:00:00 AM EST tablet 60 TAKE 1-2 CAPSULES BY MOUTH 1-2 TIMES A DAY TAKE 1-2 CAPSULES BY MOUTH 1-2 TIMES A DAY SOLD: 10/15/[facility] 625 mg 07/24/2020 12:00:00 AM EST tablet 60 TAKE 1-2 CAPSULES BY MOUTH 1-2 TIMES A DAY TAKE 1-2 CAPSULES BY MOUTH 1-2 TIMES A DAY SOLD: 09/01/2020 [facility] 625 mg 07/24/2020 12:00:00 AM [...] 12:00:00 AM EST ORAL active MEDENT ([facility]) 20 mg 07/16/2020 12:00:00 AM EST tablet 90 TAKE 1 TABLET BY MOUTH 2-3 TIMES A DAY, TAKE AT LEAST 15 MINUTES BEFORE MEALS ( FOR DIARRHEA AND ABDOMINAL CRAMPS) TAKE 1 TABLET BY MOUTH 2-3 TIMES A DAY, TAKE AT LEAST 15 MINUTES BEFORE MEALS ( FOR DIARRHEA AND ABDOMINAL CRAMPS) SOLD: 07/17/2020 [facility] 150 mg 07/16/2020 12:00:00 AM EST capsule 90 TAKE ONE CAPSULE BY MOUTH THREE TIMES A DAY FOR PAIN MAXIMUM DAILY DOSE = 3 TAKE ONE CAPSULE BY MOUTH THREE TIMES A DAY FOR PAIN MAXIMUM DAILY DOSE = 3 SOLD: 07/17/2020 [facility] 4 gram 07/14/2020 12:00:00 AM EST powder 378 USE 1 SCOOP TWO TIMES A DAY USE 1 SCOOP TWO TIMES A DAY SOLD: 11/16/2020 [facility] 4 gram 07/14/2020 12:00:00 AM [...] AM EDT active Voltaren 1 % eCW1 ([facility]) Diclofenac Sodium 0.01 MG/MG Topical Gel [Voltaren] Voltaren 1 % Voltaren 1 % 07/09/2020 12:00:00 AM EDT active Voltaren 1 % eCW1 ([facility]) Diclofenac Sodium 0.01 MG/MG Topical Gel [Voltaren] Voltaren 1 % Voltaren 1 % 07/09/2020 12:00:00 AM EDT active Voltaren 1 % eCW1 ([facility]) Diclofenac Sodium 0.01 MG/MG Topical Gel [Voltaren] Voltaren 1 % Voltaren 1 % 07/09/2020 12:00:00 AM EDT active Voltaren 1 % eCW1 ([facility]) Diclofenac Sodium 0.01 MG/MG Topical Gel [Voltaren] Voltaren 1 % Voltaren 1 % 07/09/2020 12:00:00 AM EDT suspended Voltaren 1 % eCW1 ([facility]) Diclofenac Sodium 0.01 MG/MG Topical Gel [Voltaren] Voltaren 1 % Voltaren 1 % 07/09/2020 12:00:00 AM EDT active Voltaren 1 % eCW1 ([facility]) Diclofenac Sodium 0.01 MG/MG Topical Gel [Voltaren] Voltaren 1 % Voltaren 1 % 07/09/2020 12:00:00 AM EDT active Voltaren 1 % eCW1 ([facility]) Diclofenac Sodium 0.01 MG/MG Topical Gel [Voltaren] Voltaren 1 % Voltaren 1 % 07/09/2020 12:00:00 AM EDT active Voltaren 1 % eCW1 ([facility]) Diclofenac Sodium 0.01 MG/MG Topical Gel [Voltaren] Voltaren 1 % Voltaren 1 % 07/09/2020 12:00:00 AM EDT suspended Voltaren 1 % eCW1 ([facility]) Diclofenac Sodium 0.01 MG/MG Topical Gel [Voltaren] Voltaren 1 % Voltaren 1 % 07/09/2020 12:00:00 AM EDT suspended Voltaren 1 % eCW1 ([facility]) Diclofenac Sodium 0.01 MG/MG Topical Gel [Voltaren] Voltaren 1 % Voltaren 1 % 07/09/2020 12:00:00 AM EDT active Voltaren 1 % eCW1 ([facility]) Diclofenac Sodium 0.01 MG/MG Topical Gel [Voltaren] Voltaren 1 % Voltaren 1 % 07/09/2020 12:00:00 AM EDT suspended Voltaren 1 % eCW1 ([facility]) Diclofenac Sodium 0.01 MG/MG Topical Gel [Voltaren] Voltaren 1 % Voltaren 1 % 07/09/2020 12:00:00 AM EDT active Voltaren 1 % eCW1 ([facility]) Diclofenac Sodium 0.01 MG/MG Topical Gel [Voltaren] Voltaren 1 % Voltaren 1 % 07/09/2020 12:00:00 AM EDT active Voltaren 1 % eCW1 ([facility]) Diclofenac Sodium 0.01 MG/MG Topical Gel [Voltaren] Voltaren 1 % Voltaren 1 % 07/09/2020 12:00:00 AM EDT active Voltaren 1 % eCW1 ([facility]) Diclofenac Sodium 0.01 MG/MG Topical Gel [Voltaren] Voltaren 1 % Voltaren 1 % 07/09/2020 12:00:00 AM EDT suspended Voltaren 1 % eCW1 ([facility]) Diclofenac Sodium 0.01 MG/MG Topical Gel [Voltaren] Voltaren 1 % Voltaren 1 % 07/09/2020 12:00:00 AM EDT active Voltaren 1 % eCW1 ([facility]) Diclofenac Sodium 0.01 MG/MG Topical Gel [Voltaren] Voltaren 1 % Voltaren 1 % 07/09/2020 12:00:00 AM EDT active Voltaren 1 % eCW1 ([facility]) Diclofenac Sodium 0.01 MG/MG Topical Gel [Voltaren] Voltaren 1 % Voltaren 1 % 07/09/2020 12:00:00 AM EDT active Voltaren 1 % eCW1 ([facility]) Diclofenac Sodium 0.01 MG/MG Topical Gel [Voltaren] Voltaren 1 % Voltaren 1 % 07/09/2020 12:00:00 AM EDT active Voltaren 1 % eCW1 ([facility]) Diclofenac Sodium 0.01 MG/MG Topical Gel [Voltaren] Voltaren 1 % Voltaren 1 % 07/09/2020 12:00:00 AM EDT active Voltaren 1 % eCW1 ([facility]) Diclofenac Sodium 0.01 MG/MG Topical Gel [Voltaren] Voltaren 1 % Voltaren 1 % 07/09/2020 12:00:00 AM EDT active Voltaren 1 % eCW1 ([facility]) Diclofenac Sodium 0.01 MG/MG Topical Gel [Voltaren] Voltaren 1 % Voltaren 1 % 07/09/2020 12:00:00 AM EDT active Voltaren 1 % eCW1 ([facility]) Diclofenac Sodium 0.01 MG/MG Topical Gel [Voltaren] Voltaren 1 % Voltaren 1 % 07/09/2020 12:00:00 AM EDT suspended Voltaren 1 % eCW1 ([facility]) Diclofenac Sodium 0.01 MG/MG Topical Gel [Voltaren] Voltaren 1 % Voltaren 1 % 07/09/2020 12:00:00 AM EDT active Voltaren 1 % eCW1 ([facility]) Diclofenac Sodium 0.01 MG/MG Topical Gel [Voltaren] Voltaren 1 % Voltaren 1 % 07/09/2020 12:00:00 AM EDT active Voltaren 1 % eCW1 ([facility]) Diclofenac Sodium 0.01 MG/MG Topical Gel [Voltaren] Voltaren 1 % Voltaren 1 % 07/09/2020 12:00:00 AM EDT suspended Voltaren 1 % eCW1 ([facility]) Diclofenac Sodium 0.01 MG/MG Topical Gel [Voltaren] Voltaren 1 % Voltaren 1 % 07/09/2020 12:00:00 AM EDT active Voltaren 1 % eCW1 ([facility]) Diclofenac Sodium 0.01 MG/MG Topical Gel [Voltaren] Voltaren 1 % Voltaren 1 % 07/09/2020 12:00:00 AM EDT suspended Voltaren 1 % eCW1 ([facility]) Diclofenac Sodium 0.01 MG/MG Topical Gel [Voltaren] Voltaren 1 % Voltaren 1 % 07/09/2020 12:00:00 AM EDT active Voltaren 1 % eCW1 ([facility]) Diclofenac Sodium 0.01 MG/MG Topical Gel [Voltaren] Voltaren 1 % Voltaren 1 % 07/09/2020 12:00:00 AM EDT active Voltaren 1 % eCW1 ([facility]) Diclofenac Sodium 0.01 MG/MG Topical Gel [Voltaren] Voltaren 1 % Voltaren 1 % 07/09/2020 12:00:00 AM EDT suspended Voltaren 1 % eCW1 ([facility]) Diclofenac Sodium 0.01 MG/MG Topical Gel [Voltaren] Voltaren 1 % Voltaren 1 % 07/09/2020 12:00:00 AM EDT suspended Voltaren 1 % eCW1 ([facility]) Diclofenac Sodium 0.01 MG/MG Topical Gel [Voltaren] Voltaren 1 % Voltaren 1 % 07/09/2020 12:00:00 AM EDT active Voltaren 1 % eCW1 ([facility]) Diclofenac Sodium 0.01 MG/MG Topical Gel [Voltaren] Voltaren 1 % Voltaren 1 % 07/09/2020 12:00:00 AM EDT active Voltaren 1 % eCW1 ([facility]) Diclofenac Sodium 0.01 MG/MG Topical Gel [Voltaren] Voltaren 1 % Voltaren 1 % 07/09/2020 12:00:00 AM EDT active Voltaren 1 % eCW1 ([facility]) Diclofenac Sodium 0.01 MG/MG Topical Gel [Voltaren] Voltaren 1 % Voltaren 1 % 07/09/2020 12:00:00 AM EDT suspended Voltaren 1 % eCW1 ([facility]) Diclofenac Sodium 0.01 MG/MG Topical Gel [Voltaren] Voltaren 1 % Voltaren 1 % 07/09/2020 12:00:00 AM EDT active Voltaren 1 % eCW1 ([facility]) Diclofenac Sodium 0.01 MG/MG Topical Gel [Voltaren] Voltaren 1 % Voltaren 1 % 07/09/2020 12:00:00 AM EDT suspended Voltaren 1 % eCW1 ([facility]) Diclofenac Sodium 0.01 MG/MG Topical Gel [Voltaren] Voltaren 1 % Voltaren 1 % 07/09/2020 12:00:00 AM EDT active Voltaren 1 % eCW1 ([facility]) Diclofenac Sodium 0.01 MG/MG Topical Gel [Voltaren] Voltaren 1 % Voltaren 1 % 07/09/2020 12:00:00 AM EDT active Voltaren 1 % eCW1 ([facility]) Diclofenac Sodium 0.01 MG/MG Topical Gel [Voltaren] Voltaren 1 % Voltaren 1 % 07/09/2020 12:00:00 AM EDT suspended Voltaren 1 % eCW1 ([facility]) Diclofenac Sodium 0.01 MG/MG Topical Gel [Voltaren] Voltaren 1 % Voltaren 1 % 07/09/2020 12:00:00 AM EDT active Voltaren 1 % eCW1 ([facility]) Diclofenac Sodium 0.01 MG/MG Topical Gel [Voltaren] Voltaren 1 % Voltaren 1 % 07/09/2020 12:00:00 AM EDT suspended Voltaren 1 % eCW1 ([facility]) Diclofenac Sodium 0.01 MG/MG Topical Gel [Voltaren] Voltaren 1 % Voltaren 1 % 07/09/2020 12:00:00 AM EDT active Voltaren 1 % eCW1 ([facility]) Atropine Sulfate 0.025 MG / Diphenoxylate Hydrochlorid e 2.5 MG Oral Tablet Diphenoxylate Hydrochloride/Atropine Sulfate 07/02/2020 12:00:00 AM EDT ORAL active MEDENT ([facility], ) pantoprazole 40 MG Delayed Release Oral Tablet [...] 15 MINUTES PRIOR TO EXCERCISE SOLD: 08/01/2020 [facility] 55 mcg 06/25/2020 12:00:00 AM [...] {tablet} active Ci pro 250 MG eCW1 ([facility]) Ciprofloxacin 250 MG Oral Tablet [Cipro] Cipro 250 MG Cipro 250 MG 06/23/2020 12:00:00 AM EDT 1.0 {tablet} active Ci pro 250 MG eCW1 ([facility]) Ciprofloxacin 250 MG Oral Tablet [Cipro] Cipro 250 MG Cipro 250 MG 06/23/2020 12:00:00 AM EDT 1.0 {tablet} suspended Cipro 250 MG eCW1 ([facility]) Ciprofloxacin 250 MG Oral Tablet [Cipro] Cipro 250 MG Cipro 250 MG 06/23/2020 12:00:00 AM EDT 1.0 {tablet} suspended Cipro 250 MG eCW1 ([facility]) Ciprofloxacin 250 MG Oral Tablet [Cipro] Cipro 250 MG Cipro 250 MG 06/23/2020 12:00:00 AM EDT 1.0 {tablet} active Ci pro 250 MG eCW1 ([facility]) Ciprofloxacin 250 MG Oral Tablet [Cipro] Cipro 250 MG Cipro 250 MG 06/23/2020 12:00:00 AM EDT 1.0 {tablet} suspended Cipro 250 MG eCW1 ([facility]) Ciprofloxacin 250 MG Oral Tablet [Cipro] Cipro 250 MG Cipro 250 MG 06/23/2020 12:00:00 AM EDT 1.0 {tablet} suspended Cipro 250 MG eCW1 ([facility]) Ciprofloxacin 250 MG Oral Tablet [Cipro] Cipro 250 MG Cipro 250 MG 06/23/2020 12:00:00 AM EDT 1.0 {tablet} suspended Cipro 250 MG eCW1 ([facility]) Ciprofloxacin 250 MG Oral Tablet [Cipro] Cipro 250 MG Cipro 250 MG 06/23/2020 12:00:00 AM EDT 1.0 {tablet} suspended Cipro 250 MG eCW1 ([facility]) Ciprofloxacin 250 MG Oral Tablet [Cipro] Cipro 250 MG Cipro 250 MG 06/23/2020 12:00:00 AM EDT 1.0 {tablet} suspended Cipro 250 MG eCW1 ([facility]) Ciprofloxacin 250 MG Oral Tablet [Cipro] Cipro 250 MG Cipro 250 MG 06/23/2020 12:00:00 AM EDT 1.0 {tablet} active Ci pro 250 MG eCW1 ([facility]) Ciprofloxacin 250 MG Oral Tablet [Cipro] Cipro 250 MG Cipro 250 MG 06/23/2020 12:00:00 AM EDT 1.0 {tablet} active Ci pro 250 MG eCW1 ([facility]) Ciprofloxacin 250 MG Oral Tablet [Cipro] Cipro 250 MG Cipro 250 MG 06/23/2020 12:00:00 AM EDT 1.0 {tablet} active Ci pro 250 MG eCW1 ([facility]) Ciprofloxacin 250 MG Oral Tablet [Cipro] Cipro 250 MG Cipro 250 MG 06/23/2020 12:00:00 AM EDT 1.0 {tablet} active Ci pro 250 MG eCW1 ([facility]) Ciprofloxacin 250 MG Oral Tablet [Cipro] Cipro 250 MG Cipro 250 MG 06/23/2020 12:00:00 AM EDT 1.0 {tablet} suspended Cipro 250 MG eCW1 ([facility]) Ciprofloxacin 250 MG Oral Tablet [Cipro] Cipro 250 MG Cipro 250 MG 06/23/2020 12:00:00 AM EDT 1.0 {tablet} suspended Cipro 250 MG eCW1 ([facility]) Ciprofloxacin 250 MG Oral Tablet [Cipro] Cipro 250 MG Cipro 250 MG 06/23/2020 12:00:00 AM EDT 1.0 {tablet} active Ci pro 250 MG eCW1 ([facility]) Ciprofloxacin 250 MG Oral Tablet [Cipro] Cipro 250 MG Cipro 250 MG 06/23/2020 12:00:00 AM EDT 1.0 {tablet} suspended Cipro 250 MG eCW1 ([facility]) Ciprofloxacin 250 MG Oral Tablet [Cipro] Cipro 250 MG Cipro 250 MG 06/23/2020 12:00:00 AM EDT 1.0 {tablet} suspended Cipro 250 MG eCW1 ([facility]) Ciprofloxacin 250 MG Oral Tablet [Cipro] Cipro 250 MG Cipro 250 MG 06/23/2020 12:00:00 AM EDT 1.0 {tablet} suspended Cipro 250 MG eCW1 ([facility]) Ciprofloxacin 250 MG Oral Tablet [Cipro] Cipro 250 MG Cipro 250 MG 06/23/2020 12:00:00 AM EDT 1.0 {tablet} active Ci pro 250 MG eCW1 ([facility]) Ciprofloxacin 250 MG Oral Tablet [Cipro] Cipro 250 MG Cipro 250 MG 06/23/2020 12:00:00 AM EDT 1.0 {tablet} active Ci pro 250 MG eCW1 ([facility]) Ciprofloxacin 250 MG Oral Tablet [Cipro] Cipro 250 MG Cipro 250 MG 06/23/2020 12:00:00 AM EDT 1.0 {tablet} suspended Cipro 250 MG eCW1 ([facility]) Ciprofloxacin 250 MG Oral Tablet [Cipro] Cipro 250 MG Cipro 250 MG 06/23/2020 12:00:00 AM EDT 1.0 {tablet} suspended Cipro 250 MG eCW1 ([facility]) Ciprofloxacin 250 MG Oral Tablet [Cipro] Cipro 250 MG Cipro 250 MG 06/23/2020 12:00:00 AM EDT 1.0 {tablet} suspended Cipro 250 MG eCW1 ([facility]) Ciprofloxacin 250 MG Oral Tablet [Cipro] Cipro 250 MG Cipro 250 MG 06/23/2020 12:00:00 AM EDT 1.0 {tablet} suspended Cipro 250 MG eCW1 ([facility]) Ciprofloxacin 250 MG Oral Tablet [Cipro] Cipro 250 MG Cipro 250 MG 06/23/2020 12:00:00 AM EDT 1.0 {tablet} suspended Cipro 250 MG eCW1 ([facility]) Ciprofloxacin 250 MG Oral Tablet [Cipro] Cipro 250 MG Cipro 250 MG 06/23/2020 12:00:00 AM EDT 1.0 {tablet} active Ci pro 250 MG eCW1 ([facility]) Ciprofloxacin 250 MG Oral Tablet [Cipro] Cipro 250 MG Cipro 250 MG 06/23/2020 12:00:00 AM EDT 1.0 {tablet} active Ci pro 250 MG eCW1 ([facility]) Ciprofloxacin 250 MG Oral Tablet [Cipro] Cipro 250 MG Cipro 250 MG 06/23/2020 12:00:00 AM EDT 1.0 {tablet} suspended Cipro 250 MG eCW1 ([facility]) Ciprofloxacin 250 MG Oral Tablet [Cipro] Cipro 250 MG Cipro 250 MG 06/23/2020 12:00:00 AM EDT 1.0 {tablet} suspended Cipro 250 MG eCW1 ([facility]) Ciprofloxacin 250 MG Oral Tablet [Cipro] Cipro 250 MG Cipro 250 MG 06/23/2020 12:00:00 AM EDT 1.0 {tablet} active Ci pro 250 MG eCW1 ([facility]) Ciprofloxacin 250 MG Oral Tablet [Cipro] Cipro 250 MG Cipro 250 MG 06/23/2020 12:00:00 AM EDT 1.0 {tablet} active Ci pro 250 MG eCW1 ([facility]) Ciprofloxacin 250 MG Oral Tablet [Cipro] Cipro 250 MG Cipro 250 MG 06/23/2020 12:00:00 AM EDT 1.0 {tablet} suspended Cipro 250 MG eCW1 ([facility]) Ciprofloxacin 250 MG Oral Tablet [Cipro] Cipro 250 MG Cipro 250 MG 06/23/2020 12:00:00 AM EDT 1.0 {tablet} active Ci pro 250 MG eCW1 ([facility]) Ciprofloxacin 250 MG Oral Tablet [Cipro] Cipro 250 MG Cipro 250 MG 06/23/2020 12:00:00 AM EDT 1.0 {tablet} suspended Cipro 250 MG eCW1 ([facility]) Ciprofloxacin 250 MG Oral Tablet [Cipro] Cipro 250 MG Cipro 250 MG 06/23/2020 12:00:00 AM EDT 1.0 {tablet} active Ci pro 250 MG eCW1 ([facility]) Ciprofloxacin 250 MG Oral Tablet [Cipro] Cipro 250 MG Cipro 250 MG 06/23/2020 12:00:00 AM EDT 1.0 {tablet} active Ci pro 250 MG eCW1 ([facility]) Ciprofloxacin 250 MG Oral Tablet [Cipro] Cipro 250 MG Cipro 250 MG 06/23/2020 12:00:00 AM EDT 1.0 {tablet} active Ci pro 250 MG eCW1 ([facility]) Ciprofloxacin 250 MG Oral Tablet [Cipro] Cipro 250 MG Cipro 250 MG 06/23/2020 12:00:00 AM EDT 1.0 {tablet} active Ci pro 250 MG eCW1 ([facility]) Ciprofloxacin 250 MG Oral Tablet [Cipro] Cipro 250 MG Cipro 250 MG 06/23/2020 12:00:00 AM EDT 1.0 {tablet} active Ci pro 250 MG eCW1 ([facility]) 250 mg 06/23/2020 12:00:00 AM EDT tablet 6 TAKE ONE TABLET BY MOUTH EVERY 12 HOURS FOR 3 DAYS TAKE ONE TABLET BY MOUTH EVERY 12 HOURS FOR 3 DAYS [facility] Ciprofloxacin 250 MG Oral Tablet [Cipro] Cipro 250 MG Cipro 250 MG 06/23/2020 12:00:00 AM EDT 1.0 {tablet} suspended Cipro 250 MG eCW1 ([facility]) Ciprofloxacin 250 MG Oral Tablet [Cipro] Cipro 250 MG Cipro 250 MG 06/23/2020 12:00:00 AM EDT 1.0 {tablet} active Ci pro 250 MG eCW1 ([facility]) Ciprofloxacin 250 MG Oral Tablet [Cipro] Cipro 250 MG Cipro 250 MG 06/23/2020 12:00:00 AM EDT 1.0 {tablet} active Ci pro 250 MG eCW1 ([facility]) Ciprofloxacin 250 MG Oral Tablet [Cipro] Cipro 250 MG Cipro 250 MG 06/23/2020 12:00:00 AM EDT 1.0 {tablet} active Ci pro 250 MG eCW1 ([facility]) Ciprofloxacin 250 MG Oral Tablet [Cipro] Cipro 250 MG Cipro 250 MG 06/23/2020 12:00:00 AM EDT 1.0 {tablet} active Ci pro 250 MG eCW1 ([facility]) 100 million cell 06/22/2020 12:00:00 AM EDT [...] AND ABDOMINAL CRAMPS) SOLD: 06/14/2020 [facility] 4 gram 02/17/2020 12:00:00 AM [...] to padilla Policy Padilla Plan Information [facility] [id number] SP [id number] WELLNESS CONNECTION [id number] SP [id number] JUAQUIN [facility] W [id number] Empl [id number] [facility] [id number] [employer] Workers Compensation [id number] [facility] [id number] SP [id number] [facility] [id number] SP [id number] [employer] () Workers Compensation [id number] Self 3 [id number] [employer] ([place]) Workers Compensation [id number] Self 3 [id number] [employer] ([place]) Workers Compensation [id number] Self 3 [id number] [employer] ([place]) Workers Compensation [id number] Self 3 [id number] [employer] ([place]) Workers Compensation [id number] Self 3 [id number] [employer] (WC) Workers Compensation [id number] Self 3 [id number] [facility] I [id number] Self [id number] [facility] Community Plan Commercial [id number] Self [id number] [facility] [id number] SP [id number] [facility] PLAN [facility] [id number] SP [id number] [facility] [employer] [id number] Self [id number] ANSI-Not a Secondary Insurance [id number] ANSI-Medicaid [id number] ANSI-Not a Secondary Insurance [id number] ANSI-Medicaid [id number] ANSI-Medicaid [id number] ANSI-Medicaid [id number] ANSI-Not a Secondary Insurance [id number] ANSI-Not a Secondary Insurance [id number] ANSI-Medicaid [id number] ANSI-Medicaid [id number] ANSI-Medicaid [id number] ANSI-Medicaid [id number] ANSI-Not a Secondary Insurance [id number] ANSI-Not a Secondary Insurance [id number] ANSI-Medicaid [id number] ANSI-Medicaid [id number] ANSI-Medicaid [id number] ANSI-Not a Secondary Insurance [id number] ANSI-Medicaid [id number] ANSI-Medicaid [id number] ANSI-Medicaid [id number] ANSI-Not a Secondary Insurance [id number] ANSI-Medicaid [id number] ANSI-Not a Secondary Insurance [id number] ANSI-Medicaid [id number] ANSI-Medicaid [id number] [id number] ANSI-Not a Secondary Insurance [id number]-j3ee9 [id number] [id number]-870p-[id number] ANSI-Medicaid [id number] ANSI-Medicaid [id number] ANSI-Medicaid [id number] ANSI-Not a Secondary Insurance [id number]-[id number]-p66uz [id number]-795q-68p1-921y-[id number] ANSI-Medicaid [id number] ANSI-Not a Secondary Insurance [id number] [id number]-[id number] ANSI-Medicaid [id number] ANSI-Medicaid [id number] ANSI-Medicaid [id number] ANSI-Not a Secondary Insurance [id number]-v2yc2 [id number] [id number]-97r4-80ss-[id number] ANSI-Medicaid [id number] ANSI-Medicaid [id number] ANSI-Not a Secondary Insurance [id number]-idb2-61jf-a481-itehg [id number] [id number]-jvv9-81ed-i342- ANSI-Medicaid [id number] ANSI-Not a Secondary Insurance [id number]-b5g0-s0j9p [id number]-b3p2-[id number] ANSI-Medicaid [id number] ANSI-Medicaid [id number] ANSI-Not a Secondary Insurance [id number]-01xk-8o6c-[id number] hq60ien [id number]-76yo-5l1d-[id number] ANSI-Medicaid [id number] ANSI-Medicaid [id number] ANSI-Medicaid [id number] ANSI-Not a Secondary Insurance [id number]-p6509 [id number]-dl98-[id number] ANSI-Medicaid [id number] ANSI-Medicaid [id number] ANSI-Not a Secondary Insurance [id number]-uq5y-s5043 [id number] [id number]-xc6k-[id number] ANSI-Not a Secondary Insurance [id number]-qq0o-3560-k71r-j48h6 vy40mk2 [id number]-gc6s-0280-e83z-[id number] ANSI-Medicaid [id number] ANSI-Medicaid [id number] ANSI-Not a Secondary Insurance [id number] ANSI-Medicaid [id number]-[id number] ANSI-Medicaid [id number] ANSI-Medicaid [id number] ANSI-Medicaid [id number]-e947-3lkwv2z0fa83 ANSI-Not a Secondary Insurance [id number]-1v73-a6o6-77u3e asx99u4 [id number]-2i86-a7e6-45m8wggz14k3 ANSI-Medicaid [id number] ANSI-Medicaid [id number] ANSI-Not a Secondary Insurance [id number]-[id number] ANSI-Medicaid [id number] ANSI-Medicaid [id number] ANSI-Not a Secondary Insurance [id number]-g16d-4096-z3ww-lkv19 [id number]-6017-x9tp-[id number] ANSI-Medicaid [id number] ANSI-Not a Secondary Insurance [id number]-[id number]-[id number] ANSI-Medicaid [id number] ANSI-Not a Secondary Insurance [id number]-370e-451o-53150 12c6fs6 73f73jz8-1xbe-827q-358g-[id number] ANSI-Medicaid [id number] ANSI-Medicaid [id number] ANSI-Medicaid [id number] ANSI-Not a Secondary Insurance [id number]-775m-z979-25s88 [id number] [id number]-940k-[id number] ANSI-Medicaid [id number] [facility] Health Maintenance Organization (HMO) [id number] Self [id number] ANSI-Medicaid [id number] ANSI-Not a Secondary Insurance [id number]-wk42-6dl0-98jf-[id number] [id number]-[id number] ANSI-Medicaid [id number] ANSI-Medicaid [id number]-[id number] ANSI-Medicaid [id number] ANSI-Not a Secondary Insurance [id number]-2rkr-a502-av422 vl6gw8f 38l92my6-6igc-1bqj-e127-lw473sc0dq0k ANSI-Medicaid [id number] ANSI-Not a Secondary Insurance [id number]-a3rw-5j9zj 99358sm [id number]-i3mx-[id number] ANSI-Medicaid [id number] ANSI-Medicaid [id number] ANSI-Not a Secondary Insurance 58rp4m4h-qt33-8r25-281u-7m76b [id number] 65wo8y5i-pr02-6i98-749r-[id number] ANSI-Medicaid [id number]-72vg-[id number] ANSI-Medicaid [id number]-1dm6-82jw-[id number] ANSI-Not a Secondary Insurance 0iai7xqb-63r3-05l7-r758-uulmt 2q6k6o5 7bpx0ede-61z6-21k2-a950-hftub1c1t7a3 ANSI-Medicaid [id number] ANSI-Medicaid [id number]-[id number]-[id number] ANSI-Medicaid [id number]-[id number] ANSI-Not a Secondary Insurance [id number]-7166-6515-o1z1-001d7 [id number]-4806-2837-[id number] [facility] Health Maintenance Organization (HMO) [id number] Self [id number] ANSI-Medicaid [id number] ANSI-Medicaid [id number] ANSI-Not a Secondary Insurance [id number]-tg220 5s47j7c [id number] ANSI-Not a Secondary Insurance [id number]-47b8-5874-4gsr-h8k23 [id number] [id number]-40r7-3047-0geq-[id number] ANSI-Medicaid [id number] ANSI-Medicaid [id number] [facility] [id number] [id number] Preferred Provider Organization (PPO) [id number] ANSI-Not a Secondary Insurance [id number]-5c48-59opa [id number] [id number]-8811-34fh-6e47-74qpyt4tmd6k ANSI-Medicaid [id number]-0o88-[id number] ANSI-Medicaid [id number]-[id number] ANSI-Not a Secondary Insurance [id number]-gv7q-l0x8x 00e6o3s 66q0ja20-1712-2724-fj6s-q5r1c05f4d4q ANSI-Medicaid [id number] ANSI-Medicaid [id number] ANSI-Medicaid [id number] ANSI-Not a Secondary Insurance [id number]-[id number] [id number] [id number]-1nnl-[id number] ANSI-Medicaid [id number] [facility] Health Maintenance Organization ([facility]) [id number] Self [id number] [facility] Health Maintenance Organization (O) [id number] Self [id number] [facility] Health Maintenance Organization (HMO) [id number] Self [id number] [facility] Health Maintenance Organization (O) [id number] Self [id number] [facility] Health Maintenance Organization (O) [id number] Self [id number] [facility] CLAIMS DOES NOT APPLY SP DOES NOT APPLY [employer] Medicaid Medicaid [id number] Self [id number] [employer] Medicaid Medicaid [id number] Self [facility] CLAIMS [id number] SP [id number] [facility] CLAIMS [id number] SP [id number] [facility] CLAIMS [id number] SP [id number] [id number] Self [facility] CLAIMS [id number] SP [id number] [facility] WC CLAIMS UNK SP UNK [facility] WC CLAIMS [id number] SP [id number] [facility] [id number] SP [id number] [place] [id number] Self MEDICAID P [id number] S [id number] ONE CALL CARE MANAGEMENT O UNAVAILABLE [id number] S UNAVAILABLE ONE CALL CARE MANAGEMENT P [id number] S [id number] [employer] NF [id number] SP [id number] [employer] W.C. [id number] SP [id number] [employer] PROGRAM P [id number] S [id number] SELF PAY UNAVAILABLE SP UNAVAILA BLE [facility] P [id number] S [id number] [facility] CLAIMS WCB# [id number] SP WCB# [id number] [facility] COMMUNITY PLAN [facility] [id number] SP [id number] [facility] COMMUNITY PLAN MCDO [id number] SP [id number] [facility] CLAIMS [id number] SP [id number] [place] [id number] SP [id number] [facility] WC CLAIMS [id number] SP [id number] [facility] CLAIMS [id number] [place] [id number] SP [id number] [facility] WC CLAIMS [id number] SP [id number] [facility] O [id number] S [id number] SELF PAY ONLY [id number] SP [id number] MEDICAID [id number] SP [id number] UN COMMUNITY PLAN [facility] [id number] SP [id number] [facility] WC CLAIMS [id number] SP [id number] ANSI-Medicaid [id number] ANSI-Not a Secondary Insurance [id number] ANSI-Medicaid [id number] ANSI-Medicaid [id number] ANSI-Medicaid [id number] Problems, Conditions, and Diagnoses Code Display Name Description Problem Type Effective Dates Data Source(s) R73.03 [id number] Pre-diabetes Problem 06/29/2021 12:00:00 AM EDT eCW1 ([facility]) M70.21 [id number] Olecranon bursitis of right elbow Prob yaima 06/29/2021 12:00:00 AM EDT eCW1 ([facility]) K76.0 225269983 NAFL (nonalcoholic fatty liver) Problem 06/28/2021 12:00:00 AM EDT eCW1 ([facility]) A60.00 06482154 Genital herpes simplex, unspecified site Problem 06/24/2021 12:00:00 AM EDT eCW1 ([facility]) J45.30 114062145 Mild persistent asthma without complicati on Problem 06/18/2021 12:00:00 AM EDT eCW1 ([facility]) J45.40 544365271 Moderate persistent asthma, unsp ecified whether complicated Problem 06/18/2021 12:00:00 AM EDT [facility] K76.0 252012632 Hepatic steatosis Problem 06/01/2021 12:00:0 0 AM EDT eCW1 ([facility]) M50.10 279786306 Cervical disc disord er with radiculopathy, unspecified cervical region Problem 05/26/2021 12:00:00 AM EDT eCW1 ([facility]) R53.83 82623383 Fatigue, unspecified type Problem 02/19/2021 12:00:00 AM EDT eCW1 ([facility]) R35.0 352672178 Urinary frequency Problem 02/19/2021 12:00:0 0 AM EDT eCW1 ([facility]) G47.9 19899444 Sleep disturbance Problem 02/19/2021 12:00:0 0 AM EDT eCW1 ([facility]) R60.9 025722564 Dependent edema Problem 02/19/2021 12:00:00 AM EDT eCW1 ([facility]) F32.9 55017963 Depression, unspecified depression type P roblem 02/15/2021 12:00:00 AM EDT eCW1 ([facility]) L21.9 10215365 Seborrheic dermatitis Problem 02/09/2021 12: 00:00 AM EDT eCW1 ([facility]) L70.0 595189012 Comedonal acne Problem 02/09/2021 12:00:00 A M EDT eCW1 ([facility]) E78.2 Mixed hyperlipidemia Mixed hyperlipidemia Problem 02/02/2021 12:00:00 AM EDT MED[facility] ([facility]) Z71.3 Dietary management surveillance Dietary management michael veillance Problem 02/02/2021 12:00:00 AM EDT [facility] ([facility]) E66.09 Obesity Obesity Problem 02/02/2021 12:00:00 AM ED T [facility] ([facility]) E78.1 Pure hyperglyceridemia Pure hyperglyceridemia Problem 02/02/2021 12:00:00 AM EDT [facility] ([facility]) R07.9 Chest pain Chest pain Problem 02/02/2021 12:00:00 AM ED T [facility] ([facility]) E78.2 545253212 Mixed hyperlipidemia Problem 01/24/2021 12:0 0:00 AM EDT eCW1 ([facility]) G47.33 77828599 LOU (obstructive sleep apnea) Problem 01/05/2021 12:00:00 AM EDT eCW1 ([facility]) L71.0 251639200 Perioral dermatitis Problem 12/29/2020 12:00 :00 AM EDT eCW1 ([facility]) M79.7 152491369 Fibromyalgia Problem 12/20/2020 12:00:00 AM EDT eCW1 ([facility]) G43.709 692393591 Chronic migraine Problem 11/03/2020 12:00:00 AM EST eCW1 ([facility]) J30.2 332661798 Seasonal 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, unspecified t stitch separator Problem 08/30/2020 12:00:00 AM EST eCW1 ([facility]) M79.645 [id number] Pain in left finger(s) Problem 07/09/2020 12:00:00 AM EDT eCW1 ([facility]) M79.644 314810279524643 Pain in right finger(s) Problem 1 12:00:00 AM EDT eCW1 ([facility]) K52.9 667361781 Chronic diarrhea Problem 07/09/2020 12:00:00 AM EDT eCW1 ([facility]) K21.9 Gastroesophageal reflux disease Gastroesophageal reflu x disease Problem 06/24/2020 12:00:00 AM EDT MED[facility] ([facility] ) Note: Followed by PCP. Z01.411 [id number] Encounter for gyneco logical examination (general) (routine) with abnormal findings Problem 06/23/2020 12:00:00 AM EDT eCW1 ([facility]) Surgeries/Procedures Procedure Description Date Indications Data Source(s) OFFICE OUTPATIENT VISIT 15 MINUTES 06/15/2021 12:00:00 AM EDT MED[facility] ([facility] ) BRNCDILAT RSPSE SPMTRY PRE&POST-BRNCDILAT ADMN 12:00:00 AM EDT MED[facility] ([facility]) OFFICE OUTPATIENT VISIT 15 MINUTES 06/13/2021 12:00:00 AM EDT [facility] ([facility]) Pain Procedure Log 03/23/2021 12:00:00 AM EDT eCW1 ([facility]) Completion of procedural visit when meets criteria 03/09/2021 12:00:00 AM EDT eCW1 ([facility]) OFFICE OUTPATIENT VISIT 15 MINUTES 02/17/2021 12:00:00 AM EDT MED[facility] ([facility], ) OFFICE OUTPATIENT NEW 30 MINUTES 02/15/2021 12:00:00 A M EDT [facility] ([facility], ) ECG ROUTINE ECG W/LEAST 12 LDS W/I&R 02/02/2021 12:00: 00 AM EDT [facility] ([facility]) Endoscopy Upper GI Biopsy 01/28/2021 12:00:00 AM EDT [facility] ([facility] ) Med: Derm 1% Lidocaine with Epinephrine Injection Intr adermally to marked areas 01/06/2021 12:00:00 AM EDT eCW1 ([facility]) BRNCDILAT RSPSE SPMTRY PRE&POST-BRNCDILAT ADMN 021 12:00:00 AM EDT [facility] ([facility]) OFFICE OUTPATIENT VISIT 15 MINUTES 12/23/2020 12:00:00 AM EDT [facility] ([facility] OFFICE OUTPATIENT VISIT 25 MINUTES 12/23/2020 12:00:00 AM EDT [facility] ([facility]) Pain Procedure Log 12/01/2020 12:00:00 AM EDT eCW1 ([facility]) Completion of procedural visit when meets criteria 11/03/2020 12:00:00 AM EST eCW1 ([facility]) BRNCDILAT RSPSE SPMTRY PRE&POST-BRNCDILAT ADMN 020 12:00:00 AM EDT [facility] ([facility]) Results ID Date Data Source TOTAL IRON BINDING CAPACIT 06/29/2021 12:00:00 AM EDT eCW1 ( [facility]) Name Value Range Interpretation Code Description Data Viviana rce(s) Supporting Document(s) 433 250-450 TOTAL IRON BINDING CAPACI TY eCW1 ([facility]) 87 50-170 IRON (FE) eCW1 ([facility]) 20.1 13.2-45.0 PERCENT SATURATION eCW1 ([facility]) ID Date Data Source [id number] 06/29/2021 12:00:00 AM EDT eCW1 ([facility]) Name Value Range Interpretation Code Description Data Viviana rce(s) Supporting Document(s) Hemoglobin A1c/Hemoglobin.total in Blood 5.8 HEMOGLOBIN A1c eCW1 ([facility]) ID Date Data Source HEPATITIS PROFILE ACUTE 06/29/2021 12:00:00 AM EDT eCW1 ([facility]) Name Value Range Interpretation Code Description Data Viviana rce(s) Supporting Document(s) < 0.0 <0.8 HEPATITIS C VIRUS FRANC IND EX eCW1 ([facility]) NEGATIVE NEGATIVE HEPATITIS B CORE ANTIBODY IGM eCW1 ([facility]) NEGATIVE NEGATIVE HEPATITIS A ANTIBODY IGM eCW1 ([facility]) NEGATIVE NEGATIVE HEPATITIS B SURFACE ANTIG EN eCW1 ([facility]) ID Date Data Source FERRITIN 06/29/2021 12:00:00 AM EDT eCW1 ([facility]) Name Value Range Interpretation Code Description Data Viviana rce(s) Supporting Document(s) 39 8-252 FERRITIN eCW1 ([facility]) ID Date Data Source LIVER PROFILE 02/17/2021 12:00:00 AM EDT eCW1 ([facility]) Name Value Range Interpretation Code Description Data Viviana rce(s) Supporting Document(s) 35 7-37 AST/SGOT eCW1 ([facility]) 93 45-117 ALKALINE PHOSPHATASE eCW1 ([facility]) 45 12-78 ALT/SGPT eCW1 ([facility]) 0.3 0.2-1.0 BILIRUBIN,TOTAL eCW1 ([facility]) 6.0 6.4-8.2 TOTAL PROTEIN eCW1 ([facility]) 3.4 3.2-5.2 ALBUMIN eCW1 ([facility]) < 0.1 0.0-0.2 BILIRUBIN,DIRECT eCW1 ([facility]) 1.3 1.2-2.2 ALBUMIN/GLOBULIN RATIO eCW1 ([facility]) ID Date Data Source [id number] 02/17/2021 12:00:00 AM EDT eCW1 ([facility]) Name Value Range Interpretation Code Description Data Viviana rce(s) Supporting Document(s) Microalbumin/Creatinine [Mass Ratio] in Urine 93.8 CREATININE, URINE eCW1 ([facility]) Microalbumin/Creatinine [Ratio] in Urine 5.3 0.0-30.0 SULEMAN/CREAT RATIO eCW1 ([facility]) Albumin/Creatinine [Mass Ratio] in Urine < 5.0 MALB URINE SIEMENS eCW1 ([facility]) ID Date Data Source UA URINALYSIS 02/17/2021 12:00:00 AM EDT eCW1 ([facility]) Name Value Range Interpretation Code Description Data Viviana rce(s) Supporting Document(s) UA URINALYSIS eCW1 ([facility]) ID Date Data Source Basic Metabolic Profile (BMP) 02/17/2021 12:00:00 AM EDT eCW 1 ([facility]) Name Value Range Interpretation Code Description Data Viviana rce(s) Supporting Document(s) 13 7-18 BLOOD UREA NITROGEN eCW1 ([facility]) 116 70-100 GLUCOSE, FASTING eCW1 ([facility]) > 60.0 >45 GLOMERULAR FILTRATION RATE eCW 1 ([facility]) 141 136-145 SODIUM LEVEL eCW1 ([facility]) 0.57 0.55-1.30 CREATININE FOR GFR eCW1 ([facility]) 4.1 3.5-5.1 POTASSIUM SERUM eCW1 ([facility]) 107 98-107 CHLORIDE LEVEL eCW1 ([facility]) 8.3 8.8-10.2 CALCIUM LEVEL eCW1 ([facility]) 29 21-32 CARBON DIOXIDE LEVEL eCW1 ([facility]) ID Date Data Source CBC - Complete Blood Count 02/17/2021 12:00:00 AM EDT eCW1 ( [facility]) Name Value Range Interpretation Code Description Data Viviana rce(s) Supporting Document(s) 5.0 4.0-10.0 WHITE BLOOD COUNT eCW1 ([facility]) 4.27 4.00-5.40 RED BLOOD COUNT eCW1 ([facility]) 13.0 12.0-15.5 HEMOGLOBIN eCW1 ([facility]) 40.4 36.0-47.0 HEMATOCRIT eCW1 ([facility]) 94.6 80.0-96.0 MEAN CORPUSCULAR VOLUME e CW1 ([facility]) 30.4 27.0-33.0 MEAN CORPUSCULAR HEMOGLOB IN eCW1 ([facility]) 32.2 32.0-36.5 MEAN CORPUSCULAR HGB CONC eCW1 ([facility]) 12.4 11.5-14.5 RED CELL DISTRIBUTION WID TH eCW1 ([facility]) 229 150-450 PLATELET COUNT, AUTOMATED eCW1 ([facility]) ID Date Data Source ALBUMIN 02/17/2021 12:00:00 AM EDT eCW1 ([facility]) Name Value Range Interpretation Code Description Data Viviana rce(s) Supporting Document(s) 3.4 3.2-5.2 ALBUMIN eCW1 ([facility]) ID Date Data Source [id number] 01/28/2021 11:42:00 AM EDT MEDENT ([facility], ) Name Value Range Interpretation Code Description Data Viviana rce(s) Supporting Document(s) Surgical pathology study Laboratory test result MEDENT ([facility], ) FINAL DIAGNOSIS A-Gastric fundus ulcer, biopsy: [...] microvillus inclusion disease or microorganisms. 01/31/2021 - 1133 CLINICAL DIAGNOSIS Epigastric pain, chronic diarrhea 01/28/2021 - 1451 GROSS DIAGNOSIS A - Received in formalin [...] stain. All in one. -OA 01/28/2021 - 1451 Signed CLAUDIA LEAL MD 01/31/2021 1134 ID Date Data Source [id number] 01/23/2021 08:45:00 AM EDT [facility] Name Value Range Interpretation Code Description Data Viviana rce(s) Supporting Document(s) SARS-CoV-2 (COVID-19) RNA [Presence] in Respiratory specimen by JARRETT with probe detection Not Detected [facility] This lab was ordered by [facility] and reported by [facility]. ID Date Data Source [id number] 01/20/2021 12:53:00 PM EDT MEDENT ([facility]) Name Value Range Interpretation Code Description Data Viviana rce(s) Supporting Document(s) Platelets 225 150-450 MEDENT ([facility]) Red Blood Count 4.62 4.00-5.40 MED[facility] ([facility]) White Blood Count 4.5 4.0-10.0 MEDENT ([facility]) Hemoglobin 14.1 MEDENT ([facility]) Hematocrit 43.6 MEDENT ([facility]) ID Date Data Source [id number] 01/20/2021 12:53:00 PM EDT MEDENT ([facility]) Name Value Range Interpretation Code Description Data Viviana rce(s) Supporting Document(s) Troponin Laboratory test result MEDENT ([facility]) Thyroid Stimulating Hormone 2.300 ME DENT ([facility]) Lipoprotein lipase [Enzymatic activity/volume] in Serum or Plasma 72 MEDENT ([facility]) Free T4 0.96 MEDENT ([facility]) ID Date Data Source [id number] 01/20/2021 12:53:00 PM EDT MEDENT ([facility]) Name Value Range Interpretation Code Description Data Viviana rce(s) Supporting Document(s) CPK-MB 1.6 MEDENT ([facility]) Creatine kinase [Enzymatic activity/volume] in Serum or Plasma 73 MEDENT ([facility]) ID Date Data Source [id number] 01/20/2021 12:53:00 PM EDT MEDENT ([facility]) Name Value Range Interpretation Code Description Data Viviana rce(s) Supporting Document(s) Albumin [Mass/volume] in Serum or Plasma 3.5 MEDENT ([facility]) Alanine aminotransferase [Enzymatic activity/volume] in Serum or Pl asma 56 MEDENT ([facility]) Calcium [Mass/volume] in Serum or Plasma 9.2 MEDENT ([facility]) Carbon dioxide, total [Moles/volume] in Serum or Plasma 29 MEDENT ([facility]) Chloride [Moles/volume] in Serum or Plasma 106 MEDENT ([facility]) Alkaline phosphatase [Enzymatic activity/volume] in Serum or Plasma 1 05 MEDENT ([facility]) Protein [Mass/volume] in Serum or Plasma 6.6 MEDENT ([facility]) Potassium [Moles/volume] in Serum or Plasma 3.9 MEDENT ([facility]) Urea nitrogen [Mass/volume] in Serum or Plasma 12 MEDENT ([facility]) Aspartate aminotransferase [Enzymatic activity/volume] in Serum or Plasma 54 MEDENT ([facility]) Sodium 141 MEDENT ([facility]) Glucose 102 70-100 MEDENT ([facility]) Creatinine For GFR 0.60 MEDENT (Car [facility]oly [facility]) ID Date Data Source [id number] 01/20/2021 11:59:00 AM EDT MEDENT ([facility]) Name Value Range Interpretation Code Description Data Viviana rce(s) Supporting Document(s) Troponin Laboratory test result MEDENT ([facility]) ID Date Data Source [id number] 01/20/2021 11:59:00 AM EDT MEDENT ([facility]) Name Value Range Interpretation Code Description Data Viviana rce(s) Supporting Document(s) CPK-MB Laboratory test result MEDENT ([facility]) Creatine kinase [Enzymatic activity/volume] in Serum or Plasma 64 MEDENT ([facility]) ID Date Data Source [id number] 01/05/2021 11:57:00 AM EDT MEDENT ([facility]) Name Value Range Interpretation Code Description Data Viviana rce(s) Supporting Document(s) Hemoglobin A1c/Hemoglobin.total in Blood 5.7 MEDENT ([facility]) ID Date Data Source [id number] 01/05/2021 11:57:00 AM EDT MEDENT ([facility]) Name Value Range Interpretation Code Description Data Viviana rce(s) Supporting Document(s) Triglycerides 278 MEDENT ([facility]) Cholesterol in LDL [Mass/volume] in Serum or Plasma by calculation 53 MEDENT ([facility]) HDL 104 [facility] Cholesterol 213 MED[facility] ([facility]) Chol/HDL Ratio 2.048 MEDENT ([facility]) ID Date Data Source GASTROINTESTINAL GI PANEL (GIPANEL) 01/05/2021 12:00:00 AM EDT eCW1 ([facility]) Name Value Range Interpretation Code Description Data Viviana rce(s) Supporting Document(s) This Gastrointestinal PCR Panel detects the following bacteria, GASTROINTESTINAL (GI) PANEL eCW1 ([facility]) ID Date Data Source LIPID PANEL (CARDIAC RISK) 01/05/2021 12:00:00 AM EDT eCW1 ( [facility]) Name Value Range Interpretation Code Description Data Viviana rce(s) Supporting Document(s) Triglyceride [Mass/volume] in Serum or Plasma by calculation 278 <150 TRIGLYCERIDES LEVEL eCW1 ([facility]) Cholesterol [Moles/volume] in Serum or Plasma 213 <200 CHOLESTEROL LEVEL eCW1 ([facility]) Cholesterol in HDL [Moles/volume] in Serum or Plasma 104 >40 HDL CHOLESTEROL eCW1 ([facility]) 109 NON-HDL-C eCW1 ([facility]) Cholesterol in LDL [Mass/volume] in Serum or Plasma by calculation 53 <100 LDL CHOLESTEROL eCW1 ([facility]) 2.048 <5 CHOLESTEROL RISK RATIO eCW1 ([facility]) ID Date Data Source HILTON 12/27/2020 12:00:00 AM EDT eCW1 ([facility]) Name Value Range Interpretation Code Description Data Viviana rce(s) Supporting Document(s) Negative Negative ANTINUCLEAR ANTIBODIES DI RECT eCW1 ([facility]) ID Date Data Source DDIMER QUANT 12/03/2020 12:00:00 AM EDT eCW1 ([facility]) Name Value Range Interpretation Code Description Data Viviana rce(s) Supporting Document(s) 273.46 <500 D-DIMER QUANT eCW1 ([facility]) ID Date Data Source Comprehensive Metabolic Profile (CMP) 12/03/2020 12:00:00 AM EDT eCW1 ([facility]) Name Value Range Interpretation Code Description Data Viviana rce(s) Supporting Document(s) 8 7-18 BLOOD UREA NITROGEN eCW1 ([facility]) 127 70-100 GLUCOSE, FASTING eCW1 ([facility]) > 60.0 >45 GLOMERULAR FILTRATION RATE eCW 1 ([facility]) 141 136-145 SODIUM LEVEL eCW1 ([facility]) 0.54 0.55-1.30 CREATININE FOR GFR eCW1 ([facility]) 104 98-107 CHLORIDE LEVEL eCW1 ([facility]) 32 21-32 CARBON DIOXIDE LEVEL eCW1 ([facility]) 3.6 3.5-5.1 POTASSIUM SERUM eCW1 ([facility]) 29 7-37 AST/SGOT eCW1 ([facility]) 9.0 8.8-10.2 CALCIUM LEVEL eCW1 ([facility]) 0.3 0.2-1.0 BILIRUBIN,TOTAL eCW1 ([facility]) 100 45-117 ALKALINE PHOSPHATASE eCW1 ([facility]) 40 12-78 ALT/SGPT eCW1 ([facility]) 6.1 6.4-8.2 TOTAL PROTEIN eCW1 ([facility]) 3.4 3.2-5.2 ALBUMIN eCW1 ([facility]) 1.3 1.2-2.2 ALBUMIN/GLOBULIN RATIO eCW1 ([facility]) ID Date Data Source [id number] 10/29/2020 11:10:00 AM EST [facility] Name Value Range Interpretation Code Description Data Viviana rce(s) Supporting Document(s) SARS coronavirus 2 RNA Not Detected [facility] [place] This lab was ordered by [facility] and reported by [facility]. ID Date Data Source PAP REQUEST FOR SERVICE 06/30/2020 10:30:27 AM EDT eCW1 ([facility]) Name Value Range Interpretation Code Description Data Viviana rce(s) Supporting Document(s) PAP REQUEST FOR SERVICE eCW1 ( [facility]) ID Date Data Source [employer] Eris Screening Bilateral (Ultrasound if Indicated ) (3D Mammo) 06/24/2020 10:45:52 AM EDT eCW1 ([facility]) Name Value Range Interpretation Code Description Data Viviana rce(s) Supporting Document(s) [employer] Eris Screening Bilat eral (Ultrasound if Indicated) (3D Mammo) eCW1 ([facility]) ID Date Data Source URINE CULTURE 06/24/2020 04:27:38 AM EDT eCW1 ([facility]) Name Value Range Interpretation Code Description Data Viviana rce(s) Supporting Document(s) Laboratory studies (set) URINE CULTU RE eCW1 ([facility]) ID Date Data Source Urinalysis, no micro 06/23/2020 05:26:06 AM EDT eCW1 ([facility]) Name Value Range Interpretation Code Description Data Viviana rce(s) Supporting Document(s) neg Nitrate eCW1 ([facility]) 7 pH eCW1 ([facility]) neg Leukocyte eCW1 ([facility]) 1.005 Spec gravity eCW1 ([facility]) neg Ketones eCW1 ([facility]) trace Protein eCW1 ([facility]) nml Glucose eCW1 ([facility]) yes Internal QC Acceptable (Y/N) e CW1 ([facility]) neg Urobili eCW1 ([facility]) neg Bilirubin eCW1 ([facility]) trace Blood eCW1 ([facility]) Procedure Social History Code Duration Value Status Description Data Source(s ) Smoking 07/21/2021 12:00:00 AM EST Former Smoker completed Former Smoker eCW1 ([facility]) Smoking 07/21/2021 12:00:00 AM EST Former Smoker completed Former Smoker eCW1 ([facility]) Smoking 07/06/2021 12:00:00 AM EDT Former Smoker completed Former Smoker eCW1 ([facility]) Smoking 07/06/2021 12:00:00 AM EDT Former Smoker completed Former Smoker eCW1 ([facility]) Smoking 06/29/2021 12:00:00 AM EDT Former Smoker completed Former Smoker eCW1 ([facility]) Smoking 06/29/2021 12:00:00 AM EDT Former Smoker completed Former Smoker eCW1 ([facility]) Smoking 06/29/2021 12:00:00 AM EDT Former Smoker completed Former Smoker eCW1 ([facility]) Smoking 06/29/2021 12:00:00 AM EDT Former Smoker completed Former Smoker eCW1 ([facility]) Smoking 06/29/2021 12:00:00 AM EDT Former Smoker completed Former Smoker eCW1 ([facility]) Smoking 06/20/2021 12:00:00 AM EDT Former Smoker completed Former Smoker eCW1 ([facility]) Smoking 06/20/2021 12:00:00 AM EDT Former Smoker completed Former Smoker eCW1 ([facility]) Smoking 06/13/2021 12:00:00 AM EDT Patient is a former smoker completed Patient is a former smoker MEDENT ([facility] ) Smoking 06/01/2021 12:00:00 AM EDT Former Smoker completed Former Smoker eCW1 ([facility]) Smoking 06/01/2021 12:00:00 AM EDT Former Smoker completed Former Smoker eCW1 ([facility]) Smoking 06/01/2021 12:00:00 AM EDT Former Smoker completed Former Smoker eCW1 ([facility]) Smoking 06/01/2021 12:00:00 AM EDT Former Smoker completed Former Smoker eCW1 ([facility]) Smoking 06/01/2021 12:00:00 AM EDT Former Smoker completed Former Smoker eCW1 ([facility]) Smoking 05/30/2021 12:00:00 AM EDT Former Smoker completed Former Smoker eCW1 ([facility]) Smoking 05/30/2021 12:00:00 AM EDT Former Smoker completed Former Smoker eCW1 ([facility]) Smoking 05/26/2021 12:00:00 AM EDT Former Smoker completed Former Smoker eCW1 ([facility]) Smoking 05/26/2021 12:00:00 AM EDT Former Smoker completed Former Smoker eCW1 ([facility]) Smoking 03/23/2021 12:00:00 AM EDT Former Smoker completed Former Smoker eCW1 ([facility]) Smoking 03/23/2021 12:00:00 AM EDT Former Smoker completed Former Smoker eCW1 ([facility]) Smoking 03/23/2021 12:00:00 AM EDT Former Smoker completed Former Smoker eCW1 ([facility]) Smoking 03/23/2021 12:00:00 AM EDT Former Smoker completed Former Smoker eCW1 ([facility]) Smoking 03/23/2021 12:00:00 AM EDT Former Smoker completed Former Smoker eCW1 ([facility]) Smoking 03/23/2021 12:00:00 AM EDT Former Smoker completed Former Smoker eCW1 ([facility]) Smoking 03/23/2021 12:00:00 AM EDT Former Smoker completed Former Smoker eCW1 ([facility]) Smoking 03/16/2021 12:00:00 AM EDT Former Smoker completed Former Smoker eCW1 ([facility]) Smoking 03/16/2021 12:00:00 AM EDT Former Smoker completed Former Smoker eCW1 ([facility]) Smoking 03/04/2021 12:00:00 AM EDT Former Smoker completed Former Smoker eCW1 ([facility]) Smoking 03/04/2021 12:00:00 AM EDT Former Smoker completed Former Smoker eCW1 ([facility]) Smoking 03/04/2021 12:00:00 AM EDT Former Smoker completed Former Smoker eCW1 ([facility]) Smoking 02/19/2021 12:00:00 AM EDT Former Smoker completed Former Smoker eCW1 ([facility]) Smoking 02/19/2021 12:00:00 AM EDT Former Smoker completed Former Smoker eCW1 ([facility]) Smoking 02/19/2021 12:00:00 AM EDT Former Smoker completed Former Smoker eCW1 ([facility]) Smoking 02/15/2021 12:00:00 AM EDT Non Smoker completed Non Smoke r MEDENT ([facility] ) Smoking 02/09/2021 12:00:00 AM EDT Former Smoker completed Former Smoker eCW1 ([facility]) Smoking 02/09/2021 12:00:00 AM EDT Former Smoker completed Former Smoker eCW1 ([facility]) Smoking 02/04/2021 12:00:00 AM EDT Former Smoker completed Former Smoker eCW1 ([facility]) Smoking 02/04/2021 12:00:00 AM EDT Former Smoker completed Former Smoker eCW1 ([facility]) Smoking 02/02/2021 12:00:00 AM EDT Patient is a former smoker completed Patient is a former smoker MEDENT ([facility]) Smoking 01/21/2021 12:00:00 AM EDT Former Smoker completed Former Smoker eCW1 ([facility]) Smoking 01/21/2021 12:00:00 AM EDT Former Smoker completed Former Smoker eCW1 ([facility]) Smoking 01/21/2021 12:00:00 AM EDT Former Smoker completed Former Smoker eCW1 ([facility]) Smoking 01/21/2021 12:00:00 AM EDT Former Smoker completed Former Smoker eCW1 ([facility]) Smoking 01/17/2021 12:00:00 AM EDT Former Smoker completed Former Smoker eCW1 ([facility]) Smoking 01/06/2021 12:00:00 AM EDT Former Smoker completed Former Smoker eCW1 ([facility]) Smoking 01/06/2021 12:00:00 AM EDT Former Smoker completed Former Smoker eCW1 ([facility]) Smoking 01/06/2021 12:00:00 AM EDT Former Smoker completed Former Smoker eCW1 ([facility]) Smoking 01/06/2021 12:00:00 AM EDT Former Smoker completed Former Smoker eCW1 ([facility]) Smoking 01/05/2021 12:00:00 AM EDT Former Smoker completed Former Smoker eCW1 ([facility]) Smoking 01/05/2021 12:00:00 AM EDT Former Smoker completed Former Smoker eCW1 ([facility]) Smoking 01/05/2021 12:00:00 AM EDT Former Smoker completed Former Smoker eCW1 ([facility]) Smoking 12/29/2020 12:00:00 AM EDT Former Smoker completed Former Smoker eCW1 ([facility]) Smoking 12/29/2020 12:00:00 AM EDT Former Smoker completed Former Smoker eCW1 ([facility]) Smoking 12/26/2020 12:00:00 AM EDT Former Smoker completed Former Smoker eCW1 ([facility]) Smoking 12/20/2020 12:00:00 AM EDT Former Smoker completed Former Smoker eCW1 ([facility]) Smoking 12/20/2020 12:00:00 AM EDT Former Smoker completed Former Smoker eCW1 ([facility]) Smoking 12/20/2020 12:00:00 AM EDT Former Smoker completed Former Smoker eCW1 ([facility]) Smoking 12/20/2020 12:00:00 AM EDT Former Smoker completed Former Smoker eCW1 ([facility]) Smoking 12/02/2020 12:00:00 AM EDT Former Smoker completed Former Smoker eCW1 ([facility]) Smoking 12/02/2020 12:00:00 AM EDT Former Smoker completed Former Smoker eCW1 ([facility]) Smoking 12/02/2020 12:00:00 AM EDT Former Smoker completed Former Smoker eCW1 ([facility]) Smoking 12/02/2020 12:00:00 AM EDT Former Smoker completed Former Smoker eCW1 ([facility]) Smoking 12/02/2020 12:00:00 AM EDT Former Smoker completed Former Smoker eCW1 ([facility]) Smoking 12/02/2020 12:00:00 AM EDT Former Smoker completed Former Smoker eCW1 ([facility]) Smoking 11/25/2020 12:00:00 AM EDT Former Smoker completed Former Smoker eCW1 ([facility]) Smoking 11/25/2020 12:00:00 AM EDT Former Smoker completed Former Smoker eCW1 ([facility]) Smoking 11/25/2020 12:00:00 AM EDT Former Smoker completed Former Smoker eCW1 ([facility]) Smoking 11/25/2020 12:00:00 AM EDT Former Smoker completed Former Smoker eCW1 ([facility]) Smoking 11/25/2020 12:00:00 AM EDT Former Smoker completed Former Smoker eCW1 ([facility]) Smoking 11/03/2020 12:00:00 AM EST Former Smoker completed Former Smoker eCW1 ([facility]) Smoking 11/03/2020 12:00:00 AM EST Former Smoker completed Former Smoker eCW1 ([facility]) Smoking 11/03/2020 12:00:00 AM EST Former Smoker completed Former Smoker eCW1 ([facility]) Smoking 11/03/2020 12:00:00 AM EST Former Smoker completed Former Smoker eCW1 ([facility]) Smoking 11/03/2020 12:00:00 AM EST Former Smoker completed Former Smoker eCW1 ([facility]) Smoking 08/30/2020 12:00:00 AM EST Former Smoker completed Former Smoker eCW1 ([facility]) Smoking 08/30/2020 12:00:00 AM EST Former Smoker completed Former Smoker eCW1 ([facility]) Smoking 08/30/2020 12:00:00 AM EST Former Smoker completed Former Smoker eCW1 ([facility]) Smoking 08/18/2020 12:00:00 AM EST Former Smoker completed Former Smoker eCW1 ([facility]) Smoking 07/29/2020 12:00:00 AM EST Former Smoker completed Former Smoker eCW1 ([facility]) Smoking 07/29/2020 12:00:00 AM EST Former Smoker completed Former Smoker eCW1 ([facility]) Smoking 07/29/2020 12:00:00 AM EST Former Smoker completed Former Smoker eCW1 ([facility]) Smoking 07/29/2020 12:00:00 AM EST Former Smoker completed Former Smoker eCW1 ([facility]) Smoking 07/09/2020 12:00:00 AM EDT Former Smoker completed Former Smoker eCW1 ([facility]) Smoking 07/09/2020 12:00:00 AM EDT Former Smoker completed Former Smoker eCW1 ([facility]) Smoking 07/09/2020 12:00:00 AM EDT Former Smoker completed Former Smoker eCW1 ([facility]) Smoking 07/09/2020 12:00:00 AM EDT Former Smoker completed Former Smoker eCW1 ([facility]) Smoking 06/24/2020 12:00:00 AM EDT Patient has never smoked co mpleted Patient has never smoked MEDENT ([facility] ) Smoking 06/23/2020 12:00:00 AM EDT Former Smoker completed Former Smoker eCW1 ([facility]) Smoking 06/18/2020 12:00:00 AM EDT Former Smoker completed Former Smoker eCW1 ([facility]) Smoking 06/18/2020 12:00:00 AM EDT Former Smoker completed Former Smoker eCW1 ([facility]) Smoking 06/18/2020 12:00:00 AM EDT Former Smoker completed Former Smoker eCW1 ([facility]) Vital Signs ID Date Data Source UNK Name Value Range Interpretation Code Description Data Source(s) Body weight 176 [lb_av] 176 [lb_av] eCW1 ([facility]) Body weight 79.83 kg 79.83 kg eCW1 ([facility]) Body height 60 [in_i] 60 [in_i] eCW1 ([facility]) Body mass index (BMI) [Ratio] 34.37 kg/m2 34.37 kg/m2 eCW1 ([facility]) Heart rate 77 /min 77 /min eCW1 ([facility]) Respiratory rate 18 /min 18 /min eCW1 ([facility]) Body temperature 97.6 [degF] 97.6 [degF] eCW1 ( [facility]) Systolic blood pressure 120 mm[Hg] 120 mm[Hg] e CW1 ([facility]) Diastolic blood pressure 76 mm[Hg] 76 mm[Hg] eCW1 ([facility]) Body mass index (BMI) [Ratio] 33.90 kg/m2 33.90 kg/m2 eCW1 ([facility]) Heart rate 106 /min 106 /min eCW1 ([facility]) Respiratory rate 18 /min 18 /min eCW1 ([facility]) Body temperature 97.2 [degF] 97.2 [degF] eCW1 ( [facility]) Systolic blood pressure 122 mm[Hg] 122 mm[Hg] e CW1 ([facility]) Diastolic blood pressure 82 mm[Hg] 82 mm[Hg] eCW1 ([facility]) Body weight 173.6 [lb_av] 173.6 [lb_av] eCW1 ([facility]) Body weight 78.74 kg 78.74 kg eCW1 ([facility]) Body height 60 [in_i] 60 [in_i] eCW1 ([facility]) Body weight 172.0 [lb_av] 172.0 [lb_av] eCW1 ([facility]) Body weight 78.02 kg 78.02 kg eCW1 ([facility]) Body height 60 [in_i] 60 [in_i] eCW1 ([facility]) Body mass index (BMI) [Ratio] 33.59 kg/m2 33.59 kg/m2 W1 ([facility]) Systolic blood pressure 116 mm[Hg] 116 mm[Hg] e CW1 ([facility]) Diastolic blood pressure 72 mm[Hg] 72 mm[Hg] eCW1 ([facility]) Systolic blood pressure 134 mm[Hg] 134 mm[Hg] M EDENT ([facility], ) Diastolic blood pressure 70 mm[Hg] 70 mm[Hg] MEDENT ([facility], ) Heart rate 58 /min 58 /min MEDENT ([facility], ) Oxygen saturation in Arterial blood by Pulse oximetry 97 % 97 % MEDENT ([facility], ) Body height 58 [in_i] 58 [in_i] MEDONDINA ([facility], ) 4'10" Body weight 174.00 [lb_av] 174.00 [lb_av] MEDEN T ([facility]) Body mass index (BMI) [Ratio] 36.4 kg/m2 36.4 k g/m2 MEDENT ([facility]) [place] body weight 100 [lb_av] 100 [lb_av] MEDEN T ([facility]) Body weight 78.926 kg 78.926 kg MEDENT ([facility]) Body surface area Derived from formula 1.72 m2 1.72 m2 MEDENT ([facility]) Body weight 176.12 [lb_av] 176.12 [lb_av] MEDEN T ([facility]) Body height 61 [in_i] 61 [in_i] MEDENT ([facility]) 5'1" Heart rate 71 /min 71 /min MEDENT ([facility]) Respiratory rate 18 /min 18 /min MEDENT ( [facility]) Systolic blood pressure 90 mm[Hg] 90 mm[Hg] M EDENT ([facility]) Diastolic blood pressure 57 mm[Hg] 57 mm[Hg] MEDENT ([facility] Body mass index (BMI) [Ratio] 33.3 kg/m2 33.3 k g/m2 MEDENT ([facility] Body weight 168.6 [lb_av] 168.6 [lb_av] eCW1 ([facility]) Body weight 76.48 kg 76.48 kg W1 ([facility]) Body height 60 [in_i] 60 [in_i] eCW1 ([facility]) Body mass index (BMI) [Ratio] 32.92 kg/m2 32.92 kg/m2 eCW1 ([facility]) Systolic blood pressure 118 mm[Hg] 118 mm[Hg] e CW1 ([facility]) Diastolic blood pressure 70 mm[Hg] 70 mm[Hg] eCW1 ([facility]) Body weight 176.2 [lb_av] 176.2 [lb_av] eCW1 ([facility]) Body weight 79.92 kg 79.92 kg eCW1 ([facility]) Body height 60 [in_i] 60 [in_i] eCW1 ([facility]) Body mass index (BMI) [Ratio] 34.41 kg/m2 34.41 kg/m2 eCW1 ([facility]) Heart rate 89 /min 89 /min eCW1 ([facility]) Respiratory rate 18 /min 18 /min eCW1 ([facility]) Body temperature 97.4 [degF] 97.4 [degF] eCW1 ( [facility]) Systolic blood pressure 116 mm[Hg] 116 mm[Hg] e CW1 ([facility]) Diastolic blood pressure 70 mm[Hg] 70 mm[Hg] eCW1 ([facility]) Body weight 176.8 [lb_av] 176.8 [lb_av] eCW1 ([facility]) Body weight 80.2 kg 80.2 kg eCW1 ([facility]) Body height 60 [in_i] 60 [in_i] eCW1 ([facility]) Body mass index (BMI) [Ratio] 34.53 kg/m2 34.53 kg/m2 eCW1 ([facility]) Heart rate 68 /min 68 /min eCW1 ([facility]) Respiratory rate 18 /min 18 /min eCW1 ([facility]) Body temperature 98.1 [degF] 98.1 [degF] eCW1 ( [facility]) Systolic blood pressure 115 mm[Hg] 115 mm[Hg] e CW1 ([facility]) Diastolic blood pressure 67 mm[Hg] 67 mm[Hg] eCW1 ([facility]) Body weight 174.2 [lb_av] 174.2 [lb_av] eCW1 ([facility]) Body weight 79.02 kg 79.02 kg eCW1 ([facility]) Body height 60 [in_i] 60 [in_i] eCW1 ([facility]) Body mass index (BMI) [Ratio] 34.02 kg/m2 34.02 kg/m2 eCW1 ([facility]) Heart rate 94 /min 94 /min eCW1 ([facility]) Respiratory rate 18 /min 18 /min eCW1 ([facility]) Body temperature 97.8 [degF] 97.8 [degF] eCW1 ( [facility]) Systolic blood pressure 118 mm[Hg] 118 mm[Hg] e CW1 ([facility]) Diastolic blood pressure 64 mm[Hg] 64 mm[Hg] eCW1 ([facility]) Body weight 173.8 [lb_av] 173.8 [lb_av] eCW1 ([facility]) Body height 60 [in_i] 60 [in_i] eCW1 ([facility]) Body mass index (BMI) [Ratio] 33.94 kg/m2 33.94 kg/m2 eCW1 ([facility]) Heart rate 70 /min 70 /min eCW1 ([facility]) Respiratory rate 18 /min 18 /min eCW1 ([facility]) Body temperature 98.3 [degF] 98.3 [degF] eCW1 ( [facility]) Systolic blood pressure 117 mm[Hg] 117 mm[Hg] e CW1 ([facility]) Diastolic blood pressure 60 mm[Hg] 60 mm[Hg] eCW1 ([facility]) Body weight 175.80 [lb_av] 175.80 [lb_av] eCW1 ([facility]) Body height 60 [in_i] 60 [in_i] eCW1 ([facility]) Body mass index (BMI) [Ratio] 34.33 kg/m2 34.33 kg/m2 eCW1 ([facility]) Heart rate 84 /min 84 /min eCW1 ([facility]) Respiratory rate 18 /min 18 /min eCW1 ([facility]) Body temperature 97.7 [degF] 97.7 [degF] eCW1 ( [facility]) Systolic blood pressure 112 mm[Hg] 112 mm[Hg] e CW1 ([facility]) Diastolic blood pressure 70 mm[Hg] 70 mm[Hg] eCW1 ([facility]) Body weight 172.4 [lb_av] 172.4 [lb_av] eCW1 ([facility]) Body height 60 [in_i] 60 [in_i] eCW1 ([facility]) Body mass index (BMI) [Ratio] 33.67 kg/m2 33.67 kg/m2 eCW1 ([facility]) Heart rate 82 /min 82 /min eCW1 ([facility]) Respiratory rate 18 /min 18 /min eCW1 ([facility]) Body temperature 96.4 [degF] 96.4 [degF] eCW1 ( [facility]) Systolic blood pressure 122 mm[Hg] 122 mm[Hg] e CW1 ([facility]) Diastolic blood pressure 80 mm[Hg] 80 mm[Hg] eCW1 ([facility]) Systolic blood pressure 118 mm[Hg] 118 mm[Hg] e CW1 ([facility]) Diastolic blood pressure 70 mm[Hg] 70 mm[Hg] eCW1 ([facility]) Body weight 175.6 [lb_av] 175.6 [lb_av] eCW1 ([facility]) Body height 60 [in_i] 60 [in_i] eCW1 ([facility]) Body mass index (BMI) [Ratio] 34.29 kg/m2 34.29 kg/m2 eCW1 ([facility]) Heart rate 82 /min 82 /min eCW1 ([facility]) Respiratory rate 18 /min 18 /min eCW1 ([facility]) Body temperature 96.5 [degF] 96.5 [degF] eCW1 ( [facility]) Body weight 174.4 [lb_av] 174.4 [lb_av] eCW1 ([facility]) Body height 60 [in_i] 60 [in_i] eCW1 ([facility]) Body mass index (BMI) [Ratio] 34.06 kg/m2 34.06 kg/m2 eCW1 ([facility]) Heart rate 72 /min 72 /min eCW1 ([facility]) Respiratory rate 18 /min 18 /min eCW1 ([facility]) Body temperature 98.5 [degF] 98.5 [degF] eCW1 ( [facility]) Systolic blood pressure 121 mm[Hg] 121 mm[Hg] e CW1 ([facility]) Diastolic blood pressure 75 mm[Hg] 75 mm[Hg] eCW1 ([facility]) Systolic blood pressure 102 mm[Hg] 102 mm[Hg] M EDENT ([facility], ) Diastolic blood pressure 60 mm[Hg] 60 mm[Hg] MEDENT ([facility]) Body height 58 [in_i] 58 [in_i] MEDENT ([facility]) 4'10" Body weight 175.00 [lb_av] 175.00 [lb_av] MEDEN T ([facility]) Body mass index (BMI) [Ratio] 36.6 kg/m2 36.6 k g/m2 [facility] ([facility]) [place] body weight 100 [lb_av] 100 [lb_av] [facility] ([facility]) Body weight 79.380 kg 79.380 kg [facility] ([facility]) Body surface area Derived from formula 1.72 m2 1.72 m2 [facility] ([facility]) Body height 58 [in_i] 58 [in_i] MEDENT ([facility]) 4'10" [place] body weight 100 [lb_av] 100 [lb_av] MEDEN T ([facility]) Body weight 177.2 [lb_av] 177.2 [lb_av] eCW1 ([facility]) Body height 60 [in_i] 60 [in_i] eCW1 ([facility]) Body mass index (BMI) [Ratio] 34.60 kg/m2 34.60 kg/m2 eCW1 ([facility]) Heart rate 74 /min 74 /min eCW1 ([facility]) Respiratory rate 18 /min 18 /min eCW1 ([facility]) Body temperature 973 [degF] 973 [degF] eCW1 ([facility]) Systolic blood pressure 112 mm[Hg] 112 mm[Hg] e CW1 ([facility]) Diastolic blood pressure 72 mm[Hg] 72 mm[Hg] eCW1 ([facility]) Systolic blood pressure 122 mm[Hg] 122 mm[Hg] M EDENT ([facility]) Diastolic blood pressure 68 mm[Hg] 68 mm[Hg] MEDENT ([facility]) Heart rate 64 /min 64 /min [facility] ([facility]) Oxygen saturation in Arterial blood by Pulse oximetry 97 % 97 % [facility] ([facility]) Body height 58 [in_i] 58 [in_i] [facility] ([facility]) 4'10" Body weight 177.00 [lb_av] 177.00 [lb_av] [facility] T ([facility]) Body mass index (BMI) [Ratio] 37.0 kg/m2 37.0 k g/m2 [facility] ([facility]) [place] body weight 100 [lb_av] 100 [lb_av] [facility] ([facility]) Body weight 80.287 kg 80.287 kg [facility] ([facility]) Body surface area Derived from formula 1.73 m2 1.73 m2 [facility] ([facility]) Body weight 174.6 [lb_av] 174.6 [lb_av] eCW1 ([facility]) Body height 60 [in_i] 60 [in_i] eCW1 ([facility]) Body mass index (BMI) [Ratio] 34.10 kg/m2 34.10 kg/m2 W1 ([facility]) Systolic blood pressure 110 mm[Hg] 110 mm[Hg] e CW1 ([facility]) Diastolic blood pressure 68 mm[Hg] 68 mm[Hg] eCW1 ([facility]) Body weight 176.2 [lb_av] 176.2 [lb_av] eCW1 ([facility]) Body height 60 [in_i] 60 [in_i] eCW1 ([facility]) Body mass index (BMI) [Ratio] 34.41 kg/m2 34.41 kg/m2 eCW1 ([facility]) Heart rate 68 /min 68 /min eCW1 ([facility]) Respiratory rate 18 /min 18 /min eCW1 ([facility]) Body temperature 99.1 [degF] 99.1 [degF] eCW1 ( [facility]) Systolic blood pressure 111 mm[Hg] 111 mm[Hg] e CW1 ([facility]) Diastolic blood pressure 60 mm[Hg] 60 mm[Hg] eCW1 ([facility]) Body weight 176.00 [lb_av] 176.00 [lb_av] GIDEON T ([facility]) Body height 61 [in_i] 61 [in_i] MEDENT ([facility] 5'1" Body mass index (BMI) [Ratio] 33.3 kg/m2 33.3 k g/m2 MEDENT ([facility]) Heart rate 76 /min 76 /min MEDENT ([facility]) Systolic blood pressure--sitting 116 mm[Hg] 116 mm[Hg] MEDENT ([facility]) [employer], large cuff/Ra Diastolic blood pressure--sitting 58 mm[Hg] 58 mm[Hg] MEDENT ([facility]) [employer], large cuff/Ra Body weight 177.8 [lb_av] 177.8 [lb_av] eCW1 ([facility]) Body height 60 [in_i] 60 [in_i] eCW1 ([facility]) Body mass index (BMI) [Ratio] 34.72 kg/m2 34.72 kg/m2 eCW1 ([facility]) Heart rate 82 /min 82 /min eCW1 ([facility]) Respiratory rate 18 /min 18 /min eCW1 ([facility]) Body temperature 96.8 [degF] 96.8 [degF] eCW1 ( [facility]) Systolic blood pressure 110 mm[Hg] 110 mm[Hg] e CW1 ([facility]) Diastolic blood pressure 70 mm[Hg] 70 mm[Hg] eCW1 ([facility]) Body weight 178 [lb_av] 178 [lb_av] eCW1 ([facility]) Body height 60 [in_i] 60 [in_i] eCW1 ([facility]) Body mass index (BMI) [Ratio] 34.76 kg/m2 34.76 kg/m2 eCW1 ([facility]) Systolic blood pressure 108 mm[Hg] 108 mm[Hg] e CW1 ([facility]) Diastolic blood pressure 74 mm[Hg] 74 mm[Hg] eCW1 ([facility]) Body weight 177.8 [lb_av] 177.8 [lb_av] eCW1 ([facility]) Body height 60 [in_i] 60 [in_i] eCW1 ([facility]) Body mass index (BMI) [Ratio] 34.72 kg/m2 34.72 kg/m2 eCW1 ([facility]) Heart rate 71 /min 71 /min eCW1 ([facility]) Respiratory rate 18 /min 18 /min eCW1 ([facility]) Body temperature 97.4 [degF] 97.4 [degF] eCW1 ( [facility]) Systolic blood pressure 109 mm[Hg] 109 mm[Hg] e CW1 ([facility]) Diastolic blood pressure 79 mm[Hg] 79 mm[Hg] eCW1 ([facility]) Body weight 175.0 [lb_av] 175.0 [lb_av] eCW1 ([facility]) Body height 60 [in_i] 60 [in_i] eCW1 ([facility]) Body mass index (BMI) [Ratio] 34.17 kg/m2 34.17 kg/m2 eCW1 ([facility]) Heart rate 82 /min 82 /min eCW1 ([facility]) Respiratory rate 18 /min 18 /min eCW1 ([facility]) Body temperature 97.1 [degF] 97.1 [degF] eCW1 ( [facility]) Systolic blood pressure 120 mm[Hg] 120 mm[Hg] e CW1 ([facility]) Diastolic blood pressure 76 mm[Hg] 76 mm[Hg] eCW1 ([facility]) Body height 60 [in_i] 60 [in_i] eCW1 ([facility]) Body mass index (BMI) [Ratio] 34.37 kg/m2 34.37 kg/m2 eCW1 ([facility]) Systolic blood pressure 112 mm[Hg] 112 mm[Hg] e CW1 ([facility]) Diastolic blood pressure 70 mm[Hg] 70 mm[Hg] eCW1 ([facility]) Body weight 176 [lb_av] 176 [lb_av] eCW1 ([facility]) Body weight 175.50 [lb_av] 175.50 [lb_av] MEDEN T ([facility]) Body height 61 [in_i] 61 [in_i] MEDENT ([facility] 5'1" Heart rate 66 /min 66 /min MEDENT ([facility] Respiratory rate 16 /min 16 /min MEDENT [...] Body weight 177.4 [lb_av] 177.4 [lb_av] eCW1 ([facility]) Body height 60 [in_i] 60 [in_i] eCW1 ([facility]) Body mass index (BMI) [Ratio] 34.64 kg/m2 34.64 kg/m2 eCW1 ([facility]) Heart rate 73 /min 73 /min eCW1 ([facility]) Respiratory rate 18 /min 18 /min eCW1 ([facility]) Body temperature 95.7 [degF] 95.7 [degF] eCW1 ( [facility]) Systolic blood pressure 110 mm[Hg] 110 mm[Hg] e CW1 ([facility]) Diastolic blood pressure 70 mm[Hg] 70 mm[Hg] eCW1 ([facility]) Body weight 174.2 [lb_av] 174.2 [lb_av] eCW1 ([facility]) Body height 60 [in_i] 60 [in_i] eCW1 ([facility]) Body mass index (BMI) [Ratio] 34.02 kg/m2 34.02 kg/m2 eCW1 ([facility]) Heart rate 89 /min 89 /min eCW1 ([facility]) Respiratory rate 17 /min 17 /min eCW1 ([facility]) Body temperature 98.8 [degF] 98.8 [degF] eCW1 ( [facility]) Systolic blood pressure 102 mm[Hg] 102 mm[Hg] e CW1 ([facility]) Diastolic blood pressure 62 mm[Hg] 62 mm[Hg] eCW1 ([facility]) Body weight 177.6 [lb_av] 177.6 [lb_av] eCW1 ([facility]) Body height 60 [in_i] 60 [in_i] eCW1 ([facility]) Body mass index (BMI) [Ratio] 34.68 kg/m2 34.68 kg/m2 eCW1 ([facility]) Heart rate 78 /min 78 /min eCW1 ([facility]) Respiratory rate 16 /min 16 /min eCW1 ([facility]) Body temperature 97.8 [degF] 97.8 [degF] eCW1 ( [facility]) Systolic blood pressure 108 mm[Hg] 108 mm[Hg] e CW1 ([facility]) Diastolic blood pressure 56 mm[Hg] 56 mm[Hg] eCW1 ([facility]) Body weight 174 [lb_av] 174 [lb_av] eCW1 ([facility]) Body height 60 [in_i] 60 [in_i] eCW1 ([facility]) Body mass index (BMI) [Ratio] 33.98 kg/m2 33.98 kg/m2 eCW1 ([facility]) Heart rate 89 /min 89 /min eCW1 ([facility]) Respiratory rate 18 /min 18 /min eCW1 ([facility]) Body temperature 97.4 [degF] 97.4 [degF] eCW1 ( [facility]) Systolic blood pressure 132 mm[Hg] 132 mm[Hg] e CW1 ([facility]) Diastolic blood pressure 76 mm[Hg] 76 mm[Hg] eCW1 ([facility]) Body weight 171 [lb_av] 171 [lb_av] eCW1 ([facility]) Body height 60 [in_i] 60 [in_i] eCW1 ([facility]) Body mass index (BMI) [Ratio] 33.39 kg/m2 33.39 kg/m2 eCW1 ([facility]) Heart rate 82 /min 82 /min eCW1 ([facility]) Respiratory rate 18 /min 18 /min eCW1 ([facility]) Body temperature 97.8 [degF] 97.8 [degF] eCW1 ( [facility]) Systolic blood pressure 110 mm[Hg] 110 mm[Hg] e CW1 ([facility]) Diastolic blood pressure 70 mm[Hg] 70 mm[Hg] eCW1 ([facility]) Body weight 177.6 [lb_av] 177.6 [lb_av] eCW1 ([facility]) Body height 60 [in_i] 60 [in_i] eCW1 ([facility]) Body mass index (BMI) [Ratio] 34.68 kg/m2 34.68 kg/m2 eCW1 ([facility]) Heart rate 74 /min 74 /min eCW1 ([facility]) Respiratory rate 18 /min 18 /min eCW1 ([facility]) Body temperature 97.6 [degF] 97.6 [degF] eCW1 ( [facility]) Systolic blood pressure 126 mm[Hg] 126 mm[Hg] e CW1 ([facility]) Diastolic blood pressure 58 mm[Hg] 58 mm[Hg] eCW1 ([facility]) Body weight 172.6 [lb_av] 172.6 [lb_av] eCW1 ([facility]) Body height 60 [in_i] 60 [in_i] eCW1 ([facility]) Body mass index (BMI) [Ratio] 33.70 kg/m2 33.70 kg/m2 eCW1 ([facility]) Heart rate 96 /min 96 /min eCW1 ([facility]) Respiratory rate 18 /min 18 /min eCW1 ([facility]) Body temperature 98.1 [degF] 98.1 [degF] eCW1 ( [facility]) Systolic blood pressure 128 mm[Hg] 128 mm[Hg] e CW1 ([facility]) Diastolic blood pressure 80 mm[Hg] 80 mm[Hg] eCW1 ([facility]) Body weight 176.0 [lb_av] 176.0 [lb_av] eCW1 ([facility]) Body height 60 [in_i] 60 [in_i] eCW1 ([facility]) Body mass index (BMI) [Ratio] 34.37 kg/m2 34.37 kg/m2 eCW1 ([facility]) Heart rate 81 /min 81 /min eCW1 ([facility]) Respiratory rate 18 /min 18 /min eCW1 ([facility]) Body temperature 98.8 [degF] 98.8 [degF] eCW1 ( [facility]) Systolic blood pressure 111 mm[Hg] 111 mm[Hg] e CW1 ([facility]) Diastolic blood pressure 69 mm[Hg] 69 mm[Hg] eCW1 ([facility]) Body weight 170 [lb_av] 170 [lb_av] eCW1 ([facility]) Body height 60 [in_i] 60 [in_i] eCW1 ([facility]) Body mass index (BMI) [Ratio] 33.20 kg/m2 33.20 kg/m2 eCW1 ([facility]) Heart rate 100 /min 100 /min eCW1 ([facility]) Respiratory rate 18 /min 18 /min eCW1 ([facility]) Body temperature 98 [degF] 98 [degF] eCW1 ([facility]) Systolic blood pressure 136 mm[Hg] 136 mm[Hg] e CW1 ([facility]) Diastolic blood pressure 80 mm[Hg] 80 mm[Hg] eCW1 ([facility]) Systolic blood pressure 122 mm[Hg] 122 mm[Hg] M EDENT ([facility], ) Diastolic blood pressure 68 mm[Hg] 68 mm[Hg] [facility] ([facility], ) Body height 61 [in_i] 61 [in_i] [facility] ([facility], ) 5'1" Body weight 169.00 [lb_av] 169.00 [lb_av] MEDEN T ([facility], ) Body mass index (BMI) [Ratio] 31.9 kg/m2 31.9 k g/m2 [facility] ([facility], ) [place] body weight 105 [lb_av] 105 [lb_av] MEDEN T ([facility], ) Body weight 76.658 kg 76.658 kg [facility] ([facility], ) Body surface area Derived from formula 1.76 m2 1.76 m2 [facility] ([facility], ) Body weight 170.0 [lb_av] 170.0 [lb_av] eCW1 ([facility]) Body height 60 [in_i] 60 [in_i] eCW1 ([facility]) Body mass index (BMI) [Ratio] 33.20 kg/m2 33.20 kg/m2 eCW1 ([facility]) Heart rate 93 /min 93 /min eCW1 ([facility]) Respiratory rate 18 /min 18 /min eCW1 ([facility]) Body temperature 97.3 [degF] 97.3 [degF] eCW1 ( [facility]) Systolic blood pressure 120 mm[Hg] 120 mm[Hg] e CW1 ([facility]) Diastolic blood pressure 80 mm[Hg] 80 mm[Hg] eCW1 ([facility]) Body weight 171.12 [lb_av] 171.12 [lb_av] MEDEN [...] Body weight 171 [lb_av] 171 [lb_av] eCW1 ([facility]) Body height 60 [in_i] 60 [in_i] eCW1 ([facility]) Body mass index (BMI) [Ratio] 33.39 kg/m2 33.39 kg/m2 eCW1 ([facility]) Systolic blood pressure 122 mm[Hg] 122 mm[Hg] e CW1 ([facility]) Diastolic blood pressure 74 mm[Hg] 74 mm[Hg] eCW1 ([facility]) Body weight 173.4 [lb_av] 173.4 [lb_av] eCW1 ([facility]) Body height 60 [in_i] 60 [in_i] eCW1 ([facility]) Body mass index (BMI) [Ratio] 33.86 kg/m2 33.86 kg/m2 eCW1 ([facility]) Heart rate 90 /min 90 /min eCW1 ([facility]) Respiratory rate 16 /min 16 /min eCW1 ([facility]) Body temperature 97.4 [degF] 97.4 [degF] eCW1 ( [facility]) Systolic blood pressure 118 mm[Hg] 118 mm[Hg] e CW1 ([facility]) Diastolic blood pressure 64 mm[Hg] 64 mm[Hg] eCW1 ([facility]) Patient Treatment Plan of Care Planned Activity Planned Date Details Description Data Source (s) tramadol hydrochloride 50 MG Oral Tablet 07/21/2021 12:00:00 AM EST eCW1 ([facility]) pregabalin 150 MG Oral Capsule [Lyrica] 07/21/2021 12:00:00 AM EST eCW1 ([facility]) tramadol hydrochloride 50 MG Oral Tablet 07/21/2021 12:00:00 AM EST eCW1 ([facility]) pregabalin 150 MG Oral Capsule [Lyrica] 07/21/2021 12:00:00 AM EST eCW1 ([facility]) pregabalin 150 MG Oral Capsule [Lyrica] 06/30/2021 12:00:00 AM EDT eCW1 ([facility]) tramadol hydrochloride 50 MG Oral Tablet 06/30/2021 12:00:00 AM EDT eCW1 ([facility]) atorvastatin 80 MG Oral Tablet 06/30/2021 12:00:00 AM EDT eCW1 ([facility]) Metformin hydrochloride 850 MG Oral Tablet 06/30/2021 12:00:00 AM E DT eCW1 ([facility]) pregabalin 150 MG Oral Capsule [Lyrica] 06/30/2021 12:00:00 AM EDT eCW1 ([facility]) tramadol hydrochloride 50 MG Oral Tablet 06/30/2021 12:00:00 AM EDT eCW1 ([facility]) atorvastatin 80 MG Oral Tablet 06/30/2021 12:00:00 AM EDT eCW1 ([facility]) Metformin hydrochloride 850 MG Oral Tablet 06/30/2021 12:00:00 AM E DT eCW1 ([facility]) pregabalin 150 MG Oral Capsule [Lyrica] 06/30/2021 12:00:00 AM EDT eCW1 ([facility]) tramadol hydrochloride 50 MG Oral Tablet 06/30/2021 12:00:00 AM EDT eCW1 ([facility]) atorvastatin 80 MG Oral Tablet 06/30/2021 12:00:00 AM EDT eCW1 ([facility]) Metformin hydrochloride 850 MG Oral Tablet 06/30/2021 12:00:00 AM E DT eCW1 ([facility]) pregabalin 150 MG Oral Capsule [Lyrica] 06/30/2021 12:00:00 AM EDT eCW1 ([facility]) tramadol hydrochloride 50 MG Oral Tablet 06/30/2021 12:00:00 AM EDT eCW1 ([facility]) atorvastatin 80 MG Oral Tablet 06/30/2021 12:00:00 AM EDT eCW1 ([facility]) Metformin hydrochloride 850 MG Oral Tablet 06/30/2021 12:00:00 AM E DT eCW1 ([facility]) Metformin hydrochloride 850 MG Oral Tablet 06/30/2021 12:00:00 AM E DT eCW1 ([facility]) pregabalin 150 MG Oral Capsule [Lyrica] 06/30/2021 12:00:00 AM EDT eCW1 ([facility]) tramadol hydrochloride 50 MG Oral Tablet 06/30/2021 12:00:00 AM EDT eCW1 ([facility]) atorvastatin 80 MG Oral Tablet 06/30/2021 12:00:00 AM EDT eCW1 ([facility]) 8 HR Acetaminophen 650 MG Extended Release Oral Tablet 06/01/2021 12:00:00 AM EDT eCW1 ([facility]) Clobetasol Propionate 0.5 MG/ML Topical Foam 06/01/2021 12:00:00 AM EDT eCW1 ([facility]) cefdinir 300 MG Oral Capsule 06/01/2021 12:00:00 AM EDT eCW1 ([facility]) 8 HR Acetaminophen 650 MG Extended Release Oral Tablet 06/01/2021 12:00:00 AM EDT eCW1 ([facility]) Clobetasol Propionate 0.5 MG/ML Topical Foam 06/01/2021 12:00:00 AM EDT eCW1 ([facility]) cefdinir 300 MG Oral Capsule 06/01/2021 12:00:00 AM EDT eCW1 ([facility]) 8 HR Acetaminophen 650 MG Extended Release Oral Tablet 06/01/2021 12:00:00 AM EDT eCW1 ([facility]) Clobetasol Propionate 0.5 MG/ML Topical Foam 06/01/2021 12:00:00 AM EDT eCW1 ([facility]) cefdinir 300 MG Oral Capsule 06/01/2021 12:00:00 AM EDT eCW1 ([facility]) 8 HR Acetaminophen 650 MG Extended Release Oral Tablet 06/01/2021 12:00:00 AM EDT eCW1 ([facility]) Clobetasol Propionate 0.5 MG/ML Topical Foam 06/01/2021 12:00:00 AM EDT eCW1 ([facility]) cefdinir 300 MG Oral Capsule 06/01/2021 12:00:00 AM EDT eCW1 ([facility]) 8 HR Acetaminophen 650 MG Extended Release Oral Tablet 06/01/2021 12:00:00 AM EDT eCW1 ([facility]) Clobetasol Propionate 0.5 MG/ML Topical Foam 06/01/2021 12:00:00 AM EDT eCW1 ([facility]) cefdinir 300 MG Oral Capsule 06/01/2021 12:00:00 AM EDT eCW1 ([facility]) 8 HR Acetaminophen 650 MG Extended Release Oral Tablet 06/01/2021 12:00:00 AM EDT eCW1 ([facility]) Clobetasol Propionate 0.5 MG/ML Topical Foam 06/01/2021 12:00:00 AM EDT eCW1 ([facility]) cefdinir 300 MG Oral Capsule 06/01/2021 12:00:00 AM EDT eCW1 ([facility]) cefdinir 300 MG Oral Capsule 06/01/2021 12:00:00 AM EDT eCW1 ([facility]) 8 HR Acetaminophen 650 MG Extended Release Oral Tablet 06/01/2021 12:00:00 AM EDT eCW1 ([facility]) Clobetasol Propionate 0.5 MG/ML Topical Foam 06/01/2021 12:00:00 AM EDT eCW1 ([facility]) pregabalin 150 MG Oral Capsule [Lyrica] 05/26/2021 12:00:00 AM EDT eCW1 ([facility]) tramadol hydrochloride 50 MG Oral Tablet 05/26/2021 12:00:00 AM EDT eCW1 ([facility]) pregabalin 150 MG Oral Capsule [Lyrica] 05/26/2021 12:00:00 AM EDT eCW1 ([facility]) pregabalin 150 MG Oral Capsule [Lyrica] 05/26/2021 12:00:00 AM EDT eCW1 ([facility]) tramadol hydrochloride 50 MG Oral Tablet 05/26/2021 12:00:00 AM EDT eCW1 ([facility]) pregabalin 150 MG Oral Capsule [Lyrica] 05/26/2021 12:00:00 AM EDT eCW1 ([facility]) pregabalin 150 MG Oral Capsule [Lyrica] 05/26/2021 12:00:00 AM EDT eCW1 ([facility]) tramadol hydrochloride 50 MG Oral Tablet 05/26/2021 12:00:00 AM EDT eCW1 ([facility]) pregabalin 150 MG Oral Capsule [Lyrica] 05/26/2021 12:00:00 AM EDT eCW1 ([facility]) pregabalin 150 MG Oral Capsule [Lyrica] 05/26/2021 12:00:00 AM EDT eCW1 ([facility]) tramadol hydrochloride 50 MG Oral Tablet 05/26/2021 12:00:00 AM EDT eCW1 ([facility]) pregabalin 150 MG Oral Capsule [Lyrica] 05/26/2021 12:00:00 AM EDT eCW1 ([facility]) duloxetine 20 MG Delayed Release Oral Capsule 05/17/2021 12:00:00 A M EDT eCW1 ([facility]) duloxetine 20 MG Delayed Release Oral Capsule 05/17/2021 12:00:00 A M EDT eCW1 ([facility]) duloxetine 20 MG Delayed Release Oral Capsule 05/17/2021 12:00:00 A M EDT eCW1 ([facility]) duloxetine 20 MG Delayed Release Oral Capsule 05/17/2021 12:00:00 A M EDT eCW1 ([facility]) Pseudoephedrine Hydrochloride 30 MG Oral Tablet 03/16/2021 12:00:00 AM EDT eCW1 ([facility]) Amoxicillin 500 MG / Clavulanate 125 MG Oral Tablet [A ugmentin] 03/16/2021 12:00:00 AM EDT eCW1 ([facility]) Pseudoephedrine Hydrochloride 30 MG Oral Tablet 03/16/2021 12:00:00 AM EDT eCW1 ([facility]) Amoxicillin 500 MG / Clavulanate 125 MG Oral Tablet [A ugmentin] 03/16/2021 12:00:00 AM EDT eCW1 ([facility]) Bupropion Hydrochloride 75 MG Oral Tablet 02/15/2021 12:00:00 AM ED T eCW1 ([facility]) Bupropion Hydrochloride 75 MG Oral Tablet 02/15/2021 12:00:00 AM ED T eCW1 ([facility]) Bupropion Hydrochloride 75 MG Oral Tablet 02/15/2021 12:00:00 AM ED T eCW1 ([facility]) Bupropion Hydrochloride 75 MG Oral Tablet 02/15/2021 12:00:00 AM ED T eCW1 ([facility]) Bupropion Hydrochloride 75 MG Oral Tablet 02/15/2021 12:00:00 AM ED T eCW1 ([facility]) Bupropion Hydrochloride 75 MG Oral Tablet 02/15/2021 12:00:00 AM ED T eCW1 ([facility]) Bupropion Hydrochloride 75 MG Oral Tablet 02/15/2021 12:00:00 AM ED T eCW1 ([facility]) Bupropion Hydrochloride 75 MG Oral Tablet 02/15/2021 12:00:00 AM ED T eCW1 ([facility]) Bupropion Hydrochloride 75 MG Oral Tablet 02/15/2021 12:00:00 AM ED T eCW1 ([facility]) Bupropion Hydrochloride 75 MG Oral Tablet 02/15/2021 12:00:00 AM ED T eCW1 ([facility]) Bupropion Hydrochloride 75 MG Oral Tablet 02/15/2021 12:00:00 AM ED T eCW1 ([facility]) cefdinir 300 MG Oral Capsule 02/09/2021 12:00:00 AM EDT eCW1 ([facility]) cefdinir 300 MG Oral Capsule 02/09/2021 12:00:00 AM EDT eCW1 ([facility]) Aspirin 81 MG Delayed Release Oral Tablet 01/05/2021 12:00:00 AM ED T eCW1 ([facility]) Aspirin 81 MG Delayed Release Oral Tablet 01/05/2021 12:00:00 AM ED T eCW1 ([facility]) Aspirin 81 MG Delayed Release Oral Tablet 01/05/2021 12:00:00 AM ED T eCW1 ([facility]) Aspirin 81 MG Delayed Release Oral Tablet 01/05/2021 12:00:00 AM ED T eCW1 ([facility]) Aspirin 81 MG Delayed Release Oral Tablet 01/05/2021 12:00:00 AM ED T eCW1 ([facility]) atorvastatin 20 MG Oral Tablet 01/05/2021 12:00:00 AM EDT eCW1 ([facility]) Aspirin 81 MG Delayed Release Oral Tablet 01/05/2021 12:00:00 AM ED T eCW1 ([facility]) atorvastatin 20 MG Oral Tablet 01/05/2021 12:00:00 AM EDT eCW1 ([facility]) Aspirin 81 MG Delayed Release Oral Tablet 01/05/2021 12:00:00 AM ED T eCW1 ([facility]) atorvastatin 20 MG Oral Tablet 01/05/2021 12:00:00 AM EDT eCW1 ([facility]) Aspirin 81 MG Delayed Release Oral Tablet 01/05/2021 12:00:00 AM ED T eCW1 ([facility]) atorvastatin 20 MG Oral Tablet 01/05/2021 12:00:00 AM EDT eCW1 ([facility]) atorvastatin 20 MG Oral Tablet 01/05/2021 12:00:00 AM EDT eCW1 ([facility]) Aspirin 81 MG Delayed Release Oral Tablet 01/05/2021 12:00:00 AM ED T eCW1 ([facility]) Aspirin 81 MG Delayed Release Oral Tablet 01/05/2021 12:00:00 AM ED T eCW1 ([facility]) Fluocinolone Acetonide 0.1 MG/ML Topical Solution 01/04/2021 12: 00:00 AM EDT eCW1 ([facility]) Pimecrolimus 10 MG/ML Topical Cream [Elidel] 12/29/2020 12:00:00 AM EDT eCW1 ([facility]) Fluocinonide 0.5 MG/ML Topical Solution 12/29/2020 12:00:00 AM EDT eCW1 ([facility]) Pimecrolimus 10 MG/ML Topical Cream [Elidel] 12/29/2020 12:00:00 AM EDT eCW1 ([facility]) Fluocinonide 0.5 MG/ML Topical Solution 12/29/2020 12:00:00 AM EDT eCW1 ([facility]) azelaic acid 200 MG/ML Topical Cream [Azelex] 12/29/2020 12:00:00 A M EDT eCW1 ([facility]) Pimecrolimus 10 MG/ML Topical Cream [Elidel] 12/29/2020 12:00:00 AM EDT eCW1 ([facility]) Fluocinonide 0.5 MG/ML Topical Solution 12/29/2020 12:00:00 AM EDT eCW1 ([facility]) Pimecrolimus 10 MG/ML Topical Cream [Elidel] 12/29/2020 12:00:00 AM EDT eCW1 ([facility]) Fluocinonide 0.5 MG/ML Topical Solution 12/29/2020 12:00:00 AM EDT eCW1 ([facility]) azelaic acid 200 MG/ML Topical Cream [Azelex] 12/29/2020 12:00:00 A M EDT eCW1 ([facility]) Furosemide 40 MG Oral Tablet [Lasix] 11/25/2020 12:00:00 AM EDT eCW1 ([facility]) Furosemide 40 MG Oral Tablet [Lasix] 11/25/2020 12:00:00 AM EDT eCW1 ([facility]) Furosemide 40 MG Oral Tablet [Lasix] 11/25/2020 12:00:00 AM EDT eCW1 ([facility]) Furosemide 40 MG Oral Tablet [Lasix] 11/25/2020 12:00:00 AM EDT eCW1 ([facility]) Furosemide 40 MG Oral Tablet [Lasix] 11/25/2020 12:00:00 AM EDT eCW1 ([facility]) Azelastine HCl 0.1 % 08/31/2020 12:00:00 AM EST eCW1 ([facility]) Azelastine HCl 0.1 % 08/31/2020 12:00:00 AM EST eCW1 ([facility]) Azelastine HCl 0.1 % 08/31/2020 12:00:00 AM EST eCW1 ([facility]) Loratadine 10 MG Oral Tablet 08/30/2020 12:00:00 AM EST eCW1 ([facility]) Loratadine 10 MG Oral Tablet 08/30/2020 12:00:00 AM EST eCW1 ([facility]) Loratadine 10 MG Oral Tablet 08/30/2020 12:00:00 AM EST eCW1 ([facility]) Fluocinolone Acetonide 0.25 MG/ML Topical Cream 07/29/2020 12:00:00 AM EST eCW1 ([facility]) Cetirizine HCl 10 MG 07/29/2020 12:00:00 AM EST eCW1 ([facility]) Cetirizine HCl 10 MG 07/29/2020 12:00:00 AM EST eCW1 ([facility]) Fluocinolone Acetonide 0.25 MG/ML Topical Cream 07/29/2020 12:00:00 AM EST eCW1 ([facility]) cetirizine hydrochloride 10 MG Chewable Tablet 07/29/2020 12:00:00 AM EST eCW1 ([facility]) Cetirizine HCl 10 MG 07/29/2020 12:00:00 AM EST eCW1 ([facility]) Fluocinolone Acetonide 0.25 MG/ML Topical Cream 07/29/2020 12:00:00 AM EST eCW1 ([facility]) cetirizine hydrochloride 10 MG Chewable Tablet 07/29/2020 12:00:00 AM EST eCW1 ([facility]) Cetirizine HCl 10 MG 07/29/2020 12:00:00 AM EST eCW1 ([facility]) Fluocinolone Acetonide 0.25 MG/ML Topical Cream 07/29/2020 12:00:00 AM EST eCW1 ([facility]) cetirizine hydrochloride 10 MG Chewable Tablet 07/29/2020 12:00:00 AM EST eCW1 ([facility]) Diclofenac Sodium 0.01 MG/MG Topical Gel [Voltaren] 07/09/20 12:00:00 AM EDT eCW1 ([facility]) Diclofenac Sodium 0.01 MG/MG Topical Gel [Voltaren] 07/09/20 12:00:00 AM EDT eCW1 ([facility]) Diclofenac Sodium 0.01 MG/MG Topical Gel [Voltaren] 07/09/20 12:00:00 AM EDT eCW1 ([facility]) Diclofenac Sodium 0.01 MG/MG Topical Gel [Voltaren] 07/09/20 12:00:00 AM EDT eCW1 ([facility]) Ciprofloxacin 250 MG Oral Tablet [Cipro] 06/23/2020 12:00:00 AM EDT eCW1 ([facility])
[2021-07-26] MEDS ORDERED: NS 1,000 ML IV ONE (12:45)
[2021-07-26] MEDS ORDERED: ONDANSETRON 4MG/2ML VIAL IV ONE (12:45)
[2021-07-26 13:30] LABS: BASO % 0.2 % (0.0-1.0); EOS % 0.7 % (0.0-3.0); HEMATOCRIT 41.8 % (36.0-47.0); HEMOGLOBIN 13.8 g/dl (12.0-15.5); LYMPH # 1.4 10^3/uL (1.5-5.0); LYMPH % 30.4 % (24.0-44.0); MEAN CORPUSCULAR VOLUME 90.9 fl (80.0-96.0); MONO # 0.4 10^3/uL (0.0-0.8); MONO % 8.5 % (2.0-8.0); NEUTROPHILS # 2.8 10^3/uL (1.5-8.5); PLATELET COUNT, AUTOMATED 194 10^3/uL (150-450); WHITE BLOOD COUNT 4.6 10^3/uL (4.0-10.0)
[2021-07-26 13:49] LABS: ALBUMIN 3.3 GM/DL (3.2-5.2); ALT/SGPT 31 U/L (12-78); BILIRUBIN,DIRECT 0.1 MG/DL (0.0-0.2); BILIRUBIN,TOTAL 0.4 MG/DL (0.2-1.0); LIPASE 90 U/L (73-393); TOTAL PROTEIN 6.2 GM/DL (6.4-8.2)
[2021-07-26 13:51] LABS: CK-MB VALUE MASS 1.4 NG/ML (<3.6); CPK CREATINE PHOSPHOKINASE 78 U/L (26-192); MB/CK RELATIVE INDEX 1.79 (< OR =4); TROPONIN I < 0.02 NG/ML (< 0.10)
--- NOTE | 2021-07-26 13:57 | REP ---
INDICATION: diffuse abd pain COMPARISON: 12/27/2020 TECHNIQUE: Supine view of the abdomen and pelvis. FINDINGS: Bowel gas pattern is nonspecific and without obstruction or perforation. No organomegaly. No abnormal calcifications. Skeletal structures intact. IMPRESSION: Normal abdominal radiograph. <Electronically signed by Donte Everett > 07/26/21 [id number]
[2021-07-26 14:01] LABS: BLOOD UREA NITROGEN 6 MG/DL (7-18); CALCIUM LEVEL 8.8 MG/DL (8.8-10.2); CARBON DIOXIDE LEVEL 30 MEQ/L (21-32); CHLORIDE LEVEL 106 MEQ/L (98-107); CREATININE FOR GFR 0.62 MG/DL (0.55-1.30); GLOMERULAR FILTRATION RATE > 60.0 (>45); GLUCOSE, FASTING 86 MG/DL (70-100); POTASSIUM SERUM 3.6 MEQ/L (3.5-5.1); SODIUM LEVEL 141 MEQ/L (136-145)
[2021-07-26] MEDS ORDERED: KETOROLAC 30 MG/ML 1ML VIAL IV ONE (14:35)
[2021-07-26] MEDS ORDERED: ISOVUE-370 76% 100ML VIAL As Ordered ONE ×2 (15:06→16:21)
--- NOTE | 2021-07-26 16:50 | REP ---
INDICATION: diffuse abd pain, n/v/d. COMPARISON: Multiple the latest 09/15/2018 also with contrast TECHNIQUE: Standard helical technique after the intravenous administration of 100 cc Isovue 370. No oral bowel preparatory contrast was administered prior to the exam. FINDINGS: The lung bases are clear and unchanged. The liver, spleen, pancreas, adrenal glands, and kidneys are again seen to be within normal limits. The abdominal aorta and para aortic regions are unchanged and again seen to be within normal limits. The bowel loops and the mesenteries are again seen to be within normal limits. The appendix is well visualized and is unchanged from the prior exam. There is no free fluid or free air. There is no mass or adenopathy. Bone window technique throughout the examination shows no significant change in appearance of the osseous structures. IMPRESSION: Stable CT examination of the abdomen and pelvis showing no evidence of acute disease. <Electronically signed by Jere Holden > 07/26/21 [id number]
[2021-07-26] MEDS ORDERED: GI COCKTAIL 50ML BTL(HYOSCYAMINE/MAALOX/LIDOCAINE VISCOUS)(1:3:1) PO ONE (17:15)
[2021-07-26 17:57] VITALS: BP 122/76
--- NOTE | 2021-07-26 18:11 | ECGEPIP ---
[facility] - ED Test Date: 2021-07-26 Pat Name: DELIA BLOUNT Department: Room: - Gender: Female [employer] Layer: NIR : [id number] Requested By: ESTEFANI Pa PA-C Order Number: [id number] Reading MD: Quinton Lewis Measurements Intervals [place] Rate: 75 P: 51 GA: 176 QRS: 22 QRSD: 70 T: 35 QT: 384 QTc: 428 Interpretive Statements Normal sinus rhythm POOR R WAVE PROGRESSION SIMILAR TO 05/28/21 Electronically Signed on 07-26-2021 18:11:32 EST by Quinton Lewis
== END 2021-07-26 17:59 | disposition home or self-care (01) ==
LOC: M ED 11:20
DX: R10.9 Unspecified abdominal pain (principal); R11.2 Nausea with vomiting, unspecified; R19.7 Diarrhea, unspecified; E11.9 Type 2 diabetes mellitus without complications; J45.909 Unspecified asthma, uncomplicated; G47.33 Obstructive sleep apnea (adult) (pediatric); K21.9 Gastro-esophageal reflux disease without esophagitis; K44.9 Diaphragmatic hernia without obstruction or gangrene; Z87.19 Personal history of other diseases of the digestive system; Z88.1 Allergy status to other antibiotic agents; Z88.5 Allergy status to narcotic agent; Z88.8 Allergy status to other drugs, medicaments and biological substances; Z91.018 Allergy to other foods; Z91.040 Latex allergy status; Z79.899 Other long term (current) drug therapy; Z79.82 Long term (current) use of aspirin
CPT/HCPCS: 74018; 74177; 80048; 80076; 81001; 82550; 82553; 83605; 83690; 85025; 87040; 93005; 96374; 96375; 99284; J1885; J2405; Q9967

== ENCOUNTER → 2021-08-18 | Outpatient (CLI) | payer OTHER ==
[~2021-08-18] MED LIST changes: +E-Z-GAS II EFFERVESCENT PACKET (SODIUM BICARB./CITRIC ACID/SIMETHICONE) As Ordered ONE; +E-Z-HD 98% w/w 340GM SUSP BTL As Ordered ONE; +E-Z-PAQUE 96% w/w SUSP 176GM BTL As Ordered ONE
--- NOTE | 2021-08-18 08:55 | REP ---
INDICATION: RUQ/EPIGASTRIC PAIN COMPARISON: CT dated 07/26/2021 TECHNIQUE: Real time rico scale ultrasound examination using curved array transducer. FINDINGS: Liver is hyperechoic consistent with fatty infiltration. No focal hepatic lesions are identified. Pancreas is incompletely evaluated due to interposed bowel gas. The gallbladder is surgically absent. No biliary ductal dilatation is appreciated and the common bile duct measures 5.8 mm diameter. Right kidney is normal in reniform shape without hydronephrosis and measures 10.7 x 4.3 x 4.8 cm. No ascites in the visualized right upper quadrant. IMPRESSION: Hepatosteatosis. <Electronically signed by Donte Everett > 08/18/21 0825
--- NOTE | 2021-08-18 18:17 | REP ---
INDICATION: RUQ/EPIGASTRIC PAIN. COMPARISON: None. TECHNIQUE: The procedure was performed under the direct supervision of Dr. Smith. The images were reviewed with Dr. Smith. Liquid barium and gas producing crystals were given in the erect position as well as liquid barium in the prone oblique position in order to perform a double contrast upper GI examination. Additionally liquid barium was given at the end of the examination in order to perform a small bowel follow through. A combination of fluoroscopy, spot films and last image hold technology was utilized, 1.7 minutes of fluoro time was utilized for this procedure. FINDINGS: The mortgage loan underwriter film shows no organomegaly or pathological masses. The intestinal gas pattern is non-specific. The oral and pharyngeal stages of deglutition are unremarkable. During esophageal transport there are tertiary waves identified. There is no esophagitis, stricture, mucosal ring or hiatal hernia. The stomach scherer are normally outlined. The rugal folds are smooth and regular. There is no gastritis neoplasm or ulcer disease. The duodenal scherer are normally outlined . The mucosal folds are smooth and regular. There is no duodenitis pancreatitis peptic ulcer disease or neoplasm. The visualized portion of the proximal small bowel appears normal in course and caliber. The barium column was followed through the small bowel to the level of the terminal ileum. Small bowel transit time is approximately 130 minutes. During fluoroscopy gentle palpation shows all loops are freely movable and pliable. There are no fixed or angulated loops. The small bowel mucosal pattern is normal in course and caliber. There is no transition to suggest a partial small-bowel obstruction. Spot filming of the terminal ileum shows it to be unremarkable. IMPRESSION: There are tertiary waves identified. Otherwise, unremarkable double contrast upper GI and small bowel follow through examination. <Electronically signed by Paulino Jaramillo > 08/18/21 1753 <Electronically signed by Jamie Smith > 08/18/21 [id number]
== END ==
LOC: M RAD 08:09
PROVIDERS: ATTEND Internal Medicine Gastroenterology
DX: R10.11 Right upper quadrant pain (principal); R10.13 Epigastric pain; K76.0 Fatty (change of) liver, not elsewhere classified

== ENCOUNTER → 2021-10-24 | Outpatient (CLI) | payer OTHER ==
[~2021-10-24] MED LIST changes: -DICY20TA11; +DICY20TA20; -E-Z-GAS II EFFERVESCENT PACKET (SODIUM BICARB./CITRIC ACID/SIMETHICONE) As Ordered ONE; -E-Z-HD 98% w/w 340GM SUSP BTL As Ordered ONE; -E-Z-PAQUE 96% w/w SUSP 176GM BTL As Ordered ONE; -MONT10TA10 PO; +MONT10TA97 PO
== END ==
LOC: M PAIN 13:45
PROVIDERS: ATTEND Nurse Practitioner Family
DX: M54.12 Radiculopathy, cervical region (principal); K21.9 Gastro-esophageal reflux disease without esophagitis; J45.909 Unspecified asthma, uncomplicated; G43.709 Chronic migraine without aura, not intractable, without status migrainosus; M19.90 Unspecified osteoarthritis, unspecified site; H40.9 Unspecified glaucoma; M47.812 Spondylosis without myelopathy or radiculopathy, cervical region; F32.A Depression, unspecified; M79.10 Myalgia, unspecified site; N95.2 Postmenopausal atrophic vaginitis; Z87.891 Personal history of nicotine dependence; Z79.84 Long term (current) use of oral hypoglycemic drugs; Z79.899 Other long term (current) drug therapy; Z79.891 Long term (current) use of opiate analgesic; Z88.1 Allergy status to other antibiotic agents; Z88.8 Allergy status to other drugs, medicaments and biological substances; Z91.040 Latex allergy status; Z91.013 Allergy to seafood

== ENCOUNTER → 2021-11-03 | Outpatient (CLI) | payer OTHER ==
[2021-11-03 11:00] LABS: CHOLESTEROL RISK RATIO 1.938 (<5)
== END ==
LOC: M LAB 07:58
PROVIDERS: ATTEND Internal Medicine Cardiovascular Disease
DX: R07.9 Chest pain, unspecified (principal)

== ENCOUNTER → 2021-11-16 | Outpatient (CLI) | payer OTHER ==
[2021-11-16 15:22] LABS: BASO % 0.4 % (0.0-1.0); EOS # 0.1 10^3/uL (0.0-0.5); EOS % 1.1 % (0.0-3.0); HEMATOCRIT 39.4 % (36.0-47.0); HEMOGLOBIN 12.5 g/dl (12.0-15.5); LYMPH # 1.9 10^3/uL (1.5-5.0); LYMPH % 34.4 % (24.0-44.0); MEAN CORPUSCULAR HEMOGLOBIN 29.3 pg (27.0-33.0); MEAN CORPUSCULAR HGB CONC 31.7 g/dl (32.0-36.5); MEAN CORPUSCULAR VOLUME 92.5 fl (80.0-96.0); MONO # 0.4 10^3/uL (0.0-0.8); MONO % 6.7 % (2.0-8.0); NEUTROPHILS # 3.1 10^3/uL (1.5-8.5); NEUTROPHILS % 57.2 % (36.0-66.0); PLATELET COUNT, AUTOMATED 248 10^3/uL (150-450); RED BLOOD COUNT 4.26 10^6/uL (4.00-5.40); WHITE BLOOD COUNT 5.4 10^3/uL (4.0-10.0)
== END ==
LOC: M PLALAB 11:55
PROVIDERS: ATTEND Student in an Organized Health Care Education/Training Program
DX: K25.7 Chronic gastric ulcer without hemorrhage or perforation (principal)

== ENCOUNTER → 2021-12-21 | Outpatient (CLI) | payer OTHER ==
[~2021-12-21] MED LIST changes: +CHOL4POW15 PO; -CHOL4POW4 PO
== END ==
LOC: M LABSMTC 09:03
PROVIDERS: ATTEND Anesthesiology
DX: Z11.52 Encounter for screening for COVID-19 (principal)

== ENCOUNTER → 2021-12-26 | Outpatient (CLI) | payer OTHER ==
[~2021-12-26] MED LIST changes: +ISOVUE-M 300 61% 15ML VIAL As Ordered ONE; +LIDOCAINE 1% SDV 30ML VIAL As Ordered ONE; +NORCO, ANEXSIA 5/325MG TABLET (HYDROcodone/ACETAMINOPHEN) As Ordered ONE; +ONDANSETRON 4MG ORAL DISINTEGRATING TAB As Ordered ONE; +diphenhydrAMINE 25MG CAP As Ordered ONE; +methylPREDNISolone SUSP 40MG/ML 1ML VIAL (DEPO MEDROL) As Ordered ONE
== END ==
LOC: M PAIN 14:20
PROVIDERS: ATTEND Anesthesiology
DX: M50.10 Cervical disc disorder with radiculopathy, unspecified cervical region (principal); K21.9 Gastro-esophageal reflux disease without esophagitis; J45.909 Unspecified asthma, uncomplicated; G43.709 Chronic migraine without aura, not intractable, without status migrainosus; H40.9 Unspecified glaucoma; A60.09 Herpesviral infection of other urogenital tract; M47.812 Spondylosis without myelopathy or radiculopathy, cervical region; F32.A Depression, unspecified; M79.7 Fibromyalgia; N95.2 Postmenopausal atrophic vaginitis; G56.03 Carpal tunnel syndrome, bilateral upper limbs; Z79.84 Long term (current) use of oral hypoglycemic drugs; Z79.891 Long term (current) use of opiate analgesic; Z79.899 Other long term (current) drug therapy; Z87.891 Personal history of nicotine dependence; Z88.1 Allergy status to other antibiotic agents; Z88.8 Allergy status to other drugs, medicaments and biological substances; Z91.013 Allergy to seafood; Z91.048 Other nonmedicinal substance allergy status
CPT/HCPCS: 62321; J1030; Q9967

== ENCOUNTER → 2022-01-09 | Outpatient (REF) | payer OTHER ==
[~2022-01-09] MED LIST changes: -ISOVUE-M 300 61% 15ML VIAL As Ordered ONE; -LIDOCAINE 1% SDV 30ML VIAL As Ordered ONE; -NORCO, ANEXSIA 5/325MG TABLET (HYDROcodone/ACETAMINOPHEN) As Ordered ONE; -ONDANSETRON 4MG ORAL DISINTEGRATING TAB As Ordered ONE; -diphenhydrAMINE 25MG CAP As Ordered ONE; -methylPREDNISolone SUSP 40MG/ML 1ML VIAL (DEPO MEDROL) As Ordered ONE
== END ==
LOC: M SFHCPLAZ 16:50
PROVIDERS: ATTEND Physician Assistant
DX: Z11.52 Encounter for screening for COVID-19 (principal); Z20.822 Contact with and (suspected) exposure to COVID-19

== ENCOUNTER 2022-01-15 13:59 | Inpatient (IN) | payer OTHER ==
[~2022-01-15] VITALS: Ht 154.9 cm; Wt 82.0 kg
[~2022-01-15 13:59] MED LIST changes: -ALBU8.5H; +ALBU8.5H INH; -ESTR1TAB; -FLUT1INH2; +FLUT1INH2 INH
[2022-01-15] MEDS ORDERED: methylPREDNISolone 125MG 2ML VIAL IV ONE (15:30)
[2022-01-15] MEDS ORDERED: ALBUTEROL 90 MCG/ACT 8GM HFA INHALER INH ONE (15:30)
[2022-01-15 15:55] LABS: HEMATOCRIT 41.8 % (36.0-47.0); HEMOGLOBIN 13.3 g/dl (12.0-15.5); MEAN CORPUSCULAR HGB CONC 31.8 g/dl (32.0-36.5); MEAN CORPUSCULAR VOLUME 91.3 fl (80.0-96.0); PLATELET COUNT, AUTOMATED 276 10^3/uL (150-450); RED BLOOD COUNT 4.58 10^6/uL (4.00-5.40); WHITE BLOOD COUNT 8.8 10^3/uL (4.0-10.0)
[2022-01-15] MEDS: MAG SULF 1GM/100ML (MAG RUN) 1 GM in IV 1 EA IV SCH ×2 (15:56→16:11)
[2022-01-15 16:00] LABS: ABG BASE EXCESS 0.5 (-2.0-2.0); ABG HCO3 24.8 MEQ/L (22.0-26.0); ABG O2 SATURATION 95.1 % (95.0-99.0); ABG PARTIAL PRESSURE CO2 38.5 mmHg (35.0-45.0); ABG PARTIAL PRESSURE O2 75.4 mmHg (75.0-100.0); ABG STANDARD HCO3 24.9 MEQ/L (22.0-26.0); ABG TOTAL CO2 25.9 MEQ/L (23.0-31.0); ABG pH (ARTERIAL) 7.426 UNITS (7.350-7.450)
[2022-01-15 16:19] LABS: ALBUMIN 3.4 GM/DL (3.2-5.2); ALT/SGPT 23 U/L (12-78); BILIRUBIN,DIRECT < 0.1 MG/DL (0.0-0.2); BILIRUBIN,TOTAL 0.2 MG/DL (0.2-1.0); BLOOD UREA NITROGEN 24 MG/DL (7-18); CALCIUM LEVEL 8.9 MG/DL (8.8-10.2); CARBON DIOXIDE LEVEL 31 MEQ/L (21-32); CHLORIDE LEVEL 108 MEQ/L (98-107); CREATININE FOR GFR 0.93 MG/DL (0.55-1.30); GLOMERULAR FILTRATION RATE > 60.0 (>45); GLUCOSE, FASTING 101 MG/DL (70-100); POTASSIUM SERUM 4.1 MEQ/L (3.5-5.1); SODIUM LEVEL 142 MEQ/L (136-145); TOTAL PROTEIN 6.4 GM/DL (6.4-8.2)
[2022-01-15 16:26] LABS: ATYPICAL LYMPH 3 % (0-5); LYMPHOCYTES 32 % (16-44); MONOCYTES 6 % (0-5); NEUTROPHILS 58 % (28-66); PLATELET CLUMPS SMALL AMT; PLATELET ESTIMATE NORMAL (NORMAL)
[2022-01-15] MEDS ORDERED: NS 1,000 ML IV ONE (16:45)
[2022-01-15] MEDS ORDERED: IPRATROPIUM 0.5MG/ALBUTEROL 2.5MG INH SOL UD 3ML (DUONEB) NEB ONE (16:50)
[2022-01-15] MEDS ORDERED: predniSONE 50 MG TAB PO ONE (18:35)
[2022-01-15] MEDS ORDERED: METF850T4 PO (18:37)
[2022-01-15] MEDS ORDERED: AMOX875T2 PO (18:37)
[2022-01-15] MEDS ORDERED: PRED20TA PO (18:37)
[2022-01-15] MEDS ORDERED: SUCR1TAB56 PO (18:37)
[2022-01-15] MEDS ORDERED: VALA1TAB5 PO (18:37)
[2022-01-15] MEDS ORDERED: CELE1CAP9 PO (18:37)
[2022-01-15] MEDS ORDERED: BUPR75TA5 PO (18:37)
[2022-01-15] MEDS ORDERED: ATOR80TA59 PO (18:39)
[2022-01-15] MEDS ORDERED: HOME MED LIST COMPLETE! XX SCH (18:55)
[2022-01-15] MEDS: ACETAMINOPHEN TAB 650MG DOSE (2X325MG) PO PRN (19:50)
[2022-01-15] MEDS: IPRATROPIUM 0.5MG/ALBUTEROL 2.5MG INH SOL UD 3ML (DUONEB) NEB PRN (20:01)
[2022-01-15] MEDS ORDERED: NS 1,000 ML IV SCH (21:15)
[2022-01-16] VITALS (8 sets, daily range): BP systolic 101–131; BP diastolic 61–97; O2SAT 94–96
[2022-01-16] MEDS ORDERED: CYCLOBENZAPRINE 10MG TABLET PO PRN (02:00)
[2022-01-16] MEDS ORDERED: DEXTROSE 50% 50 ML SYRINGE IV PRN (02:50)
[2022-01-16] MEDS ORDERED: GLUCAGON INJ 1MG VIAL SC PRN (02:50)
[2022-01-16] MEDS ORDERED: GLUCOSE 4GM CHEW TABLET PO PRN (02:50)
[2022-01-16 06:23] LABS: HEMATOCRIT 36.1 % (36.0-47.0); HEMOGLOBIN 11.8 g/dl (12.0-15.5); MEAN CORPUSCULAR HEMOGLOBIN 29.9 pg (27.0-33.0); MEAN CORPUSCULAR HGB CONC 32.7 g/dl (32.0-36.5); MEAN CORPUSCULAR VOLUME 91.4 fl (80.0-96.0); PLATELET COUNT, AUTOMATED 245 10^3/uL (150-450); RED BLOOD COUNT 3.95 10^6/uL (4.00-5.40); WHITE BLOOD COUNT 6.6 10^3/uL (4.0-10.0)
[2022-01-16 06:41] LABS: BLOOD UREA NITROGEN 16 MG/DL (7-18); CALCIUM LEVEL 8.4 MG/DL (8.8-10.2); CARBON DIOXIDE LEVEL 25 MEQ/L (21-32); CHLORIDE LEVEL 110 MEQ/L (98-107); CREATININE FOR GFR 0.51 MG/DL (0.55-1.30); GLOMERULAR FILTRATION RATE > 60.0 (>45); GLUCOSE, FASTING 125 MG/DL (70-100); MAGNESIUM LEVEL 2.6 MG/DL (1.8-2.4); POTASSIUM SERUM 4.1 MEQ/L (3.5-5.1); SODIUM LEVEL 142 MEQ/L (136-145)
[2022-01-16 07:19] LABS: ATYPICAL LYMPH 2 % (0-5); EOSINOPHILS 1 % (0-3); LYMPHOCYTES 19 % (16-44); MONOCYTES 1 % (0-5); NEUTROPHILS 77 % (28-66)
[2022-01-16 07:20] LABS: PLATELET ESTIMATE NORMAL (NORMAL)
[2022-01-16] MEDS: SUCRALFATE 1 GM TAB PO SCH ×4 (07:30→20:35)
[2022-01-16] MEDS: HumaLOG INSULIN (NovoLOG) PER UNIT SC SCH ×4 (07:30→20:29)
[2022-01-16] MEDS: ASPIRIN 81MG ENTERIC TABLET PO SCH ×2 (09:00→10:14)
[2022-01-16] MEDS: buPROPion 75 MG TAB PO SCH ×2 (09:00→10:13)
[2022-01-16] MEDS: DULoxetine 20 MG CAP (CYMBALTA) PO SCH ×2 (09:00→10:14)
[2022-01-16] MEDS: PANTOPRAZOLE 40MG TAB (PROTONIX) PO SCH ×2 (10:13→20:35)
[2022-01-16] MEDS: ATORVASTATIN 20 MG TAB PO SCH (10:13)
[2022-01-16] MEDS: estradioL 0.5MG HALF-TAB PO SCH (10:13)
[2022-01-16] MEDS: predniSONE 50 MG TAB PO SCH (10:13)
[2022-01-16 10:14] LABS: HEMOGLOBIN A1c 6.4 %
[2022-01-16] MEDS: PREGABALIN 75 MG CAP(LYRICA) PO SCH ×3 (10:14→20:35)
[2022-01-16] MEDS: CHOLESTYRAMINE 4 GM PWD PKT PO SCH (12:34)
[2022-01-16] MEDS ORDERED: ALBUTEROL 90 MCG/ACT 8GM HFA INHALER INH PRN (13:30)
[2022-01-16] MEDS ORDERED: CEPACOL LOZENGE PO PRN (13:30)
[2022-01-16] MEDS: ACETAMINOPHEN TAB 650MG DOSE (2X325MG) PO PRN (20:35)
[2022-01-17] MEDS: IPRATROPIUM 0.5MG/ALBUTEROL 2.5MG INH SOL UD 3ML (DUONEB) NEB PRN ×2 (01:15→07:54)
[2022-01-17 02:00] VITALS: BP 102/65
[2022-01-17 06:00] VITALS: BP 111/72
[2022-01-17] MEDS: HumaLOG INSULIN (NovoLOG) PER UNIT SC SCH ×4 (07:30→21:00)
[2022-01-17] MEDS: SUCRALFATE 1 GM TAB PO SCH ×4 (07:50→21:20)
[2022-01-17 08:00] VITALS: BP 107/73
[2022-01-17] MEDS: BENZONATATE 100MG CAPSULE PO SCH ×3 (09:18→21:20)
[2022-01-17] MEDS: DULoxetine 20 MG CAP (CYMBALTA) PO SCH (09:59)
[2022-01-17 10:00] VITALS: BP 113/77
[2022-01-17] MEDS: predniSONE 50 MG TAB PO SCH (10:01)
[2022-01-17] MEDS: ASPIRIN 81MG ENTERIC TABLET PO SCH (10:01)
[2022-01-17] MEDS: estradioL 0.5MG HALF-TAB PO SCH (10:02)
[2022-01-17] MEDS: ATORVASTATIN 20 MG TAB PO SCH (10:04)
[2022-01-17] MEDS: PREGABALIN 75 MG CAP(LYRICA) PO SCH ×3 (10:06→21:20)
[2022-01-17] MEDS: CHOLESTYRAMINE 4 GM PWD PKT PO SCH (10:07)
[2022-01-17] MEDS: PANTOPRAZOLE 40MG TAB (PROTONIX) PO SCH ×2 (10:07→21:20)
[2022-01-17] MEDS: buPROPion 75 MG TAB PO SCH (10:09)
[2022-01-17] MEDS: IPRATROPIUM 0.5MG/ALBUTEROL 2.5MG INH SOL UD 3ML (DUONEB) NEB SCH ×2 (13:47→19:39)
[2022-01-17 14:00] VITALS: BP 112/75
[2022-01-17 22:00] VITALS: BP 113/71
[2022-01-18] MEDS: IPRATROPIUM 0.5MG/ALBUTEROL 2.5MG INH SOL UD 3ML (DUONEB) NEB SCH ×4 (00:50→19:24)
[2022-01-18 06:00] VITALS: BP 118/74
[2022-01-18] MEDS: BENZONATATE 100MG CAPSULE PO SCH ×3 (06:29→22:22)
[2022-01-18 06:35] LABS: HEMATOCRIT 37.5 % (36.0-47.0); HEMOGLOBIN 12.2 g/dl (12.0-15.5); MEAN CORPUSCULAR HEMOGLOBIN 29.5 pg (27.0-33.0); MEAN CORPUSCULAR HGB CONC 32.5 g/dl (32.0-36.5); MEAN CORPUSCULAR VOLUME 90.6 fl (80.0-96.0); PLATELET COUNT, AUTOMATED 252 10^3/uL (150-450); RED BLOOD COUNT 4.14 10^6/uL (4.00-5.40); WHITE BLOOD COUNT 8.5 10^3/uL (4.0-10.0)
[2022-01-18 06:53] LABS: BLOOD UREA NITROGEN 17 MG/DL (7-18); CALCIUM LEVEL 8.6 MG/DL (8.8-10.2); CARBON DIOXIDE LEVEL 28 MEQ/L (21-32); CHLORIDE LEVEL 107 MEQ/L (98-107); CREATININE FOR GFR 0.56 MG/DL (0.55-1.30); GLOMERULAR FILTRATION RATE > 60.0 (>45); GLUCOSE, FASTING 92 MG/DL (70-100); POTASSIUM SERUM 3.4 MEQ/L (3.5-5.1); SODIUM LEVEL 142 MEQ/L (136-145)
[2022-01-18] MEDS: HumaLOG INSULIN (NovoLOG) PER UNIT SC SCH ×4 (07:30→19:54)
[2022-01-18] MEDS: ASPIRIN 81MG ENTERIC TABLET PO SCH (08:22)
[2022-01-18] MEDS: PANTOPRAZOLE 40MG TAB (PROTONIX) PO SCH ×2 (08:22→19:54)
[2022-01-18] MEDS: PREGABALIN 75 MG CAP(LYRICA) PO SCH ×3 (08:22→19:54)
[2022-01-18] MEDS: buPROPion 75 MG TAB PO SCH (08:22)
[2022-01-18] MEDS: CHOLESTYRAMINE 4 GM PWD PKT PO SCH (08:22)
[2022-01-18] MEDS: estradioL 0.5MG HALF-TAB PO SCH (08:23)
[2022-01-18] MEDS: predniSONE 50 MG TAB PO SCH (08:23)
[2022-01-18] MEDS: DULoxetine 20 MG CAP (CYMBALTA) PO SCH (08:23)
[2022-01-18] MEDS: SUCRALFATE 1 GM TAB PO SCH ×4 (08:23→19:54)
[2022-01-18] MEDS: ATORVASTATIN 20 MG TAB PO SCH (08:23)
[2022-01-18 10:00] VITALS: BP 117/74
[2022-01-18] MEDS: ALBUTEROL SULFATE 2.5 MG/0.5 ML INH NEB SOLN NEB PRN ×2 (11:21→15:32)
[2022-01-18] MEDS: guaiFENesin ER 600 MG TAB PO SCH ×2 (12:48→19:54)
[2022-01-18 14:00] VITALS: BP 138/82
[2022-01-18] MEDS ORDERED: POTASSIUM CHLORIDE 10MEQ SR TABLET PO ONE (19:35)
[2022-01-18] MEDS: methylPREDNISolone 125MG 2ML VIAL IV SCH (19:53)
[2022-01-18 22:00] VITALS: BP 109/77
[2022-01-19] MEDS: IPRATROPIUM 0.5MG/ALBUTEROL 2.5MG INH SOL UD 3ML (DUONEB) NEB SCH ×4 (02:43→19:13)
[2022-01-19] MEDS: BENZONATATE 100MG CAPSULE PO SCH ×3 (05:14→21:04)
[2022-01-19 06:00] VITALS: BP 108/64
[2022-01-19 06:20] LABS: HEMATOCRIT 40.1 % (36.0-47.0); MEAN CORPUSCULAR HEMOGLOBIN 28.7 pg (27.0-33.0); MEAN CORPUSCULAR HGB CONC 32.4 g/dl (32.0-36.5); MEAN CORPUSCULAR VOLUME 88.5 fl (80.0-96.0); PLATELET COUNT, AUTOMATED 270 10^3/uL (150-450); RED BLOOD COUNT 4.53 10^6/uL (4.00-5.40); WHITE BLOOD COUNT 9.7 10^3/uL (4.0-10.0)
[2022-01-19 06:47] LABS: BLOOD UREA NITROGEN 14 MG/DL (7-18); CALCIUM LEVEL 8.8 MG/DL (8.8-10.2); CARBON DIOXIDE LEVEL 26 MEQ/L (21-32); CHLORIDE LEVEL 103 MEQ/L (98-107); CREATININE FOR GFR 0.61 MG/DL (0.55-1.30); GLOMERULAR FILTRATION RATE > 60.0 (>45); GLUCOSE, FASTING 163 MG/DL (70-100); POTASSIUM SERUM 4.2 MEQ/L (3.5-5.1); SODIUM LEVEL 136 MEQ/L (136-145)
[2022-01-19] MEDS: ALBUTEROL SULFATE 2.5 MG/0.5 ML INH NEB SOLN NEB PRN (07:20)
[2022-01-19] MEDS: methylPREDNISolone 125MG 2ML VIAL IV SCH ×2 (08:37→17:15)
[2022-01-19] MEDS: HumaLOG INSULIN (NovoLOG) PER UNIT SC SCH ×4 (08:37→21:05)
[2022-01-19] MEDS: estradioL 0.5MG HALF-TAB PO SCH (08:38)
[2022-01-19] MEDS: CHOLESTYRAMINE 4 GM PWD PKT PO SCH (08:38)
[2022-01-19] MEDS: PANTOPRAZOLE 40MG TAB (PROTONIX) PO SCH ×2 (08:38→21:04)
[2022-01-19] MEDS: ENOXAPARIN 40MG/0.4ML SYRINGE (J1650 PER 10MG) SC SCH (08:38)
[2022-01-19] MEDS: SUCRALFATE 1 GM TAB PO SCH ×4 (08:38→21:03)
[2022-01-19] MEDS: PREGABALIN 75 MG CAP(LYRICA) PO SCH ×3 (08:39→21:04)
[2022-01-19] MEDS: buPROPion 75 MG TAB PO SCH (08:39)
[2022-01-19] MEDS: ASPIRIN 81MG ENTERIC TABLET PO SCH (08:39)
[2022-01-19] MEDS: ATORVASTATIN 20 MG TAB PO SCH (08:39)
[2022-01-19] MEDS: guaiFENesin ER 600 MG TAB PO SCH ×2 (08:39→21:04)
[2022-01-19] MEDS: DULoxetine 20 MG CAP (CYMBALTA) PO SCH (08:39)
[2022-01-19] MEDS: ACETAMINOPHEN TAB 650MG DOSE (2X325MG) PO PRN (11:25)
[2022-01-19 14:00] VITALS: BP 94/58
[2022-01-19] MEDS ORDERED: RIZATRIPTAN BENZOATE 10 MG TAB PO PRN (17:55)
[2022-01-19] MEDS ORDERED: traMADol 50 MG TAB PO PRN (17:55)
[2022-01-19 22:00] VITALS: BP 102/62
[2022-01-20] VITALS: BP 102/62
[2022-01-20] MEDS: methylPREDNISolone 125MG 2ML VIAL IV SCH ×2 (00:29→08:47)
[2022-01-20] MEDS: IPRATROPIUM 0.5MG/ALBUTEROL 2.5MG INH SOL UD 3ML (DUONEB) NEB SCH ×4 (01:53→21:37)
[2022-01-20] MEDS: BENZONATATE 100MG CAPSULE PO SCH ×3 (05:42→21:51)
[2022-01-20 05:44] VITALS: BP 102/72
[2022-01-20 06:48] LABS: HEMATOCRIT 40.3 % (36.0-47.0); HEMOGLOBIN 13.1 g/dl (12.0-15.5); MEAN CORPUSCULAR HGB CONC 32.5 g/dl (32.0-36.5); MEAN CORPUSCULAR VOLUME 89.4 fl (80.0-96.0); PLATELET COUNT, AUTOMATED 280 10^3/uL (150-450); RED BLOOD COUNT 4.51 10^6/uL (4.00-5.40); WHITE BLOOD COUNT 14.1 10^3/uL (4.0-10.0)
[2022-01-20 07:23] LABS: BLOOD UREA NITROGEN 17 MG/DL (7-18); CALCIUM LEVEL 8.7 MG/DL (8.8-10.2); CARBON DIOXIDE LEVEL 30 MEQ/L (21-32); CHLORIDE LEVEL 106 MEQ/L (98-107); CREATININE FOR GFR 0.68 MG/DL (0.55-1.30); GLOMERULAR FILTRATION RATE > 60.0 (>45); GLUCOSE, FASTING 161 MG/DL (70-100); POTASSIUM SERUM 3.8 MEQ/L (3.5-5.1); SODIUM LEVEL 140 MEQ/L (136-145)
[2022-01-20] MEDS: CHOLESTYRAMINE 4 GM PWD PKT PO SCH (08:44)
[2022-01-20] MEDS: estradioL 0.5MG HALF-TAB PO SCH (08:44)
[2022-01-20] MEDS: ATORVASTATIN 20 MG TAB PO SCH (08:44)
[2022-01-20] MEDS: ENOXAPARIN 40MG/0.4ML SYRINGE (J1650 PER 10MG) SC SCH (08:44)
[2022-01-20] MEDS: guaiFENesin ER 600 MG TAB PO SCH ×2 (08:45→21:50)
[2022-01-20] MEDS: ASPIRIN 81MG ENTERIC TABLET PO SCH (08:45)
[2022-01-20] MEDS: DULoxetine 20 MG CAP (CYMBALTA) PO SCH (08:45)
[2022-01-20] MEDS: PANTOPRAZOLE 40MG TAB (PROTONIX) PO SCH ×2 (08:45→21:51)
[2022-01-20] MEDS: buPROPion 75 MG TAB PO SCH (08:45)
[2022-01-20] MEDS: SUCRALFATE 1 GM TAB PO SCH ×4 (08:45→21:51)
[2022-01-20] MEDS: PREGABALIN 75 MG CAP(LYRICA) PO SCH ×3 (08:45→21:51)
[2022-01-20] MEDS: ACETAMINOPHEN TAB 650MG DOSE (2X325MG) PO PRN (08:46)
[2022-01-20] MEDS: HumaLOG INSULIN (NovoLOG) PER UNIT SC SCH ×4 (08:48→20:49)
[2022-01-20 14:00] VITALS: BP 110/73
[2022-01-20 20:09] VITALS: BP 116/69
[2022-01-20] MEDS: predniSONE 20 MG TAB PO SCH (21:51)
[2022-01-21] MEDS: IPRATROPIUM 0.5MG/ALBUTEROL 2.5MG INH SOL UD 3ML (DUONEB) NEB SCH ×3 (02:04→13:26)
[2022-01-21] MEDS: BENZONATATE 100MG CAPSULE PO SCH ×2 (05:46→12:04)
[2022-01-21 06:36] VITALS: BP 116/73
[2022-01-21 07:45] LABS: HEMATOCRIT 41.7 % (36.0-47.0); HEMOGLOBIN 13.7 g/dl (12.0-15.5); MEAN CORPUSCULAR HEMOGLOBIN 29.2 pg (27.0-33.0); MEAN CORPUSCULAR HGB CONC 32.9 g/dl (32.0-36.5); MEAN CORPUSCULAR VOLUME 88.9 fl (80.0-96.0); PLATELET COUNT, AUTOMATED 277 10^3/uL (150-450); RED BLOOD COUNT 4.69 10^6/uL (4.00-5.40); WHITE BLOOD COUNT 12.3 10^3/uL (4.0-10.0)
[2022-01-21 08:11] LABS: BLOOD UREA NITROGEN 23 MG/DL (7-18); CALCIUM LEVEL 8.7 MG/DL (8.8-10.2); CARBON DIOXIDE LEVEL 29 MEQ/L (21-32); CHLORIDE LEVEL 104 MEQ/L (98-107); CREATININE FOR GFR 0.72 MG/DL (0.55-1.30); GLOMERULAR FILTRATION RATE > 60.0 (>45); GLUCOSE, FASTING 140 MG/DL (70-100); POTASSIUM SERUM 3.8 MEQ/L (3.5-5.1); SODIUM LEVEL 138 MEQ/L (136-145)
[2022-01-21] MEDS: ENOXAPARIN 40MG/0.4ML SYRINGE (J1650 PER 10MG) SC SCH (08:42)
[2022-01-21] MEDS: CHOLESTYRAMINE 4 GM PWD PKT PO SCH (08:42)
[2022-01-21] MEDS: ASPIRIN 81MG ENTERIC TABLET PO SCH (08:42)
[2022-01-21] MEDS: ATORVASTATIN 20 MG TAB PO SCH (08:42)
[2022-01-21] MEDS: ACETAMINOPHEN TAB 650MG DOSE (2X325MG) PO PRN ×2 (08:43→14:30)
[2022-01-21] MEDS: buPROPion 75 MG TAB PO SCH (08:43)
[2022-01-21] MEDS: PREGABALIN 75 MG CAP(LYRICA) PO SCH ×2 (08:43→14:29)
[2022-01-21] MEDS: estradioL 0.5MG HALF-TAB PO SCH (08:43)
[2022-01-21] MEDS: predniSONE 20 MG TAB PO SCH (08:43)
[2022-01-21] MEDS: SUCRALFATE 1 GM TAB PO SCH ×2 (08:44→12:04)
[2022-01-21] MEDS: guaiFENesin ER 600 MG TAB PO SCH (08:44)
[2022-01-21] MEDS: DULoxetine 20 MG CAP (CYMBALTA) PO SCH (08:44)
[2022-01-21] MEDS: PANTOPRAZOLE 40MG TAB (PROTONIX) PO SCH (08:44)
[2022-01-21] MEDS: HumaLOG INSULIN (NovoLOG) PER UNIT SC SCH ×2 (08:45→11:58)
[2022-01-21] MEDS ORDERED: PRED10TA2 PO (09:06)
[2022-01-21] MEDS ORDERED: BENZ-18 PO (09:06)
[2022-01-21] MEDS ORDERED: MUCI600T31 PO (09:06)
[2022-01-21 14:00] VITALS: BP 120/74
[2022-01-21] MEDS ORDERED: ALBU0.63 NEB (16:23)
== END 2022-01-21 14:40 | disposition home or self-care (01) | DRG 141 ==
LOC: M ED 13:59 → M ED INP 18:30 → CANRESERV 20:07 → ENRESERV 20:07 → M MS5PR 01-16 00:25
PROVIDERS: ADMIT Family Medicine; ATTEND Internal Medicine
DX: J45.901 Unspecified asthma with (acute) exacerbation (principal); F32.A Depression, unspecified; K21.9 Gastro-esophageal reflux disease without esophagitis; M19.90 Unspecified osteoarthritis, unspecified site; H40.9 Unspecified glaucoma; M79.7 Fibromyalgia; G47.33 Obstructive sleep apnea (adult) (pediatric); Z90.49 Acquired absence of other specified parts of digestive tract; Z90.79 Acquired absence of other genital organ(s); M43.22 Fusion of spine, cervical region; J30.9 Allergic rhinitis, unspecified; Z79.2 Long term (current) use of antibiotics; Z79.84 Long term (current) use of oral hypoglycemic drugs; Z79.899 Other long term (current) drug therapy; Z79.810 Long term (current) use of selective estrogen receptor modulators (SERMs); Z20.822 Contact with and (suspected) exposure to COVID-19; Z91.040 Latex allergy status; Z88.5 Allergy status to narcotic agent; Z88.1 Allergy status to other antibiotic agents; Z91.013 Allergy to seafood; Z91.048 Other nonmedicinal substance allergy status; Z88.8 Allergy status to other drugs, medicaments and biological substances; J02.9 Acute pharyngitis, unspecified; B97.81 Human metapneumovirus as the cause of diseases classified elsewhere; G43.909 Migraine, unspecified, not intractable, without status migrainosus

== ENCOUNTER → 2022-02-14 | Outpatient (REF) | payer OTHER ==
[~2022-02-14] MED LIST changes: +ALBU0.63 NEB; +ALBU2.5V10 INH; -ALBU83IN INH; +AMOX875T2 PO; +ATOR80TA59 PO; +BENZ-18 PO; +BUPR75TA5 PO; +CELE1CAP9 PO; +METF850T4 PO; +MUCI600T31 PO; +ONDA4TAB6 PO; +PRED10TA2 PO; +SUCR1TAB56 PO; +VALA1TAB5 PO
== END ==
LOC: M LAB REF 13:17
PROVIDERS: ATTEND Internal Medicine Gastroenterology
DX: R19.7 Diarrhea, unspecified (principal)

== ENCOUNTER 2022-02-15 12:44 | Emergency (ER) | payer OTHER ==
[~2022-02-15] VITALS: Ht 154.9 cm; Wt 80.9 kg
[~2022-02-15 12:44] MED LIST changes: +CHOL4POW15 PO; -CHOL4POW26 PO; -ONDA4TAB6 PO
[2022-02-15] MEDS ORDERED: ONDA4TAB6 PO (15:53)
[2022-02-15] MEDS ORDERED: diphenhydrAMINE 50MG/ML VIAL (J1200) IV ONE (16:25)
[2022-02-15] MEDS ORDERED: NS 1,000 ML IV ONE (16:25)
[2022-02-15] MEDS ORDERED: ACETAMINOPHEN 500 MG TAB PO ONE (16:25)
[2022-02-15 16:46] LABS: BASO % 0.2 % (0.0-1.0); EOS % 0.8 % (0.0-3.0); LYMPH % 41.9 % (24.0-44.0); MEAN CORPUSCULAR HEMOGLOBIN 29.3 pg (27.0-33.0); MEAN CORPUSCULAR HGB CONC 31.7 g/dl (32.0-36.5); MEAN CORPUSCULAR VOLUME 92.6 fl (80.0-96.0); MONO # 0.4 10^3/uL (0.0-0.8); MONO % 7.6 % (2.0-8.0); NEUTROPHILS # 2.3 10^3/uL (1.5-8.5); NEUTROPHILS % 49.3 % (36.0-66.0); PLATELET COUNT, AUTOMATED 220 10^3/uL (150-450); RED BLOOD COUNT 4.43 10^6/uL (4.00-5.40); WHITE BLOOD COUNT 4.7 10^3/uL (4.0-10.0)
[2022-02-15 17:17] LABS: ERYTHROCYTE SEDIMENTATION RATE 6 mm/hr (0-30)
[2022-02-15 17:54] LABS: BLOOD UREA NITROGEN 14 MG/DL (7-18); CALCIUM LEVEL 9.7 MG/DL (8.8-10.2); CARBON DIOXIDE LEVEL 33 MEQ/L (21-32); CHLORIDE LEVEL 105 MEQ/L (98-107); CREATININE FOR GFR 0.63 MG/DL (0.55-1.30); FREE T4 0.89 NG/DL (0.76-1.46); GLOMERULAR FILTRATION RATE > 60.0 (>45); GLUCOSE, FASTING 129 MG/DL (70-100); POTASSIUM SERUM 3.9 MEQ/L (3.5-5.1); SODIUM LEVEL 143 MEQ/L (136-145)
[2022-02-15 18:26] VITALS: BP 110/64
[2022-02-15] MEDS ORDERED: RIZA5TAB2 PO (18:35)
== END 2022-02-15 18:37 | disposition home or self-care (01) ==
LOC: M ED 12:44
DX: G43.909 Migraine, unspecified, not intractable, without status migrainosus (principal); R10.9 Unspecified abdominal pain; R19.7 Diarrhea, unspecified; E11.9 Type 2 diabetes mellitus without complications; J45.909 Unspecified asthma, uncomplicated; G47.33 Obstructive sleep apnea (adult) (pediatric); Z88.1 Allergy status to other antibiotic agents; Z88.8 Allergy status to other drugs, medicaments and biological substances; Z79.899 Other long term (current) drug therapy; Z79.82 Long term (current) use of aspirin
CPT/HCPCS: 70450; 80048; 84439; 84443; 85025; 85652; 86140; 96374; 99284; J1200

== ENCOUNTER → 2022-02-15 | Outpatient (CLI) | payer OTHER ==
[~2022-02-15] MED LIST changes: -CHOL4POW15 PO; +CHOL4POW26 PO
== END ==
LOC: M PAIN 11:30
PROVIDERS: ATTEND Nurse Practitioner Family
DX: M50.10 Cervical disc disorder with radiculopathy, unspecified cervical region (principal); G89.29 Other chronic pain; E11.9 Type 2 diabetes mellitus without complications; K21.9 Gastro-esophageal reflux disease without esophagitis; J45.909 Unspecified asthma, uncomplicated; G43.909 Migraine, unspecified, not intractable, without status migrainosus; M79.7 Fibromyalgia; Z86.59 Personal history of other mental and behavioral disorders; Z87.891 Personal history of nicotine dependence; Z88.1 Allergy status to other antibiotic agents; Z88.8 Allergy status to other drugs, medicaments and biological substances; Z91.013 Allergy to seafood; Z91.040 Latex allergy status; Z79.84 Long term (current) use of oral hypoglycemic drugs; Z79.899 Other long term (current) drug therapy

== ENCOUNTER → 2022-03-03 | Outpatient (CLI) | payer OTHER ==
[~2022-03-03] MED LIST changes: +ONDA4TAB6 PO
[2022-03-03 16:48] LABS: RHEUMATOID FACTOR QUANT < 10.0 IU/ML (<15.0); URIC ACID 2.1 MG/DL (2.6-6.0)
[2022-03-06 11:12] LABS: ANTINUCLEAR ANTIBODIES DIRECT Negative (Negative)
== END ==
LOC: M LAB 15:09
PROVIDERS: ATTEND Physician Assistant
DX: M25.50 Pain in unspecified joint (principal)

== ENCOUNTER → 2022-05-11 | Outpatient (CLI) | payer OTHER ==
[~2022-05-11] MED LIST changes: -CHOL4POW15 PO; +CHOL4POW26 PO
== END ==
LOC: M PAIN 14:15
PROVIDERS: ATTEND Nurse Practitioner Family
DX: M79.10 Myalgia, unspecified site (principal); G89.29 Other chronic pain; E11.9 Type 2 diabetes mellitus without complications; K21.9 Gastro-esophageal reflux disease without esophagitis; J45.909 Unspecified asthma, uncomplicated; G43.909 Migraine, unspecified, not intractable, without status migrainosus; M79.7 Fibromyalgia; Z86.59 Personal history of other mental and behavioral disorders; Z87.891 Personal history of nicotine dependence; Z88.1 Allergy status to other antibiotic agents; Z88.8 Allergy status to other drugs, medicaments and biological substances; Z91.013 Allergy to seafood; Z91.040 Latex allergy status; Z79.82 Long term (current) use of aspirin; Z79.84 Long term (current) use of oral hypoglycemic drugs; Z79.899 Other long term (current) drug therapy

== ENCOUNTER → 2022-06-02 | Outpatient (CLI) | payer OTHER ==
[2022-06-02 14:21] LABS: C REACTIVE PROTEIN QUANTITATIV < 0.30 MG/DL (0.00-0.30); URIC ACID 2.1 MG/DL (2.6-6.0)
[2022-06-02 15:31] LABS: HEMOGLOBIN A1c 6.1 %
== END ==
LOC: M PLAIMG 09:55
PROVIDERS: ATTEND Student in an Organized Health Care Education/Training Program
DX: M19.041 Primary osteoarthritis, right hand (principal); M19.042 Primary osteoarthritis, left hand; R23.8 Other skin changes

== ENCOUNTER → 2022-07-24 | Outpatient (CLI) | payer OTHER | LOC: M LABSMTC 11:39 | PROVIDERS: ATTEND Anesthesiology | DX: Z01.812 Encounter for preprocedural laboratory examination (principal); Z11.52 Encounter for screening for COVID-19 ==

== ENCOUNTER → 2022-07-27 | Outpatient (CLI) | payer OTHER ==
[~2022-07-27] MED LIST changes: +BUPIVACAINE HCL 0.25% 10ML VIAL As Ordered ONE; +BUPIVACAINE HCL 0.25% 30ML VIAL As Ordered ONE; +TRIAMCINOLONE ACETONIDE SUSP 40MG/ML 1ML VIAL As Ordered ONE
== END ==
LOC: M PAIN 10:30
PROVIDERS: ATTEND Anesthesiology
DX: M79.12 Myalgia of auxiliary muscles, head and neck (principal); G89.29 Other chronic pain; E11.9 Type 2 diabetes mellitus without complications; K21.9 Gastro-esophageal reflux disease without esophagitis; J45.909 Unspecified asthma, uncomplicated; G43.709 Chronic migraine without aura, not intractable, without status migrainosus; M79.7 Fibromyalgia; Z86.59 Personal history of other mental and behavioral disorders; Z87.891 Personal history of nicotine dependence; Z88.1 Allergy status to other antibiotic agents; Z88.8 Allergy status to other drugs, medicaments and biological substances; Z91.013 Allergy to seafood; Z91.040 Latex allergy status; Z79.82 Long term (current) use of aspirin; Z79.84 Long term (current) use of oral hypoglycemic drugs; Z79.899 Other long term (current) drug therapy; F32.A Depression, unspecified; M19.90 Unspecified osteoarthritis, unspecified site; H40.9 Unspecified glaucoma; M47.812 Spondylosis without myelopathy or radiculopathy, cervical region

== ENCOUNTER → 2022-08-17 | Outpatient (CLI) | payer OTHER ==
[~2022-08-17] MED LIST changes: -BUPIVACAINE HCL 0.25% 10ML VIAL As Ordered ONE; -BUPIVACAINE HCL 0.25% 30ML VIAL As Ordered ONE; -TRIAMCINOLONE ACETONIDE SUSP 40MG/ML 1ML VIAL As Ordered ONE
== END ==
LOC: M PAIN 10:45
PROVIDERS: ATTEND Nurse Practitioner Family
DX: M79.18 Myalgia, other site (principal); K21.9 Gastro-esophageal reflux disease without esophagitis; J45.909 Unspecified asthma, uncomplicated; G43.709 Chronic migraine without aura, not intractable, without status migrainosus; M19.90 Unspecified osteoarthritis, unspecified site; H40.9 Unspecified glaucoma; M47.812 Spondylosis without myelopathy or radiculopathy, cervical region; F32.A Depression, unspecified; M79.7 Fibromyalgia; N95.2 Postmenopausal atrophic vaginitis; M96.1 Postlaminectomy syndrome, not elsewhere classified; G56.03 Carpal tunnel syndrome, bilateral upper limbs; Z87.891 Personal history of nicotine dependence; Z79.82 Long term (current) use of aspirin; Z79.891 Long term (current) use of opiate analgesic; Z79.899 Other long term (current) drug therapy; Z88.1 Allergy status to other antibiotic agents; Z88.8 Allergy status to other drugs, medicaments and biological substances; Z91.040 Latex allergy status; Z91.013 Allergy to seafood; Z91.048 Other nonmedicinal substance allergy status

== ENCOUNTER → 2022-08-30 | Outpatient (CLI) | payer OTHER ==
[2022-08-30 13:47] LABS: BASO % 0.4 % (0.0-1.0); EOS # 0.1 10^3/uL (0.0-0.5); EOS % 1.5 % (0.0-3.0); HEMATOCRIT 43.3 % (36.0-47.0); HEMOGLOBIN 13.3 g/dl (12.0-15.5); LYMPH # 1.8 10^3/uL (1.5-5.0); LYMPH % 33.5 % (24.0-44.0); MEAN CORPUSCULAR HEMOGLOBIN 28.5 pg (27.0-33.0); MEAN CORPUSCULAR HGB CONC 30.7 g/dl (32.0-36.5); MEAN CORPUSCULAR VOLUME 92.9 fl (80.0-96.0); MONO # 0.4 10^3/uL (0.0-0.8); MONO % 6.4 % (2.0-8.0); NEUTROPHILS # 3.2 10^3/uL (1.5-8.5); NEUTROPHILS % 57.8 % (36.0-66.0); PLATELET COUNT, AUTOMATED 257 10^3/uL (150-450); RED BLOOD COUNT 4.66 10^6/uL (4.00-5.40); WHITE BLOOD COUNT 5.5 10^3/uL (4.0-10.0)
[2022-08-30 14:15] LABS: ALBUMIN 3.4 G/DL (3.2-5.2); ALKALINE PHOSPHATASE 88 U/L (46-116); ALT/SGPT 36 U/L (7.0-40); AST/SGOT 47 U/L (<34); BILIRUBIN,TOTAL 0.6 MG/DL (0.3-1.2); BLOOD UREA NITROGEN 16 MG/DL (9-23); CALCIUM LEVEL 9.3 MG/DL (8.3-10.6); CARBON DIOXIDE LEVEL 28 MMOL/L (20-31); CHLORIDE LEVEL 103 MMOL/L (98-107); CHOLESTEROL LEVEL 204 MG/DL (<200); CHOLESTEROL RISK RATIO 1.81 (<5); CREATININE FOR GFR 0.58 MG/DL (0.55-1.30); GLOMERULAR FILTRATION RATE > 60.0 (>45); GLUCOSE, FASTING 88 MG/DL (74-106); HDL CHOLESTEROL 112.3 MG/DL (>40); LDL CHOLESTEROL 65.1 MG/DL (<100); NON-HDL-C 92 MG/DL; POTASSIUM SERUM 4.6 MMOL/L (3.5-5.1); SODIUM LEVEL 140 MMOL/L (136-145); TOTAL PROTEIN 6.2 G/DL (5.7-8.2); TRIGLYCERIDES LEVEL 133 MG/DL (<150)
[2022-08-30 14:21] LABS: HEMOGLOBIN A1c 5.8 % (4.0-6.0)
== END ==
LOC: M PLALAB 11:17
PROVIDERS: ATTEND Student in an Organized Health Care Education/Training Program
DX: K21.9 Gastro-esophageal reflux disease without esophagitis (principal); R19.7 Diarrhea, unspecified; R73.03 Prediabetes; Z68.32 Body mass index [BMI] 32.0-32.9, adult

== ENCOUNTER → 2022-09-08 | Outpatient (CLI) | payer OTHER ==
[2022-09-08 11:30] LABS: LIPASE 26 U/L (12-53)
[2022-09-08 11:32] LABS: C REACTIVE PROTEIN QUANTITATIV < 0.40 MG/DL (<1.0)
== END ==
LOC: M LAB 10:27
PROVIDERS: ATTEND Student in an Organized Health Care Education/Training Program
DX: R10.13 Epigastric pain (principal)

== ENCOUNTER → 2022-09-28 | Outpatient (CLI) | payer OTHER ==
[~2022-09-28] MED LIST changes: +GASTROGRAFIN SOLUTION 30ML As Ordered ONE; +ISOVUE-370 76% 100ML VIAL As Ordered ONE
== END ==
LOC: M RAD 12:24
PROVIDERS: ATTEND Student in an Organized Health Care Education/Training Program
DX: R10.13 Epigastric pain (principal); Z90.49 Acquired absence of other specified parts of digestive tract

== ENCOUNTER → 2022-10-11 | Outpatient (CLI) | payer OTHER ==
[~2022-10-11] MED LIST changes: -GASTROGRAFIN SOLUTION 30ML As Ordered ONE; -ISOVUE-370 76% 100ML VIAL As Ordered ONE
== END ==
LOC: M WHC 10:26
PROVIDERS: ATTEND Advanced Practice Midwife
DX: Z12.31 Encounter for screening mammogram for malignant neoplasm of breast (principal)

== ENCOUNTER → 2022-10-11 | Outpatient (REF) | payer OTHER ==
[2022-10-11 16:37] LABS: GC DNA AMPLIFICATION NEGATIVE (NEGATIVE)
== END ==
LOC: M PLALAB 11:59
PROVIDERS: ATTEND Advanced Practice Midwife
DX: Z01.419 Encounter for gynecological examination (general) (routine) without abnormal findings (principal); Z12.72 Encounter for screening for malignant neoplasm of vagina

== ENCOUNTER → 2022-10-12 | Outpatient (CLI) | payer OTHER | LOC: M PAIN 15:45 | PROVIDERS: ATTEND Nurse Practitioner Family | DX: M50.10 Cervical disc disorder with radiculopathy, unspecified cervical region (principal); G89.29 Other chronic pain; E11.9 Type 2 diabetes mellitus without complications; K21.9 Gastro-esophageal reflux disease without esophagitis; J45.909 Unspecified asthma, uncomplicated; G43.909 Migraine, unspecified, not intractable, without status migrainosus; M79.7 Fibromyalgia; Z86.59 Personal history of other mental and behavioral disorders; Z87.891 Personal history of nicotine dependence; Z88.1 Allergy status to other antibiotic agents; Z88.8 Allergy status to other drugs, medicaments and biological substances; Z91.013 Allergy to seafood; Z91.040 Latex allergy status; Z79.82 Long term (current) use of aspirin; Z79.84 Long term (current) use of oral hypoglycemic drugs; Z79.899 Other long term (current) drug therapy ==

== ENCOUNTER 2022-12-12 11:48 | Observation (INO) | payer OTHER ==
[~2022-12-12] VITALS: Ht 154.9 cm; Wt 80.2 kg
[~2022-12-12 11:48] MED LIST changes: +CROM4SOL4 OU; -CROM5SOL OU; -DULE100A INH; -KETO0.02 OU; +KETO5DRO33 OU; +MOME13HF8 INH; -ORPH100T2 PO; +ORPH100T48 PO; +TRIA55AE2; -TRIA55AE2 NARES
[2022-12-12 14:12] LABS: BASO % 0.4 % (0.0-1.0); EOS % 0.2 % (0.0-3.0); HEMATOCRIT 41.4 % (36.0-47.0); HEMOGLOBIN 13.3 g/dl (12.0-15.5); LYMPH % 18.4 % (24.0-44.0); MEAN CORPUSCULAR HGB CONC 32.1 g/dl (32.0-36.5); MEAN CORPUSCULAR VOLUME 90.2 fl (80.0-96.0); MONO # 0.2 10^3/uL (0.0-0.8); MONO % 4.3 % (2.0-8.0); NEUTROPHILS # 4.2 10^3/uL (1.5-8.5); NEUTROPHILS % 76.3 % (36.0-66.0); PLATELET COUNT, AUTOMATED 207 10^3/uL (150-450); RED BLOOD COUNT 4.59 10^6/uL (4.00-5.40); WHITE BLOOD COUNT 5.5 10^3/uL (4.0-10.0)
[2022-12-12 14:27] LABS: CK-MB VALUE MASS < 1.0 NG/ML (<3.6)
[2022-12-12 14:29] LABS: ALBUMIN 3.2 G/DL (3.2-5.2); ALKALINE PHOSPHATASE 77 U/L (46-116); ALT/SGPT 63 U/L (7.0-40); AST/SGOT 83 U/L (<34); BILIRUBIN,DIRECT 0.1 MG/DL (<0.4); BILIRUBIN,TOTAL 0.6 MG/DL (0.3-1.2); BLOOD UREA NITROGEN 17 MG/DL (9-23); CALCIUM LEVEL 8.3 MG/DL (8.3-10.6); CARBON DIOXIDE LEVEL 26 MMOL/L (20-31); CHLORIDE LEVEL 103 MMOL/L (98-107); GLOMERULAR FILTRATION RATE > 60.0 (>45); GLUCOSE, FASTING 106 MG/DL (74-106); POTASSIUM SERUM 4.2 MMOL/L (3.5-5.1); SODIUM LEVEL 137 MMOL/L (136-145); TOTAL PROTEIN 5.8 G/DL (5.7-8.2)
[2022-12-12 14:31] LABS: THYROID STIMULATING HORMONE 1.294 uIU/ML (0.55-4.78)
[2022-12-12 14:35] LABS: CPK CREATINE PHOSPHOKINASE 62 U/L (34-145); MB/CK RELATIVE INDEX 1.61 (< OR =4)
[2022-12-12] MEDS ORDERED: NS 1,000 ML IV ONE (15:15)
[2022-12-12] MEDS ORDERED: MECLIZINE 25 MG TABLET PO ONE (15:20)
[2022-12-12] MEDS ORDERED: PANTOPRAZOLE 40MG VIAL IV ONE (15:20)
[2022-12-12] MEDS ORDERED: ACETAMINOPHEN 1000MG 100ML IV BAG IV ONE (15:20)
[2022-12-12 16:38] VITALS: BP 169/84
[2022-12-12] MEDS ORDERED: diphenhydrAMINE 50MG/ML VIAL IV STA (16:59)
[2022-12-12] MEDS ORDERED: ONDANSETRON 4MG 2ML VIAL IV ONE (17:00)
[2022-12-12 17:54] LABS: RSV AMPLIFICATION NEGATIVE (NEGATIVE)
[2022-12-12 18:07] LABS: CK-MB VALUE MASS < 1.0 NG/ML (<3.6)
[2022-12-12 18:10] LABS: CPK CREATINE PHOSPHOKINASE 56 U/L (34-145); MB/CK RELATIVE INDEX 1.78 (< OR =4)
[2022-12-12 18:23] LABS: INR 0.87
[2022-12-12 18:24] LABS: PARTIAL THROMBOPLASTIN TIME 22.6 SECONDS (24.8-34.2)
[2022-12-12] MEDS ORDERED: ISOVUE-370 76% 100ML VIAL As Ordered ONE (18:55)
[2022-12-12] MEDS ORDERED: diazePAM 10MG/2ML SYRINGE IV ONE (21:15)
[2022-12-12] MEDS ORDERED: KETO5DRO33 OU (23:08)
[2022-12-12] MEDS ORDERED: ESTR1CRE VA (23:08)
[2022-12-12] MEDS ORDERED: ALBU2.5V10 INH (23:08)
[2022-12-12] MEDS ORDERED: NORT10CA2 PO (23:08)
[2022-12-12] MEDS ORDERED: FLUT50SP33 (23:08)
[2022-12-12] MEDS ORDERED: METF-838 PO (23:08)
[2022-12-12] MEDS ORDERED: ESTR1TAB PO (23:08)
[2022-12-12] MEDS ORDERED: FAMO10TA52 PO (23:08)
[2022-12-12] MEDS ORDERED: HOME MED LIST COMPLETE! XX SCH (23:10)
[2022-12-12] MEDS ORDERED: CYCLOBENZAPRINE 10MG TABLET PO PRN (23:15)
[2022-12-12] MEDS ORDERED: MECLIZINE 25 MG TABLET PO PRN (23:15)
[2022-12-12] MEDS ORDERED: ONDANSETRON 4MG ORAL DISINTEGRATING TAB PO PRN (23:15)
[2022-12-12] MEDS ORDERED: LORazepam 0.5 MG TAB PO ONE (23:15)
[2022-12-12] MEDS ORDERED: ALBUTEROL 90 MCG/ACT 8GM HFA INHALER INH PRN (23:15)
[2022-12-12] MEDS ORDERED: traMADol 50 MG TAB PO PRN (23:15)
[2022-12-12] MEDS ORDERED: PILL CUTTER 1 EACH XX PRN (23:35)
[2022-12-13] VITALS (9 sets, daily range): BP systolic 88–117; BP diastolic 46–69
[2022-12-13] MEDS: PREGABALIN 75 MG CAP(LYRICA) PO SCH ×3 (00:27→16:44)
[2022-12-13] MEDS: RIZATRIPTAN BENZOATE 10 MG TAB PO PRN ×2 (01:45→14:29)
[2022-12-13] MEDS ORDERED: SODIUM CHLORIDE 0.9% 1000ML IV ONE (02:00)
[2022-12-13] MEDS ORDERED: diphenhydrAMINE 50MG/ML VIAL IV ONE (02:00)
[2022-12-13] MEDS ORDERED: PROCHLORPERAZINE 10MG 2ML VIAL IV ONE (02:00)
[2022-12-13 07:22] LABS: BLOOD UREA NITROGEN 12 MG/DL (9-23); CARBON DIOXIDE LEVEL 29 MMOL/L (20-31); CHLORIDE LEVEL 109 MMOL/L (98-107); CREATININE FOR GFR 0.59 MG/DL (0.55-1.30); GLOMERULAR FILTRATION RATE > 60.0 (>45); GLUCOSE, FASTING 91 MG/DL (74-106); POTASSIUM SERUM 3.6 MMOL/L (3.5-5.1); SODIUM LEVEL 144 MMOL/L (136-145)
[2022-12-13] MEDS: ADVAIR HFA 115/21MCG INHALER INH SCH ×2 (08:00→19:14)
[2022-12-13] MEDS: ATORVASTATIN 20 MG TAB PO SCH (08:46)
[2022-12-13] MEDS: PANTOPRAZOLE 40MG TAB (PROTONIX) PO SCH (08:46)
[2022-12-13] MEDS: ASPIRIN 81MG ENTERIC TABLET PO SCH (08:46)
[2022-12-13] MEDS: SUCRALFATE 1 GM TAB PO SCH ×2 (08:46→16:45)
[2022-12-13] MEDS: DULoxetine 20MG CAP (CYMBALTA) PO SCH (09:27)
[2022-12-13] MEDS ORDERED: BISACODYL 10MG SUPP PR ONE (11:20)
[2022-12-13] MEDS ORDERED: NS 1,000 ML IV SCH (12:00)
[2022-12-13] MEDS: GASTROGRAFIN SOLUTION 30ML PO SCH ×2 (17:57→18:36)
[2022-12-13] MEDS ORDERED: RIVAROXABAN 10MG TAB (XARELTO) PO SCH (18:00)
[2022-12-13] MEDS ORDERED: ISOVUE-370 76% 100ML VIAL As Ordered ONE (19:24)
[2022-12-13] MEDS ORDERED: NORTRIPTYLINE 10 MG CAP PO SCH (21:00)
[2022-12-13] MEDS ORDERED: NS 1,000 ML IV ONE (22:20)
[2022-12-14] MEDS ORDERED: GLUCOSE 4GM CHEW TABLET PO PRN (00:05)
[2022-12-14] MEDS ORDERED: GLUCAGON INJ 1MG VIAL SC PRN (00:05)
[2022-12-14] MEDS ORDERED: DEXTROSE 50% 50ML SYRINGE IV PRN (00:05)
[2022-12-14 00:50] VITALS: BP 108/60
[2022-12-14] MEDS: PREGABALIN 75 MG CAP(LYRICA) PO SCH ×2 (00:59→08:17)
[2022-12-14] MEDS: PANTOPRAZOLE 40MG TAB (PROTONIX) PO SCH ×2 (00:59→08:17)
[2022-12-14] MEDS: FLUTICASONE PROP 0.05% NASAL SPRAY 16 GM (FLONASE) NARES SCH ×2 (01:00→08:17)
[2022-12-14 05:09] VITALS: BP 96/60
[2022-12-14] MEDS ORDERED: NS 500 ML IV ONE (05:25)
[2022-12-14 06:08] LABS: BASO % 0.3 % (0.0-1.0); EOS # 0.1 10^3/uL (0.0-0.5); EOS % 1.5 % (0.0-3.0); HEMOGLOBIN 11.4 g/dl (12.0-15.5); LYMPH # 1.5 10^3/uL (1.5-5.0); LYMPH % 38.6 % (24.0-44.0); MEAN CORPUSCULAR HEMOGLOBIN 28.7 pg (27.0-33.0); MEAN CORPUSCULAR HGB CONC 30.8 g/dl (32.0-36.5); MEAN CORPUSCULAR VOLUME 93.2 fl (80.0-96.0); MONO # 0.3 10^3/uL (0.0-0.8); MONO % 8.5 % (2.0-8.0); NEUTROPHILS % 50.6 % (36.0-66.0); PLATELET COUNT, AUTOMATED 185 10^3/uL (150-450); RED BLOOD COUNT 3.97 10^6/uL (4.00-5.40)
[2022-12-14 06:31] LABS: BLOOD UREA NITROGEN 11 MG/DL (9-23); CALCIUM LEVEL 7.8 MG/DL (8.3-10.6); CARBON DIOXIDE LEVEL 28 MMOL/L (20-31); CHLORIDE LEVEL 111 MMOL/L (98-107); CREATININE FOR GFR 0.61 MG/DL (0.55-1.30); GLOMERULAR FILTRATION RATE > 60.0 (>45); GLUCOSE, FASTING 105 MG/DL (74-106); POTASSIUM SERUM 4.2 MMOL/L (3.5-5.1); SODIUM LEVEL 145 MMOL/L (136-145)
[2022-12-14 06:45] VITALS: BP 98/52
[2022-12-14] MEDS: INSULIN LISPRO (NovoLOG) PER UNIT SC SCH ×2 (07:30→12:00)
[2022-12-14] MEDS: ADVAIR HFA 115/21MCG INHALER INH SCH (07:36)
[2022-12-14] MEDS: SUCRALFATE 1 GM TAB PO SCH (08:17)
[2022-12-14] MEDS: ASPIRIN 81MG ENTERIC TABLET PO SCH (08:17)
[2022-12-14] MEDS: DULoxetine 20MG CAP (CYMBALTA) PO SCH (08:17)
[2022-12-14] MEDS: ATORVASTATIN 20 MG TAB PO SCH (08:17)
[2022-12-14 08:34] LABS: HEMOGLOBIN A1c 6.2 % (4.0-6.0)
[2022-12-14 11:12] VITALS: BP 118/70
[2022-12-14] MEDS ORDERED: MECL-86 PO (11:48)
[2022-12-14 14:00] VITALS: BP 107/65
[2022-12-14] MEDS ORDERED: INSULIN LISPRO (NovoLOG) PER UNIT SC SCH (21:00)
== END 2022-12-14 16:53 | disposition home or self-care (01) ==
LOC: EDBD 11:48 → M ED 11:48 → M ED INP 11:49 → INTOOBSV 22:06 → M ED INP 22:06 → UNDOADMOB 22:06 → M MSPAV 23:30 → M ED INP 23:30
PROVIDERS: ADMIT Internal Medicine; ATTEND Internal Medicine
DX: H81.10 Benign paroxysmal vertigo, unspecified ear (principal); R10.13 Epigastric pain; K58.0 Irritable bowel syndrome with diarrhea; E11.9 Type 2 diabetes mellitus without complications; K21.9 Gastro-esophageal reflux disease without esophagitis; F32.A Depression, unspecified; J30.9 Allergic rhinitis, unspecified; M79.7 Fibromyalgia; M62.838 Other muscle spasm; Z79.82 Long term (current) use of aspirin; Z79.899 Other long term (current) drug therapy; Z79.51 Long term (current) use of inhaled steroids; Z91.040 Latex allergy status; Z88.5 Allergy status to narcotic agent; Z91.013 Allergy to seafood; Z88.1 Allergy status to other antibiotic agents
CPT/HCPCS: 36415; 70450; 70544; 70551; 71275; 72125; 74021; 74160; 74174; 80047; 80048; 80076; 81002; 82550; 82553; 83036; 84443; 85025; 85610; 85730; 87631; 93005; 93041; 94640; 94760; 96361; 96374; 96375; 96376; 97112; 97161; 99285; C9113; J0131; J0780; J1200; J2405; J3360; Q9963; Q9967

== ENCOUNTER → 2023-01-15 | Outpatient (CLI) | payer OTHER ==
[~2023-01-15] MED LIST changes: +ESTR1CRE VA; +FAMO10TA52 PO; +FLUT50SP33; +MECL-86 PO; +METF-838 PO; +NORT10CA2 PO
== END ==
LOC: M PAIN 13:45
PROVIDERS: ATTEND Nurse Practitioner Family
DX: M79.10 Myalgia, unspecified site (principal); K58.0 Irritable bowel syndrome with diarrhea; K21.9 Gastro-esophageal reflux disease without esophagitis; J45.909 Unspecified asthma, uncomplicated; G43.709 Chronic migraine without aura, not intractable, without status migrainosus; H40.9 Unspecified glaucoma; M79.7 Fibromyalgia; F32.A Depression, unspecified; N95.2 Postmenopausal atrophic vaginitis; Z79.891 Long term (current) use of opiate analgesic; Z79.899 Other long term (current) drug therapy; Z79.84 Long term (current) use of oral hypoglycemic drugs; Z87.891 Personal history of nicotine dependence; Z91.040 Latex allergy status; Z91.013 Allergy to seafood; Z88.1 Allergy status to other antibiotic agents; Z88.8 Allergy status to other drugs, medicaments and biological substances

== ENCOUNTER → 2023-02-08 | Outpatient (CLI) | payer OTHER ==
[2023-02-08 11:34] LABS: BASO % 0.5 % (0.0-1.0); EOS % 1.1 % (0.0-3.0); HEMATOCRIT 40.1 % (36.0-47.0); HEMOGLOBIN 12.6 g/dl (12.0-15.5); LYMPH # 1.2 10^3/uL (1.5-5.0); LYMPH % 33.3 % (24.0-44.0); MEAN CORPUSCULAR HEMOGLOBIN 28.7 pg (27.0-33.0); MEAN CORPUSCULAR HGB CONC 31.4 g/dl (32.0-36.5); MEAN CORPUSCULAR VOLUME 91.3 fl (80.0-96.0); MONO # 0.3 10^3/uL (0.0-0.8); MONO % 7.5 % (2.0-8.0); NEUTROPHILS # 2.1 10^3/uL (1.5-8.5); NEUTROPHILS % 57.3 % (36.0-66.0); PLATELET COUNT, AUTOMATED 211 10^3/uL (150-450); RED BLOOD COUNT 4.39 10^6/uL (4.00-5.40); WHITE BLOOD COUNT 3.7 10^3/uL (4.0-10.0)
[2023-02-08 11:54] LABS: HEMOGLOBIN A1c 6.2 % (4.0-6.0)
[2023-02-08 12:00] LABS: ALBUMIN 3.5 G/DL (3.2-5.2); ALKALINE PHOSPHATASE 81 U/L (46-116); ALT/SGPT 41 U/L (7.0-40); AST/SGOT 44 U/L (<34); BILIRUBIN,TOTAL 0.7 MG/DL (0.3-1.2); BLOOD UREA NITROGEN 14 MG/DL (9-23); CALCIUM LEVEL 8.1 MG/DL (8.3-10.6); CARBON DIOXIDE LEVEL 28 MMOL/L (20-31); CHLORIDE LEVEL 106 MMOL/L (98-107); CREATININE FOR GFR 0.56 MG/DL (0.55-1.30); GLOMERULAR FILTRATION RATE > 60.0 (>45); GLUCOSE, FASTING 92 MG/DL (74-106); POTASSIUM SERUM 3.5 MMOL/L (3.5-5.1); SODIUM LEVEL 140 MMOL/L (136-145); TOTAL PROTEIN 5.8 G/DL (5.7-8.2)
[2023-02-09 20:07] LABS: TISSUE TRANSGLUTAMINASE IgA <2 U/mL (0-3); TISSUE TRANSGLUTAMINASE IgG 5 U/mL (0-5); UNITSIGA FOR GLIADIN IGA 8 units (0-19); UNITSIGG FOR GLIADIN IGG 2 units (0-19)
== END ==
LOC: M PLALAB 08:16
PROVIDERS: ATTEND Student in an Organized Health Care Education/Training Program
DX: K52.9 Noninfective gastroenteritis and colitis, unspecified (principal)

== ENCOUNTER → 2023-03-12 | Outpatient (CLI) | payer OTHER ==
[~2023-03-12] MED LIST changes: +CELE0.09 PO; -CELE1CAP9 PO; +TRIAMCINOLONE ACETONIDE SUSP 40MG/ML 1ML VIAL As Ordered ONE
== END ==
LOC: M PAIN 10:30
PROVIDERS: ATTEND Anesthesiology
DX: M79.18 Myalgia, other site (principal); G89.29 Other chronic pain; E11.9 Type 2 diabetes mellitus without complications; G47.33 Obstructive sleep apnea (adult) (pediatric); K21.9 Gastro-esophageal reflux disease without esophagitis; J45.909 Unspecified asthma, uncomplicated; G43.909 Migraine, unspecified, not intractable, without status migrainosus; M79.7 Fibromyalgia; Z86.59 Personal history of other mental and behavioral disorders; Z87.891 Personal history of nicotine dependence; Z88.1 Allergy status to other antibiotic agents; Z88.8 Allergy status to other drugs, medicaments and biological substances; Z91.013 Allergy to seafood; Z91.040 Latex allergy status; Z79.899 Other long term (current) drug therapy
CPT/HCPCS: J0665; J3301

== ENCOUNTER → 2023-05-10 | Outpatient (CLI) | payer OTHER ==
[~2023-05-10] MED LIST changes: -TRIAMCINOLONE ACETONIDE SUSP 40MG/ML 1ML VIAL As Ordered ONE
== END ==
LOC: M PAIN 13:45
PROVIDERS: ATTEND Nurse Practitioner Family
DX: M79.10 Myalgia, unspecified site (principal); G89.29 Other chronic pain; E11.9 Type 2 diabetes mellitus without complications; G47.30 Sleep apnea, unspecified; K21.9 Gastro-esophageal reflux disease without esophagitis; J45.909 Unspecified asthma, uncomplicated; G43.909 Migraine, unspecified, not intractable, without status migrainosus; M79.7 Fibromyalgia; Z87.891 Personal history of nicotine dependence; Z86.59 Personal history of other mental and behavioral disorders; Z88.1 Allergy status to other antibiotic agents; Z88.8 Allergy status to other drugs, medicaments and biological substances; Z91.013 Allergy to seafood; Z91.040 Latex allergy status; Z79.82 Long term (current) use of aspirin; Z79.899 Other long term (current) drug therapy

== ENCOUNTER → 2023-06-21 | Outpatient (CLI) | payer OTHER | LOC: M PAIN 14:15 | PROVIDERS: ATTEND Nurse Practitioner Family | DX: M79.12 Myalgia of auxiliary muscles, head and neck (principal); Z79.891 Long term (current) use of opiate analgesic; G89.29 Other chronic pain; E11.9 Type 2 diabetes mellitus without complications; G47.30 Sleep apnea, unspecified; K21.9 Gastro-esophageal reflux disease without esophagitis; J45.909 Unspecified asthma, uncomplicated; G43.909 Migraine, unspecified, not intractable, without status migrainosus; Z87.891 Personal history of nicotine dependence; Z86.59 Personal history of other mental and behavioral disorders; Z88.1 Allergy status to other antibiotic agents; Z88.8 Allergy status to other drugs, medicaments and biological substances; Z91.013 Allergy to seafood; Z91.040 Latex allergy status; Z79.82 Long term (current) use of aspirin; Z79.899 Other long term (current) drug therapy ==

== ENCOUNTER 2023-06-25 07:54 | Day surgery (SDC) | payer OTHER ==
[~2023-06-25] VITALS: Ht 154.9 cm; Wt 78.0 kg
[~2023-06-25 07:54] MED LIST changes: +LIDOCAINE 2% 100MG/5ML SDV (FOR ANES.) As Ordered ONE; +NS 1,000 ML IV ONE; +propofoL 200 MG/20 ML VIAL As Ordered ONE
[2023-06-25] MEDS ORDERED: propofoL 200 MG/20 ML VIAL As Ordered ONE (09:01)
[2023-06-25 09:16] VITALS: TEMP 97.5
[2023-06-25 09:50] VITALS: BP 105/61; O2SAT 96
== END 2023-06-25 09:52 | disposition home or self-care (01) ==
LOC: M OPP 07:54
PROVIDERS: ATTEND Internal Medicine Gastroenterology
DX: K58.9 Irritable bowel syndrome, unspecified (principal); K64.0 First degree hemorrhoids; K63.5 Polyp of colon; R19.4 Change in bowel habit; K22.89 Other specified disease of esophagus; K22.70 Barrett's esophagus without dysplasia; Z79.02 Long term (current) use of antithrombotics/antiplatelets; Z79.51 Long term (current) use of inhaled steroids; Z79.52 Long term (current) use of systemic steroids; Z79.82 Long term (current) use of aspirin; Z79.84 Long term (current) use of oral hypoglycemic drugs; Z79.891 Long term (current) use of opiate analgesic; Z79.899 Other long term (current) drug therapy; Z88.5 Allergy status to narcotic agent; Z88.8 Allergy status to other drugs, medicaments and biological substances; Z91.030 Bee allergy status; Z91.040 Latex allergy status; G57.30 Lesion of lateral popliteal nerve, unspecified lower limb

== ENCOUNTER → 2023-07-12 | Outpatient (CLI) | payer OTHER ==
[~2023-07-12] MED LIST changes: -LIDOCAINE 2% 100MG/5ML SDV (FOR ANES.) As Ordered ONE; -NS 1,000 ML IV ONE; -propofoL 200 MG/20 ML VIAL As Ordered ONE
== END ==
LOC: M PAIN 17:00
PROVIDERS: ATTEND Nurse Practitioner Family
DX: M79.10 Myalgia, unspecified site (principal); G89.29 Other chronic pain; M54.2 Cervicalgia; Z87.891 Personal history of nicotine dependence; Z88.1 Allergy status to other antibiotic agents; Z88.8 Allergy status to other drugs, medicaments and biological substances; Z91.013 Allergy to seafood; Z91.040 Latex allergy status; Z79.82 Long term (current) use of aspirin; Z79.899 Other long term (current) drug therapy

== ENCOUNTER → 2023-11-08 | Outpatient (CLI) | payer OTHER | LOC: M PAIN 14:30 | PROVIDERS: ATTEND Nurse Practitioner Family | DX: M96.1 Postlaminectomy syndrome, not elsewhere classified (principal); Z79.891 Long term (current) use of opiate analgesic; M79.18 Myalgia, other site; G89.29 Other chronic pain; M54.2 Cervicalgia; K58.0 Irritable bowel syndrome with diarrhea; K21.9 Gastro-esophageal reflux disease without esophagitis; J45.909 Unspecified asthma, uncomplicated; G43.709 Chronic migraine without aura, not intractable, without status migrainosus; H40.9 Unspecified glaucoma; M47.812 Spondylosis without myelopathy or radiculopathy, cervical region; F32.A Depression, unspecified; Z87.891 Personal history of nicotine dependence; Z79.82 Long term (current) use of aspirin; Z79.899 Other long term (current) drug therapy; Z88.1 Allergy status to other antibiotic agents; Z88.8 Allergy status to other drugs, medicaments and biological substances; Z91.040 Latex allergy status; Z91.048 Other nonmedicinal substance allergy status; Z91.013 Allergy to seafood ==

== ENCOUNTER → 2023-11-29 | Outpatient (CLI) | payer OTHER ==
[2023-11-29 18:42] LABS: HIV 1&2 SCREEN NEGATIVE (NEGATIVE)
[2023-11-29 18:50] LABS: HEPATITIS C VIRUS ABY INDEX < 0.02 INDEX (<0.8)
[2023-11-29 18:53] LABS: Trichomonas vaginalis (AMP) NOT DETECTED (NEGATIVE)
[2023-11-29 19:18] LABS: GC DNA AMPLIFICATION NEGATIVE (NEGATIVE)
== END ==
LOC: M PLALAB 15:14
PROVIDERS: ATTEND Advanced Practice Midwife
DX: Z01.419 Encounter for gynecological examination (general) (routine) without abnormal findings (principal); Z11.3 Encounter for screening for infections with a predominantly sexual mode of transmission; A60.00 Herpesviral infection of urogenital system, unspecified

== ENCOUNTER → 2023-11-29 | Outpatient (CLI) | payer OTHER | LOC: M WHC 13:13 | PROVIDERS: ATTEND Advanced Practice Midwife | DX: Z12.31 Encounter for screening mammogram for malignant neoplasm of breast (principal) ==

== ENCOUNTER → 2023-11-29 | Outpatient (REF) | payer OTHER | LOC: M PLALAB 14:55 | PROVIDERS: ATTEND Advanced Practice Midwife | DX: Z53.9 Procedure and treatment not carried out, unspecified reason (principal) ==

== ENCOUNTER → 2023-12-06 | Outpatient (CLI) | payer OTHER ==
[~2023-12-06] MED LIST changes: +PROHANCE 279.3MG/ML 15ML VIAL As Ordered ONE; +PROHANCE 279.3MG/ML 5ML VIAL As Ordered ONE
== END ==
LOC: M RAD 08:45
PROVIDERS: ATTEND Nurse Practitioner Family
DX: M96.1 Postlaminectomy syndrome, not elsewhere classified (principal)
CPT/HCPCS: 72156; A9576

== ENCOUNTER → 2023-12-19 | Outpatient (CLI) | payer MEDICARE, OTHER ==
[~2023-12-19] MED LIST changes: +DIPH1TAB80 PO; -DIPH2.5T14 PO; -PROHANCE 279.3MG/ML 15ML VIAL As Ordered ONE; -PROHANCE 279.3MG/ML 5ML VIAL As Ordered ONE
[2023-12-22 18:07] LABS: CALPROTECTIN STOOL 83 ug/g (0-120)
[2023-12-23 20:07] LABS: PANCREATIC ELASTASE STOOL 402 (>200)
== END ==
LOC: M LAB 10:48
PROVIDERS: ATTEND Internal Medicine Gastroenterology
DX: K58.0 Irritable bowel syndrome with diarrhea (principal)

== ENCOUNTER → 2023-12-19 | Outpatient (CLI) | payer OTHER | LOC: M PAIN 11:15 | PROVIDERS: ATTEND Anesthesiology | DX: M79.18 Myalgia, other site (principal); M54.2 Cervicalgia; M96.1 Postlaminectomy syndrome, not elsewhere classified; Z79.891 Long term (current) use of opiate analgesic; Z79.899 Other long term (current) drug therapy; Z88.1 Allergy status to other antibiotic agents; Z91.018 Allergy to other foods; Z91.040 Latex allergy status; Z87.891 Personal history of nicotine dependence ==

== ENCOUNTER → 2024-01-04 | Outpatient (CLI) | payer OTHER ==
[~2024-01-04] MED LIST changes: +E-Z-GAS II EFFERVESCENT PACKET (SODIUM BICARB./CITRIC ACID/SIMETHICONE) As Ordered ONE; +E-Z-HD 98% w/w 340GM SUSP BTL As Ordered ONE; +E-Z-PAQUE 96% w/w SUSP 176GM BTL As Ordered ONE
== END ==
LOC: M RAD 09:08
PROVIDERS: ATTEND Internal Medicine Gastroenterology
DX: K58.0 Irritable bowel syndrome with diarrhea (principal)

== ENCOUNTER → 2024-01-17 | Outpatient (CLI) | payer OTHER ==
[~2024-01-17] MED LIST changes: -E-Z-GAS II EFFERVESCENT PACKET (SODIUM BICARB./CITRIC ACID/SIMETHICONE) As Ordered ONE; -E-Z-HD 98% w/w 340GM SUSP BTL As Ordered ONE; -E-Z-PAQUE 96% w/w SUSP 176GM BTL As Ordered ONE
== END ==
LOC: M PAIN 16:30
PROVIDERS: ATTEND Nurse Practitioner Family
DX: M79.18 Myalgia, other site (principal); Z79.82 Long term (current) use of aspirin; Z79.891 Long term (current) use of opiate analgesic; Z79.899 Other long term (current) drug therapy

== ENCOUNTER → 2024-01-21 | Outpatient (CLI) | payer OTHER ==
[2024-01-21 15:20] LABS: C REACTIVE PROTEIN QUANTITATIV < 0.40 MG/DL (<1.0)
[2024-01-21 15:21] LABS: IMMUNOGLOBULIN A 115.2 MG/DL (40-350); IMMUNOGLOBULIN G 691 MG/DL (650-1600)
[2024-01-21 15:24] LABS: BASO % 0.5 % (0.0-1.0); EOS % 0.7 % (0.0-3.0); HEMATOCRIT 42.3 % (36.0-47.0); HEMOGLOBIN 13.9 g/dl (12.0-15.5); LYMPH # 1.5 10^3/uL (1.5-5.0); LYMPH % 27.4 % (24.0-44.0); MEAN CORPUSCULAR HEMOGLOBIN 30.5 pg (27.0-33.0); MEAN CORPUSCULAR HGB CONC 32.9 g/dl (32.0-36.5); MEAN CORPUSCULAR VOLUME 92.8 fl (80.0-96.0); MONO # 0.3 10^3/uL (0.0-0.8); NEUTROPHILS # 3.6 10^3/uL (1.5-8.5); PLATELET COUNT, AUTOMATED 250 10^3/uL (150-450); RED BLOOD COUNT 4.56 10^6/uL (4.00-5.40); WHITE BLOOD COUNT 5.5 10^3/uL (4.0-10.0)
[2024-01-22 12:09] LABS: %CD4 Pos Lymphs 44.5 % (30.8-58.5); ABS Lymphs 1.6 x10E3/uL (0.7-3.1); ABS Monocytes 0.3 x10E3/uL (0.1-0.9); ABS Neutophils 3.5 x10E3/uL (1.4-7.0); Abs CD4 Helper 712 /uL (359-1519); Abs CD8 Suppres 560 /uL (109-897); CD4/CD8 Ratio 1.27 (0.92-3.72); Eosinophils 1 % (Not Estab.); HCT 41.5 % (34.0-46.6); HSV TYPE II IgG SPECIFIC >23.60 index (0.00-0.90); Immature Grans 0 % (Not Estab.); Lymphocytes 29 % (Not Estab.); MCH 30.4 pg (26.6-33.0); MCHC 33.7 g/dL (31.5-35.7); MCV 90 fL (79-97); Monocytes 6 % (Not Estab.); Neutrophils 63 % (Not Estab.); Platelets 252 x10E3/uL (150-450); RBC 4.61 x10E6/uL (3.77-5.28); RDW 12.8 % (11.7-15.4); WBC 5.4 x10E3/uL (3.4-10.8)
== END ==
LOC: M PLALAB 12:24
PROVIDERS: ATTEND Internal Medicine Infectious Disease
DX: A60.00 Herpesviral infection of urogenital system, unspecified (principal)

== ENCOUNTER → 2024-01-31 | Outpatient (CLI) | payer OTHER | LOC: M PLALAB 13:47 | PROVIDERS: ATTEND Internal Medicine Gastroenterology | DX: K59.1 Functional diarrhea (principal) ==

== ENCOUNTER → 2024-02-27 | Outpatient (CLI) | payer OTHER ==
[~2024-02-27] MED LIST changes: +ONDA-282 PO; +ONDA-284 PO; -ONDA4TAB6 PO; -ONDA8TAB8 PO
== END ==
LOC: M PAIN 14:30
PROVIDERS: ATTEND Anesthesiology
DX: M54.2 Cervicalgia (principal); M79.18 Myalgia, other site; Z79.899 Other long term (current) drug therapy; Z87.891 Personal history of nicotine dependence

== ENCOUNTER → 2024-03-19 | Outpatient (CLI) | payer OTHER | LOC: M PAIN 10:15 | PROVIDERS: ATTEND Anesthesiology | DX: M96.1 Postlaminectomy syndrome, not elsewhere classified (principal); M54.2 Cervicalgia; M79.18 Myalgia, other site; G89.29 Other chronic pain; K58.0 Irritable bowel syndrome with diarrhea; K21.9 Gastro-esophageal reflux disease without esophagitis; J45.909 Unspecified asthma, uncomplicated; G43.709 Chronic migraine without aura, not intractable, without status migrainosus; H40.9 Unspecified glaucoma; M47.812 Spondylosis without myelopathy or radiculopathy, cervical region; F32.A Depression, unspecified; Z87.891 Personal history of nicotine dependence; Z79.891 Long term (current) use of opiate analgesic; Z79.82 Long term (current) use of aspirin; Z79.899 Other long term (current) drug therapy; Z88.1 Allergy status to other antibiotic agents; Z88.8 Allergy status to other drugs, medicaments and biological substances; Z91.013 Allergy to seafood; Z91.040 Latex allergy status; Z91.048 Other nonmedicinal substance allergy status ==

== ENCOUNTER → 2024-04-08 | Outpatient (CLI) | payer OTHER | LOC: M PAIN 16:30 | PROVIDERS: ATTEND Nurse Practitioner Family | DX: M79.18 Myalgia, other site (principal); Z79.891 Long term (current) use of opiate analgesic; G89.29 Other chronic pain; K58.0 Irritable bowel syndrome with diarrhea; K21.9 Gastro-esophageal reflux disease without esophagitis; J45.909 Unspecified asthma, uncomplicated; G43.709 Chronic migraine without aura, not intractable, without status migrainosus; H40.9 Unspecified glaucoma; M47.812 Spondylosis without myelopathy or radiculopathy, cervical region; F32.A Depression, unspecified; M96.1 Postlaminectomy syndrome, not elsewhere classified; Z87.891 Personal history of nicotine dependence; Z79.899 Other long term (current) drug therapy; Z88.1 Allergy status to other antibiotic agents; Z88.8 Allergy status to other drugs, medicaments and biological substances; Z91.013 Allergy to seafood; Z91.048 Other nonmedicinal substance allergy status ==

== ENCOUNTER → 2024-05-28 | Outpatient (CLI) | payer MEDICARE, OTHER | LOC: M PAIN 11:45 | PROVIDERS: ATTEND Anesthesiology | DX: M54.2 Cervicalgia (principal); M79.10 Myalgia, unspecified site; M96.1 Postlaminectomy syndrome, not elsewhere classified; G89.29 Other chronic pain; Z79.51 Long term (current) use of inhaled steroids; Z79.899 Other long term (current) drug therapy; Z87.891 Personal history of nicotine dependence; Z88.1 Allergy status to other antibiotic agents; Z88.8 Allergy status to other drugs, medicaments and biological substances; Z91.013 Allergy to seafood; Z91.040 Latex allergy status ==

== ENCOUNTER → 2024-06-16 | Outpatient (CLI) | payer MEDICARE | LOC: M PAIN 14:00 | PROVIDERS: ATTEND Nurse Practitioner Family | DX: Z79.891 Long term (current) use of opiate analgesic (principal) ==

== ENCOUNTER → 2024-07-04 | Outpatient (CLI) | payer MEDICARE | LOC: M PAIN 14:30 | PROVIDERS: ATTEND Nurse Practitioner Family | DX: Z79.891 Long term (current) use of opiate analgesic (principal); Z79.51 Long term (current) use of inhaled steroids; Z79.899 Other long term (current) drug therapy ==

== ENCOUNTER → 2024-07-14 | Outpatient (CLI) | payer MEDICARE | LOC: M PAIN 11:45 | PROVIDERS: ATTEND Nurse Practitioner Family | DX: M79.18 Myalgia, other site (principal); M96.1 Postlaminectomy syndrome, not elsewhere classified; M54.12 Radiculopathy, cervical region; G89.29 Other chronic pain; K58.0 Irritable bowel syndrome with diarrhea; K21.9 Gastro-esophageal reflux disease without esophagitis; J45.909 Unspecified asthma, uncomplicated; G43.709 Chronic migraine without aura, not intractable, without status migrainosus; H40.9 Unspecified glaucoma; Z87.891 Personal history of nicotine dependence; Z79.891 Long term (current) use of opiate analgesic; Z79.899 Other long term (current) drug therapy; Z88.1 Allergy status to other antibiotic agents; Z88.8 Allergy status to other drugs, medicaments and biological substances; Z91.013 Allergy to seafood; Z91.040 Latex allergy status; Z91.048 Other nonmedicinal substance allergy status ==

== ENCOUNTER → 2024-07-17 | Outpatient (CLI) | payer OTHER ==
[~2024-07-17] MED LIST changes: +TRIAMCINOLONE ACETONIDE SUSP 40MG/ML 1ML VIAL As Ordered ONE
== END ==
LOC: M PAIN 12:45
PROVIDERS: ATTEND Anesthesiology
DX: M79.12 Myalgia of auxiliary muscles, head and neck (principal); G89.29 Other chronic pain; K58.1 Irritable bowel syndrome with constipation; K21.9 Gastro-esophageal reflux disease without esophagitis; J45.909 Unspecified asthma, uncomplicated; G43.709 Chronic migraine without aura, not intractable, without status migrainosus; H40.9 Unspecified glaucoma; M47.812 Spondylosis without myelopathy or radiculopathy, cervical region; M96.1 Postlaminectomy syndrome, not elsewhere classified; Z87.891 Personal history of nicotine dependence; Z79.891 Long term (current) use of opiate analgesic; Z79.899 Other long term (current) drug therapy; Z88.1 Allergy status to other antibiotic agents; Z88.8 Allergy status to other drugs, medicaments and biological substances; Z91.013 Allergy to seafood; Z91.040 Latex allergy status; Z91.048 Other nonmedicinal substance allergy status
CPT/HCPCS: 20552; J0665; J3301

== ENCOUNTER → 2024-07-23 | Outpatient (REF) | payer OTHER, MEDICARE ==
[~2024-07-23] MED LIST changes: +DIPH1TAB81; +DULO-34; +ESTRADIOL; -TRIAMCINOLONE ACETONIDE SUSP 40MG/ML 1ML VIAL As Ordered ONE; +XIFA550T
== END ==
LOC: M LAB REF 12:24
PROVIDERS: ATTEND Internal Medicine Gastroenterology
DX: R19.7 Diarrhea, unspecified (principal)

== ENCOUNTER 2024-08-01 13:42 | Emergency (ER) | payer OTHER, MEDICARE ==
[~2024-08-01] VITALS: Ht 154.9 cm; Wt 85.5 kg
[~2024-08-01 13:42] MED LIST changes: -DIPH1TAB81; -DULO-34; -ESTRADIOL; -XIFA550T
[2024-08-01] MEDS ORDERED: ESTRADIOL (14:52)
[2024-08-01] MEDS ORDERED: DULO-34 (14:52)
[2024-08-01] MEDS ORDERED: XIFA550T (14:52)
[2024-08-01] MEDS ORDERED: DIPH1TAB81 (14:52)
[2024-08-01 15:11] LABS: BASO % 0.3 % (0.0-1.0); EOS # 0.1 10^3/uL (0.0-0.5); EOS % 0.9 % (0.0-3.0); HEMATOCRIT 42.1 % (36.0-47.0); HEMOGLOBIN 13.8 g/dl (12.0-15.5); LYMPH # 1.9 10^3/uL (1.5-5.0); LYMPH % 28.5 % (24.0-44.0); MEAN CORPUSCULAR HEMOGLOBIN 30.6 pg (27.0-33.0); MEAN CORPUSCULAR HGB CONC 32.8 g/dl (32.0-36.5); MEAN CORPUSCULAR VOLUME 93.3 fl (80.0-96.0); MONO # 0.4 10^3/uL (0.0-0.8); MONO % 5.3 % (2.0-8.0); NEUTROPHILS # 4.3 10^3/uL (1.5-8.5); NEUTROPHILS % 64.7 % (36.0-66.0); PLATELET COUNT, AUTOMATED 232 10^3/uL (150-450); RED BLOOD COUNT 4.51 10^6/uL (4.00-5.40); WHITE BLOOD COUNT 6.6 10^3/uL (4.0-10.0)
[2024-08-01 15:37] LABS: LIPASE 32 U/L (12-53)
[2024-08-01 15:39] LABS: ALBUMIN 3.2 G/DL (3.2-5.2); ALKALINE PHOSPHATASE 91 U/L (35-104); ALT/SGPT 26 U/L (7.0-40); AST/SGOT 25 U/L (<34); BILIRUBIN,DIRECT < 0.1 MG/DL (<0.4); BILIRUBIN,TOTAL 0.4 MG/DL (0.3-1.2); TOTAL PROTEIN 6.6 G/DL (5.7-8.2)
[2024-08-01] MEDS ORDERED: ISOVUE-370 76% 100ML VIAL As Ordered ONE (16:17)
[2024-08-01] MEDS: KETOROLAC 30 MG/ML 1ML VIAL IV ONE (16:27)
[2024-08-01 17:16] VITALS: BP 115/75; TEMP 96.9; O2SAT 96
[2024-08-01] MEDS: DICYCLOMINE 10 MG CAP PO ONE (17:16)
== END 2024-08-01 17:19 | disposition home or self-care (01) ==
LOC: M ED 13:42
DX: R10.9 Unspecified abdominal pain (principal); R19.7 Diarrhea, unspecified; K21.9 Gastro-esophageal reflux disease without esophagitis; J45.909 Unspecified asthma, uncomplicated; Z88.5 Allergy status to narcotic agent; Z88.8 Allergy status to other drugs, medicaments and biological substances; Z91.040 Latex allergy status; Z91.013 Allergy to seafood; Z91.09 Other allergy status, other than to drugs and biological substances; Z79.51 Long term (current) use of inhaled steroids; Z79.2 Long term (current) use of antibiotics; Z79.899 Other long term (current) drug therapy
CPT/HCPCS: 36415; 74177; 80047; 80076; 81001; 83690; 85025; 96374; 99284; J1885; Q9967

== ENCOUNTER → 2024-09-11 | Outpatient (CLI) | payer OTHER ==
[~2024-09-11] MED LIST changes: -ADV250INH INH; +ADVA1AER9 INH; +DIPH1TAB81; +DULO-34; +ESTRADIOL; +XIFA550T
== END ==
LOC: M PAIN 11:30
PROVIDERS: ATTEND Nurse Practitioner Family
DX: M79.10 Myalgia, unspecified site (principal); G89.29 Other chronic pain; Z79.51 Long term (current) use of inhaled steroids; Z79.899 Other long term (current) drug therapy; Z87.891 Personal history of nicotine dependence; Z88.1 Allergy status to other antibiotic agents; Z88.8 Allergy status to other drugs, medicaments and biological substances; Z91.013 Allergy to seafood; Z91.040 Latex allergy status

== ENCOUNTER → 2025-05-27 | Outpatient (CLI) | payer MEDICARE ==
[~2025-05-27] MED LIST changes: +ACYC-438; +ACYC-438 PO; -ACYC1TAB; -ACYC1TAB PO
== END ==
LOC: M WHC 13:59
PROVIDERS: ATTEND Advanced Practice Midwife
DX: Z12.31 Encounter for screening mammogram for malignant neoplasm of breast (principal); R92.323 Mammographic fibroglandular density, bilateral breasts

== ENCOUNTER 2025-06-04 11:10 | Emergency (ER) | payer MEDICAID, MEDICARE, OTHER ==
[~2025-06-04] VITALS: Ht 154.9 cm; Wt 83.4 kg
[2025-06-04] MEDS: MORPHINE 4 MG/ML 1 ML VIAL IV ONE (13:22)
[2025-06-04 13:28] LABS: BASO # 0.0 10^3/uL (0.0-0.2); BASO % 0.3 % (0.0-1.0); EOS # 0.0 10^3/uL (0.0-0.5); EOS % 0.6 % (0.0-3.0); LYMPH # 2.2 10^3/uL (1.5-5.0); LYMPH % 32.3 % (24.0-44.0); MONO # 0.4 10^3/uL (0.0-0.8); MONO % 6.6 % (2.0-8.0); NEUTROPHILS # 4.0 10^3/uL (1.5-8.5); NEUTROPHILS % 59.9 % (36.0-66.0); PLATELET COUNT, AUTOMATED 222 10^3/uL (150-450)
[2025-06-04 13:46] LABS: INR 0.88
[2025-06-04 13:49] LABS: CK-MB VALUE MASS 1.7 NG/ML (<3.6)
[2025-06-04 13:53] LABS: CALCIUM LEVEL 8.9 MG/DL (8.3-10.6); CARBON DIOXIDE LEVEL 30 MMOL/L (20-31); CHLORIDE LEVEL 98 MMOL/L (98-107); CREATININE FOR GFR 0.59 MG/DL (0.55-1.30); GLOMERULAR FILTRATION RATE > 90.0 (>45); POTASSIUM SERUM 3.7 MMOL/L (3.5-5.1); SODIUM LEVEL 136 MMOL/L (136-145)
[2025-06-04 14:19] LABS: CPK CREATINE PHOSPHOKINASE 76 U/L (34-145); MB/CK RELATIVE INDEX 2.23 (< OR =4)
[2025-06-04 14:54] LABS: CK-MB VALUE MASS 1.6 NG/ML (<3.6)
[2025-06-04 14:57] LABS: CPK CREATINE PHOSPHOKINASE 63.0 U/L (34-145); MB/CK RELATIVE INDEX 2.53 (< OR =4)
[2025-06-04] MEDS ORDERED: HYDR-3713 PO (15:15)
[2025-06-04 15:27] VITALS: BP 110/61; TEMP 96.5; O2SAT 96
== END 2025-06-04 15:46 | disposition home or self-care (01) ==
LOC: M ED 11:10
DX: M25.512 Pain in left shoulder (principal); I45.81 Long QT syndrome; K58.9 Irritable bowel syndrome, unspecified; K21.9 Gastro-esophageal reflux disease without esophagitis; G47.33 Obstructive sleep apnea (adult) (pediatric); M79.7 Fibromyalgia; J45.909 Unspecified asthma, uncomplicated; Z87.891 Personal history of nicotine dependence; Z88.1 Allergy status to other antibiotic agents; Z88.5 Allergy status to narcotic agent; Z88.8 Allergy status to other drugs, medicaments and biological substances; Z91.013 Allergy to seafood; Z91.040 Latex allergy status; Z91.09 Other allergy status, other than to drugs and biological substances; Z79.51 Long term (current) use of inhaled steroids; Z79.1 Long term (current) use of non-steroidal anti-inflammatories (NSAID); Z79.899 Other long term (current) drug therapy

== ENCOUNTER → 2025-07-10 | Outpatient (CLI) | payer MEDICAID, MEDICARE ==
[~2025-07-10] MED LIST changes: +BUPR-363 PO; -BUPR75TA5 PO; +HYDR-3713 PO
== END ==
LOC: M PLARAD 14:10
PROVIDERS: ATTEND Orthopaedic Surgery
DX: M25.512 Pain in left shoulder (principal); M75.22 Bicipital tendinitis, left shoulder; M25.412 Effusion, left shoulder; M75.52 Bursitis of left shoulder

== ENCOUNTER → 2025-08-14 | Outpatient (CLI) | payer MEDICARE | LOC: M RAD 15:01 | PROVIDERS: ATTEND Orthopaedic Surgery | DX: M54.12 Radiculopathy, cervical region (principal); M25.512 Pain in left shoulder ==

== ENCOUNTER → 2025-08-15 | Outpatient (CLI) | payer MEDICARE ==
[2025-08-15 11:23] LABS: BASO # 0.0 10^3/uL (0.0-0.2); BASO % 0.3 % (0.0-1.0); EOS # 0.1 10^3/uL (0.0-0.5); EOS % 1.1 % (0.0-3.0); LYMPH # 1.3 10^3/uL (1.5-5.0); LYMPH % 17.6 % (24.0-44.0); MONO # 0.4 10^3/uL (0.0-0.8); MONO % 5.2 % (2.0-8.0); NEUTROPHILS # 5.7 10^3/uL (1.5-8.5); NEUTROPHILS % 75.5 % (36.0-66.0); PLATELET COUNT, AUTOMATED 205 10^3/uL (150-450)
[2025-08-15 11:37] LABS: ESTIMATED AVERAGE GLUCOSE 146.0 MG/DL (60-110)
[2025-08-15 11:55] LABS: ALT/SGPT 25 U/L (7.0-40); AST/SGOT 27 U/L (<34); CALCIUM LEVEL 8.6 MG/DL (8.3-10.6); CARBON DIOXIDE LEVEL 29 MMOL/L (20-31); CHLORIDE LEVEL 103 MMOL/L (98-107); CHOLESTEROL LEVEL 161 MG/DL (<200); CHOLESTEROL RISK RATIO 1.72 (<5); CREATININE FOR GFR 0.63 MG/DL (0.55-1.30); GLOMERULAR FILTRATION RATE > 90.0 (>45); LDL CHOLESTEROL 44.9 MG/DL (<100); NON-HDL-C 67.9 MG/DL; POTASSIUM SERUM 4.1 MMOL/L (3.5-5.1); SODIUM LEVEL 143 MMOL/L (136-145); TRIGLYCERIDES LEVEL 115 MG/DL (<150)
[2025-08-15 11:57] LABS: TOTAL 25(OH) VITAMIN D 63.7 NG/ML (20.0-100.0); VITAMIN B12 LEVEL 1155 PG/ML (211-911)
== END ==
LOC: M LAB 11:01
PROVIDERS: ATTEND Student in an Organized Health Care Education/Training Program
DX: Z00.00 Encounter for general adult medical examination without abnormal findings (principal); Z79.899 Other long term (current) drug therapy